=== PATIENT | male | born 1945 | race Caucasian/White ===

== ENCOUNTER 2017-01-19 15:41 | Inpatient (IN) | payer OTHER ==
[2017-01-19] VITALS (8 sets, daily range): BP systolic 100–161; BP diastolic 64–87; PULSE 63–83; TEMP 36.4–37; O2SAT 92–97; Ht 170.2 cm; Wt 66.3 kg
[~2017-01-19] VITALS: Ht 170.2 cm; Wt 66.3 kg
[~2017-01-19 15:41] MED LIST: MULT-506 PO
[2017-01-19] MEDS ORDERED: ASPIRIN 324 MG CHEW PO STA (15:57)
[2017-01-19] MEDS ORDERED: NITROGLYCERIN 0.4 MG SL PER TAB CHARGE SL STA ×3 (16:15→16:50)
--- NOTE | 2017-01-19 16:17 | EMERGENCY ROOM VISIT NOTE ---
History Report prepared by Jessica: Cecy Kinney Under the Supervision of: Dr. Mikel Wolf M.D. 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 He notes crushing chest pain when he takes a deep breath. He currently rates his pain an 8/10 in severity. He notes mild 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 He denies chest injuries, nausea, vomiting. He notes a history of CAD and rheumatic fever. He denies taking any medication for his pain. He denies a history of blood clots. He notes having chest pain before, though not with 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 He states that he needs a heart valve replacement surgery. He regularly sees a senior maintenance machinist, Dr. Milton. He notes that he has not been able to get the surgery done, because of his 's medical needs. He states that his three days ago. He notes a heart murmur. His PCP is Dr. Burns. He has NKDA. He denies taking any aspirin. 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 Review of Systems See HPI for pertinent positives & negatives. A total of 10 systems reviewed and were otherwise negative. Past Medical & Surgical Medical Problems: (1) Aortic stenosis (2) Dyslipidemia (3) Nasopharyngeal carcinoma Surgical Problems: (1) H/O shoulder surgery (2) History of cataract surgery (3) History of tonsillectomy Old medical records were reviewed. Nurse's notes were reviewed and I agree with. Family History No pertinent family history reported. Social History Smoking Status: Former Smoker Alcohol Use: none Drug Use: none Housing Status: lives alone Occupation Status: employed Current/Historical Medications Scheduled Atorvastatin (Atorvastatin Calcium), 20 MG PO DAILY Multivitamin (Multivitamin), 1 TAB PO NOON Allergies Coded Allergies: No Known Allergies (Verified , 03/19/15) Physical Exam Vital Signs Date Time Temp Pulse Resp B/P (MAP) Pulse Ox O2 Delivery O2 Flow Rate FiO2 01/19/17 17:35 37.0 84 21 119/76 94 01/19/17 17:16 84 21 94 01/19/17 17:11 88 15 96 01/19/17 17:01 119/76 01/19/17 16:57 128/76 01/19/17 16:53 112/72 01/19/17 16:41 88 93 01/19/17 16:36 161/95 01/19/17 16:21 89 01/19/17 16:20 99 Room Air 01/19/17 16:11 95 16 01/19/17 15:44 37.0 82 20 181/82 99 Room Air Physical Exam General: Uncomfortably appearing older male in no acute distress. Complains of central chest pain. HEENT: Normal cephalic atraumatic. Pupils are equal round and reactive to light. Extraocular movements are intact. Oropharynx is pink with moist mucous membranes. No swelling of the mouth lips or tongue. Neck: Supple with a midline trachea. No meningeal signs or stiffness, no JVD or bruits. No Stridor. Chest: Clear to auscultation bilaterally. No wheezes or rhonchi. No increased work of breathing. No acute respiratory distress. Heart: regular rate and rhythm. Abdomen: Soft nontender, nondistended without rebound guarding or rigidity. Extremities: No cyanosis clubbing or edema. No calf tenderness or assymetry Spine/Back. Non tender to palpation. No CVA tenderness Skin: Good turgor without rashes. Neurologic exam: Cranial nerves two through 12 are intact. Motor and sensation are intact and symmetrical throughout. Medical Decision & Procedures ER Provider Diagnostic Interpretation: Radiology results as stated below per my review and radiologist interpretation: CHEST ONE VIEW PORTABLE HISTORY: 71 years-old Male CHEST PAIN acute atypical chest pain COMPARISON: Chest radiograph 09/14/2013 TECHNIQUE: Portable AP view of the chest FINDINGS: Cardiomediastinal and hilar silhouettes are within normal limits. Atherosclerosis of the aorta. No pneumothorax, pleural effusion, focal airspace consolidation or overt pulmonary edema. Bones of the chest appear grossly intact. Degenerative changes are seen within the shoulders and spine. IMPRESSION: No acute cardiopulmonary process. The above report was generated using voice recognition software. It may contain grammatical, syntax or spelling errors. Electronically signed by: Raul Cloud M.D. 01/19/2017 4:38 PM Dictated Date/Time: 01/19/2017 4:37 PM Laboratory Results 01/19/17 16:18 Red Blood Count 5.39, Mean Corpuscular Volume 88.5, Mean Corpuscular Hemoglobin 31.7, Mean Corpuscular Hemoglobin Concent 35.8, Mean Platelet Volume 9.5, Neutrophils (%) (Auto) 73.2, Lymphocytes (%) (Auto) 12.2, Monocytes (%) (Auto) 13.1, Eosinophils (%) (Auto) 0.9, Basophils (%) (Auto) 0.2, Neutrophils # (Auto ) 5.86, Lymphocytes # (Auto) 0.98, Monocytes # (Auto) 1.05, Eosinophils # (Auto ) 0.07, Basophils # (Auto) 0.02 01/19/17 16:18 Test 01/19/17 16:18 01/19/17 16:25 White Blood Count 8.01 K/uL (4.8-10.8) Red Blood Count 5.39 M/uL (4.7-6.1) Hemoglobin 17.1 g/dL (14.0-18.0) Hematocrit 47.7 % (42-52) Mean Corpuscular Volume 88.5 fL (80-100) Mean Corpuscular Hemoglobin 31.7 pg (25-34) Mean Corpuscular Hemoglobin Concent 35.8 g/dl (32-36) Platelet Count 209 K/uL (130-400) Mean Platelet Volume 9.5 fL (7.4-10.4) Neutrophils (%) (Auto) 73.2 % Lymphocytes (%) (Auto) 12.2 % Monocytes (%) (Auto) 13.1 % Eosinophils (%) (Auto) 0.9 % Basophils (%) (Auto) 0.2 % Neutrophils # (Auto) 5.86 K/uL (1.4-6.5) Lymphocytes # (Auto) 0.98 K/uL (1.2-3.4) Monocytes # (Auto) 1.05 K/uL (0.11-0.59) Eosinophils # (Auto) 0.07 K/uL (0-0.5) Basophils # (Auto) 0.02 K/uL (0-0.2) RDW Standard Deviation 45.1 fL (36.4-46.3) RDW Coefficient of Variation 13.9 % (11.5-14.5) Immature Granulocyte % (Auto) 0.4 % Immature Granulocyte # (Auto) 0.03 K/uL (0.00-0.02) Prothrombin Time 10.2 SECONDS (9.0-12.0) Prothromb Time International Ratio 1.0 (0.9-1.1) Activated Partial Thromboplast Time 30.6 SECONDS (21.0-31.0) Partial Thromboplastin Ratio 1.2 D-Dimer 580 ug/L FEU (0-500) Anion Gap 7.0 mmol/L (3-11) Est Creatinine Clear Calc Drug Dose 47.6 ml/min Estimated GFR () 71.8 Estimated GFR (Non- 61.9 BUN/Creatinine Ratio 9.9 (10-20) Calcium Level 9.4 mg/dl (8.5-10.1) Total Bilirubin 0.5 mg/dl (0.2-1) Direct Bilirubin 0.2 mg/dl (0-0.2) Aspartate Amino Transf (AST/SGOT) 23 U/L (15-37) Alanine Aminotransferase (ALT/SGPT) 20 U/L (12-78) Alkaline Phosphatase 89 U/L (45-117) Total Creatine Kinase 118 U/L (39-308) Creatine Kinase MB 3.3 ng/ml (0.5-3.6) Creatine Kinase MB Ratio 2.8 (0-3.0) Total Protein 8.0 gm/dl (6.4-8.2) Albumin 3.5 gm/dl (3.4-5.0) Lipase 245 U/L (73-393) Bedside Troponin I < 0.030 ng/ml (0-0.045) Laboratory studies as stated above per my review. Medications Administered Medications (Trade) Dose Ordered Sig/Nestor Route Start Time Stop Time Status Last Admin Dose Admin Aspirin (Aspirin Chew) 324 mg NOW STAT PO 01/19/17 15:57 01/19/17 15:59 DC 01/19/17 16:07 324 MG Nitroglycerin (Nitrostat Tab) 0.4 mg NOW STAT SL 01/19/17 16:25 12/13/17 16:26 DC 01/19/17 16:25 0.4 MG Nitroglycerin (Nitrostat Tab) 0.4 mg NOW STAT SL 01/19/17 16:50 01/19/17 16:51 DC 01/19/17 16:50 0.4 MG ECG Indication: chest pain Rate (beats per minute): 94 Rhythm: normal sinus Findings: LBBB, other (J point elevation) Change: Rate has increased when compared to 09/10/2013. Repeat ECG shows NSR 89 with findings: LBBB and J point elevation. It is unchanged from previous. ED Course 1550: Past medical records reviewed. The patient was evaluated in room B2, and a complete history and physical examination were performed. 1557: Ordered Aspirin 324 mg PO 1615: Ordered Nitroglycerin 0.4 mg SL 1622: I spoke with Dr. Muhammad, senior maintenance machinist. We discussed the patients case. He agrees with the patient's treatment plan and recommends NTG. 1625: Ordered Nitroglycerin 0.4 mg SL 1650: Ordered Nitroglycerin 0.4 mg SL 1658: I reassessed the patient at this time. He is resting comfortably. 1710: I spoke with Dr. Gonzales, senior maintenance machinist. We discussed the patients case. He will perform an echocardiogram on the patient. 1720: I reassessed the patient. Dr. Gonzales performed an echocardiogram and feels anterior wall is not moving. I called for code Heart Alert. 1724: Dr. Eddy, cardiac interventionalist, assessed the patent. 1715: I spoke with CATHERINE Rivers. We discussed the patient's case. The patient will be evaluated by the [facility] for further management. Medical Decision Differentials include, but are not limited to; arrhythmia, PE, and pulmonary disease. This patient comes in as described above. He was placed in room B2. Here for treatment and evaluation of chest pain. He does have a history of valvular heart disease and I reviewed his records from local [facility]. He has severe aortic stenosis and is scheduled to have further evaluation and likely surgery however this is been put on hold as his was recently very ill and last week. EKG was obtained and shows a left bundle branch block which is new there is some possible ST elevation anteriorly but the J-point is up.. On his second EKG and if anything it looks better the T wave amplitude is less. He was given aspirin. I did give him a nitroglycerin per cautiously as I was concerned about reducing his preload this helped his pain somewhat and his pressure came down only a little bit. He was given a second nitroglycerin and this helped greatly is well healed with continued having some mild chest pain however chest x-ray was unremarkable. Cardiac biomarkers are not elevated and he has normal enzymes. I did discuss case with Dr. James Muhammad as well as Aliyah Park. Dr. Gonzales promptly came and saw the patient and did a bedside echo and was concerned that his anterior wall was not moving and recommended to call heart alert. I call the heart alert and the Warehouse Distribution Manager team with Dr. Eddy came over very quickly and are going to take him to the Warehouse Distribution Manager for further treatment and evaluation and intervention if necessary. Medication Reconcilliation Current Medication List: was personally reviewed by me Blood Pressure Screening Patient's blood pressure: Normal blood pressure Consults Time Called: 1618 Consulting Physician: Dr. Muhammad senior maintenance machinist. Returned Call: [address] Muhammad, senior maintenance machinist. We discussed the patients case. He agrees with the patient's treatment plan and recommends NTG. Additional Consults: Time Called: 1705 Consulted Physician: Dr. Gonzales, senior maintenance machinist Returned Call: 1710 Additional Comments: I spoke with Dr. Gonzales, senior maintenance machinist. We discussed the patients case. He will perform an echocardiogram on the patient. Impression Primary Impression: Acute [place] Additional Impressions: ACS (acute coronary syndrome) Aortic stenosis Precordial chest pain Left bundle branch block (LBBB) Critical Care I have personally spent greater than 45 minutes of critical care time in the direct management of this patient. This includes bedside care, interpretation of diagnostic studies, and testing, discussion with consultants, patient, and family members, and other required patient management activities. This 45 minutes is in excess of all separately billable procedures. Scribe Attestation The scribe's documentation has been prepared under my direction and personally reviewed by me in its entirety. I confirm that the note above accurately reflects all work, treatment, procedures, and medical decision making performed by me. Departure Information Dispostion Being Evaluated By Hospitalist Referrals Prudencio Burns III, M.D. (PCP) Patient Instructions My [facility] Problem Qualifiers
[2017-01-19 16:32] LABS: BASO % 0.2 %; BASO ABS # 0.02 K/uL (0-0.2); COMPLETE YES; EOS % 0.9 %; HEMATOCRIT 47.7 % (42-52); IG% 0.4 %; LYMPH % 12.2 %; LYMPH ABS # 0.98 K/uL (1.2-3.4); MEAN CELL VOLUME 88.5 fL (80-100); MEAN CORPUSCULAR HEMOGLOBIN 31.7 pg (25-34); MEAN CORPUSCULAR HGB CONC 35.8 g/dl (32-36); MEAN PLATELET VOLUME 9.5 fL (7.4-10.4); MONO % 13.1 %; NEUT % 73.2 %; PLATELET COUNT 209 K/uL (130-400); RED BLOOD COUNT 5.39 M/uL (4.7-6.1); WHITE BLOOD COUNT 8.01 K/uL (4.8-10.8)
--- NOTE | 2017-01-19 16:39 | DIAGNOSTIC IMAGING REPORT ---
CHEST ONE VIEW PORTABLE HISTORY: 71 years-old Male CHEST PAIN acute atypical chest pain COMPARISON: Chest radiograph 09/14/2013 TECHNIQUE: Portable AP view of the chest FINDINGS: Cardiomediastinal and hilar silhouettes are within normal limits. Atherosclerosis of the aorta. No pneumothorax, pleural effusion, focal airspace consolidation or overt pulmonary edema. Bones of the chest appear grossly intact. Degenerative changes are seen within the shoulders and spine. IMPRESSION: No acute cardiopulmonary process. The above report was generated using voice recognition software. It may contain grammatical, syntax or spelling errors. Electronically signed by: Raul Cloud M.D. 01/19/2017 4:38 PM Dictated Date/Time: 01/19/2017 4:37 PM
[2017-01-19 16:46] LABS: PARTIAL THROMBOPLASTIN RATIO 1.2; PROTHROMBIN TIME (PATIENT) 10.2 SECONDS (9.0-12.0)
[2017-01-19 16:49] LABS: BUN/CREATININE RATIO 9.9 (10-20); CALCIUM 9.4 mg/dl (8.5-10.1); CREATININE 1.17 mg/dl (0.60-1.40); POTASSIUM 3.9 mmol/L (3.5-5.1)
[2017-01-19 16:54] LABS: CKMB/CK RATIO 2.8 (0-3.0)
[2017-01-19] MEDS ORDERED: LPT/20 PO (16:59)
[2017-01-19] MEDS ORDERED: OPTIRAY 320 IV PRN (17:15)
[2017-01-19] MEDS ORDERED: FENTANYL CITRATE INJ 50 MCG/1 ML 2 ML VIAL ONE (17:26)
[2017-01-19] MEDS ORDERED: NiCARDipine HCL INJ 2.5 MG/ML 10 ML AMP ONE (17:26)
[2017-01-19] MEDS ORDERED: HEPARIN SOD (PORCINE) 1000 UNIT/ML 10 ML VIAL ONE (17:26)
[2017-01-19] MEDS ORDERED: NITROGLYCERIN/D5W 100MCG/ML 20ML SYR ONE (17:26)
[2017-01-19] MEDS ORDERED: MIDAZOLAM HCL 1 MG/ML 2ML VIAL ONE (17:26)
--- NOTE | 2017-01-19 17:39 | Procedure Note ---
Pre-Mod Sedation Assessment General Date of Moderate Sedation: Jan 19, 2017. Vital Signs: Vital Signs Past 12 Hours Date Time Temp Pulse Resp B/P (MAP) Pulse Ox O2 Delivery O2 Flow Rate FiO2 01/19/17 17:35 37.0 84 21 119/76 94 01/19/17 17:16 84 21 94 01/19/17 17:11 88 15 96 01/19/17 17:01 119/76 01/19/17 16:57 128/76 01/19/17 16:53 112/72 01/19/17 16:41 88 93 01/19/17 16:36 161/95 01/19/17 16:21 89 01/19/17 16:20 99 Room Air 01/19/17 16:11 95 16 01/19/17 15:44 37.0 82 20 181/82 99 Room Air Review Cardiovascular: regular rate, rhythm, no edema Abdomen: normal bowel sounds, non tender Lungs: chest non-tender, lungs clear Airway Class: III Pre-Sedation Airway Assessment Oral Cavity: WNL Able to Visualize Vocal Cords: No Short Thick Neck: No Hx of Sleep Apnea: No Smoking Status: Former Smoker Mallampati Classification: Class III ASA Classification: Class III Procedure Planning Contraindications-for Mod Sed: None Yes Notes The planned sedation has been discussed with the patient and consent obtained. I have identified the patient, determined the appropriateness of sedation and have assessed the patient immediately prior to the procedure. All medicine(s) and interventions are by my order.
[2017-01-19] MEDS ORDERED: SODIUM CHLORIDE 0.9% 1000ML 1,000 ML IV SCH (18:15)
[2017-01-19] MEDS ORDERED: ACETAMINOPHEN 325 MG TAB PO PRN (18:30)
--- NOTE | 2017-01-19 18:30 | Cardiac Catheterization ---
Procedure Note Procedure Date Jan 19, 2017. Pre-Procedure Diagnosis STEMI AUC Score 9 Post-Procedure Diagnosis Moderate CAD, Elevated Intracardiac Pressures Procedure(s) Performed Coronary Angiography, Left Heart Cath Director Of Enterprise Strategy Surjit Minute Clerk For Basic Traffic(s) Stan Estimated Blood Loss 10 Medication(s) Fentanyl, Heparin, Versed, Lidocaine 1% Summary of Findings Indication: New LBBB/Heart Alert Access: 6Fr right radial artery Catheters: [place] Findings: LM - Luminal irregularities LAD - 20% proximal, mid segment luminal irregularities, 60-70% stenosis in small apical segment; - 2nd septal with 70% focal stenosis. Circumflex - Large caliber vessel, proximal/mid luminal irregularities. - 40% stenosis in large/distal OM2; branch of OM2 with 60-70% stenosis RCA - Dominant, large caliber vessel, 40-50% ostial stenosis; 20% mid segment disease; distal luminal irregularities. LVEDP - 2 Peak to peak AV gradient -- 74 mmHg Arterial Closure: TR band Summary: 1. Mild to moderate non-obstructive coronary artery disease 2. Severe aortic stenosis (Peak to peak gradient 74 mmHg). Recommendations: Evaluation for AVR Hemodynamics Rest Ao: 121/66/90 Final Ao: 105/62/80 LV: 179/2 Recommendations valve replacement Specimens None Radiation Exposure (mGy) 1096 Contrast (mls) 70 Fluids (cc crystalloids) 50 Drains None Anesthesia Moderate Procedural Complication(s) None Disposition PCU ACC Data Cardiac Status Clinical evaluation leading to the procedure CAD Presntation: Unstable angina Anginal Classification: CCS IV Heart Failure: NYHA Class: CCS I Cardiogenic Shock w/in 24Hrs: No Cardiac Arrest w/in 24Hrs: No Imaging studies past 6 months: Yes Stress studies past 6 months: No Closure Device Percutaneous Entry Location: Radial Closure Device: Radial Band Recommendations: PCI without planned CABG Intraprocedure Events Significant Dissection: No Perforation: No
[2017-01-19] MEDS ORDERED: METOPROLOL TARTRATE 25 MG TAB PO ONE (19:00)
[2017-01-19] MEDS: SODIUM CHLORIDE 0.9% 1000ML 1,000 ML IV SCH (19:10)
[2017-01-19] MEDS ORDERED: PROMETHAZINE HCL INJ 12.5 MG in SODIUM CHLORIDE 0.9% 50ML 50 ML IV PRN (19:45)
[2017-01-19] MEDS ORDERED: ONDANSETRON INJ 2 MG/ML 2 ML VIAL IV PRN (19:45)
--- NOTE | 2017-01-19 20:17 | History and Physical ---
History & Physical Date & Time of Service: Jan 19, 2017 ~ 19:30 Chief Complaint: Chest Pain Primary Care Physician: Prudencio Burns III, M.D. History of Present Illness 71 year old male who presented to the ED with a chief complaint of chest pain. Patient has known aortic valve stenosis however has been putting off the work up due to his being sick. She unfortunately last week. Patient reports he noticed shortness of breath last evening. When he woke up this morning he reports he felt well and the shortness of breath had resolved. However later in the day he developed chest pain. He describes it as a substernal and constant. He then presented to the ED. EKG showed a new LBBB. A heart alert was called and patient was taken to the labor standards director emergently. Cath showed mild to moderate non-obstructive coronary artery disease. Symptoms are felt to be due to severe aortic stenosis. Patient is being admitted overnight with plans to transfer to [facility] in the morning for evaluation of aortic valve replacement. Patient was seen and examined post cath. He is resting in bed in no acute distress. He currently rates his chest discomfort 2/10. He denies 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 No lightheadedness or dizziness. He denies abdominal pain and nausea. No recent illnesses, fever, or chills. He denies urinary symptoms. Vitals are stable. Past Medical/Surgical History Medical Problems: (1) Aortic stenosis Status: Chronic (2) Dyslipidemia Status: Chronic (3) Nasopharyngeal carcinoma Permanent Comment: s/p chemo and radiation Status: Chronic Surgical Problems: (1) H/O shoulder surgery Status: Chronic (2) History of cataract surgery Status: Chronic (3) History of tonsillectomy Status: Chronic Family History FH: liver cancer FATHER Social History Smoking Status: Former Smoker Alcohol Use: none Immunizations History of Tetanus Vaccine?: Yes Tetanus Immunization Date: Aug 03, 2013 History of Pneumococcal: Yes Pneumococcal Date: Jul 20, 2013 Allergies Coded Allergies: No Known Allergies (Verified , 03/19/15) Home Medications Scheduled Atorvastatin (Atorvastatin Calcium), 20 MG PO DAILY Multivitamin (Multivitamin), 1 TAB PO NOON Review of Systems ROS per HPI, all other systems reviewed and negative Physical Exam Vital Signs Date Time Temp Pulse Resp B/P (MAP) Pulse Ox O2 Delivery O2 Flow Rate FiO2 01/19/17 19:30 83 120/80 (93) 01/19/17 19:15 81 119/77 (91) 94 Room Air 01/19/17 19:00 36.4 77 20 161/82 92 Room Air 01/19/17 18:55 37.0 81 20 149/81 (103) 96 Room Air 01/19/17 18:25 83 16 131/84 (100) 96 Room Air 01/19/17 18:20 Room Air 01/19/17 18:15 Room Air 01/19/17 18:12 86 16 121/85 (97) 96 Room Air 01/19/17 17:35 37.0 84 21 119/76 94 01/19/17 17:16 84 21 94 01/19/17 17:11 88 15 96 01/19/17 17:01 119/76 01/19/17 16:57 128/76 01/19/17 16:53 112/72 01/19/17 16:41 88 93 01/19/17 16:36 161/95 01/19/17 16:21 89 01/19/17 16:20 99 Room Air 01/19/17 16:11 95 16 01/19/17 15:44 37.0 82 20 181/82 99 Room Air General Appearance: WD/WN, no apparent distress Head: normocephalic, atraumatic Eyes: normal inspection, EOMI, sclerae normal ENT: + pertinent finding (MINTO; mucous membranes moist) Neck: supple, no JVD, trachea midline Respiratory/Chest: lungs clear, normal breath sounds, no respiratory distress Cardiovascular: regular rate, rhythm, no edema, normal peripheral pulses, + systolic murmur Abdomen/GI: normal bowel sounds, non tender, soft, no organomegaly Extremities/Musculoskelatal: normal inspection, no calf tenderness, normal capillary refill Neurologic/Psych: no motor/sensory deficits, alert, normal mood/affect, oriented x 3 Skin: normal color, warm/dry Diagnostics Laboratory Results Results Past 24 Hours Test 01/19/17 16:18 01/19/17 16:25 Range/Units White Blood Count 8.01 4.8-10.8 K/uL Red Blood Count 5.39 4.7-6.1 M/uL Hemoglobin 17.1 14.0-18.0 g/dL Hematocrit 47.7 42-52 % Mean Corpuscular Volume 88.5 80-100 fL Mean Corpuscular Hemoglobin 31.7 25-34 pg Mean Corpuscular Hemoglobin Concent 35.8 32-36 g/dl Platelet Count 209 130-400 K/uL Mean Platelet Volume 9.5 7.4-10.4 fL Neutrophils (%) (Auto) 73.2 % Lymphocytes (%) (Auto) 12.2 % Monocytes (%) (Auto) 13.1 % Eosinophils (%) (Auto) 0.9 % Basophils (%) (Auto) 0.2 % Neutrophils # (Auto) 5.86 1.4-6.5 K/uL Lymphocytes # (Auto) 0.98 1.2-3.4 K/uL Monocytes # (Auto) 1.05 0.11-0.59 K/uL Eosinophils # (Auto) 0.07 0-0.5 K/uL Basophils # (Auto) 0.02 0-0.2 K/uL RDW Standard Deviation 45.1 36.4-46.3 fL RDW Coefficient of Variation 13.9 11.5-14.5 % Immature Granulocyte % (Auto) 0.4 % Immature Granulocyte # (Auto) 0.03 0.00-0.02 K/uL Prothrombin Time 10.2 9.0-12.0 SECONDS Prothromb Time International Ratio 1.0 0.9-1.1 Activated Partial Thromboplast Time 30.6 21.0-31.0 SECONDS Partial Thromboplastin Ratio 1.2 D-Dimer 580 0-500 ug/L FEU Sodium Level 132 136-145 mmol/L Potassium Level 3.9 3.5-5.1 mmol/L Chloride Level 97 98-107 mmol/L Carbon Dioxide Level 28 21-32 mmol/L Anion Gap 7.0 3-11 mmol/L Blood Urea Nitrogen 12 7-18 mg/dl Creatinine 1.17 0.60-1.40 mg/dl Est Creatinine Clear Calc Drug Dose 47.6 ml/min Estimated GFR () 71.8 Estimated GFR (Non- 61.9 BUN/Creatinine Ratio 9.9 10-20 Random Glucose 94 70-99 mg/dl Calcium Level 9.4 8.5-10.1 mg/dl Total Bilirubin 0.5 0.2-1 mg/dl Direct Bilirubin 0.2 0-0.2 mg/dl Aspartate Amino Transf (AST/SGOT) 23 15-37 U/L Alanine Aminotransferase (ALT/SGPT) 20 12-78 U/L Alkaline Phosphatase 89 45-117 U/L Total Creatine Kinase 118 39-308 U/L Creatine Kinase MB 3.3 0.5-3.6 ng/ml Creatine Kinase MB Ratio 2.8 0-3.0 Total Protein 8.0 6.4-8.2 gm/dl Albumin 3.5 3.4-5.0 gm/dl Lipase 245 73-393 U/L Bedside Troponin I < 0.030 0-0.045 ng/ml Diagnostic Radiology CXR IMPRESSION: No acute cardiopulmonary process. Impression Assessment and Plan CHEST PAIN SEVERE AORTIC STENOSIS - admit to tele - patient presenting with persistent chest pain that started today; in the ED, patient was found to have a new LBBB - heart alert was called and patient was taken emergently to the labor standards director - per Dr. Eddy report: LM - Luminal irregularities LAD - 20% proximal, mid segment luminal irregularities, 60-70% stenosis in small apical segment; - 2nd septal with 70% focal stenosis. Circumflex - Large caliber vessel, proximal/mid luminal irregularities. - 40% stenosis in large/distal OM2; branch of OM2 with 60-70% stenosis RCA - Dominant, large caliber vessel, 40-50% ostial stenosis; 20% mid segment disease; distal luminal irregularities. Summary: 1. Mild to moderate non-obstructive coronary artery disease 2. Severe aortic stenosis (Peak to peak gradient 74 mmHg). Recommendations: Evaluation for AVR - admit overnight with plans to transfer to [facility] for AVR - no signs of volume overload - beta reggie started by cardiology HLD - continue statin DVT PROPHYLAXIS - SCDs due to recent procedure DISPO - In my clinical judgment this beneficiary meets acute admission criteria, established by [facility], that includes being hospitalized through two midnights. - plans for transfer to [facility] for evaluation for AVR ADDENDUM: This is a 71 year old male with a PMH of severe aortic stenosis, HLD presents secondary to severe chest pain. As per patient, his on Tuesday, 01/16. He was doing fine until the evening of 01/18. In the morning of 01/19, his chest pain became severe and he presented to the ER. EKG suggested possible new LBBB. A heart alert was called and patient taken straight to the labor standards director. In the labor standards director, there was some CAD disease noted, but no intervention performed, recommended medical management and management of severe aortic stenosis. He was brought back to tele and an external defibrillator pad placed. He is now comfortable and no chest pain. 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 Y/N: Yes Risk Level: Moderate
[2017-01-19] MEDS ORDERED: PNEUMOCOCCAL ADMINISTRATION CHARGE ONE (21:15)
[2017-01-19] MEDS ORDERED: INFLUENZA ADMINISTRATION CHARGE ONE (21:15)
[2017-01-19] MEDS ORDERED: PNEUMOCOCCAL POLYSACCHARIDES 25 MCG/0.5 ML VIAL/SYR IM. ONE (21:15)
[2017-01-19] MEDS ORDERED: INFLUENZA VACCINE HIGH DOSE 65+ 0.5 ML SYR IM. ONE (21:15)
[2017-01-19] MEDS: METOPROLOL TARTRATE 25 MG TAB PO SCH (23:27)
[2017-01-20] VITALS (7 sets, daily range): BP systolic 112–144; BP diastolic 64–85; PULSE 61–73; TEMP 36.7–37.1; O2SAT 96–97
[2017-01-20] MEDS: SODIUM CHLORIDE 0.9% 1000ML 1,000 ML IV SCH (05:27)
[2017-01-20 06:08] LABS: MEAN CELL VOLUME 89.2 fL (80-100); MEAN CORPUSCULAR HEMOGLOBIN 30.9 pg (25-34); MEAN CORPUSCULAR HGB CONC 34.7 g/dl (32-36); MEAN PLATELET VOLUME 9.4 fL (7.4-10.4); PLATELET COUNT 195 K/uL (130-400); RED BLOOD COUNT 4.82 M/uL (4.7-6.1); WHITE BLOOD COUNT 7.18 K/uL (4.8-10.8)
[2017-01-20] MEDS: METOPROLOL TARTRATE 25 MG TAB PO SCH ×2 (06:21→12:11)
[2017-01-20 06:34] LABS: CALCIUM 8.2 mg/dl (8.5-10.1); CREATININE 0.8 mg/dl (0.60-1.40); POTASSIUM 3.9 mmol/L (3.5-5.1)
[2017-01-20] MEDS ORDERED: MULTIVITAMIN TAB PO SCH (09:00)
[2017-01-20] MEDS ORDERED: ASPIRIN 81 MG ECTAB PO SCH (09:00)
[2017-01-20] MEDS ORDERED: ATORVASTATIN 20 MG TAB PO SCH ×2 (09:00)
--- NOTE | 2017-01-20 09:41 | ECHOCARDIOGRAM REPORT ---
*NOTICE TO RECEIVING [employer] This information is strictly Confidential and protected under [place] law. [place] law prohibits you from making any further disclosure of this information unless further disclosure is expressly permitted by the written consent of the person to whom it pertains or is authorized by law. A general authorization for the release of medical or other information is not sufficient for this purpose. Hospital accepts no responsibility if the information is made available to any other person, INCLUDING THE PATIENT. Interpretation Summary * Conclusions -- * Mildly dilated LV chamber size and mild concentric LVH. * Severely reduced LV systolic function with abnormal septal wall motion consistent with conduction abnormality and global hypokinesis, EF 30-35%. * Grade I diastolic dysfunction. * Severely calcified aortic valve with severely reduced systolic opening. Unable to determine number of leaflets. Severe aortic stenosis is present with a Vmax of 4.6 m/s, SERGIO of 0.5 cm2 and PG max of 80 mmHg. However, stenosis maybe falsely lowered due to reduced systolic function. * There is mild mitral annular calcification. The mitral valve leaflets appear thickened, but open well. There is mild mitral regurgitation. There is mild mitral stenosis. * Mild left atrial enlargement. Procedure Details * A complete two-dimensional transthoracic echocardiogram was performed (2D, M-mode, Doppler and color flow Doppler). Left Ventricle * The left ventricle is mildly dilated. * There is mild concentric left ventricular hypertrophy. * Ejection Fraction = 30-35%. * Left ventricular systolic function is severely reduced. * Septal motion is consistent with conduction abnormality. * There is moderate global hypokinesis of the left ventricle. Right Ventricle * The right ventricular cavity size is normal (basal dimension <4.2 cm in right ventricular apical 4-chamber view). * The right ventricular systolic function is normal as assessed by tricuspid annular plane systolic excursion (TAPSE) (normal >1.5 cm). Atria * The left atrial size is normal. * Right atrial size is normal. * No ASD detected; PFO is not assessed. Mitral Valve * There is mild mitral annular calcification. * The mitral valve leaflets appear thickened, but open well. * There is mild mitral stenosis. * There is mild mitral regurgitation. Tricuspid Valve * The tricuspid valve is normal in structure and function. Aortic Valve * Severely calcified aortic valve with severely reduced systolic opening. Unable to determine number of leaflets. Severe aortic stenosis is present with a Vmax of 4.6 m/s, SERGIO of 0.5 cm2 and PG max of 80 mmHg. However, stenosis maybe falsely lowered due to reduced systolic function. Pulmonic Valve * The pulmonary valve is not well seen, but the Doppler examination is normal without significant regurgitation or stenosis. Great Vessels * The aortic root is normal size. Pericardium/Pleural * There is no pericardial effusion. Left Ventricular Diastolic Function * Grade I diastolic dysfunction, (abnormal relaxation pattern). MMode 2D Measurements and Calculations IVSd 1.0 cm IVSs 1.3 cm LVIDd 4.5 cm LVIDs 3.6 cm LVPWd 1.0 cm LVPWs 1.2 cm IVS/LVPW 1.0 FS 20.4 % EDV(Teich) 93.0 ml ESV(Teich) 54.1 ml EF(Teich) 41.9 % EDV(cubed) 91.9 ml ESV(cubed) 46.3 ml EF(cubed) 49.6 % % IVS thick 23.8 % % LVPW thick 21.7 % LV mass(C)d 160.6 grams LV mass(C)dI 95.4 grams/m\S\2 LV mass(C)s 153.1 grams LV mass(C)sI 90.9 grams/m\S\2 SV(Teich) 38.9 ml SI(Teich) 23.1 ml/m\S\2 SV(cubed) 45.6 ml SI(cubed) 27.1 ml/m\S\2 Ao root diam 3.0 cm Ao root area 6.9 cm\S\2 LA dimension 3.4 cm LA/Ao 1.1 LVOT diam 2.0 cm LVOT area 3.3 cm\S\2 EDV(MOD-sp4) 144.0 ml ESV(MOD-sp4) 97.0 ml EF(MOD-sp4) 32.6 % EDV(MOD-sp2) 146.0 ml ESV(MOD-sp2) 100.0 ml EF(MOD-sp2) 31.5 % SV(MOD-sp4) 47.0 ml SI(MOD-sp4) 27.9 ml/m\S\2 SV(MOD-sp2) 46.0 ml SI(MOD-sp2) 27.3 ml/m\S\2 Doppler Measurements and Calculations MV E max arielle 107.5 cm/sec MV A max arielle 127.4 cm/sec MV E/A 0.84 MV P1/2t max arielle 99.8 cm/sec MV P1/2t 106.7 msec MVA(P1/2t) 2.1 cm\S\2 MV dec slope 273.8 cm/sec\S\2 MV dec time 0.17 sec Ao V2 max 446.6 cm/sec Ao max PG 79.8 mmHg Ao max PG (full) 78.0 mmHg Ao V2 mean 313.2 cm/sec Ao mean PG 46.1 mmHg Ao mean PG (full) 45.1 mmHg Ao V2 VTI 105.1 cm SERGIO(I,A) 0.55 cm\S\2 SERGIO(I,D) 0.55 cm\S\2 SERGIO(V,A) 0.50 cm\S\2 SERGIO(V,D) 0.50 cm\S\2 AI max arielle 343.3 cm/sec AI max PG 47.2 mmHg AI dec slope 229.5 cm/sec\S\2 AI P1/2t 438.1 msec LV V1 max PG 1.9 mmHg LV V1 mean PG 0.97 mmHg LV V1 max 68.4 cm/sec LV V1 mean 46.8 cm/sec LV V1 VTI 17.5 cm SV(Ao) 727.1 ml SI(Ao) 431.8 ml/m\S\2 SV(LVOT) 57.7 ml SI(LVOT) 34.3 ml/m\S\2 PA V2 max 138.9 cm/sec PA max PG 7.7 mmHg TR max arielle 226.8 cm/sec
[2017-01-20] MEDS ORDERED: OPTIRAY 320 IV PRN (10:00)
--- NOTE | 2017-01-20 10:10 | Hospitalist Progress Note ---
Hospitalist Progress Note Date of Service Jan 20, 2017. (Susan Park CRNP) Subjective Patient seen and examined. Reports chest pain has resolved however is having mid back pain. Describes it as deep. Denies 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 No lightheadedness or dizziness. Denies abdominal pain and nausea. (Susan Park CRNP) Objective Vital Signs Date Time Temp Pulse Resp B/P (MAP) Pulse Ox O2 Delivery O2 Flow Rate FiO2 01/20/17 08:07 37.0 68 20 138/64 (88) 96 Room Air 01/20/17 06:20 112/70 (84) 01/20/17 04:00 Room Air (Susan Park CRNP) Physical Exam General Appearance: WD/WN, no apparent distress Respiratory/Chest: lungs clear, normal breath sounds, no respiratory distress Cardiovascular: regular rate, rhythm, no edema, + systolic murmur Abdomen: normal bowel sounds, non tender, soft Neurologic/Psychiatric: no motor/sensory deficits, alert, oriented x 3 Skin: normal color, warm/dry (Susan Park CRNP) Laboratory Results Item Value Date Time White Blood Count 7.18 K/uL 01/20/17 0517 Hemoglobin 14.9 g/dL 01/20/17 0517 Hematocrit 43.0 % 01/20/17 0517 Platelet Count 195 K/uL 01/20/17 0517 Sodium Level 134 mmol/L L 01/20/17 0517 Potassium Level 3.9 mmol/L 01/20/17 0517 Blood Urea Nitrogen 10 mg/dl 01/20/17 0517 Creatinine 0.80 mg/dl # 01/20/17 0517 (Susan Park CRNP) Diagnostic Results ECHO: Mildly dilated LV chamber size and mild concentric LVH. * Severely reduced LV systolic function with abnormal septal wall motion consistent with conduction abnormality and global hypokinesis, EF 30-35%. * Grade I diastolic dysfunction. * Severely calcified aortic valve with severely reduced systolic opening. Unable to determine number of leaflets. Severe aortic stenosis is present with a Vmax of 4.6 m/s, SERGIO of 0.5 cm2 and PG max of 80 mmHg. However, stenosis maybe falsely lowered due to reduced systolic function. * There is mild mitral annular calcification. The mitral valve leaflets appear thickened, but open well. There is mild mitral regurgitation. There is mild mitral stenosis. * Mild left atrial enlargement (Susan Park CRNP) Assessment and Plan CHEST PAIN SEVERE AORTIC STENOSIS - patient presented to the ED on 01/19 with persistent chest pain; was found to have a new LBB - heart alert was called and patient was taken emergently to the bottle label inspector - patient is reporting mid back pain today; will obtain CT angio to rule out dissection - per Dr. Eddy cath report: LM - Luminal irregularities LAD - 20% proximal, mid segment luminal irregularities, 60-70% stenosis in small apical segment; - 2nd septal with 70% focal stenosis. Circumflex - Large caliber vessel, proximal/mid luminal irregularities. - 40% stenosis in large/distal OM2; branch of OM2 with 60-70% stenosis RCA - Dominant, large caliber vessel, 40-50% ostial stenosis; 20% mid segment disease; distal luminal irregularities. Summary: 1. Mild to moderate non-obstructive coronary artery disease 2. Severe aortic stenosis (Peak to peak gradient 74 mmHg). Recommendations: Evaluation for AVR - echo as above - no signs of volume overload - beta reggie started by cardiology yesterday - continue ASA and statin DVT PROPHYLAXIS - SCDs due to recent procedure DISPO - pending - likely transfer to [facility] for evaluation for AVR (Susan Park CRNP) ATTENDING NOTE : pt seen and examined, no complain of chest pain or SOB today in agreement for transfer to [place] for Cardiothoracic surgery for aortic valve replacement in agreement with above evaluation by Susan ALEXANDER 71 Yo m admitted with Chest pain , EKG shows new LBBB , code heart alert was called s/p emergent Cardiac cath ; shows severe Aortic stenosis appreciate input form Cardiology pt is being transferred to [facility] for evaluation of Aortic valve repair (Sweta Saeed M.D.)
--- NOTE | 2017-01-20 10:25 | CARDIOLOGY CONSULTATION ---
DATE OF CONSULTATION: 01/19/2017 CONSULTATION REQUESTED BY: Dr. Wolf. REASON FOR CONSULTATION: Chest pain with new left bundle-branch block. HISTORY OF PRESENT ILLNESS: Mr. Dodson is a very pleasant 71-year-old gentleman who has been following closely with Dr. Milton of our cardiology clinic for his history of severe aortic stenosis. The patient presented to [facility] on 01/19/[address] Milton's office after he called with a complaint of chest pain. The patient was actually calling the office to let Dr. Milton know that his had passed and he was ready to schedule his aortic valve surgery, but he did also note on the phone that he was having chest pain and he was directed to go the Emergency Department. The patient states that approximately 02:00 p.m. yesterday, he started having severe chest pain. He states he was very busy, doing things around the house when he had severe left substernal chest pain. He described it as a pressure sensation and ranked at 8.5/10. He states that it may have been worse with deep inhalation, but he was pretty short of breath with it and states he was unable to take a deep satisfying breath. He presented to the [facility] Emergency Department, where he was found to have a new left bundle branch on EKG. He was given sublingual nitroglycerin x2 and aspirin and his pain improved from 8.5-4/10. He was seen emergently at the bedside. EKG was confirmed to be new left bundle branch block compared to previous studies. A bedside echocardiogram was performed by myself, which showed significant hypokinesis with questionable akinesis at the anterior wall. At that point, heart alert was called and he was taken emergently to cardiac catheterization lab by Dr. Eddy. Of note, the patient has a longstanding history of aortic stenosis and he was counseled previously by Dr. Milton that he will require surgery. 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 His unfortunately passed several days ago and again, he was going to let the office know that he was ready to proceed with pursuing aortic valve replacement. PAST SURGICAL HISTORY: 1. Alveoloplasty in conjunction with extraction. 2. Tonsillectomy. 3. Radiation therapy to a large tumor involving the lateral pharyngeal wall, the oropharynx, palate and nasopharynx. 4. Multiple laryngoscopies. 5. . 6. Colonoscopy. 7. Shoulder surgery. 8. Tooth extractions. 9. Cataract surgeries. MEDICAL ILLNESSES: 1. Severe aortic stenosis. 2. History of rheumatic fever as a child. 3. Likely bicuspid aortic valve. 4. 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 5. Tobacco abuse, resolved. 6. Dyslipidemia. FAMILY HISTORY: Noncontributory. SOCIAL HISTORY: The patient is a long-term smoker, quit in 2013. Denies alcohol or recreational drug use. Again, his only recently after a long ward with metastatic breast carcinoma. REVIEW OF SYSTEMS: As per HPI. All other systems reviewed and negative at this time. ALLERGIES: No known drug allergies. MEDICATIONS AN OUTPATIENT: 1. Atorvastatin 20 mg daily. 2. Multivitamin. PHYSICAL EXAMINATION: VITALS: Temperature 37, pulse 90, respiratory rate 12, and blood pressure 161/95. GENERAL: Awake, alert, and oriented x3. Mild distress. HEENT: Normocephalic and atraumatic. Pupils equal, round, and reactive to light and accommodation. Extraocular muscles intact. Anicteric sclerae. Poor dentition with a palatal prosthesis in place. NECK: No JVD and no bruit. CARDIOVASCULAR: Regular. Positive S4. Normal S1. S2 is not present. Questionable S3. Soft 3/6 mid to late systolic ejection murmur greatest at the right sternal border second intercostal space with radiation to the bilateral carotids. No rubs. PULMONARY: Poor air movement bilaterally, but clear. No rales, rhonchi, or wheezing. ABDOMEN: Bowel sounds x4. Soft. No rebound, guarding, or tenderness. No organomegaly. EXTREMITIES: No clubbing, cyanosis or edema. +2 pedal pulses bilaterally. SKIN: Warm and dry. TEST RESULTS: A 12-lead EKG performed in the Emergency Department independently reviewed at this time shows sinus rhythm at 94 beats per minute with left bundle branch block with left axis deviation and questionable anterior ST segment elevations. Left bundle branch block and elevations are new compared to previous study. Most recent echocardiogram performed on 12/2015 showed, compared to last available studies aorta velocities have increased. Normal LV chamber size with mild concentric LVH, normal LV systolic function, EF 55%-60%, mild hypokinesis of the basal anterior septal wall. Otherwise, normal wall motion. Grade 1 diastolic dysfunction. Heavily calcified aortic valve. Unable to discern number of leaflets. Severe aortic stenosis is present with the V-max of 4.6 m/s. Mild aortic regurgitation. Cardiac catheterization revealed no significant obstructive coronary artery disease with a [id number] gradient of 74 mmHg. IMPRESSION: 1. Severe symptomatic aortic stenosis. 2. New left bundle branch block. 3. Reduced LV systolic function. 4. No significant obstructive coronary artery disease. 5. Oropharyngeal carcinoma, status post chemo and radiation treatment. RECOMMENDATIONS: It was my pleasure to see Mr. Dodson in urgent consultation today. Given the patient's complaints of chest pain and new left bundle branch block, heart alert was called and proper protocol was followed. Fortunately, the catheterization shows no significant obstructive disease. So at this point, we will start the patient on low dose beta reggie and gentle IV fluids to augment his preload. A full echocardiogram will be performed. The patient will likely be transferred to [facility] for evaluation of aortic valve replacement with either open heart surgery with valve replacement or TAVR.
--- NOTE | 2017-01-20 10:48 | Cardiology Follow-Up ---
Subjective Subjective Date of Service: Jan 20, 2017. Pt evaluation today including: conversation w/ patient, physical exam, chart review, lab review, review of studies, review of inpatient medication list Additional Details: Pt seen and examined, states that he's feeling "ok". Some back pain overnight but resolved and chest pain resolved. Rather depressed and tearful at times in regards to 's recent passing but otherwise feels well. Tele reviewed: sinus rhythm without arrhythmia or significant ectopy. Problem List Medical Problems: (1) ACS (acute coronary syndrome) Status: Acute (2) Acute SC Status: Acute (3) Aortic stenosis Status: Chronic (4) Left bundle branch block (LBBB) Status: Acute (5) Precordial chest pain Status: Acute Review of Systems Respiratory: + shortness of breath, + dyspnea on exertion, No see HPI, No cough , No sputum, No wheezing, No dyspnea at rest, No hemoptysis, No problem reported Cardiac: + chest pain, No see HPI, No orthopnea, No PND, No edema, No claudication, No palpitations, No problem reported Objective Vital Signs Last Vital Signs Documentation Date Time Temp Pulse Resp B/P (MAP) Pulse Ox O2 Delivery O2 Flow Rate FiO2 01/20/17 08:07 37.0 68 20 138/64 (88) 96 Room Air Physical Exam: General Appearance: WD/WN, no apparent distress Eyes: bilateral eyes normal inspection, bilateral eyes PERRL, bilateral eyes EOMI ENT: normal ENT inspection, hearing grossly normal, pharynx normal Neck: supple, no adenopathy, thyroid normal, no JVD, no carotid bruits, trachea midline Respiratory/Chest: lungs clear, normal breath sounds, no respiratory distress Cardiovascular: regular rate, rhythm, no edema, no JVD, + systolic murmur ( soft 3/6 mid to late ricky, rsb, 2nd ics with radiation to b/l carotids. S2 is not present on exam), + gallop/S3 (?), + gallop/S4 Abdomen: normal bowel sounds, non tender, soft, no organomegaly Extremities: normal inspection, no pedal edema, no calf tenderness Neurologic/Psychiatric: clip riveter II-XII nml as tested, no motor/sensory deficits, alert, normal mood/affect, oriented x 3 Skin: normal color, warm/dry Lymphatic: no adenopathy Assessment and Plan 1. severe symptomatic aortic stenosis long standing history of severe with underlying bicuspid aortic valve and rheumatic fever as a child severe gradients persist even with deterioration of LV systolic function now symptomatic pt is ready for surgery no obstructive disease on cath will transfer to [facility] for aortic valve replacement ENT eval and recommendations will be necessary given hx of nasopharyngeal carcinoma and likely difficulty with intubation Dr. Varela has accepted patient for transfer 2. NICM secondary to severe aortic stenosis cont metoprolol hold off other meds for now for ground transfer to [facility] today
[2017-01-20] MEDS ORDERED: LPR25 PO (11:04)
[2017-01-20] MEDS ORDERED: ASPEC81 PO (11:04)
--- NOTE | 2017-01-20 11:21 | DIAGNOSTIC IMAGING REPORT ---
Study: CT angiography of the chest HISTORY: Chest and back pain. FINDINGS: Moderate atherosclerotic change thoracic aorta. Mild ectasia. No evidence for aneurysm or dissection. Origins of the great thousand and the aortic arch is unremarkable. No evidence for true aneurysm or dissection. Moderate narrowing origin celiac axis estimated 50%. Probable small meningioma anterior aspect left hepatic lobe. Lungs are considered clear. No focal infiltrative or significant nodular process. Moderate degenerative change thoracic spine. Mild cardiomegaly. IMPRESSION: 1. No evidence for aneurysm or dissection. 2. Mild atherosclerotic change of the arterial vasculature of the chest and upper abdomen. 3. Lungs are considered clear. 4. Moderate degenerative change thoracic spine. 5. No acute process. Electronically signed by: Brian Murcia M.D. 01/20/2017 11:20 AM Dictated Date/Time: 01/20/2017 11:15 AM
--- NOTE | 2017-01-20 11:23 | Discharge Instructions ---
Discharge Instructions Date of Service Jan 20, 2017. Admission Reason for Admission: Chest Pain Discharge Discharge Diagnosis / Problem: Severe Aortic Stenosis Discharge Goals Goal(s): Decrease discomfort, Improve function Activity Recommendations Activity Limitations: as noted below out of bed as tolerated, with assistance . Instructions / Follow-Up Instructions / Follow-Up transferring to [facility] for evaluation for AVR Dr. Varela has accepted patient for transfer -pt will be transferred via Ground Current Hospital Diet Patient's current hospital diet: Full Liquid Diet Discharge Diet Recommended Diet: AHA Diet (Heart Healthy) Procedures Procedures Performed: Cardiac Cath Echocardiogram CT Chest Angio Pending Studies Studies pending at discharge: no Medical Emergencies . Who to Call and When: Medical Emergencies: If at any time you feel your situation is an emergency, please call 911 immediately. . Non-Emergent Contact Non-Emergency issues call your: Primary Care Provider . . "Provider Documentation" section prepared by Susan Park. . VTE Core Measure Inpt VTE Proph given/why not?: SCD's
--- NOTE | 2017-01-20 11:37 | Discharge Summary ---
Discharge Summary Date of Service Jan 20, 2017. Discharge Summary Admission Date: Jan 19, 2017 at 18:09 Discharge Date: Jan 20, 2017 Discharge Disposition: Acute care facility Principal Diagnosis: Severe Aortic Stenosis Procedures: Cardiac Cath: LM - Luminal irregularities LAD - 20% proximal, mid segment luminal irregularities, 60-70% stenosis in small apical segment; - 2nd septal with 70% focal stenosis. Circumflex - Large caliber vessel, proximal/mid luminal irregularities. - 40% stenosis in large/distal OM2; branch of OM2 with 60-70% stenosis RCA - Dominant, large caliber vessel, 40-50% ostial stenosis; 20% mid segment disease; distal luminal irregularities. CT CHEST ANGIO IMPRESSION: 1. No evidence for aneurysm or dissection. 2. Mild atherosclerotic change of the arterial vasculature of the chest and upper abdomen. 3. Lungs are considered clear. 4. Moderate degenerative change thoracic spine. 5. No acute process. CXR IMPRESSION: No acute cardiopulmonary process. ECHO: * Mildly dilated LV chamber size and mild concentric LVH. * Severely reduced LV systolic function with abnormal septal wall motion consistent with conduction abnormality and global hypokinesis, EF 30-35%. * Grade I diastolic dysfunction. * Severely calcified aortic valve with severely reduced systolic opening. Unable to determine number of leaflets. Severe aortic stenosis is present with a Vmax of 4.6 m/s, SERGIO of 0.5 cm2 and PG max of 80 mmHg. However, stenosis maybe falsely lowered due to reduced systolic function. * There is mild mitral annular calcification. The mitral valve leaflets appear thickened, but open well. There is mild mitral regurgitation. There is mild mitral stenosis. * Mild left atrial enlargement. Consultations: Dr. Gonzales, Cardiology Dr. Eddy, Interventional Cardiology Medication Reconciliation New Medications: Aspirin (Aspirin EC Low Dose) 81 Mg Ectab 81 MG PO QAM for 30 Days Metoprolol Tartrate (Lopressor) 25 Mg Tab 12.5 MG PO Q6 for 30 Days, #60 TAB Continued Medications: Atorvastatin (Atorvastatin Calcium) 20 Mg Tab 20 MG PO DAILY Multivitamin (Multivitamin) Tab 1 TAB PO NOON, TAB Admission Information HPI (per Admitting provider): 71 year old male who presented to the ED with a chief complaint of chest pain. Patient has known aortic valve stenosis however has been putting off the work up due to his being sick. She unfortunately last week. Patient reports he noticed shortness of breath last evening. When he woke up this morning he reports he felt well and the shortness of breath had resolved. However later in the day he developed chest pain. He describes it as a substernal and constant. He then presented to the ED. EKG showed a new LBBB. A heart alert was called and patient was taken to the [facility] emergently. Cath showed mild to moderate non-obstructive coronary artery disease. Symptoms are felt to be due to severe aortic stenosis. Patient is being admitted overnight with plans to transfer to [facility] in the morning for evaluation of aortic valve replacement. Patient was seen and examined post cath. He is resting in bed in no acute distress. He currently rates his chest discomfort 2/10. He denies 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 No lightheadedness or dizziness. He denies abdominal pain and nausea. No recent illnesses, fever, or chills. He denies urinary symptoms. Vitals are stable. Physical Exam (per Admitting): General Appearance: WD/WN, no apparent distress Head: normocephalic, atraumatic Eyes: normal inspection, EOMI, sclerae normal ENT: + pertinent finding ([place]; mucous membranes moist) Neck: supple, no JVD, trachea midline Respiratory/Chest: lungs clear, normal breath sounds, no respiratory distress Cardiovascular: regular rate, rhythm, no edema, normal peripheral pulses, + systolic murmur Abdomen/GI: normal bowel sounds, non tender, soft, no organomegaly Extremities/Musculoskelatal: normal inspection, no calf tenderness, normal capillary refill Neurologic/Psych: no motor/sensory deficits, alert, normal mood/affect, oriented x 3 Skin: normal color, warm/dry Hospital Course 71 year old male with known severe aortic stenosis who presented to the ED with chest pain. Initial EKG showed a new LBBB. Heart alert was called and patient was taken emergently to the [facility]. Cath is as described above and showed mild -moderate disease not amendable to intervention. Echo showed global hypokinesis with EF 30-35% and severe aortic stenosis. Patient was started on beta reggie and aspirin. His home statin was continued. Patient also had a CT angio that was negative for dissection. Patient was admitted over night for observation. He remained stable and chest pain has resolved. Patient now has symptomatic severe aortic stenosis with cardiomyopathy. Referred to [facility] for evaluation for aortic valve replacement. 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 Likely will need ENT evaluation regarding intubation. Total time spent on discharge = 35 minutes This includes examination of the patient, discharge planning, medication reconciliation, and communication with other providers. Discharge Instructions Discharge Instructions Date of Service Jan 20, 2017. Admission Reason for Admission: Chest Pain Discharge Discharge Diagnosis / Problem: Severe Aortic Stenosis Discharge Goals Goal(s): Decrease discomfort, Improve function Activity Recommendations Activity Limitations: as noted below out of bed as tolerated, with assistance . Instructions / Follow-Up Instructions / Follow-Up transferring to [facility] for evaluation for AVR Current Hospital Diet Patient's current hospital diet: Full Liquid Diet Discharge Diet Recommended Diet: AHA Diet (Heart Healthy) Procedures Procedures Performed: Cardiac Cath Echocardiogram CT Chest Angio Pending Studies Studies pending at discharge: no Medical Emergencies . Who to Call and When: Medical Emergencies: If at any time you feel your situation is an emergency, please call 911 immediately. . Non-Emergent Contact Non-Emergency issues call your: Primary Care Provider . . "Provider Documentation" section prepared by Susan Park. . VTE Core Measure Inpt VTE Proph given/why not?: SCD's Additional Copies To Prudencio Burns III, M.D. Henry, Sheldon D., M.D.
== END 2017-01-20 17:28 | disposition short-term general hospital (02) | DRG 287 ==
LOC: C.EDB 15:42 → C.2T 18:09 → ENRESERV 18:19
PROVIDERS: ADMIT Family Medicine; ATTEND Hospitalist
PROC: 4A023N7 Measurement of Cardiac Sampling and Pressure, Left Heart, Percutaneous Approach (ICD-10-PCS; principal; 2017-01-19 17:27)
PROC: B211YZZ Fluoroscopy of Multiple Coronary Arteries using Other Contrast (ICD-10-PCS; principal; 2017-01-19 17:27)
DX: I35.0 Nonrheumatic aortic (valve) stenosis (principal); I44.7 Left bundle-branch block, unspecified; E78.5 Hyperlipidemia, unspecified; Z79.899 Other long term (current) drug therapy; Z87.891 Personal history of nicotine dependence

== ENCOUNTER 2020-05-02 08:04 | Inpatient (IN) ==
[2020-05-02] MEDS ORDERED: ALBUT/IPRATROP 3MG/0.5MG NEB 3 ML VIAL NEB STA (08:37)
--- NOTE | 2020-05-02 08:42 | Emergency Department Note ---
ED Visit Note I contributed to the care of this patient under the supervision of Dr. Naik . Resident Activity Tracking Resident Involvement: Resident Care Provided Care Provided: Adult ED
[2020-05-02 08:47] LABS: Eosinophils # (auto) 0.04 K/uL (0-0.5); Eosinophils % (auto) 0.6 %; Hemoglobin 9.8 g/dL (14.0-18.0); Immature Granulocytes # (auto) 0.03 K/uL (0.00-0.02); Immature Granulocytes % (auto) 0.4 %; Lymphocytes # (auto) 0.41 K/uL (1.2-3.4); Mean Corpuscular Hemoglobin 25.2 pg (25-34); Mean Corpuscular Hgb Conc 32.7 g/dL (32-36); Mean Corpuscular Volume 77.1 fL (80-100); Mean Platelet Volume 8.9 fL (7.4-10.4); Monocytes # (auto) 0.46 K/uL (0.11-0.59); Monocytes % (auto) 6.8 %; Neutrophils # (auto) 5.84 K/uL (1.4-6.5); Neutrophils % (auto) 86.2 %; Platelet Count 269 K/uL (130-400); RDW Coefficient of Variation 16.8 % (11.5-14.5); RDW Standard Deviation 47.8 fL (36.4-46.3); Red Blood Count 3.89 M/uL (4.7-6.1); White Blood Count 6.78 K/uL (4.8-10.8)
[2020-05-02 08:58] LABS: INR 1.1 (0.9-1.1); Partial Thromboplastin Ratio 1.2; Partial Thromboplastin Time 31.9 Seconds (21.0-31.0)
[2020-05-02 09:02] LABS: Albumin Level 2.7 gm/dl (3.4-5.0); BUN Creatinine Ratio 19.4 (10-20); Blood Urea Nitrogen 22 mg/dl (7-18); Calcium 8.9 mg/dl (8.5-10.1); Carbon Dioxide 30 mmol/L (21-32); Chloride 95 mmol/L (98-107); Creatinine Clr Calc Pharmacy 52.5 ml/min; Est GFR (African American) 73.6; Est GFR (Non-African American) 63.5; Glucose 83 mg/dl (70-99); Potassium 4.3 mmol/L (3.5-5.1); Sodium 129 mmol/L (136-145)
[2020-05-02 09:07] LABS: Alanine Aminotransferase 15 U/L (12-78); Albumin Globulin Ratio 0.6 (0.9-2); Alkaline Phosphatase 104 U/L (45-117); Aspartate Aminotransferase 21 U/L (15-37); Bilirubin,Total 0.6 mg/dl (0.2-1); Globulin 4.2 gm/dl (2.5-4.0); Total Protein 6.9 gm/dl (6.4-8.2); Troponin I < 0.015 ng/ml (0-0.045)
--- NOTE | 2020-05-02 09:31 | XRay Report ---
XR chest 1V portable CLINICAL HISTORY: hypoxia, cough COMPARISON STUDY: Chest CT January 20, 2017. FINDINGS: There are median sternotomy wires. No pneumothorax is present. There are suspected trace bi lateral pleural effusions. Mild right basilar opacities are present. Moderate bilateral airspace opac ities are noted. Interstitial thickening is also noted. There is mild cardiomegaly. Mediastinal conto urs are otherwise normal. IMPRESSION: 1. Interstitial thickening consistent with pulmonary edema. Moderate bilateral airspace opacities may reflect superimposed pneumonia or alveolar edema. Radiographic follow-up is recommended. 2. Trace bilateral pleural effusions. ACT 112: Negative or not required by law. Electronically signed by: Yayo Kay M.D. 05/02/2020 9:30 AM
[2020-05-02 09:50] LABS: Influenza A virus by PCR Negative (Neg); Influenza B virus by PCR Negative (Neg); RSV by PCR Negative (Neg); SARS CoV2 RNA(COVID-19) InHosp NEGATIVE (Negative)
[2020-05-02] MEDS ORDERED: VANCOMYCIN HCL 1,500 MG in SODIUM CHLORIDE 0.9% 500 ML IV ONE (09:58)
[2020-05-02] MEDS ORDERED: CEFEPIME 2,000 MG/20 ML VIAL IV STA (09:58)
[2020-05-02] MEDS ORDERED: VANCOMYCIN CONSULT ACTIVE PRN ×2 (09:58→12:54)
--- NOTE | 2020-05-02 10:10 | Emergency Department Note ---
History of Present Illness General Chief complaint: Shortness of Breath/Dyspnea Time Seen by Provider: 05/02/20 08:16 Source: patient Mode of arrival: EMS Limitations: no limitations History of Present Illness Provider complaint: Shortness of breath This is a 75-year-old male who presents to the ED with a chief complaint of shortness of breath for the past 6 days. He has also been weak and shaky. He denies a cough other than when he takes fluids. He states that taking fluids makes him cough. He has a history of cancer in his soft and hard palate. There is a large hole there. He states that he had his cabinet immunizations. The last one was on the . The patient reports a pain in the middle of his left back with breathing. Denies any additional symptoms. He was found by EMS to have oxygen saturations of 50% at the house. He is not on oxygen at home. Home Medications Medication Instructions Recorded Confirmed Type amlodipine 5 mg PO BID 09/18/18 05/02/20 History aspirin 81 mg PO QAM 09/18/18 05/02/20 History atorvastatin 40 mg PO PM 09/18/18 05/02/20 History hydralazine 10 mg PO TID 09/18/18 05/02/20 History nitroglycerin 0.4 mg SUBLINGUAL UD PRN 09/18/18 05/02/20 History terazosin 2 mg PO HS 09/18/18 05/02/20 History Allergies Allergy/AdvReac Type Severity Reaction Status Date / Time No Known Allergies Allergy Verified 11/01/18 07:36 Past Med/Surg History Medical History Cardiac murmur CHILD FROM RHEUMATIC FEVER Hearing deficit BILAT History of [place] (myocardial infarction) 2017/ [facility] History of nasopharyngeal cancer s/p radiation, chemo- NO PORT ANYMORE CLEARED NOV 2013 History of rheumatic fever Hyperlipidemia Hypertension Palate abnormality prosthetic palate Surgical History History of cardiac cath 2017 - [place] --> CABG - [facility]- follows w/ Dr. Milton- [facility]/ NO STENTS History of cataract surgery History of colonoscopy with polypectomy 09/25/2018. Propofol given, no issues. History of coronary artery bypass graft PT UNSURE HOW MANY VESSELS - 2016 - [facility] History of heart valve replacement [facility] 2016 History of shoulder surgery RIGHT History of tonsillectomy History of tooth extraction History of vascular access device NO LONGER HAS PORT Status post insertion of percutaneous endoscopic gastrostomy (PEG) tube PLACED DUE TO PALATE SURGERY- THEN REMOVED 2014 Social History Smoking Status: Former smoker Second Hand Exposure: No; Hx Alcohol Use: No Hx Substance Use: No Preferred Language: Kittitian Communication Ability: Effective Auto Body Customizer Required: No Beliefs That Will Affect Care: None Current Living Situation: Alone Feels Safe at Home: Yes Assistive Devices: Denture - Upper and Hearing Aid - Bilateral Review of Systems A total of 10 systems reviewed and were otherwise negative Physical Exam Vital Signs Vital Signs - 24 hr 05/02/20 08:09 05/02/20 08:45 05/02/20 08:49 Temperature 36.8 C Temperature Source Oral Pulse Rate 77 78 Pulse Rate [Apical] 78 Pulse Rate from SpO2 Sensor 78 Pulse Rhythm Regular Pulse Strength Normal Respiratory Rate 26 H 17 18 Respiratory Effort / Characteristics Labored Non-Labored Spontaneous Respiratory Depth Normal Respiratory Pattern Grunting Blood Pressure 142/74 H 131/67 Blood Pressure Mean 96 88 Blood Pressure Position Sitting Pulse Oximetry 72 L 98 98 Oxygen Delivery Method Nebulizer Oxymask Non-rebreather Oxygen Flow Rate 15 8 10 Sepsis Recent Fever Within 48 Hours No Sepsis New/Unexplained Change in Mental Status No Sepsis Action Taken by Nursing No Action Required CONSTITUTIONAL/VITAL SIGNS: Reviewed / noted above. GENERAL: Non-toxic in appearance. INTEGUMENTARY: Warm, dry, and [place]. HEAD: Normocephalic. EYES: without scleral icterus or trauma. ENT/OROPHARYNX: clear and moist. There is a hole in his soft and hard palate. LYMPHADENOPATHY/NECK: Is supple without lymphadenopathy or meningismus. RESPIRATORY: Lungs bilateral crackles. CARDIOVASCULAR: Regular rate and rhythm. GI/ABDOMEN: Soft and nontender. No organomegaly or pulsatile mass. No rebound or guarding. Normal bowel sounds. EXTREMITIES: Warm and well perfused. BACK: No CVA tenderness. NEUROLOGICAL: Intact without focal deficits. PSYCHIATRIC: normal affect. MUSCULOSKELETAL: Normally developed with good muscle tone. TRIAGE NURSING DOCUMENTATION REVIEWED. Course Administered Medications Discontinued Medications Albuterol (Albut/Ipratrop 3mg/0.5mg Neb 3 Ml Vial) 3 ml NEB NOW STA Stop: 05/02/20 08:38 Last Admin: 05/02/20 08:49 Dose: 3 ml Documented by: [id number] Critical Care Time Critical Care Time: Yes Total Critical Care Time: 30 I have personally spent 30 minutes of critical care time in the direct management of this patient. This includes bedside care, interpretation of diagnostic studies, and testing, discussion with consultants, patient, and family members, and other required patient management activities. This 30 minutes is in excess of all separately billable procedures. Medical Decision Making Differential Diagnosis The differential was considered includes acute myocardial infarction, acute coronary syndrome, myocarditis, pericarditis, pericardial effusions /tamponad, esophageal perforation, pulmonary embolism, pneumonia, pneumothorax, cardiomyopathy, congestive heart, anemia , COPD/asthma exacerbation. Medical Records Attestation: I reviewed the patient's medical records. Home Medications Current Medication List: was personally reviewed by me Laboratory Data Attestation: I reviewed the patient's lab results. Result diagrams: 05/02/20 08:15 05/02/20 08:15 Lab Results 05/02/20 05/02/20 05/02/20 Range/Units 08:15 08:15 08:15 WBC 6.78 (4.8-10.8) K/uL RBC 3.89 L (4.7-6.1) M/uL Hgb 9.8 L (14.0-18.0) g/dL Hct 30.0 L (42-52) % MCV 77.1 L (80-100) fL MCH 25.2 (25-34) pg MCHC 32.7 (32-36) g/dL RDW Std Deviation 47.8 H (36.4-46.3) fL RDW Coeff of Navid 16.8 H (11.5-14.5) % Plt Count 269 (130-400) K/uL MPV 8.9 (7.4-10.4) fL Immature Gran % (Auto) 0.4 % Neut % (Auto) 86.2 % Lymph % (Auto) 6.0 % Baker % (Auto) 6.8 % Eos % (Auto) 0.6 % Baso % (Auto) 0.0 % Neut # (Auto) 5.84 (1.4-6.5) K/uL Lymph # (Auto) 0.41 L (1.2-3.4) K/uL Baker # (Auto) 0.46 (0.11-0.59) K/uL Eos # (Auto) 0.04 (0-0.5) K/uL Baso # (Auto) 0.00 (0-0.2) K/uL Immature Gran # (Auto) 0.03 H (0.00-0.02) K/uL PT 11.0 (9.0-12.0) Seconds INR 1.1 (0.9-1.1) APTT 31.9 H (21.0-31.0) Seconds PTT Ratio 1.2 Sodium 129 L (136-145) mmol/L Potassium 4.3 (3.5-5.1) mmol/L Chloride 95 L (98-107) mmol/L Carbon Dioxide 30 (21-32) mmol/L Anion Gap 4.0 (3-11) BUN 22 H (7-18) mg/dl Creatinine 1.12 (0.6-1.4) mg/dl Est Cr Clr Drug Dosing 52.5 ml/min Est GFR ( Amer) 73.6 Est GFR (Non-Af Amer) 63.5 BUN/Creatinine Ratio 19.4 (10-20) Glucose 83 (70-99) mg/dl Lactate (0.4-2.0) mmol/L Calcium 8.9 (8.5-10.1) mg/dl Total Bilirubin 0.6 (0.2-1) mg/dl AST 21 (15-37) U/L ALT 15 (12-78) U/L Alkaline Phosphatase 104 (45-117) U/L Troponin I < 0.015 (0-0.045) ng/ml Total Protein 6.9 (6.4-8.2) gm/dl Albumin 2.7 L (3.4-5.0) gm/dl Globulin 4.2 H (2.5-4.0) gm/dl Albumin/Globulin Ratio 0.6 L (0.9-2) COVID-19 Eval Order SARS-CoV-2 (PCR) (Negative) Influenza Type A (PCR) (Neg) Influenza Type B (PCR) (Neg) RSV (RT-PCR) (Neg) 05/02/20 05/02/2005/02/21 Range/Units 08:45 08:45 08:45 WBC (4.8-10.8) K/uL RBC (4.7-6.1) M/uL Hgb (14.0-18.0) g/dL Hct (42-52) % MCV (80-100) fL MCH (25-34) pg MCHC (32-36) g/dL RDW Std Deviation (36.4-46.3) fL RDW Coeff of Navid (11.5-14.5) % Plt Count (130-400) K/uL MPV (7.4-10.4) fL Immature Gran % (Auto) % Neut % (Auto) % Lymph % (Auto) % Baker % (Auto) % Eos % (Auto) % Baso % (Auto) % Neut # (Auto) (1.4-6.5) K/uL Lymph # (Auto) (1.2-3.4) K/uL Baker # (Auto) (0.11-0.59) K/uL Eos # (Auto) (0-0.5) K/uL Baso # (Auto) (0-0.2) K/uL Immature Gran # (Auto) (0.00-0.02) K/uL PT (9.0-12.0) Seconds INR (0.9-1.1) APTT (21.0-31.0) Seconds PTT Ratio Sodium (136-145) mmol/L Potassium (3.5-5.1) mmol/L Chloride (98-107) mmol/L Carbon Dioxide (21-32) mmol/L Anion Gap (3-11) BUN (7-18) mg/dl Creatinine (0.6-1.4) mg/dl Est Cr Clr Drug Dosing ml/min Est GFR ( Amer) Est GFR (Non-Af Amer) BUN/Creatinine Ratio (10-20) Glucose (70-99) mg/dl Lactate 0.8 (0.4-2.0) mmol/L Calcium (8.5-10.1) mg/dl Total Bilirubin (0.2-1) mg/dl AST (15-37) U/L ALT (12-78) U/L Alkaline Phosphatase (45-117) U/L Troponin I (0-0.045) ng/ml Total Protein (6.4-8.2) gm/dl Albumin (3.4-5.0) gm/dl Globulin (2.5-4.0) gm/dl Albumin/Globulin Ratio (0.9-2) COVID-19 Eval Order CovFluRsv at [facility] SARS-CoV-2 (PCR) NEGATIVE (Negative) Influenza Type A (PCR) Negative (Neg) Influenza Type B (PCR) Negative (Neg) RSV (RT-PCR) Negative (Neg) Imaging Data Radiologist's Impression: XR chest 1V portable CLINICAL HISTORY: hypoxia, cough COMPARISON STUDY: Chest CT January 20, 2017. FINDINGS: There are median sternotomy wires. No pneumothorax is present. There are suspected trace bilateral pleural effusions. Mild right basilar opacities are present. Moderate bilateral airspace opacities are noted. Interstitial thickening is also noted. There is mild cardiomegaly. Mediastinal contours are otherwise normal. IMPRESSION: 1. Interstitial thickening consistent with pulmonary edema. Moderate bilateral airspace opacities may reflect superimposed pneumonia or alveolar edema. Radiographic follow-up is recommended. 2. Trace bilateral pleural effusions. ECG Data Attestation: I personally reviewed and interpreted this ECG as follows: Indication: + weakness Rate (beats per minute): 83 Rhythm: + sinus rhythm ECG Intervals/blocks: + Left bundle branch block ECG ST segments: no ST elevation ECG Findings: no PVCs MDM Narrative This is a 75-year-old male who presents to the ED with a chief complaint of shortness of breath for the last 6 days details listed above. Nonproductive cough. Weakness and shakiness. Oxygen saturations by EMS were 50% on room air at home. He does not use home oxygen. The patient has had his Covid vaccinations. Covid test today is negative. EKG shows a sinus rhythm with a left bundle branch block that is chronic. Hemoglobin is 9.8. Sodium is 129. Troponin was negative. Chest x-ray reveals findings suggestive of pneumonia and heart failure. Clinically the patient's vital signs are stable and his blood pressure is 131/67. There is no cardiomegaly. I suspect his symptoms are more likely related to pneumonia, although he does not have a fever. He does have a previous ejection fraction that was in the 35% range. BNP is pending. The patient was started on IV antibiotics. He was given an albuterol treatment. His oxygen requirements are lessened since his initial presentation. He will be seen by the hospitalist for further evaluation and care. Impression & Plan Bilateral interstitial pneumonia, CHF (congestive heart failure), Hypoxia Discharge Plan Visit Data Chief Complaint: Shortness of Breath/Dyspnea ED Provider: Son Naik ED Midlevel Provider: Johnathon Rawls Discharge Problem: Bilateral interstitial pneumonia, CHF (congestive heart failure), Hypoxia Patient Disposition: Being Evaluated by Hospitalist Forms Stand Alone Forms: [facility] Prescriptions Prescriptions: No Action atorvastatin 40 mg Tablet 40 mg PO PM RF: 0 hydralazine 10 mg Tablet 10 mg PO TID RF: 0 amlodipine 5 mg Tablet 5 mg PO BID RF: 0 aspirin 81 mg Tablet,Delayed Release (Dr/Ec) 81 mg PO QAM RF: 0 terazosin 2 mg Capsule 2 mg PO HS RF: 0 nitroglycerin 0.4 mg Tablet, Sublingual 0.4 mg sublingual UD PRN (Reason: Chest Pain) RF: 0 Referrals Referrals: Prudencio Burns MD [Primary Care Provider] -
[2020-05-02] MEDS ORDERED: FUROSEMIDE 40 MG/4 ML VIAL IV STA (11:06)
--- NOTE | 2020-05-02 11:27 | History & Physical Report ---
Date of Service May 02, 2020 Assessment & Plan (1) Hypoxia: Suspect multifactorial due to CHF and pneumonia - Continue supplemental O2 titrated to effect - Discussed with patient the possibility of BiPAP and/or intubation if worsening respiratory status and he is agreeable if needed - Check CTA of the chest to r/o PE, characterize bilateral airspace opacities further (2) CHF (congestive heart failure): Chest x-ray personally reviewed. BNP >3000. - IV Lasix 40 mg x 1 given in the ED - Check ECHO - last in 2019 (EF 55%) - Monitor Is and Os (3) Bilateral interstitial pneumonia: Procalcitonin 1.73. Blood cultures pending. Broad-spectrum empiric antibiotics started in the ED. - Continue antibiotics for now (4) Hyperlipidemia: - Continue atorvastatin as taken at home (5) Hypertension: - Continue home meds starting tomorrow - will need to monitor while pt on diuretics and may need to adjust (6) Palate abnormality: Pt on a minced and moist diet at home - will continue while admitted DVT prophylaxis: Heparin 5000 units subQ Q12 hours Code status: Full code POA: Anthony chavez Pt seen and examined with Dr. Cartagena. Plan of care discussed and as outlined above. Jelani Espinoza PA-C History of Present Illness Chief Complaint: Shortness of breath x 1 week Primary Care Provider: Prudencio Burns MD This is a 75 y/o male with a PMH of CAD s/p CABG x 1, Aortic stenosis s/p bioprosthetic AVR, intermittent LBBB, HTN, dyslipidemia, and carcinoma of the oropharynx, palate and nasophayrnx s/p cisplatin, XRT, and dental extractions with resultant palatal defect but clear of disease since 2014 who presents today with progressive SOB and weakness over the past week. Pt reports that she started to feel poorly about a week ago with malaise, fatigue and some trouble breathing. He started to feel better over the weekend but has been worsening again since Tuesday. He reports that last night, he fell at home and was unable to get up for about half an hour but eventually maneuvered himself back up before collapsing in bed. He reports not sleeping at all last night due to the breathing. This morning he apparently fell again and was unable to get up. EMS was called and he was reported to have a PulseOx in the 50s on their arrival with improvement only to the 80s on NC so he was placed on a NRB with improvement of sats to the 90s. In the ED, he is currently on 10 L of O2 via mask with a sat in the low 90s. Over the past 24 hours, pt reports he has felt horrible with fatigue, generalized weakness, chills, and increasing shortness of breath, even at rest. He has a cough but relates more to drainage - it is productive of cee sputum. Denies hemoptysis. No significant wheezing but chest feels very tight. He is a former smoker having quit seven years ago - denies prior hx of asthma, COPD or other respiratory difficulties. He denies fever but has had chills. Appetite has been stable. He has been intermittently lightheaded. Denies significant peripheral edema. He lives alone. No known sick contacts. He has received both doses of the COVID vaccine. Allergies Allergy/AdvReac Type Severity Reaction Status Date / Time No Known Allergies Allergy Verified 11/01/18 07:36 Home Medications Medication Instructions Recorded Confirmed Type amlodipine 5 mg PO BID 09/18/18 05/02/20 History aspirin 81 mg PO QAM 09/18/18 05/02/20 History atorvastatin 40 mg PO DAILY 09/18/18 05/02/20 History hydralazine 10 mg PO TID 09/18/18 05/02/20 History nitroglycerin 0.4 mg SUBLINGUAL UD PRN 09/18/18 05/02/20 History terazosin 2 mg PO HS 09/18/18 05/02/20 History Past Med/Surg History Medical History (Updated 05/02/20 @ 13:25 by Marie Espinoza PA-C) Cardiac murmur CHILD FROM RHEUMATIC FEVER CKD (chronic kidney disease) stage 3, GFR 30-59 ml/min Former tobacco use Hearing deficit BILAT History of [place] (myocardial infarction) 2016/ [facility] History of nasopharyngeal cancer s/p radiation, chemo- NO PORT ANYMORE CLEARED NOV 2013 History of rheumatic fever Hyperlipidemia Hypertension Left bundle branch block (LBBB) Palate abnormality prosthetic palate Surgical History (Updated 05/02/20 @ 13:25 by Marie Espinoza PA-C) History of cardiac cath 2017 - [place] --> CABG - [facility]- follows w/ Dr. Yoan- [facility]/ NO STENTS History of cataract surgery History of colonoscopy with polypectomy 09/25/2018. Propofol given, no issues. History of coronary artery bypass graft One vessel - 2016 - [facility] History of heart valve replacement Bioprosthetic aortic valve - 2016 History of shoulder surgery RIGHT History of tonsillectomy History of tooth extraction History of vascular access device NO LONGER HAS PORT Status post insertion of percutaneous endoscopic gastrostomy (PEG) tube PLACED DUE TO PALATE SURGERY- THEN REMOVED 2014 Family History (Updated 05/02/20 @ 13:26 by Marie Espinoza PA-C) Father Cancer Liver Cancer Social History Smoking Status: Never smoker Second Hand Exposure: No; Do You Dip or Chew Tobacco: No; Tobacco Cessation Education Requested by Patient: No Hx Alcohol Use: No Hx Substance Use: No Preferred Language: Slovak Communication Ability: Impaired Communication Ability Comment: garbled speech, sometimes hard to understand Ward Helper Required: No Beliefs That Will Affect Care: None Current Living Situation: Alone Other Information That Helps Us Care for You: No Feels Safe at Home: Yes Safety Concerns: Feels Safe At This Time Assistive Devices: Oxygen - Continuous Review of Systems Review of Systems: All systems reviewed & are unremarkable except as noted in HPI & below Constitutional: + chills, + fatigue and + weakness; no fever, no weight loss and no weight gain Eyes: no diplopia and no worsening vision Ear, Nose, Mouth, Throat: + dry mouth; no dysphagia Respiratory: + cough, + dyspnea and + pain on inspiration; no hemoptysis and no wheezing Cardiovascular: + chest pain (with deep breath), + dyspnea at rest, + dyspnea on exertion and + lightheadedness; no orthopnea, no palpitations, no syncope and no edema Gastrointestinal: no abdominal pain, no nausea, no vomiting, no diarrhea/loose stools and no blood in stools Genitourinary: no dysuria, no urinary frequency and no hematuria Musculoskeletal: + muscle weakness; no back pain, no neck pain and no myalgia Integumentary: no rash and no erythema Neurologic: + falls, + generalized weakness and + dizziness; no seizure-like activity, no headache(s) and no abnormal speech Psychiatric: no depression and no anxiety Physical Exam Constitutional: WD/WN, vitals as above + ill appearing and + thin Eyes: + anicteric sclerae ENMT: palatal defect noted, no teeth Neck: trachea midline Respiratory: + labored breathing (mildly) Auscultation: + rales (throughout) and + wheezes (occasional faint ) Increased work of breathing but able to speak in sentences - does seem to fatigue after 2-3 sentences. Pulseox dropping intermittently with conversation to upper 80s. Cardiovascular: Rate/Rhythm: regular rate and regular rhythm Vessels: posterior tibial pulses present and radial pulses present; no carotid bruit Extremities: no calf tenderness and no pedal edema +valve click Gastrointestinal (Abdomen): Inspection/Auscultation: normal bowel sounds; abdomen not distended Percussion/Palpation: abdomen soft; abdomen nontender Musculoskeletal: Head/Neck/Chest: normocephalic, head atraumatic and neck supple Skin: no rashes, warm and dry Neurologic: moves all extremities; no focal motor deficits Psychiatric: A+Ox3, euthymic affect Results & Data Results & Data ([facility]) Vital Signs (Past 12 Hours) Vital Signs Temp Pulse Pulse Resp BP Pulse Ox 05/02/20 08:49 78 18 98 05/02/20 08:45 78 17 131/67 98 05/02/20 08:09 36.8 C 77 26 H 142/74 H 72 L Laboratory Results Laboratory Results - last 24 hr 05/02/20 05/02/20 05/02/20 08:15 08:15 08:15 WBC 6.78 RBC 3.89 L Hgb 9.8 L Hct 30.0 L MCV 77.1 L MCH 25.2 MCHC 32.7 RDW Std Deviation 47.8 H RDW Coeff of Navid 16.8 H Plt Count 269 MPV 8.9 Immature Gran % (Auto) 0.4 Neut % (Auto) 86.2 Lymph % (Auto) 6.0 Ida % (Auto) 6.8 Eos % (Auto) 0.6 Baso % (Auto) 0.0 Neut # (Auto) 5.84 Lymph # (Auto) 0.41 L Ida # (Auto) 0.46 Eos # (Auto) 0.04 Baso # (Auto) 0.00 Immature Gran # (Auto) 0.03 H PT 11.0 INR 1.1 APTT 31.9 H PTT Ratio 1.2 Sodium 129 L Potassium 4.3 Chloride 95 L Carbon Dioxide 30 Anion Gap 4.0 BUN 22 H Creatinine 1.12 Est Cr Clr Drug Dosing 52.5 Est GFR ( Amer) 73.6 Est GFR (Non-Af Amer) 63.5 BUN/Creatinine Ratio 19.4 Glucose 83 Lactate Calcium 8.9 Total Bilirubin 0.6 AST 21 ALT 15 Alkaline Phosphatase 104 Troponin I < 0.015 NT-Pro-B Natriuret Pep Total Protein 6.9 Albumin 2.7 L Globulin 4.2 H Albumin/Globulin Ratio 0.6 L Procalcitonin COVID-19 Eval Order SARS-CoV-2 (PCR) Influenza Type A (PCR) Influenza Type B (PCR) RSV (RT-PCR) 05/02/20 05/02/20 05/02/20 08:45 08:45 08:45 WBC RBC Hgb Hct MCV MCH MCHC RDW Std Deviation RDW Coeff of Navid Plt Count MPV Immature Gran % (Auto) Neut % (Auto) Lymph % (Auto) Ida % (Auto) Eos % (Auto) Baso % (Auto) Neut # (Auto) Lymph # (Auto) Ida # (Auto) Eos # (Auto) Baso # (Auto) Immature Gran # (Auto) PT INR APTT PTT Ratio Sodium Potassium Chloride Carbon Dioxide Anion Gap BUN Creatinine Est Cr Clr Drug Dosing Est GFR ( Amer) Est GFR (Non-Af Amer) BUN/Creatinine Ratio Glucose Lactate 0.8 Calcium Total Bilirubin AST ALT Alkaline Phosphatase Troponin I NT-Pro-B Natriuret Pep Total Protein Albumin Globulin Albumin/Globulin Ratio Procalcitonin COVID-19 Eval Order CovFluRsv at [facility] SARS-CoV-2 (PCR) NEGATIVE Influenza Type A (PCR) Negative Influenza Type B (PCR) Negative RSV (RT-PCR) Negative 05/02/20 05/02/20 10:31 10:31 WBC RBC Hgb Hct MCV MCH MCHC RDW Std Deviation RDW Coeff of Navid Plt Count MPV Immature Gran % (Auto) Neut % (Auto) Lymph % (Auto) Ida % (Auto) Eos % (Auto) Baso % (Auto) Neut # (Auto) Lymph # (Auto) Ida # (Auto) Eos # (Auto) Baso # (Auto) Immature Gran # (Auto) PT INR APTT PTT Ratio Sodium Potassium Chloride Carbon Dioxide Anion Gap BUN Creatinine Est Cr Clr Drug Dosing Est GFR ( Amer) Est GFR (Non-Af Amer) BUN/Creatinine Ratio Glucose Lactate Calcium Total Bilirubin AST ALT Alkaline Phosphatase Troponin I NT-Pro-B Natriuret Pep 3622 H Total Protein Albumin Globulin Albumin/Globulin Ratio Procalcitonin Pending COVID-19 Eval Order SARS-CoV-2 (PCR) Influenza Type A (PCR) Influenza Type B (PCR) RSV (RT-PCR) Medications Administered Vancomycin HCl 1,500 mg/ (Sodium Chloride) 530 mls @ 200 mls/hr IV NOW ONE Stop: 05/02/20 12:36 Last Admin: 05/02/20 10:29 Dose: 200 mls/hr Documented by: [id number] Discontinued Medications Albuterol (Albut/Ipratrop 3mg/0.5mg Neb 3 Ml Vial) 3 ml NEB NOW STA Stop: 05/02/20 08:38 Last Admin: 05/02/20 08:49 Dose: 3 ml Documented by: [id number] Cefepime HCl (Maxipime) 2,000 mg in 20 mls @ 5 mls/min IV NOW STA; Protocol Stop: 05/02/20 10:01 Last Admin: 05/02/20 10:29 Dose: 5 mls/min Documented by: [id number] Code Status & VTE Plan VTE Prophylaxis Plan VTE Prophylaxis will be ordered: Yes Supervising Physician Co-Signing Physician Notes Attending addendum: The patient was seen and examined in emergency room He has been complaining of increasing shortness of breath for the last week or so associated with minimal cough Denies any wheezing , fever and/or chills, no palpitation, no abdominal pain nausea and/or vomiting On examination Moderate shortness of breath at rest Noted to have tach tachycardia and required about 10 L of nasal cannula oxygen to maintain saturation Chest-crackles all over with minimal wheezing Heart-S1-S2, difficult to hear for any murmur Abdomen-benign Extremities-trace edema bilaterally MEDIA CONSULTANT-alert, awake and oriented x3 Admission labs notable for sodium of 129, proBNP of 36[address] and prol[address] of 1.[address]. CT scan of the chest did show interstitial pulmonary edema with patchy upper lung zone prominent multisegmental airspace opacities suggestive of superimposed pneumonia with a small bilateral pleural effusion, emphysema with chronic bronchitis, EKG and troponin are unremarkable for any ACS. CTA did not show any pulmonary embolism Assessment and plan: Shortness of breath secondary to CHF/pneumonia/exacerbation of COPD(noted to have emphysema and history of smoking) Received intravenous Lasix x1 and has been getting intravenous antibiotic We will add nebulized bronchodilator and small dose of Solu-Medrol Agree with assessment and plan as outlined above by MAGGIE Gabriel Dr
[2020-05-02] MEDS ORDERED: FUROSEMIDE 40 MG/4 ML VIAL IV ONE (13:17)
[2020-05-02] MEDS ORDERED: CEFEPIME CONSULT ACTIVE PRN (13:21)
--- NOTE | 2020-05-02 13:22 | Pharmacy Report ---
Pharmacy Abx Initial Consult - Date of Service May 02, 2020 - Pharmacy Dosing Scope Date of Consult: 05/02/20 Consultation requested by: Marie Espinoza PA-C Pharmacy is consulted to initiate Vancomycin IV dosing therapy, order appropriate labs and adjust drug dose/frequency. - Subjective The patient is a 75 year old M admitted on 05/02/20 12:35. - Objective Height: 5 ft 7 in Weight: 70 kg Vital Signs (Past 12hrs): Vital Signs Temp Pulse Pulse Resp BP Pulse Ox 05/02/20 11:36 74 18 128/65 95 05/02/20 08:49 78 18 98 05/02/20 08:45 78 17 131/67 98 05/02/20 08:09 36.8 C 77 26 H 142/74 H 72 L Lab Results (24hrs): Laboratory Tests (24 Hours) 05/02/20 05/02/20 05/02/20 10:31 08:15 08:15 WBC 6.78 Neut # (Auto) 5.84 Creatinine 1.12 Est Cr Clr Drug Dosing 52.5 Procalcitonin 1.73 H Micro Results: 05/02/20 10:31 Aerobic Blood Culture - Pending Blood Anaerobic Blood Culture - Pending 05/02/20 10:31 Aerobic Blood Culture - Pending Blood Anaerobic Blood Culture - Pending - Risk Factors for Resistance * None - Assessment & Plan Assessment 75 year old M admitted secondary to possible pneumonia * Oxygen requirements at 11 L oxy mask right now * Blood cultures are pending. COVID, Influenza, RSV all negative * MRSA nasal swab ordered * Afebrile. No leukocytosis. Procalcitonin is 1.73 ng/mL but likely unreliable given h/o cancer * Started on vancomycin and cefepime in ED. Only vancomycin continued on transfer to floor Plan Vancomycin for treatment of pneumonia Vancomycin IV * Patient meets criteria for vancomycin AUC dosing nomogram * AUC/LUIS is the preferred PK/PD target for vancomycin * Target AUC/LUIS = 400-600 * AUC guided dosing is effective and associated with decreased risk of nephrotoxicity * Loading dose of 1500 mg IV given x 1 then will start 750 mg IV every 12 hours per AUC nomogram. Will order a trough for Tuesday to determine if AUC/LUIS target is met. Pharmacy will continue to follow and will adjust dose/frequency as necessary. Thank you.
[2020-05-02] MEDS ORDERED: hydrALAZINE 10 MG TAB PO SCH (14:00)
[2020-05-02] MEDS ORDERED: OPTIRAY 320 125ml IV ONE (14:02)
--- NOTE | 2020-05-02 14:14 | CT Scan Report ---
CT angio chest PE protocol CT DOSE: 518.67 mGycm HISTORY: 75 years-old Male with PE. Acute shortness of breath with hypoxia TECHNIQUE: Multiple CTA images of the chest were obtained after the intravenous administration of 120 ml Optiray 320. Coronal and sagittal MIPS were obtained from the axial data set and were submitted for review. All measurements were obtained according to NASCET criteria. A dose lowering technique w as utilized adhering to the principles of ALARA. COMPARISON: Chest radiograph of same day, CT chest 01/20/2017 FINDINGS: Study is degraded by respiratory motion artifact. CTA: The heart is upper limits of normal in size. Prior median sternotomy with prosthetic aortic valve. Mo derate coronary artery calcifications. Moderate atheromatous plaque of the aorta without aneurysm or dissection. There is patency of the imaged great vessels. The subsegmental branches of the pulmonary arterial tree are suboptimally visualized secondary to respiratory motion artifact. No pulmonary embo li identified. CT CHEST: Unremarkable thyroid. Mildly enlarged pretracheal lymph nodes measure up to 12 mm, likely reactive. S mall left and small to moderate right pleural effusion. There is no pneumothorax. Mild emphysema. Bro nchial wall thickening suggestive of bronchitis. Intralobular septal thickening compatible with pulmo nary edema. Patchy bilateral airspace opacities are most pronounced within the upper lung zones. Cons olidation of the medial segment right middle lobe is present with air bronchograms. Central airways a re patent. No pneumoperitoneum. Mild distal esophageal wall thickening. Hypodense lesions of the left hepatic lo be are redemonstrated, incompletely characterized on this study measuring up to 12 mm. No acute fract ure. Right posterolateral fatty attenuating lesion measures 5.4 x 2.4 x 7.9 cm and contains a periphe ral 1.3 cm calcification, unchanged from comparison. IMPRESSION: 1. No pulmonary emboli. 2. Interstitial pulmonary edema. Patchy upper lung zone predominant multisegmental airspace opacities are suggestive of a superimposed pneumonia. 3. Small left and small to moderate right pleural effusions. 4. Emphysema with chronic bronchitis. 5. Mild likely reactive mediastinal adenopathy. ACT 112: Negative or not required by law. The above report was generated using voice recognition software. It may contain grammatical, syntax o r spelling errors. Electronically signed by: Raul Cloud M.D. 05/02/2020 2:13 PM
[2020-05-02] MEDS ORDERED: methylPREDNISolone 40 MG in SYRINGE 0 ML IV ONE (16:00)
--- NOTE | 2020-05-02 16:02 | Electrocardiogram Report ---
Test Reason : Blood Pressure : / mmHG Vent. Rate : 083 BPM Atrial Rate : 083 BPM P-R Int : 148 ms QRS Dur : 142 ms QT Int : 398 ms P-R-T Axes : 066 -66 102 degrees QTc Int : 467 ms Poor data quality, interpretation may be adversely affected Sinus rhythm with Fusion complexes Possible Left atrial enlargement Left axis deviation Left bundle branch block Abnormal ECG When compared with ECG of 20-JAN-2017 08:26, Fusion complexes are now Present QRS voltage has decreased Inverted T waves have replaced nonspecific T wave abnormality in Lateral leads Confirmed by Figueroa Correa ([id number]) on 05/02/2020 4:01:27 PM Referred By: Confirmed By:Davonte Correa
[2020-05-02] MEDS ORDERED: CEFEPIME 2,000 MG in SYRINGE 0 ML IV SCH (18:00)
[2020-05-02 18:15] LABS: Appearance Urine Clear (Clear); Bilirubin Urine Negative (Negative); Blood Urine Negative (Negative); Color Urine Yellow; Glucose Urine UA Negative (Negative); Ketones Urine Negative (Negative); Leukocyte Esterase Urine Negative (Negative); Nitrite Urine Negative (Negative); Protein Urine Negative (Negative); Specific Gravity Urine 1.017 (1.000-1.030); Urobilinogen Urine Negative (Negative)
[2020-05-02] MEDS: ALBUTEROL 0.083% NEBU SOLN 3 ML VIAL NEB SCH (19:36)
[2020-05-02] MEDS ORDERED: amLODIPine BESYLATE 5 MG TAB PO SCH (21:00)
[2020-05-02] MEDS: TERAZOSIN HCL 1 MG CAP PO SCH (21:02)
[2020-05-02] MEDS: methylPREDNISolone 40 MG in SYRINGE 0 ML IV SCH (21:03)
[2020-05-02] MEDS: HEPARIN SOD 5,000 UNIT/0.5 ML VIAL SQ SCH (21:03)
[2020-05-02] MEDS: CEFEPIME 2,000 MG in SYRINGE 0 ML IV SCH (22:01)
[2020-05-02] MEDS: VANCOMYCIN HCL 750 MG in SODIUM CHLORIDE 0.9% 250 ML IV SCH (22:02)
[2020-05-03] MEDS: ALBUTEROL 0.083% NEBU SOLN 3 ML VIAL NEB SCH ×4 (00:29→19:37)
[2020-05-03 07:15] LABS: Hematocrit (blood only) 31.1 % (42-52); Immature Granulocytes # (auto) 0.03 K/uL (0.00-0.02); Immature Granulocytes % (auto) 0.4 %; Lymphocytes # (auto) 0.31 K/uL (1.2-3.4); Lymphocytes % (auto) 4.6 %; Mean Corpuscular Hemoglobin 24.8 pg (25-34); Mean Corpuscular Hgb Conc 32.2 g/dL (32-36); Mean Corpuscular Volume 77.2 fL (80-100); Mean Platelet Volume 8.8 fL (7.4-10.4); Monocytes # (auto) 0.19 K/uL (0.11-0.59); Monocytes % (auto) 2.8 %; Neutrophils # (auto) 6.14 K/uL (1.4-6.5); Neutrophils % (auto) 92.2 %; Platelet Count 261 K/uL (130-400); RDW Coefficient of Variation 16.7 % (11.5-14.5); RDW Standard Deviation 47.5 fL (36.4-46.3); Red Blood Count 4.03 M/uL (4.7-6.1); White Blood Count 6.67 K/uL (4.8-10.8)
[2020-05-03 07:50] LABS: Creatinine Clr Calc Pharmacy 54.6 ml/min; Est GFR (African American) 79.5; Est GFR (Non-African American) 68.6
[2020-05-03] MEDS: ASPIRIN 81 MG ECTAB PO SCH (07:50)
[2020-05-03] MEDS: amLODIPine BESYLATE 5 MG TAB PO SCH ×2 (07:50→20:54)
[2020-05-03] MEDS: ATORVASTATIN 40 MG TAB PO SCH (07:51)
[2020-05-03] MEDS: methylPREDNISolone 40 MG in SYRINGE 0 ML IV SCH ×2 (08:37→20:56)
[2020-05-03] MEDS: HEPARIN SOD 5,000 UNIT/0.5 ML VIAL SQ SCH ×2 (08:37→20:55)
[2020-05-03] MEDS: hydrALAZINE 10 MG TAB PO SCH ×3 (08:37→20:54)
[2020-05-03] MEDS: CEFEPIME 2,000 MG in SYRINGE 0 ML IV SCH ×2 (10:07→22:17)
[2020-05-03] MEDS: VANCOMYCIN HCL 750 MG in SODIUM CHLORIDE 0.9% 250 ML IV SCH ×2 (10:07→22:17)
--- NOTE | 2020-05-03 10:34 | Hospitalist Progress Note ---
Date of Service May 03, 2020 Assessment & Plan (1) Hypoxia: Suspect multifactorial due to CHF and pneumonia - Continue supplemental O2 titrated to effect - Discussed with patient the possibility of BiPAP and/or intubation if worsening respiratory status and he is agreeable if needed - CTA of the chest neg for PE, +pulm edema (2) CHF (congestive heart failure): - IV Lasix 40 mg x 1 given in the ED - Check ECHO - last in 2019 (EF 55%) - Monitor Is and Os (3) Bilateral interstitial pneumonia: Procalcitonin 1.73. Blood cultures pending. Broad-spectrum empiric antibiotics started in the ED. - Continue antibiotics for now (4) Hyperlipidemia: - Continue atorvastatin as taken at home (5) Hypertension: - Continue home meds starting tomorrow - will need to monitor while pt on diuretics and may need to adjust (6) Palate abnormality: Pt on a minced and moist diet at home - will continue while admitted DVT prophylaxis: Heparin 5000 units subQ Q12 hours Code status: Full code POA: Ahmet Cruz Pt seen and examined with Dr. Cartagena. Plan of care discussed and as outlined above. ROS-No Headache, No Visual Changes, No Nausea, No Vomiting, No Fever, No Chills, No Neck Pain or Stiffness, No Chest Pain, No Palpitations, + SOB, No DEGROOT, No Cough, No Sputum, + Wheezing, No Abdominal Pain, No Diarrhea, No Hematemesis, No Hemoptysis, No Unexpected Weight Loss, No Flank pain, No Melena, No Hematochezia, No Frequency, No Urgency, No Burning, No Hematuria, No Rashes, No Diaphoresis. Appetite is Normal Physical Exam Gen-AAO x 3, NAD, Afebrile, [place] Head-NCAT, EOMI, PERRLA, Anicteric Sclera, No Posterior Pharyngeal Erythema Neck-Supple, No JVD, No Thyromegaly, No Masses, No LAD, No Bruits Lungs-Clear to Auscultation Bilaterally, No Rales, No Rhonchi, No Wheezing, No Crepitus Chest-No S4, +S1, +S2, No S3, No Murmurs, No Rubs, No Gallops, No Ectopy Abdomen-Soft, Bowel Sounds Present, Non Tender, Non Distended, No Hepatomegaly, No Splenomegaly, No Palpable Masses, No Rebound, No Rigidity, No Guarding Musculoskeletal-Full Range of Motion Bilaterally, No CVAT Extremities-No Cyanosis, No Clubbing, No Edema Nuero-Cranial Nerves II-XII grossly intact, Motor WNL, DTRs WNL, Strength WNL, Non Focal Psych-Normal Mood Admission and Anticipated Discharge Date Admission Date: May 02, 2020 Results & Data Results & Data ([facility]) Vital Signs (Past 12 Hours) Vital Signs Temp Pulse Pulse Resp BP Pulse Ox 05/03/20 08:04 36.3 C L 71 19 116/61 96 05/03/20 07:44 86 05/03/20 07:25 75 18 95 05/03/20 04:04 36.7 C 65 19 108/61 97 05/03/20 00:30 80 20 98 05/03/20 00:16 37.0 C 68 18 91/51 L 96
[2020-05-03] MEDS: TERAZOSIN HCL 1 MG CAP PO SCH (20:54)
[2020-05-04] MEDS: ALBUTEROL 0.083% NEBU SOLN 3 ML VIAL NEB SCH ×4 (02:14→19:24)
[2020-05-04 06:32] LABS: Hemoglobin 9.7 g/dL (14.0-18.0); Mean Corpuscular Hemoglobin 25.3 pg (25-34); Mean Corpuscular Hgb Conc 33.4 g/dL (32-36); Mean Corpuscular Volume 75.5 fL (80-100); Mean Platelet Volume 8.7 fL (7.4-10.4); Platelet Count 292 K/uL (130-400); RDW Standard Deviation 47.6 fL (36.4-46.3); Red Blood Count 3.84 M/uL (4.7-6.1)
[2020-05-04 06:59] LABS: Calcium 8.3 mg/dl (8.5-10.1); Creatinine Clr Calc Pharmacy 58.6 ml/min; Est GFR (African American) 87.5; Est GFR (Non-African American) 75.5; Potassium 4.2 mmol/L (3.5-5.1)
[2020-05-04] MEDS: HEPARIN SOD 5,000 UNIT/0.5 ML VIAL SQ SCH ×2 (08:08→20:47)
[2020-05-04] MEDS: methylPREDNISolone 40 MG in SYRINGE 0 ML IV SCH ×2 (08:08→20:47)
[2020-05-04] MEDS: hydrALAZINE 10 MG TAB PO SCH ×3 (08:08→20:47)
[2020-05-04] MEDS: amLODIPine BESYLATE 5 MG TAB PO SCH ×2 (08:08→20:47)
[2020-05-04] MEDS: ASPIRIN 81 MG ECTAB PO SCH (08:09)
[2020-05-04] MEDS: ATORVASTATIN 40 MG TAB PO SCH (08:09)
[2020-05-04] MEDS ORDERED: VANCOMYCIN TROUGH ONE (09:30)
--- NOTE | 2020-05-04 09:42 | Hospitalist Progress Note ---
Date of Service May 04, 2020 Assessment & Plan (1) Hypoxia: Suspect multifactorial due to CHF and pneumonia - Continue supplemental O2 titrated to effect - Discussed with patient the possibility of BiPAP and/or intubation if worsening respiratory status and he is agreeable if needed - CTA of the chest neg for PE, +pulm edema (2) CHF (congestive heart failure): - IV Lasix 40 q12 - Check ECHO - last in 2019 (EF 55%) - Monitor Is and Os (3) Bilateral interstitial pneumonia: Procalcitonin 1.73. Blood cultures pending. Broad-spectrum empiric antibiotics started in the ED. - Continue antibiotics for now (4) Hyperlipidemia: - Continue atorvastatin as taken at home (5) Hypertension: - Continue home meds starting tomorrow - will need to monitor while pt on diuretics and may need to adjust (6) Palate abnormality: Pt on a minced and moist diet at home - will continue while admitted DVT prophylaxis: Heparin 5000 units subQ Q12 hours Code status: Full code POA: Son Anthony Labs Checked. ROS-No Headache, No Visual Changes, No Nausea, No Vomiting, No Fever, No Chills, No Neck Pain or Stiffness, No Chest Pain, No Palpitations, + SOB, No DEGROOT, No Cough, No Sputum, + Wheezing, No Abdominal Pain, No Diarrhea, No Hematemesis, No Hemoptysis, No Unexpected Weight Loss, No Flank pain, No Melena, No Hematochezia, No Frequency, No Urgency, No Burning, No Hematuria, No Rashes, No Diaphoresis. Appetite is Normal Physical Exam Gen-AAO x 3, NAD, Afebrile, [place] Head-NCAT, EOMI, PERRLA, Anicteric Sclera, No Posterior Pharyngeal Erythema Neck-Supple, No JVD, No Thyromegaly, No Masses, No LAD, No Bruits Lungs-Clear to Auscultation Bilaterally, No Rales, No Rhonchi, No Wheezing, No Crepitus Chest-No S4, +S1, +S2, No S3, No Murmurs, No Rubs, No Gallops, No Ectopy Abdomen-Soft, Bowel Sounds Present, Non Tender, Non Distended, No Hepatomegaly, No Splenomegaly, No Palpable Masses, No Rebound, No Rigidity, No Guarding Musculoskeletal-Full Range of Motion Bilaterally, No CVAT Extremities-No Cyanosis, No Clubbing, No Edema Nuero-Cranial Nerves II-XII grossly intact, Motor WNL, DTRs WNL, Strength WNL, Non Focal Psych-Normal Mood Admission and Anticipated Discharge Date Admission Date: May 02, 2020 Results & Data Results & Data ([facility]) Vital Signs (Past 12 Hours) Vital Signs Temp Pulse Pulse Resp BP BP Pulse Ox 05/04/20 08:00 67 05/04/20 07:57 36.7 C 80 19 104/56 L 93 05/04/20 07:19 75 16 96 05/04/20 04:29 36.6 C 83 20 100/60 95 05/03/20 23:34 36.4 C L 83 20 102/58 L 97
[2020-05-04] MEDS: VANCOMYCIN HCL 750 MG in SODIUM CHLORIDE 0.9% 250 ML IV SCH ×2 (10:59→22:15)
[2020-05-04] MEDS: CEFEPIME 2,000 MG in SYRINGE 0 ML IV SCH ×2 (10:59→22:15)
[2020-05-04] MEDS: FUROSEMIDE 40 MG in SYRINGE 0 ML IV SCH ×2 (10:59→17:52)
--- NOTE | 2020-05-04 12:15 | Pharmacy Report ---
Pharmacy Abx Dose Short Note - Date of Service May 04, 2020 - Assessment & Plan Assessment * 75 year old M admitted secondary to possible pneumonia, currently on day 3 of cefepime and vancomycin * Blood cultures NGTD. COVID, Influenza, RSV all negative * MRSA nasal swab positive * Afebrile. WBC increased and is elevated, but patient is also on steroids * Initial procalcitonin was 1.73 ng/mL but likely unreliable given h/o cancer therefore will not trend * SCr stable Vancomycin * Goal trough 15-20 mcg/mL * Trough of 17.0 is therapeutic Plan * Continue vancomycin 750 mg IV q12h * Repeat trough in ~3 days, or sooner if clinical status or renal function changes Pharmacy will continue to follow and will adjust dose/frequency as necessary. Thank you.
[2020-05-04] MEDS ORDERED: Nursing to Pharmacy Communication SCH (16:00)
[2020-05-04] MEDS: TERAZOSIN HCL 1 MG CAP PO SCH (20:47)
[2020-05-05] MEDS: ALBUTEROL 0.083% NEBU SOLN 3 ML VIAL NEB SCH ×2 (00:19→07:33)
[2020-05-05] MEDS: methylPREDNISolone 40 MG in SYRINGE 0 ML IV SCH (08:05)
[2020-05-05] MEDS: FUROSEMIDE 40 MG in SYRINGE 0 ML IV SCH ×2 (08:05→21:16)
[2020-05-05] MEDS: amLODIPine BESYLATE 5 MG TAB PO SCH (08:06)
[2020-05-05] MEDS: HEPARIN SOD 5,000 UNIT/0.5 ML VIAL SQ SCH ×2 (08:06→21:15)
[2020-05-05] MEDS: ATORVASTATIN 40 MG TAB PO SCH (08:06)
[2020-05-05] MEDS: ASPIRIN 81 MG ECTAB PO SCH (08:06)
[2020-05-05] MEDS: hydrALAZINE 10 MG TAB PO SCH (08:06)
[2020-05-05] MEDS ORDERED: ALBUTEROL 0.083% NEBU SOLN 3 ML VIAL NEB PRN (08:39)
--- NOTE | 2020-05-05 11:21 | Hospitalist Progress Note ---
Date of Service May 05, 2020 Assessment & Plan (1) Hypoxia: Suspect multifactorial due to CHF and pneumonia - Continue supplemental O2 titrated to effect - CTA of the chest neg for PE, +pulm edema (2) CHF (congestive heart failure): - IV Lasix 40 q12 - Check ECHO - last in 2019 (EF 55%) - Monitor Is and Os (3) Bilateral interstitial pneumonia: Procalcitonin 1.73. Blood cultures pending. Broad-spectrum empiric antibiotics started in the ED. - Continue antibiotics for now (4) Hyperlipidemia: - Continue atorvastatin as taken at home (5) Hypertension: - Monitor (6) Palate abnormality: Pt on a minced and moist diet at home - will continue while admitted DVT prophylaxis: Heparin 5000 units subQ Q12 hours Code status: Full code POA: Son Anthony Labs Checked. ROS-No Headache, No Visual Changes, No Nausea, No Vomiting, No Fever, No Chills, No Neck Pain or Stiffness, No Chest Pain, No Palpitations, Less SOB, No DEGROOT, No Cough, No Sputum, No Wheezing, No Abdominal Pain, No Diarrhea, No Hematemesis, No Hemoptysis, No Unexpected Weight Loss, No Flank pain, No Melena, No Hematochezia, No Frequency, No Urgency, No Burning, No Hematuria, No Rashes, No Diaphoresis. Appetite is Normal Physical Exam Gen-AAO x 3, NAD, Afebrile, [place] Head-NCAT, EOMI, PERRLA, Anicteric Sclera, No Posterior Pharyngeal Erythema Neck-Supple, No JVD, No Thyromegaly, No Masses, No LAD, No Bruits Lungs-Clear to Auscultation Bilaterally, No Rales, No Rhonchi, No Wheezing, No Crepitus Chest-No S4, +S1, +S2, No S3, No Murmurs, No Rubs, No Gallops, No Ectopy Abdomen-Soft, Bowel Sounds Present, Non Tender, Non Distended, No Hepatomegaly, No Splenomegaly, No Palpable Masses, No Rebound, No Rigidity, No Guarding Musculoskeletal-Full Range of Motion Bilaterally, No CVAT Extremities-No Cyanosis, No Clubbing, No Edema Nuero-Cranial Nerves II-XII grossly intact, Motor WNL, DTRs WNL, Strength WNL, Non Focal Psych-Normal Mood Admission and Anticipated Discharge Date Admission Date: May 02, 2020 Results & Data Results & Data ([facility]) Vital Signs (Past 12 Hours) Vital Signs Temp Pulse Pulse Resp BP BP Pulse Ox 05/05/20 08:00 60 05/05/20 07:59 36.6 C 66 17 92/53 L 93 05/05/20 07:36 65 18 98 05/05/20 03:30 36.4 C L 81 18 110/79 92
[2020-05-05] MEDS: CEFEPIME 2,000 MG in SYRINGE 0 ML IV SCH ×2 (11:44→21:14)
[2020-05-05] MEDS: VANCOMYCIN HCL 750 MG in SODIUM CHLORIDE 0.9% 250 ML IV SCH ×2 (11:44→21:14)
[2020-05-05] MEDS ORDERED: Nursing to Pharmacy Communication SCH (12:45)
[2020-05-05] MEDS: TERAZOSIN HCL 1 MG CAP PO SCH (21:15)
[2020-05-06 08:16] LABS: Hematocrit (blood only) 32.5 % (42-52); Hemoglobin 10.7 g/dL (14.0-18.0); Mean Corpuscular Hemoglobin 25.4 pg (25-34); Mean Corpuscular Hgb Conc 32.9 g/dL (32-36); Mean Corpuscular Volume 77.2 fL (80-100); Mean Platelet Volume 8.5 fL (7.4-10.4); Nucleated RBC # (auto) 0.02 K/uL (0-0); Nucleated RBC % (auto) 0.2 %; Platelet Count 287 K/uL (130-400); RDW Coefficient of Variation 17.1 % (11.5-14.5); RDW Standard Deviation 48.4 fL (36.4-46.3); Red Blood Count 4.21 M/uL (4.7-6.1); White Blood Count 9.75 K/uL (4.8-10.8)
[2020-05-06] MEDS: HEPARIN SOD 5,000 UNIT/0.5 ML VIAL SQ SCH (08:39)
[2020-05-06] MEDS: ASPIRIN 81 MG ECTAB PO SCH (08:39)
[2020-05-06] MEDS: FUROSEMIDE 40 MG in SYRINGE 0 ML IV SCH (08:40)
[2020-05-06] MEDS: ATORVASTATIN 40 MG TAB PO SCH (08:41)
[2020-05-06 08:49] LABS: BUN Creatinine Ratio 25.5 (10-20); Calcium 8.5 mg/dl (8.5-10.1); Creatinine Clr Calc Pharmacy 59.7 ml/min; Est GFR (African American) 90.9; Est GFR (Non-African American) 78.4
[2020-05-06] MEDS ORDERED: amLODIPine BESYLATE 5 MG TAB PO SCH (09:00)
[2020-05-06] MEDS ORDERED: predniSONE 20 MG TAB PO SCH (09:00)
[2020-05-06] MEDS: CEFEPIME 2,000 MG in SYRINGE 0 ML IV SCH (10:02)
[2020-05-06] MEDS: VANCOMYCIN HCL 750 MG in SODIUM CHLORIDE 0.9% 250 ML IV SCH (10:03)
--- NOTE | 2020-05-06 11:22 | Discharge Summary ---
Date of Service May 06, 2020 Admission HPI Per Admitting Provider This is a 75 y/o male with a PMH of CAD s/p CABG x 1, Aortic stenosis s/p bioprosthetic AVR, intermittent LBBB, HTN, dyslipidemia, and carcinoma of the oropharynx, palate and nasophayrnx s/p cisplatin, XRT, and dental extractions with resultant palatal defect but clear of disease since 2013 who presents today with progressive SOB and weakness over the past week. Pt reports that she started to feel poorly about a week ago with malaise, fatigue and some trouble breathing. He started to feel better over the weekend but has been worsening again since Tuesday. He reports that last night, he fell at home and was unable to get up for about half an hour but eventually maneuvered himself back up before collapsing in bed. He reports not sleeping at all last night due to the breathing. This morning he apparently fell again and was unable to get up. EMS was called and he was reported to have a PulseOx in the 50s on their arrival with improvement only to the 80s on NC so he was placed on a NRB with improvement of sats to the 90s. In the ED, he is currently on 10 L of O2 via mask with a sat in the low 90s. Over the past 24 hours, pt reports he has felt horrible with fatigue, generalized weakness, chills, and increasing shortness of breath, even at rest. He has a cough but relates more to drainage - it is productive of cee sputum. Denies hemoptysis. No significant wheezing but chest feels very tight. He is a former smoker having quit seven years ago - denies prior hx of asthma, COPD or other respiratory difficulties. He denies fever but has had chills. Appetite has been stable. He has been intermittently lightheaded. Denies significant peripheral edema. He lives alone. No known sick contacts. He has received both doses of the COVID vaccine. Admission Exam Per Admitting Provider Constitutional: WD/WN, vitals as above + ill appearing and + thin Eyes: + anicteric sclerae ENMT: palatal defect noted, no teeth Neck: trachea midline Respiratory: + labored breathing (mildly) Auscultation: + rales (throughout) and + wheezes (occasional faint ) Increased work of breathing but able to speak in sentences - does seem to fatigue after 2-3 sentences. Pulseox dropping intermittently with conversation to upper 80s. Cardiovascular: Rate/Rhythm: regular rate and regular rhythm Vessels: posterior tibial pulses present and radial pulses present; no carotid bruit Extremities: no calf tenderness and no pedal edema +valve click Gastrointestinal (Abdomen): Inspection/Auscultation: normal bowel sounds; abdomen not distended Percussion/Palpation: abdomen soft; abdomen nontender Musculoskeletal: Head/Neck/Chest: normocephalic, head atraumatic and neck supple Skin: no rashes, warm and dry Neurologic: moves all extremities; no focal motor deficits Psychiatric: A+Ox3, euthymic affect Principal Diagnosis See below Discharge Exam (1) Hypoxia: (2) CHF (congestive heart failure): (3) Bilateral interstitial pneumonia: (4) Hyperlipidemia: (5) Hypertension: (6) Palate abnormality: Discharge Data Allergies Allergy/AdvReac Type Severity Reaction Status Date / Time No Known Allergies Allergy Verified 11/01/18 07:36 Consultations 05/02/20 10:24 ED Decision to Admit Stat Ordered Studies 05/02/20 12:56 CT angio chest PE protocol Stat Current Diagnoses Hyperlipidemia, unspecified (05/02/20) Essential (primary) hypertension (05/02/20) Heart failure, unspecified (05/02/20) Interstitial pulmonary disease, unspecified (05/02/20) Congenital malformations of palate, not elsewhere classified (05/02/20) Hypoxemia (05/02/20) Allergies No Known Allergies Allergy (Verified 11/01/18 07:36) Height/Weight/Isolation Height 5 ft 7 in Weight 63.1 kg Isolation Type Contact Precautions Chemistry 05/06/20 07:52 Sodium 131 L Potassium 3.0 L Chloride 94 L Carbon Dioxide 35 H Anion Gap 3.0 BUN 24 H Creatinine 0.94 Glucose 65 L Microbiology 05/02/20 10:31 Blood Aerobic Blood Culture - Preliminary No growth in Aerobic bottle after 48 hours. 05/02/20 10:31 Blood Anaerobic Blood Culture - Preliminary No growth in Anaerobic bottle after 48 hours. 05/02/20 10:31 Blood Aerobic Blood Culture - Preliminary No growth in Aerobic bottle after 48 hours. 05/02/20 10:31 Blood Anaerobic Blood Culture - Preliminary No growth in Anaerobic bottle after 48 hours. Hospital Course (1) Hypoxia: Suspect multifactorial due to CHF and pneumonia - Off O2 - CTA of the chest neg for PE, +pulm edema (2) CHF (congestive heart failure): DC on Lasix and K (3) Bilateral interstitial pneumonia: DC on Omnicef and Doxy x 7 days (4) Hyperlipidemia: - Continue atorvastatin as taken at home (5) Hypertension: - Monitor (6) Palate abnormality: Pt on a minced and moist diet at home - will continue while admitted DC home today Code status: Full code POA: Son Anthony Labs Checked. ROS-No Headache, No Visual Changes, No Nausea, No Vomiting, No Fever, No Chills, No Neck Pain or Stiffness, No Chest Pain, No Palpitations, Less SOB, No DEGROOT, No Cough, No Sputum, No Wheezing, No Abdominal Pain, No Diarrhea, No Hematemesis, No Hemoptysis, No Unexpected Weight Loss, No Flank pain, No Melena, No Hematochezia, No Frequency, No Urgency, No Burning, No Hematuria, No Rashes, No Diaphoresis. Appetite is Normal Physical Exam Gen-AAO x 3, NAD, Afebrile, [place] Head-NCAT, EOMI, PERRLA, Anicteric Sclera, No Posterior Pharyngeal Erythema Neck-Supple, No JVD, No Thyromegaly, No Masses, No LAD, No Bruits Lungs-Clear to Auscultation Bilaterally, No Rales, No Rhonchi, No Wheezing, No Crepitus Chest-No S4, +S1, +S2, No S3, No Murmurs, No Rubs, No Gallops, No Ectopy Abdomen-Soft, Bowel Sounds Present, Non Tender, Non Distended, No Hepatomegaly, No Splenomegaly, No Palpable Masses, No Rebound, No Rigidity, No Guarding Musculoskeletal-Full Range of Motion Bilaterally, No CVAT Extremities-No Cyanosis, No Clubbing, No Edema Nuero-Cranial Nerves II-XII grossly intact, Motor WNL, DTRs WNL, Strength WNL, Non Focal Psych-Normal Mood Total Time Total Time Spent Total Time Spent (In Minutes): 45 mins Total Time Includes: Examination of the Patient, Discharge Planning, Medication Reconciliation and Communication With Other Providers Discharge Plan Discharge Items Patient Disposition: Home - Self-Care Reason For Visit: HYPOXIA Discharge Diagnosis: (1) Hypoxia: (2) CHF (congestive heart failure): (3) Bilateral interstitial pneumonia: (4) Hyperlipidemia: (5) Hypertension: (6) Palate abnormality: Condition on Discharge: Good Health Concerns: Recurrent CHF Activity: Resume your previous activity Bathing: No limitations Exercise/Sports: Gradually increase as tolerated Driving/Machine Use: No limitations Weightbearing: Full weightbearing Non-emergency contact: Primary Care Provider Call non-emergency contact if: you have any medication questions Follow-up/Referrals: Prudencio Burns MD [Primary Care Provider] - (Date & Time 05/08/2020 2:00 PM Provider Prudencio Burns III, MD Department [facility] ) Diet: Heart Healthy Fluids: 1500ml (6 cups) Addtl Attending Provider Instructions: Weigh yourself every day, if you gain 3 lbs or more, double your Lasix dose for 2 days, then go back to original dose if weight came off, else take double dose one more day, if retaining too much water call PCP Pending Studies at Discharge: No Studies:: DC after Potassium given Stand-Alone Forms: My Re.nooble, Smoking Cessation Medications and DC Order Prescriptions: New potassium chloride 20 mEq tablet extended release 20 meq PO BID Qty: 30 RF: 0 cefdinir 300 mg capsule 300 mg PO BID 7 Days Qty: 14 RF: 0 doxycycline monohydrate 100 mg capsule 100 mg PO BID 7 Days Qty: 14 RF: 0 albuterol sulfate [ProAir HFA] 90 mcg/actuation HFA aerosol inhaler 2 inh inhalation Q6H PRN (Reason: shortness of breath or wheezing) Qty: 8.5 RF: 0 furosemide [Lasix] 40 mg tablet 40 mg PO QAM Qty: 30 RF: 0 Continued atorvastatin 40 mg Tablet 40 mg PO DAILY RF: 0 hydralazine 10 mg Tablet 10 mg PO TID RF: 0 amlodipine 5 mg Tablet 5 mg PO BID RF: 0 aspirin 81 mg Tablet,Delayed Release (Dr/Ec) 81 mg PO QAM RF: 0 terazosin 2 mg Capsule 2 mg PO HS RF: 0 nitroglycerin 0.4 mg Tablet, Sublingual 0.4 mg sublingual UD PRN (Reason: Chest Pain) RF: 0 Discharge Orders: Discharge Order (Routine); Ordered 05/06/20 Ordered By: Stas Salguero/Other Patient Handouts: Heart Failure, Heart Failure: Tracking Your Weight Admission Data Admit Date/Time: 05/02/20 12:35 Attending Provider: Stas Short Admit Provider: Awilda Cartagena Primary Care Provider: Prudencio Burns Other Providers: Awilda Cartagena
[2020-05-06] MEDS: POTASSIUM CHLORIDE / WTR 10 MEQ/100 ML PLCT IV SCH ×3 (11:58→14:51)
[2020-05-07] MEDS ORDERED: VANCOMYCIN TROUGH ONE (09:30)
== END 2020-05-06 17:19 | disposition home or self-care (01) | DRG 197 ==
LOC: ED 08:04 → 2S 11:36 → SUATTDRO 12:35 → 2S 12:35 → 2W 05-05 13:04

== ENCOUNTER 2020-06-07 11:54 | Inpatient (IN) ==
--- NOTE | 2020-06-07 12:22 | Emergency Department Note ---
Impression & Plan Acute hypoxemic respiratory failure, Pneumonia ED Provider Note NAME: DAXA WRIGHT AGE: 75 SEX: M : 1945 ARRIVES VIA: Walk-In INFORMANT: Patient, ED PROVIDER(S): Raul Spivey MD Chief Complaint: Shortness of breath, lower oxygen HPI: Patient does present with concern for shortness of breath and lower home O2 saturations. The patient does have remote history of a recent inpatient stay for antibiotics due to pneumonia. The patient is a former smoker and last Motrin 2013. The patient is had increasing dyspnea on exertion. The patient has had a slightly productive cough. No known sick contacts. The patient has received both doses of Covid vaccine last completed at the end of April. Patie nt is not noticed any obvious weight gain or orthopnea. Patient denies any fevers or chills. Patient is not had any chest pain nausea or vomiting. Appetite has been okay. The patient had been seen in the outpatient setting recently was given a pulse oximeter and had noticed it to be in the higher 80s at home and thus presented to the emergency department. Patient does follow with Dr. Milton with cardiology. The patient has been out of his Lasix medication for approximately 2 days as he did not have any refills. The patient does not wear any oxygen at home. ROS: See HPI for pertinent positives and negatives. A total of 10 systems were reviewed and otherwise negative. Past medical history: See below Surgical history: See below Social history: See below Physical Exam: GENERAL: Wearing a mask. Nasal cannula was applied to the patient. EYE EXAM: Normal conjunctiva. PERRL, no anisocoria and EOM's grossly intact w/o pain. NECK: Supple, no nuchal rigidity, no adenopathy, non-tender. No signs of meningismus. LUNGS: Crackles throughout. Normal chest wall mechanics. HEART: NSR, no MRG. ABDOMEN: Abdomen soft, non-tender, normo-active bowel sounds, no masses, no rebound or guarding. BACK: No CVA TTP. SKIN: No rashes and no bruising. UPPER EXTREMITIES: Upper extremities are grossly normal. LOWER EXTREMITIES: Grossly normal, no edema. Negative Homans' sign bilaterally. NEURO EXAM: A&O x3, cranial nerves II-XII grossly intact, normal speech, moves all 4 extremities on command w/o issue. Differential diagnoses: Reactive airway disease, pneumonia, pneumothorax, COPD, CHF, infections, cardiac ischemia, pulmonary embolism, musculoskeletal, gastrointestinal, as well as other pathologies. Course: Patient was seen and evaluated the bedside. Full history physical exam was performed. EKG interpreted by me Indication: Shortness of breath Sinus bradycardia, rate of 59, normal intervals, normal axis, no ST changes or T WI. Imaging Studies: See below Cardiac monitoring: An order was placed for continuous cardiac monitoring. The monitor shows a rate of 66 with sinus rhythm. MDM: Patient did have blood work completed along with an EKG troponin and chest x- ray. Patient has a normal white count with mild anemia at 10. Platelet count is unremarkable. Patient's kidney function is unremarkable with mild hyponatremia 131. Patient does not have an elevated BNP and troponin is not detectable. Urinalysis negative. The patient was empirically covered with Zosy n and did have a MRSA swab completed along with Covid flu and RSV. MRSA Covid flu and RSV negative. Upon reassessment the patient was comfortable on his 2 L of oxygen. I did speak with the on-call hospitalist Dr. Cartagena and the patient was admitted to the medicine service. Critical Care: I have personally spent 42 minutes of critical care time in direct management of this patient. This includes bedside care, interpretation of diagnostic studies, and testing, discussion with consultants, patient, and family members, and other require inpatient management activities. This 42 minutes is in excess of all separately billable procedures. 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 Milton- [facility]/ NO STENTS History of cataract surgery History of colonoscopy with polypectomy 09/25/2018. Propofol given, no issues. History of coronary artery bypass graft One vessel - 2017 - [facility] History of heart valve replacement Bioprosthetic aortic valve - [facility] 2016 History of shoulder surgery RIGHT History of tonsillectomy History of tooth extraction History of vascular access device NO LONGER HAS PORT Status post insertion of percutaneous endoscopic gastrostomy (PEG) tube PLACED DUE TO PALATE SURGERY- THEN REMOVED 2014 Family History Father Cancer Liver Cancer Social History Smoking Status: Never smoker Second Hand Exposure: No; Hx Alcohol Use: No Hx Substance Use: No Preferred Language: Pashto Communication Ability: Impaired Speech Language Pathologist Prn Required: No Beliefs That Will Affect Care: None Current Living Situation: Alone Feels Safe at Home: Yes Assistive Devices: Walker Allergies Allergies Allergy/AdvReac Type Severity Reaction Status Date / Time No Known Allergies Allergy Verified 06/07/20 14:20 Home Meds Home Medications Medication Instructions Recorded Confirmed amlodipine 5 mg PO BID 09/18/18 06/07/20 aspirin 81 mg PO QAM 09/18/18 06/07/20 atorvastatin 40 mg PO QAM 09/18/18 06/07/20 hydralazine 10 mg PO TID 09/18/18 06/07/20 nitroglycerin 0.4 mg SUBLINGUAL UD PRN 09/18/18 06/07/20 terazosin 2 mg PO HS 09/18/18 06/07/20 Previous Rx's Medication Instructions Recorded albuterol sulfate [ProAir HFA] 2 inh INHALATION Q6H PRN #8.5 g 05/06/20 furosemide [Lasix] 40 mg PO QAM #30 tab 05/06/20 potassium chloride 20 meq PO BID #30 tab 05/06/20 Results & Data (ED) Vital Signs Vital Signs - 24 hr 06/07/20 12:07 06/07/20 12:30 06/07/20 12:35 Temperature 36.4 C L Temperature Source Temporal Artery Scan Pulse Rate 67 67 Pulse Rate [Left Finger] 66 Pulse Rate from SpO2 Sensor 69 Pulse Rhythm [Left Finger] Regular Pulse Strength [Left Finger] Normal Respiratory Rate 18 18 22 Respiratory Effort / Characteristics Non-Labored Non-Labored Respiratory Depth Normal Normal Respiratory Pattern Regular Blood Pressure 139/65 Blood Pressure [Left Arm] 115/61 Blood Pressure Mean 89 Blood Pressure Mean [Left Arm] 79 Blood Pressure Position [Left Arm] Pulse Oximetry 87 L 95 94 Oxygen Delivery Method Nasal Cannula Oxygen Flow Rate 2 Sepsis Recent Fever Within 48 Hours No Sepsis New/Unexplained Change in Mental Status No Sepsis Action Taken by Nursing No Action Required Oxygen Flow Rate - Titration 2 Pulse Oximetry Post Tiitration 95 06/07/20 12:45 06/07/20 13:00 06/07/20 13:30 Temperature Temperature Source Pulse Rate 90 67 64 Pulse Rate [Left Finger] Pulse Rate from SpO2 Sensor 67 67 62 Pulse Rhythm [Left Finger] Pulse Strength [Left Finger] Respiratory Rate 14 25 H 11 L Respiratory Effort / Characteristics Respiratory Depth Respiratory Pattern Blood Pressure 115/61 118/66 118/61 Blood Pressure [Left Arm] Blood Pressure Mean 79 83 80 Blood Pressure Mean [Left Arm] Blood Pressure Position [Left Arm] Pulse Oximetry 96 94 96 Oxygen Delivery Method Oxygen Flow Rate Sepsis Recent Fever Within 48 Hours Sepsis New/Unexplained Change in Mental Status Sepsis Action Taken by Nursing Oxygen Flow Rate - Titration Pulse Oximetry Post Tiitration 06/07/20 14:00 06/07/20 14:04 06/07/20 14:30 Temperature Temperature Source Pulse Rate 63 61 Pulse Rate [Left Finger] 65 Pulse Rate from SpO2 Sensor 63 61 Pulse Rhythm [Left Finger] Regular Pulse Strength [Left Finger] Respiratory Rate 13 15 13 Respiratory Effort / Characteristics Respiratory Depth Normal Respiratory Pattern Blood Pressure 116/60 121/64 Blood Pressure [Left Arm] 116/60 Blood Pressure Mean 78 83 Blood Pressure Mean [Left Arm] 78 Blood Pressure Position [Left Arm] Semi-fowlers Pulse Oximetry 96 97 97 Oxygen Delivery Method Nasal Cannula Oxygen Flow Rate 2 Sepsis Recent Fever Within 48 Hours Sepsis New/Unexplained Change in Mental Status Sepsis Action Taken by Nursing Oxygen Flow Rate - Titration Pulse Oximetry Post Tiitration 06/07/20 15:00 06/07/20 15:30 06/07/20 15:31 Temperature Temperature Source Pulse Rate 61 73 72 Pulse Rate [Left Finger] Pulse Rate from SpO2 Sensor 61 76 Pulse Rhythm [Left Finger] Pulse Strength [Left Finger] Respiratory Rate 10 L 17 24 Respiratory Effort / Characteristics Respiratory Depth Respiratory Pattern Blood Pressure 118/66 120/81 Blood Pressure [Left Arm] Blood Pressure Mean 83 94 Blood Pressure Mean [Left Arm] Blood Pressure Position [Left Arm] Pulse Oximetry 98 90 Oxygen Delivery Method Oxygen Flow Rate Sepsis Recent Fever Within 48 Hours Sepsis New/Unexplained Change in Mental Status Sepsis Action Taken by Nursing Oxygen Flow Rate - Titration Pulse Oximetry Post Tiitration 06/07/20 16:00 Temperature Temperature Source Pulse Rate Pulse Rate [Left Finger] 60 Pulse Rate from SpO2 Sensor Pulse Rhythm [Left Finger] Regular Pulse Strength [Left Finger] Normal Respiratory Rate 14 Respiratory Effort / Characteristics Non-Labored Respiratory Depth Normal Respiratory Pattern Blood Pressure Blood Pressure [Left Arm] 122/70 Blood Pressure Mean Blood Pressure Mean [Left Arm] 87 Blood Pressure Position [Left Arm] Pulse Oximetry 98 Oxygen Delivery Method Nasal Cannula Oxygen Flow Rate 2 Sepsis Recent Fever Within 48 Hours Sepsis New/Unexplained Change in Mental Status Sepsis Action Taken by Nursing Oxygen Flow Rate - Titration Pulse Oximetry Post Tiitration Home Medications Current Medication List: was personally reviewed by me Laboratory Data Attestation: I reviewed the patient's lab results. Result diagrams: 06/07/20 12:30 06/07/20 12:30 Lab Results 06/07/20 06/07/20 06/07/20 Range/Units 12:30 12:30 12:30 WBC 5.98 (4.8-10.8) K/uL RBC 4.05 L (4.7-6.1) M/uL Hgb 10.1 L (14.0-18.0) g/dL Hct 32.1 L (42-52) % MCV 79.3 L (80-100) fL MCH 24.9 L (25-34) pg MCHC 31.5 L (32-36) g/dL RDW Std Deviation 54.0 H (36.4-46.3) fL RDW Coeff of Navid 18.4 H (11.5-14.5) % Plt Count 276 (130-400) K/uL MPV 8.4 (7.4-10.4) fL Immature Gran % (Auto) 0.3 % Neut % (Auto) 78.5 % Lymph % (Auto) 11.2 % [place] % (Auto) 9.0 % Eos % (Auto) 0.8 % Baso % (Auto) 0.2 % Neut # (Auto) 4.69 (1.4-6.5) K/uL Lymph # (Auto) 0.67 L (1.2-3.4) K/uL [place] # (Auto) 0.54 (0.11-0.59) K/uL Eos # (Auto) 0.05 (0-0.5) K/uL Baso # (Auto) 0.01 (0-0.2) K/uL Immature Gran # (Auto) 0.02 (0.00-0.02) K/uL PT 11.4 (9.0-12.0) Seconds INR 1.1 (0.9-1.1) APTT 31.2 H (21.0-31.0) Seconds PTT Ratio 1.2 Sodium 131 L (136-145) mmol/L Potassium 4.1 (3.5-5.1) mmol/L Chloride 96 L (98-107) mmol/L Carbon Dioxide 31 (21-32) mmol/L Anion Gap 5.0 (3-11) BUN 14 (7-18) mg/dl Creatinine 1.04 (0.6-1.4) mg/dl Est Cr Clr Drug Dosing 55.7 ml/min Est GFR ( Amer) 80.5 Est GFR (Non-Af Amer) 69.4 BUN/Creatinine Ratio 13.8 (10-20) Glucose 86 (70-99) mg/dl Calcium 8.8 (8.5-10.1) mg/dl Total Bilirubin 0.4 (0.2-1) mg/dl AST 22 (15-37) U/L ALT 15 (12-78) U/L Alkaline Phosphatase 97 (45-117) U/L Troponin I < 0.015 (0-0.045) ng/ml NT-Pro-B Natriuret Pep 577 (0-1800) pg/ml Total Protein 7.0 (6.4-8.2) gm/dl Albumin 2.8 L (3.4-5.0) gm/dl Globulin 4.2 H (2.5-4.0) gm/dl Albumin/Globulin Ratio 0.7 L (0.9-2) Prolactin ng/ml Urine Color Urine Appearance (Clear) Urine pH (4.5-7.5) Ur Specific [place] (1.000-1.030) Urine Protein (Negative) Urine Glucose (UA) (Negative) Urine Ketones (Negative) Urine Blood (Negative) Urine Nitrite (Negative) Urine Bilirubin (Negative) Urine Urobilinogen (Negative) Ur Leukocyte Esterase (Negative) Nasal Screen MRSA (PCR) (Negative) COVID-19 Eval Order SARS-CoV-2 (PCR) (Negative) Influenza Type A (PCR) (Neg) Influenza Type B (PCR) (Neg) RSV (RT-PCR) (Neg) 06/07/20 06/07/20 06/07/20 Range/Units 12:30 13:15 13:15 WBC (4.8-10.8) K/uL RBC (4.7-6.1) M/uL Hgb (14.0-18.0) g/dL Hct (42-52) % MCV (80-100) fL MCH (25-34) pg MCHC (32-36) g/dL RDW Std Deviation (36.4-46.3) fL RDW Coeff of Navid (11.5-14.5) % Plt Count (130-400) K/uL MPV (7.4-10.4) fL Immature Gran % (Auto) % Neut % (Auto) % Lymph % (Auto) % [place] % (Auto) % Eos % (Auto) % Baso % (Auto) % Neut # (Auto) (1.4-6.5) K/uL Lymph # (Auto) (1.2-3.4) K/uL [place] # (Auto) (0.11-0.59) K/uL Eos # (Auto) (0-0.5) K/uL Baso # (Auto) (0-0.2) K/uL Immature Gran # (Auto) (0.00-0.02) K/uL PT (9.0-12.0) Seconds INR (0.9-1.1) APTT (21.0-31.0) Seconds PTT Ratio Sodium (136-145) mmol/L Potassium (3.5-5.1) mmol/L Chloride (98-107) mmol/L Carbon Dioxide (21-32) mmol/L Anion Gap (3-11) BUN (7-18) mg/dl Creatinine (0.6-1.4) mg/dl Est Cr Clr Drug Dosing ml/min Est GFR ( Amer) Est GFR (Non-Af Amer) BUN/Creatinine Ratio (10-20) Glucose (70-99) mg/dl Calcium (8.5-10.1) mg/dl Total Bilirubin (0.2-1) mg/dl AST (15-37) U/L ALT (12-78) U/L Alkaline Phosphatase (45-117) U/L Troponin I (0-0.045) ng/ml NT-Pro-B Natriuret Pep (0-1800) pg/ml Total Protein (6.4-8.2) gm/dl Albumin (3.4-5.0) gm/dl Globulin (2.5-4.0) gm/dl Albumin/Globulin Ratio (0.9-2) Prolactin 13.77 ng/ml Urine Color Urine Appearance (Clear) Urine pH (4.5-7.5) Ur Specific [place] (1.000-1.030) Urine Protein (Negative) Urine Glucose (UA) (Negative) Urine Ketones (Negative) Urine Blood (Negative) Urine Nitrite (Negative) Urine Bilirubin (Negative) Urine Urobilinogen (Negative) Ur Leukocyte Esterase (Negative) Nasal Screen MRSA (PCR) Negative (Negative) COVID-19 Eval Order CovFluRsv at [facility] SARS-CoV-2 (PCR) (Negative) Influenza Type A (PCR) (Neg) Influenza Type B (PCR) (Neg) RSV (RT-PCR) (Neg) 06/07/20 06/07/20 Range/Units 13:15 Unknown WBC (4.8-10.8) K/uL RBC (4.7-6.1) M/uL Hgb (14.0-18.0) g/dL Hct (42-52) % MCV (80-100) fL MCH (25-34) pg MCHC (32-36) g/dL RDW Std Deviation (36.4-46.3) fL RDW Coeff of Navid (11.5-14.5) % Plt Count (130-400) K/uL MPV (7.4-10.4) fL Immature Gran % (Auto) % Neut % (Auto) % Lymph % (Auto) % [place] % (Auto) % Eos % (Auto) % Baso % (Auto) % Neut # (Auto) (1.4-6.5) K/uL Lymph # (Auto) (1.2-3.4) K/uL [place] # (Auto) (0.11-0.59) K/uL Eos # (Auto) (0-0.5) K/uL Baso # (Auto) (0-0.2) K/uL Immature Gran # (Auto) (0.00-0.02) K/uL PT (9.0-12.0) Seconds INR (0.9-1.1) APTT (21.0-31.0) Seconds PTT Ratio Sodium (136-145) mmol/L Potassium (3.5-5.1) mmol/L Chloride (98-107) mmol/L Carbon Dioxide (21-32) mmol/L Anion Gap (3-11) BUN (7-18) mg/dl Creatinine (0.6-1.4) mg/dl Est Cr Clr Drug Dosing ml/min Est GFR ( Amer) Est GFR (Non-Af Amer) BUN/Creatinine Ratio (10-20) Glucose (70-99) mg/dl Calcium (8.5-10.1) mg/dl Total Bilirubin (0.2-1) mg/dl AST (15-37) U/L ALT (12-78) U/L Alkaline Phosphatase (45-117) U/L Troponin I (0-0.045) ng/ml NT-Pro-B Natriuret Pep (0-1800) pg/ml Total Protein (6.4-8.2) gm/dl Albumin (3.4-5.0) gm/dl Globulin (2.5-4.0) gm/dl Albumin/Globulin Ratio (0.9-2) Prolactin ng/ml Urine Color Yellow Urine Appearance Clear (Clear) Urine pH 7.5 (4.5-7.5) Ur Specific [place] 1.013 (1.000-1.030) Urine Protein Negative (Negative) Urine Glucose (UA) Negative (Negative) Urine Ketones Negative (Negative) Urine Blood Negative (Negative) Urine Nitrite Negative (Negative) Urine Bilirubin Negative (Negative) Urine Urobilinogen Negative (Negative) Ur Leukocyte Esterase Negative (Negative) Nasal Screen MRSA (PCR) (Negative) COVID-19 Eval Order SARS-CoV-2 (PCR) NEGATIVE (Negative) Influenza Type A (PCR) Negative (Neg) Influenza Type B (PCR) Negative (Neg) RSV (RT-PCR) Negative (Neg) Administered Medications Discontinued Medications Furosemide (Furosemide 40 Mg/4 Ml Vial) 40 mg IV NOW ONE Stop: 06/07/20 15:46 Last Admin: 06/07/20 15:54 Dose: 40 mg Documented by: [id number] Imaging Data Radiologist's Impression: Chest X-Ray 06/07/20 12:47 XR chest 1V portable CLINICAL HISTORY: Dyspnea COMPARISON STUDY: 04/04/2020 FINDINGS: There are postsurgical changes of a midline sternotomy. The heart is mildly enlarged. Small pleural effusions are suspected. There is persistent but improving interstitial thickening. Congestive failure with pulmonary edema suspected although a bilateral interstitial infectious/inflammatory process could appear similar. Clinical and radiographic follow-up are recommended[ IMPRESSION: 1. Persistent but improving interstitial thickening. Congestive failure with mild pulmonary edema suspected although a bilateral interstitial infectious/inflammatory process could appear similar. Clinical and radiographic follow-up are recommended. ACT 112: Negative or not required by law. Electronically signed by: Isacc Sánchez M.D. 06/07/2020 2:04 PM Discharge Plan Visit Data Chief Complaint: Shortness of Breath/Dyspnea Stated Complaint: FLUID ON LUNGS,LOW OXYGEN ED Provider: Raul Spivey Discharge Problem: Acute hypoxemic respiratory failure, Pneumonia Forms Stand Alone Forms: My [employer] Prescriptions Prescriptions: No Action atorvastatin 40 mg Tablet 40 mg PO QAM RF: 0 hydralazine 10 mg Tablet 10 mg PO TID RF: 0 amlodipine 5 mg Tablet 5 mg PO BID RF: 0 aspirin 81 mg Tablet,Delayed Release (Dr/Ec) 81 mg PO QAM RF: 0 terazosin 2 mg Capsule 2 mg PO HS RF: 0 nitroglycerin 0.4 mg Tablet, Sublingual 0.4 mg sublingual UD PRN (Reason: Chest Pain) RF: 0 potassium chloride 20 mEq tablet extended release 20 meq PO BID Qty: 30 RF: 0 albuterol sulfate [ProAir HFA] 90 mcg/actuation HFA aerosol inhaler 2 inh inhalation Q6H PRN (Reason: shortness of breath or wheezing) Qty: 8.5 RF: 0 furosemide [Lasix] 40 mg tablet 40 mg PO QAM Qty: 30 RF: 0 Discharge Problem: Pneumonia Qualifiers: Pneumonia type: due to unspecified organism Laterality: unspecified laterality Lung location: unspecified part of lung Qualified Code(s): J18.9 - Pneumonia, unspecified organism
[2020-06-07] MEDS ORDERED: PIPERACILL/TAZOBAC CONSULT ACTIVE PRN (12:47)
[2020-06-07] MEDS ORDERED: PIPERACILLIN/TAZOBACTAM 4.5 GM/120 ML BAG IV ONE (12:47)
[2020-06-07 13:34] LABS: Basophils # (auto) 0.01 K/uL (0-0.2); Basophils % (auto) 0.2 %; Eosinophils # (auto) 0.05 K/uL (0-0.5); Eosinophils % (auto) 0.8 %; Hematocrit (blood only) 32.1 % (42-52); Hemoglobin 10.1 g/dL (14.0-18.0); Immature Granulocytes # (auto) 0.02 K/uL (0.00-0.02); Immature Granulocytes % (auto) 0.3 %; Lymphocytes # (auto) 0.67 K/uL (1.2-3.4); Lymphocytes % (auto) 11.2 %; Mean Corpuscular Hemoglobin 24.9 pg (25-34); Mean Corpuscular Hgb Conc 31.5 g/dL (32-36); Mean Corpuscular Volume 79.3 fL (80-100); Mean Platelet Volume 8.4 fL (7.4-10.4); Monocytes # (auto) 0.54 K/uL (0.11-0.59); Neutrophils # (auto) 4.69 K/uL (1.4-6.5); Neutrophils % (auto) 78.5 %; Platelet Count 276 K/uL (130-400); RDW Coefficient of Variation 18.4 % (11.5-14.5); Red Blood Count 4.05 M/uL (4.7-6.1); White Blood Count 5.98 K/uL (4.8-10.8)
[2020-06-07 13:45] LABS: INR 1.1 (0.9-1.1); Partial Thromboplastin Ratio 1.2; Partial Thromboplastin Time 31.2 Seconds (21.0-31.0); Prothrombin Time 11.4 Seconds (9.0-12.0)
[2020-06-07 13:58] LABS: Alanine Aminotransferase 15 U/L (12-78); Albumin Globulin Ratio 0.7 (0.9-2); Albumin Level 2.8 gm/dl (3.4-5.0); Alkaline Phosphatase 97 U/L (45-117); Aspartate Aminotransferase 22 U/L (15-37); BUN Creatinine Ratio 13.8 (10-20); Bilirubin,Total 0.4 mg/dl (0.2-1); Blood Urea Nitrogen 14 mg/dl (7-18); Calcium 8.8 mg/dl (8.5-10.1); Carbon Dioxide 31 mmol/L (21-32); Chloride 96 mmol/L (98-107); Creatinine Clr Calc Pharmacy 55.7 ml/min; Est GFR (African American) 80.5; Est GFR (Non-African American) 69.4; Globulin 4.2 gm/dl (2.5-4.0); Glucose 86 mg/dl (70-99); NT Pro B Type Natriuretic Pept 577 pg/ml (0-1800); Potassium 4.1 mmol/L (3.5-5.1); Sodium 131 mmol/L (136-145); Troponin I < 0.015 ng/ml (0-0.045)
--- NOTE | 2020-06-07 14:06 | XRay Report ---
XR chest 1V portable CLINICAL HISTORY: Dyspnea COMPARISON STUDY: 04/04/2020 FINDINGS: There are postsurgical changes of a midline sternotomy. The heart is mildly enlarged. Small pleural effusions are suspected. There is persistent but improving interstitial thickening. Congesti ve failure with pulmonary edema suspected although a bilateral interstitial infectious/inflammatory p rocess could appear similar. Clinical and radiographic follow-up are recommended[ IMPRESSION: 1. Persistent but improving interstitial thickening. Congestive failure with mild pulmonary edema dmitriy pected although a bilateral interstitial infectious/inflammatory process could appear similar. Clinic al and radiographic follow-up are recommended. ACT 112: Negative or not required by law. Electronically signed by: Isacc Sánchez M.D. 06/07/2020 2:04 PM
[2020-06-07 14:12] LABS: Appearance Urine Clear (Clear); Bilirubin Urine Negative (Negative); Blood Urine Negative (Negative); Color Urine Yellow; Glucose Urine UA Negative (Negative); Ketones Urine Negative (Negative); Leukocyte Esterase Urine Negative (Negative); Nitrite Urine Negative (Negative); Protein Urine Negative (Negative); Specific Gravity Urine 1.013 (1.000-1.030); Urobilinogen Urine Negative (Negative); pH Urine 7.5 (4.5-7.5)
[2020-06-07 14:23] LABS: Influenza A virus by PCR Negative (Neg); Influenza B virus by PCR Negative (Neg); RSV by PCR Negative (Neg); SARS CoV2 RNA(COVID-19) InHosp NEGATIVE (Negative)
[2020-06-07] MEDS ORDERED: FUROSEMIDE 40 MG/4 ML VIAL IV ONE (15:45)
--- NOTE | 2020-06-07 15:54 | History & Physical Report ---
Date of Service June 07, 2020 Assessment & Plan (1) CHF (congestive heart failure): History of aortic valvular disease status post AVR Last echo did show EF of 50 to 55% CHF secondary to valvular heart disease mainly aortic valve Chest x-ray is compatible with CHF Has not been taking Lasix for the last 2 to 3 days Will start Lasix 40 mg daily and monitor PRP Doubt any pneumonia No signs and/or symptoms of pneumonia Received 1 dose of Zosyn in the emergency room (2) Hypertension: Blood pressure remains stable (3) Hyperlipidemia: Continue statin (4) History of nasopharyngeal cancer: No acute issue Has ongoing cough with minimal phlegm (5) History of heart valve replacement: As above (6) History of coronary artery bypass graft: No acute cardiac symptoms DVT prophylaxis Subcu heparin CODE STATUS Full History of Present Illness Chief Complaint: Generalized weakness and noted to be desaturation below 89 at home Primary Care Provider: Prudencio Burns MD Is a 75 years old male with significant past medical history of CAD status post CABG x1, aortic stenosis status post bioprosthetic AVR, hypertension, hyperlipidemia and carcinoma of the oropharynx, palate and nasopharynx status post cisplatin, XRT and dental extractions has been complaining of more weakness for the last few days to weeks and noted to have low oxygen saturation around upper 80s at home by the visiting nurse. He was seen by outpatient [facility] clinic today and was sent into the emergency room with possible diagnosis of CHF. Denies any fever, chills or any sweating. Denies any more cough than usual or any phlegm. Denies any chest pain and/or palpitation. No history of weight gain and legs are not seems to be edematous as per the patient. Apparently he has not been taking his furosemide for the last 2 to 3 days. He was noted to be in mild CHF as per the x-ray but BNP remained negative. He was admitted in medical telemetry unit for continuation of care. Allergies Allergy/AdvReac Type Severity Reaction Status Date / Time No Known Allergies Allergy Verified 06/07/20 14:20 Home Medications Medication Instructions Recorded Confirmed Type amlodipine 5 mg PO BID 09/18/18 06/07/20 History aspirin 81 mg PO QAM 09/18/18 06/07/20 History atorvastatin 40 mg PO QAM 09/18/18 06/07/20 History hydralazine 10 mg PO TID 09/18/18 06/07/20 History nitroglycerin 0.4 mg SUBLINGUAL UD PRN 09/18/18 06/07/20 History terazosin 2 mg PO HS 09/18/18 06/07/20 History albuterol sulfate [ProAir HFA] 2 inh INHALATION Q6H PRN #8.5 g 05/06/20 06/07/20 Rx furosemide [Lasix] 40 mg PO QAM #30 tab 05/06/20 06/07/20 Rx potassium chloride 20 meq PO BID #30 tab 05/06/20 06/07/20 Rx Past Med/Surg History Medical History (Updated 06/07/20 @ 17:21 by Raul Spivey MD) Cardiac murmur CHILD FROM RHEUMATIC FEVER CKD (chronic kidney disease) stage 3, GFR 30-59 ml/min Former tobacco use Hearing deficit BILAT History of AR (myocardial infarction) 2017/ [facility] History of nasopharyngeal cancer s/p radiation, chemo- NO PORT ANYMORE CLEARED NOV 2013 History of rheumatic fever Hyperlipidemia Hypertension Left bundle branch block (LBBB) Palate abnormality prosthetic palate Surgical History (Updated 06/07/20 @ 15:54 by Awilda Cartagena MD) History of cardiac cath 2017 - AR --> CABG - [facility]- follows w/ Dr. Milton- [facility]/ NO STENTS History of cataract surgery History of colonoscopy with polypectomy 09/25/2018. Propofol given, no issues. History of coronary artery bypass graft [facility] History of heart valve replacement Bioprosthetic aortic valve - [facility] 2016 History of shoulder surgery RIGHT History of tonsillectomy History of tooth extraction History of vascular access device NO LONGER HAS PORT Status post insertion of percutaneous endoscopic gastrostomy (PEG) tube PLACED DUE TO PALATE SURGERY- THEN REMOVED 2014 Family History Father Cancer Liver Cancer Social History Smoking Status: Never smoker Second Hand Exposure: No; Hx Alcohol Use: No Hx Substance Use: No Preferred Language: Syriac Communication Ability: Impaired Prune Washer Required: No Beliefs That Will Affect Care: None Current Living Situation: Alone Feels Safe at Home: Yes Assistive Devices: Walker Review of Systems Review of Systems: All systems reviewed & are unremarkable except as noted in HPI & below Physical Exam Physical Exam: Lying in bed comfortably Constitutional: average body habitus; not ill appearing Eyes: PERRL, conjunctivae normal, anicteric sclerae ENMT: Has deformities in the upper palate Neck: trachea midline, no thyromegaly Respiratory: no respiratory distress (At rest) Auscultation: + diminished lung sounds and + crackles (Bibasilar crackles more on the right than the left side) Gastrointestinal (Abdomen): Inspection/Auscultation: normal bowel sounds; abdomen not distended Percussion/Palpation: abdomen soft; abdomen nontender Musculoskeletal: No acute arthritis in any joint Neurologic: Alert, awake and oriented x3. No focal sensory and motor deficit appreciated Psychiatric: A+Ox3, euthymic affect Lymphatic: no cervical or axillary lymphadenopathy Results & Data Results & Data ([facility]) Vital Signs (Past 12 Hours) Vital Signs Temp Pulse Pulse Resp BP BP Pulse Ox 06/07/20 14:04 65 15 116/60 97 06/07/20 14:00 63 13 116/60 96 06/07/20 13:30 64 11 L 118/61 96 06/07/20 13:00 67 25 H 118/66 94 06/07/20 12:45 90 14 115/61 96 06/07/20 12:35 67 22 94 06/07/20 12:30 66 18 115/61 95 06/07/20 12:07 36.4 C L 67 18 139/65 87 L Laboratory Results Short CBC 06/07/20 Range/Units 12:30 WBC 5.98 (4.8-10.8) K/uL Hgb 10.1 L (14.0-18.0) g/dL Hct 32.1 L (42-52) % Plt Count 276 (130-400) K/uL BMP 06/07/20 12:30 Sodium 131 L Potassium 4.1 Chloride 96 L Carbon Dioxide 31 BUN 14 Creatinine 1.04 Glucose 86 Calcium 8.8 Cardiac Enzymes 06/07/20 Range/Units 12:30 Troponin I < 0.015 (0-0.045) ng/ml Liver Function 06/07/20 Range/Units 12:30 Total Bilirubin 0.4 (0.2-1) mg/dl AST 22 (15-37) U/L ALT 15 (12-78) U/L Alkaline Phosphatase 97 (45-117) U/L Albumin 2.8 L (3.4-5.0) gm/dl Urine 06/07/20 Range/Units Unknown Urine Color Yellow Urine Appearance Clear (Clear) Urine pH 7.5 (4.5-7.5) Ur Specific [place] 1.013 (1.000-1.030) Urine Protein Negative (Negative) Urine Glucose (UA) Negative (Negative) Medications Administered Current Inpatient Medications Furosemide (Furosemide 40 Mg/4 Ml Vial) 40 mg IV DAILY ROYA Stop: 07/08/20 08:59 Miscellaneous Information (Piperacill/Tazobac Consult Active) 1 ea N/A UD PRN PRN Reason: Consult Stop: 07/07/20 12:46 Code Status & VTE Plan VTE Prophylaxis Plan VTE Prophylaxis will be ordered: Yes
[2020-06-07] MEDS ORDERED: NITROGLYCERIN SL 0.4 MG/TAB TAB SL PRN (17:54)
[2020-06-07] MEDS ORDERED: ALBUTEROL HFA INHALER 8.5 GM INH PRN (18:02)
[2020-06-07] MEDS: HEPARIN SOD 5,000 UNIT/0.5 ML VIAL SQ SCH (20:22)
[2020-06-07] MEDS: amLODIPine BESYLATE 5 MG TAB PO SCH (20:22)
[2020-06-07] MEDS: POTASSIUM CHLORIDE CRTAB 20 MEQ TABCR PO SCH (20:23)
[2020-06-07] MEDS: TERAZOSIN HCL 1 MG CAP PO SCH (20:23)
[2020-06-07] MEDS: hydrALAZINE 10 MG TAB PO SCH (20:23)
[2020-06-08] MEDS: ATORVASTATIN 40 MG TAB PO SCH (07:51)
[2020-06-08] MEDS: ASPIRIN 81 MG ECTAB PO SCH (07:52)
[2020-06-08] MEDS: POTASSIUM CHLORIDE CRTAB 20 MEQ TABCR PO SCH ×2 (07:53→19:46)
[2020-06-08] MEDS: amLODIPine BESYLATE 5 MG TAB PO SCH ×2 (08:13→19:46)
[2020-06-08] MEDS: hydrALAZINE 10 MG TAB PO SCH ×3 (08:13→19:46)
[2020-06-08] MEDS ORDERED: FUROSEMIDE 40 MG/4 ML VIAL IV SCH (09:00)
[2020-06-08] MEDS: FUROSEMIDE 40 MG in SYRINGE 0 ML IV SCH (09:35)
[2020-06-08] MEDS: HEPARIN SOD 5,000 UNIT/0.5 ML VIAL SQ SCH ×2 (09:35→19:46)
--- NOTE | 2020-06-08 12:26 | Hospitalist Progress Note ---
Date of Service June 08, 2020 Assessment & Plan (1) CHF (congestive heart failure): History of aortic valvular disease status post AVR Last echo did show EF of 50 to 55% CHF secondary to valvular heart disease mainly aortic valve Chest x-ray is compatible with CHF Has not been taking Lasix for the last 2 to 3 days Will start Lasix 40 mg daily and monitor PRP Clinically much better today We will get to do steps O2 saturation test before discharging home tomorrow Doubt any pneumonia No signs and/or symptoms of pneumonia Received 1 dose of Zosyn in the emergency room No fever and/or chills and no white count or increasing differential count (2) Hypertension: Blood pressure remains stable Blood pressure remains on the lower side and hydralazine is on hold today (3) Hyperlipidemia: Continue statin (4) History of nasopharyngeal cancer: No acute issue Has ongoing cough with minimal phlegm (5) History of heart valve replacement: As above (6) History of coronary artery bypass graft: No acute cardiac symptoms DVT prophylaxis Subcu heparin CODE STATUS Full Likely discharge tomorrow Admission and Anticipated Discharge Date Admission Date: June 07, 2020 Subjective 06/08/2020 The patient was seen and examined in medical telemetry unit He has been feeling much better today and denies any shortness of breath and/or palpitation He denies any fever and/or chills, any cough or sweating Review of Systems Review of Systems: All systems reviewed and are unremarkable except as noted below Respiratory: no dyspnea (No dyspnea at rest) Cardiovascular: no chest pain and no palpitations Physical Exam Physical Exam: Lying in bed comfortably Constitutional: average body habitus; not ill appearing Eyes: PERRL, conjunctivae normal, anicteric sclerae Neck: trachea midline, no thyromegaly Respiratory: no respiratory distress (At rest) Auscultation: + diminished lung sounds and + crackles (Bibasilar crackles which he seems to be decreasing) Cardiovascular: Rate/Rhythm: regular rate and regular rhythm Heart Sounds: + murmur (2/6 ejection murmur over precordium and aortic area) Extremities: + edema (Trace edema bilaterally) Gastrointestinal (Abdomen): Inspection/Auscultation: normal bowel sounds; abdomen not distended Percussion/Palpation: abdomen soft; abdomen nontender Musculoskeletal: No acute arthritis in any joint Neurologic: Alert, awake and oriented x3 Psychiatric: A+Ox3, euthymic affect Lymphatic: no cervical or axillary lymphadenopathy Results & Data Results & Data ([facility]) Vital Signs (Past 12 Hours) Vital Signs Temp Pulse Resp BP BP Pulse Ox 06/08/20 10:59 36.9 C 63 16 109/67 96 06/08/20 09:53 65 148/72 H 89 L 06/08/20 08:33 37.0 C 68 18 96/56 L 94 06/08/20 03:19 36.8 C 58 L 18 92/60 L 96 Laboratory Results Short CBC 06/07/20 Range/Units 12:30 WBC 5.98 (4.8-10.8) K/uL Hgb 10.1 L (14.0-18.0) g/dL Hct 32.1 L (42-52) % Plt Count 276 (130-400) K/uL BMP 06/07/20 12:30 Sodium 131 L Potassium 4.1 Chloride 96 L Carbon Dioxide 31 BUN 14 Creatinine 1.04 Glucose 86 Calcium 8.8 Cardiac Enzymes 06/07/20 Range/Units 12:30 Troponin I < 0.015 (0-0.045) ng/ml Liver Function 06/07/20 Range/Units 12:30 Total Bilirubin 0.4 (0.2-1) mg/dl AST 22 (15-37) U/L ALT 15 (12-78) U/L Alkaline Phosphatase 97 (45-117) U/L Albumin 2.8 L (3.4-5.0) gm/dl Urine 06/07/20 Range/Units Unknown Urine Color Yellow Urine Appearance Clear (Clear) Urine pH 7.5 (4.5-7.5) Ur Specific [place] 1.013 (1.000-1.030) Urine Protein Negative (Negative) Urine Glucose (UA) Negative (Negative) Medications Administered Current Inpatient Medications Albuterol (Albuterol Hfa Inhaler 8.5 Gm) 2 puffs INH Q6H PRN PRN Reason: SOB or Wheezing Stop: 07/07/20 18:01 Amlodipine Besylate (Amlodipine Besylate 5 Mg Tab) 5 mg PO BID ROYA Stop: 07/07/20 20:59 Last Admin: 06/08/20 08:13 Dose: Not Given Documented by: Aspirin (Aspirin 81 Mg Ectab) 81 mg PO QAM ROYA Stop: 07/08/20 08:59 Last Admin: 06/08/20 07:52 Dose: 81 mg Documented by: Atorvastatin Calcium (Atorvastatin 40 Mg Tab) 40 mg PO QAM [facility] Stop: 07/08/20 08:59 Last Admin: 06/08/20 07:51 Dose: 40 mg Documented by: Heparin Sodium (Porcine) (Heparin Sod 5,000 Unit/0.5 Ml Vial) 5,000 units SQ Q12 ROYA Stop: 07/07/20 20:59 Last Admin: 06/08/20 09:35 Dose: 5,000 units Documented by: Hydralazine HCl (Hydralazine 10 Mg Tab) 10 mg PO TID ROYA Stop: 07/07/20 20:59 Last Admin: 06/08/20 08:13 Dose: Not Given Documented by: Furosemide 40 mg/ Syringe 4 mls @ 4 mls/min IV QAM [facility] Stop: 07/08/20 08:59 Last Admin: 06/08/20 09:35 Dose: 4 mls/min Documented by: Nitroglycerin (Nitroglycerin Sl 0.4 Mg/Tab Tab) 0.4 mg SL UD PRN PRN Reason: Chest Pain Stop: 07/07/20 17:53 Potassium Chloride (Potassium Chloride Crtab 20 Meq Tabcr) 20 meq PO BID ROYA Stop: 07/07/20 20:59 Last Admin: 06/08/20 07:53 Dose: 20 meq Documented by: Terazosin HCl (Terazosin Hcl 1 Mg Cap) 2 mg PO HS ROYA Stop: 07/07/20 20:59 Last Admin: 06/07/20 20:23 Dose: 2 mg Documented by:
[2020-06-08] MEDS: TERAZOSIN HCL 1 MG CAP PO SCH (19:47)
--- NOTE | 2020-06-08 21:39 | Electrocardiogram Report ---
Test Reason : Blood Pressure : / mmHG Vent. Rate : 059 BPM Atrial Rate : 059 BPM P-R Int : 160 ms QRS Dur : 086 ms QT Int : 412 ms P-R-T Axes : 054 056 063 degrees QTc Int : 407 ms Sinus bradycardia Low voltage QRS Septal infarct , age undetermined Abnormal ECG When compared with ECG of 02-MAY-2020 08:09, Left bundle branch block is no longer Present Septal infarct is now Present Confirmed by Darion Vásquez ([id number]) on 06/08/2020 9:39:39 PM Referred By: Prudencio Burns Confirmed By:Darion Vásquez
[2020-06-09 07:14] LABS: BUN Creatinine Ratio 10.7 (10-20); Calcium 8.4 mg/dl (8.5-10.1); Creatinine Clr Calc Pharmacy 47.9 ml/min; Est GFR (African American) 74.4; Est GFR (Non-African American) 64.2; Magnesium 2.4 mg/dl (1.8-2.4); Potassium 4.4 mmol/L (3.5-5.1)
[2020-06-09] MEDS: amLODIPine BESYLATE 5 MG TAB PO SCH (08:01)
[2020-06-09] MEDS: ASPIRIN 81 MG ECTAB PO SCH (08:01)
[2020-06-09] MEDS: ATORVASTATIN 40 MG TAB PO SCH (08:01)
[2020-06-09] MEDS: HEPARIN SOD 5,000 UNIT/0.5 ML VIAL SQ SCH (08:02)
[2020-06-09] MEDS: hydrALAZINE 10 MG TAB PO SCH ×2 (08:02→13:28)
[2020-06-09] MEDS: POTASSIUM CHLORIDE CRTAB 20 MEQ TABCR PO SCH (08:03)
[2020-06-09] MEDS: FUROSEMIDE 40 MG in SYRINGE 0 ML IV SCH (08:09)
--- NOTE | 2020-06-09 11:08 | Hospitalist Progress Note ---
Date of Service June 09, 2020 Assessment & Plan (1) CHF (congestive heart failure): History of aortic valvular disease status post AVR Last echo did show EF of 50 to 55% CHF secondary to valvular heart disease mainly aortic valve Chest x-ray is compatible with CHF Has not been taking Lasix for the last 2 to 3 days Will start Lasix 40 mg daily and monitor PRP Clinically much better today Has had enough diuresis Denies any cardiac symptoms and/or shortness of breath Will get to do steps O2 saturation and PT and OT evaluation Likely discharge this afternoon Doubt any pneumonia No signs and/or symptoms of pneumonia Received 1 dose of Zosyn in the emergency room No fever and/or chills and no white count or increasing differential count (2) Hypertension: Blood pressure remains stable Blood pressure remains on the lower side and hydralazine is on hold today Blood pressure remains in the lower side of normal (3) Hyperlipidemia: Continue statin (4) History of nasopharyngeal cancer: No acute issue Has ongoing cough with minimal phlegm (5) History of heart valve replacement: As above (6) History of coronary artery bypass graft: No acute cardiac symptoms DVT prophylaxis Subcu heparin CODE STATUS Full Likely discharge this afternoon Admission and Anticipated Discharge Date Admission Date: June 07, 2020 Subjective 06/08/2020 The patient was seen and examined in medical telemetry unit He has been feeling much better today and denies any shortness of breath and/or palpitation He denies any fever and/or chills, any cough or sweating 06/09/2020 The patient was seen and examined in medical telemetry unit He has been doing much better and has had reasonable diuresis Denies any cardiac symptoms and no shortness of breath Generally weak Review of Systems Review of Systems: All systems reviewed and are unremarkable except as noted below Respiratory: no cough and no dyspnea Physical Exam Physical Exam: Lying in bed comfortably Constitutional: average body habitus; not ill appearing Eyes: PERRL, conjunctivae normal, anicteric sclerae Neck: trachea midline, no thyromegaly Respiratory: no respiratory distress (At rest) Auscultation: + diminished lung sounds and + crackles (Bibasilar crackles which he seems to be decreasing) Cardiovascular: Rate/Rhythm: regular rate and regular rhythm Heart Sounds: + murmur (2/6 ejection murmur over precordium and aortic area) Extremities: + edema (Trace edema bilaterally) Gastrointestinal (Abdomen): Inspection/Auscultation: normal bowel sounds; abdomen not distended Percussion/Palpation: abdomen soft; abdomen nontender Musculoskeletal: No acute arthritis in any joint Neurologic: Alert, awake and oriented x3. No focal sensory and motor deficit appreciated Psychiatric: A+Ox3, euthymic affect Lymphatic: no cervical or axillary lymphadenopathy Results & Data Results & Data ([facility]) Vital Signs (Past 12 Hours) Vital Signs Temp Pulse Pulse Resp BP BP Pulse Ox 06/09/20 07:42 36.5 C 72 18 105/66 93 06/09/20 07:10 66 06/09/20 04:00 36.8 C 76 16 102/64 99 Laboratory Results BMP 06/09/20 06:25 Sodium 136 Potassium 4.4 Chloride 101 Carbon Dioxide 33 H BUN 12 Creatinine 1.11 Glucose 69 L Calcium 8.4 L Medications Administered Current Inpatient Medications Albuterol (Albuterol Hfa Inhaler 8.5 Gm) 2 puffs INH Q6H PRN PRN Reason: SOB or Wheezing Stop: 07/07/20 18:01 Amlodipine Besylate (Amlodipine Besylate 5 Mg Tab) 5 mg PO BID ON [facility] OF [facility] Stop: 07/07/20 20:59 Last Admin: 06/09/20 08:01 Dose: 5 mg Documented by: Aspirin (Aspirin 81 Mg Ectab) 81 mg PO QAM ON LICENSE OF [facility] Stop: 07/08/20 08:59 Last Admin: 06/09/20 08:01 Dose: 81 mg Documented by: Atorvastatin Calcium (Atorvastatin 40 Mg Tab) 40 mg PO QAM ON [facility] OF [facility] Stop: 07/08/20 08:59 Last Admin: 06/09/20 08:01 Dose: 40 mg Documented by: Heparin Sodium (Porcine) (Heparin Sod 5,000 Unit/0.5 Ml Vial) 5,000 units SQ Q12 ROYA Stop: 07/07/20 20:59 Last Admin: 06/09/20 08:02 Dose: 5,000 units Documented by: Hydralazine HCl (Hydralazine 10 Mg Tab) 10 mg PO TID ROYA Stop: 07/07/20 20:59 Last Admin: 06/09/20 08:02 Dose: 10 mg Documented by: Furosemide 40 mg/ Syringe 4 mls @ 4 mls/min IV QAM ROYA Stop: 07/08/20 08:59 Last Admin: 06/09/20 08:09 Dose: 4 mls/min Documented by: Nitroglycerin (Nitroglycerin Sl 0.4 Mg/Tab Tab) 0.4 mg SL UD PRN PRN Reason: Chest Pain Stop: 07/07/20 17:53 Potassium Chloride (Potassium Chloride Crtab 20 Meq Tabcr) 20 meq PO BID ROYA Stop: 07/07/20 20:59 Last Admin: 06/09/20 08:03 Dose: 20 meq Documented by: Terazosin HCl (Terazosin Hcl 1 Mg Cap) 2 mg PO HS ON LICENSE OF [facility] Stop: 07/07/20 20:59 Last Admin: 06/08/20 19:47 Dose: 2 mg Documented by:
--- NOTE | 2020-06-10 08:27 | Discharge Summary ---
Date of Service June 10, 2020 Admission HPI Per Admitting Provider Is a 75 years old male with significant past medical history of CAD status post CABG x1, aortic stenosis status post bioprosthetic AVR, hypertension, hyperlipidemia and carcinoma of the oropharynx, palate and nasopharynx status post cisplatin, XRT and dental extractions has been complaining of more weakness for the last few days to weeks and noted to have low oxygen saturation around upper 80s at home by the visiting nurse. He was seen by outpatient [facility] clinic today and was sent into the emergency room with possible diagnosis of CHF. Denies any fever, chills or any sweating. Denies any more cough than usual or any phlegm. Denies any chest pain and/or palpitation. No history of weight gain and legs are not seems to be edematous as per the patient. Apparently he has not been taking his furosemide for the last 2 to 3 days. He was noted to be in mild CHF as per the x-ray but BNP remained negative. He was admitted in medical telemetry unit for continuation of care. Admission Exam Per Admitting Provider Physical Exam: Lying in bed comfortably Constitutional: average body habitus; not ill appearing Eyes: PERRL, conjunctivae normal, anicteric sclerae ENMT: Has deformities in the upper palate Neck: trachea midline, no thyromegaly Respiratory: no respiratory distress (At rest) Auscultation: + diminished lung sounds and + crackles (Bibasilar crackles more on the right than the left side) Gastrointestinal (Abdomen): Inspection/Auscultation: normal bowel sounds; abdomen not distended Percussion/Palpation: abdomen soft; abdomen nontender Musculoskeletal: No acute arthritis in any joint Neurologic: Alert, awake and oriented x3. No focal sensory and motor deficit appreciated Psychiatric: A+Ox3, euthymic affect Lymphatic: no cervical or axillary lymphadenopathy Principal Diagnosis Acute CHF, likely secondary to valvular heart disease, history of bioprosthetic aortic valve replacement, CAD, history of nasopharyngeal cancer Discharge Exam Constitutional average body habitus; not ill appearing Eyes PERRL, conjunctivae normal, anicteric sclerae Neck trachea midline, no thyromegaly Respiratory no respiratory distress (At rest) Auscultation: + diminished lung sounds and + crackles (Bibasilar crackles which he seems to be decreasing) Cardiovascular Rate/Rhythm: regular rate and regular rhythm Heart Sounds: + murmur (2/6 ejection murmur over precordium and aortic area) Extremities: + edema (Trace edema bilaterally) Gastrointestinal (Abdomen) Inspection/Auscultation: normal bowel sounds; abdomen not distended Percussion/Palpation: abdomen soft; abdomen nontender Psychiatric A+Ox3, euthymic affect Lymphatic no cervical or axillary lymphadenopathy Discharge Data Allergies Allergy/AdvReac Type Severity Reaction Status Date / Time No Known Allergies Allergy Verified 06/07/20 14:20 Consultations 06/07/20 15:21 ED Decision to Admit Stat Hospital Course (1) CHF (congestive heart failure): History of aortic valvular disease status post AVR Last echo did show EF of 50 to 55% CHF secondary to valvular heart disease mainly aortic valve Chest x-ray is compatible with CHF Has not been taking Lasix for the last 2 to 3 days Will start Lasix 40 mg daily and monitor PRP Clinically much better today Has had enough diuresis Denies any cardiac symptoms and/or shortness of breath Will get to do steps O2 saturation and PT and OT evaluation Likely discharge this afternoon Doubt any pneumonia No signs and/or symptoms of pneumonia Received 1 dose of Zosyn in the emergency room No fever and/or chills and no white count or increasing differential count (2) Hypertension: Blood pressure remains stable Blood pressure remains on the lower side and hydralazine is on hold today Blood pressure remains in the lower side of normal (3) Hyperlipidemia: Continue statin (4) History of nasopharyngeal cancer: No acute issue Has ongoing cough with minimal phlegm (5) History of heart valve replacement: As above (6) History of coronary artery bypass graft: No acute cardiac symptoms DVT prophylaxis Subcu heparin CODE STATUS Full Likely discharge this afternoon Total Time Total Time Spent Total Time Spent (In Minutes): 35 minutes Total Time Includes: Examination of the Patient, Discharge Planning, Medication Reconciliation and Communication With Other Providers Discharge Plan Discharge Items Patient Disposition: Home - Self-Care Reason For Visit: HYPOXIA CHF Discharge Diagnosis: Acute CHF, likely secondary to valvular heart disease, history of bioprosthetic aortic valve replacement, CAD, history of nasopharyngeal cancer Condition on Discharge: Fair Activity: Resume your previous activity Non-emergency contact: Primary Care Provider Call non-emergency contact if: you have any medication questions and your symptoms worsen Follow-up/Referrals: Prudencio Burns MD [Primary Care Provider] - (Date & Time 06/12/2020 11:00 AM Provider Prudencio Burns III, MD Department [facility] ) Diet: Heart Healthy Addtl Attending Provider Instructions: Please take precaution to avoid falls There is no change in your medications You need oxygen 2 L via nasal cannula with activity Please keep appointments with your providers Pending Studies at Discharge: No Stand-Alone Forms: My [facility] [place] [employer], Smoking Cessation Medications and DC Order Prescriptions: Continued atorvastatin 40 mg Tablet 40 mg PO QAM RF: 0 hydralazine 10 mg Tablet 10 mg PO TID RF: 0 amlodipine 5 mg Tablet 5 mg PO BID RF: 0 aspirin 81 mg Tablet,Delayed Release (Dr/Ec) 81 mg PO QAM RF: 0 terazosin 2 mg Capsule 2 mg PO HS RF: 0 nitroglycerin 0.4 mg Tablet, Sublingual 0.4 mg sublingual UD PRN (Reason: Chest Pain) RF: 0 potassium chloride 20 mEq tablet extended release 20 meq PO BID Qty: 30 RF: 0 albuterol sulfate [ProAir HFA] 90 mcg/actuation HFA aerosol inhaler 2 inh inhalation Q6H PRN (Reason: shortness of breath or wheezing) Qty: 8.5 RF: 0 furosemide [Lasix] 40 mg tablet 40 mg PO QAM Qty: 30 RF: 0 Discharge Orders: Discharge Order (Routine); Ordered 06/09/20 Ordered By: Awilda Cartagena Admission Data Admit Date/Time: 06/07/20 15:36 Attending Provider: Awilda Cartagena Admit Provider: Awilda Cartagena Primary Care Provider: Prudencio Burns Other Providers: Awilda Cartagena Other Interventions: Discharge Summary Assessment (RN) Last Done: 06/09/20 15:48
== END 2020-06-09 16:42 | disposition home or self-care (01) | DRG 306 ==
LOC: ED 11:54 → 2W 15:36
DX: I50.9 Heart failure, unspecified; N18.30 Chronic kidney disease, stage 3 unspecified; Z85.29 Personal history of malignant neoplasm of other respiratory and intrathoracic organs; Z95.1 Presence of aortocoronary bypass graft; Z92.3 Personal history of irradiation; I35.8 Other nonrheumatic aortic valve disorders; Z95.2 Presence of prosthetic heart valve; J96.01 Acute respiratory failure with hypoxia; I25.10 Atherosclerotic heart disease of native coronary artery without angina pectoris; I25.2 Old myocardial infarction; I13.0 Hypertensive heart and chronic kidney disease with heart failure and stage 1 through stage 4 chronic kidney disease, or unspecified chronic kidney disease; E78.5 Hyperlipidemia, unspecified; Z87.891 Personal history of nicotine dependence

== ENCOUNTER 2020-07-02 15:56 | Inpatient (IN) ==
[2020-07-02] MEDS ORDERED: ALBUT/IPRATROP 3MG/0.5MG NEB 3 ML VIAL INH STA (16:29)
--- NOTE | 2020-07-02 16:37 | Emergency Department Note ---
Impression & Plan Breathlessness, Pneumonia, Acute hyponatremia, CHF (congestive heart failure) ED Provider Note Provider: Gary Domingo MD DATE OF SERVICE: 07/02/2020 CHIEF COMPLAINT: Shortness of breath HISTORY OF PRESENT ILLNESS: Patient is a 75-year-old gentleman history of CAD with bypass and heart valve replacement as well as CHF, hypertension, and nasopharyngeal cancer status post treatment presenting here today with his son from home reporting worsening shortness of breath over the past week or so. Patient recently hospitalized beginning a month and had another hospitalization prior to this. Patient states feels more short of breath with movement and occasionally has a bit of pain with deep breath. Denies any syncope, lightheadedness, or dizziness. Patient denies chest pain at this time. He denies any nausea or vomiting or abdominal discomfort. States has not been swelling too much in his legs. States he has been using his home oxygen at 3 L at home as well as the Lasix he was prescribed. Patient reports a neighbor came over and listened to him and thought he should come in today. Son states that he sounds like he is gargling now. Patient states he has had 2 doses of the C ovid vaccine. REVIEW OF SYSTEMS: A total of 10 review of systems was obtained and negative except as stated above in the HPI. PAST MEDICAL HISTORY: As noted above MEDICATIONS: Reviewed home medication list SOCIAL HISTORY: former smoker, lives at home by himself PHYSICAL EXAM: GENERAL: alert and oriented in no acute distress on stretcher on nasal cannula oxygen with audible gurgling with breathing. Head: normocephalic and atraumatic EYES: No injection, discharge or icterus. NECK: Trachea midline. Supple. ENT: Mucous membranes pink and moist. LUNGS: Airway patent. No retractions. Breath sounds bilateral basilar rhonchi with a few scattered wheezes. HEART: Regular rate and rhythm. No chest wall tenderness ABDOMEN: Soft and non-tender, without guarding or rebound. SKIN: Acyanotic, warm, dry, without rashes EXTREMITIES: Without tenderness or deformity with may be trace bilateral pedal edema. NEUROLOGICAL: No focal deficits. No aphasia. No facial droop or slurred speech. EK bpm normal sinus rhythm. No PVC or PAC. No acute ST segment elevation or depression. QTC 423. CONTINUOUS CARDIAC MONITORING: was ordered and showed a heart rate of 70s to 80s bpm in normal sinus rhythm Patient's laboratory studies and imaging reviewed. Differential includes Reactive airway disease, pneumonia, pneumothorax, COPD, CHF, infections, cardiac ischemia, pulmonary embolism, musculoskeletal, gastrointestinal, as well as other pathologies. IMPRESSION/MEDICAL DECISION MAKING: Patient resents complaining of worsening shortness of breath and audible bubbling with breathing. Denies syncope or dizziness. Denies falls. Has been on nasal cannula oxygen but not hypoxic here. Worse dyspnea with exertion. EKG and troponin was sent. X-ray and basic labs were sent. Covid test was sent although he had Covid vaccine and lower suspicion for this. Legs do not appear significantly swollen the question of some possible left-sided failure given his respiratory exam. Patient has been on Lasix at home. Lower suspicion at this time for PE given the presentation. Patient had a little bit of improvement after DuoNeb here. X-ray per radiology questions a possible pneumonia. Will no significant fevers reported or leukocytosis on labs, given the CXR finding and recent multiple hospitalizations will give a dose of Rocephin for antibiotic coverage. Blood work otherwise without significant abnormality on some mild hyponatremia. Covid is negative. Still some shortness of breath and audible respiratory gurgling. Given this report and his reported decline, both he and his son agree that further observation here at the hospital is warranted. The hospitalist was contacted. Given a dose of some Lasix for further diuresis in case there is some component of CHF although this does not appear horribly overt at this time. DIAGNOSIS: Shortness of breath, pneumonia, hyponatremia, CHF DISPOSITION: Hospitalist will evaluate Patient was agreeable with this plan. Past Med/Surg History Medical History (Updated 07/03/20 @ 00:50 by Gary Domingo M.D.) Cardiac murmur CHILD FROM RHEUMATIC FEVER CKD (chronic kidney disease) stage 3, GFR 30-59 ml/min Former tobacco use Hearing deficit BILAT History of [place] (myocardial infarction) 2016/ [facility] History of nasopharyngeal cancer s/p radiation, chemo- NO PORT ANYMORE CLEARED NOV 2013 History of rheumatic fever Hyperlipidemia Hypertension Left bundle branch block (LBBB) Palate abnormality prosthetic palate Surgical History (Updated 06/07/20 @ 15:54 by Awilda Cartagena MD) History of cardiac cath 2017 - [place] --> CABG - [facility]- follows w/ Dr. Eliel GRAHAM GRAYTY/ NO STENTS History of cataract surgery History of colonoscopy with polypectomy 09/25/2018. Propofol given, no issues. History of coronary artery bypass graft One vessel - 2016 - [facility] History of heart valve replacement Bioprosthetic aortic valve - 2016 History of shoulder surgery RIGHT History of tonsillectomy History of tooth extraction History of vascular access device NO LONGER HAS PORT Status post insertion of percutaneous endoscopic gastrostomy (PEG) tube PLACED DUE TO PALATE SURGERY- THEN REMOVED 2014 Family History Father Cancer Liver Cancer Social History Smoking Status: Never smoker Tobacco Type: Cigarettes Second Hand Exposure: No; Hx Alcohol Use: No Hx Substance Use: No Preferred Language: Luxembourgish Communication Ability: Effective Genetic Counselor Required: No Beliefs That Will Affect Care: None marital status: / Current Living Situation: Alone Other Information That Helps Us Care for You: No Feels Safe at Home: Yes Safety Concerns: Feels Safe At This Time Assistive Devices: Cane, Denture - Upper, Denture - Lower, Hearing Aid - Bilateral and Oxygen - Continuous Assistive Devices Comment: "walking stick" Allergies Allergies Allergy/AdvReac Type Severity Reaction Status Date / Time No Known Allergies Allergy Verified 07/02/20 18:36 Home Meds Home Medications Medication Instructions Recorded Confirmed amlodipine 5 mg PO BID 09/18/18 07/02/20 aspirin 81 mg PO QAM 09/18/18 07/02/20 atorvastatin 40 mg PO QAM 09/18/18 07/02/20 hydralazine 10 mg PO TID 09/18/18 07/02/20 nitroglycerin 0.4 mg SUBLINGUAL UD PRN 09/18/18 07/02/20 terazosin 2 mg PO HS 09/18/18 07/02/20 Previous Rx's Medication Instructions Recorded albuterol sulfate [ProAir HFA] 2 inh INHALATION Q6H PRN #8.5 g 05/06/20 furosemide [Lasix] 40 mg PO QAM #30 tab 05/06/20 potassium chloride 20 meq PO BID #30 tab 05/06/20 Results & Data (ED) Vital Signs Vital Signs - 24 hr 07/02/20 16:14 07/02/20 16:48 07/02/20 17:03 Temperature 36.7 C Temperature Source Temporal Artery Scan Pulse Rate 82 88 Pulse Rate [Finger] 75 Pulse Rate from SpO2 Sensor Respiratory Rate 22 Respiratory Effort / Characteristics Non-Labored Spontaneous Spontaneous Short of Breath SOB on Exertion Respiratory Depth Normal Blood Pressure 108/63 Blood Pressure Mean 78 Pulse Oximetry 94 97 97 Oxygen Delivery Method Room Air Nasal Cannula Nasal Cannula Oxygen Flow Rate 3 3 Sepsis Recent Fever Within 48 Hours No Sepsis New/Unexplained Change in Mental Status N/A Sepsis Action Taken by Nursing No Action Required Oxygen Flow Rate - Titration 07/02/20 17:30 07/02/20 17:35 07/02/20 17:38 Temperature Temperature Source Pulse Rate 76 80 Pulse Rate [Finger] Pulse Rate from SpO2 Sensor 71 80 Respiratory Rate 20 20 Respiratory Effort / Characteristics Spontaneous Respiratory Depth Blood Pressure 119/60 Blood Pressure Mean 79 Pulse Oximetry 98 97 Oxygen Delivery Method Nasal Cannula Oxygen Flow Rate 3 Sepsis Recent Fever Within 48 Hours Sepsis New/Unexplained Change in Mental Status Sepsis Action Taken by Nursing Oxygen Flow Rate - Titration 07/02/20 17:54 07/02/20 18:00 07/02/20 18:01 Temperature Temperature Source Pulse Rate 74 81 Pulse Rate [Finger] Pulse Rate from SpO2 Sensor 78 73 Respiratory Rate 21 16 Respiratory Effort / Characteristics Respiratory Depth Blood Pressure 100/62 Blood Pressure Mean 74 Pulse Oximetry 98 98 Oxygen Delivery Method Nasal Cannula Oxygen Flow Rate 3 Sepsis Recent Fever Within 48 Hours Sepsis New/Unexplained Change in Mental Status Sepsis Action Taken by Nursing Oxygen Flow Rate - Titration 96 07/02/20 18:30 07/02/20 18:31 07/02/20 18:32 Temperature Temperature Source Pulse Rate 81 83 81 Pulse Rate [Finger] Pulse Rate from SpO2 Sensor 81 83 81 Respiratory Rate 20 18 18 Respiratory Effort / Characteristics Respiratory Depth Blood Pressure 91/53 L 127/65 Blood Pressure Mean 65 85 Pulse Oximetry 97 97 97 Oxygen Delivery Method Oxygen Flow Rate Sepsis Recent Fever Within 48 Hours Sepsis New/Unexplained Change in Mental Status Sepsis Action Taken by Nursing Oxygen Flow Rate - Titration 07/02/20 19:00 07/02/20 19:01 07/02/20 19:30 Temperature Temperature Source Pulse Rate 83 86 81 Pulse Rate [Finger] Pulse Rate from SpO2 Sensor 83 86 78 Respiratory Rate 18 17 21 Respiratory Effort / Characteristics Respiratory Depth Blood Pressure 134/68 121/65 Blood Pressure Mean 90 83 Pulse Oximetry 97 97 97 Oxygen Delivery Method Oxygen Flow Rate Sepsis Recent Fever Within 48 Hours Sepsis New/Unexplained Change in Mental Status Sepsis Action Taken by Nursing Oxygen Flow Rate - Titration 07/02/20 19:31 07/02/20 20:00 07/02/20 20:01 Temperature Temperature Source Pulse Rate 77 82 Pulse Rate [Finger] Pulse Rate from SpO2 Sensor 77 Respiratory Rate 14 16 19 Respiratory Effort / Characteristics Respiratory Depth Blood Pressure 123/55 L Blood Pressure Mean 77 Pulse Oximetry 96 Oxygen Delivery Method Oxygen Flow Rate Sepsis Recent Fever Within 48 Hours Sepsis New/Unexplained Change in Mental Status Sepsis Action Taken by Nursing Oxygen Flow Rate - Titration Laboratory Data Result diagrams: 07/02/20 16:45 07/02/20 16:45 Lab Results 07/02/20 07/02/20 07/02/20 Range/Units 16:35 16:35 16:45 WBC 7.34 (4.8-10.8) K/uL RBC 3.85 L (4.7-6.1) M/uL Hgb 9.2 L (14.0-18.0) g/dL Hct 29.7 L (42-52) % MCV 77.1 L (80-100) fL MCH 23.9 L (25-34) pg MCHC 31.0 L (32-36) g/dL RDW Std Deviation 50.5 H (36.4-46.3) fL RDW Coeff of Navid 17.6 H (11.5-14.5) % Plt Count 328 (130-400) K/uL MPV 8.1 (7.4-10.4) fL Immature Gran % (Auto) 0.3 % Neut % (Auto) 82.3 % Lymph % (Auto) 5.4 % [place] % (Auto) 10.1 % Eos % (Auto) 1.8 % Baso % (Auto) 0.1 % Neut # (Auto) 6.04 (1.4-6.5) K/uL Lymph # (Auto) 0.40 L (1.2-3.4) K/uL [place] # (Auto) 0.74 H (0.11-0.59) K/uL Eos # (Auto) 0.13 (0-0.5) K/uL Baso # (Auto) 0.01 (0-0.2) K/uL Immature Gran # (Auto) 0.02 (0.00-0.02) K/uL Sodium (136-145) mmol/L Potassium (3.5-5.1) mmol/L Chloride (98-107) mmol/L Carbon Dioxide (21-32) mmol/L Anion Gap (3-11) BUN (7-18) mg/dl Creatinine (0.6-1.4) mg/dl Est Cr Clr Drug Dosing ml/min Est GFR ( Amer) ml/min Est GFR (Non-Af Amer) ml/min BUN/Creatinine Ratio (10-20) Glucose (70-99) mg/dl Calcium (8.5-10.1) mg/dl Magnesium (1.8-2.4) mg/dl Total Bilirubin (0.2-1) mg/dl AST (15-37) U/L ALT (12-78) U/L Alkaline Phosphatase (45-117) U/L Troponin I (0-0.045) ng/ml Total Protein (6.4-8.2) gm/dl Albumin (3.4-5.0) gm/dl Globulin (2.5-4.0) gm/dl Albumin/Globulin Ratio (0.9-2) Urine Color Urine Appearance (Clear) Urine pH (4.5-7.5) Ur Specific [place] (1.000-1.030) Urine Protein (Negative) Urine Glucose (UA) (Negative) Urine Ketones (Negative) Urine Blood (Negative) Urine Nitrite (Negative) Urine Bilirubin (Negative) Urine Urobilinogen (Negative) Ur Leukocyte Esterase (Negative) COVID-19 Eval Order Covid19 at [facility] SARS-CoV-2 (PCR) NEGATIVE (Negative) 07/02/20 07/02/20 Range/Units 16:45 17:50 WBC (4.8-10.8) K/uL RBC (4.7-6.1) M/uL Hgb (14.0-18.0) g/dL Hct (42-52) % MCV (80-100) fL MCH (25-34) pg MCHC (32-36) g/dL RDW Std Deviation (36.4-46.3) fL RDW Coeff of Navid (11.5-14.5) % Plt Count (130-400) K/uL MPV (7.4-10.4) fL Immature Gran % (Auto) % Neut % (Auto) % Lymph % (Auto) % [place] % (Auto) % Eos % (Auto) % Baso % (Auto) % Neut # (Auto) (1.4-6.5) K/uL Lymph # (Auto) (1.2-3.4) K/uL [place] # (Auto) (0.11-0.59) K/uL Eos # (Auto) (0-0.5) K/uL Baso # (Auto) (0-0.2) K/uL Immature Gran # (Auto) (0.00-0.02) K/uL Sodium 131 L (136-145) mmol/L Potassium 3.5 (3.5-5.1) mmol/L Chloride 92 L (98-107) mmol/L Carbon Dioxide 36 H (21-32) mmol/L Anion Gap 3.0 (3-11) BUN 18 (7-18) mg/dl Creatinine 1.01 (0.6-1.4) mg/dl Est Cr Clr Drug Dosing 53.9 ml/min Est GFR ( Amer) 83.4 ml/min Est GFR (Non-Af Amer) 71.9 ml/min BUN/Creatinine Ratio 18.3 (10-20) Glucose 79 (70-99) mg/dl Calcium 8.5 (8.5-10.1) mg/dl Magnesium 2.3 (1.8-2.4) mg/dl Total Bilirubin 0.6 (0.2-1) mg/dl AST 21 (15-37) U/L ALT 16 (12-78) U/L Alkaline Phosphatase 79 (45-117) U/L Troponin I < 0.015 (0-0.045) ng/ml Total Protein 7.2 (6.4-8.2) gm/dl Albumin 2.7 L (3.4-5.0) gm/dl Globulin 4.5 H (2.5-4.0) gm/dl Albumin/Globulin Ratio 0.6 L (0.9-2) Urine Color Yellow Urine Appearance Clear (Clear) Urine pH 5.0 (4.5-7.5) Ur Specific Palmer 1.011 (1.000-1.030) Urine Protein Negative (Negative) Urine Glucose (UA) Negative (Negative) Urine Ketones Negative (Negative) Urine Blood Negative (Negative) Urine Nitrite Negative (Negative) Urine Bilirubin Negative (Negative) Urine Urobilinogen Negative (Negative) Ur Leukocyte Esterase Negative (Negative) COVID-19 Eval Order SARS-CoV-2 (PCR) (Negative) Administered Medications Amlodipine Besylate (Amlodipine Besylate 5 Mg Tab) 5 mg PO BID ROYA Stop: 08/01/20 21:53 Last Admin: 07/02/20 22:49 Dose: 5 mg Documented by: [id number] Enoxaparin Sodium (Enoxaparin Inj 40 Mg/0.4 Ml Syr) 40 mg SQ Q24H ROYA Stop: 08/01/20 21:59 Last Admin: 07/02/20 22:48 Dose: 40 mg Documented by: [id number] Hydralazine HCl (Hydralazine 10 Mg Tab) 10 mg PO TID ROYA Stop: 08/01/20 21:53 Last Admin: 07/02/20 22:49 Dose: 10 mg Documented by: [id number] Doxycycline Hyclate 100 mg/ (Dextrose) 110 mls @ 50 mls/hr IV Q12H ROYA Stop: 07/09/20 22:59 Last Admin: 07/02/20 23:09 Dose: 50 mls/hr Documented by: [id number] Potassium Chloride (Potassium Chloride Crtab 20 Meq Tabcr) 20 meq PO BID ROYA Stop: 08/01/20 21:53 Last Admin: 07/02/20 22:49 Dose: 20 meq Documented by: [id number] Terazosin HCl (Terazosin Hcl 1 Mg Cap) 2 mg PO HS ROYA Stop: 08/01/20 21:53 Last Admin: 07/02/20 22:49 Dose: 2 mg Documented by: [id number] Discontinued Medications Albuterol (Albut/Ipratrop 3mg/0.5mg Neb 3 Ml Vial) 3 ml INH NOW STA Stop: 07/02/20 16:30 Last Admin: 07/02/20 16:48 Dose: 3 ml Documented by: [id number] Furosemide (Furosemide 40 Mg/4 Ml Vial) 40 mg IV NOW STA Stop: 07/02/20 18:12 Last Admin: 07/02/20 18:32 Dose: 40 mg Documented by: [id number] Ceftriaxone Sodium (Rocephin) 1,000 mg in 50 mls @ 100 mls/hr IV NOW STA Stop: 07/02/20 18:40 Last Infusion: 07/02/20 19:05 Dose: 0 mls/hr Documented by: [id number] Admin: 07/02/20 18:31 Dose: 100 mls/hr Documented by: [id number] Methylprednisolone 40 mg/ (Syringe) 0.64 mls @ 1.5 mls/min IV 2215 ROYA Stop: 07/02/20 23:59 Last Admin: 07/02/20 22:49 Dose: 1.5 mls/min Documented by: [id number] Piperacillin Sod/Tazobactam (Sod 4.5 gm/ Dextrose) 120 mls @ 200 mls/hr IV 2230 ONE; Protocol Stop: 07/02/20 23:05 Last Infusion: 07/02/20 23:33 Dose: 0 mls/hr Documented by: [id number] Admin: 07/02/20 22:49 Dose: 200 mls/hr Documented by: [id number] Sodium Chloride (Nss) 500 mls @ 500 mls/hr IV .Q1H ROYA Stop: 07/03/20 00:14 Last Admin: 07/02/20 23:54 Dose: 250 mls/hr Documented by: [id number] Imaging Data Radiologist's Impression: Chest X-Ray 07/02/20 16:30 XR chest 1V portable HISTORY: Dyspnea COMPARISON: Chest 06/07/2020. FINDINGS: No pneumothorax. Trace bilateral pleural effusions. The heart is normal in size. There are poststernotomy changes. Diffuse interstitial thickening persists. The small focal left upper lobe peripheral airspace opacity which is new from the prior study. IMPRESSION: 1. No change in diffuse interstitial thickening. This could be chronic or represent mild congestive change. 2. There is a new small focal peripheral left upper lobe airspace opacity. This favors a pneumonia. One-month chest x-ray follow-up recommended to ensure resolution. 3. Trace bilateral pleural fusions. These have improved. ACT 112: Negative or not required by law. Electronically signed by: Ritesh Quevedo M.D. 07/02/2020 5:47 PM Discharge Plan Visit Data Chief Complaint: Shortness of Breath/Dyspnea Stated Complaint: SOB,WET COUGH,DX PNEUMONIA ED Provider: Gary Domingo Discharge Problem: Breathlessness, Pneumonia, Acute hyponatremia, CHF (congestive heart failure) Patient Disposition: Admitted As Inpatient Discharge Instructions Interventions: ED Discharge Assessment Last Done: 07/02/20 21:34 Discharge Problem: Pneumonia Qualifiers: Pneumonia type: due to unspecified organism Laterality: left Lung location: upper lobe of lung Qualified Code(s): J18.9 - Pneumonia, unspecified organism CHF (congestive heart failure) Qualifiers: Heart failure type: unspecified Heart failure chronicity: chronic Qualified Code(s): I50.9 - Heart failure, unspecified
[2020-07-02 17:00] LABS: Basophils # (auto) 0.01 K/uL (0-0.2); Basophils % (auto) 0.1 %; Eosinophils # (auto) 0.13 K/uL (0-0.5); Eosinophils % (auto) 1.8 %; Hematocrit (blood only) 29.7 % (42-52); Hemoglobin 9.2 g/dL (14.0-18.0); Immature Granulocytes # (auto) 0.02 K/uL (0.00-0.02); Immature Granulocytes % (auto) 0.3 %; Lymphocytes % (auto) 5.4 %; Mean Corpuscular Hemoglobin 23.9 pg (25-34); Mean Corpuscular Volume 77.1 fL (80-100); Mean Platelet Volume 8.1 fL (7.4-10.4); Monocytes # (auto) 0.74 K/uL (0.11-0.59); Monocytes % (auto) 10.1 %; Neutrophils # (auto) 6.04 K/uL (1.4-6.5); Neutrophils % (auto) 82.3 %; Platelet Count 328 K/uL (130-400); RDW Coefficient of Variation 17.6 % (11.5-14.5); RDW Standard Deviation 50.5 fL (36.4-46.3); Red Blood Count 3.85 M/uL (4.7-6.1); White Blood Count 7.34 K/uL (4.8-10.8)
[2020-07-02 17:24] LABS: Alanine Aminotransferase 16 U/L (12-78); Albumin Globulin Ratio 0.6 (0.9-2); Albumin Level 2.7 gm/dl (3.4-5.0); Alkaline Phosphatase 79 U/L (45-117); Aspartate Aminotransferase 21 U/L (15-37); BUN Creatinine Ratio 18.3 (10-20); Bilirubin,Total 0.6 mg/dl (0.2-1); Blood Urea Nitrogen 18 mg/dl (7-18); Calcium 8.5 mg/dl (8.5-10.1); Carbon Dioxide 36 mmol/L (21-32); Chloride 92 mmol/L (98-107); Creatinine Clr Calc Pharmacy 53.9 ml/min; Est GFR (African American) 83.4 ml/min; Est GFR (Non-African American) 71.9 ml/min; Globulin 4.5 gm/dl (2.5-4.0); Glucose 79 mg/dl (70-99); Magnesium 2.3 mg/dl (1.8-2.4); Potassium 3.5 mmol/L (3.5-5.1); Sodium 131 mmol/L (136-145); Total Protein 7.2 gm/dl (6.4-8.2)
[2020-07-02 17:26] LABS: Troponin I < 0.015 ng/ml (0-0.045)
--- NOTE | 2020-07-02 17:49 | XRay Report ---
XR chest 1V portable HISTORY: Dyspnea COMPARISON: Chest 06/07/2020. FINDINGS: No pneumothorax. Trace bilateral pleural effusions. The heart is normal in size. There are poststernotomy changes. Diffuse interstitial thickening persists. The small focal left upper lobe per ipheral airspace opacity which is new from the prior study. IMPRESSION: 1. No change in diffuse interstitial thickening. This could be chronic or represent mild congestive c hange. 2. There is a new small focal peripheral left upper lobe airspace opacity. This favors a pneumonia. O ne-month chest x-ray follow-up recommended to ensure resolution. 3. Trace bilateral pleural fusions. These have improved. ACT 112: Negative or not required by law. Electronically signed by: Ritesh Quevedo M.D. 07/02/2020 5:47 PM
[2020-07-02 18:06] LABS: Appearance Urine Clear (Clear); Bilirubin Urine Negative (Negative); Blood Urine Negative (Negative); Color Urine Yellow; Glucose Urine UA Negative (Negative); Ketones Urine Negative (Negative); Leukocyte Esterase Urine Negative (Negative); Nitrite Urine Negative (Negative); Protein Urine Negative (Negative); Specific Gravity Urine 1.011 (1.000-1.030); Urobilinogen Urine Negative (Negative)
[2020-07-02] MEDS ORDERED: FUROSEMIDE 40 MG/4 ML VIAL IV STA (18:11)
[2020-07-02] MEDS ORDERED: cefTRIAXone SODIUM 1,000 MG/50 ML BAG IV STA (18:11)
[2020-07-02] MEDS ORDERED: ACETAMINOPHEN 325 MG TAB PO PRN (21:54)
[2020-07-02] MEDS ORDERED: POLYETHYLENE (MIRALAX) 17 GM PACK PO PRN (21:54)
[2020-07-02] MEDS ORDERED: PIPERACILL/TAZOBAC CONSULT ACTIVE PRN (21:54)
[2020-07-02] MEDS ORDERED: LEVALBUTEROL 1.25MG/0.5ML NEB INH PRN (21:54)
[2020-07-02] MEDS ORDERED: NITROGLYCERIN SL 0.4 MG/TAB TAB SL PRN (21:54)
[2020-07-02] MEDS ORDERED: IPRATROPIUM BROMIDE NEB SOLN 0.02% 2.5 ML VIAL INH PRN (21:54)
[2020-07-02] MEDS ORDERED: XOPENEX/ATROVENT 1.25mg/0.5MG NEB COMBO NEB PRN (21:54)
[2020-07-02] MEDS ORDERED: ALBUTEROL HFA 8 GM INHALER INH PRN (22:14)
[2020-07-02] MEDS ORDERED: methylPREDNISolone 40 MG in SYRINGE 0 ML IV SCH (22:15)
[2020-07-02] MEDS ORDERED: PIPERACILLIN/TAZOBACTAM 4.5 GM in DEXTROSE 5% 100 ML IV ONE (22:30)
--- NOTE | 2020-07-02 22:44 | History and Physical Report ---
DATE OF ADMISSION: 07/02/2020 CHIEF COMPLAINT: Shortness of breath. HISTORY OF PRESENT ILLNESS: A 75-year-old male with past medical history significant for CAD status post CABG x1; aortic stenosis, status post bioprosthetic aortic valve replacement; intermittent left bundle branch block; hypertension; hyperlipidemia; and history of carcinoma of the oropharynx, palate, and nasopharynx, status post cisplatin and radiation treatment and dental extraction with resultant palate defect, but seems to be clear of disease since 2013, supposed to follow up with hematology/oncology, comes with 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 The patient was here in April with pneumonia and was seen in the first week of June with CHF. The patient says since last few days he is having cough, could not bring up phlegm because of his history of palatal defect from his dental extraction from his cancer. He says he is on soft diet. 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 He lives alone, ambulates without any support and he gets help once a week. He says he could not bring any phlegm, but having a lot of cough and 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 He felt like he had fluid in the lungs, which prompted him to come to the ER. Denies any fever, chills. Denies any headache, no blurred visions, no earache, no runny nose, no sore throat. His appetite is okay. He has no chest pain, no nausea, no abdominal pain. He has normal bowel and bladder movements. No swelling in the legs. Currently resting comfortably and hemodynamically stable. The patient says he is done with his COVID shots. ALLERGIES: No known drug allergies. PAST MEDICAL HISTORY: As mentioned above. PAST SURGICAL HISTORY: Alveoloplasty, colonoscopy, CABG, EGD, tonsillectomy, cataract surgery, bioprosthetic aortic valve replacement, surgical extraction of erupted tooth. MEDICATIONS: The patient currently is on albuterol 2 puffs inhalation q. 6 hours p.r.n., amlodipine 5 mg p.o. b.i.d., aspirin 81 mg p.o. a.m., atorvastatin 40 mg p.o. a.m., Lasix 40 mg p.o. a.m., hydralazine 10 mg p.o. b.i.d., nitroglycerin 0.4 mg sublingual p.r.n., potassium chloride 20 mEq p.o. b.i.d., terazosin 2 mg p.o. at bedtime. FAMILY HISTORY: Significant for mother has arthritis, father has liver cancer. SOCIAL HISTORY: , currently lives alone. Quit smoking in 2012, smoked 1 pack a day for 50 years. No alcohol use, no drug use. REVIEW OF SYSTEMS: As per HPI. Rest of the review of systems negative. PHYSICAL EXAMINATION: GENERAL: The patient is of moderate build, not in acute distress. VITAL SIGNS: Temperature 36.7, pulse 81, respiratory rate 16, blood pressure 100/62, oxygen 98% on 3 liters. HEENT: Pupils equal, round, and reactive to light. Oral mucosa moist. NECK: No JVD, no neck masses. CARDIOVASCULAR: S1, S2 heard, regular rate and rhythm. No murmur, no gallop. RESPIRATORY SYSTEM: Normal AP diameter. No accessory muscle use. No wheezing, no crackles. Coarse rhonchi heard in the throat region. ABDOMEN: Soft, bowel sounds present, nontender. No distention. CENTRAL NERVOUS SYSTEM: Cranial nerves II-XII grossly intact, nonfocal. EXTREMITIES: Trace edema, no erythema seen. LABORATORY DATA: WBC 7.3, hemoglobin 9.2, hematocrit 29.7, platelets 328. Sodium 131, potassium 3.5, chloride 92, bicarbonate 36, BUN 18, creatinine 1, serum glucose 79, calcium 8.5, magnesium 2.3, total bilirubin 0.6, AST 21, ALT 16, alkaline phosphatase 79. Troponin less than 0.015. Urinalysis negative. SARS-CoV-2 PCR negative. IMAGING DATA: Chest x-ray, nonfocal peripheral left upper lobe airspace opacity, this favors pneumonia. Trace bilateral pleural effusions, these are improved. EKG: Normal sinus rhythm at a rate of 77, no acute ST changes seen, no significant change was found. ASSESSMENT AND PLAN: This is a 75-year-old male who presents with ongoing shortness of breath and cough. Chest x-ray shows possible pneumonia and possible mild congestive heart failure. 1. Shortness of breath: Possibly from right upper lobe pneumonia, has possibly acute diastolic congestive heart failure and valvular heart disease. Received a dose of Lasix in the ER and also had Rocephin. The patient has also issues with his palate, so will get a speech evaluation and empirically start him with Zosyn and doxycycline and follow the response. Monitor in the tele floor. 2. [id number] diastolic congestive heart failure and valvular heart disease, status post aortic valve replacement, bioprosthetic valve. On Lasix 40 mg daily at home, the patient is taking this regularly. Received a dose of 40 of Lasix in the ER. We will follow the response. Will continue the home Lasix from a.m. and consult cardiology for further recommendations. Two step prior to discharge. 3. History of coronary artery disease status post coronary artery bypass graft. Continue his aspirin and statin. 4. Hypertension: On amlodipine, hydralazine, terazosin. Will monitor his blood pressure. 5. Hyperlipidemia: On statin. 6. Status post AVR. 7. History of nasopharyngeal cancer, status post chemo and radiation. Follow up with hematology/oncology, seems to be stable. 8. Deep venous thrombosis prophylaxis: We will place him on Lovenox. DISPOSITION: Closely monitor in tele floor. Level 1 full code as per my discussion with the patient and son is the power of employment attorney. PT and OT prior to discharge. Social service to help with discharge planning. THEA
[2020-07-02] MEDS: ENOXAPARIN INJ 40 MG/0.4 ML SYR SQ SCH (22:48)
[2020-07-02] MEDS: hydrALAZINE 10 MG TAB PO SCH (22:49)
[2020-07-02] MEDS: POTASSIUM CHLORIDE CRTAB 20 MEQ TABCR PO SCH (22:49)
[2020-07-02] MEDS: amLODIPine BESYLATE 5 MG TAB PO SCH (22:49)
[2020-07-02] MEDS: TERAZOSIN HCL 1 MG CAP PO SCH (22:49)
[2020-07-02] MEDS: DOXYCYCLINE HYCLATE 100 MG in DEXTROSE 5% 100 ML IV SCH (23:09)
[2020-07-02] MEDS ORDERED: SODIUM CHLORIDE 0.9% 500 ML IV SCH (23:45)
[2020-07-03] MEDS: PIPERACILLIN/TAZOBACTAM 3.375 GM in DEXTROSE 5% 100 ML IV SCH ×3 (03:58→20:11)
[2020-07-03 06:24] LABS: Hematocrit (blood only) 28.8 % (42-52); Hemoglobin 9.1 g/dL (14.0-18.0); Immature Granulocytes # (auto) 0.02 K/uL (0.00-0.02); Immature Granulocytes % (auto) 0.2 %; Lymphocytes % (auto) 3.7 %; Mean Corpuscular Hemoglobin 23.7 pg (25-34); Mean Corpuscular Hgb Conc 31.6 g/dL (32-36); Mean Platelet Volume 8.3 fL (7.4-10.4); Monocytes # (auto) 0.06 K/uL (0.11-0.59); Monocytes % (auto) 0.7 %; Neutrophils % (auto) 95.4 %; Platelet Count 312 K/uL (130-400); RDW Coefficient of Variation 17.5 % (11.5-14.5); RDW Standard Deviation 48.7 fL (36.4-46.3); Red Blood Count 3.84 M/uL (4.7-6.1); White Blood Count 8.18 K/uL (4.8-10.8)
[2020-07-03 06:41] LABS: BUN Creatinine Ratio 16.7 (10-20); Calcium 8.2 mg/dl (8.5-10.1); Creatinine Clr Calc Pharmacy 59.3 ml/min; Est GFR (African American) 96.3 ml/min; Est GFR (Non-African American) 83.1 ml/min; Magnesium 2.2 mg/dl (1.8-2.4); Potassium 3.5 mmol/L (3.5-5.1)
--- NOTE | 2020-07-03 07:15 | XRay Report ---
XR chest 1V portable CLINICAL HISTORY: Congestive failure COMPARISON STUDY: 07/02/2020 FINDINGS: The cardiac and mediastinal contours remain stable. There are postsurgical changes of midli ne sternotomy. The patient remains hyperinflated. There is improving interstitial thickening favoring resolving mild pulmonary vascular congestion. The previously identified left upper lung zone airspac e opacities appears less prominent.[There are no large pleural effusions. IMPRESSION: Slight improvement in the interstitial thickening, suggesting improving pulmonary vascula r congestion/fluid overload. ACT 112: Negative or not required by law. Electronically signed by: Isacc Sánchez M.D. 07/03/2020 7:13 AM
[2020-07-03] MEDS: ATORVASTATIN 40 MG TAB PO SCH (07:37)
[2020-07-03] MEDS: POTASSIUM CHLORIDE CRTAB 20 MEQ TABCR PO SCH ×2 (07:37→20:11)
[2020-07-03] MEDS: ASPIRIN 81 MG ECTAB PO SCH (07:37)
[2020-07-03] MEDS: amLODIPine BESYLATE 5 MG TAB PO SCH ×2 (09:58→20:11)
[2020-07-03] MEDS: FUROSEMIDE 40 MG TAB PO SCH (09:58)
[2020-07-03] MEDS: hydrALAZINE 10 MG TAB PO SCH ×2 (09:58→15:19)
--- NOTE | 2020-07-03 10:32 | Cardiology Consultation ---
Date of Consultation July 03, 2020 Assessment & Plan (1) Acute hypoxemic respiratory failure: (2) Breathlessness: (3) Pneumonia: (4) Acute hyponatremia: (5) History of coronary artery bypass graft: (6) History of heart valve replacement: (7) History of nasopharyngeal cancer: (8) CHF (congestive heart failure): (9) Hypertension: (10) Hyperlipidemia: 75-year-old male seen at the request of Dr. Holly, evaluation of congestive heart failure. The patient examines as euvolemic. History and physical examination suggest probable aspiration pneumonia as a complication of his nasopharyngeal cancer, underlying emphysema with chronic bronchitis from his history of longstanding history of tobacco abuse (reformed in 2013). I would be cautious with the administration of additional diuretics for diastolic congestive heart failure (HFpEF), continuing his outpatient oral diuretic dave men at present. Hydralazine will be held due to observed hypotension. Further recommendations pending evaluation by Dr. Gonzales as well as ongoing hospitalization. Supervising Physician Co-Signing Physician Notes Patient seen and examined with Brian Iyer PA-C. Agree with findings and assessment as above. History of Present Illness Reason for Consultation: CHF Requesting Physician: Avni Attending Physician: Osiel History of Present Illness Mr. Shar Dodson is a very pleasant 75 year old male who is being seen at the request of Dr. Kingsley Holly. Reason for consultation is congestive heart failure. Patient complains of a cough with difficulty expectorating phlegm, shortness of breath, upper chest congestion. He attributes this to his palatal defect, prior dental extraction, history of carcinoma of the oropharynx, palate, nasopharynx, status post cisplatin and radiation treatment. Patient notes improvement in his presenting symptoms mostly from the use of a flutter valve and also some improvement with the nebulizer treatment in the ER. The patient denies chest pain, palpitations, orthopnea, PND, abdominal bloating, penile/scrotal edema, lower extremity peripheral edema, or abrupt weight change. EKG on presentation revealed normal sinus rhythm at 77 bpm. Troponin negative. NT pro B type natruretic peptide was normal on June 07, 2020 at 577 pg/mL Continuous telemetry monitoring reveals sinus in the 60s to 70s. No arrhythmias observed. Resting echocardiography performed last on May 02, 2020 was technically limited, demonstrating normal size left ventricle with mild concentric left ventricular hypertrophy. Systolic function was normal with an ejection fraction of 50 to 55%. RV size and function were normal. Right and left atrial size were normal. Prior resting echocardiography on May 25, 2018 revealed moderate concentric LVH, grade 2 diastolic dysfunction, mild mitral regurgitation, borderline elevated pulmonary artery systolic pressure, and an aortic valve prosthesis with normal gradients. The patient has a history of severe symptomatic aortic valve stenosis as well as coronary artery disease, undergoing coronary artery bypass grafting x1 with a vein graft to the obtuse marginal and aortic valve replacement with a #23 [place] epic bioprosthesis on January 24, 2017. Additional issues include difficult to control hypertension, history of sinus bradycardia with intermittent left bundle branch block, remote history of silent septal myocardial infarction, history of tobacco abuse Family history: Father with liver cancer. Mother at the age of 93. Social history: Reformed smoker having quit in 2013, after smoking 1 pack/day since the age of 13. No alcohol. No illegal drug use. 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 Lives alone. Complete Review of Systems: Cataracts status post extraction. Hearing loss. History rheumatic fever. Prior tonsillectomy. No fevers. No chills. No night sweats. No dizziness or syncope. No rash. No tick bites. Appetite has been okay. Complete Review of Systems is otherwise as stated in this document, negative, or noncontributory. Allergies Allergy/AdvReac Type Severity Reaction Status Date / Time No Known Allergies Allergy Verified 07/02/20 18:36 Home Medications Medication Instructions Recorded Confirmed Type amlodipine 5 mg PO BID 09/18/18 07/02/20 History aspirin 81 mg PO QAM 09/18/18 07/02/20 History atorvastatin 40 mg PO QAM 09/18/18 07/02/20 History nitroglycerin 0.4 mg SUBLINGUAL UD PRN 09/18/18 07/02/20 History terazosin 2 mg PO HS 09/18/18 07/02/20 History albuterol sulfate [ProAir HFA] 2 inh INHALATION Q6H PRN #8.5 g 05/06/20 07/02/20 Rx furosemide [Lasix] 40 mg PO QAM #30 tab 05/06/20 07/02/20 Rx potassium chloride 20 meq PO BID #30 tab 05/06/20 07/02/20 Rx Lactobacillus acidoph-L.bulgar 1 tab PO BID #30 tab 07/08/20 Rx [Lactinex] amoxicillin-pot clavulanate 1 tab PO BIDM #6 tab 07/08/20 Rx doxycycline hyclate 100 mg PO BID #6 cap 07/08/20 Rx Patient History Medical History Cardiac murmur CHILD FROM RHEUMATIC FEVER CKD (chronic kidney disease) stage 3, GFR 30-59 ml/min Former tobacco use Hearing deficit BILAT History of [place] (myocardial infarction) 2017/ [facility] History of nasopharyngeal cancer s/p radiation, chemo- NO PORT ANYMORE CLEARED NOV 2013 History of rheumatic fever Hyperlipidemia Hypertension Left bundle branch block (LBBB) Palate abnormality prosthetic palate Surgical History History of cardiac cath 2017 - [place] --> CABG - [facility]- follows w/ Dr. Milton- [facility]/ NO STENTS History of cataract surgery History of colonoscopy with polypectomy 09/25/2018. Propofol given, no issues. History of coronary artery bypass graft One vessel - 2016 - [facility] History of heart valve replacement Bioprosthetic aortic valve - [facility] 2016 History of shoulder surgery RIGHT History of tonsillectomy History of tooth extraction History of vascular access device NO LONGER HAS PORT Status post insertion of percutaneous endoscopic gastrostomy (PEG) tube PLACED DUE TO PALATE SURGERY- THEN REMOVED 2014 Family History Father Cancer Liver Cancer Social History Smoking Status: Never smoker Tobacco Type: Cigarettes Second Hand Exposure: No; Hx Alcohol Use: No Hx Substance Use: No Preferred Language: Armenian Communication Ability: Effective Receptionist Required: No Beliefs That Will Affect Care: None marital status: / Current Living Situation: Alone Other Information That Helps Us Care for You: No Feels Safe at Home: Yes Safety Concerns: Feels Safe At This Time Assistive Devices: Denture - Upper and Glasses Assistive Devices Comment: "walking stick" Review of Systems Review of Systems: All systems reviewed & are unremarkable except as noted in HPI & below Physical Exam Physical Exam: General: A&Ox3. NAD. Hard of hearing. Pleasant. Cooperative. HENT: Normocephalic. Atraumatic. Eyes: PER. Conjunctiva pink, sclera pale. Neck: No carotid bruits. Neck veins are flat. No HJR. Heart: RRR. No murmur. No rub. No gallop. PMI is nondisplaced. Lungs: Diffuse rhonchi and wheeze. Decreased. Diminished. Abdomen: +BS. Soft. Nontender. No masses or organomegaly. Extremities: No clubbing, cyanosis, or edema. Limited neurological examination is without focal deficits. Pulses: radial=2/4, posterior tibial=2/4. Results & Data ([facility]) Vital Signs (Past 12 Hours) Vital Signs Temp Pulse Resp BP Pulse Ox 07/03/20 08:56 72 16 102/66 07/03/20 07:47 37.4 C 68 26 H 89/56 L 91 07/03/20 03:10 36.5 C 83 17 92/52 L 92 07/02/20 23:35 36.9 C 74 20 89/47 L 93 07/02/20 22:45 121/66 Laboratory Results Laboratory Results - last 24 hr 07/02/20 07/02/20 07/02/20 16:35 16:35 16:45 WBC 7.34 RBC 3.85 L Hgb 9.2 L Hct 29.7 L MCV 77.1 L MCH 23.9 L MCHC 31.0 L RDW Std Deviation 50.5 H RDW Coeff of Navid 17.6 H Plt Count 328 MPV 8.1 Immature Gran % (Auto) 0.3 Neut % (Auto) 82.3 Lymph % (Auto) 5.4 [place] % (Auto) 10.1 Eos % (Auto) 1.8 Baso % (Auto) 0.1 Neut # (Auto) 6.04 Lymph # (Auto) 0.40 L [place] # (Auto) 0.74 H Eos # (Auto) 0.13 Baso # (Auto) 0.01 Immature Gran # (Auto) 0.02 Sodium Potassium Chloride Carbon Dioxide Anion Gap BUN Creatinine Est Cr Clr Drug Dosing Est GFR ( Amer) Est GFR (Non-Af Amer) BUN/Creatinine Ratio Glucose Calcium Magnesium Total Bilirubin AST ALT Alkaline Phosphatase Troponin I Total Protein Albumin Globulin Albumin/Globulin Ratio Urine Color Urine Appearance Urine pH Ur Specific [place] Urine Protein Urine Glucose (UA) Urine Ketones Urine Blood Urine Nitrite Urine Bilirubin Urine Urobilinogen Ur Leukocyte Esterase COVID-19 Eval Order Covid19 at [facility] SARS-CoV-2 (PCR) NEGATIVE 07/02/20 07/02/20 07/03/20 16:45 17:50 06:02 WBC 8.18 RBC 3.84 L Hgb 9.1 L Hct 28.8 L MCV 75.0 L MCH 23.7 L MCHC 31.6 L RDW Std Deviation 48.7 H RDW Coeff of Navid 17.5 H Plt Count 312 MPV 8.3 Immature Gran % (Auto) 0.2 Neut % (Auto) 95.4 Lymph % (Auto) 3.7 [place] % (Auto) 0.7 Eos % (Auto) 0.0 Baso % (Auto) 0.0 Neut # (Auto) 7.80 H Lymph # (Auto) 0.30 L [place] # (Auto) 0.06 L Eos # (Auto) 0.00 Baso # (Auto) 0.00 Immature Gran # (Auto) 0.02 Sodium 131 L Potassium 3.5 Chloride 92 L Carbon Dioxide 36 H Anion Gap 3.0 BUN 18 Creatinine 1.01 Est Cr Clr Drug Dosing 53.9 Est GFR ( Amer) 83.4 Est GFR (Non-Af Amer) 71.9 BUN/Creatinine Ratio 18.3 Glucose 79 Calcium 8.5 Magnesium 2.3 Total Bilirubin 0.6 AST 21 ALT 16 Alkaline Phosphatase 79 Troponin I < 0.015 Total Protein 7.2 Albumin 2.7 L Globulin 4.5 H Albumin/Globulin Ratio 0.6 L Urine Color Yellow Urine Appearance Clear Urine pH 5.0 Ur Specific [place] 1.011 Urine Protein Negative Urine Glucose (UA) Negative Urine Ketones Negative Urine Blood Negative Urine Nitrite Negative Urine Bilirubin Negative Urine Urobilinogen Negative Ur Leukocyte Esterase Negative COVID-19 Eval Order SARS-CoV-2 (PCR) 07/03/20 06:02 WBC RBC Hgb Hct MCV MCH MCHC RDW Std Deviation RDW Coeff of Navid Plt Count MPV Immature Gran % (Auto) Neut % (Auto) Lymph % (Auto) [place] % (Auto) Eos % (Auto) Baso % (Auto) Neut # (Auto) Lymph # (Auto) [place] # (Auto) Eos # (Auto) Baso # (Auto) Immature Gran # (Auto) Sodium 133 L Potassium 3.5 Chloride 94 L Carbon Dioxide 35 H Anion Gap 4.0 BUN 15 Creatinine 0.89 Est Cr Clr Drug Dosing 59.3 Est GFR ( Amer) 96.3 Est GFR (Non-Af Amer) 83.1 BUN/Creatinine Ratio 16.7 Glucose 122 H Calcium 8.2 L Magnesium 2.2 Total Bilirubin AST ALT Alkaline Phosphatase Troponin I Total Protein Albumin Globulin Albumin/Globulin Ratio Urine Color Urine Appearance Urine pH Ur Specific [place] Urine Protein Urine Glucose (UA) Urine Ketones Urine Blood Urine Nitrite Urine Bilirubin Urine Urobilinogen Ur Leukocyte Esterase COVID-19 Eval Order SARS-CoV-2 (PCR) (1) CHF (congestive heart failure) Heart failure chronicity: chronic Heart failure type: unspecified Qualified Code(s): I50.9 - Heart failure, unspecified (2) Pneumonia Laterality: left Lung location: upper lobe of lung Pneumonia type: due to unspecified organism Qualified Code(s): J18.9 - Pneumonia, unspecified organism
[2020-07-03] MEDS: DOXYCYCLINE HYCLATE 100 MG in DEXTROSE 5% 100 ML IV SCH ×2 (11:30→22:35)
--- NOTE | 2020-07-03 14:28 | Fluoroscopy Report ---
FL video swallow HISTORY: Headache surgery. Aspiration pneumonia. TECHNIQUE: Video fluoroscopic evaluation of swallowing was performed in the AP and lateral projection s by the speech pathology staff. The patient is fed nectar-thick and thin liquid barium. FLUOROSCOPY TIME: 1.8 minutes. NUMBER OF FLUOROSCOPY IMAGES: 0 COMPARISON STUDY: None. FINDINGS: There is silent aspiration when swallowing thin nectar thick liquids. There is nasopharynge al regurgitation. IMPRESSION: 1. Marked silent aspiration. 2. Please see the speech pathologist report for detailed findings and recommendations. ACT 112: Negative or not required by law. Electronically signed by: Isacc Sánchez M.D. 07/03/2020 2:27 PM
--- NOTE | 2020-07-03 15:15 | Electrocardiogram Report ---
Test Reason : Blood Pressure : / mmHG Vent. Rate : 077 BPM Atrial Rate : 077 BPM P-R Int : 162 ms QRS Dur : 088 ms QT Int : 374 ms P-R-T Axes : 067 055 038 degrees QTc Int : 423 ms Normal sinus rhythm Normal ECG When compared with ECG of 07-JUN-2020 12:58, No significant change was found Confirmed by Vu Rinaldi ([id number]) on 07/03/2020 3:14:28 PM Referred By: REFERRED SELF Confirmed By:Vu Rinaldi
--- NOTE | 2020-07-03 16:45 | Hospitalist Progress Note ---
Date of Service July 03, 2020 Assessment & Plan (1) Acute hypoxemic respiratory failure: Secondary to acute on chronic diastolic heart failure and is complicated by right upper lobe infiltration Could be secondary to aspiration pneumonitis Has been on intravenous Zosyn and doxycycline for now Oxygen as needed and has been requiring 6 L of nasal cannula oxygen to maintain saturation Clinically a little bit better (2) Pneumonia: Focal left upper lobe airspace opacity Likely secondary to pneumonia Has been on intravenous Zosyn and doxycycline (3) Acute on chronic diastolic heart failure: Has history of AVR with history of diastolic heart failure Initial presentation could be secondary to acute diastolic heart failure Received intravenous Lasix and will continue with oral Lasix Appreciate cardiology input and recommendation Monitor PRP (4) History of heart valve replacement: History of bioprosthetic aortic valve replacement No significant regurgitation and or stenosis in echo (5) Palate abnormality: 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 Has significant swallowing problem Significant problem with expectoration of mucus and cough Appreciate speech therapy evaluation Fluoroscopic video swallow showed marked silent aspiration We will discuss with the patient about possible PEG tube placement to continue feeding (6) Hypertension: Remains stable DVT prophylaxis Subcu Lovenox CODE STATUS Full Admission and Anticipated Discharge Date Admission Date: July 02, 2020 Subjective 07/03/2020 The patient was seen and examined in telemetry unit He has been feeling much better since admission Still has problem with swallowing and ongoing cough Shortness of breath is much better denies any chest pain and/or palpitation Review of Systems Review of Systems: All systems reviewed and are unremarkable except as noted below Respiratory: + cough, + chest congestion and + dyspnea on exertion Cardiovascular: no chest pain and no palpitations Gastrointestinal: + nausea; no vomiting Physical Exam Physical Exam: Lying in bed comfortably Constitutional: + ill appearing and average body habitus Eyes: PERRL, conjunctivae normal, anicteric sclerae ENMT: external ear and nose normal, oropharynx normal Neck: trachea midline, no thyromegaly Respiratory: + respiratory distress (Minimal distress at rest) A uscultation: + diminished lung sounds and + crackles (Bibasilar crackles more on the right than the left) Cardiovascular: Rate/Rhythm: regular rate and regular rhythm Heart Sounds: no murmur Extremities: no edema Gastrointestinal (Abdomen): Inspection/Auscultation: abdomen not distended Percussion/Palpation: abdomen soft; abdomen nontender Musculoskeletal: No acute arthritis in any joint Neurologic: Alert, awake and oriented x3 Psychiatric: A+Ox3, euthymic affect Lymphatic: no cervical or axillary lymphadenopathy Results & Data Results & Data ([facility]) Vital Signs (Past 12 Hours) Vital Signs Temp Pulse Resp BP BP Pulse Ox 07/03/20 15:16 36.5 C 78 24 116/59 L 98 07/03/20 12:38 69 20 89 L 07/03/20 11:54 37.3 C 69 32 H 91/50 L 89 L 07/03/20 08:56 72 16 102/66 07/03/20 07:47 37.4 C 68 26 H 89/56 L 91 Laboratory Results Short CBC 07/02/20 07/03/20 Range/Units 16:45 06:02 WBC 7.34 8.18 (4.8-10.8) K/uL Hgb 9.2 L 9.1 L (14.0-18.0) g/dL Hct 29.7 L 28.8 L (42-52) % Plt Count 328 312 (130-400) K/uL BMP 07/02/20 07/03/20 16:45 06:02 Sodium 131 L 133 L Potassium 3.5 3.5 Chloride 92 L 94 L Carbon Dioxide 36 H 35 H BUN 18 15 Creatinine 1.01 0.89 Glucose 79 122 H Calcium 8.5 8.2 L Cardiac Enzymes 07/02/20 Range/Units 16:45 Troponin I < 0.015 (0-0.045) ng/ml Liver Function 07/02/20 Range/Units 16:45 Total Bilirubin 0.6 (0.2-1) mg/dl AST 21 (15-37) U/L ALT 16 (12-78) U/L Alkaline Phosphatase 79 (45-117) U/L Albumin 2.7 L (3.4-5.0) gm/dl Urine 07/02/20 Range/Units 17:50 Urine Color Yellow Urine Appearance Clear (Clear) Urine pH 5.0 (4.5-7.5) Ur Specific [place] 1.011 (1.000-1.030) Urine Protein Negative (Negative) Urine Glucose (UA) Negative (Negative) Medications Administered Current Inpatient Medications Acetaminophen (Acetaminophen 325 Mg Tab) 650 mg PO Q4H PRN PRN Reason: Pain or Fever Stop: 08/01/20 21:53 Albuterol (Albuterol Hfa 8 Gm Inhaler) 2 puffs INH Q6H PRN PRN Reason: shortness of breath or wheezing Stop: 08/01/20 22:13 Amlodipine Besylate (Amlodipine Besylate 5 Mg Tab) 5 mg PO BID [facility] Stop: 08/01/20 21:53 Last Admin: 07/03/20 09:58 Dose: Not Given Documented by: Aspirin (Aspirin 81 Mg Ectab) [facility] Stop: 08/02/20 08:59 Last Admin: 07/03/20 07:37 Dose: 81 mg Documented by: Atorvastatin Calcium (Atorvastatin 40 Mg Tab) 40 mg PO QAM [facility] Stop: 08/02/20 08:59 Last Admin: 07/03/20 07:37 Dose: 40 mg Documented by: Enoxaparin Sodium (Enoxaparin Inj 40 Mg/0.4 Ml Syr) 40 mg SQ Q24H [facility] Stop: 08/01/20 21:59 Last Admin: 07/02/20 22:48 Dose: 40 mg Documented by: Furosemide (Furosemide 40 Mg Tab) 40 mg PO QAM [facility] Stop: 08/02/20 08:59 Last Admin: 07/03/20 09:58 Dose: Not Given Documented by: Doxycycline Hyclate 100 mg/ (Dextrose) 110 mls @ 50 mls/hr IV Q12H [facility] Stop: 07/09/20 22:59 Last Infusion: 07/03/20 15:20 Dose: Infused Documented by: Piperacillin Sod/Tazobactam (Sod 3.375 gm/ Dextrose) 115 mls @ 28.75 mls/hr IV Q8H [facility]; Protocol Stop: 07/10/20 03:59 Last Infusion: 07/03/20 16:05 Dose: Infused Documented by: Ipratropium [place] (Ipratropium [place] Neb Soln 0.02% 2.5 Ml Vial) 0.5 mg INH Q4H PRN PRN Reason: SOB OR WHEEZING Stop: 08/01/20 21:53 Last Admin: 07/03/20 12:37 Dose: 0.5 mg Documented by: Levalbuterol HCl (Levalbuterol 1.25mg/0.5ml Neb) 1.25 mg INH Q4H PRN PRN Reason: SOB OR WHEEZING Stop: 08/01/20 21:53 Last Admin: 07/03/20 12:37 Dose: 1.25 mg Documented by: Miscellaneous Information (Piperacill/Tazobac Consult Active) 1 ea N/A UD PRN PRN Reason: Consult Stop: 08/01/20 21:53 Nitroglycerin (Nitroglycerin Sl 0.4 Mg/Tab Tab) 0.4 mg SL UD PRN PRN Reason: Chest Pain Stop: 08/01/20 21:53 Polyethylene Glycol (Polyethylene (Miralax) 17 Gm Pack) 17 gm PO DAILY PRN PRN Reason: Constipation Stop: 08/01/20 21:53 Potassium Chloride (Potassium Chloride Crtab 20 Meq Tabcr) 20 meq PO BID RO[facility] Stop: 08/01/20 21:53 Last Admin: 07/03/20 07:37 Dose: 20 meq Documented by: Terazosin HCl (Terazosin Hcl 1 Mg Cap) 2 mg PO HS ROYA Stop: 08/01/20 21:53 Last Admin: 07/02/20 22:49 Dose: 2 mg Documented by: (1) Pneumonia Laterality: left Lung location: upper lobe of lung Pneumonia type: due to unspecified organism Qualified Code(s): J18.9 - Pneumonia, unspecified organism
[2020-07-03] MEDS: TERAZOSIN HCL 1 MG CAP PO SCH (20:12)
[2020-07-03] MEDS: ENOXAPARIN INJ 40 MG/0.4 ML SYR SQ SCH (22:35)
[2020-07-04] MEDS: PIPERACILLIN/TAZOBACTAM 3.375 GM in DEXTROSE 5% 100 ML IV SCH ×3 (04:03→20:41)
[2020-07-04 06:34] LABS: Hematocrit (blood only) 28.8 % (42-52); Hemoglobin 9.2 g/dL (14.0-18.0); Immature Granulocytes # (auto) 0.04 K/uL (0.00-0.02); Immature Granulocytes % (auto) 0.3 %; Lymphocytes # (auto) 0.38 K/uL (1.2-3.4); Lymphocytes % (auto) 3.3 %; Mean Corpuscular Hgb Conc 31.9 g/dL (32-36); Monocytes # (auto) 0.66 K/uL (0.11-0.59); Monocytes % (auto) 5.7 %; Neutrophils # (auto) 10.55 K/uL (1.4-6.5); Neutrophils % (auto) 90.7 %; Platelet Count 301 K/uL (130-400); RDW Coefficient of Variation 17.4 % (11.5-14.5); RDW Standard Deviation 48.3 fL (36.4-46.3); Red Blood Count 3.84 M/uL (4.7-6.1); White Blood Count 11.63 K/uL (4.8-10.8)
[2020-07-04 07:07] LABS: Calcium 8.5 mg/dl (8.5-10.1); Est GFR (African American) 96.3 ml/min; Est GFR (Non-African American) 83.1 ml/min; Magnesium 2.4 mg/dl (1.8-2.4)
[2020-07-04] MEDS: amLODIPine BESYLATE 5 MG TAB PO SCH ×3 (08:27→20:39)
[2020-07-04] MEDS: FUROSEMIDE 40 MG TAB PO SCH ×2 (08:28→11:43)
[2020-07-04] MEDS: ATORVASTATIN 40 MG TAB PO SCH (08:30)
[2020-07-04] MEDS: ASPIRIN 81 MG ECTAB PO SCH (08:31)
[2020-07-04] MEDS: POTASSIUM CHLORIDE CRTAB 20 MEQ TABCR PO SCH ×3 (08:31→20:39)
[2020-07-04] MEDS: DOXYCYCLINE HYCLATE 100 MG in DEXTROSE 5% 100 ML IV SCH ×2 (11:36→22:34)
--- NOTE | 2020-07-04 13:56 | Hospitalist Progress Note ---
Date of Service July 04, 2020 Assessment & Plan (1) Acute hypoxemic respiratory failure: Secondary to acute on chronic diastolic heart failure and is complicated by right upper lobe infiltration Could be secondary to aspiration pneumonitis Has been on intravenous Zosyn and doxycycline for now Oxygen as needed and has been requiring 6 L of nasal cannula oxygen to maintain saturation Clinically much better today and requiring about 4 L of nasal cannula oxygen to maintain saturation Still has the cough but shortness of breath has diminished Recurrent aspiration Video swallow showed marked silent aspiration Appreciate speech therapy input and recommendation Patient wanted to continue with oral feeding even though he has a high risk of aspiration He does not want to consider PEG tube placement for now (2) Pneumonia: Focal left upper lobe airspace opacity Likely secondary to pneumonia Has been on intravenous Zosyn and doxycycline Still has cough but no fever and/or chills (3) Acute on chronic diastolic heart failure: Has history of AVR with history of diastolic heart failure Initial presentation could be secondary to acute diastolic heart failure Received intravenous Lasix and will continue with oral Lasix Appreciate cardiology input and recommendation Monitor PRP-remains stable He is back on his oral furosemide as an outpatient (4) History of heart valve replacement: History of bioprosthetic aortic valve replacement No significant regurgitation and or stenosis in echo (5) Palate abnormality: 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 Has significant swallowing problem Significant problem with expectoration of mucus and cough Appreciate speech therapy evaluation Fluoroscopic video swallow showed marked silent aspiration We will discuss with the patient about possible PEG tube placement to continue feeding Will need an ENT appointment as an outpatient (6) Hypertension: Remains stable DVT prophylaxis Subcu Lovenox CODE STATUS Full Admission and Anticipated Discharge Date Admission Date: July 02, 2020 Subjective 07/03/2020 The patient was seen and examined in telemetry unit He has been feeling much better since admission Still has problem with swallowing and ongoing cough Shortness of breath is much better denies any chest pain and/or palpitation 07/04/2020 The patient was seen and examined in telemetry unit He failed the video swallow test and has increased risk of aspiration if he tries to eat He has been following the recommendations as per the speech therapist to avoid/minimize aspiration Denies any more shortness of breath but he still has the cough Review of Systems Review of Systems: All systems reviewed and are unremarkable except as noted below Respiratory: + cough, + chest congestion and + dyspnea on exertion Gastrointestinal: + nausea; no vomiting Physical Exam Physical Exam: Lying in bed comfortably Constitutional: + ill appearing and average body habitus Eyes: PERRL, conjunctivae normal, anicteric sclerae ENMT: external ear and nose normal, oropharynx normal Neck: trachea midline, no thyromegaly Respiratory: + respiratory distress (Minimal distress at rest) Auscultation: + diminished lung sounds, + crackles (Bibasilar crackles more on the left than the right) and + wheezes (Minimal wheezing) Cardiovascular: Rate/Rhythm: regular rate and regular rhythm Heart Sounds: no murmur Extremities: no edema Gastrointestinal (Abdomen): Inspection/Auscultation: abdomen not distended Percussion/Palpation: abdomen soft; abdomen nontender Musculoskeletal: No acute arthritis in any joint Psychiatric: A+Ox3, euthymic affect Lymphatic: no cervical or axillary lymphadenopathy Results & Data Results & Data ([facility]) Vital Signs (Past 12 Hours) Vital Signs Temp Pulse Pulse Resp BP BP Pulse Ox 07/04/20 11:23 36.4 C L 54 L 20 107/57 L 96 07/04/20 07:52 54 L 07/04/20 07:45 36.3 C L 58 L 22 96/54 L 97 07/04/20 03:11 36.9 C 07/04/20 02:32 65 16 104/54 L 96 Laboratory Results Short CBC 07/04/20 Range/Units 06:23 WBC 11.63 H (4.8-10.8) K/uL Hgb 9.2 L (14.0-18.0) g/dL Hct 28.8 L (42-52) % Plt Count 301 (130-400) K/uL [facility] 07/04/20 06:23 Sodium 135 L Potassium 4.0 Chloride 98 Carbon Dioxide 34 H BUN 15 Creatinine 0.89 Glucose 88 Calcium 8.5 Medications Administered Current Inpatient Medications Acetaminophen (Acetaminophen 325 Mg Tab) 650 mg PO Q4H PRN PRN Reason: Pain or Fever Stop: 08/01/20 21:53 Albuterol (Albuterol Hfa 8 Gm Inhaler) 2 puffs INH Q6H PRN PRN Reason: shortness of breath or wheezing Stop: 08/01/20 22:13 Amlodipine Besylate (Amlodipine Besylate 5 Mg Tab) 5 mg PO BID [facility] Stop: 08/01/20 21:53 Last Admin: 07/04/20 11:43 Dose: Not Given Documented by: Aspirin (Aspirin 81 Mg Ectab) [facility] Stop: 08/02/20 08:59 Last Admin: 07/04/20 08:31 Dose: 81 mg Documented by: Atorvastatin Calcium (Atorvastatin 40 Mg Tab) 40 mg PO QAM [facility] Stop: 08/02/20 08:59 Last Admin: 07/04/20 08:30 Dose: 40 mg Documented by: Enoxaparin Sodium (Enoxaparin Inj 40 Mg/0.4 Ml Syr) 40 mg SQ Q24H [facility] Stop: 08/01/20 21:59 Last Admin: 07/03/20 22:35 Dose: 40 mg Documented by: Furosemide (Furosemide 40 Mg Tab) 40 mg PO QAM [facility] Stop: 08/02/20 08:59 Last Admin: 07/04/20 11:43 Dose: Not Given Documented by: Doxycycline Hyclate 100 mg/ (Dextrose) 110 mls @ 50 mls/hr IV Q12H [facility] Stop: 07/09/20 22:59 Last Infusion: 07/04/20 13:44 Dose: 0 mls/hr Documented by: Piperacillin Sod/Tazobactam (Sod 3.375 gm/ Dextrose) 115 mls @ 28.75 mls/hr IV Q8H [facility]; Protocol Stop: 07/10/20 03:59 Last Admin: 07/04/20 11:37 Dose: 28.8 mls/hr Documented by: Ipratropium [place] (Ipratropium [place] Neb Soln 0.02% 2.5 Ml Vial) 0.5 mg INH Q4H PRN PRN Reason: SOB OR WHEEZING Stop: 08/01/20 21:53 Last Admin: 07/03/20 12:37 Dose: 0.5 mg Documented by: Levalbuterol HCl (Levalbuterol 1.25mg/0.5ml Neb) 1.25 mg INH Q4H PRN PRN Reason: SOB OR WHEEZING Stop: 08/01/20 21:53 Last Admin: 07/03/20 12:37 Dose: 1.25 mg Documented by: Miscellaneous Information (Piperacill/Tazobac Consult Active) 1 ea N/A UD PRN PRN Reason: Consult Stop: 08/01/20 21:53 Nitroglycerin (Nitroglycerin Sl 0.4 Mg/Tab Tab) 0.4 mg SL UD PRN PRN Reason: Chest Pain Stop: 08/01/20 21:53 Polyethylene Glycol (Polyethylene (Miralax) 17 Gm Pack) 17 gm PO DAILY PRN PRN Reason: Constipation Stop: 08/01/20 21:53 Potassium Chloride (Potassium Chloride Crtab 20 Meq Tabcr) 20 meq PO BID ROYA Stop: 08/01/20 21:53 Last Admin: 07/04/20 11:43 Dose: Not Given Documented by: Terazosin HCl (Terazosin Hcl 1 Mg Cap) 2 mg PO HS [facility] Stop: 08/01/20 21:53 Last Admin: 07/03/20 20:12 Dose: 2 mg Documented by: (1) Pneumonia Laterality: left Lung location: upper lobe of lung Pneumonia type: due to unspecified organism Qualified Code(s): J18.9 - Pneumonia, unspecified organism
--- NOTE | 2020-07-04 16:52 | Cardiology Progress Note ---
Date of Service July 04, 2020 Assessment & Plan (1) Acute hypoxemic respiratory failure: (2) Breathlessness: (3) Pneumonia: (4) Acute hyponatremia: (5) History of coronary artery bypass graft: (6) History of heart valve replacement: (7) History of nasopharyngeal cancer: (8) CHF (congestive heart failure): (9) Hypertension: (10) Hyperlipidemia: 75-year-old male seen at the request of Dr. Holly, evaluation of congestive heart failure. The patient examines as euvolemic. History and physical examination suggest probable aspiration pneumonia as a complication of his nasopharyngeal cancer, underlying emphysema with chronic bronchitis from his history of longstanding history of tobacco abuse (reformed in 2013). I would be cautious with the administration of additional diuretics for diastolic congestive heart failure (HFpEF), continuing his outpatient oral diuretic regimen at present. Hydralazine will be held due to observed hypotension. Further recommendations pending evaluation by Dr. Gonzales as well as ongoing hospitalization. Admission and Anticipated Discharge Date Admission Date: July 02, 2020 Results & Data ([facility]) Vital Signs (Past 12 Hours) Vital Signs Temp Pulse Pulse Resp BP BP Pulse Ox 07/04/20 15:51 36.5 C 53 L 20 101/50 L 94 07/04/20 11:23 36.4 C L 54 L 20 107/57 L 96 07/04/20 07:52 54 L 07/04/20 07:45 36.3 C L 58 L 22 96/54 L 97 (1) Pneumonia Laterality: left Lung location: upper lobe of lung Pneumonia type: due to unspecified organism Qualified Code(s): J18.9 - Pneumonia, unspecified organism (2) CHF (congestive heart failure) Heart failure chronicity: chronic Heart failure type: unspecified Qualified Code(s): I50.9 - Heart failure, unspecified
[2020-07-04] MEDS: TERAZOSIN HCL 1 MG CAP PO SCH (20:45)
[2020-07-04] MEDS: ENOXAPARIN INJ 40 MG/0.4 ML SYR SQ SCH (22:31)
[2020-07-05] MEDS: PIPERACILLIN/TAZOBACTAM 3.375 GM in DEXTROSE 5% 100 ML IV SCH ×3 (04:11→20:35)
[2020-07-05] MEDS: ATORVASTATIN 40 MG TAB PO SCH (07:54)
[2020-07-05] MEDS: ASPIRIN 81 MG ECTAB PO SCH (07:54)
[2020-07-05] MEDS: amLODIPine BESYLATE 5 MG TAB PO SCH ×2 (08:53→20:33)
[2020-07-05] MEDS: POTASSIUM CHLORIDE CRTAB 20 MEQ TABCR PO SCH ×2 (08:53→20:33)
[2020-07-05] MEDS: FUROSEMIDE 40 MG TAB PO SCH (08:53)
[2020-07-05] MEDS: DOXYCYCLINE HYCLATE 100 MG in DEXTROSE 5% 100 ML IV SCH ×2 (11:20→22:16)
--- NOTE | 2020-07-05 11:37 | Hospitalist Progress Note ---
Date of Service July 05, 2020 Assessment & Plan (1) Acute hypoxemic respiratory failure: Secondary to acute on chronic diastolic heart failure and is complicated by right upper lobe infiltration Could be secondary to aspiration pneumonitis Has been on intravenous Zosyn and doxycycline for now Oxygen as needed and has been requiring 6 L of nasal cannula oxygen to maintain saturation Clinically much better today and requiring about 4 L of nasal cannula oxygen to maintain saturation Still has the cough but shortness of breath has diminished Requiring 2 L liters of nasal cannula oxygen to maintain saturation Recurrent aspiration Video swallow showed marked silent aspiration Appreciate speech therapy input and recommendation Patient wanted to continue with oral feeding even though he has a high risk of aspiration He does not want to consider PEG tube placement for now He has been taking extreme precautions to avoid aspiration while eating and wants to continue that (2) Pneumonia: Focal left upper lobe airspace opacity Likely secondary to pneumonia Has been on intravenous Zosyn and doxycycline Still has cough but no fever and/or chills Still has significant bilateral coarse crackles and he cannot cough up sputum normally due to abnormality in palate (3) Acute on chronic diastolic heart failure: Has history of AVR with history of diastolic heart failure Initial presentation could be secondary to acute diastolic heart failure Received intravenous Lasix and will continue with oral Lasix Appreciate cardiology input and recommendation Monitor PRP-remains stable He is back on his oral furosemide as an outpatient No significant fluid overload (4) History of heart valve replacement: History of bioprosthetic aortic valve replacement No significant regurgitation and or stenosis in echo (5) Palate abnormality: 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 Has significant swallowing problem Significant problem with expectoration of mucus and cough Appreciate speech therapy evaluation Fluoroscopic video swallow showed marked silent aspiration We will discuss with the patient about possible PEG tube placement to continue feeding Will need an ENT appointment as an outpatient (6) Hypertension: Remains stable DVT prophylaxis Subcu Lovenox CODE STATUS Full Admission and Anticipated Discharge Date Admission Date: July 02, 2020 Subjective 07/03/2020 The patient was seen and examined in telemetry unit He has been feeling much better since admission Still has problem with swallowing and ongoing cough Shortness of breath is much better denies any chest pain and/or palpitation 07/04/2020 The patient was seen and examined in telemetry unit He failed the video swallow test and has increased risk of aspiration if he tries to eat He has been following the recommendations as per the speech therapist to avoid/minimize aspiration Denies any more shortness of breath but he still has the cough 07/05/2020 The patient was seen and examined in telemetry unit He remained stable with occasional cough but no shortness of breath at rest He has been eating about 50 to 70% of his meal taking extreme precautions to randy id aspiration Denies any significant symptoms Review of Systems Review of Systems: All systems reviewed and are unremarkable except as noted below Respiratory: + cough, + chest congestion and + dyspnea on exertion Gastrointestinal: + nausea; no vomiting Physical Exam Physical Exam: Lying in bed comfortably Constitutional: + ill appearing and average body habitus Eyes: PERRL, conjunctivae normal, anicteric sclerae ENMT: external ear and nose normal, oropharynx normal Neck: trachea midline, no thyromegaly Respiratory: no respiratory distress (Minimal distress at rest) Auscultation: + diminished lung sounds, + crackles (Bibasilar crackles more on the left than the right) and + wheezes (Minimal wheezing) Cardiovascular: Rate/Rhythm: regular rate and regular rhythm Heart Sounds: no murmur Extremities: no edema Gastrointestinal (Abdomen): Inspection/Auscultation: abdomen not distended Percussion/Palpation: abdomen soft; abdomen nontender Musculoskeletal: No acute arthritis in any joint Neurologic: Alert, awake and oriented x3. No focal sensory and motor deficit appreciated Psychiatric: A+Ox3, euthymic affect Lymphatic: no cervical or axillary lymphadenopathy Results & Data Results & Data ([facility]) Vital Signs (Past 12 Hours) Vital Signs Temp Pulse Pulse Resp BP BP Pulse Ox 07/05/20 09:00 63 07/05/20 07:49 36.3 C L 58 L 17 106/56 L 97 07/05/20 04:00 36.9 C 54 L 14 89/55 L 92 07/05/20 02:32 36.6 C 58 L 20 120/66 90 07/05/20 00:28 54 L 07/05/20 00:19 59 L 15 120/61 92 Medications Administered Current Inpatient Medications Acetaminophen (Acetaminophen 325 Mg Tab) 650 mg PO Q4H PRN PRN Reason: Pain or Fever Stop: 08/01/20 21:53 Albuterol (Albuterol Hfa 8 Gm Inhaler) 2 puffs INH Q6H PRN PRN Reason: shortness of breath or wheezing Stop: 08/01/20 22:13 Amlodipine Besylate (Amlodipine Besylate 5 Mg Tab) 5 mg PO BID [facility] Stop: 08/01/20 21:53 Last Admin: 07/05/20 08:53 Dose: 5 mg Documented by: Aspirin (Aspirin 81 Mg Ectab) 81 mg PO QAM [facility] Stop: 08/02/20 08:59 Last Admin: 07/05/20 07:54 Dose: 81 mg Documented by: Atorvastatin Calcium (Atorvastatin 40 Mg Tab) 40 mg PO QAM [facility] Stop: 08/02/20 08:59 Last Admin: 07/05/20 07:54 Dose: 40 mg Documented by: Enoxaparin Sodium (Enoxaparin Inj 40 Mg/0.4 Ml Syr) 40 mg SQ Q24H [facility] Stop: 08/01/20 21:59 Last Admin: 07/04/20 22:31 Dose: 40 mg Documented by: Furosemide (Furosemide 40 Mg Tab) 40 mg PO QAM [facility] Stop: 08/02/20 08:59 Last Admin: 07/05/20 08:53 Dose: 40 mg Documented by: Doxycycline Hyclate 100 mg/ (Dextrose) 110 mls @ 50 mls/hr IV Q12H [facility] Stop: 07/09/20 22:59 Last Admin: 07/05/20 11:20 Dose: 50 mls/hr Documented by: Piperacillin Sod/Tazobactam (Sod 3.375 gm/ Dextrose) 115 mls @ 28.75 mls/hr IV Q8H [facility]; Protocol Stop: 07/10/20 03:59 Last Infusion: 07/05/20 08:53 Dose: Infused Documented by: Ipratropium [place] (Ipratropium [place] Neb Soln 0.02% 2.5 Ml Vial) 0.5 mg INH Q4H PRN PRN Reason: SOB OR WHEEZING Stop: 08/01/20 21:53 Last Admin: 07/03/20 12:37 Dose: 0.5 mg Documented by: Levalbuterol HCl (Levalbuterol 1.25mg/0.5ml Neb) 1.25 mg INH Q4H PRN PRN Reason: SOB OR WHEEZING Stop: 08/01/20 21:53 Last Admin: 07/03/20 12:37 Dose: 1.25 mg Documented by: Miscellaneous Information (Piperacill/Tazobac Consult Active) 1 ea N/A UD PRN PRN Reason: Consult Stop: 08/01/20 21:53 Nitroglycerin (Nitroglycerin Sl 0.4 Mg/Tab Tab) 0.4 mg SL UD PRN PRN Reason: Chest Pain Stop: 08/01/20 21:53 Polyethylene Glycol (Polyethylene (Miralax) 17 Gm Pack) 17 gm PO DAILY PRN PRN Reason: Constipation Stop: 08/01/20 21:53 Potassium Chloride (Potassium Chloride Crtab 20 Meq Tabcr) 20 meq PO BID [facility] Stop: 08/01/20 21:53 Last Admin: 07/05/20 08:53 Dose: 20 meq Documented by: Terazosin HCl (Terazosin Hcl 1 Mg Cap) 2 mg PO HS [facility] Stop: 08/01/20 21:53 Last Admin: 07/04/20 20:45 Dose: 2 mg Documented by: (1) Pneumonia Laterality: left Lung location: upper lobe of lung Pneumonia type: due to unspecified organism Qualified Code(s): J18.9 - Pneumonia, unspecified organism
[2020-07-05] MEDS ORDERED: OXYMETAZOLINE 0.05% 30 ML BTL PRN (14:17)
[2020-07-05] MEDS: TERAZOSIN HCL 1 MG CAP PO SCH (20:33)
[2020-07-05] MEDS: ENOXAPARIN INJ 40 MG/0.4 ML SYR SQ SCH (22:15)
[2020-07-06] MEDS: PIPERACILLIN/TAZOBACTAM 3.375 GM in DEXTROSE 5% 100 ML IV SCH ×3 (03:58→20:10)
[2020-07-06 05:59] LABS: Basophils # (auto) 0.01 K/uL (0-0.2); Basophils % (auto) 0.2 %; Eosinophils % (auto) 4.7 %; Hematocrit (blood only) 33.2 % (42-52); Hemoglobin 10.4 g/dL (14.0-18.0); Immature Granulocytes # (auto) 0.05 K/uL (0.00-0.02); Immature Granulocytes % (auto) 0.8 %; Lymphocytes # (auto) 0.93 K/uL (1.2-3.4); Lymphocytes % (auto) 14.4 %; Mean Corpuscular Hemoglobin 23.7 pg (25-34); Mean Corpuscular Hgb Conc 31.3 g/dL (32-36); Mean Corpuscular Volume 75.8 fL (80-100); Mean Platelet Volume 8.4 fL (7.4-10.4); Monocytes # (auto) 0.71 K/uL (0.11-0.59); Neutrophils # (auto) 4.44 K/uL (1.4-6.5); Neutrophils % (auto) 68.9 %; Platelet Count 352 K/uL (130-400); RDW Coefficient of Variation 17.9 % (11.5-14.5); RDW Standard Deviation 50.4 fL (36.4-46.3); Red Blood Count 4.38 M/uL (4.7-6.1); White Blood Count 6.44 K/uL (4.8-10.8)
[2020-07-06 06:31] LABS: BUN Creatinine Ratio 18.8 (10-20); Calcium 8.7 mg/dl (8.5-10.1); Creatinine Clr Calc Pharmacy 62.5 ml/min; Est GFR (African American) 98.6 ml/min; Est GFR (Non-African American) 85.1 ml/min; Magnesium 1.9 mg/dl (1.8-2.4)
[2020-07-06 06:33] LABS: Phosphorus 3.6 mg/dl (2.5-4.9)
[2020-07-06] MEDS: ASPIRIN 81 MG ECTAB PO SCH (08:11)
[2020-07-06] MEDS: ATORVASTATIN 40 MG TAB PO SCH (08:11)
[2020-07-06] MEDS: amLODIPine BESYLATE 5 MG TAB PO SCH ×2 (11:40→20:08)
[2020-07-06] MEDS: FUROSEMIDE 40 MG TAB PO SCH (11:40)
[2020-07-06] MEDS: POTASSIUM CHLORIDE CRTAB 20 MEQ TABCR PO SCH ×2 (11:44→20:08)
[2020-07-06] MEDS: DOXYCYCLINE HYCLATE 100 MG in DEXTROSE 5% 100 ML IV SCH ×2 (11:49→22:31)
--- NOTE | 2020-07-06 15:59 | Hospitalist Progress Note ---
Date of Service July 06, 2020 Assessment & Plan (1) Acute hypoxemic respiratory failure: Secondary to acute on chronic diastolic heart failure and is complicated by right upper lobe infiltration Could be secondary to aspiration pneumonitis Has been on intravenous Zosyn and doxycycline for now Oxygen as needed and has been requiring 6 L of nasal cannula oxygen to maintain saturation Clinically much better today and requiring about 4 L of nasal cannula oxygen to maintain saturation Still has the cough but shortness of breath has diminished Requiring 2 L liters of nasal cannula oxygen to maintain saturation Remains stable and still requiring about 2 to 3 L of oxygen via nasal cannula to maintain saturation Denies any shortness of breath at rest and still has cough Recurrent aspiration Video swallow showed marked silent aspiration Appreciate speech therapy input and recommendation Patient wanted to continue with oral feeding even though he has a high risk of aspiration He does not want to consider PEG tube placement for now He has been taking extreme precautions to avoid aspiration while eating and wants to continue that We will continue oral feeding as advised (2) Pneumonia: Focal left upper lobe airspace opacity Likely secondary to pneumonia Has been on intravenous Zosyn and doxycycline Still has cough but no fever and/or chills Still has significant bilateral coarse crackles and he cannot cough up sputum normally due to abnormality in palate We will continue current antibiotic (3) Acute on chronic diastolic heart failure: Has history of AVR with history of diastolic heart failure Initial presentation could be secondary to acute diastolic heart failure Received intravenous Lasix and will continue with oral Lasix Appreciate cardiology input and recommendation Monitor PRP-remains stable He is back on his oral furosemide as an outpatient No significant fluid overload (4) History of heart valve replacement: History of bioprosthetic aortic valve replacement No significant regurgitation and or stenosis in echo (5) Palate abnormality: 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 Has significant swallowing problem Significant problem with expectoration of mucus and cough Appreciate speech therapy evaluation Fluoroscopic video swallow showed marked silent aspiration We will discuss with the patient about possible PEG tube placement to continue feeding Will need an ENT appointment as an outpatient (6) Hypertension: Remains stable DVT prophylaxis Subcu Lovenox CODE STATUS Full Likely discharge tomorrow Admission and Anticipated Discharge Date Admission Date: July 02, 2020 Subjective 07/03/2020 The patient was seen and examined in telemetry unit He has been feeling much better since admission Still has problem with swallowing and ongoing cough Shortness of breath is much better denies any chest pain and/or palpitation 07/04/2020 The patient was seen and examined in telemetry unit He failed the video swallow test and has increased risk of aspiration if he tries to eat He has been following the recommendations as per the speech therapist to avoid/minimize aspiration Denies any more shortness of breath but he still has the cough 07/05/2020 The patient was seen and examined in telemetry unit He remained stable with occasional cough but no shortness of breath at rest He has been eating about 50 to 70% of his meal taking extreme precautions to avoid aspiration Denies any significant symptoms 07/06/2020 The patient was seen and examined in telemetry unit He has been feeling much better today and has been using flutter valves with improvement of his condition He still wants to continue oral feet with precaution does not want to have PEG tube Review of Systems Review of Systems: All systems reviewed and are unremarkable except as noted below Respiratory: + cough, + chest congestion and + dyspnea on exertion Gastrointestinal: no nausea and no vomiting Physical Exam Physical Exam: Lying in bed comfortably Constitutional: + ill appearing and average body habitus Eyes: PERRL, conjunctivae normal, anicteric sclerae ENMT: external ear and nose normal, oropharynx normal Neck: trachea midline, no thyromegaly Respiratory: no respiratory distress (Minimal distress at rest) Auscultation: + diminished lung sounds, + crackles (Bibasilar crackles more on the left than the right) and + wheezes (Minimal wheezing) Cardiovascular: Rate/Rhythm: regular rate and regular rhythm Heart Sounds: no murmur Extremities: no edema Gastrointestinal (Abdomen): Inspection/Auscultation: abdomen not distended Percussion/Palpation: abdomen soft; abdomen nontender Musculoskeletal: No acute arthritis in any joint Neurologic: Alert, awake and oriented x3. No focal sensory and motor deficit appreciated Psychiatric: A+Ox3, euthymic affect Lymphatic: no cervical or axillary lymphadenopathy Results & Data Results & Data ([facility]) Vital Signs (Past 12 Hours) Vital Signs Temp Pulse Pulse Resp BP Pulse Ox 07/06/20 15:00 59 L 07/06/20 11:00 60 14 119/65 95 07/06/20 08:00 53 L 07/06/20 07:16 37.1 C 56 L 16 92/53 L 95 Laboratory Results Short CBC 07/06/20 Range/Units 05:27 WBC 6.44 (4.8-10.8) K/uL Hgb 10.4 L (14.0-18.0) g/dL Hct 33.2 L (42-52) % Plt Count 352 (130-400) K/uL [facility] 07/06/20 05:27 Sodium 135 L Potassium 4.0 Chloride 96 L Carbon Dioxide 36 H BUN 16 Creatinine 0.84 Glucose 69 L Calcium 8.7 Medications Administered Current Inpatient Medications Acetaminophen (Acetaminophen 325 Mg Tab) 650 mg PO Q4H PRN PRN Reason: Pain or Fever Stop: 08/01/20 21:53 Albuterol (Albuterol Hfa 8 Gm Inhaler) 2 puffs INH Q6H PRN PRN Reason: shortness of breath or wheezing Stop: 08/01/20 22:13 Amlodipine Besylate (Amlodipine Besylate 5 Mg Tab) 5 mg PO BID [facility] Stop: 08/01/20 21:53 Last Admin: 07/06/20 11:40 Dose: 5 mg Documented by: Aspirin (Aspirin 81 Mg Ectab) 81 mg PO [facility] Stop: 08/02/20 08:59 Last Admin: 07/06/20 08:11 Dose: 81 mg Documented by: Atorvastatin Calcium ([facility]atin 40 Mg Tab) [facility]: 08/02/20 08:59 Last Admin: 07/06/20 08:11 Dose: 40 mg Documented by: Enoxaparin Sodium (Enoxaparin Inj 40 Mg/0.4 Ml Syr) 40 mg SQ Q24H [facility] Stop: 08/01/20 21:59 Last Admin: 07/05/20 22:15 Dose: 40 mg Documented by: Furosemide (Furosemide 40 Mg Tab) 40 mg PO QAM [facility] Stop: 08/02/20 08:59 Last Admin: 07/06/20 11:40 Dose: 40 mg Documented by: Doxycycline Hyclate 100 mg/ (Dextrose) 110 mls @ 50 mls/hr IV Q12H [facility] Stop: 07/09/20 22:59 Last Infusion: 07/06/20 14:15 Dose: Infused Documented by: Piperacillin Sod/Tazobactam (Sod 3.375 gm/ Dextrose) 115 mls @ 28.75 mls/hr IV Q8H [facility]; Protocol Stop: 07/10/20 03:59 Last Admin: 07/06/20 12:39 Dose: 28.8 mls/hr Documented by: Ipratropium [place] (Ipratropium [place] Neb Soln 0.02% 2.5 Ml Vial) 0.5 mg INH Q4H PRN PRN Reason: SOB OR WHEEZING Stop: 08/01/20 21:53 Last Admin: 07/03/20 12:37 Dose: 0.5 mg Documented by: Levalbuterol HCl (Levalbuterol 1.25mg/0.5ml Neb) 1.25 mg INH Q4H PRN PRN Reason: SOB OR WHEEZING Stop: 08/01/20 21:53 Last Admin: 07/03/20 12:37 Dose: 1.25 mg Documented by: Miscellaneous Information (Piperacill/Tazobac Consult Active) 1 ea N/A UD PRN PRN Reason: Consult Stop: 08/01/20 21:53 Nitroglycerin (Nitroglycerin Sl 0.4 Mg/Tab Tab) 0.4 mg SL UD PRN PRN Reason: Chest Pain Stop: 08/01/20 21:53 Oxymetazoline HCl (Oxymetazoline 0.05% 30 Ml Btl) 1 sprays NA Q4H PRN PRN Reason: Bleeding Stop: 08/04/20 14:16 Polyethylene Glycol (Polyethylene (Miralax) 17 Gm Pack) 17 gm PO DAILY PRN PRN Reason: Constipation Stop: 08/01/20 21:53 Potassium Chloride (Potassium Chloride Crtab 20 Meq Tabcr) 20 meq PO BID [facility] Stop: 08/01/20 21:53 Last Admin: 07/06/20 11:44 Dose: 20 meq Documented by: Terazosin HCl (Terazosin Hcl 1 Mg Cap) 2 mg PO HS [facility] Stop: 08/01/20 21:53 Last Admin: 07/05/20 20:33 Dose: 2 mg Documented by: (1) Pneumonia Laterality: left Lung location: upper lobe of lung Pneumonia type: due to unspecified organism Qualified Code(s): J18.9 - Pneumonia, unspecified organism
[2020-07-06] MEDS: TERAZOSIN HCL 1 MG CAP PO SCH (20:08)
[2020-07-06] MEDS: ENOXAPARIN INJ 40 MG/0.4 ML SYR SQ SCH (22:30)
[2020-07-07] MEDS: PIPERACILLIN/TAZOBACTAM 3.375 GM in DEXTROSE 5% 100 ML IV SCH ×3 (04:05→20:35)
[2020-07-07 06:17] LABS: Basophils # (auto) 0.01 K/uL (0-0.2); Basophils % (auto) 0.1 %; Eosinophils # (auto) 0.43 K/uL (0-0.5); Eosinophils % (auto) 6.1 %; Immature Granulocytes # (auto) 0.05 K/uL (0.00-0.02); Immature Granulocytes % (auto) 0.7 %; Lymphocytes # (auto) 0.87 K/uL (1.2-3.4); Lymphocytes % (auto) 12.4 %; Mean Corpuscular Hemoglobin 24.3 pg (25-34); Mean Corpuscular Hgb Conc 31.3 g/dL (32-36); Mean Corpuscular Volume 77.7 fL (80-100); Mean Platelet Volume 8.4 fL (7.4-10.4); Monocytes # (auto) 0.75 K/uL (0.11-0.59); Monocytes % (auto) 10.7 %; Platelet Count 345 K/uL (130-400); RDW Coefficient of Variation 18.1 % (11.5-14.5); RDW Standard Deviation 51.5 fL (36.4-46.3); Red Blood Count 4.12 M/uL (4.7-6.1); White Blood Count 7.01 K/uL (4.8-10.8)
[2020-07-07 06:49] LABS: BUN Creatinine Ratio 18.8 (10-20); Calcium 8.2 mg/dl (8.5-10.1); Creatinine Clr Calc Pharmacy 58.5 ml/min; Est GFR (African American) 96.3 ml/min; Est GFR (Non-African American) 83.1 ml/min; Magnesium 2.2 mg/dl (1.8-2.4); Potassium 3.6 mmol/L (3.5-5.1)
[2020-07-07] MEDS: ASPIRIN 81 MG ECTAB PO SCH (07:46)
[2020-07-07] MEDS: amLODIPine BESYLATE 5 MG TAB PO SCH ×2 (07:47→20:35)
[2020-07-07] MEDS: POTASSIUM CHLORIDE CRTAB 20 MEQ TABCR PO SCH ×2 (07:47→20:34)
[2020-07-07] MEDS: FUROSEMIDE 40 MG TAB PO SCH (07:48)
[2020-07-07] MEDS: ATORVASTATIN 40 MG TAB PO SCH (09:50)
--- NOTE | 2020-07-07 11:31 | Hospitalist Progress Note ---
Date of Service July 07, 2020 Assessment & Plan (1) Acute hypoxemic respiratory failure: Secondary to acute on chronic diastolic heart failure and is complicated by right upper lobe infiltration Could be secondary to aspiration pneumonitis Has been on intravenous Zosyn and doxycycline for now Oxygen as needed and has been requiring 6 L of nasal cannula oxygen to maintain saturation Clinically much better today and requiring about 4 L of nasal cannula oxygen to maintain saturation Still has the cough but shortness of breath has diminished Requiring 2 L liters of nasal cannula oxygen to maintain saturation Remains stable and still requiring about 2 to 3 L of oxygen via nasal cannula to maintain saturation Denies any shortness of breath at rest and still has cough He has been on home oxygen and he takes this continuously He wants to go home today Recurrent aspiration Video swallow showed marked silent aspiration Appreciate speech therapy input and recommendation Patient wanted to continue with oral feeding even though he has a high risk of aspiration He does not want to consider PEG tube placement for now He has been taking extreme precautions to avoid aspiration while eating and wants to continue that We will continue oral feeding as advised (2) Pneumonia: Focal left upper lobe airspace opacity Likely secondary to pneumonia Has been on intravenous Zosyn and doxycycline Still has cough but no fever and/or chills Still has significant bilateral coarse crackles and he cannot cough up sputum normally due to abnormality in palate We will continue current antibiotic We need to change antibiotic orally before discharge to finish a total of 10 days course (3) Acute on chronic diastolic heart failure: Has history of AVR with history of diastolic heart failure Initial presentation could be secondary to acute diastolic heart failure Received intravenous Lasix and will continue with oral Lasix Appreciate cardiology input and recommendation Monitor PRP-remains stable He is back on his oral furosemide as an outpatient No significant fluid overload Still has the bilateral basal crackles likely secondary to inability to bring of secretions (4) History of heart valve replacement: History of bioprosthetic aortic valve replacement No significant regurgitation and or stenosis in echo (5) Palate abnormality: 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 Has significant swallowing problem Significant problem with expectoration of mucus and cough Appreciate speech therapy evaluation Fluoroscopic video swallow showed marked silent aspiration We will discuss with the patient about possible PEG tube placement to continue feeding Will need an ENT appointment as an outpatient-he has an appointment with the ENT as an outpatient in the near future (6) Hypertension: Remains stable DVT prophylaxis Subcu Lovenox CODE STATUS Full We will try to get PT and OT evaluation before discharge if possible Admission and Anticipated Discharge Date Admission Date: July 02, 2020 Subjective 07/03/2020 The patient was seen and examined in telemetry unit He has been feeling much better since admission Still has problem with swallowing and ongoing cough Shortness of breath is much better denies any chest pain and/or palpitation 07/04/2020 The patient was seen and examined in telemetry unit He failed the video swallow test and has increased risk of aspiration if he tries to eat He has been following the recommendations as per the speech therapist to avoid/minimize aspiration Denies any more shortness of breath but he still has the cough 07/05/2020 The patient was seen and examined in telemetry unit He remained stable with occasional cough but no shortness of breath at rest He has been eating about 50 to 70% of his meal taking extreme precautions to avoid aspiration Denies any significant symptoms 07/06/2020 The patient was seen and examined in telemetry unit He has been feeling much better today and has been using flutter valves with improvement of his condition He still wants to continue oral feet with precaution does not want to have PEG tube 07/07/20 The patient was seen and examined in telemetry unit He says that he is back at his baseline and denies any significant symptoms He has been moving in the room and denies any problem with that He wants to go home today though his blood pressure noted to be low this morning without any symptoms Review of Systems Review of Systems: All systems reviewed and are unremarkable except as noted below Respiratory: + cough, + chest congestion and + dyspnea on exertion Physical Exam Physical Exam: Lying in bed comfortably Constitutional: average body habitus; no acute distress and not ill appearing Eyes: PERRL, conjunctivae normal, anicteric sclerae ENMT: external ear and nose normal, oropharynx normal Neck: trachea midline, no thyromegaly Respiratory: no respiratory distress (Minimal distress at rest) Auscultation: + diminished lung sounds, + crackles (Bibasilar crackles more on the left than the right) and + wheezes (Minimal wheezing) Cardiovascular: Rate/Rhythm: regular rate and regular rhythm Heart Sounds: no murmur Extremities: no edema Gastrointestinal (Abdomen): Inspection/Auscultation: abdomen not distended Percussion/Palpation: abdomen soft; abdomen nontender Musculoskeletal: No acute arthritis in any joint Neurologic: Alert, awake and oriented x3. Generally weak but no focal sensory and motor deficit appreciated Psychiatric: A+Ox3, euthymic affect Lymphatic: no cervical or axillary lymphadenopathy Results & Data Results & Data ([facility]) Vital Signs (Past 12 Hours) Vital Signs Temp Pulse Pulse Resp BP BP Pulse Ox 07/07/20 08:00 63 07/07/20 07:31 37.0 C 73 20 101/61 96 07/07/20 03:00 36.6 C 69 16 113/56 L 93 Laboratory Results Short CBC 07/07/20 Range/Units 05:43 WBC 7.01 (4.8-10.8) K/uL Hgb 10.0 L (14.0-18.0) g/dL Hct 32.0 L (42-52) % Plt Count 345 (130-400) K/uL [facility] 07/07/20 05:43 Sodium 138 Potassium 3.6 Chloride 99 Carbon Dioxide 35 H BUN 17 Creatinine 0.89 Glucose 71 Calcium 8.2 L Medications Administered Current Inpatient Medications Acetaminophen (Acetaminophen 325 Mg Tab) 650 mg PO Q4H PRN PRN Reason: Pain or Fever Stop: 08/01/20 21:53 Albuterol (Albuterol Hfa 8 Gm Inhaler) 2 puffs INH Q6H PRN PRN Reason: shortness of breath or wheezing Stop: 08/01/20 22:13 Amlodipine Besylate (Amlodipine Besylate 5 Mg Tab) 5 mg PO BID [facility] Stop: 08/01/20 21:53 Last Admin: 07/07/20 07:47 Dose: Not Given Documented by: Aspirin (Aspirin 81 Mg Ectab) 81 mg PO QAM [facility] Stop: 08/02/20 08:59 Last Admin: 07/07/20 07:46 Dose: 81 mg Documented by: Atorvastatin Calcium (Atorvastatin 40 Mg Tab) 40 mg PO QAM [facility] Stop: 08/02/20 08:59 Last Admin: 07/07/20 09:50 Dose: 40 mg Documented by: Enoxaparin Sodium (Enoxaparin Inj 40 Mg/0.4 Ml Syr) 40 mg SQ Q24H [facility] Stop: 08/01/20 21:59 Last Admin: 07/06/20 22:30 Dose: 40 mg Documented by: Furosemide (Furosemide 40 Mg Tab) 40 mg PO QAM [facility] Stop: 08/02/20 08:59 Last Admin: 07/07/20 07:48 Dose: Not Given Documented by: Doxycycline Hyclate 100 mg/ (Dextrose) 110 mls @ 50 mls/hr IV Q12H [facility] Stop: 07/09/20 22:59 Last Infusion: 07/07/20 00:43 Dose: Infused Documented by: Piperacillin Sod/Tazobactam (Sod 3.375 gm/ Dextrose) 115 mls @ 28.75 mls/hr IV Q8H [facility]; Protocol Stop: 07/10/20 03:59 Last Infusion: 07/07/20 07:48 Dose: Infused Documented by: Ipratropium [place] (Ipratropium [place] Neb Soln 0.02% 2.5 Ml Vial) 0.5 mg INH Q4H PRN PRN Reason: SOB OR WHEEZING Stop: 08/01/20 21:53 Last Admin: 07/03/20 12:37 Dose: 0.5 mg Documented by: Levalbuterol HCl (Levalbuterol 1.25mg/0.5ml Neb) 1.25 mg INH Q4H PRN PRN Reason: SOB OR WHEEZING Stop: 08/01/20 21:53 Last Admin: 07/03/20 12:37 Dose: 1.25 mg Documented by: Miscellaneous Information (Piperacill/Tazobac Consult Active) 1 ea N/A UD PRN PRN Reason: Consult Stop: 08/01/20 21:53 Nitroglycerin (Nitroglycerin Sl 0.4 Mg/Tab Tab) 0.4 mg SL UD PRN PRN Reason: Chest Pain Stop: 08/01/20 21:53 Oxymetazoline HCl (Oxymetazoline 0.05% 30 Ml Btl) 1 sprays NA Q4H PRN PRN Reason: Bleeding Stop: 08/04/20 14:16 Polyethylene Glycol (Polyethylene (Miralax) 17 Gm Pack) 17 gm PO DAILY PRN PRN Reason: Constipation Stop: 08/01/20 21:53 Potassium Chloride (Potassium Chloride Crtab 20 Meq Tabcr) 20 meq PO BID [facility] Stop: 08/01/20 21:53 Last Admin: 07/07/20 07:47 Dose: 20 meq Documented by: Terazosin HCl (Terazosin Hcl 1 Mg Cap) 2 mg PO HS [facility] Stop: 08/01/20 21:53 Last Admin: 07/06/20 20:08 Dose: 2 mg Documented by: (1) Pneumonia Laterality: left Lung location: upper lobe of lung Pneumonia type: due to unspecified organism Qualified Code(s): J18.9 - Pneumonia, unspecified organism
[2020-07-07] MEDS: DOXYCYCLINE HYCLATE 100 MG in DEXTROSE 5% 100 ML IV SCH ×2 (12:10→22:47)
--- NOTE | 2020-07-07 14:04 | Cardiology Progress Note ---
Date of Service July 07, 2020 Assessment & Plan (1) Pneumonia: (2) Acute on chronic diastolic heart failure: (3) Hypertension: * Transition to oral antibiotics per primary team. * Blood pressure appears well controlled off of hydralazine. Continue to hold, continue prior to hospital treatment with furosemide, amlodipine, terazosin. * Of note, furosemide is a new medication as of April of this year. Volume status appears stable. * Agree with Lovenox subcutaneously for DVT prophylaxis while hospitalized. * Will request post hospital cardiology follow-up. Admission and Anticipated Discharge Date Admission Date: July 02, 2020 Subjective Patient seen in cardiology follow-up given his history of difficult to control hypertension, bioprosthetic AVR, CABG. Patient feeling well. He states that he is doing well with tucking his chin while swallowing to help prevent aspiration. Blood pressure stable. Oxygen requirements improving. Telemetry reveals sinus rhythm with left bundle branch block. Physical Exam Physical Exam: Temp Pulse Resp BP Pulse Ox 36.9 C 70 18 140/67 96 07/07/20 11:30 07/07/20 11:30 07/07/20 11:30 07/07/20 11:30 07/07/20 11:30 Results & Data ([facility]) Vital Signs (Past 12 Hours) Vital Signs Temp Pulse Pulse Resp BP BP Pulse Ox 07/07/20 11:30 36.9 C 70 18 140/67 96 07/07/20 08:00 63 07/07/20 07:31 37.0 C 73 20 101/61 96 07/07/20 03:00 36.6 C 69 16 113/56 L 93 Laboratory Results CBC 07/07/20 Range/Units 05:43 WBC 7.01 (4.8-10.8) K/uL RBC 4.12 L (4.7-6.1) M/uL Hgb 10.0 L (14.0-18.0) g/dL Hct 32.0 L (42-52) % Plt Count 345 (130-400) K/uL Neut # (Auto) 4.90 (1.4-6.5) K/uL Lymph # (Auto) 0.87 L (1.2-3.4) K/uL [place] # (Auto) 0.75 H (0.11-0.59) K/uL Eos # (Auto) 0.43 (0-0.5) K/uL Baso # (Auto) 0.01 (0-0.2) K/uL Comprehensive Metabolic Panel 07/07/20 Range/Units 05:43 Sodium 138 (136-145) mmol/L Potassium 3.6 (3.5-5.1) mmol/L Chloride 99 (98-107) mmol/L Carbon Dioxide 35 H (21-32) mmol/L BUN 17 (7-18) mg/dl Creatinine 0.89 (0.6-1.4) mg/dl Glucose 71 (70-99) mg/dl Calcium 8.2 L (8.5-10.1) mg/dl Intake and Output 07/06/20 07/07/20 07/07/20 22:59 06:59 14:59 Intake Total 112.8 / 1542.8 725 / 1542.8 115 / 115 Output Total Balance 111.8 / 1541.8 725 / 1541.8 115 / 115 Intake: IV 112.8 / 562.8 225 / 562.8 115 / 115 Doxycycline Hyclate 100 mg In 110 / 220 Dextrose 5% 100 ml @ 50 mls/hr IV Q12H [facility] Rx#:[id number] Piperacillin/Tazobactam 3.375 112.8 / 342.8 115 / 342.8 115 / 115 gm In Dextrose 5% 100 ml @ 28. 75 mls/hr IV Q8H [facility] Rx#: [id number] Oral 500 / 980 Output: # Bowel Movements Other: Other Intake Source sips Weight 58.6 kg Weight Measurement Method Standing Scale (1) Pneumonia Laterality: left Lung location: upper lobe of lung Pneumonia type: due to unspecified organism Qualified Code(s): J18.9 - Pneumonia, unspecified organism
[2020-07-07] MEDS: TERAZOSIN HCL 1 MG CAP PO SCH (20:35)
[2020-07-07] MEDS: ENOXAPARIN INJ 40 MG/0.4 ML SYR SQ SCH (21:18)
[2020-07-08] MEDS: PIPERACILLIN/TAZOBACTAM 3.375 GM in DEXTROSE 5% 100 ML IV SCH (03:40)
[2020-07-08] MEDS: amLODIPine BESYLATE 5 MG TAB PO SCH (08:16)
[2020-07-08] MEDS: POTASSIUM CHLORIDE CRTAB 20 MEQ TABCR PO SCH (08:17)
[2020-07-08] MEDS: ASPIRIN 81 MG ECTAB PO SCH (08:17)
[2020-07-08] MEDS: ATORVASTATIN 40 MG TAB PO SCH (08:17)
[2020-07-08] MEDS: FUROSEMIDE 40 MG TAB PO SCH (08:17)
--- NOTE | 2020-07-08 10:39 | Hospitalist Progress Note ---
Date of Service July 08, 2020 Assessment & Plan (1) Acute hypoxemic respiratory failure: Secondary to acute on chronic diastolic heart failure and is complicated by right upper lobe infiltration Could be secondary to aspiration pneumonitis Has been on intravenous Zosyn and doxycycline for now Oxygen as needed and has been requiring 6 L of nasal cannula oxygen to maintain saturation Clinically much better today and requiring about 4 L of nasal cannula oxygen to maintain saturation Still has the cough but shortness of breath has diminished Requiring 2 L liters of nasal cannula oxygen to maintain saturation Remains stable and still requiring about 2 to 3 L of oxygen via nasal cannula to maintain saturation Denies any shortness of breath at rest and still has cough He has been on home oxygen and he takes this continuously Requiring about 3 L of oxygen to maintain saturation and he has been on home oxygen continuously Recurrent aspiration Video swallow showed marked silent aspiration Appreciate speech therapy input and recommendation Patient wanted to continue with oral feeding even though he has a high risk of aspiration He does not want to consider PEG tube placement for now He has been taking extreme precautions to avoid aspiration while eating and wants to continue that We will continue oral feeding as advised He will make an appointment with his ENT physician as an outpatient (2) Pneumonia: Focal left upper lobe airspace opacity Likely secondary to pneumonia Has been on intravenous Zosyn and doxycycline Still has cough but no fever and/or chills Still has significant bilateral coarse crackles and he cannot cough up sputum normally due to abnormality in palate We will continue current antibiotic We need to change antibiotic orally before discharge to finish a total of 10 days course Will give oral Augmentin and doxycycline (3) Acute on chronic diastolic heart failure: Has history of AVR with history of diastolic heart failure Initial presentation could be secondary to acute diastolic heart failure Received intravenous Lasix and will continue with oral Lasix Appreciate cardiology input and recommendation Monitor PRP-remains stable He is back on his oral furosemide as an outpatient No significant fluid overload Still has the bilateral basal crackles likely secondary to inability to bring of secretions Will have follow-up with cardiology and also CHF clinic (4) History of heart valve replacement: History of bioprosthetic aortic valve replacement No significant regurgitation and or stenosis in echo (5) Palate abnormality: 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 Has significant swallowing problem Significant problem with expectoration of mucus and cough Appreciate speech therapy evaluation Fluoroscopic video swallow showed marked silent aspiration We will discuss with the patient about possible PEG tube placement to continue feeding Will need an ENT appointment as an outpatient-he has an appointment with the ENT as an outpatient in the near future (6) Hypertension: Remains stable DVT prophylaxis Subcu Lovenox CODE STATUS Full Has had PT and OT evaluation He will be discharged home this afternoon Admission and Anticipated Discharge Date Admission Date: July 02, 2020 Subjective 07/03/2020 The patient was seen and examined in telemetry unit He has been feeling much better since admission Still has problem with swallowing and ongoing cough Shortness of breath is much better denies any chest pain and/or palpitation 07/04/2020 The patient was seen and examined in telemetry unit He failed the video swallow test and has increased risk of aspiration if he tries to eat He has been following the recommendations as per the speech therapist to avoid/minimize aspiration Denies any more shortness of breath but he still has the cough 07/05/2020 The patient was seen and examined in telemetry unit He remained stable with occasional cough but no shortness of breath at rest He has been eating about 50 to 70% of his meal taking extreme precautions to avoid aspiration Denies any significant symptoms 07/06/2020 The patient was seen and examined in telemetry unit He has been feeling much better today and has been using flutter valves with improvement of his condition He still wants to continue oral feet with precaution does not want to have PEG tube 07/07/20 The patient was seen and examined in telemetry unit He says that he is back at his baseline and denies any significant symptoms He has been moving in the room and denies any problem with that He wants to go home today though his blood pressure noted to be low this morning without any symptoms 07/08/2020 The patient was seen and examined in telemetry unit He remains stable and denies any significant symptoms He wants to go home this afternoon Review of Systems Review of Systems: All systems reviewed and are unremarkable except as noted below Respiratory: + cough, + chest congestion and + dyspnea on exertion Physical Exam Physical Exam: Lying in bed comfortably Constitutional: average body habitus; no acute distress and not ill appearing Eyes: PERRL, conjunctivae normal, anicteric sclerae ENMT: external ear and nose normal, oropharynx normal Neck: trachea midline, no thyromegaly Respiratory: no respiratory distress (Minimal distress at rest) Auscultation: + diminished lung sounds, + crackles (Bibasilar crackles more on the left than the right) and + wheezes (Minimal wheezing) Cardiovascular: Rate/Rhythm: regular rate and regular rhythm Heart Sounds: no murmur Extremities: no edema Gastrointestinal (Abdomen): Inspection/Auscultation: abdomen not distended Percussion/Palpation: abdomen soft; abdomen nontender Musculoskeletal: No acute arthritis in any joint Neurologic: Alert, awake and oriented x3. No focal sensory and motor deficit appreciated Psychiatric: A+Ox3, euthymic affect Lymphatic: no cervical or axillary lymphadenopathy Results & Data Results & Data ([facility]) Vital Signs (Past 12 Hours) Vital Signs Temp Pulse Pulse Resp BP BP Pulse Ox 07/08/20 09:49 98 07/08/20 08:00 58 L 07/08/20 07:24 36.5 C 60 16 116/65 95 07/08/20 05:40 88 L 07/08/20 03:43 36.8 C 67 12 101/79 95 07/07/20 23:43 36.9 C 70 18 110/64 94 07/07/20 23:31 70 Medications Administered Current Inpatient Medications Acetaminophen (Acetaminophen 325 Mg Tab) 650 mg PO Q4H PRN PRN Reason: Pain or Fever Stop: 08/01/20 21:53 Albuterol (Albuterol Hfa 8 Gm Inhaler) 2 puffs INH Q6H PRN PRN Reason: shortness of breath or wheezing Stop: 08/01/20 22:13 Amlodipine Besylate (Amlodipine Besylate 5 Mg Tab) 5 mg PO BID [facility] Stop: 08/01/20 21:53 Last Admin: 07/08/20 08:16 Dose: 5 mg Documented by: Aspirin (Aspirin 81 Mg Ectab) 81 mg PO QAM [facility] Stop: 08/02/20 08:59 Last Admin: 07/08/20 08:17 Dose: 81 mg Documented by: Atorvastatin Calcium ([facility]atin 40 Mg Tab) [facility] [place] Stop: 08/02/20 08:59 Last Admin: 07/08/20 08:17 Dose: 40 mg Documented by: Enoxaparin Sodium (Enoxaparin Inj 40 Mg/0.4 Ml Syr) 40 mg SQ Q24H [facility] Stop: 08/01/20 21:59 Last Admin: 07/07/20 21:18 Dose: 40 mg Documented by: Furosemide (Furosemide 40 Mg Tab) 40 mg PO QAM [facility] Stop: 08/02/20 08:59 Last Admin: 07/08/20 08:17 Dose: 40 mg Documented by: Doxycycline Hyclate 100 mg/ (Dextrose) 110 mls @ 50 mls/hr IV Q12H [facility] Stop: 07/09/20 22:59 Last Infusion: 07/08/20 01:52 Dose: Infused Documented by: Piperacillin Sod/Tazobactam (Sod 3.375 gm/ Dextrose) 115 mls @ 28.75 mls/hr IV Q8H [facility]; Protocol Stop: 07/10/20 03:59 Last Infusion: 07/08/20 08:05 Dose: Infused Documented by: Ipratropium [place] (Ipratropium [place] Neb Soln 0.02% 2.5 Ml Vial) 0.5 mg INH Q4H PRN PRN Reason: SOB OR WHEEZING Stop: 08/01/20 21:53 Last Admin: 07/03/20 12:37 Dose: 0.5 mg Documented by: Levalbuterol HCl (Levalbuterol 1.25mg/0.5ml Neb) 1.25 mg INH Q4H PRN PRN Reason: SOB OR WHEEZING Stop: 08/01/20 21:53 Last Admin: 07/03/20 12:37 Dose: 1.25 mg Documented by: Miscellaneous Information (Piperacill/Tazobac Consult Active) 1 ea N/A UD PRN PRN Reason: Consult Stop: 08/01/20 21:53 Nitroglycerin (Nitroglycerin Sl 0.4 Mg/Tab Tab) 0.4 mg SL UD PRN PRN Reason: Chest Pain Stop: 08/01/20 21:53 Oxymetazoline HCl (Oxymetazoline 0.05% 30 Ml Btl) 1 sprays NA Q4H PRN PRN Reason: Bleeding Stop: 08/04/20 14:16 Polyethylene Glycol (Polyethylene (Miralax) 17 Gm Pack) 17 gm PO DAILY PRN PRN Reason: Constipation Stop: 08/01/20 21:53 Potassium Chloride (Potassium Chloride Crtab 20 Meq Tabcr) 20 meq PO BID [facility] Stop: 08/01/20 21:53 Last Admin: 07/08/20 08:17 Dose: 20 meq Documented by: Terazosin HCl (Terazosin Hcl 1 Mg Cap) 2 mg PO HS [facility] Stop: 08/01/20 21:53 Last Admin: 07/07/20 20:35 Dose: 2 mg Documented by: (1) Pneumonia Laterality: left Lung location: upper lobe of lung Pneumonia type: due to unspecified organism Qualified Code(s): J18.9 - Pneumonia, unspecified organism
[2020-07-08] MEDS ORDERED: AMOXICILLIN/CLAVULANATE 500 MG TAB PO ONE (11:00)
[2020-07-08] MEDS ORDERED: AMOXICILLIN/CLAVULANATE 500 MG TAB PO SCH (17:00)
--- NOTE | 2020-07-08 18:39 | Discharge Summary ---
Date of Service July 08, 2020 Admission HPI Per Admitting Provider DICTATED BY: Kingsley Holly MD DATE OF ADMISSION: 07/02/2020 CHIEF COMPLAINT: Shortness of breath. HISTORY OF PRESENT ILLNESS: A 75-year-old male with past medical history significant for CAD status post CABG x1; aortic stenosis, status post bioprosthetic aortic valve replacement; intermittent left bundle branch block; hypertension; hyperlipidemia; and history of carcinoma of the oropharynx, palate, and nasopharynx, status post cisplatin and radiation treatment and dental extraction with resultant palate defect, but seems to be clear of disease since 2013, supposed to follow up with hematology/oncology, comes with 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 The patient was here in April with pneumonia and was seen in the first week of June with CHF. The patient says since last few days he is having cough, could not bring up phlegm because of his history of palatal defect from his dental extraction from his cancer. He says he is on soft diet. 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 He lives alone, ambulates without any support and he gets help once a week. He says he could not bring any phlegm, but having a lot of cough and 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 He felt like he had fluid in the lungs, which prompted him to come to the ER. Denies any fever, chills. Denies any headache, no blurred visions, no earache, no runny nose, no sore throat. His appetite is okay. He has no chest pain, no nausea, no abdominal pain. He has normal bowel and bladder movements. No swelling in the legs. Currently resting comfortably and hemodynamically stable. The patient says he is done with his COVID shots. Admission Exam Per Admitting Provider GENERAL: The patient is of moderate build, not in acute distress. VITAL SIGNS: Temperature 36.7, pulse 81, respiratory rate 16, blood pressure 100/62, oxygen 98% on 3 liters. HEENT: Pupils equal, round, and reactive to light. Oral mucosa moist. NECK: No JVD, no neck masses. CARDIOVASCULAR: S1, S2 heard, regular rate and rhythm. No murmur, no gallop. RESPIRATORY SYSTEM: Normal AP diameter. No accessory muscle use. No wheezing, no crackles. Coarse rhonchi heard in the throat region. ABDOMEN: Soft, bowel sounds present, nontender. No distention. CENTRAL NERVOUS SYSTEM: Cranial nerves II-XII grossly intact, nonfocal. EXTREMITIES: Trace edema, no erythema seen. Principal Diagnosis Acute hypoxic respiratory failure, acute on chronic diastolic heart failure, pneumonia, valvular heart disease, history of nasopharyngeal carcinoma status post chemo and radiation Discharge Exam Constitutional average body habitus; no acute distress and not ill appearing Eyes PERRL, conjunctivae normal, anicteric sclerae ENMT external ear and nose normal, oropharynx normal Neck trachea midline, no thyromegaly Respiratory no respiratory distress (Minimal distress at rest) Auscultation: + diminished lung sounds, + crackles (Bibasilar crackles more on the left than the right) and + wheezes (Minimal wheezing) Cardiovascular Rate/Rhythm: regular rate and regular rhythm Heart Sounds: no murmur Extremities: no edema Gastrointestinal (Abdomen) Inspection/Auscultation: abdomen not distended Percussion/Palpation: abdomen soft; abdomen nontender Psychiatric A+Ox3, euthymic affect Lymphatic no cervical or axillary lymphadenopathy Discharge Data Allergies Allergy/AdvReac Type Severity Reaction Status Date / Time No Known Allergies Allergy Verified 07/02/20 18:36 Consultations 07/02/20 19:07 ED Decision to Admit Stat 07/03/20 08:00 Consult Cardiology Routine Ordered Studies 07/03/20 12:46 FL video swallow Routine Hospital Course (1) Acute hypoxemic respiratory failure: Secondary to acute on chronic diastolic heart failure and is complicated by right upper lobe infiltration Could be secondary to aspiration pneumonitis Has been on intravenous Zosyn and doxycycline for now Oxygen as needed and has been requiring 6 L of nasal cannula oxygen to maintain saturation Clinically much better today and requiring about 4 L of nasal cannula oxygen to maintain saturation Still has the cough but shortness of breath has diminished Requiring 2 L liters of nasal cannula oxygen to maintain saturation Remains stable and still requiring about 2 to 3 L of oxygen via nasal cannula to maintain saturation Denies any shortness of breath at rest and still has cough He has been on home oxygen and he takes this continuously Requiring about 3 L of oxygen to maintain saturation and he has been on home oxygen continuously Recurrent aspiration Video swallow showed marked silent aspiration Appreciate speech therapy input and recommendation Patient wanted to continue with oral feeding even though he has a high risk of aspiration He does not want to consider PEG tube placement for now He has been taking extreme precautions to avoid aspiration while eating and wan ts to continue that We will continue oral feeding as advised He will make an appointment with his ENT physician as an outpatient (2) Pneumonia: Focal left upper lobe airspace opacity Likely secondary to pneumonia Has been on intravenous Zosyn and doxycycline Still has cough but no fever and/or chills Still has significant bilateral coarse crackles and he cannot cough up sputum normally due to abnormality in palate We will continue current antibiotic We need to change antibiotic orally before discharge to finish a total of 10 days course Will give oral Augmentin and doxycycline (3) Acute on chronic diastolic heart failure: Has history of AVR with history of diastolic heart failure Initial presentation could be secondary to acute diastolic heart failure Received intravenous Lasix and will continue with oral Lasix Appreciate cardiology input and recommendation Monitor PRP-remains stable He is back on his oral furosemide as an outpatient No significant fluid overload Still has the bilateral basal crackles likely secondary to inability to bring of secretions Will have follow-up with cardiology and also CHF clinic (4) History of heart valve replacement: History of bioprosthetic aortic valve replacement No significant regurgitation and or stenosis in echo (5) Palate abnormality: 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 Has significant swallowing problem Significant problem with expectoration of mucus and cough Appreciate speech therapy evaluation Fluoroscopic video swallow showed marked silent aspiration We will discuss with the patient about possible PEG tube placement to continue feeding Will need an ENT appointment as an outpatient-he has an appointment with the ENT as an outpatient in the near future (6) Hypertension: Remains stable DVT prophylaxis Subcu Lovenox CODE STATUS Full Has had PT and OT evaluation He will be discharged home this afternoon Total Time Total Time Spent Total Time Spent (In Minutes): 35 minutes Total Time Includes: Examination of the Patient, Discharge Planning, Medication Reconciliation and Communication With Other Providers Discharge Plan Discharge Items Patient Disposition: Home - Self-Care Reason For Visit: SOB Discharge Diagnosis: Acute hypoxic respiratory failure, acute on chronic diastolic heart failure, pneumonia, valvular heart disease, history of nasopharyngeal carcinoma status post chemo and radiation Condition on Discharge: Fair Activity: Resume your previous activity Non-emergency contact: Primary Care Provider Call non-emergency contact if: you have any medication questions and your symptoms worsen Follow-up/Referrals: Prudencio Burns MD [Primary Care Provider] - (Date & Time 07/14/2020 11:00 AM Provider Prudencio Burns III, MD [facility] ) Nely Joe PA-C [Physician [employer] Waitress/Waiter] - (Date & Time 07/22/2020 3:00 PM Provider Nely Joe PA-C Department Cardiology, [facility] ) Diet: Regular Diet Texture: Pureed (blended smooth) Addtl Attending Provider Instructions: Please take extra precaution to avoid fall. Take more time during eating with extra precaution to avoid aspiration as advised Please give regular follow-up appointments with your doctors Take your medicines as prescribed-do not take any more hydralazine Pending Studies at Discharge: No Stand-Alone Forms: My [facility] [employer], Smoking Cessation Medications and DC Order Prescriptions: New amoxicillin-pot clavulanate 500-125 mg Tablet 1 tab PO BIDM Qty: 6 RF: 0 doxycycline hyclate 100 mg Capsule 100 mg PO BID Qty: 6 RF: 0 Lactinex 1 million cell tablet,chewable 1 tab PO BID Qty: 30 RF: 0 Continued atorvastatin 40 mg Tablet 40 mg PO QAM RF: 0 amlodipine 5 mg Tablet 5 mg PO BID RF: 0 aspirin 81 mg Tablet,Delayed Release (Dr/Ec) 81 mg PO QAM RF: 0 terazosin 2 mg Capsule 2 mg PO HS RF: 0 nitroglycerin 0.4 mg Tablet, Sublingual 0.4 mg sublingual UD PRN (Reason: Chest Pain) RF: 0 potassium chloride 20 mEq tablet extended release 20 meq PO BID Qty: 30 RF: 0 albuterol sulfate [ProAir HFA] 90 mcg/actuation HFA aerosol inhaler 2 inh inhalation Q6H PRN (Reason: shortness of breath or wheezing) Qty: 8.5 RF: 0 furosemide [Lasix] 40 mg tablet 40 mg PO QAM Qty: 30 RF: 0 Discontinued hydralazine 10 mg Tablet 10 mg PO TID RF: 0 Discharge Orders: Discharge Order (Routine); Ordered 07/08/20 Ordered By: Awilda Cartagena Admission Data Admit Date/Time: 07/02/20 20:10 Attending Provider: Awilda Cartagena Admit Provider: Kingsley Holly Primary Care Provider: Prudencio Burns Other Providers: Kingsley Holly ; Fabian Gonzales ; Blake Milton ; James Muhammad ; Shar Esposito ; Vazquez Stahl. ; Brian Iyer ; Nely Joe ; Ayala Haas ; Monique Grande. ; Pablito Aguilar Other Interventions: Discharge Summary Assessment (RN) Last Done: 07/08/20 13:41
[2020-07-08] MEDS ORDERED: DOXYCYCLINE HYCLATE 100 MG CAP PO SCH (21:00)
== END 2020-07-08 14:32 | disposition home or self-care (01) | DRG 193 ==
LOC: ED 15:56 → 2E 20:10

== ENCOUNTER 2020-08-18 16:56 | Inpatient (IN) ==
[2020-08-18] MEDS ORDERED: ALBUT/IPRATROP 3MG/0.5MG NEB 3 ML VIAL NEB STA (17:32)
[2020-08-18 18:25] LABS: Basophils # (auto) 0.02 K/uL (0-0.2); Basophils % (auto) 0.1 %; Hematocrit (blood only) 33.6 % (42-52); Hemoglobin 10.3 g/dL (14.0-18.0); Immature Granulocytes # (auto) 0.04 K/uL (0.00-0.02); Immature Granulocytes % (auto) 0.2 %; Lymphocytes # (auto) 1.04 K/uL (1.2-3.4); Lymphocytes % (auto) 5.6 %; Mean Corpuscular Hemoglobin 24.9 pg (25-34); Mean Corpuscular Hgb Conc 30.7 g/dL (32-36); Mean Corpuscular Volume 81.2 fL (80-100); Mean Platelet Volume 8.8 fL (7.4-10.4); Monocytes # (auto) 0.75 K/uL (0.11-0.59); Neutrophils # (auto) 16.71 K/uL (1.4-6.5); Neutrophils % (auto) 90.1 %; Platelet Count 275 K/uL (130-400); RDW Coefficient of Variation 20.9 % (11.5-14.5); RDW Standard Deviation 63.1 fL (36.4-46.3); Red Blood Count 4.14 M/uL (4.7-6.1); White Blood Count 18.56 K/uL (4.8-10.8)
[2020-08-18 18:36] LABS: INR 1.1 (0.9-1.1); Partial Thromboplastin Ratio 1.2; Partial Thromboplastin Time 30.4 Seconds (21.0-31.0)
--- NOTE | 2020-08-18 18:38 | XRay Report ---
XR chest 1V portable CLINICAL HISTORY: Chest Pain COMPARISON STUDY: Chest radiograph July 03, 2020. Chest CT May 02, 2020. FINDINGS: There are median sternotomy wires. No pneumothorax or pleural effusion is noted. There is m ild interstitial thickening. No lobar consolidation is present. Cardiac size is normal. Mediastinal c ontours are normal. IMPRESSION: Mild interstitial thickening. This favors pulmonary edema although an infectious process could appear similar. ACT 112: Negative or not required by law. Electronically signed by: Yayo Kay M.D. 08/18/2020 6:37 PM
[2020-08-18 18:45] LABS: Alanine Aminotransferase 18 U/L (12-78); Albumin Level 3.3 gm/dl (3.4-5.0); Aspartate Aminotransferase 17 U/L (15-37); BUN Creatinine Ratio 19.5 (10-20); Bilirubin Direct 0.2 mg/dl (0-0.2); Blood Urea Nitrogen 24 mg/dl (7-18); Calcium 9.4 mg/dl (8.5-10.1); Carbon Dioxide 35 mmol/L (21-32); Chloride 100 mmol/L (98-107); Est GFR (African American) 66.3 ml/min; Est GFR (Non-African American) 57.2 ml/min; Glucose 99 mg/dl (70-99); Lipase 69 U/L (73-393); Magnesium 2.3 mg/dl (1.8-2.4); Potassium 4.1 mmol/L (3.5-5.1); Sodium 136 mmol/L (136-145)
[2020-08-18 18:48] LABS: Albumin Globulin Ratio 0.7 (0.9-2); Alkaline Phosphatase 79 U/L (45-117); Bilirubin,Total 0.5 mg/dl (0.2-1); Globulin 4.9 gm/dl (2.5-4.0); NT Pro B Type Natriuretic Pept 830 pg/ml (0-1800); Phosphorus 3.7 mg/dl (2.5-4.9); Total Protein 8.2 gm/dl (6.4-8.2); Troponin I < 0.015 ng/ml (0-0.045)
[2020-08-18] MEDS ORDERED: PIPERACILL/TAZOBAC CONSULT ACTIVE PRN (18:57)
[2020-08-18] MEDS ORDERED: PIPERACILLIN/TAZOBACTAM 4.5 GM/120 ML BAG IV ONE (18:57)
[2020-08-18 19:10] LABS: Anisocytosis Present; Dohle Bodies 1+
[2020-08-18] MEDS ORDERED: OPTIRAY 320 125ml IV ONE (19:17)
--- NOTE | 2020-08-18 19:57 | CT Scan Report ---
CT ANGIOGRAPHY OF THE CHEST, PULMONARY EMBOLUS PROTOCOL CLINICAL HISTORY: Shortness of breath. COMPARISON STUDY: Chest CT May 02, 2020. Chest radiograph performed earlier today. TECHNIQUE: Following IV administration of 119 mL of Optiray, helical axial images of the chest were o btained utilizing the pulmonary embolus protocol. Maximal intensity projections and sagittal and cor onal reformats were viewed on an independent 3D workstation. IV contrast was administered without co mplication. Automated exposure control was utilized for the study. A dose lowering technique was ut ilized adhering to the principles of ALARA. CT DOSE: 252.56 mGy.cm FINDINGS: No pulmonary emboli are identified. There is no thoracic aortic dissection. No pericardial effusion is noted. There is no pneumothorax or pleural effusion. The pleural effusions on CT of [facility] 2020 have resolved. Emphysema is present. Posterior wall thickening is noted. There are moderat e secretions within the right mainstem bronchus and right bronchus intermedius. There is no central o bstructing mass. Diffuse tree-in-bud nodules throughout the lungs are noted. Additional nodular airsp velia opacities are noted within the apicoposterior segment of the left upper lobe and the superior seg ment of the left lower lobe. Right middle lobe airspace opacity persists. This was shown on prior exa mination. This may reflect scarring. No suspicious lesions within the bony thorax are noted. Multiple suspected hepatic cysts are present. IMPRESSION: 1. No pulmonary emboli identified. 2. Diffuse tree-in-bud nodules throughout the lungs with additional nodular airspace opacities within the left lung, as described above. The findings favor an infectious process with multifocal pneumoni a. 3. Moderate secretions within the right mainstem bronchus and right bronchus intermediate. Diffuse br onchial wall thickening. 4. Emphysema. ACT 112: Negative or not required by law. Electronically signed by: Yayo Kay M.D. 08/18/2020 7:56 PM
[2020-08-18 20:07] LABS: Bilirubin Urine Negative (Negative); Blood Urine Negative (Negative); Color Urine Yellow; Glucose Urine UA Negative (Negative); Ketones Urine Negative (Negative); Leukocyte Esterase Urine Negative (Negative); Nitrite Urine Negative (Negative); Protein Urine Negative (Negative); Specific Gravity Urine 1.015 (1.000-1.030); Urobilinogen Urine Negative (Negative); pH Urine 5.5 (4.5-7.5)
[2020-08-18 20:08] LABS: Appearance Urine Clear (Clear)
[2020-08-18] MEDS ORDERED: SODIUM CHLORIDE 0.9% 500 ML IV ONE (20:38)
[2020-08-18] MEDS ORDERED: SODIUM CHLORIDE 0.9% 500 ML IV SCH (20:45)
[2020-08-19] MEDS ORDERED: SODIUM CHLORIDE 0.9% 1000ML 1,000 ML IV SCH (00:22)
[2020-08-19] MEDS ORDERED: NITROGLYCERIN SL 0.4 MG/TAB TAB SL PRN ×2 (00:22)
[2020-08-19] MEDS ORDERED: ONDANSETRON INJ 2 MG/ML 2 ML VIAL IV PRN (00:22)
[2020-08-19] MEDS ORDERED: ACETAMINOPHEN 325 MG TAB PO PRN (00:22)
--- NOTE | 2020-08-19 01:29 | Emergency Department Note ---
Impression & Plan Acute and chronic respiratory failure with hypoxia, Multifocal pneumonia, Leukocytosis ED Provider Note NAME: DAXA WRIGHT AGE: 75 SEX: M ARRIVES VIA: Walk-In INFORMANT: Patient, ED PROVIDER(S): Peewee Burgess MD CHIEF COMPLAINT: SOB PLAN: Disposition: Admit MEDICAL DECISION MAKING: The patient is a pleasant 75 y/o gentleman with a pmhx of CAD s/p CABG x1, s/p bioprosthetic AVR, LBBB, HTN, HLD, h/o of naso-oropharyngeal carcinoma s/p c hemo/radiation as well as dental resection with associated palate defect and associated risk of aspiration resulting in recurrent PNA who presents to the emergency department with worsening SOB over the past several days with increased O2 requirement to maintain O2 above 90%. He reports feverishness but denies fevers, n/v, diarrhea, urinary sx. On arrival the patient is acute on chronically ill appearing but in NAD, AFVSS. On exam he has intermittent wheezes and rhonchi and is diminished at the bases. He appears clinically dry. EKG without overt acute ischemia. CXR with nonspecific interstitial thickening. WBC 18.5K. H/H similar to prior. Platelets wnl. Chemistry without acidosis. Lactate wnl. Electrolytes and LFTs unremarkable. Troponin negative/undetectable. BNP wnl. Procalcitonin is elevated at 3.9. Covid-19 PCR negative. UA without convincing evidence of infection. CTA of the chest negative for PE but consistent with multi-focal PNA. Patient ordered for Zosyn given suspected aspiration PNA. Agrees with plan for admission. [facility] the [facility] for [facility]. Triage Nursing notes reviewed and agree them. Prior medical records reviewed Vital Signs: reviewed and remarkable for hypoxia. Differential diagnosis: Reactive airway disease, pneumonia, pneumothorax, COPD, CHF, infections, cardiac ischemia, pulmonary embolism, musculoskeletal, gastrointestinal, as well as other pathologies. ER treatment provided: See below. Diagnostics interpreted by me: ECG: NSR, 68 bpm, no ectopy, no overt ST elevation or depression. Cardiac Monitoring: An order for continuous cardiac monitoring was placed and demonstrated NSR, 68 bpm, no ectopy. Laboratory studies: See below Imaging studies: See below Consultation(s): Case was discussed with Dr. Holly [facility] hospitalist, who will evaluate the patient for admission. HPI: The patient is a pleasant 75 y/o gentleman with a pmhx of CAD s/p CABG x1, s/p bioprosthetic AVR, LBBB, HTN, HLD, h/o of naso-oropharyngeal carcinoma s/p chemo/radiation as well as dental resection with associated palate defect and associated risk of aspiration resulting in recurrent PNA who presents to the emergency department with worsening SOB over the past several days with increased O2 requirement to maintain O2 above 90%. He reports feverishness but denies fevers, n/v, diarrhea, urinary sx. ROS: See above HPI for pertinent positives & negatives. A total of 10 systems reviewed and were otherwise negative. PAST MEDICAL HISTORY:See Below PAST SURGICAL HISTORY:See Below FAMILY HISTORY:See Below SOCIAL HISTORY:See Below HOME MEDICATIONS:See Below ALLERGIES:See Below VITALS:See Below PHYSICAL EXAMINATION: GENERAL: Awake, alert, cachectic, acute on chronically ill-appearing, in no distress HENT: Normocephalic, atraumatic. Oropharynx with dry mucous membranes and otherwise unremarkable. EYES: Normal conjunctiva. Sclera non-icteric. NECK: Supple. No nuchal rigidity. FROM. No JVD. RESPIRATORY: Intermittent wheezes and rhonchi and is diminished at the bases CARDIAC: Regular rate, normal rhythm. Extremities warm and well perfused. Pulses equal. ABDOMEN: Soft, non-distended. No tenderness to palpation. No rebound or guarding. No masses. RECTAL: Deferred. MUSCULOSKELETAL: Chest examination reveals no tenderness. The back is symmetrical on inspection without obvious abnormality. There is no CVA tenderness to palpation. No joint edema. LOWER EXTREMITIES: Calves are equal size bilaterally and non-tender. No edema. No discoloration. NEURO: Normal sensorium. No sensory or motor deficits noted. SKIN: No rash or jaundice noted. 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 Milton- [facility]/ NO STENTS History of cataract surgery History of colonoscopy with polypectomy 09/25/2018. Propofol given, no issues. History of coronary artery bypass graft One vessel - [facility] [place] History of heart valve replacement Bioprosthetic aortic valve - [place] 2016 History of shoulder surgery RIGHT History of tonsillectomy History of tooth extraction History of vascular access device NO LONGER HAS PORT Status post insertion of percutaneous endoscopic gastrostomy (PEG) tube PLACED DUE TO PALATE SURGERY- THEN REMOVED 2014 Family History Father Cancer Liver Cancer Social History Smoking Status: Former smoker Tobacco Type: Cigarettes Smoking End Date: 7 years ago; Second Hand Exposure: No; Hx Alcohol Use: No Hx Substance Use: No Preferred Language: Upper Sorbian Communication Ability: Effective Civil Designer Required: No Beliefs That Will Affect Care: None marital status: / Current Living Situation: Alone Feels Safe at Home: Yes Safety Concerns: Feels Safe At This Time Assistive Devices: Glasses, Hearing Aid - Bilateral, Oxygen - Continuous and Prosthesis Assistive Devices Comment: Pt states he has a prothesis for roof of mouth. Allergies Allergies Allergy/AdvReac Type Severity Reaction Status Date / Time No Known Allergies Allergy Verified 08/18/20 18:33 Home Meds Home Medications Medication Instructions Recorded Confirmed amlodipine 5 mg PO BID 09/18/18 08/18/20 aspirin 81 mg PO QAM 09/18/18 08/18/20 atorvastatin 40 mg PO QAM 09/18/18 08/18/20 nitroglycerin 0.4 mg SUBLINGUAL UD PRN 09/18/18 08/18/20 terazosin 2 mg PO HS 09/18/18 08/18/20 Previous Rx's Medication Instructions Recorded albuterol sulfate [ProAir HFA] 2 inh INHALATION Q6H PRN #8.5 g 05/06/20 furosemide [Lasix] 40 mg PO QAM #30 tab 05/06/20 potassium chloride 20 meq PO BID #30 tab 05/06/20 Lactobacillus acidoph-L.bulgar 1 tab PO BID #30 tab 07/08/20 [Lactinex] Results & Data (ED) Vital Signs Vital Signs - 24 hr 08/18/20 17:13 08/18/20 18:10 08/18/20 18:20 Temperature 36.1 C L Temperature Source Temporal Artery Scan Pulse Rate 76 71 75 Pulse Rate from SpO2 Sensor 71 Respiratory Rate 24 20 22 Respiratory Effort / Characteristics Respiratory Depth Respiratory Pattern Blood Pressure 96/57 L Blood Pressure Mean 70 Pulse Oximetry 96 96 97 Oxygen Delivery Method Nasal Cannula Nasal Cannula Nasal Cannula Oxygen Flow Rate 8 5 5 Sepsis Recent Fever Within 48 Hours No Sepsis New/Unexplained Change in Mental Status N/A Sepsis Action Taken by Nursing No Action Required 08/18/20 18:30 08/18/20 18:40 08/18/20 19:00 Temperature Temperature Source Pulse Rate 70 70 68 Pulse Rate from SpO2 Sensor 70 70 68 Respiratory Rate 12 17 16 Respiratory Effort / Characteristics Respiratory Depth Respiratory Pattern Blood Pressure Blood Pressure Mean Pulse Oximetry 99 97 99 Oxygen Delivery Method Nasal Cannula Nasal Cannula Nasal Cannula Oxygen Flow Rate 5 5 5 Sepsis Recent Fever Within 48 Hours Sepsis New/Unexplained Change in Mental Status Sepsis Action Taken by Nursing 08/18/20 19:10 08/18/20 19:30 08/18/20 19:55 Temperature Temperature Source Pulse Rate 70 76 Pulse Rate from SpO2 Sensor 66 75 Respiratory Rate 20 17 Respiratory Effort / Characteristics Non-Labored Spontaneous Respiratory Depth Normal Respiratory Pattern Regular Blood Pressure 123/68 Blood Pressure Mean 86 Pulse Oximetry 99 95 Oxygen Delivery Method Nasal Cannula Nasal Cannula Nasal Cannula Oxygen Flow Rate 5 5 Sepsis Recent Fever Within 48 Hours Sepsis New/Unexplained Change in Mental Status Sepsis Action Taken by Nursing 08/18/20 20:00 08/18/20 20:30 08/18/20 21:00 Temperature Temperature Source Pulse Rate 67 63 63 Pulse Rate from SpO2 Sensor 66 64 63 Respiratory Rate 19 16 12 Respiratory Effort / Characteristics Respiratory Depth Respiratory Pattern Blood Pressure 117/60 102/59 L 117/64 Blood Pressure Mean 79 73 81 Pulse Oximetry 97 98 98 Oxygen Delivery Method Oxygen Flow Rate Sepsis Recent Fever Within 48 Hours Sepsis New/Unexplained Change in Mental Status Sepsis Action Taken by Nursing 08/18/20 21:30 08/18/20 22:00 Temperature Temperature Source Pulse Rate 59 L 63 Pulse Rate from SpO2 Sensor 61 63 Respiratory Rate 18 19 Respiratory Effort / Characteristics Respiratory Depth Respiratory Pattern Blood Pressure 131/66 130/64 Blood Pressure Mean 87 86 Pulse Oximetry 99 100 Oxygen Delivery Method Oxygen Flow Rate Sepsis Recent Fever Within 48 Hours Sepsis New/Unexplained Change in Mental Status Sepsis Action Taken by Nursing Laboratory Data Attestation: I reviewed the patient's lab results. Result diagrams: 08/18/20 18:10 08/18/20 18:10 Lab Results 08/18/20 08/18/20 08/18/20 Range/Units 18:10 18:10 18:10 WBC 18.56 H (4.8-10.8) K/uL RBC 4.14 L (4.7-6.1) M/uL Hgb 10.3 L (14.0-18.0) g/dL Hct 33.6 L (42-52) % MCV 81.2 (80-100) fL MCH 24.9 L (25-34) pg MCHC 30.7 L (32-36) g/dL RDW Std Deviation 63.1 H (36.4-46.3) fL RDW Coeff of Navid 20.9 H (11.5-14.5) % Plt Count 275 (130-400) K/uL MPV 8.8 (7.4-10.4) fL Immature Gran % (Auto) 0.2 % Neut % (Auto) 90.1 % Lymph % (Auto) 5.6 % [place] % (Auto) 4.0 % Eos % (Auto) 0.0 % Baso % (Auto) 0.1 % Neut # (Auto) 16.71 H (1.4-6.5) K/uL Lymph # (Auto) 1.04 L (1.2-3.4) K/uL [place] # (Auto) 0.75 H (0.11-0.59) K/uL Eos # (Auto) 0.00 (0-0.5) K/uL Baso # (Auto) 0.02 (0-0.2) K/uL Immature Gran # (Auto) 0.04 H (0.00-0.02) K/uL Dohle Bodies 1+ Anisocytosis Present PT 11.0 (9.0-12.0) Seconds INR 1.1 (0.9-1.1) APTT 30.4 (21.0-31.0) Seconds PTT Ratio 1.2 Sodium 136 (136-145) mmol/L Potassium 4.1 (3.5-5.1) mmol/L Chloride 100 (98-107) mmol/L Carbon Dioxide 35 H (21-32) mmol/L Anion Gap 1.0 L (3-11) BUN 24 H (7-18) mg/dl Creatinine 1.22 (0.6-1.4) mg/dl Est Cr Clr Drug Dosing 42.0 ml/min Est GFR ( Amer) 66.3 ml/min Est GFR (Non-Af Amer) 57.2 ml/min BUN/Creatinine Ratio 19.5 (10-20) Glucose 99 (70-99) mg/dl Lactate (0.4-2.0) mmol/L Calcium 9.4 (8.5-10.1) mg/dl Phosphorus 3.7 (2.5-4.9) mg/dl Magnesium 2.3 (1.8-2.4) mg/dl Total Bilirubin 0.5 (0.2-1) mg/dl Direct Bilirubin 0.2 (0-0.2) mg/dl AST 17 (15-37) U/L ALT 18 (12-78) U/L Alkaline Phosphatase 79 (45-117) U/L Troponin I < 0.015 (0-0.045) ng/ml NT-Pro-B Natriuret Pep 830 (0-1800) pg/ml Total Protein 8.2 (6.4-8.2) gm/dl Albumin 3.3 L (3.4-5.0) gm/dl Globulin 4.9 H (2.5-4.0) gm/dl Albumin/Globulin Ratio 0.7 L (0.9-2) Lipase 69 L (73-393) U/L Procalcitonin (0-0.5) ng/ml Urine Color Urine Appearance (Clear) Urine pH (4.5-7.5) Ur Specific Wayne (1.000-1.030) Urine Protein (Negative) Urine Glucose (UA) (Negative) Urine Ketones (Negative) Urine Blood (Negative) Urine Nitrite (Negative) Urine Bilirubin (Negative) Urine Urobilinogen (Negative) Ur Leukocyte Esterase (Negative) COVID-19 Eval Order SARS-CoV-2 (PCR) (Negative) 08/18/20 08/18/20 08/18/20 Range/Units 18:10 18:10 18:10 WBC (4.8-10.8) K/uL RBC (4.7-6.1) M/uL Hgb (14.0-18.0) g/dL Hct (42-52) % MCV (80-100) fL MCH (25-34) pg MCHC (32-36) g/dL RDW Std Deviation (36.4-46.3) fL RDW Coeff of Navid (11.5-14.5) % Plt Count (130-400) K/uL MPV (7.4-10.4) fL Immature Gran % (Auto) % Neut % (Auto) % Lymph % (Auto) % [place] % (Auto) % Eos % (Auto) % Baso % (Auto) % Neut # (Auto) (1.4-6.5) K/uL Lymph # (Auto) (1.2-3.4) K/uL [place] # (Auto) (0.11-0.59) K/uL Eos # (Auto) (0-0.5) K/uL Baso # (Auto) (0-0.2) K/uL Immature Gran # (Auto) (0.00-0.02) K/uL Dohle Bodies Anisocytosis PT (9.0-12.0) Seconds INR (0.9-1.1) APTT (21.0-31.0) Seconds PTT Ratio Sodium (136-145) mmol/L Potassium (3.5-5.1) mmol/L Chloride (98-107) mmol/L Carbon Dioxide (21-32) mmol/L Anion Gap (3-11) BUN (7-18) mg/dl Creatinine (0.6-1.4) mg/dl Est Cr Clr Drug Dosing ml/min Est GFR ( Amer) ml/min Est GFR (Non-Af Amer) ml/min BUN/Creatinine Ratio (10-20) Glucose (70-99) mg/dl Lactate 1.6 (0.4-2.0) mmol/L Calcium (8.5-10.1) mg/dl Phosphorus (2.5-4.9) mg/dl Magnesium (1.8-2.4) mg/dl Total Bilirubin (0.2-1) mg/dl Direct Bilirubin (0-0.2) mg/dl AST (15-37) U/L ALT (12-78) U/L Alkaline Phosphatase (45-117) U/L Troponin I (0-0.045) ng/ml NT-Pro-B Natriuret Pep (0-1800) pg/ml Total Protein (6.4-8.2) gm/dl Albumin (3.4-5.0) gm/dl Globulin (2.5-4.0) gm/dl Albumin/Globulin Ratio (0.9-2) Lipase (73-393) U/L Procalcitonin 3.94 H (0-0.5) ng/ml Urine Color Urine Appearance (Clear) Urine pH (4.5-7.5) Ur Specific Wayne (1.000-1.030) Urine Protein (Negative) Urine Glucose (UA) (Negative) Urine Ketones (Negative) Urine Blood (Negative) Urine Nitrite (Negative) Urine Bilirubin (Negative) Urine Urobilinogen (Negative) Ur Leukocyte Esterase (Negative) COVID-19 Eval Order Covid19 at [facility] SARS-CoV-2 (PCR) (Negative) 08/18/20 08/18/20 Range/Units 18:10 19:48 WBC (4.8-10.8) K/uL RBC (4.7-6.1) M/uL Hgb (14.0-18.0) g/dL Hct (42-52) % MCV (80-100) fL MCH (25-34) pg MCHC (32-36) g/dL RDW Std Deviation (36.4-46.3) fL RDW Coeff of Navid (11.5-14.5) % Plt Count (130-400) K/uL MPV (7.4-10.4) fL Immature Gran % (Auto) % Neut % (Auto) % Lymph % (Auto) % [place] % (Auto) % Eos % (Auto) % Baso % (Auto) % Neut # (Auto) (1.4-6.5) K/uL Lymph # (Auto) (1.2-3.4) K/uL [place] # (Auto) (0.11-0.59) K/uL Eos # (Auto) (0-0.5) K/uL Baso # (Auto) (0-0.2) K/uL Immature Gran # (Auto) (0.00-0.02) K/uL Dohle Bodies Anisocytosis PT (9.0-12.0) Seconds INR (0.9-1.1) APTT (21.0-31.0) Seconds PTT Ratio Sodium (136-145) mmol/L Potassium (3.5-5.1) mmol/L Chloride (98-107) mmol/L Carbon Dioxide (21-32) mmol/L Anion Gap (3-11) BUN (7-18) mg/dl Creatinine (0.6-1.4) mg/dl Est Cr Clr Drug Dosing ml/min Est GFR ( Amer) ml/min Est GFR (Non-Af Amer) ml/min BUN/Creatinine Ratio (10-20) Glucose (70-99) mg/dl Lactate (0.4-2.0) mmol/L Calcium (8.5-10.1) mg/dl Phosphorus (2.5-4.9) mg/dl Magnesium (1.8-2.4) mg/dl Total Bilirubin (0.2-1) mg/dl Direct Bilirubin (0-0.2) mg/dl AST (15-37) U/L ALT (12-78) U/L Alkaline Phosphatase (45-117) U/L Troponin I (0-0.045) ng/ml NT-Pro-B Natriuret Pep (0-1800) pg/ml Total Protein (6.4-8.2) gm/dl Albumin (3.4-5.0) gm/dl Globulin (2.5-4.0) gm/dl Albumin/Globulin Ratio (0.9-2) Lipase (73-393) U/L Procalcitonin (0-0.5) ng/ml Urine Color Yellow Urine Appearance Clear (Clear) Urine pH 5.5 (4.5-7.5) Ur Specific Wayne 1.015 (1.000-1.030) Urine Protein Negative (Negative) Urine Glucose (UA) Negative (Negative) Urine Ketones Negative (Negative) Urine Blood Negative (Negative) Urine Nitrite Negative (Negative) Urine Bilirubin Negative (Negative) Urine Urobilinogen Negative (Negative) Ur Leukocyte Esterase Negative (Negative) COVID-19 Eval Order SARS-CoV-2 (PCR) NEGATIVE (Negative) Administered Medications Amlodipine Besylate (Amlodipine Besylate 5 Mg Tab) 5 mg PO BID ROYA Stop: 09/18/20 00:21 Last Admin: 08/19/20 02:02 Dose: 5 mg Documented by: [id number] Sodium Chloride (Nss 1000ml) 1,000 mls @ 80 mls/hr IV .[id number] ROYA Stop: 08/19/20 12:51 Last Admin: 08/19/20 02:31 Dose: 80 mls/hr Documented by: [id number] Piperacillin Sod/Tazobactam (Sod 3.375 gm/ Dextrose) 115 mls @ 28.75 mls/hr IV Q8H [facility]; Protocol Stop: 08/26/20 01:59 Last Admin: 08/19/20 02:31 Dose: 28.8 mls/hr Documented by: [id number] Lactobacillus Acidoph/Casei/Rhamnos (Advanced Probiotic 1250 Mg Capsule) 2 cap PO BID ROYA Stop: 09/18/20 00:21 Last Admin: 08/19/20 02:02 Dose: 2 cap Documented by: [id number] Potassium Chloride (Potassium Chloride Crtab 20 Meq Tabcr) 20 meq PO BID ROYA Stop: 09/18/20 00:21 Last Admin: 08/19/20 02:02 Dose: 20 meq Documented by: [id number] Terazosin HCl (Terazosin Hcl 1 Mg Cap) 2 mg PO HS ROYA Stop: 09/18/20 00:21 Last Admin: 08/19/20 02:03 Dose: 2 mg Documented by: [id number] Discontinued Medications Albuterol (Albut/Ipratrop 3mg/0.5mg Neb 3 Ml Vial) 3 ml NEB NOW STA Stop: 08/18/20 17:33 Last Admin: 08/18/20 23:05 Dose: Not Given Documented by: [id number] Piperacillin Sod/Tazobactam Sod (Zosyn) 4.5 gm in 120 mls @ 240 mls/hr IV NOW ONE Stop: 08/18/20 19:26 Last Infusion: 08/18/20 20:30 Dose: 0 mls/hr Documented by: [id number] Admin: 08/18/20 19:44 Dose: 240 mls/hr Documented by: [id number] Sodium Chloride (Nss) 500 mls @ 999 mls/hr IV .Q31M ONE Stop: 08/18/20 21:08 Last Infusion: 08/18/20 21:33 Dose: 0 mls/hr Documented by: [id number] Admin: 08/18/20 20:45 Dose: 999 mls/hr Documented by: [id number] Sodium Chloride (Nss) 500 mls @ 125 mls/hr IV .Q4H ROYA Stop: 09/17/20 20:44 Last Infusion: 08/19/20 02:15 Dose: 0 mls/hr Documented by: [id number] Admin: 08/18/20 21:40 Dose: 125 mls/hr Documented by: [id number] Sodium Chloride (Nss) 500 mls @ 500 mls/hr IV .Q1H ROYA Stop: 08/19/20 05:14 Last Admin: 08/19/20 04:43 Dose: 500 mls/hr Documented by: [id number] Ioversol (Optiray 320 125ml) 119 ml IV ONCE ONE Stop: 08/18/20 19:18 Last Admin: 08/18/20 19:17 Dose: 119 ml Documented by: [id number] Imaging Data Radiologist's Impression: Chest X-Ray 08/18/20 17:30 XR chest 1V portable CLINICAL HISTORY: Chest Pain COMPARISON STUDY: Chest radiograph July 03, 2020. Chest CT May 02, 2020. FINDINGS: There are median sternotomy wires. No pneumothorax or pleural effusion is noted. There is mild interstitial thickening. No lobar consolidation is present. Cardiac size is normal. Mediastinal contours are normal. IMPRESSION: Mild interstitial thickening. This favors pulmonary edema although an infectious process could appear similar. ACT 112: Negative or not required by law. Electronically signed by: Yayo Kay M.D. 08/18/2020 6:37 PM Chest CTA 08/18/20 18:57 CT ANGIOGRAPHY OF THE CHEST, PULMONARY EMBOLUS PROTOCOL CLINICAL HISTORY: Shortness of breath. COMPARISON STUDY: Chest CT May 02, 2020. Chest radiograph performed earlier today. TECHNIQUE: Following IV administration of 119 mL of Optiray, helical axial images of the chest were obtained utilizing the pulmonary embolus protocol. Maximal intensity projections and sagittal and coronal reformats were viewed on an independent 3D workstation. IV contrast was administered without complication. Automated exposure control was utilized for the study. A dose lowering technique was utilized adhering to the principles of ALARA. CT DOSE: 252.56 mGy.cm FINDINGS: No pulmonary emboli are identified. There is no thoracic aortic dissection. No pericardial effusion is noted. There is no pneumothorax or pleural effusion. The pleural effusions on CT of May 02, 2020 have resolved. Emphysema is present. Posterior wall thickening is noted. There are moderate se cretions within the right mainstem bronchus and right bronchus intermedius. There is no central obstructing mass. Diffuse tree-in-bud nodules throughout the lungs are noted. Additional nodular airspace opacities are noted within the apicoposterior segment of the left upper lobe and the superior segment of the left lower lobe. Right middle lobe airspace opacity persists. This was shown on prior examination. This may reflect scarring. No suspicious lesions within the bony thorax are noted. Multiple suspected hepatic cysts are present. IMPRESSION: 1. No pulmonary emboli identified. 2. Diffuse tree-in-bud nodules throughout the lungs with additional nodular airspace opacities within the left lung, as described above. The findings favor an infectious process with multifocal pneumonia. 3. Moderate secretions within the right mainstem bronchus and right bronchus intermediate. Diffuse bronchial wall thickening. 4. Emphysema. ACT 112: Negative or not required by law. Electronically signed by: Yayo Kay M.D. 08/18/2020 7:56 PM Discharge Plan Visit Data Chief Complaint: Shortness of Breath/Dyspnea Stated Complaint: shortness of breath ED Provider: Peewee Burgess Discharge Problem: Acute and chronic respiratory failure with hypoxia, Multifocal pneumonia, Leukocytosis Patient Disposition: Admitted As Inpatient Discharge Instructions Interventions: ED Discharge Assessment Last Done: 08/18/20 23:25 Discharge Problem: Leukocytosis Qualifiers: Leukocytosis type: unspecified Qualified Code(s): D72.829 - Elevated white blood cell count, unspecified
--- NOTE | 2020-08-19 01:35 | History and Physical Report ---
DATE OF ADMISSION: 08/18/2020. CHIEF COMPLAINT: Shortness of breath, hypoxia. HISTORY OF PRESENT ILLNESS: This is a 75-year-old male with past medical history significant for CAD, status post CABG x1, aortic stenosis, status post bioprosthetic aortic valve replacement, intermittent left bundle-branch block, hypertension, hyperlipidemia, history of carcinoma of the oropharynx, palate and nasopharynx, status post cisplatin and radiation treatment and dental extraction with resultant palate defect, but clear of disease since 2013. Comes in with 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 The patient was here in April with pneumonia and first week of June with CHF. The patient was here in June 2020 with aspiration pneumonitis and was treated with Zosyn and doxycycline and initially was requiring 6 liters oxygen, discharged on 3 liters oxygen and he was seen by speech s/p video swallow evaluation and showed marked silent aspiration and speech recommended a PEG tube placement which patient declined, advised for chin tuck measures and oral care q. 4 hours and also before meals and before going to bed. Speech also recommend ENT consultation. The patient has followed with ENT and ENT examined him and thought there is no evidence of tumor recurrence and he had a large palate defect and there was normal true vocal cord appearance and movement and there was no pooling of secretions in the piriform sinuses and they thought that his obturator needs to be evaluated and possibly replaced and a message was sent to Dr. Vazquez Flaherty who fashioned his previous obturator and also placed an oral surgery outpatient referral and the patient states that the appointment with Dr. Flaherty is at the end of this month.But since last night he is getting more short of breath and he is on oxygen concentrator and he has to go all the way up on his oxygen concentrator and still it was not coming up, it was only 88%. He lives alone, ambulates without support. His son comes and checks on him every day and his neighbor is a nurse who works at [facility] and because his oxygen was not coming up, he was advised to come to the hospital. He has a cough, but is not bringing up any phlegm. It is difficult to bring up phlegm for him. Denies any fevers, was feeling chills last night. No nausea, no vomiting, no abdominal pain, no diarrhea or constipation. Normal bowel and bladder movements. No swelling in the legs. No headache, no blurred visions, no earache, no runny nose, no sore throat, no nausea. Currently on 5 liters, he is saturating in high 90s in the ER and a CTA of chest was done, which showed no PE, but is showing multifocal pneumonia. Because of his history of possible aspiration pneumonitis, the patient was given Zosyn and also his white count was elevated at 18,000. SARS-CoV-2 PCR negative. He has had COVID shot in the past. ALLERGIES: No known drug allergies. PAST MEDICAL HISTORY: As mentioned above. PAST SURGICAL HISTORY: Alveoloplasty, colonoscopies, CABG x1, EGD, right shoulder reconstruction surgery, tonsillectomy, cataract, bioprosthetic aortic valve replacement, surgical removal of erupted tooth and bone. MEDICATIONS: The patient is on albuterol 2 inhalations q. 4-6 hours p.r.n., amlodipine 5 mg p.o. b.i.d., aspirin 81 mg p.o. a.m., atorvastatin 40 mg p.o. p.m., Lasix 40 mg p.o. daily a.m., lactobacillus 1 tablet p.o. b.i.d., nitroglycerin 0.4 mg sublingual p.r.n., potassium chloride 20 mEq p.o. b.i.d., terazosin 2 mg p.o. at bedtime. FAMILY HISTORY: Significant for mother has arthritis, father has liver cancer. SOCIAL HISTORY: . Former smoker, smoked 1 pack a day for 50 years, quit smoking in 2013. No alcohol use. No drug use. REVIEW OF SYSTEMS: As per HPI. Rest of the review of systems negative. PHYSICAL EXAMINATION: GENERAL: The patient is frail, not in acute distress. VITAL SIGNS: Temperature 36.1, pulse 63, respiratory rate 19, blood pressure 130/64, oxygen currently 99% on 5 liters. HEENT: Pupils equal, round, and reactive to light. Oral mucosa moist. NECK: No JVD, no neck masses. CARDIOVASCULAR: S1 and S2 heard. Regular rate and rhythm. No murmur, no gallop. RESPIRATORY SYSTEM: Normal AP diameter. No accessory muscle use. No wheezing, no crackles. ABDOMEN: Soft, bowel sounds present, nontender, no distention. CENTRAL NERVOUS SYSTEM: Cranial nerves II-XII grossly intact, nonfocal. EXTREMITIES: No edema, no erythema. LABORATORY DATA: WBC 18.5, hemoglobin 10.3, hematocrit 33.6, platelets 275. PT 11, INR 1.1, APTT 30.4. Sodium 136, potassium 4.1, chloride 100, bicarbonate 25, BUN 24, creatinine 1.2, serum glucose 99, lactate 1.6, calcium 9.4, phosphorus 3.7, magnesium 2.3, total bilirubin 0.5, direct bilirubin 0.2, AST 17, ALT 18, alkaline phosphatase 79. Troponin I less than 0.015. Lipase 69. Procalcitonin 3.94. Urinalysis negative. SARS-CoV-2 PCR negative. IMAGING DATA: Chest x-ray, mild interstitial thickening, this favors pulmonary edema, although an infectious process could appear similar. Chest CTA, no PE, diffuse tree bud nodules throughout the lungs with additional nodular airspace opacities within the left lung as described above, shows infectious process with multifocal pneumonia. Moderate secretion in the right mainstem bronchus and right bronchus intermediate.diffuse bronchial wall thickening. ASSESSMENT AND PLAN: This is a 75-year-old male who presents with recurrent aspiration pneumonitis. 1. Recurrent aspiration pneumonitis and acute hypoxic respiratory failure secondary to aspiration pneumonitis: The patient was discharged on 2-3 liters oxygen at home last admission, currently requiring 5 liters. CTA chest is showing multifocal pneumonia and also secretions in the right main bronchus, possibly from aspiration. ER started on IV Zosyn, which will continue.May consider pulmonary consult. 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 Possibly obturator defect to [facility] care of and the patient also has appointment with Dr. Flaherty, who fashioned his previous obturator, at end of this month. The patient says he eats oatmeal in the morning and in the evening he blends everything into a paste and eats and also takes his medication with food. Will continue speech recommendation of oral care q. 4 hours and before feeding and also before bed, to be placed on pureed diet, to take medicines along with pudding or applesauce, chin tuck measures while eating. The patient declined PEG tube last admission. Will follow response and closely monitor in the med rec. 2. History of chronic diastolic congestive heart failure with history of aortic valve replacement with prosthetic valve: Currently getting gentle fluids and monitor for any volume overload. Continue his home Lasix. 3. Hypertension: Continue his home amlodipine, terazosin. Hydralazine was stopped last admission. 4. History of coronary artery disease status post coronary artery bypass graft: Continue his aspirin and statin. 5. Hyperlipidemia: On statin. 6. History of aortic valve stenosis: Status post AVR, prosthetic aortic valve replacement. 7. Deep venous thrombosis prophylaxis: We will place on heparin subcutaneous. DISPOSITION: Closely monitor in the med rec. Level 1 full code as per my discussion with the patient and son who is the power of civil rights attorney. PT/OT prior to discharge. Social service to help with discharge planning. Job ID: [id number] [facility]ALS[facility]
[2020-08-19] MEDS ORDERED: ALBUTEROL HFA 8 GM INHALER INH PRN (01:37)
[2020-08-19] MEDS: POTASSIUM CHLORIDE CRTAB 20 MEQ TABCR PO SCH ×3 (02:02→21:30)
[2020-08-19] MEDS: amLODIPine BESYLATE 5 MG TAB PO SCH ×3 (02:02→20:41)
[2020-08-19] MEDS: ADVANCED PROBIOTIC 1250 MG CAPSULE PO SCH ×3 (02:02→21:29)
[2020-08-19] MEDS: TERAZOSIN HCL 1 MG CAP PO SCH ×2 (02:03→21:31)
[2020-08-19] MEDS: PIPERACILLIN/TAZOBACTAM 3.375 GM in DEXTROSE 5% 100 ML IV SCH ×3 (02:31→19:36)
[2020-08-19] MEDS ORDERED: SODIUM CHLORIDE 0.9% 500 ML IV SCH (04:15)
[2020-08-19 05:58] LABS: Basophils # (auto) 0.01 K/uL (0-0.2); Basophils % (auto) 0.1 %; Eosinophils # (auto) 0.06 K/uL (0-0.5); Eosinophils % (auto) 0.6 %; Hematocrit (blood only) 30.2 % (42-52); Hemoglobin 9.5 g/dL (14.0-18.0); Immature Granulocytes # (auto) 0.02 K/uL (0.00-0.02); Immature Granulocytes % (auto) 0.2 %; Lymphocytes # (auto) 0.55 K/uL (1.2-3.4); Lymphocytes % (auto) 5.4 %; Mean Corpuscular Hemoglobin 25.2 pg (25-34); Mean Corpuscular Hgb Conc 31.5 g/dL (32-36); Mean Corpuscular Volume 80.1 fL (80-100); Mean Platelet Volume 8.3 fL (7.4-10.4); Monocytes # (auto) 0.88 K/uL (0.11-0.59); Monocytes % (auto) 8.6 %; Neutrophils # (auto) 8.72 K/uL (1.4-6.5); Neutrophils % (auto) 85.1 %; Platelet Count 202 K/uL (130-400); RDW Coefficient of Variation 20.8 % (11.5-14.5); RDW Standard Deviation 61.5 fL (36.4-46.3); Red Blood Count 3.77 M/uL (4.7-6.1); White Blood Count 10.24 K/uL (4.8-10.8)
[2020-08-19 06:34] LABS: Anisocytosis Present; Echinocytes 1+; Ovalocytes 1+
[2020-08-19 06:38] LABS: BUN Creatinine Ratio 20.2 (10-20); Calcium 8.8 mg/dl (8.5-10.1); Creatinine Clr Calc Pharmacy 57.6 ml/min; Est GFR (African American) 97.2 ml/min; Est GFR (Non-African American) 83.8 ml/min; Magnesium 2.3 mg/dl (1.8-2.4); Potassium 3.7 mmol/L (3.5-5.1)
[2020-08-19] MEDS: ATORVASTATIN 40 MG TAB PO SCH (08:24)
[2020-08-19] MEDS: ASPIRIN 81 MG ECTAB PO SCH (08:24)
[2020-08-19] MEDS: HEPARIN SOD 5,000 UNIT/0.5 ML VIAL SQ SCH ×2 (09:20→21:28)
[2020-08-19] MEDS: FUROSEMIDE 40 MG TAB PO SCH (10:29)
--- NOTE | 2020-08-19 15:41 | Hospitalist Progress Note ---
Date of Service August 19, 2020 Assessment & Plan (1) Acute and chronic respiratory failure with hypoxia: Secondary to aspiration pneumonitis and may be complicated by history of congestive heart failure with aortic valve replacement in the past CTA did not show any pulmonary embolism Has been feeling much better since admission (2) Multifocal pneumonia: Has history of aspiration secondary to bilateral deformity with aspiration pneumonia in the past CTA did show multifocal pneumonia likely secondary to aspiration Has been on intravenous Zosyn Clinically better with decreasing white count and no fever and no chills Wants to go home sooner than later (3) History of nasopharyngeal cancer: History of nasopharyngeal cancer status post surgery, radiation and cisplatin therapy No recurrence of cancer as per ENT specialist Recently saw ENT surgeon as an outpatient and will have follow-up appointment for some reconstruction (4) Palate abnormality: Significant problem with swallowing and aspiration Speech evaluation and video swallow were done during his last admission PEG tube placement was recommended but the patient refused He wanted to follow instruction as per speech therapy and continue oral food (5) History of coronary artery bypass graft: No acute issue (6) History of heart valve replacement: No acute issue (7) CHF (congestive heart failure): Seems to be compensated DVT prophylaxis Subcu heparin CODE STATUS Full Admission and Anticipated Discharge Date Admission Date: August 18, 2020 Subjective 08/19/2020 The patient was seen and examined in medical telemetry unit He has significant medical problems as mentioned in H&P and also history of oropharyngeal cancer status post palate and nasopharynx surgery, radiation and cisplatin therapy has been having problem with aspiration for a while. Recently he was in the hospital with aspiration episode and he underwent speech evaluation and video swallow studies He was also seen by medical center representative for his significant cardiac problem He did not want to go for PEG tube placement and wanted to continue with oral food with extreme precaution and as directed by speech therapist He is back with another episode of possible aspiration with pneumonia Has been getting better since admission and wants to go home as soon as possible Review of Systems Review of Systems: All systems reviewed and are unremarkable except as noted below Respiratory: + cough, + chest congestion and + dyspnea Physical Exam Physical Exam: Lying in bed with minimal shortness of breath and cough Constitutional: + ill appearing and + thin Eyes: PERRL, conjunctivae normal, anicteric sclerae ENMT: external ear and nose normal, oropharynx normal Neck: trachea midline, no thyromegaly Respiratory: + respiratory distress (Minimal respiratory distress) Auscultation: + diminished lung sounds, + crackles (Mainly at the bases) and + wheezes Cardiovascular: Rate/Rhythm: regular rate and regular rhythm Heart Sounds: + murmur (2/6 ESM over precordium) Gastrointestinal (Abdomen): Inspection/Auscultation: normal bowel sounds; abdomen not distended Percussion/Palpation: abdomen soft; abdomen nontender Musculoskeletal: No acute arthritis in any joint Neurologic: Alert, awake and oriented x3 Results & Data Results & Data ([facility]) Vital Signs (Past 12 Hours) Vital Signs Temp Pulse Pulse Resp BP Pulse Ox 08/19/20 15:23 36.6 C 60 16 93/54 L 97 08/19/20 15:20 36.4 C L 60 16 93/54 L 97 08/19/20 15:00 58 L 08/19/20 11:50 36.6 C 60 16 100/53 L 96 08/19/20 08:21 60 97/61 L 08/19/20 07:34 36.3 C L 58 L 16 110/64 92 08/19/20 07:00 61 08/19/20 04:00 36.6 C 64 20 91/50 L 99 Laboratory Results Short CBC 08/18/20 08/19/20 Range/Units 18:10 05:41 WBC 18.56 H 10.24 (4.8-10.8) K/uL Hgb 10.3 L 9.5 L (14.0-18.0) g/dL Hct 33.6 L 30.2 L (42-52) % Plt Count 275 202 (130-400) K/uL BMP 08/18/20 08/19/20 18:10 05:41 Sodium 136 137 Potassium 4.1 3.7 Chloride 100 103 Carbon Dioxide 35 H 35 H BUN 24 H 17 Creatinine 1.22 0.87 D Glucose 99 69 L Calcium 9.4 8.8 Cardiac Enzymes 08/18/20 Range/Units 18:10 Troponin I < 0.015 (0-0.045) ng/ml Liver Function 08/18/20 Range/Units 18:10 Total Bilirubin 0.5 (0.2-1) mg/dl Direct Bilirubin 0.2 (0-0.2) mg/dl AST 17 (15-37) U/L ALT 18 (12-78) U/L Alkaline Phosphatase 79 (45-117) U/L Albumin 3.3 L (3.4-5.0) gm/dl Urine 08/18/20 Range/Units 19:48 Urine Color Yellow Urine Appearance Clear (Clear) Urine pH 5.5 (4.5-7.5) Ur Specific [place] 1.015 (1.000-1.030) Urine Protein Negative (Negative) Urine Glucose (UA) Negative (Negative) Medications Administered Current Inpatient Medications Acetaminophen (Acetaminophen 325 Mg Tab) 650 mg PO Q4H PRN PRN Reason: Pain or Fever Stop: 09/18/20 00:21 Albuterol (Albuterol Hfa 8 Gm Inhaler) 2 puffs INH Q6H PRN PRN Reason: shortness of breath or wheezin Stop: 09/18/20 01:36 Amlodipine Besylate (Amlodipine Besylate 5 Mg Tab) 5 mg PO BID [facility] Stop: 09/18/20 00:21 Last Admin: 08/19/20 08:24 Dose: Not Given Documented by: Aspirin (Aspirin 81 Mg Ectab) [facility] [place] Stop: 09/18/20 08:59 Last Admin: 08/19/20 08:24 Dose: 81 mg Documented by: Atorvastatin Calcium (Atorvastatin 40 Mg Tab) [facility] [place] Stop: 09/18/20 08:59 Last Admin: 08/19/20 08:24 Dose: 40 mg Documented by: Furosemide (Furosemide 40 Mg Tab) [facility] [place] Stop: 09/18/20 08:59 Last Admin: 08/19/20 10:29 Dose: Not Given Documented by: Heparin Sodium (Porcine) (Heparin Sod 5,000 Unit/0.5 Ml Vial) 5,000 units SQ Q12 [facility] Stop: 09/18/20 08:59 Last Admin: 08/19/20 09:20 Dose: 5,000 units Documented by: Piperacillin Sod/Tazobactam (Sod 3.375 gm/ Dextrose) 115 mls @ 28.75 mls/hr IV Q8H [facility]; Protocol Stop: 08/26/20 01:59 Last Infusion: 08/19/20 13:28 Dose: Infused Documented by: Lactobacillus Acidoph/Casei/Rhamnos (Advanced Probiotic 1250 Mg Capsule) 2 cap PO BID [facility] Stop: 09/18/20 00:21 Last Admin: 08/19/20 08:25 Dose: 2 cap Documented by: Miscellaneous Information (Piperacill/Tazobac Consult Active) 1 ea N/A UD PRN PRN Reason: Consult Stop: 09/17/20 18:56 Nitroglycerin (Nitroglycerin Sl 0.4 Mg/Tab Tab) 0.4 mg SL UD PRN PRN Reason: Chest Pain Stop: 09/18/20 00:21 Ondansetron HCl (Ondansetron Inj 2 Mg/Ml 2 Ml Vial) 4 mg IV Q6H PRN PRN Reason: Nausea Stop: 09/18/20 00:21 Potassium Chloride (Potassium Chloride Crtab 20 Meq Tabcr) 20 meq PO BID [facility] Stop: 09/18/20 00:21 Last Admin: 08/19/20 08:25 Dose: 20 meq Documented by: Terazosin HCl (Terazosin Hcl 1 Mg Cap) 2 mg PO HS [facility] Stop: 09/18/20 00:21 Last Admin: 08/19/20 02:03 Dose: 2 mg Documented by: (1) CHF (congestive heart failure) Heart failure chronicity: chronic Heart failure type: unspecified Qualified Code(s): I50.9 - Heart failure, unspecified
--- NOTE | 2020-08-19 18:23 | Electrocardiogram Report ---
Test Reason : Blood Pressure : / mmHG Vent. Rate : 068 BPM Atrial Rate : 068 BPM P-R Int : 166 ms QRS Dur : 084 ms QT Int : 402 ms P-R-T Axes : 063 062 052 degrees QTc Int : 427 ms Normal sinus rhythm Normal ECG When compared with ECG of 02-JUL-2020 16:39, No significant change was found Confirmed by Figueroa Correa ([id number]) on 08/19/2020 6:23:21 PM Referred By: Prudencio Burns Confirmed By:Davonte Correa
[2020-08-20] MEDS: PIPERACILLIN/TAZOBACTAM 3.375 GM in DEXTROSE 5% 100 ML IV SCH ×2 (01:14→11:06)
[2020-08-20 07:13] LABS: Basophils # (auto) 0.01 K/uL (0-0.2); Basophils % (auto) 0.1 %; Eosinophils # (auto) 0.16 K/uL (0-0.5); Eosinophils % (auto) 2.1 %; Hemoglobin 9.6 g/dL (14.0-18.0); Immature Granulocytes # (auto) 0.02 K/uL (0.00-0.02); Immature Granulocytes % (auto) 0.3 %; Lymphocytes # (auto) 0.61 K/uL (1.2-3.4); Mean Corpuscular Hemoglobin 25.2 pg (25-34); Mean Corpuscular Volume 81.4 fL (80-100); Mean Platelet Volume 8.6 fL (7.4-10.4); Monocytes % (auto) 9.2 %; Neutrophils # (auto) 6.12 K/uL (1.4-6.5); Neutrophils % (auto) 80.3 %; Platelet Count 241 K/uL (130-400); RDW Coefficient of Variation 20.3 % (11.5-14.5); RDW Standard Deviation 61.2 fL (36.4-46.3); Red Blood Count 3.81 M/uL (4.7-6.1); White Blood Count 7.62 K/uL (4.8-10.8)
[2020-08-20 07:37] LABS: Anisocytosis Present; Poikilocytosis Present
[2020-08-20 07:45] LABS: BUN Creatinine Ratio 17.6 (10-20); Calcium 8.3 mg/dl (8.5-10.1); Creatinine Clr Calc Pharmacy 60.4 ml/min; Est GFR (African American) 98.1 ml/min; Est GFR (Non-African American) 84.6 ml/min; Magnesium 2.1 mg/dl (1.8-2.4); Potassium 3.8 mmol/L (3.5-5.1)
[2020-08-20 07:47] LABS: Phosphorus 2.8 mg/dl (2.5-4.9)
[2020-08-20] MEDS: POTASSIUM CHLORIDE CRTAB 20 MEQ TABCR PO SCH (09:30)
[2020-08-20] MEDS: HEPARIN SOD 5,000 UNIT/0.5 ML VIAL SQ SCH (09:30)
[2020-08-20] MEDS: ADVANCED PROBIOTIC 1250 MG CAPSULE PO SCH (09:30)
[2020-08-20] MEDS: FUROSEMIDE 40 MG TAB PO SCH (09:31)
[2020-08-20] MEDS: ATORVASTATIN 40 MG TAB PO SCH (09:31)
[2020-08-20] MEDS: amLODIPine BESYLATE 5 MG TAB PO SCH (09:32)
[2020-08-20] MEDS: ASPIRIN 81 MG ECTAB PO SCH (09:32)
--- NOTE | 2020-08-20 15:35 | Discharge Summary ---
Date of Service August 20, 2020 Admission HPI Per Admitting Provider 75-year-old male with past medical history significant for CAD, status post CABG x1, aortic stenosis, status post bioprosthetic aortic valve replacement, intermittent left bundle-branch block, hypertension, hyperlipidemia, history of carcinoma of the oropharynx, palate and nasopharynx, status post cisplatin and radiation treatment and dental extraction with resultant palate defect, but clear of disease since 2013. Comes in with 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 The patient was here in April with pneumonia and first week of June with CHF. The patient was here in June 2020 with aspiration pneumonitis and was treated with Zosyn and doxycycline and initially was requiring 6 liters oxygen, discharged on 3 liters oxygen and he was seen by speech s/p video swallow evaluation and showed marked silent aspiration and speech recommended a PEG tube placement which patient declined, advised for chin tuck measures and oral care q. 4 hours and also before meals and before going to bed. Speech also recommend ENT consultation. The patient has followed with ENT and ENT examined him and thought there is no evidence of tumor recurrence and he had a large palate defect and there was normal true vocal cord appearance and movement and there was no pooling of secretions in the piriform sinuses and they thought that his obturator needs to be evaluated and possibly replaced and a message was sent to Dr. Vazquez Flaherty who fashioned his previous obturator and also placed an oral surgery outpatient referral and the patient states that the appointment with Dr. Flaherty is at the end of this month.But since last night he is getting more short of breath and he is on oxygen concentrator and he has to go all the way up on his oxygen concentrator and still it was not coming up, it was only 88%. He lives alone, ambulates without support. His son comes and checks on him every day and his neighbor is a nurse who works at [facility] [employer] and because his oxygen was not coming up, he was advised to come to the hospital. He has a cough, but is not bringing up any phlegm. It is difficult to bring up phlegm for him. Denies any fevers, was feeling chills last night. No nausea, no vomiting, no abdominal pain, no diarrhea or constipation. Normal bowel and bladder movements. No swelling in the legs. No headache, no blurred visions, no earache, no runny nose, no sore throat, no nausea. Currently on 5 liters, he is saturating in high 90s in the ER and a CTA of chest was done, which showed no PE, but is showing multifocal pneumonia. Because of his history of possible aspiration pneumonitis, the patient was given Zosyn and also his white count was elevated at 18,000. SARS-CoV-2 PCR negative. He has had COVID shot in the past. Admission Exam Per Admitting Provider PHYSICAL EXAMINATION: GENERAL: The patient is frail, not in acute distress. VITAL SIGNS: Temperature 36.1, pulse 63, respiratory rate 19, blood pressure 130/64, oxygen currently 99% on 5 liters. HEENT: Pupils equal, round, and reactive to light. Oral mucosa moist. NECK: No JVD, no neck masses. CARDIOVASCULAR: S1 and S2 heard. Regular rate and rhythm. No murmur, no connors p. RESPIRATORY SYSTEM: Normal AP diameter. No accessory muscle use. No wheezing, no crackles. ABDOMEN: Soft, bowel sounds present, nontender, no distention. CENTRAL NERVOUS SYSTEM: Cranial nerves II-XII grossly intact, nonfocal. EXTREMITIES: No edema, no erythema. Principal Diagnosis (1) Acute and chronic respiratory failure with hypoxia: (2) Multifocal pneumonia: (3) History of nasopharyngeal cancer: (4) Palate abnormality: (5) History of coronary artery bypass graft: (6) History of heart valve replacement: (7) CHF (congestive heart failure): Discharge Exam ROS-No Headache, No Visual Changes, No Nausea, No Vomiting, No Fever, No Chills, No Neck Pain or Stiffness, No Chest Pain, No Palpitations, No SOB, No DERGOOT, No Cough, No Sputum, No Wheezing, No Abdominal Pain, No Diarrhea, No Hematemesis, No Hemoptysis, No Unexpected Weight Loss, No Flank pain, No Melena, No Hematochezia, No Frequency, No Urgency, No Burning, No Hematuria, No Rashes, No Diaphoresis. Appetite is Normal Physical Exam Gen-AAO x 3, NAD, Afebrile, Upper airway sounds Head-NCAT, EOMI, PERRLA, Anicteric Sclera, No Posterior Pharyngeal Erythema Neck-Supple, No JVD, No Thyromegaly, No Masses, No LAD, No Bruits Lungs-Clear to Auscultation Bilaterally after cough, No Rales, No Rhonchi, No Wheezing, No Crepitus Chest-No S4, +S1, +S2, No S3, No Murmurs, No Rubs, No Gallops, No Ectopy Abdomen-Soft, Bowel Sounds Present, Non Tender, Non Distended, No Hepatomegaly, No Splenomegaly, No Palpable Masses, No Rebound, No Rigidity, No Guarding Musculoskeletal-Full Range of Motion Bilaterally, No CVAT Extremities-No Cyanosis, No Clubbing, No Edema Nuero-Cranial Nerves II-XII grossly intact, Motor WNL, DTRs WNL, Strength WNL, Non Focal Psych-Normal Mood Discharge Data Allergies Allergy/AdvReac Type Severity Reaction Status Date / Time No Known Allergies Allergy Verified 08/18/20 18:33 Consultations 08/18/20 20:38 ED Decision to Admit Stat Ordered Studies 08/18/20 18:57 CT angio chest PE protocol Stat Current Diagnoses Heart failure, unspecified (08/18/20) Pneumonia, unspecified organism (08/18/20) Acute and chronic respiratory failure with hypoxia (08/18/20) Congenital malformations of palate, not elsewhere classified (08/18/20) Personal history of malignant neoplasm of unspecified site of lip, oral cavity, and pharynx (08/18/20) Presence of aortocoronary bypass graft (08/18/20) Presence of prosthetic heart valve (08/18/20) Allergies No Known Allergies Allergy (Verified 08/18/20 18:33) Height/Weight/Isolation Height 5 ft 7 in Weight 57.8 kg Chemistry 08/18/20 08/19/20 08/20/20 18:10 05:41 06:51 Sodium 136 137 137 Potassium 4.1 3.7 3.8 Chloride 100 103 103 Carbon Dioxide 35 H 35 H 31 Anion Gap 1.0 L -1.0 L 4.0 BUN 24 H 17 15 Creatinine 1.22 0.87 D 0.85 Glucose 99 69 L 70 Urinalysis 08/18/20 19:48 Urine Color Yellow Urine Appearance Clear Urine pH 5.5 Ur Specific [place] 1.015 Urine Protein Negative Urine Glucose (UA) Negative Urine Ketones Negative Urine Blood Negative Urine Nitrite Negative Urine Bilirubin Negative Microbiology 08/18/20 18:34 Blood Aerobic Blood Culture - Preliminary No growth in Aerobic bottle after 24 hours. 08/18/20 18:34 Blood Anaerobic Blood Culture - Preliminary No growth in Anaerobic bottle after 24 hours. 08/18/20 18:10 Blood Aerobic Blood Culture - Preliminary No growth in Aerobic bottle after 24 hours. 08/18/20 18:10 Blood Anaerobic Blood Culture - Preliminary No growth in Anaerobic bottle after 24 hours. Hospital Course (1) Acute and chronic respiratory failure with hypoxia: Secondary to aspiration pneumonitis and may be complicated by history of congestive heart failure with aortic valve replacement in the past CTA did not show any pulmonary embolism Has been feeling much better since admission (2) Multifocal pneumonia: Has history of aspiration secondary to bilateral deformity with aspiration pneumonia in the past CTA did show multifocal pneumonia likely secondary to aspiration Has been on intravenous Zosyn Clinically better with decreasing white count and no fever and no chills Wants to go home I discussed the possibility of a J-tube with the patient and he is going to follow-up as an outpatient with [address] Pires's associates. I discussed the case with GI as well and they said a PEG tube would not help with his aspiration and they recommended J tube instead. (3) History of nasopharyngeal cancer: History of nasopharyngeal cancer status post surgery, radiation and cisplatin therapy No recurrence of cancer as per ENT specialist Recently saw ENT surgeon as an outpatient and will have follow-up appointment for some reconstruction (4) Palate abnormality: Significant problem with swallowing and aspiration Speech evaluation and video swallow were done during his last admission PEG tube placement was recommended but the patient refused, again this was discussed as to the possibility of a J-tube. The patient wants to follow-up as an outpatient, be discharged today and he will weigh all his options after his surgery visit. He wanted to follow instruction as per speech therapy and continue oral food for now (5) History of coronary artery bypass graft: No acute issue (6) History of heart valve replacement: No acute issue (7) CHF (congestive heart failure): Seems to be compensated DVT prophylaxis Subcu heparin CODE STATUS Full Total Time Total Time Spent Total Time Spent (In Minutes): 45 mins Total Time Includes: Examination of the Patient, Discharge Planning, Medication Reconciliation, Communication With Other Providers and Other Discharge Plan Discharge Items Patient Disposition: Home - Self-Care Reason For Visit: shortness of breath Discharge Diagnosis: (1) Acute and chronic respiratory failure with hypoxia: (2) Multifocal pneumonia: (3) History of nasopharyngeal cancer: (4) Palate abnormality: (5) History of coronary artery bypass graft: (6) History of heart valve replacement: (7) CHF (congestive heart failure): Condition on Discharge: Good Activity: Resume your previous activity Lifting: Gradually increase as tolerated Bathing: No limitations Sexual Activity: When tolerated Exercise/Sports: Gradually increase as tolerated Driving/Machine Use: No limitations Weightbearing: Full weightbearing Non-emergency contact: Primary Care Provider and Surgeon Call non-emergency contact if: you have any medication questions Follow-up/Referrals: Grady Baumann DO [Physician] - (Call for first opening for opinion on a J tube to prevent recurrent aspiration pneumonia) Prudencio Burns MD [Primary Care Provider] - (Date & Time 08/27/2020 11:00 AM Provider Prudencio Burns III, MD Department [facility] ) Diet: Regular Addtl Attending Provider Instructions: Follow-up with Dr. Grady Baumann general surgery with the above provided number for his opinion on the possibility of putting a J tube for you. Pending Studies at Discharge: No Stand-Alone Forms: My [facility], Smoking Cessation Medications and DC Order Prescriptions: New amoxicillin-pot clavulanate [Augmentin] 875-125 mg tablet 1 tab PO Q12H Qty: 20 RF: 0 Continued atorvastatin 40 mg Tablet 40 mg PO QAM RF: 0 amlodipine 5 mg Tablet 5 mg PO BID RF: 0 aspirin 81 mg Tablet,Delayed Release (Dr/Ec) 81 mg PO QAM RF: 0 terazosin 2 mg Capsule 2 mg PO HS RF: 0 nitroglycerin 0.4 mg Tablet, Sublingual 0.4 mg sublingual UD PRN (Reason: Chest Pain) RF: 0 potassium chloride 20 mEq tablet extended release 20 meq PO BID Qty: 30 RF: 0 albuterol sulfate [ProAir HFA] 90 mcg/actuation HFA aerosol inhaler 2 inh inhalation Q6H PRN (Reason: shortness of breath or wheezing) Qty: 8.5 RF: 0 furosemide [Lasix] 40 mg tablet 40 mg PO QAM Qty: 30 RF: 0 Lactinex 1 million cell tablet,chewable 1 tab PO BID Qty: 30 RF: 0 Discharge Orders: Discharge Order (Routine); Ordered 08/20/20 Ordered By: Stas Short Admission Data Admit Date/Time: 08/18/20 22:07 Attending Provider: Stas Short Provider: Kingsley Holly Primary Care Provider: Prudencio Burns Other Providers: Kingsley Holly
== END 2020-08-20 17:03 | disposition home or self-care (01) | DRG 177 ==
LOC: ED 16:56 → 2N 22:07 → SUATTDRO 22:07 → 2N 23:25

== ENCOUNTER 2021-02-19 10:29 | Inpatient (IN) ==
--- NOTE | 2021-02-19 10:56 | Emergency Department Note ---
History of Present Illness General Chief complaint: Shortness of Breath/Dyspnea Stated complaint: SOB Time Seen by Provider: 02/19/21 10:40 History of Present Illness Maximum Pain Intensity: 5 75-year-old male presents via EMS with a complaint of shortness of breath and cough. Patient has a history of pneumonia and has been hospitalized multiple times in the past few months for pneumonia. He also is COVID vaccinated and has tested negative in the past for COVID. 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 Patient called EMS today for increased shortness of breath and cough. EMS found the patient to have a pulse ox around 66% per nursing staff he was placed on a simple mask at 7 L and he improved greatly. Patient has no other complaints. There are no other mitigating or alleviating factors Home Medications Medication Instructions Recorded Confirmed Type atorvastatin 40 mg tablet 40 mg PO QDL 09/18/18 02/19/21 History nitroglycerin 0.4 mg sublingual 0.4 mg SUBLINGUAL UD PRN 09/18/18 02/19/21 History tablet albuterol sulfate 90 mcg/actuation 2 inh INHALATION Q6H PRN #8.5 g 05/06/20 02/19/21 Rx aerosol inhaler (ProAir HFA) aspirin 81 mg chewable tablet 81 mg PO QDL 02/19/21 02/19/21 History Allergies Allergy/AdvReac Type Severity Reaction Status Date / Time No Known Allergies Allergy Verified 02/19/21 11:21 Past Med/Surg History Medical History Acute hypoxemic respiratory failure Acute on chronic diastolic heart failure Cardiac murmur CHILD FROM RHEUMATIC FEVER CHF (congestive heart failure) CKD (chronic kidney disease) stage 3, GFR 30-59 ml/min Former tobacco use Hearing deficit BILAT History of ND (myocardial infarction) 2017/ [facility] History of nasopharyngeal cancer s/p radiation, 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 Eliel GRAHAM [place]/ NO STENTS History of cataract surgery History of colonoscopy with polypectomy 09/25/2018. Propofol given, no issues. History of coronary artery bypass graft One vessel - 2017 - [facility] [place] History of heart valve replacement Bioprosthetic aortic valve - 2016 History of shoulder surgery RIGHT History of tonsillectomy History of tooth extraction History of vascular access device NO LONGER HAS PORT Status post insertion of percutaneous endoscopic gastrostomy (PEG) tube PLACED DUE TO PALATE SURGERY- THEN REMOVED 2014 Family History Father Cancer Liver Cancer Social History Smoking Status: Former smoker Tobacco Type: Cigarettes Second Hand Exposure: No; Hx Alcohol Use: No Hx Substance Use: No Preferred Language: Zimbabwean Communication Ability: Effective Court Security Officer Required: No Beliefs That Will Affect Care: None marital status: / Current Living Situation: Alone Feels Safe at Home: Yes Assistive Devices: None Review of Systems A total of 10 systems reviewed and were otherwise negative Constitutional: + body aches Respiratory: + cough and + dyspnea Cardiovascular: no chest pain Musculoskeletal: no back pain Physical Exam Vital Signs Vital Signs - 24 hr 02/19/21 10:41 02/19/21 10:56 02/19/21 11:00 Temperature 36.8 C Temperature Source Oral Pulse Rate 76 79 Pulse Rate [Apical] Pulse Rate from SpO2 Sensor Pulse Rhythm [Apical] Pulse Strength [Apical] Respiratory Rate 21 17 Respiratory Effort / Characteristics Spontaneous Respiratory Depth Shallow Blood Pressure 144/82 H 127/68 Blood Pressure [Left Arm] Blood Pressure Mean 102 87 Blood Pressure Mean [Left Arm] Blood Pressure Position [Left Arm] Pulse Oximetry 85 L Oxygen Delivery Method Oxymask Oxymask Oxygen Flow Rate 0 Sepsis New/Unexplained Change in Mental Status No Sepsis Action Taken by Nursing No Action Required Oxygen Flow Rate - Titration 6 Pulse Oximetry Post Tiitration 94 02/19/21 11:10 02/19/21 11:20 02/19/21 11:30 Temperature Temperature Source Pulse Rate 74 71 77 Pulse Rate [Apical] Pulse Rate from SpO2 Sensor 74 71 75 Pulse Rhythm [Apical] Pulse Strength [Apical] Respiratory Rate 15 32 H 18 Respiratory Effort / Characteristics Respiratory Depth Blood Pressure 138/61 Blood Pressure [Left Arm] Blood Pressure Mean 86 Blood Pressure Mean [Left Arm] Blood Pressure Position [Left Arm] Pulse Oximetry 94 94 94 Oxygen Delivery Method Nasal Cannula Oxygen Flow Rate 4 Sepsis New/Unexplained Change in Mental Status Sepsis Action Taken by Nursing Oxygen Flow Rate - Titration Pulse Oximetry Post Tiitration 02/19/21 11:31 02/19/21 11:40 02/19/21 11:50 Temperature Temperature Source Pulse Rate 75 73 77 Pulse Rate [Apical] Pulse Rate from SpO2 Sensor 75 73 78 Pulse Rhythm [Apical] Pulse Strength [Apical] Respiratory Rate 25 H 17 18 Respiratory Effort / Characteristics Respiratory Depth Blood Pressure 133/85 Blood Pressure [Left Arm] Blood Pressure Mean 101 Blood Pressure Mean [Left Arm] Blood Pressure Position [Left Arm] Pulse Oximetry 98 98 98 Oxygen Delivery Method Oxygen Flow Rate Sepsis New/Unexplained Change in Mental Status Sepsis Action Taken by Nursing Oxygen Flow Rate - Titration Pulse Oximetry Post Tiitration 02/19/21 12:00 02/19/21 12:01 02/19/21 12:10 Temperature Temperature Source Pulse Rate 77 78 76 Pulse Rate [Apical] Pulse Rate from SpO2 Sensor 94 H 77 76 Pulse Rhythm [Apical] Pulse Strength [Apical] Respiratory Rate 17 17 17 Respiratory Effort / Characteristics Respiratory Depth Blood Pressure 161/73 H Blood Pressure [Left Arm] Blood Pressure Mean 102 Blood Pressure Mean [Left Arm] Blood Pressure Position [Left Arm] Pulse Oximetry 91 95 94 Oxygen Delivery Method Oxygen Flow Rate Sepsis New/Unexplained Change in Mental Status Sepsis Action Taken by Nursing Oxygen Flow Rate - Titration Pulse Oximetry Post Tiitration 02/19/21 12:14 Temperature Temperature Source Pulse Rate Pulse Rate [Apical] 75 Pulse Rate from SpO2 Sensor Pulse Rhythm [Apical] Regular Pulse Strength [Apical] Normal Respiratory Rate 20 Respiratory Effort / Characteristics Respiratory Depth Normal Blood Pressure Blood Pressure [Left Arm] 161/73 H Blood Pressure Mean Blood Pressure Mean [Left Arm] 102 Blood Pressure Position [Left Arm] Lying Pulse Oximetry 94 Oxygen Delivery Method Oxymask Oxygen Flow Rate 6 Sepsis New/Unexplained Change in Mental Status Sepsis Action Taken by Nursing Oxygen Flow Rate - Titration Pulse Oximetry Post Tiitration VITAL SIGNS - Vital signs and nursing notes were reviewed. GENERAL -75-year-old male appearing his stated age who is in no acute distress. Cachectic appearance SKIN - Without rashes. HEAD - NC/AT. EYES - PERRL with EOMI bilaterally. Sclera anicteric. Palpebral conjunctiva pink and moist with no injection noted. EARS - No deformities of external structures noted on gross examination bilaterally. NOSE - Midline and without cyanosis. No epistaxis or purulent drainage noted. Septum midline without deviation or septal hematoma noted. MOUTH/OROPHARYNX - Without perioral cyanosis. Oropharynx has an area of significant change in the posterior portion NECK - Neck with FROM. Supple to palpation. Nolymphadenopathy noted. No nuchal rigidity. LUNGS - Chest wall symmetric without accessory muscle use, intercostals retractions, or central cyanosis. Diffuse rhonchi CARDIAC - RRR with S1/S2. No murmur, rubs, or gallops appreciated. ABDOMEN - Abdominal contour soft without pulsations or visible masses. BS normoactive all four quadrants. No tenderness, palpable masses, hepatosplenomegaly, or ascites noted. EXTREMITIES - No clubbing or peripheral cyanosis. No pretibial edema present. +5/5 strength noted in UE/LE bilaterally. NEUROLOGIC - Cranial nerves II through XII grossly intact.. PSYCH - A&Ox3 and cooperates fully with examiner. Pt is very pleasant and interacts well with examiner. Course Course Patient remained in stable condition on a simple mask at 6 L was not hypoxic was in no respiratory distress. Patient was given IV cefepime. This case was discussed with the [facility] for admission Administered Medications Discontinued Medications Cefepime HCl (Maxipime) 20 mls @ 5 mls/min IV NOW ONE Stop: 02/19/21 11:33 Last Admin: 02/19/21 11:53 Dose: 5 mls/min Documented by: [id number] Medical Decision Making Medical Records Attestation: I reviewed the patient's medical records. Laboratory Data Result diagrams: 02/19/21 10:46 02/19/21 10:46 Lab Results 02/19/21 02/19/21 02/19/21 Range/Units 10:46 10:46 10:46 WBC 21.05 H (4.8-10.8) K/uL RBC 4.20 L (4.7-6.1) M/uL Hgb 10.9 L (14.0-18.0) g/dL Hct 34.7 L (42-52) % MCV 82.6 (80-100) fL MCH 26.0 (25-34) pg MCHC 31.4 L (32-36) g/dL RDW Std Deviation 54.1 H (36.4-46.3) fL RDW Coeff of Navid 17.7 H (11.5-14.5) % Plt Count 180 (130-400) K/uL MPV 9.6 (7.4-10.4) fL Immature Gran % (Auto) 0.2 % Neut % (Auto) 92.8 % Lymph % (Auto) 4.3 % [place] % (Auto) 2.3 % Eos % (Auto) 0.4 % Baso % (Auto) 0.0 % Neut # (Auto) 19.54 H (1.4-6.5) K/uL Lymph # (Auto) 0.90 L (1.2-3.4) K/uL [place]imes # (Auto) 0.48 (0.11-0.59) K/uL Eos # (Auto) 0.08 (0-0.5) K/uL Baso # (Auto) 0.00 (0-0.2) K/uL Immature Gran # (Auto) 0.05 H (0.00-0.02) K/uL PT 11.4 (9.0-12.0) Seconds INR 1.1 (0.9-1.1) APTT 31.7 H (21.0-31.0) Seconds PTT Ratio 1.2 Sodium 131 L (136-145) mmol/L Potassium 4.3 (3.5-5.1) mmol/L Chloride 90 L (98-107) mmol/L Carbon Dioxide 33 H (21-32) mmol/L Anion Gap 8 (3-11) BUN 40 H (6-23) mg/dl Creatinine 1.04 (0.6-1.4) mg/dl Est Cr Clr Drug Dosing 44.1 ml/min Est GFR ( Amer) 80.5 ml/min Est GFR (Non-Af Amer) 69.4 ml/min BUN/Creatinine Ratio 38.5 H (10-20) Glucose 81 (70-99) mg/dl Calcium 9.2 (8.5-10.1) mg/dl Magnesium 2.1 (1.7-2.4) mg/dl Total Bilirubin 0.7 (0.2-1.0) mg/dl AST 30 (13-39) U/L ALT 10 (7-52) U/L Alkaline Phosphatase 71 (34-104) U/L Troponin I 0.03 (0-0.04) ng/ml Total Protein 7.5 (6.0-8.3) gm/dl Albumin 3.6 (3.4-5.0) gm/dl Globulin 3.9 (2.5-4.0) gm/dl Albumin/Globulin Ratio 0.9 (0.9-2) Procalcitonin (0-0.5) ng/ml Urine Color Urine Appearance (Clear) Urine pH (4.5-7.5) Ur Specific [place] (1.000-1.030) Urine Protein (Negative) Urine Glucose (UA) (Negative) Urine Ketones (Negative) Urine Blood (Negative) Urine Nitrite (Negative) Urine Bilirubin (Negative) Urine Urobilinogen (Negative) Ur Leukocyte Esterase (Negative) Urine WBC (Auto) (0-5) /hpf Urine RBC (Auto) (0-4) /hpf U Hyaline Cast (Auto) (0-5) /lpf U Epithel Cells (Auto) (0-5) /lpf Urine Bacteria (Auto) (Negative) SARS-CoV-2 (PCR) (Negative) Influenza Type A (PCR) (Neg) Influenza Type B (PCR) (Neg) RSV (RT-PCR) (Neg) 02/19/21 02/19/21 02/19/21 Range/Units 10:46 11:08 11:56 WBC (4.8-10.8) K/uL RBC (4.7-6.1) M/uL Hgb (14.0-18.0) g/dL Hct (42-52) % MCV (80-100) fL MCH (25-34) pg MCHC (32-36) g/dL RDW Std Deviation (36.4-46.3) fL RDW Coeff of Navid (11.5-14.5) % Plt Count (130-400) K/uL MPV (7.4-10.4) fL Immature Gran % (Auto) % Neut % (Auto) % Lymph % (Auto) % [place] % (Auto) % Eos % (Auto) % Baso % (Auto) % Neut # (Auto) (1.4-6.5) K/uL Lymph # (Auto) (1.2-3.4) K/uL [place] # (Auto) (0.11-0.59) K/uL Eos # (Auto) (0-0.5) K/uL Baso # (Auto) (0-0.2) K/uL Immature Gran # (Auto) (0.00-0.02) K/uL PT (9.0-12.0) Seconds INR (0.9-1.1) APTT (21.0-31.0) Seconds PTT Ratio Sodium (136-145) mmol/L Potassium (3.5-5.1) mmol/L Chloride (98-107) mmol/L Carbon Dioxide (21-32) mmol/L Anion Gap (3-11) BUN (6-23) mg/dl Creatinine (0.6-1.4) mg/dl Est Cr Clr Drug Dosing ml/min Est GFR ( Amer) ml/min Est GFR (Non-Af Amer) ml/min BUN/Creatinine Ratio (10-20) Glucose (70-99) mg/dl Calcium (8.5-10.1) mg/dl Magnesium (1.7-2.4) mg/dl Total Bilirubin (0.2-1.0) mg/dl AST (13-39) U/L ALT (7-52) U/L Alkaline Phosphatase (34-104) U/L Troponin I (0-0.04) ng/ml Total Protein (6.0-8.3) gm/dl Albumin (3.4-5.0) gm/dl Globulin (2.5-4.0) gm/dl Albumin/Globulin Ratio (0.9-2) Procalcitonin 10.52 H (0-0.5) ng/ml Urine Color Yellow Urine Appearance Clear (Clear) Urine pH 7.5 (4.5-7.5) Ur Specific [place] 1.016 (1.000-1.030) Urine Protein 1+ H (Negative) Urine Glucose (UA) Negative (Negative) Urine Ketones Negative (Negative) Urine Blood Negative (Negative) Urine Nitrite Negative (Negative) Urine Bilirubin Negative (Negative) Urine Urobilinogen Negative (Negative) Ur Leukocyte Esterase Trace H (Negative) Urine WBC (Auto) 0 (0-5) /hpf Urine RBC (Auto) 0-4 (0-4) /hpf U Hyaline Cast (Auto) 0 (0-5) /lpf U Epithel Cells (Auto) 0-5 (0-5) /lpf Urine Bacteria (Auto) Negative (Negative) SARS-CoV-2 (PCR) NEGATIVE (Negative) Influenza Type A (PCR) Negative (Neg) Influenza Type B (PCR) Negative (Neg) RSV (RT-PCR) Negative (Neg) Imaging Data Radiologist's Impression: Chest X-Ray 02/19/21 10:47 XR chest 1V portable CLINICAL HISTORY: Dyspnea. COMPARISON STUDY: 02/19/2020 TECHNIQUE: 1 view of the chest FINDINGS: Single frontal view of the chest demonstrates the heart size to be within normal limits status post previous cardiothoracic surgery. There is evidence for underlying COPD with no smoking history provided. Compared to the previous examination, mild patchy interstitial and alveolar opacities are present bilaterally. The findings are most characteristic of a viral type pneumonitis. Covid 19 pneumonia should be excluded. There is no evidence for pleural effusion. There is no evidence for vascular congestion. There is no acute osseous pathology. IMPRESSION: Evidence for COPD with mild patchy interstitial and alveolar opacities bilaterally. The findings are suspicious for a viral type pneumonitis and early Covid pneumonia. ACT 112: Negative or not required by law. Electronically signed by: Mil Salazar M.D. 02/19/2021 11:02 AM ECG Data Attestation: I personally reviewed and interpreted this ECG as follows: Additional Comments: Normal sinus rhythm at 73 normal intervals normal axis no obvious ST segment elevation or depression MDM Narrative Medical decision making differential diagnosis pneumonia bronchitis COVID upper respiratory tract infection aspiration pneumonia sepsis Impression & Plan Pneumonia, Hypoxia Discharge Plan Visit Data Chief Complaint: Shortness of Breath/Dyspnea Stated Complaint: SOB ED Provider: Fabian Chacon Discharge Problem: Pneumonia, Hypoxia Patient Disposition: Being Evaluated by Hospitalist Forms Stand Alone Forms: My [facility] PostedIn Prescriptions Prescriptions: No Action atorvastatin 40 mg Tablet 40 mg PO QDL RF: 0 nitroglycerin 0.4 mg Tablet, Sublingual 0.4 mg sublingual UD PRN (Reason: Chest Pain) RF: 0 albuterol sulfate [ProAir HFA] 90 mcg/actuation HFA aerosol inhaler 2 inh inhalation Q6H PRN (Reason: shortness of breath or wheezing) Qty: 8.5 RF: 0 aspirin 81 mg Tablet,Chewable 81 mg PO QDL RF: 0 Referrals Referrals: Prudencio Burns MD [Primary Care Provider] -
--- NOTE | 2021-02-19 11:04 | XRay Report ---
XR chest 1V portable CLINICAL HISTORY: Dyspnea. COMPARISON STUDY: 02/19/2020 TECHNIQUE: 1 view of the chest FINDINGS: Single frontal view of the chest demonstrates the heart size to be within normal limits status post p revious cardiothoracic surgery. There is evidence for underlying COPD with no smoking history provide d. Compared to the previous examination, mild patchy interstitial and alveolar opacities are present bilaterally. The findings are most characteristic of a viral type pneumonitis. Covid 19 pneumonia [place] uld be excluded. There is no evidence for pleural effusion. There is no evidence for vascular congest ion. There is no acute osseous pathology. IMPRESSION: Evidence for COPD with mild patchy interstitial and alveolar opacities bilaterally. The f indings are suspicious for a viral type pneumonitis and early Covid pneumonia. ACT 112: Negative or not required by law. Electronically signed by: Mil Salazar M.D. 02/19/2021 11:02 AM
[2021-02-19 11:09] LABS: Eosinophils # (auto) 0.08 K/uL (0-0.5); Eosinophils % (auto) 0.4 %; Hematocrit (blood only) 34.7 % (42-52); Hemoglobin 10.9 g/dL (14.0-18.0); Immature Granulocytes # (auto) 0.05 K/uL (0.00-0.02); Immature Granulocytes % (auto) 0.2 %; Lymphocytes % (auto) 4.3 %; Mean Corpuscular Hgb Conc 31.4 g/dL (32-36); Mean Corpuscular Volume 82.6 fL (80-100); Mean Platelet Volume 9.6 fL (7.4-10.4); Monocytes # (auto) 0.48 K/uL (0.11-0.59); Monocytes % (auto) 2.3 %; Neutrophils # (auto) 19.54 K/uL (1.4-6.5); Neutrophils % (auto) 92.8 %; Platelet Count 180 K/uL (130-400); RDW Coefficient of Variation 17.7 % (11.5-14.5); RDW Standard Deviation 54.1 fL (36.4-46.3); White Blood Count 21.05 K/uL (4.8-10.8)
[2021-02-19 11:23] LABS: INR 1.1 (0.9-1.1); Partial Thromboplastin Ratio 1.2; Partial Thromboplastin Time 31.7 Seconds (21.0-31.0); Prothrombin Time 11.4 Seconds (9.0-12.0)
[2021-02-19 11:29] LABS: Albumin Level 3.6 gm/dl (3.4-5.0); Bilirubin,Total 0.7 mg/dl (0.2-1.0); Calcium 9.2 mg/dl (8.5-10.1); Magnesium 2.1 mg/dl (1.7-2.4); Potassium 4.3 mmol/L (3.5-5.1)
[2021-02-19] MEDS ORDERED: CEFEPIME 20 ML IV ONE (11:30)
[2021-02-19 11:33] LABS: Troponin I 0.03 ng/ml (0-0.04)
[2021-02-19 11:35] LABS: Albumin Globulin Ratio 0.9 (0.9-2); BUN Creatinine Ratio 38.5 (10-20); Creatinine Clr Calc Pharmacy 44.1 ml/min; Est GFR (African American) 80.5 ml/min; Est GFR (Non-African American) 69.4 ml/min; Globulin 3.9 gm/dl (2.5-4.0); Total Protein 7.5 gm/dl (6.0-8.3)
[2021-02-19 12:18] LABS: Influenza A virus by PCR Negative (Neg); Influenza B virus by PCR Negative (Neg); RSV by PCR Negative (Neg); SARS CoV2 RNA(COVID-19) InHosp NEGATIVE (Negative)
[2021-02-19 12:22] LABS: Appearance Urine Clear (Clear); Bacteria Urine Automated Negative (Negative); Bilirubin Urine Negative (Negative); Blood Urine Negative (Negative); Cast Urine Automated 0 /lpf (0-5); Color Urine Yellow; Epithelial Cell Urine Auto 0-5 /lpf (0-5); Glucose Urine UA Negative (Negative); Ketones Urine Negative (Negative); Leukocyte Esterase Urine Trace (Negative); Nitrite Urine Negative (Negative); RBC Urine Automated 0-4 /hpf (0-4); Specific Gravity Urine 1.016 (1.000-1.030); Urobilinogen Urine Negative (Negative); WBC Urine Automated 0 /hpf (0-5); pH Urine 7.5 (4.5-7.5)
[2021-02-19 12:24] LABS: Protein Urine 1+ (Negative)
[2021-02-19 13:14] LABS: Base Excess VBG 9.2 mEq/L; HCO3 VBG 36 mmol/L; PCO2 VBG 59 mmHg (38-50); PO2 VBG 25 mmHg
[2021-02-19 13:15] LABS: Oxygen Saturation VBG < 60.0 %
--- NOTE | 2021-02-19 13:23 | History & Physical Report ---
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 Acute hypoxic respiratory failure with hypoxia and hypercapnia Bilateral interstitial pneumonia, likely aspiration Chronic pulmonary aspiration secondary to history of oropharyngeal cancer COPD Admit to PCU Continue oxygen supplementation, keep O2 > 90% IV antibiotics with Zosyn and Doxy no acute copd exac Aggressive pulmonary toilet with incentive spirometry, flutter valve, chest PT Duo nebs Mucinex N.p.o., aspiration precautions Gentle IV fluid x1 L Consult dietitian persistently to peds pt will likely need 2 step prior to discharge to determine O2 needs, pt previously had oxygen but improved and no longer needed History of nasopharyngeal cancer status post chemo, radiation in 2013 for definitive tx PEG tube in place flushes, 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 mejia, please see addendum The chart was completed utilizing [employer] voice recognition software. Grammatical errors, random word insertions, pronoun errors, and incomplete sentences are an occasional consequence of this system due to software limitations, ambient noise, and hardware issues. Any formal questions or concerns about the content, text, or information contained within the body of this dictation should be directly addressed to the provider for clarification.. History of Present Illness Chief Complaint: Shortness of breath and cough x2 days. 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 He states, "this is my fifth time with pneumonia." Of significance he was last hospitalized in our facility on 08/2020 due to aspiration pneumonia. He also had hospitalization in June due to aspiration pneumonia. Over the past 2 days he he has noticed productive cough purulent sputum, chest congestion, shortness of breath at rest and with exertion, chest pain with cough and deep breathing, inability to take a deep breath. He currently has a PEG tube in place and does not take anything orally. He does nutritional feedings and takes his meds via his tube. He does sleep flat in bed and on his left side, but does not elevate his head due to comfort. He complains of chills but denies any documented fever or sweats. He denies any lightheadedness, dizziness, hemoptysis, palpitations, nausea, vomiting, abdominal pain, melena, hematochezia, change in urinary habits. He does have liquid BM secondary to tube feeding. Last BM 10 minutes ago. He denies a change in weight as he weighs himself daily. His baseline weight is 122. He denies any lower extremity swelling. He denies any sick contacts that he lives at home alone. He is vaccinated for COVID. EMS was summoned and patient was 85% on room air requiring nonrebreather. Currently in ED he saturating at 94% on 6 L of O2. Lab work notable for leukocytosis 21k, H&H 10.9 and 34.7, VBG pH 7.4, PCO2 59, sodium 131, BUN 40, creatinine 1.04, procalcitonin 10.52. He received IV cefepime in ED. Chest x-ray concerning for COPD with bilateral alveolar opacities concerning for pneumonia. His influenza, RSV and COVID panel was negative. Allergies Allergy/AdvReac Type Severity Reaction Status Date / Time No Known Allergies Allergy Verified 02/19/21 11:21 Home Medications Medication Instructions Recorded Confirmed Type atorvastatin 40 mg tablet 40 mg FEEDING TUBE QDL 09/18/18 02/19/21 History nitroglycerin 0.4 mg sublingual 0.4 mg SUBLINGUAL UD PRN 09/18/18 02/19/21 History tablet albuterol sulfate 90 mcg/actuation 2 inh INHALATION Q6H PRN #8.5 g 05/06/20 02/19/21 Rx aerosol inhaler (ProAir HFA) aspirin 81 mg chewable tablet 81 mg FEEDING TUBE QDL 02/19/21 02/19/21 History fluticasone fur. 100 mcg-umeclid 1 inh INHALATION DAILY 02/19/21 02/19/21 History 62.5 mcg-vilant 25 mcg inhalat.powder (Trelegy Ellipta) nutritional supplements 0.08 1 ea FEEDING TUBE TID 02/19/21 02/19/21 History gram-2 kcal/mL liquid for tube feed (Nutren 2.0) Past Med/Surg History Medical History (Updated 02/19/21 @ 13:47 by Karoline Acevedo PA-C) Acute hypoxemic respiratory failure Acute on chronic diastolic heart failure CAD (coronary artery disease) Cardiac murmur CHILD FROM RHEUMATIC FEVER CHF (congestive heart failure) Chronic pulmonary aspiration CKD (chronic kidney disease) stage 3, GFR 30-59 ml/min Former tobacco use Hearing deficit BILAT History of MT (myocardial infarction) 2016/ [facility] History of nasopharyngeal cancer s/p radiation, chemo- NO PORT ANYMORE CLEARED NOV 2013 History of rheumatic fever Hyperlipidemia Hypertension Left bundle branch block (LBBB) Palate abnormality prosthetic palate Pneumonia Surgical History (Updated 02/19/21 @ 13:47 by Karoline Acevedo PA-C) History of cardiac cath 2017 - MT --> CABG - [facility]- follows w/ Dr. Milton- [facility]/ NO STENTS History of cataract surgery History of colonoscopy with polypectomy 09/25/2018. Propofol given, no issues. History of coronary artery bypass graft One vessel - 2016 - [facility] History of heart valve replacement Bioprosthetic aortic valve - 2016 History of shoulder surgery RIGHT History of tonsillectomy History of tooth extraction History of vascular access device NO LONGER HAS PORT Hx of aortic valve replacement Status post insertion of percutaneous endoscopic gastrostomy (PEG) tube PLACED DUE TO PALATE SURGERY- THEN REMOVED 2014 Family History Father Cancer Liver Cancer Social History Smoking Status: Former smoker Tobacco Type: Cigarettes Second Hand Exposure: No; Hx Alcohol Use: No Hx Substance Use: No Preferred Language: Chilean Communication Ability: Effective Hand Bander Required: No Beliefs That Will Affect Care: None marital status: / Current Living Situation: Alone Other Information That Helps Us Care for You: No Feels Safe at Home: Yes Safety Concerns: Feels Safe At This Time Assistive Devices: Cane Review of Systems Review of Systems: All systems reviewed & are unremarkable except as noted in HPI & below Physical Exam Physical Exam: Constitutional: Thin, frail, elderly male, vitals as above, NAD, sitting up in bed, pleasant, conversing easily, speaks in full sentences Head: Normocephalic, Atraumatic Eyes: PERRL, conjunctivae normal, anicteric sclerae ENMT: external ear and nose normal, oropharynx normal Neck: trachea midline, no thyromegaly normal visual inspection Respiratory: normal respiratory effort, on 6 L O2 via OxiMax, bilateral rales and rhonchi throughout, decreased breath sounds at bases, positive expiratory wheeze Normal insp/exp effort, no accessory muscle use Cardiovascular: RRR, no murmur, no edema Vessels: no JVD or carotid bruit Chest: normal inspection of chest Abdomen: normal bowel sounds, soft, nontender, no hepatosplenomegaly , +peg tube with mild chronic erythema, no drainage Musculoskeletal: no cyanosis or clubbing, extremities motor strength 5/5 Skin: no rashes, warm and dry normal turgor Neurologic: PERRL, EOMI, accommodation nl, no face palsy, no dysarthria CN's II-XI intact bilaterally and moves all extremities Psychiatric: A+Ox3, euthymic affect Lymphatic: no cervical or axillary lymphadenopathy : deferred Results & Data Results & Data ([place]) Vital Signs (Past 12 Hours) Vital Signs Temp Pulse Pulse Resp BP BP Pulse Ox 02/19/21 12:14 75 20 161/73 H 94 02/19/21 12:10 76 17 94 02/19/21 12:01 78 17 161/73 H 95 02/19/21 12:00 77 17 91 02/19/21 11:50 77 18 98 02/19/21 11:40 73 17 98 02/19/21 11:31 75 25 H 133/85 98 02/19/21 11:30 77 18 94 02/19/21 11:20 71 32 H 138/61 94 02/19/21 11:10 74 15 94 02/19/21 11:00 79 17 127/68 02/19/21 10:41 36.8 C 76 21 144/82 H 85 L Diagnostic Findings Chest X-Ray 02/19/21 10:47 XR chest 1V portable CLINICAL HISTORY: Dyspnea. COMPARISON STUDY: 02/19/2020 TECHNIQUE: 1 view of the chest FINDINGS: Single frontal view of the chest demonstrates the heart size to be within normal limits status post previous cardiothoracic surgery. There is evidence for underlying COPD with no smoking history provided. Compared to the previous examination, mild patchy interstitial and alveolar opacities are present bilaterally. The findings are most characteristic of a viral type pneumonitis. Covid 19 pneumonia should be excluded. There is no evidence for pleural effusion. There is no evidence for vascular congestion. There is no acute osseous pathology. IMPRESSION: Evidence for COPD with mild patchy interstitial and alveolar opacities bilaterally. The findings are suspicious for a viral type pneumonitis and early Covid pneumonia. ACT 112: Negative or not required by law. Electronically signed by: Mil Salazar M.D. 02/19/2021 11:02 AM Medications Administered Medication List Discontinued Medications Cefepime HCl (Maxipime) 20 mls @ 5 mls/min IV NOW ONE Stop: 02/19/21 11:33 Last Admin: 02/19/21 11:53 Dose: 5 mls/min Documented by: [id number] ECG Rate (beats per minute): 73 Rhythm: normal sinus COVID-19 Results Results COVID-19 Adm Lab Results: RBC 4.20 M/uL (4.7-6.1) L 02/19/21 WBC 21.05 K/uL (4.8-10.8) H 02/19/21 Hgb 10.9 g/dL (14.0-18.0) L 02/19/21 Hct 34.7 % (42-52) L 02/19/21 Plt Count 180 K/uL (130-400) 02/19/21 Neutrophils (%) (Auto) 92.8 % 02/19/21 Lymphocytes (%) (Auto) 4.3 % 02/19/21 Monocytes # (Auto) 0.48 K/uL (0.11-0.59) 02/19/21 Eosinophils # (Auto) 0.08 K/uL (0-0.5) 02/19/21 Immature Granulocyte % (Auto) 0.2 % 02/19/21 Neutrophils # (Auto) 19.54 K/uL (1.4-6.5) H 02/19/21 Lymphocytes # (Auto) 0.90 K/uL (1.2-3.4) L 02/19/21 Monocytes # (Auto) 0.48 K/uL (0.11-0.59) 02/19/21 Eosinophils # (Auto) 0.08 K/uL (0-0.5) 02/19/21 Basophils # (Auto) 0.00 K/uL (0-0.2) 02/19/21 Immature Granulocyte # (Auto) 0.05 K/uL (0.00-0.02) H 02/19/21 Na 131 mmol/L (136-145) L 02/19/21 K 4.3 mmol/L (3.5-5.1) 02/19/21 Cl 90 mmol/L (98-107) L 02/19/21 CO2 33 mmol/L (21-32) H 02/19/21 Anion Gap 8 (3-11) 02/19/21 BUN 40 mg/dl (6-23) H 02/19/21 Creatinine 1.04 mg/dl (0.6-1.4) 02/19/21 BUN/Creatinine Ratio 38.5 (10-20) H 02/19/21 Glucose Level 81 mg/dl (70-99) 02/19/21 Ca 9.2 mg/dl (8.5-10.1) 02/19/21 Total Bilirubin 0.7 mg/dl (0.2-1.0) 02/19/21 AST/SGOT 30 U/L (13-39) 02/19/21 ALT/SGPT 10 U/L (7-52) 02/19/21 Alkaline Phosphatase 71 U/L (34-104) 02/19/21 Total Protein 7.5 gm/dl (6.0-8.3) 02/19/21 Albumin 3.6 gm/dl (3.4-5.0) 02/19/21 Globulin 3.9 gm/dl (2.5-4.0) 02/19/21 Albumin/Globulin Ratio 0.9 (0.9-2) 02/19/21 Troponin I < 0.03 ng/ml (0-0.04) 02/19/21 Procalcitonin 10.52 ng/ml (0-0.5) H 02/19/21 PTT 31.7 Seconds (21.0-31.0) H 02/19/21 INR 1.1 (0.9-1.1) 02/19/21 COVID-19 PCR NEGATIVE (Negative) 02/19/21 Influenza Virus Type A (PCR) Negative (Neg) 02/19/21 Influenza Virus Type B (PCR) Negative (Neg) 02/19/21 Chest X-Ray 02/19/21 Code Status & VTE Plan Code Status FULL CODE VTE Prophylaxis Plan VTE Prophylaxis will be ordered: Yes Supervising Physician Co-Signing Physician Notes Patient is a 75-year-old male with history of coronary artery disease, severe aortic stenosis, recurrent aspiration pneumonia, S/P PEG and other medical problems presents with history of shortness of breath, cough since 2 days duration. He also states having pleuritic chest discomfort. Please review HPI for complete details of presentation. He was found to be hypoxic while in ED requiring 6 L of supplemental oxygen to maintain saturation. CTA showed findings suggestive of extensive pneumonitis/bronchitis, trace pleural effusions, emphysema and bronchitis changes with bibasilar mucous plugging and mild mediastinal and hilar adenopathy. Blood work suggestive of leukocytosis 20 1K, chronic anemia Hb 10.9 at baseline, sodium 131, chloride 90, procalcitonin elevated at 10.52, negative troponins. On exam patient is thin, chronically appearing, no apparent distress, normocephalic atraumatic, EOMI, decreased breath sounds, scattered rhonchi, rales, S1-S2, no murmur, no pedal edema, abdomen soft, nontender, normal bowel sounds,+ PEG tube, alert, awake, oriented, grossly no focal deficits. Patient is admitted for management of acute hypoxic/hypercapnic respiratory failure secondary to pneumonia likely secondary to aspiration. In setting of COPD. Agree with IV Zosyn, aspiration precautions, n.p.o. for now. Pulmonary hygiene. Will request speech evaluation. Agree with chest PT. Follow-up cultures. I personally reviewed the record. Patient is interviewed and examined at bedside. Patient's care is coordinated with Karoline Acevedo PA-C. Please refer to the documentation above for details of patient's presentation and for discussion of other issues. (1) Pneumonia Laterality: bilateral Lung location: unspecified part of lung Pneumonia type: due to unspecified organism Qualified Code(s): J18.9 - Pneumonia, unspecified organism
[2021-02-19] MEDS ORDERED: ALBUT/IPRATROP 3MG/0.5MG NEB 3 ML VIAL NEB STA (13:52)
[2021-02-19] MEDS ORDERED: OPTIRAY 320 100ml IV ONE (15:10)
--- NOTE | 2021-02-19 15:38 | CT Scan Report ---
CT angio chest PE protocol CT DOSE: 248.42 mGy.cm HISTORY: 75 years-old Male with hx of cancer, hypoxia, chest pain. Acute hypoxia with chest pain. H istory of lung cancer TECHNIQUE: Multiple CTA images of the chest were obtained after the intravenous administration of 110 ml Optiray. Coronal and sagittal MIPS were obtained from the axial data set and were submitted for review. All measurements were obtained according to NASCET criteria. A dose lowering technique was u tilized adhering to the principles of ALARA. COMPARISON: CTA chest 08/18/2020 FINDINGS: CTA: The heart is normal in size. There is no pericardial effusion. Moderate to extensive coronary artery calcifications. Aortic valvular endograft. Prior median sternotomy with suggested CABG. Atheroscleros is of the thoracic aorta with patency of the imaged great vessels. Satisfactory opacification of the pulmonary artery. No filling defects identified to suggest thromboembolic disease. CT CHEST: Unremarkable thyroid. Mildly enlarged mediastinal and hilar lymph nodes include pretracheal lymph nod es measuring up to 1.4 cm. Trace pleural effusions. No pneumothorax. Emphysema with chronic diffuse t ree-in-bud and centrilobular nodules redemonstrated. Bronchitis with moderate bronchial wall thickeni ng and tracheobronchial secretions with bibasilar mucous plugging. Patchy multifocal air mixed ground glass and airspace opacities, left greater than right are noted within all lobes bilaterally. Consoli dation with air bronchograms of the medial segment right middle lobe. Gastrostomy tube is partially imaged. Scattered hypodense foci of the liver suggestive of probable cy sts are again noted measuring up to 11 mm. Unremarkable soft tissues. Degenerative changes of the spi ne and shoulders. No destructive bone lesions identified. IMPRESSION: 1. No pulmonary emboli. 2. Extensive chronic diffuse tree-in-bud and centrilobular nodules redemonstrated compatible with an infectious or inflammatory pneumonitis/bronchiolitis. There are superimposed left greater than right multifocal groundglass and alveolar opacities compatible with pneumonia. 3. Trace pleural effusions. 4. Emphysema with bronchitis, tracheobronchial secretions with bibasilar mucous plugging. 5. Mild mediastinal and hilar adenopathy, likely reactive. ACT 112: Negative or not required by law. The above report was generated using voice recognition software. It may contain grammatical, syntax o r spelling errors. Electronically signed by: Marcel Cloud M.D. 02/19/2021 3:37 PM
[2021-02-19] MEDS ORDERED: ACETAMINOPHEN 325 MG TAB PO PRN (17:05)
[2021-02-19] MEDS ORDERED: MAGNESIUM HYDROXIDE SUSP 30 ML UDC PO PRN (17:05)
[2021-02-19] MEDS ORDERED: NUTRITIONAL SUPPLEMENTS feeding tube SCH (17:05)
[2021-02-19] MEDS ORDERED: ALUMINUM/MAGNESIUM SUSP 30 ML UDC PO PRN (17:05)
[2021-02-19] MEDS ORDERED: PIPERACILL/TAZOBAC CONSULT ACTIVE PRN (17:05)
[2021-02-19] MEDS ORDERED: [UNRECOGNIZED DRUG - OTHER] feeding tube SCH (17:05)
[2021-02-19] MEDS ORDERED: ONDANSETRON INJ 2 MG/ML 2 ML VIAL IV PRN (17:05)
[2021-02-19] MEDS ORDERED: SODIUM CHLORIDE 0.9% 1000ML 1,000 ML IV SCH (17:05)
[2021-02-19] MEDS ORDERED: POLYETHYLENE (MIRALAX) 17 GM PACK PO PRN (17:05)
[2021-02-19] MEDS ORDERED: PIPERACILLIN/TAZOBACTAM 3.375 GM in DEXTROSE 5% 100 ML IV ONE (17:30)
[2021-02-19] MEDS: ALBUT/IPRATROP 3MG/0.5MG NEB 3 ML VIAL NEB SCH ×2 (18:01→19:31)
[2021-02-19] MEDS: guaiFENesin 200 MG TAB PEG SCH ×2 (18:06→21:56)
[2021-02-19] MEDS: HEPARIN SOD 5,000 UNIT/0.5 ML VIAL SQ SCH ×2 (18:07→21:56)
[2021-02-19] MEDS: TUBE FEEDING WATER FLUSH GT SCH ×2 (18:09→21:57)
[2021-02-19] MEDS: [UNRECOGNIZED DRUG - OTHER] PEG SCH (18:15)
[2021-02-19] MEDS: ENTERAL FEEDING PEG SCH (18:15)
--- NOTE | 2021-02-19 18:25 | Electrocardiogram Report ---
Test Reason : Blood Pressure : / mmHG Vent. Rate : 073 BPM Atrial Rate : 073 BPM P-R Int : 154 ms QRS Dur : 086 ms QT Int : 386 ms P-R-T Axes : 067 038 065 degrees QTc Int : 425 ms Normal sinus rhythm Normal ECG When compared with ECG of 18-AUG-2020 17:52, No significant change was found Confirmed by Ovidio Zimmerman ([id number]) on 02/19/2021 6:24:59 PM Referred By: REFERRED SELF Confirmed By:Ovidio Zimmerman
[2021-02-19] MEDS: DOXYCYCLINE HYCLATE 100 MG in DEXTROSE 5% 100 ML IV SCH (18:49)
[2021-02-20] MEDS: PIPERACILLIN/TAZOBACTAM 3.375 GM in DEXTROSE 5% 100 ML IV SCH ×3 (00:28→16:07)
[2021-02-20] MEDS ORDERED: [UNRECOGNIZED DRUG - REMARK] ONE (05:34)
[2021-02-20] MEDS: DOXYCYCLINE HYCLATE 100 MG in DEXTROSE 5% 100 ML IV SCH ×2 (05:50→20:24)
[2021-02-20] MEDS: HEPARIN SOD 5,000 UNIT/0.5 ML VIAL SQ SCH ×3 (05:50→21:39)
[2021-02-20 06:22] LABS: Basophils # (auto) 0.01 K/uL (0-0.2); Basophils % (auto) 0.1 %; Eosinophils # (auto) 0.17 K/uL (0-0.5); Eosinophils % (auto) 1.1 %; Hematocrit (blood only) 31.4 % (42-52); Hemoglobin 9.7 g/dL (14.0-18.0); Immature Granulocytes # (auto) 0.03 K/uL (0.00-0.02); Immature Granulocytes % (auto) 0.2 %; Lymphocytes # (auto) 0.79 K/uL (1.2-3.4); Lymphocytes % (auto) 5.1 %; Mean Corpuscular Hemoglobin 25.3 pg (25-34); Mean Corpuscular Hgb Conc 30.9 g/dL (32-36); Mean Corpuscular Volume 81.8 fL (80-100); Mean Platelet Volume 9.6 fL (7.4-10.4); Monocytes % (auto) 3.9 %; Neutrophils # (auto) 13.95 K/uL (1.4-6.5); Neutrophils % (auto) 89.6 %; Platelet Count 166 K/uL (130-400); RDW Coefficient of Variation 17.7 % (11.5-14.5); RDW Standard Deviation 52.9 fL (36.4-46.3); Red Blood Count 3.84 M/uL (4.7-6.1); White Blood Count 15.55 K/uL (4.8-10.8)
[2021-02-20 06:57] LABS: Albumin Globulin Ratio 0.9 (0.9-2); Albumin Level 2.8 gm/dl (3.4-5.0); BUN Creatinine Ratio 32.1 (10-20); Bilirubin,Total 0.7 mg/dl (0.2-1.0); Creatinine Clr Calc Pharmacy 62.3 ml/min; Est GFR (African American) 100.1 ml/min; Est GFR (Non-African American) 86.3 ml/min; Globulin 3.1 gm/dl (2.5-4.0); Magnesium 1.8 mg/dl (1.7-2.4); Potassium 3.7 mmol/L (3.5-5.1); Total Protein 5.9 gm/dl (6.0-8.3)
[2021-02-20] MEDS: ALBUT/IPRATROP 3MG/0.5MG NEB 3 ML VIAL NEB SCH ×4 (07:35→19:09)
[2021-02-20] MEDS ORDERED: PNEUMOCOCCAL Polysaccharide Vaccine 25mcg/0.5mL vial/Syr IM ONE (08:00)
[2021-02-20] MEDS: UMECLIDINIUM/VILANTEROL 62.5/25MCG 7 PUFFS/INHALER INH SCH (09:01)
[2021-02-20] MEDS: FLUTICASONE FUROATE 100MCG 14 PUFFS/INHALER INH SCH (09:01)
[2021-02-20] MEDS: guaiFENesin 200 MG TAB PEG SCH ×3 (09:02→21:00)
[2021-02-20] MEDS: TUBE FEEDING WATER FLUSH GT SCH ×4 (09:13→21:40)
[2021-02-20] MEDS: [UNRECOGNIZED DRUG - OTHER] PEG SCH ×3 (09:14→20:59)
[2021-02-20] MEDS: ENTERAL FEEDING PEG SCH ×3 (09:14→20:59)
[2021-02-20] MEDS: ATORVASTATIN 40 MG TAB PEG SCH (13:39)
[2021-02-20] MEDS: ASPIRIN 81 MG CHEW PEG SCH (13:39)
[2021-02-20] MEDS ORDERED: SODIUM CHLORIDE 0.9% 500 ML IV ONE (16:40)
--- NOTE | 2021-02-20 16:52 | Hospitalist Progress Note ---
Date of Service February 20, 2021 Assessment & Plan (1) Acute respiratory failure with hypoxia and hypercapnia: (2) Pneumonia: (3) Chronic pulmonary aspiration: (4) CAD (coronary artery disease): (5) Hx of aortic valve replacement: (6) Hypertension: (7) Hyperlipidemia: Plan: Patient is a 75 yr male with H/O CAD status post CABG x1 in 2017, severe aortic stenosis status post AVR in 2017, HTN, history of sinus bradycardia with intermittent LBBB, history of tobacco use, history of nasopharyngeal cancer S/P cisplatin, XRT and resulting in palate deformity and recurrent silent aspiration, history of recurrent aspiration pneumonia, chronic HFpEF, COPD, PEG tube in place who presents to ED secondary to shortness of breath and cough x2 days. Acute hypoxic respiratory failure with hypoxia and hypercapnia Bilateral interstitial pneumonia, likely aspiration Chronic pulmonary aspiration secondary to history of oropharyngeal cancer COPD S/P PEG tube NPO at baseline --CTA:No pulmonary emboli. Extensive chronic diffuse tree-in-bud and centrilob ular nodules redemonstrated compatible with an infectious or inflammatory pneumonitis/bronchiolitis. There are superimposed left greater than right multifocal groundglass and alveolar opacities compatible with pneumonia. Trace pleural effusions. Emphysema with bronchitis, tracheobronchial secretions with bibasilar mucous plugging. Mild mediastinal and hilar adenopathy, likely reactive. 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 Follows outpt ENT and dental, - needs to follow up with dental, missed follow up regarding maxillary obturator CAD S/P CABG H/P AVR HTN HLD Continue ASA, statin COPD Continue home inhalers DVT Px: Q heparin Code Status Full Code Code Status FULL CODE Admission and Anticipated Discharge Date Admission Date: February 19, 2021 Subjective Patient is seen and examined at bedside Cough improved today Denies any shortness of breath, dizziness, nausea, abdominal pain States having minimal pleuritic pain with breathing Currently on 6 L supplemental oxygen Review of Systems Review of Systems: All systems reviewed & are unremarkable except as noted in Subjective Physical Exam Physical Exam: Physical Exam: Vitals signs as noted above General Appearance:Thin, Chronic ill appearing, no apparent distress Head: normocephalic, Atraumatic Eyes: normal inspection, EOMI Neck: supple, Trachea midline Respiratory/Chest: Coarse decreased breath sounds, scattered rhonchi Cardiovascular: S1, S2, No murmur Abdomen/GI:Soft, Non tender, Bowel sounds present, +PEG tube Extremities/Musculoskeletal:normal inspection, no edema Neurologic/Psych:AAOX3, grossly no focal neurological deficits Skin: normal color, warm Results & Data Results & Data ([facility]) Vital Signs (Past 12 Hours) Vital Signs Temp Pulse Pulse Resp BP Pulse Ox 02/20/21 15:23 77 02/20/21 15:15 36.6 C 80 19 92/54 L 92 02/20/21 14:39 88 20 92 02/20/21 10:52 36.7 C 81 19 89/47 L 90 02/20/21 10:19 75 20 95 02/20/21 07:36 79 20 95 02/20/21 07:34 85 02/20/21 06:56 36.9 C 84 20 118/68 89 L Laboratory Results Short CBC 02/20/21 Range/Units 05:56 WBC 15.55 H (4.8-10.8) K/uL Hgb 9.7 L (14.0-18.0) g/dL Hct 31.4 L (42-52) % Plt Count 166 (130-400) K/uL BMP 02/20/21 05:56 Sodium 132 L Potassium 3.7 Chloride 95 L Carbon Dioxide 31 BUN 26 H Creatinine 0.81 Glucose 73 Calcium 8.0 L Cardiac Enzymes 02/19/21 02/19/21 Range/Units 16:04 22:09 Troponin I < 0.03 < 0.03 (0-0.04) ng/ml Liver Function 02/20/21 Range/Units 05:56 Total Bilirubin 0.7 (0.2-1.0) mg/dl AST 23 (13-39) U/L ALT 9 (7-52) U/L Alkaline Phosphatase 59 (34-104) U/L Albumin 2.8 L (3.4-5.0) gm/dl (1) Pneumonia Laterality: bilateral Lung location: unspecified part of lung Pneumonia type: due to unspecified organism Qualified Code(s): J18.9 - Pneumonia, unspecified organism
[2021-02-21] MEDS: PIPERACILLIN/TAZOBACTAM 3.375 GM in DEXTROSE 5% 100 ML IV SCH ×2 (00:54→08:53)
[2021-02-21] MEDS: DOXYCYCLINE HYCLATE 100 MG in DEXTROSE 5% 100 ML IV SCH ×2 (06:37→17:43)
[2021-02-21] MEDS: HEPARIN SOD 5,000 UNIT/0.5 ML VIAL SQ SCH ×3 (06:37→21:57)
[2021-02-21] MEDS: ALBUT/IPRATROP 3MG/0.5MG NEB 3 ML VIAL NEB SCH ×4 (07:23→19:25)
--- NOTE | 2021-02-21 07:41 | XRay Report ---
XR chest 1V portable CLINICAL HISTORY: Pneumonia COMPARISON STUDY: Chest radiograph and chest CT February 19, 2021. FINDINGS: Median sternotomy wires are noted. There is no pneumothorax. There are trace bilateral pleu ral effusions. Cardiomediastinal silhouette is stable. No evidence for pulmonary edema. Reticulonodul ar interstitial thickening in bilateral airspace opacities are noted. No significant change since fabian or exam is noted. IMPRESSION: No significant change in bilateral airspace opacities and reticulonodular interstitial t hickening consistent with an infectious process. ACT 112: Negative or not required by law. Electronically signed by: Yayo Kay M.D. 02/21/2021 7:40 AM
[2021-02-21] MEDS: TUBE FEEDING WATER FLUSH GT SCH ×4 (08:18→20:27)
[2021-02-21] MEDS: guaiFENesin 200 MG TAB PEG SCH ×3 (08:25→21:56)
[2021-02-21] MEDS: FLUTICASONE FUROATE 100MCG 14 PUFFS/INHALER INH SCH (08:25)
[2021-02-21] MEDS: UMECLIDINIUM/VILANTEROL 62.5/25MCG 7 PUFFS/INHALER INH SCH (08:25)
[2021-02-21 08:52] LABS: Hematocrit (blood only) 31.9 % (42-52); Mean Corpuscular Hemoglobin 25.6 pg (25-34); Mean Corpuscular Hgb Conc 31.3 g/dL (32-36); Mean Corpuscular Volume 81.8 fL (80-100); Platelet Count 185 K/uL (130-400); RDW Coefficient of Variation 17.3 % (11.5-14.5); RDW Standard Deviation 52.4 fL (36.4-46.3); White Blood Count 10.73 K/uL (4.8-10.8)
[2021-02-21] MEDS: ENTERAL FEEDING PEG SCH ×3 (08:53→17:46)
[2021-02-21] MEDS: [UNRECOGNIZED DRUG - OTHER] PEG SCH ×3 (08:53→17:46)
[2021-02-21 09:13] LABS: BUN Creatinine Ratio 24.7 (10-20); Calcium 8.1 mg/dl (8.5-10.1); Creatinine Clr Calc Pharmacy 67.9 ml/min; Est GFR (African American) 104.4 ml/min; Est GFR (Non-African American) 90.1 ml/min; Potassium 3.3 mmol/L (3.5-5.1)
[2021-02-21] MEDS ORDERED: POTASSIUM CHLORIDE 20 MEQ/15 ML UDC PO ONE (10:10)
[2021-02-21] MEDS: ATORVASTATIN 40 MG TAB PEG SCH (11:18)
[2021-02-21] MEDS: ASPIRIN 81 MG CHEW PEG SCH (11:58)
[2021-02-21] MEDS ORDERED: Nursing to Pharmacy Communication SCH (16:15)
[2021-02-21] MEDS: AMPICILLIN/SULBACTAM SOD 3,000 MG in DEXTROSE 5% 100 ML IV SCH ×2 (17:06→21:56)
--- NOTE | 2021-02-21 18:57 | Hospitalist Progress Note ---
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 Acute hypoxic respiratory failure with hypoxia and hypercapnia Bilateral interstitial pneumonia, likely aspiration Chronic pulmonary aspiration secondary to history of oropharyngeal cancer COPD S/P PEG tube NPO at baseline --CTA:No pulmonary emboli. Extensive chronic diffuse tree-in-bud and centrilob ular nodules redemonstrated compatible with an infectious or inflammatory pneumonitis/bronchiolitis. There are superimposed left greater than right multifocal groundglass and alveolar opacities compatible with pneumonia. Trace pleural effusions. Emphysema with bronchitis, tracheobronchial secretions with bibasilar mucous plugging. Mild mediastinal and hilar adenopathy, likely reactive. -Blood cultures negative to date Sputum culture pending Continue doxycycline, Zosyn>> transition to doxycycline, Unasyn Continue supplemental oxygen Pulmonary hygiene Gentle IV fluids as needed Aspiration precautions Leukocytosis normalized On tube feeds Slowly improving Currently requiring 3 L supplemental oxygen Needs 2 step pior to discharge H/O Nasopharyngeal cancer S/P Chemo, radiation in 2013 for definitive tx PEG tube flushes, drum filler consulted Follows outpt ENT and dental, - needs to follow up with dental, missed follow up regarding maxillary obturator CAD S/P CABG H/P AVR HTN HLD Continue ASA, statin COPD Continue home inhalers DVT Px: Q heparin Code Status Full Code Code Status FULL CODE Admission and Anticipated Discharge Date Admission Date: February 19, 2021 Subjective Patient is seen and examined at bedside States feeling better today Less pleuritic pain today Cough, dyspnea improving as well Less supplemental oxygen requirement today Review of Systems Review of Systems: All systems reviewed & are unremarkable except as noted in Subjective Physical Exam Physical Exam: Physical Exam: Vitals signs as noted above General Appearance:Thin, Chronic ill appearing, no apparent distress Head: normocephalic, Atraumatic Eyes: normal inspection, EOMI Neck: supple, Trachea midline Respiratory/Chest: Coarse decreased breath sounds, basal crackles cardiovascular: S1, S2, No murmur Abdomen/GI:Soft, Non tender, Bowel sounds present, +PEG tube Extremities/Musculoskeletal:normal inspection, no edema Neurologic/Psych:AAOX3, grossly no focal neurological deficits Skin: normal color, warm Results & Data Results & Data ([facility]) Vital Signs (Past 12 Hours) Vital Signs Temp Pulse Pulse Resp BP Pulse Ox 02/21/21 16:50 78 02/21/21 15:14 36.5 C 91 H 18 93/54 L 96 02/21/21 14:18 79 18 90 02/21/21 10:56 36.6 C 84 18 94/57 L 92 02/21/21 10:27 73 18 95 02/21/21 07:40 67 02/21/21 07:25 78 18 96 Laboratory Results Short CBC 02/21/21 Range/Units 08:33 WBC 10.73 (4.8-10.8) K/uL Hgb 10.0 L (14.0-18.0) g/dL Hct 31.9 L (42-52) % Plt Count 185 (130-400) K/uL BMP 02/21/21 08:33 Sodium 135 L Potassium 3.3 L Chloride 97 L Carbon Dioxide 32 BUN 18 Creatinine 0.73 Glucose 76 Calcium 8.1 L (1) Pneumonia Laterality: bilateral Lung location: unspecified part of lung Pneumonia type: due to unspecified organism Qualified Code(s): J18.9 - Pneumonia, unspecified organism
[2021-02-22] MEDS: AMPICILLIN/SULBACTAM SOD 3,000 MG in DEXTROSE 5% 100 ML IV SCH (04:37)
[2021-02-22] MEDS: DOXYCYCLINE HYCLATE 100 MG in DEXTROSE 5% 100 ML IV SCH ×2 (05:19→18:05)
[2021-02-22] MEDS: HEPARIN SOD 5,000 UNIT/0.5 ML VIAL SQ SCH ×3 (05:19→21:05)
[2021-02-22 06:54] LABS: Hematocrit (blood only) 33.8 % (42-52); Hemoglobin 10.5 g/dL (14.0-18.0); Mean Corpuscular Hemoglobin 25.3 pg (25-34); Mean Corpuscular Hgb Conc 31.1 g/dL (32-36); Mean Corpuscular Volume 81.4 fL (80-100); Mean Platelet Volume 9.3 fL (7.4-10.4); Platelet Count 203 K/uL (130-400); RDW Coefficient of Variation 17.1 % (11.5-14.5); RDW Standard Deviation 51.8 fL (36.4-46.3); Red Blood Count 4.15 M/uL (4.7-6.1); White Blood Count 9.66 K/uL (4.8-10.8)
[2021-02-22 07:29] LABS: BUN Creatinine Ratio 24.2 (10-20); Calcium 8.4 mg/dl (8.5-10.1); Creatinine Clr Calc Pharmacy 75.2 ml/min; Est GFR (African American) 108.8 ml/min; Est GFR (Non-African American) 93.9 ml/min; Potassium 3.6 mmol/L (3.5-5.1)
[2021-02-22] MEDS: ALBUT/IPRATROP 3MG/0.5MG NEB 3 ML VIAL NEB SCH ×4 (07:35→19:35)
[2021-02-22] MEDS: TUBE FEEDING WATER FLUSH GT SCH ×4 (08:52→19:37)
[2021-02-22] MEDS: UMECLIDINIUM/VILANTEROL 62.5/25MCG 7 PUFFS/INHALER INH SCH (08:52)
[2021-02-22] MEDS: FLUTICASONE FUROATE 100MCG 14 PUFFS/INHALER INH SCH (08:52)
[2021-02-22] MEDS: ENTERAL FEEDING PEG SCH ×3 (08:53→18:05)
[2021-02-22] MEDS: guaiFENesin 200 MG TAB PEG SCH ×3 (08:53→21:05)
[2021-02-22] MEDS: [UNRECOGNIZED DRUG - OTHER] PEG SCH ×3 (08:53→18:05)
[2021-02-22] MEDS: AMPICILLIN/SULBACTAM SOD 3,000 MG in 0.9 % SODIUM CHLORIDE 100 ML IV SCH ×3 (11:21→22:02)
[2021-02-22] MEDS: ASPIRIN 81 MG CHEW PEG SCH (11:22)
[2021-02-22] MEDS: ATORVASTATIN 40 MG TAB PEG SCH (11:22)
[2021-02-22] MEDS ORDERED: FAMOTIDINE 20 MG TAB PO PRN (14:39)
--- NOTE | 2021-02-22 14:40 | Hospitalist Progress Note ---
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 Acute hypoxic respiratory failure with hypoxia and hypercapnia Bilateral interstitial pneumonia, likely aspiration Chronic pulmonary aspiration secondary to history of oropharyngeal cancer COPD S/P PEG tube NPO at baseline --CTA:No pulmonary emboli. Extensive chronic diffuse tree-in-bud and centrilob ular nodules redemonstrated compatible with an infectious or inflammatory pneumonitis/bronchiolitis. There are superimposed left greater than right multifocal groundglass and alveolar opacities compatible with pneumonia. Trace pleural effusions. Emphysema with bronchitis, tracheobronchial secretions with bibasilar mucous plugging. Mild mediastinal and hilar adenopathy, likely reactive. -Blood cultures negative to date Sputum culture growing group B beta strep Continue doxycycline, Zosyn>> transition to doxycycline, Unasyn Continue supplemental oxygen Pulmonary hygiene IV fluids Aspiration precautions Leukocytosis normalized On tube feeds Currently on 2 L supplemental oxygen Needs 2 step prior to discharge Follow-up cultures H/O Nasopharyngeal cancer S/P Chemo, radiation in 2013 for definitive tx PEG tube flushes, veterinary dentist consulted Follows outpt ENT and dental, - needs to follow up with dental, missed follow up regarding maxillary obturator Transient Epistaxis Plan to hold heparin if recurrent Afrin as needed CAD S/P CABG H/P AVR HTN HLD Continue ASA, statin COPD Continue home inhalers DVT Px: SQ heparin Code Status Full Code Code Status FULL CODE Admission and Anticipated Discharge Date Admission Date: February 19, 2021 Subjective Patient is seen and examined at bedside States having heartburn and minimal epistaxis this morning Otherwise feels well Less cough Denies any dyspnea, chest pain Currently on 2 L supplemental oxygen Review of Systems Review of Systems: All systems reviewed & are unremarkable except as noted in Subjective Physical Exam Physical Exam: Physical Exam: Vitals signs as noted above General Appearance:Thin, Chronic ill appearing, no apparent distress Head: normocephalic, Atraumatic Eyes: normal inspection, EOMI Neck: supple, Trachea midline Respiratory/Chest: Coarse decreased breath sounds cardiovascular: S1, S2, No murmur Abdomen/GI:Soft, Non tender, Bowel sounds present, +PEG tube Extremities/Musculoskeletal:normal inspection, no edema Neurologic/Psych:AAOX3, grossly no focal neurological deficits Skin: normal color, warm Results & Data Results & Data ([facility]) Vital Signs (Past 12 Hours) Vital Signs Temp Pulse Pulse Resp BP Pulse Ox 02/22/21 12:15 36.8 C 72 19 82/48 L 98 02/22/21 11:29 78 20 95 02/22/21 10:29 72 02/22/21 07:41 36.8 C 73 19 112/69 97 02/22/21 07:36 72 12 95 02/22/21 04:00 36.6 C 72 22 105/58 L 97 Laboratory Results Short CBC 02/22/21 Range/Units 06:07 WBC 9.66 (4.8-10.8) K/uL Hgb 10.5 L (14.0-18.0) g/dL Hct 33.8 L (42-52) % Plt Count 203 (130-400) K/uL BMP 02/22/21 06:07 Sodium 136 Potassium 3.6 Chloride 97 L Carbon Dioxide 33 H BUN 16 Creatinine 0.66 Glucose 77 Calcium 8.4 L (1) Pneumonia Laterality: bilateral Lung location: unspecified part of lung Pneumonia type: due to unspecified organism Qualified Code(s): J18.9 - Pneumonia, unspecified organism
[2021-02-22] MEDS ORDERED: SODIUM CHLORIDE 0.9% 1000ML 1,000 ML IV SCH (14:45)
[2021-02-22] MEDS: OXYMETAZOLINE 0.05% 30 ML BTL PRN (16:46)
[2021-02-22] MEDS ORDERED: methylPREDNISolone 40 MG in SYRINGE 0 ML IV STA (20:36)
--- NOTE | 2021-02-22 20:59 | XRay Report ---
XR chest 1V portable CLINICAL HISTORY: low o2. Follow-up interstitial and alveolar opacity COMPARISON STUDY: 02/21/2021 TECHNIQUE: 1 view of the chest FINDINGS: Single frontal view of the chest demonstrates the cardiomediastinal silhouette to be within normal li mits. The patient is status post previous cardiothoracic surgery. Compared to the previous study, pat shoshana interstitial and alveolar opacities are again seen bilaterally. There has been interval developme nt of left basilar atelectasis. Is also evidence for small left pleural effusion. There is no evidenc e for vascular congestion. There is no acute osseous pathology. IMPRESSION: No significant interval change in patchy interstitial and alveolar opacities bilaterally. There has been interval development of left basilar atelectasis and small left pleural effusion. ACT 112: Negative or not required by law. Electronically signed by: Mil Salazar M.D. 02/22/2021 8:57 PM
[2021-02-22] MEDS ORDERED: MAGNESIUM SULFATE / D5W 1 GM/100 ML BAG IV ONE ×2 (21:00→22:00)
[2021-02-22 21:28] LABS: Base Excess ABG 5.8 mEq/L (-9-1.8); HCO3 ABG 30 mmol/L (19-24); Oxygen Saturation ABG 94.4 % (90-95); PCO2 ABG 43 mmHg (35-46); PO2 ABG 67 mmHg (80-95); pH ABG 7.46 (7.35-7.45)
[2021-02-22 21:31] LABS: Allen Test Pos (Pos)
[2021-02-22] MEDS ORDERED: FUROSEMIDE INJ 20 MG/2 ML VIAL IV ONE (22:00)
[2021-02-22] MEDS: POTASSIUM CHLORIDE / WTR 10 MEQ/100 ML PLCT IV SCH (22:43)
[2021-02-22] MEDS ORDERED: POTASSIUM CHLORIDE 20 MEQ/15 ML UDC PEG STA (23:46)
[2021-02-23] MEDS: POTASSIUM CHLORIDE / WTR 10 MEQ/100 ML PLCT IV SCH ×2 (00:14→00:16)
[2021-02-23] MEDS: AMPICILLIN/SULBACTAM SOD 3,000 MG in 0.9 % SODIUM CHLORIDE 100 ML IV SCH ×4 (04:53→21:56)
[2021-02-23] MEDS: HEPARIN SOD 5,000 UNIT/0.5 ML VIAL SQ SCH ×2 (05:41→12:55)
[2021-02-23] MEDS: DOXYCYCLINE HYCLATE 100 MG in DEXTROSE 5% 100 ML IV SCH ×2 (05:42→18:02)
[2021-02-23] MEDS: ALBUT/IPRATROP 3MG/0.5MG NEB 3 ML VIAL NEB SCH ×4 (08:31→19:15)
[2021-02-23] MEDS: guaiFENesin 200 MG TAB PEG SCH ×3 (08:44→21:53)
[2021-02-23] MEDS: FLUTICASONE FUROATE 100MCG 14 PUFFS/INHALER INH SCH (08:44)
[2021-02-23] MEDS: TUBE FEEDING WATER FLUSH GT SCH ×4 (08:44→21:54)
[2021-02-23] MEDS: UMECLIDINIUM/VILANTEROL 62.5/25MCG 7 PUFFS/INHALER INH SCH (08:45)
[2021-02-23] MEDS: [UNRECOGNIZED DRUG - OTHER] PEG SCH ×3 (08:45→17:35)
[2021-02-23] MEDS: ENTERAL FEEDING PEG SCH ×3 (08:45→17:35)
[2021-02-23 09:14] LABS: BUN Creatinine Ratio 26.3 (10-20); Calcium 8.4 mg/dl (8.5-10.1); Creatinine Clr Calc Pharmacy 63.9 ml/min; Est GFR (African American) 102.7 ml/min; Est GFR (Non-African American) 88.6 ml/min; Potassium 4.1 mmol/L (3.5-5.1)
[2021-02-23] MEDS: ATORVASTATIN 40 MG TAB PEG SCH (11:16)
[2021-02-23] MEDS: ASPIRIN 81 MG CHEW PEG SCH (11:21)
--- NOTE | 2021-02-23 17:40 | Hospitalist Progress Note ---
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 Acute hypoxic respiratory failure with hypoxia and hypercapnia Bilateral interstitial pneumonia, likely aspiration Chronic pulmonary aspiration secondary to history of oropharyngeal cancer COPD S/P PEG tube NPO at baseline --CTA:No pulmonary emboli. Extensive chronic diffuse tree-in-bud and centrilob ular nodules redemonstrated compatible with an infectious or inflammatory pneumonitis/bronchiolitis. There are superimposed left greater than right multifocal groundglass and alveolar opacities compatible with pneumonia. Trace pleural effusions. Emphysema with bronchitis, tracheobronchial secretions with bibasilar mucous plugging. Mild mediastinal and hilar adenopathy, likely reactive. -Blood cultures negative to date Sputum culture growing group B beta strep Continue doxycycline, Zosyn>> transition to doxycycline, Unasyn Continue supplemental oxygen Pulmonary hygiene Received IV fluids Aspiration precautions Leukocytosis normalized On tube feeds Currently on 5 L supplemental oxygen Needs 2 step prior to discharge Continue current management H/O Nasopharyngeal cancer S/P Chemo, radiation in 2013 for definitive tx PEG tube flushes, dental practice manager consulted Follows outpt ENT and dental, - needs to follow up with dental, missed follow up regarding maxillary obturator Transient Epistaxis Plan to hold heparin if recurrent Afrin as needed Hb stable CAD S/P CABG H/P AVR HTN HLD Continue ASA, statin COPD Continue home inhalers DVT Px: SQ heparin Code Status Full Code Code Status FULL CODE Admission and Anticipated Discharge Date Admission Date: February 19, 2021 Subjective Patient is seen and examined at bedside States feeling well today No new complaints Denies chest pain, shortness of breath, dizziness, nausea, abdominal pain Less cough today Currently on 5 L supplemental oxygen Review of Systems Review of Systems: All systems reviewed & are unremarkable except as noted in Subjective Physical Exam Physical Exam: Physical Exam: Vitals signs as noted above General Appearance:Thin, Chronic ill appearing, no apparent distress Head: normocephalic, Atraumatic Eyes: normal inspection, EOMI Neck: supple, Trachea midline Respiratory/Chest: Coarse decreased breath sounds cardiovascular: S1, S2, No murmur Abdomen/GI:Soft, Non tender, Bowel sounds present, +PEG tube Extremities/Musculoskeletal:normal inspection, no edema Neurologic/Psych:AAOX3, grossly no focal neurological deficits Skin: normal color, warm Results & Data Results & Data ([facility]) Vital Signs (Past 12 Hours) Vital Signs Temp Pulse Resp BP Pulse Ox 02/23/21 15:56 36.6 C 73 21 118/69 97 02/23/21 15:19 87 22 96 02/23/21 12:11 36.6 C 79 19 100/62 94 02/23/21 11:50 66 18 94 02/23/21 08:32 61 16 97 02/23/21 08:01 36.5 C 66 20 101/64 91 Laboratory Results [facility] 02/23/21 07:54 Sodium 133 L Potassium 4.1 Chloride 95 L Carbon Dioxide 33 H BUN 20 Creatinine 0.76 Glucose 134 H Calcium 8.4 L (1) Pneumonia Laterality: bilateral Lung location: unspecified part of lung Pneumonia type: due to unspecified organism Qualified Code(s): J18.9 - Pneumonia, unspecified organism
[2021-02-23] MEDS: OXYMETAZOLINE 0.05% 30 ML BTL PRN (18:31)
--- NOTE | 2021-02-23 21:09 | Communication Note ---
Date of Service: February 23, 2021 Made aware by RN of epistaxis episode. No headache complaints as per RN. CBC now Hold aspirin and Heparin subcutaneous for now. Will relay to AM provider.
[2021-02-23 21:38] LABS: Basophils # (auto) 0.01 K/uL (0-0.2); Basophils % (auto) 0.1 %; Hematocrit (blood only) 31.7 % (42-52); Hemoglobin 9.9 g/dL (14.0-18.0); Immature Granulocytes # (auto) 0.05 K/uL (0.00-0.02); Immature Granulocytes % (auto) 0.5 %; Lymphocytes # (auto) 0.85 K/uL (1.2-3.4); Lymphocytes % (auto) 8.1 %; Mean Corpuscular Hemoglobin 25.3 pg (25-34); Mean Corpuscular Hgb Conc 31.2 g/dL (32-36); Mean Corpuscular Volume 81.1 fL (80-100); Mean Platelet Volume 9.2 fL (7.4-10.4); Monocytes % (auto) 4.8 %; Neutrophils # (auto) 9.07 K/uL (1.4-6.5); Neutrophils % (auto) 86.5 %; Platelet Count 239 K/uL (130-400); RDW Coefficient of Variation 17.3 % (11.5-14.5); RDW Standard Deviation 51.7 fL (36.4-46.3); Red Blood Count 3.91 M/uL (4.7-6.1); White Blood Count 10.48 K/uL (4.8-10.8)
[2021-02-24] MEDS: AMPICILLIN/SULBACTAM SOD 3,000 MG in 0.9 % SODIUM CHLORIDE 100 ML IV SCH ×4 (04:55→21:46)
[2021-02-24] MEDS: DOXYCYCLINE HYCLATE 100 MG in DEXTROSE 5% 100 ML IV SCH (05:54)
[2021-02-24] MEDS: ALBUT/IPRATROP 3MG/0.5MG NEB 3 ML VIAL NEB SCH ×4 (07:35→20:10)
[2021-02-24] MEDS: TUBE FEEDING WATER FLUSH GT SCH ×4 (08:52→21:46)
[2021-02-24] MEDS: FLUTICASONE FUROATE 100MCG 14 PUFFS/INHALER INH SCH (08:52)
[2021-02-24] MEDS: ENTERAL FEEDING PEG SCH ×3 (08:53→17:33)
[2021-02-24] MEDS: [UNRECOGNIZED DRUG - OTHER] PEG SCH ×3 (08:53→17:33)
[2021-02-24] MEDS: UMECLIDINIUM/VILANTEROL 62.5/25MCG 7 PUFFS/INHALER INH SCH (08:53)
[2021-02-24] MEDS: guaiFENesin 200 MG TAB PEG SCH ×3 (08:53→21:47)
[2021-02-24 09:16] LABS: BUN Creatinine Ratio 33.3 (10-20); Calcium 8.6 mg/dl (8.5-10.1); Creatinine Clr Calc Pharmacy 59.9 ml/min; Est GFR (African American) 100.1 ml/min; Est GFR (Non-African American) 86.3 ml/min; Potassium 3.9 mmol/L (3.5-5.1)
[2021-02-24] MEDS: ATORVASTATIN 40 MG TAB PEG SCH (11:48)
--- NOTE | 2021-02-24 17:39 | Hospitalist Progress Note ---
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 Acute hypoxic respiratory failure with hypoxia and hypercapnia Bilateral interstitial pneumonia, likely aspiration Chronic pulmonary aspiration secondary to history of oropharyngeal cancer COPD S/P PEG tube NPO at baseline --CTA:No pulmonary emboli. Extensive chronic diffuse tree-in-bud and centrilob ular nodules redemonstrated compatible with an infectious or inflammatory pneumonitis/bronchiolitis. There are superimposed left greater than right multifocal groundglass and alveolar opacities compatible with pneumonia. Trace pleural effusions. Emphysema with bronchitis, tracheobronchial secretions with bibasilar mucous plugging. Mild mediastinal and hilar adenopathy, likely reactive. -Blood cultures negative to date Sputum culture growing group B beta strep Continue doxycycline, Zosyn>> transition to doxycycline, Unasyn Continue supplemental oxygen Pulmonary hygiene Received IV fluids Aspiration precautions Leukocytosis normalized On tube feeds Currently on 3 L supplemental oxygen Plan for 2 step tomorrow PT/OT prior to discharge H/O Nasopharyngeal cancer S/P Chemo, radiation in 2013 for definitive tx PEG tube flushes, napkin band wrapper consulted Follows outpt ENT and dental, - needs to follow up with dental, missed follow up regarding maxillary obturator Transient Epistaxis Afrin as needed Held Aspirin, SQ Heparin Resume aspirin tomorrow if no recurrence CAD S/P CABG H/P AVR HTN HLD Continue statin Resume Aspririn as able COPD Continue home inhalers DVT Px: SQ heparin Code Status Full Code Code Status FULL CODE Admission and Anticipated Discharge Date Admission Date: February 19, 2021 Subjective Patient is seen and examined at bedside Denies any epistaxis today Requiring 3 L of supplemental oxygen currently Denies chest pain, shortness of breath, dizziness, nausea, abdominal pain cough continues to improve Review of Systems Review of Systems: All systems reviewed & are unremarkable except as noted in Subjective Physical Exam Physical Exam: Physical Exam: Vitals signs as noted above General Appearance:Thin, Chronic ill appearing, no apparent distress Head: normocephalic, Atraumatic Eyes: normal inspection, EOMI Neck: supple, Trachea midline Respiratory/Chest: Coarse decreased breath sounds cardiovascular: S1, S2, No murmur Abdomen/GI:Soft, Non tender, Bowel sounds present, +PEG tube Extremities/Musculoskeletal:normal inspection, no edema Neurologic/Psych:AAOX3, grossly no focal neurological deficits Skin: normal color, warm Results & Data Results & Data ([facility]) Vital Signs (Past 12 Hours) Vital Signs Temp Pulse Pulse Resp BP Pulse Ox 02/24/21 15:58 36.9 C 73 16 120/63 95 02/24/21 14:15 71 18 91 02/24/21 12:00 36.4 C L 71 20 84/49 L 95 02/24/21 10:20 70 18 94 02/24/21 07:35 59 L 18 97 02/24/21 07:33 36.5 C 61 15 137/80 96 Laboratory Results Short CBC 02/23/21 Range/Units 21:29 WBC 10.48 (4.8-10.8) K/uL Hgb 9.9 L (14.0-18.0) g/dL Hct 31.7 L (42-52) % Plt Count 239 (130-400) K/uL BMP 02/24/21 08:27 Sodium 135 L Potassium 3.9 Chloride 96 L Carbon Dioxide 34 H BUN 27 H Creatinine 0.81 Glucose 74 Calcium 8.6 (1) Pneumonia Laterality: bilateral Lung location: unspecified part of lung Pneumonia type: due to unspecified organism Qualified Code(s): J18.9 - Pneumonia, unspecified organism
[2021-02-25] MEDS: AMPICILLIN/SULBACTAM SOD 3,000 MG in 0.9 % SODIUM CHLORIDE 100 ML IV SCH ×2 (04:17→09:20)
[2021-02-25 07:17] LABS: Hematocrit (blood only) 34.7 % (42-52); Hemoglobin 10.7 g/dL (14.0-18.0); Mean Corpuscular Hemoglobin 25.4 pg (25-34); Mean Corpuscular Hgb Conc 30.8 g/dL (32-36); Mean Corpuscular Volume 82.4 fL (80-100); Platelet Count 287 K/uL (130-400); RDW Coefficient of Variation 17.6 % (11.5-14.5); RDW Standard Deviation 53.3 fL (36.4-46.3); Red Blood Count 4.21 M/uL (4.7-6.1); White Blood Count 7.58 K/uL (4.8-10.8)
[2021-02-25 07:35] LABS: BUN Creatinine Ratio 30.9 (10-20); Calcium 8.3 mg/dl (8.5-10.1); Creatinine Clr Calc Pharmacy 71.9 ml/min; Est GFR (African American) 107.5 ml/min; Est GFR (Non-African American) 92.8 ml/min; Potassium 3.8 mmol/L (3.5-5.1)
[2021-02-25] MEDS: ALBUT/IPRATROP 3MG/0.5MG NEB 3 ML VIAL NEB SCH ×2 (08:07→10:38)
[2021-02-25] MEDS: UMECLIDINIUM/VILANTEROL 62.5/25MCG 7 PUFFS/INHALER INH SCH (09:03)
[2021-02-25] MEDS: FLUTICASONE FUROATE 100MCG 14 PUFFS/INHALER INH SCH (09:03)
[2021-02-25] MEDS: guaiFENesin 200 MG TAB PEG SCH ×2 (09:04→13:59)
[2021-02-25] MEDS: ENTERAL FEEDING PEG SCH ×2 (09:08→10:26)
[2021-02-25] MEDS: [UNRECOGNIZED DRUG - OTHER] PEG SCH ×2 (09:08→10:26)
[2021-02-25] MEDS: TUBE FEEDING WATER FLUSH GT SCH ×2 (10:48→13:59)
[2021-02-25] MEDS: ATORVASTATIN 40 MG TAB PEG SCH (12:25)
--- NOTE | 2021-02-25 12:39 | Hospitalist Progress Note ---
Date of Service February 25, 2021 Assessment & Plan (1) Acute respiratory failure with hypoxia and hypercapnia: (2) Pneumonia: (3) Chronic pulmonary aspiration: (4) CAD (coronary artery disease): (5) Hx of aortic valve replacement: (6) Hypertension: (7) Hyperlipidemia: Plan: per Dr. 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 Acute hypoxic respiratory failure with hypoxia and hypercapnia Bilateral interstitial pneumonia, likely aspiration Chronic pulmonary aspiration secondary to history of oropharyngeal cancer COPD S/P PEG tube NPO at baseline --CTA:No pulmonary emboli. Extensive chronic diffuse tree-in-bud and centrilobular nodules redemonstrated compatible with an infectious or inflammatory pneumonitis/bronchiolitis. There are superimposed left greater than right multifocal groundglass and alveolar opacities compatible with pneumonia. Trace pleural effusions. Emphysema with bronchitis, tracheobronchial secretions with bibasilar mucous plugging. Mild mediastinal and hilar adenopathy, likely reactive. -Blood cultures negative Sputum culture (+) group B beta strep given doxycycline, Zosyn>> transitioned to doxycycline, Unasyn--> completed 7 day course Leukocytosis normalized On tube feeds Currently on 2 L supplemental oxygen discharge plan: Augmentin x 3 more days Incentive spirometry 2 L of o2 via nasal cannula ff up with PCP within 1 week H/O Nasopharyngeal cancer S/P Chemo, radiation in 2013 for definitive tx PEG tube Follows outpt ENT and dental, - needs to follow up with dental, missed follow up regarding maxillary obturator Transient Epistaxis Afrin as needed resolved resume ASA ocean nasal spray q1h CAD S/P CABG H/P AVR HTN HLD Continue statin, ASA COPD Continue home inhalers Disposition d/c home with home health services ff up with PCP in 1 week plan of care discussed with patient in detail and at length all questions answered he is understanding, agreeable, comfortable with the plan of care Admission and Anticipated Discharge Date Admission Date: February 19, 2021 Subjective ff up for acute hypoxic respiratory failure, etc seen resting in bed, comfortable not in distress on 2 L nasal cannula in good spirits states he feels much better overall denies dyspnea, has occasional dry cough no chest pain, dyspnea, palpitations, dizziness no other symptoms states he is ready and would like to be discharged today Review of Systems Review of Systems: all noted and negative except for above Physical Exam Physical Exam: General- oriented x 3, not in distress, speaks in sentences with no effort or accessory muscle use Eyes- anicteric Neck- no JVD Lungs- mild crackles at the bases no wheezing good air entry bilaterally Heart- normal rate, regular rhythm; no murmurs Abdomen- normal bowel sounds, nondistended, soft, nontender Extremities- no pretibial edema, no calf tenderness Neuro- alert, oriented x 3; no gross focal neurologic deficits Skin- warm & dry Results & Data Results & Data ([facility]) Vital Signs (Past 12 Hours) Vital Signs Temp Pulse Pulse Pulse Pulse Pulse Pulse 02/25/21 11:35 36.7 C 77 02/25/21 10:38 77 02/25/21 10:22 74 91 H 77 77 02/25/21 07:42 71 02/25/21 04:10 36.6 C 76 Resp Resp Resp Resp Resp BP Pulse Ox 02/25/21 11:35 20 107/66 70 L 02/25/21 10:38 20 94 02/25/21 10:22 22 22 20 20 02/25/21 07:42 02/25/21 04:10 20 160/74 H 91 Pulse Ox Pulse Ox Pulse Ox Pulse Ox 02/25/21 11:35 02/25/21 10:38 02/25/21 10:22 94 85 L 94 92 02/25/21 07:42 02/25/21 04:10 all noted and reviewed including below (1) Pneumonia Laterality: bilateral Lung location: unspecified part of lung Pneumonia type: due to unspecified organism Qualified Code(s): J18.9 - Pneumonia, unspecified organism
[2021-02-25] MEDS ORDERED: ALBUT/IPRATROP 3MG/0.5MG NEB 3 ML VIAL NEB PRN (12:43)
[2021-02-25] MEDS ORDERED: SODIUM CHLORIDE 0.65% NA SOLN 45 ML (OCEAN) PRN (12:45)
--- NOTE | 2021-02-25 13:04 | Discharge Summary ---
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 He states, "this is my fifth time with pneumonia." Of significance he was last hospitalized in our facility on 08/2020 due to aspiration pneumonia. He also had hospitalization in June due to aspiration pneumonia. Over the past 2 days he he has noticed productive cough purulent sputum, chest congestion, shortness of breath at rest and with exertion, chest pain with cough and deep breathing, inability to take a deep breath. He currently has a PEG tube in place and does not take anything orally. He does nutritional feedings and takes his meds via his tube. He does sleep flat in bed and on his left side, but does not elevate his head due to comfort. He complains of chills but denies any documented fever or sweats. He denies any lightheadedness, dizziness, hemoptysis, palpitations, nausea, vomiting, abdominal pain, melena, hematochezia, change in urinary habits. He does have liquid BM secondary to tube feeding. Last BM 10 minutes ago. He denies a change in weight as he weighs himself daily. His baseline weight is 122. He denies any lower extremity swelling. He denies any sick contacts that he lives at home alone. He is vaccinated for COVID. EMS was summoned and patient was 85% on room air requiring nonrebreather. Currently in ED he saturating at 94% on 6 L of O2. Lab work notable for leukocytosis 21k, H&H 10.9 and 34.7, VBG pH 7.4, PCO2 59, sodium 131, BUN 40, creatinine 1.04, procalcitonin 10.52. He received IV cefepime in ED. Chest x-ray concerning for COPD with bilateral alveolar opacities concerning for pneumonia. His influenza, RSV and COVID panel was negative. Admission Exam (Per Admitting) Constitutional Physical Exam: Constitutional: Thin, frail, elderly male, vitals as above, NAD, sitting up in bed, pleasant, conversing easily, speaks in full sentences Head: Normocephalic, Atraumatic Eyes: PERRL, conjunctivae normal, anicteric sclerae ENMT: external ear and nose normal, oropharynx normal Neck: trachea midline, no thyromegaly normal visual inspection Respiratory: normal respiratory effort, on 6 L O2 via OxiMax, bilateral rales and rhonchi throughout, decreased breath sounds at bases, positive expiratory wheeze Normal insp/exp effort, no accessory muscle use Cardiovascular: RRR, no murmur, no edema Vessels: no JVD or carotid bruit Chest: normal inspection of chest Abdomen: normal bowel sounds, soft, nontender, no hepatosplenomegaly , +peg tube with mild chronic erythema, no drainage Musculoskeletal: no cyanosis or clubbing, extremities motor strength 5/5 Skin: no rashes, warm and dry normal turgor Neurologic: PERRL, EOMI, accommodation nl, no face palsy, no dysarthria CN's II-XI intact bilaterally and moves all extremities Psychiatric: A+Ox3, euthymic affect Lymphatic: no cervical or axillary lymphadenopathy : deferred Discharge Data Consultations 02/19/21 12:39 ED Decision to Admit Stat Procedures Performed CT angio chest PE protocol CT DOSE: 248.42 mGy.cm HISTORY: 75 years-old Male with hx of cancer, hypoxia, chest pain. Acute hypoxia with chest pain. History of lung cancer TECHNIQUE: Multiple CTA images of the chest were obtained after the intravenous administration of 110 ml Optiray. Coronal and sagittal MIPS were obtained from the axial data set and were submitted for review. All measurements were obtained according to NASCET criteria. A dose lowering technique was utilized adhering to the principles of ALARA. COMPARISON: CTA chest 08/18/2020 FINDINGS: CTA: The heart is normal in size. There is no pericardial effusion. Moderate to extensive coronary artery calcifications. Aortic valvular endograft. Prior median sternotomy with suggested CABG. Atherosclerosis of the thoracic aorta with patency of the imaged great vessels. Satisfactory opacification of the pulmonary artery. No filling defects identified to suggest thromboembolic disease. CT CHEST: Unremarkable thyroid. Mildly enlarged mediastinal and hilar lymph nodes include pretracheal lymph nodes measuring up to 1.4 cm. Trace pleural effusions. No pneumothorax. Emphysema with chronic diffuse tree-in-bud and centrilobular nodules redemonstrated. Bronchitis with moderate bronchial wall thickening and tracheobronchial secretions with bibasilar mucous plugging. Patchy multifocal air mixed groundglass and airspace opacities, left greater than right are noted within all lobes bilaterally. Consolidation with air bronchograms of the medial segment right middle lobe. Gastrostomy tube is partially imaged. Scattered hypodense foci of the liver suggestive of probable cysts are again noted measuring up to 11 mm. Unremarkable soft tissues. Degenerative changes of the spine and shoulders. No destructive bone lesions identified. IMPRESSION: 1. No pulmonary emboli. 2. Extensive chronic diffuse tree-in-bud and centrilobular nodules redemonstrated compatible with an infectious or inflammatory pneumonitis/bronchiolitis. There are superimposed left greater than right multifocal groundglass and alveolar opacities compatible with pneumonia. 3. Trace pleural effusions. 4. Emphysema with bronchitis, tracheobronchial secretions with bibasilar mucous plugging. 5. Mild mediastinal and hilar adenopathy, likely reactive. ACT 112: Negative or not required by law. The above report was generated using voice recognition software. It may contain grammatical, syntax or spelling errors. Electronically signed by: Marcel Cloud M.D. 02/19/2021 3:37 PM XR chest 1V portable CLINICAL HISTORY: low o2. Follow-up interstitial and alveolar opacity COMPARISON STUDY: 02/21/2021 TECHNIQUE: 1 view of the chest FINDINGS: Single frontal view of the chest demonstrates the cardiomediastinal silhouette to be within normal limits. The patient is status post previous cardiothoracic surgery. Compared to the previous study, patchy interstitial and alveolar opacities are again seen bilaterally. There has been interval development of left basilar atelectasis. Is also evidence for small left pleural effusion. There is no evidence for vascular congestion. There is no acute osseous pathology. IMPRESSION: No significant interval change in patchy interstitial and alveolar opacities bilaterally. There has been interval development of left basilar atelectasis and small left pleural effusion. ACT 112: Negative or not required by law. Electronically signed by: Mil Salazar M.D. 02/22/2021 8:57 PM Hospital Course (1) Acute respiratory failure with hypoxia and hypercapnia: (2) Pneumonia: (3) Chronic pulmonary aspiration: (4) CAD (coronary artery disease): (5) Hx of aortic valve replacement: (6) Hypertension: (7) Hyperlipidemia: per Dr. 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 Acute hypoxic respiratory failure with hypoxia and hypercapnia Bilateral interstitial pneumonia, likely aspiration Chronic pulmonary aspiration secondary to history of oropharyngeal cancer COPD S/P PEG tube NPO at baseline --CTA:No pulmonary emboli. Extensive chronic diffuse tree-in-bud and centrilobular nodules redemonstrated compatible with an infectious or inflammatory pneumonitis/bronchiolitis. There are superimposed left greater than right multifocal groundglass and alveolar opacities compatible with pneumonia. Trace pleural effusions. Emphysema with bronchitis, tracheobronchial secretions with bibasilar mucous plugging. Mild mediastinal and hilar adenopathy, likely reactive. -Blood cultures negative Sputum culture (+) group B beta strep given doxycycline, Zosyn>> transitioned to doxycycline, Unasyn--> completed 7 day course Leukocytosis normalized On tube feeds Currently on 2 L supplemental oxygen discharge plan: Augmentin x 3 more days Incentive spirometry 2 L of o2 via nasal cannula ff up with PCP within 1 week H/O Nasopharyngeal cancer S/P Chemo, radiation in 2013 for definitive tx PEG tube Follows outpt ENT and dental, - needs to follow up with dental, missed follow up regarding maxillary obturator Transient Epistaxis Afrin as needed resolved resume ASA ocean nasal spray q1h CAD S/P CABG H/P AVR HTN HLD Continue statin, ASA COPD Continue home inhalers Disposition d/c home with home health services ff up with PCP in 1 week plan of care discussed with patient in detail and at length all questions answered he is understanding, agreeable, comfortable with the plan of care
== END 2021-02-25 15:37 | disposition home health service (06) | DRG 177 ==
LOC: ED 10:29 → EDINP 12:59 → SUATTDRO 12:59 → 2S 18:40

== ENCOUNTER 2021-09-07 21:26 | Inpatient (IN) ==
[2021-09-07] MEDS ORDERED: ACETAMINOPHEN 1,000 MG/100 ML VIAL IV STA (21:49)
[2021-09-07] MEDS ORDERED: methylPREDNISolone 125 MG/2 ML VIAL IV STA (21:49)
[2021-09-07] MEDS ORDERED: ALBUT/IPRATROP 3MG/0.5MG NEB 3 ML VIAL NEB STA (21:49)
[2021-09-07] MEDS ORDERED: PIPERACILLIN/TAZOBACTAM 4.5 GM/120 ML BAG IV ONE (22:00)
[2021-09-07 22:09] LABS: Basophils # (auto) 0.04 K/uL (0-0.2); Basophils % (auto) 0.3 %; Eosinophils # (auto) 0.02 K/uL (0-0.50); Eosinophils % (auto) 0.2 %; Hematocrit (blood only) 43.7 % (40.1-51.0); Hemoglobin 13.2 g/dl (14.0-18.0); Immature Granulocytes # (auto) 0.13 K/uL (0.00-0.02); Immature Granulocytes % (auto) 1.1 %; Lymphocytes # (auto) 0.95 K/uL (1.2-3.4); Mean Corpuscular Hemoglobin 28.1 pg (25.0-34.0); Mean Corpuscular Hgb Conc 30.2 g/dL (32.0-36.0); Mean Platelet Volume 10.9 fL (9.4-12.4); Monocytes # (auto) 1.19 K/uL (0.24-0.82); Neutrophils # (auto) 9.56 K/uL (1.4-6.5); Neutrophils % (auto) 80.4 %; Platelet Count 155 K/uL (130-400); RDW Coefficient of Variation 16.5 % (11.5-14.5); RDW Standard Deviation 54.6 fL (36.4-46.3); White Blood Count 11.89 K/ul (4.8-10.8)
[2021-09-07] MEDS ORDERED: OPTIRAY 320 125ml IV ONE (22:14)
[2021-09-07 22:17] LABS: iSTAT Creatinine 1.2 mg/dl (0.6-1.3); iSTAT Ionized Calcium 1.21 mmol/l (1.12-1.32); iSTAT Potassium 4.3 mmol/L (3.3-5.0)
[2021-09-07 22:26] LABS: Partial Thromboplastin Ratio 1.1; Partial Thromboplastin Time 29.6 Seconds (21.0-31.0); Prothrombin Time 10.7 Seconds (9.0-12.0)
[2021-09-07 22:41] LABS: Albumin Level 4.3 gm/dl (3.4-5.0); BUN Creatinine Ratio 46.8 (10-20); Bilirubin,Total 0.7 mg/dl (0.2-1.0); Creatinine Clr Calc Pharmacy 42.4 ml/min; Est GFR (African American) 64.6 ml/min; Est GFR (Non-African American) 55.7 ml/min; Globulin 4.3 gm/dl (2.5-4.0); Magnesium 2.3 mg/dl (1.7-2.4); Potassium 4.1 mmol/L (3.5-5.1); Total Protein 8.6 gm/dl (6.0-8.3); Troponin I High Sensitivity 25.4 pg/ml (0-20)
[2021-09-07 22:49] LABS: Appearance Urine Clear (Clear); Bacteria Urine Automated Negative (Negative); Bilirubin Urine Negative (Negative); Blood Urine Negative (Negative); Color Urine Yellow; Glucose Urine UA Negative (Negative); Ketones Urine Negative (Negative); Leukocyte Esterase Urine Negative (Negative); Nitrite Urine Negative (Negative); Protein Urine 2+ (Negative); RBC Urine Automated 0-4 /hpf (0-4); Specific Gravity Urine 1.035 (1.000-1.030); Urobilinogen Urine Negative (Negative); pH Urine 6.5 (4.5-7.5)
[2021-09-07] MEDS ORDERED: SODIUM CHLORIDE 0.9% 1000ML 2,000 ML IV ONE (22:51)
[2021-09-07 22:52] LABS: Base Excess VBG 10.4 mEq/L; HCO3 VBG 37 mmol/L; Oxygen Saturation VBG 61.2 %; PCO2 VBG 59 mmHg (38-50); PO2 VBG 33 mmHg; pH VBG 7.41 (7.36-7.41)
[2021-09-07 22:57] LABS: Influenza A virus by PCR Negative (Neg); Influenza B virus by PCR Negative (Neg); RSV by PCR Negative (Neg); SARS CoV2 RNA(COVID-19) InHosp NEGATIVE (Negative)
[2021-09-07] MEDS ORDERED: DOXYCYCLINE HYCLATE 100 MG in DEXTROSE 5% 100 ML IV STA (23:04)
--- NOTE | 2021-09-07 23:14 | Emergency Department Note ---
History of Present Illness General Chief Complaint: Shortness of Breath/Dyspnea Stated Complaint: CHEST CONGESTION Time Seen by Provider: 09/07/21 21:45 Source: family (son) History of Present Illness Provider Complaint: shortness of breath Onset (ago): day(s) (1) Severity: severe Consistency/Duration: + progressively worsening Exacerbated By: + coughing Known history of: recurrent pneumonia and aspiration pneumonia Associated symptoms: + fever, + cough, + sputum production and + chest congestion; no abdominal pain Treatment prior to arrival: none Related Data Home oxygen amount: other (6L) Home Medications Medication Instructions Recorded Confirmed Type atorvastatin 40 mg tablet 40 mg feeding tube QDL 09/18/18 09/07/21 History nitroglycerin 0.4 mg sublingual 0.4 mg sublingual UD PRN Chest Pain 09/18/18 09/07/21 History tablet albuterol sulfate 90 mcg/actuation 2 inh inhalation Q6H PRN shortness 05/06/20 09/07/21 Rx aerosol inhaler (ProAir HFA) of breath or wheezing #8.5 grams aspirin 81 mg chewable tablet 81 mg feeding tube QDL 02/19/21 09/07/21 History fluticasone fur. 100 mcg-umeclid 1 inh inhalation DAILY 02/19/21 09/07/21 History 62.5 mcg-vilant 25 mcg inhalat.powder (Trelegy Ellipta) nutritional supplements 0.08 1 ea feeding tube TID 02/19/21 09/07/21 History gram-2 kcal/mL liquid for tube feed (Nutren 2.0) oxymetazoline 0.05 % nasal spray 2 spray NA BID PRN NOSE BLEED #22 02/25/21 09/07/21 Rx (Nasal Stephens (oxymetazoline)) mL ferrous sulfate 15 mg iron (75 5 mg QDL 09/07/21 09/07/21 History mg)/mL oral drops sodium chloride 0.65 % nasal spray 2 spray NA Q4H PRN NASAL DRYNESS 09/07/21 09/07/21 History aerosol (Saline Mist) Allergies Allergy/AdvReac Type Severity Reaction Status Date / Time No Known Allergies Allergy Verified 09/07/21 23:07 Past Med/Surg History Medical History Acute hypoxemic respiratory failure Acute on chronic diastolic heart failure CAD (coronary artery disease) Cardiac murmur CHILD FROM RHEUMATIC FEVER CHF (congestive heart failure) Chronic pulmonary aspiration CKD (chronic kidney disease) stage 3, GFR 30-59 ml/min Former tobacco use Hearing deficit BILAT History of AL (myocardial infarction) 2017/ [facility] History of nasopharyngeal cancer s/p radiation, 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 Milton- [facility]/ NO STENTS History of cataract surgery History of colonoscopy with polypectomy 09/25/2018. Propofol given, no issues. History of coronary artery bypass graft One vessel - 2016 - [facility] History of heart valve replacement Bioprosthetic aortic valve - [facility] 2016 History of shoulder surgery RIGHT History of tonsillectomy History of tooth extraction History of vascular access device NO LONGER HAS PORT Hx of aortic valve replacement Status post insertion of percutaneous endoscopic gastrostomy (PEG) tube PLACED DUE TO PALATE SURGERY- THEN REMOVED 2014 Family History Father Cancer Liver Cancer Social History Smoking Status: Former smoker Tobacco Type: Cigarettes Second Hand Exposure: No; Hx Alcohol Use: No Hx Substance Use: No Preferred Language: Czech Communication Ability: Effective Die Sinker Required: No Beliefs That Will Affect Care: None marital status: / Current Living Situation: Alone How many Children do You have: 1 Feels Safe at Home: Yes Assistive Devices: None Review of Systems Other (unobtainable due to respiratory distress) Physical Exam Vital Signs: Vital Signs - 24 hr 09/07/21 21:35 09/07/21 22:08 09/07/21 22:46 Temperature 37.8 C H 38.5 C H Temperature Source Temporal Artery Sc an Oral Pulse Rate 138 H Pulse Rate [Apical ] 102 H Respiratory Rate 32 H 26 H Respiratory Effort / Characteristics Labored Non-Labored Sponta neous Respiratory Depth Normal Respiratory Patter n Regular Blood Pressure 154/78 H Blood Pressure [Ri ght Arm] 105/60 Blood Pressure Mayela n 103 Blood Pressure Mayela n [Right Arm] 75 Blood Pressure Pos ition [Right Arm] Sitting Pulse Oximetry 80 L 94 90 Oxygen Delivery Me thod Nasal Cannula BiPAP BiPAP Oxygen Flow Rate 6 Fraction of Inspir ed Oxygen 50 50 SaO2/FiO2 Ratio 188 180 Sepsis New/Unexpla ined Change in Men jose eduardo Status N/A Sepsis Action Take n by Nursing No Action Required Pulse Oximetry Pos t Tiitration 09/07/21 22:46 09/07/21 23:00 09/07/21 22:00 Temperature Temperature Source Pulse Rate 102 H Pulse Rate [Apical ] 73 78 Respiratory Rate 21 24 27 H Respiratory Effort / Characteristics Spontaneous Respiratory Depth Respiratory Patter n Tachypnea Blood Pressure Blood Pressure [Ri ght Arm] 70/43 L 121/61 Blood Pressure Mayela n Blood Pressure Mayela n [Right Arm] 52 81 Blood Pressure Pos ition [Right Arm] Sitting Sitting Pulse Oximetry 90 97 95 Oxygen Delivery Me thod BiPAP BiPAP Oxygen Flow Rate Fraction of Inspir ed Oxygen 50 60 100 SaO2/FiO2 Ratio 180 161 Sepsis New/Unexpla ined Change in Men jose eduardo Status Sepsis Action Take n by Nursing Pulse Oximetry Pos t Tiitration 09/07/21 22:10 09/07/21 23:30 09/08/21 00:34 Temperature Temperature Source Pulse Rate Pulse Rate [Apical ] Respiratory Rate Respiratory Effort / Characteristics Respiratory Depth Respiratory Patter n Blood Pressure Blood Pressure [Ri ght Arm] Blood Pressure Mayela n Blood Pressure Mayela n [Right Arm] Blood Pressure Pos ition [Right Arm] Pulse Oximetry 93 Oxygen Delivery Me thod BiPAP Nasal Cannula Oxygen Flow Rate 3 Fraction of Inspir ed Oxygen 50 SaO2/FiO2 Ratio Sepsis New/Unexpla ined Change in Men jose eduardo Status Sepsis Action Take n by Nursing Pulse Oximetry Pos t Tiitration 99 09/08/21 01:04 Temperature Temperature Source Pulse Rate Pulse Rate [Apical ] 83 Respiratory Rate 22 Respiratory Effort / Characteristics Non-Labored Sponta neous Respiratory Depth Normal Respiratory Patter n Blood Pressure Blood Pressure [Ri ght Arm] 133/73 Blood Pressure Mayela n Blood Pressure Mayela n [Right Arm] 93 Blood Pressure Pos ition [Right Arm] Pulse Oximetry 90 Oxygen Delivery Me thod Nasal Cannula Oxygen Flow Rate 6 Fraction of Inspir ed Oxygen SaO2/FiO2 Ratio Sepsis New/Unexpla ined Change in Men jose eduardo Status Sepsis Action Take n by Nursing Pulse Oximetry Pos t Tiitration Physical Exam: Physical Exam GENERAL: Respiratory distress. EYES: Conjunctivae and EOM are normal. Pupils are equal, round, and reactive to light. Right eye exhibits no discharge. Left eye exhibits no discharge. No scleral icterus. NECK: Normal range of motion. Neck supple. No JVD present. CV: Normal rate, regular rhythm, normal heart sounds and intact distal pulses. There is no peripheral edema. Palpable radial pulses bue. PULM/CHEST: Rhonchi and expiratory wheezes bilaterally. Inspiratory rales at the bases. ABD: The abdomen is soft. MUSC/SKEL: Normal range of motion. There is no peripheral edema, tenderness or deformity. NEURO: GCS eye subscore is 4. GCS verbal subscore is 5. GCS motor subscore is 6. Course Course 2144: The patient was evaluated in room A4. A complete history and physical exam was performed Cardiac monitoring: An order was placed for continuous cardiac monitoring. The monitor shows a rate of 110 with sinus tachycardia rhythm Patient arrives febrile tachypneic in severe respiratory distress. Patient was quickly transitioned to BiPAP. BiPAP improved patient's respiratory rate and oxygen saturation. Tylenol IV ordered for the patient. EKG showed new left bundle branch block however the patient is reporting no chest pain. Chest x-ray shows pneumonia. I-STAT ordered for the patient creatinine within normal limits will send for CTA of the chest. Antibiotics ordered for the patient. 2215: Patient's work of breathing has improved significantly with BiPAP. 2330: Vital signs stable on the BiPAP. Patient's effort of breathing has improved significantly with BiPAP. Patient's lactic acid minimally elevated at 2.5. Procalcitonin elevated at 3.44. COVID-negative. Troponin elevated at 25.4. CTA of the chest confirms the pneumonia. Did discuss with ICU Eliseo MCNAMARA for evaluation. Discussed case with Dr. Nichols who states he will admit the patient to his service. Patient is full code. Administered Medications Discontinued Medications Albuterol (Albut/Ipratrop 3mg/0.5mg Neb 3 Ml Vial) 3 ml NEB NOW STA; Protocol Stop: 09/07/21 21:50 Last Admin: 09/07/21 22:04 Dose: 3 ml Documented By: LISE Acetaminophen (Ofirmev) 1,000 mg in 100 mls @ 400 mls/hr IV NOW STA Stop: 09/07/21 22:03 Last Infusion: 09/07/21 22:18 Dose: 0 mls/hr Documented By: Admin: 09/07/21 22:03 Dose: 400 mls/hr Documented By: LISE Piperacillin Sod/Tazobactam Sod (Zosyn) 4.5 gm in 120 mls @ 240 mls/hr IV NOW ONE Stop: 09/07/21 22:29 Last Infusion: 09/07/21 23:04 Dose: 0 mls/hr Documented By: Admin: 09/07/21 22:34 Dose: 240 mls/hr Documented By: LISE Sodium Chloride (Nss 1000ml) 2,000 mls @ 999 mls/hr IV .Q2H1M ONE Stop: 09/08/21 00:51 Last Infusion: 09/07/21 23:25 Dose: 125 mls/hr Documented By: Admin: 09/07/21 22:58 Dose: 999 mls/hr Documented By: LISE Doxycycline Hyclate 100 mg/ (Dextrose) 110 mls @ 50 mls/hr IV NOW STA Stop: 09/08/21 01:15 Last Admin: 09/07/21 23:54 Dose: 50 mls/hr Documented By: ROBIN Ioversol (Optiray 320 125ml) 120 ml IV ONCE ONE Stop: 09/07/21 22:15 Last Admin: 09/07/21 22:15 Dose: 1 ml Documented By: TIFFANIE Methylprednisolone (Methylprednisolone 125 Mg/2 Ml Vial) 125 mg IV NOW STA Stop: 09/07/21 21:50 Last Admin: 09/07/21 22:03 Dose: 125 mg Documented By: LISE Medical Decision Making Laboratory Data Result diagrams: 09/07/21 21:57 09/07/21 21:57 Lab Results 09/07/21 09/07/21 09/07/21 Range/Units 21:57 21:57 21:57 WBC 11.89 H (4.8-10.8) K/ul RBC 4.70 (4.63-6.08) M/uL Hgb 13.2 L (14.0-18.0) g/dl POC Hgb (14.0-18.0) g/dl Hct 43.7 (40.1-51.0) % POC Hct (42-52) % MCV 93.0 (80.0-100.0) fL MCH 28.1 (25.0-34.0) pg MCHC 30.2 L (32.0-36.0) g/dL RDW Std Deviation 54.6 H (36.4-46.3) fL RDW Coeff of Navid 16.5 H (11.5-14.5) % Plt Count 155 (130-400) K/uL MPV 10.9 (9.4-12.4) fL Immature Gran % (Auto) 1.1 % Neut % (Auto) 80.4 % Lymph % (Auto) 8.0 % [place] % (Auto) 10.0 % Eos % (Auto) 0.2 % Baso % (Auto) 0.3 % Neut # (Auto) 9.56 H (1.4-6.5) K/uL Lymph # (Auto) 0.95 L (1.2-3.4) K/uL [place] # (Auto) 1.19 H (0.24-0.82) K/uL Eos # (Auto) 0.02 (0-0.50) K/uL Baso # (Auto) 0.04 (0-0.2) K/uL Immature Gran # (Auto) 0.13 H (0.00-0.02) K/uL PT 10.7 (9.0-12.0) Seconds INR 1.0 (0.9-1.1) APTT 29.6 (21.0-31.0) Seconds PTT Ratio 1.1 VBG pH (7.36-7.41) VBG pCO2 (38-50) mmHg VBG pO2 mmHg VBG HCO3 mmol/L VBG O2 Saturation % VBG Base Excess mEq/L POC Sodium (135-144) mmol/L Sodium 137 (136-145) mmol/L POC Potassium (3.3-5.0) mmol/L Potassium 4.1 (3.5-5.1) mmol/L POC Chloride (101-112) mmol/L Chloride 95 L (98-107) mmol/L Carbon Dioxide 33 H (21-32) mmol/L POC Total CO2 (24-31) mmol/L Anion Gap 9 (3-11) POC Anion Gap (16-25) mmol/L POC BUN (7-18) mg/dl BUN 58 H (6-23) mg/dl Creatinine 1.24 (0.6-1.4) mg/dl POC Creatinine (0.6-1.3) mg/dl Est Cr Clr Drug Dosing 42.4 ml/min Est GFR ( Amer) 64.6 ml/min Est GFR (Non-Af Amer) 55.7 ml/min BUN/Creatinine Ratio 46.8 H (10-20) Glucose 122 H (70-99(Fasting)) mg/dl POC Glucose (other) (70-99) mg/dl Lactate (0.4-2.0) mmol/L Calcium 10.0 (8.5-10.1) mg/dl POC Ioniz Calcium Jael (1.12-1.32) mmol/l Magnesium 2.3 (1.7-2.4) mg/dl Total Bilirubin 0.7 (0.2-1.0) mg/dl AST 31 (13-39) U/L ALT 14 (7-52) U/L Alkaline Phosphatase 86 (34-104) U/L Troponin I High Sens 25.4 H (0-20) pg/ml Total Protein 8.6 H (6.0-8.3) gm/dl Albumin 4.3 (3.4-5.0) gm/dl Globulin 4.3 H (2.5-4.0) gm/dl Albumin/Globulin Ratio 1.0 (0.9-2) Procalcitonin (0-0.5) ng/ml TSH (0.300-4.500) uIu/ml Urine Color Urine Appearance (Clear) Urine pH (4.5-7.5) Ur Specific [place] (1.000-1.030) Urine Protein (Negative) Urine Glucose (UA) (Negative) Urine Ketones (Negative) Urine Blood (Negative) Urine Nitrite (Negative) Urine Bilirubin (Negative) Urine Urobilinogen (Negative) Ur Leukocyte Esterase (Negative) Urine WBC (Auto) (0-5) /hpf Urine RBC (Auto) (0-4) /hpf U Hyaline Cast (Auto) (0-5) /lpf U Epithel Cells (Auto) (0-5) /lpf Urine Bacteria (Auto) (Negative) SARS-CoV-2 (PCR) (Negative) Influenza Type A (PCR) (Neg) Influenza Type B (PCR) (Neg) RSV (RT-PCR) (Neg) 09/07/21 09/07/21 09/07/21 Range/Units 21:57 21:57 21:57 WBC (4.8-10.8) K/ul RBC (4.63-6.08) M/uL Hgb (14.0-18.0) g/dl POC Hgb (14.0-18.0) g/dl Hct (40.1-51.0) % POC Hct (42-52) % MCV (80.0-100.0) fL MCH (25.0-34.0) pg MCHC (32.0-36.0) g/dL RDW Std Deviation (36.4-46.3) fL RDW Coeff of Navid (11.5-14.5) % Plt Count (130-400) K/uL MPV (9.4-12.4) fL Immature Gran % (Auto) % Neut % (Auto) % Lymph % (Auto) % [place] % (Auto) % Eos % (Auto) % Baso % (Auto) % Neut # (Auto) (1.4-6.5) K/uL Lymph # (Auto) (1.2-3.4) K/uL [place] # (Auto) (0.24-0.82) K/uL Eos # (Auto) (0-0.50) K/uL Baso # (Auto) (0-0.2) K/uL Immature Gran # (Auto) (0.00-0.02) K/uL PT (9.0-12.0) Seconds INR (0.9-1.1) APTT (21.0-31.0) Seconds PTT Ratio VBG pH (7.36-7.41) VBG pCO2 (38-50) mmHg VBG pO2 mmHg VBG HCO3 mmol/L VBG O2 Saturation % VBG Base Excess mEq/L POC Sodium (135-144) mmol/L Sodium (136-145) mmol/L POC Potassium (3.3-5.0) mmol/L Potassium (3.5-5.1) mmol/L POC Chloride (101-112) mmol/L Chloride (98-107) mmol/L Carbon Dioxide (21-32) mmol/L POC Total CO2 (24-31) mmol/L Anion Gap (3-11) POC Anion Gap (16-25) mmol/L POC BUN (7-18) mg/dl BUN (6-23) mg/dl Creatinine (0.6-1.4) mg/dl POC Creatinine (0.6-1.3) mg/dl Est Cr Clr Drug Dosing ml/min Est GFR ( Amer) ml/min Est GFR (Non-Af Amer) ml/min BUN/Creatinine Ratio (10-20) Glucose (70-99(Fasting)) mg/dl POC Glucose (other) (70-99) mg/dl Lactate 2.5 H* (0.4-2.0) mmol/L Calcium (8.5-10.1) mg/dl POC Ioniz Calcium Jael (1.12-1.32) mmol/l Magnesium (1.7-2.4) mg/dl Total Bilirubin (0.2-1.0) mg/dl AST (13-39) U/L ALT (7-52) U/L Alkaline Phosphatase (34-104) U/L Troponin I High Sens (0-20) pg/ml Total Protein (6.0-8.3) gm/dl Albumin (3.4-5.0) gm/dl Globulin (2.5-4.0) gm/dl Albumin/Globulin Ratio (0.9-2) Procalcitonin 3.44 H (0-0.5) ng/ml TSH (0.300-4.500) uIu/ml Urine Color Urine Appearance (Clear) Urine pH (4.5-7.5) Ur Specific [place] (1.000-1.030) Urine Protein (Negative) Urine Glucose (UA) (Negative) Urine Ketones (Negative) Urine Blood (Negative) Urine Nitrite (Negative) Urine Bilirubin (Negative) Urine Urobilinogen (Negative) Ur Leukocyte Esterase (Negative) Urine WBC (Auto) (0-5) /hpf Urine RBC (Auto) (0-4) /hpf U Hyaline Cast (Auto) (0-5) /lpf U Epithel Cells (Auto) (0-5) /lpf Urine Bacteria (Auto) (Negative) SARS-CoV-2 (PCR) NEGATIVE (Negative) Influenza Type A (PCR) Negative (Neg) Influenza Type B (PCR) Negative (Neg) RSV (RT-PCR) Negative (Neg) 09/07/21 09/07/21 09/07/21 Range/Units 21:57 22:04 22:30 WBC (4.8-10.8) K/ul RBC (4.63-6.08) M/uL Hgb (14.0-18.0) g/dl POC Hgb 15.0 (14.0-18.0) g/dl Hct (40.1-51.0) % POC Hct 44 (42-52) % MCV (80.0-100.0) fL MCH (25.0-34.0) pg MCHC (32.0-36.0) g/dL RDW Std Deviation (36.4-46.3) fL RDW Coeff of Navid (11.5-14.5) % Plt Count (130-400) K/uL MPV (9.4-12.4) fL Immature Gran % (Auto) % Neut % (Auto) % Lymph % (Auto) % [place] % (Auto) % Eos % (Auto) % Baso % (Auto) % Neut # (Auto) (1.4-6.5) K/uL Lymph # (Auto) (1.2-3.4) K/uL [place] # (Auto) (0.24-0.82) K/uL Eos # (Auto) (0-0.50) K/uL Baso # (Auto) (0-0.2) K/uL Immature Gran # (Auto) (0.00-0.02) K/uL PT (9.0-12.0) Seconds INR (0.9-1.1) APTT (21.0-31.0) Seconds PTT Ratio VBG pH (7.36-7.41) VBG pCO2 (38-50) mmHg VBG pO2 mmHg VBG HCO3 mmol/L VBG O2 Saturation % VBG Base Excess mEq/L POC Sodium 138 (135-144) mmol/L Sodium (136-145) mmol/L POC Potassium 4.3 (3.3-5.0) mmol/L Potassium (3.5-5.1) mmol/L POC Chloride 95 L (101-112) mmol/L Chloride (98-107) mmol/L Carbon Dioxide (21-32) mmol/L POC Total CO2 36 H (24-31) mmol/L Anion Gap (3-11) POC Anion Gap 12.0 L (16-25) mmol/L POC BUN 55 H (7-18) mg/dl BUN (6-23) mg/dl Creatinine (0.6-1.4) mg/dl POC Creatinine 1.2 (0.6-1.3) mg/dl Est Cr Clr Drug Dosing ml/min Est GFR ( Amer) ml/min Est GFR (Non-Af Amer) ml/min BUN/Creatinine Ratio (10-20) Glucose (70-99(Fasting)) mg/dl POC Glucose (other) 129 H (70-99) mg/dl Lactate (0.4-2.0) mmol/L Calcium (8.5-10.1) mg/dl POC Ioniz Calcium Jael 1.21 (1.12-1.32) mmol/l Magnesium (1.7-2.4) mg/dl Total Bilirubin (0.2-1.0) mg/dl AST (13-39) U/L ALT (7-52) U/L Alkaline Phosphatase (34-104) U/L Troponin I High Sens (0-20) pg/ml Total Protein (6.0-8.3) gm/dl Albumin (3.4-5.0) gm/dl Globulin (2.5-4.0) gm/dl Albumin/Globulin Ratio (0.9-2) Procalcitonin (0-0.5) ng/ml TSH 2.307 (0.300-4.500) uIu/ml Urine Color Yellow Urine Appearance Clear (Clear) Urine pH 6.5 (4.5-7.5) Ur Specific [place] 1.035 H (1.000-1.030) Urine Protein 2+ H (Negative) Urine Glucose (UA) Negative (Negative) Urine Ketones Negative (Negative) Urine Blood Negative (Negative) Urine Nitrite Negative (Negative) Urine Bilirubin Negative (Negative) Urine Urobilinogen Negative (Negative) Ur Leukocyte Esterase Negative (Negative) Urine WBC (Auto) 1-5 (0-5) /hpf Urine RBC (Auto) 0-4 (0-4) /hpf U Hyaline Cast (Auto) 1-5 (0-5) /lpf U Epithel Cells (Auto) 10-20 H (0-5) /lpf Urine Bacteria (Auto) Negative (Negative) SARS-CoV-2 (PCR) (Negative) Influenza Type A (PCR) (Neg) Influenza Type B (PCR) (Neg) RSV (RT-PCR) (Neg) 09/07/21 09/08/21 Range/Units 22:38 00:03 WBC (4.8-10.8) K/ul RBC (4.63-6.08) M/uL Hgb (14.0-18.0) g/dl POC Hgb (14.0-18.0) g/dl Hct (40.1-51.0) % POC Hct (42-52) % MCV (80.0-100.0) fL MCH (25.0-34.0) pg MCHC (32.0-36.0) g/dL RDW Std Deviation (36.4-46.3) fL RDW Coeff of Navid (11.5-14.5) % Plt Count (130-400) K/uL MPV (9.4-12.4) fL Immature Gran % (Auto) % Neut % (Auto) % Lymph % (Auto) % [place] % (Auto) % Eos % (Auto) % Baso % (Auto) % Neut # (Auto) (1.4-6.5) K/uL Lymph # (Auto) (1.2-3.4) K/uL [place] # (Auto) (0.24-0.82) K/uL Eos # (Auto) (0-0.50) K/uL Baso # (Auto) (0-0.2) K/uL Immature Gran # (Auto) (0.00-0.02) K/uL PT (9.0-12.0) Seconds INR (0.9-1.1) APTT (21.0-31.0) Seconds PTT Ratio VBG pH 7.41 (7.36-7.41) VBG pCO2 59 H (38-50) mmHg VBG pO2 33 mmHg VBG HCO3 37 mmol/L VBG O2 Saturation 61.2 % VBG Base Excess 10.4 mEq/L POC Sodium (135-144) mmol/L Sodium (136-145) mmol/L POC Potassium (3.3-5.0) mmol/L Potassium (3.5-5.1) mmol/L POC Chloride (101-112) mmol/L Chloride (98-107) mmol/L Carbon Dioxide (21-32) mmol/L POC Total CO2 (24-31) mmol/L Anion Gap (3-11) POC Anion Gap (16-25) mmol/L POC BUN (7-18) mg/dl BUN (6-23) mg/dl Creatinine (0.6-1.4) mg/dl POC Creatinine (0.6-1.3) mg/dl Est Cr Clr Drug Dosing ml/min Est GFR ( Amer) ml/min Est GFR (Non-Af Amer) ml/min BUN/Creatinine Ratio (10-20) Glucose (70-99(Fasting)) mg/dl POC Glucose (other) (70-99) mg/dl Lactate 0.9 (0.4-2.0) mmol/L Calcium (8.5-10.1) mg/dl POC Ioniz Calcium Jael (1.12-1.32) mmol/l Magnesium (1.7-2.4) mg/dl Total Bilirubin (0.2-1.0) mg/dl AST (13-39) U/L ALT (7-52) U/L Alkaline Phosphatase (34-104) U/L Troponin I High Sens (0-20) pg/ml Total Protein (6.0-8.3) gm/dl Albumin (3.4-5.0) gm/dl Globulin (2.5-4.0) gm/dl Albumin/Globulin Ratio (0.9-2) Procalcitonin (0-0.5) ng/ml TSH (0.300-4.500) uIu/ml Urine Color Urine Appearance (Clear) Urine pH (4.5-7.5) Ur Specific [place] (1.000-1.030) Urine Protein (Negative) Urine Glucose (UA) (Negative) Urine Ketones (Negative) Urine Blood (Negative) Urine Nitrite (Negative) Urine Bilirubin (Negative) Urine Urobilinogen (Negative) Ur Leukocyte Esterase (Negative) Urine WBC (Auto) (0-5) /hpf Urine RBC (Auto) (0-4) /hpf U Hyaline Cast (Auto) (0-5) /lpf U Epithel Cells (Auto) (0-5) /lpf Urine Bacteria (Auto) (Negative) SARS-CoV-2 (PCR) (Negative) Influenza Type A (PCR) (Neg) Influenza Type B (PCR) (Neg) RSV (RT-PCR) (Neg) Imaging Data Radiologist's Impression: PreliminaryFindingsOnly See Final Report For Complete Findings CTACHEST: No evidence of pulmonaryemboli. There is bronchitiswith pneumonitis in the right upper lobe, right middle lobe and bilateral lower lobes. No consolidation. Status post aortic valve replacement with median sternotomy. 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 Comparison made to prior CT scan of the chest [id number]. Radiologist: Susie Bagley MD Study ready at 22:28 and initial results transmitted at 22:35 ECG Data Interpretation: Sinus rhythm with a rate of 110. OK 152 QRS 124 QTC 484. Left bundle branch block present. sgarbosa negative. Left bundle branch block appears new from the EKG compared to February 2021. [facility] Narrative 2145: The patient was evaluated in room A4. A complete history and physical exam was performed Cardiac monitoring: An order was placed for continuous cardiac monitoring. The monitor shows a rate of 110 with sinus tachycardia rhythm Patient arrives febrile tachypneic in severe respiratory distress. Patient was quickly transitioned to BiPAP. BiPAP improved patient's respiratory rate and oxygen saturation. Tylenol IV ordered for the patient. EKG showed new left bundle branch block however the patient is reporting no chest pain. Chest x-ray shows pneumonia. I-STAT ordered for the patient creatinine within normal limits will send for CTA of the chest. Antibiotics ordered for the patient. 2215: Patient's work of breathing has improved significantly with BiPAP. 2330: Vital signs stable on the BiPAP. Patient's effort of breathing has improved significantly with BiPAP. Patient's lactic acid minimally elevated at 2.5. Procalcitonin elevated at 3.44. COVID-negative. Troponin elevated at 25.4. CTA of the chest confirms the pneumonia. Did discuss with ANDREI MCNAMARA for evaluation. Discussed case with Dr. Nichols who states he will admit the patient to his service. Patient is full code. Impression & Plan Hypoxia, Pneumonia, Sepsis, LBBB (left bundle branch block) Critical Care Time Critical Care Time: Yes Total Critical Care Time: 77 I have personally spent greater than 77 minutes of critical care time in the direct management of this patient. This includes bedside care, interpretation of diagnostic studies, and testing, discussion with consultants, patient, and family members, and other required patient management activities. This 77 min utes is in excess of all separately billable procedures. Discharge Plan Visit Data Chief Complaint: Shortness of Breath/Dyspnea Stated Complaint: CHEST CONGESTION ED Provider: Travis Duenas Discharge Problem: Hypoxia, Pneumonia, Sepsis, LBBB (left bundle branch block) Patient Disposition: Admitted As Inpatient Forms Stand Alone Forms: My [facility] Prescriptions Prescriptions: No Action atorvastatin 40 mg Tablet 40 mg feeding tube QDL nitroglycerin 0.4 mg Tablet, Sublingual 0.4 mg sublingual UD PRN (Reason: Chest Pain) albuterol sulfate [ProAir HFA] 90 mcg/actuation HFA aerosol inhaler 2 inh inhalation Q6H PRN (Reason: shortness of breath or wheezing) Qty: 8.5 0RF aspirin 81 mg Tablet,Chewable 81 mg feeding tube QDL Nutren 2.0 0.08 gram-2 kcal/mL Liquid 1 ea feeding tube TID Trelegy Ellipta 100-62.5-25 mcg blister with device 1 inh INHALATION DAILY oxymetazoline [Nasal Stephens (oxymetazoline)] 0.05 % Stephens,Non-Aerosol 2 spray NA BID PRN (Reason: NOSE BLEED) Qty: 22 0RF Rx Instructions: DO NOT USE FOR MORE THAN 3 DAYS ferrous sulfate 15 mg iron (75 mg)/mL Drops 5 mg QDL Rx Instructions: VIA FEEDING TUBE Saline Mist 0.65 % aerosol,spray 2 spray NA Q4H PRN (Reason: NASAL DRYNESS) Referrals Referrals: Prudencio Burns MD [Primary Care Provider] - : Pneumonia Qualifiers: Pneumonia type: aspiration pneumonia Aspiration pneumonia type: unspecified Laterality: right Lung location: unspecified part of lung Qualified Code(s): J69.0 - Pneumonitis due to inhalation of food and vomit Sepsis Qualifiers: Sepsis type: sepsis due to unspecified organism Sepsis acute organ dysfunction status: unspecified Qualified Code(s): A41.9 - Sepsis, unspecified organism
--- NOTE | 2021-09-08 00:43 | History & Physical Report ---
Date of Service September 08, 2021 Assessment & Plan (1) Severe sepsis: Plan: SIRS plus lactic acidosis plus hypoxemia Secondary to CAP/likely recurrent aspiration pneumonia, history PEG tube placement COPD exacerbation secondary to pneumonia Acute on chronic respiratory failure Transient hypotension secondary to illness Currently resolved after initial fluid resuscitation at the ER. Troponin elevation secondary to illness chronic diastolic heart failure (EF 50 to 55%, TTE 2020), patient on the dry side chronic LBBB hx CAD status post CABG, status post bioprosthetic AVR, hyperlipidemia, on statin Rx nasopharyngeal cancer status post chemoradiation, in remission chronic anemia, hemoglobin better than baseline likely secondary to hemoconcentration Hyperglycemia rule out DM past tobacco abuse Medical telemetry Supplemental O2 CS, Doxycycline, Zosyn Aspiration precautions Swallow eval Nebs RTC, steroid course Pulmonary consult if without improvement IVF, follow lactic acid Follow troponin Check hemoglobin A1c DVT prophylaxis. Lovenox subcu Full code Patient son requesting updates for providers. Mr. Anthony Dodson, contact #[phone]. Text document was generated using [employer] voice recognition software. It may contain grammatical or spelling errors. Kindly contact undersigned for clarification of any documentation item in question. History of Present Illness Chief Complaint: Worsening cough, 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 Primary Care Provider: Prudencio Burns MD History obtained from patient, family, and records. Medical history significant for chronic respiratory failure occasional supplemental home O2 use, chronic diastolic heart failure (EF 50 to 55%, TTE 2020) , chronic LBBB, CAD status post CABG, status post bioprosthetic AVR, COPD as per records, chronic pulmonary aspiration status post PEG tube placement, hypertension, hyperlipidemia, nasopharyngeal cancer status post chemoradiation, chronic anemia (baseline hemoglobin of 12 ), past tobacco abuse. Last confinement February 2021 for respiratory failure secondary to aspiration pneumonia. Patient discharged on Augmentin course. 3 days history of junky greenish cough symptoms chills and worsening 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 Hold ELISA with chance of aspiration as per patient. No chest pain. 1 episode of emesis at home. No abdominal pain. No known recent sick contacts. At the ER, SBP noted to be 70s at 1 point. Solu-Medrol, neb treatment, Zosyn, NSS administered at the ER. BiPAP initiated at the ER. Patient adamantly demanded for BiPAP to be taken off. BP currently 130s. 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 Allergies Allergy/AdvReac Type Severity Reaction Status Date / Time No Known Allergies Allergy Verified 09/07/21 23:07 Home Medications Medication Instructions Recorded Confirmed Type atorvastatin 40 mg tablet 40 mg feeding tube QDL 09/18/18 09/07/21 History nitroglycerin 0.4 mg sublingual 0.4 mg sublingual UD PRN Chest Pain 09/18/18 09/07/21 History tablet albuterol sulfate 90 mcg/actuation 2 inh inhalation Q6H PRN shortness 05/06/20 09/07/21 Rx aerosol inhaler (ProAir HFA) of breath or wheezing #8.5 grams aspirin 81 mg chewable tablet 81 mg feeding tube QDL 02/19/21 09/07/21 History fluticasone fur. 100 mcg-umeclid 1 inh inhalation DAILY 02/19/21 09/07/21 H istory 62.5 mcg-vilant 25 mcg inhalat.powder (Trelegy Ellipta) nutritional supplements 0.08 1 ea feeding tube TID 02/19/21 09/07/21 History gram-2 kcal/mL liquid for tube feed (Nutren 2.0) oxymetazoline 0.05 % nasal spray 2 spray NA BID PRN NOSE BLEED #22 02/25/21 09/07/21 Rx (Nasal Rescue (oxymetazoline)) mL ferrous sulfate 15 mg iron (75 5 mg QDL 09/07/21 09/07/21 History mg)/mL oral drops sodium chloride 0.65 % nasal spray 2 spray NA Q4H PRN NASAL DRYNESS 09/07/21 09/07/21 History aerosol (Saline Mist) Past Med/Surg History Medical History Acute hypoxemic respiratory failure Acute on chronic diastolic heart failure CAD (coronary artery disease) Cardiac murmur CHILD FROM RHEUMATIC FEVER CHF (congestive heart failure) Chronic pulmonary aspiration CKD (chronic kidney disease) stage 3, GFR 30-59 ml/min Former tobacco use Hearing deficit BILAT History of [place] (myocardial infarction) [facility]/ [facility] History of nasopharyngeal cancer s/p radiation, chemo- NO PORT ANYMORE CLEARED NOV 2013 History of rheumatic fever Hyperlipidemia Hypertension Left bundle branch block (LBBB) Palate abnormality prosthetic palate Pneumonia Surgical History History of cardiac cath 2017 - [place] --> CABG - [facility]- follows w/ Dr. Milton- [facility]/ NO STENTS History of cataract surgery History of colonoscopy with polypectomy 09/25/2018. Propofol given, no issues. History of coronary artery bypass graft One vessel - 2016 - Tracee Casanova History of heart valve replacement Bioprosthetic aortic valve - 2016 History of shoulder surgery RIGHT History of tonsillectomy History of tooth extraction History of vascular access device NO LONGER HAS PORT Hx of aortic valve replacement Status post insertion of percutaneous endoscopic gastrostomy (PEG) tube PLACED DUE TO PALATE SURGERY- THEN REMOVED 2014 Family History Father Cancer Liver Cancer Social History Smoking Status: Former smoker Tobacco Type: Cigarettes Second Hand Exposure: No; Hx Alcohol Use: No Hx Substance Use: No Preferred Language: Amharic Communication Ability: Impaired Communication Ability Comment: malformed palate Hvac/R Instructor Required: No Beliefs That Will Affect Care: None marital status: / Current Living Situation: Alone How many Children do You have: 1 Feels Safe at Home: Yes Assistive Devices: None Assistive Devices Comment: artificial palate not with patient Review of Systems Review of Systems: As per HPI, all other systems reviewed and negative Physical Exam Physical Exam: GENERAL: Slightly uncomfortable, nasal speech, minimal respiratory distress SKIN: Pallor, warm HEENT: Pale palpebral conjunctivae, no ptosis, dry buccal mucosa, palatal defect noted, nasal cannula in place NECK : Supple, no tenderness CHEST : Decreased breath sounds, expiratory wheezes, no tenderness HEART : RRR, no obvious murmurs ABDOMEN: Some distention, PEG tube in place, nontender EXTREMITIES : No LE swelling/tenderness, no other conspicuous deformities noted NEUROLOGIC : Coherent, no facial asymmetry, no other gross focality Results & Data Results & Data ([facility]) Vital Signs (Past 12 Hours) Vital Signs Temp Pulse Pulse Resp BP BP Pulse Ox 09/08/21 00:34 93 09/07/21 23:30 08/01/22 22:10 09/07/21 22:00 102 H 27 H 95 09/07/21 23:00 78 24 121/61 97 09/07/21 22:46 73 21 70/43 L 90 09/07/21 22:46 90 09/07/21 22:08 38.5 C H 102 H 26 H 105/60 94 09/07/21 21:35 37.8 C H 138 H 32 H 154/78 H 80 L O2 Del Method O2 Flow Rate FiO2 09/08/21 00:34 Nasal Cannula 3 09/07/21 23:30 BiPAP 09/07/21 22:10 50 09/07/21 22:00 100 09/07/21 23:00 BiPAP 60 09/07/21 22:46 BiPAP 50 09/07/21 22:46 BiPAP 50 09/07/21 22:08 BiPAP 50 09/07/21 21:35 Nasal Cannula 6 Laboratory Results Laboratory Results WBC 11.89 K/ul (4.8-10.8) H 09/07/21 21:57 RBC 4.70 M/uL (4.63-6.08) 09/07/21 21:57 Hgb 13.2 g/dl (14.0-18.0) L 09/07/21 21:57 POC Hgb 15.0 g/dl (14.0-18.0) 09/07/21 22:04 Hct 43.7 % (40.1-51.0) 09/07/21 21:57 POC Hct 44 % (42-52) 09/07/21 22:04 MCV 93.0 fL (80.0-100.0) 09/07/21 21:57 MCH 28.1 pg (25.0-34.0) 09/07/21 21:57 MCHC 30.2 g/dL (32.0-36.0) L 09/07/21 21:57 RDW Std Deviation 54.6 fL (36.4-46.3) H 09/07/21 21:57 RDW Coeff of Navid 16.5 % (11.5-14.5) H 09/07/21 21:57 Plt Count 155 K/uL (130-400) 09/07/21 21:57 MPV 10.9 fL (9.4-12.4) 09/07/21 21:57 Immature Gran % (Auto) 1.1 % 09/07/21 21:57 Neut % (Auto) 80.4 % 09/07/21 21:57 Lymph % (Auto) 8.0 % 09/07/21 21:57 [place] % (Auto) 10.0 % 09/07/21 21:57 Eos % (Auto) 0.2 % 09/07/21 21:57 Baso % (Auto) 0.3 % 09/07/21 21:57 Neut # (Auto) 9.56 K/uL (1.4-6.5) H 09/07/21 21:57 Lymph # (Auto) 0.95 K/uL (1.2-3.4) L 09/07/21 21:57 [place] # (Auto) 1.19 K/uL (0.24-0.82) H 09/07/21 21:57 Eos # (Auto) 0.02 K/uL (0-0.50) 09/07/21 21:57 Baso # (Auto) 0.04 K/uL (0-0.2) 09/07/21 21:57 Immature Gran # (Auto) 0.13 K/uL (0.00-0.02) H 09/07/21 21:57 PT 10.7 Seconds (9.0-12.0) 09/07/21 21:57 INR 1.0 (0.9-1.1) 09/07/21 21:57 APTT 29.6 Seconds (21.0-31.0) 09/07/21 21:57 PTT Ratio 1.1 09/07/21 21:57 VBG pH 7.41 (7.36-7.41) 09/07/21 22:38 VBG pCO2 59 mmHg (38-50) H 09/07/21 22:38 VBG pO2 33 mmHg 09/07/21 22:38 VBG HCO3 37 mmol/L 09/07/21 22:38 VBG O2 Saturation 61.2 % 09/07/21 22:38 VBG Base Excess 10.4 mEq/L 09/07/21 22:38 POC Sodium 138 mmol/L (135-144) 09/07/21 22:04 Sodium 137 mmol/L (136-145) 09/07/21 21:57 POC Potassium 4.3 mmol/L (3.3-5.0) 09/07/21 22:04 Potassium 4.1 mmol/L (3.5-5.1) 09/07/21 21:57 POC Chloride 95 mmol/L (101-112) L 09/07/21 22:04 Chloride 95 mmol/L (98-107) L 09/07/21 21:57 Carbon Dioxide 33 mmol/L (21-32) H 09/07/21 21:57 POC Total CO2 36 mmol/L (24-31) H 09/07/21 22:04 Anion Gap 9 (3-11) 09/07/21 21:57 POC Anion Gap 12.0 mmol/L (16-25) L 09/07/21 22:04 POC BUN 55 mg/dl (7-18) H 09/07/21 22:04 BUN 58 mg/dl (6-23) H 09/07/21 21:57 Creatinine 1.24 mg/dl (0.6-1.4) 09/07/21 21:57 POC Creatinine 1.2 mg/dl (0.6-1.3) 09/07/21 22:04 Est Cr Clr Drug Dosing 42.4 ml/min 09/07/21 21:57 Est GFR ( Amer) 64.6 ml/min 09/07/21 21:57 Est GFR (Non-Af Amer) 55.7 ml/min 09/07/21 21:57 BUN/Creatinine Ratio 46.8 (10-20) H 09/07/21 21:57 Glucose 122 mg/dl (70-99(Fasting)) H 09/07/21 21:57 POC Glucose (other) 129 mg/dl (70-99) H 09/07/21 22:04 Lactate 0.9 mmol/L (0.4-2.0) 09/08/21 00:03 Calcium 10.0 mg/dl (8.5-10.1) 09/07/21 21:57 POC Ioniz Calcium Jael 1.21 mmol/l (1.12-1.32) 09/07/21 22:04 Magnesium 2.3 mg/dl (1.7-2.4) 09/07/21 21:57 Total Bilirubin 0.7 mg/dl (0.2-1.0) 09/07/21 21:57 AST 31 U/L (13-39) 09/07/21 21:57 ALT 14 U/L (7-52) 09/07/21 21:57 Alkaline Phosphatase 86 U/L (34-104) 09/07/21 21:57 Troponin I High Sens 25.4 pg/ml (0-20) H 09/07/21 21:57 Total Protein 8.6 gm/dl (6.0-8.3) H 09/07/21 21:57 Albumin 4.3 gm/dl (3.4-5.0) 09/07/21 21:57 Globulin 4.3 gm/dl (2.5-4.0) H 09/07/21 21:57 Albumin/Globulin Ratio 1.0 (0.9-2) 09/07/21 21:57 Procalcitonin 3.44 ng/ml (0-0.5) H 09/07/21 21:57 Urine Color Yellow 09/07/21 22:30 Urine Appearance Clear (Clear) 09/07/21 22:30 Urine pH 6.5 (4.5-7.5) 09/07/21 22:30 Ur Specific [place] 1.035 (1.000-1.030) H 09/07/21 22:30 Urine Protein 2+ (Negative) H 09/07/21 22:30 Urine Glucose (UA) Negative (Negative) 09/07/21 22:30 Urine Ketones Negative (Negative) 09/07/21 22:30 Urine Blood Negative (Negative) 09/07/21 22:30 Urine Nitrite Negative (Negative) 09/07/21 22:30 Urine Bilirubin Negative (Negative) 09/07/21 22:30 Urine Urobilinogen Negative (Negative) 09/07/21 22:30 Ur Leukocyte Esterase Negative (Negative) 09/07/21 22:30 Urine WBC (Auto) 1-5 /hpf (0-5) 09/07/21 22:30 Urine RBC (Auto) 0-4 /hpf (0-4) 09/07/21 22:30 U Hyaline Cast (Auto) 1-5 /lpf (0-5) 09/07/21 22:30 U Epithel Cells (Auto) 10-20 /lpf (0-5) H 09/07/21 22:30 Urine Bacteria (Auto) Negative (Negative) 09/07/21 22:30 SARS-CoV-2 (PCR) NEGATIVE (Negative) 09/07/21 21:57 Influenza Type A (PCR) Negative (Neg) 09/07/21 21:57 Influenza Type B (PCR) Negative (Neg) 09/07/21 21:57 RSV (RT-PCR) Negative (Neg) 09/07/21 21:[address] chest initial read: No evidence of pulmonaryemboli. There is bronchitiswith pneumonitis in the right upper lobe, right middle lobe and bilateral lower lobes. No consolidation. Status post aortic valve replacement with median sternotomy. 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 Comparison made to prior CT scan of the chest [id number]. EKG as per my interpretation :Rate 110, sinus tachycardia, normal axis, septal infarct, lateral infarct
[2021-09-08] MEDS ORDERED: ACETAMINOPHEN 1,000 MG/100 ML VIAL IV PRN (04:58)
[2021-09-08] MEDS ORDERED: PROMETHAZINE HCL 6.25 MG in SODIUM CHLORIDE 0.9% 50 ML IV PRN (04:58)
[2021-09-08 06:24] LABS: Estimated Average Glucose 114 mg/dl; Hemoglobin A1C 5.6 % (4.5-5.6)
[2021-09-08] MEDS: PIPERACILLIN/TAZOBACTAM 3.375 GM in DEXTROSE 5% 100 ML IV SCH ×3 (06:26→23:26)
[2021-09-08] MEDS: LEVALBUTEROL 1.25MG/0.5ML NEB INH SCH ×4 (07:24→19:33)
[2021-09-08] MEDS: IPRATROPIUM BROMIDE NEB SOLN 0.02% 2.5 ML VIAL INH SCH ×4 (07:24→19:33)
--- NOTE | 2021-09-08 08:07 | CT Scan Report ---
CHEST CTA for PULMONARY ARTERIES CT DOSE: 354.06 mGy.cm HISTORY: Shortness of breath. TECHNIQUE: Multiaxial CT images of the chest were performed following the intravenous administration of contrast to evaluate the pulmonary arteries. Maximal intensity projection images were also obtaine d. A dose lowering technique was utilized adhering to the principles of ALARA. COMPARISON STUDY: Chest CTA 02/19/2021. FINDINGS: The visualized liver, spleen, and adrenal glands are unremarkable. Normal thyroid gland. Th e heart is normal in size. No pleural or pericardial effusions. Mildly distended and fluid-filled eso phagus. No change in the old mediastinal bilateral hilar lymphadenopathy. No evidence for an aortic d issection or aneurysm. There is mild left ventricular hypertrophy. Nondiagnostic evaluation of the bi lateral lower lobe, right middle lobe, and lingular segmental and subsegmental pulmonary arteries due to the respiratory motion artifact. The remaining pulmonary arteries show no filling defects to sugg est a pulmonary embolus. There are poststernotomy changes. No acute fractures. No pneumothorax. Parti al opacification of the bilateral lower lobe bronchi. This is slightly improved. Emphysema again note d. Multifocal patchy groundglass and nodular airspace opacities within the right upper and middle lob es have progressed. Focal consolidation within the right middle lobe remains unchanged and may repres ent chronic atelectasis. Tree-in-bud nodular airspace opacities within the lower lobes are again note d. IMPRESSION: 1. No evidence for pulmonary embolus with limitations as described above. 2. Multifocal patchy and nodular airspace opacities within the right upper lobe and right middle lobe have progressed. This favors a pneumonia. 3. Additional tree-in-bud nodular opacities within the lungs with partial opacification of bilateral lower lobe bronchi suggestive of an infectious bronchiolitis. This could be due to chronic aspiration . 4. Emphysema. 5. Mild mediastinal and hilar lymphadenopathy, unchanged. This is likely reactive. 6. Additional findings as described above. ACT 112: Negative or not required by law. Electronically signed by: Ritesh Quevedo M.D. 09/08/2021 8:05 AM
--- NOTE | 2021-09-08 08:39 | XRay Report ---
XR chest 1V portable CLINICAL HISTORY: SEPSIS COMPARISON STUDY: Chest CT February 19, 2021. Chest radiograph February 22, 2021. FINDINGS: Median sternotomy wires are noted. There is no pneumothorax. Trace right pleural effusion. Diffuse reticulonodular interstitial thickening is noted with multifocal airspace opacities, more galen dent within the right lung. Cardiomediastinal silhouette is stable. IMPRESSION: 1. Diffuse reticulonodular interstitial thickening with multifocal airspace opacities, more evident w ithin the right lung. The findings favor an infectious process with multifocal pneumonia. Less likely , the airspace opacities could reflect alveolar edema. Radiographic follow-up is recommended. 2. Suspected mild interstitial pulmonary edema. 3. Trace right pleural effusion. ACT 112: Negative or not required by law. Electronically signed by: Yayo Kay M.D. 09/08/2021 8:37 AM
[2021-09-08] MEDS ORDERED: NUTRITIONAL SUPPLEMENTS feeding tube SCH (09:00)
[2021-09-08] MEDS ORDERED: [UNRECOGNIZED DRUG - OTHER] feeding tube SCH (09:00)
[2021-09-08] MEDS ORDERED: NON-FORMULARY MEDICATION (Fluticasone-Umeclidin-Vilanter [Trelegy Ellipta] 100-62.5-25 mcg INH SCH (09:00)
[2021-09-08] MEDS ORDERED: XOPENEX/ATROVENT 1.25mg/0.5MG NEB COMBO NEB SCH (09:00)
[2021-09-08] MEDS: ENOXAPARIN INJ 30 MG/0.3 ML SYR SQ SCH (11:06)
[2021-09-08] MEDS: DOXYCYCLINE HYCLATE 100 MG in DEXTROSE 5% 100 ML IV SCH ×2 (11:06→21:00)
[2021-09-08] MEDS: FLUTICASONE FUROATE 100MCG 14 PUFFS/INHALER INH SCH (11:07)
[2021-09-08] MEDS: methylPREDNISolone 40 MG in SYRINGE 0 ML IV SCH (11:07)
[2021-09-08] MEDS: UMECLIDINIUM/VILANTEROL 62.5/25MCG 7 PUFFS/INHALER INH SCH (11:07)
[2021-09-08] MEDS ORDERED: FERROUS SULFATE ELIX 220MG/5ML GT SCH (11:30)
--- NOTE | 2021-09-08 11:30 | Communication Note ---
Date of Service: September 08, 2021 The patient can use home supplies for PEG tube feeding. DR Felipe templeton
--- NOTE | 2021-09-08 11:46 | Electrocardiogram Report ---
Test Reason : Blood Pressure : / mmHG Vent. Rate : 110 BPM Atrial Rate : 110 BPM P-R Int : 152 ms QRS Dur : 124 ms QT Int : 358 ms P-R-T Axes : 117 238 082 degrees QTc Int : 484 ms Suspect arm lead reversal, interpretation assumes no reversal Sinus tachycardia Non-specific intra-ventricular conduction delay Poor R wave progression, consider anterior PR vs. lead placement vs. LVH Abnormal ECG When compared with ECG of 19-FEB-2021 10:36, Vent. rate has increased BY 37 BPM QRS duration has increased Confirmed by Figueroa Correa ([id number]) on 09/08/2021 11:45:53 AM Referred By: REFERRED SELF Confirmed By:Davonte Correa
[2021-09-08] MEDS: ATORVASTATIN 40 MG TAB GT SCH (13:23)
[2021-09-08] MEDS: ASPIRIN 81 MG CHEW GT SCH (13:23)
[2021-09-08] MEDS: FERROUS SULFATE ELIX 220MG/5ML GT SCH (13:24)
[2021-09-08] MEDS: TUBE FEEDING WATER FLUSH PEG SCH ×2 (15:44→17:45)
[2021-09-08] MEDS: PATIENT'S OWN ENTERAL FEEDING PEG SCH ×2 (15:44→17:45)
[2021-09-08] MEDS ORDERED: SODIUM CHLORIDE 0.65% NA SOLN 45 ML (OCEAN) ONE (20:06)
[2021-09-09 00:04] LABS: A calco-baum cmplx NotReported Not Detected (NotDetected); Bact fragilis Not Reported Not Detected (NotDetected); C auris Not Reported Not Detected (NotDetected); Calbicans Not Reported Not Detected (NotDetected); Candida glabrata Not Reported Not Detected (NotDetected); Candida krusei Not Reported Not Detected (NotDetected); Cneoformans/gatti Not Reported Not Detected (NotDetected); Cparapsilosis Not Reported Not Detected (NotDetected); Ctropicalis Not Reported Not Detected (NotDetected); E cloacae compx Not Reported Not Detected (NotDetected); Efaecalis Not Reported Not Detected (NotDetected); Efaecium Not Reported Not Detected (NotDetected); Enterobacterales Not Reported Not Detected (NotDetected); Escherichia coli Not Reported Not Detected (NotDetected); H influenzae Not Reported Not Detected (NotDetected); K aerogenes Not Reported Not Detected (NotDetected); Koxytoca Not Reported Not Detected (NotDetected); Kpneumoniae grp Not Reported Not Detected (NotDetected); Lmonocyt Not Reported Not Detected (NotDetected); N meningitidis Not Reported Not Detected (NotDetected); P aeruginosa Not Reported Not Detected (NotDetected); Proteus spp Not Reported Not Detected (NotDetected); Salmonella spp Not Reported Not Detected (NotDetected); Smarcescens Not Reported Not Detected (NotDetected); Staph lugdunensis Not Reported Not Detected (NotDetected); Staph spp. Not Reported DETECTED (NotDetected); Staphaureus Not Reported DETECTED (NotDetected); Staphepi Not Reported Not Detected (NotDetected); Staphylococcus spp. DETECTED (NotDetected); Stenmaltophilia Not Reported Not Detected (NotDetected); Strep agal(GrpB) Not Reported Not Detected (NotDetected); Strep pneum Not Reported Not Detected (NotDetected); Strep pyog (GrpA) Not Reported Not Detected (NotDetected); Strep spp Not Reported Not Detected (NotDetected); mecAC+MREJ Resistant Gene MRSA Not Detected (NotDetected)
[2021-09-09] MEDS ORDERED: VANCOMYCIN CONSULT ACTIVE PRN (00:26)
[2021-09-09] MEDS ORDERED: VANCOMYCIN HCL 1,250 MG in SODIUM CHLORIDE 0.9% 250 ML IV STA (00:56)
[2021-09-09] MEDS: PIPERACILLIN/TAZOBACTAM 3.375 GM in DEXTROSE 5% 100 ML IV SCH ×3 (05:25→21:58)
[2021-09-09 06:25] LABS: Calcium 8.6 mg/dl (8.5-10.1); Creatinine Clr Calc Pharmacy 62.6 ml/min; Est GFR (African American) 98.4 ml/min; Est GFR (Non-African American) 84.9 ml/min; Magnesium 1.8 mg/dl (1.7-2.4); Potassium 3.9 mmol/L (3.5-5.1)
[2021-09-09 06:27] LABS: Basophils # (auto) 0.03 K/uL (0-0.2); Basophils % (auto) 0.3 %; Eosinophils # (auto) 0.05 K/uL (0-0.50); Eosinophils % (auto) 0.4 %; Hematocrit (blood only) 36.5 % (40.1-51.0); Hemoglobin 11.4 g/dl (14.0-18.0); Immature Granulocytes # (auto) 0.09 K/uL (0.00-0.02); Immature Granulocytes % (auto) 0.8 %; Lymphocytes # (auto) 0.38 K/uL (1.2-3.4); Lymphocytes % (auto) 3.3 %; Mean Corpuscular Hgb Conc 31.2 g/dL (32.0-36.0); Mean Corpuscular Volume 89.7 fL (80.0-100.0); Monocytes # (auto) 0.87 K/uL (0.24-0.82); Monocytes % (auto) 7.6 %; Neutrophils # (auto) 10.08 K/uL (1.4-6.5); Neutrophils % (auto) 87.6 %; Platelet Count 140 K/uL (130-400); RBC Morphology Unremarkable; RDW Coefficient of Variation 16.2 % (11.5-14.5); RDW Standard Deviation 51.4 fL (36.4-46.3); Red Blood Count 4.07 M/uL (4.63-6.08)
[2021-09-09] MEDS: IPRATROPIUM BROMIDE NEB SOLN 0.02% 2.5 ML VIAL INH SCH ×4 (07:34→19:39)
[2021-09-09] MEDS: LEVALBUTEROL 1.25MG/0.5ML NEB INH SCH ×4 (07:34→19:39)
[2021-09-09] MEDS ORDERED: ceFAZolin 2000MG 2,000 MG/15 ML SYR IV SCH (09:00)
[2021-09-09] MEDS: ENOXAPARIN INJ 30 MG/0.3 ML SYR SQ SCH (09:02)
[2021-09-09] MEDS: DOXYCYCLINE HYCLATE 100 MG in DEXTROSE 5% 100 ML IV SCH ×2 (09:02→20:03)
[2021-09-09] MEDS: TUBE FEEDING WATER FLUSH PEG SCH ×5 (09:02→17:06)
[2021-09-09] MEDS: FLUTICASONE FUROATE 100MCG 14 PUFFS/INHALER INH SCH (09:03)
[2021-09-09] MEDS: UMECLIDINIUM/VILANTEROL 62.5/25MCG 7 PUFFS/INHALER INH SCH (09:03)
[2021-09-09] MEDS: methylPREDNISolone 40 MG in SYRINGE 0 ML IV SCH (09:03)
[2021-09-09] MEDS: PATIENT'S OWN ENTERAL FEEDING PEG SCH ×4 (09:04→17:06)
[2021-09-09] MEDS: FERROUS SULFATE ELIX 220MG/5ML GT SCH (10:49)
[2021-09-09] MEDS: ASPIRIN 81 MG CHEW GT SCH (10:50)
[2021-09-09] MEDS: ATORVASTATIN 40 MG TAB GT SCH (10:50)
--- NOTE | 2021-09-09 14:59 | Hospitalist Progress Note ---
Date of Service September 09, 2021 Assessment & Plan (1) Severe sepsis: Plan: Severe sepsis secondary to pneumonia likely due to recurrent aspiration with history of nasopharyngeal carcinoma and PEG tube placement Chest x-ray did not show bilateral infiltration more on the right than the left Has been on intravenous Zosyn and doxycycline Sputum culture is growing gram-negative bacilli further identification is pending Blood culture is negative Clinically better and will continue current antibiotic Likely discharge tomorrow (2) Pneumonia: Plan: History of chronic aspiration and chronic bilateral lung changes on scan CT scan during this admissions shows progressive disease involving the right side We will continue management as above (3) Chronic pulmonary aspiration: Plan: History of nasopharyngeal carcinoma status post chemoradiation and surgery Cannot take anything orally and is prevented due to aspiration He continues to aspirate even with PEG tube placement (4) History of coronary artery bypass graft: Plan: Significant CAD status post heart valve replacement No acute chest pain (5) History of heart valve replacement: (6) History of nasopharyngeal cancer: Plan: Is in remission right now (7) Hypertension: Plan: Blood pressure remains on the upper side We will continue current medications Plan DVT prophylaxis. Lovenox subcu Full code Admission and Anticipated Discharge Date Admission Date: September 08, 2021 Subjective 09/09/2021 The patient was seen and examined in medical telemetry unit He has been feeling much better since admission Has minimal shortness of breath at rest but denies any other symptoms No fever and no chills, no abdominal pain, nausea and or vomiting Review of Systems Review of Systems: All systems reviewed and are unremarkable except as noted below Physical Exam Physical Exam: Lying in bed with minimal distress due to shortness of breath Constitutional: + ill appearing and average body habitus Eyes: PERRL, conjunctivae normal, anicteric sclerae ENMT: external ear and nose normal, oropharynx normal Neck: trachea midline, no thyromegaly Respiratory: + respiratory distress (Mild to moderate respiratory distress) Auscultation: + diminished lung sounds and + crackles (Coarse crackles bilaterally) Cardiovascular: Rate/Rhythm: regular rate and regular rhythm; not tachycardic Heart Sounds: normal S1 and normal S2; no murmur Gastrointestinal (Abdomen): Inspection/Auscultation: normal bowel sounds; + abdomen abnormal to inspection (PEG tube in situ without any inflammation) and abdomen not distended Musculoskeletal: No acute arthritis in any joint Neurologic: normal touch/pain/proprioception and CN's II-XI intact bilaterally; + does not move all extremities Psychiatric: A+Ox3, euthymic affect Lymphatic: no cervical or axillary lymphadenopathy Results & Data Results & Data ([facility]) Vital Signs (Past 12 Hours) Vital Signs Temp Pulse Pulse Pulse Resp BP Pulse Ox 09/09/21 14:46 65 18 94 09/09/21 11:20 36.7 C 74 18 161/80 H 97 09/09/21 11:19 74 18 95 09/09/21 09:00 09/09/21 07:18 36.6 C 78 18 135/78 97 09/09/21 07:34 74 18 98 09/09/21 03:22 36.4 C L 86 20 157/84 H 96 O2 Del Method O2 Flow Rate 09/09/21 14:46 Nasal Cannula 2 09/09/21 11:20 Room Air 09/09/21 11:19 Nasal Cannula 3 09/09/21 09:00 Nasal Cannula 4 09/09/21 07:18 Nasal Cannula 4 09/09/21 07:34 Nasal Cannula 4 09/09/21 03:22 4 Laboratory Results Short CBC 09/09/21 Range/Units 05:22 WBC 11.50 H (4.8-10.8) K/ul Hgb 11.4 L (14.0-18.0) g/dl Hct 36.5 L (40.1-51.0) % Plt Count 140 (130-400) K/uL BMP 09/09/21 05:22 Sodium 138 Potassium 3.9 Chloride 100 Carbon Dioxide 31 BUN 34 H D Creatinine 0.83 D Glucose 121 H Calcium 8.6 Medications Administered Current Inpatient Medications Aspirin (Aspirin 81 Mg Chew) 81 mg GT QDL [facility] Stop: 10/08/21 11:29 Last Admin: 09/09/21 10:50 Dose: 81 mg Atorvastatin Calcium (Atorvastatin 40 Mg Tab) 40 mg GT QDL [facility] Stop: 10/08/21 11:29 Last Admin: 09/09/21 10:50 Dose: 40 mg Enoxaparin Sodium (Enoxaparin Inj 30 Mg/0.3 Ml Syr) 30 mg SQ QAM [facility] Stop: 10/08/21 08:59 Last Admin: 09/09/21 09:02 Dose: 30 mg Ferrous Sulfate (Ferrous Sulfate Elix 220mg/5ml) 220 mg GT QDL [facility] Stop: 10/08/21 11:29 Last Admin: 09/09/21 10:49 Dose: 220 mg Fluticasone Furoate (Fluticasone Furoate 100mcg 14 Puffs/Inhaler) 1 puffs INH DAILY [facility] Stop: 10/08/21 08:59 Last Admin: 09/09/21 09:03 Dose: 1 puffs Methylprednisolone 40 mg/ (Syringe) 0.64 mls @ 1.5 mls/min IV DAILY [facility] Stop: 09/12/21 08:59 Last Admin: 09/09/21 09:03 Dose: 1.5 mls/min Doxycycline Hyclate 100 mg/ (Dextrose) 110 mls @ 50 mls/hr IV BID [facility]; Protocol Stop: 09/15/21 08:59 Last Infusion: 09/09/21 11:26 Dose: Infused Piperacillin Sod/Tazobactam (Sod 3.375 gm/ Dextrose) 115 mls @ 28.75 mls/hr IV Q8H [facility]; Protocol Stop: 09/15/21 05:59 Last Admin: 09/09/21 13:07 Dose: 28.8 mls/hr Promethazine HCl 6.25 mg/ (Sodium Chloride) 50.25 mls @ 201 mls/hr IV Q6H PRN PRN Reason: Nausea And Vomiting Stop: 10/08/21 04:57 Acetaminophen (Ofirmev) 1,000 mg in 100 mls @ 400 mls/hr IV Q8H PRN PRN Reason: pain/fever Stop: 09/11/21 04:57 Ipratropium [place] (Ipratropium [place] Neb Soln 0.02% 2.5 Ml Vial) 0.5 mg INH QIDR [facility] Stop: 10/08/21 06:59 Last Admin: 09/09/21 14:46 Dose: 0.5 mg Levalbuterol HCl (Levalbuterol 1.25mg/0.5ml Neb) 1.25 mg INH QIDR [facility] Stop: 10/08/21 06:59 Last Admin: 09/09/21 14:46 Dose: 1.25 mg Nutritional Formula (Patient's Own Enteral Feeding) 250 ml PEG QID@0900,1200,1500,1800 [facility] Stop: 10/08/21 14:59 Last Admin: 09/09/21 11:28 Dose: 250 ml Sterile Water (Tube Feeding Water Flush) 60 ml PEG DAILY@0830 [facility] Stop: 10/09/21 08:29 Last Admin: 09/09/21 09:02 Dose: 60 ml Sterile Water (Tube Feeding Water Flush) 60 ml PEG QID@0900,1200,1500,1800 [facility] Stop: 10/08/21 14:59 Last Admin: 09/09/21 11:29 Dose: 60 ml Umeclidinium/Vilanterol (Umeclidinium/Vilanterol 62.5/25mcg 7 Puffs/Inhaler) 1 puffs INH DAILY [facility] Stop: 10/08/21 08:59 Last Admin: 09/09/21 09:03 Dose: 1 puffs (1) Pneumonia Aspiration pneumonia type: unspecified Laterality: right Lung location: unspecified part of lung Pneumonia type: aspiration pneumonia Qualified Code(s): J69.0 - Pneumonitis due to inhalation of food and vomit
[2021-09-10] MEDS: PIPERACILLIN/TAZOBACTAM 3.375 GM in DEXTROSE 5% 100 ML IV SCH (06:19)
[2021-09-10 07:24] LABS: Basophils # (auto) 0.03 K/uL (0-0.2); Basophils % (auto) 0.2 %; Hematocrit (blood only) 40.5 % (40.1-51.0); Hemoglobin 12.8 g/dl (14.0-18.0); Immature Granulocytes # (auto) 0.29 K/uL (0.00-0.02); Lymphocytes # (auto) 0.72 K/uL (1.2-3.4); Mean Corpuscular Hgb Conc 31.6 g/dL (32.0-36.0); Mean Corpuscular Volume 88.6 fL (80.0-100.0); Monocytes # (auto) 1.26 K/uL (0.24-0.82); Monocytes % (auto) 8.8 %; Neutrophils # (auto) 11.97 K/uL (1.4-6.5); Platelet Count 155 K/uL (130-400); RDW Coefficient of Variation 16.9 % (11.5-14.5); RDW Standard Deviation 51.9 fL (36.4-46.3); Red Blood Count 4.57 M/uL (4.63-6.08); White Blood Count 14.27 K/ul (4.8-10.8)
[2021-09-10] MEDS: IPRATROPIUM BROMIDE NEB SOLN 0.02% 2.5 ML VIAL INH SCH ×3 (07:34→14:59)
[2021-09-10] MEDS: LEVALBUTEROL 1.25MG/0.5ML NEB INH SCH ×3 (07:34→14:59)
[2021-09-10 07:50] LABS: BUN Creatinine Ratio 44.7 (10-20); Calcium 8.7 mg/dl (8.5-10.1); Creatinine Clr Calc Pharmacy 68.4 ml/min; Potassium 3.7 mmol/L (3.5-5.1)
[2021-09-10] MEDS: DOXYCYCLINE HYCLATE 100 MG in DEXTROSE 5% 100 ML IV SCH (09:00)
[2021-09-10] MEDS: TUBE FEEDING WATER FLUSH PEG SCH ×3 (09:03→11:31)
[2021-09-10] MEDS: methylPREDNISolone 40 MG in SYRINGE 0 ML IV SCH (09:03)
[2021-09-10] MEDS: PATIENT'S OWN ENTERAL FEEDING PEG SCH ×2 (09:03→11:31)
[2021-09-10] MEDS: FLUTICASONE FUROATE 100MCG 14 PUFFS/INHALER INH SCH (09:04)
[2021-09-10] MEDS: UMECLIDINIUM/VILANTEROL 62.5/25MCG 7 PUFFS/INHALER INH SCH (09:04)
[2021-09-10] MEDS: ENOXAPARIN INJ 30 MG/0.3 ML SYR SQ SCH (09:05)
[2021-09-10] MEDS: ASPIRIN 81 MG CHEW GT SCH (11:28)
[2021-09-10] MEDS: ATORVASTATIN 40 MG TAB GT SCH (11:29)
[2021-09-10] MEDS: FERROUS SULFATE ELIX 220MG/5ML GT SCH (11:29)
--- NOTE | 2021-09-10 12:47 | Hospitalist Progress Note ---
Date of Service September 10, 2021 Assessment & Plan (1) Severe sepsis: Plan: Severe sepsis secondary to pneumonia likely due to recurrent aspiration with history of nasopharyngeal carcinoma and PEG tube placement Chest x-ray did not show bilateral infiltration more on the right than the left Has been on intravenous Zosyn and doxycycline Sputum culture is growing gram-negative bacilli further identification is pending Blood culture is negative Clinically better and will continue current antibiotic Clinically much better and no signs and or symptoms of infection (2) Pneumonia: Plan: History of chronic aspiration and chronic bilateral lung changes on scan CT scan during this admissions shows progressive disease involving the right side We will continue management as above Sputum culture grew Klebsiella pneumoniae which is pansensitive and Staphylococcus species, further administration is pending but not MRSA Will start oral Keflex and will continue doxycycline to finish the course for a total of 10 days Discharge home this afternoon (3) Chronic pulmonary aspiration: Plan: 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 Lovenox subcu Full code Admission and Anticipated Discharge Date Admission Date: September 08, 2021 Subjective 09/09/2021 The patient was seen and examined in medical telemetry unit He has been feeling much better since admission Has minimal shortness of breath at rest but denies any other symptoms No fever and no chills, no abdominal pain, nausea and or vomiting 09/10/2021 The patient was seen and examined in medical telemetry unit He has been feeling much better and denies any symptoms at rest Has been saturating normally on room air Denies any fever and or chills Review of Systems Review of Systems: All systems reviewed and are unremarkable except as noted below Physical Exam Physical Exam: Lying in bed with minimal distress due to shortness of breath Constitutional: + ill appearing and average body habitus Eyes: PERRL, conjunctivae normal, anicteric sclerae ENMT: external ear and nose normal, oropharynx normal Neck: trachea midline, no thyromegaly Respiratory: + respiratory distress (Mild to moderate respiratory distress) Auscultation: + diminished lung sounds and + crackles (Coarse crackles bilaterally) Cardiovascular: Rate/Rhythm: regular rate and regular rhythm; not tachycardic Heart Sounds: normal S1 and normal S2; no murmur Gastrointestinal (Abdomen): Inspection/Auscultation: normal bowel sounds; + abdomen abnormal to inspection (PEG tube in situ without any inflammation) and abdomen not distended Musculoskeletal: No acute arthritis in any joint Skin: PEG tube insertion site remains intact Neurologic: normal touch/pain/proprioception and CN's II-XI intact bilaterally; + does not move all extremities Psychiatric: A+Ox3, euthymic affect Lymphatic: no cervical or axillary lymphadenopathy Results & Data Results & Data ([facility]) Vital Signs (Past 12 Hours) Vital Signs Temp Pulse Pulse Resp BP Pulse Ox O2 Del Method 09/10/21 11:12 18 92 Room Air 09/10/21 08:01 36.6 C 67 16 169/90 H 100 Nebulizer 09/10/21 07:35 92 H 18 100 Nasal Cannula 09/10/21 06:59 78 09/10/21 04:04 36.8 C 76 18 127/73 95 Nasal Cannula O2 Flow Rate 09/10/21 11:12 09/10/21 08:01 09/10/21 07:35 4 09/10/21 06:59 09/10/21 04:04 4 Laboratory Results Short CBC 09/10/21 Range/Units 07:10 WBC 14.27 H (4.8-10.8) K/ul Hgb 12.8 L (14.0-18.0) g/dl Hct 40.5 (40.1-51.0) % Plt Count 155 (130-400) K/uL BMP 09/10/21 07:10 Sodium 140 Potassium 3.7 Chloride 101 Carbon Dioxide 34 H BUN 34 H Creatinine 0.76 Glucose 77 Calcium 8.7 Medications Administered Current Inpatient Medications Aspirin (Aspirin 81 Mg Chew) 81 mg GT QDL [facility] Stop: 10/08/21 11:29 Last Admin: 09/10/21 11:28 Dose: 81 mg Atorvastatin Calcium (Atorvastatin 40 Mg Tab) 40 mg GT QDL [facility] Stop: 10/08/21 11:29 Last Admin: 09/10/21 11:29 Dose: 40 mg Cephalexin HCl (Cephalexin 500 Mg Cap) 500 mg PO BID [facility] Stop: 09/17/21 20:59 Doxycycline Monohydrate (Doxycycline Susp 25 Mg/5 Ml 60ml) 100 mg PO BID [facility] Stop: 09/17/21 20:59 Enoxaparin Sodium (Enoxaparin Inj 30 Mg/0.3 Ml Syr) 30 mg SQ QAM ROYA Stop: 10/08/21 08:59 Last Admin: 09/10/21 09:05 Dose: 30 mg Ferrous Sulfate (Ferrous Sulfate Elix 220mg/5ml) 220 mg GT QDL ROYA Stop: 10/08/21 11:29 Last Admin: 09/10/21 11:29 Dose: 220 mg Fluticasone Furoate (Fluticasone Furoate 100mcg 14 Puffs/Inhaler) 1 puffs INH DAILY [facility] Stop: 10/08/21 08:59 Last Admin: 09/10/21 09:04 Dose: 1 puffs Methylprednisolone 40 mg/ (Syringe) 0.64 mls @ 1.5 mls/min IV DAILY [facility] Stop: 09/12/21 08:59 Last Admin: 09/10/21 09:03 Dose: 1.5 mls/min Promethazine HCl 6.25 mg/ (Sodium Chloride) 50.25 mls @ 201 mls/hr IV Q6H PRN PRN Reason: Nausea And Vomiting Stop: 10/08/21 04:57 Acetaminophen (Ofirmev) 1,000 mg in 100 mls @ 400 mls/hr IV Q8H PRN PRN Reason: pain/fever Stop: 09/11/21 04:57 Ipratropium [place] (Ipratropium [place] Neb Soln 0.02% 2.5 Ml Vial) 0.5 mg INH QIDR [facility] Stop: 10/08/21 06:59 Last Admin: 09/10/21 11:12 Dose: 0.5 mg Levalbuterol HCl (Levalbuterol 1.25mg/0.5ml Neb) 1.25 mg INH QIDR [facility] Stop: 10/08/21 06:59 Last Admin: 09/10/21 11:12 Dose: 1.25 mg Nutritional Formula (Patient's Own Enteral Feeding) 250 ml PEG QID@0900,1200,1500,1800 [facility] Stop: 10/08/21 14:59 Last Admin: 09/10/21 11:31 Dose: 250 ml Sterile Water (Tube Feeding Water Flush) 60 ml PEG DAILY@0830 [facility] Stop: 10/09/21 08:29 Last Admin: 09/10/21 09:05 Dose: 60 ml Sterile Water (Tube Feeding Water Flush) 60 ml PEG QID@0900,1200,1500,1800 [facility] Stop: 10/08/21 14:59 Last Admin: 09/10/21 11:31 Dose: 60 ml Umeclidinium/Vilanterol (Umeclidinium/Vilanterol 62.5/25mcg 7 Puffs/Inhaler) 1 puffs INH DAILY [facility] Stop: 10/08/21 08:59 Last Admin: 09/10/21 09:04 Dose: 1 puffs (1) Pneumonia Aspiration pneumonia type: unspecified Laterality: right Lung location: unspecified part of lung Pneumonia type: aspiration pneumonia Qualified Code(s): J69.0 - Pneumonitis due to inhalation of food and vomit
[2021-09-10] MEDS ORDERED: DOXYCYCLINE SUSP 25 MG/5 ML 60ML PO SCH (21:00)
[2021-09-10] MEDS ORDERED: cephALEXin 500 MG CAP PO SCH (21:00)
--- NOTE | 2021-09-11 07:52 | Discharge Summary ---
Date of Service September 10, 2021 Admission HPI Per Admitting Provider History obtained from patient, family, and records. Medical history significant for chronic respiratory failure occasional supplemental home O2 use, chronic diastolic heart failure (EF 50 to 55%, TTE 2020) , chronic LBBB, CAD status post CABG, status post bioprosthetic AVR, COPD as per records, chronic pulmonary aspiration status post PEG tube placement, hypertension, hyperlipidemia, nasopharyngeal cancer status post chemoradiation, chronic anemia (baseline hemoglobin of 12 ), past tobacco abuse. Last confinement February 2021 for respiratory failure secondary to aspiration pneumonia. Patient discharged on Augmentin course. 3 days history of junky greenish cough symptoms chills and worsening 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 Hold ELISA with chance of aspiration as per patient. No chest pain. 1 episode of emesis at home. No abdominal pain. No known recent sick contacts. At the ER, SBP noted to be 70s at 1 point. Solu-Medrol, neb treatment, Zosyn, NSS administered at the ER. BiPAP initiated at the ER. Patient adamantly demanded for BiPAP to be taken off. BP currently 130s. 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 Admission Exam Per Admitting Provider Physical Exam: GENERAL: Slightly uncomfortable, nasal speech, minimal respiratory distress SKIN: Pallor, warm HEENT: Pale palpebral conjunctivae, no ptosis, dry buccal mucosa, palatal defect noted, nasal cannula in place NECK : Supple, no tenderness CHEST : Decreased breath sounds, expiratory wheezes, no tenderness HEART : RRR, no obvious murmurs ABDOMEN: Some distention, PEG tube in place, nontender EXTREMITIES : No LE swelling/tenderness, no other conspicuous deformities noted NEUROLOGIC : Coherent, no facial asymmetry, no other gross focality Principal Diagnosis Severe sepsis secondary to pneumonia, aspiration versus CAP, CAD with aortic valve replacement-stable, history of nasopharyngeal cancer with ongoing PEG tube feeding, hypertension Discharge Exam Lying in bed with minimal distress due to shortness of breath Constitutional + ill appearing and average body habitus Eyes PERRL, conjunctivae normal, anicteric sclerae ENMT external ear and nose normal, oropharynx normal Neck trachea midline, no thyromegaly Respiratory + respiratory distress (Mild to moderate respiratory distress) Auscultation: + diminished lung sounds and + crackles (Coarse crackles bilaterally) Cardiovascular Rate/Rhythm: regular rate and regular rhythm; not tachycardic Heart Sounds: normal S1 and normal S2; no murmur Gastrointestinal (Abdomen) Inspection/Auscultation: normal bowel sounds; + abdomen abnormal to inspection (PEG tube in situ without any inflammation) and abdomen not distended Neurologic normal touch/pain/proprioception and CN's II-XI intact bilaterally; + does not move all extremities Psychiatric A+Ox3, euthymic affect Lymphatic no cervical or axillary lymphadenopathy Discharge Data Allergies Allergy/AdvReac Type Severity Reaction Status Date / Time No Known Allergies Allergy Verified 09/07/21 23:07 Consultations 09/07/21 22:59 ED Decision to Admit Stat Ordered Studies 09/07/21 21:59 CT angio chest PE protocol Urgent Hospital Course (1) Severe sepsis: Severe sepsis secondary to pneumonia likely due to recurrent aspiration with history of nasopharyngeal carcinoma and PEG tube placement Chest x-ray did not show bilateral infiltration more on the right than the left Has been on intravenous Zosyn and doxycycline Sputum culture is growing gram-negative bacilli further identification is pending Blood culture is negative Clinically better and will continue current antibiotic Clinically much better and no signs and or symptoms of infection (2) Pneumonia: History of chronic aspiration and chronic bilateral lung changes on scan CT scan during this admissions shows progressive disease involving the right side We will continue management as above Sputum culture grew Klebsiella pneumoniae which is pansensitive and Staphylococcus species, further administration is pending but not MRSA Will start oral Keflex and will continue doxycycline to finish the course for a total of 10 days Discharge home this afternoon (3) Chronic pulmonary aspiration: History of nasopharyngeal carcinoma status post chemoradiation and surgery Cannot take anything orally and is prevented due to aspiration He continues to aspirate even with PEG tube placement Strongly advised to avoid taking food and/or drink through mouth (4) History of coronary artery bypass graft: Significant CAD status post heart valve replacement No acute chest pain (5) History of heart valve replacement: (6) History of nasopharyngeal cancer: Is in remission right now (7) Hypertension: Blood pressure remains on the upper side We will continue current medications Plan DVT prophylaxis. Lovenox subcu Full code Total Time Total Time Spent Total Time Spent (In Minutes): 35 minutes Discharge Plan Discharge Items Patient Disposition: Home - Self-Care Reason For Visit: RESP FAILURE Discharge Diagnosis: Severe sepsis secondary to pneumonia, aspiration versus CAP, CAD with aortic valve replacement-stable, history of nasopharyngeal cancer with ongoing PEG tube feeding, hypertension Condition on Discharge: Fair Activity: Resume your previous activity Non-emergency contact: Primary Care Provider Call non-emergency contact if: you have any medication questions and your symptoms worsen Follow-up/Referrals: Prudencio Burns MD [Primary Care Provider] - (Date & Time 09/17/2021 11:00 AM Provider Prudencio Burns III, MD Department [facility] ) Diet: Other - See Diet Comment Diet Comment: Continue with the PEG tube feeding as before Addtl Attending Provider Instructions: Please take precautions to avoid fall Finish the course of antibiotic as advised Please do not take any food and/or drink orally Please keep appointments with your healthcare providers You can try [id number] probiotics through the PEG tube Pending Studies at Discharge: No Stand-Alone Forms: My [employer], Smoking Cessation Medications and DC Order Prescriptions: New cephalexin 500 mg Capsule 500 mg PO BID Qty: 12 0RF Rx Instructions: Through the PEH tube doxycycline monohydrate 25 mg/5 mL Suspension For Reconstitution 100 mg PO BID Qty: 120 0RF Rx Instructions: Through the PEG tube Continued atorvastatin 40 mg Tablet 40 mg feeding tube QDL nitroglycerin 0.4 mg Tablet, Sublingual 0.4 mg sublingual UD PRN (Reason: Chest Pain) albuterol sulfate [ProAir HFA] 90 mcg/actuation HFA aerosol inhaler 2 inh inhalation Q6H PRN (Reason: shortness of breath or wheezing) Qty: 8.5 0RF aspirin 81 mg Tablet,Chewable 81 mg feeding tube QDL Nutren 2.0 0.08 gram-2 kcal/mL Liquid 1 ea feeding tube TID Trelegy Ellipta 100-62.5-25 mcg blister with device 1 inh INHALATION DAILY oxymetazoline [Nasal [place] (oxymetazoline)] 0.05 % [place],Non-Aerosol 2 spray NA BID PRN (Reason: NOSE BLEED) Qty: 22 0RF Rx Instructions: DO NOT USE FOR MORE THAN 3 DAYS ferrous sulfate 15 mg iron (75 mg)/mL Drops 5 mg QDL Rx Instructions: VIA FEEDING TUBE Saline Mist 0.65 % aerosol,spray 2 spray NA Q4H PRN (Reason: NASAL DRYNESS) Discharge Orders: Discharge Order (Routine); Ordered 09/10/21 Ordered By: Awilda Cartagena Admission Data Admit Date/Time: 09/08/21 01:01 Attending Provider: Awilda Cartagena Admit Provider: Alonso Rodriguez Primary Care Provider: Prudencio Burns Other Providers: Alonso Rodriguez Other Interventions: Discharge Summary Assessment (RN) Last Done: 09/10/21 14:41
== END 2021-09-10 15:09 | disposition home or self-care (01) | DRG 871 ==
LOC: ED 21:26 → 2N 09-08 01:01
DX: E87.2 Acidosis; J44.1 Chronic obstructive pulmonary disease with (acute) exacerbation; Z87.891 Personal history of nicotine dependence; J69.0 Pneumonitis due to inhalation of food and vomit; J96.21 Acute and chronic respiratory failure with hypoxia; Z95.1 Presence of aortocoronary bypass graft; Z95.2 Presence of prosthetic heart valve; A41.9 Sepsis, unspecified organism; I25.2 Old myocardial infarction; Z79.82 Long term (current) use of aspirin; I13.0 Hypertensive heart and chronic kidney disease with heart failure and stage 1 through stage 4 chronic kidney disease, or unspecified chronic kidney disease; I44.7 Left bundle-branch block, unspecified; I50.32 Chronic diastolic (congestive) heart failure; Z79.51 Long term (current) use of inhaled steroids; Z92.3 Personal history of irradiation; Z92.21 Personal history of antineoplastic chemotherapy; E78.5 Hyperlipidemia, unspecified; N18.30 Chronic kidney disease, stage 3 unspecified

== ENCOUNTER 2021-12-28 18:34 | Inpatient (IN) ==
[2021-12-28] MEDS ORDERED: methylPREDNISolone 125 MG/2 ML VIAL IV STA (18:43)
[2021-12-28] MEDS ORDERED: ALBUT/IPRATROP 3MG/0.5MG NEB 3 ML VIAL NEB ONE (18:43)
[2021-12-28] MEDS ORDERED: SODIUM CHLORIDE 0.9% 500 ML IV ONE (19:13)
[2021-12-28 19:21] LABS: HCO3 VBG 35 mmol/L; Oxygen Saturation VBG < 60.0 %; PCO2 VBG 67 mmHg (38-50); PO2 VBG 21 mmHg; pH VBG 7.33 (7.36-7.41)
[2021-12-28 19:38] LABS: Albumin Level 4.2 gm/dl (3.4-5.0); BUN Creatinine Ratio 34.7 (10-20); Bilirubin,Total 0.6 mg/dl (0.2-1.0); Calcium 9.8 mg/dl (8.5-10.1); Creatinine Clr Calc Pharmacy 28.6 ml/min; Est GFR (African American) 45.1 ml/min; Est GFR (Non-African American) 38.9 ml/min; Globulin 4.2 gm/dl (2.5-4.0); Magnesium 2.5 mg/dl (1.7-2.4); Phosphorus 3.7 mg/dl (2.5-4.9); Potassium 4.4 mmol/L (3.5-5.1); Total Protein 8.4 gm/dl (6.0-8.3)
--- NOTE | 2021-12-28 19:40 | XRay Report ---
XR chest 1V portable HISTORY: 76 years-old Male Chest Pain acute chest COMPARISON: Chest radiograph and CTA chest 09/07/2021 TECHNIQUE: AP view of the chest. FINDINGS: The cardiomediastinal and hilar silhouettes are unchanged. Prior median sternotomy. Emphysema with ch ronic interstitial coarsening. Ill-defined mild right basilar airspace opacities. No pneumothorax, pl eural effusion or overt pulmonary edema. IMPRESSION: 1. Emphysema with chronic interstitial coarsening. 2. Subtle right lung base opacities may represent atelectasis versus pneumonia. ACT 112: Negative or not required by law. The above report was generated using voice recognition software. It may contain grammatical, syntax o r spelling errors. Electronically signed by: Marcel Cloud M.D. 12/28/2021 7:04 PM
[2021-12-28 19:44] LABS: Troponin I High Sensitivity 9.3 pg/ml (0-20)
[2021-12-28 19:51] LABS: Hematocrit (blood only) 40.8 % (40.1-51.0); Hemoglobin 13.2 g/dl (14.0-18.0); White Blood Count 16.55 K/ul (4.8-10.8)
[2021-12-28 19:54] LABS: Basophils # (auto) 0.06 K/uL (0-0.2); Basophils % (auto) 0.4 %; Eosinophils # (auto) 0.03 K/uL (0-0.50); Eosinophils % (auto) 0.2 %; Immature Granulocytes # (auto) 0.06 K/uL (0.00-0.02); Immature Granulocytes % (auto) 0.4 %; Lymphocytes # (auto) 0.51 K/uL (1.2-3.4); Lymphocytes % (auto) 3.1 %; Mean Corpuscular Hemoglobin 31.1 pg (25.0-34.0); Mean Corpuscular Hgb Conc 32.4 g/dL (32.0-36.0); Mean Platelet Volume 11.6 fL (9.4-12.4); Monocytes # (auto) 0.93 K/uL (0.24-0.82); Monocytes % (auto) 5.6 %; Neutrophils # (auto) 14.96 K/uL (1.4-6.5); Neutrophils % (auto) 90.3 %; Platelet Count 165 K/uL (130-400); Platelet Estimate Normal (Normal); RDW Coefficient of Variation 14.6 % (11.5-14.5); RDW Standard Deviation 50.8 fL (36.4-46.3); Red Blood Count 4.25 M/uL (4.63-6.08)
[2021-12-28 20:03] LABS: Influenza A virus by PCR Negative (Neg); Influenza B virus by PCR Negative (Neg); RSV by PCR Negative (Neg); SARS CoV2 RNA(COVID-19)Cepheid NEGATIVE (Negative)
[2021-12-28] MEDS ORDERED: PIPERACILLIN/TAZOBACTAM 4.5 GM/120 ML BAG IV ONE (20:14)
--- NOTE | 2021-12-28 20:19 | Emergency Department Note ---
Impression & Plan Acute respiratory failure with hypoxia and hypercapnia, Aspiration pneumonia, Acute renal insufficiency, Elevated lactic acid level ED Provider Note NAME: DAXA WRIGHT AGE: 76 SEX: M ARRIVES VIA: Ambulance INFORMANT: Patient, EMS ED PROVIDER(S): Peewee Burgess MD CHIEF COMPLAINT: Respiratory distress PLAN: Disposition: Admit MEDICAL DECISION MAKING: The patient is a pleasant 76-year-old gentleman with a past medical history of nasopharyngeal cancer, history of G-tube, chronic aspiration risk, CAD, HTN who presents to the emergency department via EMS for evaluation of acute worsening of shortness of breath that began today where he was found to be in the mid 70s on his home 3 L nasal cannula by EMS. He was given nebulizer treatment and 100% O2 and O2 saturations did improve to the low 90s. He reports having acute worsening of shortness of breath today. He denies any nausea, vomiting, diarrhea or urinary symptoms. He does report he instilled coke accidentally into his G-tube last night before going to bed and thinks he may have aspirated overnight. On arrival the patient is acute on chronically ill-appearing but no acute distress, afebrile with heart in the 100s and O2 saturation in the mid 80s. He did have brief hypotension with systolic blood pressure in the 70s and O2 saturation down to the mid 80s on her percent oxygen with continuous DuoNeb which suddenly resolved upon clearing the mucous plug saturating in the mid 90s with blood pressure 90s/60s. I did perform a limited bedside ultrasound and his IVC showed 100% collapse with respiratory variation. Lungs with wheezes and rhonchi bilaterally with mild increased work of breathing. EKG without overt acute ischemia, LBBB, no sgarbossa criteria. WBC 16.5K nonspecific. H/H 13.2/40.8. Platelets within normal limits. VBG with pH of 7.33 with PCO2 of 67. Chemistry with bicarbonate of 35 suggestive of chronic hypercapnia. Creatinine is 1.6 increased from prior consistent with patient's clinically dry appearance. Electrolytes and LFTs without significant abnormality. High-sensitivity troponin 9.3, within normal limits. BNP 150, decreased from 300s in February. Lipase within normal limits. Initial lactic acid 2.3. COVID-19, influenza and RSV PCR's were negative. Chest x-ray with chronic interstitial thickening as well as right basilar opacities which given the context is suspicious for aspiration pneumonia. Blood cultures were ordered and empiric Zosyn ordered. IV fluid hydration given cautiously given history of CHF and 30 cc/kg deferred given patient was fluid responsive. Patient agrees with plan for admission. [facility] will [facility] the patient for admission. Triage Nursing notes reviewed and agree them. Prior medical records reviewed Vital Signs: reviewed and remarkable for tachycardia, hypoxia. Differential diagnosis: Reactive airway disease, pneumonia, pneumothorax, COPD, CHF, infections, cardiac ischemia, pulmonary embolism, musculoskeletal, gastrointestinal, as well as other pathologies. ER treatment provided: See below. Diagnostics interpreted by me: ECG: Normal sinus rhythm, 100 bpm, no ectopy, left bundle branch block, no sgarbossa criteria. QTc 503, QRS 134., Similar to prior EKG. Cardiac Monitoring: An order for continuous cardiac monitoring was placed and demonstrated Normal sinus rhythm, 100 bpm, no ectopy. Laboratory studies: See below Imaging studies: See below Consultation(s): Case was discussed with [facility] who will evaluate the patient for admission. HPI: The patient is a pleasant 76-year-old gentleman with a past medical history of nasopharyngeal cancer, history of G-tube, chronic aspiration risk, CAD, HTN who presents to the emergency department via EMS for evaluation of acute worsening of shortness of breath that began today where he was found to be in the mid 70s on his home 3 L nasal cannula by EMS. He was given nebulizer treatment and 100% O2 and O2 saturations did improve to the low 90s. He reports having acute worsening of shortness of breath today. He denies any nausea, vomiting, diarrhea or urinary symptoms. He does report he instilled coke accidentally into his G-tube last night before going to bed and thinks he may have aspirated overnight. ROS: See above HPI for pertinent positives & negatives. A total of 10 systems reviewed and were otherwise negative. VITALS:See Below PHYSICAL EXAMINATION: GENERAL: Awake, alert, acutely ill-appearing, in moderate respiratory distress HENT: Normocephalic, atraumatic. Oropharynx with dry mucous membranes and otherwise unremarkable. EYES: Normal conjunctiva. Sclera non-icteric. NECK: Supple. No nuchal rigidity. FROM. No JVD. RESPIRATORY: Lungs with wheezes and rhonchi bilaterally with mild increased work of breathing. CARDIAC: Regular rate, normal rhythm. Extremities warm and well perfused. Pulses equal. ABDOMEN: Soft, non-distended. No tenderness to palpation. No rebound or guarding. No masses. RECTAL: Deferred. MUSCULOSKELETAL: Chest examination reveals no tenderness. The back is symmetrical on inspection without obvious abnormality. There is no CVA tenderness to palpation. No joint edema. LOWER EXTREMITIES: Calves are equal size bilaterally and non-tender. No edema. No discoloration. NEURO: Normal sensorium. No sensory or motor deficits noted. SKIN: No rash or jaundice noted. ED COURSE: Critical Care: I have personally spent greater than 75 minutes of critical care time in the direct management of this patient. This includes bedside care, interpretation of diagnostic studies, and testing, discussion with consultants, patient, and family members, and other required patient management activities. This 75 minutes is in excess of all separately billable procedures. Peewee Burgess MD Past Med/Surg History Medical History Acute hypoxemic respiratory failure Acute on chronic diastolic heart failure CAD (coronary artery disease) Cardiac murmur CHILD FROM RHEUMATIC FEVER CHF (congestive heart failure) Chronic pulmonary aspiration CKD (chronic kidney disease) stage 3, GFR 30-59 ml/min Former tobacco use Hearing deficit BILAT History of RI (myocardial infarction) 2017/ [facility] History of nasopharyngeal cancer s/p radiation, chemo- NO PORT ANYMORE CLEARED NOV 2013 History of rheumatic fever Hyperlipidemia Hypertension Left bundle branch block (LBBB) Palate abnormality prosthetic palate Pneumonia Surgical History History of cardiac cath 2017 - RI --> CABG - [facility]- follows w/ Dr. Milton- [facility]/ NO STENTS History of cataract surgery History of colonoscopy with polypectomy 09/25/2018. Propofol given, no issues. History of coronary artery bypass graft One vessel - 2016 - [facility] History of heart valve replacement Bioprosthetic aortic valve - 2016 History of shoulder surgery RIGHT History of tonsillectomy History of tooth extraction History of vascular access device NO LONGER HAS PORT Hx of aortic valve replacement Status post insertion of percutaneous endoscopic gastrostomy (PEG) tube PLACED DUE TO PALATE SURGERY- THEN REMOVED 2014 Family History Father Cancer Liver Cancer Social History Smoking Status: Former smoker Tobacco Type: Cigarettes Second Hand Exposure: No; Hx Alcohol Use: No Hx Substance Use: No Preferred Language: Yemeni Communication Ability: Effective Radio Station Manager Required: No Beliefs That Will Affect Care: None marital status: / Current Living Situation: Alone How many Children do You have: 1 Feels Safe at Home: Yes Assistive Devices: Cane and Walker Allergies Allergies Allergy/AdvReac Type Severity Reaction Status Date / Time No Known Allergies Allergy Verified 12/28/21 21:44 Home Meds Home Medications Medication Instructions Recorded Confirmed atorvastatin 40 mg tablet 40 mg feeding tube QDL 09/18/18 12/28/21 nitroglycerin 0.4 mg sublingual 0.4 mg sublingual UD PRN Chest Pain 09/18/18 12/28/21 tablet aspirin 81 mg chewable tablet 81 mg feeding tube QDL 02/19/21 12/28/21 fluticasone fur. 100 mcg-umeclid 1 inh inhalation DAILY 02/19/21 12/28/21 62.5 mcg-vilant 25 mcg inhalat.powder (Trelegy Ellipta) nutritional supplements 0.08 1 ea feeding tube QID 02/19/21 12/28/21 gram-2 kcal/mL liquid for tube feed (Nutren 2.0) ferrous sulfate 15 mg iron (75 5 ml DAILY 09/07/21 12/28/21 mg)/mL oral drops sodium chloride 0.65 % nasal spray 2 spray NA Q4H PRN NASAL DRYNESS 09/07/21 12/28/21 aerosol (Saline Mist) clotrimazole 1 % topical cream 1 applic topical BID 12/28/21 12/28/21 oxymetazoline 0.05 % nasal spray 2 spray intranasal Q12H PRN .NOSE 12/28/21 12/28/21 (Afrin (oxymetazoline)) BLEEDS prednisone 20 mg tablet 20 mg feeding tube .UD PRN .FLARES 12/28/21 12/28/21 triamcinolone acetonide 0.1 % 1 applic topical BID 12/28/21 12/28/21 topical cream Previous Rx's Medication Instructions Recorded albuterol sulfate 90 mcg/actuation 2 inh inhalation Q6H PRN shortness 05/06/20 aerosol inhaler (ProAir HFA) of breath or wheezing #8.5 grams Results & Data (ED) Vital Signs Vital Signs - 24 hr 12/28/21 18:47 12/28/21 18:47 12/28/21 18:47 Temperature 37.1 C Temperature Source Oral Pulse Rate 111 H Pulse Rate [Finger] Pulse Rhythm [Finger] Pulse Strength [Finger] Respiratory Rate 24 Respiratory Effort / Characteristics Labored Respiratory Depth Normal Shallow Respiratory Pattern Regular Blood Pressure 99/62 L Blood Pressure [Left Arm] Blood Pressure Mean 74 Blood Pressure Mean [Left Arm] Pulse Oximetry 83 L 87 L Oxygen Delivery Method Non-rebreather Non-rebreather Oxygen Flow Rate Sepsis Recent Fever Within 48 Hours No Sepsis New/Unexplained Change in Mental Status No Sepsis Action Taken by Nursing Physician Notified 12/28/21 18:47 12/28/21 19:19 12/28/21 19:13 Temperature 37.1 C Temperature Source Oral Pulse Rate Pulse Rate [Finger] 111 H 90 116 H Pulse Rhythm [Finger] Pulse Strength [Finger] Respiratory Rate 26 H 20 Respiratory Effort / Characteristics Non-Labored Spontaneous Short of Breath Respiratory Depth Shallow Respiratory Pattern Blood Pressure Blood Pressure [Left Arm] 99/62 L Blood Pressure Mean Blood Pressure Mean [Left Arm] 74 Pulse Oximetry 85 L 93 87 L Oxygen Delivery Method Non-rebreather Non-rebreather Oxygen Flow Rate 11 Sepsis Recent Fever Within 48 Hours Sepsis New/Unexplained Change in Mental Status Sepsis Action Taken by Nursing 12/28/21 19:26 12/28/21 19:45 12/28/21 20:25 Temperature Temperature Source Pulse Rate Pulse Rate [Finger] 112 H Pulse Rhythm [Finger] Pulse Strength [Finger] Respiratory Rate 20 Respiratory Effort / Characteristics Respiratory Depth Respiratory Pattern Blood Pressure Blood Pressure [Left Arm] 126/84 Blood Pressure Mean Blood Pressure Mean [Left Arm] 98 Pulse Oximetry 84 L 97 91 Oxygen Delivery Method Other Other Oxygen Flow Rate 9 9 Sepsis Recent Fever Within 48 Hours Sepsis New/Unexplained Change in Mental Status Sepsis Action Taken by Nursing 12/28/21 22:00 Temperature Temperature Source Pulse Rate Pulse Rate [Finger] 97 H Pulse Rhythm [Finger] Regular Pulse Strength [Finger] Normal Respiratory Rate 20 Respiratory Effort / Characteristics Respiratory Depth Respiratory Pattern Blood Pressure Blood Pressure [Left Arm] 81/65 L Blood Pressure Mean Blood Pressure Mean [Left Arm] 70 Pulse Oximetry 95 Oxygen Delivery Method Oxymask Oxygen Flow Rate 10 Sepsis Recent Fever Within 48 Hours Sepsis New/Unexplained Change in Mental Status Sepsis Action Taken by Nursing Laboratory Data Attestation: I reviewed the patient's lab results. Result diagrams: 12/28/21 19:07 12/28/21 19:07 Lab Results 12/28/21 12/28/21 12/28/21 Range/Units 19:04 19:07 19:07 WBC 16.55 H (4.8-10.8) K/ul RBC 4.25 L (4.63-6.08) M/uL Hgb 13.2 L (14.0-18.0) g/dl Hct 40.8 (40.1-51.0) % MCV 96.0 (80.0-100.0) fL MCH 31.1 (25.0-34.0) pg MCHC 32.4 (32.0-36.0) g/dL RDW Std Deviation 50.8 H (36.4-46.3) fL RDW Coeff of Navid 14.6 H (11.5-14.5) % Plt Count 165 (130-400) K/uL MPV 11.6 (9.4-12.4) fL Immature Gran % (Auto) 0.4 % Neut % (Auto) 90.3 % Lymph % (Auto) 3.1 % [place] % (Auto) 5.6 % Eos % (Auto) 0.2 % Baso % (Auto) 0.4 % Neut # (Auto) 14.96 H (1.4-6.5) K/uL Lymph # (Auto) 0.51 L (1.2-3.4) K/uL [place] # (Auto) 0.93 H (0.24-0.82) K/uL Eos # (Auto) 0.03 (0-0.50) K/uL Baso # (Auto) 0.06 (0-0.2) K/uL Immature Gran # (Auto) 0.06 H (0.00-0.02) K/uL Platelet Estimate Normal (Normal) ABG pH (7.35-7.45) ABG pCO2 (35-46) mmHg ABG pO2 (80-95) mmHg ABG HCO3 (19-24) mmol/L ABG O2 Saturation (90-95) % ABG Base Excess (-9-1.8) mEq/L Reed Test (Pos) VBG pH (7.36-7.41) VBG pCO2 (38-50) mmHg VBG pO2 mmHg VBG HCO3 mmol/L VBG O2 Saturation % VBG Base Excess mEq/L Oxygen Given Sodium 140 (136-145) mmol/L Potassium 4.4 (3.5-5.1) mmol/L Chloride 97 L (98-107) mmol/L Carbon Dioxide 35 H (21-32) mmol/L Anion Gap 8 (3-11) BUN 58 H (6-23) mg/dl Creatinine 1.67 H (0.6-1.4) mg/dl Est Cr Clr Drug Dosing 28.6 ml/min Est GFR ( Amer) 45.1 ml/min Est GFR (Non-Af Amer) 38.9 ml/min BUN/Creatinine Ratio 34.7 H (10-20) Glucose 110 H (70-99(Fasting)) mg/dl Lactate (0.4-2.0) mmol/L Calcium 9.8 (8.5-10.1) mg/dl Phosphorus 3.7 (2.5-4.9) mg/dl Magnesium 2.5 H (1.7-2.4) mg/dl Total Bilirubin 0.6 (0.2-1.0) mg/dl AST 33 (13-39) U/L ALT 11 (7-52) U/L Alkaline Phosphatase 80 (34-104) U/L Troponin I High Sens 9.3 D (0-20) pg/ml B-Natriuretic Peptide (0-100) pg/ml Total Protein 8.4 H (6.0-8.3) gm/dl Albumin 4.2 (3.4-5.0) gm/dl Globulin 4.2 H (2.5-4.0) gm/dl Albumin/Globulin Ratio 1.0 (0.9-2) Lipase 62 (11-82) U/L Procalcitonin (0-0.5) ng/ml Nasal Screen MRSA (PCR) (Negative) SARS-CoV-2 (PCR) NEGATIVE (Negative) Influenza Type A (PCR) Negative (Neg) Influenza Type B (PCR) Negative (Neg) RSV (RT-PCR) Negative (Neg) 12/28/21 12/28/21 12/28/21 Range/Units 19:07 19:07 19:07 WBC (4.8-10.8) K/ul RBC (4.63-6.08) M/uL Hgb (14.0-18.0) g/dl Hct (40.1-51.0) % MCV (80.0-100.0) fL MCH (25.0-34.0) pg MCHC (32.0-36.0) g/dL RDW Std Deviation (36.4-46.3) fL RDW Coeff of Navid (11.5-14.5) % Plt Count (130-400) K/uL MPV (9.4-12.4) fL Immature Gran % (Auto) % Neut % (Auto) % Lymph % (Auto) % [place] % (Auto) % Eos % (Auto) % Baso % (Auto) % Neut # (Auto) (1.4-6.5) K/uL Lymph # (Auto) (1.2-3.4) K/uL [place] # (Auto) (0.24-0.82) K/uL Eos # (Auto) (0-0.50) K/uL Baso # (Auto) (0-0.2) K/uL Immature Gran # (Auto) (0.00-0.02) K/uL Platelet Estimate (Normal) ABG pH (7.35-7.45) ABG pCO2 (35-46) mmHg ABG pO2 (80-95) mmHg ABG HCO3 (19-24) mmol/L ABG O2 Saturation (90-95) % ABG Base Excess (-9-1.8) mEq/L Reed Test (Pos) VBG pH 7.33 L (7.36-7.41) VBG pCO2 67 H (38-50) mmHg VBG pO2 21 mmHg VBG HCO3 35 mmol/L VBG O2 Saturation < 60.0 % VBG Base Excess 7.0 mEq/L Oxygen Given Sodium (136-145) mmol/L Potassium (3.5-5.1) mmol/L Chloride (98-107) mmol/L Carbon Dioxide (21-32) mmol/L Anion Gap (3-11) BUN (6-23) mg/dl Creatinine (0.6-1.4) mg/dl Est Cr Clr Drug Dosing ml/min Est GFR ( Amer) ml/min Est GFR (Non-Af Amer) ml/min BUN/Creatinine Ratio (10-20) Glucose (70-99(Fasting)) mg/dl Lactate (0.4-2.0) mmol/L Calcium (8.5-10.1) mg/dl Phosphorus (2.5-4.9) mg/dl Magnesium (1.7-2.4) mg/dl Total Bilirubin (0.2-1.0) mg/dl AST (13-39) U/L ALT (7-52) U/L Alkaline Phosphatase (34-104) U/L Troponin I High Sens (0-20) pg/ml B-Natriuretic Peptide 150 H (0-100) pg/ml Total Protein (6.0-8.3) gm/dl Albumin (3.4-5.0) gm/dl Globulin (2.5-4.0) gm/dl Albumin/Globulin Ratio (0.9-2) Lipase (11-82) U/L Procalcitonin 0.15 (0-0.5) ng/ml Nasal Screen MRSA (PCR) (Negative) SARS-CoV-2 (PCR) (Negative) Influenza Type A (PCR) (Neg) Influenza Type B (PCR) (Neg) RSV (RT-PCR) (Neg) 12/28/21 12/28/21 12/28/21 Range/Units 20:56 21:35 22:19 WBC (4.8-10.8) K/ul RBC (4.63-6.08) M/uL Hgb (14.0-18.0) g/dl Hct (40.1-51.0) % MCV (80.0-100.0) fL MCH (25.0-34.0) pg MCHC (32.0-36.0) g/dL RDW Std Deviation (36.4-46.3) fL RDW Coeff of Navid (11.5-14.5) % Plt Count (130-400) K/uL MPV (9.4-12.4) fL Immature Gran % (Auto) % Neut % (Auto) % Lymph % (Auto) % [place] % (Auto) % Eos % (Auto) % Baso % (Auto) % Neut # (Auto) (1.4-6.5) K/uL Lymph # (Auto) (1.2-3.4) K/uL [place] # (Auto) (0.24-0.82) K/uL Eos # (Auto) (0-0.50) K/uL Baso # (Auto) (0-0.2) K/uL Immature Gran # (Auto) (0.00-0.02) K/uL Platelet Estimate (Normal) ABG pH 7.41 (7.35-7.45) ABG pCO2 50 H (35-46) mmHg ABG pO2 69 L (80-95) mmHg ABG HCO3 32 H (19-24) mmol/L ABG O2 Saturation 96.9 H (90-95) % ABG Base Excess 5.8 H (-9-1.8) mEq/L Reed Test Pos (Pos) VBG pH (7.36-7.41) VBG pCO2 (38-50) mmHg VBG pO2 mmHg VBG HCO3 mmol/L VBG O2 Saturation % VBG Base Excess mEq/L Oxygen Given 9 L Sodium (136-145) mmol/L Potassium (3.5-5.1) mmol/L Chloride (98-107) mmol/L Carbon Dioxide (21-32) mmol/L Anion Gap (3-11) BUN (6-23) mg/dl Creatinine (0.6-1.4) mg/dl Est Cr Clr Drug Dosing ml/min Est GFR ( Amer) ml/min Est GFR (Non-Af Amer) ml/min BUN/Creatinine Ratio (10-20) Glucose (70-99(Fasting)) mg/dl Lactate 2.3 H* (0.4-2.0) mmol/L Calcium (8.5-10.1) mg/dl Phosphorus (2.5-4.9) mg/dl Magnesium (1.7-2.4) mg/dl Total Bilirubin (0.2-1.0) mg/dl AST (13-39) U/L ALT (7-52) U/L Alkaline Phosphatase (34-104) U/L Troponin I High Sens (0-20) pg/ml B-Natriuretic Peptide (0-100) pg/ml Total Protein (6.0-8.3) gm/dl Albumin (3.4-5.0) gm/dl Globulin (2.5-4.0) gm/dl Albumin/Globulin Ratio (0.9-2) Lipase (11-82) U/L Procalcitonin (0-0.5) ng/ml Nasal Screen MRSA (PCR) Negative (Negative) SARS-CoV-2 (PCR) (Negative) Influenza Type A (PCR) (Neg) Influenza Type B (PCR) (Neg) RSV (RT-PCR) (Neg) 12/28/21 Range/Units 22:45 WBC (4.8-10.8) K/ul RBC (4.63-6.08) M/uL Hgb (14.0-18.0) g/dl Hct (40.1-51.0) % MCV (80.0-100.0) fL MCH (25.0-34.0) pg MCHC (32.0-36.0) g/dL RDW Std Deviation (36.4-46.3) fL RDW Coeff of Navid (11.5-14.5) % Plt Count (130-400) K/uL MPV (9.4-12.4) fL Immature Gran % (Auto) % Neut % (Auto) % Lymph % (Auto) % [place] % (Auto) % Eos % (Auto) % Baso % (Auto) % Neut # (Auto) (1.4-6.5) K/uL Lymph # (Auto) (1.2-3.4) K/uL [place] # (Auto) (0.24-0.82) K/uL Eos # (Auto) (0-0.50) K/uL Baso # (Auto) (0-0.2) K/uL Immature Gran # (Auto) (0.00-0.02) K/uL Platelet Estimate (Normal) ABG pH (7.35-7.45) ABG pCO2 (35-46) mmHg ABG pO2 (80-95) mmHg ABG HCO3 (19-24) mmol/L ABG O2 Saturation (90-95) % ABG Base Excess (-9-1.8) mEq/L Reed Test (Pos) VBG pH (7.36-7.41) VBG pCO2 (38-50) mmHg VBG pO2 mmHg VBG HCO3 mmol/L VBG O2 Saturation % VBG Base Excess mEq/L Oxygen Given Sodium (136-145) mmol/L Potassium (3.5-5.1) mmol/L Chloride (98-107) mmol/L Carbon Dioxide (21-32) mmol/L Anion Gap (3-11) BUN (6-23) mg/dl Creatinine (0.6-1.4) mg/dl Est Cr Clr Drug Dosing ml/min Est GFR ( Amer) ml/min Est GFR (Non-Af Amer) ml/min BUN/Creatinine Ratio (10-20) Glucose (70-99(Fasting)) mg/dl Lactate 2.8 H* (0.4-2.0) mmol/L Calcium (8.5-10.1) mg/dl Phosphorus (2.5-4.9) mg/dl Magnesium (1.7-2.4) mg/dl Total Bilirubin (0.2-1.0) mg/dl AST (13-39) U/L ALT (7-52) U/L Alkaline Phosphatase (34-104) U/L Troponin I High Sens (0-20) pg/ml B-Natriuretic Peptide (0-100) pg/ml Total Protein (6.0-8.3) gm/dl Albumin (3.4-5.0) gm/dl Globulin (2.5-4.0) gm/dl Albumin/Globulin Ratio (0.9-2) Lipase (11-82) U/L Procalcitonin (0-0.5) ng/ml Nasal Screen MRSA (PCR) (Negative) SARS-CoV-2 (PCR) (Negative) Influenza Type A (PCR) (Neg) Influenza Type B (PCR) (Neg) RSV (RT-PCR) (Neg) Administered Medications Sodium Chloride (Nss 1000ml) 1,000 mls @ 200 mls/hr IV .Q5H ONE Stop: 12/29/21 01:59 Last Admin: 12/28/21 21:51 Dose: 100 mls/hr Documented By: JEFF Doxycycline Hyclate 100 mg/ (Dextrose) 110 mls @ 50 mls/hr IV NOW STA Stop: 12/29/21 01:47 Last Admin: 12/29/21 01:07 Dose: 50 mls/hr Documented By: JEFF Discontinued Medications Albuterol (Albut/Ipratrop 3mg/0.5mg Neb 3 Ml Vial) 12 ml NEB ONE ONE; Protocol Stop: 12/28/21 18:44 Last Admin: 12/28/21 19:13 Dose: 12 ml Documented By: NAEEM Sodium Chloride (Nss) 500 mls @ 999 mls/hr IV .Q31M ONE Stop: 12/28/21 19:43 Last Infusion: 12/28/21 20:24 Dose: 0 mls/hr Documented By: Admin: 12/28/21 19:37 Dose: 999 mls/hr Documented By: JEFF Piperacillin Sod/Tazobactam Sod (Zosyn) 4.5 gm in 120 mls @ 30 mls/hr IV NOW ONE Stop: 12/29/21 00:13 Last Infusion: 12/28/21 21:51 Dose: 0 mls/hr Documented By: Admin: 12/28/21 21:15 Dose: 30 mls/hr Documented By: JEFF Methylprednisolone (Methylprednisolone 125 Mg/2 Ml Vial) 125 mg IV NOW STA Stop: 12/28/21 18:44 Last Admin: 12/28/21 19:12 Dose: 125 mg Documented By: JEFF Imaging Data Radiologist's Impression: Chest X-Ray 12/28/21 18:40 XR chest 1V portable HISTORY: 76 years-old Male Chest Pain acute chest COMPARISON: Chest radiograph and CTA chest 09/07/2021 TECHNIQUE: AP view of the chest. FINDINGS: The cardiomediastinal and hilar silhouettes are unchanged. Prior median sternotomy. Emphysema with chronic interstitial coarsening. Ill-defined mild right basilar airspace opacities. No pneumothorax, pleural effusion or overt pulmonary edema. IMPRESSION: 1. Emphysema with chronic interstitial coarsening. 2. Subtle right lung base opacities may represent atelectasis versus pneumonia. ACT 112: Negative or not required by law. The above report was generated using voice recognition software. It may contain grammatical, syntax or spelling errors. Electronically signed by: Marcel Cloud M.D. 12/28/2021 7:04 PM Discharge Plan Visit Data Chief Complaint: Shortness of Breath/Dyspnea ED Provider: Peewee Burgess Discharge Problem: Acute respiratory failure with hypoxia and hypercapnia, Aspiration pneumonia, Acute renal insufficiency, Elevated lactic acid level Patient Disposition: Admitted As Inpatient Discharge Instructions Interventions: ED Discharge Assessment Last Done: 12/29/21 00:48
[2021-12-28] MEDS ORDERED: SODIUM CHLORIDE 0.9% 1000ML 1,000 ML IV ONE (21:00)
[2021-12-28 21:43] LABS: Base Excess ABG 5.8 mEq/L (-9-1.8); HCO3 ABG 32 mmol/L (19-24); Oxygen Saturation ABG 96.9 % (90-95); PCO2 ABG 50 mmHg (35-46); PO2 ABG 69 mmHg (80-95); pH ABG 7.41 (7.35-7.45)
[2021-12-28 21:44] LABS: Allen Test Pos (Pos)
--- NOTE | 2021-12-28 23:35 | History & Physical Report ---
Date of Service December 28, 2021 Assessment & Plan (1) Severe sepsis: Plan: SIRS plus hypoxemic respiratory failure plus lactic acidosis Likely secondary to recurrent aspiration pneumonia, history PEG tube placement COPD exacerbation secondary to above acute on chronic respiratory failure ARF, hypovolemia secondary to illness Troponin elevation secondary to illness chronic diastolic heart failure, patient on the dry side chronic LBBB hx CAD status post CABG, status post bioprosthetic AVR hyperlipidemia, on statin Rx nasopharyngeal cancer status post chemoradiation, in remission chronic anemia, hemoglobin at baseline Hyperglycemia rule out DM past tobacco abuse PCU given hypotension CS, Zosyn, doxycycline Continue aspiration precautions Nebs RTC, steroid course Pulmonary consult if without improvement IVF, follow lactic acid and kidney function Renal ultrasound if no improvement in kidney function Check hemoglobin A1c DVT prophylaxis. Heparin subcu Full code Total critical care time was 40 minutes. Patient son requesting updates for providers. Mr. Anthony Dodson, contact #[phone]. Text document was generated using Familiar voice recognition software. It may contain grammatical or spelling errors. Kindly contact undersigned for clarification of any documentation item in question. History of Present Illness Chief Complaint: Cough, shortness of breath Primary Care Provider: Prudencio Burns MD History obtained from patient, family, and records. Medical history significant for chronic respiratory failure occasional supplemental home O2 use, chronic diastolic heart failure (EF 50 to 55%, TTE 2020) , chronic LBBB, CAD status post CABG, status post bioprosthetic AVR, COPD as per records, chronic pulmonary aspiration status post PEG tube placement, hypertension, hyperlipidemia, nasopharyngeal cancer status post chemoradiation, chronic anemia (baseline hemoglobin of 12 ), past tobacco abuse. Last confinement September 2021 for sepsis secondary to aspiration pneumonia. Patient introduced orange soda in his G-tube yesterday. Subsequently noted stomach upset causing him to vomit. Cough symptoms a little more than usual. Worsening 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 No chest pain. Patient brought to the ER for evaluation by EMS. O2 sats noted to be 80s, SBP noted to be 80s at 1 point. Zosyn, Solu-Medrol, and neb treatment administered at the ER. 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 Allergies Allergy/AdvReac Type Severity Reaction Status Date / Time No Known Allergies Allergy Verified 12/28/21 21:44 Home Medications Medication Instructions Recorded Confirmed Type atorvastatin 40 mg tablet 40 mg feeding tube QDL 09/18/18 12/28/21 History nitroglycerin 0.4 mg sublingual 0.4 mg sublingual UD PRN Chest Pain 09/18/18 12/28/21 History tablet albuterol sulfate 90 mcg/actuation 2 inh inhalation Q6H PRN shortness 05/06/20 12/28/21 Rx aerosol inhaler (ProAir HFA) of breath or wheezing #8.5 grams aspirin 81 mg chewable tablet 81 mg feeding tube QDL 02/19/21 12/28/21 History fluticasone fur. 100 mcg-umeclid 1 inh inhalation DAILY 02/19/21 12/28/21 History 62.5 mcg-vilant 25 mcg inhalat.powder (Trelegy Ellipta) nutritional supplements 0.08 1 ea feeding tube QID 02/19/21 12/28/21 History gram-2 kcal/mL liquid for tube feed (Nutren 2.0) ferrous sulfate 15 mg iron (75 5 ml DAILY 09/07/21 12/28/21 History mg)/mL oral drops sodium chloride 0.65 % nasal spray 2 spray NA Q4H PRN NASAL DRYNESS 09/07/21 12/28/21 History aerosol (Saline Mist) clotrimazole 1 % topical cream 1 applic topical BID 12/28/21 12/28/21 History oxymetazoline 0.05 % nasal spray 2 spray intranasal Q12H PRN .NOSE 12/28/21 12/28/21 History (Afrin (oxymetazoline)) BLEEDS prednisone 20 mg tablet 20 mg feeding tube .UD PRN .FLARES 12/28/21 12/28/21 History triamcinolone acetonide 0.1 % 1 applic topical BID 12/28/21 12/28/21 History topical cream Past Med/Surg History Medical History Acute hypoxemic respiratory failure Acute on chronic diastolic heart failure CAD (coronary artery disease) Cardiac murmur CHILD FROM RHEUMATIC FEVER CHF (congestive heart failure) Chronic pulmonary aspiration CKD (chronic kidney disease) stage 3, GFR 30-59 ml/min Former tobacco use Hearing deficit BILAT History of OR (myocardial infarction) 2017/ [facility] History of nasopharyngeal cancer s/p radiation, chemo- NO PORT ANYMORE CLEARED NOV 2013 History of rheumatic fever Hyperlipidemia Hypertension Left bundle branch block (LBBB) Palate abnormality prosthetic palate Pneumonia Surgical History History of cardiac cath 2017 - OR --> CABG - [facility]- follows w/ Dr. Milton- [facility]/ NO STENTS History of cataract surgery History of colonoscopy with polypectomy 09/25/2018. Propofol given, no issues. History of coronary artery bypass graft One vessel - 2016 - [facility] [place] History of heart valve replacement Bioprosthetic aortic valve - 2016 History of shoulder surgery RIGHT History of tonsillectomy History of tooth extraction History of vascular access device NO LONGER HAS PORT Hx of aortic valve replacement Status post insertion of percutaneous endoscopic gastrostomy (PEG) tube PLACED DUE TO PALATE SURGERY- THEN REMOVED 2014 Family History Father Cancer Liver Cancer Social History Smoking Status: Former smoker Tobacco Type: Cigarettes Second Hand Exposure: No; Do You Dip or Chew Tobacco: No; Hx Alcohol Use: No Hx Substance Use: No Preferred Language: Swedish Communication Ability: Effective 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 Required: No Beliefs That Will Affect Care: None marital status: / Current Living Situation: Alone How many Children do You have: 1 Feels Safe at Home: Yes Assistive Devices: Cane and Oxygen - Continuous Review of Systems Review of Systems: As per HPI, all other systems reviewed and negative Physical Exam Physical Exam: GENERAL: Slightly uncomfortable, nasal speech, minimal respiratory distress SKIN: Pallor, warm HEENT: Pale palpebral conjunctivae, no ptosis, dry buccal mucosa, palatal defect noted, O2 mask in place NECK : Supple, no tenderness CHEST : Decreased breath sounds, expiratory wheezes, no tenderness HEART : RRR, no obvious murmurs ABDOMEN: Some distention, PEG tube in place, nontender EXTREMITIES : No LE swelling/tenderness, no other conspicuous deformities noted NEUROLOGIC : Coherent, no facial asymmetry, no other gross focality Results & Data Results & Data ([facility]) Vital Signs (Past 12 Hours) Vital Signs Temp Pulse Pulse Resp BP BP Pulse Ox 12/28/21 22:00 97 H 20 81/65 L 95 12/28/21 20:25 112 H 20 126/84 91 12/28/21 19:45 97 12/28/21 19:26 84 L 12/28/21 19:13 116 H 87 L 12/28/21 19:19 90 20 93 12/28/21 18:47 37.1 C 111 H 26 H 99/62 L 85 L 12/28/21 18:47 87 L 12/28/21 18:47 37.1 C 111 H 24 99/62 L 83 L O2 Del Method O2 Flow Rate 12/28/21 22:00 Oxymask 10 12/28/21 20:25 Other 12/28/21 19:45 9 12/28/21 19:26 Other 9 12/28/21 19:13 Non-rebreather 12/28/21 19:19 Non-rebreather 11 12/28/21 18:47 12/28/21 18:47 Non-rebreather 12/28/21 18:47 Non-rebreather Laboratory Results Laboratory Results WBC 16.55 K/ul (4.8-10.8) H 12/28/21 19:07 RBC 4.25 M/uL (4.63-6.08) L 12/28/21 19:07 Hgb 13.2 g/dl (14.0-18.0) L 12/28/21 19:07 Hct 40.8 % (40.1-51.0) 12/28/21 19:07 MCV 96.0 fL (80.0-100.0) 12/28/21 19:07 MCH 31.1 pg (25.0-34.0) 12/28/21 19:07 MCHC 32.4 g/dL (32.0-36.0) 12/28/21 19:07 RDW Std Deviation 50.8 fL (36.4-46.3) H 12/28/21 19:07 RDW Coeff of Navid 14.6 % (11.5-14.5) H 12/28/21 19:07 Plt Count 165 K/uL (130-400) 12/28/21 19:07 MPV 11.6 fL (9.4-12.4) 12/28/21 19:07 Immature Gran % (Auto) 0.4 % 12/28/21 19:07 Neut % (Auto) 90.3 % 12/28/21 19:07 Lymph % (Auto) 3.1 % 12/28/21 19:07 [place] % (Auto) 5.6 % 12/28/21 19:07 Eos % (Auto) 0.2 % 12/28/21 19:07 Baso % (Auto) 0.4 % 12/28/21 19:07 Neut # (Auto) 14.96 K/uL (1.4-6.5) H 12/28/21 19:07 Lymph # (Auto) 0.51 K/uL (1.2-3.4) L 12/28/21 19:07 [place] # (Auto) 0.93 K/uL (0.24-0.82) H 12/28/21 19:07 Eos # (Auto) 0.03 K/uL (0-0.50) 12/28/21 19:07 Baso # (Auto) 0.06 K/uL (0-0.2) 12/28/21 19:07 Immature Gran # (Auto) 0.06 K/uL (0.00-0.02) H 12/28/21 19:07 Platelet Estimate Normal (Normal) 12/28/21 19:07 ABG pH 7.41 (7.35-7.45) 12/28/21 21:35 ABG pCO2 50 mmHg (35-46) H 12/28/21 21:35 ABG pO2 69 mmHg (80-95) L 12/28/21 21:35 ABG HCO3 32 mmol/L (19-24) H 12/28/21 21:35 ABG O2 Saturation 96.9 % (90-95) H 12/28/21 21:35 ABG Base Excess 5.8 mEq/L (-9-1.8) H 12/28/21 21:35 Reed Test Pos (Pos) 12/28/21 21:35 VBG pH 7.33 (7.36-7.41) L 12/28/21 19:07 VBG pCO2 67 mmHg (38-50) H 12/28/21 19:07 VBG pO2 21 mmHg 12/28/21 19:07 VBG HCO3 35 mmol/L 12/28/21 19:07 VBG O2 Saturation < 60.0 % 12/28/21 19:07 VBG Base Excess 7.0 mEq/L 12/28/21 19:07 Oxygen Given 9 L 12/28/21 21:35 Sodium 140 mmol/L (136-145) 12/28/21 19:07 Potassium 4.4 mmol/L (3.5-5.1) 12/28/21 19:07 Chloride 97 mmol/L (98-107) L 12/28/21 19:07 Carbon Dioxide 35 mmol/L (21-32) H 12/28/21 19:07 Anion Gap 8 (3-11) 12/28/21 19:07 BUN 58 mg/dl (6-23) H 12/28/21 19:07 Creatinine 1.67 mg/dl (0.6-1.4) H 12/28/21 19:07 Est Cr Clr Drug Dosing 28.6 ml/min 12/28/21 19:07 Est GFR ( Amer) 45.1 ml/min 12/28/21 19:07 Est GFR (Non-Af Amer) 38.9 ml/min 12/28/21 19:07 BUN/Creatinine Ratio 34.7 (10-20) H 12/28/21 19:07 Glucose 110 mg/dl (70-99(Fasting)) H 12/28/21 19:07 Lactate 2.8 mmol/L (0.4-2.0) H* 12/28/21 22:45 Calcium 9.8 mg/dl (8.5-10.1) 12/28/21 19:07 Phosphorus 3.7 mg/dl (2.5-4.9) 12/28/21 19:07 Magnesium 2.5 mg/dl (1.7-2.4) H 12/28/21 19:07 Total Bilirubin 0.6 mg/dl (0.2-1.0) 12/28/21 19:07 AST 33 U/L (13-39) 12/28/21 19:07 ALT 11 U/L (7-52) 12/28/21 19:07 Alkaline Phosphatase 80 U/L (34-104) 12/28/21 19:07 Troponin I High Sens 9.3 pg/ml (0-20) D 12/28/21 19:07 B-Natriuretic Peptide 150 pg/ml (0-100) H 12/28/21 19:07 Total Protein 8.4 gm/dl (6.0-8.3) H 12/28/21 19:07 Albumin 4.2 gm/dl (3.4-5.0) 12/28/21 19:07 Globulin 4.2 gm/dl (2.5-4.0) H 12/28/21 19:07 Albumin/Globulin Ratio 1.0 (0.9-2) 12/28/21 19:07 Lipase 62 U/L (11-82) 12/28/21 19:07 Procalcitonin 0.15 ng/ml (0-0.5) 12/28/21 19:07 Nasal Screen MRSA (PCR) Negative (Negative) 12/28/21 22:19 SARS-CoV-2 (PCR) NEGATIVE (Negative) 12/28/21 19:04 Influenza Type A (PCR) Negative (Neg) 12/28/21 19:04 Influenza Type B (PCR) Negative (Neg) 12/28/21 19:04 RSV (RT-PCR) Negative (Neg) 12/28/21 19:04 Impressions Chest X-Ray 12/28/21 18:40 XR chest 1V portable HISTORY: 76 years-old Male Chest Pain acute chest COMPARISON: Chest radiograph and CTA chest 09/07/2021 TECHNIQUE: AP view of the chest. FINDINGS: The cardiomediastinal and hilar silhouettes are unchanged. Prior median sternotomy. Emphysema with chronic interstitial coarsening. Ill-defined mild right basilar airspace opacities. No pneumothorax, pleural effusion or overt pulmonary edema. IMPRESSION: 1. Emphysema with chronic interstitial coarsening. 2. Subtle right lung base opacities may represent atelectasis versus pneumonia. ACT 112: Negative or not required by law. The above report was generated using voice recognition software. It may contain grammatical, syntax or spelling errors. Electronically signed by: Marcel Cloud M.D. 12/28/2021 7:04 PM Diagnostic Findings EKG as per my interpretation : Rate 100, NSR, LAD, LAFB, LBBB
[2021-12-28] MEDS ORDERED: DOXYCYCLINE HYCLATE 100 MG in DEXTROSE 5% 100 ML IV STA (23:36)
[2021-12-28] MEDS ORDERED: ACETAMINOPHEN 1,000 MG/100 ML VIAL IV PRN (23:42)
[2021-12-29] MEDS ORDERED: XOPENEX/ATROVENT 1.25mg/0.5MG NEB COMBO NEB SCH (01:23)
[2021-12-29] MEDS ORDERED: PROMETHAZINE HCL 12.5 MG in SODIUM CHLORIDE 0.9% 50 ML IV PRN (01:23)
[2021-12-29] MEDS: LEVALBUTEROL 1.25MG/0.5ML NEB INH SCH ×4 (01:44→19:12)
[2021-12-29] MEDS: IPRATROPIUM BROMIDE NEB SOLN 0.02% 2.5 ML VIAL INH SCH ×4 (01:44→19:12)
[2021-12-29] MEDS ORDERED: SODIUM CHLORIDE 0.9% 1000ML 1,000 ML IV ONE (02:00)
[2021-12-29 02:33] LABS: BUN Creatinine Ratio 32.4 (10-20); Calcium 8.7 mg/dl (8.5-10.1); Creatinine Clr Calc Pharmacy 27.1 ml/min; Est GFR (African American) 42.3 ml/min; Est GFR (Non-African American) 36.5 ml/min; Potassium 4.1 mmol/L (3.5-5.1)
[2021-12-29] MEDS: PIPERACILLIN/TAZOBACTAM 3.375 GM in DEXTROSE 5% 100 ML IV SCH ×3 (02:39→17:11)
[2021-12-29 02:45] LABS: Basophils # (auto) 0.03 K/uL (0-0.2); Basophils % (auto) 0.2 %; Hematocrit (blood only) 36.8 % (40.1-51.0); Hemoglobin 11.7 g/dl (14.0-18.0); Immature Granulocytes # (auto) 0.04 K/uL (0.00-0.02); Immature Granulocytes % (auto) 0.3 %; Lymphocytes # (auto) 0.21 K/uL (1.2-3.4); Lymphocytes % (auto) 1.5 %; Mean Corpuscular Hemoglobin 30.6 pg (25.0-34.0); Mean Corpuscular Hgb Conc 31.8 g/dL (32.0-36.0); Mean Corpuscular Volume 96.3 fL (80.0-100.0); Monocytes # (auto) 0.34 K/uL (0.24-0.82); Monocytes % (auto) 2.4 %; Neutrophils # (auto) 13.62 K/uL (1.4-6.5); Neutrophils % (auto) 95.6 %; Platelet Count 138 K/uL (130-400); Platelet Estimate Normal (Normal); RDW Coefficient of Variation 14.9 % (11.5-14.5); RDW Standard Deviation 52.5 fL (36.4-46.3); Red Blood Count 3.82 M/uL (4.63-6.08); White Blood Count 14.24 K/ul (4.8-10.8)
[2021-12-29] MEDS ORDERED: GLUCOSE 40% GEL 15 GM TUBE PO PRN (03:12)
[2021-12-29] MEDS ORDERED: GLUCAGON FOR INJ 1 MG VIAL SQ PRN (03:12)
[2021-12-29] MEDS ORDERED: GLUCOSE 10 TAB/TUBE PO PRN (03:12)
[2021-12-29] MEDS ORDERED: DEXTROSE 50% 50 ML SYRINGE IV PRN (03:12)
[2021-12-29] MEDS ORDERED: CARBOHYDRATES FOR HYPOGLYCEMIA PO PRN (03:12)
[2021-12-29] MEDS: LANTUS PER UNIT CHARGE SQ SCH (03:46)
[2021-12-29] MEDS: INSULIN ASPART PER UNIT SC SCH ×5 (03:46→23:58)
[2021-12-29] MEDS: HEPARIN SOD 5,000 UNIT/0.5 ML VIAL SQ SCH ×3 (06:20→22:49)
[2021-12-29 06:36] LABS: BUN Creatinine Ratio 32.5 (10-20); Calcium 8.7 mg/dl (8.5-10.1); Creatinine Clr Calc Pharmacy 29.3 ml/min; Est GFR (African American) 46.4 ml/min; Potassium 4.1 mmol/L (3.5-5.1)
[2021-12-29 07:12] LABS: Estimated Average Glucose 117 mg/dl; Hemoglobin A1C 5.7 % (4.5-5.6)
[2021-12-29] MEDS: SODIUM CHLORIDE 0.9% 1000ML 1,000 ML IV SCH ×3 (07:12→17:36)
[2021-12-29] MEDS: FERROUS SULFATE 325 MG/7.4 ML UDP GT SCH (08:58)
[2021-12-29] MEDS ORDERED: NON-FORMULARY MEDICATION (Fluticasone-Umeclidin-Vilanter [Trelegy Ellipta] 100-62.5-25 mcg INH SCH (09:00)
[2021-12-29] MEDS ORDERED: NUTRITIONAL SUPPLEMENTS feeding tube SCH (09:00)
[2021-12-29] MEDS ORDERED: [UNRECOGNIZED DRUG - OTHER] feeding tube SCH (09:00)
[2021-12-29] MEDS: methylPREDNISolone 40 MG in SYRINGE 0 ML IV SCH (10:13)
[2021-12-29] MEDS: FLUTICASONE FUROATE 100MCG 14 PUFFS/INHALER INH SCH (10:13)
[2021-12-29] MEDS: UMECLIDINIUM/VILANTEROL 62.5/25MCG 7 PUFFS/INHALER INH SCH (10:14)
--- NOTE | 2021-12-29 12:41 | Ultrasound Report ---
US renal/blad retro comp CLINICAL HISTORY: renal failure TECHNIQUE: Multiple sonographic real-time images of the kidneys and bladder were obtained. COMPARISON: None available at the time of this dictation. FINDINGS: The right kidney measures 8.5 cm in length, and the left kidney measures 9.2 cm in length. The right kidney is diminutive in size with cortical thinning noted. No hydronephrosis is identified. No renal lesion is identified. No perinephric fluid collection is seen. The left kidney is diminutive in size with cortical thinning noted. No hydronephrosis is identified. A left parapelvic cyst is seen. No perinephric fluid collection is seen. The bladder is partially distended. Incidental note is made of a prominent prostate gland. IMPRESSION: Bilateral renal atrophy without evidence of Hydronephrosis or other acute abnormality. ACT 112: Negative or not required by law. Electronically signed by: Cresencio Esposito M.D. 12/29/2021 12:38 PM
[2021-12-29] MEDS: DOXYCYCLINE HYCLATE 100 MG in DEXTROSE 5% 100 ML IV SCH (13:18)
[2021-12-29] MEDS: ASPIRIN 81 MG CHEW PEG SCH (13:19)
[2021-12-29] MEDS: ATORVASTATIN 40 MG TAB GT SCH (13:19)
--- NOTE | 2021-12-29 15:37 | Hospitalist Progress Note ---
Date of Service December 29, 2021 Assessment & Plan (1) Aspiration pneumonia: Plan 76-year-old male with PMH of chronic respiratory failure on 2 L nasal cannula oxygen at home, chronic diastolic heart failure [EF 50 to 55%, TTE 2020], chronic LBBB, CAD status post CABG, status post bioprosthetic AVR, COPD, chronic pulmonary aspiration status post PEG tube placement, HTN, HLD, nasopharyngeal cancer status post chemoradiation, chronic anemia [baseline hemoglobin 12], past tobacco abuse presented to our ED 12/28 with complaint of increasing cough symptoms and worsening shortness of breath after apparently introducing orange soda via G-tube the day prior to arrival and subsequently followed by stomach upset and vomiting. Severe sepsis POA: WBC, lactic acid, pulse rate elevated at admission on the background of likely aspiration pneumonia. Likely aspiration pneumonia: Has history of nasopharyngeal cancer status post chemoradiation, chronic pulmonary aspiration status post PEG tube placement, does not take anything by mouth. Acute on chronic respiratory failure: Uses 2 L oxygen at home, needed high flow oxygen at presentation. Patient presented with shortness of breath and increased cough after likely aspiration event [see above] Admitting CXR: 1. Emphysema with chronic interstitial coarsening. 2. Subtle right lung base opacities may represent atelectasis versus pneumonia. Lactic acid was elevated, status post IV fluid resuscitation, lactate trending down, follow-up lactate until normal. Patient started on Zosyn and doxycycline, continue with same. Follow admitting blood culture. Patient reports feeling better, has been afebrile, blood pressure has improved, WBC trending down. Continue with aspiration precaution, patient on PEG tube feeding. Likely COPD exacerbation: Patient wheezing on exam, likely secondary to aspiration pneumonia, patient on antibiotic, continue with Solu-Medrol. Continue with [facility] RTC. Acute kidney failure: Admitting creatinine of 1.67, baseline creatinine less than 1.0, likely secondary to hypovolemia secondary to acute illness. Bilateral renal ultrasound with bilateral renal atrophy without evidence of hydronephrosis or other acute abnormality. Continue with IV fluid. BMP in AM. Other chronic medical conditions: Chronic diastolic heart failure, chronic LBBB, CAD status post CABG, ASD status post bioprosthetic AVR, HLD on statin, nasopharyngeal cancer status post chemoradiation/in remission, chronic anemia, past tobacco abuse Continue with/resume home meds as and when able. Monitor for volume overload as patient is on IV fluid. DVT prophylaxis: Heparin subcu Full code Patient's son Mr. Anthony Dodson, contact #[phone]. given phone call and updated. Admission and Anticipated Discharge Date Admission Date: December 28, 2021 Subjective Patient seen and examined at bedside as a follow-up of severe sepsis likely secondary to aspiration pneumonia, lactic acidosis, likely COPD exacerbation, acute renal failure. Patient was sitting up in bed, on 2 L oxygen by oxygen mask, reports feeling better, denies any new acute events overnight, denies fever/chills/chest pain/sore throat/palpitations/belly pain/other review of symptoms. Physical Exam Physical Exam: GENERAL: Alert and oriented x3. NAD, on 2L O2 via Oxymask. Nasal speech. HEENT: No pallor, no icterus. Pupils equal, round and reactive to light. Oral mucosa moist. Palatal defect +. NECK: No JVD, no neck masses. HEART: S1 and S2 heard. Regular rate and rhythm. No murmur, no gallop. RESPIRATORY SYSTEM: Normal AP diameter. No accessory muscle use. + wheezing, decreased breath sounds, no crackles. ABDOMEN: Soft, bowel sounds present, nontender, no distention. CENTRAL NERVOUS SYSTEM: No facial droop. Speech is clear. Obeys simple commands. Moves extremities. EXTREMITIES: No edema, no erythema seen. Results & Data Results & Data ([facility]) Vital Signs (Past 12 Hours) Vital Signs Temp Pulse Pulse Resp BP Pulse Ox O2 Del Method 12/29/21 13:54 81 20 94 Oxymask 12/29/21 13:46 82 12/29/21 13:46 12/29/21 13:27 36.5 C 85 18 126/76 94 Nasal Cannula 12/29/21 08:00 36.3 C L 85 18 110/66 94 Nasal Cannula 12/29/21 07:53 99 H 18 92 Oxymask O2 Flow Rate 12/29/21 13:54 2 12/29/21 13:46 12/29/21 13:46 2 12/29/21 13:27 2 12/29/21 08:00 2 12/29/21 07:53 2 (1) Aspiration pneumonia Aspiration pneumonia type: unspecified Laterality: right Lung location: lower lobe of lung Qualified Code(s): J69.0 - Pneumonitis due to inhalation of food and vomit
[2021-12-29] MEDS: ENTERAL FEEDING PEG SCH ×2 (17:22→20:18)
[2021-12-29] MEDS: [UNRECOGNIZED DRUG - OTHER] PEG SCH ×2 (17:22→20:18)
[2021-12-30] MEDS: IPRATROPIUM BROMIDE NEB SOLN 0.02% 2.5 ML VIAL INH SCH ×2 (00:04→07:14)
[2021-12-30] MEDS: LEVALBUTEROL 1.25MG/0.5ML NEB INH SCH ×2 (00:04→07:14)
[2021-12-30] MEDS: PIPERACILLIN/TAZOBACTAM 3.375 GM in DEXTROSE 5% 100 ML IV SCH ×3 (00:54→11:10)
[2021-12-30] MEDS: DOXYCYCLINE HYCLATE 100 MG in DEXTROSE 5% 100 ML IV SCH (00:55)
[2021-12-30] MEDS: SODIUM CHLORIDE 0.9% 1000ML 1,000 ML IV SCH (03:17)
[2021-12-30] MEDS: INSULIN ASPART PER UNIT SC SCH (06:14)
[2021-12-30] MEDS: HEPARIN SOD 5,000 UNIT/0.5 ML VIAL SQ SCH (06:15)
[2021-12-30 06:49] LABS: Hematocrit (blood only) 31.5 % (40.1-51.0); Hemoglobin 10.2 g/dl (14.0-18.0); Mean Corpuscular Hemoglobin 30.5 pg (25.0-34.0); Mean Corpuscular Hgb Conc 32.4 g/dL (32.0-36.0); Mean Corpuscular Volume 94.3 fL (80.0-100.0); Mean Platelet Volume 11.2 fL (9.4-12.4); Platelet Count 132 K/uL (130-400); RDW Coefficient of Variation 15.1 % (11.5-14.5); RDW Standard Deviation 52.4 fL (36.4-46.3); Red Blood Count 3.34 M/uL (4.63-6.08); White Blood Count 15.96 K/ul (4.8-10.8)
[2021-12-30 07:44] LABS: BUN Creatinine Ratio 35.5 (10-20); Calcium 8.2 mg/dl (8.5-10.1); Creatinine Clr Calc Pharmacy 51.1 ml/min; Est GFR (African American) 77.2 ml/min; Est GFR (Non-African American) 66.6 ml/min; Magnesium 1.9 mg/dl (1.7-2.4); Phosphorus 1.7 mg/dl (2.5-4.9); Potassium 4.1 mmol/L (3.5-5.1)
--- NOTE | 2021-12-30 08:57 | XRay Report ---
XR chest 1V portable HISTORY: 76 years-old Male Follow up on aspiration pneumonitis acute cough COMPARISON: Chest radiograph 12/28/2021, CTA chest 09/07/2021 TECHNIQUE: AP view of the chest FINDINGS: Cardiomediastinal and hilar silhouettes are unchanged. Prior median sternotomy. No pneumothorax. Emph ysema with chronic interstitial coarsening. Progressively worsened right basilar consolidation. Proba ble trace right pleural effusion. Degenerative changes of the shoulders and spine. IMPRESSION: 1. Progressively worsened right lung base airspace opacities concerning for pneumonia versus aspirati on pneumonitis. 2. Emphysema with chronic interstitial coarsening. 3. Probable trace right pleural effusion. ACT 112: Negative or not required by law. The above report was generated using voice recognition software. It may contain grammatical, syntax o r spelling errors. Electronically signed by: Marcel Cloud M.D. 12/30/2021 8:56 AM
[2021-12-30] MEDS: FLUTICASONE FUROATE 100MCG 14 PUFFS/INHALER INH SCH (09:55)
[2021-12-30] MEDS: FERROUS SULFATE 325 MG/7.4 ML UDP GT SCH (09:55)
[2021-12-30] MEDS: ENTERAL FEEDING PEG SCH (09:56)
[2021-12-30] MEDS: methylPREDNISolone 40 MG in SYRINGE 0 ML IV SCH (09:56)
[2021-12-30] MEDS: [UNRECOGNIZED DRUG - OTHER] PEG SCH (09:56)
[2021-12-30] MEDS: LANTUS PER UNIT CHARGE SQ SCH (09:59)
[2021-12-30] MEDS ORDERED: ALBUT/IPRATROP 3MG/0.5MG NEB 3 ML VIAL NEB SCH ×2 (10:00→13:00)
[2021-12-30] MEDS: UMECLIDINIUM/VILANTEROL 62.5/25MCG 7 PUFFS/INHALER INH SCH (10:06)
[2021-12-30] MEDS: ATORVASTATIN 40 MG TAB GT SCH (11:02)
[2021-12-30] MEDS: ASPIRIN 81 MG CHEW PEG SCH (11:02)
--- NOTE | 2021-12-30 14:19 | Discharge Summary ---
Date of Service December 30, 2021 Admission HPI Per Admitting Provider History obtained from patient, family, and records. Medical history significant for chronic respiratory failure occasional supplemental home O2 use, chronic diastolic heart failure (EF 50 to 55%, TTE 2020) , chronic LBBB, CAD status post CABG, status post bioprosthetic AVR, COPD as per records, chronic pulmonary aspiration status post PEG tube placement, hypertension, hyperlipidemia, nasopharyngeal cancer status post chemoradiation, chronic anemia (baseline hemoglobin of 12 ), past tobacco abuse. Last confinement September 2021 for sepsis secondary to aspiration pneumonia. Patient introduced orange soda in his G-tube yesterday. Subsequently noted stomach upset causing him to vomit. Cough symptoms a little more than usual. Worsening 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 No chest pain. Patient brought to the ER for evaluation by EMS. O2 sats noted to be 80s, SBP noted to be 80s at 1 point. Zosyn, Solu-Medrol, and neb treatment administered at the ER. 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 Admission Exam Per Admitting Provider GENERAL: Slightly uncomfortable, nasal speech, minimal respiratory distress SKIN: Pallor, warm HEENT: Pale palpebral conjunctivae, no ptosis, dry buccal mucosa, palatal defect noted, O2 mask in place NECK : Supple, no tenderness CHEST : Decreased breath sounds, expiratory wheezes, no tenderness HEART : RRR, no obvious murmurs ABDOMEN: Some distention, PEG tube in place, nontender EXTREMITIES : No LE swelling/tenderness, no other conspicuous deformities noted NEUROLOGIC : Coherent, no facial asymmetry, no other gross focality Principal Diagnosis Severe sepsis POA Likely aspiration pneumonia Acute on chronic respiratory failure COPD exacerbation Discharge Exam GENERAL: Alert and oriented x3. NAD, on 2L O2 via Oxymask. Nasal speech. HEENT: No pallor, no icterus. Pupils equal, round and reactive to light. Oral mucosa moist. Palatal defect +. NECK: No JVD, no neck masses. HEART: S1 and S2 heard. Regular rate and rhythm. No murmur, no gallop. RESPIRATORY SYSTEM: Normal AP diameter. No accessory muscle use. Occasional wheeze ABDOMEN: Soft, bowel sounds present, nontender, no distention. CENTRAL NERVOUS SYSTEM: No facial droop. Speech is clear. Obeys simple commands. Moves extremities. EXTREMITIES: No edema, no erythema seen. Discharge Data Allergies Allergy/AdvReac Type Severity Reaction Status Date / Time No Known Allergies Allergy Verified 12/28/21 21:44 Consultations 12/28/21 20:13 ED Decision to Admit Stat Ordered Studies 12/29/21 08:00 US renal/blad retro comp Routine Hospital Course (1) Aspiration pneumonia: Plan 76-year-old male with PMH of chronic respiratory failure on 2 L nasal cannula oxygen at home, chronic diastolic heart failure [EF 50 to 55%, TTE 2020], chronic LBBB, CAD status post CABG, status post bioprosthetic AVR, COPD, chronic pulmonary aspiration status post PEG tube placement, HTN, HLD, nasopharyngeal cancer status post chemoradiation, chronic anemia [baseline hemoglobin 12], past tobacco abuse presented to our ED 12/28 with complaint of increasing cough symptoms and worsening shortness of breath after apparently introducing orange soda via G-tube the day prior to arrival and subsequently followed by stomach upset and vomiting. On presentation to the ED, patient was found to be hypoxic, hypotensive with elevated lactic acid to 7. His x-ray was consistent with right lower lobe pneumonitis. He had a JULES with creatinine of 1.67 likely due to hypotension and sepsis. He was admitted to the telemetry floor; started on IV fluids, antibiotics. He he was also started on duo nebs, steroids for possible COPD exacerbation. Over the course of the hospitalization, patient's JULES improved, his oxygenation down trended to his baseline. Patient was able to self suction and bring up the secretion. On the day of the discharge, repeat chest x-ray was done which showed slight increase in the right lower infiltrate. Discussion was done with the patient regarding the finding; patient insisted on getting back home. He reported that he will continue to self suction and bring out phlegm as much as possible. His oxygenation was back to his baseline. Patient assured that he will continue to maintain aspiration precautions at home. Patient was discharged on antibiotics and steroids through PEG tube; was instructed to follow-up with his primary care doctor as soon as possible. Total Time Total Time Spent Total Time Spent (In Minutes): 35 Total Time Includes: Examination of the Patient, Discharge Planning, Medication Reconciliation, Communication With Other Providers and Other Discharge Plan Discharge Items Patient Disposition: Home - Self-Care Reason For Visit: HYPOTENSION Discharge Diagnosis: Severe sepsis POA Aspiration pneumonia COPD exacerbation Acute kidney injury Activity: Resume your previous activity Non-emergency contact: Primary Care Provider Call non-emergency contact if: you have any medication questions and your sympt oms worsen Follow-up/Referrals: Prudencio Burns MD [Primary Care Provider] - Diet: Nothing by Mouth Addtl Attending Provider Instructions: You were admitted to the hospital with aspiration pneumonia. You are found to have infiltrate in right lower lobe on your x-ray. You are treated with IV antibiotics and breathing treatment. You are prescribed oral antibiotics Augmentin and doxycycline to be taken for next 4 days. Prescription has been sent to your pharmacy. Please follow the instruction regarding the administration of the antibiotics. Augmentin is in liquid form while doxycyline comes in capsules ( you can open the capsule and sprinkle the content in water) You were also prescribed 4 more days of steroid for COPD exacerbation. Please crush the tablet and take it through the PEG tube. Please continue to suction your airway at regular intervals. Please follow-up with your primary care doctor. Pending Studies at Discharge: No Stand-Alone Forms: My [facility], Smoking Cessation Medications and DC Order Prescriptions: New prednisone 20 mg tablet 40 mg PO DAILY 4 Days Qty: 8 0RF amoxicillin-pot clavulanate 400-57 mg/5 mL suspension for reconstitution 10 ml PO BID 5 Days Qty: 100 0RF doxycycline hyclate 100 mg tablet 100 mg PO Q12H 3 Days Qty: 6 0RF Continued atorvastatin 40 mg Tablet 40 mg feeding tube QDL nitroglycerin 0.4 mg Tablet, Sublingual 0.4 mg sublingual UD PRN (Reason: Chest Pain) Rx Instructions: NEEDEDFOR CHEST PAIN : ONE TABLET UNDER THE TONGUE EVERY 5 MINUTES UP TO THREE DOSES. albuterol sulfate [ProAir HFA] 90 mcg/actuation HFA aerosol inhaler 2 inh inhalation Q6H PRN (Reason: shortness of breath or wheezing) Qty: 8.5 0RF aspirin 81 mg Tablet,Chewable 81 mg feeding tube QDL Nutren 2.0 0.08 gram-2 kcal/mL Liquid 1 ea feeding tube QID Trelegy Ellipta 100-62.5-25 mcg blister with device 1 inh INHALATION DAILY ferrous sulfate 15 mg iron (75 mg)/mL Drops 5 ml DAILY Rx Instructions: VIA FEEDING TUBE Saline Mist 0.65 % aerosol,spray 2 spray NA Q4H PRN (Reason: NASAL DRYNESS) oxymetazoline [Afrin (oxymetazoline)] 0.05 % [place],Non-Aerosol 2 spray INTRANASAL Q12H PRN (Reason: .NOSE BLEEDS) triamcinolone acetonide 0.1 % cream 1 applic TOPICAL BID Rx Instructions: APPLY TOGRANULATION TISSUE AROUND G-TUBE TWICE DAILY FOR ONE WEEK AT A TIME ONLY clotrimazole 1 % cream 1 applic TOPICAL BID Rx Instructions: APPLY TOPICALLY TO PEG SITE TWO TIMES A DAY. prednisone 20 mg tablet 20 mg feeding tube .UD PRN (Reason: .FLARES) Rx Instructions: RESCUE KIT : TAKE 3 TABS X THREE DAYS, 2 TABS X THREE DAYS, 1 TAB X THREE DAYS, 1/2 TAB X THREE DAYS VIA PEG TUBE. Discharge Orders: Discharge Order (Routine); Ordered 12/30/21 Ordered By: Chandan Whitney Admission Data Admit Date/Time: 12/28/21 23:38 Attending Provider: Chandan Whitney Admit Provider: Alonso Rodriguez Primary Care Provider: Prudencio Burns Other Providers: Alonso Rodriguez Other Interventions: Discharge Summary Assessment (RN) Last Done: 12/30/21 11:28
[2021-12-30] MEDS ORDERED: SODIUM CHLOR 7% 4 ML NEB NEB SCH (19:00)
--- NOTE | 2021-12-30 23:17 | Electrocardiogram Report ---
Test Reason : Blood Pressure : / mmHG Vent. Rate : 100 BPM Atrial Rate : 100 BPM P-R Int : 146 ms QRS Dur : 134 ms QT Int : 390 ms P-R-T Axes : 042 -44 101 degrees QTc Int : 503 ms Normal sinus rhythm Possible Left atrial enlargement Left axis deviation Left bundle branch block Abnormal ECG When compared with ECG of 07-SEP-2021 22:04, Left bundle branch block is now Present Limb lead reversal is no longer present Confirmed by Rahul Miller ([id number]) on 12/30/2021 11:16:55 PM Referred By: REFERRED SELF Confirmed By:Rahul Miller
== END 2021-12-30 12:14 | disposition home or self-care (01) | DRG 871 ==
LOC: ED 18:34 → 2S 23:38 → SUATTDRO 23:38 → 2S 12-29 00:48

== ENCOUNTER 2022-03-07 18:39 | Inpatient (IN) ==
--- NOTE | 2022-03-07 18:55 | Emergency Department Note ---
Impression & Plan Respiratory failure, Hypoxia, Aspiration pneumonia, Acute dehydration ED Provider Note NAME: DAXA WRIGHT AGE: 76 SEX: M : 1945 ARRIVES VIA: Ambulance INFORMANT: Patient, EMS ED PROVIDER(S): Vu Nelson DO CHIEF COMPLAINT: Shortness of breath HPI: The patient is a 76-year-old male who presented to the emergency department for an evaluation of 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 The patient has a history of aspiration. He has a feeding tube because of frequent vomiting. The patient was at his home. His family checked on him and found him to be very short of breath. 911 was called. The patient was placed on a oxygen mask. His oxygen continued to drop. He was brought to the emergency department by ambulance. He was placed on BiPAP prior to arrival. The patient denies having any chest pain. He denies having any lower extremity swelling. He states he has been vomiting recently. He states has been compliant with his outpatient medications otherwise. He does not use tobacco products. ROS: See above HPI for pertinent positives & negatives. A total of 10 systems reviewed and were otherwise negative. PAST MEDICAL HISTORY: See Below PAST SURGICAL HISTORY: See Below FAMILY HISTORY: See Below SOCIAL HISTORY: See Below HOME MEDICATIONS: See Below ALLERGIES: See Below VITALS: See Below PHYSICAL EXAMINATION: GENERAL: The patient is awake and alert. The patient is somewhat anxious appearing. EYES: The conjunctivae are clear. The pupils are round and reactive. EARS, NOSE, MOUTH AND THROAT: The nose is without any evidence of any deformity. NECK: The neck is nontender and supple. RESPIRATORY: Diminished breath sounds are noted throughout. There were rhonchi noted throughout. There was retractions and significant respiratory distress noted. CARDIOVASCULAR: Regular rate and rhythm noted there no murmurs rubs or gallops normal S1 normal S2. GASTROINTESTINAL: The abdomen is soft. Abdomen is nontender. MUSCULOSKELETAL/EXTREMITIES: There is no evidence of gross deformity full range of motion is noted in the hips and shoulders. SKIN: Skin is warm and dry. There was no significant pedal edema. NEUROLOGIC: Patient is awake alert and oriented x3 MEDICAL DECISION MAKING: The patient is a 76-year-old male who presented to the emergency department for an evaluation of difficulty breathing. The patient was placed on BiPAP prior to arrival. The patient tolerated BiPAP well. Saturations were improved. He was taken off of BiPAP intermittently for suctioning. He was placed back on BiPAP when he started having severe difficulty breathing again. He has a history of chronic esophageal issues and chronic aspiration. He was treated with IV antibiotics and IV fluids in the emergency department. He was reevaluated multiple times. I discussed the patient's laboratory and radiographic studies with his son. I discussed the patient's condition with the on-call [facility]. The patient's condition is not stable at this time and he requires further inpatient management. Triage Nursing notes reviewed. Prior medical records reviewed Vital Signs: reviewed and remarkable for tachycardia hypotension and hypoxia. Differential diagnosis: Reactive airway disease, pneumonia, pneumothorax, COPD, CHF, infections, cardiac ischemia, pulmonary embolism, musculoskeletal, gastrointestinal, as well as other pathologies. ER treatment provided: See below Diagnostics interpreted by me: ECG: EKG was obtained in the emergency department. My interpretation is sinus tachycardia 125 bpm. No PVCs were noted. Left bundle branch block pattern was noted. This was compared to a tracing from December 28, 2021. No specific changes were noted. Cardiac Monitoring: An order was placed for continuous cardiac monitoring. The monitor shows a rate of 130 bpm with sinus tachycardia. Laboratory studies: As stated above and show below. Imaging studies: See below. Radiographic imaging was reviewed by myself Consultation(s): I discussed this case with Dr. Santana who is on-call for the [facility] group. They have agreed to evaluate the patient in the emergency department for further management and disposition. ED COURSE: Procedures: none Critical Care: I have personally spent greater than 45 minutes of critical care time in the direct management of this patient. This includes bedside care, interpretation of diagnostic studies, and testing, discussion with consultants, patient, and family members, and other required patient management activities. This 45 minutes is in excess of all separately billable procedures. Past Med/Surg History Medical History Acute hypoxemic respiratory failure Acute on chronic diastolic heart failure Acute renal insufficiency CAD (coronary artery disease) Cardiac murmur CHILD FROM RHEUMATIC FEVER CHF (congestive heart failure) Chronic pulmonary aspiration CKD (chronic kidney disease) stage 3, GFR 30-59 ml/min Elevated lactic acid level Former tobacco use Hearing deficit BILAT History of [place] (myocardial infarction) [facility] [place]/ [facility] History of nasopharyngeal cancer s/p radiation, chemo- NO PORT ANYMORE CLEARED NOV 2013 History of rheumatic fever Hyperlipidemia Hypertension Left bundle branch block (LBBB) Palate abnormality prosthetic palate Pneumonia Severe sepsis Surgical History History of cardiac cath 2017 - [place] --> CABG - [facility]- follows w/ Dr. Milton- [facility]/ NO STENTS History of cataract surgery History of colonoscopy with polypectomy 09/25/2018. Propofol given, no issues. History of coronary artery bypass graft One vessel - 2016 - [facility] [place] History of heart valve replacement Bioprosthetic aortic valve - [facility] 2016 History of shoulder surgery RIGHT History of tonsillectomy History of tooth extraction History of vascular access device NO LONGER HAS PORT Hx of aortic valve replacement Status post insertion of percutaneous endoscopic gastrostomy (PEG) tube PLACED DUE TO PALATE SURGERY- THEN REMOVED 2014 Family History Father Cancer Liver Cancer Social History Smoking Status: Former smoker Tobacco Type: Cigarettes Second Hand Exposure: No; Hx Alcohol Use: No Hx Substance Use: No Preferred Language: Swedish Communication Ability: Effective [employer] Required: No Beliefs That Will Affect Care: None marital status: / Current Living Situation: Alone How many Children do You have: 1 Feels Safe at Home: Yes Assistive Devices: Cane and Oxygen - Continuous Allergies Allergies Allergy/AdvReac Type Severity Reaction Status Date / Time No Known Allergies Allergy Verified 12/28/21 21:44 Home Meds Home Medications Medication Instructions Recorded Confirmed atorvastatin 40 mg tablet 40 mg feeding tube QPM 09/18/18 03/07/22 nitroglycerin 0.4 mg sublingual 0.4 mg sublingual UD PRN Chest Pain 09/18/18 03/07/22 tablet aspirin 81 mg chewable tablet 81 mg feeding tube QDL 02/19/21 03/07/22 fluticasone fur. 100 mcg-umeclid 1 inh inhalation QAM 02/19/21 03/07/22 62.5 mcg-vilant 25 mcg inhalat.powder (Trelegy Ellipta) nutritional supplements 0.08 1 ea feeding tube QID 02/19/21 03/07/22 gram-2 kcal/mL liquid for tube feed (Nutren 2.0) sodium chloride 0.65 % nasal spray 2 spray NA Q4H PRN NASAL DRYNESS 09/07/21 03/07/22 aerosol (Saline Mist) clotrimazole 1 % topical cream 1 applic topical BID 12/28/21 03/07/22 oxymetazoline 0.05 % nasal spray 2 spray intranasal Q12H PRN .NOSE 12/28/21 03/07/22 (Afrin (oxymetazoline)) BLEEDS prednisone 20 mg tablet 20 mg feeding tube .UD PRN .FLARES 12/28/21 03/07/22 triamcinolone acetonide 0.1 % 1 applic topical BID 12/28/21 03/07/22 topical cream water for irrigation, sterile 120 ml irrigation 5XD 03/07/22 03/07/22 Previous Rx's Medication Instructions Recorded albuterol sulfate 90 mcg/actuation 2 inh inhalation Q6H PRN shortness 05/06/20 aerosol inhaler (ProAir HFA) of breath or wheezing #8.5 grams Results & Data (ED) Vital Signs Vital Signs - 24 hr 03/07/22 18:40 03/07/22 18:49 03/07/22 19:13 Temperature 37.1 C Temperature Source Axillary Pulse Rate 127 H Pulse Rate from SpO2 Sensor Respiratory Rate 22 Respiratory Effort / Characteristics Respiratory Depth Respiratory Pattern Blood Pressure 86/56 L Blood Pressure Mean 66 Pulse Oximetry 96 94 Oxygen Delivery Method BiPAP BiPAP BiPAP Fraction of Inspired Oxygen Sepsis Recent Fever Within 48 Hours No Sepsis New/Unexplained Change in Mental Status No Sepsis Action Taken by Nursing Physician Notified 03/07/22 19:14 03/07/22 18:47 03/07/22 18:48 Temperature Temperature Source Pulse Rate 130 H Pulse Rate from SpO2 Sensor 131 H Respiratory Rate 28 H Respiratory Effort / Characteristics Non-Labored Spontaneous Respiratory Depth Normal Respiratory Pattern Tachypnea Blood Pressure 86/56 L Blood Pressure Mean 66 Pulse Oximetry 90 Oxygen Delivery Method BiPAP Fraction of Inspired Oxygen Sepsis Recent Fever Within 48 Hours Sepsis New/Unexplained Change in Mental Status Sepsis Action Taken by Nursing 03/07/22 18:50 03/07/22 19:00 03/07/22 19:09 Temperature Temperature Source Pulse Rate 128 H 124 H Pulse Rate from SpO2 Sensor 129 H 123 H Respiratory Rate 25 H 29 H Respiratory Effort / Characteristics Respiratory Depth Respiratory Pattern Blood Pressure 88/39 L Blood Pressure Mean 55 Pulse Oximetry 93 99 Oxygen Delivery Method Fraction of Inspired Oxygen Sepsis Recent Fever Within 48 Hours Sepsis New/Unexplained Change in Mental Status Sepsis Action Taken by Nursing 03/07/22 19:09 03/07/22 19:10 03/07/22 19:20 Temperature Temperature Source Pulse Rate 123 H 122 H 129 H Pulse Rate from SpO2 Sensor 133 H 125 H 145 H Respiratory Rate 23 29 H 24 Respiratory Effort / Characteristics Respiratory Depth Respiratory Pattern Blood Pressure Blood Pressure Mean Pulse Oximetry 80 L 85 L 88 L Oxygen Delivery Method Fraction of Inspired Oxygen Sepsis Recent Fever Within 48 Hours Sepsis New/Unexplained Change in Mental Status Sepsis Action Taken by Nursing 03/07/22 19:30 03/07/22 19:32 03/07/22 19:40 Temperature Temperature Source Pulse Rate 134 H 132 H Pulse Rate from SpO2 Sensor 133 H 137 H 137 H Respiratory Rate 30 H 23 Respiratory Effort / Characteristics Respiratory Depth Respiratory Pattern Blood Pressure 89/57 L Blood Pressure Mean 67 Pulse Oximetry 88 L 77 L 98 Oxygen Delivery Method Fraction of Inspired Oxygen Sepsis Recent Fever Within 48 Hours Sepsis New/Unexplained Change in Mental Status Sepsis Action Taken by Nursing 03/07/22 19:00 Temperature Temperature Source Pulse Rate 130 H Pulse Rate from SpO2 Sensor Respiratory Rate 28 H Respiratory Effort / Characteristics Non-Labored Spontaneous Respiratory Depth Normal Respiratory Pattern Regular Blood Pressure Blood Pressure Mean Pulse Oximetry 93 Oxygen Delivery Method Fraction of Inspired Oxygen 100 Sepsis Recent Fever Within 48 Hours Sepsis New/Unexplained Change in Mental Status Sepsis Action Taken by Longterm Medications Current Medication List: was personally reviewed by me Laboratory Data Attestation: I reviewed the patient's lab results. 03/07/22 18:55 03/07/22 18:55 Lab Results 03/07/22 03/07/22 03/07/22 Range/Units 18:55 18:55 18:55 WBC 8.83 (4.8-10.8) K/ul RBC 3.88 L (4.70-6.10) M/uL Hgb 11.8 L (14.0-18.0) g/dl Hct 38.5 L (42.0-52.0) % MCV 99.2 (80.0-100.0) fL MCH 30.4 (25.0-34.0) pg MCHC 30.6 L (32.0-36.0) g/dL RDW Std Deviation 49.1 H (36.4-46.3) fL RDW Coeff of Navid 13.5 (11.5-14.5) % Plt Count 356 (130-400) K/uL MPV 10.7 (9.4-12.4) fL Immature Gran % (Auto) 0.2 % Neut % (Auto) 85.0 % Lymph % (Auto) 4.4 % Clay % (Auto) 9.7 % Eos % (Auto) 0.2 % Baso % (Auto) 0.5 % Neut # (Auto) 7.50 H (1.40-6.50) K/uL Lymph # (Auto) 0.39 L (1.2-3.4) K/uL Clay # (Auto) 0.86 H (0.11-0.59) K/uL Eos # (Auto) 0.02 (0-0.50) K/uL Baso # (Auto) 0.04 (0-0.2) K/uL Immature Gran # (Auto) 0.02 (0.01-0.20) K/uL PT 11.9 (9.0-12.0) Seconds INR 1.1 (0.9-1.1) APTT 25.4 (21.0-31.0) Seconds PTT Ratio 0.9 Sodium 148 H (136-145) mmol/L Potassium 3.7 (3.5-5.1) mmol/L Chloride 104 (98-107) mmol/L Carbon Dioxide 36 H (21-32) mmol/L Anion Gap 8 (3-11) Calcium 9.1 (8.5-10.1) mg/dl Magnesium 2.3 (1.7-2.4) mg/dl Total Bilirubin 0.6 (0.2-1.0) mg/dl Direct Bilirubin 0.1 (0-0.2) mg/dl Albumin 3.4 (3.4-5.0) gm/dl Administered Medications Sodium Chloride (Nss 1000ml) 1,000 mls @ 999 mls/hr IV .Q1H1M ONE Stop: 03/07/22 20:52 Last Admin: 03/07/22 20:18 Dose: 999 mls/hr Documented By: TREV Discontinued Medications Piperacillin Sod/Tazobactam Sod (Zosyn) 4.5 gm in 120 mls @ 240 mls/hr IV NOW ONE Stop: 03/07/22 20:21 Last Admin: 03/07/22 20:15 Dose: 240 mls/hr Documented By: TREV Imaging Data Radiologist's Impression: Chest X-Ray 03/07/22 18:49 XR chest 1V portable CLINICAL HISTORY: Sepsis COMPARISON STUDY: Chest CT September 07, 2021. Chest radiograph December 30, 2021. FINDINGS: Median sternotomy wires are noted. There is no pneumothorax or pleural effusion. Cardiac size is normal. Mediastinal contours are normal. Reticulonodular interstitial thickening and suspected patchy airspace opacities are greater within the right lung. These are most pronounced within the right upper lobe. IMPRESSION: Reticulonodular interstitial thickening and patchy airspace opaciti es, greater within the right lung. The findings favor an infectious process. Asymmetric pulmonary edema could appear similar but is considered less likely. ACT 112: Negative or not required by law. Electronically signed by: Yayo Kay M.D. 03/07/2022 7:50 PM Discharge Plan Visit Data Chief Complaint: Shortness of Breath/Dyspnea ED Provider: Vu Nelson Discharge Problem: Respiratory failure, Hypoxia, Aspiration pneumonia, Acute dehydration Patient Disposition: Being Evaluated by Hospitalist Forms Stand Alone Forms: [facility] Prescriptions Prescriptions: No Action atorvastatin 40 mg Tablet 40 mg feeding tube QPM nitroglycerin 0.4 mg Tablet, Sublingual 0.4 mg sublingual UD PRN (Reason: Chest Pain) Rx Instructions: NEEDEDFOR CHEST PAIN : ONE TABLET UNDER THE TONGUE EVERY 5 MINUTES UP TO THREE DOSES. albuterol sulfate [ProAir HFA] 90 mcg/actuation HFA aerosol inhaler 2 inh inhalation Q6H PRN (Reason: shortness of breath or wheezing) Qty: 8.5 0RF aspirin 81 mg Tablet,Chewable 81 mg feeding tube QDL Nutren 2.0 0.08 gram-2 kcal/mL Liquid 1 ea feeding tube QID Rx Instructions: administer via gravity bag Trelegy Ellipta 100-62.5-25 mcg blister with device 1 inh INHALATION QAM Saline Mist 0.65 % aerosol,spray 2 spray NA Q4H PRN (Reason: NASAL DRYNESS) oxymetazoline [Afrin (oxymetazoline)] 0.05 % [place],Non-Aerosol 2 spray INTRANASAL Q12H PRN (Reason: .NOSE BLEEDS) triamcinolone acetonide 0.1 % cream 1 applic TOPICAL BID Rx Instructions: APPLY TO GRANULATION TISSUE AROUND G-TUBE TWICE DAILY FOR ONE WEEK AT A TIME ONLY clotrimazole 1 % cream 1 applic TOPICAL BID Rx Instructions: APPLY TOPICALLY TO PEG SITE TWO TIMES A DAY. prednisone 20 mg tablet 20 mg feeding tube .UD PRN (Reason: .FLARES) Rx Instructions: RESCUE KIT : TAKE 3 TABS X THREE DAYS, 2 TABS X THREE DAYS, 1 TAB X THREE DAYS, 1/2 TAB X THREE DAYS VIA PEG TUBE. water for irrigation, sterile Solution 120 ml IRRIGATION 5XD Rx Instructions: into feeding tube Referrals Referrals: Prudencio Burns MD [Primary Care Provider] -
[2022-03-07] MEDS ORDERED: SODIUM CHLORIDE 0.9% 1000ML 1,000 ML IV ONE (19:52)
[2022-03-07] MEDS ORDERED: PIPERACILLIN/TAZOBACTAM 4.5 GM/120 ML BAG IV ONE (19:52)
--- NOTE | 2022-03-07 19:52 | XRay Report ---
XR chest 1V portable CLINICAL HISTORY: Sepsis COMPARISON STUDY: Chest CT September 07, 2021. Chest radiograph December 30, 2021. FINDINGS: Median sternotomy wires are noted. There is no pneumothorax or pleural effusion. Cardiac si ze is normal. Mediastinal contours are normal. Reticulonodular interstitial thickening and suspected patchy airspace opacities are greater within the right lung. These are most pronounced within the rig ht upper lobe. IMPRESSION: Reticulonodular interstitial thickening and patchy airspace opacities, greater within the right lung. The findings favor an infectious process. Asymmetric pulmonary edema could appear simila r but is considered less likely. ACT 112: Negative or not required by law. Electronically signed by: Yayo Kay M.D. 03/07/2022 7:50 PM
[2022-03-07 20:06] LABS: Basophils # (auto) 0.04 K/uL (0-0.2); Basophils % (auto) 0.5 %; Eosinophils # (auto) 0.02 K/uL (0-0.50); Eosinophils % (auto) 0.2 %; Hematocrit (blood only) 38.5 % (42.0-52.0); Hemoglobin 11.8 g/dl (14.0-18.0); Immature Granulocytes # (auto) 0.02 K/uL (0.01-0.20); Immature Granulocytes % (auto) 0.2 %; Lymphocytes # (auto) 0.39 K/uL (1.2-3.4); Lymphocytes % (auto) 4.4 %; Mean Corpuscular Hemoglobin 30.4 pg (25.0-34.0); Mean Corpuscular Hgb Conc 30.6 g/dL (32.0-36.0); Mean Corpuscular Volume 99.2 fL (80.0-100.0); Mean Platelet Volume 10.7 fL (9.4-12.4); Monocytes # (auto) 0.86 K/uL (0.11-0.59); Monocytes % (auto) 9.7 %; Platelet Count 356 K/uL (130-400); RDW Coefficient of Variation 13.5 % (11.5-14.5); RDW Standard Deviation 49.1 fL (36.4-46.3); Red Blood Count 3.88 M/uL (4.70-6.10); White Blood Count 8.83 K/ul (4.8-10.8)
[2022-03-07 20:19] LABS: INR 1.1 (0.9-1.1); Partial Thromboplastin Ratio 0.9; Partial Thromboplastin Time 25.4 Seconds (21.0-31.0); Prothrombin Time 11.9 Seconds (9.0-12.0)
[2022-03-07 20:21] LABS: Albumin Level 3.4 gm/dl (3.4-5.0); Bilirubin Direct 0.1 mg/dl (0-0.2); Bilirubin,Total 0.6 mg/dl (0.2-1.0); Calcium 9.1 mg/dl (8.5-10.1); Magnesium 2.3 mg/dl (1.7-2.4); Potassium 3.7 mmol/L (3.5-5.1)
[2022-03-07 20:27] LABS: BUN Creatinine Ratio 35.6 (10-20); Creatinine Clr Calc Pharmacy 36.2 ml/min; Est GFR (African American) 51.7 ml/min; Est GFR (Non-African American) 44.6 ml/min; Total Protein 7.5 gm/dl (6.0-8.3)
[2022-03-07 20:30] LABS: Troponin I High Sensitivity 18.4 pg/ml (0-20)
[2022-03-07] MEDS ORDERED: SODIUM CHLORIDE 0.45 % 1,000 ML IV ONE (20:32)
[2022-03-07] MEDS ORDERED: methylPREDNISolone 40 MG in SYRINGE 0 ML IV STA (20:41)
[2022-03-07 20:47] LABS: Influenza A virus by PCR Negative (Neg); Influenza B virus by PCR Negative (Neg); RSV by PCR Negative (Neg); SARS CoV2 RNA(COVID-19) Ceph NEGATIVE (Negative)
--- NOTE | 2022-03-07 20:57 | History & Physical Report ---
Date of Service March 07, 2022 Assessment & Plan (1) Respiratory failure: Plan: Acute hypoxemic respiratory failure Secondary to COPD exacerbation secondary to recurrent aspiration pneumonia history PEG tube placement Possible severe sepsis given ARF, lactic acidosis, hypotension at the ER chronic diastolic heart failure, patient on the dry side chronic LBBB hx CAD status post CABG, status post bioprosthetic AVR hyperlipidemia, on statin Rx nasopharyngeal cancer status post chemoradiation, in remission chronic anemia, hemoglobin at baseline Hyperglycemia secondary to prediabetes, hemoglobin A1c of 5.7 last December 2021 past tobacco abuse PCU given hypotension CS, Zosyn for aspiration pneumonia, add doxycycline for atypical coverage given possible severe sepsis Continue aspiration precautions Swallow eval Nebs RTC, steroid course for COPD exacerbation Pulmonary consult if without improvement IVF, follow lactic acid and kidney function Renal ultrasound if no improvement in kidney function DVT prophylaxis. Heparin subcu Full code Total critical care time was 45 minutes. Patient son requesting updates for providers. Mr. Anthony Dodson, contact #[phone]. Text document was generated using Hobby voice recognition software. It may contain grammatical or spelling errors. Kindly contact undersigned for clarification of any documentation item in question. History of Present Illness Chief Complaint: Vomiting, shortness of breath Primary Care Provider: Prudencio Burns MD History obtained from patient and records. Limited history from patient secondary to BiPAP. Medical history significant for chronic respiratory failure occasional supplemental home O2 use, chronic diastolic heart failure (EF 50 to 55%, TTE 2020) , chronic LBBB, CAD status post CABG, status post bioprosthetic AVR, COPD as per records, chronic pulmonary aspiration status post PEG tube placement, hypertension, hyperlipidemia, nasopharyngeal cancer status post chemoradiation, chronic anemia (baseline hemoglobin of 11-13 ), past tobacco abuse. 3 admissions last year for recurrent aspiration pneumonia. Most recent one was in December 2021. Patient had recurrent episodes of vomiting today without abdominal pain. Subsequently noted to have junky cough symptoms and increasingly short of breath. Patient denies chest pain. Compliant with strict n.p.o. status. SBP and O2 sats noted to be 80s at the ER. Zosyn administered at the ER. 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 Allergies Allergy/AdvReac Type Severity Reaction Status Date / Time No Known Allergies Allergy Verified 12/28/21 21:44 Home Medications Medication Instructions Recorded Confirmed Type atorvastatin 40 mg tablet 40 mg feeding tube QPM 09/18/18 03/07/22 History nitroglycerin 0.4 mg sublingual 0.4 mg sublingual UD PRN Chest Pain 09/18/18 03/07/22 History tablet albuterol sulfate 90 mcg/actuation 2 inh inhalation Q6H PRN shortness 05/06/20 03/07/22 Rx aerosol inhaler (ProAir HFA) of breath or wheezing #8.5 grams aspirin 81 mg chewable tablet 81 mg feeding tube QDL 02/19/21 03/07/22 History fluticasone fur. 100 mcg-umeclid 1 inh inhalation QAM 02/19/21 03/07/22 History 62.5 mcg-vilant 25 mcg inhalat.powder (Trelegy Ellipta) nutritional supplements 0.08 1 ea feeding tube QID 02/19/21 03/07/22 History gram-2 kcal/mL liquid for tube feed (Nutren 2.0) sodium chloride 0.65 % nasal spray 2 spray NA Q4H PRN NASAL DRYNESS 09/07/21 03/07/22 History aerosol (Saline Mist) clotrimazole 1 % topical cream 1 applic topical BID 12/28/21 03/07/22 History oxymetazoline 0.05 % nasal spray 2 spray intranasal Q12H PRN .NOSE 12/28/21 History (Afrin (oxymetazoline)) BLEEDS prednisone 20 mg tablet 20 mg feeding tube .UD PRN .FLARES 12/28/21 03/07/22 History triamcinolone acetonide 0.1 % 1 applic topical BID 12/28/21 03/07/22 History topical cream water for irrigation, sterile 120 ml irrigation 5XD 03/07/22 03/07/22 History Past Med/Surg History Medical History Acute hypoxemic respiratory failure Acute on chronic diastolic heart failure Acute renal insufficiency CAD (coronary artery disease) Cardiac murmur CHILD FROM RHEUMATIC FEVER CHF (congestive heart failure) Chronic pulmonary aspiration CKD (chronic kidney disease) stage 3, GFR 30-59 ml/min Elevated lactic acid level Former tobacco use Hearing deficit BILAT History of [place] (myocardial infarction) 2017/ [facility] History of nasopharyngeal cancer s/p radiation, chemo- NO PORT ANYMORE CLEARED NOV 2013 History of rheumatic fever Hyperlipidemia Hypertension Left bundle branch block (LBBB) Palate abnormality prosthetic palate Pneumonia Severe sepsis Surgical History History of cardiac cath 2017 - [place] --> CABG - [facility]- follows w/ Dr. Milton- [facility]/ NO STENTS History of cataract surgery History of colonoscopy with polypectomy 09/25/2018. Propofol given, no issues. History of coronary artery bypass graft One vessel - 2016 - [facility] History of heart valve replacement Bioprosthetic aortic valve - [facility] 2016 History of shoulder surgery RIGHT History of tonsillectomy History of tooth extraction History of vascular access device NO LONGER HAS PORT Hx of aortic valve replacement Status post insertion of percutaneous endoscopic gastrostomy (PEG) tube PLACED DUE TO PALATE SURGERY- THEN REMOVED 2014 Family History Father Cancer Liver Cancer Social History Smoking Status: Former smoker Tobacco Type: Cigarettes Second Hand Exposure: No; Do You Dip or Chew Tobacco: No; Tobacco Cessation Education Requested by Patient: No Hx Alcohol Use: No Hx Substance Use: No Preferred Language: Azerbaijani Communication Ability: Effective Furnace Fitter Required: No Beliefs That Will Affect Care: None marital status: / Current Living Situation: Alone How many Children do You have: 1 Other Information That Helps Us Care for You: No Feels Safe at Home: Yes Safety Concerns: Feels Safe At This Time Assistive Devices: Glasses, Oxygen - Continuous and Walker Review of Systems Review of Systems: Could not be reliably obtained secondary to BiPAP Physical Exam Physical Exam: GENERAL: uncomfortable, respiratory distress SKIN: Pallor, warm HEENT: Pale palpebral conjunctivae, no ptosis, dry buccal mucosa, BiPAP in place NECK : Supple, no tenderness CHEST : Decreased breath sounds, expiratory wheezes, no tenderness HEART : Tachycardic, no obvious murmurs ABDOMEN: Some distention, PEG tube in place, nontender EXTREMITIES : No LE swelling/tenderness, no other conspicuous deformities noted NEUROLOGIC : Coherent, no facial asymmetry, no other gross focality Results & Data Results & [facility] ([facility]) Vital Signs (Past 12 Hours) Vital Signs Temp Pulse Resp BP Pulse Ox O2 Del Method FiO2 03/07/22 20:30 124 H 26 H 109/78 100 03/07/22 20:15 116 H 26 H 98 03/07/22 20:00 120 H 29 H 100 03/07/22 19:45 135 H 23 100 03/07/22 19:00 130 H 28 H 93 100 03/07/22 19:40 132 H 23 98 03/07/22 19:32 134 H 30 H 89/57 L 77 L 03/07/22 19:30 88 L 03/07/22 19:20 129 H 24 88 L 03/07/22 19:10 122 H 29 H 85 L 03/07/22 19:09 123 H 23 80 L 03/07/22 19:09 88/39 L 03/07/22 19:00 124 H 29 H 99 03/07/22 18:50 128 H 25 H 93 03/07/22 18:48 130 H 28 H 90 03/07/22 18:47 86/56 L 03/07/22 19:14 BiPAP 03/07/22 19:13 BiPAP 03/07/22 18:49 94 BiPAP 03/07/22 18:40 37.1 C 127 H 22 86/56 L 96 BiPAP Laboratory Results Laboratory Results WBC 8.83 K/ul (4.8-10.8) 03/07/22 18:55 RBC 3.88 M/uL (4.70-6.10) L 03/07/22 18:55 Hgb 11.8 g/dl (14.0-18.0) L 03/07/22 18:55 Hct 38.5 % (42.0-52.0) L 03/07/22 18:55 MCV 99.2 fL (80.0-100.0) 03/07/22 18:55 MCH 30.4 pg (25.0-34.0) 03/07/22 18:55 MCHC 30.6 g/dL (32.0-36.0) L 03/07/22 18:55 RDW Std Deviation 49.1 fL (36.4-46.3) H 03/07/22 18:55 RDW Coeff of Navid 13.5 % (11.5-14.5) 03/07/22 18:55 Plt Count 356 K/uL (130-400) 03/07/22 18:55 MPV 10.7 fL (9.4-12.4) 03/07/22 18:55 Immature Gran % (Auto) 0.2 % 03/07/22 18:55 Neut % (Auto) 85.0 % 03/07/22 18:55 Lymph % (Auto) 4.4 % 03/07/22 18:55 [place] % (Auto) 9.7 % 03/07/22 18:55 Eos % (Auto) 0.2 % 03/07/22 18:55 Baso % (Auto) 0.5 % 03/07/22 18:55 Neut # (Auto) 7.50 K/uL (1.40-6.50) H 03/07/22 18:55 Lymph # (Auto) 0.39 K/uL (1.2-3.4) L 03/07/22 18:55 [place] # (Auto) 0.86 K/uL (0.11-0.59) H 03/07/22 18:55 Eos # (Auto) 0.02 K/uL (0-0.50) 03/07/22 18:55 Baso # (Auto) 0.04 K/uL (0-0.2) 03/07/22 18:55 Immature Gran # (Auto) 0.02 K/uL (0.01-0.20) 03/07/22 18:55 PT 11.9 Seconds (9.0-12.0) 03/07/22 18:55 INR 1.1 (0.9-1.1) 03/07/22 18:55 APTT 25.4 Seconds (21.0-31.0) 03/07/22 18:55 PTT Ratio 0.9 03/07/22 18:55 Sodium 148 mmol/L (136-145) H 03/07/22 18:55 Potassium 3.7 mmol/L (3.5-5.1) 03/07/22 18:55 Chloride 104 mmol/L (98-107) 03/07/22 18:55 Carbon Dioxide 36 mmol/L (21-32) H 03/07/22 18:55 Anion Gap 8 (3-11) 03/07/22 18:55 BUN 53 mg/dl (6-23) H 03/07/22 18:55 Creatinine 1.49 mg/dl (0.6-1.4) H 03/07/22 18:55 Est Cr Clr Drug Dosing 36.2 ml/min 03/07/22 18:55 Est GFR ( Amer) 51.7 ml/min 03/07/22 18:55 Est GFR (Non-Af Amer) 44.6 ml/min 03/07/22 18:55 BUN/Creatinine Ratio 35.6 (10-20) H 03/07/22 18:55 Glucose 80 mg/dl (70-99(Fasting)) 03/07/22 18:55 Lactate 2.8 mmol/L (0.4-2.0) H* 03/07/22 20:00 Calcium 9.1 mg/dl (8.5-10.1) 03/07/22 18:55 Magnesium 2.3 mg/dl (1.7-2.4) 03/07/22 18:55 Total Bilirubin 0.6 mg/dl (0.2-1.0) 03/07/22 18:55 Direct Bilirubin 0.1 mg/dl (0-0.2) 03/07/22 18:55 AST 27 U/L (13-39) 03/07/22 18:55 ALT 10 U/L (7-52) 03/07/22 18:55 Alkaline Phosphatase 70 U/L (34-104) 03/07/22 18:55 Troponin I High Sens 18.4 pg/ml (0-20) 03/07/22 18:55 Total Protein 7.5 gm/dl (6.0-8.3) 03/07/22 18:55 Albumin 3.4 gm/dl (3.4-5.0) 03/07/22 18:55 Procalcitonin 1.50 ng/ml (0-0.5) H 03/07/22 18:55 SARS-CoV-2 (PCR) NEGATIVE (Negative) 03/07/22 18:55 Influenza Type A (PCR) Negative (Neg) 03/07/22 18:55 Influenza Type B (PCR) Negative (Neg) 03/07/22 18:55 RSV (RT-PCR) Negative (Neg) 03/07/22 18:55 Impressions Chest X-Ray 03/07/22 18:49 XR chest 1V portable CLINICAL HISTORY: Sepsis COMPARISON STUDY: Chest CT September 07, 2021. Chest radiograph December 30, 2021. FINDINGS: Median sternotomy wires are noted. There is no pneumothorax or pleural effusion. Cardiac size is normal. Mediastinal contours are normal. Reticulonodular interstitial thickening and suspected patchy airspace opacities are greater within the right lung. These are most pronounced within the right upper lobe. IMPRESSION: Reticulonodular interstitial thickening and patchy airspace opacities, greater within the right lung. The findings favor an infectious process. Asymmetric pulmonary edema could appear similar but is considered less likely. ACT 112: Negative or not required by law. Electronically signed by: Yayo Kay M.D. 03/07/2022 7:50 PM Diagnostic Findings 1 toEKG as per my interpretation : Rate 85, LAD, LAFB, septal and inferior infarct, T wave abnormalities lateral leads (1) Respiratory failure Chronicity: acute on chronic Respiratory failure complication: hypoxia Qualified Code(s): J96.21 - Acute and chronic respiratory failure with hypoxia
[2022-03-07 21:03] LABS: Appearance Urine Cloudy (Clear); Bacteria Urine Automated Negative (Negative); Bilirubin Urine Negative (Negative); Blood Urine Negative (Negative); Color Urine Dark Yellow; Epithelial Cell Urine Auto >30 /lpf (0-5); Glucose Urine UA Negative (Negative); Ketones Urine Trace (Negative); Leukocyte Esterase Urine 1+ (Negative); Nitrite Urine Negative (Negative); Protein Urine 2+ (Negative); Urobilinogen Urine Negative (Negative); pH Urine 5.5 (4.5-7.5)
[2022-03-07 21:16] LABS: Calcium Oxalate Crystals Urine Present (None Prsent)
[2022-03-07 21:17] LABS: Renal Epithelial Cells Urine 0-5 /lpf (0-5)
[2022-03-07] MEDS ORDERED: XOPENEX/ATROVENT 1.25mg/0.5MG NEB COMBO NEB STA (21:46)
[2022-03-07] MEDS ORDERED: LEVALBUTEROL 1.25MG/0.5ML NEB INH STA (21:47)
[2022-03-07] MEDS ORDERED: IPRATROPIUM BROMIDE NEB SOLN 0.02% 2.5 ML VIAL INH STA (21:47)
[2022-03-07] MEDS ORDERED: NUTRITIONAL SUPPLEMENTS feeding tube SCH (22:10)
[2022-03-07] MEDS ORDERED: [UNRECOGNIZED DRUG - OTHER] feeding tube SCH (22:10)
[2022-03-07] MEDS ORDERED: ACETAMINOPHEN SUSP 325 MG/10.15 ML UDC PEG PRN (22:10)
[2022-03-07] MEDS ORDERED: PROMETHAZINE HCL 6.25 MG in SODIUM CHLORIDE 0.9% 50 ML IV PRN (22:10)
[2022-03-07] MEDS ORDERED: LACTATED RINGER'S 1,000 ML IV ONE (22:22)
[2022-03-07] MEDS ORDERED: DOXYCYCLINE HYCLATE 100 MG in DEXTROSE 5% 100 ML IV STA (22:23)
[2022-03-07 22:41] LABS: Base Excess ABG 7.8 mEq/L (-9-1.8); HCO3 ABG 34 mmol/L (19-24); Oxygen Saturation ABG 96.5 % (90-95); PCO2 ABG 54 mmHg (35-46); PO2 ABG 71 mmHg (80-95); pH ABG 7.41 (7.35-7.45)
[2022-03-07 22:45] LABS: Allen Test Pos (Pos)
[2022-03-07] MEDS: HEPARIN SOD 5,000 UNIT/0.5 ML VIAL SQ SCH (23:00)
[2022-03-07] MEDS: ATORVASTATIN 40 MG TAB PEG SCH (23:00)
[2022-03-07] MEDS: TUBE FEEDING WATER FLUSH PEG SCH (23:50)
[2022-03-08] MEDS ORDERED: LACTATED RINGER'S 1,000 ML IV ONE (00:26)
[2022-03-08] MEDS ORDERED: LACTATED RINGER'S 1,000 ML IV SCH (00:30)
[2022-03-08 00:48] LABS: Calcium 8.4 mg/dl (8.5-10.1); Potassium 3.8 mmol/L (3.5-5.1)
[2022-03-08 00:54] LABS: BUN Creatinine Ratio 34.8 (10-20); Creatinine Clr Calc Pharmacy 33.5 ml/min; Est GFR (African American) 49.3 ml/min; Est GFR (Non-African American) 42.5 ml/min
[2022-03-08] MEDS ORDERED: XOPENEX/ATROVENT 1.25mg/0.5MG NEB COMBO NEB SCH (01:00)
[2022-03-08] MEDS ORDERED: SODIUM CHLORIDE 0.45 % 1,000 ML IV ONE ×2 (01:17→03:30)
[2022-03-08] MEDS: PIPERACILLIN/TAZOBACTAM 3.375 GM in DEXTROSE 5% 100 ML IV SCH ×3 (01:58→18:55)
[2022-03-08] MEDS ORDERED: AMPICILLIN/SULBACTAM SOD 3,000 MG in 0.9 % SODIUM CHLORIDE 100 ML IV SCH (02:00)
[2022-03-08] MEDS: LEVALBUTEROL 1.25MG/0.5ML NEB INH SCH ×7 (02:04→22:17)
[2022-03-08] MEDS: IPRATROPIUM BROMIDE NEB SOLN 0.02% 2.5 ML VIAL INH SCH ×8 (02:04→22:16)
[2022-03-08] MEDS: HEPARIN SOD 5,000 UNIT/0.5 ML VIAL SQ SCH ×3 (05:32→20:09)
[2022-03-08 06:53] LABS: Hematocrit (blood only) 29.7 % (42.0-52.0); Hemoglobin 9.2 g/dl (14.0-18.0); Mean Corpuscular Hemoglobin 30.4 pg (25.0-34.0); Mean Platelet Volume 10.6 fL (9.4-12.4); Platelet Count 243 K/uL (130-400); RDW Coefficient of Variation 13.5 % (11.5-14.5); RDW Standard Deviation 48.1 fL (36.4-46.3); Red Blood Count 3.03 M/uL (4.70-6.10); White Blood Count 11.58 K/ul (4.8-10.8)
[2022-03-08 07:43] LABS: Basophils # (auto) 0.02 K/uL (0-0.2); Basophils % (auto) 0.2 %; Immature Granulocytes # (auto) 0.24 K/uL (0.01-0.20); Immature Granulocytes % (auto) 2.1 %; Lymphocytes % (auto) 2.6 %; Monocytes # (auto) 0.79 K/uL (0.11-0.59); Monocytes % (auto) 6.8 %; Neutrophils # (auto) 10.23 K/uL (1.40-6.50); Neutrophils % (auto) 88.3 %; RBC Morphology Unremarkable
[2022-03-08 07:46] LABS: Calcium 8.2 mg/dl (8.5-10.1); Potassium 3.9 mmol/L (3.5-5.1)
[2022-03-08 07:52] LABS: BUN Creatinine Ratio 34.6 (10-20); Est GFR (African American) 59.3 ml/min; Est GFR (Non-African American) 51.2 ml/min
[2022-03-08] MEDS: DOXYCYCLINE SUSP 25 MG/5 ML 60ML PO SCH ×2 (08:41→20:09)
[2022-03-08] MEDS: TUBE FEEDING WATER FLUSH PEG SCH ×5 (08:48→23:25)
[2022-03-08] MEDS: methylPREDNISolone 40 MG in SYRINGE 0 ML IV SCH (09:38)
--- NOTE | 2022-03-08 09:57 | Electrocardiogram Report ---
Test Reason : Blood Pressure : / mmHG Vent. Rate : 125 BPM Atrial Rate : 125 BPM P-R Int : 140 ms QRS Dur : 120 ms QT Int : 332 ms P-R-T Axes : 063 -64 102 degrees QTc Int : 479 ms Sinus tachycardia Left atrial enlargement Left axis deviation Non-specific intra-ventricular conduction delay Inferior infarct , age undetermined Abnormal ECG When compared with ECG of 28-DEC-2021 18:59, Inferior infarct is now Present Confirmed by Vu Rinaldi ([id number]) on 03/08/2022 9:57:19 AM Referred By: REFERRED SELF Confirmed By:Vu Rinaldi
[2022-03-08] MEDS: FORMOTEROL 20 MCG/2 ML VIAL NEB SCH ×2 (11:09→20:01)
--- NOTE | 2022-03-08 14:02 | Hospitalist Progress Note ---
Date of Service March 08, 2022 Assessment & Plan (1) Acute hypoxemic respiratory failure: (2) Aspiration pneumonia: (3) COPD exacerbation: (4) Sepsis: Plan: History of nasopharyngeal cancer status postchemotherapy/radiation; chronic respiratory failure on 2 L of oxygen by nasal cannula, PEG tube feeding, chronic diastolic heart failure presented with acute hypoxic respiratory failure. Likely caused due to aspiration pneumonia. Patient has PEG tube ; is n.p.o. by mouth. Repeat admission in the past due to the same issue. Acute respiratory failure secondary to COPD exacerbation/aspiration pneumonia Pro-Lorenzo elevated Chest x-ray shows interstitial thickening and patchy opacities; more in right lung. Plan; Continue aggressive pulmonary toileting with duo nebs, hypertonic saline, chest vest. Continue on Zosyn and doxycycline for now; sputum for culture ordered. Continue on IV steroids; plan to switch to oral when improvement in clinical status. (5) JULES (acute kidney injury): Plan: Creatinine 1.5 on admission. Baseline around 1 Down trended with IV fluids. 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 He reports that he is feeling better compared to presentation. Reports that he has not been able to bring up phlegm. Review of Systems Review of Systems: All systems reviewed & are unremarkable except as noted in Subjective Physical Exam Physical Exam: Constitutional: Alert orient x3; in mild distress Neck: trachea midline, no thyromegaly normal visual inspection Respiratory: Bilateral decreased breath sound. Cardiovascular: RRR, no murmur, no edema Vessels: no JVD or carotid bruit Chest: normal inspection of chest Abdomen: PEG tube in place. Normal bowel sounds, soft, nontender, no hepatosplenomegaly Musculoskeletal: no cyanosis or clubbing, extremities motor strength 5/5 Skin: no rashes, warm and dry normal turgor Neurologic: PERRL, EOMI, accommodation nl, no face palsy, no dysarthria CN's II- XI intact bilaterally and moves all extremities Psychiatric: A+Ox3, euthymic affect Lymphatic: no cervical or axillary lymphadenopathy : deferred Results & Data Results & [facility] ([facility]) Vital Signs (Past 12 Hours) Vital Signs Temp Pulse Pulse Resp BP Pulse Ox O2 Del Method 03/08/22 11:26 36.4 C L 76 19 101/63 95 Oxymask 03/08/22 09:30 127/68 03/08/22 11:09 76 19 9 L Oxymask 03/08/22 09:00 78 03/08/22 09:00 Oxymask 03/08/22 07:42 36.5 C 69 18 105/61 97 Oxymask 03/08/22 07:10 36.5 C 69 105/61 97 Oxymask 03/08/22 07:09 76 19 97 Oxymask 03/08/22 03:48 92/64 L 03/08/22 02:44 36.8 C 86 25 H 74/50 L 92 Oxymask 03/08/22 02:06 80 18 94 Oxymask O2 Flow Rate 03/08/22 11:26 15 03/08/22 09:30 03/08/22 11:09 10 03/08/22 09:00 03/08/22 09:00 15 03/08/22 07:42 15 03/08/22 07:10 15 03/08/22 07:09 15 03/08/22 03:48 03/08/22 02:44 15.0 03/08/22 02:06 15 Laboratory Results Laboratory Results WBC 11.58 K/ul (4.8-10.8) H 03/08/22 06:15 RBC 3.03 M/uL (4.70-6.10) L 03/08/22 06:15 Hgb 9.2 g/dl (14.0-18.0) L 03/08/22 06:15 Hct 29.7 % (42.0-52.0) L 03/08/22 06:15 MCV 98.0 fL (80.0-100.0) 03/08/22 06:15 MCH 30.4 pg (25.0-34.0) 03/08/22 06:15 MCHC 31.0 g/dL (32.0-36.0) L 03/08/22 06:15 RDW Std Deviation 48.1 fL (36.4-46.3) H 03/08/22 06:15 RDW Coeff of Navid 13.5 % (11.5-14.5) 03/08/22 06:15 Plt Count 243 K/uL (130-400) 03/08/22 06:15 MPV 10.6 fL (9.4-12.4) 03/08/22 06:15 Immature Gran % (Auto) 2.1 % 03/08/22 06:15 Neut % (Auto) 88.3 % 03/08/22 06:15 Lymph % (Auto) 2.6 % 03/08/22 06:15 [place] % (Auto) 6.8 % 03/08/22 06:15 Eos % (Auto) 0.0 % 03/08/22 06:15 Baso % (Auto) 0.2 % 03/08/22 06:15 Neut # (Auto) 10.23 K/uL (1.40-6.50) H 03/08/22 06:15 Lymph # (Auto) 0.30 K/uL (1.2-3.4) L 03/08/22 06:15 [place] # (Auto) 0.79 K/uL (0.11-0.59) H 03/08/22 06:15 Eos # (Auto) 0.00 K/uL (0-0.50) 03/08/22 06:15 Baso # (Auto) 0.02 K/uL (0-0.2) 03/08/22 06:15 Immature Gran # (Auto) 0.24 K/uL (0.01-0.20) H 03/08/22 06:15 RBC Morphology Unremarkable 03/08/22 06:15 PT 11.9 Seconds (9.0-12.0) 03/07/22 18:55 INR 1.1 (0.9-1.1) 03/07/22 18:55 APTT 25.4 Seconds (21.0-31.0) 03/07/22 18:55 PTT Ratio 0.9 03/07/22 18:55 ABG pH 7.41 (7.35-7.45) 03/07/22 22:31 ABG pCO2 54 mmHg (35-46) H 03/07/22 22:31 ABG pO2 71 mmHg (80-95) L 03/07/22 22:31 ABG HCO3 34 mmol/L (19-24) H 03/07/22 22:31 ABG O2 Saturation 96.5 % (90-95) H 03/07/22 22:31 ABG Base Excess 7.8 mEq/L (-9-1.8) H 03/07/22 22:31 Reed Test Pos (Pos) 03/07/22 22:31 Oxygen Given 70% FIO2 03/07/22 22:31 Sodium 144 mmol/L (136-145) 03/08/22 06:15 Potassium 3.9 mmol/L (3.5-5.1) 03/08/22 06:15 Chloride 106 mmol/L (98-107) 03/08/22 06:15 Carbon Dioxide 34 mmol/L (21-32) H 03/08/22 06:15 Anion Gap 4 (3-11) 03/08/22 06:15 BUN 46 mg/dl (6-23) H 03/08/22 06:15 Creatinine 1.33 mg/dl (0.6-1.4) 03/08/22 06:15 Est Cr Clr Drug Dosing 39.0 ml/min 03/08/22 06:15 Est GFR ( Amer) 59.3 ml/min 03/08/22 06:15 Est GFR (Non-Af Amer) 51.2 ml/min 03/08/22 06:15 BUN/Creatinine Ratio 34.6 (10-20) H 03/08/22 06:15 Glucose 130 mg/dl (70-99(Fasting)) H 03/08/22 06:15 Lactate 2.0 mmol/L (0.4-2.0) 03/08/22 00:18 Calcium 8.2 mg/dl (8.5-10.1) L 03/08/22 06:15 Magnesium 2.3 mg/dl (1.7-2.4) 03/07/22 18:55 Total Bilirubin 0.6 mg/dl (0.2-1.0) 03/07/22 18:55 Direct Bilirubin 0.1 mg/dl (0-0.2) 03/07/22 18:55 AST 27 U/L (13-39) 03/07/22 18:55 ALT 10 U/L (7-52) 03/07/22 18:55 Alkaline Phosphatase 70 U/L (34-104) 03/07/22 18:55 Troponin I High Sens 18.4 pg/ml (0-20) 03/07/22 18:55 Total Protein 7.5 gm/dl (6.0-8.3) 03/07/22 18:55 Albumin 3.4 gm/dl (3.4-5.0) 03/07/22 18:55 Procalcitonin 1.50 ng/ml (0-0.5) H 03/07/22 18:55 Random Cortisol 41.10 mcg/dl 03/07/22 18:55 Urine Color Dark Yellow 03/07/22 20:35 Urine Appearance Cloudy (Clear) A 03/07/22 20:35 Urine pH 5.5 (4.5-7.5) 03/07/22 20:35 Ur Specific [place] 1.020 (1.000-1.030) 03/07/22 20:35 Urine Protein 2+ (Negative) H 03/07/22 20:35 Urine Glucose (UA) Negative (Negative) 03/07/22 20:35 Urine Ketones Trace (Negative) H 03/07/22 20:35 Urine Blood Negative (Negative) 03/07/22 20:35 Urine Nitrite Negative (Negative) 03/07/22 20:35 Urine Bilirubin Negative (Negative) 03/07/22 20:35 Urine Urobilinogen Negative (Negative) 03/07/22 20:35 Ur Leukocyte Esterase 1+ (Negative) H 03/07/22 20:35 Urine WBC (Auto) 5-10 /hpf (0-5) H 03/07/22 20:35 Urine RBC (Auto) 5-10 /hpf (0-4) H 03/07/22 20:35 U Hyaline Cast (Auto) 10-30 /lpf (0-5) H 03/07/22 20:35 U Epithel Cells (Auto) >30 /lpf (0-5) H 03/07/22 20:35 Urine Bacteria (Auto) Negative (Negative) 03/07/22 20:35 Ur Renal Epithelial Cell 0-5 /lpf (0-5) 03/07/22 20:35 Urine Crystals Not Reportable 03/07/22 20:35 Calcium Oxalate Crystal Present (None Prsent) A 03/07/22 20:35 Granular Casts 5-10 /lpf (0) H 03/07/22 20:35 Nasal Screen MRSA (PCR) Negative (Negative) 03/08/22 00:10 SARS-CoV-2 (PCR) NEGATIVE (Negative) 03/07/22 18:55 Influenza Type A (PCR) Negative (Neg) 03/07/22 18:55 Influenza Type B (PCR) Negative (Neg) 03/07/22 18:55 RSV (RT-PCR) Negative (Neg) 03/07/22 18:55 Impressions Chest X-Ray 03/07/22 18:49 XR chest 1V portable CLINICAL HISTORY: Sepsis COMPARISON STUDY: Chest CT September 07, 2021. Chest radiograph December 30, 2021. FINDINGS: Median sternotomy wires are noted. There is no pneumothorax or pleural effusion. Cardiac size is normal. Mediastinal contours are normal. Reticulonodular interstitial thickening and suspected patchy airspace opacities are greater within the right lung. These are most pronounced within the right upper lobe. IMPRESSION: Reticulonodular interstitial thickening and patchy airspace opacities, greater within the right lung. The findings favor an infectious process. Asymmetric pulmonary edema could appear similar but is considered less likely. ACT 112: Negative or not required by law. Electronically signed by: Yayo Kay M.D. 03/07/2022 7:50 PM (1) Aspiration pneumonia Aspiration pneumonia type: unspecified Laterality: right Lung location: lower lobe of lung Qualified Code(s): J69.0 - Pneumonitis due to inhalation of food and vomit (2) Sepsis Sepsis acute organ dysfunction status: unspecified Sepsis type: sepsis due to unspecified organism Qualified Code(s): A41.9 - Sepsis, unspecified organism
[2022-03-08] MEDS: SODIUM CHLOR 7% 4 ML NEB NEB SCH (20:01)
[2022-03-08] MEDS: BUDESONIDE 0.5 MG/2 ML VIAL (PULMICORT) NEB SCH (20:02)
[2022-03-08] MEDS: ATORVASTATIN 40 MG TAB PEG SCH (20:09)
[2022-03-09] MEDS: PIPERACILLIN/TAZOBACTAM 3.375 GM in DEXTROSE 5% 100 ML IV SCH ×3 (02:01→17:30)
[2022-03-09] MEDS: IPRATROPIUM BROMIDE NEB SOLN 0.02% 2.5 ML VIAL INH SCH ×6 (04:00→22:57)
[2022-03-09] MEDS: LEVALBUTEROL 1.25MG/0.5ML NEB INH SCH ×6 (04:01→22:57)
[2022-03-09] MEDS: HEPARIN SOD 5,000 UNIT/0.5 ML VIAL SQ SCH ×3 (05:06→20:46)
[2022-03-09 06:47] LABS: Basophils # (auto) 0.02 K/uL (0-0.2); Basophils % (auto) 0.2 %; Hematocrit (blood only) 34.3 % (42.0-52.0); Hemoglobin 10.8 g/dl (14.0-18.0); Immature Granulocytes # (auto) 0.11 K/uL (0.01-0.20); Immature Granulocytes % (auto) 0.9 %; Lymphocytes # (auto) 0.32 K/uL (1.2-3.4); Lymphocytes % (auto) 2.7 %; Mean Corpuscular Hemoglobin 30.2 pg (25.0-34.0); Mean Corpuscular Hgb Conc 31.5 g/dL (32.0-36.0); Mean Corpuscular Volume 95.8 fL (80.0-100.0); Mean Platelet Volume 10.7 fL (9.4-12.4); Monocytes # (auto) 0.74 K/uL (0.11-0.59); Monocytes % (auto) 6.2 %; Neutrophils # (auto) 10.83 K/uL (1.40-6.50); Platelet Count 256 K/uL (130-400); RDW Coefficient of Variation 13.2 % (11.5-14.5); RDW Standard Deviation 46.5 fL (36.4-46.3); Red Blood Count 3.58 M/uL (4.70-6.10); White Blood Count 12.02 K/ul (4.8-10.8)
[2022-03-09] MEDS: BUDESONIDE 0.5 MG/2 ML VIAL (PULMICORT) NEB SCH ×2 (07:01→19:26)
[2022-03-09] MEDS: SODIUM CHLOR 7% 4 ML NEB NEB SCH ×2 (07:02→19:25)
[2022-03-09] MEDS: FORMOTEROL 20 MCG/2 ML VIAL NEB SCH ×2 (07:02→19:26)
[2022-03-09 08:00] LABS: Albumin Globulin Ratio 0.8 (0.9-2); Albumin Level 2.9 gm/dl (3.4-5.0); BUN Creatinine Ratio 43.3 (10-20); Bilirubin,Total 0.6 mg/dl (0.2-1.0); Calcium 8.7 mg/dl (8.5-10.1); Creatinine Clr Calc Pharmacy 52.2 ml/min; Est GFR (African American) 86.9 ml/min; Globulin 3.6 gm/dl (2.5-4.0); Potassium 3.6 mmol/L (3.5-5.1); Total Protein 6.5 gm/dl (6.0-8.3)
[2022-03-09] MEDS: DOXYCYCLINE SUSP 25 MG/5 ML 60ML PO SCH ×2 (09:00→20:46)
[2022-03-09] MEDS: TUBE FEEDING WATER FLUSH PEG SCH ×5 (09:01→23:30)
[2022-03-09] MEDS: methylPREDNISolone 40 MG in SYRINGE 0 ML IV SCH (09:01)
[2022-03-09] MEDS: NUTREN ENTERAL FEEDING PEG SCH ×3 (09:01→17:30)
--- NOTE | 2022-03-09 11:40 | Hospitalist Progress Note ---
Date of Service March 09, 2022 Assessment & Plan (1) Acute hypoxemic respiratory failure: (2) Aspiration pneumonia: (3) COPD exacerbation: (4) Sepsis: Plan: History of nasopharyngeal cancer status postchemotherapy/radiation; chronic respiratory failure on 2 L of oxygen by nasal cannula, PEG tube feeding, chronic diastolic heart failure presented with acute hypoxic respiratory failure. Likely caused due to aspiration pneumonia. Patient has PEG tube ; is n.p.o. by mouth. Repeat admission in the past due to the same issue. Acute respiratory failure secondary to COPD exacerbation/aspiration pneumonia Pro-Lorenzo elevated Chest x-ray shows interstitial thickening and patchy opacities; more in right lung. Plan; Continue aggressive pulmonary toileting with duo nebs, hypertonic saline, chest vest. Continue on Zosyn and doxycycline for now; sputum culture in the past( september 2021) had shown Klebsiella pneumonia and Staph aureus. Continue on IV steroids; plan to switch to oral when improvement in clinical status. (5) JULES (acute kidney injury): Plan: Creatinine 1.5 on admission. Baseline around 1 Down trended with IV fluids. 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 He reports that he is feeling much comfortable compared to yesterday; currently on 6 L of oxygen via Oxymask. Afebrile overnight. Review of Systems Review of Systems: All systems reviewed & are unremarkable except as noted in Subjective Physical Exam Physical Exam: Constitutional: Alert orient x3; in mild distress Neck: trachea midline, no thyromegaly normal visual inspection Respiratory: Bilateral decreased breath sound. Cardiovascular: RRR, no murmur, no edema Vessels: no JVD or carotid bruit Chest: normal inspection of chest Abdomen: PEG tube in place. Normal bowel sounds, soft, nontender, no hepatosplenomegaly Musculoskeletal: no cyanosis or clubbing, extremities motor strength 5/5 Skin: no rashes, warm and dry normal turgor Neurologic: PERRL, EOMI, accommodation nl, no face palsy, no dysarthria CN's II- XI intact bilaterally and moves all extremities Psychiatric: A+Ox3, euthymic affect Lymphatic: no cervical or axillary lymphadenopathy : deferred Results & Data Results & Data ([facility]) Vital Signs (Past 12 Hours) Vital Signs Temp Pulse Pulse Resp BP Pulse Ox O2 Del Method 03/09/22 11:32 36.3 C L 76 19 94/56 L 94 Oxymask 03/09/22 10:43 80 20 96 Oxymask 03/09/22 08:33 76 03/09/22 08:33 Oxymask 03/09/22 07:50 36.3 C L 78 17 117/73 98 Room Air, Nebulizer 03/09/22 07:04 77 20 92 Oxymask 03/09/22 04:01 79 20 99 Oxymask 03/09/22 03:32 36.4 C L 90 20 131/73 93 Oxymask O2 Flow Rate 03/09/22 11:32 4 03/09/22 10:43 6 03/09/22 08:33 03/09/22 08:33 6 03/09/22 07:50 03/09/22 07:04 6 03/09/22 04:01 7 03/09/22 03:32 6 Laboratory Results Laboratory Results WBC 12.02 K/ul (4.8-10.8) H 03/09/22 06:06 RBC 3.58 M/uL (4.70-6.10) L 03/09/22 06:06 Hgb 10.8 g/dl (14.0-18.0) L 03/09/22 06:06 Hct 34.3 % (42.0-52.0) L 03/09/22 06:06 MCV 95.8 fL (80.0-100.0) 03/09/22 06:06 MCH 30.2 pg (25.0-34.0) 03/09/22 06:06 MCHC 31.5 g/dL (32.0-36.0) L 03/09/22 06:06 RDW Std Deviation 46.5 fL (36.4-46.3) H 03/09/22 06:06 RDW Coeff of Navid 13.2 % (11.5-14.5) 03/09/22 06:06 Plt Count 256 K/uL (130-400) 03/09/22 06:06 MPV 10.7 fL (9.4-12.4) 03/09/22 06:06 Immature Gran % (Auto) 0.9 % 03/09/22 06:06 Neut % (Auto) 90.0 % 03/09/22 06:06 Lymph % (Auto) 2.7 % 03/09/22 06:06 [place] % (Auto) 6.2 % 03/09/22 06:06 Eos % (Auto) 0.0 % 03/09/22 06:06 Baso % (Auto) 0.2 % 03/09/22 06:06 Neut # (Auto) 10.83 K/uL (1.40-6.50) H 03/09/22 06:06 Lymph # (Auto) 0.32 K/uL (1.2-3.4) L 03/09/22 06:06 [place] # (Auto) 0.74 K/uL (0.11-0.59) H 03/09/22 06:06 Eos # (Auto) 0.00 K/uL (0-0.50) 03/09/22 06:06 Baso # (Auto) 0.02 K/uL (0-0.2) 03/09/22 06:06 Immature Gran # (Auto) 0.11 K/uL (0.01-0.20) 03/09/22 06:06 RBC Morphology Unremarkable 03/08/22 06:15 PT 11.9 Seconds (9.0-12.0) 03/07/22 18:55 INR 1.1 (0.9-1.1) 03/07/22 18:55 APTT 25.4 Seconds (21.0-31.0) 03/07/22 18:55 PTT Ratio 0.9 03/07/22 18:55 ABG pH 7.41 (7.35-7.45) 03/07/22 22:31 ABG pCO2 54 mmHg (35-46) H 03/07/22 22:31 ABG pO2 71 mmHg (80-95) L 03/07/22 22:31 ABG HCO3 34 mmol/L (19-24) H 03/07/22 22:31 ABG O2 Saturation 96.5 % (90-95) H 03/07/22 22:31 ABG Base Excess 7.8 mEq/L (-9-1.8) H 03/07/22 22:31 Reed Test Pos (Pos) 03/07/22 22:31 Oxygen Given 70% FIO2 03/07/22 22:31 Sodium 144 mmol/L (136-145) 03/09/22 06:06 Potassium 3.6 mmol/L (3.5-5.1) 03/09/22 06:06 Chloride 104 mmol/L (98-107) 03/09/22 06:06 Carbon Dioxide 34 mmol/L (21-32) H 03/09/22 06:06 Anion Gap 6 (3-11) 03/09/22 06:06 BUN 42 mg/dl (6-23) H 03/09/22 06:06 Creatinine 0.97 mg/dl (0.6-1.4) D 03/09/22 06:06 Est Cr Clr Drug Dosing 52.2 ml/min 03/09/22 06:06 Est GFR ( Amer) 86.9 ml/min 03/09/22 06:06 Est GFR (Non-Af Amer) 75.0 ml/min 03/09/22 06:06 BUN/Creatinine Ratio 43.3 (10-20) H 03/09/22 06:06 Glucose 113 mg/dl (70-99(Fasting)) H 03/09/22 06:06 Lactate 2.0 mmol/L (0.4-2.0) 03/08/22 00:18 Calcium 8.7 mg/dl (8.5-10.1) 03/09/22 06:06 Magnesium 2.3 mg/dl (1.7-2.4) 03/07/22 18:55 Total Bilirubin 0.6 mg/dl (0.2-1.0) 03/09/22 06:06 Direct Bilirubin 0.1 mg/dl (0-0.2) 03/07/22 18:55 AST 35 U/L (13-39) 03/09/22 06:06 ALT 11 U/L (7-52) 03/09/22 06:06 Alkaline Phosphatase 54 U/L (34-104) 03/09/22 06:06 Troponin I High Sens 18.4 pg/ml (0-20) 03/07/22 18:55 Total Protein 6.5 gm/dl (6.0-8.3) 03/09/22 06:06 Albumin 2.9 gm/dl (3.4-5.0) L 03/09/22 06:06 Globulin 3.6 gm/dl (2.5-4.0) 03/09/22 06:06 Albumin/Globulin Ratio 0.8 (0.9-2) L 03/09/22 06:06 Procalcitonin 1.50 ng/ml (0-0.5) H 03/07/22 18:55 Random Cortisol 41.10 mcg/dl 03/07/22 18:55 Urine Color Dark Yellow 03/07/22 20:35 Urine Appearance Cloudy (Clear) A 03/07/22 20:35 Urine pH 5.5 (4.5-7.5) 03/07/22 20:35 Ur Specific [place] 1.020 (1.000-1.030) 03/07/22 20:35 Urine Protein 2+ (Negative) H 03/07/22 20:35 Urine Glucose (UA) Negative (Negative) 03/07/22 20:35 Urine Ketones Trace (Negative) H 03/07/22 20:35 Urine Blood Negative (Negative) 03/07/22 20:35 Urine Nitrite Negative (Negative) 03/07/22 20:35 Urine Bilirubin Negative (Negative) 03/07/22 20:35 Urine Urobilinogen Negative (Negative) 03/07/22 20:35 Ur Leukocyte Esterase 1+ (Negative) H 03/07/22 20:35 Urine WBC (Auto) 5-10 /hpf (0-5) H 03/07/22 20:35 Urine RBC (Auto) 5-10 /hpf (0-4) H 03/07/22 20:35 U Hyaline Cast (Auto) 10-30 /lpf (0-5) H 03/07/22 20:35 U Epithel Cells (Auto) >30 /lpf (0-5) H 03/07/22 20:35 Urine Bacteria (Auto) Negative (Negative) 03/07/22 20:35 Ur Renal Epithelial Cell 0-5 /lpf (0-5) 03/07/22 20:35 Urine Crystals Not Reportable 03/07/22 20:35 Calcium Oxalate Crystal Present (None Prsent) A 03/07/22 20:35 Granular Casts 5-10 /lpf (0) H 03/07/22 20:35 Nasal Screen MRSA (PCR) Negative (Negative) 03/08/22 00:10 SARS-CoV-2 (PCR) NEGATIVE (Negative) 03/07/22 18:55 Influenza Type A (PCR) Negative (Neg) 03/07/22 18:55 Influenza Type B (PCR) Negative (Neg) 03/07/22 18:55 RSV (RT-PCR) Negative (Neg) 03/07/22 18:55 Impressions Chest X-Ray 03/07/22 18:49 XR chest 1V portable CLINICAL HISTORY: Sepsis COMPARISON STUDY: Chest CT September 07, 2021. Chest radiograph December 30, 2021. FINDINGS: Median sternotomy wires are noted. There is no pneumothorax or pleural effusion. Cardiac size is normal. Mediastinal contours are normal. Reticulonodular interstitial thickening and suspected patchy airspace opacities are greater within the right lung. These are most pronounced within the right upper lobe. IMPRESSION: Reticulonodular interstitial thickening and patchy airspace opacities, greater within the right lung. The findings favor an infectious process. Asymmetric pulmonary edema could appear similar but is considered less likely. ACT 112: Negative or not required by law. Electronically signed by: Yayo Kay M.D. 03/07/2022 7:50 PM (1) Aspiration pneumonia Aspiration pneumonia type: unspecified Laterality: right Lung location: lower lobe of lung Qualified Code(s): J69.0 - Pneumonitis due to inhalation of food and vomit (2) Sepsis Sepsis acute organ dysfunction status: unspecified Sepsis type: sepsis due to unspecified organism Qualified Code(s): A41.9 - Sepsis, unspecified organism
[2022-03-09] MEDS: ATORVASTATIN 40 MG TAB PEG SCH (20:46)
[2022-03-10] MEDS: PIPERACILLIN/TAZOBACTAM 3.375 GM in DEXTROSE 5% 100 ML IV SCH ×2 (01:27→09:23)
[2022-03-10] MEDS: IPRATROPIUM BROMIDE NEB SOLN 0.02% 2.5 ML VIAL INH SCH ×5 (03:21→19:54)
[2022-03-10] MEDS: LEVALBUTEROL 1.25MG/0.5ML NEB INH SCH ×6 (03:21→19:54)
[2022-03-10] MEDS: HEPARIN SOD 5,000 UNIT/0.5 ML VIAL SQ SCH ×3 (05:23→20:39)
[2022-03-10] MEDS: SODIUM CHLOR 7% 4 ML NEB NEB SCH ×2 (07:04→19:51)
[2022-03-10] MEDS: BUDESONIDE 0.5 MG/2 ML VIAL (PULMICORT) NEB SCH ×2 (07:04→19:51)
[2022-03-10] MEDS: FORMOTEROL 20 MCG/2 ML VIAL NEB SCH ×2 (07:04→19:52)
[2022-03-10] MEDS: TUBE FEEDING WATER FLUSH PEG SCH ×4 (08:51→20:37)
[2022-03-10] MEDS: methylPREDNISolone 40 MG in SYRINGE 0 ML IV SCH (08:51)
[2022-03-10] MEDS: DOXYCYCLINE SUSP 25 MG/5 ML 60ML PO SCH (08:51)
[2022-03-10] MEDS: NUTREN ENTERAL FEEDING PEG SCH ×3 (08:52→17:30)
--- NOTE | 2022-03-10 09:21 | XRay Report ---
XR chest 1V portable HISTORY: 76 years-old Male Follow up on pneumonia acute shortness of breath COMPARISON: Chest radiograph 03/07/2022 TECHNIQUE: AP view of the chest FINDINGS: Cardiac silhouette is enlarged. Prior median sternotomy. Unchanged appearance of the reticular nodula r opacities. Mildly progressed ill-defined airspace opacities of the lateral right lung base. No pneu mothorax, pleural effusion or overt pulmonary edema. Unchanged mild left hilar prominence. Degenerati ve changes of the shoulders and spine. IMPRESSION: Unchanged reticular nodular opacities with mildly progressed right lung base airspace den sities. Findings are suggestive of an infectious or inflammatory pneumonitis. ACT 112: Negative or not required by law. The above report was generated using voice recognition software. It may contain grammatical, syntax o r spelling errors. Electronically signed by: Marcel Cloud M.D. 03/10/2022 9:19 AM
[2022-03-10] MEDS: levoFLOXacin 750 MG TAB PEG SCH (10:55)
[2022-03-10] MEDS ORDERED: levoFLOXacin 750 MG TAB PO SCH (11:00)
--- NOTE | 2022-03-10 11:50 | Hospitalist Progress Note ---
Date of Service March 10, 2022 Assessment & Plan (1) Acute hypoxemic respiratory failure: (2) Aspiration pneumonia: (3) COPD exacerbation: (4) Sepsis: Plan: History of nasopharyngeal cancer status postchemotherapy/radiation; chronic respiratory failure on 2-4 L of oxygen by nasal cannula, PEG tube feeding, chronic diastolic heart failure presented with acute hypoxic respiratory failure. Likely caused due to aspiration pneumonia. Patient has PEG tube ; is n.p.o. by mouth. Repeat admission in the past due to the same issue. Acute respiratory failure secondary to COPD exacerbation/aspiration pneumonia Pro-Lorenzo elevated Chest x-ray shows interstitial thickening and patchy opacities; more in right lung. Plan; Continue aggressive pulmonary toileting with duo nebs, hypertonic saline, chest vest. Antibiotics changed to Levaquin; plan for 7-day course in total. IV steroids changed to oral. (5) JULES (acute kidney injury): Plan: Creatinine 1.5 on admission. Baseline around 1 Down trended with IV fluids. Continue to monitor BMP daily Plan Other chronic medical conditions:Chronic diastolic heart failure, chronic LBBB, CAD status post CABG, ASD status post bioprosthetic AVR, HLD on statin, nasopharyngeal cancer status post chemoradiation/in remission, chronic anemia, past tobacco abuse Continue with/resume home meds as and when able Full code DVT Heparin PT OT ordered; return home. Will obtain home nebulizer for airway clearance with hypertonic saline and duo nebs. He continues to be hospitalized due to acute hypoxic respiratory failure due to bilateral pneumonia requiring aggressive pulmonary toileting. Admission and Anticipated Discharge Date Admission Date: March 07, 2022 Subjective Patient seen and examined at bedside. He reports improvement in his breathing. He is bringing out phlegm. Review of Systems Review of Systems: All systems reviewed & are unremarkable except as noted in Subjective Physical Exam Physical Exam: Constitutional: Alert orient x3; in mild distress Neck: trachea midline, no thyromegaly normal visual inspection Respiratory: Bilateral decreased breath sound. coarse crackles present. Cardiovascular: RRR, no murmur, no edema Vessels: no JVD or carotid bruit Chest: normal inspection of chest Abdomen: PEG tube in place. Normal bowel sounds, soft, nontender, no hepatosplenomegaly Musculoskeletal: no cyanosis or clubbing, extremities motor strength 5/5 Skin: no rashes, warm and dry normal turgor Neurologic: PERRL, EOMI, accommodation nl, no face palsy, no dysarthria CN's II- XI intact bilaterally and moves all extremities Psychiatric: A+Ox3, euthymic affect Lymphatic: no cervical or axillary lymphadenopathy : deferred Results & Data Results & Data ([facility]) Vital Signs (Past 12 Hours) Vital Signs Temp Pulse Pulse Resp BP BP Pulse Ox 03/10/22 11:11 36.8 C 87 20 142/81 H 03/10/22 11:02 78 20 91 03/10/22 08:00 77 03/10/22 08:00 03/10/22 07:54 36.7 C 90 20 149/77 H 03/10/22 07:04 86 18 97 03/10/22 03:48 36.5 C 98 H 20 151/80 H 92 03/10/22 03:22 73 20 95 O2 Del Method O2 Flow Rate 03/10/22 11:11 Oxymask 8 03/10/22 11:02 Oxymask 3 03/10/22 08:00 03/10/22 08:00 Oxymask 3 03/10/22 07:54 Oxymask 8 03/10/22 07:04 Oxymask 6 03/10/22 03:48 Nasal Cannula 10.0 03/10/22 03:22 Oxymask 10 Laboratory Results Laboratory Results WBC 12.02 K/ul (4.8-10.8) H 03/09/22 06:06 RBC 3.58 M/uL (4.70-6.10) L 03/09/22 06:06 Hgb 10.8 g/dl (14.0-18.0) L 03/09/22 06:06 Hct 34.3 % (42.0-52.0) L 03/09/22 06:06 MCV 95.8 fL (80.0-100.0) 03/09/22 06:06 MCH 30.2 pg (25.0-34.0) 03/09/22 06:06 MCHC 31.5 g/dL (32.0-36.0) L 03/09/22 06:06 RDW Std Deviation 46.5 fL (36.4-46.3) H 03/09/22 06:06 RDW Coeff of Navid 13.2 % (11.5-14.5) 03/09/22 06:06 Plt Count 256 K/uL (130-400) 03/09/22 06:06 MPV 10.7 fL (9.4-12.4) 03/09/22 06:06 Immature Gran % (Auto) 0.9 % 03/09/22 06:06 Neut % (Auto) 90.0 % 03/09/22 06:06 Lymph % (Auto) 2.7 % 03/09/22 06:06 [place] % (Auto) 6.2 % 03/09/22 06:06 Eos % (Auto) 0.0 % 03/09/22 06:06 Baso % (Auto) 0.2 % 03/09/22 06:06 Neut # (Auto) 10.83 K/uL (1.40-6.50) H 03/09/22 06:06 Lymph # (Auto) 0.32 K/uL (1.2-3.4) L 03/09/22 06:06 [place] # (Auto) 0.74 K/uL (0.11-0.59) H 03/09/22 06:06 Eos # (Auto) 0.00 K/uL (0-0.50) 03/09/22 06:06 Baso # (Auto) 0.02 K/uL (0-0.2) 03/09/22 06:06 Immature Gran # (Auto) 0.11 K/uL (0.01-0.20) 03/09/22 06:06 RBC Morphology Unremarkable 03/08/22 06:15 PT 11.9 Seconds (9.0-12.0) 03/07/22 18:55 INR 1.1 (0.9-1.1) 03/07/22 18:55 APTT 25.4 Seconds (21.0-31.0) 03/07/22 18:55 PTT Ratio 0.9 03/07/22 18:55 ABG pH 7.41 (7.35-7.45) 03/07/22 22:31 ABG pCO2 54 mmHg (35-46) H 03/07/22 22:31 ABG pO2 71 mmHg (80-95) L 03/07/22 22:31 ABG HCO3 34 mmol/L (19-24) H 03/07/22 22:31 ABG O2 Saturation 96.5 % (90-95) H 03/07/22 22:31 ABG Base Excess 7.8 mEq/L (-9-1.8) H 03/07/22 22:31 Reed Test Pos (Pos) 03/07/22 22:31 Oxygen Given 70% FIO2 03/07/22 22:31 Sodium 144 mmol/L (136-145) 03/09/22 06:06 Potassium 3.6 mmol/L (3.5-5.1) 03/09/22 06:06 Chloride 104 mmol/L (98-107) 03/09/22 06:06 Carbon Dioxide 34 mmol/L (21-32) H 03/09/22 06:06 Anion Gap 6 (3-11) 03/09/22 06:06 BUN 42 mg/dl (6-23) H 03/09/22 06:06 Creatinine 0.97 mg/dl (0.6-1.4) D 03/09/22 06:06 Est Cr Clr Drug Dosing 52.2 ml/min 03/09/22 06:06 Est GFR ( Amer) 86.9 ml/min 03/09/22 06:06 Est GFR (Non-Af Amer) 75.0 ml/min 03/09/22 06:06 BUN/Creatinine Ratio 43.3 (10-20) H 03/09/22 06:06 Glucose 113 mg/dl (70-99(Fasting)) H 03/09/22 06:06 POC Glucose 106 mg/dl (70-99) H 03/10/22 07:14 Lactate 2.0 mmol/L (0.4-2.0) 03/08/22 00:18 Calcium 8.7 mg/dl (8.5-10.1) 03/09/22 06:06 Magnesium 2.3 mg/dl (1.7-2.4) 03/07/22 18:55 Total Bilirubin 0.6 mg/dl (0.2-1.0) 03/09/22 06:06 Direct Bilirubin 0.1 mg/dl (0-0.2) 03/07/22 18:55 AST 35 U/L (13-39) 03/09/22 06:06 ALT 11 U/L (7-52) 03/09/22 06:06 Alkaline Phosphatase 54 U/L (34-104) 03/09/22 06:06 Troponin I High Sens 18.4 pg/ml (0-20) 03/07/22 18:55 Total Protein 6.5 gm/dl (6.0-8.3) 03/09/22 06:06 Albumin 2.9 gm/dl (3.4-5.0) L 03/09/22 06:06 Globulin 3.6 gm/dl (2.5-4.0) 03/09/22 06:06 Albumin/Globulin Ratio 0.8 (0.9-2) L 03/09/22 06:06 Procalcitonin 1.50 ng/ml (0-0.5) H 03/07/22 18:55 Random Cortisol 41.10 mcg/dl 03/07/22 18:55 Urine Color Dark Yellow 03/07/22 20:35 Urine Appearance Cloudy (Clear) A 03/07/22 20:35 Urine pH 5.5 (4.5-7.5) 03/07/22 20:35 Ur Specific [place] 1.020 (1.000-1.030) 03/07/22 20:35 Urine Protein 2+ (Negative) H 03/07/22 20:35 Urine Glucose (UA) Negative (Negative) 03/07/22 20:35 Urine Ketones Trace (Negative) H 03/07/22 20:35 Urine Blood Negative (Negative) 03/07/22 20:35 Urine Nitrite Negative (Negative) 03/07/22 20:35 Urine Bilirubin Negative (Negative) 03/07/22 20:35 Urine Urobilinogen Negative (Negative) 03/07/22 20:35 Ur Leukocyte Esterase 1+ (Negative) H 03/07/22 20:35 Urine WBC (Auto) 5-10 /hpf (0-5) H 03/07/22 20:35 Urine RBC (Auto) 5-10 /hpf (0-4) H 03/07/22 20:35 U Hyaline Cast (Auto) 10-30 /lpf (0-5) H 03/07/22 20:35 U Epithel Cells (Auto) >30 /lpf (0-5) H 03/07/22 20:35 Urine Bacteria (Auto) Negative (Negative) 03/07/22 20:35 Ur Renal Epithelial Cell 0-5 /lpf (0-5) 03/07/22 20:35 Urine Crystals Not Reportable 03/07/22 20:35 Calcium Oxalate Crystal Present (None Prsent) A 03/07/22 20:35 Granular Casts 5-10 /lpf (0) H 03/07/22 20:35 Nasal Screen MRSA (PCR) Negative (Negative) 03/08/22 00:10 SARS-CoV-2 (PCR) NEGATIVE (Negative) 03/07/22 18:55 Influenza Type A (PCR) Negative (Neg) 03/07/22 18:55 Influenza Type B (PCR) Negative (Neg) 03/07/22 18:55 RSV (RT-PCR) Negative (Neg) 03/07/22 18:55 Impressions Chest X-Ray 03/10/22 07:55 XR chest 1V portable HISTORY: 76 years-old Male Follow up on pneumonia acute shortness of breath COMPARISON: Chest radiograph 03/07/2022 TECHNIQUE: AP view of the chest FINDINGS: Cardiac silhouette is enlarged. Prior median sternotomy. Unchanged appearance of the reticular nodular opacities. Mildly progressed ill-defined airspace opacities of the lateral right lung base. No pneumothorax, pleural effusion or overt pulmonary edema. Unchanged mild left hilar prominence. Degenerative changes of the shoulders and spine. IMPRESSION: Unchanged reticular nodular opacities with mildly progressed right lung base airspace densities. Findings are suggestive of an infectious or inflammatory pneumonitis. ACT 112: Negative or not required by law. The above report was generated using voice recognition software. It may contain grammatical, syntax or spelling errors. Electronically signed by: Marcel Cloud M.D. 03/10/2022 9:19 AM (1) Aspiration pneumonia Aspiration pneumonia type: unspecified Laterality: right Lung location: lower lobe of lung Qualified Code(s): J69.0 - Pneumonitis due to inhalation of food and vomit (2) Sepsis Sepsis acute organ dysfunction status: unspecified Sepsis type: sepsis due to unspecified organism Qualified Code(s): A41.9 - Sepsis, unspecified organism
[2022-03-10] MEDS: ATORVASTATIN 40 MG TAB PEG SCH (20:37)
[2022-03-11] MEDS: TUBE FEEDING WATER FLUSH PEG SCH ×3 (00:07→10:52)
[2022-03-11] MEDS: IPRATROPIUM BROMIDE NEB SOLN 0.02% 2.5 ML VIAL INH SCH ×5 (00:15→14:32)
[2022-03-11] MEDS: LEVALBUTEROL 1.25MG/0.5ML NEB INH SCH ×5 (00:15→14:32)
[2022-03-11] MEDS: HEPARIN SOD 5,000 UNIT/0.5 ML VIAL SQ SCH ×2 (05:21→13:18)
[2022-03-11] MEDS: BUDESONIDE 0.5 MG/2 ML VIAL (PULMICORT) NEB SCH (06:51)
[2022-03-11] MEDS: SODIUM CHLOR 7% 4 ML NEB NEB SCH (06:52)
[2022-03-11] MEDS: FORMOTEROL 20 MCG/2 ML VIAL NEB SCH (06:52)
[2022-03-11] MEDS: NUTREN ENTERAL FEEDING PEG SCH ×2 (08:53→11:58)
[2022-03-11] MEDS ORDERED: predniSONE 20 MG TAB PO SCH (09:00)
[2022-03-11] MEDS: levoFLOXacin 750 MG TAB PEG SCH (10:52)
--- NOTE | 2022-03-11 12:13 | Discharge Summary ---
Date of Service March 11, 2022 Admission HPI Per Admitting Provider History obtained from patient and records. Limited history from patient secondary to BiPAP. Medical history significant for chronic respiratory failure occasional supplemental home O2 use, chronic diastolic heart failure (EF 50 to 55%, TTE 2020) , chronic LBBB, CAD status post CABG, status post bioprosthetic AVR, COPD as per records, chronic pulmonary aspiration status post PEG tube placement, hypertension, hyperlipidemia, nasopharyngeal cancer status post chemoradiation, chronic anemia (baseline hemoglobin of 11-13 ), past tobacco abuse. 3 admissions last year for recurrent aspiration pneumonia. Most recent one was in December 2021. Patient had recurrent episodes of vomiting today without abdominal pain. Subsequently noted to have junky cough symptoms and increasingly short of breath. Patient denies chest pain. Compliant with strict n.p.o. status. SBP and O2 sats noted to be 80s at the ER. Zosyn administered at the ER. 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 Admission Exam Per Admitting Provider GENERAL: uncomfortable, respiratory distress SKIN: Pallor, warm HEENT: Pale palpebral conjunctivae, no ptosis, dry buccal mucosa, BiPAP in place NECK : Supple, no tenderness CHEST : Decreased breath sounds, expiratory wheezes, no tenderness HEART : Tachycardic, no obvious murmurs ABDOMEN: Some distention, PEG tube in place, nontender EXTREMITIES : No LE swelling/tenderness, no other conspicuous deformities noted NEUROLOGIC : Coherent, no facial asymmetry, no other gross focality Principal Diagnosis (1) Acute hypoxemic respiratory failure: (2) Aspiration pneumonia: (3) COPD exacerbation: (4) Sepsis: (5) JULES Discharge Exam Constitutional: Alert orient x3; not in any distress Neck: trachea midline, no thyromegaly normal visual inspection Respiratory: Bilateral decreased breath sound. coarse crackles present. Cardiovascular: RRR, no murmur, no edema Vessels: no JVD or carotid bruit Chest: normal inspection of chest Abdomen: PEG tube in place. Normal bowel sounds, soft, nontender, no hepatosplenomegaly Musculoskeletal: no cyanosis or clubbing, extremities motor strength 5/5 Skin: no rashes, warm and dry normal turgor Neurologic: PERRL, EOMI, accommodation nl, no face palsy, no dysarthria CN's II- XI intact bilaterally and moves all extremities Psychiatric: A+Ox3, euthymic affect Lymphatic: no cervical or axillary lymphadenopathy : deferred Discharge Data Allergies Allergy/AdvReac Type Severity Reaction Status Date / Time No Known Allergies Allergy Verified 12/28/21 21:44 Consultations 03/07/22 20:12 ED Decision to Admit Stat Hospital Course (1) Acute hypoxemic respiratory failure: (2) Aspiration pneumonia: (3) COPD exacerbation: (4) Sepsis: History of nasopharyngeal cancer status postchemotherapy/radiation; chronic respiratory failure on 2-4 L of oxygen by nasal cannula, PEG tube feeding, chronic diastolic heart failure presented with acute hypoxic respiratory failure. Likely caused due to aspiration pneumonia. Patient has PEG tube ; is n.p.o. by mouth. Repeat admission in the past due to the same issue. Acute respiratory failure secondary to COPD exacerbation/aspiration pneumonia Pro-Lorenzo elevated Chest x-ray shows interstitial thickening and patchy opacities; more in right lung. Plan; Patient received aggressive pulmonary toileting with hypertonic saline, duo nebs and cough during the hospitalization. His oxygen requirement down trended to baseline at 3 L via Oxymask. He was treated with IV antibiotics (Zosyn) and doxycycline, IV steroid. On discharge, patient placed on Augmentin 500 mg 3 times daily and doxycycline twice daily for 5 more days. Prednisone 40 mg for 3 more days Nebulizer prescription given to case management; hypertonic saline and duo nebs solution ordered. Respiratory to teach patient how to use it. Prescription for infusion pump given to case management. Patient to change from gravity PEG tube feeding to infusion pump. Home health to be arranged by case management. (5) JULES (acute kidney injury): Resolved after IV hydration. Total Time Total Time Spent Total Time Spent (In Minutes): 50 Total Time Includes: Examination of the Patient, Discharge Planning, Medication Reconciliation, Communication With Other Providers and Other Discharge Plan Discharge Items Patient Disposition: Home - Home Health Services Reason For Visit: RESP FAILURE Discharge Diagnosis: Acute hypoxic respiratory failure Community-acquired pneumonia COPD exacerbation Acute kidney injury Activity: Resume your previous activity Weightbearing: Full weightbearing Non-emergency contact: Primary Care Provider Call non-emergency contact if: you have any medication questions and your symptoms worsen Follow-up/Referrals: Prudencio Burns MD [Primary Care Provider] - (Date & Time 03/15/2022 11:00 AM Provider Prudencio Burns III, MD Department Family [facility] ) Brian Steiner M.ED [Non-Staff] - (Date & Time 03/17/2022 1:00 PM Provider Brian Steiner, [facility] Department Voice [facility] ) Diet: Nothing by Mouth Addtl Attending Provider Instructions: You are admitted to the hospital with COPD exacerbation and pneumonia. For the pneumonia, you are prescribed following medication; 1) Augmentin(amoxicillinclavulanate 250-62.4) 10 ml 3 times a day for 5 days. 2) Doxycycline 100 mg twice daily for 5 days. Crush the tablet and dissolve it in water. You were prescribed prednisone 40 mg (2 tablets) for 3 more days for the COPD exacerbation. You are prescribed nebulizer solution (hypertonic saline); please use it with a nebulizer machine twice daily. It will help clear out your lungs. Use DuoNeb through the nebulizer machine twice daily after you use the hypertonic saline nebulization. You have a follow-up set up with her primary care doctor for next week on March 15. Your appointment with Brian Steiner ( speech-language pathologist) is rescheduled for March 17 at 1 PM. Pending Studies at Discharge: No Stand-Alone Forms: My [facility], Smoking Cessation Medications and DC Order Prescriptions: New prednisone 20 mg Tablet 40 mg PO DAILY 3 Days Qty: 6 0RF sodium chloride 7 % Solution For Nebulization 4 ml NEB BIDR Qty: 120 0RF amoxicillin-pot clavulanate 250-62.5 mg/5 mL suspension for reconstitution 10 ml PO Q8H 5 Days Qty: 150 0RF doxycycline hyclate 100 mg tablet 100 mg PO Q12H 5 Days Qty: 10 0RF ipratropium-albuterol 0.5 mg-3 mg(2.5 mg base)/3 mL solution for nebulization 3 ml inhalation BID Qty: 90 0RF Continued atorvastatin 40 mg Tablet 40 mg feeding tube QPM nitroglycerin 0.4 mg Tablet, Sublingual 0.4 mg sublingual UD PRN (Reason: Chest Pain) Rx Instructions: NEEDEDFOR CHEST PAIN : ONE TABLET UNDER THE TONGUE EVERY 5 MINUTES UP TO THREE DOSES. albuterol sulfate [ProAir HFA] 90 mcg/actuation HFA aerosol inhaler 2 inh inhalation Q6H PRN (Reason: shortness of breath or wheezing) Qty: 8.5 0RF aspirin 81 mg Tablet,Chewable 81 mg feeding tube QDL Nutren 2.0 0.08 gram-2 kcal/mL Liquid 1 ea feeding tube QID Rx Instructions: administer via gravity bag Trelegy Ellipta 100-62.5-25 mcg blister with device 1 inh INHALATION QAM Saline Mist 0.65 % aerosol,spray 2 spray NA Q4H PRN (Reason: NASAL DRYNESS) oxymetazoline [Afrin (oxymetazoline)] 0.05 % [place],Non-Aerosol 2 spray INTRANASAL Q12H PRN (Reason: .NOSE BLEEDS) triamcinolone acetonide 0.1 % cream 1 applic TOPICAL BID Rx Instructions: APPLY TO GRANULATION TISSUE AROUND G-TUBE TWICE DAILY FOR ONE WEEK AT A TIME ONLY clotrimazole 1 % cream 1 applic TOPICAL BID Rx Instructions: APPLY TOPICALLY TO PEG SITE TWO TIMES A DAY. water for irrigation, sterile Solution 120 ml IRRIGATION 5XD Rx Instructions: into feeding tube Discontinued prednisone 20 mg tablet 20 mg feeding tube .UD PRN (Reason: .FLARES) Rx Instructions: RESCUE KIT : TAKE 3 TABS X THREE DAYS, 2 TABS X THREE DAYS, 1 TAB X THREE DAYS, 1/2 TAB X THREE DAYS VIA PEG TUBE. Discharge Orders: Discharge Order (Routine); Ordered 03/11/22 Ordered By: Chandan Whitney Admission Data Admit Date/Time: 03/07/22 21:05 Attending Provider: Chandan Whitney Admit Provider: Alonso Rodriguez Primary Care Provider: Prudencio Burns Other Providers: Alonso Rodriguez Other Interventions: Discharge Summary Assessment (RN) Last Done: 03/11/22 12:20
== END 2022-03-11 15:56 | disposition home health service (06) | DRG 871 ==
LOC: ED 18:39 → 2S 21:05

== ENCOUNTER 2022-03-14 19:01 | Inpatient (IN) ==
[2022-03-14] MEDS ORDERED: ALBUT/IPRATROP 3MG/0.5MG NEB 3 ML VIAL NEB STA ×2 (19:36→19:56)
[2022-03-14 19:49] LABS: Hematocrit (blood only) 40.9 % (42.0-52.0); Hemoglobin 12.4 g/dl (14.0-18.0); Mean Corpuscular Hemoglobin 30.1 pg (25.0-34.0); Mean Corpuscular Hgb Conc 30.3 g/dL (32.0-36.0); Mean Corpuscular Volume 99.3 fL (80.0-100.0); Mean Platelet Volume 10.4 fL (9.4-12.4); Platelet Count 280 K/uL (130-400); RDW Coefficient of Variation 14.5 % (11.5-14.5); RDW Standard Deviation 51.7 fL (36.4-46.3); Red Blood Count 4.12 M/uL (4.70-6.10); White Blood Count 26.46 K/ul (4.8-10.8)
[2022-03-14 19:53] LABS: Base Excess VBG 11.1 mEq/L; HCO3 VBG 41 mmol/L; Oxygen Saturation VBG < 60.0 %; PCO2 VBG 79 mmHg (38-50); PO2 VBG 26 mmHg; pH VBG 7.32 (7.36-7.41)
[2022-03-14] MEDS ORDERED: methylPREDNISolone 125 MG/2 ML VIAL IV STA (19:56)
--- NOTE | 2022-03-14 20:00 | Emergency Department Note ---
History of Present Illness General Chief Complaint: Respiratory Distress Stated Complaint: SHORTNES OF BREATH Time Seen by Provider: 03/14/22 19:15 History of Present Illness Provider Complaint: shortness of breath Onset (ago): day(s) (1) Severity: similar to previous episodes Consistency/Duration: + progressively worsening Maximum Pain Intensity: 6 Current Pain Intensity: 6 Relieved By: + nothing Known history of: COPD, congestive heart failure and aspiration pneumonia Home Medications Medication Instructions Recorded Confirmed Type atorvastatin 40 mg tablet 40 mg feeding tube QPM 09/18/18 03/07/22 History nitroglycerin 0.4 mg sublingual 0.4 mg sublingual UD PRN Chest Pain 09/18/18 03/07/22 History tablet albuterol sulfate 90 mcg/actuation 2 inh inhalation Q6H PRN shortness 05/06/20 03/07/22 Rx aerosol inhaler (ProAir HFA) of breath or wheezing #8.5 grams aspirin 81 mg chewable tablet 81 mg feeding tube QDL 02/19/21 03/07/22 History fluticasone fur. 100 mcg-umeclid 1 inh inhalation QAM 02/19/21 03/07/22 History 62.5 mcg-vilant 25 mcg inhalat.powder (Trelegy Ellipta) nutritional supplements 0.08 1 ea feeding tube QID 02/19/21 03/07/22 History gram-2 kcal/mL liquid for tube feed (Nutren 2.0) sodium chloride 0.65 % nasal spray 2 spray NA Q4H PRN NASAL DRYNESS 09/07/21 03/07/22 History aerosol (Saline Mist) clotrimazole 1 % topical cream 1 applic topical BID 12/28/21 03/07/22 History oxymetazoline 0.05 % nasal spray 2 spray intranasal Q12H PRN .NOSE 12/28/21 03/07/22 History (Afrin (oxymetazoline)) BLEEDS triamcinolone acetonide 0.1 % 1 applic topical BID 12/28/21 03/07/22 History topical cream water for irrigation, sterile 120 ml irrigation 5XD 03/07/22 03/07/22 History amoxicillin 250 mg-potassium 10 ml PO Q8H 5 days #150 mL 03/11/22 Rx clavulanate 62.5 mg/5 mL oral suspension doxycycline hyclate 100 mg tablet 100 mg PO Q12H 5 days #10 tabs 03/11/22 Rx ipratropium 0.5 mg-albuterol 3 mg 3 ml inhalation BID wheezing #90 mL 03/11/22 Rx (2.5 mg base)/3 mL nebulization soln sodium chloride 7 % for 4 ml NEB BIDR #120 mL 03/11/22 Rx nebulization Allergies Allergy/AdvReac Type Severity Reaction Status Date / Time No Known Allergies Allergy Verified 12/28/21 21:44 Past Med/Surg History Medical History Acute hypoxemic respiratory failure Acute on chronic diastolic heart failure Acute renal insufficiency CAD (coronary artery disease) Cardiac murmur CHILD FROM RHEUMATIC FEVER CHF (congestive heart failure) Chronic pulmonary aspiration CKD (chronic kidney disease) stage 3, GFR 30-59 ml/min Elevated lactic acid level Former tobacco use Hearing deficit BILAT History of [place] (myocardial infarction) 2017/ [facility] History of nasopharyngeal cancer s/p radiation, 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 Milton- TRACEE GRAYSWTERESITA/ NO STENTS History of cataract surgery History of colonoscopy with polypectomy 09/25/2018. Propofol given, no issues. History of coronary artery bypass graft One vessel - 2016 - [facility] History of heart valve replacement Bioprosthetic aortic valve - [facility] 2016 History of shoulder surgery RIGHT History of tonsillectomy History of tooth extraction History of vascular access device NO LONGER HAS PORT Hx of aortic valve replacement Status post insertion of percutaneous endoscopic gastrostomy (PEG) tube PLACED DUE TO PALATE SURGERY- THEN REMOVED 2014 Family History Father Cancer Liver Cancer Social History Smoking Status: Former smoker Tobacco Type: Cigarettes Second Hand Exposure: No; Hx Alcohol Use: No Hx Substance Use: No Preferred Language: [place] Communication Ability: Effective District Service Manager Required: No Beliefs That Will Affect Care: None marital status: / Current Living Situation: Alone How many Children do You have: 1 Feels Safe at Home: Yes Assistive Devices: Cane, Oxygen - Continuous and Walker Physical Exam Vital Signs: Vital Signs - 24 hr 03/14/22 19:00 03/14/22 19:00 03/14/22 19:10 Temperature 37 C Temperature Source Axillary Pulse Rate 118 H 110 H Pulse Rate from Sp O2 Sensor Respiratory Rate 42 H 24 Respiratory Effort / Characteristics Accessory Muscle U se Short of Breath Accessory Muscle U se Labored Short o f Breath Spontaneous Access ory Muscle Use Lab ored Short of Mary th Respiratory Depth Shallow Deep Respiratory Patter n Rapid/Shallow Tachypnea Blood Pressure 111/76 Blood Pressure Mayela n 87 Pulse Oximetry 84 L 97 Oxygen Delivery Me thod Non-rebreather Fraction of Inspir ed Oxygen 60 Sepsis Recent Feve r Within 48 Hours No Sepsis New/Unexpla ined Change in Men jose eduardo Status No Sepsis Action Take n by Nursing No Action Required 03/14/22 19:22 03/14/22 19:30 03/14/22 19:40 Temperature Temperature Source Pulse Rate 110 H 119 H 102 H Pulse Rate from Sp O2 Sensor 117 H 116 H 102 H Respiratory Rate 24 26 H 20 Respiratory Effort / Characteristics Respiratory Depth Respiratory Patter n Blood Pressure Blood Pressure Mayela n Pulse Oximetry 92 92 93 Oxygen Delivery Me thod Fraction of Inspir ed Oxygen Sepsis Recent Feve r Within 48 Hours Sepsis New/Unexpla ined Change in Men jose eduardo Status Sepsis Action Take n by Nursing 03/14/22 19:50 03/14/22 20:01 Temperature Temperature Source Pulse Rate 106 H 105 H Pulse Rate from Sp O2 Sensor 108 H Respiratory Rate 21 24 Respiratory Effort / Characteristics Respiratory Depth Respiratory Patter n Blood Pressure Blood Pressure Mayela n Pulse Oximetry 92 93 Oxygen Delivery Me thod Fraction of Inspir ed Oxygen 60 Sepsis Recent Feve r Within 48 Hours Sepsis New/Unexpla ined Change in Men jose eduardo Status Sepsis Action Take n by Nursing Physical Exam: Physical Exam GENERAL: Cachectic ill-appearing on BiPAP. HENT: Exam performed. - Head: Normocephalic and atraumatic. NECK: Normal range of motion. Neck supple. No JVD present. CV: Tachycardic rate, regular rhythm, normal heart sounds and intact distal pulses. There is no peripheral edema. Palpable radial pulses bue. PULM/CHEST: Tachypneic. Rhonchi bilaterally. Expiratory wheezes bilaterally. SKIN: Skin is warm and dry. He is not diaphoretic. Course Course 1914: The patient was evaluated in room B9. A complete history and physical exam was performed Cardiac monitoring: An order was placed for continuous cardiac monitoring. The monitor shows a rate of 110 with sinus tachycardia rhythm interpreted by me Patient was found to be hypoxic on nonrebreather quickly transitioned to BiPAP by nursing staff. External medical records reviewed. Patient was admitted from March 07, 2022 to March 11, 2022. Patient was discharged with Augmentin 500 mg 3 times daily and doxycycline twice daily for 5 days prednisone 40 mg for 3 days. 2129: Patient tolerating BiPAP well. Labs show leukocytosis of 26.46. Hemoglo bin 12.4. VBG shows venous pH of 7.32 with a venous PCO2 of 79. Sodium 131. Creatinine 1.53. Lactic acid 2.9. Troponin elevated 27.8. BNP elevated 117. Chest x-ray shows multifocal pneumonia. Patient treated with gentle hydration, IV vancomycin, IV cefepime. Patient was also treated with 2 duo nebs and Solu- Medrol. Patient will be admitted to the [facility] team. Dr. Holly notified Administered Medications Vancomycin HCl 1,500 mg/ (Sodium Chloride) 530 mls @ 200 mls/hr IV NOW ONE Stop: 03/14/22 23:06 Last Admin: 03/14/22 21:12 Dose: 200 mls/hr Documented By: MANDI Discontinued Medications Albuterol (Albut/Ipratrop 3mg/0.5mg Neb 3 Ml Vial) 3 ml NEB NOW STA; Protocol Stop: 03/14/22 19:37 Last Admin: 03/14/22 20:01 Dose: 3 ml Documented By: COLTON Albuterol (Albut/Ipratrop 3mg/0.5mg Neb 3 Ml Vial) 3 ml NEB NOW STA; Protocol Stop: 03/14/22 19:57 Last Admin: 03/14/22 20:01 Dose: Not Given Documented By: COLTON Methylprednisolone (Methylprednisolone 125 Mg/2 Ml Vial) 125 mg IV NOW STA Stop: 03/14/22 19:57 Last Admin: 03/14/22 20:30 Dose: 125 mg Documented By: MANDI Medical Decision Making Medical Records Attestation: I reviewed the patient's medical records. Laboratory Data Attestation: I reviewed the patient's lab results. 03/14/22 19:31 03/14/22 19:31 Lab Results 03/14/22 03/14/22 03/14/22 Range/Units 19:31 19:31 19:31 WBC 26.46 H (4.8-10.8) K/ul RBC 4.12 L (4.70-6.10) M/uL Hgb 12.4 L (14.0-18.0) g/dl Hct 40.9 L (42.0-52.0) % MCV 99.3 (80.0-100.0) fL MCH 30.1 (25.0-34.0) pg MCHC 30.3 L (32.0-36.0) g/dL RDW Std Deviation 51.7 H (36.4-46.3) fL RDW Coeff of Navid 14.5 (11.5-14.5) % Plt Count 280 (130-400) K/uL MPV 10.4 (9.4-12.4) fL Immature Gran % (Auto) 1.5 % Neut % (Auto) 91.4 % Lymph % (Auto) 2.1 % [place] % (Auto) 3.3 % Eos % (Auto) 1.4 % Baso % (Auto) 0.3 % Neut # (Auto) 24.17 H (1.40-6.50) K/uL Lymph # (Auto) 0.56 L (1.2-3.4) K/uL [place] # (Auto) 0.88 H (0.11-0.59) K/uL Eos # (Auto) 0.36 (0-0.50) K/uL Baso # (Auto) 0.08 (0-0.2) K/uL Immature Gran # (Auto) 0.41 H (0.01-0.20) K/uL Toxic Granulation 1+ Toxic Vacuolation 1+ PT 11.8 (9.0-12.0) Seconds INR 1.1 (0.9-1.1) APTT 26.2 (21.0-31.0) Seconds PTT Ratio 1.0 VBG pH (7.36-7.41) VBG pCO2 (38-50) mmHg VBG pO2 mmHg VBG HCO3 mmol/L VBG O2 Saturation % VBG Base Excess mEq/L Sodium 151 H (136-145) mmol/L Potassium 3.6 (3.5-5.1) mmol/L Chloride 106 (98-107) mmol/L Carbon Dioxide 40 H (21-32) mmol/L Anion Gap 5 (3-11) BUN 48 H (6-23) mg/dl Creatinine 1.53 H (0.6-1.4) mg/dl Est Cr Clr Drug Dosing 35.8 ml/min Est GFR ( Amer) 50.1 ml/min Est GFR (Non-Af Amer) 43.2 ml/min BUN/Creatinine Ratio 31.4 H (10-20) Glucose 89 (70-99(Fasting)) mg/dl Lactate (0.4-2.0) mmol/L Calcium 9.5 (8.5-10.1) mg/dl Magnesium 2.1 (1.7-2.4) mg/dl Total Bilirubin 0.5 (0.2-1.0) mg/dl Direct Bilirubin 0.1 (0-0.2) mg/dl AST 28 (13-39) U/L ALT 15 (7-52) U/L Alkaline Phosphatase 70 (34-104) U/L Troponin I High Sens 27.8 H (0-20) pg/ml B-Natriuretic Peptide (0-100) pg/ml Total Protein 6.6 (6.0-8.3) gm/dl Albumin 3.1 L (3.4-5.0) gm/dl Lipase 38 (11-82) U/L 03/14/22 03/14/22 03/14/22 Range/Units 19:31 19:31 19:32 WBC (4.8-10.8) K/ul RBC (4.70-6.10) M/uL Hgb (14.0-18.0) g/dl Hct (42.0-52.0) % MCV (80.0-100.0) fL MCH (25.0-34.0) pg MCHC (32.0-36.0) g/dL RDW Std Deviation (36.4-46.3) fL RDW Coeff of Nvaid (11.5-14.5) % Plt Count (130-400) K/uL MPV (9.4-12.4) fL Immature Gran % (Auto) % Neut % (Auto) % Lymph % (Auto) % [place] % (Auto) % Eos % (Auto) % Baso % (Auto) % Neut # (Auto) (1.40-6.50) K/uL Lymph # (Auto) (1.2-3.4) K/uL [place] # (Auto) (0.11-0.59) K/uL Eos # (Auto) (0-0.50) K/uL Baso # (Auto) (0-0.2) K/uL Immature Gran # (Auto) (0.01-0.20) K/uL Toxic Granulation Toxic Vacuolation PT (9.0-12.0) Seconds INR (0.9-1.1) APTT (21.0-31.0) Seconds PTT Ratio VBG pH 7.32 L (7.36-7.41) VBG pCO2 79 H (38-50) mmHg VBG pO2 26 mmHg VBG HCO3 41 mmol/L VBG O2 Saturation < 60.0 % VBG Base Excess 11.1 mEq/L Sodium (136-145) mmol/L Potassium (3.5-5.1) mmol/L Chloride (98-107) mmol/L Carbon Dioxide (21-32) mmol/L Anion Gap (3-11) BUN (6-23) mg/dl Creatinine (0.6-1.4) mg/dl Est Cr Clr Drug Dosing ml/min Est GFR ( Amer) ml/min Est GFR (Non-Af Amer) ml/min BUN/Creatinine Ratio (10-20) Glucose (70-99(Fasting)) mg/dl Lactate 2.9 H* (0.4-2.0) mmol/L Calcium (8.5-10.1) mg/dl Magnesium (1.7-2.4) mg/dl Total Bilirubin (0.2-1.0) mg/dl Direct Bilirubin (0-0.2) mg/dl AST (13-39) U/L ALT (7-52) U/L Alkaline Phosphatase (34-104) U/L Troponin I High Sens (0-20) pg/ml B-Natriuretic Peptide 117 H (0-100) pg/ml Total Protein (6.0-8.3) gm/dl Albumin (3.4-5.0) gm/dl Lipase (11-82) U/L Imaging Data Attestation: I personally reviewed and interpreted this imaging study as follows: My Impression: Chest x-ray: Bilateral infiltrates. Radiologist's Impression: Chest X-Ray 03/14/22 19:21 SINGLE VIEW CHEST CLINICAL HISTORY: Dyspnea. FINDINGS: An AP, portable, upright chest radiograph is compared to study dated 03/10/2022 and correlated with chest CT dated 09/07/2021. The examination is degraded by portable technique and patient rotation. The patient is status post midline sternotomy. The heart is top normal for projection noting atherosclerotic calcification of the thoracic aorta. Emphysema is similar to previous. Multifocal airspace opacities are seen throughout both lungs, likely representing an infectious/inflammatory pneumonitis. Scarring seen at the lung bases. No large pleural effusion or pneumothorax is identify. The skeletal struc tures are osteopenic. The bony thorax is grossly intact. IMPRESSION: 1. Multifocal airspace opacities seen throughout both lungs, likely representing an infectious/inflammatory pneumonitis. Clinical correlation will be required and radiographic follow-up to resolution is recommended. 2. Emphysema. ACT 112: Negative or not required by law. Electronically signed by: Keivn Manley M.D. 03/14/2022 8:17 PM ECG Data Attestation: I personally reviewed and interpreted this ECG as follows: Interpretation: Sinus tachycardia with rate of 121. OH 136 QRS [address] elevation or ST depression. Baseline wander due to patient's respiratory distress. [facility] Narrative 1915: The patient was evaluated in room B9. A complete history and physical exam was performed Cardiac monitoring: An order was placed for continuous cardiac monitoring. The monitor shows a rate of 110 with sinus tachycardia rhythm interpreted by me Patient was found to be hypoxic on nonrebreather quickly transitioned to BiPAP by nursing staff. External medical records reviewed. Patient was admitted from March 07, 2022 to March 11, 2022. Patient was discharged with Augmentin 500 mg 3 times daily and doxycycline twice daily for 5 days prednisone 40 mg for 3 days. 0: Patient tolerating BiPAP well. Labs show leukocytosis of 26.46. Hemoglob in 12.4. VBG shows venous pH of 7.32 with a venous PCO2 of 79. Sodium 131. Creatinine 1.53. Lactic acid 2.9. Troponin elevated 27.8. BNP elevated 117. Chest x-ray shows multifocal pneumonia. Patient treated with gentle hydration, IV vancomycin, IV cefepime. Patient was also treated with 2 duo nebs and Solu- Medrol. Patient will be admitted to the [facility] team. Dr. Holly notified Impression & Plan Multifocal pneumonia, Hypoxia Critical Care Time Critical Care Time: Yes Total Critical Care Time: 77 I have personally spent greater than 77 minutes of critical care time in the direct management of this patient. This includes bedside care, interpretation of diagnostic studies, and testing, discussion with consultants, patient, and family members, and other required patient management activities. This 77 minutes is in excess of all separately billable procedures. Discharge Plan Visit Data Chief Complaint: Respiratory Distress Stated Complaint: SHORTNES OF BREATH ED Provider: Travis Duenas Discharge Problem: Multifocal pneumonia, Hypoxia Patient Disposition: Admitted As Inpatient Forms Stand Alone Forms: My [facility] Prescriptions Prescriptions: No Action atorvastatin 40 mg Tablet 40 mg feeding tube QPM nitroglycerin 0.4 mg Tablet, Sublingual 0.4 mg sublingual UD PRN (Reason: Chest Pain) Rx Instructions: NEEDEDFOR CHEST PAIN : ONE TABLET UNDER THE TONGUE EVERY 5 MINUTES UP TO THREE DOSES. albuterol sulfate [ProAir HFA] 90 mcg/actuation HFA aerosol inhaler 2 inh inhalation Q6H PRN (Reason: shortness of breath or wheezing) Qty: 8.5 0RF aspirin 81 mg Tablet,Chewable 81 mg feeding tube QDL Nutren 2.0 0.08 gram-2 kcal/mL Liquid 1 ea feeding tube QID Rx Instructions: administer via gravity bag Trelegy Ellipta 100-62.5-25 mcg blister with device 1 inh INHALATION QAM Saline Mist 0.65 % aerosol,spray 2 spray NA Q4H PRN (Reason: NASAL DRYNESS) oxymetazoline [Afrin (oxymetazoline)] 0.05 % [place],Non-Aerosol 2 spray INTRANASAL Q12H PRN (Reason: .NOSE BLEEDS) triamcinolone acetonide 0.1 % cream 1 applic TOPICAL BID Rx Instructions: APPLY TO GRANULATION TISSUE AROUND G-TUBE TWICE DAILY FOR ONE WEEK AT A TIME ONLY clotrimazole 1 % cream 1 applic TOPICAL BID Rx Instructions: APPLY TOPICALLY TO PEG SITE TWO TIMES A DAY. water for irrigation, sterile Solution 120 ml IRRIGATION 5XD Rx Instructions: into feeding tube sodium chloride 7 % Solution For Nebulization 4 ml NEB BIDR Qty: 120 0RF amoxicillin-pot clavulanate 250-62.5 mg/5 mL suspension for reconstitution 10 ml PO Q8H 5 Days Qty: 150 0RF doxycycline hyclate 100 mg tablet 100 mg PO Q12H 5 Days Qty: 10 0RF ipratropium-albuterol 0.5 mg-3 mg(2.5 mg base)/3 mL solution for nebulization 3 ml inhalation BID Qty: 90 0RF Referrals Referrals: Prudencio Burns MD [Primary Care Provider] -
[2022-03-14 20:15] LABS: INR 1.1 (0.9-1.1); Partial Thromboplastin Time 26.2 Seconds (21.0-31.0); Prothrombin Time 11.8 Seconds (9.0-12.0)
--- NOTE | 2022-03-14 20:18 | XRay Report ---
SINGLE VIEW CHEST CLINICAL HISTORY: Dyspnea. FINDINGS: An AP, portable, upright chest radiograph is compared to study dated 03/10/2022 and correlate d with chest CT dated 09/07/2021. The examination is degraded by portable technique and patient rotatio n. The patient is status post midline sternotomy. The heart is top normal for projection noting athe rosclerotic calcification of the thoracic aorta. Emphysema is similar to previous. Multifocal airspac e opacities are seen throughout both lungs, likely representing an infectious/inflammatory pneumoniti s. Scarring seen at the lung bases. No large pleural effusion or pneumothorax is identify. The skelet al structures are osteopenic. The bony thorax is grossly intact. IMPRESSION: 1. Multifocal airspace opacities seen throughout both lungs, likely representing an infectious/inflam matory pneumonitis. Clinical correlation will be required and radiographic follow-up to resolution is recommended. 2. Emphysema. ACT 112: Negative or not required by law. Electronically signed by: Kevin Manley M.D. 03/14/2022 8:17 PM
[2022-03-14 20:27] LABS: Albumin Level 3.1 gm/dl (3.4-5.0); BUN Creatinine Ratio 31.4 (10-20); Bilirubin Direct 0.1 mg/dl (0-0.2); Bilirubin,Total 0.5 mg/dl (0.2-1.0); Calcium 9.5 mg/dl (8.5-10.1); Creatinine Clr Calc Pharmacy 35.8 ml/min; Est GFR (African American) 50.1 ml/min; Est GFR (Non-African American) 43.2 ml/min; Magnesium 2.1 mg/dl (1.7-2.4); Potassium 3.6 mmol/L (3.5-5.1); Total Protein 6.6 gm/dl (6.0-8.3)
[2022-03-14] MEDS ORDERED: CEFEPIME 2,000 MG/20 ML VIAL IV STA (20:28)
[2022-03-14] MEDS ORDERED: VANCOMYCIN HCL 1,500 MG in SODIUM CHLORIDE 0.9% 500 ML IV ONE (20:28)
[2022-03-14] MEDS ORDERED: VANCOMYCIN CONSULT ACTIVE PRN (20:28)
[2022-03-14 20:33] LABS: Troponin I High Sensitivity 27.8 pg/ml (0-20)
[2022-03-14] MEDS ORDERED: SODIUM CHLORIDE 0.9% 1000ML 1,000 ML IV SCH (20:45)
[2022-03-14 20:55] LABS: Basophils # (auto) 0.08 K/uL (0-0.2); Basophils % (auto) 0.3 %; Eosinophils # (auto) 0.36 K/uL (0-0.50); Eosinophils % (auto) 1.4 %; Immature Granulocytes # (auto) 0.41 K/uL (0.01-0.20); Immature Granulocytes % (auto) 1.5 %; Lymphocytes # (auto) 0.56 K/uL (1.2-3.4); Lymphocytes % (auto) 2.1 %; Monocytes # (auto) 0.88 K/uL (0.11-0.59); Monocytes % (auto) 3.3 %; Neutrophils # (auto) 24.17 K/uL (1.40-6.50); Neutrophils % (auto) 91.4 %; Toxic Granulation 1+; Toxic Vacuolation 1+
[2022-03-14] MEDS ORDERED: CLINDAMYCIN/D5W 600 MG/50 ML BAG IV ONE (22:10)
[2022-03-14] MEDS ORDERED: metroNIDAZOLE 500 MG/100 ML BAG IV STA (22:16)
[2022-03-14] MEDS ORDERED: CEFEPIME 2,000 MG/20 ML VIAL ONE (23:04)
[2022-03-15] MEDS ORDERED: WATER FOR IRRIGATION STERILE IR SCH (00:57)
[2022-03-15] MEDS ORDERED: IPRATROPIUM BROMIDE NEB SOLN 0.02% 2.5 ML VIAL INH PRN (00:57)
[2022-03-15] MEDS ORDERED: ALBUTEROL HFA 8 GM INHALER INH PRN (00:57)
[2022-03-15] MEDS ORDERED: LEVALBUTEROL 1.25MG/0.5ML NEB INH PRN (00:57)
[2022-03-15] MEDS ORDERED: NITROGLYCERIN SL 0.4 MG/TAB TAB SL PRN (00:57)
[2022-03-15] MEDS ORDERED: ONDANSETRON INJ 2 MG/ML 2 ML VIAL IV PRN (00:57)
[2022-03-15] MEDS ORDERED: XOPENEX/ATROVENT 1.25mg/0.5MG NEB COMBO NEB PRN (00:57)
--- NOTE | 2022-03-15 01:11 | History and Physical Report ---
DATE OF ADMISSION: 03/14/2022 CHIEF COMPLAINT: Respiratory distress and sepsis. HISTORY OF PRESENT ILLNESS: This is a 76-year-old male with past medical history significant for chronic respiratory failure with hypoxia and hypercapnia, on home oxygen 2-3 L, chronic diastolic CHF, EF of 55% on echo in 2020, chronic left bundle-branch block, CAD status post CABG, aortic stenosis, status post bioprosthetic aortic valve replacement, history of COPD, chronic pulmonary aspiration, status post PEG tube placement, hypertension, hyperlipidemia, nasopharyngeal cancer, status post chemoradiation, chronic anemia, hemoglobin baseline of 11-13, history of tobacco abuse, , chronic kidney disease stage III, sensorineural hearing loss both ears, status post PEG tube placement, who was recently in the hospital for acute hypoxic respiratory failure, aspiration pneumonia, COPD exacerbation, sepsis and JULES, treated with antibiotics, nebs, hypertonic saline with nebs and he was discharged on Augmentin and doxycycline for five more days and prednisone 40 mg for 3 more days, discharged on 03/11/2022 comes back with respiratory distress. The patient lives alone. Son lives 5 minutes away,son checks on him very frequently. As per son, he was doing okay until today morning and then in the afternoon, he seemed to be somewhat lethargic on the phone, he went and checked him, was having respiratory distress and he was brought in here. Initially he was on nonrebreather, his oxygen was in the 80s and with BiPAP his oxygen saturation improved. The patient had a lot of cough with thick sputum, . The patient currently speaks in low voices, seems alert and oriented. He has lot of cough and says also has a lot of diarrhea. Denies any chest pain. He has some back pain. He is not eating anything from the mouth and he gets everything from the feeding tube. Denies any chest pain, no headache, no blurred visions. He says he ambulates sometimes with cane.Currently somewhat agitated that we are not letting him go into the bathroom for bowel movement. In the ER, blood pressure dropped to 60s but on recheck its in 90s and he is getting 1 L fluid bolus. When he came in, his pulse was in the 120s, currently his heart rate improved to the 80s and 90s. The patient is afebrile. His white count is elevated at 26,000. Venous blood gas with pH 7.32. Sodium is 151, creatinine 1.5 and on 03/09/2022 was 0.9. Lactate is 2.9. Troponin I 27.8. BNP 117. COVID negative. Chest x-ray again showing multifocal pneumonia. ALLERGIES: No known drug allergies. PAST MEDICAL HISTORY: As mentioned above. PAST SURGICAL HISTORY: Alveoloplasty in 2013, colonoscopy, CABG in 2017, EGD, right shoulder reconstruction, tonsillectomy, cataract surgery, replacement of aortic valve with bioprosthetic valve in 2016, surgical removal of erupted tooth in 2013. MEDICATIONS: The patient was discharged on prednisone 40 mg p.o. daily for 3 days, sodium chloride 7% solution 4 mL neb mg b.i.d., Augmentin 10 mL p.o. q. 8 hours for 5 days, doxycycline 100 mg p.o. b.i.d. for 5 days, DuoNebs b.i.d., atorvastatin 40 mg via feeding tube, nitroglycerin 0.4 mg sublingual p.r.n., albuterol ProAir 2 inhalations q. 6 hours p.r.n., aspirin 81 mg via feeding tube, Nutren 2.0 via feeding tube q.i.d., Trelegy Ellipta one inhalation daily, saline nasal spray 2 sprays q. 4 hours p.r.n., Afrin p.r.n. nosebleeds, triamcinolone topical b.i.d., sterile water at 120 mL 5 times daily. FAMILY HISTORY: Significant for mother has arthritis, father has liver cancer. SOCIAL HISTORY: , currently lives alone. Son lives close by. Former smoker, smoked one pack a day for 50 years, seems to quit in 2013. No alcohol use. No drug use. REVIEW OF SYSTEMS: As per HPI. Could not get complete review of systems as the patient is speaking in low voice and is somewhat agitated, somewhat noncooperative at this time because we are not allowing him to go to bathroom. PHYSICAL EXAMINATION: GENERAL: The patient is alert and awake and seems oriented. VITAL SIGNS: Temperature 37, pulse currently in the 80s, respiratory rate 22, systolic BP in 90s, oxygen 98% on BiPAP. HEENT: Pupils equal, round and reactive to light. Oral mucosa dry and thick mucus seen NECK: No obvious neck masses seen. CARDIOVASCULAR: S1 and S2 heard. Regular rate and rhythm. No murmur, no gallop. RESPIRATORY SYSTEM: Normal AP diameter. No accessory muscle use. Diminished bilateral breath sounds. No obvious wheezing. ABDOMEN: Soft. Bowel sounds present. PEG tube site is slightly wet, no erythema seen, nontender. CENTRAL NERVOUS SYSTEM: Alert and awake, obeys simple commands. Moves extremities. EXTREMITIES: No edema, no erythema. LABORATORY DATA: WBC 26.4, hemoglobin 12.4, hematocrit 40.9, platelets 280. PT 11.8, INR 1.1, APTT 26.2. VBG: pCO2 29. Sodium 151, potassium 3.6, chloride 106, bicarbonate 40, BUN 48, creatinine 1.5, serum glucose 89. Lactate 2.9, calcium 9.5, magnesium 2.1, total bilirubin 0.5, direct bilirubin 0.1, AST 28, ALT 15, alkaline phosphatase 70. Troponin I high sensitivity 27.8. BNP 117, albumin 3.1, lipase 38. SARS-CoV-2 rapid test negative. IMAGING DATA: Chest x-ray, multifocal airspace opacities seen throughout both lungs, likely representing infectious, inflammatory pneumonitis, emphysema. EKG: Sinus tachycardia at a rate of 121. Some nonspecific T-wave abnormalities. ASSESSMENT AND PLAN: This is a 76-year-old male who presents with respiratory distress. 1. Respiratory distress,Acute on chronic respiratory failure, most likely secondary to chronic obstructive pulmonary disease exacerbation, multifocal pneumonia. Will continue the BiPAP for now. VBG looks okay. Nebs around the clock and p.r.n. IV Solu-Medrol 40 mg t.i.d., IV cefepime and IV vancomycin and iv flagyl for possible hospital acquired /aspiration pneumonia. Continue p.o. doxycycline on which Patient was discharged . Follow the sputum cultures and pulmonary toilet with flutter and hypertonic saline nebs and we will consider pulmonary consult if no improvement. Can do ct chest if no improvement for any mucus plugging or and to rule out any PE. 2. Sepsis from the above, was hypotensive, but improving. Continue with the fluids. Initial lactate was 2.9. We will follow the repeat lactic acid. Follow the cultures. Antibiotics as above. Placed on iv ns@150ml later changed to 100ml/hr. Closely monitor. 3. Hypernatremia, possibly from dehydration. The patient has feeding tube. The patient also seems to have some diarrhea. Sodium 151, will getting fluids. We will follow the repeat labs in the a.m. If worsening, we can consult nephrology. 4. Acute kidney injury on chronic kidney disease, stage III, creatinine 1.5, his creatinine was 0.9 on 03/09/2022, getting fluids. We will follow repeat labs in the a.m. 5. Mild elevation in troponin, most likely demand ischemia. We will follow serial cardiac enzymes. 6. Diarrhea. Recently had antibiotics, we will rule out Clostridium difficile, currently started on Flagyl, 7. History of nasopharyngeal cancer, status post chemotherapy and radiation, currently n.p.o. and s/p PEG tube. 8. Chronic diastolic congestive heart failure: Monitor for any volume overload. 9. Coronary artery disease, status post coronary artery bypass graft. Continue aspirin and statin. 10. Severe aortic stenosis , status post bioprosthetic aortic valve. 11. Moderate protein-calorie malnutrition. Dietitian consult. 12. History of anemia: Hemoglobin is stable at 12.4. 13. Deep venous thrombosis prophylaxis: Placed on Lovenox. DISPOSITION: Closely monitor in the tele floor. Level 1 full code as per my discussion with the son. PT/OT prior to discharge. Social service to help with discharge planning. Job ID: [id number] [facility]
[2022-03-15] MEDS: IPRATROPIUM BROMIDE NEB SOLN 0.02% 2.5 ML VIAL INH SCH ×5 (01:52→19:17)
[2022-03-15] MEDS: LEVALBUTEROL 1.25MG/0.5ML NEB INH SCH ×5 (01:52→19:18)
[2022-03-15] MEDS: SODIUM CHLORIDE 0.9% 1000ML 1,000 ML IV SCH ×3 (02:10→19:49)
[2022-03-15] MEDS: methylPREDNISolone 40 MG in SYRINGE 0 ML IV SCH ×3 (04:25→19:51)
[2022-03-15 06:12] LABS: Hematocrit (blood only) 36.9 % (42.0-52.0); Hemoglobin 11.2 g/dl (14.0-18.0); Mean Corpuscular Hemoglobin 30.5 pg (25.0-34.0); Mean Corpuscular Hgb Conc 30.4 g/dL (32.0-36.0); Mean Corpuscular Volume 100.5 fL (80.0-100.0); Mean Platelet Volume 10.3 fL (9.4-12.4); Platelet Count 199 K/uL (130-400); RDW Coefficient of Variation 14.4 % (11.5-14.5); RDW Standard Deviation 53.3 fL (36.4-46.3); Red Blood Count 3.67 M/uL (4.70-6.10); White Blood Count 24.26 K/ul (4.8-10.8)
[2022-03-15 06:36] LABS: Basophils # (auto) 0.07 K/uL (0-0.2); Basophils % (auto) 0.3 %; Immature Granulocytes # (auto) 0.15 K/uL (0.01-0.20); Immature Granulocytes % (auto) 0.6 %; Lymphocytes # (auto) 0.43 K/uL (1.2-3.4); Lymphocytes % (auto) 1.8 %; Monocytes # (auto) 0.38 K/uL (0.11-0.59); Monocytes % (auto) 1.6 %; Neutrophils # (auto) 23.23 K/uL (1.40-6.50); Neutrophils % (auto) 95.7 %; Polychromasia 1+
[2022-03-15] MEDS: metroNIDAZOLE 500 MG/100 ML BAG IV SCH ×3 (06:53→22:03)
[2022-03-15] MEDS: SODIUM CHLOR 7% 4 ML NEB NEB SCH ×2 (07:08→19:18)
[2022-03-15 07:51] LABS: BUN Creatinine Ratio 33.8 (10-20); Calcium 8.9 mg/dl (8.5-10.1); Creatinine Clr Calc Pharmacy 34.3 ml/min; Est GFR (African American) 53.5 ml/min; Est GFR (Non-African American) 46.1 ml/min; Magnesium 2.1 mg/dl (1.7-2.4); Potassium 4.5 mmol/L (3.5-5.1); Troponin I High Sensitivity 22.4 pg/ml (0-20)
--- NOTE | 2022-03-15 07:59 | Pharmacy Report ---
Pharmacy PK ABX Note - Date of Service March 15, 2022 - Assessment and Plan Assessment 76 year old M receiving vancomycin, cefepime, and metronidazole for treatment of multifocal pneumonia. Blood cultures pending, MRSA nasal pending. Pt with JULES on admission (SCr 1.53 --> 1.45). Day #2 of antimicrobial therapy. Plan Vancomycin * Loading dose: 1500 mg IV x 1 * Maintenance dose: 750 mg IV every 24 hours * Regimen is predicted to achieve target AUC/LUIS of 400-600 mg/L.hr * Will obtain a level around steady state, or sooner if clinically indicated. Pharmacy will continue to follow and will adjust dose/frequency as necessary. Thank you. Pharmacy has transitioned to AUC monitoring for vancomycin. AUC/LUIS is the preferred PK/PD target and is associated with decreased risk of nephrotoxicity compared to traditional trough targets.
[2022-03-15] MEDS ORDERED: [UNRECOGNIZED DRUG - OTHER] feeding tube SCH (09:00)
[2022-03-15] MEDS ORDERED: NUTRITIONAL SUPPLEMENTS feeding tube SCH (09:00)
[2022-03-15] MEDS ORDERED: XOPENEX/ATROVENT 1.25mg/0.5MG NEB COMBO NEB SCH (09:00)
[2022-03-15] MEDS ORDERED: DOXYCYCLINE HYCLATE 100 MG CAP PO SCH (09:00)
[2022-03-15] MEDS: VANCOMYCIN HCL 750 MG in SODIUM CHLORIDE 0.9% 250 ML IV SCH (09:28)
[2022-03-15] MEDS: CLOTRIMAZOLE 1% CR 15 GM TUBE TOP SCH ×2 (09:34→22:03)
[2022-03-15] MEDS: ENOXAPARIN INJ 40 MG/0.4 ML SYR SQ SCH (09:35)
[2022-03-15] MEDS: UMECLIDINIUM/VILANTEROL 62.5/25MCG 7 PUFFS/INHALER INH SCH (09:35)
[2022-03-15] MEDS: FLUTICASONE FUROATE 100MCG 14 PUFFS/INHALER INH SCH (09:35)
--- NOTE | 2022-03-15 09:46 | Electrocardiogram Report ---
Test Reason : Blood Pressure : / mmHG Vent. Rate : 121 BPM Atrial Rate : 121 BPM P-R Int : 136 ms QRS Dur : 074 ms QT Int : 300 ms P-R-T Axes : 062 059 -01 degrees QTc Int : 426 ms Sinus tachycardia Diffuse Minor Nonspecific ST and T wave abnormality Abnormal ECG When compared with ECG of 07-MAR-2022 19:03, QRS duration has decreased Confirmed by Ovidio Zimmerman ([id number]) on 03/15/2022 9:46:23 AM Referred By: REFERRED SELF Confirmed By:Ovidio Zimmerman
[2022-03-15] MEDS: CEFEPIME 2,000 MG in SYRINGE 0 ML IV SCH (12:38)
[2022-03-15] MEDS: ASPIRIN 81 MG CHEW PEG SCH (12:40)
[2022-03-15] MEDS: ENTERAL FEEDING PEG SCH ×3 (13:37→20:00)
[2022-03-15] MEDS: TUBE FEEDING WATER FLUSH PEG SCH ×3 (13:39→20:01)
[2022-03-15] MEDS: DOXYCYCLINE HYCLATE 100 MG in DEXTROSE 5% 100 ML IV SCH (14:50)
--- NOTE | 2022-03-15 14:53 | Hospitalist Progress Note ---
Date of Service March 15, 2022 Assessment & Plan (1) Multifocal pneumonia: Plan: Recent hospital admission with acute hypoxic respiratory failure, aspiration pneumonia, COPD exacerbation, sepsis and JULES on 03/11/2022 History of chronic aspiration Back into the hospital last night with increasing shortness of breath and noted to be sepsis secondary to multifocal pneumonia likely due to aspiration Has been on intravenous cefepime, vancomycin and doxycycline Blood cultures are pending He has been feeling a little bit better (2) COPD exacerbation: Plan: As above and has been on nebulized bronchodilator Has been on methylprednisone IV every 8 hourly 40 mg (3) Respiratory failure: Plan: #Acute on chronic respiratory failure with hypoxemia (4) Aspiration pneumonia: Plan: History of nasopharyngeal cancer status post chemoradiation Status post PEG tube Has been having aspiration frequently He has not been eating or taking anything orally We will have aspiration precaution (5) CAD (coronary artery disease): Plan: No cardiac symptom (6) Hx of aortic valve replacement: Plan: Status post aortic valve replacement (7) History of nasopharyngeal cancer: (8) Hypertension: (9) JULES (acute kidney injury): Plan: Has chronic kidney disease and coming in with dehydration and JULES We will monitor. Moderate protein calorie malnutrition Nutrition consult Chronic diastolic congestive heart failure No signs and symptoms of fluid overload We will monitor DVT prophylaxis Lovenox subcu CODE STATUS Full Admission and Anticipated Discharge Date Admission Date: March 14, 2022 Subjective 03/15/2022 The patient was seen and examined in telemetry unit He has been feeling a little better but he still has moderate shortness of breath at rest Requiring 4 L of oxygen to maintain saturation Has cough without any chest pain and or palpitation No abdominal pain nausea and or vomiting Review of Systems Review of Systems: All systems reviewed and are unremarkable except as noted below Physical Exam Physical Exam: Sitting at the edge of the bed with moderate shortness of breath Constitutional: + ill appearing and average body habitus Eyes: PERRL, conjunctivae normal, anicteric sclerae ENMT: external ear and nose normal, oropharynx normal Neck: trachea midline, no thyromegaly Respiratory: + respiratory distress and + labored breathing Auscultation: + diminished lung sounds and + crackles (Coarse crackles bilaterally) Cardiovascular: Rate/Rhythm: regular rate and regular rhythm; not tachycardic Heart Sounds: normal S1 and normal S2; no murmur Extremities: no edema Gastrointestinal (Abdomen): Inspection/Auscultation: normal bowel sounds; abdomen not distended Percussion/Palpation: abdomen soft; abdomen nontender PEG tube is in place Musculoskeletal: No acute arthritis involving any joint Neurologic: Alert, awake and oriented x3. Generally weak but no focal sensory or motor deficit appreciated Lymphatic: no cervical or axillary lymphadenopathy Results & Data Results & Data ([facility]) Vital Signs (Past 12 Hours) Vital Signs Temp Pulse Pulse Resp BP Pulse Ox O2 Del Method 03/15/22 08:00 Oxymask 03/15/22 14:31 78 20 93 Oxymask 03/15/22 11:23 36.5 C 77 20 120/76 99 Oxymask 03/15/22 11:02 70 18 98 Oxymask 03/15/22 07:53 36.4 C L 71 18 122/74 Nebulizer 03/15/22 07:15 74 18 92 Nasal Cannula 03/15/22 04:27 36.4 C L 76 18 148/70 H 97 Oxymask 03/15/22 03:45 80 O2 Flow Rate 03/15/22 08:00 6 03/15/22 14:31 4 03/15/22 11:23 6 03/15/22 11:02 6 03/15/22 07:53 03/15/22 07:15 6 03/15/22 04:27 6 03/15/22 03:45 Laboratory Results Short CBC 03/14/22 03/15/22 Range/Units 19:31 05:19 WBC 26.46 H 24.26 H (4.8-10.8) K/ul Hgb 12.4 L 11.2 L (14.0-18.0) g/dl Hct 40.9 L 36.9 L (42.0-52.0) % Plt Count 280 199 (130-400) K/uL BMP 03/14/22 03/15/22 19:31 05:19 Sodium 151 H 150 H Potassium 3.6 4.5 D Chloride 106 111 H Carbon Dioxide 40 H 36 H BUN 48 H 49 H Creatinine 1.53 H 1.45 H Glucose 89 134 H Calcium 9.5 8.9 Liver Function 03/14/22 Range/Units 19:31 Total Bilirubin 0.5 (0.2-1.0) mg/dl Direct Bilirubin 0.1 (0-0.2) mg/dl AST 28 (13-39) U/L ALT 15 (7-52) U/L Alkaline Phosphatase 70 (34-104) U/L Albumin 3.1 L (3.4-5.0) gm/dl Medications Administered Current Inpatient Medications Albuterol (Albuterol Hfa 8 Gm Inhaler) 2 puffs INH Q6H PRN PRN Reason: shortness of breath or wheezin Stop: 04/14/22 00:56 Aspirin (Aspirin 81 Mg Chew) 81 mg PEG QDL ROYA Stop: 04/14/22 11:29 Last Admin: 03/15/22 12:40 Dose: 81 mg Atorvastatin Calcium (Atorvastatin 40 Mg Tab) 40 mg PEG QPM [facility] Stop: 04/14/22 20:59 Clotrimazole (Clotrimazole 1% Cr 15 Gm Tube) 1 appln TOP BID [facility] Stop: 04/14/22 08:59 Last Admin: 03/15/22 09:34 Dose: 1 appln Enoxaparin Sodium (Enoxaparin Inj 40 Mg/0.4 Ml Syr) 40 mg SQ Q24H [facility] Stop: 04/14/22 08:59 Last Admin: 03/15/22 09:35 Dose: 40 mg Fluticasone Furoate (Fluticasone Furoate 100mcg 14 Puffs/Inhaler) 1 puffs INH QAM [facility] Stop: 04/14/22 08:59 Last Admin: 03/15/22 09:35 Dose: 1 puffs Sodium Chloride (Nss 1000ml) 1,000 mls @ 100 mls/hr IV .Q10H [facility] Stop: 04/14/22 00:56 Last Admin: 03/15/22 09:28 Dose: 150 mls/hr Cefepime HCl 2,000 mg/ Syringe 20 mls @ 5 mls/min IV Q12H [facility]; Protocol Stop: 03/22/22 11:59 Last Admin: 03/15/22 12:38 Dose: 5 mls/min Metronidazole (Flagyl) 500 mg in 100 mls @ 100 mls/hr IV Q8H [facility] Stop: 03/22/22 06:59 Last Infusion: 03/15/22 09:36 Dose: Infused Methylprednisolone 40 mg/ (Syringe) 0.64 mls @ 1.5 mls/min IV Q8H [facility] Stop: 04/14/22 03:59 Last Admin: 03/15/22 12:40 Dose: 1.5 mls/min Vancomycin HCl 750 mg/ Sodium (Chloride) 265 mls @ 200 mls/hr IV Q24H [facility]; Protocol Stop: 03/22/22 07:59 Last Infusion: 03/15/22 10:53 Dose: Infused Doxycycline Hyclate 100 mg/ (Dextrose) 110 mls @ 50 mls/hr IV Q12H [facility] Stop: 03/22/22 13:59 Last Admin: 03/15/22 14:50 Dose: 50 mls/hr Ipratropium [place] (Ipratropium [place] Neb Soln 0.02% 2.5 Ml Vial) 0.5 mg INH QIDR [facility] Stop: 04/14/22 00:56 Last Admin: 03/15/22 14:30 Dose: 0.5 mg Ipratropium [place] (Ipratropium [place] Neb Soln 0.02% 2.5 Ml Vial) 0.5 mg INH Q4H PRN PRN Reason: SOB/WHEEZING Stop: 04/14/22 00:56 Levalbuterol HCl (Levalbuterol 1.25mg/0.5ml Neb) 1.25 mg INH QIDR [facility] Stop: 04/14/22 00:56 Last Admin: 03/15/22 14:31 Dose: 1.25 mg Levalbuterol HCl (Levalbuterol 1.25mg/0.5ml Neb) 1.25 mg INH Q4H PRN PRN Reason: SOB/WHEEZING Stop: 04/14/22 00:56 Miscellaneous Information (Vancomycin Consult Active) 1 each N/A UD PRN PRN Reason: Consult Stop: 04/13/22 20:27 Nitroglycerin (Nitroglycerin Sl 0.4 Mg/Tab Tab) 0.4 mg SL UD PRN PRN Reason: Chest Pain Stop: 04/14/22 00:56 Nutritional Formula (Patient's Own Enteral Feeding [Nutren 2.0]) 250 ml PEG QID@0800,1200,1600,2000 [facility] Stop: 04/14/22 12:09 Last Admin: 03/15/22 13:37 Dose: 250 ml Ondansetron HCl (Ondansetron Inj 2 Mg/Ml 2 Ml Vial) 4 mg IV Q6H PRN PRN Reason: Nausea Stop: 04/14/22 00:56 Sodium Chloride (Sodium Chlor 7% 4 Ml Neb) 4 ml NEB BIDR [facility] Stop: 04/14/22 06:59 Last Admin: 03/15/22 07:08 Dose: 4 ml Sterile Water (Tube Feeding Water Flush) 100 ml PEG DAILY@0800,1200,1600,2000 [facility] Stop: 04/14/22 12:14 Last Admin: 03/15/22 13:39 Dose: 100 ml Umeclidinium/Vilanterol (Umeclidinium/Vilanterol 62.5/25mcg 7 Puffs/Inhaler) 1 puffs INH DAILY [facility] Stop: 04/14/22 08:59 Last Admin: 03/15/22 09:35 Dose: 1 puffs (1) Respiratory failure Chronicity: acute on chronic Respiratory failure complication: hypoxia Qualified Code(s): J96.21 - Acute and chronic respiratory failure with hypoxia (2) Aspiration pneumonia Aspiration pneumonia type: unspecified Laterality: right Lung location: lower lobe of lung Qualified Code(s): J69.0 - Pneumonitis due to inhalation of food and vomit
[2022-03-15] MEDS: ATORVASTATIN 40 MG TAB PEG SCH (22:02)
[2022-03-16] MEDS: DOXYCYCLINE HYCLATE 100 MG in DEXTROSE 5% 100 ML IV SCH ×2 (01:00→14:26)
[2022-03-16] MEDS: CEFEPIME 2,000 MG in SYRINGE 0 ML IV SCH ×2 (01:00→12:19)
[2022-03-16] MEDS: methylPREDNISolone 40 MG in SYRINGE 0 ML IV SCH ×3 (05:08→22:12)
[2022-03-16] MEDS: metroNIDAZOLE 500 MG/100 ML BAG IV SCH ×3 (06:29→23:28)
[2022-03-16 06:41] LABS: Hematocrit (blood only) 35.9 % (42.0-52.0); Hemoglobin 10.9 g/dl (14.0-18.0); Mean Corpuscular Hgb Conc 30.4 g/dL (32.0-36.0); Mean Corpuscular Volume 98.9 fL (80.0-100.0); Mean Platelet Volume 10.6 fL (9.4-12.4); Platelet Count 197 K/uL (130-400); RDW Coefficient of Variation 14.2 % (11.5-14.5); RDW Standard Deviation 50.6 fL (36.4-46.3); Red Blood Count 3.63 M/uL (4.70-6.10); White Blood Count 22.06 K/ul (4.8-10.8)
[2022-03-16] MEDS: IPRATROPIUM BROMIDE NEB SOLN 0.02% 2.5 ML VIAL INH SCH ×4 (07:01→19:07)
[2022-03-16] MEDS: LEVALBUTEROL 1.25MG/0.5ML NEB INH SCH ×4 (07:01→19:07)
[2022-03-16] MEDS: SODIUM CHLOR 7% 4 ML NEB NEB SCH ×2 (07:01→19:06)
[2022-03-16 07:05] LABS: Basophils # (auto) 0.04 K/uL (0-0.2); Basophils % (auto) 0.2 %; Immature Granulocytes # (auto) 0.48 K/uL (0.01-0.20); Immature Granulocytes % (auto) 2.2 %; Lymphocytes % (auto) 1.8 %; Monocytes # (auto) 0.39 K/uL (0.11-0.59); Monocytes % (auto) 1.8 %; Neutrophils # (auto) 20.75 K/uL (1.40-6.50); Polychromasia 1+
[2022-03-16] MEDS: SODIUM CHLORIDE 0.9% 1000ML 1,000 ML IV SCH (07:06)
[2022-03-16 07:15] LABS: BUN Creatinine Ratio 41.4 (10-20); Calcium 8.8 mg/dl (8.5-10.1); Creatinine Clr Calc Pharmacy 50.2 ml/min; Est GFR (African American) 84.8 ml/min; Est GFR (Non-African American) 73.2 ml/min; Phosphorus 2.6 mg/dl (2.5-4.9)
[2022-03-16] MEDS: ENTERAL FEEDING PEG SCH ×4 (07:57→21:48)
[2022-03-16] MEDS: TUBE FEEDING WATER FLUSH PEG SCH ×4 (07:57→21:48)
[2022-03-16] MEDS: VANCOMYCIN HCL 750 MG in SODIUM CHLORIDE 0.9% 250 ML IV SCH (07:57)
[2022-03-16] MEDS: FLUTICASONE FUROATE 100MCG 14 PUFFS/INHALER INH SCH (08:07)
[2022-03-16] MEDS: CLOTRIMAZOLE 1% CR 15 GM TUBE TOP SCH ×2 (08:07→22:11)
[2022-03-16] MEDS: UMECLIDINIUM/VILANTEROL 62.5/25MCG 7 PUFFS/INHALER INH SCH (08:07)
[2022-03-16] MEDS: ENOXAPARIN INJ 40 MG/0.4 ML SYR SQ SCH (08:07)
[2022-03-16] MEDS: ASPIRIN 81 MG CHEW PEG SCH (12:19)
--- NOTE | 2022-03-16 13:36 | Hospitalist Progress Note ---
Date of Service March 16, 2022 Assessment & Plan (1) Multifocal pneumonia: Plan: Recent hospital admission with acute hypoxic respiratory failure, aspiration pneumonia, COPD exacerbation, sepsis and JULES on 03/11/2022 History of chronic aspiration Back into the hospital last night with increasing shortness of breath and noted to be sepsis secondary to multifocal pneumonia likely due to aspiration Has been on intravenous cefepime, vancomycin and doxycycline Blood cultures negative MRSA screen is negative and vancomycin has been discontinued Clinically a little better and will continue current cefepime and doxycycline We will get PT and OT evaluation prior to discharge Hyponatremia Sodium is noted to be 151 today Normal saline infusion has been discontinued Will increase free fluid intake through the G-tube Repeat PRP tomorrow (2) COPD exacerbation: Plan: As above and has been on nebulized bronchodilator Has been on methylprednisone IV every 8 hourly 40 mg We will change methylprednisone to every 8 hourly (3) Respiratory failure: Plan: #Acute on chronic respiratory failure with hypoxemia (4) Aspiration pneumonia: Plan: 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 Moderate protein calorie malnutrition Nutrition consult Chronic diastolic congestive heart failure No signs and symptoms of fluid overload We will monitor DVT prophylaxis Lovenox subcu CODE STATUS Full Admission and Anticipated Discharge Date Admission Date: March 14, 2022 Subjective 03/15/2022 The patient was seen and examined in telemetry unit He has been feeling a little better but he still has moderate shortness of breath at rest Requiring 4 L of oxygen to maintain saturation Has cough without any chest pain and or palpitation No abdominal pain nausea and or vomiting 03/16/2022 The patient was seen and examined in telemetry unit He feels a little better but he still has moderate to severe shortness of breath at rest No fever and no chills Has been requiring 2 L of oxygen to maintain saturation Review of Systems Review of Systems: All systems reviewed and are unremarkable except as noted below Physical Exam Physical Exam: Sitting at the edge of the bed with moderate shortness of breath Constitutional: + ill appearing and average body habitus Eyes: PERRL, conjunctivae normal, anicteric sclerae ENMT: external ear and nose normal, oropharynx normal Neck: trachea midline, no thyromegaly Respiratory: + respiratory distress and + labored breathing Auscultation: + diminished lung sounds and + crackles (Coarse crackles bilaterally) Cardiovascular: Rate/Rhythm: regular rate and regular rhythm; not tachycardic Heart Sounds: normal S1 and normal S2; no murmur Extremities: no edema Gastrointestinal (Abdomen): Inspection/Auscultation: normal bowel sounds; abdomen not distended Percussion/Palpation: abdomen soft; abdomen nontender Musculoskeletal: No acute arthritis involving any joint Neurologic: Alert, awake and oriented x3. Generally weak but no focal sensory or motor deficit appreciated Lymphatic: no cervical or axillary lymphadenopathy Results & Data Results & Data ([facility]) Vital Signs (Past 12 Hours) Vital Signs Temp Pulse Resp BP Pulse Ox O2 Del Method O2 Flow Rate 03/16/22 11:19 36.5 C 79 17 118/75 93 Oxymask 2 03/16/22 11:04 74 18 90 Oxymask 2 03/16/22 08:00 Oxymask 2 03/16/22 07:30 36.4 C L 76 20 160/75 H 99 Oxymask 2 03/16/22 07:01 84 18 97 Oxymask 3 03/16/22 03:56 36.4 C L 74 16 158/89 H 93 Oxymask 3 Laboratory Results Short CBC 03/16/22 Range/Units 06:21 WBC 22.06 H (4.8-10.8) K/ul Hgb 10.9 L (14.0-18.0) g/dl Hct 35.9 L (42.0-52.0) % Plt Count 197 (130-400) K/uL BMP 03/16/22 06:21 Sodium 151 H Potassium 4.0 Chloride 115 H Carbon Dioxide 32 BUN 41 H Creatinine 0.99 D Glucose 118 H Calcium 8.8 Medications Administered Current Inpatient Medications Albuterol (Albuterol Hfa 8 Gm Inhaler) 2 puffs INH Q6H PRN PRN Reason: shortness of breath or wheezin Stop: 04/14/22 00:56 Aspirin (Aspirin 81 Mg Chew) 81 mg PEG QDL [facility] Stop: 04/14/22 11:29 Last Admin: 03/16/22 12:19 Dose: 81 mg Atorvastatin Calcium (Atorvastatin 40 Mg Tab) 40 mg PEG QPM [facility] Stop: 04/14/22 20:59 Last Admin: 03/15/22 22:02 Dose: 40 mg Clotrimazole (Clotrimazole 1% Cr 15 Gm Tube) 1 appln TOP BID [facility] Stop: 04/14/22 08:59 Last Admin: 03/16/22 08:07 Dose: 1 appln Enoxaparin Sodium (Enoxaparin Inj 40 Mg/0.4 Ml Syr) 40 mg SQ Q24H COUNTS INCLUDE 234 BEDS AT THE [facility] Stop: 04/14/22 08:59 Last Admin: 03/16/22 08:07 Dose: 40 mg Fluticasone Furoate (Fluticasone Furoate 100mcg 14 Puffs/Inhaler) 1 puffs INH QAM COUNTS INCLUDE 234 BEDS AT THE [facility] Stop: 04/14/22 08:59 Last Admin: 03/16/22 08:07 Dose: 1 puffs Cefepime HCl 2,000 mg/ Syringe 20 mls @ 5 mls/min IV Q12H COUNTS INCLUDE 234 BEDS AT THE [facility]; Protocol Stop: 03/22/22 11:59 Last Admin: 03/16/22 12:19 Dose: 5 mls/min Metronidazole (Flagyl) 500 mg in 100 mls @ 100 mls/hr IV Q8H COUNTS INCLUDE 234 BEDS AT THE [facility] Stop: 03/22/22 06:59 Last Infusion: 03/16/22 08:19 Dose: Infused Methylprednisolone 40 mg/ (Syringe) 0.64 mls @ 1.5 mls/min IV Q8H COUNTS INCLUDE 234 BEDS AT THE [facility] Stop: 04/14/22 03:59 Last Admin: 03/16/22 12:19 Dose: 1.5 mls/min Doxycycline Hyclate 100 mg/ (Dextrose) 110 mls @ 50 mls/hr IV Q12H COUNTS INCLUDE 234 BEDS AT THE [facility] Stop: 03/22/22 13:59 Last Infusion: 03/16/22 03:12 Dose: Infused Ipratropium [place] (Ipratropium [place] Neb Soln 0.02% 2.5 Ml Vial) 0.5 mg INH QIDR COUNTS INCLUDE 234 BEDS AT THE [facility] Stop: 04/14/22 00:56 Last Admin: 03/16/22 11:04 Dose: 0.5 mg Ipratropium [place] (Ipratropium [place] Neb Soln 0.02% 2.5 Ml Vial) 0.5 mg INH Q4H PRN PRN Reason: SOB/WHEEZING Stop: 04/14/22 00:56 Levalbuterol HCl (Levalbuterol 1.25mg/0.5ml Neb) 1.25 mg INH QIDR [facility] Stop: 04/14/22 00:56 Last Admin: 03/16/22 11:04 Dose: 1.25 mg Levalbuterol HCl (Levalbuterol 1.25mg/0.5ml Neb) 1.25 mg INH Q4H PRN PRN Reason: SOB/WHEEZING Stop: 04/14/22 00:56 Nitroglycerin (Nitroglycerin Sl 0.4 Mg/Tab Tab) 0.4 mg SL UD PRN PRN Reason: Chest Pain Stop: 04/14/22 00:56 Nutritional Formula (Patient's Own Enteral Feeding [Nutren 2.0]) 250 ml PEG QID@0800,1200,1600,2000 COUNTS INCLUDE 234 BEDS AT THE [facility] Stop: 04/14/22 12:09 Last Admin: 03/16/22 12:19 Dose: 250 ml Ondansetron HCl (Ondansetron Inj 2 Mg/Ml 2 Ml Vial) 4 mg IV Q6H PRN PRN Reason: Nausea Stop: 04/14/22 00:56 Sodium Chloride (Sodium Chlor 7% 4 Ml Neb) 4 ml NEB BIDR COUNTS INCLUDE 234 BEDS AT THE [facility] Stop: 04/14/22 06:59 Last Admin: 03/16/22 07:01 Dose: 4 ml Sterile Water (Tube Feeding Water Flush) 100 ml PEG DAILY@0800,1200,1600,2000 COUNTS INCLUDE 234 BEDS AT THE [facility] Stop: 04/14/22 12:14 Last Admin: 03/16/22 12:19 Dose: 100 ml Umeclidinium/Vilanterol (Umeclidinium/Vilanterol 62.5/25mcg 7 Puffs/Inhaler) 1 puffs INH DAILY COUNTS INCLUDE 234 BEDS AT THE [facility] Stop: 04/14/22 08:59 Last Admin: 03/16/22 08:07 Dose: 1 puffs (1) Respiratory failure Chronicity: acute on chronic Respiratory failure complication: hypoxia Qualified Code(s): J96.21 - Acute and chronic respiratory failure with hypoxia (2) Aspiration pneumonia Aspiration pneumonia type: unspecified Laterality: right Lung location: lower lobe of lung Qualified Code(s): J69.0 - Pneumonitis due to inhalation of food and vomit
[2022-03-16] MEDS: ATORVASTATIN 40 MG TAB PEG SCH (22:12)
[2022-03-16 22:46] LABS: A calco-baum cmplx NotReported Not Detected (NotDetected); Bact fragilis Not Reported Not Detected (NotDetected); C auris Not Reported Not Detected (NotDetected); Calbicans Not Reported Not Detected (NotDetected); Candida glabrata Not Reported Not Detected (NotDetected); Candida krusei Not Reported Not Detected (NotDetected); Cneoformans/gatti Not Reported Not Detected (NotDetected); Cparapsilosis Not Reported Not Detected (NotDetected); Ctropicalis Not Reported Not Detected (NotDetected); E cloacae compx Not Reported Not Detected (NotDetected); Efaecalis Not Reported Not Detected (NotDetected); Efaecium Not Reported Not Detected (NotDetected); Enterobacterales Not Reported Not Detected (NotDetected); Escherichia coli Not Reported Not Detected (NotDetected); H influenzae Not Reported Not Detected (NotDetected); K aerogenes Not Reported Not Detected (NotDetected); Koxytoca Not Reported Not Detected (NotDetected); Kpneumoniae grp Not Reported Not Detected (NotDetected); Lmonocyt Not Reported Not Detected (NotDetected); N meningitidis Not Reported Not Detected (NotDetected); P aeruginosa Not Reported Not Detected (NotDetected); Proteus spp Not Reported Not Detected (NotDetected); Salmonella spp Not Reported Not Detected (NotDetected); Smarcescens Not Reported Not Detected (NotDetected); Staph lugdunensis Not Reported Not Detected (NotDetected); Staph spp. Not Reported Not Detected (NotDetected); Staphaureus Not Reported Not Detected (NotDetected); Staphepi Not Reported Not Detected (NotDetected); Stenmaltophilia Not Reported Not Detected (NotDetected); Strep agal(GrpB) Not Reported Not Detected (NotDetected); Strep pneum Not Reported Not Detected (NotDetected); Strep pyog (GrpA) Not Reported Not Detected (NotDetected); Strep spp Not Reported Not Detected (NotDetected)
[2022-03-17] MEDS: CEFEPIME 2,000 MG in SYRINGE 0 ML IV SCH ×2 (00:56→12:07)
[2022-03-17] MEDS ORDERED: FAMOTIDINE 20 MG in SYRINGE 3 ML IV ONE (01:45)
[2022-03-17] MEDS: DOXYCYCLINE HYCLATE 100 MG in DEXTROSE 5% 100 ML IV SCH (02:08)
[2022-03-17] MEDS: metroNIDAZOLE 500 MG/100 ML BAG IV SCH (06:50)
[2022-03-17] MEDS: IPRATROPIUM BROMIDE NEB SOLN 0.02% 2.5 ML VIAL INH SCH ×2 (07:06→11:08)
[2022-03-17] MEDS: LEVALBUTEROL 1.25MG/0.5ML NEB INH SCH ×2 (07:06→11:08)
[2022-03-17] MEDS: SODIUM CHLOR 7% 4 ML NEB NEB SCH (07:06)
[2022-03-17 07:47] LABS: Hematocrit (blood only) 37.1 % (42.0-52.0); Hemoglobin 11.5 g/dl (14.0-18.0); Mean Corpuscular Volume 96.9 fL (80.0-100.0); Mean Platelet Volume 10.4 fL (9.4-12.4); Platelet Count 224 K/uL (130-400); RDW Coefficient of Variation 14.4 % (11.5-14.5); RDW Standard Deviation 50.5 fL (36.4-46.3); Red Blood Count 3.83 M/uL (4.70-6.10); White Blood Count 26.22 K/ul (4.8-10.8)
[2022-03-17 08:06] LABS: Basophils # (auto) 0.05 K/uL (0-0.2); Basophils % (auto) 0.2 %; Immature Granulocytes % (auto) 1.9 %; Lymphocytes # (auto) 0.43 K/uL (1.2-3.4); Lymphocytes % (auto) 1.6 %; Monocytes # (auto) 0.55 K/uL (0.11-0.59); Monocytes % (auto) 2.1 %; Neutrophils # (auto) 24.69 K/uL (1.40-6.50); Neutrophils % (auto) 94.2 %; Tear Drop Cells 1+
[2022-03-17] MEDS: ENTERAL FEEDING PEG SCH ×2 (08:22→12:08)
[2022-03-17] MEDS: TUBE FEEDING WATER FLUSH PEG SCH ×2 (08:22→12:08)
[2022-03-17 08:23] LABS: BUN Creatinine Ratio 41.3 (10-20); Calcium 8.9 mg/dl (8.5-10.1); Creatinine Clr Calc Pharmacy 53.6 ml/min; Est GFR (African American) 92.7 ml/min; Est GFR (Non-African American) 79.9 ml/min; Potassium 3.6 mmol/L (3.5-5.1)
[2022-03-17] MEDS: FLUTICASONE FUROATE 100MCG 14 PUFFS/INHALER INH SCH (08:23)
[2022-03-17] MEDS: UMECLIDINIUM/VILANTEROL 62.5/25MCG 7 PUFFS/INHALER INH SCH (08:23)
[2022-03-17] MEDS: CLOTRIMAZOLE 1% CR 15 GM TUBE TOP SCH (08:23)
[2022-03-17] MEDS: methylPREDNISolone 40 MG in SYRINGE 0 ML IV SCH (08:24)
[2022-03-17] MEDS: ENOXAPARIN INJ 40 MG/0.4 ML SYR SQ SCH (08:24)
--- NOTE | 2022-03-17 08:29 | Electrocardiogram Report ---
Test Reason : Blood Pressure : / mmHG Vent. Rate : 072 BPM Atrial Rate : 072 BPM P-R Int : 146 ms QRS Dur : 140 ms QT Int : 442 ms P-R-T Axes : 063 -65 096 degrees QTc Int : 483 ms Normal sinus rhythm Left axis deviation Left bundle branch block Abnormal ECG When compared with ECG of 14-MAR-2022 19:15, Vent. rate has decreased BY 49 BPM Left bundle branch block is now Present Confirmed by Ovidio Zimmerman ([id number] on 03/17/2022 8:29:24 AM Referred By: REFERRED SELF Confirmed By:Ovidio Zimmerman
[2022-03-17] MEDS: ASPIRIN 81 MG CHEW PEG SCH (12:07)
--- NOTE | 2022-03-17 12:33 | Hospitalist Progress Note ---
Date of Service March 17, 2022 Assessment & Plan (1) Multifocal pneumonia: Plan: Recent hospital admission with acute hypoxic respiratory failure, aspiration pneumonia, COPD exacerbation, sepsis and JULES on 03/11/2022 History of chronic aspiration Back into the hospital last night with increasing shortness of breath and noted to be sepsis secondary to multifocal pneumonia likely due to aspiration Has been on intravenous cefepime, vancomycin and doxycycline Blood cultures negative MRSA screen is negative and vancomycin has been discontinued Clinically a little better and will continue current cefepime and doxycycline We will get PT and OT evaluation prior to discharge He wants to go home today and does not want to stay any longer Even threatened to sign out AMA Repeat chest x-ray shows improvement Will discharge home on cefdinir and doxycycline as planned Hypernatremia Sodium is noted to be 151 today Normal saline infusion has been discontinued Will increase free fluid intake through the G-tube Repeat PRP tomorrow-sodium is slightly improved at 149 Patient to take more of the free water through the G-tube (2) COPD exacerbation: Plan: As above and has been on nebulized bronchodilator Has been on methylprednisone IV every 8 hourly 40 mg We will change methylprednisone to every 8 hourly We will give prednisone for a short course (3) Respiratory failure: Plan: #Acute on chronic respiratory failure with hypoxemia (4) Aspiration pneumonia: Plan: 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 Moderate protein calorie malnutrition Nutrition consult Chronic diastolic congestive heart failure No signs and symptoms of fluid overload We will monitor DVT prophylaxis Lovenox subcu CODE STATUS Full Admission and Anticipated Discharge Date Admission Date: March 14, 2022 Subjective 03/15/2022 The patient was seen and examined in telemetry unit He has been feeling a little better but he still has moderate shortness of breath at rest Requiring 4 L of oxygen to maintain saturation Has cough without any chest pain and or palpitation No abdominal pain nausea and or vomiting 03/16/2022 The patient was seen and examined in telemetry unit He feels a little better but he still has moderate to severe shortness of breath at rest No fever and no chills Has been requiring 2 L of oxygen to maintain saturation 03/17/2022 The patient was seen and examined in telemetry with daily He does not want to stay any longer in the hospital Even he wants to sign out AMA if not discharged Denies any significant symptoms Review of Systems Review of Systems: All systems reviewed and are unremarkable except as noted below Physical Exam Physical Exam: Sitting at the edge of the bed with moderate shortness of breath Constitutional: + ill appearing and average body habitus Eyes: PERRL, conjunctivae normal, anicteric sclerae ENMT: external ear and nose normal, oropharynx normal Neck: trachea midline, no thyromegaly Respiratory: + respiratory distress and + labored breathing Auscultation: + diminished lung sounds and + crackles (Coarse crackles bilaterally) Cardiovascular: Rate/Rhythm: regular rate and regular rhythm; not tachycardic Heart Sounds: normal S1 and normal S2; no murmur Extremities: no edema Gastrointestinal (Abdomen): Inspection/Auscultation: normal bowel sounds; abdomen not distended Percussion/Palpation: abdomen soft; abdomen nontender Musculoskeletal: No acute arthritis involving any joint Neurologic: Alert, awake and oriented times, no focal neurodeficit Lymphatic: no cervical or axillary lymphadenopathy Results & Data Results & Data ([facility]) Vital Signs (Past 12 Hours) Vital Signs Temp Pulse Pulse Resp BP Pulse Ox O2 Del Method 03/17/22 12:00 36.4 C L 74 16 133/75 95 Oxymask 03/17/22 11:08 74 18 95 Oxymask 03/17/22 07:55 36.3 C L 69 20 147/77 H 95 Oxymask 03/17/22 07:07 79 95 Oxymask 03/17/22 01:07 78 O2 Flow Rate 03/17/22 12:00 3 03/17/22 11:08 3 03/17/22 07:55 3 03/17/22 07:07 3 03/17/22 01:07 Laboratory Results Short CBC 03/17/22 Range/Units 07:05 WBC 26.22 H (4.8-10.8) K/ul Hgb 11.5 L (14.0-18.0) g/dl Hct 37.1 L (42.0-52.0) % Plt Count 224 (130-400) K/uL BMP 03/17/22 07:05 Sodium 149 H Potassium 3.6 Chloride 112 H Carbon Dioxide 33 H BUN 38 H Creatinine 0.92 Glucose 109 H Calcium 8.9 Medications Administered Current Inpatient Medications Albuterol (Albuterol Hfa 8 Gm Inhaler) 2 puffs INH Q6H PRN PRN Reason: shortness of breath or wheezin Stop: 04/14/22 00:56 Aspirin (Aspirin 81 Mg Chew) 81 mg PEG QDL [facility] Stop: 04/14/22 11:29 Last Admin: 03/17/22 12:07 Dose: 81 mg Atorvastatin Calcium (Atorvastatin 40 Mg Tab) 40 mg PEG QPM [facility] Stop: 04/14/22 20:59 Last Admin: 03/16/22 22:12 Dose: 40 mg Clotrimazole (Clotrimazole 1% Cr 15 Gm Tube) 1 appln TOP BID [facility] Stop: 04/14/22 08:59 Last Admin: 03/17/22 08:23 Dose: 1 appln Enoxaparin Sodium (Enoxaparin Inj 40 Mg/0.4 Ml Syr) 40 mg SQ Q24H [facility] Stop: 04/14/22 08:59 Last Admin: 03/17/22 08:24 Dose: 40 mg Fluticasone Furoate (Fluticasone Furoate 100mcg 14 Puffs/Inhaler) 1 puffs INH QAM [facility] Stop: 04/14/22 08:59 Last Admin: 03/17/22 08:23 Dose: 1 puffs Cefepime HCl 2,000 mg/ Syringe 20 mls @ 5 mls/min IV Q12H [facility]; Protocol Stop: 03/22/22 11:59 Last Admin: 03/17/22 12:07 Dose: 5 mls/min Metronidazole (Flagyl) 500 mg in 100 mls @ 100 mls/hr IV Q8H [facility] Stop: 03/22/22 06:59 Last Infusion: 03/17/22 07:50 Dose: Infused Doxycycline Hyclate 100 mg/ (Dextrose) 110 mls @ 50 mls/hr IV Q12H [facility] Stop: 03/22/22 13:59 Last Infusion: 03/17/22 04:20 Dose: Infused Methylprednisolone 40 mg/ (Syringe) 0.64 mls @ 1.5 mls/min IV Q12H [facility] Stop: 04/15/22 20:59 Last Admin: 03/17/22 08:24 Dose: 1.5 mls/min Ipratropium [place] (Ipratropium [place] Neb Soln 0.02% 2.5 Ml Vial) 0.5 mg INH QIDR [facility] Stop: 04/14/22 00:56 Last Admin: 03/17/22 11:08 Dose: 0.5 mg Ipratropium [place] (Ipratropium [place] Neb Soln 0.02% 2.5 Ml Vial) 0.5 mg INH Q4H PRN PRN Reason: SOB/WHEEZING Stop: 04/14/22 00:56 Levalbuterol HCl (Levalbuterol 1.25mg/0.5ml Neb) 1.25 mg INH QIDR [facility] Stop: 04/14/22 00:56 Last Admin: 03/17/22 11:08 Dose: 1.25 mg Levalbuterol HCl (Levalbuterol 1.25mg/0.5ml Neb) 1.25 mg INH Q4H PRN PRN Reason: SOB/WHEEZING Stop: 04/14/22 00:56 Nitroglycerin (Nitroglycerin Sl 0.4 Mg/Tab Tab) 0.4 mg SL UD PRN PRN Reason: Chest Pain Stop: 04/14/22 00:56 Nutritional Formula (Patient's Own Enteral Feeding [Nutren 2.0]) 250 ml PEG QID@0800,1200,1600,2000 [facility] Stop: 04/14/22 12:09 Last Admin: 03/17/22 12:08 Dose: 250 ml Ondansetron HCl (Ondansetron Inj 2 Mg/Ml 2 Ml Vial) 4 mg IV Q6H PRN PRN Reason: Nausea Stop: 04/14/22 00:56 Sodium Chloride (Sodium Chlor 7% 4 Ml Neb) 4 ml NEB BIDR [facility] Stop: 04/14/22 06:59 Last Admin: 03/17/22 07:06 Dose: 4 ml Sterile Water (Tube Feeding Water Flush) 100 ml PEG DAILY@0800,1200,1600,2000 [facility] Stop: 04/14/22 12:14 Last Admin: 03/17/22 12:08 Dose: 100 ml Umeclidinium/Vilanterol (Umeclidinium/Vilanterol 62.5/25mcg 7 Puffs/Inhaler) 1 puffs INH DAILY [facility] Stop: 04/14/22 08:59 Last Admin: 03/17/22 08:23 Dose: 1 puffs (1) Respiratory failure Chronicity: acute on chronic Respiratory failure complication: hypoxia Qualified Code(s): J96.21 - Acute and chronic respiratory failure with hypoxia (2) Aspiration pneumonia Aspiration pneumonia type: unspecified Laterality: right Lung location: lower lobe of lung Qualified Code(s): J69.0 - Pneumonitis due to inhalation of food and vomit
--- NOTE | 2022-03-17 13:04 | XRay Report ---
XR chest 1V portable HISTORY: Pneumonia COMPARISON: Chest 03/14/2022. FINDINGS: No pneumothorax. The trace right pleural effusion. Right basilar airspace opacities are aga in noted. Chronic interstitial thickening again noted. The heart is stable in size. There are postope rative changes. No evidence for pulmonary edema. IMPRESSION: 1. Persistent right basilar airspace opacities likely representing a pneumonia. 2. Trace right pleural effusion. ACT 112: Negative or not required by law. Electronically signed by: Ritesh Quevedo M.D. 03/17/2022 1:03 PM
--- NOTE | 2022-03-17 16:44 | Discharge Summary ---
Date of Service March 17, 2022 Admission HPI Per Admitting Provider DICTATED BY:Kingsley Holly MD DATE OF ADMISSION: 03/14/2022 CHIEF COMPLAINT: Respiratory distress and sepsis. HISTORY OF PRESENT ILLNESS: This is a 76-year-old male with past medical history significant for chronic respiratory failure with hypoxia and hypercapnia, on home oxygen 2-3 L, chronic diastolic CHF, EF of 55% on echo in 2020, chronic left bundle-branch block, CAD status post CABG, aortic stenosis, status post bioprosthetic aortic valve replacement, history of COPD, chronic pulmonary aspiration, status post PEG tube placement, hypertension, hyperlipidemia, nasopharyngeal cancer, status post chemoradiation, chronic anemia, hemoglobin baseline of 11-13, history of tobacco abuse, , chronic kidney disease stage III, sensorineural hearing loss both ears, status post PEG tube placement, who was recently in the hospital for acute hypoxic respiratory failure, aspiration pneumonia, COPD exacerbation, sepsis and JULES, treated with antibiotics, nebs, hypertonic saline with nebs and he was discharged on Augmentin and doxycycline for five more days and prednisone 40 mg for 3 more days, discharged on 03/11/2022 comes back with respiratory distress. The patient lives alone. Son lives 5 minutes away,son checks on him very frequently. As per son, he was doing okay until today morning and then in the afternoon, he seemed to be somewhat lethargic on the phone, he went and checked him, was having respiratory distress and he was brought in here. Initially he was on nonrebreather, his oxygen was in the 80s and with BiPAP his oxygen saturation improved. The patient had a lot of cough with thick sputum, . The patient currently speaks in low voices, seems alert and oriented. He has lot of cough and says also has a lot of diarrhea. Denies any chest pain. He has some back pain. He is not eating anything from the mouth and he gets everything from the feeding tube. Denies any chest pain, no headache, no blurred visions. He says he ambulates sometimes with cane.Currently somewhat agitated that we are not letting him go into the bathroom for bowel movement. In the ER, blood pressure dropped to 60s but on recheck its in 90s and he is getting 1 L fluid bolus. When he came in, his pulse was in the 120s, currently his heart rate improved to the 80s and 90s. The patient is afebrile. His white count is elevated at 26,000. Venous blood gas with pH 7.32. Sodium is 151, creatinine 1.5 and on 03/09/2022 was 0.9. Lactate is 2.9. Troponin I 27.8. BNP 117. COVID negative. Chest x-ray again showing multifocal pneumonia. Admission Exam Per Admitting Provider GENERAL: The patient is alert and awake and seems oriented. VITAL SIGNS: Temperature 37, pulse currently in the 80s, respiratory rate 22, systolic BP in 90s, oxygen 98% on BiPAP. HEENT: Pupils equal, round and reactive to light. Oral mucosa dry and thick mucus seen NECK: No obvious neck masses seen. CARDIOVASCULAR: S1 and S2 heard. Regular rate and rhythm. No murmur, no gallop. RESPIRATORY SYSTEM: Normal AP diameter. No accessory muscle use. Diminished bilateral breath sounds. No obvious wheezing. ABDOMEN: Soft. Bowel sounds present. PEG tube site is slightly wet, no erythema seen, nontender. CENTRAL NERVOUS SYSTEM: Alert and awake, obeys simple commands. Moves extremities. EXTREMITIES: No edema, no erythema. Principal Diagnosis Multifocal pneumonia, aspiration pneumonia, hyponatremia, nasopharyngeal cancer, PEG tube status Discharge Exam Sitting at the edge of the bed with moderate shortness of breath Constitutional + ill appearing and average body habitus Eyes PERRL, conjunctivae normal, anicteric sclerae ENMT external ear and nose normal, oropharynx normal Neck trachea midline, no thyromegaly Respiratory + respiratory distress and + labored breathing Auscultation: + diminished lung sounds and + crackles (Coarse crackles bilaterally) Cardiovascular Rate/Rhythm: regular rate and regular rhythm; not tachycardic Heart Sounds: normal S1 and normal S2; no murmur Extremities: no edema Gastrointestinal (Abdomen) Inspection/Auscultation: normal bowel sounds; abdomen not distended Percussion/Palpation: abdomen soft; abdomen nontender Lymphatic no cervical or axillary lymphadenopathy Discharge Data Allergies Allergy/AdvReac Type Severity Reaction Status Date / Time No Known Allergies Allergy Verified 03/14/22 23:17 Consultations 03/14/22 20:45 ED Decision to Admit Stat Hospital Course (1) Multifocal pneumonia: Recent hospital admission with acute hypoxic respiratory failure, aspiration pneumonia, COPD exacerbation, sepsis and JULES on 03/11/2022 History of chronic aspiration Back into the hospital last night with increasing shortness of breath and noted to be sepsis secondary to multifocal pneumonia likely due to aspiration Has been on intravenous cefepime, vancomycin and doxycycline Blood cultures negative MRSA screen is negative and vancomycin has been discontinued Clinically a little better and will continue current cefepime and doxycycline We will get PT and OT evaluation prior to discharge He wants to go home today and does not want to stay any longer Even threatened to sign out AMA Repeat chest x-ray shows improvement Will discharge home on cefdinir and doxycycline as planned Hypernatremia Sodium is noted to be 151 today Normal saline infusion has been discontinued Will increase free fluid intake through the G-tube Repeat PRP tomorrow-sodium is slightly improved at 149 Patient to take more of the free water through the G-tube (2) COPD exacerbation: As above and has been on nebulized bronchodilator Has been on methylprednisone IV every 8 hourly 40 mg We will change methylprednisone to every 8 hourly We will give prednisone for a short course (3) Respiratory failure: #Acute on chronic respiratory failure with hypoxemia (4) Aspiration pneumonia: History of nasopharyngeal cancer status post chemoradiation Status post PEG tube Has been having aspiration frequently He has not been eating or taking anything orally We will have aspiration precaution Plan to give oral cefdinir and doxycycline on discharge Advised to take precautions to avoid aspiration (5) CAD (coronary artery disease): No cardiac symptom (6) Hx of aortic valve replacement: Status post aortic valve replacement (7) History of nasopharyngeal cancer: (8) Hypertension: (9) JULES (acute kidney injury): Has chronic kidney disease and coming in with dehydration and JULES We will monitor. Moderate protein calorie malnutrition Nutrition consult Chronic diastolic congestive heart failure No signs and symptoms of fluid overload We will monitor DVT prophylaxis Lovenox subcu CODE STATUS Full Total Time Total Time Spent Total Time Spent (In Minutes): 35 minutes Discharge Plan Discharge Items Patient Disposition: Home - Self-Care Reason For Visit: RESPIRATORY DISTRESS Discharge Diagnosis: Multifocal pneumonia, aspiration pneumonia, hyponatremia, nasopharyngeal cancer, PEG tube status Activity: Resume your previous activity Non-emergency contact: Primary Care Provider Call non-emergency contact if: you have any medication questions and your symptoms worsen Follow-up/Referrals: Prudencio Burns MD [Primary Care Provider] - (Your doctor's office will give you call with an appointment within 7 days) Diet: Nothing by Mouth and Other - See Diet Comment Diet Comment: Uses about 250 mL more of free water for the ne next few days through PEG Addtl Attending Provider Instructions: Please take precautions to avoid falls Please follow aspiration precautions as before Finish the course of antibiotic through the PEG tube Please give appointment with your healthcare providers Pending Studies at Discharge: No Stand-Alone Forms: My [facility], Smoking Cessation Medications and DC Order Prescriptions: New prednisone 20 mg tablet 20 mg feeding tube BID 5 Days Qty: 10 0RF Continued atorvastatin 40 mg Tablet 40 mg feeding tube QPM nitroglycerin 0.4 mg Tablet, Sublingual 0.4 mg sublingual UD PRN (Reason: Chest Pain) Rx Instructions: NEEDEDFOR CHEST PAIN : ONE TABLET UNDER THE TONGUE EVERY 5 MINUTES UP TO THREE DOSES. albuterol sulfate [ProAir HFA] 90 mcg/actuation HFA aerosol inhaler 2 inh inhalation Q6H PRN (Reason: shortness of breath or wheezing) Qty: 8.5 0RF aspirin 81 mg Tablet,Chewable 81 mg feeding tube QDL Nutren 2.0 0.08 gram-2 kcal/mL Liquid 1 ea feeding tube QID Rx Instructions: administer via gravity bag Trelegy Ellipta 100-62.5-25 mcg blister with device 1 inh INHALATION QAM Saline Mist 0.65 % aerosol,spray 2 spray NA Q4H PRN (Reason: NASAL DRYNESS) oxymetazoline [Afrin (oxymetazoline)] 0.05 % Inglis,Non-Aerosol 2 spray INTRANASAL Q12H PRN (Reason: .NOSE BLEEDS) triamcinolone acetonide 0.1 % cream 1 applic TOPICAL BID Rx Instructions: APPLY TO GRANULATION TISSUE AROUND G-TUBE TWICE DAILY FOR ONE WEEK AT A TIME ONLY clotrimazole 1 % cream 1 applic TOPICAL BID Rx Instructions: APPLY TOPICALLY TO PEG SITE TWO TIMES A DAY. water for irrigation, sterile Solution 120 ml IRRIGATION 5XD Rx Instructions: into feeding tube sodium chloride 7 % Solution For Nebulization 4 ml NEB BIDR Qty: 120 0RF ipratropium-albuterol 0.5 mg-3 mg(2.5 mg base)/3 mL solution for nebulization 3 ml inhalation BID Qty: 90 0RF amoxicillin-pot clavulanate 250-62.5 mg/5 mL suspension for reconstitution 10 ml PO Q8H 5 Days Qty: 150 0RF doxycycline hyclate 100 mg tablet 100 mg PO Q12H 5 Days Qty: 10 0RF Discharge Orders: Discharge Order (Routine); Ordered 03/17/22 Ordered By: Awilda Cartagena Admission Data Admit Date/Time: 03/14/22 22:51 Attending Provider: Awilda Cartagena Admit Provider: Kingsley Holly Primary Care Provider: Prudencio Burns Other Providers: Kingsley Holly Other Interventions: Discharge Summary Assessment (RN) Last Done: 03/17/22 14:03
[2022-03-17] MEDS ORDERED: AMOXICILLIN/CLAVULANATE 875 MG TAB PO SCH (17:00)
[2022-03-17] MEDS ORDERED: DOXYCYCLINE HYCLATE 100 MG CAP PO SCH (21:00)
== END 2022-03-17 16:15 | disposition home or self-care (01) | DRG 871 ==
LOC: ED 19:01 → EDINP 22:51 → 2S 03-15 01:18

== ENCOUNTER 2022-05-25 19:12 | Inpatient (IN) ==
[2022-05-25] MEDS ORDERED: ALBUT/IPRATROP 3MG/0.5MG NEB 3 ML VIAL NEB STA (19:46)
[2022-05-25] MEDS ORDERED: ACETAMINOPHEN 1,000 MG/100 ML VIAL IV STA (19:50)
[2022-05-25] MEDS ORDERED: SODIUM CHLORIDE 0.9% 1000ML 1,000 ML IV SCH ×2 (20:00→22:30)
[2022-05-25 20:11] LABS: Hematocrit (blood only) 25.7 % (42.0-52.0); Hemoglobin 7.7 g/dl (14.0-18.0); Mean Corpuscular Hemoglobin 28.8 pg (25.0-34.0); Mean Corpuscular Volume 96.3 fL (80.0-100.0); Mean Platelet Volume 10.3 fL (9.4-12.4); Nucleated RBC # (auto) 0.03 K/uL (0-0.12); Nucleated RBC % (auto) 0.2 %; Platelet Count 277 K/uL (130-400); RDW Coefficient of Variation 15.5 % (11.5-14.5); RDW Standard Deviation 54.7 fL (36.4-46.3); Red Blood Count 2.67 M/uL (4.70-6.10); White Blood Count 18.86 K/ul (4.8-10.8)
[2022-05-25 20:26] LABS: Albumin Globulin Ratio 0.8 (0.9-2); BUN Creatinine Ratio 34.2 (10-20); Bilirubin,Total 0.4 mg/dl (0.2-1.0); Calcium 8.4 mg/dl (8.6-10.3); Creatinine Clr Calc Pharmacy 63.3 ml/min; Est GFR (African American) 99.7 ml/min; Globulin 3.8 gm/dl (2.5-4.0); Magnesium 1.9 mg/dl (1.7-2.4); Potassium 3.9 mmol/L (3.5-5.1); Total Protein 6.8 gm/dl (6.0-8.3)
[2022-05-25] MEDS ORDERED: PIPERACILLIN/TAZOBACTAM 4.5 GM/120 ML BAG IV ONE (20:27)
[2022-05-25 20:31] LABS: Basophils # (auto) 0.04 K/uL (0-0.2); Basophils % (auto) 0.2 %; Eosinophils # (auto) 0.07 K/uL (0-0.50); Eosinophils % (auto) 0.4 %; Immature Granulocytes # (auto) 0.05 K/uL (0.01-0.20); Immature Granulocytes % (auto) 0.3 %; Lymphocytes # (auto) 0.52 K/uL (1.2-3.4); Lymphocytes % (auto) 2.8 %; Monocytes # (auto) 0.99 K/uL (0.11-0.59); Monocytes % (auto) 5.2 %; Neutrophils # (auto) 17.19 K/uL (1.40-6.50); Neutrophils % (auto) 91.1 %; Polychromasia 1+
[2022-05-25 20:33] LABS: Troponin I High Sensitivity 14.6 pg/ml (0-20)
--- NOTE | 2022-05-25 21:13 | Emergency Department Note ---
Impression & Plan SOB (shortness of breath), Hypoxia, Anemia ED Provider Note ED Provider Note NAME: DAXA WRIGHT AGE:77 SEX: Male : 1945 ARRIVES VIA: EMS INFORMANT: Patient ED PROVIDER(s): Amara Arce DO CHIEF COMPLAINT: Shortness of breath, hypoxia HPI: This is 77-year-old male presents emerged department via EMS with son at bedside due to concern for increased trouble breathing and hypoxia noted at home. Son states patient has a history of aspiration and has previously had pneumonia. He does wear home oxygen typically at 2 L/min. He also has a feeding tube to help prevent aspiration. Today patient had an episode in the evening where he was suddenly hypoxic to 68% according to the son. The son states he readjust the mask and turned up the oxygen at home as high as it would go which was 5 L/min. He states the oxygen came up to around 90%. He states his dad seemed confused and weak during this time and had increased secretions. He states no noted fever at home, no other breathing treatments prior to arrival. No known sick contacts. Patient does have prior history of COPD, CHF, prior CABG as well as valve replacement. 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 PAST MEDICAL HISTORY:See Below PAST SURGICAL HISTORY:See Below FAMILY HISTORY:See Below SOCIAL HISTORY:See Below HOME MEDICATIONS:See Below ALLERGIES:See Below VITALS:See Below PHYSICAL EXAMINATION: GENERAL: alert, well appearing, well nourished, no distress, non-toxic EYE EXAM: normal conjunctiva, PERRL and EOM's grossly intact OROPHARYNX: no exudate, no erythema, lips, buccal mucosa, and tongue normal and mucous membranes are moist NECK: supple, no nuchal rigidity, no adenopathy, non-tender LUNGS: Coarse breath sounds bilaterally, normal chest wall mechanics, bilateral rhonchi right greater than left, no wheezes HEART: no murmurs, S1 normal and S2 normal ABDOMEN: abdomen soft, non-tender, normo-active bowel sounds, no masses, no rebound or guarding. PEG tube noted, well-appearing at stoma BACK: Back is symmetrical on inspection and there is no deformity, no midline tenderness, no CVA tenderness. SKIN: no rashes, petechiae, orbruising UPPER EXTREMITIES: upper extremities are grossly normal. FROM, nml pulses b/l. LOWER EXTREMITIES: No pitting edema. FROM, nml pulses b/l. NEURO EXAM: Normal sensorium, cranial nerves II-XII grossly intact, normal speech, no facial droop,nogross weakness of arms, no gross weakness of legs. Gross sensation intact. No ataxia. Vital Signs: reviewed and remarkable Differential Diagnosis: Differential diagnoses includes but is not limited to pneumonia, bronchitis, COPD/Asthma exacerbation, pneumothorax, pulmonary embolism, congestive heart failure, acute coronary syndrome MEDICAL DECISION MAKING: This is a 77-year-old male brought in by EMS after son noted that he was markedly hypoxic at home with mild confusion and fatigue. Patient does wear 2 L chronically however son increased this to the maximum amount on their oxygen at home with some improvement although not back to baseline. On arrival here patient was on nonrebreather at 15 L but was able to be titrated down to 8 to 10 L and maintain oxygen saturation. He was awake and talking and able to have adequate history and son felt by time of arrival here his mentation was back to baseline. Labs drawn and sent, IV established, EKG and chest x-ray performed interpreted by me at bedside, patient placed on telemetry. Given appearance of possible evolving right lower lobe infiltrate as well as patient's prior history of aspiration, blood cultures, procalcitonin, lactic acid also sent and patient given dose of IV Zosyn. Patient had been hemodynamically stable and oxygen was being weaned down When patient abruptly became hypotensive and hypoxic again. Oxygen turned up by nursing staff to 15 L on nonrebreather again and an IV fluid bolus was open. Patient continued to be mentating well and denied any symptoms of being short of breath or any symptoms of pain. Patient given a second liter of IV fluids with only mild improvement of his blood pressure equaling greater than 30 mL/KG per sepsis guidelines. Patient does have significant heart history although last echo showed an ejection fraction of 50 to 55%. Patient continued on IV fluids and low-dose norepinephrine drip was added. Patient blood pressure improved and following this were able to maintain a MAP of greater than 65. Patient's oxygen was able to be slowly weaned down again, and he was given additional nebulizer treatment as a precaution. Hospitalist was updated on the change in his condition and we had already previously spoken about his need for admission. Patient had denied any black or bloody stools, anemia today appears worse compared to prior although patient did state he had a severe nosebleed the other night. Upon review of EMR patient does have a prior history of significant nosebleeds requiring ENT intervention at [facility] in [place]. Patient does use low-dose aspirin daily, no other anticoagulation. Consultation(s): 2137: Discussed with Dr. Holly. ER Treatment Provided: See below 2129: I was called urgently to the room as patient became hypotensive and hypoxic. An additional fluid bolus was started and nursing staff began working on a second IV site. Patient's oxygen was increased up to 15 L on a nonrebreather again. Patient is still awake and mentating well, denies any worsening symptoms. 2139: Updated son via the phone. Patient is a full code. Diagnostics Interpreted By Me: -ECG: NSR at 96, nml axis, nml intervals, no acute ST/T wave changes -Cardiac Monitoring: An order was placed for continuous cardiac monitoring. The monitor shows a rate of 82 with normal sinus rhythm. -Laboratory studies: As stated above and show below. -Imaging studies: X-ray Chest: A single view study of the chest was reviewed and was negative for cardiomegaly,effusion, pulmonary edema, or wide mediastinum. Appearance of evolving RLL infiltrate. Triage Nursing Note Reviewed Prior/Outside Records Reviewed - prior discharge summary reviewed Procedures: [] Critical Care: Critical care of 68 min performed to assess and manage high likelihood of life- threatening hypoxia and hypotension, involving labs and imaging performed with assessment to evaluate hypoxia and hypotension diagnosis with frequent reassessment. This time includes bedside time, treatment discussions with patient/family/consultants, documentation time and excludes procedure time. 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 Milton- [facility]/ NO STENTS History of cataract surgery History of colonoscopy with polypectomy 09/25/2018. Propofol given, no issues. History of coronary [facility] [place] History of heart valve replacement Bioprosthetic aortic valve - [place] 2016 History of shoulder surgery RIGHT History of tonsillectomy History of tooth extraction History of vascular access device NO LONGER HAS PORT Hx of aortic valve replacement Status post insertion of percutaneous endoscopic gastrostomy (PEG) tube PLACED DUE TO PALATE SURGERY- THEN REMOVED 2014 Family History Father Cancer Liver Cancer Social History Smoking Status: Never smoker Tobacco Type: Cigarettes Second Hand Exposure: No; Tobacco Cessation Education Requested by Patient: No Hx Alcohol Use: No Hx Substance Use: No Preferred Language: Fijian Communication Ability: Impaired Communication Ability Comment: malformed palate Heel Seat Pounder Required: No Beliefs That Will Affect Care: None marital status: / Current Living Situation: Alone How many Children do You have: 1 Other Information That Helps Us Care for You: No Feels Safe at Home: Yes Safety Concerns: Feels Safe At This Time Assistive Devices: CPAP and Oxygen - Continuous Allergies Allergies Allergy/AdvReac Type Severity Reaction Status Date / Time No Known Allergies Allergy Verified 05/25/22 19:36 Home Meds Home Medications Medication Instructions Recorded Confirmed atorvastatin 40 mg tablet 40 mg feeding tube QPM 09/18/18 05/25/22 nitroglycerin 0.4 mg sublingual 0.4 mg sublingual UD PRN Chest Pain 09/18/18 05/25/22 tablet aspirin 81 mg chewable tablet 81 mg feeding tube QDL 02/19/21 05/25/22 nutritional supplements 0.08 1 ea feeding tube QID 02/19/21 05/25/22 gram-2 kcal/mL liquid for tube feed (Nutren 2.0) sodium chloride 0.65 % nasal spray 2 spray NA Q4H PRN NASAL DRYNESS 09/07/21 05/25/22 aerosol (Saline Mist) clotrimazole 1 % topical cream 1 applic topical BID 12/28/21 05/25/22 oxymetazoline 0.05 % nasal spray 2 spray intranasal Q12H PRN NOSE 12/28/21 05/25/22 (Afrin (oxymetazoline)) BLEEDS triamcinolone acetonide 0.1 % 1 applic topical BID 12/28/21 05/25/22 topical cream water for irrigation, sterile 120 ml irrigation 5XD 03/07/22 05/25/22 cyanocobalamin (vitamin B-12) 1,000 mcg feeding tube DAILY 05/06/22 05/25/22 1,000 mcg tablet (Vitamin B-12) folic acid 1 mg tablet 1 mg feeding tube DAILY 05/06/22 05/25/22 Iron Infusion 1 dose IV DIRECTED 05/25/22 05/25/22 Previous Rx's Medication Instructions Recorded albuterol sulfate 90 mcg/actuation 2 inh inhalation Q6H PRN shortness 05/06/20 aerosol inhaler (ProAir HFA) of breath or wheezing #8.5 grams ipratropium 0.5 mg-albuterol 3 mg 3 ml inhalation BID wheezing #90 mL 03/11/22 (2.5 mg base)/3 mL nebulization soln sodium chloride 7 % for 4 ml NEB BIDR #120 mL 03/11/22 nebulization Results & Data (ED) Vital Signs Vital Signs - 24 hr 05/25/22 19:25 05/25/22 19:25 05/25/22 19:25 Temperature 37.9 C H Temperature Source Oral Pulse Rate 97 H Pulse Rate from SpO2 Sensor Respiratory Rate 24 Respiratory Effort / Characteristics Labored Blood Pressure 108/61 Blood Pressure Mean 76 Blood Pressure Position Sitting Pulse Oximetry 96 96 Oxygen Delivery Method Non-rebreather Non-rebreather Non-rebreather Oxygen Flow Rate 8 8 Sepsis Recent Fever Within 48 Hours No Sepsis New/Unexplained Change in Mental Status N/A Sepsis Action Taken by Nursing No Action Required 05/25/22 19:52 05/25/22 20:49 05/25/22 19:38 Temperature 37.4 C Temperature Source Oral Pulse Rate 90 Pulse Rate from SpO2 Sensor Respiratory Rate 24 Respiratory Effort / Characteristics Non-Labored Spontaneous Blood Pressure Blood Pressure Mean Blood Pressure Position Pulse Oximetry Oxygen Delivery Method Oxygen Flow Rate Sepsis Recent Fever Within 48 Hours Sepsis New/Unexplained Change in Mental Status Sepsis Action Taken by Nursing 05/25/22 19:40 05/25/22 19:50 05/25/22 20:00 Temperature Temperature Source Pulse Rate 88 96 H 91 H Pulse Rate from SpO2 Sensor 88 91 H Respiratory Rate 24 20 23 Respiratory Effort / Characteristics Blood Pressure Blood Pressure Mean Blood Pressure Position Pulse Oximetry 97 92 Oxygen Delivery Method Oxygen Flow Rate Sepsis Recent Fever Within 48 Hours Sepsis New/Unexplained Change in Mental Status Sepsis Action Taken by Nursing 05/25/22 20:10 05/25/22 20:16 05/25/22 20:20 Temperature Temperature Source Pulse Rate 91 H 94 H 96 H Pulse Rate from SpO2 Sensor 91 H 96 H Respiratory Rate 26 H 21 21 Respiratory Effort / Characteristics Blood Pressure 92/49 L Blood Pressure Mean 63 Blood Pressure Position Pulse Oximetry 92 90 100 Oxygen Delivery Method Oxygen Flow Rate Sepsis Recent Fever Within 48 Hours Sepsis New/Unexplained Change in Mental Status Sepsis Action Taken by Nursing 05/25/22 20:30 05/25/22 20:37 05/25/22 20:40 Temperature Temperature Source Pulse Rate 103 H 98 H 91 H Pulse Rate from SpO2 Sensor 103 H 98 H 94 H Respiratory Rate 16 17 19 Respiratory Effort / Characteristics Blood Pressure 96/49 L Blood Pressure Mean 64 Blood Pressure Position Pulse Oximetry 95 89 L 86 L Oxygen Delivery Method Oxygen Flow Rate Sepsis Recent Fever Within 48 Hours Sepsis New/Unexplained Change in Mental Status Sepsis Action Taken by Nursing 05/25/22 20:45 05/25/22 20:50 05/25/22 21:00 Temperature Temperature Source Pulse Rate 95 H 93 H 91 H Pulse Rate from SpO2 Sensor 96 H 93 H 91 H Respiratory Rate 26 H 19 21 Respiratory Effort / Characteristics Blood Pressure 105/54 L 70/37 L Blood Pressure Mean 71 48 Blood Pressure Position Pulse Oximetry 98 99 100 Oxygen Delivery Method Oxygen Flow Rate Sepsis Recent Fever Within 48 Hours Sepsis New/Unexplained Change in Mental Status Sepsis Action Taken by Nursing 05/25/22 21:02 05/25/22 21:10 05/25/22 21:14 Temperature Temperature Source Pulse Rate 92 H 92 H 91 H Pulse Rate from SpO2 Sensor 92 H 92 H 91 H Respiratory Rate 16 20 18 Respiratory Effort / Characteristics Blood Pressure 71/38 L Blood Pressure Mean 49 Blood Pressure Position Pulse Oximetry 99 98 98 Oxygen Delivery Method Oxygen Flow Rate Sepsis Recent Fever Within 48 Hours Sepsis New/Unexplained Change in Mental Status Sepsis Action Taken by Nursing 05/25/22 21:17 05/25/22 21:18 05/25/22 21:20 Temperature Temperature Source Pulse Rate 94 H 110 H 90 Pulse Rate from SpO2 Sensor 93 H 94 H 91 H Respiratory Rate 26 H 22 17 Respiratory Effort / Characteristics Blood Pressure 70/37 L 67/34 L 75/39 L Blood Pressure Mean 48 45 51 Blood Pressure Position Pulse Oximetry 90 92 92 Oxygen Delivery Method Oxygen Flow Rate Sepsis Recent Fever Within 48 Hours Sepsis New/Unexplained Change in Mental Status Sepsis Action Taken by Nursing 05/25/22 21:25 05/25/22 21:25 Temperature Temperature Source Pulse Rate 88 Pulse Rate from SpO2 Sensor 88 Respiratory Rate 22 Respiratory Effort / Characteristics Blood Pressure 62/34 L Blood Pressure Mean 43 Blood Pressure Position Pulse Oximetry 92 Oxygen Delivery Method Oxygen Flow Rate Sepsis Recent Fever Within 48 Hours Sepsis New/Unexplained Change in Mental Status Sepsis Action Taken by Nursing Laboratory Data 05/25/22 19:27 05/25/22 19:27 Lab Results 05/25/22 05/25/22 05/25/22 Range/Units 19:27 19:27 19:27 WBC 18.86 H (4.8-10.8) K/ul RBC 2.67 L (4.70-6.10) M/uL Hgb 7.7 L (14.0-18.0) g/dl Hct 25.7 L (42.0-52.0) % MCV 96.3 (80.0-100.0) fL MCH 28.8 (25.0-34.0) pg MCHC 30.0 L (32.0-36.0) g/dL RDW Std Deviation 54.7 H (36.4-46.3) fL RDW Coeff of Navid 15.5 H (11.5-14.5) % Plt Count 277 (130-400) K/uL MPV 10.3 (9.4-12.4) fL Immature Gran % (Auto) 0.3 % Neut % (Auto) 91.1 % Lymph % (Auto) 2.8 % Gove % (Auto) 5.2 % Eos % (Auto) 0.4 % Baso % (Auto) 0.2 % Neut # (Auto) 17.19 H (1.40-6.50) K/uL Lymph # (Auto) 0.52 L (1.2-3.4) K/uL Gove # (Auto) 0.99 H (0.11-0.59) K/uL Eos # (Auto) 0.07 (0-0.50) K/uL Baso # (Auto) 0.04 (0-0.2) K/uL Immature Gran # (Auto) 0.05 (0.01-0.20) K/uL Absolute Nucleated RBC 0.03 (0-0.12) K/uL Nucleated RBC % (auto) 0.2 % Polychromasia 1+ Sodium 139 (136-145) mmol/L Potassium 3.9 (3.5-5.1) mmol/L Chloride 99 (98-107) mmol/L Carbon Dioxide 37 H (21-32) mmol/L Anion Gap 3 (3-11) BUN 27 H (6-23) mg/dl Creatinine 0.79 (0.6-1.4) mg/dl Est Cr Clr Drug Dosing 63.3 ml/min Est GFR ( Amer) 99.7 ml/min Est GFR (Non-Af Amer) 86.0 ml/min BUN/Creatinine Ratio 34.2 H (10-20) Glucose 171 H (70-99(Fasting)) mg/dl Lactate (0.4-2.0) mmol/L Calcium 8.4 L (8.6-10.3) mg/dl Magnesium 1.9 (1.7-2.4) mg/dl Total Bilirubin 0.4 (0.2-1.0) mg/dl AST 27 (13-39) U/L ALT 11 (7-52) U/L Alkaline Phosphatase 89 (34-104) U/L Troponin I High Sens 14.6 (0-20) pg/ml B-Natriuretic Peptide (0-100) pg/ml Total Protein 6.8 (6.0-8.3) gm/dl Albumin 3.0 L (3.4-5.0) gm/dl Globulin 3.8 (2.5-4.0) gm/dl Albumin/Globulin Ratio 0.8 L (0.9-2) Procalcitonin 0.66 H (0-0.5) ng/ml TSH (0.300-4.500) uIu/ml Random Cortisol mcg/dl SARS-CoV-2, RNA, NAAT (NEGATIVE) 05/25/22 05/25/22 05/25/22 Range/Units 19:27 19:27 19:27 WBC (4.8-10.8) K/ul RBC (4.70-6.10) M/uL Hgb (14.0-18.0) g/dl Hct (42.0-52.0) % MCV (80.0-100.0) fL MCH (25.0-34.0) pg MCHC (32.0-36.0) g/dL RDW Std Deviation (36.4-46.3) fL RDW Coeff of Navid (11.5-14.5) % Plt Count (130-400) K/uL MPV (9.4-12.4) fL Immature Gran % (Auto) % Neut % (Auto) % Lymph % (Auto) % Gove % (Auto) % Eos % (Auto) % Baso % (Auto) % Neut # (Auto) (1.40-6.50) K/uL Lymph # (Auto) (1.2-3.4) K/uL Gove # (Auto) (0.11-0.59) K/uL Eos # (Auto) (0-0.50) K/uL Baso # (Auto) (0-0.2) K/uL Immature Gran # (Auto) (0.01-0.20) K/uL Absolute Nucleated RBC (0-0.12) K/uL Nucleated RBC % (auto) % Polychromasia Sodium (136-145) mmol/L Potassium (3.5-5.1) mmol/L Chloride (98-107) mmol/L Carbon Dioxide (21-32) mmol/L Anion Gap (3-11) BUN (6-23) mg/dl Creatinine (0.6-1.4) mg/dl Est Cr Clr Drug Dosing ml/min Est GFR ( Amer) ml/min Est GFR (Non-Af Amer) ml/min BUN/Creatinine Ratio (10-20) Glucose (70-99(Fasting)) mg/dl Lactate (0.4-2.0) mmol/L Calcium (8.6-10.3) mg/dl Magnesium (1.7-2.4) mg/dl Total Bilirubin (0.2-1.0) mg/dl AST (13-39) U/L ALT (7-52) U/L Alkaline Phosphatase (34-104) U/L Troponin I High Sens (0-20) pg/ml B-Natriuretic Peptide 264 H (0-100) pg/ml Total Protein (6.0-8.3) gm/dl Albumin (3.4-5.0) gm/dl Globulin (2.5-4.0) gm/dl Albumin/Globulin Ratio (0.9-2) Procalcitonin (0-0.5) ng/ml TSH 2.517 (0.300-4.500) uIu/ml Random Cortisol 24.35 mcg/dl SARS-CoV-2, RNA, NAAT (NEGATIVE) 05/25/22 05/25/22 Range/Units 21:37 22:19 WBC (4.8-10.8) K/ul RBC (4.70-6.10) M/uL Hgb (14.0-18.0) g/dl Hct (42.0-52.0) % MCV (80.0-100.0) fL MCH (25.0-34.0) pg MCHC (32.0-36.0) g/dL RDW Std Deviation (36.4-46.3) fL RDW Coeff of Navid (11.5-14.5) % Plt Count (130-400) K/uL MPV (9.4-12.4) fL Immature Gran % (Auto) % Neut % (Auto) % Lymph % (Auto) % Gove % (Auto) % Eos % (Auto) % Baso % (Auto) % Neut # (Auto) (1.40-6.50) K/uL Lymph # (Auto) (1.2-3.4) K/uL Gove # (Auto) (0.11-0.59) K/uL Eos # (Auto) (0-0.50) K/uL Baso # (Auto) (0-0.2) K/uL Immature Gran # (Auto) (0.01-0.20) K/uL Absolute Nucleated RBC (0-0.12) K/uL Nucleated RBC % (auto) % Polychromasia Sodium (136-145) mmol/L Potassium (3.5-5.1) mmol/L Chloride (98-107) mmol/L Carbon Dioxide (21-32) mmol/L Anion Gap (3-11) BUN (6-23) mg/dl Creatinine (0.6-1.4) mg/dl Est Cr Clr Drug Dosing ml/min Est GFR ( Amer) ml/min Est GFR (Non-Af Amer) ml/min BUN/Creatinine Ratio (10-20) Glucose (70-99(Fasting)) mg/dl Lactate 1.0 (0.4-2.0) mmol/L Calcium (8.6-10.3) mg/dl Magnesium (1.7-2.4) mg/dl Total Bilirubin (0.2-1.0) mg/dl AST (13-39) U/L ALT (7-52) U/L Alkaline Phosphatase (34-104) U/L Troponin I High Sens (0-20) pg/ml B-Natriuretic Peptide (0-100) pg/ml Total Protein (6.0-8.3) gm/dl Albumin (3.4-5.0) gm/dl Globulin (2.5-4.0) gm/dl Albumin/Globulin Ratio (0.9-2) Procalcitonin (0-0.5) ng/ml TSH (0.300-4.500) uIu/ml Random Cortisol mcg/dl SARS-CoV-2, RNA, NAAT NEGATIVE (NEGATIVE) Administered Medications Albuterol (Albut/Ipratrop 3mg/0.5mg Neb 3 Ml Vial) 3 ml NEB QIDR ROYA; Protocol Stop: 06/25/22 06:59 Last Admin: 05/27/22 10:10 Dose: 3 ml Documented By: Admin: 05/27/22 07:32 Dose: 3 ml Documented By: Admin: 05/26/22 19:44 Dose: 3 ml Documented By: Admin: 05/26/22 15:10 Dose: 3 ml Documented By: Admin: 05/26/22 10:53 Dose: 3 ml Documented By: Admin: 05/26/22 07:35 Dose: 3 ml Documented By: IMER Aspirin (Aspirin 81 Mg Chew) 81 mg PEG QDL [facility] Stop: 06/25/22 11:29 Last Admin: 05/27/22 09:03 Dose: 81 mg Documented By: Admin: 05/26/22 11:07 Dose: 81 mg Documented By: LIT Atorvastatin Calcium (Atorvastatin 40 Mg Tab) 40 mg PEG QPM [facility] Stop: 06/25/22 20:59 Last Admin: 05/26/22 20:05 Dose: 40 mg Documented By: IFRAH Enoxaparin Sodium (Enoxaparin Inj 40 Mg/0.4 Ml Syr) 40 mg SQ Q24H [facility] Stop: 06/25/22 08:59 Last Admin: 05/27/22 09:00 Dose: 40 mg Documented By: LIT Folic Acid (Folic Acid 1 Mg Tab) 1 mg PEG DAILY [facility] Stop: 06/25/22 08:59 Last Admin: 05/27/22 09:02 Dose: 1 mg Documented By: Admin: 05/26/22 08:20 Dose: 1 mg Documented By: LIT Norepinephrine Bitartrate (Levophed/D5w) 4 mg in 250 mls @ 0 mls/hr IV .Q0M [facility]; Protocol Stop: 06/24/22 22:44 Last Titration: 05/27/22 07:00 Dose: 0 mcg/kg/min, 0 mls/hr Documented By: Admin: 05/27/22 00:40 Dose: Not Given Documented By: Titration: 05/27/22 00:27 Dose: 0.03 mcg/kg/min, 6.5 mls/hr Documented By: Titration: 05/26/22 19:17 Dose: 0.05 mcg/kg/min, 10.9 mls/hr Documented By: IFRAH Co-signed By: LIT Titration: 05/26/22 19:16 Dose: 0.05 mcg/kg/min, 10.9 mls/hr Documented By: Titration: 05/26/22 14:07 Dose: 0.05 mcg/kg/min, 10.9 mls/hr Documented By: Titration: 05/26/22 13:20 Dose: 0.03 mcg/kg/min, 6.5 mls/hr Documented By: Admin: 05/26/22 12:25 Dose: 0.05 mcg/kg/min, 10.9 mls/hr Documented By: LIT Co-signed By: JAMES Titration: 05/26/22 12:25 Dose: 0.05 mcg/kg/min, 10.9 mls/hr Documented By: LIT Co-signed By: JAMES Titration: 05/26/22 09:32 Dose: 0.05 mcg/kg/min, 10.9 mls/hr Documented By: Titration: 05/26/22 07:12 Dose: 0.07 mcg/kg/min, 15.3 mls/hr Documented By: TITUS Co-signed By: LIT Titration: 05/26/22 06:37 Dose: 0.07 mcg/kg/min, 15.3 mls/hr Documented By: Titration: 05/26/22 00:32 Dose: 0.11 mcg/kg/min, 24 mls/hr Documented By: Titration: 05/25/22 23:56 Dose: 0.09 mcg/kg/min, 19.6 mls/hr Documented By: Titration: 05/25/22 23:22 Dose: 0.07 mcg/kg/min, 15.3 mls/hr Documented By: Admin: 05/25/22 22:40 Dose: 0.05 mcg/kg/min, 10.9 mls/hr Documented By: CARRIE Co-signed By: DAINA Piperacillin Sod/Tazobactam (Sod 4.5 gm/ Dextrose) 120 mls @ 30 mls/hr IV Q8H [facility]; Protocol Stop: 06/02/22 03:59 Last Admin: 05/27/22 11:59 Dose: 30 mls/hr Documented By: Infusion: 05/27/22 08:16 Dose: 0 mls/hr Documented By: Admin: 05/27/22 03:53 Dose: 30 mls/hr Documented By: Infusion: 05/27/22 00:05 Dose: 0 mls/hr Documented By: Admin: 05/26/22 20:05 Dose: 30 mls/hr Documented By: Infusion: 05/26/22 16:25 Dose: 0 mls/hr Documented By: Admin: 05/26/22 11:36 Dose: 30 mls/hr Documented By: Infusion: 05/26/22 09:00 Dose: 0 mls/hr Documented By: Admin: 05/26/22 03:58 Dose: 30 mls/hr Documented By: CF Midodrine (Midodrine Hcl 2.5 Mg Tab) 5 mg PO TID@0800,1200,1700 [facility] Stop: 06/26/22 11:59 Last Admin: 05/27/22 09:02 Dose: 5 mg Documented By: LIT Miscellaneous (Icu Protocol For Hyperglycemia) 1 each N/A ACHS [facility] Stop: 05/28/22 07:29 Last Admin: 05/27/22 11:35 Dose: 1 each Documented By: Admin: 05/27/22 07:30 Dose: 1 each Documented By: Admin: 05/26/22 20:56 Dose: Not Given Documented By: Admin: 05/26/22 15:58 Dose: 1 each Documented By: Admin: 05/26/22 11:30 Dose: 1 each Documented By: Admin: 05/26/22 08:21 Dose: 1 each Documented By: LIT Nutritional Formula (Nutren Liqd 2.0 1,000 Ml Bag) 1,000 ml PEG UD [facility]; Protocol Stop: 06/25/22 15:59 Last Admin: 05/26/22 16:55 Dose: 1,000 ml Documented By: LIT Sodium Chloride (Sodium Chlor 7% 4 Ml Neb) 4 ml NEB BIDR [facility] Stop: 06/25/22 06:59 Last Admin: 05/27/22 07:32 Dose: 4 ml Documented By: Admin: 05/26/22 19:43 Dose: 4 ml Documented By: Admin: 05/26/22 07:35 Dose: 4 ml Documented By: IMER Sterile Water (Tube Feeding Water Flush) 120 ml PEG [id number] [facility] Stop: 06/25/22 06:59 Last Admin: 05/27/22 11:33 Dose: 120 ml Documented By: Admin: 05/27/22 09:22 Dose: 120 ml Documented By: Admin: 05/27/22 00:26 Dose: 120 ml Documented By: Admin: 05/26/22 20:05 Dose: 120 ml Documented By: Admin: 05/26/22 15:58 Dose: 120 ml Documented By: Admin: 05/26/22 11:05 Dose: 120 ml Documented By: Admin: 05/26/22 08:20 Dose: 120 ml Documented By: LIT Discontinued Medications Acetaminophen (Acetaminophen 1000 Mg/100 Ml Iv) Confirm Administered Dose 1,000 mg IV .STK-MED ONE Stop: 05/26/22 03:48 Last Admin: 05/26/22 03:48 Dose: Not Given Documented By: TITUS Albuterol (Albut/Ipratrop 3mg/0.5mg Neb 3 Ml Vial) 3 ml NEB NOW STA; Protocol Stop: 05/25/22 19:47 Last Admin: 05/25/22 19:58 Dose: 3 ml Documented By: DAINA Cyanocobalamin (Cyanocobalamin (B-12) 500 Mcg Tablet) 1,000 mcg PEG DAILY ROYA Stop: 06/25/22 08:59 Last Admin: 05/26/22 08:20 Dose: 1,000 mcg Documented By: LIT Enoxaparin Sodium (Enoxaparin Inj 40 Mg/0.4 Ml Syr) 40 mg SQ NOW ONE Stop: 05/26/22 09:46 Last Admin: 05/26/22 11:06 Dose: 40 mg Documented By: LIT Sodium Chloride (Nss 1000ml) 1,000 mls @ 125 mls/hr IV .Q8H ROYA Stop: 06/24/22 19:59 Last Infusion: 05/25/22 21:27 Dose: 0 mls/hr Documented By: Admin: 05/25/22 20:15 Dose: 125 mls/hr Documented By: DAINA Acetaminophen (Ofirmev) 1,000 mg in 100 mls @ 400 mls/hr IV NOW STA Stop: 05/25/22 20:04 Last Infusion: 05/25/22 20:37 Dose: 0 mls/hr Documented By: Admin: 05/25/22 19:58 Dose: 400 mls/hr Documented By: DAINA Piperacillin Sod/Tazobactam Sod (Zosyn) 4.5 gm in 120 mls @ 240 mls/hr IV NOW ONE Stop: 05/25/22 20:56 Last Infusion: 05/25/22 21:35 Dose: 0 mls/hr Documented By: Admin: 05/25/22 20:45 Dose: 240 mls/hr Documented By: DAINA Sodium Chloride (Nss 1000ml) 1,000 mls @ 125 mls/hr IV .Q8H ROYA Stop: 06/24/22 22:29 Last Infusion: 05/26/22 04:40 Dose: 0 mls/hr Documented By: Admin: 05/25/22 22:46 Dose: 125 mls/hr Documented By: LOYD Lactated Ringer's (Lr) 1,000 mls @ 999 mls/hr IV .Q1H1M ONE Stop: 05/26/22 02:49 Last Infusion: 05/26/22 03:48 Dose: 0 mls/hr Documented By: Admin: 05/26/22 02:46 Dose: 999 mls/hr Documented By: CF Sodium Chloride (Nss 1000ml) 1,000 mls @ 125 mls/hr IV .Q8H ROYA Stop: 06/25/22 02:17 Last Admin: 05/26/22 10:30 Dose: Not Given Documented By: Infusion: 05/26/22 09:30 Dose: 0 mls/hr Documented By: Admin: 05/26/22 03:43 Dose: 125 mls/hr Documented By: CF Vancomycin HCl 1,250 mg/ (Sodium Chloride) 275 mls @ 200 mls/hr IV NOW ONE; Protocol Stop: 05/26/22 04:37 Last Infusion: 05/26/22 05:39 Dose: 0 mls/hr Documented By: Admin: 05/26/22 03:58 Dose: 200 mls/hr Documented By: CF Acetaminophen (Ofirmev) 1,000 mg in 100 mls @ 400 mls/hr IV NOW STA Stop: 05/26/22 03:49 Last Infusion: 05/26/22 04:38 Dose: 0 mls/hr Documented By: Admin: 05/26/22 03:47 Dose: 400 mls/hr Documented By: CF Vancomycin HCl 750 mg/ Sodium (Chloride) 265 mls @ 200 mls/hr IV Q12H ROYA; Protocol Stop: 05/28/22 15:59 Last Infusion: 05/27/22 05:13 Dose: 0 mls/hr Documented By: Admin: 05/27/22 03:53 Dose: 200 mls/hr Documented By: Infusion: 05/26/22 17:30 Dose: 0 mls/hr Documented By: Admin: 05/26/22 15:28 Dose: 200 mls/hr Documented By: LIT Ioversol (Optiray 320 500ml) 125 ml IV ONCE ONE Stop: 05/26/22 00:54 Last Admin: 05/26/22 00:53 Dose: 114 ml Documented By: LESA Lidocaine HCl (Lidocaine 2% Jelly 5 Ml Tube) 5 ml EXT ONCE ONE Stop: 05/26/22 02:46 Last Admin: 05/26/22 02:38 Dose: 5 ml Documented By: CF Discharge Plan Visit Data Chief Complaint: Shortness of Breath/Dyspnea Stated Complaint: SHORTNES OF BREATH ED Provider: Amara Arce Discharge Problem: SOB (shortness of breath), Hypoxia, Anemia Patient Disposition: Admitted As Inpatient Discharge Instructions Interventions: ED Discharge Assessment Last Done: 05/26/22 01:54
[2022-05-25] MEDS ORDERED: STAT IV Infusion **Titration per Protocol STA (22:33)
[2022-05-25] MEDS: NOREPINEPHRINE/D5W 4 MG/250 ML PLCT IV SCH (22:40)
--- NOTE | 2022-05-26 00:42 | Critical Care Consultation ---
Date of Consultation May 26, 2022 Assessment & Plan (1) Hypoxia: (2) Acute hyponatremia: (3) Shock: (4) Hyperlipidemia: (5) Hypertension: (6) History of nasopharyngeal cancer: (7) Hx of aortic valve replacement: (8) CAD (coronary artery disease): (9) Sepsis: (10) LBBB (left bundle branch block): Plan Reason Critically Ill: Patient presents hypoxic, hypotensive- initiated on vasopressors in EMD. Concern for septic shock secondary to aspiration PNA. Neuro - No acute needs CAM ICU: Negative Cardiac - Shock, HX CABG, CAD, AVR - Shock- multifactorial at this time to include hypovolemia with sepsis - will provide another liter of crystalloid as volume responsive and still with clinical picture of hypovolemia - continue with asa, and statin- not on BB - Levophed for MAPS >65 - random cortisol 25 Respiratory - Aspiration pneumonia, plueral effusion, hypoxia with chronic home o2 use, abnormal CT scan of chest - Aspiration pneumonia right middle/lower lobes - hypoxia without respiratory failure- wean down oxygen ABG stable - Pulmonary toilet with hypertonic saline and albuterol nebulizers - patient may swab mouth and gargle to help with clearing secretions - Continue Zosyn- de-escalate as able - CT scan with attenuation of the right mainstem bronchus- new since 09/28- PET with pulmonary consultation needed for follow up GI - Chronic malnutrition - NPO for now- - PEG button noted without abnormalities RENAL/LYTES - JULES - increase in BUN with mild increase in his HEALTH TECH - Resolved folliwng IVF - wean pressors - Bowman placed for accurate MARTA while on pressors - Patient requested bowman be removed- as his morning labs have improved and he has made adequate urine, will discontinue ENDO - No acute needs HEME - Chronic anemia, normocytic - Patient reports that he gets iron transfusions- anemia labs sent by primary service - reports next transfusion of iron - Sunday 05/28 - Endorses no change in stools - Transfuse if <7 or symptomatic ID - Aspiration pneumnia, - Continue Zosyn - broaden out if clinical course worsens LINES/IV ACCESS - PIV, Bowman Continue use of these lines DVT PROPHYLAXIS - SCDS, Lovenox DISPO - ICU while on pressors I have personally spent 40 minutes of critical care time in the direct management of this patient. This is a life/limb threatening event. This includes time spent evaluating patient, direct bedside care, chart review, placing orders, interpretation of diagnostic studies, discussion with consultants, patient, and family members, as well as other required patient management activities. This time is exclusive of all separately billable procedures, and teaching time and separate from and in addition to any other critical care service time. Thank you for allowing us to participate in the care of this patient. Please refer to my attending physician's documentation for any further recommendations. History of Present Illness Reason for Consultation: Hypotension- concern for septic shock Requesting Physician: Kingsley Holly Attending Physician: Kingsley Holly History of Present Illness 77 YOM with medical history of: Nasopharyngeal cancer- chemo/radiation hx, Chronic aspiration, aspiration pneumonia, CABG, HfpEF, chronic home O2 use, Bioprosthetic AV, COPD, PEG tube placement secondary to chronic aspiration, HTN, HLD, chronic iron deficiency anemia- he gets tranfusions at home- next is this Tuesday. Patient reports to the EMD today for complaints of increasing dyspnea that was reportedly noted by family members with thick secretions being coughed up and needing to increase home oxygen. He was noted to be hypotensive, tachycardic, and hypoxic on arrival to the EMD. In the EMD the patient had routine labs performed to include PCT, blood cultures. He was given 2 Liters of crystalloid with improvement in blood pressure however, was started on L evophed following his 30ml/kg. ICU was consulted and patient evaluated in the EMD- he is noted to be with moist voice and upper airway gurgling. Able to converse with out dyspnea, but with his oxygen off for 3 min his Spo2 decreases. Patient also appears clinically hypovolemic with minimal urine output and dry mucous membranes. Patient will be admitted to ICU for weaning of vasopressors, and continued volume resuscitation. CTA of the chest, random cortisol and ABG requested. COVID: Negative CODE: FULL Allergies Allergy/AdvReac Type Severity Reaction Status Date / Time No Known Allergies Allergy Verified 05/25/22 19:36 Home Medications Medication Instructions Recorded Confirmed Type atorvastatin 40 mg tablet 40 mg feeding tube QPM 09/18/18 05/25/22 History nitroglycerin 0.4 mg sublingual 0.4 mg sublingual UD PRN Chest Pain 09/18/18 History tablet albuterol sulfate 90 mcg/actuation 2 inh inhalation Q6H PRN shortness 05/06/20 05/25/22 Rx aerosol inhaler (ProAir HFA) of breath or wheezing #8.5 grams aspirin 81 mg chewable tablet 81 mg feeding tube QDL 02/19/21 05/25/22 History nutritional supplements 0.08 1 ea feeding tube QID 02/19/21 05/25/22 History gram-2 kcal/mL liquid for tube feed (Nutren 2.0) sodium chloride 0.65 % nasal spray 2 spray NA Q4H PRN NASAL DRYNESS 09/07/21 05/25/22 History aerosol (Saline Mist) clotrimazole 1 % topical cream 1 applic topical BID 12/28/21 05/25/22 History oxymetazoline 0.05 % nasal spray 2 spray intranasal Q12H PRN NOSE 12/28/21 05/25/22 History (Afrin (oxymetazoline)) BLEEDS triamcinolone acetonide 0.1 % 1 applic topical BID 12/28/21 05/25/22 History topical cream water for irrigation, sterile 120 ml irrigation 5XD 03/07/22 05/25/22 History ipratropium 0.5 mg-albuterol 3 mg 3 ml inhalation BID wheezing #90 mL 03/11/22 05/25/22 Rx (2.5 mg base)/3 mL nebulization soln sodium chloride 7 % for 4 ml NEB BIDR #120 mL 03/11/22 05/25/22 Rx nebulization cyanocobalamin (vitamin B-12) 1,000 mcg feeding tube DAILY 05/06/22 05/25/22 History 1,000 mcg tablet (Vitamin B-12) folic acid 1 mg tablet 1 mg feeding tube DAILY 05/06/22 05/25/22 History Iron Infusion 1 dose IV DIRECTED 05/25/22 05/25/22 History Patient History Medical History Acute hypoxemic respiratory failure Acute on chronic diastolic heart failure Acute renal insufficiency JULES (acute kidney injury) CAD (coronary artery disease) Cardiac murmur CHILD FROM RHEUMATIC FEVER CHF (congestive heart failure) Chronic pulmonary aspiration CKD (chronic kidney disease) stage 3, GFR 30-59 ml/min Elevated lactic acid level Former tobacco use Hearing deficit BILAT History of ID (myocardial infarction) 2017/ [facility] History of nasopharyngeal cancer s/p radiation, chemo- NO PORT ANYMORE CLEARED NOV 2013 History of rheumatic fever Hyperlipidemia Hypertension Left bundle branch block (LBBB) Palate abnormality prosthetic palate Pneumonia Radiation adverse effect Severe sepsis Surgical History History of cardiac cath 2017 - ID --> CABG - [facility]- follows w/ Dr. Milton- [facility]/ NO STENTS History of cataract surgery History of colonoscopy with polypectomy 09/25/2018. Propofol given, no issues. History of coronary artery bypass graft One vessel - 2016 - [facility] History of heart valve replacement Bioprosthetic aortic valve - 2016 History of shoulder surgery RIGHT History of tonsillectomy History of tooth extraction History of vascular access device NO LONGER HAS PORT Hx of aortic valve replacement Status post insertion of percutaneous endoscopic gastrostomy (PEG) tube PLACED DUE TO PALATE SURGERY- THEN REMOVED 2014 Family History Father Cancer Liver Cancer Social History Smoking Status: Never smoker Tobacco Type: Cigarettes Second Hand Exposure: No; Tobacco Cessation Education Requested by Patient: No Hx Alcohol Use: No Hx Substance Use: No Preferred Language: [place] Communication Ability: Impaired Communication Ability Comment: malformed palate Director Pharmaceutical Required: No Beliefs That Will Affect Care: None marital status: / Current Living Situation: Alone How many Children do You have: 1 Other Information That Helps Us Care for You: No Feels Safe at Home: Yes Safety Concerns: Feels Safe At This Time Assistive Devices: CPAP and Oxygen - Continuous Review of Systems Review of Systems: REVIEW OF SYSTEMS: Constitutional: No fever, sweats or chills Eyes: No diplopia, no worsening or blurred vision ENT: (+) difficulty hearing, hx of nose bleeds, trouble swallowing Respiratory: (+) cough, sputum, dyspnea at rest or on exertion Cardiovascular: No chest pain, tightness or palpitations Abdomen: No pain, nausea, vomiting, diarrhea or constipation Musculoskeletal: No joint pain, calf pain, swelling Neurologic: No weakness, numbness/tingling, or balance problems Psychiatric: No anxiety or depression Skin: No rash or itch Physical Exam Physical Exam: PHYSICAL EXAM: General: awake, alert, no apparent distress Head: Normocephalic, atraumatic ENT: PERRLA, EOMI, no pharyngeal exudate, mucous membranes dry, Neuro: AAO x 3, speech garbled at baseline and appropriate, strength intact bilaterally 5/5, sensation intact and equal all extremities and dermatomes, no pronator drift Chest: equal rise and fall of the chest, no accessory muscle use, no heaves or thrills, upper airway rhonchi, scattered rhonchi in right base Cardiac: Regular rate and rhythm, telemetry reviewed, skin warm dry, cap refill <3 seconds, peripheral pules +2 no JVD, Grade III systolic murmur, no edema GI: NABS x 4 quadrants, soft, nontender to palpation, no rebound, guarding or tenderness, peg button in place : Spontaneously voiding, no pain, no CVA tenderness, Extremities: Normal inspection, no peripheral edema or erythema, calfs nontender to palpation Psych: Normal mood and affect Skin: no rash or erythema Results & Data Results & Data Vital Signs (Past 12 Hours) Vital Signs Temp Pulse Resp BP Pulse Ox O2 Del Method O2 Flow Rate 05/25/22 23:29 70 05/26/22 00:10 67 17 98/51 L 99 Non-rebreather 12 05/26/22 00:05 69 26 H 85/42 L 98 05/26/22 00:00 71 18 104/51 L 100 05/25/22 23:55 73 20 88/46 L 100 05/25/22 23:50 72 19 98/52 L 100 05/25/22 23:45 71 20 93/48 L 100 05/25/22 23:40 73 18 93/53 L 98 05/25/22 23:35 73 16 99/52 L 99 05/25/22 23:30 70 20 83/44 L 96 05/25/22 23:25 63 7 L 95/43 L 99 05/25/22 23:20 89/49 L 100 05/25/22 23:15 94/49 L 90 05/25/22 23:10 89/47 L 91 05/25/22 23:05 76 19 97/49 L 100 Non-rebreather 15 05/25/22 23:00 78 19 101/56 L 100 05/25/22 22:55 79 16 98/53 L 100 05/25/22 22:50 72 17 98/54 L 100 05/25/22 22:47 81 20 91/48 L 99 05/25/22 22:45 79 19 81/46 L 100 05/25/22 22:40 75 19 75/40 L 100 05/25/22 22:35 79 22 78/44 L 100 05/25/22 22:30 82 17 81/45 L 100 05/25/22 22:25 72 18 85/45 L 100 05/25/22 19:40 91 H 05/25/22 22:20 77 18 85/47 L 99 05/25/22 22:14 76 19 81/44 L 100 05/25/22 22:10 77 21 87/47 L 100 05/25/22 22:05 83 18 74/39 L 94 05/25/22 22:00 83 19 83/43 L 100 05/25/22 21:55 80 20 81/45 L 100 05/25/22 21:50 74 19 84/43 L 100 05/25/22 21:45 91 H 25 H 77/43 L 100 05/25/22 21:40 81 17 78/42 L 100 05/25/22 21:35 82 21 71/43 L 95 05/25/22 21:30 87 20 81/40 L 82 L 05/25/22 21:25 88 22 92 05/25/22 21:25 62/34 L 05/25/22 21:20 90 17 75/39 L 92 05/25/22 21:18 110 H 22 67/34 L 92 05/25/22 21:17 94 H 26 H 70/37 L 90 05/25/22 21:14 91 H 18 98 05/25/22 21:10 92 H 20 98 05/25/22 21:02 92 H 16 71/38 L 99 05/25/22 21:00 91 H 21 70/37 L 100 05/25/22 20:50 93 H 19 99 05/25/22 20:45 95 H 26 H 105/54 L 98 05/25/22 20:40 91 H 19 86 L 05/25/22 20:37 98 H 17 96/49 L 89 L 04/18/23 20:30 103 H 16 95 04/18/23 20:20 96 H 21 100 05/25/22 20:16 94 H 21 92/49 L 90 05/25/22 20:10 91 H 26 H 92 05/25/22 20:00 91 H 23 92 05/25/22 19:50 96 H 20 05/25/22 19:40 88 24 97 05/25/22 19:38 90 24 05/25/22 20:49 37.4 C 05/25/22 19:25 96 Non-rebreather 8 05/25/22 19:25 Non-rebreather 05/25/22 19:25 37.9 C H 97 H 24 108/61 96 Non-rebreather 8 Laboratory Results Abnormal lab results 05/25/22 05/25/22 05/25/22 Range/Units 19:27 19:27 19:27 WBC 18.86 H (4.8-10.8) K/ul RBC 2.67 L (4.70-6.10) M/uL Hgb 7.7 L (14.0-18.0) g/dl Hct 25.7 L (42.0-52.0) % MCHC 30.0 L (32.0-36.0) g/dL RDW Std Deviation 54.7 H (36.4-46.3) fL RDW Coeff of Navid 15.5 H (11.5-14.5) % Neut # (Auto) 17.19 H (1.40-6.50) K/uL Lymph # (Auto) 0.52 L (1.2-3.4) K/uL Dyer # (Auto) 0.99 H (0.11-0.59) K/uL POC pCO2 (35-46) mmHg POC pO2 (80-95) mmHg POC HCO3 (19-24) seda/L POC Total CO2 (24-31) mmol/L POC Base Excess (-9-1.8) seda/L POC ABG O2 Sat (90-95) % Carbon Dioxide 37 H (21-32) mmol/L BUN 27 H (6-23) mg/dl BUN/Creatinine Ratio 34.2 H (10-20) Glucose 171 H (70-99(Fasting)) mg/dl Calcium 8.4 L (8.6-10.3) mg/dl Phosphorus (2.5-4.9) mg/dl Iron (35-175) mcg/dl TIBC (250-450) mcg/dl Transferrin % Sat (20-50) % B-Natriuretic Peptide (0-100) pg/ml Albumin 3.0 L (3.4-5.0) gm/dl Albumin/Globulin Ratio 0.8 L (0.9-2) Vitamin B12 (180-914) pg/ml Procalcitonin 0.66 H (0-0.5) ng/ml 05/25/22 05/26/22 05/26/22 Range/Units 19:27 02:54 02:54 WBC 21.60 H (4.8-10.8) K/ul RBC 2.53 L (4.70-6.10) M/uL Hgb 7.2 L (14.0-18.0) g/dl Hct 23.9 L (42.0-52.0) % MCHC 30.1 L (32.0-36.0) g/dL RDW Std Deviation 53.1 H (36.4-46.3) fL RDW Coeff of Navid 15.4 H (11.5-14.5) % Neut # (Auto) 19.29 H (1.40-6.50) K/uL Lymph # (Auto) 0.86 L (1.2-3.4) K/uL Dyer # (Auto) 1.22 H (0.11-0.59) K/uL POC pCO2 (35-46) mmHg POC pO2 (80-95) mmHg POC HCO3 (19-24) seda/L POC Total CO2 (24-31) mmol/L POC Base Excess (-9-1.8) seda/L POC ABG O2 Sat (90-95) % Carbon Dioxide (21-32) mmol/L BUN 24 H (6-23) mg/dl BUN/Creatinine Ratio 37.5 H (10-20) Glucose 104 H (70-99(Fasting)) mg/dl Calcium 7.6 L (8.6-10.3) mg/dl Phosphorus 2.3 L (2.5-4.9) mg/dl Iron 15 L (35-175) mcg/dl TIBC 240 L (250-450) mcg/dl Transferrin % Sat 6 L (20-50) % B-Natriuretic Peptide 264 H (0-100) pg/ml Albumin (3.4-5.0) gm/dl Albumin/Globulin Ratio (0.9-2) Vitamin B12 (180-914) pg/ml Procalcitonin (0-0.5) ng/ml 05/26/22 05/26/22 Range/Units 02:54 03:11 WBC (4.8-10.8) K/ul RBC (4.70-6.10) M/uL Hgb (14.0-18.0) g/dl Hct (42.0-52.0) % MCHC (32.0-36.0) g/dL RDW Std Deviation (36.4-46.3) fL RDW Coeff of Navid (11.5-14.5) % Neut # (Auto) (1.40-6.50) K/uL Lymph # (Auto) (1.2-3.4) K/uL Dyer # (Auto) (0.11-0.59) K/uL POC pCO2 58 H (35-46) mmHg POC pO2 142 H (80-95) mmHg POC HCO3 34 H (19-24) seda/L POC Total CO2 36 H (24-31) mmol/L POC Base Excess 9.0 H (-9-1.8) seda/L POC ABG O2 Sat 99.0 H (90-95) % Carbon Dioxide (21-32) mmol/L BUN (6-23) mg/dl BUN/Creatinine Ratio (10-20) Glucose (70-99(Fasting)) mg/dl Calcium (8.6-10.3) mg/dl Phosphorus (2.5-4.9) mg/dl Iron (35-175) mcg/dl TIBC (250-450) mcg/dl Transferrin % Sat (20-50) % B-Natriuretic Peptide (0-100) pg/ml Albumin (3.4-5.0) gm/dl Albumin/Globulin Ratio (0.9-2) Vitamin B12 1360 H (180-914) pg/ml Procalcitonin (0-0.5) ng/ml Diagnostic Findings Chest CTA 05/26/22 00:16 Exam(s): CTA CHEST IV Amt: 114 ml optiray 320 EXAM: CT Angiography Chest With Intravenous Contrast CLINICAL HISTORY: Reason for exam: PE. TECHNIQUE: Axial computed tomographic angiography images of the chest with intravenous contrast. CTDI is 21.19 mGy and DLP is 249.68 mGy-cm. Automated exposure control was utilized for the study. A dose lowering technique was utilized adhering to the principles of ALARA. MIP reconstructed images were created and reviewed. COMPARISON: Dated 09/07/21 FINDINGS: Pulmonary arteries: Unremarkable. No pulmonary embolism. Aorta: No acute findings. No thoracic aortic aneurysm. Lungs: There is diffuse interlobular septal thickening compatible with edema. There is consolidation within the right lower lobe and middle lobe concerning for pneumonia. There is attenuation of the right mainstem bronchus (image 70 series 3) with infrahilar soft tissue noted (image 53 series 3). Pleural space: There is a small right pleural effusion. No pneumothorax. Heart: There is a small physiologic pericardial effusion. There are coronary vascular calcifications. No evidence of RV dysfunction. Bones/joints: The patient is status post sternotomy. There are degenerative changes of the thoracolumbar spine. No acute fracture. No dislocation. Soft tissues: See above. Lymph nodes: Unremarkable. No enlarged lymph nodes. Tubes, lines and devices: There is partial visualization of a gastrostomy tube. Other findings: The patient is status post transcatheter aortic valve replacement. IMPRESSION: 1. Small right pleural effusion and changes of pulmonary edema with suspected infection in the right lower and middle lobes. 2. Attenuation of the right mainstem bronchus with soft tissue in the right hilum concerning for neoplasm versus confluent lymphadenopathy. Findings are new since the available 09/2021 comparison. In the absence of prior imaging of this finding, PET CT would be the next study of choice. Electronically signed by: Lucien Sandoval MD 05/26/22 01:17 AM Medications Administered Norepinephrine Bitartrate (Levophed/D5w) 4 mg in 250 mls @ 23.966 mls/hr IV .[id number] [facility]; Protocol Stop: 06/24/22 22:44 Last Titration: 05/26/22 00:32 Dose: 0.11 mcg/kg/min, 24 mls/hr Documented By: Titration: 05/25/22 23:56 Dose: 0.09 mcg/kg/min, 19.6 mls/hr Documented By: Titration: 05/25/22 23:22 Dose: 0.07 mcg/kg/min, 15.3 mls/hr Documented By: Admin: 05/25/22 22:40 Dose: 0.05 mcg/kg/min, 10.9 mls/hr Documented By: CARRIE Co-signed By: DAINA Sodium Chloride (Nss 1000ml) 1,000 mls @ 125 mls/hr IV .Q8H ROYA Stop: 06/25/22 02:17 Last Admin: 05/26/22 03:43 Dose: 125 mls/hr Documented By: TITUS Piperacillin Sod/Tazobactam (Sod 4.5 gm/ Dextrose) 120 mls @ 30 mls/hr IV Q8H ROYA; Protocol Stop: 06/02/22 03:59 Last Admin: 05/26/22 03:58 Dose: 30 mls/hr Documented By: TITUS Vancomycin HCl 1,250 mg/ (Sodium Chloride) 275 mls @ 200 mls/hr IV NOW ONE; Protocol Stop: 05/26/22 04:37 Last Admin: 05/26/22 03:58 Dose: 200 mls/hr Documented By: TITUS Discontinued Medications Acetaminophen (Acetaminophen 1000 Mg/100 Ml Iv) Confirm Administered Dose 1,000 mg IV .STK-MED ONE Stop: 05/26/22 03:48 Last Admin: 05/26/22 03:48 Dose: Not Given Documented By: TITUS Albuterol (Albut/Ipratrop 3mg/0.5mg Neb 3 Ml Vial) 3 ml NEB NOW STA; Protocol Stop: 05/25/22 19:47 Last Admin: 05/25/22 19:58 Dose: 3 ml Documented By: DAINA Sodium Chloride (Nss 1000ml) 1,000 mls @ 125 mls/hr IV .Q8H ROYA Stop: 06/24/22 19:59 Last Infusion: 05/25/22 21:27 Dose: 0 mls/hr Documented By: Admin: 05/25/22 20:15 Dose: 125 mls/hr Documented By: DAINA Acetaminophen (Ofirmev) 1,000 mg in 100 mls @ 400 mls/hr IV NOW STA Stop: 05/25/22 20:04 Last Infusion: 05/25/22 20:37 Dose: 0 mls/hr Documented By: Admin: 05/25/22 19:58 Dose: 400 mls/hr Documented By: DAINA Piperacillin Sod/Tazobactam Sod (Zosyn) 4.5 gm in 120 mls @ 240 mls/hr IV NOW ONE Stop: 05/25/22 20:56 Last Infusion: 05/25/22 21:35 Dose: 0 mls/hr Documented By: Admin: 05/25/22 20:45 Dose: 240 mls/hr Documented By: DAINA Sodium Chloride (Nss 1000ml) 1,000 mls @ 125 mls/hr IV .Q8H ROYA Stop: 06/24/22 22:29 Last Admin: 05/25/22 22:46 Dose: 125 mls/hr Documented By: CARRIE Lactated Ringer's (Lr) 1,000 mls @ 999 mls/hr IV .Q1H1M ONE Stop: 05/26/22 02:49 Last Infusion: 05/26/22 03:48 Dose: 0 mls/hr Documented By: Admin: 05/26/22 02:46 Dose: 999 mls/hr Documented By: TITUS Acetaminophen (Ofirmev) 1,000 mg in 100 mls @ 400 mls/hr IV NOW STA Stop: 05/26/22 03:49 Last Admin: 05/26/22 03:47 Dose: 400 mls/hr Documented By: TITUS Ioversol (Optiray 320 500ml) 125 ml IV ONCE ONE Stop: 05/26/22 00:54 Last Admin: 05/26/22 00:53 Dose: 114 ml Documented By: LESA Lidocaine HCl (Lidocaine 2% Jelly 5 Ml Tube) 5 ml EXT ONCE ONE Stop: 05/26/22 02:46 Last Admin: 05/26/22 02:38 Dose: 5 ml Documented By: TITUS Coding Level of Care Code 75267 CRITICAL CARE 1ST 30-74M Diagnoses Hypoxia R09.02 Acute hyponatremia E87.1 Shock R57.9 Hyperlipidemia E78.5 Hypertension I10 History of nasopharyngeal cancer Z85.819 Hx of aortic valve replacement Z95.2 CAD (coronary artery disease) I25.10 Sepsis A41.9 Sepsis acute organ dysfunction status: unspecified Sepsis type: sepsis due to unspecified organism LBBB (left bundle branch block) I44.7 (9) Sepsis Sepsis acute organ dysfunction status: unspecified Sepsis type: sepsis due to unspecified organism Qualified Code(s): A41.9 - Sepsis, unspecified organism
[2022-05-26] MEDS ORDERED: OPTIRAY 320 500ml IV ONE (00:53)
--- NOTE | 2022-05-26 01:18 | CT Scan Report ---
Exam(s): CTA CHEST IV Amt: 114 ml optiray 320 EXAM: CT Angiography Chest With Intravenous Contrast CLINICAL HISTORY: Reason for exam: PE. TECHNIQUE: Axial computed tomographic angiography images of the chest with intravenous contrast. CTDI is 21.19 mGy and DLP is 249.68 mGy-cm. Automated exposure control was utilized for the study. A dose lowering technique was utilized adhering to the principles of ALARA. MIP reconstructed images were created and reviewed. COMPARISON: Dated 09/07/21 FINDINGS: Pulmonary arteries: Unremarkable. No pulmonary embolism. Aorta: No acute findings. No thoracic aortic aneurysm. Lungs: There is diffuse interlobular septal thickening compatible with edema. There is consolidation within the right lower lobe and middle lobe concerning for pneumonia. There is attenuation of the right mainstem bronchus (image 70 series 3) with infrahilar soft tissue noted (image 53 series 3). Pleural space: There is a small right pleural effusion. No pneumothorax. Heart: There is a small physiologic pericardial effusion. There are coronary vascular calcifications. No evidence of RV dysfunction. Bones/joints: The patient is status post sternotomy. There are degenerative changes of the thoracolumbar spine. No acute fracture. No dislocation. Soft tissues: See above. Lymph nodes: Unremarkable. No enlarged lymph nodes. Tubes, lines and devices: There is partial visualization of a gastrostomy tube. Other findings: The patient is status post transcatheter aortic valve replacement. IMPRESSION: 1. Small right pleural effusion and changes of pulmonary edema with suspected infection in the right lower and middle lobes. 2. Attenuation of the right mainstem bronchus with soft tissue in the right hilum concerning for neoplasm versus confluent lymphadenopathy. Findings are new since the available 09/2021 comparison. In the absence of prior imaging of this finding, PET CT would be the next study of choice. Electronically signed by: Lucien Sandoval MD 05/26/22 01:17 AM
[2022-05-26] MEDS ORDERED: LACTATED RINGER'S 1,000 ML IV ONE (01:49)
[2022-05-26] MEDS ORDERED: STAT IV Infusion **Titration per Protocol STA (01:51)
[2022-05-26] MEDS ORDERED: NOREPINEPHRINE/D5W 4 MG/250 ML PLCT IV SCH (02:00)
[2022-05-26] MEDS ORDERED: VANCOMYCIN CONSULT ACTIVE PRN (02:18)
[2022-05-26] MEDS ORDERED: NITROGLYCERIN SL 0.4 MG/TAB TAB SL PRN (02:18)
[2022-05-26] MEDS ORDERED: VANCOMYCIN HCL 1,000 MG in SODIUM CHLORIDE 0.9% 250 ML IV SCH (02:18)
[2022-05-26] MEDS ORDERED: SODIUM CHLORIDE 0.65% NA SOLN 45 ML (OCEAN) PRN (02:18)
[2022-05-26] MEDS ORDERED: ALBUTEROL HFA 8 GM INHALER INH PRN (02:18)
[2022-05-26] MEDS ORDERED: OXYMETAZOLINE 0.05% 30 ML BTL PRN (02:18)
[2022-05-26] MEDS ORDERED: ALBUT/IPRATROP 3MG/0.5MG NEB 3 ML VIAL NEB PRN (02:38)
[2022-05-26] MEDS ORDERED: LIDOCAINE 2% JELLY 5 ML TUBE EXT ONE (02:45)
[2022-05-26] MEDS ORDERED: VANCOMYCIN HCL 1,250 MG in SODIUM CHLORIDE 0.9% 250 ML IV ONE (03:15)
[2022-05-26 03:27] LABS: iSTAT Allen Test Pass; iSTAT Arterial Blood Gas HCO3 34 meg/L (19-24); iSTAT Arterial Blood Gas pCO2 58 mmHg (35-46); iSTAT Arterial Blood Gas pH 7.38 (7.35-7.45); iSTAT Arterial Blood Gas pO2 142 mmHg (80-95); iSTAT Carbon Dioxide 36 mmol/L (24-31); iSTAT Site L Radial
[2022-05-26 03:33] LABS: Basophils # (auto) 0.05 K/uL (0-0.2); Basophils % (auto) 0.2 %; Eosinophils # (auto) 0.06 K/uL (0-0.50); Eosinophils % (auto) 0.3 %; Hematocrit (blood only) 23.9 % (42.0-52.0); Hemoglobin 7.2 g/dl (14.0-18.0); Immature Granulocytes # (auto) 0.12 K/uL (0.01-0.20); Immature Granulocytes % (auto) 0.6 %; Lymphocytes # (auto) 0.86 K/uL (1.2-3.4); Mean Corpuscular Hemoglobin 28.5 pg (25.0-34.0); Mean Corpuscular Hgb Conc 30.1 g/dL (32.0-36.0); Mean Corpuscular Volume 94.5 fL (80.0-100.0); Mean Platelet Volume 10.1 fL (9.4-12.4); Monocytes # (auto) 1.22 K/uL (0.11-0.59); Monocytes % (auto) 5.6 %; Neutrophils # (auto) 19.29 K/uL (1.40-6.50); Neutrophils % (auto) 89.3 %; Nucleated RBC # (auto) 0.02 K/uL (0-0.12); Nucleated RBC % (auto) 0.1 %; Platelet Count 265 K/uL (130-400); RDW Coefficient of Variation 15.4 % (11.5-14.5); RDW Standard Deviation 53.1 fL (36.4-46.3); Red Blood Count 2.53 M/uL (4.70-6.10)
[2022-05-26] MEDS ORDERED: ACETAMINOPHEN 1,000 MG/100 ML VIAL IV STA (03:35)
[2022-05-26] MEDS: SODIUM CHLORIDE 0.9% 1000ML 1,000 ML IV SCH ×2 (03:43→10:30)
[2022-05-26] MEDS ORDERED: ACETAMINOPHEN 1000 MG/100 ML IV IV ONE (03:47)
[2022-05-26 03:50] LABS: BUN Creatinine Ratio 37.5 (10-20); Calcium 7.6 mg/dl (8.6-10.3); Creatinine Clr Calc Pharmacy 78.2 ml/min; Est GFR (African American) 108.7 ml/min; Est GFR (Non-African American) 93.8 ml/min; Magnesium 1.9 mg/dl (1.7-2.4); Phosphorus 2.3 mg/dl (2.5-4.9); Potassium 3.9 mmol/L (3.5-5.1)
[2022-05-26 03:57] LABS: Troponin I High Sensitivity 12.5 pg/ml (0-20)
[2022-05-26] MEDS: PIPERACILLIN/TAZOBACTAM 4.5 GM in DEXTROSE 5% 100 ML IV SCH ×3 (03:58→20:05)
[2022-05-26 04:08] LABS: Polychromasia 1+
--- NOTE | 2022-05-26 04:10 | History and Physical Report ---
DATE OF ADMISSION: 05/26/2022. CHIEF COMPLAINT: Respiratory distress and hypotension. HISTORY OF PRESENT ILLNESS: This is a 77-year-old male with past medical history significant for chronic respiratory failure with hypoxia and hypercapnia, on home oxygen 2-3 liters, chronic diastolic CHF with EF of 55% on echo in 2020, chronic left bundle-branch block, CAD status post CABG, aortic stenosis, status post bioprosthetic aortic valve replacement, history of COPD, chronic pulmonary aspiration, status post PEG tube placement, hypertension, hyperlipidemia, history of nasopharyngeal cancer, status post chemoradiation in 2013, chronic anemia, hemoglobin baseline at 11 to 13, history of tobacco abuse, chronic kidney disease stage III, sensorineural hearing loss of both ears. Comes because of shortness of breath and cough and hypoxia at home. The patient in the end of February and March had a couple of admissions for aspiration pneumonia. It looks like at home the patient was desaturating at 70%. Son increased oxygen to 5 liters, but he was not getting better, was brought in here. Currently, he is placed on nonrebreather and saturating okay on nonrebreather. But his blood pressure dropped; even after 2 liters of fluids, he was still low and he was started on Levophed drip in the ER. The patient is alert and awake, able to give his history. Says he has cough for ew days, not able to bring any phlegm. Denies any fevers, no chest pain, no nausea. HAs very dry mouth. 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 All nutrition and meds through peg tube . He sometimes uses ice chips in the mouth and spits them down, does not swallow. Denies any abdominal pain. No diarrhea or constipation. Normal bladder movements. Ambulates with a walker. Lives alone. Son lives close by. When he takes off the nonrebreather, his oxygen saturation is dropping in to 70%. In the ER, his white count is 18, hemoglobin 7.7. Lactate was 1. Procalcitonin was 0.6. BNP 264. CTA chest is showing ," small right pleural effusion, changes of pulmonary edema with suspected infection of the right lower and middle lobes, attenuation of the right mainstem bronchus with soft tissue in the right hilum, concerning for neoplasm versus confluent lymphadenopathy. Findings are new since September 2021 . In the absence of prior imaging of this finding, PET/CT would be the next study of choice" as per radiology. ALLERGIES: No known drug allergies. PAST MEDICAL HISTORY: As mentioned above. PAST SURGICAL HISTORY: Alveoloplasty with extraction, right carotid catheter placement, colonoscopy, CABG, EGD, right shoulder reconstruction following a dislocation, nasal sinus endoscopy, cataract surgery, tonsillectomy, bioprosthetic aortic valve replacement, surgical removal of erupted tooth. MEDICATIONS: The patient is on albuterol 2 puffs inhalation q. 6 hours p.r.n., aspirin 81 mg p.o. daily, atorvastatin 40 mg p.o. daily, clotrimazole topical b.i.d., vitamin B12 1000 mcg daily, folic acid 1 mg daily, DuoNeb inhalation b.i.d., iron infusion as directed, nitroglycerin 0.4 mg sublingual p.r.n., Nutren 2.0 feeding tube q.i.d., Afrin 2 sprays p.r.n. nosebleeds, saline nasal spray 2 sprays q. 4 hours p.r.n., sodium chloride 4 mL neb b.i.d., triamcinolone topical b.i.d., water for irrigation sterile 120 mL 5 times a day. FAMILY HISTORY: Significant for mother has arthritis, at the age of 93; father had liver cancer. SOCIAL HISTORY: , lives alone. Son lives close by. Former smoker, quit in 2013, smoked 1 pack a day for 50 years. No alcohol use. No drug use. REVIEW OF SYSTEMS: As per HPI. Rest of review of systems is negative. PHYSICAL EXAMINATION: GENERAL: The patient is of moderate build, seems to be in mild respiratory distress. VITAL SIGNS: Temperature 37.4, pulse 70, respiratory rate 18, blood pressure 107/60, oxygen 100% on 12 liters nonrebreather. HEENT: Pupils equal, round and reactive to light. Oral mucosa dry. NECK: No JVD. No neck masses. CARDIOVASCULAR: S1 and S2 heard. Regular rate and rhythm. No murmur, no gallop. RESPIRATORY SYSTEM: Normal AP diameter. No accessory muscle use. No obvious wheezing or crackles. ABDOMEN: Soft, bowel sounds present, nontender, no distentions. PEG tube site, no erythema or drainage seen. CENTRAL NERVOUS SYSTEM: Alert and oriented. Speech is clear. Insight is okay. Obeys simple commands. Moves extremities. EXTREMITIES: No erythema or edema seen. LABORATORY DATA: WBC 18, hemoglobin 7.7, hematocrit 25.7, platelets 277. Sodium 139, potassium 3.9, chloride 99, CO2 of 37, BUN 27, creatinine 0.7, serum glucose 171. Lactate 1, calcium 8.4, magnesium 1.9, total bilirubin 0.4, AST 27, ALT 11, alkaline phosphatase 89. Troponin I high sensitivity 14.6. BNP 264. Procalcitonin 0.66. TSH is 2.5. Random cortisol 24. SARS-CoV-2 rapid test negative. IMAGING DATA: CTA of the chest, small right pleural effusion and changes of pulmonary edema with suspected infection of the right lower and middle lobes. Attenuation of the right mainstem bronchus with soft tissue in the right hilum concerning for neoplasm versus confluent lymphadenopathy. Findings are new since available September 2021 In the absence of prior imaging of the findings, PET/CT would be the next study of choice. EKG: Normal sinus rhythm at a rate of 96, no significant change was found. ASSESSMENT AND PLAN: This is a 77-year-old male who presents with shortness of breath, hypoxia, and also found to be hypotensive. 1. Shortness of breath, hypoxia, respiratory distress, possibly from aspiration pneumonitis: He also has some pulmonary edema on the CAT scan. Will also consider getting an echocardiogram. Currently, getting fluids for sepsis. Continue current oxygenation. Getting antibiotics, vancomycin and Zosyn. Follow the cultures. Closely monitor in the ICU. 2. Hypotension, possible sepsis: Currently, requiring pressors, IV fluids and antibiotics. Will closely monitor in the ICU. 3. Questionable new lung lesions: Needs followup. 4. Anemia: Hemoglobin 7.7. His hemoglobin was 9.9 on 05/06/2022. Will check stool for Hemoccult, iron studies, vitamin B12 and folate levels. 5. History of chronic obstructive pulmonary disease: Will place him on nebs around the clock. Closely monitor 6. History of nasopharyngeal cancer, status post chemoradiation, status post PEG tube placement: All the medicines and nutrition through the PEG tube.Nutrition consult. 7. History of coronary artery disease: Status post coronary artery bypass graft. On statin and aspirin.Need to verify with son if aspirin is stopped or still on it. 8. History of bioprosthetic aortic valve replacement. 9. Hyperlipidemia: On statin. 10. Chronic diastolic congestive heart failure: Will monitor for any volume overload. 11. Chronic kidney disease stage III: Currently with creatinine of 0.7. Will follow the labs. 12. Deep venous thrombosis prophylaxis: Placed on Lovenox. Will monitor the H and H. DISPOSITION: Closely monitor in the ICU. Level 1 full code. Job ID: [id number] MTDD
[2022-05-26 04:11] LABS: Ferritin 280.8 ng/ml (8-388)
[2022-05-26 04:16] LABS: Vitamin B12 1360 pg/ml (180-914)
[2022-05-26] MEDS: SODIUM CHLOR 7% 4 ML NEB NEB SCH ×2 (07:35→19:43)
[2022-05-26] MEDS: ALBUT/IPRATROP 3MG/0.5MG NEB 3 ML VIAL NEB SCH ×4 (07:35→19:44)
--- NOTE | 2022-05-26 08:04 | XRay Report ---
XR chest 1V portable HISTORY: sob, hypoxia COMPARISON: None. FINDINGS: No pneumothorax. Trace right pleural effusion. Poststernotomy changes. The heart is top nor mal in size. There is mild central pulmonary vascular congestion without overt edema. Patchy right ba silar airspace opacities are noted. IMPRESSION: 1. Patchy right base airspace opacities. This may represent atelectasis or a pneumonia. 2. Mild pulmonary vascular congestion and a trace right pleural effusion. ACT 112: Negative or not required by law. Electronically signed by: Ritesh Quevedo M.D. 05/26/2022 8:03 AM
[2022-05-26] MEDS: FOLIC ACID 1 MG TAB PEG SCH (08:20)
[2022-05-26] MEDS: TUBE FEEDING WATER FLUSH PEG SCH ×4 (08:20→20:05)
[2022-05-26] MEDS: ICU Protocol for HYPERglycemia SCH ×4 (08:21→20:56)
[2022-05-26] MEDS ORDERED: ENOXAPARIN INJ 40 MG/0.4 ML SYR SQ SCH (09:00)
[2022-05-26] MEDS ORDERED: TRIAMCINOLONE ACET 0.1% CR 15 GM TUBE TOP SCH (09:00)
[2022-05-26] MEDS ORDERED: CYANOCOBALAMIN (B-12) 500 MCG TABLET PEG SCH (09:00)
--- NOTE | 2022-05-26 09:00 | Critical Care Progress Note ---
Date of Service May 26, 2022 Assessment & Plan (1) Hypoxia: (2) Acute hyponatremia: (3) Shock: (4) Hyperlipidemia: (5) Hypertension: (6) History of nasopharyngeal cancer: (7) Hx of aortic valve replacement: (8) CAD (coronary artery disease): (9) Sepsis: (10) LBBB (left bundle branch block): Plan Reason Critically Ill: Patient presents hypoxic, hypotensive- initiated on vasopressors in EMD. Concern for septic shock secondary to aspiration PNA. Neuro - No acute needs CAM ICU: Negative Cardiac - Shock, HX CABG, CAD, AVR - Shock- multifactorial at this time to include hypovolemia with sepsis - will provide another liter of crystalloid as volume responsive and still with clinical picture of hypovolemia - continue with asa, and statin- not on BB - Levophed for MAPS >65 - random cortisol 25 Respiratory - Aspiration pneumonia, plueral effusion, hypoxia with chronic home o2 use, abnormal CT scan of chest - Aspiration pneumonia right middle/lower lobes - hypoxia without respiratory failure- wean down oxygen ABG stable - Pulmonary toilet with hypertonic saline and albuterol nebulizers - patient may swab mouth and gargle to help with clearing secretions - Continue Zosyn- de-escalate as able - CT scan with attenuation of the right mainstem bronchus- new since 09/28- PET with pulmonary consultation needed for follow up GI - Chronic malnutrition - NPO for now- - PEG button noted without abnormalities RENAL/LYTES - JULES - increase in BUN with mild increase in his COPY EDITOR - Resolved folliwng IVF - wean pressors - Bowman placed for accurate MARTA while on pressors - Patient requested bowman be removed- as his morning labs have improved and he has made adequate urine, will discontinue ENDO - No acute needs HEME - Chronic anemia, normocytic - Patient reports that he gets iron transfusions- anemia labs sent by primary service - reports next transfusion of iron - Sunday 05/28 - Endorses no change in stools - Transfuse if <7 or symptomatic ID - Aspiration pneumnia, - Continue Zosyn - broaden out if clinical course worsens LINES/IV ACCESS - PIV, Bowman Continue use of these lines DVT PROPHYLAXIS - SCDS, Lovenox DISPO - ICU while on pressors I have personally spent 40 minutes of critical care time in the direct management of this patient. This is a life/limb threatening event. This includes time spent evaluating patient, direct bedside care, chart review, placing orders, interpretation of diagnostic studies, discussion with consultants, patient, and family members, as well as other required patient management activities. This time is exclusive of all separately billable procedures, and teaching time and separate from and in addition to any other critical care service time. Thank you for allowing us to participate in the care of this patient. Please refer to my attending physician's documentation for any further recommendations. Admission and Anticipated Discharge Date Admission Date: May 26, 2022 Results & Data Results & Data Vital Signs (Past 12 Hours) Vital Signs Temp Pulse Pulse Resp BP BP Pulse Ox 05/26/22 07:52 05/26/22 07:37 60 18 100 05/26/22 06:30 75 15 136/50 L 05/26/22 06:16 75 18 163/63 H 99 05/26/22 06:00 75 21 142/101 H 97 05/26/22 05:45 74 16 155/92 H 98 05/26/22 05:30 74 20 156/66 H 05/26/22 05:15 75 20 93/79 L 100 05/26/22 05:00 72 15 149/74 H 92 05/26/22 05:38 05/26/22 04:45 66 18 134/70 05/26/22 04:30 70 17 157/56 H 95 05/26/22 04:15 68 15 132/70 05/26/22 04:00 69 16 120/52 L 82 L 05/26/22 03:45 66 16 136/65 95 05/26/22 03:30 65 15 137/67 97 05/26/22 03:15 68 21 144/70 H 78 L 05/26/22 03:00 71 22 137/47 L 86 L 05/26/22 02:45 69 24 153/63 H 92 05/26/22 02:13 76 18 111/62 94 05/26/22 02:18 75 05/26/22 02:18 05/26/22 02:18 35.8 C L 19 137/47 L 100 05/26/22 01:54 05/26/22 01:46 123/47 L 05/26/22 01:46 74 14 96 05/26/22 01:40 68 18 100 05/26/22 01:40 104/57 L 05/26/22 01:37 111/55 L 05/26/22 01:37 67 21 100 05/26/22 01:30 70 28 H 84 L 05/26/22 01:30 88/48 L 05/26/22 01:25 108/60 05/26/22 01:25 66 15 100 05/26/22 01:20 68 22 97 05/26/22 01:20 123/59 L 05/26/22 01:15 103/46 L 05/26/22 01:15 68 15 100 05/26/22 01:10 67 15 70 L 05/26/22 01:10 107/55 L 05/26/22 01:05 122/56 L 05/26/22 01:05 69 14 88 L 05/26/22 01:00 103/60 05/26/22 00:50 106/42 L 05/26/22 00:45 108/55 L 05/26/22 00:40 103/56 L 05/26/22 01:00 112/46 L 05/26/22 00:40 70 18 114/62 100 05/26/22 00:35 78 17 93/51 L 98 05/26/22 00:32 65 21 75/49 L 79 L 05/26/22 00:30 68 26 H 79/48 L 86 L 05/26/22 00:25 70 15 92/49 L 97 05/26/22 00:20 71 17 95/51 L 100 05/26/22 00:15 71 6 L 100/51 L 99 05/25/22 23:29 70 05/26/22 00:10 67 17 98/51 L 99 05/26/22 00:05 69 26 H 85/42 L 98 05/26/22 00:00 71 18 104/51 L 100 05/25/22 23:55 73 20 88/46 L 100 05/25/22 23:50 72 19 98/52 L 100 05/25/22 23:45 71 20 93/48 L 100 05/25/22 23:40 73 18 93/53 L 98 05/25/22 23:35 73 16 99/52 L 99 05/25/22 23:30 70 20 83/44 L 96 05/25/22 23:25 63 7 L 95/43 L 99 05/25/22 23:20 89/49 L 100 05/25/22 23:15 94/49 L 90 05/25/22 23:10 89/47 L 91 05/25/22 23:05 76 19 97/49 L 100 05/25/22 23:00 78 19 101/56 L 100 05/25/22 22:55 79 16 98/53 L 100 05/25/22 22:50 72 17 98/54 L 100 05/25/22 22:47 81 20 91/48 L 99 05/25/22 22:45 79 19 81/46 L 100 05/25/22 22:40 75 19 75/40 L 100 05/25/22 22:35 79 22 78/44 L 100 05/25/22 22:30 82 17 81/45 L 100 05/25/22 22:25 72 18 85/45 L 100 05/25/22 22:20 77 18 85/47 L 99 05/25/22 22:14 76 19 81/44 L 100 05/25/22 22:10 77 21 87/47 L 100 05/25/22 22:05 83 18 74/39 L 94 05/25/22 22:00 83 19 83/43 L 100 05/25/22 21:55 80 20 81/45 L 100 05/25/22 21:50 74 19 84/43 L 100 05/25/22 21:45 91 H 25 H 77/43 L 100 05/25/22 21:40 81 17 78/42 L 100 05/25/22 21:35 82 21 71/43 L 95 05/25/22 21:30 87 20 81/40 L 82 L 05/25/22 21:25 88 22 92 05/25/22 21:25 62/34 L 05/25/22 21:20 90 17 75/39 L 92 05/25/22 21:18 110 H 22 67/34 L 92 05/25/22 21:17 94 H 26 H 70/37 L 90 05/25/22 21:14 91 H 18 98 05/25/22 21:10 92 H 20 98 05/25/22 21:02 92 H 16 71/38 L 99 Pulse Ox O2 Del Method O2 Del Method O2 Flow Rate O2 Flow Rate 05/26/22 07:52 Oxymask 8 05/26/22 07:37 Oxymask 8 05/26/22 06:30 05/26/22 06:16 05/26/22 06:00 05/26/22 05:45 05/26/22 05:30 05/26/22 05:15 05/26/22 05:00 05/26/22 05:38 93 Oxymask 8 05/26/22 04:45 05/26/22 04:30 05/26/22 04:15 05/26/22 04:00 05/26/22 03:45 05/26/22 03:30 05/26/22 03:15 05/26/22 03:00 05/26/22 02:45 05/26/22 02:13 05/26/22 02:18 05/26/22 02:18 Non-rebreather 12 05/26/22 02:18 Non-rebreather 12 05/26/22 01:54 Non-rebreather 12 05/26/22 01:46 05/26/22 01:46 05/26/22 01:40 05/26/22 01:40 05/26/22 01:37 05/26/22 01:37 05/26/22 01:30 05/26/22 01:30 05/26/22 01:25 05/26/22 01:25 05/26/22 01:20 05/26/22 01:20 05/26/22 01:15 05/26/22 01:15 05/26/22 01:10 05/26/22 01:10 05/26/22 01:05 05/26/22 01:05 05/26/22 01:00 05/26/22 00:50 05/26/22 00:45 05/26/22 00:40 05/26/22 01:00 05/26/22 00:40 05/26/22 00:35 05/26/22 00:32 05/26/22 00:30 05/26/22 00:25 05/26/22 00:20 05/26/22 00:15 05/25/22 23:29 05/26/22 00:10 Non-rebreather 12 05/26/22 00:05 05/26/22 00:00 05/25/22 23:55 05/25/22 23:50 05/25/22 23:45 05/25/22 23:40 05/25/22 23:35 05/25/22 23:30 05/25/22 23:25 05/25/22 23:20 05/25/22 23:15 05/25/22 23:10 05/25/22 23:05 Non-rebreather 15 05/25/22 23:00 05/25/22 22:55 05/25/22 22:50 05/25/22 22:47 05/25/22 22:45 05/25/22 22:40 05/25/22 22:35 05/25/22 22:30 05/25/22 22:25 05/25/22 22:20 05/25/22 22:14 05/25/22 22:10 05/25/22 22:05 05/25/22 22:00 05/25/22 21:55 05/25/22 21:50 05/25/22 21:45 05/25/22 21:40 05/25/22 21:35 05/25/22 21:30 05/25/22 21:25 05/25/22 21:25 05/25/22 21:20 05/25/22 21:18 05/25/22 21:17 05/25/22 21:14 05/25/22 21:10 05/25/22 21:02 Critical Care Results & Data Vital Signs (Past 12 Hours) Vital Signs Temp Pulse Pulse Resp BP BP Pulse Ox 05/26/22 07:52 05/26/22 07:37 60 18 100 05/26/22 06:30 75 15 136/50 L 05/26/22 06:16 75 18 163/63 H 99 05/26/22 06:00 75 21 142/101 H 97 05/26/22 05:45 74 16 155/92 H 98 05/26/22 05:30 74 20 156/66 H 05/26/22 05:15 75 20 93/79 L 100 05/26/22 05:00 72 15 149/74 H 92 05/26/22 05:38 05/26/22 04:45 66 18 134/70 05/26/22 04:30 70 17 157/56 H 95 05/26/22 04:15 68 15 132/70 05/26/22 04:00 69 16 120/52 L 82 L 05/26/22 03:45 66 16 136/65 95 05/26/22 03:30 65 15 137/67 97 05/26/22 03:15 68 21 144/70 H 78 L 05/26/22 03:00 71 22 137/47 L 86 L 05/26/22 02:45 69 24 153/63 H 92 05/26/22 02:13 76 18 111/62 94 05/26/22 02:18 75 05/26/22 02:18 05/26/22 02:18 35.8 C L 19 137/47 L 100 05/26/22 01:54 05/26/22 01:46 123/47 L 05/26/22 01:46 74 14 96 05/26/22 01:40 68 18 100 05/26/22 01:40 104/57 L 05/26/22 01:37 111/55 L 05/26/22 01:37 67 21 100 05/26/22 01:30 70 28 H 84 L 05/26/22 01:30 88/48 L 05/26/22 01:25 108/60 05/26/22 01:25 66 15 100 05/26/22 01:20 68 22 97 05/26/22 01:20 123/59 L 05/26/22 01:15 103/46 L 05/26/22 01:15 68 15 100 05/26/22 01:10 67 15 70 L 05/26/22 01:10 107/55 L 05/26/22 01:05 122/56 L 05/26/22 01:05 69 14 88 L 05/26/22 01:00 103/60 05/26/22 00:50 106/42 L 05/26/22 00:45 108/55 L 05/26/22 00:40 103/56 L 05/26/22 01:00 112/46 L 05/26/22 00:40 70 18 114/62 100 05/26/22 00:35 78 17 93/51 L 98 05/26/22 00:32 65 21 75/49 L 79 L 05/26/22 00:30 68 26 H 79/48 L 86 L 05/26/22 00:25 70 15 92/49 L 97 05/26/22 00:20 71 17 95/51 L 100 05/26/22 00:15 71 6 L 100/51 L 99 05/25/22 23:29 70 05/26/22 00:10 67 17 98/51 L 99 05/26/22 00:05 69 26 H 85/42 L 98 05/26/22 00:00 71 18 104/51 L 100 05/25/22 23:55 73 20 88/46 L 100 05/25/22 23:50 72 19 98/52 L 100 05/25/22 23:45 71 20 93/48 L 100 05/25/22 23:40 73 18 93/53 L 98 05/25/22 23:35 73 16 99/52 L 99 05/25/22 23:30 70 20 83/44 L 96 05/25/22 23:25 63 7 L 95/43 L 99 05/25/22 23:20 89/49 L 100 05/25/22 23:15 94/49 L 90 05/25/22 23:10 89/47 L 91 05/25/22 23:05 76 19 97/49 L 100 05/25/22 23:00 78 19 101/56 L 100 05/25/22 22:55 79 16 98/53 L 100 05/25/22 22:50 72 17 98/54 L 100 05/25/22 22:47 81 20 91/48 L 99 05/25/22 22:45 79 19 81/46 L 100 05/25/22 22:40 75 19 75/40 L 100 05/25/22 22:35 79 22 78/44 L 100 05/25/22 22:30 82 17 81/45 L 100 05/25/22 22:25 72 18 85/45 L 100 05/25/22 22:20 77 18 85/47 L 99 05/25/22 22:14 76 19 81/44 L 100 05/25/22 22:10 77 21 87/47 L 100 05/25/22 22:05 83 18 74/39 L 94 05/25/22 22:00 83 19 83/43 L 100 05/25/22 21:55 80 20 81/45 L 100 05/25/22 21:50 74 19 84/43 L 100 05/25/22 21:45 91 H 25 H 77/43 L 100 05/25/22 21:40 81 17 78/42 L 100 05/25/22 21:35 82 21 71/43 L 95 05/25/22 21:30 87 20 81/40 L 82 L 05/25/22 21:25 88 22 92 05/25/22 21:25 62/34 L 05/25/22 21:20 90 17 75/39 L 92 05/25/22 21:18 110 H 22 67/34 L 92 05/25/22 21:17 94 H 26 H 70/37 L 90 05/25/22 21:14 91 H 18 98 05/25/22 21:10 92 H 20 98 Pulse Ox O2 Del Method O2 Del Method O2 Flow Rate O2 Flow Rate 05/26/22 07:52 Oxymask 8 05/26/22 07:37 Oxymask 8 05/26/22 06:30 05/26/22 06:16 05/26/22 06:00 05/26/22 05:45 05/26/22 05:30 05/26/22 05:15 05/26/22 05:00 05/26/22 05:38 93 Oxymask 8 05/26/22 04:45 05/26/22 04:30 05/26/22 04:15 05/26/22 04:00 05/26/22 03:45 05/26/22 03:30 05/26/22 03:15 05/26/22 03:00 05/26/22 02:45 05/26/22 02:13 05/26/22 02:18 05/26/22 02:18 Non-rebreather 12 05/26/22 02:18 Non-rebreather 05/26/22 01:54 Non-rebreather 12 05/26/22 01:46 05/26/22 01:46 05/26/22 01:40 05/26/22 01:40 05/26/22 01:37 05/26/22 01:37 05/26/22 01:30 05/26/22 01:30 05/26/22 01:25 05/26/22 01:25 05/26/22 01:20 05/26/22 01:20 05/26/22 01:15 05/26/22 01:15 05/26/22 01:10 05/26/22 01:10 05/26/22 01:05 05/26/22 01:05 05/26/22 01:00 05/26/22 00:50 05/26/22 00:45 05/26/22 00:40 05/26/22 01:00 05/26/22 00:40 05/26/22 00:35 05/26/22 00:32 05/26/22 00:30 05/26/22 00:25 05/26/22 00:20 05/26/22 00:15 05/25/22 23:29 05/26/22 00:10 Non-rebreather 12 05/26/22 00:05 05/26/22 00:00 05/25/22 23:55 05/25/22 23:50 05/25/22 23:45 05/25/22 23:40 05/25/22 23:35 05/25/22 23:30 05/25/22 23:25 05/25/22 23:20 05/25/22 23:15 05/25/22 23:10 05/25/22 23:05 Non-rebreather 15 05/25/22 23:00 05/25/22 22:55 05/25/22 22:50 05/25/22 22:47 05/25/22 22:45 05/25/22 22:40 05/25/22 22:35 05/25/22 22:30 05/25/22 22:25 05/25/22 22:20 05/25/22 22:14 05/25/22 22:10 05/25/22 22:05 05/25/22 22:00 05/25/22 21:55 05/25/22 21:50 05/25/22 21:45 05/25/22 21:40 05/25/22 21:35 05/25/22 21:30 05/25/22 21:25 05/25/22 21:25 05/25/22 21:20 05/25/22 21:18 05/25/22 21:17 05/25/22 21:14 05/25/22 21:10 Lab & Micro Results (Past 24 Hours) RBC 2.53 M/uL (4.70-6.10) L 05/26/22 WBC 21.60 K/ul (4.8-10.8) H 05/26/22 Hgb 7.2 g/dl (14.0-18.0) L 05/26/22 Hct 23.9 % (42.0-52.0) L 05/26/22 MCV 94.5 fL (80.0-100.0) 05/26/22 MCH 28.5 pg (25.0-34.0) 05/26/22 MCHC 30.1 g/dL (32.0-36.0) L 05/26/22 RDW Standard Deviation 53.1 fL (36.4-46.3) H 05/26/22 RDW Coefficient of Variation 15.4 % (11.5-14.5) H 05/26/22 Plt Count 265 K/uL (130-400) 05/26/22 MPV 10.1 fL (9.4-12.4) 05/26/22 Nucleated Red Blood Cells % (auto) 0.1 % 05/26 Nucleated RBC Absolute Count (auto) 0.02 K/uL (0-0.12) 05/08 10/30 Neutrophils (%) (Auto) 89.3 % 05/26/22 Lymphocytes (%) (Auto) 4.0 % 05/26/22 Monocytes # (Auto) 1.22 K/uL (0.11-0.59) H 05/26/22 Eosinophils # (Auto) 0.06 K/uL (0-0.50) 05/26/22 Immature Granulocyte % (Auto) 0.6 % 05/26/22 Neutrophils # (Auto) 19.29 K/uL (1.40-6.50) H 05/26/22 Lymphocytes # (Auto) 0.86 K/uL (1.2-3.4) L 05/26/22 Monocytes # (Auto) 1.22 K/uL (0.11-0.59) H 05/26/22 Eosinophils # (Auto) 0.06 K/uL (0-0.50) 05/26/22 Basophils # (Auto) 0.05 K/uL (0-0.2) 05/26/22 Immature Granulocyte # (Auto) 0.12 K/uL (0.01-0.20) 3 Polychromasia 1+ 05/26/22 Na 139 mmol/L (136-145) 05/26/22 K 3.9 mmol/L (3.5-5.1) 05/26/22 Cl 103 mmol/L (98-107) 05/26/22 CO2 30 mmol/L (21-32) 05/26/22 Anion Gap 6 (3-11) 05/26/22 BUN 24 mg/dl (6-23) H 05/26/22 Creatinine 0.64 mg/dl (0.6-1.4) 05/26/22 Estimated GFR ( Amer) 108.7 ml/min 05/26/22 Estimated GFR (Non-Af Amer) 93.8 ml/min 05/26/22 BUN/Creatinine Ratio 37.5 (10-20) H 05/26/22 Glu 104 mg/dl (70-99(Fasting)) H 05/26/22 Ca 7.6 mg/dl (8.6-10.3) L 05/26/22 Phosphorus Level 2.3 mg/dl (2.5-4.9) L 05/26/22 Total Bilirubin 0.4 mg/dl (0.2-1.0) 05/25/22 AST 27 U/L (13-39) 05/25/22 ALT 11 U/L (7-52) 05/25/22 Alkaline Phosphatase 89 U/L (34-104) 05/25/22 TP 6.8 gm/dl (6.0-8.3) 05/25/22 Albumin 3.0 gm/dl (3.4-5.0) L 05/25/22 Globulin 3.8 gm/dl (2.5-4.0) 05/25/22 Albumin/Globulin Ratio 0.8 (0.9-2) L 05/25/22 Mg 1.9 mg/dl (1.7-2.4) 05/26/22 02:54 Calcium Level 7.6 mg/dl (8.6-10.3) L 05/26/22 02:54 Reed Test Pass 05/26/22 03:11 Diagnostic Findings (Past 24 Hours) Chest X-Ray 05/25/22 19:47 XR chest 1V portable HISTORY: sob, hypoxia COMPARISON: None. FINDINGS: No pneumothorax. Trace right pleural effusion. Poststernotomy changes. The heart is top normal in size. There is mild central pulmonary vascular congestion without overt edema. Patchy right basilar airspace opacities are noted. IMPRESSION: 1. Patchy right base airspace opacities. This may represent atelectasis or a pneumonia. 2. Mild pulmonary vascular congestion and a trace right pleural effusion. ACT 112: Negative or not required by law. Electronically signed by: Ritesh Quevedo M.D. 05/26/2022 8:03 AM Chest CTA 05/26/22 00:16 Exam(s): CTA CHEST IV Amt: 114 ml optiray 320 EXAM: CT Angiography Chest With Intravenous Contrast CLINICAL HISTORY: Reason for exam: PE. TECHNIQUE: Axial computed tomographic angiography images of the chest with intravenous contrast. CTDI is 21.19 mGy and DLP is 249.68 mGy-cm. Automated exposure control was utilized for the study. A dose lowering technique was utilized adhering to the principles of ALARA. MIP reconstructed images were created and reviewed. COMPARISON: Dated 09/07/21 FINDINGS: Pulmonary arteries: Unremarkable. No pulmonary embolism. Aorta: No acute findings. No thoracic aortic aneurysm. Lungs: There is diffuse interlobular septal thickening compatible with edema. There is consolidation within the right lower lobe and middle lobe concerning for pneumonia. There is attenuation of the right mainstem bronchus (image 70 series 3) with infrahilar soft tissue noted (image 53 series 3). Pleural space: There is a small right pleural effusion. No pneumothorax. Heart: There is a small physiologic pericardial effusion. There are coronary vascular calcifications. No evidence of RV dysfunction. Bones/joints: The patient is status post sternotomy. There are degenerative changes of the thoracolumbar spine. No acute fracture. No dislocation. Soft tissues: See above. Lymph nodes: Unremarkable. No enlarged lymph nodes. Tubes, lines and devices: There is partial visualization of a gastrostomy tube. Other findings: The patient is status post transcatheter aortic valve replacement. IMPRESSION: 1. Small right pleural effusion and changes of pulmonary edema with suspected infection in the right lower and middle lobes. 2. Attenuation of the right mainstem bronchus with soft tissue in the right hilum concerning for neoplasm versus confluent lymphadenopathy. Findings are new since the available 09/2021 comparison. In the absence of prior imaging of this finding, PET CT would be the next study of choice. Electronically signed by: Lucien Sandoval MD 05/26/22 01:17 AM I & O Totals 24 Hours 05/25/22 05/26/22 05/27/22 06:59 06:59 06:59 Intake Total 3506.56 / 3506.56 8.925 / 8.925 Output Total 400 / 400 Balance 3106.56 / 3106.56 8.925 / 8.925 Cumulative 05/25/22 19:07 thru 05/26/22 07:12 Intake Total 3515.485 Output Total 400 Balance 3115.485 RT Ventilator Mngmt (Last Documented) Ventilator Ordered Settings Respiratory Rate 18 05/26/22 07:37 Ventilator - PT Measurements Respiratory Rate 18 Coding Diagnoses Hypoxia R09.02 Acute hyponatremia E87.1 Shock R57.9 Hyperlipidemia E78.5 Hypertension I10 History of nasopharyngeal cancer Z85.819 Hx of aortic valve replacement Z95.2 CAD (coronary artery disease) I25.10 Sepsis A41.9 Sepsis acute organ dysfunction status: unspecified Sepsis type: sepsis due to unspecified organism LBBB (left bundle branch block) I44.7 (9) Sepsis Sepsis acute organ dysfunction status: unspecified Sepsis type: sepsis due to unspecified organism Qualified Code(s): A41.9 - Sepsis, unspecified organism
[2022-05-26] MEDS ORDERED: ENOXAPARIN INJ 40 MG/0.4 ML SYR SQ ONE (09:45)
[2022-05-26] MEDS: ASPIRIN 81 MG CHEW PEG SCH (11:07)
[2022-05-26] MEDS: NOREPINEPHRINE/D5W 4 MG/250 ML PLCT IV SCH (12:25)
--- NOTE | 2022-05-26 13:18 | Electrocardiogram Report ---
Test Reason : Blood Pressure : / mmHG Vent. Rate : 096 BPM Atrial Rate : 096 BPM P-R Int : 160 ms QRS Dur : 070 ms QT Int : 322 ms P-R-T Axes : 055 056 066 degrees QTc Int : 406 ms Normal sinus rhythm Low voltage QRS Borderline ECG When compared with ECG of 17-APR-2022 09:20, No significant change was found Confirmed by Figueroa Correa ([id number]) on 05/26/2022 1:17:53 PM Referred By: REFERRED SELF Confirmed By:Davonte Correa
--- NOTE | 2022-05-26 13:27 | Pharmacy Report ---
Pharmacy PK ABX Note - Date of Service May 26, 2022 - Assessment and Plan Assessment 77 year old M receiving with extensive past medical history including nasopharyngeal cancer w/ past chemo/radiation treatment, CABG, COPD, apiration pneumonia w/ PEG placement for chronic aspiration. He is currently recieving vancomcyin/zosyn for possible aspiration pneumonia. MRSA nasal swab was negative in March, new swab pending. CT with new findings "concerning for neoplasm versus confluent lymphadenopathy". Cultures pending. Vancomycin entered as empiric-48 hours for now. Plan Vancomycin * Loading dose: 1250 mg IV x 1 * Maintenance dose: 750 mg IV every 12 hours * Regimen is predicted to achieve target AUC/LUIS of 400-600 mg/L.hr * Random level to be ordered if continued >48 hours Pharmacy will continue to follow and will adjust dose/frequency as necessary. Thank you. Pharmacy has transitioned to AUC monitoring for vancomycin. AUC/LUIS is the preferred PK/PD target and is associated with decreased risk of nephrotoxicity compared to traditional trough targets.
[2022-05-26] MEDS: VANCOMYCIN HCL 750 MG in SODIUM CHLORIDE 0.9% 250 ML IV SCH (15:28)
[2022-05-26] MEDS ORDERED: NUTREN LIQD 2.0 1,000 ML BAG PEG SCH (16:00)
[2022-05-26] MEDS: ATORVASTATIN 40 MG TAB PEG SCH (20:05)
[2022-05-27] MEDS: TUBE FEEDING WATER FLUSH PEG SCH ×4 (00:26→18:43)
[2022-05-27] MEDS: NOREPINEPHRINE/D5W 4 MG/250 ML PLCT IV SCH (00:40)
[2022-05-27] MEDS: PIPERACILLIN/TAZOBACTAM 4.5 GM in DEXTROSE 5% 100 ML IV SCH ×3 (03:53→21:36)
[2022-05-27] MEDS: VANCOMYCIN HCL 750 MG in SODIUM CHLORIDE 0.9% 250 ML IV SCH (03:53)
[2022-05-27 06:01] LABS: Calcium 7.6 mg/dl (8.6-10.3); Magnesium 1.8 mg/dl (1.7-2.4); Potassium 3.4 mmol/L (3.5-5.1)
[2022-05-27 06:03] LABS: Hematocrit (blood only) 19.7 % (42.0-52.0); Mean Corpuscular Hemoglobin 28.6 pg (25.0-34.0); Mean Corpuscular Hgb Conc 30.5 g/dL (32.0-36.0); Mean Corpuscular Volume 93.8 fL (80.0-100.0); Mean Platelet Volume 10.3 fL (9.4-12.4); Platelet Count 215 K/uL (130-400); RDW Coefficient of Variation 15.3 % (11.5-14.5); RDW Standard Deviation 52.4 fL (36.4-46.3)
[2022-05-27 06:07] LABS: Creatinine Clr Calc Pharmacy 81.7 ml/min; Est GFR (African American) 111.6 ml/min; Est GFR (Non-African American) 96.3 ml/min; Phosphorus 2.5 mg/dl (2.5-4.9)
[2022-05-27 06:15] LABS: Basophils # (auto) 0.03 K/uL (0-0.2); Basophils % (auto) 0.3 %; Eosinophils # (auto) 0.21 K/uL (0-0.50); Eosinophils % (auto) 2.3 %; Immature Granulocytes # (auto) 0.18 K/uL (0.01-0.20); Lymphocytes # (auto) 0.46 K/uL (1.2-3.4); Lymphocytes % (auto) 5.1 %; Monocytes # (auto) 0.69 K/uL (0.11-0.59); Monocytes % (auto) 7.6 %; Neutrophils # (auto) 7.53 K/uL (1.40-6.50); Neutrophils % (auto) 82.7 %; Polychromasia 1+
[2022-05-27] MEDS: ICU Protocol for HYPERglycemia SCH ×2 (07:30→11:35)
[2022-05-27] MEDS: SODIUM CHLOR 7% 4 ML NEB NEB SCH ×2 (07:32→19:14)
[2022-05-27] MEDS: ALBUT/IPRATROP 3MG/0.5MG NEB 3 ML VIAL NEB SCH ×4 (07:32→19:14)
[2022-05-27] MEDS: FOLIC ACID 1 MG TAB PEG SCH (09:02)
[2022-05-27] MEDS: ASPIRIN 81 MG CHEW PEG SCH (09:03)
[2022-05-27 11:06] LABS: Hematocrit (blood only) 23.5 % (42.0-52.0); Hemoglobin 7.2 g/dl (14.0-18.0)
--- NOTE | 2022-05-27 11:38 | Critical Care Progress Note ---
Date of Service May 27, 2022 Assessment & Plan (1) Hypoxia: Plan: Plan Reason Critically Ill: Patient presents hypoxic, hypotensive- initiated on vasopressors in EMD. Concern for septic shock secondary to aspiration PNA. Neuro - No acute needs CAM ICU: Negative Cardiac -Shock,HX CABG, CAD, AVR - Shock-resolved Respiratory -Aspiration pneumonia, plueral effusion, hypoxia with chronic home o2 use, abnormal CT scan of chest -Aspiration pneumonia right middle/lower lobes: Chronic aspiration secondary to malignancy and destructive mass changes - Pulmonary toilet with hypertonic saline and albuterol nebulizers - patient may swab mouth and gargle to help with clearing secretions -Anticipate 7 days effective therapy, can transition to Augmentin - CT scan with attenuation of the right mainstem bronchus- new since 09/28-PET with pulmonary consultation needed for follow up GI -Chronic malnutrition -Tolerating trickle feeds -Suspect continuous feeding may be more appropriate while in the hospital as this will limit volume and hopefully limit aspiration risk as compared to bolus feeding - PEG button noted without abnormalities RENAL/LYTES -JULES: Resolved - Sanchez Sanchez discontinued ENDO - No acute needs HEME -Chronic anemia, normocytic - Patient reports that he gets iron transfusions- anemia labs sent by primary service - reports next transfusion of iron - Sunday 05/28 - Endorses no change in stools - Transfuse if <7 or symptomatic ID -Aspiration pneumnia, -Can de-escalate to Augmentin oral therapy for 7 days of total effective therapy LINES/IV ACCESS - PIV, DVT PROPHYLAXIS - SCDS, Lovenox -Patient clearly at risk given concern for malignancy -Patient has had small episodes of epistaxis which resolved, I am concerned that manipulation or packing we would actually be packing abnormal tissue and likely induce more bleeding DISPO -stable for downgrade out of ICU CODE STATUS: Given new masses in the lungs revisiting goals of care may be a ppropriate in the near future (2) Acute hyponatremia: (3) Shock: (4) Hyperlipidemia: (5) Hypertension: (6) History of nasopharyngeal cancer: (7) Hx of aortic valve replacement: (8) CAD (coronary artery disease): (9) Sepsis: (10) LBBB (left bundle branch block): Admission and Anticipated Discharge Date Admission Date: May 26, 2022 Subjective Small episode of epistaxis Physical Exam Physical Exam: General: Alert. nontoxic. 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, no obvious brisk bleeding from nears nor from what I can see intraorally into his nasal passages Ears, nose, mouth and throat: airway patent Cardiovascular: Normal peripheral perfusion Respiratory: no respiratory distress Gastrointestinal: Non distended Musculoskeletal: No deformity Results & Data Results & Data Vital Signs (Past 12 Hours) Vital Signs Temp Pulse Pulse Resp BP Pulse Ox O2 Del Method 05/27/22 10:30 72 16 95 05/27/22 10:05 93 05/27/22 09:54 75 17 97 05/27/22 09:54 103/57 L 05/27/22 08:00 Nasal Cannula 05/27/22 10:11 84 18 95 Nasal Cannula 05/27/22 09:30 72 21 99 05/27/22 09:20 73 20 97 05/27/22 09:15 105/55 L 05/27/22 09:15 77 13 98 05/27/22 09:10 72 17 97 05/27/22 09:00 72 18 98 05/27/22 08:50 73 15 100 05/27/22 08:40 72 16 97 05/27/22 08:30 74 18 98 05/27/22 08:20 73 20 96 05/27/22 08:11 90/50 L 05/27/22 08:11 74 20 93 05/27/22 08:10 74 20 94 05/27/22 08:07 74 15 94 05/27/22 08:05 72 17 93 05/27/22 08:04 75 20 90 05/27/22 08:00 73 21 92 05/27/22 07:50 73 18 98 05/27/22 07:40 77 27 H 99 05/27/22 07:30 82 20 92 05/27/22 07:20 70 14 93 05/27/22 07:10 70 15 94 05/27/22 07:00 71 17 94 05/27/22 07:00 115/56 L 05/27/22 06:50 73 18 93 05/27/22 06:40 70 15 94 05/27/22 06:30 73 16 94 05/27/22 06:20 74 14 93 05/27/22 08:22 72 05/27/22 07:57 Nasal Cannula 05/27/22 07:34 83 18 94 Nasal Cannula 05/27/22 06:10 76 16 95 Nasal Cannula 05/27/22 06:00 127/66 05/27/22 06:00 36.7 C 76 15 127/66 91 Nasal Cannula 05/27/22 05:50 72 15 95 05/27/22 05:30 75 17 92 05/27/22 05:20 71 15 93 05/27/22 05:10 71 19 91 05/27/22 05:04 67 12 91 05/27/22 05:04 85/47 L 05/27/22 05:00 69 20 90 05/27/22 04:30 73 16 84 L 05/27/22 04:00 75 24 94 05/27/22 04:00 104/57 L 05/27/22 03:30 79 16 94 05/27/22 03:00 77 24 93 05/27/22 03:00 113/57 L 05/27/22 02:30 70 15 92 05/27/22 02:00 69 17 92 05/27/22 02:00 95/52 L 05/27/22 01:00 70 17 95 05/27/22 01:00 110/54 L 05/27/22 00:36 73 05/27/22 00:00 73 29 H 94 05/27/22 00:00 36.7 C 126/59 L O2 Flow Rate 05/27/22 10:30 05/27/22 10:05 05/27/22 09:54 05/27/22 09:54 05/27/22 08:00 05/27/22 10:11 3 05/27/22 09:30 05/27/22 09:20 05/27/22 09:15 05/27/22 09:15 05/27/22 09:10 05/27/22 09:00 05/27/22 08:50 05/27/22 08:40 05/27/22 08:30 05/27/22 08:20 05/27/22 08:11 05/27/22 08:11 05/27/22 08:10 05/27/22 08:07 05/27/22 08:05 05/27/22 08:04 05/27/22 08:00 05/27/22 07:50 05/27/22 07:40 05/27/22 07:30 05/27/22 07:20 05/27/22 07:10 05/27/22 07:00 05/27/22 07:00 05/27/22 06:50 05/27/22 06:40 05/27/22 06:30 05/27/22 06:20 05/27/22 08:22 05/27/22 07:57 2 05/27/22 07:34 4 05/27/22 06:10 3 05/27/22 06:00 05/27/22 06:00 3 05/27/22 05:50 05/27/22 05:30 05/27/22 05:20 05/27/22 05:10 05/27/22 05:04 05/27/22 05:04 05/27/22 05:00 05/27/22 04:30 05/27/22 04:00 05/27/22 04:00 05/27/22 03:30 05/27/22 03:00 05/27/22 03:00 05/27/22 02:30 05/27/22 02:00 05/27/22 02:00 05/27/22 01:00 05/27/22 01:00 05/27/22 00:36 05/27/22 00:00 05/27/22 00:00 Critical Care Results & Data Vital Signs (Past 12 Hours) Vital Signs Temp Pulse Pulse Resp BP Pulse Ox O2 Del Method 05/27/22 14:44 69 20 100 Oxymask 05/27/22 10:30 72 16 95 05/27/22 10:05 93 05/27/22 09:54 75 17 97 05/27/22 09:54 103/57 L 05/27/22 08:00 Nasal Cannula 05/27/22 10:11 84 18 95 Nasal Cannula 05/27/22 09:30 72 21 99 05/27/22 09:20 73 20 97 05/27/22 09:15 105/55 L 05/27/22 09:15 77 13 98 05/27/22 09:10 72 17 97 05/27/22 09:00 72 18 98 05/27/22 08:50 73 15 100 05/27/22 08:40 72 16 97 05/27/22 08:30 74 18 98 05/27/22 08:20 73 20 96 05/27/22 08:11 90/50 L 05/27/22 08:11 74 20 93 05/27/22 08:10 74 20 94 05/27/22 08:07 74 15 94 05/27/22 08:05 72 17 93 05/27/22 08:04 75 20 90 05/27/22 08:00 73 21 92 05/27/22 07:50 73 18 98 05/27/22 07:40 77 27 H 99 05/27/22 07:30 82 20 92 05/27/22 07:20 70 14 93 05/27/22 07:10 70 15 94 05/27/22 07:00 71 17 94 05/27/22 07:00 115/56 L 05/27/22 06:50 73 18 93 05/27/22 06:40 70 15 94 05/27/22 06:30 73 16 94 05/27/22 06:20 74 14 93 05/27/22 08:22 72 05/27/22 07:57 Nasal Cannula 05/27/22 07:34 83 18 94 Nasal Cannula 05/27/22 06:10 76 16 95 Nasal Cannula 05/27/22 06:00 127/66 05/27/22 06:00 36.7 C 76 15 127/66 91 Nasal Cannula 05/27/22 05:50 72 15 95 05/27/22 05:30 75 17 92 05/27/22 05:20 71 15 93 05/27/22 05:10 71 19 91 05/27/22 05:04 67 12 91 05/27/22 05:04 85/47 L 05/27/22 05:00 69 20 90 05/27/22 04:30 73 16 84 L O2 Flow Rate 05/27/22 14:44 4 05/27/22 10:30 05/27/22 10:05 05/27/22 09:54 05/27/22 09:54 05/27/22 08:00 05/27/22 10:11 3 05/27/22 09:30 05/27/22 09:20 05/27/22 09:15 05/27/22 09:15 05/27/22 09:10 05/27/22 09:00 05/27/22 08:50 05/27/22 08:40 05/27/22 08:30 05/27/22 08:20 05/27/22 08:11 05/27/22 08:11 05/27/22 08:10 05/27/22 08:07 05/27/22 08:05 05/27/22 08:04 05/27/22 08:00 05/27/22 07:50 05/27/22 07:40 05/27/22 07:30 05/27/22 07:20 05/27/22 07:10 05/27/22 07:00 05/27/22 07:00 05/27/22 06:50 05/27/22 06:40 05/27/22 06:30 05/27/22 06:20 05/27/22 08:22 05/27/22 07:57 2 05/27/22 07:34 4 05/27/22 06:10 3 05/27/22 06:00 05/27/22 06:00 3 05/27/22 05:50 05/27/22 05:30 05/27/22 05:20 05/27/22 05:10 05/27/22 05:04 05/27/22 05:04 05/27/22 05:00 05/27/22 04:30 Lab & Micro Results (Past 24 Hours) RBC 2.10 M/uL (4.70-6.10) L 05/27/22 WBC 9.10 K/ul (4.8-10.8) 05/27/22 Hgb 7.2 g/dl (14.0-18.0) L 05/27/22 Hct 23.5 % (42.0-52.0) L 05/27/22 MCV 93.8 fL (80.0-100.0) 05/27/22 MCH 28.6 pg (25.0-34.0) 05/27/22 MCHC 30.5 g/dL (32.0-36.0) L 05/27/22 RDW Standard Deviation 52.4 fL (36.4-46.3) H 05/27/22 RDW Coefficient of Variation 15.3 % (11.5-14.5) H 05/27/22 Plt Count 215 K/uL (130-400) 05/27/22 MPV 10.3 fL (9.4-12.4) 05/27/22 Neutrophils (%) (Auto) 82.7 % 05/27/22 Lymphocytes (%) (Auto) 5.1 % 05/27/22 Monocytes # (Auto) 0.69 K/uL (0.11-0.59) H 05/27/22 Eosinophils # (Auto) 0.21 K/uL (0-0.50) 05/27/22 Immature Granulocyte % (Auto) 2.0 % 05/27/22 Neutrophils # (Auto) 7.53 K/uL (1.40-6.50) H 05/27/22 Lymphocytes # (Auto) 0.46 K/uL (1.2-3.4) L 05/27/22 Monocytes # (Auto) 0.69 K/uL (0.11-0.59) H 05/27/22 Eosinophils # (Auto) 0.21 K/uL (0-0.50) 05/27/22 Basophils # (Auto) 0.03 K/uL (0-0.2) 05/27/22 Immature Granulocyte # (Auto) 0.18 K/uL (0.01-0.20) 3 Polychromasia 1+ 05/27/22 Na 138 mmol/L (136-145) 05/27/22 K 3.4 mmol/L (3.5-5.1) L 05/27/22 Cl 103 mmol/L (98-107) 05/27/22 CO2 33 mmol/L (21-32) H 05/27/22 Anion Gap 2 (3-11) L 05/27/22 BUN 12 mg/dl (6-23) 05/27/22 Creatinine 0.60 mg/dl (0.6-1.4) 05/27/22 Estimated GFR ( Amer) 111.6 ml/min 05/27/22 Estimated GFR (Non-Af Amer) 96.3 ml/min 05/27/22 BUN/Creatinine Ratio 20.0 (10-20) 05/27/22 Glu 77 mg/dl (70-99(Fasting)) 05/27/22 Ca 7.6 mg/dl (8.6-10.3) L 05/27/22 Phosphorus Level 2.5 mg/dl (2.5-4.9) 05/27/22 Mg 1.8 mg/dl (1.7-2.4) 05/27/22 04:56 Calcium Level 7.6 mg/dl (8.6-10.3) L 05/27/22 04:56 Microbiology 05/25/22 20:26 Aerobic Blood Culture - Preliminary Blood No growth in Aerobic bottle after 24 hours. Anaerobic Blood Culture - Final 05/25/22 20:17 Aerobic Blood Culture - Preliminary Blood No growth in Aerobic bottle after 24 hours. Anaerobic Blood Culture - Preliminary No growth in Anaerobic bottle after 24 hours. I & O Totals 24 Hours 05/26/22 05/27/22 05/28/22 06:59 06:59 06:59 Intake Total 3506.56 / 3506.56 2296.575 / 2339.150 162.575 / 162.575 Output Total 400 / 400 1311 / 1711 400 / 400 Balance 3106.56 / 3106.56 985.575 / 628.150 -237.425 / -237.425 Cumulative 05/25/22 19:07 thru 05/27/22 14:46 Intake Total 5965.710 Output Total 2111 Balance 3854.710 RT Ventilator Mngmt (Last Documented) Ventilator Ordered Settings Respiratory Rate 20 05/27/22 14:44 Fraction of Inspired Oxygen 3 05/26/22 08:00 Ventilator - PT Measurements Respiratory Rate 20 Coding Level of Care Code 19110 SUB INP/OBS CARE 3/50MIN Diagnoses Hypoxia R09.02 Acute hyponatremia E87.1 Shock R57.9 Hyperlipidemia E78.5 Hypertension I10 History of nasopharyngeal cancer Z85.819 Hx of aortic valve replacement Z95.2 CAD (coronary artery disease) I25.10 Sepsis A41.9 Sepsis acute organ dysfunction status: unspecified Sepsis type: sepsis due to unspecified organism LBBB (left bundle branch block) I44.7 (9) Sepsis Sepsis acute organ dysfunction status: unspecified Sepsis type: sepsis due to unspecified organism Qualified Code(s): A41.9 - Sepsis, unspecified organism
[2022-05-27] MEDS ORDERED: MIDODRINE HCL 2.5 MG TAB PO SCH (12:00)
[2022-05-27] MEDS ORDERED: NUTREN LIQD 2.0 1,000 ML BAG GT SCH (16:45)
[2022-05-27] MEDS ORDERED: POTASSIUM CHLORIDE 10 MEQ TABCR PO STA (19:33)
--- NOTE | 2022-05-27 20:17 | Hospitalist Progress Note ---
Date of Service May 27, 2022 Assessment & Plan (1) Shock: (2) Acute hypoxemic respiratory failure: (3) Aspiration pneumonia: (4) Anemia: (5) Hyperlipidemia: (6) History of nasopharyngeal cancer: (7) CHF (congestive heart failure): (8) Acute hyponatremia: (9) CAD (coronary artery disease): (10) Electrolyte abnormality: (11) COPD (chronic obstructive pulmonary disease): Plan 77-year-old male admitted to the ICU with septic shock secondary to aspiration pneumonia. Septic Shock -Chest CT with noted right sided pneumonia, pleural effusions -Hypotensive, requiring pressor support on admission. Was admitted to the ICU and subsequently downgraded. -BP currently stable, breathing comfortably on oxymask. -Continue Zosyn, follow blood cultures to narrow Hypoxia/Respiratory distress/Aspiration pneumonia -Chest CT with noted right sided pneumonia, pleural effusions -improving and downgraded -continue to wean oxygen support to baseline (pt uses oxygen at home) Possible lung neoplasm -noted on CT chest -Recommended possible PET scan to be done outpatient for followup. Anemia -trend H/H -follow Hemoccult, iron studies, vitamin B12 and folate levels. Electrolyte abnormalities -replace potassium and magnesium as needed. COPD -continue duonebs scheduled History of nasopharyngeal cancer, status post chemoradiation, status post PEG tube placement -Nutrition and medications via PEG tube -Appreciate Nutrition consult CHF -continue to monitor CAD -continue daily aspirin, statin HLD -continue statin CKD -continue to monitor kidney function Diet: NPO, has PEG tube for feedings. DVT prophylaxis: Lovenox SQ Code status: Full code Dispo: PCU/tele Admission and Anticipated Discharge Date Admission Date: May 26, 2022 Subjective Pt seen this AM in the ICU. Resting comfortably, alert and oriented once awakened. Denies any acute concerns. Review of Systems Review of Systems: All systems reviewed & are unremarkable except as noted in Subjective Physical Exam Physical Exam: General: Alert, oriented. No acute distress Skin: No noted rashes or bruises Psych: Appropriate mood and affect Neuro: No gross deficits HEENT: NC/AT CV: RRR, Normal s1, s2. No murmurs appreciated Resp: no increased effort of breathing. Abdomen: Soft, nontender, nondistended. No guarding. No organomegaly appreciated. Extremities: No edema in lower extremities bilaterally. Results & Data Results & Data Vital Signs (Past 12 Hours) Vital Signs Temp Pulse Pulse Resp BP Pulse Ox O2 Del Method 05/27/22 14:44 69 20 100 Oxymask 05/27/22 10:30 72 16 95 05/27/22 10:05 93 05/27/22 09:54 75 17 97 05/27/22 09:54 103/57 L 05/27/22 08:00 Nasal Cannula 05/27/22 10:11 84 18 95 Nasal Cannula 05/27/22 09:30 72 21 99 05/27/22 09:20 73 20 97 05/27/22 09:15 105/55 L 05/27/22 09:15 77 13 98 05/27/22 09:10 72 17 97 05/27/22 09:00 72 18 98 05/27/22 08:50 73 15 100 05/27/22 08:40 72 16 97 05/27/22 08:30 74 18 98 05/27/22 08:20 73 20 96 05/27/22 08:11 90/50 L 05/27/22 08:11 74 20 93 05/27/22 08:10 74 20 94 05/27/22 08:07 74 15 94 05/27/22 08:05 72 17 93 05/27/22 08:04 75 20 90 05/27/22 08:00 73 21 92 05/27/22 07:50 73 18 98 05/27/22 07:40 77 27 H 99 05/27/22 07:30 82 20 92 05/27/22 07:20 70 14 93 05/27/22 07:10 70 15 94 05/27/22 07:00 71 17 94 05/27/22 07:00 115/56 L 05/27/22 06:50 73 18 93 05/27/22 06:40 70 15 94 05/27/22 06:30 73 16 94 05/27/22 06:20 74 14 93 05/27/22 08:22 72 05/27/22 07:57 Nasal Cannula 05/27/22 07:34 83 18 94 Nasal Cannula 05/27/22 06:10 76 16 95 Nasal Cannula 05/27/22 06:00 127/66 05/27/22 06:00 36.7 C 76 15 127/66 91 Nasal Cannula 05/27/22 05:50 72 15 95 05/27/22 05:30 75 17 92 05/27/22 05:20 71 15 93 05/27/22 05:10 71 19 91 05/27/22 05:04 67 12 91 05/27/22 05:04 85/47 L 05/27/22 05:00 69 20 90 05/27/22 04:30 73 16 84 L O2 Flow Rate 05/27/22 14:44 4 05/27/22 10:30 05/27/22 10:05 05/27/22 09:54 05/27/22 09:54 05/27/22 08:00 05/27/22 10:11 3 05/27/22 09:30 05/27/22 09:20 05/27/22 09:15 05/27/22 09:15 05/27/22 09:10 05/27/22 09:00 05/27/22 08:50 05/27/22 08:40 05/27/22 08:30 05/27/22 08:20 05/27/22 08:11 05/27/22 08:11 05/27/22 08:10 05/27/22 08:07 05/27/22 08:05 05/27/22 08:04 05/27/22 08:00 05/27/22 07:50 05/27/22 07:40 05/27/22 07:30 05/27/22 07:20 05/27/22 07:10 05/27/22 07:00 05/27/22 07:00 05/27/22 06:50 05/27/22 06:40 05/27/22 06:30 05/27/22 06:20 05/27/22 08:22 05/27/22 07:57 2 05/27/22 07:34 4 05/27/22 06:10 3 05/27/22 06:00 05/27/22 06:00 3 05/27/22 05:50 05/27/22 05:30 05/27/22 05:20 05/27/22 05:10 05/27/22 05:04 05/27/22 05:04 05/27/22 05:00 05/27/22 04:30 (3) Aspiration pneumonia Aspiration pneumonia type: unspecified Laterality: right Lung location: lower lobe of lung Qualified Code(s): J69.0 - Pneumonitis due to inhalation of food and vomit (7) CHF (congestive heart failure) Heart failure chronicity: chronic Heart failure type: unspecified Qualified Code(s): I50.9 - Heart failure, unspecified
[2022-05-27] MEDS: ATORVASTATIN 40 MG TAB PEG SCH (21:25)
[2022-05-27] MEDS: MAGNESIUM OXIDE 400 MG TAB PO SCH (21:26)
[2022-05-28] MEDS: PIPERACILLIN/TAZOBACTAM 4.5 GM in DEXTROSE 5% 100 ML IV SCH ×2 (03:40→11:34)
[2022-05-28] MEDS ORDERED: TUBE FEEDING WATER FLUSH GT PRN (03:50)
[2022-05-28] MEDS ORDERED: ALBUMIN 25% 100 mL 25 GM/100 ML VIAL IV ONE (04:00)
[2022-05-28 04:32] LABS: BUN Creatinine Ratio 13.3 (10-20); Calcium 8.1 mg/dl (8.6-10.3); Creatinine Clr Calc Pharmacy 81.7 ml/min; Est GFR (African American) 111.6 ml/min; Est GFR (Non-African American) 96.3 ml/min; Magnesium 1.9 mg/dl (1.7-2.4); Potassium 3.3 mmol/L (3.5-5.1)
[2022-05-28 04:33] LABS: Hematocrit (blood only) 21.8 % (42.0-52.0); Hemoglobin 6.8 g/dl (14.0-18.0); Mean Corpuscular Hemoglobin 28.5 pg (25.0-34.0); Mean Corpuscular Hgb Conc 31.2 g/dL (32.0-36.0); Mean Corpuscular Volume 91.2 fL (80.0-100.0); Mean Platelet Volume 9.7 fL (9.4-12.4); Platelet Count 230 K/uL (130-400); RDW Standard Deviation 50.4 fL (36.4-46.3); Red Blood Count 2.39 M/uL (4.70-6.10); White Blood Count 6.94 K/ul (4.8-10.8)
[2022-05-28 04:44] LABS: Basophils # (auto) 0.02 K/uL (0-0.2); Basophils % (auto) 0.3 %; Eosinophils # (auto) 0.27 K/uL (0-0.50); Eosinophils % (auto) 3.9 %; Immature Granulocytes # (auto) 0.03 K/uL (0.01-0.20); Immature Granulocytes % (auto) 0.4 %; Lymphocytes # (auto) 0.57 K/uL (1.2-3.4); Lymphocytes % (auto) 8.2 %; Monocytes # (auto) 0.65 K/uL (0.11-0.59); Monocytes % (auto) 9.4 %; Neutrophils % (auto) 77.8 %
[2022-05-28] MEDS ORDERED: SODIUM CHLORIDE 0.9% 250 ML IV PRN ×3 (06:30→18:01)
[2022-05-28] MEDS ORDERED: POTASSIUM CHLORIDE 20 MEQ/15 ML UDC PEG STA (06:32)
--- NOTE | 2022-05-28 06:32 | Communication Note ---
Date of Service: May 28, 2022 Made aware by RN of a.m. hemoglobin of 6.8 from 7.2 yesterday. No overt bleeding as per RN. FOBT done by undersigned negative AP Progressive anemia Transfuse PRBC to maintain hemoglobin greater than 8 (hx CAD as per records)
[2022-05-28] MEDS: SODIUM CHLOR 7% 4 ML NEB NEB SCH (07:16)
[2022-05-28] MEDS: ALBUT/IPRATROP 3MG/0.5MG NEB 3 ML VIAL NEB SCH ×3 (07:17→16:13)
[2022-05-28] MEDS: FOLIC ACID 1 MG TAB PEG SCH (08:02)
[2022-05-28] MEDS: MAGNESIUM OXIDE 400 MG TAB PO SCH (08:03)
[2022-05-28] MEDS ORDERED: FUROSEMIDE INJ 20 MG/2 ML VIAL IV SCH (09:00)
[2022-05-28] MEDS: ASPIRIN 81 MG CHEW PEG SCH (11:34)
[2022-05-28] MEDS ORDERED: OXYMETAZOLINE 0.05% 30 ML BTL ONE (14:05)
[2022-05-28] MEDS ORDERED: TXA 10% Non-IV Routes 100 MG/ML VIAL NEB ONE ×3 (14:21→15:47)
--- NOTE | 2022-05-28 14:59 | Hospitalist Progress Note ---
Date of Service May 28, 2022 Assessment & Plan (1) Shock: (2) Acute hypoxemic respiratory failure: (3) Aspiration pneumonia: (4) Anemia: (5) Hyperlipidemia: (6) History of nasopharyngeal cancer: (7) CHF (congestive heart failure): (8) Acute hyponatremia: (9) CAD (coronary artery disease): (10) Electrolyte abnormality: (11) COPD (chronic obstructive pulmonary disease): Plan 77-year-old male admitted originally with septic shock secondary to aspiration pneumonia, currently with persistent copious nose bleed in the setting of maxillary abnormalities. Epistaxis - not able to be controlled -packing in the OR by ENT with ICU admission and transfer to [facility] for further evaluation. Anemia -received 1 unit of blood this AM by superintendent power Continue to trend H/H and transfuse as needed Septic Shock -currently resolved, was downgraded from the ICU prior to epistaxis Hypoxia/Respiratory distress/Aspiration pneumonia - as above, iimproved and downgraded -continue to wean oxygen support to baseline (pt uses oxygen at home) Possible lung neoplasm -noted on CT chest -Recommended possible PET scan to be done outpatient for followup. Electrolyte abnormalities -replete as needed COPD -continue duonebs scheduled History of nasopharyngeal cancer, status post chemoradiation, status post PEG tube placement -Nutrition and medications via PEG tube -Appreciate Nutrition consult CHF -continue to monitor CAD -continue daily aspirin, statin HLD -continue statin CKD -continue to monitor kidney function Diet: NPO, has PEG tube for feedings. DVT prophylaxis:Due to epistaxis, d/c aspirin and home Lovenox Code status: Full code Dispo: ICU for transfer to [facility] Admission and Anticipated Discharge Date Admission Date: May 26, 2022 Subjective Pt seen this AM, stable working on an ipad. Received notification at about 2:00PM that he was having a copious nose bleed. Notified ED provider, ENT provider vice president mission integration and [employer]. Due to pt's Hx of nasopharyngeal cancer s/p radiation, without maxilla, there was difficulty with packing. Pt was taken to the OR with plan, transferred to the ICU with plan to transfer to [facility] for further evaluation. Son contacted and updated. Review of Systems Review of Systems: All systems reviewed & are unremarkable except as noted in Subjective Physical Exam Physical Exam: General: Alert, oriented when seen in the AM. Had copious bleeding from the nose when seen later. Skin: No noted rashes or bruises Psych: Appropriate mood and affect Neuro: No gross deficits HEENT: copious bleeding from nose, mouth on second exam CV: RRR Resp: no increased effort of breathing. Abdomen: Soft, nontender, nondistended. Extremities: No edema in lower extremities bilaterally. Results & Data Results & Data Vital Signs (Past 12 Hours) Vital Signs Temp Pulse Pulse Resp BP BP Pulse Ox 05/28/22 12:27 36.5 C 78 20 152/73 H 100 05/28/22 11:21 71 18 100 05/28/22 11:33 36.5 C 69 20 145/78 H 100 05/28/22 11:32 36.5 C 66 20 145/75 H 97 05/28/22 11:03 36.5 C 70 20 128/75 100 05/28/22 10:48 36.5 C 70 20 151/77 H 100 05/28/22 10:31 36.4 C L 77 20 131/65 99 05/28/22 10:12 79 05/28/22 10:02 36.4 C L 76 20 124/74 97 05/28/22 09:54 36.4 C L 85 20 124/74 97 05/28/22 08:54 36.4 C L 79 20 130/72 97 05/28/22 08:24 36.6 C 81 20 109/72 89 L 05/28/22 08:09 36.5 C 88 20 99/55 L 88 L 05/28/22 07:48 36.5 C 89 20 88/44 L 94 05/28/22 07:17 84 18 98 05/28/22 07:14 36.6 C 82 18 125/75 98 05/28/22 05:00 05/28/22 03:36 36.8 C 77 20 85/42 L 95 O2 Del Method O2 Del Method O2 Flow Rate O2 Flow Rate 05/28/22 12:27 4 05/28/22 11:21 Oxymask 4 05/28/22 11:33 05/28/22 11:32 05/28/22 11:03 4 05/28/22 10:48 4 05/28/22 10:31 4 05/28/22 10:12 05/28/22 10:02 05/28/22 09:54 05/28/22 08:54 05/28/22 08:24 05/28/22 08:09 4 05/28/22 07:48 05/28/22 07:17 Oxymask 4 05/28/22 07:14 Room Air 05/28/22 05:00 Oxymask 4 05/28/22 03:36 Oxymask 4.0 (3) Aspiration pneumonia Aspiration pneumonia type: unspecified Laterality: right Lung location: lower lobe of lung Qualified Code(s): J69.0 - Pneumonitis due to inhalation of food and vomit (7) CHF (congestive heart failure) Heart failure chronicity: chronic Heart failure type: unspecified Qualified Code(s): I50.9 - Heart failure, unspecified
--- NOTE | 2022-05-28 14:59 | Procedure Note ---
Procedure Note Date of Service May 28, 2022 Note Called by the [facility] hospitalist to evaluate the patient due to nosebleed from ER to Room 229. Upon arrival the patient was significant nosebleed at least 350 to 400 mL of blood out. Has a history of pharyngeal with no soft or hard palate. On aspirin. Transfused units of blood this morning for anemia. Out of the ICU from yesterday after aspiration sepsis. Patient protecting his airway but with steady drainage predominantly from the right from what I can tell but hard to visualize an active bleed. Code mary was called. Patient administered some Afrin into the right nostril. 1g Nebulized TXA was ordered. With patient's permission at bedside, did try to place a 7.5 cm rapid Rhino without a soft palate that does not appear to be holding an effect and was quickly removed. Patient discussed with the ICU doctor as well as the hospitalist. Hospitalist has reached out to the ENT physician on-call. Complex history of radiation to the oropharyngeal area with oncological history makes control of bleeding difficult. Patient with 2 peripheral IVs. Again protecting his airway with at this point probably about 500 mL of blood out. Nursing and respiratory at bedside. ICU attending evaluated and further discussion with ENT who will come evaluate the patient --likely in the OR -- with high likelihood of need for transfer for tertiary care and interventional radiology services given his cancer history. Left in the care of hospitalist and ICU attending. Coding
[2022-05-28] MEDS ORDERED: fentaNYL citrate PF 100 MCG/2 ML VIAL ONE (15:03)
[2022-05-28] MEDS ORDERED: ALBUMIN HUMAN 5% 12.5 GM/250 ML VIAL IV ONE (15:06)
--- NOTE | 2022-05-28 15:10 | Anesthesiology Consultation ---
Date of Service May 28, 2022 Assessment & Plan (1) Encounter for pre-operative examination: Chart Review Chart Review: Acceptable Risk for Surgery and Patient NOT seen in Pre Admission Testing Consults Requested none History Surgery Operation Date: 05/28/22 09:10 Proposed Procedures p Nasal Bleed Control - Gui Mendoza MD Height/Weight Height: 5 ft 5 in Weight: 56.2 kg Allergies Allergy/AdvReac Type Severity Reaction Status Date / Time No Known Allergies Allergy Verified 05/25/22 19:36 Medications Home Medications Medication Instructions Recorded Confirmed Last Taken atorvastatin 40 mg tablet 40 mg feeding tube QPM 09/18/18 05/25/22 05/25/22 nitroglycerin 0.4 mg sublingual 0.4 mg sublingual UD PRN Chest Pain 09/18/18 Unknown tablet albuterol sulfate 90 mcg/actuation 2 inh inhalation Q6H PRN shortness 05/06/20 05/25/22 02/19/21 aerosol inhaler (ProAir HFA) of breath or wheezing #8.5 grams AM aspirin 81 mg chewable tablet 81 mg feeding tube QDL 02/19/21 05/25/22 09/07/21 nutritional supplements 0.08 1 ea feeding tube QID 02/19/21 05/25/22 05/25/22 gram-2 kcal/mL liquid for tube feed (Nutren 2.0) sodium chloride 0.65 % nasal spray 2 spray NA Q4H PRN NASAL DRYNESS 09/07/21 05/25/22 Unknown aerosol (Saline Mist) clotrimazole 1 % topical cream 1 applic topical BID 12/28/21 05/25/22 05/25/22 oxymetazoline 0.05 % nasal spray 2 spray intranasal Q12H PRN NOSE 12/28/2105/08 Unknown (Afrin (oxymetazoline)) BLEEDS triamcinolone acetonide 0.1 % 1 applic topical BID 12/28/21 05/25/22 05/25/22 topical cream water for irrigation, sterile 120 ml irrigation 5XD 03/07/22 05/25/22 05/25/22 ipratropium 0.5 mg-albuterol 3 mg 3 ml inhalation BID wheezing #90 mL 03/11/22 05/25/22 05/25/22 (2.5 mg base)/3 mL nebulization soln sodium chloride 7 % for 4 ml NEB BIDR #120 mL 03/11/22 05/25/22 05/25/22 nebulization cyanocobalamin (vitamin B-12) 1,000 mcg feeding tube DAILY 05/06/22 05/25/22 05/25/22 1,000 mcg tablet (Vitamin B-12) folic acid 1 mg tablet 1 mg feeding tube DAILY 05/06/22 05/25/22 05/25/22 Iron Infusion 1 dose IV DIRECTED 05/25/22 05/25/22 Unknown Active Medications Generic Name Dose Route Start Last Admin Trade Name Freq PRN Reason Stop Dose Admin Albuterol 3 ml 05/26/22 07:00 05/28/22 16:13 Albut/Ipratrop 3mg/0.5mg Neb 3 Ml Vial NEB 06/25/22 06:59 Not Given QIDR ROYA Protocol Atorvastatin Calcium 40 mg 05/26/22 21:00 05/27/22 21:25 Atorvastatin 40 Mg Tab PEG 06/25/22 20:59 40 mg QPM ROYA Administration Folic Acid 1 mg 05/26/22 09:00 05/28/22 08:02 Folic Acid 1 Mg Tab PEG 06/25/22 08:59 1 mg DAILY ROYA Administration Piperacillin Sod/Tazobactam 120 mls @ 30 mls/hr 05/26/22 04:00 05/28/22 15:45 Sod 4.5 gm/ Dextrose IV 06/02/22 03:59 Infused Q8H ROYA Infusion Protocol Magnesium Oxide 400 mg 05/27/22 21:00 05/28/22 08:03 Magnesium Oxide 400 Mg Tab PO 06/26/22 20:59 400 mg BID ROYA Administration Sodium Chloride 4 ml 05/26/22 07:00 05/28/22 07:16 Sodium Chlor 7% 4 Ml Neb NEB 06/25/22 06:59 4 ml BIDR ROYA Administration Past Medical History Medical History (Updated 05/28/22 @ 16:57 by Atilio Ortiz MD) Acute hypoxemic respiratory failure Acute on chronic diastolic heart failure Acute renal insufficiency JULES (acute kidney injury) CAD (coronary artery disease) Cardiac murmur CHILD FROM RHEUMATIC FEVER CHF (congestive heart failure) Chronic pulmonary aspiration CKD (chronic kidney disease) stage 3, GFR 30-59 ml/min Elevated lactic acid level Former tobacco use Hearing deficit BILAT History of MD (myocardial infarction) 2017/ [facility] History of nasopharyngeal cancer s/p radiation, 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 [place]- [facility]/ NO STENTS History of cataract surgery History of colonoscopy with polypectomy 09/25/2018. Propofol given, no issues. History of [facility] History of heart valve replacement Bioprosthetic aortic valve - [facility] 2016 History of shoulder surgery RIGHT History of tonsillectomy History of tooth extraction History of vascular access device NO LONGER HAS PORT Hx of aortic valve replacement Status post insertion of percutaneous endoscopic gastrostomy (PEG) tube PLACED DUE TO PALATE SURGERY- THEN REMOVED 2014 Social History Smoking Status: Never smoker Hx Alcohol Use: No Hx Substance Use: No substance use type: does not use Physical Exam Vital Signs Last Vital Signs Temp 36.4 C L 05/28/22 15:10 Pulse 78 05/28/22 15:31 Resp 20 05/28/22 15:31 BP 75/51 L 05/28/22 15:31 Pulse Ox 96 05/28/22 15:31 O2 Del Method Oxymask 05/28/22 15:20 O2 Flow Rate 15 05/28/22 15:20 FiO2 3 05/26/22 08:00 Testing Laboratory Results 05/28/22 15:31 05/28/22 03:57 PT 11.8 Seconds (9.0-12.0) 05/28/22 15:08 INR 1.1 (0.9-1.1) 05/28/22 15:08 APTT 29.8 Seconds (21.0-31.0) 05/28/22 15:08 Blood Type O Positive 05/27/22 07:12 Antibody Screen NEGATIVE 05/27/22 07:12 05/25/22 20:17 Aerobic Blood Culture - Preliminary Blood No growth in Aerobic bottle after 48 hours. Anaerobic Blood Culture - Preliminary No growth in Anaerobic bottle after 48 hours. 05/25/22 20:26 Aerobic Blood Culture - Preliminary Blood No growth in Aerobic bottle after 48 hours. Anaerobic Blood Culture - Final Electrocardiogram Date: 05/26/22 DICTATED BY:Figueroa Correa MD Test Reason : Blood Pressure : / mmHG Vent. Rate : 096 BPM Atrial Rate : 096 BPM P-R Int : 160 ms QRS Dur : 070 ms QT Int : 322 ms P-R-T Axes : 055 056 066 degrees QTc Int : 406 ms Normal sinus rhythm Low voltage QRS Borderline ECG When compared with ECG of 17-APR-2022 09:20, No significant change was found Confirmed by Figueroa Correa ([id number]) on 05/26/2022 1:17:53 PM Chest X-Ray Date: 05/25/22 XR chest 1V portable HISTORY: sob, hypoxia COMPARISON: None. FINDINGS: No pneumothorax. Trace right pleural effusion. Poststernotomy changes. The heart is top normal in size. There is mild central pulmonary vascular congestion without overt edema. Patchy right basilar airspace opacities are noted. IMPRESSION: 1. Patchy right base airspace opacities. This may represent atelectasis or a pneumonia. 2. Mild pulmonary vascular congestion and a trace right pleural effusion. Echocardiogram Date: 05/02/20 LV is normal in size. EF 50-55% RV systolic function is normal
[2022-05-28] MEDS ORDERED: MIDAZOLAM HCL 1 MG/ML 2ML VIAL ONE (15:15)
[2022-05-28] MEDS ORDERED: KETAMINE 50 MG/5 ML SYRINGE ONE (15:15)
[2022-05-28] MEDS ORDERED: LIDOCAINE 4% MPF LOCAL INJ 5 ML AMP ONE (15:16)
--- NOTE | 2022-05-28 15:21 | Critical Care Progress Note ---
Date of Service May 28, 2022 Assessment & Plan (1) Hypoxia: Plan: Plan Reason Critically Ill: Patient presents hypoxic, hypotensive- initiated on vasopressors in EMD. Concern for septic shock secondary to aspiration PNA. Neuro - No acute needs CAM ICU: Negative Cardiac -Shock secondary to sepsis from aspiration pneumonia,HX CABG, CAD, AVR - Shock-resolved Respiratory -Aspiration pneumonia, plueral effusion, hypoxia with chronic home o2 use, abnormal CT scan of chest -Aspiration pneumonia right middle/lower lobes: Chronic aspiration secondary to malignancy and destructive mass changes -Anticipate 7 days effective therapy, can transition to Augmentin New pulmonary masses: - CT scan with attenuation of the right mainstem bronchus- new since 09/28-PET with pulmonary consultation needed for follow up GI -Chronic malnutrition -Stop tube feeding and having staff suction what they can from PEG tube - PEG button noted without abnormalities RENAL/LYTES -JULES: Resolved -Place Sanchez given the patient will likely be intubated following operating room ENDO - No acute needs HEME - Acute blood loss anemia secondary to nasal hemorrhage -Transfuse 1 unit packed red blood cells ID -Aspiration pneumnia, Augmentin 7 days effective therapy LINES/IV ACCESS - PIV, DVT PROPHYLAXIS - SCDS, Lovenox -Patient clearly at risk given concern for malignancy -Patient has had small episodes of epistaxis which resolved, I am concerned that manipulation or packing we would actually be packing abnormal tissue and likely induce more bleeding -Last prophylactic Lovenox dose was yesterday 05/27/2022 at 936 DISPO -to operating room with ENT for nasal packing CODE STATUS: Given new masses in the lungs revisiting goals of care may be appropriate in the near future Will start process to transfer to [facility] (2) Acute hyponatremia: (3) Shock: (4) Hyperlipidemia: (5) Hypertension: (6) History of nasopharyngeal cancer: (7) Hx of aortic valve replacement: (8) CAD (coronary artery disease): (9) Sepsis: (10) LBBB (left bundle branch block): Admission and Anticipated Discharge Date Admission Date: May 26, 2022 Supervising Physician Co-Signing Physician Notes I have personally spent 45 minutes of critical care time in the direct m anagement of this patient. This is a life/limb threatening event. This includes time spent evaluating patient, direct bedside care, chart review, placing orders, interpretation of diagnostic studies, discussion with consultants, patient, and/or family members regarding treatment decisions, as well as other required patient management activities. This time is exclusive of all separately billable procedures, and teaching time and separate from and in addition to any other critical care service time. Subjective Responded to code purple for large-volume epistaxis. Patient currently able to maintain airway by spitting, alert oriented understands proposed plan. I discussed with anesthesia to prepare an OR and ENT, Dr. Mendoza is coming in e mergently from the office to proceed with evaluation and packing. I have already contacted [facility] who will be willing to accept the patient in transfer. Patient has previously undergone extensive evaluation and intervention for prior episodes of massive epistaxis. Physical Exam Physical Exam: General: Alert. nontoxic. Skin: Warm, dry, pale Head: Atraumatic Ears, nose, mouth and throat: Patient able to maintain airway, I am not able to visualize area of bleeding. He is able to spit out clots. Cardiovascular: Normal peripheral perfusion Respiratory: no respiratory distress Gastrointestinal: Non distended Musculoskeletal: No deformity Results & Data Results & Data Vital Signs (Past 12 Hours) Vital Signs Temp Pulse Pulse Resp BP BP Pulse Ox 05/28/22 15:10 36.4 C L 81 20 97/58 L 88 L 05/28/22 12:27 36.5 C 78 20 152/73 H 100 05/28/22 11:21 71 18 100 05/28/22 11:33 36.5 C 69 20 145/78 H 100 05/28/22 11:32 36.5 C 66 20 145/75 H 97 05/28/22 11:03 36.5 C 70 20 128/75 100 05/28/22 10:48 36.5 C 70 20 151/77 H 100 05/28/22 10:31 36.4 C L 77 20 131/65 99 05/28/22 10:12 79 05/28/22 10:02 36.4 C L 76 20 124/74 97 05/28/22 09:54 36.4 C L 85 20 124/74 97 05/28/22 08:54 36.4 C L 79 20 130/72 97 05/28/22 08:24 36.6 C 81 20 109/72 89 L 05/28/22 08:09 36.5 C 88 20 99/55 L 88 L 05/28/22 07:48 36.5 C 89 20 88/44 L 94 05/28/22 07:17 84 18 98 05/28/22 07:14 36.6 C 82 18 125/75 98 05/28/22 05:00 05/28/22 03:36 36.8 C 77 20 85/42 L 95 O2 Del Method O2 Del Method O2 Flow Rate O2 Flow Rate 05/28/22 15:10 05/28/22 12:27 4 05/28/22 11:21 Oxymask 4 05/28/22 11:33 05/28/22 11:32 05/28/22 11:03 4 05/28/22 10:48 4 05/28/22 10:31 4 05/28/22 10:12 05/28/22 10:02 05/28/22 09:54 05/28/22 08:54 05/28/22 08:24 05/28/22 08:09 4 05/28/22 07:48 05/28/22 07:17 Oxymask 4 05/28/22 07:14 Room Air 05/28/22 05:00 Oxymask 4 05/28/22 03:36 Oxymask 4.0 Critical Care Results & Data Vital Signs (Past 12 Hours) Vital Signs Temp Pulse Pulse Resp BP BP Pulse Ox 05/28/22 15:10 36.4 C L 81 20 97/58 L 88 L 05/28/22 12:27 36.5 C 78 20 152/73 H 100 05/28/22 11:21 71 18 100 05/28/22 11:33 36.5 C 69 20 145/78 H 100 05/28/22 11:32 36.5 C 66 20 145/75 H 97 05/28/22 11:03 36.5 C 70 20 128/75 100 05/28/22 10:48 36.5 C 70 20 151/77 H 100 05/28/22 10:31 36.4 C L 77 20 131/65 99 05/28/22 10:12 79 05/28/22 10:02 36.4 C L 76 20 124/74 97 05/28/22 09:54 36.4 C L 85 20 124/74 97 05/28/22 08:54 36.4 C L 79 20 130/72 97 05/28/22 08:24 36.6 C 81 20 109/72 89 L 05/28/22 08:09 36.5 C 88 20 99/55 L 88 L 05/28/22 07:48 36.5 C 89 20 88/44 L 94 05/28/22 07:17 84 18 98 05/28/22 07:14 36.6 C 82 18 125/75 98 05/28/22 05:00 05/28/22 03:36 36.8 C 77 20 85/42 L 95 O2 Del Method O2 Del Method O2 Flow Rate O2 Flow Rate 05/28/22 15:10 05/28/22 12:27 4 05/28/22 11:21 Oxymask 4 05/28/22 11:33 05/28/22 11:32 05/28/22 11:03 4 05/28/22 10:48 4 05/28/22 10:31 4 05/28/22 10:12 05/28/22 10:02 05/28/22 09:54 05/28/22 08:54 05/28/22 08:24 05/28/22 08:09 4 05/28/22 07:48 05/28/22 07:17 Oxymask 4 05/28/22 07:14 Room Air 05/28/22 05:00 Oxymask 4 05/28/22 03:36 Oxymask 4.0 Lab & Micro Results (Past 24 Hours) RBC 2.39 M/uL (4.70-6.10) L 05/28/22 WBC 6.94 K/ul (4.8-10.8) 05/28/22 Hgb 6.8 g/dl (14.0-18.0) L* 05/28/22 Hct 21.8 % (42.0-52.0) L 05/28/22 MCV 91.2 fL (80.0-100.0) 05/28/22 MCH 28.5 pg (25.0-34.0) 05/28/22 MCHC 31.2 g/dL (32.0-36.0) L 05/28/22 RDW Standard Deviation 50.4 fL (36.4-46.3) H 05/28/22 RDW Coefficient of Variation 15.0 % (11.5-14.5) H 05/28/22 Plt Count 230 K/uL (130-400) 05/28/22 MPV 9.7 fL (9.4-12.4) 05/28/22 Neutrophils (%) (Auto) 77.8 % 05/28/22 Lymphocytes (%) (Auto) 8.2 % 05/28/22 Monocytes # (Auto) 0.65 K/uL (0.11-0.59) H 05/28/22 Eosinophils # (Auto) 0.27 K/uL (0-0.50) 05/28/22 Immature Granulocyte % (Auto) 0.4 % 05/28/22 Neutrophils # (Auto) 5.40 K/uL (1.40-6.50) 05/28/22 Lymphocytes # (Auto) 0.57 K/uL (1.2-3.4) L 05/28/22 Monocytes # (Auto) 0.65 K/uL (0.11-0.59) H 05/28/22 Eosinophils # (Auto) 0.27 K/uL (0-0.50) 05/28/22 Basophils # (Auto) 0.02 K/uL (0-0.2) 05/28/22 Immature Granulocyte # (Auto) 0.03 K/uL (0.01-0.20) 3 Na 137 mmol/L (136-145) 05/28/22 K 3.3 mmol/L (3.5-5.1) L 05/28/22 Cl 102 mmol/L (98-107) 05/28/22 CO2 36 mmol/L (21-32) H 05/28/22 Anion Gap -1 (3-11) L 05/28/22 BUN 8 mg/dl (6-23) 05/28/22 Creatinine 0.60 mg/dl (0.6-1.4) 05/28/22 Estimated GFR ( Amer) 111.6 ml/min 05/28/22 Estimated GFR (Non-Af Amer) 96.3 ml/min 05/28/22 BUN/Creatinine Ratio 13.3 (10-20) 05/28/22 Glu 74 mg/dl (70-99(Fasting)) 05/28/22 Ca 8.1 mg/dl (8.6-10.3) L 05/28/22 Mg 1.9 mg/dl (1.7-2.4) 05/28/22 03:57 Calcium Level 8.1 mg/dl (8.6-10.3) L 05/28/22 03:57 Prothromb Time International Ratio Pending 05/28/22 15:0 8 Microbiology 05/25/22 20:17 Aerobic Blood Culture - Preliminary Blood No growth in Aerobic bottle after 48 hours. Anaerobic Blood Culture - Preliminary No growth in Anaerobic bottle after 48 hours. 05/25/22 20:26 Aerobic Blood Culture - Preliminary Blood No growth in Aerobic bottle after 48 hours. Anaerobic Blood Culture - Final I & O Totals 24 Hours 05/27/22 05/28/22 05/29/22 06:59 06:59 06:59 Intake Total 2296.575 / 2339.150 402.575 / 402.575 840 / 840 Output Total 1311 / 1711 1751 / 1951 2451 / 2451 Balance 985.575 / 628.150 -1348.425 / -1548.425 -1611 / -1611 Cumulative 05/25/22 19:07 thru 05/28/22 15:16 Intake Total 7045.710 Output Total 5913 Balance 1132.710 RT Ventilator Mngmt (Last Documented) Ventilator Ordered Settings Respiratory Rate 20 05/28/22 15:10 Fraction of Inspired Oxygen 3 05/26/22 08:00 Ventilator - PT Measurements Respiratory Rate 20 Coding Level of Care Code 89621 CRITICAL CARE 1ST 30-74M Diagnoses Hypoxia R09.02 Acute hyponatremia E87.1 Shock R57.9 Hyperlipidemia E78.5 Hypertension I10 History of nasopharyngeal cancer Z85.819 Hx of aortic valve replacement Z95.2 CAD (coronary artery disease) I25.10 Sepsis A41.9 Sepsis acute organ dysfunction status: unspecified Sepsis type: sepsis due to unspecified organism LBBB (left bundle branch block) I44.7 (9) Sepsis Sepsis acute organ dysfunction status: unspecified Sepsis type: sepsis due to unspecified organism Qualified Code(s): A41.9 - Sepsis, unspecified organism
[2022-05-28] MEDS ORDERED: LIDOCAINE 2% JELLY 5 ML TUBE EXT ONE (15:33)
[2022-05-28 15:42] LABS: INR 1.1 (0.9-1.1); Partial Thromboplastin Ratio 1.1; Partial Thromboplastin Time 29.8 Seconds (21.0-31.0); Prothrombin Time 11.8 Seconds (9.0-12.0)
[2022-05-28] MEDS ORDERED: PROPOFOL IV EMULSION 10 MG/ML 20 ML VIAL IV ONE (16:10)
[2022-05-28] MEDS ORDERED: VASOPRESSIN 20 UNIT/ML VIAL ONE (16:10)
[2022-05-28] MEDS ORDERED: ceFAZolin 330 MG/ML 1 GM VIAL ONE (16:10)
[2022-05-28] MEDS ORDERED: ROCURONIUM BROMIDE 10 MG/ML 5 ML VIAL IV ONE (16:10)
[2022-05-28] MEDS ORDERED: PHENYLEPHRINE 100MCG/ML 5ML SYR ONE (16:10)
--- NOTE | 2022-05-28 16:25 | Procedure Note ---
Procedure Note Date of Service May 28, 2022 Note Procedure date: Noted above Procedure: Central venous access Pre-procedure indication: Need for definitive access, hypovolemic shock secondary to rapid epistaxis Post-procedure Diagnosis: same as above Prior to Procedure: Informed Consent: Emergent consent implied Attending Staff: Chidi Esquivel DO Resident/APC: Not applicable Skin Prep: Chlorhexidine Anesthesia: Patient under general anesthesia for nasal packing The identity of the patient was confirmed and a bedside time out was performed. Description of Procedure: After sterile prep and sterile drape utilizing standard sterile technique the superficial skin of the left femoral area was anesthetized. The target vessel was identified and entered with an 18-gauge needle. Dark venous blood return was noted. A guidewire was inserted through the needle and into the vessel. The needle was withdrawn and a skin tanja was made. A tissue dilator was advanced via Seldinger technique and removed. A triple lumen catheter was inserted via Seldinger technique and the guidewire removed. All ports arnav and flushed easily. A Biopatch was placed, and the catheter was secured via silk suture. A sterile dressing was then applied. Complications: None Estimated blood loss: Trace Patient tolerated the procedure well. Procedure Date: Noted Above Procedure: Procedural Ultrasound Indication: Central venous access Attending: Chidi Esquivel DO Resident/Physician Cold Meat Cook: Not applicable Artery visualized: Yes Vein visualized: Yes Compressible Vein: Yes Vein patent: Yes Guidewire or Short Catheter seen in vein prior to dilation: Yes Line confirmed in Vein with ultrasound: Yes Lung Sliding on side of attempt (if applicable): NA Impression: Successful central venous access placement Coding CPT Codes Tubes, Drains, and Vasc Access - Tubes, Drains, and Vasc Access: [id number] Insertion Of Non-tunneled Catheter Age 4 Yrs> ([id number]) [facility] [place] Procedure Codes (Charges) Tubes, Drains, and Vasc Access Procedure 1: Tubes, Drains, and Vasc Access: [id number] Insertion Of Non-tunneled Catheter Age 4 Yrs>
[2022-05-28] MEDS ORDERED: PROPOFOL IV EMULSION 10 MG/ML 100 ML VIAL IV ONE (16:54)
[2022-05-28] MEDS ORDERED: PROPOFOL BOLUS FROM BAG IV PRN (16:56)
[2022-05-28] MEDS ORDERED: STAT IV Infusion **Titration per Protocol STA (16:56)
[2022-05-28] MEDS ORDERED: fentaNYL BOLUS from BAG IV PRN (16:56)
[2022-05-28] MEDS ORDERED: fentaNYL citrate 2,500 MCG/250 ML BAG IV SCH (17:00)
[2022-05-28] MEDS ORDERED: propofoL 1,000 MG/100 ML VIAL IV SCH (17:00)
--- NOTE | 2022-05-28 17:00 | Anesthesia Procedure Note ---
Anesthesia Procedure Note Arterial Line Note Date of procedure: 05/28/22 Consent: Risk / Benefits Reviewed With: Emergency Monitors attached: Blood Pressure, CO2, EKG and Pulse Oximetry Oxygen delivery method: ETT Time out completed: Yes Premedication: None Laterality: Left Location: Radial Hand hygeine: Alcohol based hand rub Equipment/Supplies: Cap, Mask, Sterile gloves, Sterile drapes and Sterile procedures used Skin prep: Chloraprep Local medication: 2% Lidocaine (ml) Ultrasound used: Yes US equipment and supplies: Sterile Gel and Sterile Probe Cover Attempts: 1 Procedure Summary: Procedure Summary: 20 gauge angiocath advanced until return of bright red blood. Catheter threaded using seldinger technique with return of pulsatile, bright red blood. Catheter secured with tape and covered with occlusive dressing. Waveform consistent with correct arterial placement. After placement, normal perfusion was observed distal to the site of catheter placement. Post-procedure: Patient tolerated the procedure well without apparent complications Post-Procedure: Pt hemodynamically stable, Pt tolerates well and No complication Anesthesia Charges Arterial Line A Line Charges: 99671 Insert Art line [facility]/Blum
--- NOTE | 2022-05-28 17:00 | Post Operative Brief Note ---
PG Immediate Post Op with CF Date of Surgery May 28, 2022 Pre & Post Diagnosis Operation Date: 05/28/22 09:10 Pre-Op Diagnosis: SHORTNES OF BREATH Post-Op Diagnosis: SHORTNES OF BREATH I identified the patient and participated in the time-out.: Yes Procedure Operation Date: 05/28/22 09:10 Actual Procedures p Nasal Bleed Control(Not Applicable) - Gui Mendoza MD Surgeon Gui Mendoza MD Manager Mortgage none Estimated Blood Loss 5 Findings See Below Prior right maxillary antrostomy, total ethmoidectomy, sphenoidotomy, maxillectomy. Friable tissue R lateral sphenoid. No active bleeding. Nasal cavity/MANAGER MANAGEMENT and oral cavity/OP packed with merocel x2, strip gauze.
--- NOTE | 2022-05-28 17:11 | ENT Consultation ---
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 Active bleeding on exam, hypotensive. To OR for packing and then transfer to [facility] for CTA vs. angio and possible IR embolization. Will need abx ppx (unasyn) while packing in place. 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 Per patient and son, has received care at [facility] for similar presentation x2 and undergone embolization of SPA. He did receive 1u pRBCs this AM. Upon emergent arrival at bedside, patient awake and alert with bright red blood from bilateral nares and oral cavity. Maintaining airway. BP soft 70s/50s. Allergies Allergy/AdvReac Type Severity Reaction Status Date / Time No Known Allergies Allergy Verified 05/25/22 19:36 Home Medications Medication Instructions Recorded Confirmed Type atorvastatin 40 mg tablet 40 mg feeding tube QPM 09/18/18 05/25/22 History nitroglycerin 0.4 mg sublingual 0.4 mg sublingual UD PRN Chest Pain 09/18/18 05/25/22 History tablet albuterol sulfate 90 mcg/actuation 2 inh inhalation Q6H PRN shortness 05/06/20 05/25/22 Rx aerosol inhaler (ProAir HFA) of breath or wheezing #8.5 grams aspirin 81 mg chewable tablet 81 mg feeding tube QDL 02/19/21 05/25/22 History nutritional supplements 0.08 1 ea feeding tube QID 02/19/21 05/25/22 History gram-2 kcal/mL liquid for tube feed (Nutren 2.0) sodium chloride 0.65 % nasal spray 2 spray NA Q4H PRN NASAL DRYNESS 09/07/21 05/25/22 History aerosol (Saline Mist) clotrimazole 1 % topical cream 1 applic topical BID 12/28/21 05/25/22 History oxymetazoline 0.05 % nasal spray 2 spray intranasal Q12H PRN NOSE 12/28/21 05/25/22 History (Afrin (oxymetazoline)) BLEEDS triamcinolone acetonide 0.1 % 1 applic topical BID 12/28/21 05/25/22 History topical cream water for irrigation, sterile 120 ml irrigation 5XD 03/07/22 05/25/22 History ipratropium 0.5 mg-albuterol 3 mg 3 ml inhalation BID wheezing #90 mL 03/11/22 05/25/22 Rx (2.5 mg base)/3 mL nebulization soln sodium chloride 7 % for 4 ml NEB BIDR #120 mL 03/11/22 05/25/22 Rx nebulization cyanocobalamin (vitamin B-12) 1,000 mcg feeding tube DAILY 05/06/22 05/25/22 History 1,000 mcg tablet (Vitamin B-12) folic acid 1 mg tablet 1 mg feeding tube DAILY 05/06/22 05/25/22 History Iron Infusion 1 dose IV DIRECTED 05/25/22 05/25/22 History Patient History Medical History Acute hypoxemic respiratory failure Acute on chronic diastolic heart failure Acute renal insufficiency JULES (acute kidney injury) CAD (coronary artery disease) Cardiac murmur CHILD FROM RHEUMATIC FEVER CHF (congestive heart failure) Chronic pulmonary aspiration CKD (chronic kidney disease) stage 3, GFR 30-59 ml/min Elevated lactic acid level Former tobacco use Hearing deficit BILAT History of VT (myocardial infarction) 2017/ [facility] History of nasopharyngeal cancer s/p radiation, 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 Milton- [facility]/ NO STENTS History of cataract surgery History of colonoscopy with polypectomy 09/25/2018. Propofol given, no issues. [facility] History of heart valve replacement Bioprosthetic aortic valve - 2016 History of shoulder surgery RIGHT History of tonsillectomy History of tooth extraction History of vascular access device NO LONGER HAS PORT Hx of aortic valve replacement Status post insertion of percutaneous endoscopic gastrostomy (PEG) tube PLACED DUE TO PALATE SURGERY- THEN REMOVED 2014 Family History Father Cancer Liver Cancer Social History Smoking Status: Never smoker Tobacco Type: Cigarettes Second Hand Exposure: No; Tobacco Cessation Education Requested by Patient: No Hx Alcohol Use: No Hx Substance Use: No Preferred Language: [place] Citizen Communication Ability: Effective Communication Ability Comment: malformed palate Mathematics Professor Required: No Beliefs That Will Affect Care: None marital status: / Current Living Situation: Alone How many Children do You have: 1 Other Information That Helps Us Care for You: No Feels Safe at Home: Yes Safety Concerns: Feels Safe At This Time Assistive Devices: Cane Review of Systems Review of Systems: A ROS was deferred due to patient's clinical condition FHx noncontributory Physical Exam Physical Exam: In acute distress due to epistaxis Awake, alert, oriented Bright red blood from bilateral nares Oral cavity with maxillectomy defect and bright red blood/clots from R>L nasal cavity OP clot Neck with postradiation changes, palpable cricoid and thyroid cartilage Results & Data Vital Signs (Past 12 Hours) Vital Signs Temp Pulse Pulse Resp BP BP Pulse Ox 05/28/22 14:00 81 05/28/22 14:50 20 94 05/28/22 15:20 20 96 05/28/22 15:31 78 20 75/51 L 96 05/28/22 15:10 36.4 C L 81 20 97/58 L 88 L 05/28/22 12:27 36.5 C 78 20 152/73 H 100 05/28/22 11:21 71 18 100 05/28/22 11:33 36.5 C 69 20 145/78 H 100 05/28/22 11:32 36.5 C 66 20 145/75 H 97 05/28/22 11:03 36.5 C 70 20 128/75 100 05/28/22 10:48 36.5 C 70 20 151/77 H 100 05/28/22 10:31 36.4 C L 77 20 131/65 99 05/28/22 10:12 79 05/28/22 10:02 36.4 C L 76 20 124/74 97 05/28/22 09:54 36.4 C L 85 20 124/74 97 05/28/22 08:54 36.4 C L 79 20 130/72 97 05/28/22 08:24 36.6 C 81 20 109/72 89 L 05/28/22 08:09 36.5 C 88 20 99/55 L 88 L 05/28/22 07:48 36.5 C 89 20 88/44 L 94 05/28/22 07:17 84 18 98 05/28/22 07:14 36.6 C 82 18 125/75 98 O2 Del Method O2 Flow Rate 05/28/22 14:00 05/28/22 14:50 Oxymask 15 05/28/22 15:20 Oxymask 15 05/28/22 15:31 05/28/22 15:10 05/28/22 12:27 4 05/28/22 11:21 Oxymask 4 05/28/22 11:33 05/28/22 11:32 05/28/22 11:03 4 05/28/22 10:48 4 05/28/22 10:31 4 05/28/22 10:12 05/28/22 10:02 05/28/22 09:54 05/28/22 08:54 05/28/22 08:24 05/28/22 08:09 4 05/28/22 07:48 05/28/22 07:17 Oxymask 4 05/28/22 07:14 Room Air PG Care Time/CCT Total # of Minutes Spent Total Time Spent with Patient: Total time spent is greater than 50% in coordination of care (as documented) at patient's floor/unit and/or counseling patient: Coding Level of Care Code 86950 IN/OBS CONSULT LVL 4,60M Diagnoses History of nasopharyngeal cancer Z85.819 Epistaxis R04.0
--- NOTE | 2022-05-28 17:19 | Communication Note ---
Date of Service: May 28, 2022 Alerted by nursing staff and OR about need for emergent OR case involving Mr. Dodson. See ICU/hospitalist/ENT notes for further details. Patient needed to come to OR for control of bleeding from nasopharyngeal CA. He has a very long and complicated PMH to include previous radical neck dissection and removal of soft and part of hard palate. Went with FIELD OPERATIONS SUPERVISOR members to patient's bedside and transported him to OR on monitor. Patient had pharynx packed and was noted to have significant bleeding from mouth and nose. Brought into the OR and placed on monitor with FM oxygen. Sedated with IV versed and ketamine. Awake glidscope intubation attempted and was successful on first attempt. Patient remained upright during intubation and spontaneously breathing. ETCO2 confirmed and patient placed on ventilator with volatile agent turned on. Tube secured in placed and ICU physician did fiberoptic bronch through ETT and suctioned mild amount of blood via ETT (likely from previous aspiration). Tube near steven and pulled back 2cm. ENT physician started procedure while several PIV's were placed and L radial arterial line placed by myself. ICU physician placed left femoral vein (groin) central line as we did not have access to his neck during procedure. Patient had BP supported with several doses of vasoactive medications and IV fluid therapy (colloid and crystalloid). He also was transfused 4 units of pRBC's (fourth unit still running upon transfer to ICU after procedure finished). His blood pressure improved and he maintained a normal HR and rhythm throughout procedure. Plan was to keep patient intubated post procedure and take to ICU as he will be transferred to tertiary care facility. His nose and pharynx was packed from surgeon (see her note for full details). He was brought to ICU on monitor with ambu oxygen via ETT. Respiratory connected him to ventilator and report given to ICU staff. Propofol sedation will be initiated for sedation w denny awaiting transfer.
--- NOTE | 2022-05-28 17:20 | Anesthesiology Progress Note ---
Date of Service May 28, 2022 Anesthesia Post Procedure Vital Signs Vital Signs: Temp Pulse Pulse Resp BP BP BP 05/28/22 17:16 52 L 18 05/28/22 16:44 50 L 18 147/70 H 05/28/22 14:00 81 05/28/22 14:50 20 05/28/22 15:20 20 05/28/22 15:31 78 20 75/51 L 05/28/22 15:10 36.4 C L 81 20 97/58 L 05/28/22 12:27 36.5 C 78 20 152/73 H 05/28/22 11:21 71 18 05/28/22 11:33 36.5 C 69 20 145/78 H 05/28/22 11:32 36.5 C 66 20 145/75 H 05/28/22 11:03 36.5 C 70 20 128/75 05/28/22 10:48 36.5 C 70 20 151/77 H 05/28/22 10:31 36.4 C L 77 20 131/65 05/28/22 10:12 79 05/28/22 10:02 36.4 C L 76 20 124/74 05/28/22 09:54 36.4 C L 85 20 124/74 05/28/22 08:54 36.4 C L 79 20 130/72 05/28/22 08:24 36.6 C 81 20 109/72 05/28/22 08:09 36.5 C 88 20 99/55 L 05/28/22 07:48 36.5 C 89 20 88/44 L 05/28/22 07:17 84 18 05/28/22 07:14 36.6 C 82 18 125/75 05/28/22 05:00 05/28/22 03:36 36.8 C 77 20 85/42 L 05/27/22 22:04 73 05/27/22 23:13 36.9 C 70 18 122/78 05/27/22 19:03 36.9 C 77 20 105/62 05/27/22 19:49 05/27/22 19:20 71 18 05/27/22 18:30 36.5 C 70 16 104/62 Pulse Ox O2 Del Method O2 Del Method O2 Flow Rate O2 Flow Rate FiO2 05/28/22 17:16 100 50 05/28/22 16:44 98 Mechanical Vent 05/28/22 14:00 05/28/22 14:50 94 Oxymask 15 05/28/22 15:20 96 Oxymask 15 05/28/22 15:31 96 05/28/22 15:10 88 L 05/28/22 12:27 100 4 05/28/22 11:21 100 Oxymask 4 05/28/22 11:33 100 05/28/22 11:32 97 05/28/22 11:03 100 4 05/28/22 10:48 100 4 05/28/22 10:31 99 4 05/28/22 10:12 05/28/22 10:02 97 05/28/22 09:54 97 05/28/22 08:54 97 05/28/22 08:24 89 L 05/28/22 08:09 88 L 4 05/28/22 07:48 94 05/28/22 07:17 98 Oxymask 4 05/28/22 07:14 98 Room Air 05/28/22 05:00 Oxymask 4 05/28/22 03:36 95 Oxymask 4.0 05/27/22 22:04 05/27/22 23:13 98 Oxymask 4.0 05/27/22 19:03 96 Oxymask 4.0 05/27/22 19:49 Oxymask 4 05/27/22 19:20 97 Oxymask 4 05/27/22 18:30 97 Oxymask 4 Transfer of Care Handoff Completed per policy Notes Patient Amnestic to Procedure: Yes Nausea / Vomiting: adequately controlled Pain: adequately controlled Airway Patency, RR, SpO2: stable & adequate (intubated and sedated) BP & HR: stable & adequate Hydration State: stable & adequate Anesthetic Complications: no major complications apparent
--- NOTE | 2022-05-28 17:41 | Operative Report (OR) ---
DATE OF SERVICE: 05/26/2022 PREOPERATIVE DIAGNOSES: 1. Epistaxis. 2. History of nasopharyngeal cancer. POSTOPERATIVE DIAGNOSES: 1. Epistaxis. 2. History of nasopharyngeal cancer. PROCEDURE: Endoscopic control of epistaxis. SURGEON: Gui Mendoza MD ANESTHESIA: General, orotracheal. ESTIMATED BLOOD LOSS: 5 mL. INTRAOPERATIVE FINDINGS: 1. Previous right-sided endoscopic sinus surgery with patent maxillary antrostomy, total ethmoidecto my, sphenoidotomy. 2. Significant clot within the bilateral nasal cavities and nasopharynx. 3. Palatal defect at prior maxillectomy site. 4. No active bleeding. 5. Friable mucosa of the lateral aspect of the right sphenoid sinus. SPECIMENS: None. COMPLICATIONS: None. INDICATIONS FOR THE PROCEDURE: The patient is a 77-year-old male with a history of nasopharyngeal ca ncer treated with prior surgery and chemoradiation therapy completed in 2014, who was admitted to the hospital with aspiration pneumonia and sepsis and then noted to have a large volume epistaxis on the floor. This was unable to be controlled at the bedside and the patient was hypotensive, thus the de cision was made to take the patient emergently to the operating room for endoscopic control of epista xis. Of note, he had previously been treated at [facility] several times including embolizat ion of his sphenopalatine artery for similar issues. DESCRIPTION OF PROCEDURE: The patient was brought emergently from the floor directly to the operatin g room. He was identified there and placed supine on the operating room table. After the successful induction of general orotracheal anesthesia by the Anesthesia team as well as placement of a central line by the ICU team as well as arterial lines by the Anesthesia team, the patient was prepped and d raped in the usual fashion for an endoscopic control of epistaxis. The bilateral nasal cavities were decongested using Afrin-soaked pledgets. A diagnostic nasal endoscopy was performed using a 4 mm 0- degree rigid endoscope. Significant clots in the bilateral nasal cavities, nasopharynx, oral cavity, and oropharynx were then cleared. No active bleeding was noted. The patient was noted to have a pr ior right-sided endoscopic sinus surgery and friable mucosa at the lateral aspect of the right spheno id sinus. Two Merocel sponges were then placed in the right nasal cavity abutting this friable mucos a. The remaining right nasal cavity as well as the left nasal cavities were then packed tightly with an 1-inch iodoform gauze in 2 pieces. The oral cavity was then packed up to the maxillectomy site a gain using 1-inch iodoform gauze. The ICU team performed a bronchoscopy through the patient's endotr acheal tube to clear bloody secretions. Adequate hemostasis was noted. The patient was then turned over to the Anesthesia team and taken to the ICU in stable condition. I was present and performed th e entire procedure myself. Job ID: [id number]
--- NOTE | 2022-05-28 17:48 | Discharge Summary ---
Date of Service May 28, 2022 Admission HPI Per Admitting Provider This is a 77-year-old male with past medical history significant for chronic respiratory failure with hypoxia and hypercapnia, on home oxygen 2-3 liters, chronic diastolic CHF with EF of 55% on echo in 2020, chronic left bundle-branch block, CAD status post CABG, aortic stenosis, status post bioprosthetic aortic valve replacement, history of COPD, chronic pulmonary aspiration, status post PEG tube placement, hypertension, hyperlipidemia, history of nasopharyngeal cancer, status post chemoradiation in 2013, chronic anemia, hemoglobin baseline at 11 to 13, history of tobacco abuse, chronic kidney disease stage III, sensorineural hearing loss of both ears. Comes because of shortness of breath and cough and hypoxia at home. The patient in the end of February and March had a couple of admissions for aspiration pneumonia. It looks like at home the patient was desaturating at 70%. Son increased oxygen to 5 liters, but he was not getting better, was brought in here. Currently, he is placed on nonrebreather and saturating okay on nonrebreather. But his blood pressure dropped; even after 2 liters of fluids, he was still low and he was started on Levophed drip in the ER. The patient is alert and awake, able to give his history. Says he has cough for ew days, not able to bring any phlegm. Denies any fevers, no chest pain, no nausea. HAs very dry mouth. 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 All nutrition and meds through peg tube . He sometimes uses ice chips in the mouth and spits them down, does not swallow. Denies any abdominal pain. No diarrhea or constipation. Normal bladder movements. Ambulates with a walker. Lives alone. Son lives close by. When he takes off the nonrebreather, his oxygen saturation is dropping in to 70%. In the ER, his white count is 18, hemoglobin 7.7. Lactate was 1. Procalcitonin was 0.6. BNP 264. CTA chest is showing ," small right pleural effusion, changes of pulmonary edema with suspected infection of the right lower and middle lobes, attenuation of the right mainstem bronchus with soft tissue in the right hilum, concerning for neoplasm versus confluent lymphadenopathy. Findings are new since September 2021 . In the absence of prior imaging of this finding, PET/CT would be the next study of choice" as per radiology. ALLERGIES: No known drug allergies. PAST MEDICAL HISTORY: As mentioned above. PAST SURGICAL HISTORY: Alveoloplasty with extraction, right carotid catheter placement, colonoscopy, CABG, EGD, right shoulder reconstruction following a dislocation, nasal sinus endoscopy, cataract surgery, tonsillectomy, bioprosthetic aortic valve replacement, surgical removal of erupted tooth. MEDICATIONS: The patient is on albuterol 2 puffs inhalation q. 6 hours p.r.n., aspirin 81 mg p.o. daily, atorvastatin 40 mg p.o. daily, clotrimazole topical b.i.d., vitamin B12 1000 mcg daily, folic acid 1 mg daily, DuoNeb inhalation b.i.d., iron infusion as directed, nitroglycerin 0.4 mg sublingual p.r.n., Nutren 2.0 feeding tube q.i.d., Afrin 2 sprays p.r.n. nosebleeds, saline nasal spray 2 sprays q. 4 hours p.r.n., sodium chloride 4 mL neb b.i.d., triamcinolone topical b.i.d., water for irrigation sterile 120 mL 5 times a day. FAMILY HISTORY: Significant for mother has arthritis, at the age of 93; father had liver cancer. SOCIAL HISTORY: , lives alone. Son lives close by. Former smoker, quit in 2013, smoked 1 pack a day for 50 years. No alcohol use. No drug use. Admission Exam Per Admitting Provider PHYSICAL EXAMINATION: GENERAL: The patient is of moderate build, seems to be in mild respiratory distress. VITAL SIGNS: Temperature 37.4, pulse 70, respiratory rate 18, blood pressure 107/60, oxygen 100% on 12 liters nonrebreather. HEENT: Pupils equal, round and reactive to light. Oral mucosa dry. NECK: No JVD. No neck masses. CARDIOVASCULAR: S1 and S2 heard. Regular rate and rhythm. No murmur, no gallop. RESPIRATORY SYSTEM: Normal AP diameter. No accessory muscle use. No obvious wheezing or crackles. ABDOMEN: Soft, bowel sounds present, nontender, no distentions. PEG tube site, no erythema or drainage seen. CENTRAL NERVOUS SYSTEM: Alert and oriented. Speech is clear. Insight is okay. Obeys simple commands. Moves extremities. EXTREMITIES: No erythema or edema seen. Principal Diagnosis Septic Shock Epistaxis Discharge Exam General: copious bleeding from the nose Skin: No noted rashes or bruises Psych: Appropriate mood and affect Neuro: No gross deficits HEENT: copious bleeding from nose, mouth CV: RRR Resp: no increased effort of breathing. Abdomen: Soft, nontender, nondistended. Extremities: No edema in lower extremities bilaterally. Discharge Data Allergies Allergy/AdvReac Type Severity Reaction Status Date / Time No Known Allergies Allergy Verified 05/25/22 19:36 Consultations 05/25/22 21:45 ED Decision to Admit Stat 05/26/22 02:18 Consult Entry Level Sales Representative Routine 05/28/22 14:17 Consult Otolaryngology (Head and Neck) Stat 05/28/22 14:41 Consult Entry Level Sales Representative Stat Procedures Performed Operation Date: 05/28/22 09:10 Actual Procedures p Nasal Bleed Control(Not Applicable) - Gui Mendoza MD Ordered Studies 05/26/22 00:16 CT angio chest PE protocol Stat Hospital Course (1) Epistaxis: (2) Shock: (3) Acute hypoxemic respiratory failure: (4) Aspiration pneumonia: (5) Anemia: (6) Hyperlipidemia: (7) History of nasopharyngeal cancer: (8) CHF (congestive heart failure): (9) Acute hyponatremia: (10) CAD (coronary artery disease): (11) Electrolyte abnormality: (12) COPD (chronic obstructive pulmonary disease): Plan 77-year-old male admitted originally with septic shock secondary to aspiration pneumonia, currently with persistent copious nose bleed in the setting of 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 -packing in the OR by ENT with ICU admission and transfer to [facility] for further evaluation. Anemia -received 1 unit of blood this AM by ironworker foreman Continue to trend H/H and transfuse as needed Septic Shock -currently resolved, was downgraded from the ICU prior to epistaxis Hypoxia/Respiratory distress/Aspiration pneumonia - as above, iimproved and downgraded -continue to wean oxygen support to baseline (pt uses oxygen at home) Possible lung neoplasm -noted on CT chest -Recommended possible PET scan to be done outpatient for followup. Electrolyte abnormalities -replete as needed COPD -continue duonebs scheduled History of nasopharyngeal cancer, status post chemoradiation, status post PEG tube placement -Nutrition and medications via PEG tube -Appreciate Nutrition consult CHF -continue to monitor CAD -continue daily aspirin, statin HLD -continue statin CKD -continue to monitor kidney function Diet: NPO, has PEG tube for feedings. DVT prophylaxis:Due to epistaxis, d/c aspirin and Lovenox Code status: Full code Dispo: ICU for transfer to [facility] Total Time Total Time Spent Total Time Spent (In Minutes): greater than 30 minutes Discharge Plan Discharge Items Patient Disposition: Transfer Acute Care Hospital Reason For Visit: SHORTNES OF BREATH Discharge Diagnosis: Epistaxis Anemia requiring transfusion Activity: Per Instructions section Non-emergency contact: Primary Care Provider, Hospitalist and Specialist Call non-emergency contact if: your symptoms worsen Follow-up/Referrals: Prudencio Burns MD [Primary Care Provider] - Diet: Nothing by Mouth Diet Comment: Pt has PEG tube Addtl Attending Provider Instructions: 77-year-old male admitted originally with septic shock secondary to aspiration pneumonia, currently with persistent copious nose bleed in the setting of 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 -packing in the OR by ENT with ICU admission and transfer to [facility] for further evaluation. Anemia -received 1 unit of blood this AM by ironworker foreman Continue to trend H/H and transfuse as needed Septic Shock -currently resolved, was downgraded from the ICU prior to epistaxis Hypoxia/Respiratory distress/Aspiration pneumonia - as above, iimproved and downgraded -continue to wean oxygen support to baseline (pt uses oxygen at home) Possible lung neoplasm -noted on CT chest -Recommended possible PET scan to be done outpatient for followup. Electrolyte abnormalities -replete as needed COPD -continue duonebs scheduled History of nasopharyngeal cancer, status post chemoradiation, status post PEG tube placement -Nutrition and medications via PEG tube -Appreciate Nutrition consult CHF -continue to monitor CAD -continue daily aspirin, statin HLD -continue statin CKD -continue to monitor kidney function Diet: NPO, has PEG tube for feedings. DVT prophylaxis:Due to epistaxis, d/c aspirin and Lovenox Code status: Full code Dispo: ICU for transfer to [facility] Addtl Quality Assurance/R&D Lab Technician Provider Instructions: Current Inpatient Medications Albuterol (Albuterol Hfa 8 Gm Inhaler) 2 puffs INH Q6H PRN PRN Reason: shortness of breath or wheezin Stop: 06/25/22 02:17 Albuterol (Albut/Ipratrop 3mg/0.5mg Neb 3 Ml Vial) 3 ml NEB Q2H PRN; Protocol PRN Reason: SOB/WHEEZING Stop: 06/25/22 02:37 Atorvastatin Calcium (Atorvastatin 40 Mg Tab) 40 mg PEG QPM ROYA Stop: 06/25/22 20:59 Last Admin: 05/27/22 21:25 Dose: 40 mg Fentanyl Citrate (Fentanyl Bolus From Bag) 50 mcg IV Q60M PRN PRN Reason: Pain or Agitation Stop: 06/11/22 16:55 Folic Acid (Folic Acid 1 Mg Tab) 1 mg PEG DAILY [facility] Stop: 06/25/22 08:59 Last Admin: 05/28/22 08:02 Dose: 1 mg Piperacillin Sod/Tazobactam (Sod 4.5 gm/ Dextrose) 120 mls @ 30 mls/hr IV Q8H [facility]; Protocol Stop: 06/02/22 03:59 Last Infusion: 05/28/22 15:45 Dose: Infused Sodium Chloride (Nss) 250 mls @ 15 mls/hr IV .[id number] PRN PRN Reason: For Transfusion Duration Stop: 05/29/22 00:35 Fentanyl Citrate (Fentanyl Citrate) 2,500 mcg in 250 mls @ 2.5 mls/hr IV .Q96H ROYA; Protocol Stop: 06/11/22 16:59 Last Admin: 05/28/22 17:41 Dose: 25 mcg/hr, 2.5 mls/hr Propofol (Diprivan) 1,000 mg in 100 mls @ 13.488 mls/hr IV .Q7H25M ROYA; Protocol Stop: 05/31/22 16:59 Last Titration: 05/28/22 17:46 Dose: 40 mcg/kg/min, 13.5 mls/hr Magnesium Oxide (Magnesium Oxide 400 Mg Tab) 400 mg PO BID [facility] Stop: 06/26/22 20:59 Last Admin: 05/28/22 08:03 Dose: 400 mg Oxymetazoline HCl (Oxymetazoline 0.05% 30 Ml Btl) 2 sprays NA Q12H PRN PRN Reason: NOSE BLEEDS Stop: 06/25/22 02:17 Propofol (Propofol Bolus From Bag) 20 mg IV Q5M PRN PRN Reason: Sedation Stop: 05/31/22 16:55 Last Admin: 05/28/22 17:47 Dose: 20 mg Sodium Chloride (Sodium Chloride 0.65% Na Soln 45 Ml ([place])) 2 sprays NA Q4H PRN PRN Reason: NASAL DRYNESS Stop: 06/25/22 02:17 Pending Studies at Discharge: No Stand-Alone Forms: My [facility] Skilled Items Patient informed of condition?: Yes DNR: No Discharge Level of Care: Other Communicable Disease: No Discharge Prognosis: Stable Lines: Peripheral IV Urinary Catheter: No Medications and DC Order Prescriptions: Continued atorvastatin 40 mg Tablet 40 mg feeding tube QPM nitroglycerin 0.4 mg Tablet, Sublingual 0.4 mg sublingual UD PRN (Reason: Chest Pain) Rx Instructions: NEEDEDFOR CHEST PAIN : ONE TABLET UNDER THE TONGUE EVERY 5 MINUTES UP TO THREE DOSES. albuterol sulfate [ProAir HFA] 90 mcg/actuation HFA aerosol inhaler 2 inh inhalation Q6H PRN (Reason: shortness of breath or wheezing) Qty: 8.5 0RF Nutren 2.0 0.08 gram-2 kcal/mL Liquid 1 ea feeding tube QID Rx Instructions: administer via gravity bag Saline Mist 0.65 % aerosol,spray 2 spray NA Q4H PRN (Reason: NASAL DRYNESS) oxymetazoline [Afrin (oxymetazoline)] 0.05 % [place],Non-Aerosol 2 spray INTRANASAL Q12H PRN (Reason: NOSE BLEEDS) triamcinolone acetonide 0.1 % cream 1 applic TOPICAL BID Rx Instructions: APPLY TO GRANULATION TISSUE AROUND G-TUBE TWICE DAILY FOR ONE WEEK AT A TIME ONLY clotrimazole 1 % cream 1 applic TOPICAL BID Rx Instructions: APPLY TOPICALLY TO PEG SITE TWO TIMES A DAY. water for irrigation, sterile Solution 120 ml IRRIGATION 5XD Rx Instructions: into feeding tube sodium chloride 7 % Solution For Nebulization 4 ml NEB BIDR Qty: 120 0RF ipratropium-albuterol 0.5 mg-3 mg(2.5 mg base)/3 mL solution for nebulization 3 ml inhalation BID Qty: 90 0RF cyanocobalamin (vitamin B-12) [Vitamin B-12] 1,000 mcg tablet 1,000 mcg feeding tube DAILY folic acid 1 mg tablet 1 mg feeding tube DAILY Iron Infusion 1 dose IV DIRECTED Rx Instructions: PER PT'S SON--"SCHEDULED THURSDAYS, 05/27/22, IN HOME". Discontinued aspirin 81 mg Tablet,Chewable 81 mg feeding tube QDL Rx Instructions: ON HOLD Admission Data Admit Date/Time: 05/26/22 00:31 Attending Provider: Komal Chan Admit Provider: Kingsley Holly Primary Care Provider: Prudencio Burns Other Providers: Aretha Dunbar I. ; Braulio Dalton ; Kingsley Holly ; Mikel Esquivel ; Gui Mendoza
[2022-05-28 19:21] LABS: Hemoglobin 12.6 g/dl (14.0-18.0); Mean Corpuscular Hemoglobin 29.5 pg (25.0-34.0); Mean Corpuscular Hgb Conc 33.2 g/dL (32.0-36.0); Mean Platelet Volume 9.7 fL (9.4-12.4); Platelet Count 150 K/uL (130-400); RDW Standard Deviation 49.1 fL (36.4-46.3); Red Blood Count 4.27 M/uL (4.70-6.10); White Blood Count 12.99 K/ul (4.8-10.8)
[2022-05-28 19:47] LABS: Acanthocytes 1+; Basophils # (auto) 0.05 K/uL (0-0.2); Basophils % (auto) 0.4 %; Eosinophils # (auto) 0.34 K/uL (0-0.50); Eosinophils % (auto) 2.6 %; Immature Granulocytes # (auto) 0.08 K/uL (0.01-0.20); Immature Granulocytes % (auto) 0.6 %; Lymphocytes # (auto) 0.66 K/uL (1.2-3.4); Lymphocytes % (auto) 5.1 %; Monocytes # (auto) 1.03 K/uL (0.11-0.59); Monocytes % (auto) 7.9 %; Neutrophils # (auto) 10.83 K/uL (1.40-6.50); Neutrophils % (auto) 83.4 %; Polychromasia 1+; Tear Drop Cells 1+
== END 2022-05-28 18:32 | disposition short-term general hospital (02) | DRG 871 ==
LOC: ED 19:12 → SUATTDRO 05-26 00:31 → 1E 05-26 00:31 → 2S 05-27 18:28 → 1E 05-28 16:47

== ENCOUNTER 2022-09-05 22:15 | Inpatient (IN) ==
[2022-09-05] MEDS ORDERED: dexAMETHasone**PF** 10 MG/ML VIAL IV ONE (22:23)
[2022-09-05] MEDS ORDERED: ALBUT/IPRATROP 3MG/0.5MG NEB 3 ML VIAL NEB ONE (22:23)
--- NOTE | 2022-09-05 22:28 | Emergency Department Note ---
Impression & Plan Acute exacerbation of chronic obstructive pulmonary disease, Acute dehydration, Acute on chronic respiratory failure with hypoxia and hypercapnia, Acute hypotension ED Provider Note Name: DAXA WRIGHT Age: 77 Sex: M Arrives Via: Ambulance Informant: Patient, EMS ED Provider: Mark Stock MD Chief Complaint: Respiratory distress Impression: As per impressions above Medical Decision Makin-year-old gentleman with a history of COPD as well as CHF, CAD, pneumonia, multiple other comorbidities arrives for evaluation of worsening 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 Rapidly worsened throughout the day. He is hypoxic to 70% on his typical 4 L. He has tight diffuse lung sounds with wheezing. Chest x-ray no clear acute pathology. VBG does show some acidosis with significant hypercapnia. He was given hour-long nebulizer with IV steroids and looks significantly improved after this. Of note patient's blood pressure did drop while here. He does not. Bit dehydrated thus he was given some IV fluids and blood pressure started trending back up. When reviewing chart blood pressure does tend to run a bit on the low side though usually not into the 70s as it did earlier. Cultures had been obtained and he was also given some IV cefepime empirically for coverage. That said I suspect the hypotension is not septic related and I feel he does not have severe sepsis or septic shock. Furthermore given his history of congestive heart failure he was given 1 L normal saline bolus IV rather than 30 mL/kg IV fluids. Patient is breathing significantly better he feels much better and his vital signs of improved he is agreeable to hospitalization. Blood pressures remain a bit soft but he is without symptoms and again reviewing chart it appears that this is not atypical for him. Note initial lactate white count and procalcitonin are all within normal ranges. Prior Medical Record and Triage/Nursing Notes reviewed by Me Extensive chart reviewed by me including previous discharge summaries from hospitalization stays Differentials:Reactive airway disease, pneumonia, pneumothorax, COPD, CHF, infections, cardiac ischemia, pulmonary embolism, musculoskeletal, gastrointestinal, as well as other pathologies. Vital Signs: reviewed and remarkable for hypoxic initially improved with oxy mask. Blood pressure did start dropping down responded to some IV fluids. Hold off on further as history of CHF Interventions: DuoNeb 1 hour, Decadron 10 mg IV, cefepime 2 g IV, 1 L normal saline bolus Labs:Reviewed by me and remarkable for no significant abnormalities Imagin view chest x-ray reveals emphysematous changes and scarring with atelectasis/infiltrate/scarring similar in right lower lobe to previous chest x-rays. This is as per my interpretation EKG:Per my interpretation. Indication 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 Normal sinus rhythm at 79 bpm QTc of 419. There is no ectopy nor ischemia. When compared to an EKG of June 13, 2022 there is no significant change. Cardiac/Tele Monitoring: Cardiac Monitoring: An Order was placed for continuous cardiac monitoring. The monitor shows a rate of 80 with a normal sinus rhythm. [facility] Plan: Disposition: Discharged.Home. Referred to: PCP Condition: Fair History of Present Illness:77-year-old gentleman arrives for evaluation of 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 Patient states that his breathing is gotten worse throughout the day. His oxygen was starting to drop into the 70s. He usually uses 4 L of oxygen however was not able to breathe with that. He called 911. EMS found him to have an oxygen in the 70s and increased him to 15 L nasal cannula. Patient states he feels much better now. Denies any chest pain, abdominal pain, headache, nausea, vomiting or other concerning signs or symptoms. No recent fevers. Patient has a long history of COPD and CHF with many previous hospitalizations along with multiple other medical comorbidities Past History:See Below Home Medications:See Below Allergies:nkda Vitals:Blood Pressure: 104/61, Pulse 70, RR 30, T 36.8C, O2 90% on 15L Physical Exam: GENERAL: Patient is chronically unwell appearing and in moderate distress. RESPIRATORY: Moderately dyspneic with diffuse tight lung sounds wheezing and crackles throughout. CARDIOVASCULAR: Regular rate and rhythm.No murmurs, rubs, gallops appreciated. GASTROINTESTINAL: Abdomen soft, non-tender, no peritonitis.PEG tube upper abdomen EXTREMITIES: Normal motion all extremities, no cyanosis, no edema. NEUROLOGIC: Alert and oriented, no acute motor or sensory deficits, no focal weakness, cranial nerves grossly intact. SKIN: No rash, no jaundice, no diaphoresis. PSYCH: Appropriate GCS: 15 ED Course: Times/Reassessments: Patient has a vastly improved respiratory status following an hour neb and IV steroids. Still requiring increased oxygen but no longer the 15 L. Blood pressure started trending down. Review of chart notes he does have a chronically low blood pressure to begin with. He did drop into the 70s which point he is given a liter of fluid with improvement. Patient without any signs or symptoms of hypotension otherwise. Patient tolerated fluids well Mark Stock MD Past Med/Surg History Medical History Acute hypoxemic respiratory failure Acute on chronic diastolic heart failure Acute renal insufficiency JULES (acute kidney injury) CAD (coronary artery disease) Cardiac murmur CHILD FROM RHEUMATIC FEVER CHF (congestive heart failure) Chronic pulmonary aspiration CKD (chronic kidney disease) stage 3, GFR 30-59 ml/min Elevated lactic acid level Former tobacco use Hearing deficit BILAT History of [place] (myocardial infarction) 2017/ [facility] History of nasopharyngeal cancer s/p radiation, 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 Milton- [facility]/ NO STENTS History of cataract surgery History of colonoscopy with polypectomy 09/25/2018. Propofol given, no issues. History of coronary artery bypass graft One vessel - 2016 - [facility] [place] History of heart valve replacement Bioprosthetic aortic valve - [place] 2016 History of shoulder surgery RIGHT History of tonsillectomy History of tooth extraction History of vascular access device NO LONGER HAS PORT Hx of aortic valve replacement Status post insertion of percutaneous endoscopic gastrostomy (PEG) tube PLACED DUE TO PALATE SURGERY- THEN REMOVED 2014 Family History Father Cancer Liver Cancer Social History Smoking Status: Never smoker Tobacco Type: Cigarettes Second Hand Exposure: No; Do You Dip or Chew Tobacco: No; Hx Alcohol Use: No Hx Substance Use: No Preferred Language: [place] Communication Ability: Effective Communication Ability Comment: malformed palate Plant Mechanic Required: No Beliefs That Will Affect Care: None marital status: / Current Living Situation: Alone How many Children do You have: 1 Feels Safe at Home: Yes Assistive Devices: Cane Allergies Allergies Allergy/AdvReac Type Severity Reaction Status Date / Time No Known Allergies Allergy Verified 09/05/22 23:25 Home Meds Home Medications Medication Instructions Recorded Confirmed atorvastatin 40 mg tablet 40 mg feeding tube QPM 09/18/18 09/05/22 nitroglycerin 0.4 mg sublingual 0.4 mg sublingual UD PRN Chest Pain 09/18/18 09/05/22 tablet nutritional supplements 0.08 1 ea feeding tube QID 02/19/21 09/05/22 gram-2 kcal/mL liquid for tube feed (Nutren 2.0) clotrimazole 1 % topical cream 1 applic topical BID 12/28/21 09/05/22 water for irrigation, sterile 120 ml irrigation 5XD 03/07/22 09/05/22 cyanocobalamin (vitamin B-12) 1,000 mcg feeding tube DAILY 05/06/22 09/05/22 1,000 mcg tablet (Vitamin B-12) folic acid 1 mg tablet 1 mg feeding tube DAILY 05/06/22 09/05/22 acetaminophen 325 mg tablet 650 mg PO DIRECTED PRN Pain 09/05/22 09/05/22 (Tylenol) aspirin 81 mg chewable tablet 81 mg PO DAILY 09/05/22 09/05/22 fluticasone fur. 100 mcg-umeclid 1 inh inhalation DAILY 09/05/22 09/05/22 62.5 mcg-vilant 25 mcg inhalat.powder (Trelegy Ellipta) ipratropium 0.5 mg-albuterol 3 mg 3 ml inhalation Q6H PRN Shortness 09/05/22 09/05/22 (2.5 mg base)/3 mL nebulization Of Breath Or Wheezing soln polyethylene glycol 3350 17 17 g feeding tube DAILY 09/05/22 09/05/22 gram/dose oral powder (Miralax) Previous Rx's Medication Instructions Recorded albuterol sulfate 90 mcg/actuation 2 inh inhalation Q6H PRN shortness 05/06/20 aerosol inhaler (ProAir HFA) of breath or wheezing #8.5 grams Results & Data (ED) Vital Signs Vital Signs - 24 hr 09/05/22 22:10 09/05/22 22:10 09/05/22 22:10 Temperature 36.8 C Temperature Source Oral Pulse Rate 78 Pulse Rate [Apical] Respiratory Rate 20 Respiratory Effort / Characteristics Blood Pressure 104/61 Blood Pressure [Right Arm] Blood Pressure Mean 75 Blood Pressure Mean [Right Arm] Pulse Oximetry 90 90 Oxygen Delivery Method Oxymask Oxymask Oxymask Oxygen Flow Rate 15 15 15 Sepsis Recent Fever Within 48 Hours No Sepsis New/Unexplained Change in Mental Status N/A Sepsis Action Taken by Nursing No Action Required 09/05/22 22:48 09/05/22 22:49 09/05/22 22:39 Temperature Temperature Source Pulse Rate Pulse Rate [Apical] 80 Respiratory Rate 26 H 18 Respiratory Effort / Characteristics Non-Labored Spontaneous Blood Pressure Blood Pressure [Right Arm] 110/79 Blood Pressure Mean Blood Pressure Mean [Right Arm] 89 Pulse Oximetry 92 97 Oxygen Delivery Method Oxymask Oxymask Nasal Cannula Oxygen Flow Rate 15 15 15 Sepsis Recent Fever Within 48 Hours Sepsis New/Unexplained Change in Mental Status Sepsis Action Taken by Nursing 09/05/22 22:23 09/05/22 22:46 09/05/22 23:00 Temperature Temperature Source Pulse Rate 79 82 80 Pulse Rate [Apical] Respiratory Rate 22 22 Respiratory Effort / Characteristics Blood Pressure 106/73 110/79 87/57 L Blood Pressure [Right Arm] Blood Pressure Mean 84 89 67 Blood Pressure Mean [Right Arm] Pulse Oximetry 92 93 93 Oxygen Delivery Method Oxygen Flow Rate Sepsis Recent Fever Within 48 Hours Sepsis New/Unexplained Change in Mental Status Sepsis Action Taken by Nursing 09/05/22 23:21 09/05/22 23:22 09/05/22 23:24 Temperature Temperature Source Pulse Rate 86 88 88 Pulse Rate [Apical] Respiratory Rate 18 20 20 Respiratory Effort / Characteristics Blood Pressure 73/43 L 71/38 L 80/49 L Blood Pressure [Right Arm] Blood Pressure Mean 53 49 59 Blood Pressure Mean [Right Arm] Pulse Oximetry 92 92 92 Oxygen Delivery Method Nebulizer Nebulizer Nebulizer Oxygen Flow Rate Sepsis Recent Fever Within 48 Hours Sepsis New/Unexplained Change in Mental Status Sepsis Action Taken by Nursing 09/05/22 23:59 09/05/22 23:30 09/05/22 23:45 Temperature Temperature Source Pulse Rate 97 H 94 H 94 H Pulse Rate [Apical] Respiratory Rate 20 20 Respiratory Effort / Characteristics Blood Pressure 89/55 L 87/48 L Blood Pressure [Right Arm] Blood Pressure Mean 66 61 Blood Pressure Mean [Right Arm] Pulse Oximetry 92 92 Oxygen Delivery Method Nebulizer Nebulizer Oxygen Flow Rate Sepsis Recent Fever Within 48 Hours Sepsis New/Unexplained Change in Mental Status Sepsis Action Taken by Nursing 09/06/22 00:00 09/06/22 00:15 09/06/22 01:00 Temperature Temperature Source Pulse Rate 98 H 100 H Pulse Rate [Apical] Respiratory Rate 20 20 Respiratory Effort / Characteristics Blood Pressure 98/56 L 89/62 L Blood Pressure [Right Arm] Blood Pressure Mean 70 71 Blood Pressure Mean [Right Arm] Pulse Oximetry 93 93 Oxygen Delivery Method Nebulizer Nebulizer Oxymask Oxygen Flow Rate 9 Sepsis Recent Fever Within 48 Hours Sepsis New/Unexplained Change in Mental Status Sepsis Action Taken by Nursing 09/06/22 00:30 09/06/22 00:45 09/06/22 00:47 Temperature Temperature Source Pulse Rate 100 H 100 H 100 H Pulse Rate [Apical] Respiratory Rate 20 Respiratory Effort / Characteristics Blood Pressure 104/55 L 75/46 L 84/52 L Blood Pressure [Right Arm] Blood Pressure Mean 71 55 62 Blood Pressure Mean [Right Arm] Pulse Oximetry 94 90 90 Oxygen Delivery Method Nebulizer Nebulizer Oxymask Oxygen Flow Rate 9 Sepsis Recent Fever Within 48 Hours Sepsis New/Unexplained Change in Mental Status Sepsis Action Taken by Nursing 09/06/22 00:48 Temperature Temperature Source Pulse Rate 100 H Pulse Rate [Apical] Respiratory Rate 20 Respiratory Effort / Characteristics Blood Pressure 81/46 L Blood Pressure [Right Arm] Blood Pressure Mean 57 Blood Pressure Mean [Right Arm] Pulse Oximetry 90 Oxygen Delivery Method Oxymask Oxygen Flow Rate 9 Sepsis Recent Fever Within 48 Hours Sepsis New/Unexplained Change in Mental Status Sepsis Action Taken by Nursing Laboratory Data 09/05/22 22:35 09/05/22 22:35 Lab Results 09/05/22 09/05/22 09/05/22 Range/Units 22:33 22:33 22:35 WBC (4.8-10.8) K/ul RBC (4.70-6.10) M/uL Hgb (14.0-18.0) g/dl Hct (42.0-52.0) % MCV (80.0-100.0) fL MCH (25.0-34.0) pg MCHC (32.0-36.0) g/dL RDW Std Deviation (36.4-46.3) fL RDW Coeff of Navid (11.5-14.5) % Plt Count (130-400) K/uL MPV (9.4-12.4) fL Immature Gran % (Auto) % Neut % (Auto) % Lymph % (Auto) % [place] % (Auto) % Eos % (Auto) % Baso % (Auto) % Neut # (Auto) (1.40-6.50) K/uL Lymph # (Auto) (1.2-3.4) K/uL [place] # (Auto) (0.11-0.59) K/uL Eos # (Auto) (0-0.50) K/uL Baso # (Auto) (0-0.2) K/uL Immature Gran # (Auto) (0.01-0.20) K/uL VBG pH 7.33 L (7.36-7.41) VBG pCO2 79 H (38-50) mmHg VBG pO2 27 mmHg VBG HCO3 42 mmol/L VBG O2 Saturation < 60.0 % VBG Base Excess 12.1 mEq/L Sodium (136-145) mmol/L Potassium (3.5-5.1) mmol/L Chloride (98-107) mmol/L Carbon Dioxide (21-32) mmol/L Anion Gap (3-11) BUN (6-23) mg/dl Creatinine (0.6-1.4) mg/dl Est Cr Clr Drug Dosing ml/min Est GFR ( Amer) ml/min Est GFR (Non-Af Amer) ml/min BUN/Creatinine Ratio (10-20) Glucose (70-99(Fasting)) mg/dl Lactate 1.2 (0.4-2.0) mmol/L Calcium (8.6-10.3) mg/dl Magnesium (1.7-2.4) mg/dl Total Bilirubin (0.2-1.0) mg/dl Direct Bilirubin (0-0.2) mg/dl AST (13-39) U/L ALT (7-52) U/L Alkaline Phosphatase (34-104) U/L Troponin I High Sens (0-20) pg/ml B-Natriuretic Peptide 80 (0-100) pg/ml Total Protein (6.0-8.3) gm/dl Albumin (3.4-5.0) gm/dl Procalcitonin (0-0.5) ng/ml Urine Color Urine Appearance (Clear) Urine pH (4.5-7.5) Ur Specific [place] (1.000-1.030) Urine Protein (Negative) Urine Glucose (UA) (Negative) Urine Ketones (Negative) Urine Blood (Negative) Urine Nitrite (Negative) Urine Bilirubin (Negative) Urine Urobilinogen (Negative) Ur Leukocyte Esterase (Negative) Urine WBC (Auto) (0-5) /hpf Urine RBC (Auto) (0-4) /hpf U Hyaline Cast (Auto) (0-5) /lpf U Epithel Cells (Auto) (0-5) /lpf Urine Bacteria (Auto) (Negative) Adenovirus (PCR) (NotDetected) B. pertussis DNA (PCR) (NotDetected) B.parapertussis DNA PCR (NotDetected) C. pneumoniae DNA (PCR) (NotDetected) Coronavirus OC43 (PCR) (NotDetected) Coronavirus HKU1 (PCR) (NotDetected) Coronavirus 229E (PCR) (NotDetected) SARS-CoV-2 (PCR) (NotDetected) Coronavirus NL63 (PCR) (NotDetected) Human Metapneumovir PCR (NotDetected) Influenza Type A (PCR) (NotDetected) Influenza Type B (PCR) (NotDetected) M. pneumoniae (PCR) (NotDetected) Parainfluenza 1 (PCR) (NotDetected) Parainfluenza 2 (PCR) (NotDetected) Parainfluenza 3 (PCR) (NotDetected) Parainfluenza 4 (PCR) (NotDetected) RSV (PCR) (NotDetected) Entero/Rhino (PCR) (NotDetected) 09/05/22 09/05/22 09/05/22 Range/Units 22:35 22:35 22:35 WBC 7.49 (4.8-10.8) K/ul RBC 4.12 L (4.70-6.10) M/uL Hgb 12.6 L (14.0-18.0) g/dl Hct 39.9 L (42.0-52.0) % MCV 96.8 (80.0-100.0) fL MCH 30.6 (25.0-34.0) pg MCHC 31.6 L (32.0-36.0) g/dL RDW Std Deviation 53.6 H (36.4-46.3) fL RDW Coeff of Navid 15.3 H (11.5-14.5) % Plt Count 165 (130-400) K/uL MPV 10.7 (9.4-12.4) fL Immature Gran % (Auto) 0.3 % Neut % (Auto) 71.6 % Lymph % (Auto) 11.7 % [place] % (Auto) 13.1 % Eos % (Auto) 2.9 % Baso % (Auto) 0.4 % Neut # (Auto) 5.36 (1.40-6.50) K/uL Lymph # (Auto) 0.88 L (1.2-3.4) K/uL [place] # (Auto) 0.98 H (0.11-0.59) K/uL Eos # (Auto) 0.22 (0-0.50) K/uL Baso # (Auto) 0.03 (0-0.2) K/uL Immature Gran # (Auto) 0.02 (0.01-0.20) K/uL VBG pH (7.36-7.41) VBG pCO2 (38-50) mmHg VBG pO2 mmHg VBG HCO3 mmol/L VBG O2 Saturation % VBG Base Excess mEq/L Sodium 141 (136-145) mmol/L Potassium 4.4 (3.5-5.1) mmol/L Chloride 99 (98-107) mmol/L Carbon Dioxide 38 H (21-32) mmol/L Anion Gap 4 (3-11) BUN 44 H (6-23) mg/dl Creatinine 0.96 (0.6-1.4) mg/dl Est Cr Clr Drug Dosing 52.0 ml/min Est GFR ( Amer) 87.4 ml/min Est GFR (Non-Af Amer) 75.4 ml/min BUN/Creatinine Ratio 45.8 H (10-20) Glucose 119 H (70-99(Fasting)) mg/dl Lactate (0.4-2.0) mmol/L Calcium 9.2 (8.6-10.3) mg/dl Magnesium 2.4 (1.7-2.4) mg/dl Total Bilirubin 0.4 (0.2-1.0) mg/dl Direct Bilirubin 0.1 (0-0.2) mg/dl AST 40 H (13-39) U/L ALT 21 (7-52) U/L Alkaline Phosphatase 103 (34-104) U/L Troponin I High Sens 7.5 (0-20) pg/ml B-Natriuretic Peptide (0-100) pg/ml Total Protein 7.9 (6.0-8.3) gm/dl Albumin 3.4 (3.4-5.0) gm/dl Procalcitonin 0.37 (0-0.5) ng/ml Urine Color Urine Appearance (Clear) Urine pH (4.5-7.5) Ur Specific [place] (1.000-1.030) Urine Protein (Negative) Urine Glucose (UA) (Negative) Urine Ketones (Negative) Urine Blood (Negative) Urine Nitrite (Negative) Urine Bilirubin (Negative) Urine Urobilinogen (Negative) Ur Leukocyte Esterase (Negative) Urine WBC (Auto) (0-5) /hpf Urine RBC (Auto) (0-4) /hpf U Hyaline Cast (Auto) (0-5) /lpf U Epithel Cells (Auto) (0-5) /lpf Urine Bacteria (Auto) (Negative) Adenovirus (PCR) (NotDetected) B. pertussis DNA (PCR) (NotDetected) B.parapertussis DNA PCR (NotDetected) C. pneumoniae DNA (PCR) (NotDetected) Coronavirus OC43 (PCR) (NotDetected) Coronavirus HKU1 (PCR) (NotDetected) Coronavirus 229E (PCR) (NotDetected) SARS-CoV-2 (PCR) (NotDetected) Coronavirus NL63 (PCR) (NotDetected) Human Metapneumovir PCR (NotDetected) Influenza Type A (PCR) (NotDetected) Influenza Type B (PCR) (NotDetected) M. pneumoniae (PCR) (NotDetected) Parainfluenza 1 (PCR) (NotDetected) Parainfluenza 2 (PCR) (NotDetected) Parainfluenza 3 (PCR) (NotDetected) Parainfluenza 4 (PCR) (NotDetected) RSV (PCR) (NotDetected) Entero/Rhino (PCR) (NotDetected) 09/05/22 09/05/22 Range/Units 22:46 22:50 WBC (4.8-10.8) K/ul RBC (4.70-6.10) M/uL Hgb (14.0-18.0) g/dl Hct (42.0-52.0) % MCV (80.0-100.0) fL MCH (25.0-34.0) pg MCHC (32.0-36.0) g/dL RDW Std Deviation (36.4-46.3) fL RDW Coeff of Navid (11.5-14.5) % Plt Count (130-400) K/uL MPV (9.4-12.4) fL Immature Gran % (Auto) % Neut % (Auto) % Lymph % (Auto) % [place] % (Auto) % Eos % (Auto) % Baso % (Auto) % Neut # (Auto) (1.40-6.50) K/uL Lymph # (Auto) (1.2-3.4) K/uL [place] # (Auto) (0.11-0.59) K/uL Eos # (Auto) (0-0.50) K/uL Baso # (Auto) (0-0.2) K/uL Immature Gran # (Auto) (0.01-0.20) K/uL VBG pH (7.36-7.41) VBG pCO2 (38-50) mmHg VBG pO2 mmHg VBG HCO3 mmol/L VBG O2 Saturation % VBG Base Excess mEq/L Sodium (136-145) mmol/L Potassium (3.5-5.1) mmol/L Chloride (98-107) mmol/L Carbon Dioxide (21-32) mmol/L Anion Gap (3-11) BUN (6-23) mg/dl Creatinine (0.6-1.4) mg/dl Est Cr Clr Drug Dosing ml/min Est GFR ( Amer) ml/min Est GFR (Non-Af Amer) ml/min BUN/Creatinine Ratio (10-20) Glucose (70-99(Fasting)) mg/dl Lactate (0.4-2.0) mmol/L Calcium (8.6-10.3) mg/dl Magnesium (1.7-2.4) mg/dl Total Bilirubin (0.2-1.0) mg/dl Direct Bilirubin (0-0.2) mg/dl AST (13-39) U/L ALT (7-52) U/L Alkaline Phosphatase (34-104) U/L Troponin I High Sens (0-20) pg/ml B-Natriuretic Peptide (0-100) pg/ml Total Protein (6.0-8.3) gm/dl Albumin (3.4-5.0) gm/dl Procalcitonin (0-0.5) ng/ml Urine Color Dark Yellow Urine Appearance Clear (Clear) Urine pH 6.5 (4.5-7.5) Ur Specific [place] 1.020 (1.000-1.030) Urine Protein 1+ H (Negative) Urine Glucose (UA) Negative (Negative) Urine Ketones Trace H (Negative) Urine Blood Negative (Negative) Urine Nitrite Negative (Negative) Urine Bilirubin Negative (Negative) Urine Urobilinogen Negative (Negative) Ur Leukocyte Esterase Negative (Negative) Urine WBC (Auto) 1-5 (0-5) /hpf Urine RBC (Auto) 0-4 (0-4) /hpf U Hyaline Cast (Auto) 1-5 (0-5) /lpf U Epithel Cells (Auto) 10-20 H (0-5) /lpf Urine Bacteria (Auto) Negative (Negative) Adenovirus (PCR) Not Detected (NotDetected) B. pertussis DNA (PCR) Not Detected (NotDetected) B.parapertussis DNA PCR Not Detected (NotDetected) C. pneumoniae DNA (PCR) Not Detected (NotDetected) Coronavirus OC43 (PCR) Not Detected (NotDetected) Coronavirus HKU1 (PCR) Not Detected (NotDetected) Coronavirus 229E (PCR) Not Detected (NotDetected) SARS-CoV-2 (PCR) Not Detected (NotDetected) Coronavirus NL63 (PCR) Not Detected (NotDetected) Human Metapneumovir PCR Not Detected (NotDetected) Influenza Type A (PCR) Not Detected (NotDetected) Influenza Type B (PCR) Not Detected (NotDetected) M. pneumoniae (PCR) Not Detected (NotDetected) Parainfluenza 1 (PCR) Not Detected (NotDetected) Parainfluenza 2 (PCR) Not Detected (NotDetected) Parainfluenza 3 (PCR) Not Detected (NotDetected) Parainfluenza 4 (PCR) Not Detected (NotDetected) RSV (PCR) Not Detected (NotDetected) Entero/Rhino (PCR) Not Detected (NotDetected) Administered Medications Discontinued Medications Albuterol (Albut/Ipratrop 3mg/0.5mg Neb 3 Ml Vial) 12 ml NEB ONE ONE; Protocol Stop: 09/05/22 22:24 Last Admin: 09/05/22 22:39 Dose: 12 ml Documented By: ACC Dexamethasone Sodium Phosphate (DexamethasonePf 10 Mg/Ml Vial) 10 mg IV NOW ONE Stop: 09/05/22 22:24 Last Admin: 09/05/22 22:39 Dose: 10 mg Documented By: ACC Sodium Chloride (Nss 1000ml) 1,000 mls @ 999 mls/hr IV .Q1H1M ONE Stop: 09/06/22 00:24 Last Admin: 09/05/22 23:32 Dose: 999 mls/hr Documented By: TRACIE Cefepime HCl (Maxipime) 2,000 mg in 20 mls @ 5 mls/min IV NOW STA; Protocol Stop: 09/05/22 23:27 Last Admin: 09/05/22 23:32 Dose: 5 mls/min Documented By: TRACIE Discharge Plan Visit Data Chief Complaint: Shortness of Breath/Dyspnea ED Provider: Mark Stock Discharge Problem: Acute exacerbation of chronic obstructive pulmonary disease, Acute dehydration, Acute on chronic respiratory failure with hypoxia and hypercapnia, Acute hypotension Patient Disposition: Admitted As Inpatient Discharge Instructions Interventions: ED Discharge Assessment Last Done: 09/06/22 01:00 Forms Stand Alone Forms: My [facility] [x+1] Prescriptions Prescriptions: No Action atorvastatin 40 mg Tablet 40 mg feeding tube QPM nitroglycerin 0.4 mg Tablet, Sublingual 0.4 mg sublingual UD PRN (Reason: Chest Pain) Rx Instructions: NEEDEDFOR CHEST PAIN : ONE TABLET UNDER THE TONGUE EVERY 5 MINUTES UP TO THREE DOSES. albuterol sulfate [ProAir HFA] 90 mcg/actuation HFA aerosol inhaler 2 inh inhalation Q6H PRN (Reason: shortness of breath or wheezing) Qty: 8.5 0RF Nutren 2.0 0.08 gram-2 kcal/mL Liquid 1 ea feeding tube QID Rx Instructions: administer via gravity bag clotrimazole 1 % cream 1 applic TOPICAL BID Rx Instructions: APPLY TOPICALLY TO PEG SITE TWO TIMES A DAY. water for irrigation, sterile Solution 120 ml IRRIGATION 5XD Rx Instructions: into feeding tube acetaminophen [Tylenol] 325 mg Tablet 650 mg PO DIRECTED PRN (Reason: Pain) aspirin 81 mg Tablet,Chewable 81 mg PO DAILY polyethylene glycol 3350 [Miralax] 17 gram/dose Powder 17 g feeding tube DAILY Trelegy Ellipta 100-62.5-25 mcg Blister With Device 1 inh INHALATION DAILY ipratropium-albuterol 0.5 mg-3 mg(2.5 mg base)/3 mL solution for nebulization 3 ml inhalation Q6H PRN (Reason: Shortness Of Breath Or Wheezing) cyanocobalamin (vitamin B-12) [Vitamin B-12] 1,000 mcg tablet 1,000 mcg feeding tube DAILY folic acid 1 mg tablet 1 mg feeding tube DAILY Referrals Referrals: Prudencio Burns MD [Primary Care Provider] -
[2022-09-05 22:50] LABS: Base Excess VBG 12.1 mEq/L; HCO3 VBG 42 mmol/L; Oxygen Saturation VBG < 60.0 %; PCO2 VBG 79 mmHg (38-50); PO2 VBG 27 mmHg; pH VBG 7.33 (7.36-7.41)
[2022-09-05 22:59] LABS: Basophils # (auto) 0.03 K/uL (0-0.2); Basophils % (auto) 0.4 %; Eosinophils # (auto) 0.22 K/uL (0-0.50); Eosinophils % (auto) 2.9 %; Hematocrit (blood only) 39.9 % (42.0-52.0); Hemoglobin 12.6 g/dl (14.0-18.0); Immature Granulocytes # (auto) 0.02 K/uL (0.01-0.20); Immature Granulocytes % (auto) 0.3 %; Lymphocytes # (auto) 0.88 K/uL (1.2-3.4); Lymphocytes % (auto) 11.7 %; Mean Corpuscular Hemoglobin 30.6 pg (25.0-34.0); Mean Corpuscular Hgb Conc 31.6 g/dL (32.0-36.0); Mean Corpuscular Volume 96.8 fL (80.0-100.0); Mean Platelet Volume 10.7 fL (9.4-12.4); Monocytes # (auto) 0.98 K/uL (0.11-0.59); Monocytes % (auto) 13.1 %; Neutrophils # (auto) 5.36 K/uL (1.40-6.50); Neutrophils % (auto) 71.6 %; Platelet Count 165 K/uL (130-400); RDW Coefficient of Variation 15.3 % (11.5-14.5); RDW Standard Deviation 53.6 fL (36.4-46.3); Red Blood Count 4.12 M/uL (4.70-6.10); White Blood Count 7.49 K/ul (4.8-10.8)
[2022-09-05 23:04] LABS: Appearance Urine Clear (Clear); Bacteria Urine Automated Negative (Negative); Bilirubin Urine Negative (Negative); Blood Urine Negative (Negative); Color Urine Dark Yellow; Glucose Urine UA Negative (Negative); Ketones Urine Trace (Negative); Leukocyte Esterase Urine Negative (Negative); Nitrite Urine Negative (Negative); Protein Urine 1+ (Negative); RBC Urine Automated 0-4 /hpf (0-4); Urobilinogen Urine Negative (Negative); pH Urine 6.5 (4.5-7.5)
[2022-09-05 23:19] LABS: Albumin Level 3.4 gm/dl (3.4-5.0); BUN Creatinine Ratio 45.8 (10-20); Bilirubin Direct 0.1 mg/dl (0-0.2); Bilirubin,Total 0.4 mg/dl (0.2-1.0); Calcium 9.2 mg/dl (8.6-10.3); Est GFR (African American) 87.4 ml/min; Est GFR (Non-African American) 75.4 ml/min; Magnesium 2.4 mg/dl (1.7-2.4); Potassium 4.4 mmol/L (3.5-5.1); Total Protein 7.9 gm/dl (6.0-8.3)
[2022-09-05 23:23] LABS: Troponin I High Sensitivity 7.5 pg/ml (0-20)
[2022-09-05] MEDS ORDERED: SODIUM CHLORIDE 0.9% 1000ML 1,000 ML IV ONE (23:24)
[2022-09-05] MEDS ORDERED: CEFEPIME 2,000 MG/20 ML VIAL IV STA (23:24)
[2022-09-05 23:48] LABS: Adenovirus PCR Not Detected (NotDetected); Bordetella parapertussis PCR Not Detected (NotDetected); Bordetella pertussis PCR Not Detected (NotDetected); Chlamydia pneumoniae PCR Not Detected (NotDetected); Coronavirus 229E PCR Not Detected (NotDetected); Coronavirus CoV-2 (COVID19)PCR Not Detected (NotDetected); Coronavirus HKU1 PCR Not Detected (NotDetected); Coronavirus NL63 PCR Not Detected (NotDetected); Coronavirus OC43PCR Not Detected (NotDetected); Human Metapneumovirus PCR Not Detected (NotDetected); Influenza A PCR Not Detected (NotDetected); Influenza B PCR Not Detected (NotDetected); Mycoplasma pneumoniae PCR Not Detected (NotDetected); Parainfluenza Virus 1 PCR Not Detected (NotDetected); Parainfluenza Virus 2 PCR Not Detected (NotDetected); Parainfluenza Virus 3 PCR Not Detected (NotDetected); Parainfluenza Virus 4 PCR Not Detected (NotDetected); Respiratory Syncytial VirusPCR Not Detected (NotDetected); Rhinovirus/Enterovirus PCR Not Detected (NotDetected)
[2022-09-06] MEDS ORDERED: AMPICILLIN/SULBACTAM SOD 3,000 MG in 0.9 % SODIUM CHLORIDE 100 ML IV STA (00:21)
--- NOTE | 2022-09-06 00:21 | History & Physical Report ---
Date of Service September 06, 2022 Assessment & Plan (1) Acute hypoxemic respiratory failure: Plan: Acute on chronic Secondary to COPD exacerbation secondary to recurrent aspiration pneumonia hx chronic pulmonary aspiration status post PEG tube placement on tube feeds Possible sepsis Rule out pulmonary embolism given hypoxemia and low blood pressure chronic diastolic heart failure, patient on the dry side chronic LBBB hx CAD status post CABG, status post bioprosthetic AVR hyperlipidemia, on statin Rx nasopharyngeal cancer status post chemoradiation, in remission chronic anemia, hemoglobin at baseline past tobacco abuse PCU given hypotension IVF CS, Unasyn Continue aspiration precautions Nebs RTC, steroid course CT chest angio rule out PE Pulmonary consult if without improvement DVT prophylaxis. SCDs Re: History severe epistaxis DNR as per discussion with patient Total critical care time was 45 minutes. Patient son requesting updates for providers. Mr. Anthony Dodson, contact #[phone]. Text document was generated using [email or web address] voice recognition software. It may contain grammatical or spelling errors. Kindly contact undersigned for clarification of any documentation item in question. History of Present Illness Chief Complaint: Low oxygen Primary Care Provider: Prudencio Burns MD History obtained from patient and records. Medical history significant for chronic respiratory failure occasional supplemental home O2 use, chronic diastolic heart failure (EF 50 to 55%, TTE 2020) , chronic LBBB, CAD status post CABG, status post bioprosthetic AVR, COPD as per records, chronic pulmonary aspiration status post PEG tube placement, hypertension, hyperlipidemia, nasopharyngeal cancer status post chemoradiation, chronic anemia (baseline hemoglobin of 12 ), past tobacco abuse. Last confinement May 2022 for septic shock secondary to aspiration pneumonia and epistaxis in the setting of abnormalities/history head and neck cancer treatment. Patient transferred to [facility] for further management of epistaxis. Patient subsequently underwent coiling embolization of bilateral sphenopalatine arteries by interventional neurosurgery. Patient noted worsening cough symptoms productive of yellow sputum the last few days. Patient denies chest pain, SOB. Patient completed COVID-19 vaccination. Not sure about sick contacts. No recent john aspiration episode to his recollection. O2 sats noted to be 70s at home yesterday which is lower than usual. Patient brought to the ER for evaluation. O2 sats noted to be 80s, SBP noted to be 80s at 1 point. Ceftriaxone, Decadron, and neb treatment administered at the ER. 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 Allergies Allergy/AdvReac Type Severity Reaction Status Date / Time No Known Allergies Allergy Verified 09/05/22 23:25 Home Medications Medication Instructions Recorded Confirmed Type atorvastatin 40 mg tablet 40 mg feeding tube QPM 09/18/18 09/05/22 History nitroglycerin 0.4 mg sublingual 0.4 mg sublingual UD PRN Chest Pain 09/18/18 09/05/22 History tablet albuterol sulfate 90 mcg/actuation 2 inh inhalation Q6H PRN shortness 05/06/20 09/05/22 Rx aerosol inhaler (ProAir HFA) of breath or wheezing #8.5 grams nutritional supplements 0.08 1 ea feeding tube QID 02/19/21 09/05/22 History gram-2 kcal/mL liquid for tube feed (Nutren 2.0) clotrimazole 1 % topical cream 1 applic topical BID 12/28/21 09/05/22 History water for irrigation, sterile 120 ml irrigation 5XD 03/07/22 09/05/22 History cyanocobalamin (vitamin B-12) 1,000 mcg feeding tube DAILY 05/06/22 09/05/22 History 1,000 mcg tablet (Vitamin B-12) folic acid 1 mg tablet 1 mg feeding tube DAILY 05/06/22 09/05/22 History acetaminophen 325 mg tablet 650 mg PO DIRECTED PRN Pain 09/05/22 09/05/22 History (Tylenol) aspirin 81 mg chewable tablet 81 mg PO DAILY 09/05/22 09/05/22 History fluticasone fur. 100 mcg-umeclid 1 inh inhalation DAILY 09/05/22 09/05/22 History 62.5 mcg-vilant 25 mcg inhalat.powder (Trelegy Ellipta) ipratropium 0.5 mg-albuterol 3 mg 3 ml inhalation Q6H PRN Shortness 09/05/22 09/05/22 History (2.5 mg base)/3 mL nebulization Of Breath Or Wheezing soln polyethylene glycol 3350 17 17 g feeding tube DAILY 07/30/23 07/30/23 History gram/dose oral powder (Miralax) Past Med/Surg History Medical History Acute hypoxemic respiratory failure Acute on chronic diastolic heart failure Acute renal insufficiency JULES (acute kidney injury) CAD (coronary artery disease) Cardiac murmur CHILD FROM RHEUMATIC FEVER CHF (congestive heart failure) Chronic pulmonary aspiration CKD (chronic kidney disease) stage 3, GFR 30-59 ml/min Elevated lactic acid level Former tobacco use Hearing deficit BILAT History of [place] (myocardial infarction) 2017/ [facility] History of nasopharyngeal cancer s/p radiation, chemo- NO PORT ANYMORE CLEARED NOV 2013 History of rheumatic fever Hyperlipidemia Hypertension Left bundle branch block (LBBB) Palate abnormality prosthetic palate Pneumonia Radiation adverse effect Severe sepsis Shock Surgical History History of cardiac cath 2017 - [place] --> CABG - [facility]- follows w/ Dr. Milton- [facility]/ NO STENTS History of cataract surgery History of colonoscopy with polypectomy 09/25/2018. Propofol given, no issues. History of coronary artery bypass graft One vessel - 2016 - [facility] [place] History of heart valve replacement Bioprosthetic aortic valve - [place] 2016 History of shoulder surgery RIGHT History of tonsillectomy History of tooth extraction History of vascular access device NO LONGER HAS PORT Hx of aortic valve replacement Status post insertion of percutaneous endoscopic gastrostomy (PEG) tube PLACED DUE TO PALATE SURGERY- THEN REMOVED 2014 Family History Father Cancer Liver Cancer Social History Smoking Status: Never smoker Tobacco Type: Cigarettes Second Hand Exposure: No; Do You Dip or Chew Tobacco: No; Hx Alcohol Use: No Hx Substance Use: No Preferred Language: Finnish Communication Ability: Impaired Communication Ability Comment: Has tablet Underwriting Manager Required: No Beliefs That Will Affect Care: None marital status: / Current Living Situation: Other Current Living Situation Comment: Has a roommate How many Children do You have: 1 Other Information That Helps Us Care for You: No Feels Safe at Home: Yes Safety Concerns: Feels Safe At This Time Assistive Devices: CPAP and Oxygen - Continuous Review of Systems Review of Systems: As per HPI, all other systems reviewed and negative Physical Exam Physical Exam: GENERAL: Slightly uncomfortable, nasal speech, minimal respiratory distress SKIN: Pallor, warm HEENT: Pale palpebral conjunctivae, no ptosis, dry buccal mucosa, palatal defect noted, O2 mask in place NECK : Supple, no tenderness CHEST : Decreased breath sounds, expiratory wheezes, no tenderness HEART : RRR, no obvious murmurs ABDOMEN: Some distention, PEG tube in place, nontender EXTREMITIES : No LE swelling/tenderness, no other conspicuous deformities noted NEUROLOGIC : Coherent, no facial asymmetry, mild hearing impairment, no other gross focality Results & Data Results & Data Vital Signs (Past 12 Hours) Vital Signs Temp Pulse Pulse Resp BP BP Pulse Ox 09/06/22 00:15 100 H 20 89/62 L 93 09/06/22 00:00 98 H 20 98/56 L 93 09/05/22 23:45 94 H 20 87/48 L 92 09/05/22 23:30 94 H 20 89/55 L 92 09/05/22 23:59 97 H 09/05/22 23:24 88 20 80/49 L 92 09/05/22 23:22 88 20 71/38 L 92 09/05/22 23:21 86 18 73/43 L 92 09/05/22 23:00 80 87/57 L 93 09/05/22 22:46 82 22 110/79 93 09/05/22 22:23 79 22 106/73 92 09/05/22 22:39 18 97 09/05/22 22:49 80 26 H 110/79 92 09/05/22 22:48 09/05/22 22:10 90 09/05/22 22:10 36.8 C 78 20 104/61 90 09/05/22 22:10 O2 Del Method O2 Flow Rate 09/06/22 00:15 Nebulizer 09/06/22 00:00 Nebulizer 09/05/22 23:45 Nebulizer 09/05/22 23:30 Nebulizer 09/05/22 23:59 09/05/22 23:24 Nebulizer 09/05/22 23:22 Nebulizer 09/05/22 23:21 Nebulizer 09/05/22 23:00 09/05/22 22:46 09/05/22 22:23 09/05/22 22:39 Nasal Cannula 15 09/05/22 22:49 Oxymask 15 09/05/22 22:48 Oxymask 15 09/05/22 22:10 Oxymask 15 09/05/22 22:10 Oxymask 15 09/05/22 22:10 Oxymask 15 Laboratory Results Laboratory Results WBC 7.49 K/ul (4.8-10.8) 09/05/22 22:35 RBC 4.12 M/uL (4.70-6.10) L 09/05/22 22:35 Hgb 12.6 g/dl (14.0-18.0) L 09/05/22 22:35 Hct 39.9 % (42.0-52.0) L 09/05/22 22:35 MCV 96.8 fL (80.0-100.0) 09/05/22 22:35 MCH 30.6 pg (25.0-34.0) 09/05/22 22:35 MCHC 31.6 g/dL (32.0-36.0) L 09/05/22 22:35 RDW Std Deviation 53.6 fL (36.4-46.3) H 09/05/22 22:35 RDW Coeff of Navid 15.3 % (11.5-14.5) H 09/05/22 22:35 Plt Count 165 K/uL (130-400) 09/05/22 22:35 MPV 10.7 fL (9.4-12.4) 09/05/22 22:35 Immature Gran % (Auto) 0.3 % 09/05/22 22:35 Neut % (Auto) 71.6 % 09/05/22 22:35 Lymph % (Auto) 11.7 % 09/05/22 22:35 [place] % (Auto) 13.1 % 09/05/22 22:35 Eos % (Auto) 2.9 % 09/05/22 22:35 Baso % (Auto) 0.4 % 09/05/22 22:35 Neut # (Auto) 5.36 K/uL (1.40-6.50) 09/05/22 22:35 Lymph # (Auto) 0.88 K/uL (1.2-3.4) L 09/05/22 22:35 [place] # (Auto) 0.98 K/uL (0.11-0.59) H 09/05/22 22:35 Eos # (Auto) 0.22 K/uL (0-0.50) 09/05/22 22:35 Baso # (Auto) 0.03 K/uL (0-0.2) 09/05/22 22:35 Immature Gran # (Auto) 0.02 K/uL (0.01-0.20) 09/05/22 22:35 VBG pH 7.33 (7.36-7.41) L 09/05/22 22:33 VBG pCO2 79 mmHg (38-50) H 09/05/22 22:33 VBG pO2 27 mmHg 09/05/22 22:33 VBG HCO3 42 mmol/L 09/05/22 22:33 VBG O2 Saturation < 60.0 % 09/05/22 22:33 VBG Base Excess 12.1 mEq/L 09/05/22 22:33 Sodium 141 mmol/L (136-145) 09/05/22 22:35 Potassium 4.4 mmol/L (3.5-5.1) 09/05/22 22:35 Chloride 99 mmol/L (98-107) 09/05/22 22:35 Carbon Dioxide 38 mmol/L (21-32) H 09/05/22 22:35 Anion Gap 4 (3-11) 09/05/22 22:35 BUN 44 mg/dl (6-23) H 09/05/22 22:35 Creatinine 0.96 mg/dl (0.6-1.4) 09/05/22 22:35 Est Cr Clr Drug Dosing 52.0 ml/min 09/05/22 22:35 Est GFR ( Amer) 87.4 ml/min 09/05/22 22:35 Est GFR (Non-Af Amer) 75.4 ml/min 09/05/22 22:35 BUN/Creatinine Ratio 45.8 (10-20) H 09/05/22 22:35 Glucose 119 mg/dl (70-99(Fasting)) H 09/05/22 22:35 Lactate 1.2 mmol/L (0.4-2.0) 09/05/22 22:33 Calcium 9.2 mg/dl (8.6-10.3) 09/05/22 22:35 Magnesium 2.4 mg/dl (1.7-2.4) 09/05/22 22:35 Total Bilirubin 0.4 mg/dl (0.2-1.0) 09/05/22 22:35 Direct Bilirubin 0.1 mg/dl (0-0.2) 09/05/22 22:35 AST 40 U/L (13-39) H 09/05/22 22:35 ALT 21 U/L (7-52) 09/05/22 22:35 Alkaline Phosphatase 103 U/L (34-104) 09/05/22 22:35 Troponin I High Sens 7.5 pg/ml (0-20) 09/05/22 22:35 B-Natriuretic Peptide 80 pg/ml (0-100) 09/05/22 22:35 Total Protein 7.9 gm/dl (6.0-8.3) 09/05/22 22:35 Albumin 3.4 gm/dl (3.4-5.0) 09/05/22 22:35 Procalcitonin 0.37 ng/ml (0-0.5) 09/05/22 22:35 Urine Color Dark Yellow 09/05/22 22:50 Urine Appearance Clear (Clear) 09/05/22 22:50 Urine pH 6.5 (4.5-7.5) 09/05/22 22:50 Ur Specific [place] 1.020 (1.000-1.030) 09/05/22 22:50 Urine Protein 1+ (Negative) H 09/05/22 22:50 Urine Glucose (UA) Negative (Negative) 09/05/22 22:50 Urine Ketones Trace (Negative) H 09/05/22 22:50 Urine Blood Negative (Negative) 09/05/22 22:50 Urine Nitrite Negative (Negative) 09/05/22 22:50 Urine Bilirubin Negative (Negative) 09/05/22 22:50 Urine Urobilinogen Negative (Negative) 09/05/22 22:50 Ur Leukocyte Esterase Negative (Negative) 09/05/22 22:50 Urine WBC (Auto) 1-5 /hpf (0-5) 09/05/22 22:50 Urine RBC (Auto) 0-4 /hpf (0-4) 09/05/22 22:50 U Hyaline Cast (Auto) 1-5 /lpf (0-5) 09/05/22 22:50 U Epithel Cells (Auto) 10-20 /lpf (0-5) H 09/05/22 22:50 Urine Bacteria (Auto) Negative (Negative) 09/05/22 22:50 Adenovirus (PCR) Not Detected (NotDetected) 09/05/22 22:46 B. pertussis DNA (PCR) Not Detected (NotDetected) 09/05/22 22:46 B.parapertussis DNA PCR Not Detected (NotDetected) 09/05/22 22:46 C. pneumoniae DNA (PCR) Not Detected (NotDetected) 09/05/22 22:46 Coronavirus OC43 (PCR) Not Detected (NotDetected) 09/05/22 22:46 Coronavirus HKU1 (PCR) Not Detected (NotDetected) 09/05/22 22:46 Coronavirus 229E (PCR) Not Detected (NotDetected) 09/05/22 22:46 SARS-CoV-2 (PCR) Not Detected (NotDetected) 09/05/22 22:46 Coronavirus NL63 (PCR) Not Detected (NotDetected) 09/05/22 22:46 Human Metapneumovir PCR Not Detected (NotDetected) 09/05/22 22:46 Influenza Type A (PCR) Not Detected (NotDetected) 09/05/22 22:46 Influenza Type B (PCR) Not Detected (NotDetected) 09/05/22 22:46 M. pneumoniae (PCR) Not Detected (NotDetected) 09/05/22 22:46 Parainfluenza 1 (PCR) Not Detected (NotDetected) 09/05/22 22:46 Parainfluenza 2 (PCR) Not Detected (NotDetected) 09/05/22 22:46 Parainfluenza 3 (PCR) Not Detected (NotDetected) 09/05/22 22:46 Parainfluenza 4 (PCR) Not Detected (NotDetected) 09/05/22 22:46 RSV (PCR) Not Detected (NotDetected) 09/05/22 22:46 Entero/Rhino (PCR) Not Detected (NotDetected) 09/05/22 22:46 Diagnostic Findings Chest x-ray as per my interpretation interstitial infiltrates EKG as per my interpretation : Rate 80, NSR, normal axis, no ischemia
[2022-09-06] MEDS ORDERED: PROMETHAZINE HCL 6.25 MG in SODIUM CHLORIDE 0.9% 50 ML IV PRN (00:28)
[2022-09-06] MEDS ORDERED: ACETAMINOPHEN SUSP 500 MG/15.6 ML UDP PEG PRN (00:28)
[2022-09-06] MEDS ORDERED: LACTATED RINGER'S 1,000 ML IV STA (00:32)
[2022-09-06] MEDS ORDERED: IOVERSOL 350 MG 125mL Prefilled Syringe IV ONE (02:34)
[2022-09-06 02:48] LABS: Base Excess ABG 6.9 mEq/L (-9-1.8); HCO3 ABG 33 mmol/L (19-24); Oxygen Saturation ABG 97.7 % (90-95); PCO2 ABG 52 mmHg (35-46); PO2 ABG 81 mmHg (80-95); pH ABG 7.41 (7.35-7.45)
[2022-09-06] MEDS: LEVALBUTEROL 1.25 MG/3 ML NEB NEB SCH ×6 (02:49→22:52)
[2022-09-06 02:55] LABS: Allen Test Pos (Pos)
--- NOTE | 2022-09-06 04:03 | CT Scan Report ---
Exam(s): CTA CHEST IV Amt: 115 ML OPTIRAY 350 EXAM: CT Angiography Chest With Intravenous Contrast CLINICAL HISTORY: Reason for exam: low o2. TECHNIQUE: Axial computed tomographic angiography images of the chest with intravenous contrast. CTDI is 14.25 mGy and DLP is 428.67 mGy-cm. Automated exposure control was utilized for the study. A dose lowering technique was utilized adhering to the principles of ALARA. MIP reconstructed images were created and reviewed. COMPARISON: 05/26/2022 FINDINGS: Pulmonary arteries: No pulmonary embolism. Aorta: No acute findings.. Normal caliber. No dissection. Lungs: Extensive tree-in-bud nodularity throughout the lungs bilaterally similar to the prior. Multifocal bronchial thickening and mucus plugging. Pleural space: Unremarkable. Heart: Unremarkable. Bones/joints: No acute fracture. Soft tissues: Unremarkable. Lymph nodes: Unremarkable. IMPRESSION: 1. No pulmonary embolism. 2. Extensive tree-in-bud nodularity throughout the lungs bilaterally similar to the prior. 3. Bronchial wall thickening and multifocal mucus plugging. Electronically signed by: Yonas Moon MD 09/06/22 04:02 AM
[2022-09-06] MEDS: TUBE FEEDING WATER FLUSH PEG SCH ×2 (05:16→11:41)
--- NOTE | 2022-09-06 07:41 | XRay Report ---
XR chest 1V portable CLINICAL HISTORY: Sepsis. COMPARISON STUDY: Chest radiograph May 25, 2022. Chest CT May 26, 2022. FINDINGS: No pneumothorax or pleural effusion is present. There are median sternotomy wires. Cardiome diastinal silhouette is stable. Interstitial thickening and scattered airspace opacities, most conflu ent at the right lung base, are unchanged. IMPRESSION: 1. No significant change in appearance of the chest. Mild interstitial thickening. This may reflect p ulmonary edema. 2. No change in patchy airspace opacities which could reflect pneumonia or atelectasis. ACT 112: Negative or not required by law. Electronically signed by: Yayo Kay M.D. 09/06/2022 7:38 AM
[2022-09-06 08:19] LABS: Hematocrit (blood only) 39.1 % (42.0-52.0); Hemoglobin 12.2 g/dl (14.0-18.0); Mean Corpuscular Hemoglobin 30.4 pg (25.0-34.0); Mean Corpuscular Hgb Conc 31.2 g/dL (32.0-36.0); Mean Corpuscular Volume 97.5 fL (80.0-100.0); Mean Platelet Volume 11.2 fL (9.4-12.4); Platelet Count 163 K/uL (130-400); RDW Coefficient of Variation 15.3 % (11.5-14.5); Red Blood Count 4.01 M/uL (4.70-6.10); White Blood Count 8.01 K/ul (4.8-10.8)
[2022-09-06] MEDS: AMPICILLIN/SULBACTAM SOD 3,000 MG in 0.9 % SODIUM CHLORIDE 100 ML IV SCH ×3 (08:20→20:32)
[2022-09-06 08:35] LABS: BUN Creatinine Ratio 45.8 (10-20); Calcium 9.2 mg/dl (8.6-10.3); Creatinine Clr Calc Pharmacy 58.6 ml/min; Est GFR (African American) 97.7 ml/min; Est GFR (Non-African American) 84.3 ml/min; Potassium 3.9 mmol/L (3.5-5.1)
[2022-09-06 08:40] LABS: Basophils # (auto) 0.01 K/uL (0-0.2); Basophils % (auto) 0.1 %; Immature Granulocytes # (auto) 0.04 K/uL (0.01-0.20); Immature Granulocytes % (auto) 0.5 %; Lymphocytes # (auto) 0.21 K/uL (1.2-3.4); Lymphocytes % (auto) 2.6 %; Monocytes # (auto) 0.12 K/uL (0.11-0.59); Monocytes % (auto) 1.5 %; Neutrophils # (auto) 7.63 K/uL (1.40-6.50); Neutrophils % (auto) 95.3 %; Polychromasia 1+; Tear Drop Cells 1+
[2022-09-06] MEDS ORDERED: NUTREN LIQD 2.0 1,000 ML BAG PEG SCH (09:00)
[2022-09-06] MEDS ORDERED: NON-FORMULARY MEDICATION (Fluticasone-Umeclidin-Vilanter [Trelegy Ellipta] 100-62.5-25 mcg INH SCH (09:00)
[2022-09-06] MEDS: methylPREDNISolone 40 MG in SYRINGE 0 ML IV SCH (11:28)
[2022-09-06] MEDS: FOLIC ACID 1 MG TAB PEG SCH (11:39)
[2022-09-06] MEDS: CYANOCOBALAMIN (B-12) 500 MCG TABLET PEG SCH (11:39)
[2022-09-06] MEDS: ASPIRIN 81 MG CHEW PEG SCH (11:39)
[2022-09-06] MEDS: POLYETHYLENE (MIRALAX) 17 GM PACK PEG SCH (11:40)
[2022-09-06] MEDS: FLUTICASONE FUROATE 100MCG 14 PUFFS/INHALER INH SCH (11:41)
[2022-09-06] MEDS: UMECLIDINIUM/VILANTEROL 62.5/25MCG 7 PUFFS/INHALER INH SCH (11:41)
[2022-09-06] MEDS ORDERED: TUBE FEEDING WATER FLUSH PEG SCH (12:00)
[2022-09-06] MEDS: NUTREN LIQD 2.0 1,000 ML BAG PEG SCH (13:56)
--- NOTE | 2022-09-06 15:55 | Communication Note ---
Date of Service: September 06, 2022 77-year-old male with PMH of chronic pulmonary aspiration s/p PEG tube placement, nasopharyngeal cancer s/p chemoradiation, Epistaxis (in the abnormalities/history head and neck cancer treatment) s/p coiling embolization of bilateral sphenopalatine arteries by interventional neurosurgery, COPD, chronic respiratory failure on occasional supplemental home oxygen use, chronic diastolic heart failure [EF 50 to 55%, TTE 2020], chronic LBBB, CAD s/p CABG, s/p bioprosthetic AVR, HTN, HLD, chronic anemia [baseline hemoglobin 12], past tobacco abuse presented to the ED 09/05 with complaint of worsening cough productive of 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 He is being managed for the following: Acute on chronic hypoxemic respiratory failure Possible COPD exacerbation secondary to recurrent aspiration pneumonia History of chronic pulmonary aspiration status post PEG tube placement on tube feeds No sepsis POA: On a heart rate elevated at presentation. Patient presents with worsening cough productive of yellowish sputum, has aspiration risks. At ED, O2 sats noted to be in 80s. Patient on occasional oxygen supplementation at home. Admitting CXR and CTA chest reviewed. Continue with Unasyn 09/06, continue with nebulizers, continue with Solu-Medrol 09/06. Follow admitting blood cultures. Aspiration precaution, continue with tube feed. Dietitian consult. Patient reports feeling better, oxygen need getting better, wean down oxygen as tolerated. Other chronic medical conditions: Continue with/resume home meds as and when able chronic diastolic heart failure, patient on the dry side chronic LBBB hx CAD status post CABG, status post bioprosthetic AVR hyperlipidemia, on statin Rx nasopharyngeal cancer status post chemoradiation, in remission chronic anemia, hemoglobin at baseline past tobacco abuse DVT prophylaxis: SCDs Re: History severe epistaxis DNR Patient's son Mr. Anthony Dodson, contact #[phone]. On exam: GENERAL: Alert and oriented x3. NAD, on 4L O2 via OM. HEENT: No pallor, no icterus. Pupils equal, round and reactive to light. Oral mucosa moist. Palatal defect + NECK: No JVD, no neck masses. HEART: S1 and S2 heard. Regular rate and rhythm. No murmur, no gallop. RESPIRATORY SYSTEM: Normal AP diameter. No accessory muscle use. occ rhonci, decreased breath sounds. ABDOMEN: Soft, bowel sounds present, nontender, no distention. CENTRAL NERVOUS SYSTEM: No facial droop. Speech muffled (2/2 palatal defect). Obeys simple commands. Moves extremities. EXTREMITIES: No edema, no erythema seen. For detailed information on the patient, refer to today's H&P note. Text document was generated using [employer] voice recognition software. It may contain grammatical or spelling errors. Kindly contact undersigned for clarification of any documentation item in question.
[2022-09-06] MEDS: ATORVASTATIN 40 MG TAB PEG SCH (17:17)
[2022-09-07] MEDS: LEVALBUTEROL 1.25 MG/3 ML NEB NEB SCH ×6 (02:19→22:48)
[2022-09-07] MEDS: AMPICILLIN/SULBACTAM SOD 3,000 MG in 0.9 % SODIUM CHLORIDE 100 ML IV SCH ×4 (02:46→20:31)
[2022-09-07] MEDS: methylPREDNISolone 40 MG in SYRINGE 0 ML IV SCH (08:49)
[2022-09-07] MEDS: POLYETHYLENE (MIRALAX) 17 GM PACK PEG SCH (08:53)
[2022-09-07] MEDS: ASPIRIN 81 MG CHEW PEG SCH (08:53)
[2022-09-07] MEDS: FOLIC ACID 1 MG TAB PEG SCH (08:53)
[2022-09-07] MEDS: FLUTICASONE FUROATE 100MCG 14 PUFFS/INHALER INH SCH (08:53)
[2022-09-07] MEDS: UMECLIDINIUM/VILANTEROL 62.5/25MCG 7 PUFFS/INHALER INH SCH (08:53)
[2022-09-07] MEDS: CYANOCOBALAMIN (B-12) 500 MCG TABLET PEG SCH (08:53)
[2022-09-07 09:24] LABS: Hematocrit (blood only) 39.5 % (42.0-52.0); Hemoglobin 12.8 g/dl (14.0-18.0); Mean Corpuscular Hemoglobin 30.3 pg (25.0-34.0); Mean Corpuscular Hgb Conc 32.4 g/dL (32.0-36.0); Mean Corpuscular Volume 93.6 fL (80.0-100.0); Mean Platelet Volume 10.1 fL (9.4-12.4); Platelet Count 172 K/uL (130-400); RDW Coefficient of Variation 15.6 % (11.5-14.5); RDW Standard Deviation 53.1 fL (36.4-46.3); Red Blood Count 4.22 M/uL (4.70-6.10); White Blood Count 26.64 K/ul (4.8-10.8)
[2022-09-07 09:33] LABS: BUN Creatinine Ratio 46.7 (10-20); Calcium 9.1 mg/dl (8.6-10.3); Creatinine Clr Calc Pharmacy 80.5 ml/min; Est GFR (African American) 111.6 ml/min; Est GFR (Non-African American) 96.3 ml/min; Magnesium 2.1 mg/dl (1.7-2.4); Phosphorus 2.7 mg/dl (2.5-4.9); Potassium 4.3 mmol/L (3.5-5.1)
--- NOTE | 2022-09-07 16:42 | Hospitalist Progress Note ---
Date of Service September 07, 2022 Assessment & Plan (1) Acute exacerbation of chronic obstructive pulmonary disease: Plan 77-year-old male with PMH of chronic pulmonary aspiration s/p PEG tube placement, nasopharyngeal cancer s/p chemoradiation, Epistaxis (in the abnormalities/history head and neck cancer treatment) s/p coiling embolization of bilateral sphenopalatine arteries by interventional neurosurgery, COPD, chronic respiratory failure on occasional supplemental home oxygen use, chronic diastolic heart failure [EF 50 to 55%, TTE 2020], chronic LBBB, CAD s/p CABG, s/p bioprosthetic AVR, HTN, HLD, chronic anemia [baseline hemoglobin 12], past tobacco abuse presented to the ED 09/05 with complaint of worsening cough productive of yellowish sputum for the last few days [employer]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 He is being managed for the following: Acute on chronic hypoxemic respiratory failure Possible COPD exacerbation secondary to recurrent aspiration pneumonia History of chronic pulmonary aspiration status post PEG tube placement on tube feeds: Patient will need script stating "resumption of tube feedings as previously ordered" on day of discharge No sepsis POA:On a heart rate elevated at presentation. Patient presents with worsening cough productive of yellowish sputum, has aspiration risks. At ED, O2 sats noted to be in 80s. Patient on occasional oxygen supplementation at home. Admitting CXR and CTA chest reviewed. Continue with Unasyn 09/06, continue with nebulizers, continue with Solu-Medrol 09/06. Follow admitting blood cultures. Aspiration precaution, continue with tube feed. Dietitian consult. Patient reports feeling better, oxygen need getting better, wean down oxygen as tolerated. Likely will need 2-step test prior to discharge if oxygen cannot be weaned down. WBC elevated today likely secondary to steroid use, will get procalcitonin and WBC in the morning. Other chronic medical conditions:Continue with/resume home meds as and when able chronic diastolic heart failure, patient on the dry side chronic LBBB hx CAD status post CABG, status post bioprosthetic AVR hyperlipidemia, on statin Rx nasopharyngeal cancer status post chemoradiation, in remission chronic anemia, hemoglobin at baseline past tobacco abuse DVT prophylaxis: SCDs Re: History severe epistaxis DNR Disposition: PT/OT, CM to assist with DC planning. Patient's son Mr. Anthony Dodson, contact #[phone]. Admission and Anticipated Discharge Date Admission Date: September 06, 2022 Subjective Patient seen and examined at bedside as a follow-up of acute on chronic hypoxemic respiratory failure, possible COPD exacerbation secondary to recurrent aspiration pneumonia. Patient was sitting up in bed, on 4 L oxygen, reports feeling better, denied chest pain, is getting PEG tube feeding. Denies any new acute event overnight. Physical Exam Physical Exam: GENERAL: Alert and oriented x3. NAD, on 4L O2 via OM. HEENT: No pallor, no icterus. Pupils equal, round and reactive to light. Oral mucosa moist. Palatal defect + NECK: No JVD, no neck masses. HEART: S1 and S2 heard. Regular rate and rhythm. No murmur, no gallop. RESPIRATORY SYSTEM: Normal AP diameter. No accessory muscle use. occ rhonci, b/l mid and basal crackles. ABDOMEN: Soft, bowel sounds present, nontender, no distention. CENTRAL NERVOUS SYSTEM: No facial droop. Speech muffled (2/2 palatal defect). Obeys simple commands. Moves extremities. EXTREMITIES: No edema, no erythema seen. Results & Data Results & Data Vital Signs (Past 12 Hours) Vital Signs Temp Pulse Pulse Resp BP Pulse Ox O2 Del Method 09/07/22 16:02 84 09/07/22 15:52 73 18 90 Room Air 09/07/22 15:39 36.6 C 73 20 102/62 94 Oxymask 09/07/22 11:36 36.5 C 109 H 20 110/69 92 Oxymask 09/07/22 10:53 74 18 93 Oxymask 09/07/22 10:49 83 09/07/22 10:49 Oxymask 09/07/22 08:03 36.5 C 83 18 122/64 95 Oxymask 09/07/22 07:03 81 18 95 Oxymask O2 Flow Rate 09/07/22 16:02 09/07/22 15:52 4 09/07/22 15:39 4 09/07/22 11:36 4 09/07/22 10:53 4 09/07/22 10:49 09/07/22 10:49 4 09/07/22 08:03 4 09/07/22 07:03 4
[2022-09-07] MEDS: ATORVASTATIN 40 MG TAB PEG SCH (20:33)
[2022-09-08] MEDS: AMPICILLIN/SULBACTAM SOD 3,000 MG in 0.9 % SODIUM CHLORIDE 100 ML IV SCH ×4 (01:36→20:54)
[2022-09-08] MEDS: LEVALBUTEROL 1.25 MG/3 ML NEB NEB SCH ×6 (02:37→22:14)
--- NOTE | 2022-09-08 05:31 | Electrocardiogram Report ---
Test Reason : Blood Pressure : / mmHG Vent. Rate : 079 BPM Atrial Rate : 079 BPM P-R Int : 150 ms QRS Dur : 076 ms QT Int : 366 ms P-R-T Axes : 052 025 057 degrees QTc Int : 419 ms Normal sinus rhythm Normal ECG When compared with ECG of 13-JUN-2022 22:50, No significant change was found Confirmed by Rahul Miller ([id number]) on 09/08/2022 5:30:55 AM Referred By: REFERRED SELF Confirmed By:Rahul Miller
[2022-09-08 07:41] LABS: Hematocrit (blood only) 37.2 % (42.0-52.0); Mean Corpuscular Hemoglobin 30.5 pg (25.0-34.0); Mean Corpuscular Hgb Conc 32.3 g/dL (32.0-36.0); Mean Corpuscular Volume 94.4 fL (80.0-100.0); Mean Platelet Volume 10.4 fL (9.4-12.4); Platelet Count 167 K/uL (130-400); RDW Coefficient of Variation 15.6 % (11.5-14.5); RDW Standard Deviation 53.8 fL (36.4-46.3); Red Blood Count 3.94 M/uL (4.70-6.10); White Blood Count 20.33 K/ul (4.8-10.8)
[2022-09-08 07:52] LABS: BUN Creatinine Ratio 47.7 (10-20); Calcium 8.9 mg/dl (8.6-10.3); Creatinine Clr Calc Pharmacy 73.9 ml/min; Est GFR (Non-African American) 93.2 ml/min; Magnesium 2.2 mg/dl (1.7-2.4); Phosphorus 2.3 mg/dl (2.5-4.9); Potassium 4.2 mmol/L (3.5-5.1)
[2022-09-08] MEDS: methylPREDNISolone 40 MG in SYRINGE 0 ML IV SCH (08:47)
[2022-09-08] MEDS: FLUTICASONE FUROATE 100MCG 14 PUFFS/INHALER INH SCH (08:54)
[2022-09-08] MEDS: UMECLIDINIUM/VILANTEROL 62.5/25MCG 7 PUFFS/INHALER INH SCH (08:54)
[2022-09-08] MEDS: CYANOCOBALAMIN (B-12) 500 MCG TABLET PEG SCH (09:49)
[2022-09-08] MEDS: ASPIRIN 81 MG CHEW PEG SCH (09:49)
[2022-09-08] MEDS: FOLIC ACID 1 MG TAB PEG SCH (09:49)
[2022-09-08] MEDS: POLYETHYLENE (MIRALAX) 17 GM PACK PEG SCH (09:49)
--- NOTE | 2022-09-08 10:58 | Hospitalist Progress Note ---
Date of Service September 08, 2022 Assessment & Plan (1) Acute exacerbation of chronic obstructive pulmonary disease: Plan 77-year-old male with PMH of chronic pulmonary aspiration s/p PEG tube placement, nasopharyngeal cancer s/p chemoradiation, Epistaxis (in the abnormalities/history head and neck cancer treatment) s/p coiling embolization of bilateral sphenopalatine arteries by interventional neurosurgery, COPD, chronic respiratory failure on occasional supplemental home oxygen use, chronic diastolic heart failure [EF 50 to 55%, TTE 2020], chronic LBBB, CAD s/p CABG, s/p bioprosthetic AVR, HTN, HLD, chronic anemia [baseline hemoglobin 12], past tobacco abuse presented to the ED 09/05/22 with complaint of worsening cough productive of yellowish sputum for the last few days Acute on chronic hypoxemic respiratory failure Possible COPD exacerbation Recurrent aspiration pneumonia History of chronic pulmonary aspiration status post PEG tube placement on tube feeds: Patient will need script stating "resumption of tube feedings as previously ordered" on day of discharge Patient presents with worsening cough productive of yellowish sputum, has aspiration risks. At ED, O2 sats noted to be in 80s. Reports he was on 2L/min of oxygen but had to increase over the days leading to presentation Admitting CXR and CTA chest reviewed. CTA chest noted extensive tree-in-bud nodularity throughout both lungs, bronchial wall thickening and multifocal mucus plugging Continue with Unasyn Continue with nebulizers and steroid Blood cultures negative so far Aspiration precaution Continue with tube feed. Nutrition eval noted Wean down oxygen as tolerated. Will need 2-step test prior to discharge WBC was 7 on presentation, increased to 26K yesterday. Down to 20K today Leukocytosis likely due to combination of infectious process and steroid Monitor Other chronic medical conditions: chronic diastolic heart failure chronic LBBB hx CAD status post CABG, status post bioprosthetic AVR hyperlipidemia, on statin Rx nasopharyngeal cancer status post chemoradiation chronic anemia, hemoglobin at baseline past tobacco abuse DVT prophylaxis: SCDs Re: History severe epistaxis DNR Disposition: PT/OT eval noted. Reports he will be going home on DC Patient's son Mr. Anthony Dodson, contact #[phone]. I spent a total of 45 minutes coordinating, documenting and providing care for this patient excluding time spent in performance of separately billed services Admission and Anticipated Discharge Date Admission Date: September 06, 2022 Subjective Patient seen and examined Reports cough productive of sputum. Denies any chest pain Denies shortness of breath this morning. Reports feeling better. Denies nausea, vomiting, abdominal pain, diarrhea constipation Denies dysuria, frequency. Physical Exam Constitutional: + well hydrated; no acute distress Eyes: PERRL, conjunctivae normal, anicteric sclerae ENMT: Hoarse voice Respiratory: Not in respiratory distress, on 4 L/min via oxy mask, coarse breath sounds, bilateral crackles Cardiovascular: Rate/Rhythm: regular rate and regular rhythm S1-S2 Gastrointestinal (Abdomen): normal bowel sounds, soft, nontender, no hepatosplenomegaly Musculoskeletal: No pedal edema Neurologic: PERRL, EOMI, accommodation nl, no face palsy, no dysarthria Psychiatric: A+Ox3, euthymic affect Results & Data Results & Data Vital Signs (Past 12 Hours) Vital Signs Temp Pulse Resp BP Pulse Ox O2 Del Method O2 Flow Rate 09/08/22 10:57 71 20 94 Oxymask 4 09/08/22 08:06 Oxymask 4 09/08/22 07:49 36.4 C L 77 18 104/66 93 Oxymask 4 09/08/22 07:17 74 18 93 Oxymask 4 09/08/22 02:30 36.2 C L 76 20 152/77 H 91 Oxymask 4 09/08/22 02:37 76 18 93 Oxymask 4 09/07/22 23:12 36.8 C 88 18 94/59 L 90 Oxymask 4 Laboratory Results Abnormal lab results 09/08/22 09/08/22 Range/Units 07:05 07:05 WBC 20.33 H (4.8-10.8) K/ul RBC 3.94 L (4.70-6.10) M/uL Hgb 12.0 L (14.0-18.0) g/dl Hct 37.2 L (42.0-52.0) % RDW Std Deviation 53.8 H (36.4-46.3) fL RDW Coeff of Navid 15.6 H (11.5-14.5) % Carbon Dioxide 38 H (21-32) mmol/L Anion Gap 2 L (3-11) BUN 31 H (6-23) mg/dl BUN/Creatinine Ratio 47.7 H (10-20) Phosphorus 2.3 L (2.5-4.9) mg/dl
[2022-09-08] MEDS: NUTREN LIQD 2.0 1,000 ML BAG PEG SCH (12:30)
[2022-09-08] MEDS: ATORVASTATIN 40 MG TAB PEG SCH (20:54)
[2022-09-09] MEDS: AMPICILLIN/SULBACTAM SOD 3,000 MG in 0.9 % SODIUM CHLORIDE 100 ML IV SCH ×2 (02:06→09:22)
[2022-09-09] MEDS: LEVALBUTEROL 1.25 MG/3 ML NEB NEB SCH ×4 (02:42→15:17)
[2022-09-09 07:23] LABS: Hematocrit (blood only) 39.5 % (42.0-52.0); Hemoglobin 12.8 g/dl (14.0-18.0); Mean Corpuscular Hemoglobin 30.3 pg (25.0-34.0); Mean Corpuscular Hgb Conc 32.4 g/dL (32.0-36.0); Mean Corpuscular Volume 93.6 fL (80.0-100.0); Mean Platelet Volume 10.1 fL (9.4-12.4); Platelet Count 158 K/uL (130-400); RDW Coefficient of Variation 15.1 % (11.5-14.5); RDW Standard Deviation 51.9 fL (36.4-46.3); Red Blood Count 4.22 M/uL (4.70-6.10); White Blood Count 14.98 K/ul (4.8-10.8)
[2022-09-09 07:39] LABS: BUN Creatinine Ratio 37.1 (10-20); Calcium 8.8 mg/dl (8.6-10.3); Creatinine Clr Calc Pharmacy 68.6 ml/min; Est GFR (African American) 104.8 ml/min; Est GFR (Non-African American) 90.4 ml/min; Magnesium 2.2 mg/dl (1.7-2.4); Phosphorus 2.7 mg/dl (2.5-4.9); Potassium 3.9 mmol/L (3.5-5.1)
[2022-09-09] MEDS: UMECLIDINIUM/VILANTEROL 62.5/25MCG 7 PUFFS/INHALER INH SCH (08:09)
[2022-09-09] MEDS: FLUTICASONE FUROATE 100MCG 14 PUFFS/INHALER INH SCH (08:09)
[2022-09-09] MEDS: CYANOCOBALAMIN (B-12) 500 MCG TABLET PEG SCH (09:22)
[2022-09-09] MEDS: ASPIRIN 81 MG CHEW PEG SCH (09:22)
[2022-09-09] MEDS: POLYETHYLENE (MIRALAX) 17 GM PACK PEG SCH (09:22)
[2022-09-09] MEDS: methylPREDNISolone 40 MG in SYRINGE 0 ML IV SCH (09:22)
[2022-09-09] MEDS: FOLIC ACID 1 MG TAB PEG SCH (09:22)
--- NOTE | 2022-09-09 13:04 | Discharge Summary ---
Date of Service September 09, 2022 Admission HPI Per Admitting Provider History obtained from patient and records. Medical history significant for chronic respiratory failure occasional supplemental home O2 use, chronic diastolic heart failure (EF 50 to 55%, TTE 2020) , chronic LBBB, CAD status post CABG, status post bioprosthetic AVR, COPD as per records, chronic pulmonary aspiration status post PEG tube placement, hypertension, hyperlipidemia, nasopharyngeal cancer status post chemoradiation, chronic anemia (baseline hemoglobin of 12 ), past tobacco abuse. Last confinement May 2022 for septic shock secondary to aspiration pneumonia and epistaxis in the setting of abnormalities/history head and neck cancer treatment. Patient transferred to [facility] for further management of epistaxis. Patient subsequently underwent coiling embolization of bilateral sphenopalatine arteries by interventional neurosurgery. Patient noted worsening cough symptoms productive of yellow sputum the last few days. Patient denies chest pain, SOB. Patient completed COVID-19 vaccination. Not sure about sick contacts. No recent john aspiration episode to his recollection. O2 sats noted to be 70s at home yesterday which is lower than usual. Patient brought to the ER for evaluation. O2 sats noted to be 80s, SBP noted to be 80s at 1 point. Ceftriaxone, Decadron, and neb treatment administered at the ER. 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 Admission Exam Per Admitting Provider GENERAL: Slightly uncomfortable, nasal speech, minimal respiratory distress SKIN: Pallor, warm HEENT: Pale palpebral conjunctivae, no ptosis, dry buccal mucosa, palatal defect noted, O2 mask in place NECK : Supple, no tenderness CHEST : Decreased breath sounds, expiratory wheezes, no tenderness HEART : RRR, no obvious murmurs ABDOMEN: Some distention, PEG tube in place, nontender EXTREMITIES : No LE swelling/tenderness, no other conspicuous deformities noted NEUROLOGIC : Coherent, no facial asymmetry, mild hearing impairment, no other gross focality Principal Diagnosis Acute on chronic respiratory failure with hypoxia COPD exacerbation Pneumonia Discharge Exam Constitutional + well hydrated; no acute distress Eyes PERRL, conjunctivae normal, anicteric sclerae Respiratory On 2 L/min via oxy mask, coarse breath sounds, bilateral crackles Cardiovascular Rate/Rhythm: regular rate and regular rhythm S1 S2 Gastrointestinal (Abdomen) normal bowel sounds, soft, nontender, no hepatosplenomegaly PEG in situ Musculoskeletal No pedal edema Neurologic PERRL, EOMI, accommodation nl, no face palsy, no dysarthria Psychiatric A+Ox3, euthymic affect Discharge Data Allergies Allergy/AdvReac Type Severity Reaction Status Date / Time No Known Allergies Allergy Verified 09/05/22 23:25 Consultations 09/05/22 23:43 ED Decision to Admit Stat Ordered Studies 09/06/22 00:22 CT angio chest PE protocol Stat Hospital Course (1) Acute exacerbation of chronic obstructive pulmonary disease: Plan 77-year-old male with PMH of chronic pulmonary aspiration s/p PEG tube placement, nasopharyngeal cancer s/p chemoradiation, Epistaxis (in the abnormalities/history head and neck cancer treatment) s/p coiling embolization of bilateral sphenopalatine arteries by interventional neurosurgery, COPD, chronic respiratory failure on occasional supplemental home oxygen use, chronic diastolic heart failure [EF 50 to 55%, TTE 2020], chronic LBBB, CAD s/p CABG, s/p bioprosthetic AVR, HTN, HLD, chronic anemia [baseline hemoglobin 12], past tobacco abuse presented to the ED 09/05/22 with complaint of worsening cough productive of yellowish sputum for the last few days Acute on chronic hypoxemic respiratory failure Possible COPD exacerbation Recurrent aspiration pneumonia History of chronic pulmonary aspiration status post PEG tube placement on tube feeds: Patient will need script stating "resumption of tube feedings as previously ordered" on day of discharge Patient presents with worsening cough productive of yellowish sputum, has aspiration risks. At ED, O2 sats noted to be in 80s. Reports he was on 2L/min of oxygen but had to increase over the days leading to presentation Admitting CXR and CTA chest reviewed. CTA chest noted extensive tree-in-bud nodularity throughout both lungs, bronchial wall thickening and multifocal mucus plugging Was managed with IV Unasyn while inpatient and discharged on augmentin via PEG to complete 5 days of treatment Was managed with nebs and steroid while inpatient Blood cultures negative so far Aspiration precaution Continue with tube feed. WBC was 7 on presentation, increased to 26K. Down to 14K today Leukocytosis likely due to combination of infectious process and steroid Oxygen was weaned down 2 step today showed no oxygen requirement at rest and 2L/min NC with activity Other chronic medical conditions: chronic diastolic heart failure chronic LBBB hx CAD status post CABG, status post bioprosthetic AVR hyperlipidemia, on statin Rx nasopharyngeal cancer status post chemoradiation chronic anemia, hemoglobin at baseline past tobacco abuse To continue tube feeding at home Discharged home Total Time Total Time Spent Total Time Spent (In Minutes): 35 Total Time Includes: Examination of the Patient, Discharge Planning and Medication Reconciliation Discharge Plan Discharge Items Patient Disposition: Home - Self-Care Reason For Visit: HYPOTENSION, RESP FAILURE Discharge Diagnosis: Acute on chronic respiratory failure with hypoxia COPD exacerbation Pneumonia Activity: Resume your previous activity Non-emergency contact: Primary Care Provider Call non-emergency contact if: you have any medication questions and your symptoms worsen Follow-up/Referrals: Prudencio Burns MD [Primary Care Provider] - (Date & Time 09/15/2022 5:00 PM Provider Petty Sheppard PA-C Department [facility] ) Diet: Other - See Diet Comment Diet Comment: Continue tubefeeding Addtl Attending Provider Instructions: Mr Dodson You came to the hospital with 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 You were evaluated and managed for the above listed diagnoses. Your symptoms improved. Please take augmentin for one more day to complete treatment. Please continue to use oxygen at 2L/min with activity. Please ensure follow up with your Primary Doctor. It was a pleasure taking care of you. Pending Studies at Discharge: No Stand-Alone Forms: My [facility] [employer], Smoking Cessation Medications and DC Order Prescriptions: New amoxicillin-pot clavulanate [Augmentin] 250-62.5 mg/5 mL suspension for reconstitution 10 ml feeding tube Q8H Qty: 100 0RF Continued atorvastatin 40 mg Tablet 40 mg feeding tube QPM nitroglycerin 0.4 mg Tablet, Sublingual 0.4 mg sublingual UD PRN (Reason: Chest Pain) Rx Instructions: NEEDEDFOR CHEST PAIN : ONE TABLET UNDER THE TONGUE EVERY 5 MINUTES UP TO THREE DOSES. albuterol sulfate [ProAir HFA] 90 mcg/actuation HFA aerosol inhaler 2 inh inhalation Q6H PRN (Reason: shortness of breath or wheezing) Qty: 8.5 0RF Nutren 2.0 0.08 gram-2 kcal/mL Liquid 1 ea feeding tube QID Rx Instructions: administer via gravity bag clotrimazole 1 % cream 1 applic TOPICAL BID Rx Instructions: APPLY TOPICALLY TO PEG SITE TWO TIMES A DAY. water for irrigation, sterile Solution 120 ml IRRIGATION 5XD Rx Instructions: into feeding tube acetaminophen [Tylenol] 325 mg Tablet 650 mg PO DIRECTED PRN (Reason: Pain) aspirin 81 mg Tablet,Chewable 81 mg PO DAILY polyethylene glycol 3350 [Miralax] 17 gram/dose Powder 17 g feeding tube DAILY Trelegy Ellipta 100-62.5-25 mcg Blister With Device 1 inh INHALATION DAILY ipratropium-albuterol 0.5 mg-3 mg(2.5 mg base)/3 mL solution for nebulization 3 ml inhalation Q6H PRN (Reason: Shortness Of Breath Or Wheezing) cyanocobalamin (vitamin B-12) [Vitamin B-12] 1,000 mcg tablet 1,000 mcg feeding tube DAILY folic acid 1 mg tablet 1 mg feeding tube DAILY Discharge Orders: Discharge Order (Routine); Ordered 09/09/22 Ordered By: Aretha Dunbar Admission Data Admit Date/Time: 09/06/22 00:24 Attending Provider: Aretha Dunbar I. Admit Provider: Alonso Rodriguez Primary Care Provider: Prudencio Burns Other Providers: Alonso Rodriguez ; Karin Curry Other Interventions: Discharge Summary Assessment (RN) Last Done: 09/09/22 14:23
== END 2022-09-09 17:01 | disposition home or self-care (01) | DRG 177 ==
LOC: ED 22:15 → SUATTDRO 09-06 00:24 → 2S 09-06 00:24
DX: J69.0 Pneumonitis due to inhalation of food and vomit; Z85.22 Personal history of malignant neoplasm of nasal cavities, middle ear, and accessory sinuses; Z93.1 Gastrostomy status; I44.7 Left bundle-branch block, unspecified; Z95.1 Presence of aortocoronary bypass graft; I11.0 Hypertensive heart disease with heart failure; Z79.82 Long term (current) use of aspirin; E86.0 Dehydration; I95.9 Hypotension, unspecified; Z92.21 Personal history of antineoplastic chemotherapy; I50.32 Chronic diastolic (congestive) heart failure; Z92.3 Personal history of irradiation; J44.1 Chronic obstructive pulmonary disease with (acute) exacerbation; J96.21 Acute and chronic respiratory failure with hypoxia; Z66 Do not resuscitate; I25.10 Atherosclerotic heart disease of native coronary artery without angina pectoris; Z99.81 Dependence on supplemental oxygen; Z85.819 Personal history of malignant neoplasm of unspecified site of lip, oral cavity, and pharynx

== ENCOUNTER 2022-10-03 18:33 | Inpatient (IN) ==
[2022-10-03] MEDS ORDERED: cefTRIAXone SODIUM 2,000 MG/70 ML BAG IV STA (18:39)
[2022-10-03] MEDS ORDERED: SODIUM CHLORIDE 0.9% 1000ML 1,000 ML IV ONE ×2 (18:39→19:00)
--- NOTE | 2022-10-03 18:42 | Emergency Department Note ---
Impression & Plan Acute hypoxemic respiratory failure, Pneumonia ED Provider Note NAME: DAXA WRIGHT AGE: 77 SEX: M : 1945 ARRIVES VIA: Ambulance INFORMANT: Patient, EMS ED PROVIDER(S): Rolo Shirley DO CHIEF COMPLAINT: Shortness of breath HPI: Patient is a 77-year-old male with a past medical history of COPD, respiratory failure, chronic aspiration with a G-tube in place who presents the ER for shortness of breath which started last night. He does wear 2 L chronically. He denies any headache or change in vision. No chest pain. No belly pain, nausea, vomiting, or diarrhea. No dysuria, urgency, or frequency. No other exacerbating or remitting factors. He notes this feels like his previous bouts of pneumonia. Per EMS he is an aspiration risk with history of throat cancer who was placed on 15 L as he was found to be hypoxic on a simple facemask at 85%. PAST MEDICAL HISTORY:See Below PAST SURGICAL HISTORY:See Below FAMILY HISTORY:See Below SOCIAL HISTORY:See Below HOME MEDICATIONS:See Below ALLERGIES:See Below VITALS:See Below PHYSICAL EXAMINATION: GENERAL: Sitting up in bed, alert, ill-appearing, disheveled EYE EXAM: normal conjunctiva. PERRL and EOM's grossly intact. OROPHARYNX: mucous membranes are moist NECK: supple, no nuchal rigidity, no adenopathy, non-tender LUNGS: Diminished bilateral bases. Normal chest wall mechanics HEART: no murmurs, S1 normal and S2 normal ABDOMEN: abdomen soft, non-tender, normo-active bowel sounds, no masses, no rebound or guarding. UPPER EXTREMITIES: upper extremities are grossly normal. LOWER EXTREMITIES: No pitting edema. Calves are equal bilateral NEURO EXAM: Normal sensorium, cranial nerves II-XII grossly intact, normal speech, no gross weakness of arms, no gross weakness of legs. MEDICAL DECISION MAKING: Patient is a 77-year-old male who presents ER for above-stated complaint. Upon arrival of EMS he is found to be hypoxic and was on nonrebreather. This was switched to BiPAP as he was 85% on nonrebreather. He was found to be hypotensive with systolic pressures in the 80s. Chart review shows he has an EF of 50%. He was given a liter of normal saline and pressures trended up over the hour to 120s. I was notified later after we called for admission that he dropped his pressures again. At this point he was reassessed and he was given another 500 cc of normal saline. He was not given a 30 cc/kg bolus due to the history of heart failure. Following this 500 cc pressures were again up in the 100s. Chest x-ray showed pneumonia. Labs showed a mild leukocytosis. He was given neb treatments in combination with steroids and cefepime. VBG with a CO2 of 66. Troponin was negative. proBNP mildly elevated. Pro-Lorenzo elevated at 6.9. Viral panel was negative. Patient was admitted to the hospitalist for further management and work-up. Triage Nursing notes reviewed. Limited review of prior medical records performed Vital Signs: reviewed and remarkable for hypoxic Differential diagnosis: Differential diagnoses includes but is not limited to pneumonia, bronchitis, COPD/Asthma exacerbation, pneumothorax, pulmonary embolism, congestive heart failure, acute coronary syndrome ER treatment provided: See below Diagnostics interpreted by me include EKG and cardiac monitoring as listed belo w: -Cardiac Monitoring: An order was placed for continuous cardiac monitoring. The monitor shows a rate of 85 with sinus rhythm. -ECG: Sinus rhythm rate 88 Normal axis No PVCs QTc 438 -Laboratory studies:Interpreted by me as stated above in MDM and shown below. Imaging studies: Xrays: As interpreted by me: Portable AP upright 1 view of the chest shows right lower lobe infiltrate CTs show: none Consultation(s): As described in MDM Procedures:none Critical Care: I have personally spent 40 minutes of critical care time in the direct management of this patient. This includes bedside care, interpretation of diagnostic studies, and testing, discussion with consultants, patient, and family members, and other required patient management activities. This 40 minutes is in excess of all separately billable procedures. 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 Milton- [facility]/ NO STENTS History of cataract surgery History of colonoscopy with polypectomy 09/25/2018. Propofol given, no issues. History of coronary artery bypass graft One vessel - 2016 - [facility] History of heart valve replacement Bioprosthetic aortic valve - NIOTAZE 2016 History of shoulder surgery RIGHT History of tonsillectomy History of tooth extraction History of vascular access device NO LONGER HAS PORT Hx of aortic valve replacement Status post insertion of percutaneous endoscopic gastrostomy (PEG) tube PLACED DUE TO PALATE SURGERY- THEN REMOVED 2014 Family History Father Cancer Liver Cancer Social History Smoking Status: Former smoker Tobacco Type: Cigarettes Second Hand Exposure: No; Do You Dip or Chew Tobacco: No; Hx Alcohol Use: No Hx Substance Use: No Preferred Language: Syrian Communication Ability: Effective Communication Ability Comment: Has tablet Director Of Speech Pathology Required: No Beliefs That Will Affect Care: None marital status: / Current Living Situation: Other Current Living Situation Comment: Has a roommate How many Children do You have: 1 Feels Safe at Home: Yes Assistive Devices: Cane and Walker Allergies Allergies Allergy/AdvReac Type Severity Reaction Status Date / Time No Known Allergies Allergy Verified 09/05/22 23:25 Home Meds Home Medications Medication Instructions Recorded Confirmed atorvastatin 40 mg tablet 40 mg feeding tube QPM 09/18/18 10/03/22 nitroglycerin 0.4 mg sublingual 0.4 mg sublingual UD PRN Chest Pain 09/18/18 10/03/22 tablet nutritional supplements 0.08 1 ea feeding tube QID 02/19/21 10/03/22 gram-2 kcal/mL liquid for tube feed (Nutren 2.0) clotrimazole 1 % topical cream 1 applic topical BID 12/28/21 10/03/22 water for irrigation, sterile 120 ml irrigation 5XD 03/07/22 10/03/22 acetaminophen 325 mg tablet 650 mg PO DIRECTED PRN Pain 09/05/22 10/03/22 (Tylenol) ipratropium 0.5 mg-albuterol 3 mg 3 ml inhalation Q6H PRN Shortness 09/05/22 10/03/22 (2.5 mg base)/3 mL nebulization Of Breath soln Previous Rx's Medication Instructions Recorded albuterol sulfate 90 mcg/actuation 2 inh inhalation Q6H PRN shortness 05/06/20 aerosol inhaler (ProAir HFA) of breath or wheezing #8.5 grams Results & Data (ED) Vital Signs Vital Signs - 24 hr 10/03/22 18:49 10/03/22 18:39 10/03/22 18:39 Temperature 37.1 C Temperature Source Oral Pulse Rate 91 H 94 H Pulse Rate [Apical] Pulse Rate from SpO2 Sensor Pulse Rhythm Regular Pulse Rhythm [Apical] Pulse Strength Normal Pulse Strength [Apical] Respiratory Rate 30 H Respiratory Effort / Characteristics Labored Labored Respiratory Depth Shallow Shallow Respiratory Pattern Tachypnea Tachypnea Blood Pressure 85/59 L Blood Pressure [Right Arm] Blood Pressure Mean 67 Blood Pressure Mean [Right Arm] Blood Pressure Position Sitting Pulse Oximetry 85 L Oxygen Delivery Method Nasal Cannula Nasal Cannula Oxygen Flow Rate 15 Fraction of Inspired Oxygen Sepsis Recent Fever Within 48 Hours No Sepsis New/Unexplained Change in Mental Status No Sepsis Action Taken by Nursing Physician Notified 10/03/22 18:39 10/03/22 18:39 10/03/22 18:39 Temperature Temperature Source Pulse Rate 94 H Pulse Rate [Apical] 94 H Pulse Rate from SpO2 Sensor Pulse Rhythm Regular Pulse Rhythm [Apical] Regular Pulse Strength Pulse Strength [Apical] Normal Respiratory Rate 30 H 30 H Respiratory Effort / Characteristics Labored Respiratory Depth Shallow Respiratory Pattern Tachypnea Blood Pressure Blood Pressure [Right Arm] 85/59 L Blood Pressure Mean Blood Pressure Mean [Right Arm] 67 Blood Pressure Position Pulse Oximetry 85 L 85 L Oxygen Delivery Method Non-rebreather Non-rebreather Non-rebreather Oxygen Flow Rate 15 Fraction of Inspired Oxygen Sepsis Recent Fever Within 48 Hours Sepsis New/Unexplained Change in Mental Status Sepsis Action Taken by Nursing 10/03/22 18:50 10/03/22 18:51 10/03/22 18:51 Temperature Temperature Source Pulse Rate 91 H 92 H Pulse Rate [Apical] Pulse Rate from SpO2 Sensor 90 92 H Pulse Rhythm Pulse Rhythm [Apical] Pulse Strength Pulse Strength [Apical] Respiratory Rate 18 29 H Respiratory Effort / Characteristics Respiratory Depth Respiratory Pattern Blood Pressure 84/50 L Blood Pressure [Right Arm] Blood Pressure Mean 58 Blood Pressure Mean [Right Arm] Blood Pressure Position Pulse Oximetry 87 L 86 L Oxygen Delivery Method Oxygen Flow Rate Fraction of Inspired Oxygen Sepsis Recent Fever Within 48 Hours Sepsis New/Unexplained Change in Mental Status Sepsis Action Taken by Nursing 10/03/22 19:00 10/03/22 19:00 10/03/22 19:07 Temperature Temperature Source Pulse Rate 90 Pulse Rate [Apical] Pulse Rate from SpO2 Sensor 84 Pulse Rhythm Pulse Rhythm [Apical] Pulse Strength Pulse Strength [Apical] Respiratory Rate 22 Respiratory Effort / Characteristics Respiratory Depth Respiratory Pattern Blood Pressure 79/58 L 78/54 L Blood Pressure [Right Arm] Blood Pressure Mean 64 57 Blood Pressure Mean [Right Arm] Blood Pressure Position Pulse Oximetry 92 Oxygen Delivery Method BiPAP Oxygen Flow Rate Fraction of Inspired Oxygen Sepsis Recent Fever Within 48 Hours Sepsis New/Unexplained Change in Mental Status Sepsis Action Taken by Nursing 10/03/22 19:07 10/03/22 19:15 10/03/22 19:30 Temperature Temperature Source Pulse Rate 89 88 95 H Pulse Rate [Apical] Pulse Rate from SpO2 Sensor 89 88 95 H Pulse Rhythm Pulse Rhythm [Apical] Pulse Strength Pulse Strength [Apical] Respiratory Rate 20 19 24 Respiratory Effort / Characteristics Respiratory Depth Respiratory Pattern Blood Pressure 87/66 L 129/89 Blood Pressure [Right Arm] Blood Pressure Mean 73 102 Blood Pressure Mean [Right Arm] Blood Pressure Position Pulse Oximetry 92 94 98 Oxygen Delivery Method Oxygen Flow Rate Fraction of Inspired Oxygen Sepsis Recent Fever Within 48 Hours Sepsis New/Unexplained Change in Mental Status Sepsis Action Taken by Nursing 10/03/22 19:45 10/03/22 19:45 10/03/22 20:00 Temperature Temperature Source Pulse Rate 100 H Pulse Rate [Apical] Pulse Rate from SpO2 Sensor 99 H Pulse Rhythm Pulse Rhythm [Apical] Pulse Strength Pulse Strength [Apical] Respiratory Rate 18 Respiratory Effort / Characteristics Respiratory Depth Respiratory Pattern Blood Pressure 125/77 126/70 Blood Pressure [Right Arm] Blood Pressure Mean 102 86 Blood Pressure Mean [Right Arm] Blood Pressure Position Pulse Oximetry 97 Oxygen Delivery Method Oxygen Flow Rate Fraction of Inspired Oxygen Sepsis Recent Fever Within 48 Hours Sepsis New/Unexplained Change in Mental Status Sepsis Action Taken by Nursing 10/03/22 20:00 10/03/22 18:57 10/03/22 20:15 Temperature Temperature Source Pulse Rate 100 H 91 H Pulse Rate [Apical] Pulse Rate from SpO2 Sensor 100 H Pulse Rhythm Pulse Rhythm [Apical] Pulse Strength Pulse Strength [Apical] Respiratory Rate 21 23 Respiratory Effort / Characteristics Non-Labored Spontaneous Respiratory Depth Normal Respiratory Pattern Regular Blood Pressure 88/54 L Blood Pressure [Right Arm] Blood Pressure Mean 58 Blood Pressure Mean [Right Arm] Blood Pressure Position Pulse Oximetry 97 92 Oxygen Delivery Method Oxygen Flow Rate Fraction of Inspired Oxygen 60 Sepsis Recent Fever Within 48 Hours Sepsis New/Unexplained Change in Mental Status Sepsis Action Taken by Nursing 10/03/22 20:15 10/03/22 20:30 10/03/22 20:30 Temperature Temperature Source Pulse Rate 101 H 99 H Pulse Rate [Apical] Pulse Rate from SpO2 Sensor 101 H 99 H Pulse Rhythm Pulse Rhythm [Apical] Pulse Strength Pulse Strength [Apical] Respiratory Rate 24 21 Respiratory Effort / Characteristics Respiratory Depth Respiratory Pattern Blood Pressure 74/48 L Blood Pressure [Right Arm] Blood Pressure Mean 53 Blood Pressure Mean [Right Arm] Blood Pressure Position Pulse Oximetry 97 94 Oxygen Delivery Method Oxygen Flow Rate Fraction of Inspired Oxygen Sepsis Recent Fever Within 48 Hours Sepsis New/Unexplained Change in Mental Status Sepsis Action Taken by Nursing 10/03/22 20:35 10/03/22 20:35 10/03/22 20:45 Temperature Temperature Source Pulse Rate 99 H Pulse Rate [Apical] Pulse Rate from SpO2 Sensor 99 H Pulse Rhythm Pulse Rhythm [Apical] Pulse Strength Pulse Strength [Apical] Respiratory Rate 20 Respiratory Effort / Characteristics Respiratory Depth Respiratory Pattern Blood Pressure 87/58 L 88/56 L Blood Pressure [Right Arm] Blood Pressure Mean 80 65 Blood Pressure Mean [Right Arm] Blood Pressure Position Pulse Oximetry 94 Oxygen Delivery Method Oxygen Flow Rate Fraction of Inspired Oxygen Sepsis Recent Fever Within 48 Hours Sepsis New/Unexplained Change in Mental Status Sepsis Action Taken by Nursing 10/03/22 20:45 10/03/22 22:57 Temperature Temperature Source Pulse Rate 97 H 80 Pulse Rate [Apical] Pulse Rate from SpO2 Sensor 98 H Pulse Rhythm Pulse Rhythm [Apical] Pulse Strength Pulse Strength [Apical] Respiratory Rate 21 Respiratory Effort / Characteristics Respiratory Depth Respiratory Pattern Blood Pressure Blood Pressure [Right Arm] Blood Pressure Mean Blood Pressure Mean [Right Arm] Blood Pressure Position Pulse Oximetry 98 Oxygen Delivery Method Oxygen Flow Rate Fraction of Inspired Oxygen Sepsis Recent Fever Within 48 Hours Sepsis New/Unexplained Change in Mental Status Sepsis Action Taken by Nursing Laboratory Data 10/03/22 18:54 10/03/22 18:54 Lab Results 10/03/22 10/03/22 10/03/22 Range/Units 18:54 18:54 18:54 WBC 11.38 H (4.8-10.8) K/ul RBC 4.44 L (4.70-6.10) M/uL Hgb 13.8 L (14.0-18.0) g/dl Hct 42.7 (42.0-52.0) % MCV 96.2 (80.0-100.0) fL MCH 31.1 (25.0-34.0) pg MCHC 32.3 (32.0-36.0) g/dL RDW Std Deviation 49.3 H (36.4-46.3) fL RDW Coeff of Navid 14.2 (11.5-14.5) % Plt Count 180 (130-400) K/uL MPV 11.2 (9.4-12.4) fL Immature Gran % (Auto) 0.4 % Neut % (Auto) 86.1 % Lymph % (Auto) 1.9 % Austin % (Auto) 11.2 % Eos % (Auto) 0.0 % Baso % (Auto) 0.4 % Neut # (Auto) 9.81 H (1.40-6.50) K/uL Lymph # (Auto) 0.22 L (1.20-3.40) K/uL Austin # (Auto) 1.27 H (0.11-0.59) K/uL Eos # (Auto) 0.00 (0.00-0.50) K/uL Baso # (Auto) 0.04 (0.00-0.20) K/uL Immature Gran # (Auto) 0.04 (0.01-0.20) K/uL PT 11.4 (9.0-12.0) Seconds INR 1.0 (0.9-1.1) VBG pH (7.36-7.41) VBG pCO2 (38-50) mmHg VBG pO2 mmHg VBG HCO3 mmol/L VBG O2 Saturation % VBG Base Excess mEq/L Sodium 141 (136-145) mmol/L Potassium 4.5 (3.5-5.1) mmol/L Chloride 98 (98-107) mmol/L Carbon Dioxide 36 H (21-32) mmol/L Anion Gap 7 (3-11) BUN 42 H (6-23) mg/dl Creatinine 0.93 (0.6-1.4) mg/dl Est Cr Clr Drug Dosing 53.0 ml/min Est GFR ( Amer) 90.8 ml/min Est GFR (Non-Af Amer) 78.4 ml/min BUN/Creatinine Ratio 45.2 H (10-20) Glucose 76 (70-99(Fasting)) mg/dl Lactate (0.4-2.0) mmol/L Calcium 9.3 (8.6-10.3) mg/dl Magnesium 2.1 (1.7-2.4) mg/dl Total Bilirubin 0.6 (0.2-1.0) mg/dl Direct Bilirubin 0.2 (0-0.2) mg/dl AST 63 H (13-39) U/L ALT 36 (7-52) U/L Alkaline Phosphatase 105 H (34-104) U/L Troponin I High Sens 16.0 (0-20) pg/ml B-Natriuretic Peptide (0-100) pg/ml Total Protein 7.6 (6.0-8.3) gm/dl Albumin 3.5 (3.4-5.0) gm/dl Procalcitonin (0-0.5) ng/ml Adenovirus (PCR) (NotDetected) B. pertussis DNA (PCR) (NotDetected) B.parapertussis DNA PCR (NotDetected) C. pneumoniae DNA (PCR) (NotDetected) Coronavirus OC43 (PCR) (NotDetected) Coronavirus HKU1 (PCR) (NotDetected) Coronavirus 229E (PCR) (NotDetected) SARS-CoV-2 (PCR) (NotDetected) Coronavirus NL63 (PCR) (NotDetected) Human Metapneumovir PCR (NotDetected) Influenza Type A (PCR) (NotDetected) Influenza Type B (PCR) (NotDetected) M. pneumoniae (PCR) (NotDetected) Parainfluenza 1 (PCR) (NotDetected) Parainfluenza 2 (PCR) (NotDetected) Parainfluenza 3 (PCR) (NotDetected) Parainfluenza 4 (PCR) (NotDetected) RSV (PCR) (NotDetected) Entero/Rhino (PCR) (NotDetected) 10/03/22 10/03/22 10/03/22 Range/Units 18:54 18:55 19:07 WBC (4.8-10.8) K/ul RBC (4.70-6.10) M/uL Hgb (14.0-18.0) g/dl Hct (42.0-52.0) % MCV (80.0-100.0) fL MCH (25.0-34.0) pg MCHC (32.0-36.0) g/dL RDW Std Deviation (36.4-46.3) fL RDW Coeff of Navid (11.5-14.5) % Plt Count (130-400) K/uL MPV (9.4-12.4) fL Immature Gran % (Auto) % Neut % (Auto) % Lymph % (Auto) % Austin % (Auto) % Eos % (Auto) % Baso % (Auto) % Neut # (Auto) (1.40-6.50) K/uL Lymph # (Auto) (1.20-3.40) K/uL Austin # (Auto) (0.11-0.59) K/uL Eos # (Auto) (0.00-0.50) K/uL Baso # (Auto) (0.00-0.20) K/uL Immature Gran # (Auto) (0.01-0.20) K/uL PT (9.0-12.0) Seconds INR (0.9-1.1) VBG pH 7.38 (7.36-7.41) VBG pCO2 66 H (38-50) mmHg VBG pO2 30 mmHg VBG HCO3 39 mmol/L VBG O2 Saturation < 60.0 % VBG Base Excess 11.1 mEq/L Sodium (136-145) mmol/L Potassium (3.5-5.1) mmol/L Chloride (98-107) mmol/L Carbon Dioxide (21-32) mmol/L Anion Gap (3-11) BUN (6-23) mg/dl Creatinine (0.6-1.4) mg/dl Est Cr Clr Drug Dosing ml/min Est GFR ( Amer) ml/min Est GFR (Non-Af Amer) ml/min BUN/Creatinine Ratio (10-20) Glucose (70-99(Fasting)) mg/dl Lactate (0.4-2.0) mmol/L Calcium (8.6-10.3) mg/dl Magnesium (1.7-2.4) mg/dl Total Bilirubin (0.2-1.0) mg/dl Direct Bilirubin (0-0.2) mg/dl AST (13-39) U/L ALT (7-52) U/L Alkaline Phosphatase (34-104) U/L Troponin I High Sens (0-20) pg/ml B-Natriuretic Peptide (0-100) pg/ml Total Protein (6.0-8.3) gm/dl Albumin (3.4-5.0) gm/dl Procalcitonin 6.93 H (0-0.5) ng/ml Adenovirus (PCR) Not Detected (NotDetected) B. pertussis DNA (PCR) Not Detected (NotDetected) B.parapertussis DNA PCR Not Detected (NotDetected) C. pneumoniae DNA (PCR) Not Detected (NotDetected) Coronavirus OC43 (PCR) Not Detected (NotDetected) Coronavirus HKU1 (PCR) Not Detected (NotDetected) Coronavirus 229E (PCR) Not Detected (NotDetected) SARS-CoV-2 (PCR) Not Detected (NotDetected) Coronavirus NL63 (PCR) Not Detected (NotDetected) Human Metapneumovir PCR Not Detected (NotDetected) Influenza Type A (PCR) Not Detected (NotDetected) Influenza Type B (PCR) Not Detected (NotDetected) M. pneumoniae (PCR) Not Detected (NotDetected) Parainfluenza 1 (PCR) Not Detected (NotDetected) Parainfluenza 2 (PCR) Not Detected (NotDetected) Parainfluenza 3 (PCR) Not Detected (NotDetected) Parainfluenza 4 (PCR) Not Detected (NotDetected) RSV (PCR) Not Detected (NotDetected) Entero/Rhino (PCR) Not Detected (NotDetected) 10/03/22 10/03/22 Range/Units 19:20 19:20 WBC (4.8-10.8) K/ul RBC (4.70-6.10) M/uL Hgb (14.0-18.0) g/dl Hct (42.0-52.0) % MCV (80.0-100.0) fL MCH (25.0-34.0) pg MCHC (32.0-36.0) g/dL RDW Std Deviation (36.4-46.3) fL RDW Coeff of Navid (11.5-14.5) % Plt Count (130-400) K/uL MPV (9.4-12.4) fL Immature Gran % (Auto) % Neut % (Auto) % Lymph % (Auto) % [place] % (Auto) % Eos % (Auto) % Baso % (Auto) % Neut # (Auto) (1.40-6.50) K/uL Lymph # (Auto) (1.20-3.40) K/uL Austin # (Auto) (0.11-0.59) K/uL Eos # (Auto) (0.00-0.50) K/uL Baso # (Auto) (0.00-0.20) K/uL Immature Gran # (Auto) (0.01-0.20) K/uL PT (9.0-12.0) Seconds INR (0.9-1.1) VBG pH (7.36-7.41) VBG pCO2 (38-50) mmHg VBG pO2 mmHg VBG HCO3 mmol/L VBG O2 Saturation % VBG Base Excess mEq/L Sodium (136-145) mmol/L Potassium (3.5-5.1) mmol/L Chloride (98-107) mmol/L Carbon Dioxide (21-32) mmol/L Anion Gap (3-11) BUN (6-23) mg/dl Creatinine (0.6-1.4) mg/dl Est Cr Clr Drug Dosing ml/min Est GFR ( Amer) ml/min Est GFR (Non-Af Amer) ml/min BUN/Creatinine Ratio (10-20) Glucose (70-99(Fasting)) mg/dl Lactate 1.8 (0.4-2.0) mmol/L Calcium (8.6-10.3) mg/dl Magnesium (1.7-2.4) mg/dl Total Bilirubin (0.2-1.0) mg/dl Direct Bilirubin (0-0.2) mg/dl AST (13-39) U/L ALT (7-52) U/L Alkaline Phosphatase (34-104) U/L Troponin I High Sens (0-20) pg/ml B-Natriuretic Peptide 127 H (0-100) pg/ml Total Protein (6.0-8.3) gm/dl Albumin (3.4-5.0) gm/dl Procalcitonin (0-0.5) ng/ml Adenovirus (PCR) (NotDetected) B. pertussis DNA (PCR) (NotDetected) B.parapertussis DNA PCR (NotDetected) C. pneumoniae DNA (PCR) (NotDetected) Coronavirus OC43 (PCR) (NotDetected) Coronavirus HKU1 (PCR) (NotDetected) Coronavirus 229E (PCR) (NotDetected) SARS-CoV-2 (PCR) (NotDetected) Coronavirus NL63 (PCR) (NotDetected) Human Metapneumovir PCR (NotDetected) Influenza Type A (PCR) (NotDetected) Influenza Type B (PCR) (NotDetected) M. pneumoniae (PCR) (NotDetected) Parainfluenza 1 (PCR) (NotDetected) Parainfluenza 2 (PCR) (NotDetected) Parainfluenza 3 (PCR) (NotDetected) Parainfluenza 4 (PCR) (NotDetected) RSV (PCR) (NotDetected) Entero/Rhino (PCR) (NotDetected) Administered Medications Lactated Ringer's (Lr) 1,000 mls @ 100 mls/hr IV .Q10H STA Stop: 10/04/22 07:38 Last Admin: 10/03/22 21:48 Dose: 100 mls/hr Documented By: TREV Discontinued Medications Albuterol (Albuterol 0.083% Nebu Soln 3 Ml Vial) 5 mg NEB NOW STA; Protocol Stop: 10/03/22 19:00 Last Admin: 10/03/22 19:15 Dose: 5 mg Documented By: EML Dexamethasone Sodium Phosphate (DexamethasonePf 10 Mg/Ml Vial) 10 mg IV NOW ONE Stop: 10/03/22 19:00 Last Admin: 10/03/22 19:17 Dose: 10 mg Documented By: RSL Sodium Chloride (Nss 1000ml) 1,000 mls @ 999 mls/hr IV .Q1H1M ONE Stop: 10/03/22 19:39 Last Infusion: 10/03/22 20:05 Dose: 0 mls/hr Documented By: Admin: 10/03/22 19:17 Dose: 999 mls/hr Documented By: RSL Ceftriaxone Sodium (Rocephin) 2,000 mg in 70 mls @ 140 mls/hr IV NOW STA Stop: 10/03/22 19:08 Last Admin: 10/03/22 19:17 Dose: Not Given Documented By: RSL Sodium Chloride (Nss 1000ml) 1,000 mls @ 999 mls/hr IV .Q1H1M ONE Stop: 10/03/22 20:00 Last Infusion: 10/03/22 21:43 Dose: 0 mls/hr Documented By: Admin: 10/03/22 20:51 Dose: 999 mls/hr Documented By: TREV Cefepime HCl (Maxipime) 2,000 mg in 20 mls @ 5 mls/min IV NOW STA; Protocol Stop: 10/03/22 19:08 Last Admin: 10/03/22 19:17 Dose: 5 mls/min Documented By: RSL Ampicillin Sodium/Sulbactam Sodium 3,000 mg/ Sodium Chloride 108 mls @ 200 mls/hr IV NOW STA Stop: 10/03/22 20:40 Last Infusion: 10/03/22 21:43 Dose: 0 mls/hr Documented By: Admin: 10/03/22 20:48 Dose: 200 mls/hr Documented By: TREV Ipratropium Sentinel (Ipratropium Sentinel Neb Soln 0.02% 2.5 Ml Vial) 0.5 mg INH NOW STA Stop: 10/03/22 20:09 Last Admin: 10/03/22 20:38 Dose: 0.5 mg Documented By: TREV Levalbuterol HCl (Levalbuterol 1.25 Mg/3 Ml Neb) 1.25 mg NEB NOW STA Stop: 10/03/22 20:09 Last Admin: 10/03/22 20:38 Dose: 1.25 mg Documented By: TREV Imaging Data Radiologist's Impression: Chest X-Ray 10/03/22 18:39 XR chest 1V portable HISTORY: Sepsis COMPARISON: Chest 09/05/2022. FINDINGS: No pneumothorax. No pleural effusions. There are postoperative changes. The heart is normal in size. Reticulonodular interstitial thickening persists. This is most pronounced at the lung bases. Hazy appearance of the right medial lung base has slightly progressed. This may represent a developing pneumonitis.. No evidence for pulmonary edema. IMPRESSION: 1. Hazy appearance to the right medial lung base which has progressed. This may represent a developing pneumonitis. 2. Chronic reticulonodular interstitial thickening persists. ACT 112: Negative or not required by law. Electronically signed by: iRtesh Quevedo M.D. 10/03/2022 7:02 PM Discharge Plan Visit Data Chief Complaint: Respiratory Distress ED Provider: Rolo Shirley Discharge Problem: Acute hypoxemic respiratory failure, Pneumonia Forms Stand Alone Forms: My [facility] Prescriptions Prescriptions: No Action atorvastatin 40 mg Tablet 40 mg feeding tube QPM nitroglycerin 0.4 mg Tablet, Sublingual 0.4 mg sublingual UD PRN (Reason: Chest Pain) Rx Instructions: NEEDEDFOR CHEST PAIN : ONE TABLET UNDER THE TONGUE EVERY 5 MINUTES UP TO THREE DOSES. albuterol sulfate [ProAir HFA] 90 mcg/actuation HFA aerosol inhaler 2 inh inhalation Q6H PRN (Reason: shortness of breath or wheezing) Qty: 8.5 0RF Nutren 2.0 0.08 gram-2 kcal/mL Liquid 1 ea feeding tube QID Rx Instructions: administer via pump clotrimazole 1 % cream 1 applic TOPICAL BID Rx Instructions: APPLY TOPICALLY TO PEG SITE TWO TIMES A DAY. water for irrigation, sterile Solution 120 ml IRRIGATION 5XD Rx Instructions: into feeding tube acetaminophen [Tylenol] 325 mg Tablet 650 mg PO DIRECTED PRN (Reason: Pain) ipratropium-albuterol 0.5 mg-3 mg(2.5 mg base)/3 mL solution for nebulization 3 ml inhalation Q6H PRN (Reason: Shortness Of Breath ) Referrals Referrals: Prudencio Burns MD [Primary Care Provider] -
[2022-10-03] MEDS ORDERED: dexAMETHasone**PF** 10 MG/ML VIAL IV ONE (18:59)
[2022-10-03] MEDS ORDERED: ALBUTEROL 0.083% NEBU SOLN 3 ML VIAL NEB STA (18:59)
--- NOTE | 2022-10-03 19:04 | XRay Report ---
XR chest 1V portable HISTORY: Sepsis COMPARISON: Chest 09/05/2022. FINDINGS: No pneumothorax. No pleural effusions. There are postoperative changes. The heart is normal in size. Reticulonodular interstitial thickening persists. This is most pronounced at the lung bases . Hazy appearance of the right medial lung base has slightly progressed. This may represent a develop ing pneumonitis.. No evidence for pulmonary edema. IMPRESSION: 1. Hazy appearance to the right medial lung base which has progressed. This may represent a developin g pneumonitis. 2. Chronic reticulonodular interstitial thickening persists. ACT 112: Negative or not required by law. Electronically signed by: Ritesh Quevedo M.D. 10/03/2022 7:02 PM
[2022-10-03] MEDS ORDERED: CEFEPIME 2,000 MG/20 ML VIAL IV STA (19:05)
[2022-10-03 19:20] LABS: Base Excess VBG 11.1 mEq/L; HCO3 VBG 39 mmol/L; Oxygen Saturation VBG < 60.0 %; PCO2 VBG 66 mmHg (38-50); PO2 VBG 30 mmHg; pH VBG 7.38 (7.36-7.41)
[2022-10-03 19:28] LABS: Basophils # (auto) 0.04 K/uL (0.00-0.20); Basophils % (auto) 0.4 %; Hematocrit (blood only) 42.7 % (42.0-52.0); Hemoglobin 13.8 g/dl (14.0-18.0); Immature Granulocytes # (auto) 0.04 K/uL (0.01-0.20); Immature Granulocytes % (auto) 0.4 %; Lymphocytes # (auto) 0.22 K/uL (1.20-3.40); Lymphocytes % (auto) 1.9 %; Mean Corpuscular Hemoglobin 31.1 pg (25.0-34.0); Mean Corpuscular Hgb Conc 32.3 g/dL (32.0-36.0); Mean Corpuscular Volume 96.2 fL (80.0-100.0); Mean Platelet Volume 11.2 fL (9.4-12.4); Monocytes # (auto) 1.27 K/uL (0.11-0.59); Monocytes % (auto) 11.2 %; Neutrophils # (auto) 9.81 K/uL (1.40-6.50); Neutrophils % (auto) 86.1 %; Platelet Count 180 K/uL (130-400); RDW Coefficient of Variation 14.2 % (11.5-14.5); RDW Standard Deviation 49.3 fL (36.4-46.3); Red Blood Count 4.44 M/uL (4.70-6.10); White Blood Count 11.38 K/ul (4.8-10.8)
[2022-10-03 19:50] LABS: Albumin Level 3.5 gm/dl (3.4-5.0); BUN Creatinine Ratio 45.2 (10-20); Bilirubin Direct 0.2 mg/dl (0-0.2); Bilirubin,Total 0.6 mg/dl (0.2-1.0); Calcium 9.3 mg/dl (8.6-10.3); Est GFR (African American) 90.8 ml/min; Est GFR (Non-African American) 78.4 ml/min; Magnesium 2.1 mg/dl (1.7-2.4); Potassium 4.5 mmol/L (3.5-5.1); Total Protein 7.6 gm/dl (6.0-8.3)
[2022-10-03 20:08] LABS: Adenovirus PCR Not Detected (NotDetected); Bordetella parapertussis PCR Not Detected (NotDetected); Bordetella pertussis PCR Not Detected (NotDetected); Chlamydia pneumoniae PCR Not Detected (NotDetected); Coronavirus 229E PCR Not Detected (NotDetected); Coronavirus CoV-2 (COVID19)PCR Not Detected (NotDetected); Coronavirus HKU1 PCR Not Detected (NotDetected); Coronavirus NL63 PCR Not Detected (NotDetected); Coronavirus OC43PCR Not Detected (NotDetected); Human Metapneumovirus PCR Not Detected (NotDetected); Influenza A PCR Not Detected (NotDetected); Influenza B PCR Not Detected (NotDetected); Mycoplasma pneumoniae PCR Not Detected (NotDetected); Parainfluenza Virus 1 PCR Not Detected (NotDetected); Parainfluenza Virus 2 PCR Not Detected (NotDetected); Parainfluenza Virus 3 PCR Not Detected (NotDetected); Parainfluenza Virus 4 PCR Not Detected (NotDetected); Respiratory Syncytial VirusPCR Not Detected (NotDetected); Rhinovirus/Enterovirus PCR Not Detected (NotDetected)
[2022-10-03 20:08] LABS: Prothrombin Time 11.4 Seconds (9.0-12.0)
[2022-10-03] MEDS ORDERED: IPRATROPIUM BROMIDE NEB SOLN 0.02% 2.5 ML VIAL INH STA (20:08)
[2022-10-03] MEDS ORDERED: XOPENEX/ATROVENT 1.25mg/0.5MG NEB COMBO NEB STA (20:08)
[2022-10-03] MEDS ORDERED: AMPICILLIN/SULBACTAM SOD 3,000 MG in 0.9 % SODIUM CHLORIDE 100 ML IV STA (20:08)
[2022-10-03] MEDS ORDERED: LEVALBUTEROL 1.25 MG/3 ML NEB NEB STA (20:08)
[2022-10-03] MEDS ORDERED: LACTATED RINGER'S 1,000 ML IV STA (21:39)
--- NOTE | 2022-10-03 21:59 | History & Physical Report ---
Date of Service October 03, 2022 Assessment & Plan (1) Acute hypoxemic respiratory failure: Plan: Acute on chronic Secondary to recurrent COPD exacerbation secondary to CAP/possible recurrent aspiration pneumonia hx chronic pulmonary aspiration status post PEG tube placement on tube feeds Patient meets criteria for severe sepsis given serious with hypoxemia. Hypotension secondary to illness chronic diastolic heart failure, patient on the dry side chronic LBBB hx CAD status post CABG status post bioprosthetic AVR hyperlipidemia, on statin Rx nasopharyngeal cancer status post chemoradiation, in remission hx severe epistaxis status post bilateral sphenopalatine artery embolization chronic anemia, hemoglobin at baseline past tobacco abuse Medical telemetry CS, Unasyn, Doxycycline Continue aspiration precautions Nebs RTC, steroid course Pulmonary consult if without improvement IVF Palliative care consultation to discuss goals of care with patient and family given recurrent admissions for COPD exacerbation DVT prophylaxis. SCDs Re: History severe epistaxis DNR as per discussion with patient Total critical care time was 40 minutes. Patient son requesting updates for providers. Mr. Anthony Dodson, contact #[phone]. Text document was generated using [employer] voice recognition software. It may contain grammatical or spelling errors. Kindly contact undersigned for clarification of any documentation item in question. History of Present Illness Chief Complaint: Worsening cough, shortness of breath Primary Care Provider: Prudencio Burns MD History obtained from patient and records. History somewhat difficult to obtain from patient due to BiPAP. Medical history significant for chronic respiratory failure occasional supplemental home O2 use, chronic diastolic heart failure (EF 50 to 55%, TTE 2020) , chronic LBBB, CAD status post CABG, status post bioprosthetic AVR, COPD as per records, chronic pulmonary aspiration status post PEG tube placement, hypertension, hyperlipidemia, nasopharyngeal cancer status post chemoradiation, chronic anemia (baseline hemoglobin of 12 ), hx severe epistaxis status post sphenopalatine artery embolization, past tobacco abuse. Four admissions at [facility] this year for COPD exacerbation. Last night, patient noted worsening junky cough symptoms along with worsening 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 Patient denies chest pain. Patient completed COVID-19 vaccination. Not sure about sick contacts. No recent john aspiration episode. O2 sats noted to be 80s by EMS on simple facemask. At the ER, O2 sats noted to be 80s, SBP 80s. Ceftriaxone, Decadron, and neb treatment administered at the ER. 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 Allergies Allergy/AdvReac Type Severity Reaction Status Date / Time No Known Allergies Allergy Verified 09/05/22 23:25 Home Medications Medication Instructions Recorded Confirmed Type atorvastatin 40 mg tablet 40 mg feeding tube QPM 09/18/18 10/03/22 History nitroglycerin 0.4 mg sublingual 0.4 mg sublingual UD PRN Chest Pain 09/18/18 History tablet albuterol sulfate 90 mcg/actuation 2 inh inhalation Q6H PRN shortness 05/06/20 10/03/22 Rx aerosol inhaler (ProAir HFA) of breath or wheezing #8.5 grams nutritional supplements 0.08 1 ea feeding tube QID 02/19/21 10/03/22 History gram-2 kcal/mL liquid for tube feed (Nutren 2.0) clotrimazole 1 % topical cream 1 applic topical BID 12/28/21 10/03/22 History water for irrigation, sterile 120 ml irrigation 5XD 03/07/22 10/03/22 History acetaminophen 325 mg tablet 650 mg PO DIRECTED PRN Pain 09/05/22 10/03/22 History (Tylenol) ipratropium 0.5 mg-albuterol 3 mg 3 ml inhalation Q6H PRN Shortness 09/05/22 10/03/22 History (2.5 mg base)/3 mL nebulization Of Breath soln Past Med/Surg History Medical History Acute hypoxemic respiratory failure Acute on chronic diastolic heart failure Acute renal insufficiency JULES (acute kidney injury) CAD (coronary artery disease) Cardiac murmur CHILD FROM RHEUMATIC FEVER CHF (congestive heart failure) Chronic pulmonary aspiration CKD (chronic kidney disease) stage 3, GFR 30-59 ml/min Elevated lactic acid level Former tobacco use Hearing deficit BILAT History of AL (myocardial infarction) 2016/ [facility] History of nasopharyngeal cancer s/p radiation, chemo- NO PORT ANYMORE CLEARED NOV 2013 History of rheumatic fever Hyperlipidemia Hypertension Left bundle branch block (LBBB) Palate abnormality prosthetic palate Pneumonia Radiation adverse effect Severe sepsis Shock Surgical History History of cardiac cath 2017 - [place] --> CABG - [facility]- follows w/ Dr. Milton- [facility]/ NO STENTS History of cataract surgery History of colonoscopy with polypectomy 09/25/2018. Propofol given, no issues. History of coronary artery bypass graft One vessel - 2016 - [facility] History of heart valve replacement Bioprosthetic aortic valve - [facility] 2016 History of shoulder surgery RIGHT History of tonsillectomy History of tooth extraction History of vascular access device NO LONGER HAS PORT Hx of aortic valve replacement Status post insertion of percutaneous endoscopic gastrostomy (PEG) tube PLACED DUE TO PALATE SURGERY- THEN REMOVED 2014 Family History Father Cancer Liver Cancer Social History Smoking Status: Never smoker Tobacco Type: Cigarettes Second Hand Exposure: No; Do You Dip or Chew Tobacco: No; Tobacco Cessation Education Requested by Patient: No Hx Alcohol Use: No Hx Substance Use: No Preferred Language: Ukrainian Communication Ability: Effective Communication Ability Comment: Has tablet Receivables Specialist Required: No Beliefs That Will Affect Care: None marital status: / Current Living Situation: Family Current Living Situation Comment: at home with son How many Children do You have: 1 Other Information That Helps Us Care for You: No Feels Safe at Home: Yes Safety Concerns: Feels Safe At This Time Assistive Devices: Cane and Other Review of Systems Review of Systems: As per HPI, all other systems reviewed and negative Physical Exam Physical Exam: GENERAL: Slightly uncomfortable, nasal speech, minimal respiratory distress SKIN: Pallor, warm HEENT: Pale palpebral conjunctivae, no ptosis, dry buccal mucosa, BiPAP in place NECK : Supple, no tenderness CHEST : Decreased breath sounds, no tenderness HEART : RRR, no obvious murmurs ABDOMEN: Some distention, PEG tube in place, nontender EXTREMITIES : No LE swelling/tenderness, no other conspicuous deformities noted NEUROLOGIC : Coherent, no facial asymmetry, mild hearing impairment, no other gross focality Results & Data Results & Data Vital Signs (Past 12 Hours) Vital Signs Temp Pulse Pulse Resp BP BP Pulse Ox 10/03/22 20:45 97 H 21 98 08/27/23 20:45 88/56 L 10/03/22 20:35 99 H 20 94 10/03/22 20:35 87/58 L 10/03/22 20:30 99 H 21 94 10/03/22 20:30 74/48 L 10/03/22 20:15 101 H 24 97 10/03/22 20:15 88/54 L 10/03/22 18:57 91 H 23 92 10/03/22 20:00 100 H 21 97 10/03/22 20:00 126/70 10/03/22 19:45 100 H 18 97 10/03/22 19:45 125/77 10/03/22 19:30 95 H 24 129/89 98 10/03/22 19:15 88 19 87/66 L 94 10/03/22 19:07 89 20 92 10/03/22 19:07 78/54 L 10/03/22 19:00 90 22 92 10/03/22 19:00 79/58 L 10/03/22 18:51 92 H 29 H 86 L 10/03/22 18:51 84/50 L 10/03/22 18:50 91 H 18 87 L 10/03/22 18:39 94 H 30 H 85 L 10/03/22 18:39 94 H 30 H 85/59 L 85 L 10/03/22 18:39 10/03/22 18:39 37.1 C 94 H 30 H 85/59 L 85 L 10/03/22 18:39 10/03/22 18:49 91 H O2 Del Method O2 Flow Rate FiO2 10/03/22 20:45 10/03/22 20:45 10/03/22 20:35 10/03/22 20:35 10/03/22 20:30 10/03/22 20:30 10/03/22 20:15 10/03/22 20:15 10/03/22 18:57 60 10/03/22 20:00 10/03/22 20:00 10/03/22 19:45 10/03/22 19:45 10/03/22 19:30 10/03/22 19:15 10/03/22 19:07 10/03/22 19:07 10/03/22 19:00 BiPAP 10/03/22 19:00 10/03/22 18:51 10/03/22 18:51 10/03/22 18:50 10/03/22 18:39 Non-rebreather 10/03/22 18:39 Non-rebreather 10/03/22 18:39 Non-rebreather 15 10/03/22 18:39 Nasal Cannula 15 10/03/22 18:39 Nasal Cannula 10/03/22 18:49 Laboratory Results Laboratory Results WBC 11.38 K/ul (4.8-10.8) H 10/03/22 18:54 RBC 4.44 M/uL (4.70-6.10) L 10/03/22 18:54 Hgb 13.8 g/dl (14.0-18.0) L 10/03/22 18:54 Hct 42.7 % (42.0-52.0) 10/03/22 18:54 MCV 96.2 fL (80.0-100.0) 10/03/22 18:54 MCH 31.1 pg (25.0-34.0) 10/03/22 18:54 MCHC 32.3 g/dL (32.0-36.0) 10/03/22 18:54 RDW Std Deviation 49.3 fL (36.4-46.3) H 10/03/22 18:54 RDW Coeff of Navid 14.2 % (11.5-14.5) 10/03/22 18:54 Plt Count 180 K/uL (130-400) 10/03/22 18:54 MPV 11.2 fL (9.4-12.4) 10/03/22 18:54 Immature Gran % (Auto) 0.4 % 10/03/22 18:54 Neut % (Auto) 86.1 % 10/03/22 18:54 Lymph % (Auto) 1.9 % 10/03/22 18:54 Dolores % (Auto) 11.2 % 10/03/22 18:54 Eos % (Auto) 0.0 % 10/03/22 18:54 Baso % (Auto) 0.4 % 10/03/22 18:54 Neut # (Auto) 9.81 K/uL (1.40-6.50) H 10/03/22 18:54 Lymph # (Auto) 0.22 K/uL (1.20-3.40) L 10/03/22 18:54 Dolores # (Auto) 1.27 K/uL (0.11-0.59) H 10/03/22 18:54 Eos # (Auto) 0.00 K/uL (0.00-0.50) 10/03/22 18:54 Baso # (Auto) 0.04 K/uL (0.00-0.20) 10/03/22 18:54 Immature Gran # (Auto) 0.04 K/uL (0.01-0.20) 10/03/22 18:54 PT 11.4 Seconds (9.0-12.0) 10/03/22 18:54 INR 1.0 (0.9-1.1) 10/03/22 18:54 VBG pH 7.38 (7.36-7.41) 10/03/22 19:07 VBG pCO2 66 mmHg (38-50) H 10/03/22 19:07 VBG pO2 30 mmHg 10/03/22 19:07 VBG HCO3 39 mmol/L 10/03/22 19:07 VBG O2 Saturation < 60.0 % 10/03/22 19:07 VBG Base Excess 11.1 mEq/L 10/03/22 19:07 Sodium 141 mmol/L (136-145) 10/03/22 18:54 Potassium 4.5 mmol/L (3.5-5.1) 10/03/22 18:54 Chloride 98 mmol/L (98-107) 10/03/22 18:54 Carbon Dioxide 36 mmol/L (21-32) H 10/03/22 18:54 Anion Gap 7 (3-11) 10/03/22 18:54 BUN 42 mg/dl (6-23) H 10/03/22 18:54 Creatinine 0.93 mg/dl (0.6-1.4) 10/03/22 18:54 Est Cr Clr Drug Dosing 53.0 ml/min 10/03/22 18:54 Est GFR ( Amer) 90.8 ml/min 10/03/22 18:54 Est GFR (Non-Af Amer) 78.4 ml/min 10/03/22 18:54 BUN/Creatinine Ratio 45.2 (10-20) H 10/03/22 18:54 Glucose 76 mg/dl (70-99(Fasting)) 10/03/22 18:54 Lactate 1.8 mmol/L (0.4-2.0) 10/03/22 19:20 Calcium 9.3 mg/dl (8.6-10.3) 10/03/22 18:54 Magnesium 2.1 mg/dl (1.7-2.4) 10/03/22 18:54 Total Bilirubin 0.6 mg/dl (0.2-1.0) 10/03/22 18:54 Direct Bilirubin 0.2 mg/dl (0-0.2) 10/03/22 18:54 AST 63 U/L (13-39) H 10/03/22 18:54 ALT 36 U/L (7-52) 10/03/22 18:54 Alkaline Phosphatase 105 U/L (34-104) H 10/03/22 18:54 Troponin I High Sens 16.0 pg/ml (0-20) 10/03/22 18:54 B-Natriuretic Peptide 127 pg/ml (0-100) H 10/03/22 19:20 Total Protein 7.6 gm/dl (6.0-8.3) 10/03/22 18:54 Albumin 3.5 gm/dl (3.4-5.0) 10/03/22 18:54 Procalcitonin 6.93 ng/ml (0-0.5) H 10/03/22 18:54 Adenovirus (PCR) Not Detected (NotDetected) 10/03/22 18:55 B. pertussis DNA (PCR) Not Detected (NotDetected) 10/03/22 18:55 B.parapertussis DNA PCR Not Detected (NotDetected) 10/03/22 18:55 C. pneumoniae DNA (PCR) Not Detected (NotDetected) 10/03/22 18:55 Coronavirus OC43 (PCR) Not Detected (NotDetected) 10/03/22 18:55 Coronavirus HKU1 (PCR) Not Detected (NotDetected) 10/03/22 18:55 Coronavirus 229E (PCR) Not Detected (NotDetected) 10/03/22 18:55 SARS-CoV-2 (PCR) Not Detected (NotDetected) 10/03/22 18:55 Coronavirus NL63 (PCR) Not Detected (NotDetected) 10/03/22 18:55 Human Metapneumovir PCR Not Detected (NotDetected) 10/03/22 18:55 Influenza Type A (PCR) Not Detected (NotDetected) 10/03/22 18:55 Influenza Type B (PCR) Not Detected (NotDetected) 10/03/22 18:55 M. pneumoniae (PCR) Not Detected (NotDetected) 10/03/22 18:55 Parainfluenza 1 (PCR) Not Detected (NotDetected) 10/03/22 18:55 Parainfluenza 2 (PCR) Not Detected (NotDetected) 10/03/22 18:55 Parainfluenza 3 (PCR) Not Detected (NotDetected) 10/03/22 18:55 Parainfluenza 4 (PCR) Not Detected (NotDetected) 10/03/22 18:55 RSV (PCR) Not Detected (NotDetected) 10/03/22 18:55 Entero/Rhino (PCR) Not Detected (NotDetected) 10/03/22 18:55 Impressions Chest X-Ray 10/03/22 18:39 XR chest 1V portable HISTORY: Sepsis COMPARISON: Chest 09/05/2022. FINDINGS: No pneumothorax. No pleural effusions. There are postoperative changes. The heart is normal in size. Reticulonodular interstitial thickening persists. This is most pronounced at the lung bases. Hazy appearance of the right medial lung base has slightly progressed. This may represent a developing pneumonitis.. No evidence for pulmonary edema. IMPRESSION: 1. Hazy appearance to the right medial lung base which has progressed. This may represent a developing pneumonitis. 2. Chronic reticulonodular interstitial thickening persists. ACT 112: Negative or not required by law. Electronically signed by: Ritesh Quevedo M.D. 10/03/2022 7:02 PM Diagnostic Findings EKG as per my interpretation : Rate 90, NSR, normal axis, no ischemia
[2022-10-03] MEDS ORDERED: PROMETHAZINE HCL 6.25 MG in SODIUM CHLORIDE 0.9% 50 ML IV PRN (22:05)
[2022-10-03] MEDS ORDERED: ACETAMINOPHEN SUSP 325 MG/10.15 ML UDC PEG PRN (22:05)
[2022-10-04] MEDS ORDERED: XOPENEX/ATROVENT 1.25mg/0.5MG NEB COMBO NEB SCH (01:00)
[2022-10-04] MEDS: LEVALBUTEROL 1.25 MG/3 ML NEB NEB SCH ×4 (01:15→19:56)
[2022-10-04] MEDS: IPRATROPIUM BROMIDE NEB SOLN 0.02% 2.5 ML VIAL INH SCH ×4 (01:16→19:55)
[2022-10-04 01:39] LABS: Appearance Urine Clear (Clear); Bacteria Urine Automated Negative (Negative); Bilirubin Urine Negative (Negative); Blood Urine Negative (Negative); Cast Urine Automated 0 /lpf (0-5); Color Urine Yellow; Glucose Urine UA Negative (Negative); Ketones Urine Trace (Negative); Leukocyte Esterase Urine Negative (Negative); Nitrite Urine Negative (Negative); Protein Urine 1+ (Negative); RBC Urine Automated 0-4 /hpf (0-4); Specific Gravity Urine 1.023 (1.000-1.030); Urobilinogen Urine Negative (Negative)
[2022-10-04 02:14] LABS: Basophils # (auto) 0.03 K/uL (0.00-0.20); Basophils % (auto) 0.2 %; Immature Granulocytes # (auto) 0.04 K/uL (0.01-0.20); Immature Granulocytes % (auto) 0.3 %; Lymphocytes # (auto) 0.28 K/uL (1.20-3.40); Lymphocytes % (auto) 2.1 %; Monocytes # (auto) 0.42 K/uL (0.11-0.59); Monocytes % (auto) 3.1 %; Neutrophils # (auto) 12.85 K/uL (1.40-6.50); Neutrophils % (auto) 94.3 %; RBC Morphology Unremarkable
[2022-10-04 02:15] LABS: BUN Creatinine Ratio 43.5 (10-20); Calcium 8.3 mg/dl (8.6-10.3); Creatinine Clr Calc Pharmacy 57.9 ml/min; Est GFR (African American) 96.7 ml/min; Est GFR (Non-African American) 83.5 ml/min; Hematocrit (blood only) 34.5 % (42.0-52.0); Hemoglobin 11.2 g/dl (14.0-18.0); Mean Corpuscular Hemoglobin 31.5 pg (25.0-34.0); Mean Corpuscular Hgb Conc 32.5 g/dL (32.0-36.0); Mean Corpuscular Volume 97.2 fL (80.0-100.0); Platelet Count 147 K/uL (130-400); Potassium 4.2 mmol/L (3.5-5.1); RDW Coefficient of Variation 14.1 % (11.5-14.5); RDW Standard Deviation 50.4 fL (36.4-46.3); Red Blood Count 3.55 M/uL (4.70-6.10); White Blood Count 13.62 K/ul (4.8-10.8)
[2022-10-04] MEDS: DOXYCYCLINE HYCLATE 100 MG in DEXTROSE 5% 100 ML IV SCH ×2 (02:40→14:34)
[2022-10-04] MEDS: AMPICILLIN/SULBACTAM SOD 3,000 MG in 0.9 % SODIUM CHLORIDE 100 ML IV SCH ×3 (05:41→17:07)
[2022-10-04] MEDS: methylPREDNISolone 40 MG in SYRINGE 0 ML IV SCH (07:49)
[2022-10-04] MEDS ORDERED: ENOXAPARIN INJ 30 MG/0.3 ML SYR SQ SCH (09:00)
[2022-10-04] MEDS ORDERED: NUTREN LIQD 2.0 1,000 ML BAG GT SCH (12:00)
[2022-10-04] MEDS: TUBE FEEDING WATER FLUSH GT SCH ×4 (12:05→23:22)
--- NOTE | 2022-10-04 13:45 | Hospitalist Progress Note ---
Date of Service October 04, 2022 Assessment & Plan (1) Pneumonia: Plan 76-year-old male with PMH of chronic respiratory failure on 2 L nasal cannula oxygen at home, chronic diastolic heart failure [EF 50 to 55%, TTE 2020], chronic LBBB, CAD status post CABG, status post bioprosthetic AVR, COPD, chronic pulmonary aspiration status post PEG tube placement, HTN, HLD, nasopharyngeal cancer status post chemoradiation, chronic anemia [baseline hemoglobin 12], past tobacco abuse presented to our ED 10/03 with complaint of increasing cough symptoms and worsening 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 O2 sats noted to be in 80s by EMS on simple face mask. He is being managed for the following: Sepsis POA:Resp rate, pulse rate elevated at admission on the background of likely aspiration pneumonia. Lactate wnl. Procalcitonin elevated at presentation. Likely aspiration pneumonia:Has history of nasopharyngeal cancer status post chemoradiation, chronic pulmonary aspiration status post PEG tube placement, does not take anything by mouth. Acute on chronic respiratory failure:Uses 2 L oxygen at home, needed high flow oxygen at presentation/was in resp distress. Patient presented with shortness of breath and increased cough. Admitting CXR: 1. Hazy appearance to the right medial lung base which has progressed. This may represent a developing pneumonitis. 2. Chronic reticulonodular interstitial thickening persists. Patient started on Unasyn and doxycycline, continue with same. Follow admitting blood and sputum culture. Admitting MRSA and respiratory BioFire negative. Patient reports feeling better, has been afebrile, respiratory rate and pulse rate improving Continue with aspiration precaution, patient on PEG tube feeding. Wean down oxygen as tolerated. Pulmonary consult if without improvement Likely COPD exacerbation:Patient decreased breath sounds and occasional rhonchi on exam, likely secondary to aspiration pneumonia, patient on antibiotic, continue with Solu-Medrol. Continue with nebs RTC. CKD stage III: Creatinine at baseline, continue to monitor. Other chronic medical conditions:Chronic diastolic heart failure, chronic LBBB, CAD status post CABG, ASD status post bioprosthetic AVR, HLD on statin, nasopharyngeal cancer status post chemoradiation/in remission, chronic anemia, past tobacco abuse Continue with/resume home meds as and when able. DVT prophylaxis:SCDs, history of severe epistaxis. DNR/DNI Dispo: Pending O2 improvement. Pending pall consult. Patient's son Mr. Anthony Dodson, contact #[phone]. Admission and Anticipated Discharge Date Admission Date: October 03, 2022 Subjective Patient seen and examined at bedside as a follow-up of acute hypoxemic respiratory failure, likely recurrent COPD exacerbation, Possible recurrent aspiration pneumonia. Patient was lying in bed, on 10 L oxygen via oxygen mask, NAD, working on his iPad, reports feeling better today, denies any fever/headache/chest pain. Peg tube feed will be resumed. Patient does not take anything by mouth. Physical Exam Physical Exam: GENERAL: Alert and oriented x3. NAD, on 10L O2 via Oxymask. Nasal speech. HEENT: No pallor, no icterus. Pupils equal, round and reactive to light. Oral mucosa moist. Palatal defect +. NECK: No JVD, no neck masses. HEART: S1 and S2 heard. Regular rate and rhythm. No murmur, no gallop. RESPIRATORY SYSTEM: Normal AP diameter. No accessory muscle use. + rhonci, decreased breath sounds, b/l crackles (r>l). ABDOMEN: Soft, bowel sounds present, nontender, no distention. CENTRAL NERVOUS SYSTEM: No facial droop. Speech is clear. Obeys simple commands. Moves extremities. EXTREMITIES: No edema, no erythema seen. Results & Data Results & Data Vital Signs (Past 12 Hours) Vital Signs Temp Pulse Pulse Resp BP BP Pulse Ox 10/04/22 13:10 81 18 97 10/04/22 11:00 36.8 C 79 18 139/87 98 10/04/22 08:00 80 10/04/22 08:00 10/04/22 08:03 36.9 C 88 20 122/79 97 10/04/22 07:42 71 18 91 10/04/22 05:27 36.3 C L 80 20 149/91 H 92 10/04/22 05:26 77 10/04/22 05:04 10/04/22 04:15 76 18 100 10/04/22 04:00 73 17 98 10/04/22 04:00 111/67 10/04/22 03:45 75 21 92 10/04/22 03:30 79 23 98 10/04/22 03:30 132/75 10/04/22 03:15 80 15 78 L 10/04/22 03:00 78 15 99 0828/23 03:00 122/68 10/04/22 02:45 77 20 98 10/04/22 02:30 77 18 99 10/04/22 02:30 119/66 10/04/22 02:15 75 13 94 10/04/22 02:15 107/71 10/04/22 02:00 77 18 92 10/04/22 02:00 95/55 L 10/04/22 01:45 75 19 92 10/04/22 01:45 83/49 L 10/04/22 02:15 10/04/22 02:15 36.5 C 78 24 119/66 99 O2 Del Method O2 Flow Rate 10/04/22 13:10 Oxymask 10 10/04/22 11:00 Oxymask 10 10/04/22 08:00 10/04/22 08:00 Oxymask 5 10/04/22 08:03 Oxymask 2 10/04/22 07:42 Oxymask 10 10/04/22 05:27 Oxymask 10/04/22 05:26 10/04/22 05:04 Oxymask 10 10/04/22 04:15 10/04/22 04:00 10/04/22 04:00 10/04/22 03:45 10/04/22 03:30 10/04/22 03:30 10/04/22 03:15 10/04/22 03:00 10/04/22 03:00 10/04/22 02:45 10/04/22 02:30 10/04/22 02:30 10/04/22 02:15 10/04/22 02:15 10/04/22 02:00 10/04/22 02:00 10/04/22 01:45 10/04/22 01:45 10/04/22 02:15 Oxymask 10 10/04/22 02:15 Oxymask 10
--- NOTE | 2022-10-04 21:53 | Electrocardiogram Report ---
Test Reason : Blood Pressure : / mmHG Vent. Rate : 088 BPM Atrial Rate : 088 BPM P-R Int : 160 ms QRS Dur : 076 ms QT Int : 362 ms P-R-T Axes : 064 065 072 degrees QTc Int : 438 ms Sinus rhythm with Premature atrial complexes Low voltage QRS Borderline ECG When compared with ECG of 05-SEP-2022 22:21, Premature atrial complexes are now Present Confirmed by Rahul Miller ([id number]) on 10/04/2022 9:53:22 PM Referred By: REFERRED SELF Confirmed By:Rahul Miller
[2022-10-04] MEDS: ATORVASTATIN 40 MG TAB PEG SCH (22:39)
[2022-10-05] MEDS: AMPICILLIN/SULBACTAM SOD 3,000 MG in 0.9 % SODIUM CHLORIDE 100 ML IV SCH ×4 (00:03→18:48)
[2022-10-05] MEDS: LEVALBUTEROL 1.25 MG/3 ML NEB NEB SCH ×4 (00:47→19:26)
[2022-10-05] MEDS: IPRATROPIUM BROMIDE NEB SOLN 0.02% 2.5 ML VIAL INH SCH ×4 (00:47→19:26)
[2022-10-05] MEDS: DOXYCYCLINE HYCLATE 100 MG in DEXTROSE 5% 100 ML IV SCH ×2 (01:29→15:18)
[2022-10-05] MEDS: TUBE FEEDING WATER FLUSH GT SCH ×5 (03:43→20:16)
[2022-10-05 06:50] LABS: Hematocrit (blood only) 35.4 % (42.0-52.0); Hemoglobin 11.7 g/dl (14.0-18.0); Mean Corpuscular Hemoglobin 30.8 pg (25.0-34.0); Mean Corpuscular Hgb Conc 33.1 g/dL (32.0-36.0); Mean Corpuscular Volume 93.2 fL (80.0-100.0); Mean Platelet Volume 10.8 fL (9.4-12.4); Platelet Count 145 K/uL (130-400); RDW Coefficient of Variation 14.1 % (11.5-14.5); RDW Standard Deviation 48.2 fL (36.4-46.3); White Blood Count 19.13 K/ul (4.8-10.8)
[2022-10-05 07:09] LABS: Calcium 8.7 mg/dl (8.6-10.3); Creatinine Clr Calc Pharmacy 81.2 ml/min; Est GFR (African American) 111.6 ml/min; Est GFR (Non-African American) 96.3 ml/min; Phosphorus 2.1 mg/dl (2.5-4.9); Potassium 4.1 mmol/L (3.5-5.1)
[2022-10-05] MEDS ORDERED: SODIUM PHOSPHATE 3 MMOL/1 ML INFUSION IV STA (07:59)
[2022-10-05] MEDS ORDERED: SODIUM PHOSPHATE 12 MMOL in SODIUM CHLORIDE 0.9% 250 ML IV ONE (08:30)
[2022-10-05] MEDS: methylPREDNISolone 40 MG in SYRINGE 0 ML IV SCH (10:11)
--- NOTE | 2022-10-05 12:43 | Palliative Care Consultation ---
Date of Consultation October 05, 2022 Assessment & Plan (1) Palliative care encounter: I talked with Mr. Dodson about what is important to him and what defines quality of life for him. He is very much looking forward to moving into a new house in [place] with his son Anthony, and his significant other. He tells me that this is the place that he wants to be until his dying time. He talks about his 's which was in a halfway after a very prolonged illness. He says that he would not want to like that and would not want to put his son through something like that. His hope is that he will have a sudden heart attack or in his sleep. On the other hand, when I asked him what is most important to him, his response was "living". He is able to enjoy time with friends, sit outside and enjoy nature and work on his art projects. These are the things that make life worth living for him. I asked him how he would feel if he weren't able to do those things and he still told me that he would want to be alive. He has specified that he would not want CPR or intubation, but short of that, he does not feel there is anything that he would not want to go through to prolong his life. His son, Anthony, is his POA and they have discussed this. He is confident that Anthony will make the decisions that Mr. Dodson would want. When I spoke with Anthony, he confirmed this. We reviewed the conversation I had with his father and he felt that is consistent with what he has said previously. We discussed concern that recurrent aspiration, along with his other conditions, may lead to repeated hospitalizations. Both Mr. Dodson and Anthony feel that if he is more careful, the risk of aspiration will be less. He tells me that he is careful about spitting out his oral secretions and monitoring his tube feedings and is hopeful that this will not be a recurrent problem. He is not opposed to hospitalization in the future if necessary. History of Present Illness Reason for Consultation: goals of care Requesting Physician: Dr. Rodriguez Attending Physician: Karin Curry MD History of Present Illness 77 yo gentleman with history of diastolic heart failure, CAD and COPD and chronic respiratory failure who presents with acute on chronic on chronic hypoxic respiratory failure. He has a history of nasopharyngeal cancer with PEG tube placement and has chronic aspiration. This is his third hospitalization in four months. He was hypotensive on admission, with elevated procalcitonin and is being treated for sepsis secondary to aspiration pneumonia as well as COPD exacerbation. Chest xray indicates developing pneumonitis in right lobe. He has improved with treatment and is now on 2L O2. He denies dyspnea or discomfort. He is awake and alert. Allergies Allergy/AdvReac Type Severity Reaction Status Date / Time No Known Allergies Allergy Verified 09/05/22 23:25 Home Medications Medication Instructions Recorded Confirmed Type atorvastatin 40 mg tablet 40 mg feeding tube QPM 09/18/18 10/03/22 History nitroglycerin 0.4 mg sublingual 0.4 mg sublingual UD PRN Chest Pain 09/18/18 10/03/22 History tablet albuterol sulfate 90 mcg/actuation 2 inh inhalation Q6H PRN shortness 05/06/20 10/03/22 Rx aerosol inhaler (ProAir HFA) of breath or wheezing #8.5 grams nutritional supplements 0.08 1 ea feeding tube QID 02/19/21 10/03/22 History gram-2 kcal/mL liquid for tube feed (Nutren 2.0) clotrimazole 1 % topical cream 1 applic topical BID 12/28/21 10/03/22 History water for irrigation, sterile 120 ml irrigation 5XD 03/07/22 10/03/22 History acetaminophen 325 mg tablet 650 mg PO DIRECTED PRN Pain 09/05/22 10/03/22 History (Tylenol) ipratropium 0.5 mg-albuterol 3 mg 3 ml inhalation Q6H PRN Shortness 09/05/22 10/03/22 History (2.5 mg base)/3 mL nebulization Of Breath soln Patient History Medical History Acute hypoxemic respiratory failure Acute on chronic diastolic heart failure Acute renal insufficiency JULES (acute kidney injury) CAD (coronary artery disease) Cardiac murmur CHILD FROM RHEUMATIC FEVER CHF (congestive heart failure) Chronic pulmonary aspiration CKD (chronic kidney disease) stage 3, GFR 30-59 ml/min Elevated lactic acid level Former tobacco use Hearing deficit BILAT History of [place] (myocardial infarction) 2016/ [facility] History of nasopharyngeal cancer s/p radiation, 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 Milton- [facility]/ NO STENTS History of cataract surgery History of colonoscopy with polypectomy 09/25/2018. Propofol given, no issues. History of coronary artery bypass graft One vessel - 2016 - [facility] History of heart valve replacement Bioprosthetic aortic valve - 2016 History of shoulder surgery RIGHT History of tonsillectomy History of tooth extraction History of vascular access device NO LONGER HAS PORT Hx of aortic valve replacement Status post insertion of percutaneous endoscopic gastrostomy (PEG) tube PLACED DUE TO PALATE SURGERY- THEN REMOVED 2014 Family History Father Cancer Liver Cancer Social History Smoking Status: Never smoker Tobacco Type: Cigarettes Second Hand Exposure: No; Do You Dip or Chew Tobacco: No; Tobacco Cessation Education Requested by Patient: No Hx Alcohol Use: No Hx Substance Use: No Preferred Language: Japanese Communication Ability: Effective Communication Ability Comment: Has tablet Starch Treating Assistant Required: No Beliefs That Will Affect Care: None marital status: / Current Living Situation: Family Current Living Situation Comment: at home with son How many Children do You have: 1 Other Information That Helps Us Care for You: No Feels Safe at Home: Yes Safety Concerns: Feels Safe At This Time Assistive Devices: Cane and Other Review of Systems Review of Systems: ESAS Pain 0/3 Dyspnea 0/3 Nausea 0/3 Anxiety 0/3 Drowsiness 0/3 Physical Exam Constitutional: no acute distress Respiratory: normal respiratory effort; no labored breathing Cardiovascular: Rate/Rhythm: regular rate and regular rhythm Musculoskeletal: Extremities: + muscle atrophy Neurologic: Speech / Cognition: normal cognition Results & Data Vital Signs (Past 12 Hours) Vital Signs Temp Pulse Pulse Resp BP Pulse Ox O2 Del Method 10/05/22 11:00 98.2 F 86 18 134/71 97 Room Air 10/05/22 07:00 97.9 F 88 18 131/65 96 Room Air 10/05/22 07:14 76 20 97 Oxymask 10/05/22 03:00 97.7 F 84 20 126/69 92 Oxymask 10/05/22 00:49 76 18 98 Oxymask 10/05/22 00:47 82 O2 Flow Rate 10/05/22 11:00 10/05/22 07:00 10/05/22 07:14 2 10/05/22 03:00 10/05/22 00:49 2 10/05/22 00:47 PG Care Time/CCT Total # of Minutes Spent Total Time Spent: 65 Total Time Spent with Patient: Total time spent is greater than 50% in coordination of care (as documented) at patient's floor/unit and/or counseling patient: goals of care, surrogate decision maker, patient and family education and support Coding Level of Care Code 26452 INT INP/OBS CARE 2/55MIN Diagnoses Palliative care encounter Z51.5
--- NOTE | 2022-10-05 14:35 | Hospitalist Progress Note ---
Date of Service October 05, 2022 Assessment & Plan (1) Pneumonia: Plan 76-year-old male with PMH of chronic respiratory failure on 2 L nasal cannula oxygen at home, chronic diastolic heart failure [EF 50 to 55%, TTE 2020], chronic LBBB, CAD status post CABG, status post bioprosthetic AVR, COPD, chronic pulmonary aspiration status post PEG tube placement, HTN, HLD, nasopharyngeal cancer status post chemoradiation, chronic anemia [baseline hemoglobin 12], past tobacco abuse presented to our ED 10/03 with complaint of increasing cough symptoms and worsening 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 O2 sats noted to be in 80s by EMS on simple face mask. He is being managed for the following: Sepsis POA:Resp rate, pulse rate elevated at admission on the background of likely aspiration pneumonia. Lactate wnl. Procalcitonin elevated at presentation. Likely aspiration pneumonia:Has history of nasopharyngeal cancer status post chemoradiation, chronic pulmonary aspiration status post PEG tube placement, does not take anything by mouth. Acute on chronic respiratory failure:Uses 2 L oxygen at home, needed high flow oxygen at presentation/was in resp distress. Patient presented with shortness of breath and increased cough. Admitting CXR: 1. Hazy appearance to the right medial lung base which has progressed. This may represent a developing pneumonitis. 2. Chronic reticulonodular interstitial thickening persists. Patient started on Unasyn and doxycycline, continue with same. Follow admitting blood and sputum culture - GNB, follow final. To oral atb cindy. Admitting MRSA and respiratory BioFire negative. Patient reports feeling better, has been afebrile,vitals and O2 req improving Continue with aspiration precaution, patient on PEG tube feeding. Wean down oxygen as tolerated. Likely COPD exacerbation:Patient decreased breath sounds and occasional rhonchi on exam, likely secondary to aspiration pneumonia, patient on antibiotic, continue with Solu-Medrol - to prednisone cindy. Continue with nebs RTC. CKD stage III:Creatinine at baseline, continue to monitor. Other chronic medical conditions:Chronic diastolic heart failure, chronic LBBB, CAD status post CABG, ASD status post bioprosthetic AVR, HLD on statin, nasopharyngeal cancer status post chemoradiation/in remission, chronic anemia, past tobacco abuse Continue with/resume home meds as and when able. DVT prophylaxis:SCDs, history of severe epistaxis. DNR/DNI Dispo:likely dc cindy on oral atb and oral steroid. f/u final resp cx. Patient's son Mr. Anthony Dodson, contact #[phone]. Admission and Anticipated Discharge Date Admission Date: October 03, 2022 Subjective Patient seen and examined at bedside as a follow-up of acute hypoxemic respiratory failure, likely recurrent COPD exacerbation, Possible recurrent aspiration pneumonia. Patient was lying in bed, on 2 L oxygen via oxygen mask, NAD, reports feeling better, denies any fever/headache/chest pain. Peg tube feed +. Patient does not take anything by mouth. Physical Exam Physical Exam: GENERAL: Alert and oriented x3. NAD, on 2L O2 via Oxymask. Nasal speech. HEENT: No pallor, no icterus. Pupils equal, round and reactive to light. Oral mucosa moist. Palatal defect +. NECK: No JVD, no neck masses. HEART: S1 and S2 heard. Regular rate and rhythm. No murmur, no gallop. RESPIRATORY SYSTEM: Normal AP diameter. No accessory muscle use. no rhonci, decreased breath sounds, b/l crackles (r>l). ABDOMEN: Soft, bowel sounds present, nontender, no distention. CENTRAL NERVOUS SYSTEM: No facial droop. Speech is clear. Obeys simple commands. Moves extremities. EXTREMITIES: No edema, no erythema seen. Results & Data Results & Data Vital Signs (Past 12 Hours) Vital Signs Temp Pulse Resp BP Pulse Ox O2 Del Method O2 Flow Rate 10/05/22 13:38 72 20 94 Oxymask 2 10/05/22 11:00 36.8 C 86 18 134/71 97 Room Air 10/05/22 07:00 36.6 C 88 18 131/65 96 Room Air 10/05/22 07:14 76 20 97 Oxymask 2 10/05/22 03:00 36.5 C 84 20 126/69 92 Oxymask (1) Pneumonia Laterality: left Lung location: upper lobe of lung Pneumonia type: due to unspecified organism Qualified Code(s): J18.9 - Pneumonia, unspecified organism
[2022-10-05] MEDS: ATORVASTATIN 40 MG TAB PEG SCH (20:16)
[2022-10-06] MEDS: AMPICILLIN/SULBACTAM SOD 3,000 MG in 0.9 % SODIUM CHLORIDE 100 ML IV SCH ×2 (00:18→05:47)
[2022-10-06] MEDS: TUBE FEEDING WATER FLUSH GT SCH ×5 (00:19→17:55)
[2022-10-06] MEDS: DOXYCYCLINE HYCLATE 100 MG in DEXTROSE 5% 100 ML IV SCH (01:11)
[2022-10-06] MEDS: LEVALBUTEROL 1.25 MG/3 ML NEB NEB SCH ×4 (01:22→19:55)
[2022-10-06] MEDS: IPRATROPIUM BROMIDE NEB SOLN 0.02% 2.5 ML VIAL INH SCH ×4 (01:22→20:05)
[2022-10-06] MEDS: methylPREDNISolone 40 MG in SYRINGE 0 ML IV SCH (08:34)
[2022-10-06 09:40] LABS: Hematocrit (blood only) 41.4 % (42.0-52.0); Hemoglobin 13.9 g/dl (14.0-18.0); Mean Corpuscular Hemoglobin 31.2 pg (25.0-34.0); Mean Corpuscular Hgb Conc 33.6 g/dL (32.0-36.0); Mean Platelet Volume 10.7 fL (9.4-12.4); Platelet Count 158 K/uL (130-400); RDW Coefficient of Variation 13.9 % (11.5-14.5); RDW Standard Deviation 46.7 fL (36.4-46.3); Red Blood Count 4.45 M/uL (4.70-6.10)
[2022-10-06 10:03] LABS: BUN Creatinine Ratio 38.9 (10-20); Calcium 8.8 mg/dl (8.6-10.3); Creatinine Clr Calc Pharmacy 89.3 ml/min; Est GFR (African American) 116.6 ml/min; Est GFR (Non-African American) 100.6 ml/min; Magnesium 1.8 mg/dl (1.7-2.4); Phosphorus 2.1 mg/dl (2.5-4.9); Potassium 3.5 mmol/L (3.5-5.1)
[2022-10-06] MEDS ORDERED: POTASSIUM PHOS 3 MMOL/1 ML INFUSION IV STA (11:14)
[2022-10-06] MEDS ORDERED: POTASSIUM PHOSPHATE 21 MMOL in SODIUM CHLORIDE 0.9% 500 ML IV ONE (11:30)
[2022-10-06] MEDS: levoFLOXacin 750 MG TAB PO SCH (11:34)
--- NOTE | 2022-10-06 13:11 | Hospitalist Progress Note ---
Date of Service October 06, 2022 Assessment & Plan (1) Pneumonia: Plan 76-year-old male with PMH of chronic respiratory failure on 2 L nasal cannula oxygen at home, chronic diastolic heart failure [EF 50 to 55%, TTE 2020], chronic LBBB, CAD status post CABG, status post bioprosthetic AVR, COPD, chronic pulmonary aspiration status post PEG tube placement, HTN, HLD, nasopharyngeal cancer status post chemoradiation, chronic anemia [baseline hemoglobin 12], past tobacco abuse presented to our ED 10/03 with complaint of increasing cough symptoms and worsening 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 O2 sats noted to be in 80s by EMS on simple face mask. He is being managed for the following: Sepsis POA: Likely aspiration pneumonia: Acute on chronic respiratory failure: Resp rate, pulse rate elevated at admission on the background of likely aspiration pneumonia. Lactate wnl. Procalcitonin elevated at presentation. Has history of nasopharyngeal cancer status post chemoradiation, chronic pulmonary aspiration status post PEG tube placement Strict NPO Uses 2 L oxygen at home He needed high flow oxygen at presentation/was in resp distress. CXR noted hazy appearance to Right medial lung base which has progressed Admitting MRSA and respiratory BioFire negative Sputum culture growing pseudomonas Has been on Unasyn and doxycycline Still has leukocytosis Antibiotic changed to levofloxacin Continue with aspiration precaution Continue nasal oxygen Likely COPD exacerbation: Continue steroid and nebs Improved CKD stage III: Creatinine at baseline Replete hypophosphatemia Other chronic medical conditions:Chronic diastolic heart failure, chronic LBBB, CAD status post CABG, ASD status post bioprosthetic AVR, HLD on statin, nasoph aryngeal cancer status post chemoradiation/in remission, chronic anemia, past tobacco abuse DVT prophylaxis:SCDs, history of severe epistaxis. DNR/DNI Dispo:Plan dc tomorrow Patient's son Mr. Anthony Dodson, contact #[phone]. I spent a total of 40 minutes coordinating, documenting and providing care for this patient excluding time spent in performance of separately billed services Admission and Anticipated Discharge Date Admission Date: October 03, 2022 Subjective Patient seen and examined Reports cough Denied chest pain/SOB Denied fever, chills, nausea, abd pain, diarrhea, dysuria, freq Physical Exam Constitutional: + well hydrated; no acute distress Eyes: PERRL, conjunctivae normal, anicteric sclerae ENMT: +Hoarse voice Respiratory: On nasal cannula 2L/min, diminished breath sounds Cardiovascular: Rate/Rhythm: regular rate and regular rhythm S1 S2 Gastrointestinal (Abdomen): normal bowel sounds, soft, nontender, no hepatosplenomegaly Musculoskeletal: No pedal edema Neurologic: PERRL, EOMI, accommodation nl, no face palsy, no dysarthria Psychiatric: A+Ox3, euthymic affect Results & Data Results & Data Vital Signs (Past 12 Hours) Vital Signs Temp Pulse Pulse Pulse Resp BP Pulse Ox 10/06/22 11:25 36.6 C 71 12 118/76 94 10/06/22 07:40 36.6 C 73 16 165/74 H 93 10/06/22 07:17 69 20 91 10/06/22 07:08 80 10/06/22 02:02 73 10/06/22 01:22 72 18 86 L O2 Del Method O2 Flow Rate 10/06/22 11:25 Oxymask 2 10/06/22 07:40 Oxymask 2 10/06/22 07:17 Oxymask 3 10/06/22 07:08 10/06/22 02:02 10/06/22 01:22 Room Air Laboratory Results Abnormal lab results 10/06/22 10/06/22 Range/Units 08:55 08:55 WBC 16.20 H (4.8-10.8) K/ul RBC 4.45 L (4.70-6.10) M/uL Hgb 13.9 L (14.0-18.0) g/dl Hct 41.4 L (42.0-52.0) % RDW Std Deviation 46.7 H (36.4-46.3) fL Creatinine 0.54 L (0.6-1.4) mg/dl BUN/Creatinine Ratio 38.9 H (10-20) Phosphorus 2.1 L (2.5-4.9) mg/dl (1) Pneumonia Laterality: left Lung location: upper lobe of lung Pneumonia type: due to unspecified organism Qualified Code(s): J18.9 - Pneumonia, unspecified organism
[2022-10-06] MEDS: NUTREN LIQD 2.0 1,000 ML BAG GT SCH (15:53)
[2022-10-06] MEDS: ATORVASTATIN 40 MG TAB PEG SCH (20:19)
[2022-10-07] MEDS: IPRATROPIUM BROMIDE NEB SOLN 0.02% 2.5 ML VIAL INH SCH ×3 (01:39→13:39)
[2022-10-07] MEDS: LEVALBUTEROL 1.25 MG/3 ML NEB NEB SCH ×3 (01:39→13:39)
[2022-10-07 07:57] LABS: Hematocrit (blood only) 40.6 % (42.0-52.0); Hemoglobin 13.5 g/dl (14.0-18.0); Mean Corpuscular Hemoglobin 30.5 pg (25.0-34.0); Mean Corpuscular Hgb Conc 33.3 g/dL (32.0-36.0); Mean Corpuscular Volume 91.6 fL (80.0-100.0); Mean Platelet Volume 10.8 fL (9.4-12.4); Platelet Count 160 K/uL (130-400); RDW Coefficient of Variation 13.7 % (11.5-14.5); RDW Standard Deviation 46.8 fL (36.4-46.3); Red Blood Count 4.43 M/uL (4.70-6.10)
[2022-10-07 08:32] LABS: Calcium 8.6 mg/dl (8.6-10.3); Magnesium 1.8 mg/dl (1.7-2.4); Potassium 3.9 mmol/L (3.5-5.1)
[2022-10-07 08:38] LABS: BUN Creatinine Ratio 35.7 (10-20); Creatinine Clr Calc Pharmacy 68.2 ml/min; Est GFR (African American) 104.8 ml/min; Est GFR (Non-African American) 90.4 ml/min; Phosphorus 2.8 mg/dl (2.5-4.9)
[2022-10-07] MEDS: methylPREDNISolone 40 MG in SYRINGE 0 ML IV SCH (09:39)
[2022-10-07] MEDS: TUBE FEEDING WATER FLUSH GT SCH ×2 (09:42→12:45)
[2022-10-07] MEDS: NUTREN LIQD 2.0 1,000 ML BAG GT SCH (09:49)
--- NOTE | 2022-10-07 12:15 | Discharge Summary ---
Date of Service October 07, 2022 Admission HPI Per Admitting Provider History obtained from patient and records. History somewhat difficult to obtain from patient due to BiPAP. Medical history significant for chronic respiratory failure occasional supplemental home O2 use, chronic diastolic heart failure (EF 50 to 55%, TTE 2020) , chronic LBBB, CAD status post CABG, status post bioprosthetic AVR, COPD as per records, chronic pulmonary aspiration status post PEG tube placement, hypertension, hyperlipidemia, nasopharyngeal cancer status post chemoradiation, chronic anemia (baseline hemoglobin of 12 ), hx severe epistaxis status post sphenopalatine artery embolization, past tobacco abuse. Four admissions at [facility] this year for COPD exacerbation. Last night, patient noted worsening junky cough symptoms along with worsening 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 Patient denies chest pain. Patient completed COVID-19 vaccination. Not sure about sick contacts. No recent john aspiration episode. O2 sats noted to be 80s by EMS on simple facemask. At the ER, O2 sats noted to be 80s, SBP 80s. Ceftriaxone, Decadron, and neb treatment administered at the ER. 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 Admission Exam Per Admitting Provider GENERAL: Slightly uncomfortable, nasal speech, minimal respiratory distress SKIN: Pallor, warm HEENT: Pale palpebral conjunctivae, no ptosis, dry buccal mucosa, BiPAP in place NECK : Supple, no tenderness CHEST : Decreased breath sounds, no tenderness HEART : RRR, no obvious murmurs ABDOMEN: Some distention, PEG tube in place, nontender EXTREMITIES : No LE swelling/tenderness, no other conspicuous deformities noted NEUROLOGIC : Coherent, no facial asymmetry, mild hearing impairment, no other gross focality Principal Diagnosis Sepsis Pneumonia Discharge Exam Constitutional + well hydrated; no acute distress Eyes PERRL, conjunctivae normal, anicteric sclerae ENMT On nasal cannula Respiratory normal respiratory effort; no respiratory distress Diminished breaths sounds Cardiovascular Rate/Rhythm: regular rate and regular rhythm S1 S2 Gastrointestinal (Abdomen) normal bowel sounds, soft, nontender, no hepatosplenomegaly Musculoskeletal No pedal edema Neurologic PERRL, EOMI, accommodation nl, no face palsy, no dysarthria Psychiatric A+Ox3, euthymic affect Discharge Data Allergies Allergy/AdvReac Type Severity Reaction Status Date / Time No Known Allergies Allergy Verified 09/05/22 23:25 Consultations 10/03/22 20:03 ED Decision to Admit Stat 10/03/22 22:05 Consult Palliative Care Routine Hospital Course (1) Pneumonia: Plan 76-year-old male with PMH of chronic respiratory failure on 2 L nasal cannula oxygen at home, chronic diastolic heart failure [EF 50 to 55%, TTE 2020], chronic LBBB, CAD status post CABG, status post bioprosthetic AVR, COPD, chronic pulmonary aspiration status post PEG tube placement, HTN, HLD, nasopharyngeal cancer status post chemoradiation, chronic anemia [baseline hemoglobin 12], past tobacco abuse presented to our ED 10/03 with complaint of increasing cough symptoms and worsening 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 O2 sats noted to be in 80s by EMS on simple face mask. He is being managed for the following: Sepsis POA: Likely aspiration pneumonia: Acute on chronic respiratory failure: Resp rate, pulse rate elevated at admission on the background of likely aspiration pneumonia. Lactate wnl. Procalcitonin elevated at presentation at 6.93. Has history of nasopharyngeal cancer status post chemoradiation, chronic pulmonary aspiration status post PEG tube placement Strict NPO Uses 2 L oxygen at home He needed high flow oxygen at presentation and was in resp distress. CXR noted hazy appearance to Right medial lung base which has progressed Admitting MRSA and respiratory BioFire negative Sputum culture grew pseudomonas Was initially on Unasyn and doxycycline which was changed to levofloxacin once sputum culture resulted Discharged on tab levofloxacin to complete treatment Oxygen requirement down to baseline Likely COPD exacerbation: Received steroid and nebs for COPD exacerbation as well during hospital stay CKD stage III: Creatinine at baseline Other chronic medical conditions:Chronic diastolic heart failure, chronic LBBB, CAD status post CABG, ASD status post bioprosthetic AVR, HLD on statin, na sopharyngeal cancer status post chemoradiation/in remission, chronic anemia, past tobacco abuse Patient's BP was labile during hospital stay with periods of hypotension which were asymptomatic He stated this was normal for him Total Time Total Time Spent Total Time Spent (In Minutes): 35 Total Time Includes: Examination of the Patient, Discharge Planning and Medication Reconciliation Discharge Plan Discharge Items Patient Disposition: Home - Home Health Services Reason For Visit: Cough and shortness of breath Discharge Diagnosis: Pneumonia Acute on chronic respiratory failure with hypoxia Activity: Resume your previous activity Non-emergency contact: Primary Care Provider Call non-emergency contact if: you have any medication questions and your symptoms worsen Follow-up/Referrals: Prudencio Burns MD [Primary Care Provider] - (Date & Time 10/12/2022 11:00 AM Provider Lizabeth Garcia Department [facility] ) Diet: Other - See Diet Comment Diet Comment: Continue tube feeding. No oral feeding Addtl Attending Provider Instructions: Mr Dodson You came to the hospital for increasing cough and 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 You were managed for the above listed diagnoses. You are being discharged home on levofloxacin to complete treatment. Please ensure follow up with your Primary Doctor It was a pleasure takng care of you. Pending Studies at Discharge: No Stand-Alone Forms: My [facility] [employer], Smoking Cessation Medications and DC Order Prescriptions: New levofloxacin 750 mg Tablet 750 mg feeding tube Q24H 5 Days Qty: 5 0RF Continued atorvastatin 40 mg Tablet 40 mg feeding tube QPM nitroglycerin 0.4 mg Tablet, Sublingual 0.4 mg sublingual UD PRN (Reason: Chest Pain) Rx Instructions: NEEDEDFOR CHEST PAIN : ONE TABLET UNDER THE TONGUE EVERY 5 MINUTES UP TO THREE DOSES. albuterol sulfate [ProAir HFA] 90 mcg/actuation HFA aerosol inhaler 2 inh inhalation Q6H PRN (Reason: shortness of breath or wheezing) Qty: 8.5 0RF Nutren 2.0 0.08 gram-2 kcal/mL Liquid 1 ea feeding tube QID Rx Instructions: administer via pump clotrimazole 1 % cream 1 applic TOPICAL BID Rx Instructions: APPLY TOPICALLY TO PEG SITE TWO TIMES A DAY. water for irrigation, sterile Solution 120 ml IRRIGATION 5XD Rx Instructions: into feeding tube acetaminophen [Tylenol] 325 mg Tablet 650 mg PO DIRECTED PRN (Reason: Pain) ipratropium-albuterol 0.5 mg-3 mg(2.5 mg base)/3 mL solution for nebulization 3 ml inhalation Q6H PRN (Reason: Shortness Of Breath ) Discharge Orders: Discharge Order (Routine); Ordered 10/07/22 Ordered By: Aretha Dunbar Admission Data Admit Date/Time: 10/03/22 22:01 Attending Provider: Aretha Dunbar I. Admit Provider: Alonso Rodriguez Primary Care Provider: Prudencio Burns Other Providers: Amara Sampson ; Britt Munoz ; Alonso Rodriguez ; Karin Curry Other Interventions: Discharge Summary Assessment (RN) Last Done: 10/07/22 13:39
[2022-10-07] MEDS: levoFLOXacin 750 MG TAB PO SCH (13:01)
== END 2022-10-07 14:34 | disposition home or self-care (01) | DRG 871 ==
LOC: ED 18:33 → EDINP 22:01 → SUATTDRO 22:01 → 2E 10-04 04:30 → 2N 10-06 01:23

== ENCOUNTER 2022-10-18 16:56 | Inpatient (IN) ==
--- NOTE | 2022-10-18 17:08 | Emergency Department Note ---
Impression & Plan Hypoxia ADMIT ED Provider Note HPI: The patient is a 77-year-old gentleman with history of nasopharyngeal cancer, chronic respiratory failure with hypoxia and hypercapnia, COPD, hypertension, hyperlipidemia, presents emergency department with chief complaint of shortness of breath and coughing/gagging on phlegm. Patient states that he had an acute episode of coughing and was gagging on some phlegm earlier today and therefore his son contacted EMS for the patient to be transported to the ED. On arrival here to the ED the patient is alert, he appears to be in no acute distress but he is noted to be hypoxic despite nonrebreather mask at about 80%. He is conversational otherwise, appears well perfused. Patient denies any chest pain, denies any vomiting. ROS: - Per HPI Differential Diagnosis: Aspiration pneumonia, COVID-19 infection, influenza A infection, acute bacterial pneumonia, COPD exacerbation with hypoxia, amongst other potential pathologies. *Outpatient medications and allergy history reviewed. *Pertinent external medical records reviewed. PE: General: Alert, frail-appearing, no acute distress HEENT: Normocephalic, trachea midline Eyes: Extraocular eye movement is intact, no scleral erythema Pulmonary: Diminished bilaterally Cardio: Regular rate and rhythm GI: Abdomen is soft to palpation : No suprapubic tenderness MSK: No evidence of trauma or malformation of the extremities, no edema Skin: No evidence of rash Neuro: Alert, no focal deficits Psychiatric: Cooperative monitoring coordinator: (As interpreted by myself): - An order was placed for continuous cardiac monitoring - Patient was noted to be in sinus rhythm with a rate of 75 EKG: (As interpreted by myself): Rate: 100 Rhythm: Normal sinus rhythm Intervals: Within normal limits ST changes: No ST elevation Time: 1737 Interventions provided in ED: -IV fluid bolus, IV Unasyn, DuoNeb breathing Medical Decision Making: Shortly after the patient arrived, he was placed on air sampling and monitoring, lab work was sent and IV established. Patient was maintained on nonrebreather mask. Oxygen saturation is noted to be about 85% on nonrebreather although the patient did not exhibit any significant respiratory distress with this, he was switched to BiPAP as this has helped him previously. He was also ordered to DuoNeb breathing treatment. Blood pressure on arrival was in the 70s systolic however the patient is not tachycardic, he does have a history of hypotension. He was ordered IV fluid bolus. Blood cultures were ordered. Lab work shows a leukocytosis of 20.17, hemoglobin is normal at 15.1, platelet count is normal 142, CMP shows no critical abnormalities, bicarb is chronically elevated at 35, troponin mildly elevated at 33, procalcitonin is high at 1.4, viral panel testing is negative. Chest x-ray shows right basilar opacity. I suspect this is aspiration pneumonia. Patient maintained his oxygen saturations well on BiPAP, he did have episodes of hypotension here in the ED to the 70s at times when accurate readings were taken, he responded well to a fluid bolus and on my reassessment his blood pressure is 106/68. Patient appears at his baseline, he is alert and conversational. Patient was not given a full 30 cc/kg of IV fluids secondary to history of heart failure. I discussed the patient's presentation with the on-call hospitalist, Dr. Rodriguez, and the patient was excepted for admission to the inpatient service for further management of aspiration pneumonia with hypoxia. I did also discuss the patient's presentation with his son, patient's son does confirm that the patient is DNR/DNI CODE STATUS which the patient also mentioned to me at the bedside. He states he would like interventions up to that point but did not want chest compressions if he were to go into cardiac arrest, or intubation under circumsta nces of acute respiratory failure. CODE STATUS was updated in the computer Consultants: Hospitalist, Dr. Rodriguez Disposition discussion held by myself with: Patient and patient's son on the one * CRITICAL CARE TIME: ( 55 ) minutes -Stabilization of patient with acute on chronic respiratory failure with hypoxia despite supplemental oxygen requiring noninvasive positive pressure ventilation/BiPAP for improvement, rotation of diagnostic studies, time spent at the bedside, discussion with other physicians and arrangement of admission Diagnosis: 1. Hypoxia, acute 2. Aspiration pneumonia, acute 3. Leukocytosis, acute 4. Elevated high-sensitivity troponin level, acute 5. Elevated procalcitonin Disposition: Admission Brian Degroot DO Emergency Medicine Past Med/Surg History Medical History Acute hypoxemic respiratory failure Acute on chronic diastolic heart failure Acute renal insufficiency JULES (acute kidney injury) CAD (coronary artery disease) Cardiac murmur CHILD FROM RHEUMATIC FEVER CHF (congestive heart failure) Chronic pulmonary aspiration CKD (chronic kidney disease) stage 3, GFR 30-59 ml/min Elevated lactic acid level Former tobacco use Hearing deficit BILAT History of [place] (myocardial infarction) 2017/ [facility] History of nasopharyngeal cancer s/p radiation, chemo- NO PORT ANYMORE CLEARED NOV 2013 History of rheumatic fever Hyperlipidemia Hypertension Left bundle branch block (LBBB) Palate abnormality prosthetic palate Pneumonia Radiation adverse effect Severe sepsis Shock Surgical History History of cardiac cath 2017 - [place] --> CABG - [facility]- follows w/ Dr. [place]- [facility]/ NO STENTS History of cataract surgery History of colonoscopy with polypectomy 09/25/2018. Propofol given, no issues. [facility] of heart valve replacement Bioprosthetic aortic valve - [place] 2016 History of shoulder surgery RIGHT History of tonsillectomy History of tooth extraction History of vascular access device NO LONGER HAS PORT Hx of aortic valve replacement Status post insertion of percutaneous endoscopic gastrostomy (PEG) tube PLACED DUE TO PALATE SURGERY- THEN REMOVED 2014 Family History Father Cancer Liver Cancer Social History Smoking Status: Never smoker Tobacco Type: Cigarettes Second Hand Exposure: No; Do You Dip or Chew Tobacco: No; Hx Alcohol Use: No Hx Substance Use: No Preferred Language: Welsh Communication Ability: Effective Communication Ability Comment: Has tablet Mill [employer]in[employer] Required: No Beliefs That Will Affect Care: None marital status: / Current Living Situation: Family Current Living Situation Comment: at home with son How many Children do You have: 1 Feels Safe at Home: Yes Assistive Devices: Cane and Other Allergies Allergies Allergy/AdvReac Type Severity Reaction Status Date / Time No Known Allergies Allergy Verified 10/18/22 18:52 Home Meds Home Medications Medication Instructions Recorded Confirmed atorvastatin 40 mg tablet 40 mg feeding tube QPM 09/18/18 10/18/22 nitroglycerin 0.4 mg sublingual 0.4 mg sublingual UD PRN Chest Pain 09/18/18 10/18/22 tablet nutritional supplements 0.08 1 ea feeding tube QID 02/19/21 10/18/22 gram-2 kcal/mL liquid for tube feed (Nutren 2.0) ipratropium 0.5 mg-albuterol 3 mg 3 ml inhalation Q6H PRN Shortness 09/05/22 10/18/22 (2.5 mg base)/3 mL nebulization Of Breath soln ibuprofen 100 mg/5 mL oral 0 mg PO Q6H PRN Fever Or Pain 10/18/22 10/18/22 suspension (Children's Advil) lorazepam 0.5 mg tablet 0.5 mg feeding tube HS PRN Anxiety 10/18/22 10/18/22 Previous Rx's Medication Instructions Recorded albuterol sulfate 90 mcg/actuation 2 inh inhalation Q6H PRN shortness 05/06/20 aerosol inhaler (ProAir HFA) of breath or wheezing #8.5 grams Results & Data (ED) Vital Signs Vital Signs - 24 hr 10/18/22 17:22 10/18/22 17:23 10/18/22 17:23 Temperature 37.9 C H Temperature Source Oral Pulse Rate 113 H Pulse Rate [Apical] Pulse Rate from SpO2 Sensor Respiratory Rate 20 Respiratory Effort / Characteristics Short of Breath Respiratory Depth Respiratory Pattern Tachypnea Blood Pressure 72/46 L Blood Pressure Mean 54 Blood Pressure Position Sitting Pulse Oximetry 80 L 80 L Oxygen Delivery Method Non-rebreather Non-rebreather Oxygen Flow Rate 15 15 Fraction of Inspired Oxygen Sepsis Recent Fever Within 48 Hours Yes Sepsis New/Unexplained Change in Mental Status No Sepsis Action Taken by Nursing Physician Notified 10/18/22 17:23 10/18/22 17:23 10/18/22 17:04 Temperature Temperature Source Oral Pulse Rate 114 H Pulse Rate [Apical] Pulse Rate from SpO2 Sensor Respiratory Rate Respiratory Effort / Characteristics Respiratory Depth Respiratory Pattern Blood Pressure Blood Pressure Mean Blood Pressure Position Pulse Oximetry Oxygen Delivery Method Non-rebreather Oxygen Flow Rate 15 Fraction of Inspired Oxygen Sepsis Recent Fever Within 48 Hours Sepsis New/Unexplained Change in Mental Status Sepsis Action Taken by Nursing 10/18/22 17:35 10/18/22 17:39 10/18/22 17:04 Temperature Temperature Source Pulse Rate 100 H 112 H Pulse Rate [Apical] 99 H Pulse Rate from SpO2 Sensor 117 H Respiratory Rate 24 20 19 Respiratory Effort / Characteristics Spontaneous Non-Labored Spontaneous Respiratory Depth Normal Respiratory Pattern Regular Blood Pressure Blood Pressure Mean Blood Pressure Position Pulse Oximetry 91 91 76 L Oxygen Delivery Method BiPAP Oxygen Flow Rate Fraction of Inspired Oxygen 80 80 Sepsis Recent Fever Within 48 Hours Sepsis New/Unexplained Change in Mental Status Sepsis Action Taken by Nursing 10/18/22 17:06 10/18/22 17:06 10/18/22 17:10 Temperature Temperature Source Pulse Rate 110 H 110 H Pulse Rate [Apical] Pulse Rate from SpO2 Sensor 109 H 110 H Respiratory Rate 25 H 25 H Respiratory Effort / Characteristics Respiratory Depth Respiratory Pattern Blood Pressure 72/46 L Blood Pressure Mean 51 Blood Pressure Position Pulse Oximetry 79 L 81 L Oxygen Delivery Method Oxygen Flow Rate Fraction of Inspired Oxygen Sepsis Recent Fever Within 48 Hours Sepsis New/Unexplained Change in Mental Status Sepsis Action Taken by Nursing 10/18/22 17:20 10/18/22 17:30 10/18/22 17:30 Temperature Temperature Source Pulse Rate 108 H 101 H Pulse Rate [Apical] Pulse Rate from SpO2 Sensor 108 H 101 H Respiratory Rate 23 21 Respiratory Effort / Characteristics Respiratory Depth Respiratory Pattern Blood Pressure 73/47 L Blood Pressure Mean 59 Blood Pressure Position Pulse Oximetry 84 L 85 L Oxygen Delivery Method Oxygen Flow Rate Fraction of Inspired Oxygen Sepsis Recent Fever Within 48 Hours Sepsis New/Unexplained Change in Mental Status Sepsis Action Taken by Nursing 10/18/22 17:40 10/18/22 17:50 10/18/22 18:13 Temperature Temperature Source Pulse Rate 99 H 101 H Pulse Rate [Apical] Pulse Rate from SpO2 Sensor 100 H 100 H 167 H Respiratory Rate 19 25 H Respiratory Effort / Characteristics Respiratory Depth Respiratory Pattern Blood Pressure Blood Pressure Mean Blood Pressure Position Pulse Oximetry 91 89 L 78 L Oxygen Delivery Method BiPAP Oxygen Flow Rate Fraction of Inspired Oxygen 80 Sepsis Recent Fever Within 48 Hours Sepsis New/Unexplained Change in Mental Status Sepsis Action Taken by Nursing 10/18/22 18:21 10/18/22 18:24 10/18/22 18:24 Temperature Temperature Source Pulse Rate 126 H 121 H Pulse Rate [Apical] Pulse Rate from SpO2 Sensor 117 H Respiratory Rate 39 H 15 Respiratory Effort / Characteristics Respiratory Depth Respiratory Pattern Blood Pressure 106/79 Blood Pressure Mean 86 Blood Pressure Position Pulse Oximetry 82 L Oxygen Delivery Method Oxygen Flow Rate Fraction of Inspired Oxygen Sepsis Recent Fever Within 48 Hours Sepsis New/Unexplained Change in Mental Status Sepsis Action Taken by Nursing 10/18/22 18:30 10/18/22 18:30 10/18/22 18:40 Temperature Temperature Source Pulse Rate 110 H 111 H Pulse Rate [Apical] Pulse Rate from SpO2 Sensor 115 H 108 H Respiratory Rate 21 21 Respiratory Effort / Characteristics Respiratory Depth Respiratory Pattern Blood Pressure 111/75 Blood Pressure Mean 96 Blood Pressure Position Pulse Oximetry 80 L 76 L Oxygen Delivery Method Oxygen Flow Rate Fraction of Inspired Oxygen Sepsis Recent Fever Within 48 Hours Sepsis New/Unexplained Change in Mental Status Sepsis Action Taken by Nursing 10/18/22 18:46 10/18/22 18:46 10/18/22 18:50 Temperature Temperature Source Pulse Rate 110 H 108 H Pulse Rate [Apical] Pulse Rate from SpO2 Sensor 104 H 109 H Respiratory Rate 30 H 21 Respiratory Effort / Characteristics Respiratory Depth Respiratory Pattern Blood Pressure 129/83 Blood Pressure Mean 94 Blood Pressure Position Pulse Oximetry 79 L 94 Oxygen Delivery Method Oxygen Flow Rate Fraction of Inspired Oxygen Sepsis Recent Fever Within 48 Hours Sepsis New/Unexplained Change in Mental Status Sepsis Action Taken by Nursing 10/18/22 19:00 10/18/22 19:00 10/18/22 19:02 Temperature Temperature Source Pulse Rate 99 H 97 H Pulse Rate [Apical] Pulse Rate from SpO2 Sensor 98 H 101 H Respiratory Rate 21 23 Respiratory Effort / Characteristics Respiratory Depth Respiratory Pattern Blood Pressure 54/42 L Blood Pressure Mean 46 Blood Pressure Position Pulse Oximetry 98 92 Oxygen Delivery Method Oxygen Flow Rate Fraction of Inspired Oxygen Sepsis Recent Fever Within 48 Hours Sepsis New/Unexplained Change in Mental Status Sepsis Action Taken by Nursing 10/18/22 19:02 10/18/22 19:10 10/18/22 19:15 Temperature Temperature Source Pulse Rate 99 H Pulse Rate [Apical] Pulse Rate from SpO2 Sensor 94 H Respiratory Rate 17 Respiratory Effort / Characteristics Respiratory Depth Respiratory Pattern Blood Pressure 84/52 L 58/39 L Blood Pressure Mean 55 44 Blood Pressure Position Pulse Oximetry 99 Oxygen Delivery Method Oxygen Flow Rate Fraction of Inspired Oxygen Sepsis Recent Fever Within 48 Hours Sepsis New/Unexplained Change in Mental Status Sepsis Action Taken by Nursing 10/18/22 19:15 10/18/22 19:19 10/18/22 19:19 Temperature Temperature Source Pulse Rate 92 H 90 Pulse Rate [Apical] Pulse Rate from SpO2 Sensor 114 H 90 Respiratory Rate 29 H 20 Respiratory Effort / Characteristics Respiratory Depth Respiratory Pattern Blood Pressure 50/37 L Blood Pressure Mean 43 Blood Pressure Position Pulse Oximetry 80 L 98 Oxygen Delivery Method Oxygen Flow Rate Fraction of Inspired Oxygen Sepsis Recent Fever Within 48 Hours Sepsis New/Unexplained Change in Mental Status Sepsis Action Taken by Nursing 10/18/22 19:20 10/18/22 19:23 10/18/22 19:23 Temperature Temperature Source Pulse Rate 89 90 Pulse Rate [Apical] Pulse Rate from SpO2 Sensor 89 90 Respiratory Rate 22 24 Respiratory Effort / Characteristics Respiratory Depth Respiratory Pattern Blood Pressure 61/46 L Blood Pressure Mean 50 Blood Pressure Position Pulse Oximetry 98 99 Oxygen Delivery Method Oxygen Flow Rate Fraction of Inspired Oxygen Sepsis Recent Fever Within 48 Hours Sepsis New/Unexplained Change in Mental Status Sepsis Action Taken by Nursing 10/18/22 19:25 10/18/22 19:25 10/18/22 19:30 Temperature Temperature Source Pulse Rate 93 H 92 H Pulse Rate [Apical] Pulse Rate from SpO2 Sensor 93 H 105 H Respiratory Rate 22 16 Respiratory Effort / Characteristics Respiratory Depth Respiratory Pattern Blood Pressure 69/50 L Blood Pressure Mean 54 Blood Pressure Position Pulse Oximetry 98 93 Oxygen Delivery Method Oxygen Flow Rate Fraction of Inspired Oxygen Sepsis Recent Fever Within 48 Hours Sepsis New/Unexplained Change in Mental Status Sepsis Action Taken by Nursing 10/18/22 19:31 10/18/22 19:31 10/18/22 19:35 Temperature Temperature Source Pulse Rate 91 H 89 Pulse Rate [Apical] Pulse Rate from SpO2 Sensor 92 H 91 H Respiratory Rate 20 19 Respiratory Effort / Characteristics Respiratory Depth Respiratory Pattern Blood Pressure 79/52 L Blood Pressure Mean 58 Blood Pressure Position Pulse Oximetry 92 93 Oxygen Delivery Method Oxygen Flow Rate Fraction of Inspired Oxygen Sepsis Recent Fever Within 48 Hours Sepsis New/Unexplained Change in Mental Status Sepsis Action Taken by Nursing 10/18/22 19:35 10/18/22 19:40 10/18/22 19:40 Temperature Temperature Source Pulse Rate 89 Pulse Rate [Apical] Pulse Rate from SpO2 Sensor 89 Respiratory Rate 19 Respiratory Effort / Characteristics Respiratory Depth Respiratory Pattern Blood Pressure 71/55 L 84/57 L Blood Pressure Mean 60 67 Blood Pressure Position Pulse Oximetry 100 Oxygen Delivery Method Oxygen Flow Rate Fraction of Inspired Oxygen Sepsis Recent Fever Within 48 Hours Sepsis New/Unexplained Change in Mental Status Sepsis Action Taken by Nursing 10/18/22 19:45 10/18/22 19:45 10/18/22 19:50 Temperature Temperature Source Pulse Rate 89 Pulse Rate [Apical] Pulse Rate from SpO2 Sensor 89 Respiratory Rate 18 Respiratory Effort / Characteristics Respiratory Depth Respiratory Pattern Blood Pressure 64/47 L 59/39 L Blood Pressure Mean 50 44 Blood Pressure Position Pulse Oximetry 99 Oxygen Delivery Method Oxygen Flow Rate Fraction of Inspired Oxygen Sepsis Recent Fever Within 48 Hours Sepsis New/Unexplained Change in Mental Status Sepsis Action Taken by Nursing 10/18/22 19:50 10/18/22 19:55 10/18/22 19:55 Temperature Temperature Source Pulse Rate 88 88 Pulse Rate [Apical] Pulse Rate from SpO2 Sensor 89 87 Respiratory Rate 19 17 Respiratory Effort / Characteristics Respiratory Depth Respiratory Pattern Blood Pressure 69/45 L Blood Pressure Mean 50 Blood Pressure Position Pulse Oximetry 98 98 Oxygen Delivery Method Oxygen Flow Rate Fraction of Inspired Oxygen Sepsis Recent Fever Within 48 Hours Sepsis New/Unexplained Change in Mental Status Sepsis Action Taken by Nursing 10/18/22 20:00 10/18/22 20:00 10/18/22 20:05 Temperature Temperature Source Pulse Rate 89 Pulse Rate [Apical] Pulse Rate from SpO2 Sensor 90 Respiratory Rate 23 Respiratory Effort / Characteristics Respiratory Depth Respiratory Pattern Blood Pressure 80/57 L 121/76 Blood Pressure Mean 60 80 Blood Pressure Position Pulse Oximetry 100 Oxygen Delivery Method Oxygen Flow Rate Fraction of Inspired Oxygen Sepsis Recent Fever Within 48 Hours Sepsis New/Unexplained Change in Mental Status Sepsis Action Taken by Nursing 10/18/22 20:05 10/18/22 20:10 10/18/22 20:10 Temperature Temperature Source Pulse Rate 92 H 89 Pulse Rate [Apical] Pulse Rate from SpO2 Sensor 91 H 90 Respiratory Rate 20 19 Respiratory Effort / Characteristics Respiratory Depth Respiratory Pattern Blood Pressure 120/73 Blood Pressure Mean 96 Blood Pressure Position Pulse Oximetry 100 100 Oxygen Delivery Method Oxygen Flow Rate Fraction of Inspired Oxygen Sepsis Recent Fever Within 48 Hours Sepsis New/Unexplained Change in Mental Status Sepsis Action Taken by Nursing 10/18/22 20:15 10/18/22 20:15 10/18/22 20:20 Temperature Temperature Source Pulse Rate 96 H 90 Pulse Rate [Apical] Pulse Rate from SpO2 Sensor 100 H 90 Respiratory Rate 29 H 19 Respiratory Effort / Characteristics Respiratory Depth Respiratory Pattern Blood Pressure 141/80 H Blood Pressure Mean 98 Blood Pressure Position Pulse Oximetry 100 100 Oxygen Delivery Method Oxygen Flow Rate Fraction of Inspired Oxygen Sepsis Recent Fever Within 48 Hours Sepsis New/Unexplained Change in Mental Status Sepsis Action Taken by Nursing 10/18/22 20:25 10/18/22 20:30 10/18/22 20:30 Temperature Temperature Source Pulse Rate 87 85 Pulse Rate [Apical] Pulse Rate from SpO2 Sensor 87 84 Respiratory Rate 19 17 Respiratory Effort / Characteristics Respiratory Depth Respiratory Pattern Blood Pressure 85/55 L Blood Pressure Mean 59 Blood Pressure Position Pulse Oximetry 100 100 Oxygen Delivery Method Oxygen Flow Rate Fraction of Inspired Oxygen Sepsis Recent Fever Within 48 Hours Sepsis New/Unexplained Change in Mental Status Sepsis Action Taken by Nursing 10/18/22 20:35 10/18/22 20:40 10/18/22 20:45 Temperature Temperature Source Pulse Rate 81 81 81 Pulse Rate [Apical] Pulse Rate from SpO2 Sensor 81 81 81 Respiratory Rate 18 21 17 Respiratory Effort / Characteristics Respiratory Depth Respiratory Pattern Blood Pressure Blood Pressure Mean Blood Pressure Position Pulse Oximetry 99 94 88 L Oxygen Delivery Method Oxygen Flow Rate Fraction of Inspired Oxygen Sepsis Recent Fever Within 48 Hours Sepsis New/Unexplained Change in Mental Status Sepsis Action Taken by Nursing 10/18/22 20:46 10/18/22 20:46 10/18/22 20:50 Temperature Temperature Source Pulse Rate 81 83 Pulse Rate [Apical] Pulse Rate from SpO2 Sensor 81 82 Respiratory Rate 17 17 Respiratory Effort / Characteristics Respiratory Depth Respiratory Pattern Blood Pressure 51/31 L Blood Pressure Mean 36 Blood Pressure Position Pulse Oximetry 87 L 85 L Oxygen Delivery Method Oxygen Flow Rate Fraction of Inspired Oxygen Sepsis Recent Fever Within 48 Hours Sepsis New/Unexplained Change in Mental Status Sepsis Action Taken by Nursing 10/18/22 20:54 10/18/22 20:54 10/18/22 20:55 Temperature Temperature Source Pulse Rate 84 83 Pulse Rate [Apical] Pulse Rate from SpO2 Sensor 84 83 Respiratory Rate 25 H 23 Respiratory Effort / Characteristics Respiratory Depth Respiratory Pattern Blood Pressure 55/37 L Blood Pressure Mean 41 Blood Pressure Position Pulse Oximetry 83 L 88 L Oxygen Delivery Method Oxygen Flow Rate Fraction of Inspired Oxygen Sepsis Recent Fever Within 48 Hours Sepsis New/Unexplained Change in Mental Status Sepsis Action Taken by Nursing Laboratory Data 10/18/22 17:10 10/18/22 17:10 Lab Results 10/18/22 10/18/22 10/18/22 Range/Units 17:08 17:10 17:10 WBC 20.17 H (4.8-10.8) K/ul RBC 4.89 (4.70-6.10) M/uL Hgb 15.1 (14.0-18.0) g/dl Hct 46.3 (42.0-52.0) % MCV 94.7 (80.0-100.0) fL MCH 30.9 (25.0-34.0) pg MCHC 32.6 (32.0-36.0) g/dL RDW Std Deviation 47.6 H (36.4-46.3) fL RDW Coeff of Navid 13.6 (11.5-14.5) % Plt Count 142 (130-400) K/uL MPV 11.3 (9.4-12.4) fL Immature Gran % (Auto) 0.4 % Neut % (Auto) 92.2 % Lymph % (Auto) 2.2 % Slope % (Auto) 4.9 % Eos % (Auto) 0.0 % Baso % (Auto) 0.3 % Neut # (Auto) 18.61 H (1.40-6.50) K/uL Lymph # (Auto) 0.44 L (1.20-3.40) K/uL Slope # (Auto) 0.98 H (0.11-0.59) K/uL Eos # (Auto) 0.00 (0.00-0.50) K/uL Baso # (Auto) 0.06 (0.00-0.20) K/uL Immature Gran # (Auto) 0.08 (0.01-0.20) K/uL Toxic Vacuolation 1+ PT 11.6 (9.0-12.0) Seconds INR 1.1 (0.9-1.1) ABG pH (7.35-7.45) ABG pCO2 (35-46) mmHg ABG pO2 (80-95) mmHg ABG HCO3 (19-24) mmol/L ABG O2 Saturation (90-95) % ABG Base Excess (-9-1.8) mEq/L Reed Test (Pos) VBG pH (7.36-7.41) VBG pCO2 (38-50) mmHg VBG pO2 mmHg VBG HCO3 mmol/L VBG O2 Saturation % VBG Base Excess mEq/L Oxygen Given Sodium (136-145) mmol/L Potassium (3.5-5.1) mmol/L Chloride (98-107) mmol/L Carbon Dioxide (21-32) mmol/L Anion Gap (3-11) BUN (6-23) mg/dl Creatinine (0.6-1.4) mg/dl Est Cr Clr Drug Dosing ml/min Est GFR ( Amer) ml/min Est GFR (Non-Af Amer) ml/min BUN/Creatinine Ratio (10-20) Glucose (70-99(Fasting)) mg/dl Lactate (0.4-2.0) mmol/L Calcium (8.6-10.3) mg/dl Magnesium (1.7-2.4) mg/dl Total Bilirubin (0.2-1.0) mg/dl AST (13-39) U/L ALT (7-52) U/L Alkaline Phosphatase (34-104) U/L Troponin I High Sens (0-20) pg/ml B-Natriuretic Peptide (0-100) pg/ml Total Protein (6.0-8.3) gm/dl Albumin (3.4-5.0) gm/dl Globulin (2.5-4.0) gm/dl Albumin/Globulin Ratio (0.9-2) Procalcitonin (0-0.5) ng/ml Adenovirus (PCR) Not Detected (NotDetected) B. pertussis DNA (PCR) Not Detected (NotDetected) B.parapertussis DNA PCR Not Detected (NotDetected) C. pneumoniae DNA (PCR) Not Detected (NotDetected) Coronavirus OC43 (PCR) Not Detected (NotDetected) Coronavirus HKU1 (PCR) Not Detected (NotDetected) Coronavirus 229E (PCR) Not Detected (NotDetected) SARS-CoV-2 (PCR) Not Detected (NotDetected) Coronavirus NL63 (PCR) Not Detected (NotDetected) Human Metapneumovir PCR Not Detected (NotDetected) Influenza Type A (PCR) Not Detected (NotDetected) Influenza Type B (PCR) Not Detected (NotDetected) M. pneumoniae (PCR) Not Detected (NotDetected) Parainfluenza 1 (PCR) Not Detected (NotDetected) Parainfluenza 2 (PCR) Not Detected (NotDetected) Parainfluenza 3 (PCR) Not Detected (NotDetected) Parainfluenza 4 (PCR) Not Detected (NotDetected) RSV (PCR) Not Detected (NotDetected) Entero/Rhino (PCR) Not Detected (NotDetected) 10/18/22 10/18/22 10/18/22 Range/Units 17:10 17:10 17:10 WBC (4.8-10.8) K/ul RBC (4.70-6.10) M/uL Hgb (14.0-18.0) g/dl Hct (42.0-52.0) % MCV (80.0-100.0) fL MCH (25.0-34.0) pg MCHC (32.0-36.0) g/dL RDW Std Deviation (36.4-46.3) fL RDW Coeff of Navid (11.5-14.5) % Plt Count (130-400) K/uL MPV (9.4-12.4) fL Immature Gran % (Auto) % Neut % (Auto) % Lymph % (Auto) % Slope % (Auto) % Eos % (Auto) % Baso % (Auto) % Neut # (Auto) (1.40-6.50) K/uL Lymph # (Auto) (1.20-3.40) K/uL Slope # (Auto) (0.11-0.59) K/uL Eos # (Auto) (0.00-0.50) K/uL Baso # (Auto) (0.00-0.20) K/uL Immature Gran # (Auto) (0.01-0.20) K/uL Toxic Vacuolation PT (9.0-12.0) Seconds INR (0.9-1.1) ABG pH (7.35-7.45) ABG pCO2 (35-46) mmHg ABG pO2 (80-95) mmHg ABG HCO3 (19-24) mmol/L ABG O2 Saturation (90-95) % ABG Base Excess (-9-1.8) mEq/L Reed Test (Pos) VBG pH (7.36-7.41) VBG pCO2 (38-50) mmHg VBG pO2 mmHg VBG HCO3 mmol/L VBG O2 Saturation % VBG Base Excess mEq/L Oxygen Given Sodium 142 (136-145) mmol/L Potassium 4.2 (3.5-5.1) mmol/L Chloride 97 L (98-107) mmol/L Carbon Dioxide 35 H (21-32) mmol/L Anion Gap 10 (3-11) BUN 33 H (6-23) mg/dl Creatinine 0.97 (0.6-1.4) mg/dl Est Cr Clr Drug Dosing 52.4 ml/min Est GFR ( Amer) 86.3 ml/min Est GFR (Non-Af Amer) 74.5 ml/min BUN/Creatinine Ratio 34.0 H (10-20) Glucose 75 (70-99(Fasting)) mg/dl Lactate (0.4-2.0) mmol/L Calcium 9.3 (8.6-10.3) mg/dl Magnesium (1.7-2.4) mg/dl Total Bilirubin 0.6 (0.2-1.0) mg/dl AST 56 H (13-39) U/L ALT 29 (7-52) U/L Alkaline Phosphatase 131 H (34-104) U/L Troponin I High Sens 33.2 H (0-20) pg/ml B-Natriuretic Peptide 88 (0-100) pg/ml Total Protein 7.6 (6.0-8.3) gm/dl Albumin 3.6 (3.4-5.0) gm/dl Globulin 4.0 (2.5-4.0) gm/dl Albumin/Globulin Ratio 0.9 (0.9-2) Procalcitonin 1.40 H (0-0.5) ng/ml Adenovirus (PCR) (NotDetected) B. pertussis DNA (PCR) (NotDetected) B.parapertussis DNA PCR (NotDetected) C. pneumoniae DNA (PCR) (NotDetected) Coronavirus OC43 (PCR) (NotDetected) Coronavirus HKU1 (PCR) (NotDetected) Coronavirus 229E (PCR) (NotDetected) SARS-CoV-2 (PCR) (NotDetected) Coronavirus NL63 (PCR) (NotDetected) Human Metapneumovir PCR (NotDetected) Influenza Type A (PCR) (NotDetected) Influenza Type B (PCR) (NotDetected) M. pneumoniae (PCR) (NotDetected) Parainfluenza 1 (PCR) (NotDetected) Parainfluenza 2 (PCR) (NotDetected) Parainfluenza 3 (PCR) (NotDetected) Parainfluenza 4 (PCR) (NotDetected) RSV (PCR) (NotDetected) Entero/Rhino (PCR) (NotDetected) 10/18/22 10/18/22 10/18/22 Range/Units 17:45 19:32 20:06 WBC (4.8-10.8) K/ul RBC (4.70-6.10) M/uL Hgb (14.0-18.0) g/dl Hct (42.0-52.0) % MCV (80.0-100.0) fL MCH (25.0-34.0) pg MCHC (32.0-36.0) g/dL RDW Std Deviation (36.4-46.3) fL RDW Coeff of Navid (11.5-14.5) % Plt Count (130-400) K/uL MPV (9.4-12.4) fL Immature Gran % (Auto) % Neut % (Auto) % Lymph % (Auto) % Slope % (Auto) % Eos % (Auto) % Baso % (Auto) % Neut # (Auto) (1.40-6.50) K/uL Lymph # (Auto) (1.20-3.40) K/uL Slope # (Auto) (0.11-0.59) K/uL Eos # (Auto) (0.00-0.50) K/uL Baso # (Auto) (0.00-0.20) K/uL Immature Gran # (Auto) (0.01-0.20) K/uL Toxic Vacuolation PT (9.0-12.0) Seconds INR (0.9-1.1) ABG pH (7.35-7.45) ABG pCO2 (35-46) mmHg ABG pO2 (80-95) mmHg ABG HCO3 (19-24) mmol/L ABG O2 Saturation (90-95) % ABG Base Excess (-9-1.8) mEq/L Reed Test (Pos) VBG pH 7.35 L (7.36-7.41) VBG pCO2 71 H (38-50) mmHg VBG pO2 28 mmHg VBG HCO3 39 mmol/L VBG O2 Saturation < 60.0 % VBG Base Excess 10.6 mEq/L Oxygen Given Sodium (136-145) mmol/L Potassium (3.5-5.1) mmol/L Chloride (98-107) mmol/L Carbon Dioxide (21-32) mmol/L Anion Gap (3-11) BUN (6-23) mg/dl Creatinine (0.6-1.4) mg/dl Est Cr Clr Drug Dosing ml/min Est GFR ( Amer) ml/min Est GFR (Non-Af Amer) ml/min BUN/Creatinine Ratio (10-20) Glucose (70-99(Fasting)) mg/dl Lactate 0.8 (0.4-2.0) mmol/L Calcium (8.6-10.3) mg/dl Magnesium 1.8 (1.7-2.4) mg/dl Total Bilirubin (0.2-1.0) mg/dl AST (13-39) U/L ALT (7-52) U/L Alkaline Phosphatase (34-104) U/L Troponin I High Sens 58.6 H* D (0-20) pg/ml B-Natriuretic Peptide (0-100) pg/ml Total Protein (6.0-8.3) gm/dl Albumin (3.4-5.0) gm/dl Globulin (2.5-4.0) gm/dl Albumin/Globulin Ratio (0.9-2) Procalcitonin (0-0.5) ng/ml Adenovirus (PCR) (NotDetected) B. pertussis DNA (PCR) (NotDetected) B.parapertussis DNA PCR (NotDetected) C. pneumoniae DNA (PCR) (NotDetected) Coronavirus OC43 (PCR) (NotDetected) Coronavirus HKU1 (PCR) (NotDetected) Coronavirus 229E (PCR) (NotDetected) SARS-CoV-2 (PCR) (NotDetected) Coronavirus NL63 (PCR) (NotDetected) Human Metapneumovir PCR (NotDetected) Influenza Type A (PCR) (NotDetected) Influenza Type B (PCR) (NotDetected) M. pneumoniae (PCR) (NotDetected) Parainfluenza 1 (PCR) (NotDetected) Parainfluenza 2 (PCR) (NotDetected) Parainfluenza 3 (PCR) (NotDetected) Parainfluenza 4 (PCR) (NotDetected) RSV (PCR) (NotDetected) Entero/Rhino (PCR) (NotDetected) 10/18/22 Range/Units 20:06 WBC (4.8-10.8) K/ul RBC (4.70-6.10) M/uL Hgb (14.0-18.0) g/dl Hct (42.0-52.0) % MCV (80.0-100.0) fL MCH (25.0-34.0) pg MCHC (32.0-36.0) g/dL RDW Std Deviation (36.4-46.3) fL RDW Coeff of Navid (11.5-14.5) % Plt Count (130-400) K/uL MPV (9.4-12.4) fL Immature Gran % (Auto) % Neut % (Auto) % Lymph % (Auto) % Slope % (Auto) % Eos % (Auto) % Baso % (Auto) % Neut # (Auto) (1.40-6.50) K/uL Lymph # (Auto) (1.20-3.40) K/uL Slope # (Auto) (0.11-0.59) K/uL Eos # (Auto) (0.00-0.50) K/uL Baso # (Auto) (0.00-0.20) K/uL Immature Gran # (Auto) (0.01-0.20) K/uL Toxic Vacuolation PT (9.0-12.0) Seconds INR (0.9-1.1) ABG pH 7.42 (7.35-7.45) ABG pCO2 53 H (35-46) mmHg ABG pO2 155 H (80-95) mmHg ABG HCO3 34 H (19-24) mmol/L ABG O2 Saturation 99.4 H (90-95) % ABG Base Excess 8.2 H (-9-1.8) mEq/L Reed Test Pos (Pos) VBG pH (7.36-7.41) VBG pCO2 (38-50) mmHg VBG pO2 mmHg VBG HCO3 mmol/L VBG O2 Saturation % VBG Base Excess mEq/L Oxygen Given 80% Sodium (136-145) mmol/L Potassium (3.5-5.1) mmol/L Chloride (98-107) mmol/L Carbon Dioxide (21-32) mmol/L Anion Gap (3-11) BUN (6-23) mg/dl Creatinine (0.6-1.4) mg/dl Est Cr Clr Drug Dosing ml/min Est GFR ( Amer) ml/min Est GFR (Non-Af Amer) ml/min BUN/Creatinine Ratio (10-20) Glucose (70-99(Fasting)) mg/dl Lactate (0.4-2.0) mmol/L Calcium (8.6-10.3) mg/dl Magnesium (1.7-2.4) mg/dl Total Bilirubin (0.2-1.0) mg/dl AST (13-39) U/L ALT (7-52) U/L Alkaline Phosphatase (34-104) U/L Troponin I High Sens (0-20) pg/ml B-Natriuretic Peptide (0-100) pg/ml Total Protein (6.0-8.3) gm/dl Albumin (3.4-5.0) gm/dl Globulin (2.5-4.0) gm/dl Albumin/Globulin Ratio (0.9-2) Procalcitonin (0-0.5) ng/ml Adenovirus (PCR) (NotDetected) B. pertussis DNA (PCR) (NotDetected) B.parapertussis DNA PCR (NotDetected) C. pneumoniae DNA (PCR) (NotDetected) Coronavirus OC43 (PCR) (NotDetected) Coronavirus HKU1 (PCR) (NotDetected) Coronavirus 229E (PCR) (NotDetected) SARS-CoV-2 (PCR) (NotDetected) Coronavirus NL63 (PCR) (NotDetected) Human Metapneumovir PCR (NotDetected) Influenza Type A (PCR) (NotDetected) Influenza Type B (PCR) (NotDetected) M. pneumoniae (PCR) (NotDetected) Parainfluenza 1 (PCR) (NotDetected) Parainfluenza 2 (PCR) (NotDetected) Parainfluenza 3 (PCR) (NotDetected) Parainfluenza 4 (PCR) (NotDetected) RSV (PCR) (NotDetected) Entero/Rhino (PCR) (NotDetected) Administered Medications Magnesium Sulfate/Dextrose (Magnesium Sulfate / D5w) 1 gm in 100 mls @ 50 mls/hr IV ONE STA Stop: 10/18/22 22:43 Last Admin: 10/18/22 21:18 Dose: 50 mls/hr Documented By: TREV Doxycycline Hyclate 100 mg/ (Dextrose) 110 mls @ 50 mls/hr IV NOW STA Stop: 10/18/22 23:21 Last Admin: 10/18/22 21:22 Dose: 50 mls/hr Documented By: TREV Sodium Chloride (1/2 Nss) 1,000 mls @ 200 mls/hr IV .Q5H ONE Stop: 10/19/22 02:59 Last Admin: 10/18/22 21:18 Dose: 200 mls/hr Documented By: TREV Discontinued Medications Albuterol (Albut/Ipratrop 3mg/0.5mg Neb 3 Ml Vial) 3 ml NEB NOW STA; Protocol Stop: 10/18/22 17:11 Last Admin: 10/18/22 17:34 Dose: 3 ml Documented By: WERO Sodium Chloride (Nss) 1,000 mls @ 999 mls/hr IV .Q1H1M ONE Stop: 10/18/22 18:13 Last Infusion: 10/18/22 20:11 Dose: 0 mls/hr Documented By: Admin: 10/18/22 17:15 Dose: 999 mls/hr Documented By: CHIRAG Ampicillin Sodium/Sulbactam Sodium 3,000 mg/ Sodium Chloride 108 mls @ 200 mls/hr IV NOW STA; Protocol Stop: 10/18/22 18:53 Last Infusion: 10/18/22 20:10 Dose: 0 mls/hr Documented By: Admin: 10/18/22 19:09 Dose: 200 mls/hr Documented By: TREV Piperacillin Sod/Tazobactam Sod (Zosyn) 4.5 gm in 120 mls @ 240 mls/hr IV NOW ONE Stop: 10/18/22 20:06 Last Admin: 10/18/22 20:31 Dose: 240 mls/hr Documented By: TREV Acetaminophen (Ofirmev) 1,000 mg in 100 mls @ 400 mls/hr IV NOW STA Stop: 10/18/22 19:51 Last Infusion: 10/18/22 20:30 Dose: 0 mls/hr Documented By: Admin: 10/18/22 20:11 Dose: 400 mls/hr Documented By: TREV Methylprednisolone 40 mg/ (Syringe) 0.64 mls @ 1.5 mls/min IV NOW STA Stop: 10/18/22 19:41 Last Admin: 10/18/22 20:11 Dose: 1.5 mls/min Documented By: TREV Sodium Chloride (1/2 Nss) 1,000 mls @ 999 mls/hr IV .Q1H1M STA Stop: 10/18/22 20:56 Last Infusion: 10/18/22 21:50 Dose: 0 mls/hr Documented By: Admin: 10/18/22 20:03 Dose: 200 mls/hr Documented By: TREV Imaging Data Radiologist's Impression: Chest X-Ray 10/18/22 17:01 XR chest 1V portable HISTORY: 77 years-old Male Dyspnea acute shortness of breath COMPARISON: 10/03/2022, 09/06/2022. TECHNIQUE: AP view of the chest FINDINGS: Cardiomediastinal and hilar silhouettes are unchanged. Prior median sternotomy. Chronic reticular nodular opacities. Mildly progressed airspace opacities of the right lung base. No pneumothorax or large pleural effusion. Degenerative changes of the shoulders and spine. IMPRESSION: 1. Mildly progressed right basilar opacities suggestive of atelectasis versus pneumonia. 2. Chronic reticulonodular densities again noted. ACT 112: Negative or not required by law. The above report was generated using voice recognition software. It may contain grammatical, syntax or spelling errors. Electronically signed by: Marcel Cloud M.D. 10/18/2022 5:27 PM Discharge Plan Visit Data Chief Complaint: Respiratory Problems Stated Complaint: ASPIRATION ED Provider: Brian Degroot Discharge Problem: Hypoxia Discharge Instructions Interventions: ED Discharge Assessment Last Done: 10/18/22 21:33
[2022-10-18] MEDS ORDERED: ALBUT/IPRATROP 3MG/0.5MG NEB 3 ML VIAL NEB STA (17:10)
[2022-10-18] MEDS ORDERED: SODIUM CHLORIDE 0.9% 1,000 ML IV ONE (17:13)
--- NOTE | 2022-10-18 17:28 | XRay Report ---
XR chest 1V portable HISTORY: 77 years-old Male Dyspnea acute shortness of breath COMPARISON: 10/03/2022, 09/06/2022. TECHNIQUE: AP view of the chest FINDINGS: Cardiomediastinal and hilar silhouettes are unchanged. Prior median sternotomy. Chronic reticular nod ular opacities. Mildly progressed airspace opacities of the right lung base. No pneumothorax or large pleural effusion. Degenerative changes of the shoulders and spine. IMPRESSION: 1. Mildly progressed right basilar opacities suggestive of atelectasis versus pneumonia. 2. Chronic reticulonodular densities again noted. ACT 112: Negative or not required by law. The above report was generated using voice recognition software. It may contain grammatical, syntax o r spelling errors. Electronically signed by: Marcel Cloud M.D. 10/18/2022 5:27 PM
[2022-10-18 18:05] LABS: Base Excess VBG 10.6 mEq/L; HCO3 VBG 39 mmol/L; Oxygen Saturation VBG < 60.0 %; PCO2 VBG 71 mmHg (38-50); PO2 VBG 28 mmHg; pH VBG 7.35 (7.36-7.41)
[2022-10-18 18:05] LABS: Hematocrit (blood only) 46.3 % (42.0-52.0); Hemoglobin 15.1 g/dl (14.0-18.0); Mean Corpuscular Hemoglobin 30.9 pg (25.0-34.0); Mean Corpuscular Hgb Conc 32.6 g/dL (32.0-36.0); Mean Corpuscular Volume 94.7 fL (80.0-100.0); Mean Platelet Volume 11.3 fL (9.4-12.4); Platelet Count 142 K/uL (130-400); RDW Coefficient of Variation 13.6 % (11.5-14.5); RDW Standard Deviation 47.6 fL (36.4-46.3); Red Blood Count 4.89 M/uL (4.70-6.10); White Blood Count 20.17 K/ul (4.8-10.8)
[2022-10-18] MEDS ORDERED: AMPICILLIN/SULBACTAM SOD 3,000 MG in 0.9 % SODIUM CHLORIDE 100 ML IV STA (18:21)
[2022-10-18 18:22] LABS: Basophils # (auto) 0.06 K/uL (0.00-0.20); Basophils % (auto) 0.3 %; Immature Granulocytes # (auto) 0.08 K/uL (0.01-0.20); Immature Granulocytes % (auto) 0.4 %; Lymphocytes # (auto) 0.44 K/uL (1.20-3.40); Lymphocytes % (auto) 2.2 %; Monocytes # (auto) 0.98 K/uL (0.11-0.59); Monocytes % (auto) 4.9 %; Neutrophils # (auto) 18.61 K/uL (1.40-6.50); Neutrophils % (auto) 92.2 %; Toxic Vacuolation 1+
[2022-10-18 18:25] LABS: Alanine Aminotransferase 29 U/L (7-52); Albumin Globulin Ratio 0.9 (0.9-2); Albumin Level 3.6 gm/dl (3.4-5.0); Alkaline Phosphatase 131 U/L (34-104); Anion Gap 10 (3-11); Aspartate Aminotransferase 56 U/L (13-39); Bilirubin,Total 0.6 mg/dl (0.2-1.0); Blood Urea Nitrogen 33 mg/dl (6-23); Calcium 9.3 mg/dl (8.6-10.3); Carbon Dioxide 35 mmol/L (21-32); Chloride 97 mmol/L (98-107); Creatinine Clr Calc Pharmacy 52.4 ml/min; Est GFR (African American) 86.3 ml/min; Est GFR (Non-African American) 74.5 ml/min; Glucose 75 mg/dl (70-99(Fasting)); Potassium 4.2 mmol/L (3.5-5.1); Sodium 142 mmol/L (136-145); Total Protein 7.6 gm/dl (6.0-8.3)
[2022-10-18 18:28] LABS: Troponin I High Sensitivity 33.2 pg/ml (0-20)
[2022-10-18 18:37] LABS: INR 1.1 (0.9-1.1); Prothrombin Time 11.6 Seconds (9.0-12.0)
[2022-10-18 18:39] LABS: Adenovirus PCR Not Detected (NotDetected); Bordetella parapertussis PCR Not Detected (NotDetected); Bordetella pertussis PCR Not Detected (NotDetected); Chlamydia pneumoniae PCR Not Detected (NotDetected); Coronavirus 229E PCR Not Detected (NotDetected); Coronavirus CoV-2 (COVID19)PCR Not Detected (NotDetected); Coronavirus HKU1 PCR Not Detected (NotDetected); Coronavirus NL63 PCR Not Detected (NotDetected); Coronavirus OC43PCR Not Detected (NotDetected); Human Metapneumovirus PCR Not Detected (NotDetected); Influenza A PCR Not Detected (NotDetected); Influenza B PCR Not Detected (NotDetected); Mycoplasma pneumoniae PCR Not Detected (NotDetected); Parainfluenza Virus 1 PCR Not Detected (NotDetected); Parainfluenza Virus 2 PCR Not Detected (NotDetected); Parainfluenza Virus 3 PCR Not Detected (NotDetected); Parainfluenza Virus 4 PCR Not Detected (NotDetected); Respiratory Syncytial VirusPCR Not Detected (NotDetected); Rhinovirus/Enterovirus PCR Not Detected (NotDetected)
[2022-10-18] MEDS ORDERED: PIPERACILLIN/TAZOBACTAM 4.5 GM/120 ML BAG IV ONE (19:37)
[2022-10-18] MEDS ORDERED: ACETAMINOPHEN 1,000 MG/100 ML VIAL IV STA (19:37)
[2022-10-18] MEDS ORDERED: methylPREDNISolone 40 MG in SYRINGE 0 ML IV STA (19:40)
[2022-10-18] MEDS ORDERED: SODIUM CHLORIDE 0.45 % 1,000 ML IV STA (19:56)
[2022-10-18 20:16] LABS: Magnesium 1.8 mg/dl (1.7-2.4)
[2022-10-18 20:16] LABS: Base Excess ABG 8.2 mEq/L (-9-1.8); HCO3 ABG 34 mmol/L (19-24); Oxygen Saturation ABG 99.4 % (90-95); PCO2 ABG 53 mmHg (35-46); PO2 ABG 155 mmHg (80-95); pH ABG 7.42 (7.35-7.45)
[2022-10-18 20:18] LABS: Allen Test Pos (Pos)
[2022-10-18 20:37] LABS: Troponin I High Sensitivity 58.6 pg/ml (0-20)
[2022-10-18] MEDS ORDERED: MAGNESIUM SULFATE / D5W 1 GM/100 ML BAG IV STA (20:44)
--- NOTE | 2022-10-18 20:54 | History & Physical Report ---
Date of Service October 18, 2022 Assessment & Plan (1) Acute on chronic respiratory failure with hypoxia and hypercapnia: Plan: Acute on chronic recurrent COPD exacerbation secondary to recurrent aspiration pneumonia Recent bout of Pseudomonas pneumonia status post Levaquin Rx hx chronic pulmonary aspiration status post PEG tube placement on tube feeds Severe sepsis SIRS plus hypotension secondary to above Troponin elevation secondary illness chronic diastolic heart failure, patient on the dry side chronic LBBB hx CAD status post CABG status post bioprosthetic AVR hyperlipidemia, on statin Rx nasopharyngeal cancer status post chemoradiation, in remission hx severe epistaxis status post bilateral sphenopalatine artery embolization chronic anemia, hemoglobin better than baseline secondary to hemoconcentration past tobacco abuse PCU given hypotension CS, Zosyn, Doxycycline MRSA swab, change Doxycycline to Vancomycin if MRSA swab positive Continue aspiration precautions Nebs RTC, steroid course Pulmonary consult RE COPD exacerbation, recurrent admissions (Patient and son may be more receptive to palliative approach to chronic lung disease after specialist input.) IVF Follow troponin DVT prophylaxis. SCDs Re: History severe epistaxis DNR as per discussion with patient Patient son requesting updates for providers. Mr. Anthony Dodson, contact #[phone]. Total critical care time was 45 minutes. Text document was generated using [employer] voice recognition software. It may contain grammatical or spelling errors. Kindly contact undersigned for clarification of any documentation item in question. History of Present Illness Chief Complaint: Coughing, worsening shortness of breath Primary Care Provider: Prudencio Burns MD History obtained from patient and records. Medical history significant for chronic respiratory failure occasional sup plemental home O2 use, chronic diastolic heart failure (EF 50 to 55%, TTE 2020) , chronic LBBB, CAD status post CABG, status post bioprosthetic AVR, COPD as per records, chronic pulmonary aspiration status post PEG tube placement, hypertension, hyperlipidemia, nasopharyngeal cancer status post chemoradiation, chronic anemia (baseline hemoglobin of 12 ), hx severe epistaxis status post sphenopalatine artery embolization, past tobacco abuse. Five admissions at [facility] this year for COPD exacerbation. Recent confinement 2 weeks ago for sepsis, COPD exacerbation secondary to Pseudomonas pneumonia. Patient discharged on Levaquin course. Palliative care consulted during confinement to discuss goals of care. Patient expressed DNR directives. Patient and family not opposed to recurrent confinements secondary to aspiration pneumonia as per conversation with palliative care physician. Patient with persistent cough symptoms productive of yellow sputum on home nurse evaluation 3 days ago. Rhonchi appreciated throughout patient's lung [place]. Patient denies unusual chest pain/SOB. Patient admitted to gargling with water which makes him cough up mucus as per outpatient nurse documentation. Nurse expressed concerns that water could be going down patient's lungs. Outpatient CXR done, results not known to patient. Today, patient had worsening cough, gagging symptoms and 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 Chest pain from coughing. EMS called to patient's home. Lowest O2 sats of 80s Last night, patient noted worsening junky cough symptoms along with worsening 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 Patient denies chest pain. Patient completed COVID-19 vaccination. Not sure about sick contacts. No recent john aspiration episode. O2 sats noted to be 80s by EMS on simple facemask. At the ER, O2 sats noted to be 80s, lowest SBP 40s. Unasyn, Solu-Medrol, and neb treatment administered at the ER. BiPAP initiated at the ER. 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 Allergies Allergy/AdvReac Type Severity Reaction Status Date / Time No Known Allergies Allergy Verified 10/18/22 18:52 Home Medications Medication Instructions Recorded Confirmed Type atorvastatin 40 mg tablet 40 mg feeding tube QPM 09/18/18 10/18/22 History nitroglycerin 0.4 mg sublingual 0.4 mg sublingual UD PRN Chest Pain 09/18/18 10/18/22 History tablet albuterol sulfate 90 mcg/actuation 2 inh inhalation Q6H PRN shortness 05/06/20 10/18/22 Rx aerosol inhaler (ProAir HFA) of breath or wheezing #8.5 grams nutritional supplements 0.08 1 ea feeding tube QID 02/19/21 10/18/22 History gram-2 kcal/mL liquid for tube feed (Nutren 2.0) ipratropium 0.5 mg-albuterol 3 mg 3 ml inhalation Q6H PRN Shortness 09/05/22 10/18/22 History (2.5 mg base)/3 mL nebulization Of Breath soln ibuprofen 100 mg/5 mL oral 0 mg PO Q6H PRN Fever Or Pain 10/18/22 10/18/22 History suspension (Children's Advil) lorazepam 0.5 mg tablet 0.5 mg feeding tube HS PRN Anxiety 10/18/22 10/18/22 History Past Med/Surg History Medical History Acute hypoxemic respiratory failure Acute on chronic diastolic heart failure Acute renal insufficiency JULES (acute kidney injury) CAD (coronary artery disease) Cardiac murmur CHILD FROM RHEUMATIC FEVER CHF (congestive heart failure) Chronic pulmonary aspiration CKD (chronic kidney disease) stage 3, GFR 30-59 ml/min Elevated lactic acid level Former tobacco use Hearing deficit BILAT History of [facility] (myocardial infarction) 2017/ [facility] History of nasopharyngeal cancer s/p radiation, chemo- NO PORT ANYMORE CLEARED NOV 2013 History of rheumatic fever Hyperlipidemia Hypertension Left bundle branch block (LBBB) Palate abnormality prosthetic palate Pneumonia Radiation adverse effect Severe sepsis Shock Surgical History History of cardiac cath 2017 [facility] --> [facility]G - [facility]- follows w/ Dr. Milton- [facility]/ NO STENTS History of cataract surgery History of colonoscopy with polypectomy 09/25/2018. Propofol given, no issues. History of coronary artery bypass graft One vessel - 2016 - [facility] [place] History of heart valve replacement Bioprosthetic aortic valve - [facility]DO 2016 History of shoulder surgery RIGHT History of tonsillectomy History of tooth extraction History of vascular access device NO LONGER HAS PORT Hx of aortic valve replacement Status post insertion of percutaneous endoscopic gastrostomy (PEG) tube PLACED DUE TO PALATE SURGERY- THEN REMOVED 2014 Family History Father Cancer Liver Cancer Social History Smoking Status: Never smoker Tobacco Type: Cigarettes Second Hand Exposure: No; Do You Dip or Chew Tobacco: No; Hx Alcohol Use: No Hx Substance Use: No Preferred Language: Guamanian Communication Ability: Effective Communication Ability Comment: Has tablet Insurance Analyst Required: No Beliefs That Will Affect Care: None marital status: / Current Living Situation: Family Current Living Situation Comment: Patient lives at home with sonAnthony. How many Children do You have: 1 Other Information That Helps Us Care for You: No Feels Safe at Home: Yes Safety Concerns: Feels Safe At This Time Assistive Devices: Cane, Glasses, Hearing Aid - Bilateral and Oxygen - Continuous Review of Systems Review of Systems: As per HPI, all other systems reviewed and negative Physical Exam Physical Exam: GENERAL: Slightly uncomfortable, chronically ill, minimal respiratory distress SKIN: Pallor, warm HEENT: Pale palpebral conjunctivae, no ptosis, dry buccal mucosa, BiPAP in place NECK : Supple, no tenderness CHEST : Decreased breath sounds, no tenderness HEART : RRR, no obvious murmurs ABDOMEN: Some distention, PEG tube in place, nontender EXTREMITIES : No LE swelling/tenderness, no other conspicuous deformities noted NEUROLOGIC : Coherent, no facial asymmetry, mild hearing impairment, gait and stance not assessed Results & Data Results & Data Vital Signs (Past 12 Hours) Vital Signs Temp Pulse Pulse Resp BP Pulse Ox O2 Del Method 10/18/22 19:40 89 19 100 10/18/22 19:40 84/57 L 10/18/22 19:35 71/55 L 10/18/22 19:35 89 19 93 10/18/22 19:31 91 H 20 92 10/18/22 19:31 79/52 L 10/18/22 19:30 92 H 16 93 10/18/22 19:25 93 H 22 98 10/18/22 19:25 69/50 L 10/18/22 19:23 90 24 99 10/18/22 19:23 61/46 L 10/18/22 19:20 89 22 98 10/18/22 19:19 50/37 L 10/18/22 19:19 90 20 98 10/18/22 19:15 92 H 29 H 80 L 10/18/22 19:15 58/39 L 10/18/22 19:10 99 H 17 99 10/18/22 19:02 84/52 L 10/18/22 19:02 97 H 23 92 10/18/22 19:00 99 H 21 98 10/18/22 19:00 54/42 L 10/18/22 18:50 108 H 21 94 10/18/22 18:46 129/83 10/18/22 18:46 110 H 30 H 79 L 10/18/22 18:40 111 H 21 76 L 10/18/22 18:30 110 H 21 80 L 10/18/22 18:30 111/75 10/18/22 18:24 121 H 15 82 L 10/18/22 18:24 106/79 10/18/22 18:21 126 H 39 H 10/18/22 18:13 78 L 10/18/22 17:50 101 H 25 H 89 L 10/18/22 17:40 99 H 19 91 BiPAP 10/18/22 17:30 101 H 21 85 L 10/18/22 17:30 73/47 L 10/18/22 17:20 108 H 23 84 L 10/18/22 17:10 110 H 25 H 81 L 10/18/22 17:06 72/46 L 10/18/22 17:06 110 H 25 H 79 L 10/18/22 17:04 112 H 19 76 L 10/18/22 17:39 99 H 20 91 BiPAP 10/18/22 17:35 100 H 24 91 10/18/22 17:04 114 H 10/18/22 17:23 Non-rebreather 10/18/22 17:23 37.9 C H 113 H 20 72/46 L 80 L Non-rebreather 10/18/22 17:22 80 L Non-rebreather O2 Flow Rate FiO2 10/18/22 19:40 10/18/22 19:40 10/18/22 19:35 10/18/22 19:35 10/18/22 19:31 10/18/22 19:31 10/18/22 19:30 10/18/22 19:25 10/18/22 19:25 10/18/22 19:23 10/18/22 19:23 10/18/22 19:20 10/18/22 19:19 10/18/22 19:19 10/18/22 19:15 10/18/22 19:15 10/18/22 19:10 10/18/22 19:02 10/18/22 19:02 10/18/22 19:00 10/18/22 19:00 10/18/22 18:50 10/18/22 18:46 10/18/22 18:46 10/18/22 18:40 10/18/22 18:30 10/18/22 18:30 10/18/22 18:24 10/18/22 18:24 10/18/22 18:21 10/18/22 18:13 10/18/22 17:50 10/18/22 17:40 80 10/18/22 17:30 10/18/22 17:30 10/18/22 17:20 10/18/22 17:10 10/18/22 17:06 10/18/22 17:06 10/18/22 17:04 10/18/22 17:39 80 10/18/22 17:35 80 10/18/22 17:04 10/18/22 17:23 15 10/18/22 17:23 15 10/18/22 17:22 15 Laboratory Results Laboratory Results WBC 20.17 K/ul (4.8-10.8) H 10/18/22 17:10 RBC 4.89 M/uL (4.70-6.10) 10/18/22 17:10 Hgb 15.1 g/dl (14.0-18.0) 10/18/22 17:10 Hct 46.3 % (42.0-52.0) 10/18/22 17:10 MCV 94.7 fL (80.0-100.0) 10/18/22 17:10 MCH 30.9 pg (25.0-34.0) 10/18/22 17:10 MCHC 32.6 g/dL (32.0-36.0) 10/18/22 17:10 RDW Std Deviation 47.6 fL (36.4-46.3) H 10/18/22 17:10 RDW Coeff of Navid 13.6 % (11.5-14.5) 10/18/22 17:10 Plt Count 142 K/uL (130-400) 10/18/22 17:10 MPV 11.3 fL (9.4-12.4) 10/18/22 17:10 Immature Gran % (Auto) 0.4 % 10/18/22 17:10 Neut % (Auto) 92.2 % 10/18/22 17:10 Lymph % (Auto) 2.2 % 10/18/22 17:10 [place] % (Auto) 4.9 % 10/18/22 17:10 Eos % (Auto) 0.0 % 10/18/22 17:10 Baso % (Auto) 0.3 % 10/18/22 17:10 Neut # (Auto) 18.61 K/uL (1.40-6.50) H 10/18/22 17:10 Lymph # (Auto) 0.44 K/uL (1.20-3.40) L 10/18/22 17:10 [place] # (Auto) 0.98 K/uL (0.11-0.59) H 10/18/22 17:10 Eos # (Auto) 0.00 K/uL (0.00-0.50) 10/18/22 17:10 Baso # (Auto) 0.06 K/uL (0.00-0.20) 10/18/22 17:10 Immature Gran # (Auto) 0.08 K/uL (0.01-0.20) 10/18/22 17:10 Toxic Vacuolation 1+ 10/18/22 17:10 PT 11.6 Seconds (9.0-12.0) 10/18/22 17:10 INR 1.1 (0.9-1.1) 10/18/22 17:10 ABG pH 7.42 (7.35-7.45) 10/18/22 20:06 ABG pCO2 53 mmHg (35-46) H 10/18/22 20:06 ABG pO2 155 mmHg (80-95) H 10/18/22 20:06 ABG HCO3 34 mmol/L (19-24) H 10/18/22 20:06 ABG O2 Saturation 99.4 % (90-95) H 10/18/22 20:06 ABG Base Excess 8.2 mEq/L (-9-1.8) H 10/18/22 20:06 Reed Test Pos (Pos) 10/18/22 20:06 VBG pH 7.35 (7.36-7.41) L 10/18/22 17:45 VBG pCO2 71 mmHg (38-50) H 10/18/22 17:45 VBG pO2 28 mmHg 10/18/22 17:45 VBG HCO3 39 mmol/L 10/18/22 17:45 VBG O2 Saturation < 60.0 % 10/18/22 17:45 VBG Base Excess 10.6 mEq/L 10/18/22 17:45 Oxygen Given 80% 10/18/22 20:06 Sodium 142 mmol/L (136-145) 10/18/22 17:10 Potassium 4.2 mmol/L (3.5-5.1) 10/18/22 17:10 Chloride 97 mmol/L (98-107) L 10/18/22 17:10 Carbon Dioxide 35 mmol/L (21-32) H 10/18/22 17:10 Anion Gap 10 (3-11) 10/18/22 17:10 BUN 33 mg/dl (6-23) H 10/18/22 17:10 Creatinine 0.97 mg/dl (0.6-1.4) 10/18/22 17:10 Est Cr Clr Drug Dosing 52.4 ml/min 10/18/22 17:10 Est GFR ( Amer) 86.3 ml/min 10/18/22 17:10 Est GFR (Non-Af Amer) 74.5 ml/min 10/18/22 17:10 BUN/Creatinine Ratio 34.0 (10-20) H 10/18/22 17:10 Glucose 75 mg/dl (70-99(Fasting)) 10/18/22 17:10 Lactate 0.8 mmol/L (0.4-2.0) 10/18/22 20:06 Calcium 9.3 mg/dl (8.6-10.3) 10/18/22 17:10 Magnesium 1.8 mg/dl (1.7-2.4) 10/18/22 19:32 Total Bilirubin 0.6 mg/dl (0.2-1.0) 10/18/22 17:10 AST 56 U/L (13-39) H 10/18/22 17:10 ALT 29 U/L (7-52) 10/18/22 17:10 Alkaline Phosphatase 131 U/L (34-104) H 10/18/22 17:10 Troponin I High Sens 58.6 pg/ml (0-20) H* D 10/18/22 19:32 B-Natriuretic Peptide 88 pg/ml (0-100) 10/18/22 17:10 Total Protein 7.6 gm/dl (6.0-8.3) 10/18/22 17:10 Albumin 3.6 gm/dl (3.4-5.0) 10/18/22 17:10 Globulin 4.0 gm/dl (2.5-4.0) 10/18/22 17:10 Albumin/Globulin Ratio 0.9 (0.9-2) 10/18/22 17:10 Procalcitonin 1.40 ng/ml (0-0.5) H 10/18/22 17:10 Adenovirus (PCR) Not Detected (NotDetected) 10/18/22 17:08 B. pertussis DNA (PCR) Not Detected (NotDetected) 10/18/22 17:08 B.parapertussis DNA PCR Not Detected (NotDetected) 10/18/22 17:08 C. pneumoniae DNA (PCR) Not Detected (NotDetected) 10/18/22 17:08 Coronavirus OC43 (PCR) Not Detected (NotDetected) 10/18/22 17:08 Coronavirus HKU1 (PCR) Not Detected (NotDetected) 10/18/22 17:08 Coronavirus 229E (PCR) Not Detected (NotDetected) 10/18/22 17:08 SARS-CoV-2 (PCR) Not Detected (NotDetected) 10/18/22 17:08 Coronavirus NL63 (PCR) Not Detected (NotDetected) 10/18/22 17:08 Human Metapneumovir PCR Not Detected (NotDetected) 10/18/22 17:08 Influenza Type A (PCR) Not Detected (NotDetected) 10/18/22 17:08 Influenza Type B (PCR) Not Detected (NotDetected) 10/18/22 17:08 M. pneumoniae (PCR) Not Detected (NotDetected) 10/18/22 17:08 Parainfluenza 1 (PCR) Not Detected (NotDetected) 10/18/22 17:08 Parainfluenza 2 (PCR) Not Detected (NotDetected) 10/18/22 17:08 Parainfluenza 3 (PCR) Not Detected (NotDetected) 10/18/22 17:08 Parainfluenza 4 (PCR) Not Detected (NotDetected) 10/18/22 17:08 RSV (PCR) Not Detected (NotDetected) 10/18/22 17:08 Entero/Rhino (PCR) Not Detected (NotDetected) 10/18/22 17:08 Impressions Chest X-Ray 10/18/22 17:01 XR chest 1V portable HISTORY: 77 years-old Male Dyspnea acute shortness of breath COMPARISON: 10/03/2022, 09/06/2022. TECHNIQUE: AP view of the chest FINDINGS: Cardiomediastinal and hilar silhouettes are unchanged. Prior median sternotomy. Chronic reticular nodular opacities. Mildly progressed airspace opacities of the right lung base. No pneumothorax or large pleural effusion. Degenerative changes of the shoulders and spine. IMPRESSION: 1. Mildly progressed right basilar opacities suggestive of atelectasis versus pneumonia. 2. Chronic reticulonodular densities again noted. ACT 112: Negative or not required by law. The above report was generated using voice recognition software. It may contain grammatical, syntax or spelling errors. Electronically signed by: Marcel Cloud M.D. 10/18/2022 5:27 PM Diagnostic Findings EKG as per my interpretation : Rate 100, NSR, normal axis, no ischemia, low voltage
[2022-10-18] MEDS ORDERED: LORazepam 2 MG/1 ML VIAL IV PRN (21:00)
[2022-10-18] MEDS ORDERED: ACETAMINOPHEN SUSP 325 MG/10.15 ML UDC PO PRN (21:00)
[2022-10-18] MEDS ORDERED: DOXYCYCLINE HYCLATE 100 MG in DEXTROSE 5% 100 ML IV STA (21:10)
[2022-10-18] MEDS ORDERED: SODIUM CHLORIDE 0.45 % 1,000 ML IV ONE (22:00)
[2022-10-18] MEDS: ATORVASTATIN 40 MG TAB PEG SCH (22:51)
[2022-10-19] MEDS ORDERED: XOPENEX/ATROVENT 1.25mg/0.5MG NEB COMBO NEB SCH (01:00)
[2022-10-19] MEDS: LEVALBUTEROL 1.25 MG/3 ML NEB NEB SCH ×4 (02:28→19:35)
[2022-10-19] MEDS: IPRATROPIUM BROMIDE NEB SOLN 0.02% 2.5 ML VIAL INH SCH ×4 (02:28→19:35)
[2022-10-19] MEDS: PIPERACILLIN/TAZOBACTAM 4.5 GM in DEXTROSE 5% 100 ML IV SCH ×3 (03:05→18:46)
[2022-10-19 03:51] LABS: Appearance Urine Clear (Clear); Bacteria Urine Automated Negative (Negative); Bilirubin Urine Negative (Negative); Blood Urine Negative (Negative); Color Urine Yellow; Glucose Urine UA Negative (Negative); Ketones Urine Negative (Negative); Leukocyte Esterase Urine Negative (Negative); Nitrite Urine Negative (Negative); Protein Urine Trace (Negative); RBC Urine Automated 0-4 /hpf (0-4); Specific Gravity Urine 1.019 (1.000-1.030); Urobilinogen Urine Negative (Negative)
[2022-10-19 05:25] LABS: BUN Creatinine Ratio 34.1 (10-20); Calcium 7.9 mg/dl (8.6-10.3); Creatinine Clr Calc Pharmacy 54.2 ml/min; Est GFR (African American) 95.4 ml/min; Est GFR (Non-African American) 82.3 ml/min; Potassium 4.3 mmol/L (3.5-5.1)
[2022-10-19 06:18] LABS: Basophils # (auto) 0.04 K/uL (0.00-0.20); Basophils % (auto) 0.2 %; Hematocrit (blood only) 37.4 % (42.0-52.0); Hemoglobin 12.3 g/dl (14.0-18.0); Immature Granulocytes # (auto) 0.14 K/uL (0.01-0.20); Immature Granulocytes % (auto) 0.7 %; Lymphocytes # (auto) 0.25 K/uL (1.20-3.40); Lymphocytes % (auto) 1.2 %; Mean Corpuscular Hemoglobin 31.2 pg (25.0-34.0); Mean Corpuscular Hgb Conc 32.9 g/dL (32.0-36.0); Mean Corpuscular Volume 94.9 fL (80.0-100.0); Mean Platelet Volume 11.2 fL (9.4-12.4); Monocytes # (auto) 0.49 K/uL (0.11-0.59); Monocytes % (auto) 2.3 %; Neutrophils # (auto) 20.42 K/uL (1.40-6.50); Neutrophils % (auto) 95.6 %; Platelet Count 98 K/uL (130-400); Platelet Estimate Decreased (Normal); RDW Coefficient of Variation 13.4 % (11.5-14.5); RDW Standard Deviation 47.1 fL (36.4-46.3); Red Blood Count 3.94 M/uL (4.70-6.10); White Blood Count 21.34 K/ul (4.8-10.8)
--- NOTE | 2022-10-19 08:00 | Hospitalist Progress Note ---
Date of Service October 19, 2022 Assessment & Plan (1) Acute on chronic respiratory failure with hypoxia and hypercapnia: Plan: Acute on chronic recurrent COPD exacerbation and recurrent aspiration pneumonia Recent bout of Pseudomonas pneumonia status post Levaquin Rx hx chronic pulmonary aspiration status post PEG tube placement on tube feeds Severe sepsis SIRS plus hypotension secondary to above PCU given hypotension CS, Zosyn, Doxycycline MRSA swab, change Doxycycline to Vancomycin if MRSA swab positiv mrsa - negative WBC elevated procal 1.4 sputum cultx ordered Continue aspiration precautions Nebs RTC, steroid course Pulmonary consult RE COPD exacerbation, recurrent admissions (Patient and son may be more receptive to palliative approach to chronic lung disease after specialist input.) IVF Troponin elevation secondary illness repeat troponin reviewed chronic diastolic heart failure, patient on the dry side chronic LBBB hx CAD status post CABG status post bioprosthetic AVR hyperlipidemia, on statin Rx nasopharyngeal cancer status post chemoradiation, in remission hx severe epistaxis status post bilateral sphenopalatine artery embolization chronic anemia, hemoglobin better than baseline secondary to hemoconcentration past tobacco abuse DVT prophylaxis. SCDs Re: History severe epistaxis DNR as per discussion of admitting provider with the patient Patient's son - Mr. Anthony Dodson, contact #[phone]. Admission and Anticipated Discharge Date Admission Date: October 18, 2022 Subjective Pt seen in follow up of resp. failure, copd exacerb., chronic aspi., in ED initially on bipap Pulmonary medicine also consulted Currently sitting up in bed, in NAD, getting resp. treatment Says he feels comfortable, coughing up some sputum/ opaque No chest pain and no shortness of breath at this time, however on 8L of suppl. O2 No abd. pain, or nausea Says he knows he is aspirating at home Review of Systems Review of Systems: All systems reviewed & are unremarkable except as noted in Subjective Physical Exam Physical Exam: GENERAL: elderly, thin, +chronically ill appearing, in NAD HEENT: NC/AT, pale palpebral conjunctivae NECK : Supple, no tenderness CHEST : coarse breath sounds diffuse HEART : RRR, no obvious murmurs ABDOMEN: Some distention, PEG tube in place, nontender EXTREMITIES : No LE swelling/tenderness, moves extremities SKIN: Pallor, warm NEUROLOGIC : awake, alert, oriented, no facial asymmetry, mild hearing impairment, moves extremities Results & Data Results & Data Vital Signs (Past 12 Hours) Vital Signs Temp Pulse Pulse Pulse Resp BP BP 10/19/22 07:52 36.4 C L 61 22 106/65 10/19/22 07:24 68 20 10/19/22 04:47 72 17 118/71 10/19/22 02:55 67 10/19/22 02:37 68 23 10/19/22 02:31 72 23 10/19/22 00:21 36.7 C 76 18 103/64 10/18/22 23:51 75 10/18/22 23:18 10/18/22 22:30 90 27 H 10/18/22 22:10 36.4 C L 74 22 106/68 10/18/22 21:40 77 20 10/18/22 21:40 103/61 10/18/22 21:35 76 15 10/18/22 21:35 115/72 10/18/22 21:30 77 19 10/18/22 21:30 109/67 10/18/22 21:25 77 18 10/18/22 21:25 95/60 L 10/18/22 21:20 77 19 10/18/22 21:20 79/51 L 10/18/22 21:15 78 22 10/18/22 21:15 86/53 L 10/18/22 21:10 79 18 10/18/22 21:10 62/37 L 10/18/22 21:06 78 17 10/18/22 21:06 48/31 L 10/18/22 21:01 79 10/18/22 21:05 79 20 10/18/22 21:00 81 19 10/18/22 21:00 45/29 L 10/18/22 20:55 83 23 10/18/22 20:54 55/37 L 10/18/22 20:54 84 25 H 10/18/22 20:50 83 17 10/18/22 20:46 81 17 10/18/22 20:46 51/31 L 10/18/22 20:45 81 17 10/18/22 20:40 81 21 10/18/22 20:35 81 18 10/18/22 20:30 85 17 10/18/22 20:30 85/55 L 10/18/22 20:25 87 19 10/18/22 20:20 90 19 10/18/22 20:15 96 H 29 H 09/11/23 20:15 141/80 H 10/18/22 20:10 89 19 10/18/22 20:10 120/73 10/18/22 20:05 92 H 20 10/18/22 20:05 121/76 10/18/22 20:00 89 23 10/18/22 20:00 80/57 L Pulse Ox O2 Del Method O2 Flow Rate FiO2 10/19/22 07:52 97 Oxymask 6 10/19/22 07:24 95 Oxymask 8 10/19/22 04:47 98 Oxymask 8 10/19/22 02:55 98 Oxymask 8 10/19/22 02:37 98 35 10/19/22 02:31 98 BiPAP 35 10/19/22 00:21 99 BiPAP 10/18/22 23:51 10/18/22 23:18 BiPAP 10/18/22 22:30 98 65 10/18/22 22:10 96 BiPAP 10/18/22 21:40 100 10/18/22 21:40 10/18/22 21:35 100 10/18/22 21:35 10/18/22 21:30 100 10/18/22 21:30 10/18/22 21:25 100 10/18/22 21:25 10/18/22 21:20 99 10/18/22 21:20 10/18/22 21:15 99 10/18/22 21:15 10/18/22 21:10 96 10/18/22 21:10 10/18/22 21:06 94 10/18/22 21:06 10/18/22 21:01 10/18/22 21:05 93 10/18/22 21:00 89 L 10/18/22 21:00 10/18/22 20:55 88 L 10/18/22 20:54 10/18/22 20:54 83 L 10/18/22 20:50 85 L 10/18/22 20:46 87 L 10/18/22 20:46 10/18/22 20:45 88 L 10/18/22 20:40 94 10/18/22 20:35 99 10/18/22 20:30 100 10/18/22 20:30 10/18/22 20:25 100 10/18/22 20:20 100 09/11/23 20:15 100 10/18/22 20:15 10/18/22 20:10 10/18/22 20:10 10/18/22 20:05 100 10/18/22 20:05 10/18/22 20:00 100 10/18/22 20:00 Laboratory Results 10/19/22 10/19/22 10/19/22 Range/Units 04:10 04:05 04:05 WBC 21.34 H (4.8-10.8) K/ul RBC 3.94 L (4.70-6.10) M/uL Hgb 12.3 L (14.0-18.0) g/dl Hct 37.4 L (42.0-52.0) % MCV 94.9 (80.0-100.0) fL MCH 31.2 (25.0-34.0) pg MCHC 32.9 (32.0-36.0) g/dL RDW Std Deviation 47.1 H (36.4-46.3) fL RDW Coeff of Navid 13.4 (11.5-14.5) % Plt Count 98 L (130-400) K/uL MPV 11.2 (9.4-12.4) fL Immature Gran % (Auto) 0.7 % Neut % (Auto) 95.6 % Lymph % (Auto) 1.2 % Hooker % (Auto) 2.3 % Eos % (Auto) 0.0 % Baso % (Auto) 0.2 % Neut # (Auto) 20.42 H (1.40-6.50) K/uL Lymph # (Auto) 0.25 L (1.20-3.40) K/uL [place]er # (Auto) 0.49 (0.11-0.59) K/uL Eos # (Auto) 0.00 (0.00-0.50) K/uL Baso # (Auto) 0.04 (0.00-0.20) K/uL Immature Gran # (Auto) 0.14 (0.01-0.20) K/uL Toxic Vacuolation Platelet Estimate Decreased L (Normal) PT (9.0-12.0) Seconds INR (0.9-1.1) ABG pH (7.35-7.45) ABG pCO2 (35-46) mmHg ABG pO2 (80-95) mmHg ABG HCO3 (19-24) mmol/L ABG O2 Saturation (90-95) % ABG Base Excess (-9-1.8) mEq/L Reed Test (Pos) VBG pH (7.36-7.41) VBG pCO2 (38-50) mmHg VBG pO2 mmHg VBG HCO3 mmol/L VBG O2 Saturation % VBG Base Excess mEq/L Oxygen Given Sodium 136 (136-145) mmol/L Potassium 4.3 (3.5-5.1) mmol/L Chloride 98 (98-107) mmol/L Carbon Dioxide 30 (21-32) mmol/L Anion Gap 8 (3-11) BUN 30 H (6-23) mg/dl Creatinine 0.88 (0.6-1.4) mg/dl Est Cr Clr Drug Dosing 54.2 ml/min Est GFR ( Amer) 95.4 ml/min Est GFR (Non-Af Amer) 82.3 ml/min BUN/Creatinine Ratio 34.1 H (10-20) Glucose 140 H (70-99(Fasting)) mg/dl Lactate (0.4-2.0) mmol/L Calcium 7.9 L (8.6-10.3) mg/dl Magnesium (1.7-2.4) mg/dl Total Bilirubin (0.2-1.0) mg/dl AST (13-39) U/L ALT (7-52) U/L Alkaline Phosphatase (34-104) U/L Troponin I High Sens (0-20) pg/ml B-Natriuretic Peptide (0-100) pg/ml Total Protein (6.0-8.3) gm/dl Albumin (3.4-5.0) gm/dl Globulin (2.5-4.0) gm/dl Albumin/Globulin Ratio (0.9-2) Procalcitonin (0-0.5) ng/ml Urine Color Urine Appearance (Clear) Urine pH (4.5-7.5) Ur Specific [place] (1.000-1.030) Urine Protein (Negative) Urine Glucose (UA) (Negative) Urine Ketones (Negative) Urine Blood (Negative) Urine Nitrite (Negative) Urine Bilirubin (Negative) Urine Urobilinogen (Negative) Ur Leukocyte Esterase (Negative) Urine WBC (Auto) (0-5) /hpf Urine RBC (Auto) (0-4) /hpf U Hyaline Cast (Auto) (0-5) /lpf U Epithel Cells (Auto) (0-5) /lpf Urine Bacteria (Auto) (Negative) Nasal Screen MRSA (PCR) Negative (Negative) Adenovirus (PCR) (NotDetected) B. pertussis DNA (PCR) (NotDetected) B.parapertussis DNA PCR (NotDetected) C. pneumoniae DNA (PCR) (NotDetected) Coronavirus OC43 (PCR) (NotDetected) Coronavirus HKU1 (PCR) (NotDetected) Coronavirus 229E (PCR) (NotDetected) SARS-CoV-2 (PCR) (NotDetected) Coronavirus NL63 (PCR) (NotDetected) Human Metapneumovir PCR (NotDetected) Influenza Type A (PCR) (NotDetected) Influenza Type B (PCR) (NotDetected) M. pneumoniae (PCR) (NotDetected) Parainfluenza 1 (PCR) (NotDetected) Parainfluenza 2 (PCR) (NotDetected) Parainfluenza 3 (PCR) (NotDetected) Parainfluenza 4 (PCR) (NotDetected) RSV (PCR) (NotDetected) Entero/Rhino (PCR) (NotDetected) 10/19/22 10/19/22 10/18/22 Range/Units 03:30 00:44 20:06 WBC (4.8-10.8) K/ul RBC (4.70-6.10) M/uL Hgb (14.0-18.0) g/dl Hct (42.0-52.0) % MCV (80.0-100.0) fL MCH (25.0-34.0) pg MCHC (32.0-36.0) g/dL RDW Std Deviation (36.4-46.3) fL RDW Coeff of Navid (11.5-14.5) % Plt Count (130-400) K/uL MPV (9.4-12.4) fL Immature Gran % (Auto) % Neut % (Auto) % Lymph % (Auto) % [place] % (Auto) % Eos % (Auto) % Baso % (Auto) % Neut # (Auto) (1.40-6.50) K/uL Lymph # (Auto) (1.20-3.40) K/uL [place] # (Auto) (0.11-0.59) K/uL Eos # (Auto) (0.00-0.50) K/uL Baso # (Auto) (0.00-0.20) K/uL Immature Gran # (Auto) (0.01-0.20) K/uL Toxic Vacuolation Platelet Estimate (Normal) PT (9.0-12.0) Seconds INR (0.9-1.1) ABG pH 7.42 (7.35-7.45) ABG pCO2 53 H (35-46) mmHg ABG pO2 155 H (80-95) mmHg ABG HCO3 34 H (19-24) mmol/L ABG O2 Saturation 99.4 H (90-95) % ABG Base Excess 8.2 H (-9-1.8) mEq/L Reed Test Pos (Pos) VBG pH (7.36-7.41) VBG pCO2 (38-50) mmHg VBG pO2 mmHg VBG HCO3 mmol/L VBG O2 Saturation % VBG Base Excess mEq/L Oxygen Given 80% Sodium (136-145) mmol/L Potassium (3.5-5.1) mmol/L Chloride (98-107) mmol/L Carbon Dioxide (21-32) mmol/L Anion Gap (3-11) BUN (6-23) mg/dl Creatinine (0.6-1.4) mg/dl Est Cr Clr Drug Dosing ml/min Est GFR ( Amer) ml/min Est GFR (Non-Af Amer) ml/min BUN/Creatinine Ratio (10-20) Glucose (70-99(Fasting)) mg/dl Lactate (0.4-2.0) mmol/L Calcium (8.6-10.3) mg/dl Magnesium (1.7-2.4) mg/dl Total Bilirubin (0.2-1.0) mg/dl AST (13-39) U/L ALT (7-52) U/L Alkaline Phosphatase (34-104) U/L Troponin I High Sens 57.9 H* (0-20) pg/ml B-Natriuretic Peptide (0-100) pg/ml Total Protein (6.0-8.3) gm/dl Albumin (3.4-5.0) gm/dl Globulin (2.5-4.0) gm/dl Albumin/Globulin Ratio (0.9-2) Procalcitonin (0-0.5) ng/ml Urine Color Yellow Urine Appearance Clear (Clear) Urine pH 6.0 (4.5-7.5) Ur Specific [place] 1.019 (1.000-1.030) Urine Protein Trace H (Negative) Urine Glucose (UA) Negative (Negative) Urine Ketones Negative (Negative) Urine Blood Negative (Negative) Urine Nitrite Negative (Negative) Urine Bilirubin Negative (Negative) Urine Urobilinogen Negative (Negative) Ur Leukocyte Esterase Negative (Negative) Urine WBC (Auto) 1-5 (0-5) /hpf Urine RBC (Auto) 0-4 (0-4) /hpf U Hyaline Cast (Auto) 1-5 (0-5) /lpf U Epithel Cells (Auto) 10-20 H (0-5) /lpf Urine Bacteria (Auto) Negative (Negative) Nasal Screen MRSA (PCR) (Negative) Adenovirus (PCR) (NotDetected) B. pertussis DNA (PCR) (NotDetected) B.parapertussis DNA PCR (NotDetected) C. pneumoniae DNA (PCR) (NotDetected) Coronavirus OC43 (PCR) (NotDetected) Coronavirus HKU1 (PCR) (NotDetected) Coronavirus 229E (PCR) (NotDetected) SARS-CoV-2 (PCR) (NotDetected) Coronavirus NL63 (PCR) (NotDetected) Human Metapneumovir PCR (NotDetected) Influenza Type A (PCR) (NotDetected) Influenza Type B (PCR) (NotDetected) M. pneumoniae (PCR) (NotDetected) Parainfluenza 1 (PCR) (NotDetected) Parainfluenza 2 (PCR) (NotDetected) Parainfluenza 3 (PCR) (NotDetected) Parainfluenza 4 (PCR) (NotDetected) RSV (PCR) (NotDetected) Entero/Rhino (PCR) (NotDetected) 10/18/22 10/18/22 10/18/22 Range/Units 20:06 19:32 17:45 WBC (4.8-10.8) K/ul RBC (4.70-6.10) M/uL Hgb (14.0-18.0) g/dl Hct (42.0-52.0) % MCV (80.0-100.0) fL MCH (25.0-34.0) pg MCHC (32.0-36.0) g/dL RDW Std Deviation (36.4-46.3) fL RDW Coeff of Navid (11.5-14.5) % Plt Count (130-400) K/uL MPV (9.4-12.4) fL Immature Gran % (Auto) % Neut % (Auto) % Lymph % (Auto) % [place] % (Auto) % Eos % (Auto) % Baso % (Auto) % Neut # (Auto) (1.40-6.50) K/uL Lymph # (Auto) (1.20-3.40) K/uL [place] # (Auto) (0.11-0.59) K/uL Eos # (Auto) (0.00-0.50) K/uL Baso # (Auto) (0.00-0.20) K/uL Immature Gran # (Auto) (0.01-0.20) K/uL Toxic Vacuolation Platelet Estimate (Normal) PT (9.0-12.0) Seconds INR (0.9-1.1) ABG pH (7.35-7.45) ABG pCO2 (35-46) mmHg ABG pO2 (80-95) mmHg ABG HCO3 (19-24) mmol/L ABG O2 Saturation (90-95) % ABG Base Excess (-9-1.8) mEq/L Reed Test (Pos) VBG pH 7.35 L (7.36-7.41) VBG pCO2 71 H (38-50) mmHg VBG pO2 28 mmHg VBG HCO3 39 mmol/L VBG O2 Saturation < 60.0 % VBG Base Excess 10.6 mEq/L Oxygen Given Sodium (136-145) mmol/L Potassium (3.5-5.1) mmol/L Chloride (98-107) mmol/L Carbon Dioxide (21-32) mmol/L Anion Gap (3-11) BUN (6-23) mg/dl Creatinine (0.6-1.4) mg/dl Est Cr Clr Drug Dosing ml/min Est GFR ( Amer) ml/min Est GFR (Non-Af Amer) ml/min BUN/Creatinine Ratio (10-20) Glucose (70-99(Fasting)) mg/dl Lactate 0.8 (0.4-2.0) mmol/L Calcium (8.6-10.3) mg/dl Magnesium 1.8 (1.7-2.4) mg/dl Total Bilirubin (0.2-1.0) mg/dl AST (13-39) U/L ALT (7-52) U/L Alkaline Phosphatase (34-104) U/L Troponin I High Sens 58.6 H* D (0-20) pg/ml B-Natriuretic Peptide (0-100) pg/ml Total Protein (6.0-8.3) gm/dl Albumin (3.4-5.0) gm/dl Globulin (2.5-4.0) gm/dl Albumin/Globulin Ratio (0.9-2) Procalcitonin (0-0.5) ng/ml Urine Color Urine Appearance (Clear) Urine pH (4.5-7.5) Ur Specific [place] (1.000-1.030) Urine Protein (Negative) Urine Glucose (UA) (Negative) Urine Ketones (Negative) Urine Blood (Negative) Urine Nitrite (Negative) Urine Bilirubin (Negative) Urine Urobilinogen (Negative) Ur Leukocyte Esterase (Negative) Urine WBC (Auto) (0-5) /hpf Urine RBC (Auto) (0-4) /hpf U Hyaline Cast (Auto) (0-5) /lpf U Epithel Cells (Auto) (0-5) /lpf Urine Bacteria (Auto) (Negative) Nasal Screen MRSA (PCR) (Negative) Adenovirus (PCR) (NotDetected) B. pertussis DNA (PCR) (NotDetected) B.parapertussis DNA PCR (NotDetected) C. pneumoniae DNA (PCR) (NotDetected) Coronavirus OC43 (PCR) (NotDetected) Coronavirus HKU1 (PCR) (NotDetected) Coronavirus 229E (PCR) (NotDetected) SARS-CoV-2 (PCR) (NotDetected) Coronavirus NL63 (PCR) (NotDetected) Human Metapneumovir PCR (NotDetected) Influenza Type A (PCR) (NotDetected) Influenza Type B (PCR) (NotDetected) M. pneumoniae (PCR) (NotDetected) Parainfluenza 1 (PCR) (NotDetected) Parainfluenza 2 (PCR) (NotDetected) Parainfluenza 3 (PCR) (NotDetected) Parainfluenza 4 (PCR) (NotDetected) RSV (PCR) (NotDetected) Entero/Rhino (PCR) (NotDetected) 10/18/22 10/18/22 10/18/22 Range/Units 17:10 17:10 17:10 WBC (4.8-10.8) K/ul RBC (4.70-6.10) M/uL Hgb (14.0-18.0) g/dl Hct (42.0-52.0) % MCV (80.0-100.0) fL MCH (25.0-34.0) pg MCHC (32.0-36.0) g/dL RDW Std Deviation (36.4-46.3) fL RDW Coeff of Navid (11.5-14.5) % Plt Count (130-400) K/uL MPV (9.4-12.4) fL Immature Gran % (Auto) % Neut % (Auto) % Lymph % (Auto) % [place] % (Auto) % Eos % (Auto) % Baso % (Auto) % Neut # (Auto) (1.40-6.50) K/uL Lymph # (Auto) (1.20-3.40) K/uL [place] # (Auto) (0.11-0.59) K/uL Eos # (Auto) (0.00-0.50) K/uL Baso # (Auto) (0.00-0.20) K/uL Immature Gran # (Auto) (0.01-0.20) K/uL Toxic Vacuolation Platelet Estimate (Normal) PT (9.0-12.0) Seconds INR (0.9-1.1) ABG pH (7.35-7.45) ABG pCO2 (35-46) mmHg ABG pO2 (80-95) mmHg ABG HCO3 (19-24) mmol/L ABG O2 Saturation (90-95) % ABG Base Excess (-9-1.8) mEq/L Reed Test (Pos) VBG pH (7.36-7.41) VBG pCO2 (38-50) mmHg VBG pO2 mmHg VBG HCO3 mmol/L VBG O2 Saturation % VBG Base Excess mEq/L Oxygen Given Sodium 142 (136-145) mmol/L Potassium 4.2 (3.5-5.1) mmol/L Chloride 97 L (98-107) mmol/L Carbon Dioxide 35 H (21-32) mmol/L Anion Gap 10 (3-11) BUN 33 H (6-23) mg/dl Creatinine 0.97 (0.6-1.4) mg/dl Est Cr Clr Drug Dosing 52.4 ml/min Est GFR ( Amer) 86.3 ml/min Est GFR (Non-Af Amer) 74.5 ml/min BUN/Creatinine Ratio 34.0 H (10-20) Glucose 75 (70-99(Fasting)) mg/dl Lactate (0.4-2.0) mmol/L Calcium 9.3 (8.6-10.3) mg/dl Magnesium (1.7-2.4) mg/dl Total Bilirubin 0.6 (0.2-1.0) mg/dl AST 56 H (13-39) U/L ALT 29 (7-52) U/L Alkaline Phosphatase 131 H (34-104) U/L Troponin I High Sens 33.2 H (0-20) pg/ml B-Natriuretic Peptide 88 (0-100) pg/ml Total Protein 7.6 (6.0-8.3) gm/dl Albumin 3.6 (3.4-5.0) gm/dl Globulin 4.0 (2.5-4.0) gm/dl Albumin/Globulin Ratio 0.9 (0.9-2) Procalcitonin 1.40 H (0-0.5) ng/ml Urine Color Urine Appearance (Clear) Urine pH (4.5-7.5) Ur Specific [place] (1.000-1.030) Urine Protein (Negative) Urine Glucose (UA) (Negative) Urine Ketones (Negative) Urine Blood (Negative) Urine Nitrite (Negative) Urine Bilirubin (Negative) Urine Urobilinogen (Negative) Ur Leukocyte Esterase (Negative) Urine WBC (Auto) (0-5) /hpf Urine RBC (Auto) (0-4) /hpf U Hyaline Cast (Auto) (0-5) /lpf U Epithel Cells (Auto) (0-5) /lpf Urine Bacteria (Auto) (Negative) Nasal Screen MRSA (PCR) (Negative) Adenovirus (PCR) (NotDetected) B. pertussis DNA (PCR) (NotDetected) B.parapertussis DNA PCR (NotDetected) C. pneumoniae DNA (PCR) (NotDetected) Coronavirus OC43 (PCR) (NotDetected) Coronavirus HKU1 (PCR) (NotDetected) Coronavirus 229E (PCR) (NotDetected) SARS-CoV-2 (PCR) (NotDetected) Coronavirus NL63 (PCR) (NotDetected) Human Metapneumovir PCR (NotDetected) Influenza Type A (PCR) (NotDetected) Influenza Type B (PCR) (NotDetected) M. pneumoniae (PCR) (NotDetected) Parainfluenza 1 (PCR) (NotDetected) Parainfluenza 2 (PCR) (NotDetected) Parainfluenza 3 (PCR) (NotDetected) Parainfluenza 4 (PCR) (NotDetected) RSV (PCR) (NotDetected) Entero/Rhino (PCR) (NotDetected) 10/18/22 10/18/22 10/18/22 Range/Units 17:10 17:10 17:08 WBC 20.17 H (4.8-10.8) K/ul RBC 4.89 (4.70-6.10) M/uL Hgb 15.1 (14.0-18.0) g/dl Hct 46.3 (42.0-52.0) % MCV 94.7 (80.0-100.0) fL MCH 30.9 (25.0-34.0) pg MCHC 32.6 (32.0-36.0) g/dL RDW Std Deviation 47.6 H (36.4-46.3) fL RDW Coeff of Navid 13.6 (11.5-14.5) % Plt Count 142 (130-400) K/uL MPV 11.3 (9.4-12.4) fL Immature Gran % (Auto) 0.4 % Neut % (Auto) 92.2 % Lymph % (Auto) 2.2 % [place] % (Auto) 4.9 % Eos % (Auto) 0.0 % Baso % (Auto) 0.3 % Neut # (Auto) 18.61 H (1.40-6.50) K/uL Lymph # (Auto) 0.44 L (1.20-3.40) K/uL [place] # (Auto) 0.98 H (0.11-0.59) K/uL Eos # (Auto) 0.00 (0.00-0.50) K/uL Baso # (Auto) 0.06 (0.00-0.20) K/uL Immature Gran # (Auto) 0.08 (0.01-0.20) K/uL Toxic Vacuolation 1+ Platelet Estimate (Normal) PT 11.6 (9.0-12.0) Seconds INR 1.1 (0.9-1.1) ABG pH (7.35-7.45) ABG pCO2 (35-46) mmHg ABG pO2 (80-95) mmHg ABG HCO3 (19-24) mmol/L ABG O2 Saturation (90-95) % ABG Base Excess (-9-1.8) mEq/L Reed Test (Pos) VBG pH (7.36-7.41) VBG pCO2 (38-50) mmHg VBG pO2 mmHg VBG HCO3 mmol/L VBG O2 Saturation % VBG Base Excess mEq/L Oxygen Given Sodium (136-145) mmol/L Potassium (3.5-5.1) mmol/L Chloride (98-107) mmol/L Carbon Dioxide (21-32) mmol/L Anion Gap (3-11) BUN (6-23) mg/dl Creatinine (0.6-1.4) mg/dl Est Cr Clr Drug Dosing ml/min Est GFR ( Amer) ml/min Est GFR (Non-Af Amer) ml/min BUN/Creatinine Ratio (10-20) Glucose (70-99(Fasting)) mg/dl Lactate (0.4-2.0) mmol/L Calcium (8.6-10.3) mg/dl Magnesium (1.7-2.4) mg/dl Total Bilirubin (0.2-1.0) mg/dl AST (13-39) U/L ALT (7-52) U/L Alkaline Phosphatase (34-104) U/L Troponin I High Sens (0-20) pg/ml B-Natriuretic Peptide (0-100) pg/ml Total Protein (6.0-8.3) gm/dl Albumin (3.4-5.0) gm/dl Globulin (2.5-4.0) gm/dl Albumin/Globulin Ratio (0.9-2) Procalcitonin (0-0.5) ng/ml Urine Color Urine Appearance (Clear) Urine pH (4.5-7.5) Ur Specific [place] (1.000-1.030) Urine Protein (Negative) Urine Glucose (UA) (Negative) Urine Ketones (Negative) Urine Blood (Negative) Urine Nitrite (Negative) Urine Bilirubin (Negative) Urine Urobilinogen (Negative) Ur Leukocyte Esterase (Negative) Urine WBC (Auto) (0-5) /hpf Urine RBC (Auto) (0-4) /hpf U Hyaline Cast (Auto) (0-5) /lpf U Epithel Cells (Auto) (0-5) /lpf Urine Bacteria (Auto) (Negative) Nasal Screen MRSA (PCR) (Negative) Adenovirus (PCR) Not Detected (NotDetected) B. pertussis DNA (PCR) Not Detected (NotDetected) B.parapertussis DNA PCR Not Detected (NotDetected) C. pneumoniae DNA (PCR) Not Detected (NotDetected) Coronavirus OC43 (PCR) Not Detected (NotDetected) Coronavirus HKU1 (PCR) Not Detected (NotDetected) Coronavirus 229E (PCR) Not Detected (NotDetected) SARS-CoV-2 (PCR) Not Detected (NotDetected) Coronavirus NL63 (PCR) Not Detected (NotDetected) Human Metapneumovir PCR Not Detected (NotDetected) Influenza Type A (PCR) Not Detected (NotDetected) Influenza Type B (PCR) Not Detected (NotDetected) M. pneumoniae (PCR) Not Detected (NotDetected) Parainfluenza 1 (PCR) Not Detected (NotDetected) Parainfluenza 2 (PCR) Not Detected (NotDetected) Parainfluenza 3 (PCR) Not Detected (NotDetected) Parainfluenza 4 (PCR) Not Detected (NotDetected) RSV (PCR) Not Detected (NotDetected) Entero/Rhino (PCR) Not Detected (NotDetected) Medications Administered Current Inpatient Medications Acetaminophen (Acetaminophen Susp 325 Mg/10.15 Ml Udc) 650 mg PO Q6H PRN PRN Reason: pain/fever Stop: 11/17/22 20:59 Atorvastatin Calcium (Atorvastatin 40 Mg Tab) 40 mg PEG QPM ROYA Stop: 11/17/22 22:09 Last Admin: 10/18/22 22:51 Dose: Not Given Doxycycline Hyclate 100 mg/ (Dextrose) 110 mls @ 50 mls/hr IV Q12H ROYA Stop: 10/26/22 09:59 Methylprednisolone 40 mg/ (Syringe) 0.64 mls @ 1.5 mls/min IV DAILY ROYA Stop: 10/23/22 08:59 Piperacillin Sod/Tazobactam (Sod 4.5 gm/ Dextrose) 120 mls @ 30 mls/hr IV Q8H ROYA; Protocol Stop: 10/26/22 01:59 Last Infusion: 10/19/22 07:31 Dose: Infused Ipratropium [place] (Ipratropium [place] Neb Soln 0.02% 2.5 Ml Vial) 0.5 mg INH Q6R ROYA Stop: 11/18/22 00:59 Last Admin: 10/19/22 07:22 Dose: 0.5 mg Levalbuterol HCl (Levalbuterol 1.25 Mg/3 Ml Neb) 1.25 mg NEB Q6R ROYA Stop: 11/18/22 00:59 Last Admin: 10/19/22 07:22 Dose: 1.25 mg Lorazepam (Lorazepam 2 Mg/1 Ml Vial) 0.25 mg IV Q6H PRN PRN Reason: Anxiety Stop: 11/17/22 20:59
--- NOTE | 2022-10-19 08:10 | Pulmonary Consultation ---
Date of Consultation October 19, 2022 Assessment & Plan (1) Acute on chronic respiratory failure with hypoxemia: (2) Recurrent aspiration pneumonia: (3) COPD (chronic obstructive pulmonary disease): Plan IMPRESSION: 77-year-old male with an unfortunate past medical history of naso pharyngeal cancer status post chemoradiation who has chronic aspiration and is status post PEG tube placement who presents in respiratory distress with findings of RIGHT lower lobe pneumonia. Pulmonary medicine consulted for recurrent COPD exacerbations with multiple admissions. RECOMMENDATIONS: 1. Acute on chronic hypoxemic respiratory failure - Improving at this time. Down to 6 L oxy mask at this point. Likely in the setting of recurrent aspiration event with subsequent aspiration pneumonitis. Awaiting sputum cultures at this point. De-escalate antibiotics based on sputum cultures. Continue with home oxygen therapy as needed. 2. 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 We will place order for repeat chest x-ray today after the patient was resuscitated with IV fluids with refractory hypotension on arrival. At this point, the patient continues with recurrent episodes of aspiration with PEG tube in place. Other than CoughAssist devices to help with airway clearing, I am uncertain to what pulmonary can further offer at this point given his episodes of recurrent aspiration likely driving his underlying episodes of hypoxemia and possible COPD exacerbations. I can see where the patient has previously had palliative consultation, and I do feel that this may be of benefit moving forward. 3. COPD - Uncertain as to patient's prior diagnosis of this as we are unable to access outside studies which would be beneficial including pulmonary function testing, prior bronchoscopic evaluation, etc. Patient has a rescue inhaler and DuoNebs that he uses at home as needed. Otherwise, I do not see any advanced therapies from a pulmonary perspective. Again, it is difficult to ascertain the degree of COPD in this patient without outpatient work-up which, to this point, the patient is likely not going to achieve given his recurrent hospitalizations. Patient is not bronchospastic at this point. Do not see the utility of ongoing high-dose steroids. Would recommend treating the patient's aspiration events, encouraging airway clearing, and follow-up with PCP/outpatient pulmonary provider for further recommendations. Thank you for allowing us to participate in the care of this patient. Supervising Physician Co-Signing Physician Notes Patient seen and examined. EMR reviewed. Images independently reviewed. Discussed with EMANUEL and agree with assessment plan as noted. While the patient may have COPD, his current events appear to be more consistently related with chronic aspiration and his bronchiectasis. He has multiple micronodules throughout the lungs. He appears to be colonized or infected with Pseudomonas most recently. He feels like he is better and is actually asking to go home. He is rhonchorous but not particularly wheezy. I am not sure that steroids at this point in time are the right way to go so these will be discontinued. Can discontinue doxycycline as the likelihood of an atypical agent is unlikely. Continue DuoNebs. Pulmonary toilet with flutter valve and incentive spirometry recommended. He may benefit from hypertonic saline in the outpatient setting. If the patient has recurrent aspiration events, he will likely have persistent issues and that will ultimately result in his demise. He appears to be pursuing a passive aspiration approach. Can likely de-escalate antimicrobial therapy to Augmentin unless Pseudomonas is recovered again from the sputum. Anticipate the patient should be able to be dismissed from the hospital within the next 24 to 48 hours. Recommend he follow-up with his primary care provider History of Present Illness Reason for Consultation: recurrent copd ex Requesting Physician: Dr. Rodriguez Attending Physician: Braulio Dalton MD History of Present Illness Patient is a 77-year-old male with a significant past medical history of chronic respiratory failure on supplemental home oxygen, chronic diastolic heart failure, coronary artery disease status post CABG, aortic stenosis status post bioprosthetic AVR, COPD, chronic aspiration status post PEG tube placement, hypertension, hyperlipidemia, nasopharyngeal cancer status post chemoradiation, chronic anemia, and history of tobacco abuse who presents to the hospital with recurrent aspiration events resulting in COPD exacerbations. Pulmonary medicine consulted for ongoing symptoms of recurrence of COPD in light of his episodes of aspiration. Upon evaluation at bedside today, the patient is awake, alert, and oriented, but very hard of hearing. He reports no complaints with his breathing at this time. He has an ongoing cough. He denies any other complaints at this point. Allergies Allergy/AdvReac Type Severity Reaction Status Date / Time No Known Allergies Allergy Verified 10/18/22 18:52 Home Medications Medication Instructions Recorded Confirmed Type atorvastatin 40 mg tablet 40 mg feeding tube QPM 09/18/18 10/18/22 History nitroglycerin 0.4 mg sublingual 0.4 mg sublingual UD PRN Chest Pain 09/18/18 10/18/22 History tablet albuterol sulfate 90 mcg/actuation 2 inh inhalation Q6H PRN shortness 05/06/20 10/18/22 Rx aerosol inhaler (ProAir HFA) of breath or wheezing #8.5 grams nutritional supplements 0.08 1 ea feeding tube QID 02/19/21 10/18/22 History gram-2 kcal/mL liquid for tube feed (Nutren 2.0) ipratropium 0.5 mg-albuterol 3 mg 3 ml inhalation Q6H PRN Shortness 09/05/22 10/18/22 History (2.5 mg base)/3 mL nebulization Of Breath soln ibuprofen 100 mg/5 mL oral 0 mg PO Q6H PRN Fever Or Pain 10/18/22 10/18/22 History suspension (Children's Advil) lorazepam 0.5 mg tablet 0.5 mg feeding tube HS PRN Anxiety 10/18/22 10/18/22 History Patient History Medical History Acute hypoxemic respiratory failure Acute on chronic diastolic heart failure Acute renal insufficiency JULES (acute kidney injury) CAD (coronary artery disease) Cardiac murmur CHILD FROM RHEUMATIC FEVER CHF (congestive heart failure) Chronic pulmonary aspiration CKD (chronic kidney disease) stage 3, GFR 30-59 ml/min Elevated lactic acid level Former tobacco use Hearing deficit BILAT History of [place] (myocardial infarction) 2016/ [facility] History of nasopharyngeal cancer s/p radiation, chemo- NO PORT ANYMORE CLEARED NOV 2013 History of rheumatic fever Hyperlipidemia Hypertension Left bundle branch block (LBBB) Palate abnormality prosthetic palate Pneumonia Radiation adverse effect Severe sepsis Shock Surgical History History of cardiac cath 2017 - [place] --> CABG - [facility]- follows w/ Dr. Milton- [facility]CHANT/ NO STENTS History of cataract surgery History of colonoscopy with polypectomy 09/25/2018. Propofol given, no issues. History of coronary artery bypass graft One vessel - 2016 - [facility] History of heart valve replacement Bioprosthetic aortic valve - 2016 History of shoulder surgery RIGHT History of tonsillectomy History of tooth extraction History of vascular access device NO LONGER HAS PORT Hx of aortic valve replacement Status post insertion of percutaneous endoscopic gastrostomy (PEG) tube PLACED DUE TO PALATE SURGERY- THEN REMOVED 2014 Family History Father Cancer Liver Cancer Social History Smoking Status: Never smoker Tobacco Type: Cigarettes Second Hand Exposure: No; Do You Dip or Chew Tobacco: No; Hx Alcohol Use: No Hx Substance Use: No Preferred Language: Armenian Communication Ability: Effective Communication Ability Comment: Has tablet Ramp Boss Required: No Beliefs That Will Affect Care: None marital status: / Current Living Situation: Family Current Living Situation Comment: Patient lives at home with sonAnthony. How many Children do You have: 1 Feels Safe at Home: Yes Assistive Devices: Cane and Oxygen - Continuous Review of Systems Review of Systems: A complete 10 point review of systems was reviewed with the patient with pertinent positives and negatives as per history of present illness. All else were negative. Physical Exam Physical Exam: VITAL SIGNS - Vital signs and nursing notes were reviewed. GENERAL - 77-year-old male appearing his stated age who is in no acute distress. Extremely hard of hearing. MOUTH/OROPHARYNX - Without perioral cyanosis. LUNGS - Coarse breath sounds noted with rales that extend up the mid lung [place] bilaterally. CARDIAC - RRR with S1/S2. No murmur, rubs, or gallops appreciated. ABDOMEN - Abdominal inspection demonstrates a flat abdomen. BS normoactive all four quadrants. No tenderness, palpable masses, or ascites noted. EXTREMITIES - No peripheral cyanosis. No pretibial edema present. +3/5 radial palpated throughout. PSYCH - A&Ox3 and cooperates fully with examiner. Hard of hearing. Pt is very pleasant and interacts well with examiner. Results & Data Results & Data Vital Signs (Past 12 Hours) Vital Signs Temp Pulse Pulse Pulse Resp BP BP 10/19/22 07:52 36.4 C L 61 22 106/65 10/19/22 07:24 68 20 10/19/22 04:47 72 17 118/71 10/19/22 02:55 67 10/19/22 02:37 68 23 10/19/22 02:31 72 23 10/19/22 00:21 36.7 C 76 18 103/64 10/18/22 23:51 75 10/18/22 23:18 10/18/22 22:30 90 27 H 10/18/22 22:10 36.4 C L 74 22 106/68 10/18/22 21:40 77 20 10/18/22 21:40 103/61 10/18/22 21:35 76 15 10/18/22 21:35 115/72 10/18/22 21:30 77 19 10/18/22 21:30 109/67 10/18/22 21:25 77 18 10/18/22 21:25 95/60 L 10/18/22 21:20 77 19 10/18/22 21:20 79/51 L 10/18/22 21:15 78 22 10/18/22 21:15 86/53 L 10/18/22 21:10 79 18 10/18/22 21:10 62/37 L 10/18/22 21:06 78 17 10/18/22 21:06 48/31 L 10/18/22 21:01 79 10/18/22 21:05 79 20 10/18/22 21:00 81 19 10/18/22 21:00 45/29 L 10/18/22 20:55 83 23 10/18/22 20:54 55/37 L 10/18/22 20:54 84 25 H 10/18/22 20:50 83 17 10/18/22 20:46 81 17 10/18/22 20:46 51/31 L 10/18/22 20:45 81 17 10/18/22 20:40 81 21 10/18/22 20:35 81 18 10/18/22 20:30 85 17 10/18/22 20:30 85/55 L 10/18/22 20:25 87 19 10/18/22 20:20 90 19 10/18/22 20:15 96 H 29 H 10/18/22 20:15 141/80 H Pulse Ox O2 Del Method O2 Flow Rate FiO2 10/19/22 07:52 97 Oxymask 6 10/19/22 07:24 95 Oxymask 8 10/19/22 04:47 98 Oxymask 8 10/19/22 02:55 98 Oxymask 8 10/19/22 02:37 98 35 10/19/22 02:31 98 BiPAP 35 10/19/22 00:21 99 BiPAP 10/18/22 23:51 10/18/22 23:18 BiPAP 10/18/22 22:30 98 65 10/18/22 22:10 96 BiPAP 10/18/22 21:40 100 10/18/22 21:40 10/18/22 21:35 100 10/18/22 21:35 10/18/22 21:30 100 10/18/22 21:30 10/18/22 21:25 100 10/18/22 21:25 10/18/22 21:20 99 10/18/22 21:20 10/18/22 21:15 99 10/18/22 21:15 10/18/22 21:10 96 10/18/22 21:10 10/18/22 21:06 94 10/18/22 21:06 10/18/22 21:01 10/18/22 21:05 93 10/18/22 21:00 89 L 10/18/22 21:00 10/18/22 20:55 88 L 10/18/22 20:54 10/18/22 20:54 83 L 10/18/22 20:50 85 L 10/18/22 20:46 87 L 10/18/22 20:46 10/18/22 20:45 88 L 10/18/22 20:40 94 10/18/22 20:35 99 10/18/22 20:30 100 10/18/22 20:30 10/18/22 20:25 100 10/18/22 20:20 100 10/18/22 20:15 100 10/18/22 20:15 PG Care Time/CCT Total # of Minutes Spent Total Time Spent with Patient: Total time spent is greater than 50% in coordination of care (as documented) at patient's floor/unit and/or counseling patient: Coding Level of Care Code 07989 INT INP/OBS CARE 3/75MIN Diagnoses Acute on chronic respiratory failure with hypoxemia J96.21 Recurrent aspiration pneumonia J69.0 COPD (chronic obstructive pulmonary disease) J44.9
[2022-10-19] MEDS ORDERED: methylPREDNISolone 40 MG in SYRINGE 0 ML IV SCH (09:00)
[2022-10-19] MEDS ORDERED: DOXYCYCLINE HYCLATE 100 MG in DEXTROSE 5% 100 ML IV SCH (10:00)
[2022-10-19] MEDS: guaiFENesin SUGAR FREE 200 MG/10 ML UDC JT SCH ×2 (15:19→18:46)
--- NOTE | 2022-10-19 15:34 | Electrocardiogram Report ---
Test Reason : Blood Pressure : / mmHG Vent. Rate : 100 BPM Atrial Rate : 100 BPM P-R Int : 146 ms QRS Dur : 076 ms QT Int : 334 ms P-R-T Axes : 056 063 066 degrees QTc Int : 430 ms Normal sinus rhythm Low voltage QRS Borderline ECG When compared with ECG of 03-OCT-2022 19:21, Premature atrial complexes are no longer Present Confirmed by Vu Rinaldi ([id number]) on 10/19/2022 3:34:29 PM Referred By: REFERRED SELF Confirmed By:Vu Rinaldi
[2022-10-19] MEDS: ATORVASTATIN 40 MG TAB PEG SCH (20:08)
[2022-10-19] MEDS ORDERED: SODIUM CHLORIDE 0.9% 1,000 ML IV ONE (23:12)
[2022-10-20] MEDS: LEVALBUTEROL 1.25 MG/3 ML NEB NEB SCH ×4 (00:02→19:19)
[2022-10-20] MEDS: IPRATROPIUM BROMIDE NEB SOLN 0.02% 2.5 ML VIAL INH SCH ×4 (00:02→19:22)
[2022-10-20] MEDS: guaiFENesin SUGAR FREE 200 MG/10 ML UDC JT SCH ×4 (00:28→17:26)
[2022-10-20] MEDS: SODIUM CHLORIDE 0.9% 1,000 ML IV SCH ×3 (01:53→12:22)
[2022-10-20] MEDS: PIPERACILLIN/TAZOBACTAM 4.5 GM in DEXTROSE 5% MINI-B 100 ML IV SCH ×3 (01:53→17:26)
[2022-10-20 04:00] LABS: Hematocrit (blood only) 35.9 % (42.0-52.0); Mean Corpuscular Hemoglobin 31.1 pg (25.0-34.0); Mean Corpuscular Hgb Conc 33.4 g/dL (32.0-36.0); Mean Platelet Volume 11.2 fL (9.4-12.4); Platelet Count 103 K/uL (130-400); RDW Coefficient of Variation 13.4 % (11.5-14.5); RDW Standard Deviation 45.5 fL (36.4-46.3); Red Blood Count 3.86 M/uL (4.70-6.10); White Blood Count 19.31 K/ul (4.8-10.8)
[2022-10-20 04:15] LABS: BUN Creatinine Ratio 32.9 (10-20); Calcium 7.7 mg/dl (8.6-10.3); Creatinine Clr Calc Pharmacy 64.5 ml/min; Est GFR (African American) 101.3 ml/min; Est GFR (Non-African American) 87.4 ml/min; Magnesium 1.9 mg/dl (1.7-2.4); Phosphorus 2.6 mg/dl (2.5-4.9)
--- NOTE | 2022-10-20 08:12 | Hospitalist Progress Note ---
Date of Service October 20, 2022 Assessment & Plan (1) Acute on chronic respiratory failure with hypoxia and hypercapnia: Plan: Acute on chronic recurrent COPD exacerbation and recurrent aspiration pneumonia Recent bout of Pseudomonas pneumonia status post Levaquin Rx hx chronic pulmonary aspiration status post PEG tube placement on tube feeds Severe sepsis SIRS plus hypotension secondary to above PCU given hypotension CS, Zosyn, Doxycycline MRSA swab, change Doxycycline to Vancomycin if MRSA swab positiv mrsa - negative WBC elevated procal 1.4 sputum cultx ordered- pending Continue aspiration precautions Nebs RTC, steroid course Pulmonary consult RE COPD exacerbation, recurrent admissions (Patient and son may be more receptive to palliative approach to chronic lung disease after specialist input.) Per pulmonary med - resp. failure, hypoxia secondary to recurrent aspiration, not likely copd exacrtb., cont. Abx, await sputum cultx IVF Troponin elevation secondary illness repeat troponin reviewed chronic diastolic heart failure, patient on the dry side chronic LBBB hx CAD status post CABG status post bioprosthetic AVR hyperlipidemia, on statin Rx nasopharyngeal cancer status post chemoradiation, in remission hx severe epistaxis status post bilateral sphenopalatine artery embolization chronic anemia, hemoglobin better than baseline secondary to hemoconcentration past tobacco abuse DVT prophylaxis. SCDs Re: History severe epistaxis DNR as per discussion of admitting provider with the patient Patient's son - Mr. Anthony Dodson, contact #[phone]. Admission and Anticipated Discharge Date Admission Date: October 18, 2022 Subjective Pt seen in follow up of resp. failure, copd exacerb., chronic aspi., in ED initially on bipap Pulmonary medicine also consulted Last night pt hypotensive, and IVF started, BP ok now. Plan to resume tube feeds at lower rate today. Pt is down on 2L suppl. O2 which is his baseline. he continues to cough up sputum. Currently sitting up in bed, in NAD Says he feels comfortable, coughing up some sputum/ opaque No chest pain and no shortness of breath at this time No abd. pain, or nausea Sputum cultx pending (Pt has hx of pseudomonas posit. cultx) Review of Systems Review of Systems: All systems reviewed & are unremarkable except as noted in Subjective Physical Exam Physical Exam: GENERAL: elderly, thin, +chronically ill appearing, in NAD HEENT: NC/AT, pale palpebral conjunctivae NECK : Supple, no tenderness CHEST : coarse breath sounds diffuse HEART : RRR, no obvious murmurs ABDOMEN: Some distention, PEG tube in place, nontender EXTREMITIES : No LE swelling/tenderness, moves extremities SKIN: Pallor, warm NEUROLOGIC : awake, alert, oriented, no facial asymmetry, mild hearing impairment, moves extremities Results & Data Results & Data Vital Signs (Past 12 Hours) Vital Signs Temp Pulse Pulse Pulse Resp BP BP 10/20/22 07:25 68 20 10/20/22 07:27 36.5 C 71 20 156/99 H 10/20/22 03:03 36.3 C L 78 18 137/68 10/20/22 00:42 76 119/69 10/19/22 22:06 92 H 10/19/22 23:07 90 75/38 L 10/19/22 23:01 36.5 C 90 18 67/41 L 10/19/22 20:25 Pulse Ox O2 Del Method O2 Flow Rate 10/20/22 07:25 98 Oxymask 4 10/20/22 07:27 99 Oxymask 4 10/20/22 03:03 97 Oxymask 4 10/20/22 00:42 10/19/22 22:06 10/19/22 23:07 10/19/22 23:01 94 Oxymask 4 10/19/22 20:25 Oxymask 4 Laboratory Results 10/20/22 10/20/22 10/20/22 Range/Units 03:44 03:37 03:37 WBC 19.31 H (4.8-10.8) K/ul RBC 3.86 L (4.70-6.10) M/uL Hgb 12.0 L (14.0-18.0) g/dl Hct 35.9 L (42.0-52.0) % MCV 93.0 (80.0-100.0) fL MCH 31.1 (25.0-34.0) pg MCHC 33.4 (32.0-36.0) g/dL RDW Std Deviation 45.5 (36.4-46.3) fL RDW Coeff of Navid 13.4 (11.5-14.5) % Plt Count 103 L (130-400) K/uL MPV 11.2 (9.4-12.4) fL Sodium 137 (136-145) mmol/L Potassium 4.0 (3.5-5.1) mmol/L Chloride 101 (98-107) mmol/L Carbon Dioxide 28 (21-32) mmol/L Anion Gap 8 (3-11) BUN 25 H (6-23) mg/dl Creatinine 0.76 (0.6-1.4) mg/dl Est Cr Clr Drug Dosing 64.5 ml/min Est GFR ( Amer) 101.3 ml/min Est GFR (Non-Af Amer) 87.4 ml/min BUN/Creatinine Ratio 32.9 H (10-20) Glucose 126 H (70-99(Fasting)) mg/dl Lactate 2.2 H* (0.4-2.0) mmol/L Calcium 7.7 L (8.6-10.3) mg/dl Phosphorus 2.6 (2.5-4.9) mg/dl Magnesium 1.9 (1.7-2.4) mg/dl 10/19/22 Range/Units 23:24 WBC (4.8-10.8) K/ul RBC (4.70-6.10) M/uL Hgb (14.0-18.0) g/dl Hct (42.0-52.0) % MCV (80.0-100.0) fL MCH (25.0-34.0) pg MCHC (32.0-36.0) g/dL RDW Std Deviation (36.4-46.3) fL RDW Coeff of Navid (11.5-14.5) % Plt Count (130-400) K/uL MPV (9.4-12.4) fL Sodium (136-145) mmol/L Potassium (3.5-5.1) mmol/L Chloride (98-107) mmol/L Carbon Dioxide (21-32) mmol/L Anion Gap (3-11) BUN (6-23) mg/dl Creatinine (0.6-1.4) mg/dl Est Cr Clr Drug Dosing ml/min Est GFR ( Amer) ml/min Est GFR (Non-Af Amer) ml/min BUN/Creatinine Ratio (10-20) Glucose (70-99(Fasting)) mg/dl Lactate 4.6 H* (0.4-2.0) mmol/L Calcium (8.6-10.3) mg/dl Phosphorus (2.5-4.9) mg/dl Magnesium (1.7-2.4) mg/dl Medications Administered Current Inpatient Medications Acetaminophen (Acetaminophen Susp 325 Mg/10.15 Ml Udc) 650 mg PO Q6H PRN PRN Reason: pain/fever Stop: 11/17/22 20:59 Last Admin: 10/19/22 20:08 Dose: 650 mg Atorvastatin Calcium (Atorvastatin 40 Mg Tab) 40 mg PEG QPM ROYA Stop: 11/17/22 22:09 Last Admin: 10/19/22 20:08 Dose: 40 mg Guaifenesin (Guaifenesin Sugar Free 200 Mg/10 Ml Udc) 200 mg JT Q6 ROYA Stop: 11/18/22 14:44 Last Admin: 10/20/22 12:05 Dose: Not Given Piperacillin Sod/Tazobactam (Sod 4.5 gm/ Dextrose) 100 mls @ 25 mls/hr IV Q8H ROYA; Protocol Stop: 10/26/22 01:59 Last Admin: 10/20/22 11:05 Dose: 25 mls/hr Sodium Chloride (Nss) 1,000 mls @ 80 mls/hr IV .[id number] ROYA Stop: 11/19/22 00:59 Last Admin: 10/20/22 07:37 Dose: 200 mls/hr Ipratropium [place] (Ipratropium [place] Neb Soln 0.02% 2.5 Ml Vial) 0.5 mg INH Q6R ROYA Stop: 11/18/22 00:59 Last Admin: 10/20/22 07:21 Dose: 0.5 mg Levalbuterol HCl (Levalbuterol 1.25 Mg/3 Ml Neb) 1.25 mg NEB Q6R ROYA Stop: 11/18/22 00:59 Last Admin: 10/20/22 07:21 Dose: 1.25 mg Lorazepam (Lorazepam 2 Mg/1 Ml Vial) 0.25 mg IV Q6H PRN PRN Reason: Anxiety Stop: 11/17/22 20:59
--- NOTE | 2022-10-20 10:25 | Pulmonology Progress Note ---
Date of Service October 20, 2022 Assessment & Plan (1) Acute on chronic respiratory failure with hypoxemia: (2) Recurrent aspiration pneumonia: (3) COPD (chronic obstructive pulmonary disease): Plan IMPRESSION: 77-year-old male with an unfortunate past medical history of nasoph aryngeal cancer status post chemoradiation who has chronic aspiration and is status post PEG tube placement who presents in respiratory distress with findings of RIGHT lower lobe pneumonia. Pulmonary medicine consulted for recurrent COPD exacerbations with multiple admissions. RECOMMENDATIONS: 1. Acute on chronic hypoxemic respiratory failure - Improving at this time. Down to 2 L oxy mask at this point. Likely in the setting of recurrent aspiration event with subsequent aspiration pneumonitis. Awaiting sputum cultures at this point. De-escalate antibiotics based on sputum cultures. Can likely transition to PO antibiotics in anticipation of discharge. Continue with home oxygen therapy as needed. 2. Recurrent aspiration pneumonia - This appears to be the clark driver behind the patient's recurrent "COPD exacerbations." On exam, the patient is without wheezing, he actually sounds relatively coarse with Rales in the lower lung [place]. At this point, the patient continues with recurrent episodes of aspiration with PEG tube in place. Other than CoughAssist devices to help with airway clearing, I am uncertain to what pulmonary can further offer at this point given his episodes of recurrent aspiration likely driving his underlying episodes of hypoxemia and possible COPD exacerbations. I can see where the patient has previously had palliative consultation, and I do feel that this may be of benefit moving forward. 3. COPD - Uncertain as to patient's prior diagnosis of this as we are unable to access outside studies which would be beneficial including pulmonary function testing, prior bronchoscopic evaluation, etc. Patient has a rescue inhaler and DuoNebs that he uses at home as needed. Consider addition of hypertonic saline nebs to help with airway secretion clearing. Otherwise, I do not see any advanced therapies from a pulmonary perspective. Again, it is difficult to ascertain the degree of COPD in this patient without outpatient work-up which, to this point, the patient is likely not going to achieve given his recurrent hospitalizations. Patient is not bronchospastic at this point. Do not see the utility of ongoing high-dose steroids. Would recommend treating the patient's aspiration events, encouraging airway clearing, and follow-up with PCP/outpatient pulmonary provider for further recommendations. Thank you for allowing us to participate in the care of this patient. Pulmonary medicine will sign off at this time. Admission and Anticipated Discharge Date Admission Date: October 18, 2022 Subjective Patient was seen and evaluated at bedside this morning. He reports that his breathing is back to his baseline at this time. He has a cough as well as ongoing sputum production. Otherwise, he is feeling well. Review of Systems Review of Systems: A complete 10 point review of systems was reviewed with the patient with pertinent positives and negatives as per history of present illness. All else were negative. Physical Exam Physical Exam: VITAL SIGNS - Vital signs and nursing notes were reviewed. GENERAL - 77-year-old male appearing his stated age who is in no acute distress. Extremely hard of hearing. LUNGS - Coarse breath sounds noted with rales that extend up the mid lung [place] bilaterally. CARDIAC - RRR with S1/S2. No murmur, rubs, or gallops appreciated. PSYCH - A&Ox3 and cooperates fully with examiner. Hard of hearing. Pt is very pleasant and interacts well with examiner. Results & Data Results & Data Vital Signs (Past 12 Hours) Vital Signs Temp Pulse Pulse Resp BP BP Pulse Ox 10/20/22 07:25 68 20 98 10/20/22 07:52 10/20/22 07:27 36.5 C 71 20 156/99 H 99 10/20/22 03:03 36.3 C L 78 18 137/68 97 10/20/22 00:42 76 119/69 10/19/22 23:07 90 75/38 L 10/19/22 23:01 36.5 C 90 18 67/41 L 94 O2 Del Method O2 Flow Rate 10/20/22 07:25 Oxymask 4 10/20/22 07:52 Oxymask 4 10/20/22 07:27 Oxymask 4 10/20/22 03:03 Oxymask 4 10/20/22 00:42 10/19/22 23:07 10/19/22 23:01 Oxymask 4 PG Care Time/CCT Total # of Minutes Spent Total Time Spent with Patient: Total time spent is greater than 50% in coordination of care (as documented) at patient's floor/unit and/or counseling patient: Coding Level of Care Code 34568 SUB INP/OBS CARE 2/35MIN Diagnoses Acute on chronic respiratory failure with hypoxemia J96.21 Recurrent aspiration pneumonia J69.0 COPD (chronic obstructive pulmonary disease) J44.9
[2022-10-20] MEDS ORDERED: NUTREN LIQD 2.0 1,000 ML BAG GT SCH (16:30)
[2022-10-20] MEDS: TUBE FEEDING WATER FLUSH GT SCH ×2 (18:53→20:54)
[2022-10-20] MEDS: ATORVASTATIN 40 MG TAB PEG SCH (20:54)
[2022-10-21] MEDS: IPRATROPIUM BROMIDE NEB SOLN 0.02% 2.5 ML VIAL INH SCH ×3 (00:55→13:06)
[2022-10-21] MEDS: LEVALBUTEROL 1.25 MG/3 ML NEB NEB SCH ×3 (00:56→13:06)
[2022-10-21] MEDS: TUBE FEEDING WATER FLUSH GT SCH ×6 (01:52→15:08)
[2022-10-21] MEDS: guaiFENesin SUGAR FREE 200 MG/10 ML UDC JT SCH ×4 (01:52→12:14)
[2022-10-21] MEDS: PIPERACILLIN/TAZOBACTAM 4.5 GM in DEXTROSE 5% MINI-B 100 ML IV SCH ×2 (02:09→10:06)
[2022-10-21] MEDS: SODIUM CHLORIDE 0.9% 1,000 ML IV SCH ×2 (02:09→10:59)
[2022-10-21 06:32] LABS: Hematocrit (blood only) 42.5 % (42.0-52.0); Hemoglobin 14.3 g/dl (14.0-18.0); Mean Corpuscular Hgb Conc 33.6 g/dL (32.0-36.0); Mean Corpuscular Volume 92.2 fL (80.0-100.0); Mean Platelet Volume 10.3 fL (9.4-12.4); Platelet Count 116 K/uL (130-400); RDW Coefficient of Variation 13.3 % (11.5-14.5); RDW Standard Deviation 44.9 fL (36.4-46.3); Red Blood Count 4.61 M/uL (4.70-6.10); White Blood Count 11.59 K/ul (4.8-10.8)
[2022-10-21 06:53] LABS: BUN Creatinine Ratio 26.3 (10-20); Calcium 7.9 mg/dl (8.6-10.3); Creatinine Clr Calc Pharmacy 85.1 ml/min; Est GFR (Non-African American) 98.4 ml/min; Magnesium 1.7 mg/dl (1.7-2.4); Phosphorus 1.5 mg/dl (2.5-4.9); Potassium 3.3 mmol/L (3.5-5.1)
[2022-10-21] MEDS ORDERED: POTASSIUM PHOS 3 MMOL/1 ML INFUSION IV STA (07:00)
[2022-10-21] MEDS ORDERED: DEXTROSE 50% 50 ML SYRINGE IV STA (07:20)
--- NOTE | 2022-10-21 07:23 | Hospitalist Progress Note ---
Date of Service October 21, 2022 Assessment & Plan (1) Acute on chronic respiratory failure with hypoxia and hypercapnia: Plan: Acute on chronic recurrent COPD exacerbation and recurrent aspiration pneumonia Recent bout of Pseudomonas pneumonia status post Levaquin Rx hx chronic pulmonary aspiration status post PEG tube placement on tube feeds Severe sepsis SIRS plus hypotension secondary to above PCU given hypotension CS, Zosyn, Doxycycline MRSA swab, change Doxycycline to Vancomycin if MRSA swab positiv mrsa - negative WBC elevated procal 1.4 sputum cultx ordered- normal shalom Continue aspiration precautions Nebs RTC, steroid course Pulmonary consult RE COPD exacerbation, recurrent admissions (Patient and son may be more receptive to palliative approach to chronic lung disease after specialist input.) Per pulmonary med - resp. failure, hypoxia secondary to recurrent aspiration, not likely copd exacerb., cont. Abx -> can switch to augmentin IVF Troponin elevation secondary illness repeat troponin reviewed chronic diastolic heart failure, patient on the dry side chronic LBBB hx CAD status post CABG status post bioprosthetic AVR hyperlipidemia, on statin Rx nasopharyngeal cancer status post chemoradiation, in remission hx severe epistaxis status post bilateral sphenopalatine artery embolization chronic anemia, hemoglobin better than baseline secondary to hemoconcentration past tobacco abuse DVT prophylaxis. SCDs Re: History severe epistaxis DNR as per discussion of admitting provider with the patient Patient's son - Mr. Anthony Dodson, contact #[phone]. Admission and Anticipated Discharge Date Admission Date: October 18, 2022 Subjective Pt seen in follow up of resp. failure, copd exacerb., chronic aspi., in ED initially on bipap Pulmonary medicine also consulted Pt is down on 2L suppl. O2 which is his baseline. he continues to cough up sputum. No fever, chills, chest pain, 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 Overnight pt did not want to use his tube feeds, restarting now. He is feeling much better and wants to go home. Review of Systems Review of Systems: All systems reviewed & are unremarkable except as noted in Subjective Physical Exam Physical Exam: GENERAL: elderly, thin, +chronically ill appearing, in NAD HEENT: NC/AT, pale palpebral conjunctivae NECK : Supple, no tenderness CHEST : +rhonchi (improved from previous exam) HEART : RRR, no obvious murmurs ABDOMEN: Some distention, PEG tube in place, nontender EXTREMITIES : No LE swelling/tenderness, moves extremities SKIN: Pallor, warm NEUROLOGIC : awake, alert, oriented, no facial asymmetry, mild hearing impairment, moves extremities Results & Data Results & Data Vital Signs (Past 12 Hours) Vital Signs Temp Pulse Pulse Pulse Resp BP BP 10/21/22 07:21 69 18 10/21/22 07:03 36.3 C L 71 18 122/74 10/21/22 03:00 36.4 C L 83 18 148/76 H 10/20/22 22:05 72 10/20/22 23:00 36.3 C L 76 20 165/91 H 10/20/22 20:45 Pulse Ox O2 Del Method O2 Flow Rate 10/21/22 07:21 96 Oxymask 2 10/21/22 07:03 95 Oxymask 2 10/21/22 03:00 91 Oxymask 10/20/22 22:05 10/20/22 23:00 97 Oxymask 10/20/22 20:45 Oxymask 2 Laboratory Results 10/21/22 10/21/22 10/21/22 Range/Units 07:42 07:05 07:04 WBC (4.8-10.8) K/ul RBC (4.70-6.10) M/uL Hgb (14.0-18.0) g/dl Hct (42.0-52.0) % MCV (80.0-100.0) fL MCH (25.0-34.0) pg MCHC (32.0-36.0) g/dL RDW Std Deviation (36.4-46.3) fL RDW Coeff of Navid (11.5-14.5) % Plt Count (130-400) K/uL MPV (9.4-12.4) fL Sodium (136-145) mmol/L Potassium (3.5-5.1) mmol/L Chloride (98-107) mmol/L Carbon Dioxide (21-32) mmol/L Anion Gap (3-11) BUN (6-23) mg/dl Creatinine (0.6-1.4) mg/dl Est Cr Clr Drug Dosing ml/min Est GFR ( Amer) ml/min Est GFR (Non-Af Amer) ml/min BUN/Creatinine Ratio (10-20) Glucose (70-99(Fasting)) mg/dl POC Glucose 165 H 63 L* 65 L* (70-99) mg/dl Calcium (8.6-10.3) mg/dl Phosphorus (2.5-4.9) mg/dl Magnesium (1.7-2.4) mg/dl 10/21/22 10/21/22 Range/Units 05:24 05:24 WBC 11.59 H (4.8-10.8) K/ul RBC 4.61 L (4.70-6.10) M/uL Hgb 14.3 (14.0-18.0) g/dl Hct 42.5 (42.0-52.0) % MCV 92.2 (80.0-100.0) fL MCH 31.0 (25.0-34.0) pg MCHC 33.6 (32.0-36.0) g/dL RDW Std Deviation 44.9 (36.4-46.3) fL RDW Coeff of Navid 13.3 (11.5-14.5) % Plt Count 116 L (130-400) K/uL MPV 10.3 (9.4-12.4) fL Sodium 137 (136-145) mmol/L Potassium 3.3 L (3.5-5.1) mmol/L Chloride 99 (98-107) mmol/L Carbon Dioxide 32 (21-32) mmol/L Anion Gap 6 (3-11) BUN 15 (6-23) mg/dl Creatinine 0.57 L (0.6-1.4) mg/dl Est Cr Clr Drug Dosing 85.1 ml/min Est GFR ( Amer) 114.0 ml/min Est GFR (Non-Af Amer) 98.4 ml/min BUN/Creatinine Ratio 26.3 H (10-20) Glucose 51 L* (70-99(Fasting)) mg/dl POC Glucose (70-99) mg/dl Calcium 7.9 L (8.6-10.3) mg/dl Phosphorus 1.5 L* D (2.5-4.9) mg/dl Magnesium 1.7 (1.7-2.4) mg/dl Medications Administered Current Inpatient Medications Acetaminophen (Acetaminophen Susp 325 Mg/10.15 Ml Udc) 650 mg PO Q6H PRN PRN Reason: pain/fever Stop: 11/17/22 20:59 Last Admin: 10/19/22 20:08 Dose: 650 mg Atorvastatin Calcium (Atorvastatin 40 Mg Tab) 40 mg PEG QPM ROYA Stop: 11/17/22 22:09 Last Admin: 10/20/22 20:54 Dose: 40 mg Dextrose (Dextrose 50% 50 Ml Syringe) 50 ml IV NOW STA Stop: 10/21/22 07:21 Guaifenesin (Guaifenesin Sugar Free 200 Mg/10 Ml Udc) 200 mg JT Q6 ROYA Stop: 11/18/22 14:44 Last Admin: 10/21/22 05:55 Dose: Not Given Piperacillin Sod/Tazobactam (Sod 4.5 gm/ Dextrose) 100 mls @ 25 mls/hr IV Q8H ROYA; Protocol Stop: 10/26/22 01:59 Last Infusion: 10/21/22 06:09 Dose: Infused Sodium Chloride (Nss) 1,000 mls @ 80 mls/hr IV .[id number] ROYA Stop: 11/19/22 00:59 Last Admin: 10/21/22 02:09 Dose: 80 mls/hr Potassium Phosphate 21 mmol/ (Sodium Chloride) 507 mls @ 88 mls/hr IV ONE ONE Stop: 10/21/22 13:15 Ipratropium [place] (Ipratropium [place] Neb Soln 0.02% 2.5 Ml Vial) 0.5 mg INH Q6R ROYA Stop: 11/18/22 00:59 Last Admin: 10/21/22 07:19 Dose: 0.5 mg Levalbuterol HCl (Levalbuterol 1.25 Mg/3 Ml Neb) 1.25 mg NEB Q6R ROYA Stop: 11/18/22 00:59 Last Admin: 10/21/22 07:20 Dose: 1.25 mg Lorazepam (Lorazepam 2 Mg/1 Ml Vial) 0.25 mg IV Q6H PRN PRN Reason: Anxiety Stop: 11/17/22 20:59 Nutritional Formula (Nutren Liqd 2.0 1,000 Ml Bag) 1,000 ml GT UD ROYA; Protocol Stop: 11/19/22 16:29 Last Admin: 10/20/22 18:53 Dose: 1,000 ml Sterile Water (Tube Feeding Water Flush) 150 ml GT Q4H ROYA Stop: 11/19/22 16:29 Last Admin: 10/21/22 05:55 Dose: Not Given
[2022-10-21] MEDS ORDERED: DEXTROSE 50% 50 ML SYRINGE IV ONE (07:25)
[2022-10-21] MEDS ORDERED: POTASSIUM PHOSPHATE 21 MMOL in SODIUM CHLORIDE 0.9% 500 ML IV ONE (07:30)
--- NOTE | 2022-10-21 16:33 | Discharge Summary ---
Date of Service October 21, 2022 Admission HPI Per Admitting Provider History obtained from patient and records. Medical history significant for chronic respiratory failure occasional supplemental home O2 use, chronic diastolic heart failure (EF 50 to 55%, TTE 2020) , chronic LBBB, CAD status post CABG, status post bioprosthetic AVR, COPD as per records, chronic pulmonary aspiration status post PEG tube placement, hypertension, hyperlipidemia, nasopharyngeal cancer status post chemoradiation, chronic anemia (baseline hemoglobin of 12 ), hx severe epistaxis status post sphenopalatine artery embolization, past tobacco abuse. Five admissions at [facility] this year for COPD exacerbation. Recent confinement 2 weeks ago for sepsis, COPD exacerbation secondary to Pseudomonas pneumonia. Patient discharged on Levaquin course. Palliative care consulted during confinement to discuss goals of care. Patient expressed DNR directives. Patient and family not opposed to recurrent confinements secondary to aspiration pneumonia as per conversation with palliative care physician. Patient with persistent cough symptoms productive of yellow sputum on home nurse evaluation 3 days ago. Rhonchi appreciated throughout patient's lung [place]. Patient denies unusual chest pain/SOB. Patient admitted to gargling with water which makes him cough up mucus as per outpatient nurse documentation. Nurse expressed concerns that water could be going down patient's lungs. Outpatient CXR done, results not known to patient. Today, patient had worsening cough, gagging symptoms and 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 Chest pain from coughing. EMS called to patient's home. Lowest O2 sats of 80s Last night, patient noted worsening junky cough symptoms along with worsening 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 Patient denies chest pain. Patient completed COVID-19 vaccination. Not sure about sick contacts. No recent john aspiration episode. O2 sats noted to be 80s by EMS on simple facemask. At the ER, O2 sats noted to be 80s, lowest SBP 40s. Unasyn, Solu-Medrol, and neb treatment administered at the ER. BiPAP initiated at the ER. 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 Admission Exam Per Admitting Provider GENERAL: Slightly uncomfortable, chronically ill, minimal respiratory distress SKIN: Pallor, warm HEENT: Pale palpebral conjunctivae, no ptosis, dry buccal mucosa, BiPAP in place NECK : Supple, no tenderness CHEST : Decreased breath sounds, no tenderness HEART : RRR, no obvious murmurs ABDOMEN: Some distention, PEG tube in place, nontender EXTREMITIES : No LE swelling/tenderness, no other conspicuous deformities noted NEUROLOGIC : Coherent, no facial asymmetry, mild hearing impairment, gait and stance not assessed Principal Diagnosis Recurrent aspiration pneumonia, sepsis Discharge Exam GENERAL: elderly, thin, +chronically ill appearing, in NAD HEENT: NC/AT, pale palpebral conjunctivae NECK : Supple, no tenderness CHEST : +rhonchi (improved from previous exam) HEART : RRR, no obvious murmurs ABDOMEN: Some distention, PEG tube in place, nontender EXTREMITIES : No LE swelling/tenderness, moves extremities SKIN: Pallor, warm NEUROLOGIC : awake, alert, oriented, no facial asymmetry, mild hearing impairment, moves extremities Discharge Data Allergies Allergy/AdvReac Type Severity Reaction Status Date / Time No Known Allergies Allergy Verified 10/18/22 18:52 Consultations 10/18/22 19:20 ED Decision to Admit Stat 10/18/22 22:10 Consult Pulmonology Routine Hospital Course (1) Acute on chronic respiratory failure with hypoxia and hypercapnia: Acute on chronic recurrent COPD exacerbation and recurrent aspiration pneumonia Recent bout of Pseudomonas pneumonia status post Levaquin Rx hx chronic pulmonary aspiration status post PEG tube placement on tube feeds Severe sepsis SIRS plus hypotension secondary to above PCU given hypotension CS, Zosyn, Doxycycline MRSA swab, change Doxycycline to Vancomycin if MRSA swab positiv mrsa - negative WBC elevated procal 1.4 sputum cultx ordered- normal shalom Continue aspiration precautions Nebs RTC, steroid course Pulmonary consult RE COPD exacerbation, recurrent admissions (Patient and son may be more receptive to palliative approach to chronic lung disease after specialist input.) Per pulmonary med - resp. failure, hypoxia secondary to recurrent aspiration, not likely copd exacerb., cont. Abx -> can switch to augmentin IVF Troponin elevation secondary illness repeat troponin reviewed chronic diastolic heart failure, patient on the dry side chronic LBBB hx CAD status post CABG status post bioprosthetic AVR hyperlipidemia, on statin Rx nasopharyngeal cancer status post chemoradiation, in remission hx severe epistaxis status post bilateral sphenopalatine artery embolization chronic anemia, hemoglobin better than baseline secondary to hemoconcentration past tobacco abuse Total Time Total Time Spent Total Time Spent (In Minutes): 40 Discharge Plan Discharge Items Patient Disposition: Home - Self-Care Reason For Visit: HYPOTENSION, SEPSIS Discharge Diagnosis: Recurrent aspiration pneumonia, sepsis Activity: Per Instructions section Non-emergency contact: Primary Care Provider Call non-emergency contact if: you have any medication questions and your symptoms worsen Follow-up/Referrals: Prudencio Burns MD [Primary Care Provider] - (Date & Time 10/27/2022 2:00 PM Provider Pruedncio Burns III, MD Department [facility] ) Diet: Other - See Diet Comment Diet Comment: on tube feeds Addtl Attending Provider Instructions: Follow up with your primary care doctor within 1 week. The appointment was scheduled for you for 10/27/2022. Follow aspiration precautions as much as possible to prevent further aspiration events. Continue using flutter valve and guaifenesin. Also, finish antibiotic treatment with augmentin as prescribed. Pending Studies at Discharge: Yes Studies:: final blood cultx results Stand-Alone Forms: My [facility] NEXGR[employer], Smoking Cessation Medications and DC Order Prescriptions: New amoxicillin-pot clavulanate 875-125 mg tablet 1 tab PO BID 12 Days Qty: 24 0RF guaifenesin 100 mg/5 mL Liquid 200 mg J-tube QID Qty: 473 0RF Continued atorvastatin 40 mg Tablet 40 mg feeding tube QPM nitroglycerin 0.4 mg Tablet, Sublingual 0.4 mg sublingual UD PRN (Reason: Chest Pain) Rx Instructions: NEEDEDFOR CHEST PAIN : ONE TABLET UNDER THE TONGUE EVERY 5 MINUTES UP TO THREE DOSES. albuterol sulfate [ProAir HFA] 90 mcg/actuation HFA aerosol inhaler 2 inh inhalation Q6H PRN (Reason: shortness of breath or wheezing) Qty: 8.5 0RF Nutren 2.0 0.08 gram-2 kcal/mL Liquid 1 ea feeding tube QID Rx Instructions: administer via pump ipratropium-albuterol 0.5 mg-3 mg(2.5 mg base)/3 mL solution for nebulization 3 ml inhalation Q6H PRN (Reason: Shortness Of Breath ) lorazepam 0.5 mg tablet 0.5 mg feeding tube HS PRN (Reason: Anxiety) ibuprofen [Children's Advil] 100 mg/5 mL Suspension 0 mg PO Q6H PRN (Reason: Fever Or Pain) Discharge Orders: Discharge Order (Routine); Ordered 10/21/22 Ordered By: Braulio Dalton Admission Data Admit Date/Time: 10/18/22 20:57 Attending Provider: Braulio Dalton Admit Provider: Alonso Rodriguez Primary Care Provider: Prudencio Burns Other Providers: Alonso Rodriguez ; Kevin Quiles ; Ricky Mendez ; Tylor Umanzor ; Gilberto Muhammad ; Johnny Harrington ; Martha Marina ; Sunitha Roy ; Fabian Caal ; Prudencio Dubose
== END 2022-10-21 17:28 | disposition home or self-care (01) | DRG 871 ==
LOC: ED 16:56 → SUATTDRO 20:57 → EDINP 20:57 → 4W 21:33

== ENCOUNTER 2022-12-03 17:23 | Inpatient (IN) ==
[2022-12-03] MEDS ORDERED: RAPID SEQUENCE INDUCTION BAG ONE (17:34)
[2022-12-03] MEDS ORDERED: NOREPINEPHRINE/D5W 4 MG/250 ML IV ONE (17:51)
[2022-12-03] MEDS ORDERED: PROPOFOL BOLUS FROM BAG IV PRN (17:52)
[2022-12-03] MEDS ORDERED: STAT IV Infusion **Titration per Protocol STA ×3 (17:52→21:54)
[2022-12-03] MEDS ORDERED: PIPERACILLIN/TAZOBACTAM 4.5 GM/100 ML BAG IV ONE (17:54)
[2022-12-03] MEDS ORDERED: ROCURONIUM BROMIDE 10 MG/ML 5 ML VIAL IV ONE (17:55)
[2022-12-03] MEDS ORDERED: fentaNYL citrate PF 100 MCG/2 ML VIAL IV ONE (17:55)
[2022-12-03] MEDS ORDERED: KETAMINE HCL INJ 100 MG/ML 5ML VIAL IV ONE (17:55)
[2022-12-03] MEDS: Standard Conc; 4mg in 250mL IV SCH ×3 (17:55→23:03)
[2022-12-03] MEDS ORDERED: propofoL 1,000 MG/100 ML VIAL IV SCH (18:00)
[2022-12-03] MEDS ORDERED: NOREPINEPHRINE/D5W 4 MG/250 ML PLCT IV SCH (18:00)
[2022-12-03] MEDS ORDERED: SODIUM CHLORIDE 0.9% 1,000 ML IV ONE (18:01)
[2022-12-03 18:02] LABS: iSTAT Hemoglobin 16.3 g/dl (14.0-18.0); iSTAT Ionized Calcium 1.16 mmol/l (1.12-1.32)
[2022-12-03 18:03] LABS: Base Excess VBG 6.9 mEq/L; HCO3 VBG 39 mmol/L; Oxygen Saturation VBG < 60.0 %; PCO2 VBG 99 mmHg (38-50); PO2 VBG 26 mmHg
[2022-12-03 18:09] LABS: Basophils # (auto) 0.07 K/uL (0.00-0.20); Basophils % (auto) 0.3 %; Eosinophils # (auto) 0.21 K/uL (0.00-0.50); Eosinophils % (auto) 0.9 %; Hematocrit (blood only) 46.9 % (42.0-52.0); Hemoglobin 14.7 g/dl (14.0-18.0); Immature Granulocytes # (auto) 0.11 K/uL (0.01-0.20); Immature Granulocytes % (auto) 0.5 %; Lymphocytes % (auto) 15.7 %; Mean Corpuscular Hemoglobin 31.6 pg (25.0-34.0); Mean Corpuscular Hgb Conc 31.3 g/dL (32.0-36.0); Mean Corpuscular Volume 100.9 fL (80.0-100.0); Mean Platelet Volume 12.2 fL (9.4-12.4); Monocytes # (auto) 0.87 K/uL (0.11-0.59); Monocytes % (auto) 3.9 %; Neutrophils # (auto) 17.53 K/uL (1.40-6.50); Neutrophils % (auto) 78.7 %; Platelet Count 226 K/uL (130-400); RDW Coefficient of Variation 15.5 % (11.5-14.5); RDW Standard Deviation 57.4 fL (36.4-46.3); Red Blood Count 4.65 M/uL (4.70-6.10); White Blood Count 22.29 K/ul (4.8-10.8)
[2022-12-03] MEDS ORDERED: fentaNYL citrate PF 100 MCG/2 ML VIAL ONE (18:13)
[2022-12-03] MEDS ORDERED: HEPARIN (PORCINE) 1000 UNIT/ML 10 ML (CATH LAB USE ONLY) ONE (18:13)
[2022-12-03] MEDS ORDERED: MIDAZOLAM HCL 1 MG/ML 2ML VIAL ONE (18:13)
[2022-12-03] MEDS ORDERED: niCARdipine HCL INJ 2.5 MG/ML 10 ML AMP ONE (18:13)
--- NOTE | 2022-12-03 18:21 | XRay Report ---
XR chest 1V portable CLINICAL HISTORY: Sepsis TECHNIQUE: Single frontal radiograph of the chest was obtained. Comparison: Comparison is made to chest radiograph 11/09/2022 FINDINGS: Endotracheal tube terminates 3.3 cm from the steven. Median sternotomy wires are seen. The cardiomedi astinal silhouette is normal. Bronchial wall thickening is seen. There are likely superimposed airspa ce opacities. No evidence of pleural effusion or pneumothorax. IMPRESSION: 1. Likely multifocal airspace opacities compatible with pneumonia. 2. Satisfactory appearance of endotracheal tube. ACT 112: Negative or not required by law. Electronically signed by: Cresencio Esposito M.D. 12/03/2022 6:18 PM
[2022-12-03] MEDS ORDERED: NITROGLYCERIN/D5W 100MCG/ML 20ML SYR ONE (18:27)
[2022-12-03 18:34] LABS: Alanine Aminotransferase 37 U/L (7-52); Albumin Level 3.8 gm/dl (3.4-5.0); Alkaline Phosphatase 170 U/L (34-104); Anion Gap 7 (3-11); Aspartate Aminotransferase 75 U/L (13-39); BUN Creatinine Ratio 51.5 (10-20); Bilirubin Direct 0.2 mg/dl (0-0.2); Bilirubin,Total 0.4 mg/dl (0.2-1.0); Blood Urea Nitrogen 51 mg/dl (6-23); Calcium 9.6 mg/dl (8.6-10.3); Carbon Dioxide 36 mmol/L (21-32); Chloride 102 mmol/L (98-107); Est GFR (African American) 84.2 ml/min; Est GFR (Non-African American) 72.6 ml/min; Glucose 79 mg/dl (70-99(Fasting)); Magnesium 2.6 mg/dl (1.7-2.4); Sodium 145 mmol/L (136-145); Total Protein 8.7 gm/dl (6.0-8.3)
[2022-12-03 18:37] LABS: Troponin I High Sensitivity 14.4 pg/ml (0-20)
[2022-12-03 18:40] LABS: Partial Thromboplastin Ratio 0.9; Partial Thromboplastin Time 26.3 Seconds (21.0-31.0); Prothrombin Time 11.4 Seconds (9.0-12.0)
--- NOTE | 2022-12-03 18:42 | Emergency Department Note ---
Impression & Plan Acute respiratory distress, Acute respiratory failure with hypoxia and hypercapnia, Acute exacerbation of chronic obstructive pulmonary disease, Acute respiratory acidosis, Abnormal EKG, Cardiac arrest ED Provider Note NAME: DAXA WRIGHT AGE: 77 SEX: M : 1945 ARRIVES VIA: Ambulance INFORMANT: Patient, EMS personnel, the patient's son ED PROVIDER(S): Vu Nelson DO CHIEF COMPLAINT: Respiratory distress HPI: The patient is a 77-year-old male who I have met in the past who presented to the emergency department for an evaluation of severe respiratory distress. He has a history of COPD but also has had volume overload in the past. He was unable to give much history although he was able to talk at times and explained that he does not have chest pain at this time. He was placed on BiPAP prior to arrival after I received a prehospital notification. The patient states he has been having worsening difficulty breathing over the course the last week. His son states that this became significantly worse over the last 24 hours. He denies having any leg swelling. He denies having any abdominal pain or fever. He has had a productive cough. ROS: See above HPI for pertinent positives & negatives. A total of 10 systems reviewed and were otherwise negative. PAST MEDICAL HISTORY: See Below PAST SURGICAL HISTORY: See Below FAMILY HISTORY: See Below SOCIAL HISTORY: See Below HOME MEDICATIONS: See Below ALLERGIES: See Below VITALS: See Below PHYSICAL EXAMINATION: GENERAL: The patient is awake but very lethargic. He appears to be having significant difficulty breathing. EYES: The conjunctivae are clear. The pupils are round and reactive. EARS, NOSE, MOUTH AND THROAT: The nose is without any evidence of any deformity. NECK: The neck is nontender and supple. RESPIRATORY: Diminished breath sounds are noted throughout. There is abdominal breathing as well as tractions. Rales were auscultated throughout. CARDIOVASCULAR: Tachycardic and regular heart sounds were noted to auscultation. There is no definite murmur. GASTROINTESTINAL: The abdomen is soft. Abdomen is nontender. MUSCULOSKELETAL/EXTREMITIES: There is no evidence of gross deformity full range of motion is noted in the hips and shoulders. SKIN: Skin was warm and dry. There is no significant pedal edema. NEUROLOGIC: The patient is lethargic but answers questions. He is oriented to person and place. Strength is symmetric but diminished. MEDICAL DECISION MAKING: The patient is a 77-year-old male who presented to the emergency department in respiratory distress. The patient has a history of COPD but he is also had volume overload in the past. He presented to the emergency department in extremis. He was placed on BiPAP prior to arrival after prehospital personnel phone call. The patient was treated with IV fluids for hypotension. He started to have worsening respiratory drive and the decision was made to intubate the patient. The patient was intubated in usual fashion. He did present to the emergency department with an abnormal EKG. There is concern that this could be secondary to cardiac ischemia or possibly pulmonary embolism. For this reason heart alert was called. He was evaluated in the emergency department by the swimming pool plasterer helper however it was felt that the patient was too unstable for cardiac catheterization at this time and the patient denied having any chest pain when he was still talking. I discussed the patient's laboratory and radiographic studies with his son. I discussed the patient's condition with the intensive care unit as well as the [facility]. They have agreed to evaluate the patient in the emergency department for further management and disposition. The patient was reevaluated multiple times. He did have CPR at 1 point. He had spontaneous return of circulation. He was placed on pressors. He was treated with further IV fluids as well as IV antibiotics and IV steroids. Triage Nursing notes reviewed. Prior medical records reviewed. Paperwork with the son was reviewed. Vital Signs: reviewed and remarkable for hypoxia and hypotension. He was also tachycardic at times. Differential diagnosis: Reactive airway disease, pneumonia, pneumothorax, COPD, CHF, infections, cardiac ischemia, pulmonary embolism, musculoskeletal, gastrointestinal, as well as other pathologies. ER treatment provided: See below Diagnostics interpreted by me: ECG: EKG was obtained in the emergency department. My interpretation is sinus tachycardia at [address] depressions were noted. There were no PVCs. This was compared to a tracing from November 09, 2022. The ischemic changes are new compared to the previous tracing. A second EKG was obtained in the emergency department. My interpretation is normal sinus rhythm at [address] depressions were noted in the inferior apical and low lateral leads. Heart alert was called at this time. This shows progression from the previous EKG. A third EKG was obtained in the emergency department. My interpretation is sinus rhythm at 64 bpm. No PVCs were noted. Improvement of the previously noted inferior and lateral ST depressions was noted. A fourth EKG was obtained in the emergency department. My interpretation is sinus tachycardia at 113 bpm. Continued improvement of the inferior and low lateral ST depressions was noted. This compares similar to the previous tracings. Cardiac Monitoring: An order was placed for continuous cardiac monitoring. The monitor shows a rate of 122 bpm with sinus rhythm. Laboratory studies: As stated above and show below. Imaging studies: See below. Radiographic imaging was reviewed by myself Consultation(s): I discussed this case with Dr. Avelar who is on for heart alert. The patient does not appear to meet STEMI criteria at this time and he is very unstable. Is available if the patient's condition improves or if he starts to have more of a STEMI looking presentation and EKG. I discussed this case with Sam who is on for the ICU. He presented to the emergency department for the CODE BLUE. I discussed this case with Janice who is on-call for the [facility] group. ED COURSE: Procedures: Endotracheal Intubation Indication respiratory distress. The patient was on 100% oxygen via NRB prior to the procedure. Suction, airway equipment, RSI drugs, respiratory equipment, and appropriate personnel were prepared prior to the initiation of the procedure. A time out was taken. Induction was performed with ketamine and rocuronium. After observing the clinical benefit of the medications, the airway was easily visualized utilizing a glide scope. A 7.5 size ETT tube was placed atraumatically to 24 cm using standard technique. The cuff inflated without signs of malfunction. There were bilateral breath sounds, positive colormetric change, no gastric sounds, a good capnography waveform, and post procedure pulse oximetry was 96%. Post intubation sedation and paralysis was administered using propofol. There were no complications. Femoral Central Venous Catheter Indication: Hypotension Catheter Type: Triple-lumen Location: Right femoral vein Verbal consent was obtained after the risks and benefits were explained, including but not limited to intra-abdominal injury, vessel injury, bleeding, scarring, infection, pain, and bone/joint/nerve damage. At this time, the risks of the procedure are less than the risks of NOT performing the procedure. A time out was taken and the correct patient and site identified. The patient was placed in the supine position and the skin was prepped in the standard fashion with chlorhexidine and full sterile drapes applied. The proper landmarks were identified with ultrasound, anesthetized with 1% lidocaine without epinephrine, and the needle was inserted through the skin in the standard fashion. The needle was carefully advanced into blood vessel lumen with ultrasound guidance. The guidewire was placed uneventfully. The vessel is dilated and the catheter was placed. It was sutured into position. There was good blood return from all ports. The patient tolerated the procedure well and there were no complications. PDMP:reviewed and no issues Critical Care: I have personally spent greater than 65 minutes of critical care time in the direct management of this patient. This includes bedside care, interpretation of diagnostic studies, and testing, discussion with consultants, patient, and family members, and other required patient management activities. This 65 minutes is in excess of all separately billable procedures. 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 Milton- [facility]/ NO STENTS History of cataract surgery History of colonoscopy with polypectomy 09/25/2018. Propofol given, no issues. History of coronary artery bypass graft One vessel - 2016 - [facility] History of heart valve replacement Bioprosthetic aortic valve - 2016 History of shoulder surgery RIGHT History of tonsillectomy History of tooth extraction History of vascular access device NO LONGER HAS PORT Hx of aortic valve replacement Status post insertion of percutaneous endoscopic gastrostomy (PEG) tube PLACED DUE TO PALATE SURGERY- THEN REMOVED 2014 Family History Father Cancer Liver Cancer Social History Smoking Status: Unknown if ever smoked Tobacco Type: Cigarettes Second Hand Exposure: No; Do You Dip or Chew Tobacco: No; Hx Alcohol Use: No Hx Substance Use: No Preferred Language: Mosotho Communication Ability: Effective Communication Ability Comment: Has tablet Bobcat Driver/Labor Required: Yes Beliefs That Will Affect Care: None marital status: / Current Living Situation: Family Current Living Situation Comment: Patient lives at home with sonAnthony. How many Children do You have: 1 Feels Safe at Home: Yes Assistive Devices: Cane and Other Allergies Allergies Allergy/AdvReac Type Severity Reaction Status Date / Time No Known Allergies Allergy Verified 10/18/22 18:52 Home Meds Home Medications Medication Instructions Recorded Confirmed atorvastatin 40 mg tablet 40 mg feeding tube QPM 09/18/18 12/03/22 nitroglycerin 0.4 mg sublingual 0.4 mg sublingual UD PRN Chest Pain 09/18/18 12/03/22 tablet nutritional supplements 0.08 1 ea feeding tube DIRECTED 02/19/21 10/26/22 gram-2 kcal/mL liquid for tube feed (Nutren 2.0) ipratropium 0.5 mg-albuterol 3 mg 3 ml inhalation Q6H PRN Shortness 09/05/22 12/03/22 (2.5 mg base)/3 mL nebulization Of Breath soln lorazepam 0.5 mg tablet 0.5 mg feeding tube HS PRN Anxiety 10/18/22 12/03/22 Previous Rx's Medication Instructions Recorded albuterol sulfate 90 mcg/actuation 2 inh inhalation Q6H PRN shortness 05/06/20 aerosol inhaler (ProAir HFA) of breath or wheezing #8.5 grams midodrine 2.5 mg tablet 2.5 mg PO TID@0800,1200,1700 #90 11/05/22 tabs Results & Data (ED) Vital Signs Vital Signs - 24 hr 12/03/22 17:28 12/03/22 17:56 12/03/22 18:09 Temperature Temperature Source Pulse Rate 140 H 70 44 L Pulse Rate from SpO2 Sensor Respiratory Rate Respiratory Effort / Characteristics Respiratory Depth Respiratory Pattern Blood Pressure Blood Pressure Mean Pulse Oximetry Oxygen Delivery Method Fraction of Inspired Oxygen Sepsis Recent Fever Within 48 Hours Sepsis New/Unexplained Change in Mental Status Sepsis Action Taken by Nursing End-Tidal CO2 12/03/22 17:29 12/03/22 17:30 12/03/22 17:32 Temperature Temperature Source Pulse Rate 140 H 140 H 139 H Pulse Rate from SpO2 Sensor Respiratory Rate 22 20 17 Respiratory Effort / Characteristics Respiratory Depth Respiratory Pattern Blood Pressure Blood Pressure Mean Pulse Oximetry Oxygen Delivery Method Fraction of Inspired Oxygen Sepsis Recent Fever Within 48 Hours Sepsis New/Unexplained Change in Mental Status Sepsis Action Taken by Nursing End-Tidal CO2 12/03/22 17:32 12/03/22 17:40 12/03/22 17:48 Temperature Temperature Source Pulse Rate 139 H Pulse Rate from SpO2 Sensor Respiratory Rate 25 H Respiratory Effort / Characteristics Respiratory Depth Respiratory Pattern Blood Pressure 80/61 L 47/29 L Blood Pressure Mean 66 37 Pulse Oximetry Oxygen Delivery Method Fraction of Inspired Oxygen Sepsis Recent Fever Within 48 Hours Sepsis New/Unexplained Change in Mental Status Sepsis Action Taken by Nursing End-Tidal CO2 12/03/22 17:48 12/03/22 17:50 12/03/22 17:51 Temperature Temperature Source Pulse Rate 140 H 123 H 103 H Pulse Rate from SpO2 Sensor Respiratory Rate 22 15 17 Respiratory Effort / Characteristics Respiratory Depth Respiratory Pattern Blood Pressure Blood Pressure Mean Pulse Oximetry Oxygen Delivery Method Fraction of Inspired Oxygen Sepsis Recent Fever Within 48 Hours Sepsis New/Unexplained Change in Mental Status Sepsis Action Taken by Nursing End-Tidal CO2 12/03/22 17:51 12/03/22 18:00 12/03/22 18:10 Temperature Temperature Source Pulse Rate 69 Pulse Rate from SpO2 Sensor Respiratory Rate 18 Respiratory Effort / Characteristics Respiratory Depth Respiratory Pattern Blood Pressure 56/35 L Blood Pressure Mean 63 36 Pulse Oximetry Oxygen Delivery Method Fraction of Inspired Oxygen Sepsis Recent Fever Within 48 Hours Sepsis New/Unexplained Change in Mental Status Sepsis Action Taken by Nursing End-Tidal CO2 12/03/22 18:10 12/03/22 18:18 12/03/22 18:18 Temperature Temperature Source Pulse Rate 75 137 H Pulse Rate from SpO2 Sensor 138 H Respiratory Rate 18 Respiratory Effort / Characteristics Respiratory Depth Respiratory Pattern Blood Pressure 168/70 H Blood Pressure Mean 102 Pulse Oximetry 96 Oxygen Delivery Method Fraction of Inspired Oxygen Sepsis Recent Fever Within 48 Hours Sepsis New/Unexplained Change in Mental Status Sepsis Action Taken by Nursing End-Tidal CO2 79 12/03/22 18:20 12/03/22 18:20 12/03/22 18:21 Temperature Temperature Source Pulse Rate 135 H 132 H Pulse Rate from SpO2 Sensor 134 H 132 H Respiratory Rate 23 22 Respiratory Effort / Characteristics Respiratory Depth Respiratory Pattern Blood Pressure 163/75 H Blood Pressure Mean 101 Pulse Oximetry 97 96 Oxygen Delivery Method Fraction of Inspired Oxygen Sepsis Recent Fever Within 48 Hours Sepsis New/Unexplained Change in Mental Status Sepsis Action Taken by Nursing End-Tidal CO2 72 66 12/03/22 18:21 12/03/22 18:22 12/03/22 18:22 Temperature Temperature Source Pulse Rate 130 H Pulse Rate from SpO2 Sensor 130 H Respiratory Rate 22 Respiratory Effort / Characteristics Respiratory Depth Respiratory Pattern Blood Pressure 147/72 H 138/64 Blood Pressure Mean 97 96 Pulse Oximetry 97 Oxygen Delivery Method Fraction of Inspired Oxygen Sepsis Recent Fever Within 48 Hours Sepsis New/Unexplained Change in Mental Status Sepsis Action Taken by Nursing End-Tidal CO2 64 12/03/22 18:24 12/03/22 18:24 12/03/22 17:20 Temperature Temperature Source Pulse Rate 126 H Pulse Rate from SpO2 Sensor 125 H Respiratory Rate 22 Respiratory Effort / Characteristics Short of Breath SOB on Exertion Respiratory Depth Retractive Respiratory Pattern Tachypnea Blood Pressure 113/63 Blood Pressure Mean 100 Pulse Oximetry 98 Oxygen Delivery Method Fraction of Inspired Oxygen Sepsis Recent Fever Within 48 Hours Sepsis New/Unexplained Change in Mental Status Sepsis Action Taken by Nursing End-Tidal CO2 61 12/03/22 17:20 12/03/22 17:20 12/03/22 18:55 Temperature 35.8 C L Temperature Source Axillary Rectal Pulse Rate 118 H Pulse Rate from SpO2 Sensor Respiratory Rate 40 H 22 Respiratory Effort / Characteristics Short of Breath Respiratory Depth Retractive Respiratory Pattern Tachypnea Blood Pressure Blood Pressure Mean Pulse Oximetry 98 Oxygen Delivery Method CPAP Fraction of Inspired Oxygen 100 Sepsis Recent Fever Within 48 Hours No Sepsis New/Unexplained Change in Mental Status Yes Sepsis Action Taken by Nursing Physician Notified End-Tidal CO2 55 12/03/22 18:17 12/03/22 18:26 12/03/22 18:26 Temperature Temperature Source Pulse Rate 138 H 121 H Pulse Rate from SpO2 Sensor 121 H Respiratory Rate 22 Respiratory Effort / Characteristics Respiratory Depth Respiratory Pattern Blood Pressure 85/55 L Blood Pressure Mean 66 Pulse Oximetry 100 Oxygen Delivery Method Fraction of Inspired Oxygen Sepsis Recent Fever Within 48 Hours Sepsis New/Unexplained Change in Mental Status Sepsis Action Taken by Nursing End-Tidal CO2 51 10/27/23 18:27 12/03/22 18:27 12/03/22 18:28 Temperature Temperature Source Pulse Rate 119 H Pulse Rate from SpO2 Sensor 120 H Respiratory Rate 22 Respiratory Effort / Characteristics Respiratory Depth Respiratory Pattern Blood Pressure 91/54 L 93/53 L Blood Pressure Mean 71 62 Pulse Oximetry 99 Oxygen Delivery Method Fraction of Inspired Oxygen Sepsis Recent Fever Within 48 Hours Sepsis New/Unexplained Change in Mental Status Sepsis Action Taken by Nursing End-Tidal CO2 53 12/03/22 18:28 12/03/22 18:30 12/03/22 18:30 Temperature Temperature Source Pulse Rate 118 H 115 H Pulse Rate from SpO2 Sensor 117 H 115 H Respiratory Rate 22 22 Respiratory Effort / Characteristics Respiratory Depth Respiratory Pattern Blood Pressure 94/59 L Blood Pressure Mean 79 Pulse Oximetry 99 99 Oxygen Delivery Method Fraction of Inspired Oxygen Sepsis Recent Fever Within 48 Hours Sepsis New/Unexplained Change in Mental Status Sepsis Action Taken by Nursing End-Tidal CO2 51 49 12/03/22 18:32 12/03/22 18:32 12/03/22 18:34 Temperature Temperature Source Pulse Rate 114 H 113 H Pulse Rate from SpO2 Sensor 114 H 113 H Respiratory Rate 22 23 Respiratory Effort / Characteristics Respiratory Depth Respiratory Pattern Blood Pressure 92/52 L Blood Pressure Mean 74 Pulse Oximetry 99 99 Oxygen Delivery Method Fraction of Inspired Oxygen Sepsis Recent Fever Within 48 Hours Sepsis New/Unexplained Change in Mental Status Sepsis Action Taken by Nursing End-Tidal CO2 50 38 12/03/22 18:34 12/03/22 18:36 12/03/22 18:36 Temperature Temperature Source Pulse Rate 112 H Pulse Rate from SpO2 Sensor 112 H Respiratory Rate 22 Respiratory Effort / Characteristics Respiratory Depth Respiratory Pattern Blood Pressure 84/47 L 84/50 L Blood Pressure Mean 58 68 Pulse Oximetry 99 Oxygen Delivery Method Fraction of Inspired Oxygen Sepsis Recent Fever Within 48 Hours Sepsis New/Unexplained Change in Mental Status Sepsis Action Taken by Nursing End-Tidal CO2 47 12/03/22 18:38 12/03/22 18:38 12/03/22 18:58 Temperature Temperature Source Pulse Rate 116 H 115 H Pulse Rate from SpO2 Sensor 116 H 115 H Respiratory Rate 22 17 Respiratory Effort / Characteristics Respiratory Depth Respiratory Pattern Blood Pressure 121/58 L Blood Pressure Mean 95 Pulse Oximetry 99 98 Oxygen Delivery Method Fraction of Inspired Oxygen Sepsis Recent Fever Within 48 Hours Sepsis New/Unexplained Change in Mental Status Sepsis Action Taken by Nursing End-Tidal CO2 55 54 12/03/22 18:59 12/03/22 18:59 12/03/22 19:00 Temperature Temperature Source Pulse Rate 115 H Pulse Rate from SpO2 Sensor Respiratory Rate 23 Respiratory Effort / Characteristics Respiratory Depth Respiratory Pattern Blood Pressure 103/63 108/63 Blood Pressure Mean 76 84 Pulse Oximetry Oxygen Delivery Method Fraction of Inspired Oxygen Sepsis Recent Fever Within 48 Hours Sepsis New/Unexplained Change in Mental Status Sepsis Action Taken by Nursing End-Tidal CO2 47 12/03/22 19:00 12/03/22 19:02 12/03/22 19:02 Temperature Temperature Source Pulse Rate 114 H 114 H Pulse Rate from SpO2 Sensor 114 H 114 H Respiratory Rate 22 22 Respiratory Effort / Characteristics Respiratory Depth Respiratory Pattern Blood Pressure 95/62 L Blood Pressure Mean 76 Pulse Oximetry 97 96 Oxygen Delivery Method Fraction of Inspired Oxygen Sepsis Recent Fever Within 48 Hours Sepsis New/Unexplained Change in Mental Status Sepsis Action Taken by Nursing End-Tidal CO2 46 32 12/03/22 19:04 12/03/22 19:04 12/03/22 19:06 Temperature Temperature Source Pulse Rate 114 H 114 H Pulse Rate from SpO2 Sensor 114 H 114 H Respiratory Rate 22 22 Respiratory Effort / Characteristics Respiratory Depth Respiratory Pattern Blood Pressure 97/60 L Blood Pressure Mean 81 Pulse Oximetry 95 94 Oxygen Delivery Method Fraction of Inspired Oxygen Sepsis Recent Fever Within 48 Hours Sepsis New/Unexplained Change in Mental Status Sepsis Action Taken by Nursing End-Tidal CO2 26 43 12/03/22 19:06 12/03/22 19:08 12/03/22 19:08 Temperature Temperature Source Pulse Rate 115 H Pulse Rate from SpO2 Sensor 114 H Respiratory Rate 22 Respiratory Effort / Characteristics Respiratory Depth Respiratory Pattern Blood Pressure 92/52 L 87/65 L Blood Pressure Mean 63 70 Pulse Oximetry 92 Oxygen Delivery Method Fraction of Inspired Oxygen Sepsis Recent Fever Within 48 Hours Sepsis New/Unexplained Change in Mental Status Sepsis Action Taken by Nursing End-Tidal CO2 40 Home Medications Current Medication List: was personally reviewed by me Laboratory Data Attestation: I reviewed the patient's lab results. 12/03/22 17:40 12/03/22 17:40 Lab Results 12/03/22 12/03/22 12/03/22 Range/Units 17:40 17:40 17:40 WBC 22.29 H (4.8-10.8) K/ul RBC 4.65 L (4.70-6.10) M/uL Hgb 14.7 (14.0-18.0) g/dl POC Hgb (14.0-18.0) g/dl Hct 46.9 (42.0-52.0) % POC Hct (42-52) % MCV 100.9 H (80.0-100.0) fL MCH 31.6 (25.0-34.0) pg MCHC 31.3 L (32.0-36.0) g/dL RDW Std Deviation 57.4 H (36.4-46.3) fL RDW Coeff of Navid 15.5 H (11.5-14.5) % Plt Count 226 (130-400) K/uL MPV 12.2 (9.4-12.4) fL Immature Gran % (Auto) 0.5 % Neut % (Auto) 78.7 % Lymph % (Auto) 15.7 % Bureau % (Auto) 3.9 % Eos % (Auto) 0.9 % Baso % (Auto) 0.3 % Neut # (Auto) 17.53 H (1.40-6.50) K/uL Lymph # (Auto) 3.50 H (1.20-3.40) K/uL Bureau # (Auto) 0.87 H (0.11-0.59) K/uL Eos # (Auto) 0.21 (0.00-0.50) K/uL Baso # (Auto) 0.07 (0.00-0.20) K/uL Immature Gran # (Auto) 0.11 (0.01-0.20) K/uL PT 11.4 (9.0-12.0) Seconds INR 1.0 (0.9-1.1) APTT 26.3 (21.0-31.0) Seconds PTT Ratio 0.9 POC pH (7.35-7.45) POC pCO2 (35-46) mmHg POC pO2 (80-95) mmHg POC HCO3 (19-24) seda/L POC Base Excess (-9-1.8) seda/L POC ABG O2 Sat (90-95) % VBG pH (7.36-7.41) VBG pCO2 (38-50) mmHg VBG pO2 mmHg VBG HCO3 mmol/L VBG O2 Saturation % VBG Base Excess mEq/L POC Sodium (135-144) mmol/L Sodium 145 (136-145) mmol/L POC Potassium (3.3-5.0) mmol/L Potassium 4.0 (3.5-5.1) mmol/L POC Chloride (101-112) mmol/L Chloride 102 (98-107) mmol/L Carbon Dioxide 36 H (21-32) mmol/L POC Total CO2 (24-31) mmol/L Anion Gap 7 (3-11) POC Anion Gap (16-25) mmol/L POC BUN (7-18) mg/dl BUN 51 H (6-23) mg/dl Creatinine 0.99 (0.6-1.4) mg/dl POC Creatinine (0.6-1.3) mg/dl Est Cr Clr Drug Dosing Not Reportable Est GFR ( Amer) 84.2 ml/min Est GFR (Non-Af Amer) 72.6 ml/min BUN/Creatinine Ratio 51.5 H (10-20) Glucose 79 (70-99(Fasting)) mg/dl POC Glucose (other) (70-99) mg/dl Lactate (0.4-2.0) mmol/L Calcium 9.6 (8.6-10.3) mg/dl POC Ioniz Calcium Jael (1.12-1.32) mmol/l Magnesium 2.6 H (1.7-2.4) mg/dl Total Bilirubin 0.4 (0.2-1.0) mg/dl Direct Bilirubin 0.2 (0-0.2) mg/dl AST 75 H (13-39) U/L ALT 37 (7-52) U/L Alkaline Phosphatase 170 H (34-104) U/L Troponin I High Sens 14.4 (0-20) pg/ml B-Natriuretic Peptide (0-100) pg/ml Total Protein 8.7 H (6.0-8.3) gm/dl Albumin 3.8 (3.4-5.0) gm/dl Procalcitonin (0-0.5) ng/ml 12/03/22 12/03/22 12/03/22 Range/Units 17:40 17:40 17:40 WBC (4.8-10.8) K/ul RBC (4.70-6.10) M/uL Hgb (14.0-18.0) g/dl POC Hgb (14.0-18.0) g/dl Hct (42.0-52.0) % POC Hct (42-52) % MCV (80.0-100.0) fL MCH (25.0-34.0) pg MCHC (32.0-36.0) g/dL RDW Std Deviation (36.4-46.3) fL RDW Coeff of Navid (11.5-14.5) % Plt Count (130-400) K/uL MPV (9.4-12.4) fL Immature Gran % (Auto) % Neut % (Auto) % Lymph % (Auto) % Bureau % (Auto) % Eos % (Auto) % Baso % (Auto) % Neut # (Auto) (1.40-6.50) K/uL Lymph # (Auto) (1.20-3.40) K/uL Bureau # (Auto) (0.11-0.59) K/uL Eos # (Auto) (0.00-0.50) K/uL Baso # (Auto) (0.00-0.20) K/uL Immature Gran # (Auto) (0.01-0.20) K/uL PT (9.0-12.0) Seconds INR (0.9-1.1) APTT (21.0-31.0) Seconds PTT Ratio POC pH (7.35-7.45) POC pCO2 (35-46) mmHg POC pO2 (80-95) mmHg POC HCO3 (19-24) seda/L POC Base Excess (-9-1.8) seda/L POC ABG O2 Sat (90-95) % VBG pH 7.20 L (7.36-7.41) VBG pCO2 99 H (38-50) mmHg VBG pO2 26 mmHg VBG HCO3 39 mmol/L VBG O2 Saturation < 60.0 % VBG Base Excess 6.9 mEq/L POC Sodium (135-144) mmol/L Sodium (136-145) mmol/L POC Potassium (3.3-5.0) mmol/L Potassium (3.5-5.1) mmol/L POC Chloride (101-112) mmol/L Chloride (98-107) mmol/L Carbon Dioxide (21-32) mmol/L POC Total CO2 (24-31) mmol/L Anion Gap (3-11) POC Anion Gap (16-25) mmol/L POC BUN (7-18) mg/dl BUN (6-23) mg/dl Creatinine (0.6-1.4) mg/dl POC Creatinine (0.6-1.3) mg/dl Est Cr Clr Drug Dosing Est GFR ( Amer) ml/min Est GFR (Non-Af Amer) ml/min BUN/Creatinine Ratio (10-20) Glucose (70-99(Fasting)) mg/dl POC Glucose (other) (70-99) mg/dl Lactate 4.0 H* (0.4-2.0) mmol/L Calcium (8.6-10.3) mg/dl POC Ioniz Calcium Jael (1.12-1.32) mmol/l Magnesium (1.7-2.4) mg/dl Total Bilirubin (0.2-1.0) mg/dl Direct Bilirubin (0-0.2) mg/dl AST (13-39) U/L ALT (7-52) U/L Alkaline Phosphatase (34-104) U/L Troponin I High Sens (0-20) pg/ml B-Natriuretic Peptide (0-100) pg/ml Total Protein (6.0-8.3) gm/dl Albumin (3.4-5.0) gm/dl Procalcitonin 0.51 H (0-0.5) ng/ml 12/03/22 12/03/22 12/03/22 Range/Units 17:40 17:49 18:34 WBC (4.8-10.8) K/ul RBC (4.70-6.10) M/uL Hgb (14.0-18.0) g/dl POC Hgb 16.3 11.6 L (14.0-18.0) g/dl Hct (42.0-52.0) % POC Hct 48 34 L (42-52) % MCV (80.0-100.0) fL MCH (25.0-34.0) pg MCHC (32.0-36.0) g/dL RDW Std Deviation (36.4-46.3) fL RDW Coeff of Navid (11.5-14.5) % Plt Count (130-400) K/uL MPV (9.4-12.4) fL Immature Gran % (Auto) % Neut % (Auto) % Lymph % (Auto) % Bureau % (Auto) % Eos % (Auto) % Baso % (Auto) % Neut # (Auto) (1.40-6.50) K/uL Lymph # (Auto) (1.20-3.40) K/uL Bureau # (Auto) (0.11-0.59) K/uL Eos # (Auto) (0.00-0.50) K/uL Baso # (Auto) (0.00-0.20) K/uL Immature Gran # (Auto) (0.01-0.20) K/uL PT (9.0-12.0) Seconds INR (0.9-1.1) APTT (21.0-31.0) Seconds PTT Ratio POC pH 7.08 L* (7.35-7.45) POC pCO2 104 H (35-46) mmHg POC pO2 57 L (80-95) mmHg POC HCO3 31 H (19-24) seda/L POC Base Excess 1.0 (-9-1.8) seda/L POC ABG O2 Sat 74.0 L (90-95) % VBG pH (7.36-7.41) VBG pCO2 (38-50) mmHg VBG pO2 mmHg VBG HCO3 mmol/L VBG O2 Saturation % VBG Base Excess mEq/L POC Sodium 146 H 145 H (135-144) mmol/L Sodium (136-145) mmol/L POC Potassium 4.0 3.4 (3.3-5.0) mmol/L Potassium (3.5-5.1) mmol/L POC Chloride 101 (101-112) mmol/L Chloride (98-107) mmol/L Carbon Dioxide (21-32) mmol/L POC Total CO2 39 H 34 H (24-31) mmol/L Anion Gap (3-11) POC Anion Gap 12.0 L (16-25) mmol/L POC BUN 58 H (7-18) mg/dl BUN (6-23) mg/dl Creatinine (0.6-1.4) mg/dl POC Creatinine 1.0 (0.6-1.3) mg/dl Est Cr Clr Drug Dosing Est GFR ( Amer) ml/min Est GFR (Non-Af Amer) ml/min BUN/Creatinine Ratio (10-20) Glucose (70-99(Fasting)) mg/dl POC Glucose (other) 84 (70-99) mg/dl Lactate (0.4-2.0) mmol/L Calcium (8.6-10.3) mg/dl POC Ioniz Calcium Jael 1.16 (1.12-1.32) mmol/l Magnesium (1.7-2.4) mg/dl Total Bilirubin (0.2-1.0) mg/dl Direct Bilirubin (0-0.2) mg/dl AST (13-39) U/L ALT (7-52) U/L Alkaline Phosphatase (34-104) U/L Troponin I High Sens (0-20) pg/ml B-Natriuretic Peptide 87 (0-100) pg/ml Total Protein (6.0-8.3) gm/dl Albumin (3.4-5.0) gm/dl Procalcitonin (0-0.5) ng/ml Administered Medications Norepinephrine Bitartrate (Levophed/D5w) 4 mg in 250 mls @ 45.953 mls/hr IV .[id number] [facility]; Protocol Stop: 01/02/23 17:59 Last Titration: 12/03/22 20:45 Dose: 0.22 mcg/kg/min, 46 mls/hr Documented By: Titration: 12/03/22 20:30 Dose: 0.24 mcg/kg/min, 50.1 mls/hr Documented By: Admin: 12/03/22 20:11 Dose: 0.26 mcg/kg/min, 54.3 mls/hr Documented By: JE Co-signed By: SHAY Titration: 12/03/22 20:11 Dose: 0.15 mcg/kg/min, 31.3 mls/hr Documented By: JE Co-signed By: SHAY Titration: 12/03/22 18:36 Dose: 0.15 mcg/kg/min, 31.3 mls/hr Documented By: Titration: 12/03/22 18:28 Dose: 0.12 mcg/kg/min, 25.1 mls/hr Documented By: Titration: 12/03/22 18:10 Dose: 0.09 mcg/kg/min, 18.8 mls/hr Documented By: Titration: 12/03/22 18:05 Dose: 0.07 mcg/kg/min, 14.6 mls/hr Documented By: Admin: 12/03/22 17:55 Dose: 0.05 mcg/kg/min, 10.4 mls/hr Documented By: CHIRAG Co-signed By: ERNESTO Propofol (Diprivan) 1,000 mg in 100 mls @ 6.684 mls/hr IV .[id number] [facility]; Protocol Stop: 12/06/22 17:59 Last Admin: 12/03/22 20:09 Dose: Not Given Documented By: TITUS Meropenem 500 mg/ Syringe 10 mls @ 2 mls/min IV Q6H [facility]; Protocol Stop: 12/10/22 19:59 Last Admin: 12/03/22 21:06 Dose: 2 mls/min Documented By: JORDAN Fentanyl Citrate (Fentanyl Citrate) 2,500 mcg in 250 mls @ 2.5 mls/hr IV .Q96H [facility]; Protocol Stop: 12/17/22 20:55 Last Admin: 12/03/22 20:30 Dose: 25 mcg/hr, 2.5 mls/hr Documented By: JORDAN Co-signed By: DEMARIO Tracey (Icu Protocol For Hyperglycemia) 1 each N/A ACHS [facility] Stop: 12/05/22 20:59 Last Admin: 12/03/22 21:05 Dose: Not Given Documented By: TITUS Hansenaneous (Patient's Height &/Or Weight Needed) 1 each N/A Q2H [facility] Stop: 01/02/23 20:14 Last Admin: 12/03/22 21:05 Dose: 1 each Documented By: TITUS Discontinued Medications Dexamethasone Sodium Phosphate (DexamethasonePf 10 Mg/Ml Vial) 10 mg IV NOW ONE Stop: 12/03/22 19:25 Last Admin: 12/03/22 21:01 Dose: Not Given Documented By: JORDAN Fentanyl Citrate (Fentanyl Citrate Pf 100 Mcg/2 Ml Vial) Confirm Administered Dose 100 mcg .ROUTE .STK-MED ONE Stop: 12/03/22 18:14 Last Admin: 12/03/22 20:10 Dose: Not Given Documented By: CF Fentanyl Citrate (Fentanyl Citrate 2,500 Mcg/250 Ml Bag) Confirm Administered Dose 2,500 mcg IV .STK-MED ONE Stop: 12/03/22 20:47 Last Admin: 12/03/22 20:58 Dose: Not Given Documented By: VK Heparin Sodium (Porcine) (Heparin (Porcine) 1000 Unit/Ml 10 Ml (Dewatering Filtering Supervisor Use Only)) Confirm Administered Dose 20,000 units .ROUTE .STK-MED ONE Stop: 12/03/22 18:14 Last Admin: 12/03/22 20:10 Dose: Not Given Documented By: CF Heparin Sodium/Sodium Chloride (Heparin In Nss Infusion 1000 Unit/500 Ml (2 U/Ml) Bag) Confirm Administered Dose 3,000 units IV .STK-MED ONE Stop: 12/03/22 18:14 Last Admin: 12/03/22 20:10 Dose: Not Given Documented By: CF Piperacillin Sod/Tazobactam Sod (Zosyn) 4.5 gm in 100 mls @ 200 mls/hr IV NOW ONE Stop: 12/03/22 18:23 Last Infusion: 12/03/22 20:06 Dose: 0 mls/hr Documented By: Admin: 12/03/22 19:36 Dose: 200 mls/hr Documented By: JE Sodium Chloride (Nss) 1,000 mls @ 999 mls/hr IV .Q1H1M ONE Stop: 12/03/22 19:01 Last Infusion: 12/03/22 20:00 Dose: 0 mls/hr Documented By: Admin: 12/03/22 18:08 Dose: 999 mls/hr Documented By: CHIRAG Parenteral Electrolytes (Plasma-Lyte A Ph 7.4) 1,000 mls @ 999 mls/hr IV .Q1H1M ONE Stop: 12/03/22 21:05 Last Admin: 12/03/22 20:30 Dose: 999 mls/hr Documented By: JORDAN Ioversol (Optiray 320 500ml) 112 ml IV ONCE ONE Stop: 12/03/22 18:53 Last Admin: 12/03/22 18:53 Dose: 112 ml Documented By: YAMILE Midazolam HCl (Midazolam Hcl 1 Mg/Ml 2ml Vial) Confirm Administered Dose 2 mg .ROUTE .STK-MED ONE Stop: 12/03/22 18:14 Last Admin: 12/03/22 20:10 Dose: Not Given Documented By: CF Miscellaneous (Rapid Sequence Induction Bag) Confirm Administered Dose 1 each N/A .STK-MED ONE Stop: 12/03/22 17:35 Last Admin: 12/03/22 20:09 Dose: Not Given Documented By: CF Nicardipine HCl (Nicardipine Hcl Inj 2.5 Mg/Ml 10 Ml Amp) Confirm Administered Dose 25 mg .ROUTE .STK-MED ONE Stop: 12/03/22 18:14 Last Admin: 12/03/22 20:10 Dose: Not Given Documented By: CF Nitroglycerin/Dextrose (Nitroglycerin/D5w 100mcg/Ml 20ml Syr) Confirm Administered Dose 2,000 mcg .ROUTE .STK-MED ONE Stop: 12/03/22 18:28 Last Admin: 12/03/22 20:11 Dose: Not Given Documented By: CF Norepinephrine Bitartrate (Norepinephrine/D5w 4 Mg/250 Ml) Confirm Administered Dose 4 mg IV .STK-MED ONE Stop: 12/03/22 17:52 Last Admin: 12/03/22 18:09 Dose: Not Given Documented By: CHIRAG Imaging Data Attestation: I personally reviewed and interpreted this imaging study as follows: My Impression: 1 view chest x-ray was obtained in the emergency department. My interpretation is hyperinflation with multiple infiltrates, endotracheal tube was appropriate, final report below. CT angiography of the chest was obtained in the emergency department. My interpretation is no free air or definite filtrate, final report below. Radiologist's Impression: Chest X-Ray 12/03/22 17:20 XR chest 1V portable CLINICAL HISTORY: Sepsis TECHNIQUE: Single frontal radiograph of the chest was obtained. Comparison: Comparison is made to chest radiograph 11/09/2022 FINDINGS: Endotracheal tube terminates 3.3 cm from the steven. Median sternotomy wires are seen. The cardiomediastinal silhouette is normal. Bronchial wall thickening is seen. There are likely superimposed airspace opacities. No evidence of pleural effusion or pneumothorax. IMPRESSION: 1. Likely multifocal airspace opacities compatible with pneumonia. 2. Satisfactory appearance of endotracheal tube. ACT 112: Negative or not required by law. Electronically signed by: Cresencio Esposito M.D. 12/03/2022 6:18 PM Chest CTA 12/03/22 18:33 Exam(s): CTA CHEST IV Amt: 112ml EXAM: CT Angiography Chest With Intravenous Contrast CLINICAL HISTORY: Reason for exam: PE. TECHNIQUE: Axial computed tomographic angiography images of the chest with intravenous contrast. CTDI is 16.01 mGy and DLP is 584.88 mGy-cm. Automated exposure control was utilized for the study. A dose lowering technique was utilized adhering to the principles of ALARA. MIP reconstructed images were created and reviewed. COMPARISON: September 06, 2022 FINDINGS: Pulmonary arteries: The pulmonary arterial tree is well opacified with contrast. No pulmonary emboli are identified. Aorta: The thoracic aorta is mildly calcified but nondilated. There is no aneurysm or dissection. Lungs: There is extensive bronchial wall thickening throughout the lungs consistent with bronchitis, similar to previous. There is diffuse tree-in-bud appearance throughout both lungs consistent with distal bronchial plugging. There are small areas of atelectasis in the right middle lobe and both costophrenic angles. No pneumothorax or pleural effusion is seen. No mass. Pleural space: See above. Heart: See below. Bones/joints: Mild degenerative changes throughout the spine. No acute fracture or bone lesion is seen. Previous sternotomy and aortic valvuloplasty per the heart is not enlarged. Mild coronary calcification is present. No dislocation. Soft tissues: Unremarkable. Lymph nodes: Unremarkable. No enlarged lymph nodes. Tubes, lines and devices: Endotracheal tube tip is at the level of the steven. Standard position would be pulled back 3-4 cm. There is a gastrostomy tube in the stomach. IMPRESSION: 1. Endotracheal tube tip is at the level of the steven. Standard position would be pulled back 3-4 cm. 2. There is extensive bronchial wall thickening throughout the lungs consistent with bronchitis, similar to previous. There is diffuse tree- in-bud appearance throughout both lungs consistent with distal bronchial plugging. There are small areas of atelectasis in the right middle lobe and both costophrenic angles. No pneumothorax or pleural effusion is seen. 3. The thoracic aorta is mildly calcified but nondilated. There is no aneurysm or dissection. 4. The pulmonary arterial tree is well opacified with contrast. No pulmonary emboli are identified. Electronically signed by: Gary Chacon MD 12/03/22 19:09 PM Discharge Plan Visit Data Chief Complaint: Respiratory Distress ED Provider: Vu Nelson Discharge Problem: Acute respiratory distress, Acute respiratory failure with hypoxia and hypercapnia, Acute exacerbation of chronic obstructive pulmonary disease, Acute respiratory acidosis, Abnormal EKG, Cardiac arrest Patient Disposition: Admitted As Inpatient Discharge Instructions Interventions: ED Discharge Assessment Last Done: 12/03/22 20:37
[2022-12-03 18:49] LABS: iSTAT Arterial Blood Gas HCO3 31 meg/L (19-24); iSTAT Arterial Blood Gas pCO2 104 mmHg (35-46); iSTAT Arterial Blood Gas pH 7.08 (7.35-7.45); iSTAT Arterial Blood Gas pO2 57 mmHg (80-95); iSTAT Carbon Dioxide 34 mmol/L (24-31); iSTAT Hematocrit 34 % (42-52); iSTAT Hemoglobin 11.6 g/dl (14.0-18.0); iSTAT Potassium 3.4 mmol/L (3.3-5.0); iSTAT Sodium 145 mmol/L (135-144)
[2022-12-03] MEDS ORDERED: OPTIRAY 320 500ml IV ONE (18:52)
--- NOTE | 2022-12-03 19:10 | CT Scan Report ---
Exam(s): CTA CHEST IV Amt: 112ml EXAM: CT Angiography Chest With Intravenous Contrast CLINICAL HISTORY: Reason for exam: PE. TECHNIQUE: Axial computed tomographic angiography images of the chest with intravenous contrast. CTDI is 16.01 mGy and DLP is 584.88 mGy-cm. Automated exposure control was utilized for the study. A dose lowering technique was utilized adhering to the principles of ALARA. MIP reconstructed images were created and reviewed. COMPARISON: September 06, 2022 FINDINGS: Pulmonary arteries: The pulmonary arterial tree is well opacified with contrast. No pulmonary emboli are identified. Aorta: The thoracic aorta is mildly calcified but nondilated. There is no aneurysm or dissection. Lungs: There is extensive bronchial wall thickening throughout the lungs consistent with bronchitis, similar to previous. There is diffuse tree-in-bud appearance throughout both lungs consistent with distal bronchial plugging. There are small areas of atelectasis in the right middle lobe and both costophrenic angles. No pneumothorax or pleural effusion is seen. No mass. Pleural space: See above. Heart: See below. Bones/joints: Mild degenerative changes throughout the spine. No acute fracture or bone lesion is seen. Previous sternotomy and aortic valvuloplasty per the heart is not enlarged. Mild coronary calcification is present. No dislocation. Soft tissues: Unremarkable. Lymph nodes: Unremarkable. No enlarged lymph nodes. Tubes, lines and devices: Endotracheal tube tip is at the level of the steven. Standard position would be pulled back 3-4 cm. There is a gastrostomy tube in the stomach. IMPRESSION: 1. Endotracheal tube tip is at the level of the steven. Standard position would be pulled back 3-4 cm. 2. There is extensive bronchial wall thickening throughout the lungs consistent with bronchitis, similar to previous. There is diffuse tree- in-bud appearance throughout both lungs consistent with distal bronchial plugging. There are small areas of atelectasis in the right middle lobe and both costophrenic angles. No pneumothorax or pleural effusion is seen. 3. The thoracic aorta is mildly calcified but nondilated. There is no aneurysm or dissection. 4. The pulmonary arterial tree is well opacified with contrast. No pulmonary emboli are identified. Electronically signed by: Gary Chacon MD 12/03/22 19:09 PM
[2022-12-03] MEDS ORDERED: dexAMETHasone**PF** 10 MG/ML VIAL IV ONE (19:24)
--- NOTE | 2022-12-03 19:33 | Cardiology Consultation ---
Date of Consultation December 03, 2022 Assessment & Plan (1) Respiratory failure: This appears to be a primarily respiratory issue. No chest pain reported prior to decompensation. EKG is not consistent with acute ST elevation ND, rather, it is more consistent with diffuse hypoxemia/ischemia in the setting of hypoxia/respiratory failure. Patient has a history of same with recurrent pneumonia, recurrent aspiration, and O2 dependent COPD. Agree that CT scan of the chest may be helpful in delineating additional etiologies. Treatment per critical care medicine. (2) Shock: Patient was profoundly hypotensive before being pulseless. This certainly would contribute to the EKG findings. However I think the etiology is not cardiogenic but rather septic. Alternatively, could be secondary to pulmonary embolism given his history. CT scan may be helpful. We should obtain an echocardiogram. Vasopressor support as needed. (3) History of coronary artery bypass graft: Patient had mild to moderate nonocclusive coronary disease and a single SVG bypass to the OM. This by itself even if it were occluded would not cause cardiogenic shock. From what I can gather his aortic valve replacement was functioning normally on last evaluation. The [facility] cardiology group should be consulted since they have records which are unavailable to us. At this point, I would reserve cardiac catheterization for clear ST elevation ND. (4) History of heart valve replacement: Seems that the bioprosthetic valve was functioning normally on prior evaluation. We will obtain an echocardiogram to determine if it continues to to function normally. If not this certainly could be the etiology of his current respiratory failure. The chest x-ray does not show evidence of significant pulmonary edema at this time. Again, [facility] cardiology will manage. Plan At this time patient does not meet criteria for acute ST elevation ND. We will not take the patient to the [facility] at this point. He has responded favorably to vasopressor support. He does not have evidence of significant ongoing ischemia. Should these conditions change and he develop ST elevations and he shows some evidence of neurologic recovery then a catheterization would be considered at that time. At this time his prognosis is poor given his multitude of significant comorbid diseases. History of Present Illness Reason for Consultation: Possible ST elevation ND History of Present Illness This is an unfortunate 77-year-old gentleman with complex past cardiac and noncardiac history. Presented with acute respiratory distress. Cardiac history includes aortic valve replacement with a bioprosthetic valve in 2017 performed at [facility]. Preop operatively he underwent coronary angiography revealing a single lesion of severe stenosis and additional lesions which were mild to moderate at most. He underwent single-vessel coronary artery bypass grafting at that time with an SVG to the obtuse marginal branch of the circumflex. He has been followed by the [facility] cardiology group at [facility]. 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 He was a longtime smoker and has O2 dependent COPD. It seems that he has suffered from recurrent pneumonia, recurrent aspiration, recurrent admissions for respiratory failure, recurrent dehydration. He is also had hyponatremia, chronic renal insufficiency stage III with acute exacerbations of renal failure, and a PEG tube. He is accompanied by his primary caregiver. He states that he noted the patient was gurgling and having difficulty breathing. He had him transported to the emergency department. On arrival here, he was in respiratory distress but was able to answer questions. Evidently his respiratory distress worsened and he was profoundly hypoxic. It sounds as if at one point he was DNR/DNI but on my arrival he was already intubated. Discussion between the emergency department physician and the caregiver was ongoing with regard to the patient's wishes. The caregiver thought that the patient may not want CPR but the caregiver decided to proceed with CPR. At that point the p atient had no pulse, no blood pressure was palpable and his heart rate was in the low 40s. CPR was initiated by the emergency medicine physician. The EKG obtained just prior to complete deterioration demonstrated diffuse ST depressions with ST elevations in aVR and V1 not meeting criteria for acute ST elevation ND. Patient responded to the CPR with elevation in blood pressure and return of a pulse after receiving vasopressor support. The repeat EKG demonstrated significantly improved but not completely resolved ST depressions and no diagnostic ST elevations. ABG was obtained, electrolytes, CBC, lactate, etc. were all returning or pending. Dr. Nelson felt the patient should undergo stat CT scan of the chest to exclude pulmonary embolism given his history. Central line was placed and critical care medicine was assisting in management. Patient was unresponsive. Allergies Allergy/AdvReac Type Severity Reaction Status Date / Time No Known Allergies Allergy Verified 10/18/22 18:52 Home Medications Medication Instructions Recorded Confirmed Type atorvastatin 40 mg tablet 40 mg feeding tube QPM 09/18/18 12/03/22 History nitroglycerin 0.4 mg sublingual 0.4 mg sublingual UD PRN Chest Pain 09/18/18 12/03/22 History tablet albuterol sulfate 90 mcg/actuation 2 inh inhalation Q6H PRN shortness 05/06/20 10/25/22 Rx aerosol inhaler (ProAir HFA) of breath or wheezing #8.5 grams nutritional supplements 0.08 1 ea feeding tube DIRECTED 02/19/21 10/26/22 History gram-2 kcal/mL liquid for tube feed (Nutren 2.0) ipratropium 0.5 mg-albuterol 3 mg 3 ml inhalation Q6H PRN Shortness 09/05/22 12/03/22 History (2.5 mg base)/3 mL nebulization Of Breath soln lorazepam 0.5 mg tablet 0.5 mg feeding tube HS PRN Anxiety 10/18/22 12/03/22 History midodrine 2.5 mg tablet 2.5 mg PO TID@0800,1200,1700 #90 11/05/22 12/03/22 Rx tabs Patient History Medical History Acute hypoxemic respiratory failure Acute on chronic diastolic heart failure Acute renal insufficiency JULES (acute kidney injury) CAD (coronary artery disease) Cardiac murmur CHILD FROM RHEUMATIC FEVER CHF (congestive heart failure) Chronic pulmonary aspiration CKD (chronic kidney disease) stage 3, GFR 30-59 ml/min Elevated lactic acid level Former tobacco use Hearing deficit BILAT History of ND (myocardial infarction) 2016/ [facility] History of nasopharyngeal cancer s/p radiation, chemo- NO PORT ANYMORE CLEARED NOV 2013 History of rheumatic fever Hyperlipidemia Hypertension Left bundle branch block (LBBB) Palate abnormality prosthetic palate Pneumonia Radiation adverse effect Severe sepsis Shock Surgical History History of cardiac cath 2017 - ND --> CABG - [facility]- follows w/ Dr. Milton- [facility]/ NO STENTS History of cataract surgery History of colonoscopy with polypectomy 09/25/2018. Propofol given, no issues. History of coronary artery bypass graft One vessel - 2016 - [facility] History of heart valve replacement Bioprosthetic aortic valve - [place] 2017 History of shoulder surgery RIGHT History of tonsillectomy History of tooth extraction History of vascular access device NO LONGER HAS PORT Hx of aortic valve replacement Status post insertion of percutaneous endoscopic gastrostomy (PEG) tube PLACED DUE TO PALATE SURGERY- THEN REMOVED 2014 Family History Father Cancer Liver Cancer Social History Smoking Status: Unknown if ever smoked Tobacco Type: Cigarettes Second Hand Exposure: No; Do You Dip or Chew Tobacco: No; Hx Alcohol Use: No Hx Substance Use: No Preferred Language: Sammarinese Communication Ability: Effective Communication Ability Comment: Has tablet [employer] Required: Yes Beliefs That Will Affect Care: None marital status: / Current Living Situation: Family Current Living Situation Comment: Patient lives at home with sonAnthony. How many Children do You have: 1 Feels Safe at Home: Yes Assistive Devices: Cane and Other Review of Systems Review of Systems: As per HPI Physical Exam Physical Exam: Limited secondary to CODE BLUE Constitutional: Cachectic chronically ill-appearing elderly male Respiratory: Intubated and ventilated Cardiovascular: Tachycardic, systolic murmur. Poor perfusion. Initially without pulses, pulses later identified with epinephrine infusion and ultrasound evaluation. Neurologic: Unresponsive Results & Data Vital Signs (Past 12 Hours) Vital Signs Temp Pulse Resp BP Pulse Ox O2 Del Method FiO2 12/03/22 18:55 118 H 22 98 100 12/03/22 17:20 35.8 C L 12/03/22 17:20 40 H CPAP 12/03/22 18:24 126 H 22 98 12/03/22 18:24 113/63 12/03/22 18:22 130 H 22 97 12/03/22 18:22 138/64 12/03/22 18:21 147/72 H 12/03/22 18:21 132 H 22 96 12/03/22 18:20 135 H 23 97 12/03/22 18:20 163/75 H 12/03/22 18:18 137 H 18 96 12/03/22 18:18 168/70 H 12/03/22 18:10 75 12/03/22 18:10 56/35 L 12/03/22 18:00 69 18 12/03/22 17:51 103 H 17 12/03/22 17:50 123 H 15 12/03/22 17:48 140 H 22 12/03/22 17:48 47/29 L 12/03/22 17:40 139 H 25 H 12/03/22 17:32 80/61 L 12/03/22 17:32 139 H 17 12/03/22 17:30 140 H 20 12/03/22 17:29 140 H 22 12/03/22 18:09 44 L 12/03/22 17:56 70 12/03/22 17:28 140 H PG Care Time/CCT Total # of Minutes Spent Total Time Spent with Patient: Total time spent is greater than 50% in coordination of care (as documented) at patient's floor/unit and/or counseling patient: Coding Level of Care Code 95283 ER DEPT VISIT HIGH LVL 5 Diagnoses Respiratory failure J96.21 Chronicity: acute on chronic Respiratory failure complication: hypoxia Shock R57.9 History of coronary artery bypass graft Z95.1 History of heart valve replacement Z95.2 (1) Respiratory failure Chronicity: acute on chronic Respiratory failure complication: hypoxia Qualified Code(s): J96.21 - Acute and chronic respiratory failure with hypoxia
[2022-12-03 20:00] LABS: iSTAT Arterial Blood Gas HCO3 31 meg/L (19-24); iSTAT Arterial Blood Gas pCO2 76 mmHg (35-46); iSTAT Arterial Blood Gas pH 7.22 (7.35-7.45); iSTAT Arterial Blood Gas pO2 69 mmHg (80-95); iSTAT Carbon Dioxide 34 mmol/L (24-31); iSTAT Hematocrit 34 % (42-52); iSTAT Hemoglobin 11.6 g/dl (14.0-18.0); iSTAT Potassium 3.2 mmol/L (3.3-5.0); iSTAT Sodium 147 mmol/L (135-144)
[2022-12-03] MEDS ORDERED: PLASMA-LYTE A 1,000 ML IV ONE (20:05)
[2022-12-03] MEDS ORDERED: fentaNYL citrate PF 100 MCG/2 ML VIAL IV PRN (20:06)
[2022-12-03] MEDS ORDERED: Patient's HEIGHT &/or WEIGHT Needed SCH (20:15)
--- NOTE | 2022-12-03 20:21 | Critical Care Consultation ---
Date of Consultation December 03, 2022 Assessment & Plan (1) Acute on chronic respiratory failure with hypoxia and hypercapnia: (2) Cardiac arrest: (3) Acute exacerbation of chronic obstructive pulmonary disease: (4) Septic shock: (5) Recurrent aspiration pneumonia: (6) CAD (coronary artery disease): Plan ICU CONSULT NOTE FORMAT: Reason Critically Ill: 77 YOM admitted to [facility] for progressive hypercarbic/hypoxic respiratory resulting in short course of cardiac arrest which appears to have been PEA and intubation with mechanical ventilatio. Currently in shock likely septic from aspiration pneumonia requiring high dose vasopressors to maintain MAP Neuro - S/p Cardiac Arrest, Sedation for Mechanical Ventilation CAM ICU: [facility] - Patient post cardiac arrest which required CPR and vasopressors, NAHCO3 and CA CL with return of ROSC - Maintain Normothermia 36-38 degrees C - Follow neurological exams with sedation vacations - Current sedation with Fentanyl for SPENCER - 1 or -2 if vent synchrony needed - Consider Propofol if needed - Maintain Euglycemia, Euoxia, get PH to normal by correcting hypercarbia and lactic acidosis - Too early at this time for full neurological prognostication- has cough, pupils sluggish, withdraws all 4 extremities, overbreathing ventilator Cardiac - Shock, s/p cardiac arrest, hx of CABG with AVR, - Shock at this time most consistent with septic secondary to acute on chronic aspiration pneumonia - Received 1.5 L of crystalloid- continue fluid resuscitation to maintain UO if needed continue with plasmalyte at 110ml per hour - Vasopressors to maintain MAPS>65 - currently on Levophed and Vasopressin- Continue home Midodrine as patient normally with low BPs - Presented for CODE BLUE- patient was had just returned to ROSC following intubation and had short course of CPR and vasopressor imitation - Follow ECGs initial HsCTNI negative and evaluated in EMD by interventional cardiology - Will repeat ECHO in AM las ECHO in 10/30 was with normal EF and no abnormalities noted with aortic valve Respiratory - Acute on Chronic hypercarbic/hypoxic respiratory failure requiring mechanical ventilation, acute on chronic aspiration pneumonia, COPD exacerbation secondary to aspiration - Correct hypercarbia- currently with Delta of 30 on EtCO2 and ABG- CTA of chest negative for PE - Culture data reviewed - resend sputum culture- Meropenem sensitive in past with pseudomonas- continue with meropenem, MRSA swab pending - likely related to bilateral pneumonia and chronic COPD/bronchitis- ECHO in am with bubble study as well - ARSnet ventilatory strategy PIPs currently 30- follow with decompression of abdomen and sedation - Received 10mg Decadron in EMD-- convert to either hydrocortisone or solumederol in morning for sepsis as well as COPD exacerbation - Continue with JANELLE prn, Add ICS and LABA nebulizers BID - CXR reviewed with adequate ETT placement following withdraw of ETT GI - Chronic aspiration secondary to oral intake with hx of laryngeal cancer, PEG tube - Continue with OGT decompression - hold tube feeds at this time with high vasopressor requirements RENAL/LYTES - Respiratory acidosis, lactic acidosis, JULES II - as above for acidosis- no further need for HCO3 administration at this time- HCO3 is chronically elevated - JULES secondary to septic shock- continue with vasopressor support and volume resuscitation as needed - Plasmalyte maintenance at 110ml/hour - Sanchez to gravity- continue while intubated and sedated for accurate [facility] - No acute needs - ICU hyperglycemic protocol - BG checks q6 hours HEME - Chronic anemia - receives transfusions at home stable ID - Septic shock likely from aspiration pneumonia - Previous cultures reviewed with Citrobacter freundii and pseudomonas- both sensitive to meropenem - MRSA pending - Continue with stress dose steroids- covered for 24 hours following 10mg D ecadron administration - PCT 0.51 - Await culture data - Received 2.5 L crystalloid- continue with vasopressors, adjust antibiotics as warranted LINES/IV ACCESS - CVL, Arterial line, ETT, OGT, Sanchez Catheter Continue use of these lines - CVL placed sterile in EMD- consider IJ placement pending clinical course DVT PROPHYLAXIS - SCDS, Heparin 5000 units subq BID CODE STATUS: FULL- Son is unsure of his father's wishes as he reports they have not really discussed- feels as of now he would want a chance and to follow his clinical course and if not responding favorable would likely transition to a more palliative approach. Follow up discussion in morning DISPO: ICU while on vasopressor agents and requiring mechanical ventilation support I have personally spent 60 minutes of critical care time in the direct management of this patient. This is a life/limb threatening event. This includes time spent evaluating patient, direct bedside care, chart review, placing orders, interpretation of diagnostic studies, discussion with consultants, patient, and family members, as well as other required patient management activities. This time is exclusive of all separately billable procedures, and teaching time and separate from and in addition to any other critical care service time. Thank you for allowing us to participate in the care of this patient. Please refer to my attending physician's documentation for any further recommendations. Supervising Physician Co-Signing Physician Notes Patient seen and examined. EMR reviewed. Discussed with critical care EMANUEL and imaging was independently reviewed. Agree with assessment plan as noted. Please refer to my progress note from 12/04/2022 for full details. History of Present Illness Reason for Consultation: Cardiac Arrest requiring intubation and mechanical ventilation Requesting Physician: Wing Nelson Attending Physician: Knigsley Holly MD History of Present Illness 77 YOM with medical history of: Nasopharyngeal cancer- chemo/radiation hx, Chronic aspiration, aspiration pneumonia, CABG, HfpEF, chronic home O2 use, Bioprosthetic AV, COPD, PEG tube placement secondary to chronic aspiration, HTN, HLD, chronic iron deficiency anemia- he gets transfusions at home, john opharyngeal bleed, Fall on 11/12/22 requiring laceration repair to brow. Patient was brought to EMD today via EMS secondary to hypoxia and subsequently underwent cardiac resuscitation with ROSC, however patient was intubated on arrival and was noted to he in hypercarbic respiratory failure with Co2 at 103 and severely acidotic to to 7.1. In the EMD he was initially heart alerted on the way in and was evaluated by interventional cardiology. Not found to have any STEMI and not considered candidate for invasive evaluation. He subsequently had central line placed to right femoral with rapid escalation of vasopressors. He received amp HCO3 and CACL via central access. He underwent CTA of the chest that was negative for pulmonary embolism. Patient will be admitted to ICU continue with resuscitation efforts, maintain normothermia, and continue with vasopressor support. Patient was accompanied by his son, who at this time thinks Shar would want continued full support. He endorses that he has been living with him at home and doing well and participating in rehab. He reports that his vital signs have been good at home with the midodrine support and his oxygen levels up until this evening have been 100% on 2LNC at home. He reports that his dad was in the recliner this evening doing his feedings and he went outside to do some yardwork, upon coming in his dad was coughing and had "gurgling" lung sounds and coughing up thick creamy white secretions. He thinks he may have drank some of his tube feeds as this is normal practice for him to assist with bringing up secretions. He did have routine lab work performed to include blood cultures and lactate level and PCT. He was noted with leukopenia at 22 with NLR of 4:1 , acidosis with PH of 7.19 on arrival and with lactate level of 4.0. Currently has received 2Liters crystalloid and is currently volume responsive and making adequate urine. CODE: FULL Allergies Allergy/AdvReac Type Severity Reaction Status Date / Time No Known Allergies Allergy Verified 10/18/22 18:52 Home Medications Medication Instructions Recorded Confirmed Type atorvastatin 40 mg tablet 40 mg feeding tube QPM 09/18/18 12/03/22 History nitroglycerin 0.4 mg sublingual 0.4 mg sublingual UD PRN Chest Pain 09/18/18 12/03/22 History tablet albuterol sulfate 90 mcg/actuation 2 inh inhalation Q6H PRN shortness 05/06/20 10/25/22 Rx aerosol inhaler (ProAir HFA) of breath or wheezing #8.5 grams nutritional supplements 0.08 1 ea feeding tube DIRECTED 02/19/21 10/26/22 History gram-2 kcal/mL liquid for tube feed (Nutren 2.0) ipratropium 0.5 mg-albuterol 3 mg 3 ml inhalation Q6H PRN Shortness 09/05/22 12/03/22 History (2.5 mg base)/3 mL nebulization Of Breath soln lorazepam 0.5 mg tablet 0.5 mg feeding tube HS PRN Anxiety 10/18/22 12/03/22 History midodrine 2.5 mg tablet 2.5 mg PO TID@0800,1200,1700 #90 11/05/22 12/03/22 Rx tabs Patient History Medical History Acute hypoxemic respiratory failure Acute on chronic diastolic heart failure Acute renal insufficiency JULES (acute kidney injury) CAD (coronary artery disease) Cardiac murmur CHILD FROM RHEUMATIC FEVER CHF (congestive heart failure) Chronic pulmonary aspiration CKD (chronic kidney disease) stage 3, GFR 30-59 ml/min Elevated lactic acid level Former tobacco use Hearing deficit BILAT History of [place] (myocardial infarction) [facility] [place]/ [facility] History of nasopharyngeal cancer s/p radiation, chemo- NO PORT ANYMORE CLEARED NOV 2013 History of rheumatic fever Hyperlipidemia Hypertension Left bundle branch block (LBBB) Palate abnormality prosthetic palate Pneumonia Radiation adverse effect Severe sepsis Shock Surgical History History of cardiac cath 2017 - [place] --> CABG - [facility]- follows w/ Dr. Milton- [facility]/ NO STENTS History of cataract surgery History of colonoscopy with polypectomy 09/25/2018. Propofol given, no issues. [facility] of heart valve replacement Bioprosthetic aortic valve - [place] 2016 History of shoulder surgery RIGHT History of tonsillectomy History of tooth extraction History of vascular access device NO LONGER HAS PORT Hx of aortic valve replacement Status post insertion of percutaneous endoscopic gastrostomy (PEG) tube PLACED DUE TO PALATE SURGERY- THEN REMOVED 2014 Family History Father Cancer Liver Cancer Social History Smoking Status: Never smoker Tobacco Type: Cigarettes Second Hand Exposure: No; Do You Dip or Chew Tobacco: No; Hx Alcohol Use: No Hx Substance Use: No Preferred Language: Setswana Communication Ability: Effective Communication Ability Comment: Has tablet [employer] Required: No Beliefs That Will Affect Care: None marital status: / Current Living Situation: Family Current Living Situation Comment: lives with son How many Children do You have: 1 Other Information That Helps Us Care for You: No Feels Safe at Home: Yes Assistive Devices: Cane, Glasses, Hearing Aid - Bilateral and Oxygen - Continuous Review of Systems Review of Systems: REVIEW OF SYSTEMS: Unable to evaluate secondary to intubation and mechanical ventilation Physical Exam Physical Exam: PHYSICAL EXAM: General: intubated and sedated Head: Normocephalic, old scar noted on brow ENT: PERRLA, mucous membranes dry Neuro: Sedated, coughing against ventilator, withdraws to painful stimuli, Chest: equal rise and fall of the chest, no accessory muscle use, scattered rhonchi and wheezes bilaterally throughout Cardiac: Regular rate and rhythm, telemetry reviewed- sinus tachycardia, skin warm dry, cap refill <3 seconds, peripheral pulses +2 no JVD, no peripheral edema, s1s2 GI: NABS x 4 quadrants, softly distended, PEG button in place : Sanchez to gravity draining dilute yellow urine Extremities: Normal inspection, no peripheral edema, multiple bruises as well as cyanosis of fingertips Skin: no rash or erythema Results & Data Results & Data Vital Signs (Past 12 Hours) Vital Signs Temp Pulse Resp BP Pulse Ox O2 Del Method O2 Flow Rate 12/03/22 19:48 116 H 26 H 82/56 L 95 12/03/22 19:44 116 H 26 H 90/51 L 93 12/03/22 19:40 114 H 22 98/56 L 93 12/03/22 19:38 115 H 22 96/77 L 93 12/03/22 19:36 117 H 23 88/69 L 93 12/03/22 19:34 117 H 23 96/54 L 92 12/03/22 19:32 117 H 23 91/64 L 92 12/03/22 19:29 117 H 22 88/59 L 93 12/03/22 19:26 117 H 22 89/61 L 93 12/03/22 19:25 117 H 22 91/62 L 93 12/03/22 19:22 82/55 L 12/03/22 19:22 117 H 22 93 12/03/22 19:20 116 H 22 92 12/03/22 19:20 93/65 L 12/03/22 19:18 116 H 22 91 12/03/22 19:18 84/56 L 12/03/22 19:16 87/62 L 12/03/22 19:16 116 H 22 95 12/03/22 19:14 87/62 L 12/03/22 19:14 116 H 22 93 12/03/22 19:12 93/59 L 12/03/22 19:12 116 H 22 95 12/03/22 19:10 115 H 22 95 12/03/22 19:10 91/60 L 12/03/22 19:08 87/65 L 12/03/22 19:08 115 H 22 92 12/03/22 19:06 92/52 L 12/03/22 19:06 114 H 22 94 12/03/22 19:04 97/60 L 12/03/22 19:04 114 H 22 95 12/03/22 19:02 95/62 L 12/03/22 19:02 114 H 22 96 12/03/22 19:00 114 H 22 97 12/03/22 19:00 108/63 12/03/22 18:59 103/63 12/03/22 18:59 115 H 23 12/03/22 18:58 115 H 17 98 12/03/22 18:38 121/58 L 12/03/22 18:38 116 H 22 99 12/03/22 18:36 112 H 22 99 12/03/22 18:36 84/50 L 12/03/22 18:34 84/47 L 12/03/22 18:34 113 H 23 99 12/03/22 18:32 92/52 L 12/03/22 18:32 114 H 22 99 12/03/22 18:30 115 H 22 99 12/03/22 18:30 94/59 L 12/03/22 18:28 118 H 22 99 12/03/22 18:28 93/53 L 12/03/22 18:27 119 H 22 99 12/03/22 18:27 91/54 L 12/03/22 18:26 85/55 L 12/03/22 18:26 121 H 22 100 12/03/22 18:17 138 H 12/03/22 18:55 118 H 22 98 12/03/22 19:26 Mechanical Vent 93 12/03/22 19:26 93 Mechanical Vent 12/03/22 17:20 35.8 C L 12/03/22 17:20 40 H CPAP 12/03/22 18:24 126 H 22 98 12/03/22 18:24 113/63 12/03/22 18:22 130 H 22 97 12/03/22 18:22 138/64 12/03/22 18:21 147/72 H 12/03/22 18:21 132 H 22 96 12/03/22 18:20 135 H 23 97 12/03/22 18:20 163/75 H 12/03/22 18:18 137 H 18 96 12/03/22 18:18 168/70 H 12/03/22 18:10 75 12/03/22 18:10 56/35 L 12/03/22 18:00 69 18 12/03/22 17:51 103 H 17 12/03/22 17:50 123 H 15 12/03/22 17:48 140 H 22 12/03/22 17:48 47/29 L 12/03/22 17:40 139 H 25 H 12/03/22 17:32 80/61 L 12/03/22 17:32 139 H 17 12/03/22 17:30 140 H 20 12/03/22 17:29 140 H 22 12/03/22 18:09 44 L 12/03/22 17:56 70 12/03/22 17:28 140 H FiO2 12/03/22 19:48 12/03/22 19:44 12/03/22 19:40 12/03/22 19:38 12/03/22 19:36 12/03/22 19:34 12/03/22 19:32 12/03/22 19:29 12/03/22 19:26 12/03/22 19:25 12/03/22 19:22 12/03/22 19:22 12/03/22 19:20 12/03/22 19:20 12/03/22 19:18 12/03/22 19:18 12/03/22 19:16 12/03/22 19:16 12/03/22 19:14 12/03/22 19:14 12/03/22 19:12 12/03/22 19:12 12/03/22 19:10 12/03/22 19:10 12/03/22 19:08 12/03/22 19:08 12/03/22 19:06 12/03/22 19:06 12/03/22 19:04 12/03/22 19:04 12/03/22 19:02 12/03/22 19:02 12/03/22 19:00 12/03/22 19:00 12/03/22 18:59 12/03/22 18:59 12/03/22 18:58 12/03/22 18:38 12/03/22 18:38 12/03/22 18:36 12/03/22 18:36 12/03/22 18:34 12/03/22 18:34 12/03/22 18:32 12/03/22 18:32 12/03/22 18:30 12/03/22 18:30 12/03/22 18:28 12/03/22 18:28 12/03/22 18:27 12/03/22 18:27 12/03/22 18:26 12/03/22 18:26 12/03/22 18:17 12/03/22 18:55 100 12/03/22 19:26 12/03/22 19:26 12/03/22 17:20 12/03/22 17:20 12/03/22 18:24 12/03/22 18:24 12/03/22 18:22 12/03/22 18:22 12/03/22 18:21 12/03/22 18:21 12/03/22 18:20 12/03/22 18:20 12/03/22 18:18 12/03/22 18:18 12/03/22 18:10 12/03/22 18:10 12/03/22 18:00 12/03/22 17:51 12/03/22 17:50 12/03/22 17:48 12/03/22 17:48 12/03/22 17:40 12/03/22 17:32 12/03/22 17:32 12/03/22 17:30 12/03/22 17:29 12/03/22 18:09 12/03/22 17:56 12/03/22 17:28 Laboratory Results Abnormal lab results 12/03/22 12/03/22 12/03/22 Range/Units 17:40 17:40 17:40 WBC 22.29 H (4.8-10.8) K/ul RBC 4.65 L (4.70-6.10) M/uL POC Hgb (14.0-18.0) g/dl POC Hct (42-52) % MCV 100.9 H (80.0-100.0) fL MCHC 31.3 L (32.0-36.0) g/dL RDW Std Deviation 57.4 H (36.4-46.3) fL RDW Coeff of Navid 15.5 H (11.5-14.5) % Neut # (Auto) 17.53 H (1.40-6.50) K/uL Lymph # (Auto) 3.50 H (1.20-3.40) K/uL [place] # (Auto) 0.87 H (0.11-0.59) K/uL POC pH (7.35-7.45) POC pCO2 (35-46) mmHg POC pO2 (80-95) mmHg POC HCO3 (19-24) seda/L POC Base Excess (-9-1.8) seda/L POC ABG O2 Sat (90-95) % VBG pH (7.36-7.41) VBG pCO2 (38-50) mmHg POC Sodium (135-144) mmol/L POC Potassium (3.3-5.0) mmol/L Carbon Dioxide 36 H (21-32) mmol/L POC Total CO2 (24-31) mmol/L POC Anion Gap (16-25) mmol/L POC BUN (7-18) mg/dl BUN 51 H (6-23) mg/dl BUN/Creatinine Ratio 51.5 H (10-20) POC Glucose (70-99) mg/dl Lactate 4.0 H* (0.4-2.0) mmol/L Magnesium 2.6 H (1.7-2.4) mg/dl AST 75 H (13-39) U/L Alkaline Phosphatase 170 H (34-104) U/L Total Protein 8.7 H (6.0-8.3) gm/dl Procalcitonin (0-0.5) ng/ml Urine Protein (Negative) U Epithel Cells (Auto) (0-5) /lpf 12/03/22 12/03/22 12/03/22 Range/Units 17:40 17:40 17:49 WBC (4.8-10.8) K/ul RBC (4.70-6.10) M/uL POC Hgb (14.0-18.0) g/dl POC Hct (42-52) % MCV (80.0-100.0) fL MCHC (32.0-36.0) g/dL RDW Std Deviation (36.4-46.3) fL RDW Coeff of Navid (11.5-14.5) % Neut # (Auto) (1.40-6.50) K/uL Lymph # (Auto) (1.20-3.40) K/uL [place] # (Auto) (0.11-0.59) K/uL POC pH (7.35-7.45) POC pCO2 (35-46) mmHg POC pO2 (80-95) mmHg POC HCO3 (19-24) seda/L POC Base Excess (-9-1.8) seda/L POC ABG O2 Sat (90-95) % VBG pH 7.20 L (7.36-7.41) VBG pCO2 99 H (38-50) mmHg POC Sodium 146 H (135-144) mmol/L POC Potassium (3.3-5.0) mmol/L Carbon Dioxide (21-32) mmol/L POC Total CO2 39 H (24-31) mmol/L POC Anion Gap 12.0 L (16-25) mmol/L POC BUN 58 H (7-18) mg/dl BUN (6-23) mg/dl BUN/Creatinine Ratio (10-20) POC Glucose (70-99) mg/dl Lactate (0.4-2.0) mmol/L Magnesium (1.7-2.4) mg/dl AST (13-39) U/L Alkaline Phosphatase (34-104) U/L Total Protein (6.0-8.3) gm/dl Procalcitonin 0.51 H (0-0.5) ng/ml Urine Protein (Negative) U Epithel Cells (Auto) (0-5) /lpf 12/03/22 12/03/22 12/03/22 Range/Units 18:34 19:38 19:55 WBC (4.8-10.8) K/ul RBC (4.70-6.10) M/uL POC Hgb 11.6 L 11.6 L (14.0-18.0) g/dl POC Hct 34 L 34 L (42-52) % MCV (80.0-100.0) fL MCHC (32.0-36.0) g/dL RDW Std Deviation (36.4-46.3) fL RDW Coeff of Navid (11.5-14.5) % Neut # (Auto) (1.40-6.50) K/uL Lymph # (Auto) (1.20-3.40) K/uL [place] # (Auto) (0.11-0.59) K/uL POC pH 7.08 L* 7.22 L (7.35-7.45) POC pCO2 104 H 76 H (35-46) mmHg POC pO2 57 L 69 L (80-95) mmHg POC HCO3 31 H 31 H (19-24) seda/L POC Base Excess 4.0 H (-9-1.8) seda/L POC ABG O2 Sat 74.0 L 89.0 L (90-95) % VBG pH (7.36-7.41) VBG pCO2 (38-50) mmHg POC Sodium 145 H 147 H (135-144) mmol/L POC Potassium 3.2 L (3.3-5.0) mmol/L Carbon Dioxide (21-32) mmol/L POC Total CO2 34 H 34 H (24-31) mmol/L POC Anion Gap (16-25) mmol/L POC BUN (7-18) mg/dl BUN (6-23) mg/dl BUN/Creatinine Ratio (10-20) POC Glucose (70-99) mg/dl Lactate (0.4-2.0) mmol/L Magnesium (1.7-2.4) mg/dl AST (13-39) U/L Alkaline Phosphatase (34-104) U/L Total Protein (6.0-8.3) gm/dl Procalcitonin (0-0.5) ng/ml Urine Protein Trace H (Negative) U Epithel Cells (Auto) 20-30 H (0-5) /lpf 12/03/22 12/03/22 Range/Units 20:43 20:48 WBC (4.8-10.8) K/ul RBC (4.70-6.10) M/uL POC Hgb (14.0-18.0) g/dl POC Hct (42-52) % MCV (80.0-100.0) fL MCHC (32.0-36.0) g/dL RDW Std Deviation (36.4-46.3) fL RDW Coeff of Navid (11.5-14.5) % Neut # (Auto) (1.40-6.50) K/uL Lymph # (Auto) (1.20-3.40) K/uL [place] # (Auto) (0.11-0.59) K/uL POC pH (7.35-7.45) POC pCO2 (35-46) mmHg POC pO2 (80-95) mmHg POC HCO3 (19-24) seda/L POC Base Excess (-9-1.8) seda/L POC ABG O2 Sat (90-95) % VBG pH (7.36-7.41) VBG pCO2 (38-50) mmHg POC Sodium (135-144) mmol/L POC Potassium (3.3-5.0) mmol/L Carbon Dioxide (21-32) mmol/L POC Total CO2 (24-31) mmol/L POC Anion Gap (16-25) mmol/L POC BUN (7-18) mg/dl BUN (6-23) mg/dl BUN/Creatinine Ratio (10-20) POC Glucose 129 H (70-99) mg/dl Lactate 5.8 H* (0.4-2.0) mmol/L Magnesium (1.7-2.4) mg/dl AST (13-39) U/L Alkaline Phosphatase (34-104) U/L Total Protein (6.0-8.3) gm/dl Procalcitonin (0-0.5) ng/ml Urine Protein (Negative) U Epithel Cells (Auto) (0-5) /lpf Diagnostic Findings Chest X-Ray 12/03/22 17:20 XR chest 1V portable CLINICAL HISTORY: Sepsis TECHNIQUE: Single frontal radiograph of the chest was obtained. Comparison: Comparison is made to chest radiograph 11/09/2022 FINDINGS: Endotracheal tube terminates 3.3 cm from the steven. Median sternotomy wires are seen. The cardiomediastinal silhouette is normal. Bronchial wall thickening is seen. There are likely superimposed airspace opacities. No evidence of pleural effusion or pneumothorax. IMPRESSION: 1. Likely multifocal airspace opacities compatible with pneumonia. 2. Satisfactory appearance of endotracheal tube. ACT 112: Negative or not required by law. Electronically signed by: Cresencio Esposito M.D. 12/03/2022 6:18 PM Chest CTA 12/03/22 18:33 Exam(s): CTA CHEST IV Amt: 112ml EXAM: CT Angiography Chest With Intravenous Contrast CLINICAL HISTORY: Reason for exam: PE. TECHNIQUE: Axial computed tomographic angiography images of the chest with intravenous contrast. CTDI is 16.01 mGy and DLP is 584.88 mGy-cm. Automated exposure control was utilized for the study. A dose lowering technique was utilized adhering to the principles of ALARA. MIP reconstructed images were created and reviewed. COMPARISON: September 06, 2022 FINDINGS: Pulmonary arteries: The pulmonary arterial tree is well opacified with contrast. No pulmonary emboli are identified. Aorta: The thoracic aorta is mildly calcified but nondilated. There is no aneurysm or dissection. Lungs: There is extensive bronchial wall thickening throughout the lungs consistent with bronchitis, similar to previous. There is diffuse tree-in-bud appearance throughout both lungs consistent with distal bronchial plugging. There are small areas of atelectasis in the right middle lobe and both costophrenic angles. No pneumothorax or pleural effusion is seen. No mass. Pleural space: See above. Heart: See below. Bones/joints: Mild degenerative changes throughout the spine. No acute fracture or bone lesion is seen. Previous sternotomy and aortic valvuloplasty per the heart is not enlarged. Mild coronary calcification is present. No dislocation. Soft tissues: Unremarkable. Lymph nodes: Unremarkable. No enlarged lymph nodes. Tubes, lines and devices: Endotracheal tube tip is at the level of the steven. Standard position would be pulled back 3-4 cm. There is a gastrostomy tube in the stomach. IMPRESSION: 1. Endotracheal tube tip is at the level of the steven. Standard position would be pulled back 3-4 cm. 2. There is extensive bronchial wall thickening throughout the lungs consistent with bronchitis, similar to previous. There is diffuse tree- in-bud appearance throughout both lungs consistent with distal bronchial plugging. There are small areas of atelectasis in the right middle lobe and both costophrenic angles. No pneumothorax or pleural effusion is seen. 3. The thoracic aorta is mildly calcified but nondilated. There is no aneurysm or dissection. 4. The pulmonary arterial tree is well opacified with contrast. No pulmonary emboli are identified. Electronically signed by: Gary Chacon MD 12/03/22 19:09 PM Chest X-Ray 12/03/22 20:14 XR chest 1V portable HISTORY: 77 years-old Male OG tube placement acute respiratory failure COMPARISON: CTA chest of same day TECHNIQUE: AP view of the chest FINDINGS: Median sternotomy. Endotracheal tube overlies the midline, 3.4 cm superior to the steven. Distal tip of the enteric tube projects over the gastric cardia with side-port within the distal esophagus. Extensive reticular nodular opacities with bronchial wall thickening redemonstrated. No pneumothorax or pleural effusion. Bones appear grossly intact. Moderate gaseous distention of the stomach. IMPRESSION: 1. Endotracheal and enteric tube placement as above. 2. Extensive reticular nodular opacities redemonstrated compatible with a nonspecific infectious or inflammatory bronchiolitis/pneumonitis. ACT 112: Negative or not required by law. The above report was generated using voice recognition software. It may contain grammatical, syntax or spelling errors. Electronically signed by: Marcel Cloud M.D. 12/03/2022 9:11 PM Medications Administered Norepinephrine Bitartrate (Levophed/D5w) 4 mg in 250 mls @ 71.018 mls/hr IV .Q3H32M [facility]; Protocol Stop: 01/02/23 17:59 Last Titration: 12/03/22 22:00 Dose: 0.34 mcg/kg/min, 71 mls/hr Documented By: Titration: 12/03/22 21:55 Dose: 0.32 mcg/kg/min, 66.8 mls/hr Documented By: Titration: 12/03/22 21:30 Dose: 0.28 mcg/kg/min, 58.5 mls/hr Documented By: Titration: 12/03/22 21:24 Dose: 0.26 mcg/kg/min, 54.3 mls/hr Documented By: Titration: 12/03/22 21:14 Dose: 0.22 mcg/kg/min, 46 mls/hr Documented By: Titration: 12/03/22 21:09 Dose: 0.2 mcg/kg/min, 41.8 mls/hr Documented By: Titration: 12/03/22 20:45 Dose: 0.22 mcg/kg/min, 46 mls/hr Documented By: Titration: 12/03/22 20:30 Dose: 0.24 mcg/kg/min, 50.1 mls/hr Documented By: Admin: 12/03/22 20:11 Dose: 0.26 mcg/kg/min, 54.3 mls/hr Documented By: JE Co-signed By: SHAY Titration: 12/03/22 20:11 Dose: 0.15 mcg/kg/min, 31.3 mls/hr Documented By: JE Co-signed By: SHAY Titration: 12/03/22 18:36 Dose: 0.15 mcg/kg/min, 31.3 mls/hr Documented By: Titration: 12/03/22 18:28 Dose: 0.12 mcg/kg/min, 25.1 mls/hr Documented By: Titration: 12/03/22 18:10 Dose: 0.09 mcg/kg/min, 18.8 mls/hr Documented By: Titration: 12/03/22 18:05 Dose: 0.07 mcg/kg/min, 14.6 mls/hr Documented By: Admin: 12/03/22 17:55 Dose: 0.05 mcg/kg/min, 10.4 mls/hr Documented By: CHIRAG Co-signed By: ERNESTO Propofol (Diprivan) 1,000 mg in 100 mls @ 6.684 mls/hr IV .[id number] [facility]; Protocol Stop: 12/06/22 17:59 Last Admin: 12/03/22 20:09 Dose: Not Given Documented By: TITUS Meropenem 500 mg/ Syringe 10 mls @ 2 mls/min IV Q6H [facility]; Protocol Stop: 12/10/22 19:59 Last Admin: 12/03/22 21:06 Dose: 2 mls/min Documented By: JORDAN Fentanyl Citrate (Fentanyl Citrate) 2,500 mcg in 250 mls @ 2.5 mls/hr IV .Q96H [facility]; Protocol Stop: 12/17/22 20:55 Last Admin: 12/03/22 20:30 Dose: 25 mcg/hr, 2.5 mls/hr Documented By: JORDAN Co-signed By: DEMARIO Parenteral Electrolytes (Plasma-Lyte A Ph 7.4) 1,000 mls @ 110 mls/hr IV .Q9H6M [facility] Stop: 01/02/23 21:14 Last Admin: 12/03/22 21:25 Dose: 110 mls/hr Documented By: DEMARIO Vasopressin 20 units/ Sodium (Chloride) 101 mls @ 12.12 mls/hr IV .Q8H20M [facility] Stop: 01/02/23 21:59 Last Admin: 12/03/22 22:05 Dose: 0.04 unit/min, 12.1 mls/hr Documented By: DEMARIO Co-signed By: TITUS Miscellaneous (Icu Protocol For Hyperglycemia) 1 each N/A ACHS [facility] Stop: 12/05/22 20:59 Last Admin: 12/03/22 21:05 Dose: Not Given Documented By: CF Discontinued Medications Dexamethasone Sodium Phosphate (DexamethasonePf 10 Mg/Ml Vial) 10 mg IV NOW ONE Stop: 12/03/22 19:25 Last Admin: 12/03/22 21:01 Dose: Not Given Documented By: VK Fentanyl Citrate (Fentanyl Citrate Pf 100 Mcg/2 Ml Vial) Confirm Administered Dose 100 mcg .ROUTE .STK-MED ONE Stop: 12/03/22 18:14 Last Admin: 12/03/22 20:10 Dose: Not Given Documented By: CF Fentanyl Citrate (Fentanyl Citrate 2,500 Mcg/250 Ml Bag) Confirm Administered Dose 2,500 mcg IV .STK-MED ONE Stop: 12/03/22 20:47 Last Admin: 12/03/22 20:58 Dose: Not Given Documented By: JORDAN Heparin Sodium (Porcine) (Heparin (Porcine) 1000 Unit/Ml 10 Ml (Vehicle Dismantler Use Only)) Confirm Administered Dose 20,000 units .ROUTE .STK-MED ONE Stop: 12/03/22 18:14 Last Admin: 12/03/22 20:10 Dose: Not Given Documented By: TITUS Heparin Sodium/Sodium Chloride (Heparin In Nss Infusion 1000 Unit/500 Ml (2 U/Ml) Bag) Confirm Administered Dose 3,000 units IV .STK-MED ONE Stop: 12/03/22 18:14 Last Admin: 12/03/22 20:10 Dose: Not Given Documented By: TITUS Piperacillin Sod/Tazobactam Sod (Zosyn) 4.5 gm in 100 mls @ 200 mls/hr IV NOW ONE Stop: 12/03/22 18:23 Last Infusion: 12/03/22 20:06 Dose: 0 mls/hr Documented By: Admin: 12/03/22 19:36 Dose: 200 mls/hr Documented By: JE Sodium Chloride (Nss) 1,000 mls @ 999 mls/hr IV .Q1H1M ONE Stop: 12/03/22 19:01 Last Infusion: 12/03/22 20:00 Dose: 0 mls/hr Documented By: Admin: 12/03/22 18:08 Dose: 999 mls/hr Documented By: CHIRAG Parenteral Electrolytes (Plasma-Lyte A Ph 7.4) 1,000 mls @ 999 mls/hr IV .Q1H1M ONE Stop: 12/03/22 21:05 Last Admin: 12/03/22 20:30 Dose: 999 mls/hr Documented By: JORDAN Parenteral Electrolytes (Plasma-Lyte A Ph 7.4) 500 mls @ 999 mls/hr IV .Q31M ONE Stop: 12/03/22 21:47 Last Admin: 12/03/22 21:17 Dose: 999 mls/hr Documented By: DEMARIO Ioversol (Optiray 320 500ml) 112 ml IV ONCE ONE Stop: 12/03/22 18:53 Last Admin: 12/03/22 18:53 Dose: 112 ml Documented By: YAMILE Midazolam HCl (Midazolam Hcl 1 Mg/Ml 2ml Vial) Confirm Administered Dose 2 mg .ROUTE .STK-MED ONE Stop: 12/03/22 18:14 Last Admin: 12/03/22 20:10 Dose: Not Given Documented By: TITUS Miscellaneous (Rapid Sequence Induction Bag) Confirm Administered Dose 1 each N/A .STK-MED ONE Stop: 12/03/22 17:35 Last Admin: 12/03/22 20:09 Dose: Not Given Documented By: TITUS Miscellaneous (Patient's Height &/Or Weight Needed) 1 each N/A Q2H [facility] Stop: 01/02/23 20:14 Last Admin: 12/03/22 21:05 Dose: 1 each Documented By: TITUS Nicardipine HCl (Nicardipine Hcl Inj 2.5 Mg/Ml 10 Ml Amp) Confirm Administered Dose 25 mg .ROUTE .STK-MED ONE Stop: 12/03/22 18:14 Last Admin: 12/03/22 20:10 Dose: Not Given Documented By: TITUS Nitroglycerin/Dextrose (Nitroglycerin/D5w 100mcg/Ml 20ml Syr) Confirm Administered Dose 2,000 mcg .ROUTE .STK-MED ONE Stop: 12/03/22 18:28 Last Admin: 12/03/22 20:11 Dose: Not Given Documented By: TITUS Norepinephrine Bitartrate (Norepinephrine/D5w 4 Mg/250 Ml) Confirm Administered Dose 4 mg IV .STK-MED ONE Stop: 12/03/22 17:52 Last Admin: 12/03/22 18:09 Dose: Not Given Documented By: JPG ECG Additional Comments: Sinus tachycardia Nonspecific ST and T wave abnormality Abnormal ECG When compared with ECG of 09-NOV-2022 14:16, Vent. rate has increased BY 74 BPM Non- specific change in ST segment in Inferior leads ST now depressed in Lateral leads T wave inversion now evident in Inferior leads Nonspecific T wave abnormality now evident in Lateral leads Coding Level of Care Code 57200 CRITICAL CARE 1ST 30-74M Diagnoses Acute on chronic respiratory failure with hypoxia and hypercapnia J96.21; J96.22 Cardiac arrest I46.9 Acute exacerbation of chronic obstructive pulmonary disease J44.1 Septic shock A41.9; R65.21 Recurrent aspiration pneumonia J69.0 CAD (coronary artery disease) I25.10
[2022-12-03] MEDS ORDERED: fentaNYL citrate 2,500 MCG/250 ML BAG IV ONE (20:46)
[2022-12-03] MEDS ORDERED: fentaNYL BOLUS from BAG IV PRN (20:56)
[2022-12-03] MEDS ORDERED: fentaNYL citrate 2,500 MCG/250 ML BAG IV SCH (20:56)
[2022-12-03] MEDS: ICU Protocol for HYPERglycemia SCH (21:05)
[2022-12-03] MEDS: MEROPENEM 500 MG in SYRINGE 0 ML IV SCH (21:06)
[2022-12-03 21:07] LABS: Adenovirus PCR Not Detected (NotDetected); Bordetella parapertussis PCR Not Detected (NotDetected); Bordetella pertussis PCR Not Detected (NotDetected); Chlamydia pneumoniae PCR Not Detected (NotDetected); Coronavirus 229E PCR Not Detected (NotDetected); Coronavirus CoV-2 (COVID19)PCR Not Detected (NotDetected); Coronavirus HKU1 PCR Not Detected (NotDetected); Coronavirus NL63 PCR Not Detected (NotDetected); Coronavirus OC43PCR Not Detected (NotDetected); Human Metapneumovirus PCR Not Detected (NotDetected); Influenza A PCR Not Detected (NotDetected); Influenza B PCR Not Detected (NotDetected); Mycoplasma pneumoniae PCR Not Detected (NotDetected); Parainfluenza Virus 1 PCR Not Detected (NotDetected); Parainfluenza Virus 2 PCR Not Detected (NotDetected); Parainfluenza Virus 3 PCR Not Detected (NotDetected); Parainfluenza Virus 4 PCR Not Detected (NotDetected); Respiratory Syncytial VirusPCR Not Detected (NotDetected); Rhinovirus/Enterovirus PCR Not Detected (NotDetected)
--- NOTE | 2022-12-03 21:12 | XRay Report ---
XR chest 1V portable HISTORY: 77 years-old Male OG tube placement acute respiratory failure COMPARISON: CTA chest of same day TECHNIQUE: AP view of the chest FINDINGS: Median sternotomy. Endotracheal tube overlies the midline, 3.4 cm superior to the steven. Distal tip of the enteric tube projects over the gastric cardia with side-port within the distal esophagus. Exte nsive reticular nodular opacities with bronchial wall thickening redemonstrated. No pneumothorax or p leural effusion. Bones appear grossly intact. Moderate gaseous distention of the stomach. IMPRESSION: 1. Endotracheal and enteric tube placement as above. 2. Extensive reticular nodular opacities redemonstrated compatible with a nonspecific infectious or i nflammatory bronchiolitis/pneumonitis. ACT 112: Negative or not required by law. The above report was generated using voice recognition software. It may contain grammatical, syntax o r spelling errors. Electronically signed by: Marcel Cloud M.D. 12/03/2022 9:11 PM
[2022-12-03] MEDS ORDERED: PLASMA-LYTE A 500 ML IV ONE (21:17)
[2022-12-03] MEDS: PLASMA-LYTE A 1,000 ML IV SCH (21:25)
--- NOTE | 2022-12-03 21:55 | Procedure Note ---
Procedure Note Date of Service December 03, 2022 Note ARTERIAL LINE PROCEDURE NOTE: Procedure: Arterial Line Placement Proceduralist: Rm ALEXANDER ([facility] Attending: Dr. PEREZ Indication: Monitoring on Pressors Anesthesia: [x]Lidocaine 1% Emergent consent was implied as patient is full code and no family immediately available and is with rapid escalation of vasopressor requirements. A time-out was completed verifying correct patient, procedure, site, positioning. Allens test was performed to ensure adequate perfusion. Ultrasound was used to echometer engineer the vessel as well as for direct visualization to aid placing. Patients LEFT wrist was prepped and draped in the usual sterile fashion. Ultrasound guidance was used to aid needle placement. A 20g Arrow arterial line was introduced into the LEFT RADIAL artery with 1 attempt. Catheter was threaded, and the needle was removed with appropriate blood return. Good waveform was observed. The line was then sutured in place and covered with sterile dressing. The patient tolerated the procedure well. Images were not saved to the medical record secondary to urgent need. Blood Loss: Minimal Complications: None Coding CPT Codes Tubes, Drains, and Vasc Access - Tubes, Drains, and Vasc Access: [id number] Arterial Cath/Cannulation Sampling/Monitoring/Transfusion ([id number]) [facility] [place] Codes (Charges) Tubes, Drains, and Vasc Access Procedure 1: Tubes, Drains, and Vasc Access: [id number] Arterial Cath/Cannulation Sampling/Monitoring/Transfusion
[2022-12-03 21:58] LABS: Appearance Urine Clear (Clear); Bacteria Urine Automated Negative (Negative); Bilirubin Urine Negative (Negative); Blood Urine Negative (Negative); Color Urine Yellow; Epithelial Cell Urine Auto 20-30 /lpf (0-5); Glucose Urine UA Negative (Negative); Ketones Urine Negative (Negative); Leukocyte Esterase Urine Negative (Negative); Nitrite Urine Negative (Negative); Protein Urine Trace (Negative); RBC Urine Automated 0-4 /hpf (0-4); Specific Gravity Urine 1.021 (1.000-1.030); Urobilinogen Urine Negative (Negative)
[2022-12-03] MEDS: VASOPRESSIN 20 UNITS in 0.9 % SODIUM CHLORIDE 100 ML IV SCH (22:05)
[2022-12-03 22:27] LABS: iSTAT Art Bld Gas pCO2 Correct 69 mmHg (35-46); iSTAT Art Bld Gas pH Corrected 7.242 (7.35-7.45); iSTAT Arterial Blood Gas HCO3 30 meg/L (19-24); iSTAT Arterial Blood Gas pCO2 70 mmHg (35-46); iSTAT Arterial Blood Gas pH 7.24 (7.35-7.45); iSTAT Arterial Blood Gas pO2 88 mmHg (80-95); iSTAT Arterial Blood Gas pO2 C 87; iSTAT Carbon Dioxide 32 mmol/L (24-31); iSTAT Hematocrit 33 % (42-52); iSTAT Hemoglobin 11.2 g/dl (14.0-18.0); iSTAT Potassium 3.7 mmol/L (3.3-5.0); iSTAT Site Art Line; iSTAT Sodium 146 mmol/L (135-144)
[2022-12-03] MEDS: FORMOTEROL 20 MCG/2 ML VIAL NEB SCH (23:01)
[2022-12-03] MEDS: BUDESONIDE 0.25 MG/2 ML VIAL (PULMICORT) NEB SCH (23:02)
[2022-12-03] MEDS ORDERED: ACETAMINOPHEN 1,000 MG/100 ML VIAL IV PRN (23:51)
[2022-12-04] MEDS ORDERED: PLASMA-LYTE A 500 ML IV ONE ×2 (01:30→06:50)
[2022-12-04] MEDS ORDERED: AZITHROMYCIN 500 MG in DEXTROSE 5% 250 ML IV ONE (01:30)
[2022-12-04] MEDS: Standard Conc; 4mg in 250mL IV SCH ×2 (01:55→04:04)
[2022-12-04] MEDS: MEROPENEM 500 MG in SYRINGE 0 ML IV SCH ×4 (02:00→20:12)
[2022-12-04 04:16] LABS: iSTAT Art Bld Gas pCO2 Correct 54 mmHg (35-46); iSTAT Art Bld Gas pH Corrected 7.324 (7.35-7.45); iSTAT Arterial Blood Gas HCO3 28 meg/L (19-24); iSTAT Arterial Blood Gas pCO2 54 mmHg (35-46); iSTAT Arterial Blood Gas pH 7.33 (7.35-7.45); iSTAT Arterial Blood Gas pO2 76 mmHg (80-95); iSTAT Arterial Blood Gas pO2 C 78; iSTAT Carbon Dioxide 30 mmol/L (24-31); iSTAT Hematocrit 35 % (42-52); iSTAT Hemoglobin 11.9 g/dl (14.0-18.0); iSTAT Potassium 3.5 mmol/L (3.3-5.0); iSTAT Site Art Line; iSTAT Sodium 141 mmol/L (135-144)
[2022-12-04] MEDS: VASOPRESSIN 20 UNITS in 0.9 % SODIUM CHLORIDE 100 ML IV SCH ×3 (04:30→20:44)
[2022-12-04 04:59] LABS: BUN Creatinine Ratio 48.3 (10-20); Calcium 7.8 mg/dl (8.6-10.3); Creatinine Clr Calc Pharmacy 54.8 ml/min; Est GFR (African American) 95.8 ml/min; Est GFR (Non-African American) 82.7 ml/min; Phosphorus 1.7 mg/dl (2.5-4.9); Potassium 3.6 mmol/L (3.5-5.1)
[2022-12-04 05:18] LABS: Basophils # (auto) 0.02 K/uL (0.00-0.20); Basophils % (auto) 0.2 %; Hematocrit (blood only) 38.1 % (42.0-52.0); Hemoglobin 11.9 g/dl (14.0-18.0); Immature Granulocytes # (auto) 0.04 K/uL (0.01-0.20); Immature Granulocytes % (auto) 0.4 %; Lymphocytes # (auto) 0.28 K/uL (1.20-3.40); Lymphocytes % (auto) 2.7 %; Mean Corpuscular Hemoglobin 30.9 pg (25.0-34.0); Mean Corpuscular Hgb Conc 31.2 g/dL (32.0-36.0); Mean Platelet Volume 12.1 fL (9.4-12.4); Monocytes % (auto) 8.7 %; Neutrophils # (auto) 9.14 K/uL (1.40-6.50); Platelet Count 159 K/uL (130-400); RDW Coefficient of Variation 15.5 % (11.5-14.5); RDW Standard Deviation 56.7 fL (36.4-46.3); Red Blood Count 3.85 M/uL (4.70-6.10); White Blood Count 10.38 K/ul (4.8-10.8)
[2022-12-04] MEDS ORDERED: POTASSIUM PHOS 3 MMOL/1 ML INFUSION IV STA (06:02)
[2022-12-04] MEDS: PLASMA-LYTE A 1,000 ML IV SCH ×3 (06:13→23:24)
[2022-12-04] MEDS: ICU ELECTROLYTE REPLACEMENT PROTOCOL SCH ×2 (06:20→14:45)
[2022-12-04] MEDS: Double Conc; 16mg in 500mL IV SCH ×2 (06:34→19:56)
[2022-12-04] MEDS ORDERED: POTASSIUM PHOSPHATE 15 MMOL in SODIUM CHLORIDE 0.9% 250 ML IV ONE (07:00)
[2022-12-04] MEDS: MIDODRINE HCL 2.5 MG TAB PO SCH ×3 (07:22→16:57)
[2022-12-04] MEDS: HEPARIN SOD 5,000 UNIT/0.5 ML VIAL SQ SCH ×2 (07:22→20:09)
[2022-12-04] MEDS ORDERED: ICU Protocol for HYPERglycemia SCH (07:30)
[2022-12-04] MEDS: BUDESONIDE 0.25 MG/2 ML VIAL (PULMICORT) NEB SCH ×2 (07:38→20:00)
[2022-12-04] MEDS: FORMOTEROL 20 MCG/2 ML VIAL NEB SCH ×2 (07:39→19:17)
--- NOTE | 2022-12-04 07:41 | XRay Report ---
XR chest 1V portable HISTORY: 77 years-old Male evaluate lines and ett and lung spaces acute respiratory failure COMPARISON: 12/03/2022 TECHNIQUE: AP view of the chest FINDINGS: Endotracheal tube overlies the midline, 3 cm superior to the steven. Distal tip of enteric tube proje cts over the gastric cardia. Extensive reticular nodular opacities with bronchial wall thickening red emonstrated. No pneumothorax or pleural effusion. Bones appear grossly intact. IMPRESSION: 1. Lines and tubes as above. 2. Extensive reticular nodular opacities redemonstrated compatible with a nonspecific infectious or i nflammatory bronchiolitis/pneumonitis. ACT 112: Negative or not required by law. The above report was generated using voice recognition software. It may contain grammatical, syntax o r spelling errors. Electronically signed by: Marcel Cloud M.D. 12/04/2022 7:40 AM
--- NOTE | 2022-12-04 07:41 | Electrocardiogram Report ---
Test Reason : Blood Pressure : / mmHG Vent. Rate : 064 BPM Atrial Rate : 064 BPM P-R Int : 286 ms QRS Dur : 066 ms QT Int : 368 ms P-R-T Axes : 096 100 191 degrees QTc Int : 379 ms Sinus rhythm with 1st degree A-V block Rightward axis Low voltage QRS Marked ST abnormality, possible inferior subendocardial injury Abnormal ECG When compared with ECG of 03-DEC-2022 17:52, (unconfirmed) KS interval has increased ST less depressed in Anterolateral leads T wave inversion no longer evident in Inferior leads Inverted T waves have replaced nonspecific T wave abnormality in Anterior leads Confirmed by Figueroa Correa ([id number]) on 12/04/2022 7:41:33 AM Referred By: REFERRED SELF Confirmed By:Davonte Correa
--- NOTE | 2022-12-04 07:41 | Electrocardiogram Report ---
Test Reason : Blood Pressure : / mmHG Vent. Rate : 113 BPM Atrial Rate : 113 BPM P-R Int : 164 ms QRS Dur : 076 ms QT Int : 304 ms P-R-T Axes : 070 074 223 degrees QTc Int : 416 ms Sinus tachycardia Possible Left atrial enlargement Low voltage QRS Abnormal ECG When compared with ECG of 03-DEC-2022 18:03, (unconfirmed) MD interval has decreased Vent. rate has increased BY [address] no longer depressed in Inferior leads ST no longer depressed in Lateral leads Confirmed by Figueroa Correa ([id number]) on 12/04/2022 7:40:42 AM Referred By: REFERRED SELF Confirmed By:Davonte Correa
--- NOTE | 2022-12-04 07:42 | Electrocardiogram Report ---
Test Reason : Blood Pressure : / mmHG Vent. Rate : 139 BPM Atrial Rate : 139 BPM P-R Int : 142 ms QRS Dur : 072 ms QT Int : 280 ms P-R-T Axes : 059 070 046 degrees QTc Int : 426 ms Sinus tachycardia Nonspecific ST and T wave abnormality Abnormal ECG When compared with ECG of 09-NOV-2022 14:16, Vent. rate has increased BY 74 BPM Non-specific change in ST segment in Inferior leads ST now depressed in Lateral leads T wave inversion now evident in Inferior leads Nonspecific T wave abnormality now evident in Lateral leads Confirmed by Figueroa Correa ([id number]) on 12/04/2022 7:42:00 AM Referred By: REFERRED SELF Confirmed By:Davonte Correa
--- NOTE | 2022-12-04 07:46 | Electrocardiogram Report ---
Test Reason : Blood Pressure : / mmHG Vent. Rate : 078 BPM Atrial Rate : 078 BPM P-R Int : 162 ms QRS Dur : 078 ms QT Int : 344 ms P-R-T Axes : 071 070 214 degrees QTc Int : 392 ms Normal sinus rhythm Marked ST abnormality, possible inferior subendocardial injury Marked ST abnormality, possible anterolateral subendocardial injury Abnormal ECG When compared with ECG of 03-DEC-2022 17:32, (unconfirmed) Vent. rate has decreased BY [address] now depressed in Inferior leads ST more depressed Anterior leads Nonspecific T wave abnormality, worse in Anterolateral leads Confirmed by Figueroa Correa ([id number]) on 12/04/2022 7:46:25 AM Referred By: REFERRED SELF Confirmed By:Davonte Correa
[2022-12-04] MEDS ORDERED: SODIUM BICARB 8.4% INJ 50 MEQ/50 ML SYR IV ONE (08:08)
[2022-12-04] MEDS ORDERED: CALCIUM CHLORIDE 10% 10 ML SYR IV ONE (08:08)
[2022-12-04] MEDS: ALBUT/IPRATROP 3MG/0.5MG NEB 3 ML VIAL INH PRN ×3 (08:11→22:00)
--- NOTE | 2022-12-04 08:17 | Critical Care Progress Note ---
Date of Service December 04, 2022 Assessment & Plan (1) Acute on chronic respiratory failure with hypoxia and hypercapnia: (2) Cardiac arrest: (3) Acute exacerbation of chronic obstructive pulmonary disease: (4) Septic shock: (5) Recurrent aspiration pneumonia: (6) CAD (coronary artery disease): Plan Reason Critically Ill: 77 YOM admitted to [facility] for progressive hypercarbic/hypoxic respiratory resulting in short course of cardiac arrest which appears to have been PEA and intubation with mechanical ventilation. Currently in shock likely septic from aspiration pneumonia requiring high dose vasopressors to maintain MAP. The patient has a history of chronic aspiration and resistant Pseudomonas colonization with bronchiectasis. 24-hour events: The patient presented to the emergency room was intubated on arrival. He suffered a PEA arrest there. He is continue to demonstrate hemodynamic lability requiring 2 high-dose pressors with episodic drops in his blood pressure. He has received about 4 L of crystalloid. He continues to have copious secretions. Recommendations: Neuro -status postarrest. At risk for anoxic encephalopathy as well as metabolic encephalopathy. Imaging of the head has not been conducted. If the patient demonstrates enough stability to consider noncontrast CT of the head that will be pursued. We will keep sedated right now as his hemodynamic status would preclude potential vent liberation. Cardiac -profound shock state. He was evaluated as a cardiac alert in the emergency room. Formal echocardiogram pending. Bedside echo on my evaluation this morning demonstrated the RV to be hypokinetic and slightly underfilled. We will perform fluid responsive assessment to see whether or not additional fluids might be beneficial. At risk for relative adrenal insufficiency so we will place on hydrocortisone 50 mg IV every 6. Continue norepinephrine and vasopressin. If the patient fails to respond, consideration for palliative care would be appropriate. Patient's lactate initially improved however it is climbing now which is worrisome. Respiratory -acute on chronic hypoxemic and hypercarbic respiratory failure. The patient has fairly severe bronchiectasis with underlying Pseudomonas infection. Currently covering with meropenem. See comments regarding ID below. We will continue ventilator strategy for now. Continue pulmonary toilet. Hemodynamics preclude trial SBT/extubation at this point in time. His blood gas demonstrates an acute respiratory acidosis. Will adjust ventilator accordingly. GI -history of chronic aspiration with laryngeal cancer. PEG tube in place. He is hemodynamics preclude tube feeding at this point in time. We will continue to follow clinically. Stress ulcer prophylaxis will be initiated. Patient does appear malnourished and if his hemodynamics improve, nutritional assessment will be obtained. RENAL/LYTES -renal function stable currently. Electrolytes are being replaced including calcium and phosphate. - Sanchez to gravity- continue while intubated and sedated for accurate assessment of urinary output ENDO - glycemic control per protocol. Initiating stress dose steroids. HEME -history of chronic anemia. Continue to follow at this point in time. No evidence of acute blood loss. ID -Pseudomonas bronchiectasis. Currently day #2 meropenem. Continue for now. LINES/IV ACCESS - CVL, Arterial line, ETT, OGT, Sanchez Catheter Continue use of these lines DVT PROPHYLAXIS - SCDS, Heparin 5000 units subq BID CODE STATUS: Discussed with the son this morning. Prognosis is guarded at best. He is at risk for anoxic encephalopathy given his extended code in the emergency room. I advised him that I do not think there would be additional benefit by CPR or defibrillation at this point time if the patient suffers an arrest with the amount of support that he is on at this point time. He is in agreement. We will change his code to conditional status with no escalation of care. Hopefully the patient will respond favorably but again his condition is guarded DISPO: ICU while on vasopressor agents and requiring mechanical ventilation support Patient is critically ill with multiple life-threatening issues at this point in time. He is on life support. There is significant possibility of clinical deterioration and/or . A total of 60 minutes was spent in evaluation management stabilization of this patient including discussion on multidisciplinary rounds and with bedside clinical care nurse as well as updating family members. Admission and Anticipated Discharge Date Admission Date: December 03, 2022 Subjective Patient is intubated and sedated Review of Systems Review of Systems: Unobtainable due to endotracheal tube Physical Exam Constitutional: + ill appearing, + cachectic and + mechanically ventilated Neck: trachea midline, no thyromegaly Respiratory: no labored breathing and not tachypneic Auscultation: + rhonchi Cardiovascular: RRR, no murmur, no edema Gastrointestinal (Abdomen): normal bowel sounds, soft, nontender, no hepatosplenomegaly PEG tube in place Musculoskeletal: Extremities: extremities normal to inspection Skin: no rashes, warm and dry Neurologic: Sedated on the ventilator Lymphatic: no cervical lymphadenopathy Results & Data Results & Data Vital Signs (Past 12 Hours) Vital Signs Temp Pulse Resp BP Pulse Ox FiO2 12/04/22 06:10 37.1 C 85 25 H 93 12/04/22 06:10 114/74 12/04/22 06:06 37.1 C 86 28 H 93 12/04/22 06:06 95/73 L 12/04/22 06:00 37.1 C 88 29 H 94 12/04/22 06:00 123/78 12/04/22 05:50 37.1 C 87 28 H 94 12/04/22 05:50 141/83 H 12/04/22 05:40 37.1 C 89 25 H 95 12/04/22 05:40 156/101 H 12/04/22 05:30 37.1 C 89 30 H 94 12/04/22 05:30 165/105 H 12/04/22 05:20 37.1 C 78 28 H 92 12/04/22 05:20 96/62 L 12/04/22 05:10 37.1 C 84 28 H 93 12/04/22 05:10 96/71 L 12/04/22 05:00 37.2 C 92 H 28 H 95 12/04/22 05:00 160/89 H 12/04/22 04:50 37.2 C 90 29 H 95 12/04/22 04:50 133/96 12/04/22 04:40 37.3 C 90 26 H 95 12/04/22 04:40 141/98 H 12/04/22 04:30 37.3 C 88 29 H 94 12/04/22 04:30 136/86 12/04/22 04:20 37.3 C 80 28 H 96 12/04/22 04:20 123/80 12/04/22 04:10 37.3 C 84 28 H 97 12/04/22 04:10 152/97 H 12/04/22 04:05 139/87 12/04/22 04:05 37.3 C 86 28 H 96 12/04/22 04:03 74/53 L 12/04/22 04:03 37.3 C 80 30 H 95 12/04/22 04:01 37.3 C 79 28 H 96 12/04/22 04:00 37.3 C 79 28 H 97 12/04/22 03:50 37.3 C 76 28 H 97 12/04/22 03:50 104/67 12/04/22 03:40 37.3 C 77 28 H 97 12/04/22 03:40 112/66 12/04/22 03:30 37.3 C 78 28 H 97 12/04/22 03:30 110/67 12/04/22 03:20 37.3 C 78 28 H 96 12/04/22 03:20 105/69 12/04/22 03:10 37.3 C 80 28 H 96 12/04/22 03:10 103/63 12/04/22 03:00 37.3 C 81 28 H 96 12/04/22 03:00 96/65 L 12/04/22 02:50 37.3 C 84 28 H 96 12/04/22 02:50 109/65 12/04/22 02:40 37.3 C 85 28 H 95 12/04/22 04:00 40 12/04/22 04:00 77 28 H 97 40 12/03/22 21:20 119 H 12/04/22 00:00 91 H 12/04/22 01:40 37.3 C 92 H 28 H 97 12/04/22 01:30 37.3 C 86 28 H 96 12/04/22 01:30 126/87 12/04/22 01:26 112/80 12/04/22 01:26 37.3 C 88 28 H 95 12/04/22 01:22 76/59 L 12/04/22 01:22 37.3 C 88 28 H 93 12/04/22 01:21 37.3 C 86 28 H 92 12/04/22 01:20 37.3 C 85 28 H 92 12/04/22 00:00 50 12/04/22 01:10 37.3 C 86 28 H 94 12/04/22 01:10 88/57 L 12/04/22 01:00 37.3 C 88 28 H 94 12/04/22 01:00 90/61 L 12/04/22 00:50 37.2 C 88 28 H 94 12/04/22 00:50 87/56 L 12/04/22 00:40 37.2 C 91 H 28 H 94 12/04/22 00:40 109/68 12/04/22 00:30 37.2 C 90 28 H 94 10/28/23 00:30 93/64 L 12/04/22 00:20 37.2 C 94 H 28 H 95 12/04/22 00:20 99/70 L 12/04/22 00:10 37.2 C 94 H 28 H 94 12/04/22 00:10 98/64 L 12/04/22 00:00 37.1 C 95 H 28 H 94 12/04/22 00:00 78/64 L 12/03/22 23:59 84/60 L 12/03/22 23:59 37.1 C 95 H 28 H 94 12/03/22 23:50 37.1 C 96 H 28 H 95 12/03/22 23:50 100/70 12/03/22 23:40 37.1 C 96 H 28 H 94 12/03/22 23:40 97/69 L 12/03/22 23:30 37.0 C 97 H 28 H 95 12/03/22 23:30 101/73 12/03/22 23:21 89/64 L 12/03/22 23:21 37.0 C 98 H 28 H 93 12/03/22 23:20 37.0 C 97 H 28 H 94 12/03/22 23:10 36.9 C 99 H 28 H 95 12/03/22 23:10 101/74 12/03/22 23:00 36.9 C 99 H 28 H 95 12/03/22 23:00 88/62 L 12/03/22 22:50 36.8 C 103 H 28 H 96 12/03/22 22:50 94/65 L 12/03/22 22:40 36.8 C 106 H 28 H 98 12/03/22 22:40 127/72 12/03/22 22:30 36.8 C 105 H 28 H 96 12/03/22 22:30 98/67 L 12/03/22 22:20 36.7 C 108 H 28 H 97 12/03/22 22:20 94/75 L 12/03/22 22:10 36.7 C 115 H 28 H 97 12/03/22 22:10 93/71 L 12/03/22 22:00 36.6 C 111 H 28 H 97 12/03/22 22:00 75/44 L 12/03/22 21:50 36.6 C 111 H 28 H 95 12/03/22 21:50 72/52 L 12/03/22 21:49 43/24 L 12/03/22 21:49 36.6 C 112 H 28 H 76 L 12/03/22 21:40 36.6 C 114 H 28 H 98 12/03/22 21:40 65/53 L 12/03/22 21:30 36.5 C 118 H 30 H 92 12/03/22 21:30 80/52 L 12/03/22 21:20 36.5 C 120 H 28 H 95 12/03/22 21:20 69/43 L 12/03/22 21:17 36.5 C 120 H 26 H 94 12/03/22 21:17 68/52 L 12/03/22 21:13 61/49 L 12/03/22 21:13 36.4 C L 121 H 27 H 83 L 12/03/22 21:10 36.4 C L 122 H 22 95 12/03/22 21:00 36.3 C L 122 H 27 H 97 12/03/22 21:00 100/69 12/03/22 20:56 96/70 L 12/03/22 20:56 36.3 C L 123 H 19 97 12/03/22 20:50 36.2 C L 123 H 19 100 12/03/22 20:45 95/59 L 12/03/22 20:45 36.1 C L 124 H 19 100 12/03/22 20:40 124 H 33 H 99 12/03/22 20:33 126 H 17 12/03/22 20:31 143/55 H 12/03/22 22:44 28 H 98 50 12/03/22 22:42 104 H 28 H 98 50 12/03/22 21:36 116 H 28 H 98 70 12/03/22 21:05 122 H 28 H 94 70 Critical Care Results & Data Vital Signs (Past 12 Hours) Vital Signs Temp Pulse Resp BP Pulse Ox FiO2 12/04/22 06:10 37.1 C 85 25 H 93 12/04/22 06:10 114/74 12/04/22 06:06 37.1 C 86 28 H 93 12/04/22 06:06 95/73 L 12/04/22 06:00 37.1 C 88 29 H 94 12/04/22 06:00 123/78 12/04/22 05:50 37.1 C 87 28 H 94 12/04/22 05:50 141/83 H 12/04/22 05:40 37.1 C 89 25 H 95 12/04/22 05:40 156/101 H 12/04/22 05:30 37.1 C 89 30 H 94 12/04/22 05:30 165/105 H 12/04/22 05:20 37.1 C 78 28 H 92 12/04/22 05:20 96/62 L 12/04/22 05:10 37.1 C 84 28 H 93 12/04/22 05:10 96/71 L 12/04/22 05:00 37.2 C 92 H 28 H 95 12/04/22 05:00 160/89 H 12/04/22 04:50 37.2 C 90 29 H 95 12/04/22 04:50 133/96 12/04/22 04:40 37.3 C 90 26 H 95 12/04/22 04:40 141/98 H 12/04/22 04:30 37.3 C 88 29 H 94 12/04/22 04:30 136/86 12/04/22 04:20 37.3 C 80 28 H 96 12/04/22 04:20 123/80 12/04/22 04:10 37.3 C 84 28 H 97 12/04/22 04:10 152/97 H 12/04/22 04:05 139/87 12/04/22 04:05 37.3 C 86 28 H 96 12/04/22 04:03 74/53 L 12/04/22 04:03 37.3 C 80 30 H 95 12/04/22 04:01 37.3 C 79 28 H 96 12/04/22 04:00 37.3 C 79 28 H 97 12/04/22 03:50 37.3 C 76 28 H 97 12/04/22 03:50 104/67 12/04/22 03:40 37.3 C 77 28 H 97 12/04/22 03:40 112/66 12/04/22 03:30 37.3 C 78 28 H 97 12/04/22 03:30 110/67 12/04/22 03:20 37.3 C 78 28 H 96 12/04/22 03:20 105/69 12/04/22 03:10 37.3 C 80 28 H 96 12/04/22 03:10 103/63 12/04/22 03:00 37.3 C 81 28 H 96 12/04/22 03:00 96/65 L 12/04/22 02:50 37.3 C 84 28 H 96 12/04/22 02:50 109/65 12/04/22 02:40 37.3 C 85 28 H 95 12/04/22 04:00 40 12/04/22 04:00 77 28 H 97 40 12/03/22 21:20 119 H 12/04/22 00:00 91 H 12/04/22 01:40 37.3 C 92 H 28 H 97 12/04/22 01:30 37.3 C 86 28 H 96 12/04/22 01:30 126/87 12/04/22 01:26 112/80 12/04/22 01:26 37.3 C 88 28 H 95 12/04/22 01:22 76/59 L 12/04/22 01:22 37.3 C 88 28 H 93 12/04/22 01:21 37.3 C 86 28 H 92 12/04/22 01:20 37.3 C 85 28 H 92 12/04/22 00:00 50 12/04/22 01:10 37.3 C 86 28 H 94 12/04/22 01:10 88/57 L 12/04/22 01:00 37.3 C 88 28 H 94 12/04/22 01:00 90/61 L 12/04/22 00:50 37.2 C 88 28 H 94 12/04/22 00:50 87/56 L 12/04/22 00:40 37.2 C 91 H 28 H 94 12/04/22 00:40 109/68 12/04/22 00:30 37.2 C 90 28 H 94 12/04/22 00:30 93/64 L 12/04/22 00:20 37.2 C 94 H 28 H 95 12/04/22 00:20 99/70 L 12/04/22 00:10 37.2 C 94 H 28 H 94 12/04/22 00:10 98/64 L 12/04/22 00:00 37.1 C 95 H 28 H 94 12/04/22 00:00 78/64 L 12/03/22 23:59 84/60 L 12/03/22 23:59 37.1 C 95 H 28 H 94 12/03/22 23:50 37.1 C 96 H 28 H 95 12/03/22 23:50 100/70 12/03/22 23:40 37.1 C 96 H 28 H 94 12/03/22 23:40 97/69 L 12/03/22 23:30 37.0 C 97 H 28 H 95 12/03/22 23:30 101/73 12/03/22 23:21 89/64 L 12/03/22 23:21 37.0 C 98 H 28 H 93 12/03/22 23:20 37.0 C 97 H 28 H 94 12/03/22 23:10 36.9 C 99 H 28 H 95 12/03/22 23:10 101/74 12/03/22 23:00 36.9 C 99 H 28 H 95 12/03/22 23:00 88/62 L 12/03/22 22:50 36.8 C 103 H 28 H 96 12/03/22 22:50 94/65 L 12/03/22 22:40 36.8 C 106 H 28 H 98 12/03/22 22:40 127/72 12/03/22 22:30 36.8 C 105 H 28 H 96 12/03/22 22:30 98/67 L 12/03/22 22:20 36.7 C 108 H 28 H 97 12/03/22 22:20 94/75 L 12/03/22 22:10 36.7 C 115 H 28 H 97 12/03/22 22:10 93/71 L 12/03/22 22:00 36.6 C 111 H 28 H 97 12/03/22 22:00 75/44 L 12/03/22 21:50 36.6 C 111 H 28 H 95 12/03/22 21:50 72/52 L 12/03/22 21:49 43/24 L 12/03/22 21:49 36.6 C 112 H 28 H 76 L 12/03/22 21:40 36.6 C 114 H 28 H 98 12/03/22 21:40 65/53 L 12/03/22 21:30 36.5 C 118 H 30 H 92 12/03/22 21:30 80/52 L 12/03/22 21:20 36.5 C 120 H 28 H 95 12/03/22 21:20 69/43 L 12/03/22 21:17 36.5 C 120 H 26 H 94 12/03/22 21:17 68/52 L 12/03/22 21:13 61/49 L 12/03/22 21:13 36.4 C L 121 H 27 H 83 L 12/03/22 21:10 36.4 C L 122 H 22 95 12/03/22 21:00 36.3 C L 122 H 27 H 97 12/03/22 21:00 100/69 12/03/22 20:56 96/70 L 12/03/22 20:56 36.3 C L 123 H 19 97 12/03/22 20:50 36.2 C L 123 H 19 100 12/03/22 20:45 95/59 L 12/03/22 20:45 36.1 C L 124 H 19 100 12/03/22 20:40 124 H 33 H 99 12/03/22 20:33 126 H 17 12/03/22 20:31 143/55 H 12/03/22 22:44 28 H 98 50 12/03/22 22:42 104 H 28 H 98 50 12/03/22 21:36 116 H 28 H 98 70 12/03/22 21:05 122 H 28 H 94 70 Lab & Micro Results (Past 24 Hours) RBC 3.85 M/uL (4.70-6.10) L 12/04/22 WBC 10.38 K/ul (4.8-10.8) 12/04/22 Hgb 11.9 g/dl (14.0-18.0) L 12/04/22 Hct 38.1 % (42.0-52.0) L 12/04/22 MCV 99.0 fL (80.0-100.0) 12/04/22 MCH 30.9 pg (25.0-34.0) 12/04/22 MCHC 31.2 g/dL (32.0-36.0) L 12/04/22 RDW Standard Deviation 56.7 fL (36.4-46.3) H 12/04/22 RDW Coefficient of Variation 15.5 % (11.5-14.5) H 12/04/22 Plt Count 159 K/uL (130-400) 12/04/22 MPV 12.1 fL (9.4-12.4) 12/04/22 Neutrophils (%) (Auto) 88.0 % 12/04/22 Lymphocytes (%) (Auto) 2.7 % 12/04/22 Monocytes # (Auto) 0.90 K/uL (0.11-0.59) H 12/04/22 Eosinophils # (Auto) 0.00 K/uL (0.00-0.50) 12/04/22 Immature Granulocyte % (Auto) 0.4 % 12/04/22 Neutrophils # (Auto) 9.14 K/uL (1.40-6.50) H 12/04/22 Lymphocytes # (Auto) 0.28 K/uL (1.20-3.40) L 12/04/22 Monocytes # (Auto) 0.90 K/uL (0.11-0.59) H 12/04/22 Eosinophils # (Auto) 0.00 K/uL (0.00-0.50) 12/04/22 Basophils # (Auto) 0.02 K/uL (0.00-0.20) 12/04/22 Immature Granulocyte # (Auto) 0.04 K/uL (0.01-0.20) 3 Na 141 mmol/L (136-145) 12/04/22 K 3.6 mmol/L (3.5-5.1) 12/04/22 Cl 104 mmol/L (98-107) 12/04/22 CO2 29 mmol/L (21-32) 12/04/22 Anion Gap 8 (3-11) 12/04/22 BUN 42 mg/dl (6-23) H 12/04/22 Creatinine 0.87 mg/dl (0.6-1.4) 12/04/22 Estimated GFR ( Amer) 95.8 ml/min 12/04/22 Estimated GFR (Non-Af Amer) 82.7 ml/min 12/04/22 BUN/Creatinine Ratio 48.3 (10-20) H 12/04/22 Glu 183 mg/dl (70-99(Fasting)) H 12/04/22 Ca 7.8 mg/dl (8.6-10.3) L 12/04/22 Phosphorus Level 1.7 mg/dl (2.5-4.9) L 12/04/22 Total Bilirubin 0.4 mg/dl (0.2-1.0) 12/03/22 Direct Bilirubin 0.2 mg/dl (0-0.2) 12/03/22 AST 75 U/L (13-39) H 12/03/22 ALT 37 U/L (7-52) 12/03/22 Alkaline Phosphatase 170 U/L (34-104) H 12/03/22 TP 8.7 gm/dl (6.0-8.3) H 12/03/22 Albumin 3.8 gm/dl (3.4-5.0) 12/03/22 Mg 2.0 mg/dl (1.7-2.4) 12/04/22 04:20 Calcium Level 7.8 mg/dl (8.6-10.3) L 12/04/22 04:20 Prothromb Time International Ratio 1.0 (0.9-1.1) 12/03/22 17:4 0 Venous Blood pH 7.20 (7.36-7.41) L 12/03/22 17:40 Venous Blood Partial Pressure CO2 99 mmHg (38-50) H 12/03/22 17 :40 Venous Blood Partial Pressure O2 26 mmHg 12/03/22 17:40 Venous Blood HCO3 39 mmol/L 12/03/22 17:40 Venous Blood Base Excess 6.9 mEq/L 12/03/22 17:40 Venous Blood Oxygen Saturation < 60.0 % 12/03/22 17:40 Reed Test NA 12/04/22 03:59 Microbiology 12/03/22 20:03 Gram Stain - Final Sputum,Vent Suction Diagnostic Findings (Past 24 Hours) Chest X-Ray 12/03/22 17:20 XR chest 1V portable CLINICAL HISTORY: Sepsis TECHNIQUE: Single frontal radiograph of the chest was obtained. Comparison: Comparison is made to chest radiograph 11/09/2022 FINDINGS: Endotracheal tube terminates 3.3 cm from the steven. Median sternotomy wires are seen. The cardiomediastinal silhouette is normal. Bronchial wall thickening is seen. There are likely superimposed airspace opacities. No evidence of pleural effusion or pneumothorax. IMPRESSION: 1. Likely multifocal airspace opacities compatible with pneumonia. 2. Satisfactory appearance of endotracheal tube. ACT 112: Negative or not required by law. Electronically signed by: Cresencio Esposito M.D. 12/03/2022 6:18 PM Chest CTA 12/03/22 18:33 Exam(s): CTA CHEST IV Amt: 112ml EXAM: CT Angiography Chest With Intravenous Contrast CLINICAL HISTORY: Reason for exam: PE. TECHNIQUE: Axial computed tomographic angiography images of the chest with intravenous contrast. CTDI is 16.01 mGy and DLP is 584.88 mGy-cm. Automated exposure control was utilized for the study. A dose lowering technique was utilized adhering to the principles of ALARA. MIP reconstructed images were created and reviewed. COMPARISON: September 06, 2022 FINDINGS: Pulmonary arteries: The pulmonary arterial tree is well opacified with contrast. No pulmonary emboli are identified. Aorta: The thoracic aorta is mildly calcified but nondilated. There is no aneurysm or dissection. Lungs: There is extensive bronchial wall thickening throughout the lungs consistent with bronchitis, similar to previous. There is diffuse tree-in-bud appearance throughout both lungs consistent with distal bronchial plugging. There are small areas of atelectasis in the right middle lobe and both costophrenic angles. No pneumothorax or pleural effusion is seen. No mass. Pleural space: See above. Heart: See below. Bones/joints: Mild degenerative changes throughout the spine. No acute fracture or bone lesion is seen. Previous sternotomy and aortic valvuloplasty per the heart is not enlarged. Mild coronary calcification is present. No dislocation. Soft tissues: Unremarkable. Lymph nodes: Unremarkable. No enlarged lymph nodes. Tubes, lines and devices: Endotracheal tube tip is at the level of the steven. Standard position would be pulled back 3-4 cm. There is a gastrostomy tube in the stomach. IMPRESSION: 1. Endotracheal tube tip is at the level of the steven. Standard position would be pulled back 3-4 cm. 2. There is extensive bronchial wall thickening throughout the lungs consistent with bronchitis, similar to previous. There is diffuse tree- in-bud appearance throughout both lungs consistent with distal bronchial plugging. There are small areas of atelectasis in the right middle lobe and both costophrenic angles. No pneumothorax or pleural effusion is seen. 3. The thoracic aorta is mildly calcified but nondilated. There is no aneurysm or dissection. 4. The pulmonary arterial tree is well opacified with contrast. No pulmonary emboli are identified. Electronically signed by: Gary Chacon MD 12/03/22 19:09 PM Chest X-Ray 12/03/22 20:14 XR chest 1V portable HISTORY: 77 years-old Male OG tube placement acute respiratory failure COMPARISON: CTA chest of same day TECHNIQUE: AP view of the chest FINDINGS: Median sternotomy. Endotracheal tube overlies the midline, 3.4 cm superior to the steven. Distal tip of the enteric tube projects over the gastric cardia with side-port within the distal esophagus. Extensive reticular nodular opacities with bronchial wall thickening redemonstrated. No pneumothorax or pleural effusion. Bones appear grossly intact. Moderate gaseous distention of the stomach. IMPRESSION: 1. Endotracheal and enteric tube placement as above. 2. Extensive reticular nodular opacities redemonstrated compatible with a nonspecific infectious or inflammatory bronchiolitis/pneumonitis. ACT 112: Negative or not required by law. The above report was generated using voice recognition software. It may contain grammatical, syntax or spelling errors. Electronically signed by: Marcel Cloud M.D. 12/03/2022 9:11 PM Chest X-Ray 12/04/22 05:00 XR chest 1V portable HISTORY: 77 years-old Male evaluate lines and ett and lung spaces acute respiratory failure COMPARISON: 12/03/2022 TECHNIQUE: AP view of the chest FINDINGS: Endotracheal tube overlies the midline, 3 cm superior to the steven. Distal tip of enteric tube projects over the gastric cardia. Extensive reticular nodular opacities with bronchial wall thickening redemonstrated. No pneumothorax or pleural effusion. Bones appear grossly intact. IMPRESSION: 1. Lines and tubes as above. 2. Extensive reticular nodular opacities redemonstrated compatible with a nonspecific infectious or inflammatory bronchiolitis/pneumonitis. ACT 112: Negative or not required by law. The above report was generated using voice recognition software. It may contain grammatical, syntax or spelling errors. Electronically signed by: Marcel Cloud M.D. 12/04/2022 7:40 AM I & O Totals 24 Hours 12/03/22 12/04/22 12/05/22 06:59 06:59 06:59 Intake Total 5454.089 / 5454.089 37.368 / 37.368 Output Total 850 / 850 Balance 4604.089 / 4604.089 37.368 / 37.368 Cumulative 12/03/22 17:11 thru 12/04/22 07:33 Intake Total 5491.457 Output Total 850 Balance 4641.457 RT Ventilator Mngmt (Last Documented) Ventilator Ordered Settings Ventilator Support Mode PRVC 12/04/22 04:00 Respiratory Rate 25 12/04/22 06:10 Ventilator Tidal Volume 380 12/04/22 04:00 Setting Minute Ventilation 10.6 12/04/22 04:00 Positive End Expiratory 5 12/04/22 04:00 Pressure Fraction of Inspired Oxygen 40 12/04/22 04:00 Ventilator - PT Measurements Respiratory Rate 25 Exhaled Tidal Volume 433 Minute Ventilation 10.6 Peak Inspiratory Airway 31 Pressure Plateau Pressure 27.6 Respiratory Cycle Inspiratory: 1:2.1 Expiratory Ratio Inspiratory Phase Time 0.7 End-Tidal CO2 22 Static Lung Compliance 19.16 Dynamic Lung Compliance 16.65 Normal Static Lung Compliance 44.00 Patient Measurements Comment setting changed due to pts high peak pressures Coding Level of Care Code 68865 CRITICAL CARE 1ST 30-74M Diagnoses Acute on chronic respiratory failure with hypoxia and hypercapnia J96.21; J96.22 Cardiac arrest I46.9 Acute exacerbation of chronic obstructive pulmonary disease J44.1 Septic shock A41.9; R65.21 Recurrent aspiration pneumonia J69.0 CAD (coronary artery disease) I25.10
--- NOTE | 2022-12-04 08:22 | History & Physical Report ---
Date of Service December 03, 2022 Assessment & Plan (1) Acute respiratory distress: Plan: 77-year-old male with past med significant for hyperlipidemia, hx of hypernatremia, recurrent aspiration pneumonia, COPD, vocal cord leukoplakia, dysphagia, history of severe epistaxis s/p sphenopalatine artery embolization, history of CAD, left bundle branch, hypertension, , severe protein energy malnutrition, sensorineural hearing loss, iron deficiency anemia, s/p PEG tube, s/p aortic valve replacement, s/p CABG, history of nasopharyngeal cancer s/p chemoradiation, recent history of COPD exacerbation secondary to Pseudomonas, recently in the hospital for acute respiratory failure secondary to aspiration pneumonia was brought in for respiratory distress. Acute respiratory distress Acute on chronic respiratory failure with hypoxia and hypercapnia Acute COPD exacerbation Septic shock Recurrent aspiration pneumonia Postcardiac arrest Currently on pressors Levophed and vasopressin Antibiotics IV meropenem IV hydrocortisone Continue home midodrine DuoNebs Close monitoring ICU Appreciate critical care help Cardiac arrest. History of CABG and bioprosthetic aortic valve replacement Required CPR and vasopressors with return of ROSC Seen by interventional cardiology for EKG changes thought mostly from septic shock Follow echocardiogram CTA chest no PE History of chronic aspiration History of nasopharyngeal cancer s/p chemoradiation s/p PEG tube Malnutrition We will hold tube feeds Lactic acidosis From above Improving History of severe epistaxis s/p sphenopalatine artery embolization DVT prophylaxis Heparin subcu Disposition ICU Full code History of CHF depression consideration for mechanical ventilation Admission and Anticipated Discharge Date Admission Date: December 03, 2022 History of Present Illness Chief Complaint: Septic shock and cardiac arrest Primary Care Provider: Prudencio Burns MD 77-year-old male with past med significant for hyperlipidemia, hx of hypernatremia, recurrent aspiration pneumonia, COPD, vocal cord leukoplakia, dysphagia, history of severe epistaxis s/p sphenopalatine artery embolization, history of CAD, left bundle branch, hypertension, , severe protein energy malnutrition, sensorineural hearing loss, iron deficiency anemia, s/p PEG tube, s/p aortic valve replacement, s/p CABG, history of nasopharyngeal cancer s/p chemoradiation, recent history of COPD exacerbation secondary to Pseudomonas, recently in the hospital for acute respiratory failure secondary to aspiration pneumonia was brought in for respiratory distress. Currently s/p intubated. Was in septic shock patient and had a cardiac arrest with no pulse . After CPR and vasopressors ROSC was obtained. Heart alert was also called because of EKG changes and seen by interventional cardiology and thought to be mostly from sepsis. As per son patient was apparently doing fine. Ambulating ok. But in afternoon he suddenly became sob and was gurgling. He tried to cough up stuff but was not improving and EMS was called and brought in here. Patient was DNR last admissions but son now thinks his Father in current situation may want to be full code. PMH as mentioned above. PSH. colonoscopy, CABG, EGD, right shoulder reconstruction, nasal endoscopy, tonsillectomy, cataract surgery, replacement of aortic valve with bioprosthetic aortic valve, surgical removal of erupted tooth. Social history. 1 pack a day for 50 years seems. Quit in 2013 no alcohol use. No drug use. Currently lives with his son Family history. Mother had arthritis. Father had liver cancer Allergies Allergy/AdvReac Type Severity Reaction Status Date / Time No Known Allergies Allergy Verified 10/18/22 18:52 Home Medications Medication Instructions Recorded Confirmed Type atorvastatin 40 mg tablet 40 mg feeding tube QPM 09/18/18 12/03/22 History nitroglycerin 0.4 mg sublingual 0.4 mg sublingual UD PRN Chest Pain 09/18/18 12/03/22 History tablet albuterol sulfate 90 mcg/actuation 2 inh inhalation Q6H PRN shortness 05/06/20 10/25/22 Rx aerosol inhaler (ProAir HFA) of breath or wheezing #8.5 grams nutritional supplements 0.08 1 ea feeding tube DIRECTED 02/19/21 10/26/22 History gram-2 kcal/mL liquid for tube feed (Nutren 2.0) ipratropium 0.5 mg-albuterol 3 mg 3 ml inhalation Q6H PRN Shortness 09/05/22 12/03/22 History (2.5 mg base)/3 mL nebulization Of Breath soln lorazepam 0.5 mg tablet 0.5 mg feeding tube HS PRN Anxiety 10/18/22 12/03/22 History midodrine 2.5 mg tablet 2.5 mg PO TID@0800,1200,1700 #90 11/05/22 12/03/22 Rx tabs Past Med/Surg History Medical History Acute hypoxemic respiratory failure Acute on chronic diastolic heart failure Acute renal insufficiency JULES (acute kidney injury) CAD (coronary artery disease) Cardiac murmur CHILD FROM RHEUMATIC FEVER CHF (congestive heart failure) Chronic pulmonary aspiration CKD (chronic kidney disease) stage 3, GFR 30-59 ml/min Elevated lactic acid level Former tobacco use Hearing deficit BILAT History of VT (myocardial infarction) 2017/ [facility] History of nasopharyngeal cancer s/p radiation, chemo- NO PORT ANYMORE CLEARED NOV 2013 History of rheumatic fever Hyperlipidemia Hypertension Left bundle branch block (LBBB) Palate abnormality prosthetic palate Pneumonia Radiation adverse effect Severe sepsis Shock Surgical History History of cardiac cath 2017 - [place] --> CABG - [facility]- follows w/ Dr. Milton- [facility]/ NO STENTS History of cataract surgery History of colonoscopy with polypectomy 09/25/2018. Propofol given, no issues. History of coronary artery bypass graft One vessel - 2016 - [facility] History of heart valve replacement Bioprosthetic aortic valve - [place] 2016 History of shoulder surgery RIGHT History of tonsillectomy History of tooth extraction History of vascular access device NO LONGER HAS PORT Hx of aortic valve replacement Status post insertion of percutaneous endoscopic gastrostomy (PEG) tube PLACED DUE TO PALATE SURGERY- THEN REMOVED 2014 Family History Father Cancer Liver Cancer Social History Smoking Status: Never smoker Tobacco Type: Cigarettes Second Hand Exposure: No; Do You Dip or Chew Tobacco: No; Hx Alcohol Use: No Hx Substance Use: No Preferred Language: Serbian Communication Ability: Effective Communication Ability Comment: Has tablet Coin Dealer Required: No Beliefs That Will Affect Care: None marital status: / Current Living Situation: Family Current Living Situation Comment: lives with son How many Children do You have: 1 Other Information That Helps Us Care for You: No Feels Safe at Home: Yes Assistive Devices: Cane, Glasses, Hearing Aid - Bilateral and Oxygen - Continuous Review of Systems Review of Systems: Unobtainable due to endotracheal tube Physical Exam Physical Exam: General- s/p intubated Head- atraumatic Eyes- eyes non reactive to light Neck- no JVD, Lungs- clear to auscultation bibasilar crackles, no wheezing Heart- regular rhythm; no murmur, no gallop. Abdomen- normal bowel sounds, soft, no distension. PEG tube site no erythema or drainage seen Extremities- no edema or erythema seen. Neuro- s/p intubation. Skin- warm & dry Results & Data Results & Data Vital Signs (Past 12 Hours) Vital Signs Temp Pulse Resp BP Pulse Ox O2 Del Method O2 Flow Rate 12/03/22 19:48 116 H 26 H 82/56 L 95 12/03/22 19:44 116 H 26 H 90/51 L 93 12/03/22 19:40 114 H 22 98/56 L 93 12/03/22 19:38 115 H 22 96/77 L 93 12/03/22 19:36 117 H 23 88/69 L 93 12/03/22 19:34 117 H 23 96/54 L 92 12/03/22 19:32 117 H 23 91/64 L 92 12/03/22 19:29 117 H 22 88/59 L 93 12/03/22 19:26 117 H 22 89/61 L 93 12/03/22 19:25 117 H 22 91/62 L 93 12/03/22 19:22 82/55 L 12/03/22 19:22 117 H 22 93 12/03/22 19:20 116 H 22 92 12/03/22 19:20 93/65 L 12/03/22 19:18 116 H 22 91 12/03/22 19:18 84/56 L 12/03/22 19:16 87/62 L 12/03/22 19:16 116 H 22 95 12/03/22 19:14 87/62 L 12/03/22 19:14 116 H 22 93 12/03/22 19:12 93/59 L 12/03/22 19:12 116 H 22 95 12/03/22 19:10 115 H 22 95 12/03/22 19:10 91/60 L 12/03/22 19:08 87/65 L 12/03/22 19:08 115 H 22 92 12/03/22 19:06 92/52 L 12/03/22 19:06 114 H 22 94 12/03/22 19:04 97/60 L 12/03/22 19:04 114 H 22 95 12/03/22 19:02 95/62 L 12/03/22 19:02 114 H 22 96 12/03/22 19:00 114 H 22 97 12/03/22 19:00 108/63 12/03/22 18:59 103/63 12/03/22 18:59 115 H 23 12/03/22 18:58 115 H 17 98 12/03/22 18:38 121/58 L 12/03/22 18:38 116 H 22 99 12/03/22 18:36 112 H 22 99 12/03/22 18:36 84/50 L 12/03/22 18:34 84/47 L 12/03/22 18:34 113 H 23 99 12/03/22 18:32 92/52 L 12/03/22 18:32 114 H 22 99 12/03/22 18:30 115 H 22 99 12/03/22 18:30 94/59 L 12/03/22 18:28 118 H 22 99 12/03/22 18:28 93/53 L 12/03/22 18:27 119 H 22 99 12/03/22 18:27 91/54 L 12/03/22 18:26 85/55 L 12/03/22 18:26 121 H 22 100 12/03/22 18:17 138 H 12/03/22 18:55 118 H 22 98 12/03/22 19:26 Mechanical Vent 93 12/03/22 19:26 93 Mechanical Vent 12/03/22 17:20 35.8 C L 12/03/22 17:20 40 H CPAP 12/03/22 18:24 126 H 22 98 12/03/22 18:24 113/63 12/03/22 18:22 130 H 22 97 12/03/22 18:22 138/64 12/03/22 18:21 147/72 H 12/03/22 18:21 132 H 22 96 12/03/22 18:20 135 H 23 97 12/03/22 18:20 163/75 H 12/03/22 18:18 137 H 18 96 12/03/22 18:18 168/70 H 12/03/22 18:10 75 12/03/22 18:10 56/35 L 12/03/22 18:00 69 18 10/27/23 17:51 103 H 17 12/03/22 17:50 123 H 15 12/03/22 17:48 140 H 22 12/03/22 17:48 47/29 L 12/03/22 17:40 139 H 25 H 12/03/22 17:32 80/61 L 12/03/22 17:32 139 H 17 12/03/22 17:30 140 H 20 12/03/22 17:29 140 H 22 12/03/22 18:09 44 L 12/03/22 17:56 70 12/03/22 17:28 140 H FiO2 12/03/22 19:48 12/03/22 19:44 12/03/22 19:40 12/03/22 19:38 12/03/22 19:36 12/03/22 19:34 12/03/22 19:32 12/03/22 19:29 12/03/22 19:26 12/03/22 19:25 12/03/22 19:22 12/03/22 19:22 12/03/22 19:20 12/03/22 19:20 12/03/22 19:18 12/03/22 19:18 12/03/22 19:16 12/03/22 19:16 12/03/22 19:14 12/03/22 19:14 12/03/22 19:12 12/03/22 19:12 12/03/22 19:10 12/03/22 19:10 12/03/22 19:08 12/03/22 19:08 12/03/22 19:06 12/03/22 19:06 12/03/22 19:04 12/03/22 19:04 12/03/22 19:02 12/03/22 19:02 12/03/22 19:00 12/03/22 19:00 12/03/22 18:59 12/03/22 18:59 12/03/22 18:58 12/03/22 18:38 12/03/22 18:38 12/03/22 18:36 12/03/22 18:36 12/03/22 18:34 12/03/22 18:34 12/03/22 18:32 12/03/22 18:32 12/03/22 18:30 12/03/22 18:30 12/03/22 18:28 12/03/22 18:28 12/03/22 18:27 12/03/22 18:27 12/03/22 18:26 12/03/22 18:26 12/03/22 18:17 12/03/22 18:55 100 12/03/22 19:26 12/03/22 19:26 12/03/22 17:20 12/03/22 17:20 12/03/22 18:24 12/03/22 18:24 12/03/22 18:22 12/03/22 18:22 12/03/22 18:21 12/03/22 18:21 12/03/22 18:20 12/03/22 18:20 12/03/22 18:18 12/03/22 18:18 12/03/22 18:10 12/03/22 18:10 12/03/22 18:00 12/03/22 17:51 12/03/22 17:50 12/03/22 17:48 12/03/22 17:48 12/03/22 17:40 12/03/22 17:32 12/03/22 17:32 12/03/22 17:30 12/03/22 17:29 12/03/22 18:09 12/03/22 17:56 12/03/22 17:28 Diagnostic Findings Laboratory Results WBC 10.38 K/ul (4.8-10.8) D 12/04/22 04:20 RBC 3.85 M/uL (4.70-6.10) L 12/04/22 04:20 Hgb 11.9 g/dl (14.0-18.0) L 12/04/22 04:20 POC Hgb 11.9 g/dl (14.0-18.0) L 12/04/22 03:59 Hct 38.1 % (42.0-52.0) L 12/04/22 04:20 POC Hct 35 % (42-52) L 12/04/22 03:59 MCV 99.0 fL (80.0-100.0) 12/04/22 04:20 MCH 30.9 pg (25.0-34.0) 12/04/22 04:20 MCHC 31.2 g/dL (32.0-36.0) L 12/04/22 04:20 RDW Std Deviation 56.7 fL (36.4-46.3) H 12/04/22 04:20 RDW Coeff of Navid 15.5 % (11.5-14.5) H 12/04/22 04:20 Plt Count 159 K/uL (130-400) 12/04/22 04:20 MPV 12.1 fL (9.4-12.4) 12/04/22 04:20 Immature Gran % (Auto) 0.4 % 12/04/22 04:20 Neut % (Auto) 88.0 % 12/04/22 04:20 Lymph % (Auto) 2.7 % 12/04/22 04:20 [place] % (Auto) 8.7 % 12/04/22 04:20 Eos % (Auto) 0.0 % 12/04/22 04:20 Baso % (Auto) 0.2 % 12/04/22 04:20 Neut # (Auto) 9.14 K/uL (1.40-6.50) H 12/04/22 04:20 Lymph # (Auto) 0.28 K/uL (1.20-3.40) L 12/04/22 04:20 [place] # (Auto) 0.90 K/uL (0.11-0.59) H 12/04/22 04:20 Eos # (Auto) 0.00 K/uL (0.00-0.50) 12/04/22 04:20 Baso # (Auto) 0.02 K/uL (0.00-0.20) 12/04/22 04:20 Immature Gran # (Auto) 0.04 K/uL (0.01-0.20) 12/04/22 04:20 PT 11.4 Seconds (9.0-12.0) 12/03/22 17:40 INR 1.0 (0.9-1.1) 12/03/22 17:40 APTT 26.3 Seconds (21.0-31.0) 12/03/22 17:40 PTT Ratio 0.9 12/03/22 17:40 Sample Site Art Line 12/04/22 03:59 POC pH 7.33 (7.35-7.45) L 12/04/22 03:59 POC pCO2 54 mmHg (35-46) H 12/04/22 03:59 POC pO2 76 mmHg (80-95) L 12/04/22 03:59 POC HCO3 28 seda/L (19-24) H 12/04/22 03:59 POC Total CO2 30 mmol/L (24-31) 12/04/22 03:59 POC Base Excess 2.0 seda/L (-9-1.8) H 12/04/22 03:59 ABG pH (Temp Correct) 7.324 (7.35-7.45) L 12/04/22 03:59 ABG pCO2 (Temp Corrct 54 mmHg (35-46) H 12/04/22 03:59 POC ABG pO2 at Pt Temp 78 12/04/22 03:59 POC ABG O2 Sat 94.0 % (90-95) 12/04/22 03:59 Reed Test NA 12/04/22 03:59 VBG pH 7.20 (7.36-7.41) L 12/03/22 17:40 VBG pCO2 99 mmHg (38-50) H 12/03/22 17:40 VBG pO2 26 mmHg 12/03/22 17:40 VBG HCO3 39 mmol/L 12/03/22 17:40 VBG O2 Saturation < 60.0 % 12/03/22 17:40 VBG Base Excess 6.9 mEq/L 12/03/22 17:40 O2 Delivery Device Ventilator 12/04/22 03:59 POC O2 Rate 28 12/04/22 03:59 Tidal Volume 380 12/04/22 03:59 PEEP 5 12/04/22 03:59 POC Sodium 141 mmol/L (135-144) 12/04/22 03:59 Sodium 141 mmol/L (136-145) 12/04/22 04:20 POC Potassium 3.5 mmol/L (3.3-5.0) 12/04/22 03:59 Potassium 3.6 mmol/L (3.5-5.1) 12/04/22 04:20 POC Chloride 101 mmol/L (101-112) 12/03/22 17:49 Chloride 104 mmol/L (98-107) 12/04/22 04:20 Carbon Dioxide 29 mmol/L (21-32) 12/04/22 04:20 POC Total CO2 39 mmol/L (24-31) H 12/03/22 17:49 Anion Gap 8 (3-11) 12/04/22 04:20 POC Anion Gap 12.0 mmol/L (16-25) L 12/03/22 17:49 POC BUN 58 mg/dl (7-18) H 12/03/22 17:49 BUN 42 mg/dl (6-23) H 12/04/22 04:20 Creatinine 0.87 mg/dl (0.6-1.4) 12/04/22 04:20 POC Creatinine 1.0 mg/dl (0.6-1.3) 12/03/22 17:49 Est Cr Clr Drug Dosing 54.8 ml/min 12/04/22 04:20 Est GFR ( Amer) 95.8 ml/min 12/04/22 04:20 Est GFR (Non-Af Amer) 82.7 ml/min 12/04/22 04:20 BUN/Creatinine Ratio 48.3 (10-20) H 12/04/22 04:20 Glucose 183 mg/dl (70-99(Fasting)) H 12/04/22 04:20 POC Glucose 129 mg/dl (70-99) H 12/03/22 20:48 POC Glucose (other) 84 mg/dl (70-99) 12/03/22 17:49 Lactate 3.5 mmol/L (0.4-2.0) H* 12/04/22 07:09 Calcium 7.8 mg/dl (8.6-10.3) L 12/04/22 04:20 POC Ioniz Calcium Jael 1.16 mmol/l (1.12-1.32) 12/03/22 17:49 Phosphorus 1.7 mg/dl (2.5-4.9) L 12/04/22 04:20 Magnesium 2.0 mg/dl (1.7-2.4) 12/04/22 04:20 Total Bilirubin 0.4 mg/dl (0.2-1.0) 12/03/22 17:40 Direct Bilirubin 0.2 mg/dl (0-0.2) 12/03/22 17:40 AST 75 U/L (13-39) H 12/03/22 17:40 ALT 37 U/L (7-52) 12/03/22 17:40 Alkaline Phosphatase 170 U/L (34-104) H 12/03/22 17:40 Troponin I High Sens 14.4 pg/ml (0-20) 12/03/22 17:40 B-Natriuretic Peptide 87 pg/ml (0-100) 12/03/22 17:40 Total Protein 8.7 gm/dl (6.0-8.3) H 12/03/22 17:40 Albumin 3.8 gm/dl (3.4-5.0) 12/03/22 17:40 Procalcitonin 0.51 ng/ml (0-0.5) H 12/03/22 17:40 Urine Color Yellow 12/03/22 19:55 Urine Appearance Clear (Clear) 12/03/22 19:55 Urine pH 7.0 (4.5-7.5) 12/03/22 19:55 Ur Specific [place] 1.021 (1.000-1.030) 12/03/22 19:55 Urine Protein Trace (Negative) H 12/03/22 19:55 Urine Glucose (UA) Negative (Negative) 12/03/22 19:55 Urine Ketones Negative (Negative) 12/03/22 19:55 Urine Blood Negative (Negative) 12/03/22 19:55 Urine Nitrite Negative (Negative) 12/03/22 19:55 Urine Bilirubin Negative (Negative) 12/03/22 19:55 Urine Urobilinogen Negative (Negative) 12/03/22 19:55 Ur Leukocyte Esterase Negative (Negative) 12/03/22 19:55 Urine WBC (Auto) 1-5 /hpf (0-5) 12/03/22 19:55 Urine RBC (Auto) 0-4 /hpf (0-4) 12/03/22 19:55 U Hyaline Cast (Auto) 1-5 /lpf (0-5) 12/03/22 19:55 U Epithel Cells (Auto) 20-30 /lpf (0-5) H 12/03/22 19:55 Urine Bacteria (Auto) Negative (Negative) 12/03/22 19:55 Nasal Screen MRSA (PCR) Negative (Negative) 12/04/22 Unknown Adenovirus (PCR) Not Detected (NotDetected) 12/03/22 19:49 B. pertussis DNA (PCR) Not Detected (NotDetected) 12/03/22 19:49 B.parapertussis DNA PCR Not Detected (NotDetected) 12/03/22 19:49 C. pneumoniae DNA (PCR) Not Detected (NotDetected) 12/03/22 19:49 Coronavirus OC43 (PCR) Not Detected (NotDetected) 12/03/22 19:49 Coronavirus HKU1 (PCR) Not Detected (NotDetected) 12/03/22 19:49 Coronavirus 229E (PCR) Not Detected (NotDetected) 12/03/22 19:49 SARS-CoV-2 (PCR) Not Detected (NotDetected) 12/03/22 19:49 Coronavirus NL63 (PCR) Not Detected (NotDetected) 12/03/22 19:49 Human Metapneumovir PCR Not Detected (NotDetected) 12/03/22 19:49 Influenza Type A (PCR) Not Detected (NotDetected) 12/03/22 19:49 Influenza Type B (PCR) Not Detected (NotDetected) 12/03/22 19:49 M. pneumoniae (PCR) Not Detected (NotDetected) 12/03/22 19:49 Parainfluenza 1 (PCR) Not Detected (NotDetected) 12/03/22 19:49 Parainfluenza 2 (PCR) Not Detected (NotDetected) 12/03/22 19:49 Parainfluenza 3 (PCR) Not Detected (NotDetected) 12/03/22 19:49 Parainfluenza 4 (PCR) Not Detected (NotDetected) 12/03/22 19:49 RSV (PCR) Not Detected (NotDetected) 12/03/22 19:49 Entero/Rhino (PCR) Not Detected (NotDetected) 12/03/22 19:49 Impressions Chest CTA 12/03/22 18:33 Exam(s): CTA CHEST IV Amt: 112ml EXAM: CT Angiography Chest With Intravenous Contrast CLINICAL HISTORY: Reason for exam: PE. TECHNIQUE: Axial computed tomographic angiography images of the chest with intravenous contrast. CTDI is 16.01 mGy and DLP is 584.88 mGy-cm. Automated exposure control was utilized for the study. A dose lowering technique was utilized adhering to the principles of ALARA. MIP reconstructed images were created and reviewed. COMPARISON: September 06, 2022 FINDINGS: Pulmonary arteries: The pulmonary arterial tree is well opacified with contrast. No pulmonary emboli are identified. Aorta: The thoracic aorta is mildly calcified but nondilated. There is no aneurysm or dissection. Lungs: There is extensive bronchial wall thickening throughout the lungs consistent with bronchitis, similar to previous. There is diffuse tree-in-bud appearance throughout both lungs consistent with distal bronchial plugging. There are small areas of atelectasis in the right middle lobe and both costophrenic angles. No pneumothorax or pleural effusion is seen. No mass. Pleural space: See above. Heart: See below. Bones/joints: Mild degenerative changes throughout the spine. No acute fracture or bone lesion is seen. Previous sternotomy and aortic valvuloplasty per the heart is not enlarged. Mild coronary calcification is present. No dislocation. Soft tissues: Unremarkable. Lymph nodes: Unremarkable. No enlarged lymph nodes. Tubes, lines and devices: Endotracheal tube tip is at the level of the steven. Standard position would be pulled back 3-4 cm. There is a gastrostomy tube in the stomach. IMPRESSION: 1. Endotracheal tube tip is at the level of the steven. Standard position would be pulled back 3-4 cm. 2. There is extensive bronchial wall thickening throughout the lungs consistent with bronchitis, similar to previous. There is diffuse tree- in-bud appearance throughout both lungs consistent with distal bronchial plugging. There are small areas of atelectasis in the right middle lobe and both costophrenic angles. No pneumothorax or pleural effusion is seen. 3. The thoracic aorta is mildly calcified but nondilated. There is no aneurysm or dissection. 4. The pulmonary arterial tree is well opacified with contrast. No pulmonary emboli are identified. Electronically signed by: Gary Chacon MD 12/03/22 19:09 PM Chest X-Ray 12/04/22 05:00 XR chest 1V portable HISTORY: 77 years-old Male evaluate lines and ett and lung spaces acute respiratory failure COMPARISON: 12/03/2022 TECHNIQUE: AP view of the chest FINDINGS: Endotracheal tube overlies the midline, 3 cm superior to the steven. Distal tip of enteric tube projects over the gastric cardia. Extensive reticular nodular opacities with bronchial wall thickening redemonstrated. No pneumothorax or pleural effusion. Bones appear grossly intact. IMPRESSION: 1. Lines and tubes as above. 2. Extensive reticular nodular opacities redemonstrated compatible with a nonspecific infectious or inflammatory bronchiolitis/pneumonitis. ACT 112: Negative or not required by law. The above report was generated using voice recognition software. It may contain grammatical, syntax or spelling errors. Electronically signed by: Marcel Cloud M.D. 12/04/2022 7:40 AM ECG Additional Comments: ECG. Sinus tachycardia with rate of [address] abnormalities in inferior lateral leads
[2022-12-04] MEDS ORDERED: LACTATED RINGER'S 2,000 ML IV ONE (09:14)
--- NOTE | 2022-12-04 09:46 | Hospitalist Progress Note ---
Date of Service December 04, 2022 Assessment & Plan (1) Acute respiratory distress: Plan: 77-year-old male with past med significant for hyperlipidemia, hx of hypernatremia, recurrent aspiration pneumonia, COPD, vocal cord leukoplakia, dysphagia, history of severe epistaxis s/p sphenopalatine artery embolization, history of CAD, left bundle branch, hypertension, , severe protein energy malnutrition, sensorineural hearing loss, iron deficiency anemia, s/p PEG tube, s/p aortic valve replacement, s/p CABG, history of nasopharyngeal cancer s/p chemoradiation, recent history of COPD exacerbation secondary to Pseudomonas currently admitted to the ICU after ROSC achieved after cardiac arrest in the setting of acute respiratory distress and septic shock. Acute respiratory distress Acute on chronic respiratory failure with hypoxia and hypercapnia Acute COPD exacerbation Septic shock Recurrent aspiration pneumonia Postcardiac arrest Currently on pressors Levophed and vasopressin Antibiotics IV meropenem IV hydrocortisone Continue home midodrine DuoNebs Close monitoring in the ICU Appreciate critical care assistance Cardiac arrest with ROSC History of CABG and bioprosthetic aortic valve replacement Required CPR and vasopressors with return of ROSC on 12/03 Seen by interventional cardiology for EKG changes thought mostly from septic shock Follow echocardiogram- currently still pending. CTA chest- with no noted PE History of chronic aspiration History of nasopharyngeal cancer s/p chemoradiation s/p PEG tube Malnutrition Has PEG tube hold tube feeds at this time, currently NPO in the ICU History of severe epistaxis s/p sphenopalatine artery embolization Diet: NPO currently, has PEG tube DVT prophylaxis: Heparin subcu Disposition: Currently in ICU CODE STATUS: Currently Conditional Code, no cpr but yes to intubation and mech vent Admission and Anticipated Discharge Date Admission Date: December 03, 2022 Subjective Pt seen intubated in the ICU. Review of Systems Review of Systems: Unobtainable due to endotracheal tube Physical Exam Physical Exam: General: Intubated Psych: Could not be determined HEENT: NC/AT CV: RRR Resp: Ventilated Abdomen:Soft Extremities: No edema in lower extremities bilaterally. Results & Data Results & Data Vital Signs (Past 12 Hours) Vital Signs Temp Pulse Pulse Resp BP Pulse Ox O2 Del Method 12/04/22 08:27 88 30 H 93 Mechanical Vent 12/04/22 07:00 88 30 H 94 12/04/22 06:10 37.1 C 85 25 H 93 12/04/22 06:10 114/74 10/28/23 06:06 37.1 C 86 28 H 93 12/04/22 06:06 95/73 L 12/04/22 06:00 37.1 C 88 29 H 94 12/04/22 06:00 123/78 12/04/22 05:50 37.1 C 87 28 H 94 12/04/22 05:50 141/83 H 12/04/22 05:40 37.1 C 89 25 H 95 12/04/22 05:40 156/101 H 12/04/22 05:30 37.1 C 89 30 H 94 12/04/22 05:30 165/105 H 12/04/22 05:20 37.1 C 78 28 H 92 12/04/22 05:20 96/62 L 12/04/22 05:10 37.1 C 84 28 H 93 12/04/22 05:10 96/71 L 12/04/22 05:00 37.2 C 92 H 28 H 95 12/04/22 05:00 160/89 H 12/04/22 04:50 37.2 C 90 29 H 95 12/04/22 04:50 133/96 12/04/22 04:40 37.3 C 90 26 H 95 12/04/22 04:40 141/98 H 12/04/22 04:30 37.3 C 88 29 H 94 12/04/22 04:30 136/86 12/04/22 04:20 37.3 C 80 28 H 96 12/04/22 04:20 123/80 12/04/22 04:10 37.3 C 84 28 H 97 12/04/22 04:10 152/97 H 12/04/22 04:05 139/87 12/04/22 04:05 37.3 C 86 28 H 96 12/04/22 04:03 74/53 L 12/04/22 04:03 37.3 C 80 30 H 95 12/04/22 04:01 37.3 C 79 28 H 96 12/04/22 04:00 37.3 C 79 28 H 97 12/04/22 03:50 37.3 C 76 28 H 97 12/04/22 03:50 104/67 12/04/22 03:40 37.3 C 77 28 H 97 12/04/22 03:40 112/66 12/04/22 03:30 37.3 C 78 28 H 97 12/04/22 03:30 110/67 12/04/22 03:20 37.3 C 78 28 H 96 12/04/22 03:20 105/69 12/04/22 03:10 37.3 C 80 28 H 96 12/04/22 03:10 103/63 12/04/22 03:00 37.3 C 81 28 H 96 12/04/22 03:00 96/65 L 12/04/22 02:50 37.3 C 84 28 H 96 12/04/22 02:50 109/65 12/04/22 02:40 37.3 C 85 28 H 95 12/04/22 04:00 12/04/22 04:00 77 28 H 97 12/04/22 00:00 91 H 12/04/22 01:40 37.3 C 92 H 28 H 97 12/04/22 01:30 37.3 C 86 28 H 96 12/04/22 01:30 126/87 12/04/22 01:26 112/80 12/04/22 01:26 37.3 C 88 28 H 95 12/04/22 01:22 76/59 L 12/04/22 01:22 37.3 C 88 28 H 93 12/04/22 01:21 37.3 C 86 28 H 92 12/04/22 01:20 37.3 C 85 28 H 92 12/04/22 00:00 12/04/22 01:10 37.3 C 86 28 H 94 12/04/22 01:10 88/57 L 12/04/22 01:00 37.3 C 88 28 H 94 12/04/22 01:00 90/61 L 12/04/22 00:50 37.2 C 88 28 H 94 12/04/22 00:50 87/56 L 12/04/22 00:40 37.2 C 91 H 28 H 94 12/04/22 00:40 109/68 12/04/22 00:30 37.2 C 90 28 H 94 12/04/22 00:30 93/64 L 12/04/22 00:20 37.2 C 94 H 28 H 95 12/04/22 00:20 99/70 L 12/04/22 00:10 37.2 C 94 H 28 H 94 12/04/22 00:10 98/64 L 12/04/22 00:00 37.1 C 95 H 28 H 94 12/04/22 00:00 78/64 L 12/03/22 23:59 84/60 L 12/03/22 23:59 37.1 C 95 H 28 H 94 12/03/22 23:50 37.1 C 96 H 28 H 95 12/03/22 23:50 100/70 12/03/22 23:40 37.1 C 96 H 28 H 94 12/03/22 23:40 97/69 L 12/03/22 23:30 37.0 C 97 H 28 H 95 12/03/22 23:30 101/73 12/03/22 23:21 89/64 L 12/03/22 23:21 37.0 C 98 H 28 H 93 12/03/22 23:20 37.0 C 97 H 28 H 94 12/03/22 23:10 36.9 C 99 H 28 H 95 12/03/22 23:10 101/74 12/03/22 23:00 36.9 C 99 H 28 H 95 12/03/22 23:00 88/62 L 12/03/22 22:50 36.8 C 103 H 28 H 96 12/03/22 22:50 94/65 L 12/03/22 22:40 36.8 C 106 H 28 H 98 12/03/22 22:40 127/72 12/03/22 22:30 36.8 C 105 H 28 H 96 12/03/22 22:30 98/67 L 12/03/22 22:20 36.7 C 108 H 28 H 97 12/03/22 22:20 94/75 L 12/03/22 22:10 36.7 C 115 H 28 H 97 12/03/22 22:10 93/71 L 12/03/22 22:00 36.6 C 111 H 28 H 97 12/03/22 22:00 75/44 L 12/03/22 21:50 36.6 C 111 H 28 H 95 12/03/22 21:50 72/52 L 12/03/22 21:49 43/24 L 12/03/22 21:49 36.6 C 112 H 28 H 76 L 12/03/22 22:44 28 H 98 12/03/22 22:42 104 H 28 H 98 FiO2 12/04/22 08:27 40 12/04/22 07:00 40 12/04/22 06:10 12/04/22 06:10 12/04/22 06:06 12/04/22 06:06 12/04/22 06:00 12/04/22 06:00 12/04/22 05:50 12/04/22 05:50 12/04/22 05:40 12/04/22 05:40 12/04/22 05:30 12/04/22 05:30 12/04/22 05:20 12/04/22 05:20 12/04/22 05:10 12/04/22 05:10 12/04/22 05:00 12/04/22 05:00 12/04/22 04:50 12/04/22 04:50 12/04/22 04:40 12/04/22 04:40 12/04/22 04:30 12/04/22 04:30 12/04/22 04:20 12/04/22 04:20 12/04/22 04:10 12/04/22 04:10 12/04/22 04:05 12/04/22 04:05 12/04/22 04:03 12/04/22 04:03 12/04/22 04:01 12/04/22 04:00 12/04/22 03:50 12/04/22 03:50 12/04/22 03:40 12/04/22 03:40 12/04/22 03:30 12/04/22 03:30 12/04/22 03:20 12/04/22 03:20 12/04/22 03:10 12/04/22 03:10 12/04/22 03:00 12/04/22 03:00 12/04/22 02:50 12/04/22 02:50 12/04/22 02:40 12/04/22 04:00 40 12/04/22 04:00 40 12/04/22 00:00 12/04/22 01:40 12/04/22 01:30 12/04/22 01:30 12/04/22 01:26 12/04/22 01:26 12/04/22 01:22 12/04/22 01:22 12/04/22 01:21 12/04/22 01:20 12/04/22 00:00 50 12/04/22 01:10 12/04/22 01:10 12/04/22 01:00 12/04/22 01:00 12/04/22 00:50 12/04/22 00:50 12/04/22 00:40 12/04/22 00:40 12/04/22 00:30 12/04/22 00:30 12/04/22 00:20 12/04/22 00:20 12/04/22 00:10 12/04/22 00:10 12/04/22 00:00 12/04/22 00:00 12/03/22 23:59 12/03/22 23:59 12/03/22 23:50 12/03/22 23:50 12/03/22 23:40 12/03/22 23:40 12/03/22 23:30 12/03/22 23:30 12/03/22 23:21 12/03/22 23:21 12/03/22 23:20 12/03/22 23:10 12/03/22 23:10 12/03/22 23:00 12/03/22 23:00 12/03/22 22:50 12/03/22 22:50 12/03/22 22:40 12/03/22 22:40 12/03/22 22:30 12/03/22 22:30 12/03/22 22:20 12/03/22 22:20 12/03/22 22:10 12/03/22 22:10 12/03/22 22:00 12/03/22 22:00 12/03/22 21:50 12/03/22 21:50 12/03/22 21:49 12/03/22 21:49 12/03/22 22:44 50 12/03/22 22:42 50
--- NOTE | 2022-12-04 09:52 | CT Scan Report ---
CT head/brain wo con CLINICAL HISTORY: 77 years-old Male with anoxic injury. Acutely altered mental status TECHNIQUE: Multiple axial CT images of the head were obtained without contrast. A dose lowering tech nique was utilized adhering to the principles of ALARA. CT DOSE: 1824.66 mGy.cm COMPARISON: 11/09/2022 FINDINGS: Motion degraded exam. No acute intracranial hemorrhage, midline shift, intracranial mass, hydrocephal us, territorial ischemia or abnormal extra-axial collection. Involutional changes with chronic microv ascular ischemic disease. The calvarium is intact. Small right and large left mastoid effusions with left middle ear effusion redemonstrated. Moderate mucosal thickening of the paranasal sinuses with chronic postoperative hargrove es. Endotracheal tube is present with secretions within the airway. Prior bilateral lens repair. IMPRESSION: Motion degraded exam without acute intracranial abnormality identified. ACT 112: Negative or not required by law. The above report was generated using voice recognition software. It may contain grammatical, syntax o r spelling errors. Electronically signed by: Marcel Cloud M.D. 12/04/2022 9:50 AM
[2022-12-04] MEDS: HYDROCORTISONE SOD 50 MG in SYRINGE 0 ML IV SCH ×3 (09:54→20:08)
[2022-12-04] MEDS: ALBUMIN 25% 25 GM/100 ML VIAL IV SCH ×2 (09:57→10:36)
[2022-12-04] MEDS ORDERED: SODIUM BICARB 8.4% INJ 50 MEQ/50 ML SYR IV STA (10:09)
[2022-12-04] MEDS ORDERED: CALCIUM CHLORIDE 10% 1,000 MG in DEXTROSE 5% 50 ML IV STA (10:09)
[2022-12-04] MEDS: PANTOprazole 40 MG in SYRINGE 0 ML IV SCH (10:36)
[2022-12-04] MEDS: ICU Protocol for HYPERglycemia SCH ×4 (10:40→20:39)
[2022-12-04] MEDS ORDERED: Nursing to Pharmacy Communication SCH (10:45)
--- NOTE | 2022-12-04 14:09 | XCELERA ---
[id number] \\[email or web address]\[id number]
[2022-12-04 14:40] LABS: Albumin Globulin Ratio 1.4 (0.9-2); Albumin Level 3.5 gm/dl (3.4-5.0); Bilirubin,Total 0.9 mg/dl (0.2-1.0); Calcium 8.8 mg/dl (8.6-10.3); Creatinine Clr Calc Pharmacy 72.3 ml/min; Est GFR (African American) 107.3 ml/min; Est GFR (Non-African American) 92.6 ml/min; Globulin 2.5 gm/dl (2.5-4.0); Magnesium 1.7 mg/dl (1.7-2.4); Potassium 3.4 mmol/L (3.5-5.1)
[2022-12-04] MEDS: MAGNESIUM SULFATE / D5W 1 GM/100 ML BAG IV SCH ×4 (14:55→20:09)
[2022-12-04] MEDS: POTASSIUM CHLORIDE / WTR 20 MEQ/100 ML PLCT IV SCH ×4 (15:29→20:38)
[2022-12-05] MEDS: ALBUT/IPRATROP 3MG/0.5MG NEB 3 ML VIAL INH PRN ×2 (02:24→22:11)
[2022-12-05] MEDS: HYDROCORTISONE SOD 50 MG in SYRINGE 0 ML IV SCH ×4 (02:34→19:56)
[2022-12-05] MEDS: MEROPENEM 500 MG in SYRINGE 0 ML IV SCH ×4 (02:36→19:56)
[2022-12-05] MEDS: VASOPRESSIN 20 UNITS in 0.9 % SODIUM CHLORIDE 100 ML IV SCH ×2 (04:57→08:15)
[2022-12-05 05:20] LABS: BUN Creatinine Ratio 39.3 (10-20); Calcium 7.9 mg/dl (8.6-10.3); Creatinine Clr Calc Pharmacy 78.2 ml/min; Est GFR (African American) 110.9 ml/min; Est GFR (Non-African American) 95.7 ml/min; Magnesium 2.4 mg/dl (1.7-2.4); Potassium 4.2 mmol/L (3.5-5.1)
[2022-12-05 05:30] LABS: Basophils # (auto) 0.02 K/uL (0.00-0.20); Basophils % (auto) 0.2 %; Dohle Bodies 1+; Hematocrit (blood only) 30.1 % (42.0-52.0); Hemoglobin 9.9 g/dl (14.0-18.0); Immature Granulocytes # (auto) 0.21 K/uL (0.01-0.20); Immature Granulocytes % (auto) 2.2 %; Lymphocytes # (auto) 0.18 K/uL (1.20-3.40); Lymphocytes % (auto) 1.9 %; Mean Corpuscular Hemoglobin 31.4 pg (25.0-34.0); Mean Corpuscular Hgb Conc 32.9 g/dL (32.0-36.0); Mean Corpuscular Volume 95.6 fL (80.0-100.0); Mean Platelet Volume 12.2 fL (9.4-12.4); Monocytes # (auto) 0.84 K/uL (0.11-0.59); Monocytes % (auto) 8.7 %; Neutrophils # (auto) 8.44 K/uL (1.40-6.50); Platelet Count 74 K/uL (130-400); Platelet Estimate Decreased (Normal); RDW Coefficient of Variation 15.5 % (11.5-14.5); RDW Standard Deviation 54.1 fL (36.4-46.3); Red Blood Count 3.15 M/uL (4.70-6.10); Toxic Vacuolation 1+; White Blood Count 9.69 K/ul (4.8-10.8)
[2022-12-05 05:48] LABS: iSTAT Art Bld Gas pCO2 Correct 43 mmHg (35-46); iSTAT Art Bld Gas pH Corrected 7.406 (7.35-7.45); iSTAT Arterial Blood Gas HCO3 27 meg/L (19-24); iSTAT Arterial Blood Gas pCO2 44 mmHg (35-46); iSTAT Arterial Blood Gas pO2 69 mmHg (80-95); iSTAT Arterial Blood Gas pO2 C 68; iSTAT Carbon Dioxide 29 mmol/L (24-31); iSTAT Hematocrit 29 % (42-52); iSTAT Hemoglobin 9.9 g/dl (14.0-18.0); iSTAT Potassium 4.1 mmol/L (3.3-5.0); iSTAT Site Art Line; iSTAT Sodium 133 mmol/L (135-144)
[2022-12-05] MEDS: ICU ELECTROLYTE REPLACEMENT PROTOCOL SCH ×2 (06:51→16:33)
[2022-12-05] MEDS: FORMOTEROL 20 MCG/2 ML VIAL NEB SCH ×2 (07:39→19:28)
[2022-12-05] MEDS: BUDESONIDE 0.25 MG/2 ML VIAL (PULMICORT) NEB SCH ×2 (07:40→19:28)
--- NOTE | 2022-12-05 07:43 | XRay Report ---
XR chest 1V portable HISTORY: 77 years-old Male resp failure COMPARISON: 12/04/2022 TECHNIQUE: AP view of the chest FINDINGS: Endotracheal tube overlies the midline, 3 cm superior to the steven. The enteric tube has been remove d. Extensive reticular nodular opacities with bronchial wall thickening redemonstrated. No pneumothor ax or pleural effusion. Bones appear grossly intact. IMPRESSION: 1. Endotracheal tube positioning as above. Interval removal of the enteric tube. 2. Extensive reticular nodular opacities redemonstrated compatible with a nonspecific infectious or i nflammatory bronchiolitis/pneumonitis. ACT 112: Negative or not required by law. The above report was generated using voice recognition software. It may contain grammatical, syntax o r spelling errors. Electronically signed by: Marcel Cloud M.D. 12/05/2022 7:42 AM
[2022-12-05] MEDS: Double Conc; 16mg in 500mL IV SCH (08:04)
[2022-12-05] MEDS: ICU Protocol for HYPERglycemia SCH ×2 (08:15→10:56)
[2022-12-05] MEDS: MIDODRINE HCL 2.5 MG TAB PO SCH ×3 (08:31→16:46)
[2022-12-05] MEDS: PLASMA-LYTE A 1,000 ML IV SCH ×2 (08:32→16:46)
[2022-12-05] MEDS ORDERED: PROPOFOL BOLUS FROM BAG IV PRN (08:59)
[2022-12-05] MEDS ORDERED: STAT IV Infusion **Titration per Protocol STA (08:59)
--- NOTE | 2022-12-05 09:01 | Critical Care Progress Note ---
Date of Service December 05, 2022 Assessment & Plan (1) Acute on chronic respiratory failure with hypoxia and hypercapnia: (2) Cardiac arrest: (3) Acute exacerbation of chronic obstructive pulmonary disease: (4) Septic shock: (5) Recurrent aspiration pneumonia: (6) CAD (coronary artery disease): Plan Reason Critically Ill: 77 YOM admitted to [facility] for progressive hypercarbic/hypoxic respiratory resulting in short course of cardiac arrest which appears to have been PEA and intubation with mechanical ventilation. Currently in shock likely septic from aspiration pneumonia requiring high dose vasopressors to maintain MAP. The patient has a history of chronic aspiration and resistant Pseudomonas colonization with bronchiectasis. 24-hour events: Patient remains intubated in the ICU on norepinephrine and vasopressin. Overnight we have been able to slightly wean down his norepinephrine. He remains minimally responsive on a very low-dose of fentanyl. He completed his CT of the head. He did undergo fluid responsiveness assessments yesterday and was found to be fluid responsive and received an additional 2 L of crystalloid Recommendations: Neuro -status postarrest. At risk for anoxic encephalopathy as well as metabolic encephalopathy. CT of the head demonstrated significant motion artifact but no obvious acute abnormality. We will transition with sedation off of fentanyl to propofol and try and obtain MRI with and without contrast today to better evaluate for potential anoxic injury. Prognosis remains guarded. Cardiac -profound shock state. He was evaluated as a cardiac alert in the em ergency room. Echocardiogram from yesterday showed an EF of 55-60 with grade 1 diastolic dysfunction. No wall motion abnormalities identified. Right ventricle showed normal size and function. IVC demonstrates moderate dilatation on echo yesterday so I think he is adequately volume repleted. Empirically treating for relative adrenal insufficiency with hydrocortisone. Continue norepinephrine and vasopressin slight decrease today. Lactate remains persistently elevated. Unclear if this is a clearance issue. We will recheck this morning. Respiratory -acute on chronic hypoxemic and hypercarbic respiratory failure. The patient has fairly severe bronchiectasis with underlying Pseudomonas infection. Currently covering with meropenem. See comments regarding ID below. We will continue ventilator strategy for now. Continue pulmonary toilet. Hemodynamics preclude trial SBT/extubation at this point in time. His blood gas demonstrates an acute respiratory acidosis. Will adjust ventilator accordingly. GI -history of chronic aspiration with laryngeal cancer. PEG tube in place. He is hemodynamics preclude tube feeding at this point in time. We will continue to follow clinically. Stress ulcer prophylaxis will be initiated. Patient does appear malnourished and if his hemodynamics improve, nutritional assessment will be obtained. RENAL/LYTES -mild hyponatremia this morning. Otherwise electrolytes are within normal limits with exception of mild hypocalcemia which will be corrected. - Sanchez to gravity- continue while intubated and sedated for accurate assessment of urinary output ENDO - glycemic control per protocol. Initiating stress dose steroids. HEME -history of chronic anemia. Continue to follow at this point in time. No evidence of acute blood loss. Thrombocytopenia with the 50% decrease in platelet counts over the last 24 hours. Hold heparin and check PF4 antibody ID -Pseudomonas bronchiectasis. Currently day #3 meropenem. Cultures negative to date. LINES/IV ACCESS - CVL, Arterial line, ETT, OGT, Sanchez Catheter Continue use of these lines DVT PROPHYLAXIS - SCDS, holding heparin given thrombocytopenia CODE STATUS: Limited DISPO: ICU while on vasopressor agents and requiring mechanical ventilation support Patient is critically ill with multiple life-threatening issues at this point in time. He is on life support. There is significant possibility of clinical deterioration and/or . A total of 55 minutes was spent in evaluation management stabilization of this patient including discussion on multidisciplinary rounds and with bedside clinical care nurse Admission and Anticipated Discharge Date Admission Date: December 03, 2022 Subjective Patient remains intubated and sedated on high-dose pressor Review of Systems Review of Systems: Unobtainable due to endotracheal tube Physical Exam Constitutional: + ill appearing, + cachectic and + mechanically ventilated Neck: trachea midline, no thyromegaly Respiratory: no labored breathing and not tachypneic Auscultation: + rhonchi Cardiovascular: RRR, no murmur, no edema Gastrointestinal (Abdomen): normal bowel sounds, soft, nontender, no hepato splenomegaly Musculoskeletal: Extremities: extremities normal to inspection Skin: no rashes, warm and dry Lymphatic: no cervical lymphadenopathy Results & Data Results & Data Vital Signs (Past 12 Hours) Vital Signs Temp Pulse Pulse Resp BP Pulse Ox O2 Del Method 12/05/22 08:00 36.7 C 78 28 H 95 12/05/22 08:00 147/79 H 12/05/22 07:01 36.7 C 76 28 H 96 12/05/22 07:01 150/81 H 12/05/22 07:00 36.7 C 75 28 H 96 12/05/22 07:40 75 28 H 97 12/05/22 04:00 12/05/22 06:30 36.7 C 76 25 H 94 12/05/22 06:20 36.7 C 78 24 94 12/05/22 06:10 36.7 C 75 28 H 93 12/05/22 06:00 36.7 C 74 30 H 95 12/05/22 06:00 132/77 12/05/22 05:50 36.8 C 74 28 H 96 12/05/22 05:47 130/67 12/05/22 05:47 36.8 C 75 28 H 94 12/05/22 05:40 36.8 C 75 28 H 94 12/05/22 05:30 36.8 C 77 28 H 95 12/05/22 05:20 36.9 C 80 28 H 97 12/05/22 05:15 141/67 H 12/05/22 05:15 36.9 C 82 28 H 98 12/05/22 05:10 36.9 C 87 28 H 99 12/05/22 05:10 161/75 H 12/05/22 05:00 36.9 C 78 19 94 12/05/22 04:50 36.9 C 76 28 H 96 12/05/22 04:40 36.9 C 77 28 H 96 12/05/22 04:30 36.9 C 79 28 H 95 12/05/22 04:20 36.9 C 80 28 H 95 12/05/22 04:10 36.9 C 80 28 H 95 12/05/22 04:00 36.9 C 81 28 H 95 12/05/22 04:00 128/86 12/05/22 03:50 36.9 C 81 28 H 94 12/05/22 03:40 36.9 C 82 28 H 94 12/05/22 03:30 36.8 C 85 30 H 94 12/05/22 03:20 36.8 C 84 30 H 94 12/05/22 00:00 77 12/05/22 03:10 36.8 C 86 28 H 94 12/05/22 03:00 36.9 C 86 29 H 93 12/05/22 03:00 121/81 12/05/22 02:50 36.9 C 86 28 H 94 12/05/22 02:40 36.9 C 83 29 H 93 12/05/22 02:30 36.9 C 81 31 H 94 12/05/22 02:20 36.9 C 77 28 H 93 12/05/22 02:10 37.0 C 79 28 H 93 12/05/22 02:00 37.0 C 81 28 H 94 12/05/22 02:00 139/92 12/05/22 01:50 37.0 C 83 32 H 94 12/05/22 01:40 37.0 C 84 33 H 95 12/05/22 01:30 37.0 C 85 34 H 95 12/05/22 01:20 37.0 C 83 32 H 95 12/05/22 01:10 37.0 C 84 31 H 95 12/05/22 01:00 37.0 C 82 30 H 95 12/05/22 01:00 144/96 H 12/05/22 00:50 36.9 C 81 29 H 96 12/05/22 00:40 36.9 C 80 31 H 96 12/05/22 00:30 36.9 C 77 28 H 96 12/05/22 00:20 36.9 C 77 28 H 96 12/05/22 00:10 36.9 C 76 30 H 95 12/05/22 00:00 36.9 C 71 28 H 95 12/05/22 00:00 145/80 H 12/04/22 23:50 36.9 C 71 28 H 95 12/04/22 23:40 36.9 C 71 30 H 95 12/04/22 23:30 36.9 C 70 28 H 95 12/04/22 23:20 36.9 C 69 28 H 95 12/04/22 23:10 36.9 C 69 30 H 95 12/04/22 23:01 138/75 12/04/22 23:01 36.9 C 70 24 95 12/04/22 23:00 36.9 C 70 28 H 95 12/04/22 22:50 36.9 C 71 28 H 95 12/04/22 22:40 37.0 C 71 24 95 12/05/22 00:00 12/05/22 02:25 80 29 H 94 Mechanical Vent 12/05/22 02:25 80 29 H 94 12/04/22 22:30 37.0 C 70 28 H 95 12/04/22 22:20 37.1 C 69 28 H 95 12/04/22 22:10 37.1 C 67 24 95 12/04/22 22:00 37.2 C 61 28 H 92 12/04/22 22:00 103/64 12/04/22 21:50 37.2 C 63 28 H 93 12/04/22 21:40 37.2 C 70 24 93 12/04/22 21:30 37.2 C 63 28 H 95 12/04/22 21:20 37.2 C 63 28 H 94 12/04/22 21:10 37.2 C 63 25 H 94 12/04/22 21:00 37.2 C 63 28 H 94 12/04/22 21:00 121/69 12/04/22 22:00 61 28 H 92 Mechanical Vent 12/04/22 22:00 61 28 H 92 FiO2 12/05/22 08:00 12/05/22 08:00 12/05/22 07:01 12/05/22 07:01 12/05/22 07:00 12/05/22 07:40 40 12/05/22 04:00 40 12/05/22 06:30 12/05/22 06:20 12/05/22 06:10 12/05/22 06:00 12/05/22 06:00 12/05/22 05:50 12/05/22 05:47 12/05/22 05:47 12/05/22 05:40 12/05/22 05:30 12/05/22 05:20 12/05/22 05:15 12/05/22 05:15 12/05/22 05:10 12/05/22 05:10 12/05/22 05:00 12/05/22 04:50 12/05/22 04:40 12/05/22 04:30 12/05/22 04:20 12/05/22 04:10 12/05/22 04:00 12/05/22 04:00 12/05/22 03:50 12/05/22 03:40 12/05/22 03:30 12/05/22 03:20 12/05/22 00:00 12/05/22 03:10 12/05/22 03:00 12/05/22 03:00 12/05/22 02:50 12/05/22 02:40 12/05/22 02:30 12/05/22 02:20 12/05/22 02:10 12/05/22 02:00 12/05/22 02:00 12/05/22 01:50 12/05/22 01:40 12/05/22 01:30 12/05/22 01:20 12/05/22 01:10 12/05/22 01:00 12/05/22 01:00 12/05/22 00:50 12/05/22 00:40 12/05/22 00:30 12/05/22 00:20 12/05/22 00:10 12/05/22 00:00 12/05/22 00:00 12/04/22 23:50 12/04/22 23:40 12/04/22 23:30 12/04/22 23:20 12/04/22 23:10 12/04/22 23:01 12/04/22 23:01 12/04/22 23:00 12/04/22 22:50 12/04/22 22:40 12/05/22 00:00 40 12/05/22 02:25 40 12/05/22 02:25 40 12/04/22 22:30 12/04/22 22:20 12/04/22 22:10 12/04/22 22:00 12/04/22 22:00 12/04/22 21:50 12/04/22 21:40 12/04/22 21:30 12/04/22 21:20 12/04/22 21:10 12/04/22 21:00 12/04/22 21:00 12/04/22 22:00 40 12/04/22 22:00 40 Coding Level of Care Code 47047 CRITICAL CARE 1ST 30-74M Diagnoses Acute on chronic respiratory failure with hypoxia and hypercapnia J96.21; J96.22 Cardiac arrest I46.9 Acute exacerbation of chronic obstructive pulmonary disease J44.1 Septic shock A41.9; R65.21 Recurrent aspiration pneumonia J69.0 CAD (coronary artery disease) I25.10
[2022-12-05] MEDS: HEPARIN SOD 5,000 UNIT/0.5 ML VIAL SQ SCH (09:17)
[2022-12-05] MEDS ORDERED: CALCIUM CHLORIDE 10% 1,000 MG in DEXTROSE 5% 50 ML IV ONE (09:30)
[2022-12-05] MEDS: propofoL 1,000 MG/100 ML VIAL IV SCH (09:40)
[2022-12-05] MEDS: PANTOprazole 40 MG in SYRINGE 0 ML IV SCH (09:40)
--- NOTE | 2022-12-05 10:22 | Hospitalist Progress Note ---
Date of Service December 05, 2022 Assessment & Plan (1) Acute respiratory distress: Plan: 77-year-old male with past med significant for hyperlipidemia, hx of hypernatremia, recurrent aspiration pneumonia, COPD, vocal cord leukoplakia, dysphagia, history of severe epistaxis s/p sphenopalatine artery embolization, history of CAD, left bundle branch, hypertension, , severe protein energy malnutrition, sensorineural hearing loss, iron deficiency anemia, s/p PEG tube, s/p aortic valve replacement, s/p CABG, history of nasopharyngeal cancer s/p chemoradiation, recent history of COPD exacerbation secondary to Pseudomonas currently admitted to the ICU after ROSC achieved after cardiac arrest in the setting of acute respiratory distress and septic shock. Acute respiratory distress Acute on chronic respiratory failure with hypoxia and hypercapnia Acute COPD exacerbation Septic shock Recurrent aspiration pneumonia Postcardiac arrest Currently on pressors Levophed and vasopressin Antibiotics IV meropenem IV hydrocortisone Continue home midodrine DuoNebs Close monitoring in the ICU Appreciate critical care assistance Cardiac arrest with ROSC History of CABG and bioprosthetic aortic valve replacement Required CPR and vasopressors with return of ROSC on 12/03 Seen by interventional cardiology for EKG changes thought mostly from septic shock Follow echocardiogram- showed LVH, grade 1 diastolic dysfunction, moderately dilated IVC, no wall motion abnormalities CTA chest- with no noted PE History of chronic aspiration History of nasopharyngeal cancer s/p chemoradiation s/p PEG tube Malnutrition Has PEG tube hold tube feeds at this time, currently NPO in the ICU History of severe epistaxis s/p sphenopalatine artery embolization Diet: NPO currently, has PEG tube DVT prophylaxis: Heparin subcu Disposition: Currently in ICU CODE STATUS: Currently Conditional Code, no cpr but yes [facility] Admission and Anticipated Discharge Date Admission Date: December 03, 2022 Subjective Pt remains intubated and sedated. Son and friend at bedside. Review of Systems Review of Systems: Unobtainable due to endotracheal tube Physical Exam Physical Exam: General: Intubated and sedated Psych: Could not be determined HEENT: NC/AT CV: RRR Resp: Ventilated Abdomen:Soft Extremities: No edema in lower extremities bilaterally. Results & Data Results & Data Vital Signs (Past 12 Hours) Vital Signs Temp Pulse Pulse Resp BP Pulse Ox O2 Del Method 12/05/22 09:01 123/74 12/05/22 09:01 36.7 C 79 28 H 93 12/05/22 09:00 36.7 C 78 28 H 93 12/05/22 08:00 36.7 C 78 28 H 95 12/05/22 08:00 147/79 H 12/05/22 07:01 36.7 C 76 28 H 96 12/05/22 07:01 150/81 H 12/05/22 07:00 36.7 C 75 28 H 96 12/05/22 07:40 75 28 H 97 12/05/22 04:00 12/05/22 06:30 36.7 C 76 25 H 94 12/05/22 06:20 36.7 C 78 24 94 12/05/22 06:10 36.7 C 75 28 H 93 12/05/22 06:00 36.7 C 74 30 H 95 12/05/22 06:00 132/77 12/05/22 05:50 36.8 C 74 28 H 96 12/05/22 05:47 130/67 12/05/22 05:47 36.8 C 75 28 H 94 12/05/22 05:40 36.8 C 75 28 H 94 12/05/22 05:30 36.8 C 77 28 H 95 12/05/22 05:20 36.9 C 80 28 H 97 12/05/22 05:15 141/67 H 12/05/22 05:15 36.9 C 82 28 H 98 12/05/22 05:10 36.9 C 87 28 H 99 12/05/22 05:10 161/75 H 12/05/22 05:00 36.9 C 78 19 94 12/05/22 04:50 36.9 C 76 28 H 96 12/05/22 04:40 36.9 C 77 28 H 96 12/05/22 04:30 36.9 C 79 28 H 95 12/05/22 04:20 36.9 C 80 28 H 95 12/05/22 04:10 36.9 C 80 28 H 95 12/05/22 04:00 36.9 C 81 28 H 95 12/05/22 04:00 128/86 12/05/22 03:50 36.9 C 81 28 H 94 12/05/22 03:40 36.9 C 82 28 H 94 12/05/22 03:30 36.8 C 85 30 H 94 12/05/22 03:20 36.8 C 84 30 H 94 12/05/22 00:00 77 12/05/22 03:10 36.8 C 86 28 H 94 12/05/22 03:00 36.9 C 86 29 H 93 12/05/22 03:00 121/81 12/05/22 02:50 36.9 C 86 28 H 94 12/05/22 02:40 36.9 C 83 29 H 93 12/05/22 02:30 36.9 C 81 31 H 94 12/05/22 02:20 36.9 C 77 28 H 93 12/05/22 02:10 37.0 C 79 28 H 93 12/05/22 02:00 37.0 C 81 28 H 94 12/05/22 02:00 139/92 12/05/22 01:50 37.0 C 83 32 H 94 12/05/22 01:40 37.0 C 84 33 H 95 12/05/22 01:30 37.0 C 85 34 H 95 12/05/22 01:20 37.0 C 83 32 H 95 12/05/22 01:10 37.0 C 84 31 H 95 12/05/22 01:00 37.0 C 82 30 H 95 12/05/22 01:00 144/96 H 12/05/22 00:50 36.9 C 81 29 H 96 12/05/22 00:40 36.9 C 80 31 H 96 12/05/22 00:30 36.9 C 77 28 H 96 12/05/22 00:20 36.9 C 77 28 H 96 12/05/22 00:10 36.9 C 76 30 H 95 12/05/22 00:00 36.9 C 71 28 H 95 12/05/22 00:00 145/80 H 12/04/22 23:50 36.9 C 71 28 H 95 12/04/22 23:40 36.9 C 71 30 H 95 12/04/22 23:30 36.9 C 70 28 H 95 12/04/22 23:20 36.9 C 69 28 H 95 12/04/22 23:10 36.9 C 69 30 H 95 12/04/22 23:01 138/75 12/04/22 23:01 36.9 C 70 24 95 12/04/22 23:00 36.9 C 70 28 H 95 12/04/22 22:50 36.9 C 71 28 H 95 12/04/22 22:40 37.0 C 71 24 95 12/05/22 00:00 12/05/22 02:25 80 29 H 94 Mechanical Vent 12/05/22 02:25 80 29 H 94 12/04/22 22:30 37.0 C 70 28 H 95 FiO2 12/05/22 09:01 12/05/22 09:01 12/05/22 09:00 12/05/22 08:00 12/05/22 08:00 12/05/22 07:01 12/05/22 07:01 12/05/22 07:00 12/05/22 07:40 40 12/05/22 04:00 40 12/05/22 06:30 12/05/22 06:20 12/05/22 06:10 12/05/22 06:00 12/05/22 06:00 12/05/22 05:50 12/05/22 05:47 12/05/22 05:47 12/05/22 05:40 12/05/22 05:30 12/05/22 05:20 12/05/22 05:15 12/05/22 05:15 12/05/22 05:10 12/05/22 05:10 12/05/22 05:00 12/05/22 04:50 12/05/22 04:40 12/05/22 04:30 12/05/22 04:20 12/05/22 04:10 12/05/22 04:00 12/05/22 04:00 12/05/22 03:50 12/05/22 03:40 12/05/22 03:30 12/05/22 03:20 12/05/22 00:00 12/05/22 03:10 12/05/22 03:00 12/05/22 03:00 12/05/22 02:50 12/05/22 02:40 12/05/22 02:30 12/05/22 02:20 12/05/22 02:10 12/05/22 02:00 12/05/22 02:00 12/05/22 01:50 12/05/22 01:40 12/05/22 01:30 12/05/22 01:20 12/05/22 01:10 12/05/22 01:00 12/05/22 01:00 12/05/22 00:50 12/05/22 00:40 12/05/22 00:30 12/05/22 00:20 12/05/22 00:10 12/05/22 00:00 12/05/22 00:00 12/04/22 23:50 12/04/22 23:40 12/04/22 23:30 12/04/22 23:20 12/04/22 23:10 12/04/22 23:01 12/04/22 23:01 12/04/22 23:00 12/04/22 22:50 12/04/22 22:40 12/05/22 00:00 40 12/05/22 02:25 40 12/05/22 02:25 40 12/04/22 22:30
[2022-12-05] MEDS ORDERED: GADOBUTROL 30ML VIAL IV ONE (12:35)
--- NOTE | 2022-12-05 13:16 | Magnetic Resonance Report ---
MR brain wo/w con HISTORY: 77 years-old Male anoxic brain injury acute altered mental status COMPARISON: Head CT 12/04/2022 TECHNIQUE: Multiplanar multisequence MRI of the brain was obtained with and without use of IV contras t FINDINGS: No restricted diffusion. Midline structures appear unremarkable. The study is motion degraded. Degene rative changes of the cervical spine. No acute intracranial hemorrhage, midline shift, abnormal extra ction collection, hydrocephalus or intra-axial mass. Mild involutional changes with mild T2/FLAIR hyp erintense foci throughout the white matter, likely chronic microvascular ischemic disease. Motion deg raded exam. No pathologic blooming artifact. No abnormal enhancement. Cerebral venous sinuses and major arterial flow voids appear patent. Endotracheal tube. Prior bilater al lens repair. Postoperative changes of the paranasal sinuses with mucosal thickening. Moderate mast oid effusions. IMPRESSION: 1. Motion degraded exam. 2. No acute intracranial abnormality or abnormal enhancement. 3. Involutional changes with mild chronic microvascular ischemic disease. ACT 112: Negative or not required by law. The above report was generated using voice recognition software. It may contain grammatical, syntax o r spelling errors. Electronically signed by: Marcel Cloud M.D. 12/05/2022 1:14 PM
[2022-12-06] MEDS: PLASMA-LYTE A 1,000 ML IV SCH ×3 (01:59→16:12)
[2022-12-06] MEDS: HYDROCORTISONE SOD 50 MG in SYRINGE 0 ML IV SCH ×4 (01:59→19:20)
[2022-12-06] MEDS: MEROPENEM 500 MG in SYRINGE 0 ML IV SCH ×2 (02:00→07:19)
[2022-12-06] MEDS ORDERED: PLASMA-LYTE A 500 ML IV ONE (02:19)
[2022-12-06] MEDS: VASOPRESSIN 20 UNITS in 0.9 % SODIUM CHLORIDE 100 ML IV SCH ×3 (02:51→07:14)
[2022-12-06 04:58] LABS: Hematocrit (blood only) 28.6 % (42.0-52.0); Hemoglobin 9.6 g/dl (14.0-18.0); Mean Corpuscular Hgb Conc 33.6 g/dL (32.0-36.0); Mean Corpuscular Volume 92.3 fL (80.0-100.0); Mean Platelet Volume 11.9 fL (9.4-12.4); Platelet Count 80 K/uL (130-400); RDW Coefficient of Variation 15.3 % (11.5-14.5); RDW Standard Deviation 51.9 fL (36.4-46.3); White Blood Count 8.82 K/ul (4.8-10.8)
[2022-12-06 05:14] LABS: BUN Creatinine Ratio 41.8 (10-20); Calcium 8.3 mg/dl (8.6-10.3); Creatinine Clr Calc Pharmacy 93.2 ml/min; Est GFR (African American) 115.7 ml/min; Est GFR (Non-African American) 99.8 ml/min; Magnesium 2.1 mg/dl (1.7-2.4); Phosphorus 2.7 mg/dl (2.5-4.9); Potassium 3.6 mmol/L (3.5-5.1)
[2022-12-06 05:20] LABS: Basophils # (auto) 0.02 K/uL (0.00-0.20); Basophils % (auto) 0.2 %; Dohle Bodies 1+; Immature Granulocytes # (auto) 0.04 K/uL (0.01-0.20); Immature Granulocytes % (auto) 0.5 %; Lymphocytes # (auto) 0.18 K/uL (1.20-3.40); Monocytes # (auto) 0.55 K/uL (0.11-0.59); Monocytes % (auto) 6.2 %; Neutrophils # (auto) 8.03 K/uL (1.40-6.50); Neutrophils % (auto) 91.1 %; Toxic Vacuolation 1+
[2022-12-06] MEDS: propofoL 1,000 MG/100 ML VIAL IV SCH (06:02)
[2022-12-06] MEDS: ICU ELECTROLYTE REPLACEMENT PROTOCOL SCH ×2 (06:11→11:27)
[2022-12-06] MEDS: POTASSIUM CHLORIDE / WTR 20 MEQ/100 ML PLCT IV SCH ×2 (06:46→08:29)
[2022-12-06] MEDS: BUDESONIDE 0.25 MG/2 ML VIAL (PULMICORT) NEB SCH ×2 (07:15→20:22)
[2022-12-06] MEDS: FORMOTEROL 20 MCG/2 ML VIAL NEB SCH ×2 (07:15→20:22)
[2022-12-06] MEDS: MIDODRINE HCL 2.5 MG TAB PO SCH ×3 (07:19→16:13)
[2022-12-06 07:30] LABS: iSTAT Art Bld Gas pCO2 Correct 45 mmHg (35-46); iSTAT Art Bld Gas pH Corrected 7.415 (7.35-7.45); iSTAT Arterial Blood Gas HCO3 29 meg/L (19-24); iSTAT Arterial Blood Gas pCO2 45 mmHg (35-46); iSTAT Arterial Blood Gas pH 7.42 (7.35-7.45); iSTAT Arterial Blood Gas pO2 64 mmHg (80-95); iSTAT Arterial Blood Gas pO2 C 64; iSTAT Carbon Dioxide 31 mmol/L (24-31); iSTAT Hematocrit 26 % (42-52); iSTAT Hemoglobin 8.8 g/dl (14.0-18.0); iSTAT Potassium 3.6 mmol/L (3.3-5.0); iSTAT Site Art Line; iSTAT Sodium 137 mmol/L (135-144)
--- NOTE | 2022-12-06 07:43 | XRay Report ---
XR chest 1V portable HISTORY: resp failure COMPARISON: Chest 12/05/2022. FINDINGS: Endotracheal tube terminates 3 cm from the steven. No pneumothorax. There is a calcified gr anuloma within the right lower lobe, unchanged. There are poststernotomy changes. The heart remains e nlarged. There is mild diffuse interstitial thickening and trace bilateral pleural effusions. This is similar to the prior study. IMPRESSION: 1. Satisfactory support line placement. 2. No change in the diffuse interstitial thickening and trace pleural effusions. ACT 112: Negative or not required by law. Electronically signed by: Ritesh Quevedo M.D. 12/06/2022 7:42 AM
--- NOTE | 2022-12-06 08:47 | Critical Care Progress Note ---
Date of Service December 06, 2022 Assessment & Plan (1) Acute on chronic respiratory failure with hypoxia and hypercapnia: (2) Cardiac arrest: (3) Acute exacerbation of chronic obstructive pulmonary disease: (4) Septic shock: (5) Recurrent aspiration pneumonia: (6) CAD (coronary artery disease): Plan Reason Critically Ill: 77 YOM admitted to [facility] for progressive hypercarbic/hypoxic respiratory resulting in short course of cardiac arrest which appears to have been PEA and intubation with mechanical ventilation. Currently in shock likely septic from aspiration pneumonia requiring high dose vasopressors to maintain MAP. The patient has a history of chronic aspiration and resistant Pseudomonas colonization with bronchiectasis. Recommendations: Neuro -status postarrest. At risk for anoxic encephalopathy as well as metabolic encephalopathy. Clinically consistent with deep encephalopathy, ordered EEG today. Prognosis remains guarded. Cardiac -profound shock state: Resolved. Status post presumptive respiratory arrest leading to cardiac arrest. Echocardiogram showed an EF of 55-60 with grade 1 diastolic dysfunction. No wall motion abnormalities identified. Right ventricle showed normal size and function. IVC demonstrates moderate dilatation off all vasoactive medication Respiratory -acute on chronic hypoxemic and hypercarbic respiratory failure. The patient has fairly severe bronchiectasis with underlying Pseudomonas infection. Minimal vent settings, awaiting improvement in mental status to consider extubation GI -history of chronic aspiration with laryngeal cancer. PEG tube in place. Off vasoactive's can initiate tube feeding and proceed to goal RENAL/LYTES -mild hyponatremia: Resolved. - Sanchez to gravity- continue while intubated and sedated for accurate assessment of urinary output ENDO - glycemic control per protocol. Continue stress dose steroids for additional 24 hours. HEME -history of chronic anemia. Continue to follow at this point in time. No evidence of acute blood loss. Thrombocytopenia with the 50% decrease in platelet counts over the last 24 hours. Hold heparin and check PF4 antibody ID -Pseudomonas bronchiectasis. Affective day #4 switching from meropenem to ce fepime received 3 days of meropenem LINES/IV ACCESS - CVL, Arterial line, ETT, OGT, Sanchez Catheter Continue use of these lines DVT PROPHYLAXIS - SCDS, holding heparin given thrombocytopenia CODE STATUS: Limited: Patient has baseline characteristics that are at high risk for poor outcome given cardiac arrest. Physiologic parameters continue to normalize however there is not significant improvement in his baseline mental status. Will discuss with the patient's son regarding goals of care, no heroic efforts in event of additional arrest. DISPO: ICU I have personally spent 70 minutes of critical care time in the direct management of this patient. This is a life/limb threatening event. This includes time spent evaluating patient, direct bedside care, chart review, placing orders, interpretation of diagnostic studies, discussion with consultants, patient, and/or family members regarding treatment decisions, as well as other required patient management activities. This time is exclusive of all separately billable procedures, and teaching time and separate from and in addition to any other critical care service time. Admission and Anticipated Discharge Date Admission Date: December 03, 2022 Subjective No overnight events. Review of Systems Review of Systems: Unobtainable due to endotracheal tube Physical Exam Physical Exam: General: Glascow Coma Scale: Eyes: 1, Verbal 1T, Motor 4: Withdraws lower extremities no movement of upper extremities, Total 6 -Withdraws bilateral lower extremities to painful stimuli, no movement of upper extremities with painful stimuli. No appearance of confrontational blink, spontaneous respirations are present Skin: Warm, dry, Head: Atraumatic Ears, nose, mouth and throat: airway patent Cardiovascular: Normal peripheral perfusion Respiratory: Coarse sounds bilaterally Gastrointestinal: Feeding tube present Musculoskeletal: No deformity Results & Data Results & Data Vital Signs (Past 12 Hours) Vital Signs Temp Pulse Pulse Resp BP Pulse Ox O2 Del Method 12/06/22 07:25 12 12/06/22 07:15 68 28 H 94 12/06/22 05:00 37.1 C 77 28 H 139/76 95 12/06/22 04:00 37.1 C 80 29 H 153/79 H 95 Mechanical Vent 12/06/22 04:00 12/06/22 03:00 36.9 C 81 28 H 138/82 96 Mechanical Vent 12/06/22 02:00 37.1 C 93 H 28 H 97/60 L 95 Mechanical Vent 12/06/22 02:56 79 28 H 95 12/06/22 01:00 37.1 C 96 H 28 H 98/60 L 95 Mechanical Vent 12/06/22 00:00 37.1 C 106 H 28 H 86/54 L 93 Mechanical Vent 12/06/22 00:00 12/06/22 00:00 105 H 12/05/22 23:00 37.0 C 115 H 29 H 149/81 H 95 Mechanical Vent 12/05/22 22:57 Mechanical Vent 12/05/22 22:00 36.8 C 93 H 34 H 134/78 94 12/05/22 21:00 36.9 C 89 28 H 116/71 94 12/05/22 22:11 100 H 31 H 95 Mechanical Vent 12/05/22 22:11 31 H FiO2 12/06/22 07:25 40 12/06/22 07:15 40 12/06/22 05:00 12/06/22 04:00 12/06/22 04:00 40 12/06/22 03:00 12/06/22 02:00 12/06/22 02:56 40 12/06/22 01:00 12/06/22 00:00 12/06/22 00:00 40 12/06/22 00:00 12/05/22 23:00 12/05/22 22:57 40 12/05/22 22:00 12/05/22 21:00 12/05/22 22:11 40 12/05/22 22:11 40 Critical Care Results & Data Vital Signs (Past 12 Hours) Vital Signs Temp Pulse Pulse Resp BP Pulse Ox O2 Del Method 12/06/22 07:25 12 12/06/22 07:15 68 28 H 94 12/06/22 05:00 37.1 C 77 28 H 139/76 95 12/06/22 04:00 37.1 C 80 29 H 153/79 H 95 Mechanical Vent 12/06/22 04:00 12/06/22 03:00 36.9 C 81 28 H 138/82 96 Mechanical Vent 12/06/22 02:00 37.1 C 93 H 28 H 97/60 L 95 Mechanical Vent 12/06/22 02:56 79 28 H 95 12/06/22 01:00 37.1 C 96 H 28 H 98/60 L 95 Mechanical Vent 12/06/22 00:00 37.1 C 106 H 28 H 86/54 L 93 Mechanical Vent 12/06/22 00:00 12/06/22 00:00 105 H 12/05/22 23:00 37.0 C 115 H 29 H 149/81 H 95 Mechanical Vent 12/05/22 22:57 Mechanical Vent 12/05/22 22:00 36.8 C 93 H 34 H 134/78 94 12/05/22 21:00 36.9 C 89 28 H 116/71 94 12/05/22 22:11 100 H 31 H 95 Mechanical Vent 12/05/22 22:11 31 H FiO2 12/06/22 07:25 40 12/06/22 07:15 40 12/06/22 05:00 12/06/22 04:00 12/06/22 04:00 40 12/06/22 03:00 12/06/22 02:00 12/06/22 02:56 40 12/06/22 01:00 12/06/22 00:00 12/06/22 00:00 40 12/06/22 00:00 12/05/22 23:00 12/05/22 22:57 40 12/05/22 22:00 12/05/22 21:00 12/05/22 22:11 40 12/05/22 22:11 40 Lab & Micro Results (Past 24 Hours) RBC 3.10 M/uL (4.70-6.10) L 12/06/22 WBC 8.82 K/ul (4.8-10.8) 12/06/22 Hgb 9.6 g/dl (14.0-18.0) L 12/06/22 Hct 28.6 % (42.0-52.0) L 12/06/22 MCV 92.3 fL (80.0-100.0) 12/06/22 MCH 31.0 pg (25.0-34.0) 12/06/22 MCHC 33.6 g/dL (32.0-36.0) 12/06/22 RDW Standard Deviation 51.9 fL (36.4-46.3) H 12/06/22 RDW Coefficient of Variation 15.3 % (11.5-14.5) H 12/06/22 Plt Count 80 K/uL (130-400) L 12/06/22 MPV 11.9 fL (9.4-12.4) 12/06/22 Neutrophils (%) (Auto) 91.1 % 12/06/22 Lymphocytes (%) (Auto) 2.0 % 12/06/22 Monocytes # (Auto) 0.55 K/uL (0.11-0.59) 12/06/22 Eosinophils # (Auto) 0.00 K/uL (0.00-0.50) 12/06/22 Immature Granulocyte % (Auto) 0.5 % 12/06/22 Neutrophils # (Auto) 8.03 K/uL (1.40-6.50) H 12/06/22 Lymphocytes # (Auto) 0.18 K/uL (1.20-3.40) L 12/06/22 Monocytes # (Auto) 0.55 K/uL (0.11-0.59) 12/06/22 Eosinophils # (Auto) 0.00 K/uL (0.00-0.50) 12/06/22 Basophils # (Auto) 0.02 K/uL (0.00-0.20) 12/06/22 Immature Granulocyte # (Auto) 0.04 K/uL (0.01-0.20) 3 Toxic Vacuolation 1+ 12/06/22 Dohle Bodies 1+ 12/06/22 Na 136 mmol/L (136-145) 12/06/22 K 3.6 mmol/L (3.5-5.1) 12/06/22 Cl 100 mmol/L (98-107) 12/06/22 CO2 29 mmol/L (21-32) 12/06/22 Anion Gap 7 (3-11) 12/06/22 BUN 23 mg/dl (6-23) 12/06/22 Creatinine 0.55 mg/dl (0.6-1.4) L 12/06/22 Estimated GFR ( Amer) 115.7 ml/min 12/06/22 Estimated GFR (Non-Af Amer) 99.8 ml/min 12/06/22 BUN/Creatinine Ratio 41.8 (10-20) H 12/06/22 Glu 81 mg/dl (70-99(Fasting)) 12/06/22 Ca 8.3 mg/dl (8.6-10.3) L 12/06/22 Phosphorus Level 2.7 mg/dl (2.5-4.9) 12/06/22 Mg 2.1 mg/dl (1.7-2.4) 12/06/22 04:18 Calcium Level 8.3 mg/dl (8.6-10.3) L 12/06/22 04:18 Reed Test NA 12/06/22 07:16 Microbiology 12/03/22 20:03 Gram Stain - Final Sputum,Vent Suction Sputum Culture - Preliminary Pseudomonas aeruginosa 12/03/22 17:40 Aerobic Blood Culture - Preliminary Blood No growth in Aerobic bottle after 48 hours. Anaerobic Blood Culture - Final 12/03/22 18:07 Aerobic Blood Culture - Preliminary Blood No growth in Aerobic bottle after 48 hours. Anaerobic Blood Culture - Final Diagnostic Findings (Past 24 Hours) Brain MRI 12/05/22 08:53 MR brain wo/w con HISTORY: 77 years-old Male anoxic brain injury acute altered mental status COMPARISON: Head CT 12/04/2022 TECHNIQUE: Multiplanar multisequence MRI of the brain was obtained with and without use of IV contrast FINDINGS: No restricted diffusion. Midline structures appear unremarkable. The study is motion degraded. Degenerative changes of the cervical spine. No acute intracranial hemorrhage, midline shift, abnormal extraction collection, hydrocephalus or intra-axial mass. Mild involutional changes with mild T2/FLAIR hyperintense foci throughout the white matter, likely chronic microvascular ischemic disease. Motion degraded exam. No pathologic blooming artifact. No abnormal enhancement. Cerebral venous sinuses and major arterial flow voids appear patent. Endotracheal tube. Prior bilateral lens repair. Postoperative changes of the paranasal sinuses with mucosal thickening. Moderate mastoid effusions. IMPRESSION: 1. Motion degraded exam. 2. No acute intracranial abnormality or abnormal enhancement. 3. Involutional changes with mild chronic microvascular ischemic disease. ACT 112: Negative or not required by law. The above report was generated using voice recognition software. It may contain grammatical, syntax or spelling errors. Electronically signed by: Marcel Cloud M.D. 12/05/2022 1:14 PM Chest X-Ray 12/06/22 07:00 XR chest 1V portable HISTORY: resp failure COMPARISON: Chest 12/05/2022. FINDINGS: Endotracheal tube terminates 3 cm from the steven. No pneumothorax. There is a calcified granuloma within the right lower lobe, unchanged. There are poststernotomy changes. The heart remains enlarged. There is mild diffuse interstitial thickening and trace bilateral pleural effusions. This is similar to the prior study. IMPRESSION: 1. Satisfactory support line placement. 2. No change in the diffuse interstitial thickening and trace pleural effusions. ACT 112: Negative or not required by law. Electronically signed by: Ritesh Quevedo M.D. 12/06/2022 7:42 AM I & O Totals 24 Hours 12/05/22 12/06/22 12/07/22 06:59 06:59 06:59 Intake Total 6698.073 / 6698.073 4551.202 / 4551.202 95.554 / 95.554 Output Total 3356 / 3356 2460 / 2460 Balance 3342.073 / 3342.073 2091.202 / 2090.202 95.554 / 95.554 Cumulative 12/03/22 17:11 thru 12/06/22 08:29 Intake Total 13006.918 Output Total 6666 Balance 11123.918 RT Ventilator Mngmt (Last Documented) Ventilator Ordered Settings Ventilator Support Mode PRVC 12/06/22 07:25 Respiratory Rate 12 12/06/22 07:25 Ventilator Tidal Volume 380 12/06/22 07:25 Setting Minute Ventilation 10.6 12/06/22 07:15 Positive End Expiratory 5 12/06/22 07:25 Pressure Fraction of Inspired Oxygen 40 12/06/22 07:25 Machine Comment fio2 increased due to spo2 91 12/04/22 22:00 Ventilator - PT Measurements Respiratory Rate 12 Exhaled Tidal Volume 370 Minute Ventilation 10.6 Peak Inspiratory Airway 27 Pressure Plateau Pressure 18 Respiratory Cycle Inspiratory: 1:2.6 Expiratory Ratio Inspiratory Phase Time 0.6 End-Tidal CO2 27 Static Lung Compliance 28.46 Dynamic Lung Compliance 16.82 Normal Static Lung Compliance 45.00 Patient Measurements Comment CHANGES PER DR. MTZ Coding Level of Care Code 01249 CRITICAL CARE 1ST 30-74M Diagnoses Acute on chronic respiratory failure with hypoxia and hypercapnia J96.21; J96.22 Cardiac arrest I46.9 Acute exacerbation of chronic obstructive pulmonary disease J44.1 Septic shock A41.9; R65.21 Recurrent aspiration pneumonia J69.0 CAD (coronary artery disease) I25.10
[2022-12-06] MEDS: PANTOprazole 40 MG in SYRINGE 0 ML IV SCH (10:29)
--- NOTE | 2022-12-06 11:15 | Electroencephalogram ---
EEG Procedure Note Date of Service December 06, 2022 Start / End Times Start Time: 10:13 AM End Time: 10:33 AM Referring Physician Alvin History Encephalopathy Home Medication List Medication Instructions Recorded Confirmed Type atorvastatin 40 mg tablet 40 mg feeding tube QPM 09/18/18 12/03/22 History nitroglycerin 0.4 mg sublingual 0.4 mg sublingual UD PRN Chest Pain 09/18/18 12/03/22 History tablet albuterol sulfate 90 mcg/actuation 2 inh inhalation Q6H PRN shortness 05/06/20 10/25/22 Rx aerosol inhaler (ProAir HFA) of breath or wheezing #8.5 grams nutritional supplements 0.08 1 ea feeding tube DIRECTED 02/19/21 10/26/22 History gram-2 kcal/mL liquid for tube feed (Nutren 2.0) ipratropium 0.5 mg-albuterol 3 mg 3 ml inhalation Q6H PRN Shortness 09/05/22 12/03/22 History (2.5 mg base)/3 mL nebulization Of Breath soln lorazepam 0.5 mg tablet 0.5 mg feeding tube HS PRN Anxiety 10/18/22 12/03/22 History midodrine 2.5 mg tablet 2.5 mg PO TID@0800,1200,1700 #90 11/05/22 12/03/22 Rx tabs Inpatient Medication List Albuterol (Albut/Ipratrop 3mg/0.5mg Neb 3 Ml Vial) 3 ml INH Q4 PRN; Protocol PRN Reason: Shortness Of Breath Stop: 01/02/23 20:55 Last Admin: 12/05/22 22:11 Dose: 3 ml Documented By: Admin: 12/05/22 02:24 Dose: 3 ml Documented By: Admin: 12/04/22 22:00 Dose: 3 ml Documented By: COLTON Budesonide (Budesonide 0.25 Mg/2 Ml Vial (Pulmicort)) 0.25 mg NEB BIDR [facility] Stop: 01/03/23 19:59 Last Admin: 12/06/22 07:15 Dose: 0.25 mg Documented By: KMHyacinth Admin: 12/05/22 19:28 Dose: 0.25 mg Documented By: Admin: 12/05/22 07:40 Dose: 0.25 mg Documented By: Admin: 12/04/22 20:00 Dose: 0.25 mg Documented By: COLTON Formoterol Fumarate (Formoterol 20 Mcg/2 Ml Vial) 20 mcg NEB BIDR [facility] Stop: 01/02/23 22:29 Last Admin: 12/06/22 07:15 Dose: 20 mcg Documented By: KMHyacinth Admin: 12/05/22 19:28 Dose: 20 mcg Documented By: Admin: 12/05/22 07:39 Dose: 20 mcg Documented By: Admin: 12/04/22 19:17 Dose: 20 mcg Documented By: Admin: 12/04/22 07:39 Dose: 20 mcg Documented By: Admin: 12/03/22 23:01 Dose: 20 mcg Documented By: NDC Parenteral Electrolytes (Plasma-Lyte A Ph 7.4) 1,000 mls @ 110 mls/hr IV .Q9H6M [facility] Stop: 01/02/23 21:14 Last Admin: 12/06/22 06:37 Dose: 110 mls/hr Documented By: Infusion: 12/06/22 06:37 Dose: 110 mls/hr Documented By: Admin: 12/06/22 01:59 Dose: 110 mls/hr Documented By: Infusion: 12/06/22 01:52 Dose: 110 mls/hr Documented By: Admin: 12/05/22 16:46 Dose: 110 mls/hr Documented By: Infusion: 12/05/22 16:46 Dose: 110 mls/hr Documented By: Admin: 12/05/22 08:32 Dose: 110 mls/hr Documented By: Infusion: 12/05/22 08:30 Dose: 110 mls/hr Documented By: Admin: 12/04/22 23:24 Dose: 110 mls/hr Documented By: Infusion: 12/04/22 23:19 Dose: 110 mls/hr Documented By: Admin: 12/04/22 14:13 Dose: 110 mls/hr Documented By: Infusion: 12/04/22 14:13 Dose: 110 mls/hr Documented By: Admin: 12/04/22 06:13 Dose: 110 mls/hr Documented By: Infusion: 12/04/22 06:13 Dose: 110 mls/hr Documented By: Admin: 12/03/22 21:25 Dose: 110 mls/hr Documented By: MLH Vasopressin 20 units/ Sodium (Chloride) 101 mls @ 0 mls/hr IV .Q0M [facility] Stop: 01/02/23 21:59 Last Infusion: 12/06/22 07:20 Dose: 0 unit/min, 0 mls/hr Documented By: Admin: 12/06/22 07:14 Dose: Not Given Documented By: Admin: 12/06/22 07:13 Dose: Not Given Documented By: Infusion: 12/06/22 06:51 Dose: 0.04 unit/min, 12.1 mls/hr Documented By: ES Co-signed By: GG Infusion: 12/06/22 06:00 Dose: 0.04 unit/min, 12.1 mls/hr Documented By: Infusion: 12/06/22 05:48 Dose: 0 unit/min, 0 mls/hr Documented By: Admin: 12/06/22 02:51 Dose: 0.04 unit/min, 12.1 mls/hr Documented By: GG Co-signed By: JT Infusion: 12/06/22 02:40 Dose: 0 unit/min, 0 mls/hr Documented By: Infusion: 12/05/22 18:55 Dose: 0 unit/min, 0 mls/hr Documented By: JT Co-signed By: ES Infusion: 12/05/22 12:10 Dose: 0 unit/min, 0 mls/hr Documented By: Admin: 12/05/22 08:15 Dose: Not Given Documented By: Infusion: 12/05/22 07:16 Dose: 0.04 unit/min, 12.1 mls/hr Documented By: CF Co-signed By: ES Infusion: 12/05/22 06:49 Dose: 0.04 unit/min, 12.1 mls/hr Documented By: Infusion: 12/05/22 06:40 Dose: 0 unit/min, 0 mls/hr Documented By: Admin: 12/05/22 04:57 Dose: 0.04 unit/min, 12.1 mls/hr Documented By: CF Co-signed By: TMG Infusion: 12/05/22 04:57 Dose: 0.04 unit/min, 12.1 mls/hr Documented By: CF Co-signed By: TMG Admin: 12/04/22 20:44 Dose: 0.04 unit/min, 12.1 mls/hr Documented By: CF Co-signed By: MLH Infusion: 12/04/22 20:44 Dose: 0.04 unit/min, 12.1 mls/hr Documented By: CF Co-signed By: MLH Infusion: 12/04/22 19:02 Dose: 0.04 unit/min, 12.1 mls/hr Documented By: CF Co-signed By: ALLAN Admin: 12/04/22 12:53 Dose: 0.04 unit/min, 12.1 mls/hr Documented By: ALLAN Co-signed By: DMB Infusion: 12/04/22 12:51 Dose: 0.04 unit/min, 12.1 mls/hr Documented By: ALLAN Co-signed By: DMB Infusion: 12/04/22 06:58 Dose: 0.04 unit/min, 12.1 mls/hr Documented By: CF Co-signed By: ALLAN Admin: 12/04/22 04:30 Dose: 0.04 unit/min, 12.1 mls/hr Documented By: CF Co-signed By: MLH Infusion: 12/04/22 04:30 Dose: 0.04 unit/min, 12.1 mls/hr Documented By: CF Co-signed By: MLH Admin: 12/03/22 22:05 Dose: 0.04 unit/min, 12.1 mls/hr Documented By: MLH Co-signed By: TITUS Norepinephrine Bitartrate (Levophed/D5w) 16 mg in 500 mls @ 0 mls/hr IV .Q0M [facility]; Protocol Stop: 01/03/23 05:59 Last Titration: 12/06/22 10:48 Dose: 0 mcg/kg/min, 0 mls/hr Documented By: Titration: 12/06/22 06:51 Dose: 0 mcg/kg/min, 0 mls/hr Documented By: ES Co-signed By: GG Titration: 12/06/22 04:04 Dose: 0 mcg/kg/min, 0 mls/hr Documented By: Titration: 12/06/22 03:45 Dose: 0.02 mcg/kg/min, 2.1 mls/hr Documented By: Titration: 12/06/22 03:24 Dose: 0.04 mcg/kg/min, 4.2 mls/hr Documented By: Titration: 12/06/22 03:11 Dose: 0.06 mcg/kg/min, 6.2 mls/hr Documented By: Titration: 12/06/22 03:04 Dose: 0.08 mcg/kg/min, 8.3 mls/hr Documented By: Titration: 12/06/22 02:58 Dose: 0.1 mcg/kg/min, 10.4 mls/hr Documented By: Titration: 12/06/22 02:36 Dose: 0.12 mcg/kg/min, 12.5 mls/hr Documented By: Titration: 12/06/22 02:32 Dose: 1.2 mcg/kg/min, 124.7 mls/hr Documented By: Titration: 12/06/22 01:09 Dose: 0.1 mcg/kg/min, 10.4 mls/hr Documented By: Titration: 12/06/22 00:35 Dose: 0.08 mcg/kg/min, 8.3 mls/hr Documented By: Titration: 12/06/22 00:20 Dose: 0.06 mcg/kg/min, 6.2 mls/hr Documented By: Titration: 12/06/22 00:05 Dose: 0.04 mcg/kg/min, 4.2 mls/hr Documented By: Titration: 12/05/22 23:22 Dose: 0.02 mcg/kg/min, 2.1 mls/hr Documented By: Titration: 12/05/22 22:25 Dose: 0.04 mcg/kg/min, 4.2 mls/hr Documented By: Titration: 12/05/22 20:37 Dose: 0.06 mcg/kg/min, 6.2 mls/hr Documented By: Titration: 12/05/22 18:55 Dose: 0.08 mcg/kg/min, 8.3 mls/hr Documented By: LISE Co-signed By: ES Titration: 12/05/22 13:32 Dose: 0.1 mcg/kg/min, 10.4 mls/hr Documented By: Titration: 12/05/22 11:07 Dose: 0.08 mcg/kg/min, 8.3 mls/hr Documented By: Titration: 12/05/22 08:15 Dose: 0.1 mcg/kg/min, 10.4 mls/hr Documented By: Admin: 12/05/22 08:04 Dose: Not Given Documented By: Titration: 12/05/22 07:45 Dose: 0.12 mcg/kg/min, 12.5 mls/hr Documented By: Titration: 12/05/22 07:16 Dose: 0.14 mcg/kg/min, 14.5 mls/hr Documented By: CF Co-signed By: ES Titration: 12/05/22 06:49 Dose: 0.14 mcg/kg/min, 14.5 mls/hr Documented By: Titration: 12/05/22 06:40 Dose: 0 mcg/kg/min, 0 mls/hr Documented By: Admin: 12/04/22 19:56 Dose: 0.14 mcg/kg/min, 14.5 mls/hr Documented By: CF Co-signed By: AMB Titration: 12/04/22 19:56 Dose: 0.14 mcg/kg/min, 14.5 mls/hr Documented By: CF Co-signed By: AMB Titration: 12/04/22 19:02 Dose: 0.14 mcg/kg/min, 14.5 mls/hr Documented By: CF Co-signed By: ALLAN Titration: 12/04/22 18:36 Dose: 0.14 mcg/kg/min, 14.5 mls/hr Documented By: Titration: 12/04/22 18:24 Dose: 0.16 mcg/kg/min, 16.6 mls/hr Documented By: Titration: 12/04/22 18:11 Dose: 0.18 mcg/kg/min, 18.7 mls/hr Documented By: Titration: 12/04/22 17:56 Dose: 0.2 mcg/kg/min, 20.8 mls/hr Documented By: Titration: 12/04/22 17:34 Dose: 0.22 mcg/kg/min, 22.9 mls/hr Documented By: Titration: 12/04/22 17:24 Dose: 0.24 mcg/kg/min, 24.9 mls/hr Documented By: Titration: 12/04/22 16:57 Dose: 0.26 mcg/kg/min, 27 mls/hr Documented By: Titration: 12/04/22 16:45 Dose: 0.28 mcg/kg/min, 29.1 mls/hr Documented By: Titration: 12/04/22 15:29 Dose: 0.32 mcg/kg/min, 33.2 mls/hr Documented By: Titration: 12/04/22 15:01 Dose: 0.36 mcg/kg/min, 37.4 mls/hr Documented By: Titration: 12/04/22 14:52 Dose: 0.38 mcg/kg/min, 39.5 mls/hr Documented By: Titration: 12/04/22 14:26 Dose: 0.4 mcg/kg/min, 41.6 mls/hr Documented By: Titration: 12/04/22 14:00 Dose: 0.42 mcg/kg/min, 43.6 mls/hr Documented By: Titration: 12/04/22 13:32 Dose: 0.45 mcg/kg/min, 46.7 mls/hr Documented By: Titration: 12/04/22 12:13 Dose: 0.48 mcg/kg/min, 49.9 mls/hr Documented By: Titration: 12/04/22 09:56 Dose: 0.5 mcg/kg/min, 51.9 mls/hr Documented By: Titration: 12/04/22 07:33 Dose: 0.25 mcg/kg/min, 26 mls/hr Documented By: Titration: 12/04/22 07:24 Dose: 0.35 mcg/kg/min, 36.4 mls/hr Documented By: Titration: 12/04/22 07:17 Dose: 0.45 mcg/kg/min, 46.7 mls/hr Documented By: Titration: 12/04/22 06:58 Dose: 0.52 mcg/kg/min, 54 mls/hr Documented By: CF Co-signed By: ALLAN Titration: 12/04/22 06:57 Dose: 0.52 mcg/kg/min, 54 mls/hr Documented By: Titration: 12/04/22 06:40 Dose: 0.5 mcg/kg/min, 51.9 mls/hr Documented By: Admin: 12/04/22 06:34 Dose: 0.48 mcg/kg/min, 49.9 mls/hr Documented By: TITUS Co-signed By: RANDALL Hydrocortisone Sodium (Succinate 50 mg/ Syringe) 1 mls @ 4 mls/min IV Q6H [facility] Stop: 12/07/22 08:29 Last Admin: 12/06/22 07:19 Dose: 4 mls/min Documented By: Admin: 12/06/22 01:59 Dose: 4 mls/min Documented By: Admin: 12/05/22 19:56 Dose: 4 mls/min Documented By: Admin: 12/05/22 13:19 Dose: 4 mls/min Documented By: Admin: 12/05/22 08:32 Dose: 4 mls/min Documented By: Admin: 12/05/22 02:34 Dose: 4 mls/min Documented By: Admin: 12/04/22 20:08 Dose: 4 mls/min Documented By: Admin: 12/04/22 12:53 Dose: 4 mls/min Documented By: Admin: 12/04/22 09:54 Dose: 4 mls/min Documented By: ALLAN Pantoprazole Sodium 40 mg/ (Syringe) 10 mls @ 5 mls/min IV DAILY@1100 [facility] Stop: 01/03/23 10:59 Last Admin: 12/06/22 10:29 Dose: 5 mls/min Documented By: Admin: 12/05/22 09:40 Dose: 5 mls/min Documented By: Admin: 12/04/22 10:36 Dose: 5 mls/min Documented By: ALLAN Midodrine (Midodrine Hcl 2.5 Mg Tab) 5 mg PO TID@0800,1200,1700 [facility] Stop: 01/05/23 07:59 Last Admin: 12/06/22 07:19 Dose: 5 mg Documented By: FABIOLA Miscellaneous (Icu Electrolyte Replacement Protocol) 1 each N/A BID@06,18 ROYA; Protocol Stop: 12/11/22 05:59 Last Admin: 12/06/22 06:11 Dose: 1 each Documented By: Admin: 12/05/22 16:33 Dose: Not Given Documented By: Admin: 12/05/22 06:51 Dose: 1 each Documented By: Admin: 12/04/22 14:45 Dose: 1 each Documented By: Admin: 12/04/22 06:20 Dose: 1 each Documented By: TITUS Discontinued Medications Albuterol (Albut/Ipratrop 3mg/0.5mg Neb 3 Ml Vial) 3 ml INH Q6H PRN; Protocol PRN Reason: Shortness Of Breath Stop: 01/02/23 20:55 Last Admin: 12/04/22 15:03 Dose: 3 ml Documented By: Admin: 12/04/22 08:11 Dose: 3 ml Documented By: BOLA Budesonide (Budesonide 0.25 Mg/2 Ml Vial (Pulmicort)) 0.25 mg NEB QDR [facility] Stop: 01/03/23 07:59 Last Admin: 12/04/22 07:38 Dose: 0.25 mg Documented By: Admin: 12/03/22 23:02 Dose: 0.25 mg Documented By: CHARLIE Calcium Chloride (Calcium Chloride 10% 10 Ml Syr) Confirm Administered Dose 1,000 mg IV .STK-MED ONE Stop: 12/04/22 08:09 Last Admin: 12/04/22 09:55 Dose: 1,000 mg Documented By: ALLAN Dexamethasone Sodium Phosphate (DexamethasonePf 10 Mg/Ml Vial) 10 mg IV NOW ONE Stop: 12/03/22 19:25 Last Admin: 12/03/22 21:01 Dose: Not Given Documented By: JORDAN Fentanyl Citrate (Fentanyl Citrate Pf 100 Mcg/2 Ml Vial) Confirm Administered Dose 100 mcg .ROUTE .STK-MED ONE Stop: 12/03/22 18:14 Last Admin: 12/03/22 20:10 Dose: Not Given Documented By: CF Fentanyl Citrate (Fentanyl Citrate 2,500 Mcg/250 Ml Bag) Confirm Administered Dose 2,500 mcg IV .STK-MED ONE Stop: 12/03/22 20:47 Last Admin: 12/03/22 20:58 Dose: Not Given Documented By: JORDAN Gadobutrol (Gadobutrol 30ml Vial) 5.5 ml IV ONCE ONE Stop: 12/05/22 12:36 Last Admin: 12/05/22 12:35 Dose: 5.5 ml Documented By: JASPER Heparin Sodium (Porcine) (Heparin (Porcine) 1000 Unit/Ml 10 Ml (Data Processor Use Only)) Confirm Administered Dose 20,000 units .ROUTE .STK-MED ONE Stop: 12/03/22 18:14 Last Admin: 12/03/22 20:10 Dose: Not Given Documented By: TITUS Heparin Sodium (Porcine) (Heparin Sod 5,000 Unit/0.5 Ml Vial) 5,000 units SQ Q12 [facility] Stop: 01/03/23 08:59 Last Admin: 12/05/22 09:17 Dose: Not Given Documented By: Admin: 12/04/22 20:09 Dose: 5,000 units Documented By: Admin: 12/04/22 07:22 Dose: 5,000 units Documented By: ALLAN Heparin Sodium/Sodium Chloride (Heparin In Nss Infusion 1000 Unit/500 Ml (2 U/Ml) Bag) Confirm Administered Dose 3,000 units IV .STK-MED ONE Stop: 12/03/22 18:14 Last Admin: 12/03/22 20:10 Dose: Not Given Documented By: TITUS Norepinephrine Bitartrate (Levophed/D5w) 4 mg in 250 mls @ 104.438 mls/hr IV .Q2H24M [facility]; Protocol Stop: 12/04/22 05:59 Last Titration: 12/04/22 07:02 Dose: 0 mcg/kg/min, 0 mls/hr Documented By: Titration: 12/04/22 06:12 Dose: 0.35 mcg/kg/min, 73.1 mls/hr Documented By: Admin: 12/04/22 04:04 Dose: 0.54 mcg/kg/min, 112.8 mls/hr Documented By: CF Co-signed By: AMB Titration: 12/04/22 04:04 Dose: 0.54 mcg/kg/min, 112.8 mls/hr Documented By: CF Co-signed By: AMB Titration: 12/04/22 02:15 Dose: 0.54 mcg/kg/min, 112.8 mls/hr Documented By: Titration: 12/04/22 02:10 Dose: 0.54 mcg/kg/min, 112.8 mls/hr Documented By: Titration: 12/04/22 02:05 Dose: 0.52 mcg/kg/min, 108.6 mls/hr Documented By: Titration: 12/04/22 02:00 Dose: 0.5 mcg/kg/min, 104.4 mls/hr Documented By: Admin: 12/04/22 01:55 Dose: 0.48 mcg/kg/min, 100.3 mls/hr Documented By: CF Co-signed By: TMG Titration: 12/04/22 01:43 Dose: 0.46 mcg/kg/min, 96.1 mls/hr Documented By: CF Co-signed By: TMG Titration: 12/03/22 23:30 Dose: 0.46 mcg/kg/min, 96.1 mls/hr Documented By: Titration: 12/03/22 23:23 Dose: 0.44 mcg/kg/min, 91.9 mls/hr Documented By: Titration: 12/03/22 23:18 Dose: 0.42 mcg/kg/min, 87.7 mls/hr Documented By: Titration: 12/03/22 23:13 Dose: 0.4 mcg/kg/min, 83.6 mls/hr Documented By: Titration: 12/03/22 23:08 Dose: 0.38 mcg/kg/min, 79.4 mls/hr Documented By: Titration: 12/03/22 23:03 Dose: 0.34 mcg/kg/min, 71 mls/hr Documented By: CF Co-signed By: TMG Admin: 12/03/22 23:03 Dose: 0.36 mcg/kg/min, 75.2 mls/hr Documented By: CF Co-signed By: TMG Titration: 12/03/22 22:00 Dose: 0.34 mcg/kg/min, 71 mls/hr Documented By: Titration: 12/03/22 21:55 Dose: 0.32 mcg/kg/min, 66.8 mls/hr Documented By: Titration: 12/03/22 21:30 Dose: 0.28 mcg/kg/min, 58.5 mls/hr Documented By: Titration: 12/03/22 21:24 Dose: 0.26 mcg/kg/min, 54.3 mls/hr Documented By: Titration: 12/03/22 21:14 Dose: 0.22 mcg/kg/min, 46 mls/hr Documented By: Titration: 12/03/22 21:09 Dose: 0.2 mcg/kg/min, 41.8 mls/hr Documented By: Titration: 12/03/22 20:45 Dose: 0.22 mcg/kg/min, 46 mls/hr Documented By: Titration: 12/03/22 20:30 Dose: 0.24 mcg/kg/min, 50.1 mls/hr Documented By: Admin: 12/03/22 20:11 Dose: 0.26 mcg/kg/min, 54.3 mls/hr Documented By: JE Co-signed By: SHAY Titration: 12/03/22 20:11 Dose: 0.15 mcg/kg/min, 31.3 mls/hr Documented By: JE Co-signed By: SHAY Titration: 12/03/22 18:36 Dose: 0.15 mcg/kg/min, 31.3 mls/hr Documented By: Titration: 12/03/22 18:28 Dose: 0.12 mcg/kg/min, 25.1 mls/hr Documented By: Titration: 12/03/22 18:10 Dose: 0.09 mcg/kg/min, 18.8 mls/hr Documented By: Titration: 12/03/22 18:05 Dose: 0.07 mcg/kg/min, 14.6 mls/hr Documented By: JPJalyn Admin: 12/03/22 17:55 Dose: 0.05 mcg/kg/min, 10.4 mls/hr Documented By: CHIRAG Co-signed By: ERNESTO Propofol (Diprivan) 1,000 mg in 100 mls @ 6.684 mls/hr IV .[id number] [facility]; Protocol Stop: 12/06/22 17:59 Last Admin: 12/03/22 20:09 Dose: Not Given Documented By: CF Piperacillin Sod/Tazobactam Sod (Zosyn) 4.5 gm in 100 mls @ 200 mls/hr IV NOW ONE Stop: 12/03/22 18:23 Last Infusion: 12/03/22 20:06 Dose: 0 mls/hr Documented By: Admin: 12/03/22 19:36 Dose: 200 mls/hr Documented By: JE Sodium Chloride (Nss) 1,000 mls @ 999 mls/hr IV .Q1H1M ONE Stop: 12/03/22 19:01 Last Infusion: 12/03/22 20:00 Dose: 0 mls/hr Documented By: Admin: 12/03/22 18:08 Dose: 999 mls/hr Documented By: CHIRAG Meropenem 500 mg/ Syringe 10 mls @ 2 mls/min IV Q6H [facility]; Protocol Stop: 12/10/22 19:59 Last Admin: 12/06/22 07:19 Dose: 2 mls/min Documented By: Admin: 12/06/22 02:00 Dose: 2 mls/min Documented By: Admin: 12/05/22 19:56 Dose: 2 mls/min Documented By: Admin: 12/05/22 13:19 Dose: 2 mls/min Documented By: Admin: 12/05/22 08:31 Dose: 2 mls/min Documented By: Admin: 12/05/22 02:36 Dose: 2 mls/min Documented By: Admin: 12/04/22 20:12 Dose: 2 mls/min Documented By: Admin: 12/04/22 12:53 Dose: 2 mls/min Documented By: Admin: 12/04/22 07:22 Dose: 2 mls/min Documented By: Admin: 12/04/22 02:00 Dose: 2 mls/min Documented By: Admin: 12/03/22 21:06 Dose: 2 mls/min Documented By: JORDAN Parenteral Electrolytes (Plasma-Lyte A Ph 7.4) 1,000 mls @ 999 mls/hr IV .Q1H1M ONE Stop: 12/03/22 21:05 Last Infusion: 12/03/22 21:31 Dose: 0 mls/hr Documented By: Admin: 12/03/22 20:30 Dose: 999 mls/hr Documented By: JORDAN Fentanyl Citrate (Fentanyl Citrate) 2,500 mcg in 250 mls @ 2.5 mls/hr IV .Q96H [facility]; Protocol Stop: 12/17/22 20:55 Last Titration: 12/05/22 09:40 Dose: 0 mcg/hr, 0 mls/hr Documented By: ES Co-signed By: KGY Titration: 12/05/22 07:16 Dose: 25 mcg/hr, 2.5 mls/hr Documented By: CF Co-signed By: ES Titration: 12/05/22 06:49 Dose: 25 mcg/hr, 2.5 mls/hr Documented By: CF Co-signed By: AMB Titration: 12/05/22 06:40 Dose: 0 mcg/hr, 0 mls/hr Documented By: CF Co-signed By: AMB Titration: 12/04/22 19:02 Dose: 25 mcg/hr, 2.5 mls/hr Documented By: CF Co-signed By: ALLAN Titration: 12/04/22 09:56 Dose: 25 mcg/hr, 2.5 mls/hr Documented By: ALLNA Co-signed By: DMB Titration: 12/04/22 06:58 Dose: 0 mcg/hr, 0 mls/hr Documented By: CF Co-signed By: ALLAN Titration: 12/04/22 06:27 Dose: 0 mcg/hr, 0 mls/hr Documented By: CF Co-signed By: TMG Titration: 12/03/22 23:54 Dose: 50 mcg/hr, 5 mls/hr Documented By: CF Co-signed By: TMG Admin: 12/03/22 20:30 Dose: 25 mcg/hr, 2.5 mls/hr Documented By: VK Co-signed By: [facility] Parenteral Electrolytes (Plasma-Lyte A Ph 7.4) 500 mls @ 999 mls/hr IV .Q31M ONE Stop: 12/03/22 21:47 Last Infusion: 12/03/22 21:48 Dose: 0 mls/hr Documented By: Admin: 12/03/22 21:17 Dose: 999 mls/hr Documented By: ML Azithromycin 500 mg/ Dextrose 255 mls @ 125 mls/hr IV ONE ONE Stop: 12/04/22 03:32 Last Infusion: 12/04/22 06:21 Dose: 0 mls/hr Documented By: Admin: 12/04/22 01:55 Dose: 125 mls/hr Documented By: ITTUS Parenteral Electrolytes (Plasma-Lyte A Ph 7.4) 500 mls @ 999 mls/hr IV .Q31M ONE Stop: 12/04/22 02:00 Last Infusion: 12/04/22 03:18 Dose: 0 mls/hr Documented By: Admin: 12/04/22 01:56 Dose: 999 mls/hr Documented By: TITUS Potassium Phosphate 15 mmol/ (Sodium Chloride) 255 mls @ 100 mls/hr IV ONE ONE Stop: 12/04/22 09:32 Last Infusion: 12/04/22 10:44 Dose: 0 mls/hr Documented By: Admin: 12/04/22 06:59 Dose: 100 mls/hr Documented By: TITUS Parenteral Electrolytes (Plasma-Lyte A Ph 7.4) 500 mls @ 999 mls/hr IV .Q31M ONE Stop: 12/04/22 07:20 Last Infusion: 12/04/22 10:44 Dose: 0 mls/hr Documented By: Admin: 12/04/22 07:19 Dose: 999 mls/hr Documented By: ALLAN Albumin Human (Albumin 25%) 25 gm in 100 mls @ 50 mls/hr IV Q2H ROYA Stop: 12/04/22 13:14 Last Infusion: 12/04/22 11:58 Dose: 0 mls/hr Documented By: Admin: 12/04/22 10:36 Dose: 50 mls/hr Documented By: Infusion: 12/04/22 10:36 Dose: 50 mls/hr Documented By: Admin: 12/04/22 09:57 Dose: 50 mls/hr Documented By: ALLAN Lactated Ringer's (Lr) 2,000 mls @ 999 mls/hr IV .Q2H1M ONE Stop: 12/04/22 11:14 Last Infusion: 12/04/22 11:58 Dose: 0 mls/hr Documented By: Admin: 12/04/22 09:56 Dose: 999 mls/hr Documented By: ALLAN Calcium Chloride 1,000 mg/ (Dextrose) 60 mls @ 240 mls/hr IV NOW STA Stop: 12/04/22 10:23 Last Admin: 12/04/22 10:29 Dose: Not Given Documented By: ALLAN Potassium Chloride (K Fabian / Wtr) 20 meq in 100 mls @ 50 mls/hr IV Q2H ROYA Stop: 12/04/22 22:45 Last Infusion: 12/04/22 22:54 Dose: 0 mls/hr Documented By: Admin: 12/04/22 20:38 Dose: 50 mls/hr Documented By: Infusion: 12/04/22 20:38 Dose: 50 mls/hr Documented By: Admin: 12/04/22 18:50 Dose: 50 mls/hr Documented By: Infusion: 12/04/22 18:50 Dose: 50 mls/hr Documented By: Admin: 12/04/22 16:57 Dose: 50 mls/hr Documented By: Infusion: 12/04/22 16:57 Dose: 50 mls/hr Documented By: Admin: 12/04/22 15:29 Dose: 50 mls/hr Documented By: ALLAN Magnesium Sulfate/Dextrose (Magnesium Sulfate / D5w) 1 gm in 100 mls @ 50 mls/hr IV Q2H ROYA Stop: 12/04/22 22:59 Last Infusion: 12/04/22 22:09 Dose: 0 mls/hr Documented By: Admin: 12/04/22 20:09 Dose: 50 mls/hr Documented By: Infusion: 12/04/22 20:09 Dose: 50 mls/hr Documented By: Admin: 12/04/22 18:22 Dose: 50 mls/hr Documented By: Infusion: 12/04/22 18:22 Dose: 50 mls/hr Documented By: Admin: 12/04/22 16:29 Dose: 50 mls/hr Documented By: Infusion: 12/04/22 16:29 Dose: 50 mls/hr Documented By: Admin: 12/04/22 14:55 Dose: 50 mls/hr Documented By: ALLAN Propofol (Diprivan) 1,000 mg in 100 mls @ 0 mls/hr IV .Q0M ROYA; Protocol Stop: 12/08/22 08:59 Last Titration: 12/06/22 10:48 Dose: 0 mcg/kg/min, 0 mls/hr Documented By: Titration: 12/06/22 07:19 Dose: 0 mcg/kg/min, 0 mls/hr Documented By: Titration: 12/06/22 06:51 Dose: 25 mcg/kg/min, 8.3 mls/hr Documented By: ES Co-signed By: GG Admin: 12/06/22 06:02 Dose: 25 mcg/kg/min, 8.3 mls/hr Documented By: GG Co-signed By: JT Titration: 12/06/22 06:02 Dose: 25 mcg/kg/min, 8.3 mls/hr Documented By: GG Co-signed By: JT Titration: 12/06/22 05:35 Dose: 25 mcg/kg/min, 8.3 mls/hr Documented By: Titration: 12/06/22 05:11 Dose: 0 mcg/kg/min, 0 mls/hr Documented By: Titration: 12/06/22 03:06 Dose: 25 mcg/kg/min, 8.3 mls/hr Documented By: Titration: 12/06/22 02:58 Dose: 20 mcg/kg/min, 6.6 mls/hr Documented By: Titration: 12/06/22 02:20 Dose: 15 mcg/kg/min, 5 mls/hr Documented By: Titration: 12/06/22 01:09 Dose: 20 mcg/kg/min, 6.6 mls/hr Documented By: Titration: 12/05/22 23:36 Dose: 25 mcg/kg/min, 8.3 mls/hr Documented By: Titration: 12/05/22 23:23 Dose: 20 mcg/kg/min, 6.6 mls/hr Documented By: Titration: 12/05/22 23:13 Dose: 15 mcg/kg/min, 5 mls/hr Documented By: Titration: 12/05/22 22:50 Dose: 10 mcg/kg/min, 3.3 mls/hr Documented By: Titration: 12/05/22 18:55 Dose: 5 mcg/kg/min, 1.7 mls/hr Documented By: JT Co-signed By: ES Titration: 12/05/22 11:07 Dose: 5 mcg/kg/min, 1.7 mls/hr Documented By: Admin: 12/05/22 09:40 Dose: 10 mcg/kg/min, 3.3 mls/hr Documented By: FABIOLA Co-signed By: JANICE Calcium Chloride 1,000 mg/ (Dextrose) 60 mls @ 240 mls/hr IV NOW ONE Stop: 12/05/22 09:44 Last Infusion: 12/05/22 11:07 Dose: 0 mls/hr Documented By: Admin: 12/05/22 10:51 Dose: 240 mls/hr Documented By: FABIOLA Parenteral Electrolytes (Plasma-Lyte A Ph 7.4) 500 mls @ 999 mls/hr IV .Q31M ONE Stop: 12/06/22 02:49 Last Infusion: 12/06/22 03:02 Dose: 0 mls/hr Documented By: Admin: 12/06/22 02:31 Dose: 999 mls/hr Documented By: JEANA Potassium Chloride (K Fabian / Wtr) 20 meq in 100 mls @ 50 mls/hr IV Q2H ROYA Stop: 12/06/22 10:29 Last Infusion: 12/06/22 10:15 Dose: 0 mls/hr Documented By: Admin: 12/06/22 08:29 Dose: 50 mls/hr Documented By: Infusion: 12/06/22 08:29 Dose: 50 mls/hr Documented By: Admin: 12/06/22 06:46 Dose: 50 mls/hr Documented By: JEANA Ioversol (Optiray 320 500ml) 112 ml IV ONCE ONE Stop: 12/03/22 18:53 Last Admin: 12/03/22 18:53 Dose: 112 ml Documented By: YAMILE Midazolam HCl (Midazolam Hcl 1 Mg/Ml 2ml Vial) Confirm Administered Dose 2 mg .ROUTE .STK-MED ONE Stop: 12/03/22 18:14 Last Admin: 12/03/22 20:10 Dose: Not Given Documented By: TITUS Midodrine (Midodrine Hcl 2.5 Mg Tab) 2.5 mg PO TID@0800,1200,1700 ROYA Stop: 01/03/23 07:59 Last Admin: 12/05/22 16:46 Dose: 2.5 mg Documented By: Admin: 12/05/22 10:58 Dose: 2.5 mg Documented By: Admin: 12/05/22 08:31 Dose: 2.5 mg Documented By: Admin: 12/04/22 16:57 Dose: 2.5 mg Documented By: Admin: 12/04/22 12:53 Dose: 2.5 mg Documented By: Admin: 12/04/22 07:22 Dose: 2.5 mg Documented By: ALLAN Misravindra (Rapid Sequence Induction Bag) Confirm Administered Dose 1 each N/A .STK-MED ONE Stop: 12/03/22 17:35 Last Admin: 12/03/22 20:09 Dose: Not Given Documented By: TITUS Tracey (Icu Protocol For Hyperglycemia) 1 each N/A ACHS ROYA Stop: 12/05/22 20:59 Last Admin: 12/05/22 10:56 Dose: Not Given Documented By: Admin: 12/05/22 08:15 Dose: Not Given Documented By: Admin: 12/04/22 20:39 Dose: Not Given Documented By: Admin: 12/04/22 15:49 Dose: 1 each Documented By: Admin: 12/04/22 10:41 Dose: 1 each Documented By: Admin: 12/04/22 10:40 Dose: 1 each Documented By: Admin: 12/03/22 21:05 Dose: Not Given Documented By: TITUS Tracey (Patient's Height &/Or Weight Needed) 1 each N/A Q2H ROYA Stop: 01/02/23 20:14 Last Admin: 12/03/22 21:05 Dose: 1 each Documented By: TITUS Nicardipine HCl (Nicardipine Hcl Inj 2.5 Mg/Ml 10 Ml Amp) Confirm Administered Dose 25 mg .ROUTE .STK-MED ONE Stop: 12/03/22 18:14 Last Admin: 12/03/22 20:10 Dose: Not Given Documented By: TITUS Nitroglycerin/Dextrose (Nitroglycerin/D5w 100mcg/Ml 20ml Syr) Confirm Administered Dose 2,000 mcg .ROUTE .STK-MED ONE Stop: 12/03/22 18:28 Last Admin: 12/03/22 20:11 Dose: Not Given Documented By: TITUS Norepinephrine Bitartrate (Norepinephrine/D5w 4 Mg/250 Ml) Confirm Administered Dose 4 mg IV .STK-MED ONE Stop: 12/03/22 17:52 Last Admin: 12/03/22 18:09 Dose: Not Given Documented By: CHIRAG Sodium Bicarbonate (Sodium Bicarb 8.4% Inj 50 Meq/50 Ml Syr) Confirm Administered Dose 50 meq IV .STK-MED ONE Stop: 12/04/22 08:09 Last Admin: 12/04/22 09:55 Dose: 50 meq Documented By: ALLAN Sodium Bicarbonate (Sodium Bicarb 8.4% Inj 50 Meq/50 Ml Syr) 50 meq IV NOW STA Stop: 12/04/22 10:10 Last Admin: 12/04/22 10:29 Dose: Not Given Documented By: ALLAN Description This is a 21 electrode EEG with a single channel dedicated to limited EKG. The electrodes were placed in accordance with the International 10-20 system. The predominant background rhythm consist primarily polymorphic 6 Hz theta slowing, with intermittent 2-1/2 to 3 Hz delta. Photic stimulation is unremarkable. Hyperventilation not performed. There are intermittent triphasic waves. There is a symmetric frontal beta rhythm. There is no focal slowing. There is intermittent movement artifact. There are no epileptiform discharges. Interpretation Abnormal awake/drowsy EEG with evidence of a nonspecific encephalopathy of moderate severity. There are no epileptiform abnormalities. [facility] EEG Procedure Codes Indication for Procedure (1) Encephalopathy: Neurology Neurology: 96990 EEG include record awake & drowsy
[2022-12-06] MEDS: NUTREN LIQD 2.0 1,000 ML BAG PEG SCH (12:35)
[2022-12-06] MEDS: TUBE FEEDING WATER FLUSH PEG SCH ×4 (12:35→23:32)
[2022-12-06] MEDS: CEFEPIME 2,000 MG in SYRINGE 0 ML IV SCH ×2 (12:43→21:44)
--- NOTE | 2022-12-06 15:12 | Hospitalist Progress Note ---
Date of Service December 06, 2022 Assessment & Plan (1) Acute respiratory distress: Plan: 77-year-old male with past med significant for hyperlipidemia, hx of hypernatremia, recurrent aspiration pneumonia, COPD, vocal cord leukoplakia, dysphagia, history of severe epistaxis s/p sphenopalatine artery embolization, history of CAD, left bundle branch, hypertension, , severe protein energy malnutrition, sensorineural hearing loss, iron deficiency anemia, s/p PEG tube, s/p aortic valve replacement, s/p CABG, history of nasopharyngeal cancer s/p chemoradiation, recent history of COPD exacerbation secondary to Pseudomonas currently admitted to the ICU after ROSC achieved after cardiac arrest in the setting of acute respiratory distress and septic shock. Acute respiratory distress Acute on chronic respiratory failure with hypoxia and hypercapnia Acute COPD exacerbation Presented with shortness of breath and noted to be in acute respiratory failure secondary to COPD exacerbation and possible aspiration pneumonia Subsequently complained to have chest pain and required cardiopulmonary resuscitation as below Required intubation and placement in ICU Has been on Antibiotics IV meropenem Nebulized bronchodilator and steroid as below Appreciate senior painter input and recommendation Remains intubated and sedated Remains on conditional code and awaiting EEG to further evaluate management plan Discussed with the family members Septic shock Recurrent aspiration pneumonia Complicated by COPD exacerbation Currently on pressors Levophed and vasopressin-trying to wean off pressors as of this morning 12/06/2022 IV hydrocortisone Continue home midodrine Close monitoring in the ICU Appreciate critical care assistance Pressors have been taken off and blood pressure is maintaining Cardiac arrest with ROSC Postcardiac arrest History of CABG and bioprosthetic aortic valve replacement Presented with respiratory failure and following decompensation of the respiratory status chest pain and cardiac arrest was noted Required CPR and vasopressors with return of ROSC on 12/03 Seen by interventional cardiology for EKG changes thought mostly from septic shock Follow echocardiogram- showed LVH, grade 1 diastolic dysfunction, moderately dilated IVC, no wall motion abnormalities CTA chest- with no noted PE Appreciate cardiology input and recommendation Heart rate remains stable and blood pressure is holding without pressor resents History of chronic aspiration History of nasopharyngeal cancer s/p chemoradiation s/p PEG tube Malnutrition Has PEG tube hold tube feeds at this time, currently NPO in the ICU History of severe epistaxis s/p sphenopalatine artery embolization Diet: NPO currently, has PEG tube DVT prophylaxis: Heparin subcu Disposition: Currently in ICU CODE STATUS: Currently Conditional Code, no cpr but yes to intubation and mech vent Admission and Anticipated Discharge Date Admission Date: December 03, 2022 Subjective 12/06/2022 The patient was seen and examined in ICU in presence of the family members He remains intubated and critical Pressors have been taken away and the blood pressure is maintaining No acute distress at rest Will have EEG and further management depending on EEG results Review of Systems Review of Systems: Unobtainable due to endotracheal tube Physical Exam Physical Exam: Lying in bed, intubated and without any acute distress Constitutional: + acute distress; + not well nourished Eyes: normal visual [place] by confrontation Neck: trachea midline, no thyromegaly Respiratory: no respiratory distress Auscultation: + diminished lung sounds and + crackles (Occasional crackles at the bases) Cardiovascular: Rate/Rhythm: regular rate and regular rhythm Heart Sounds: normal S1 and normal S2; no murmur Extremities: + edema (Trace edema bilaterally) Gastrointestinal (Abdomen): Inspection/Auscultation: normal bowel sounds; abdomen not distended Percussion/Palpation: abdomen soft Neurologic: Remains sedated on mechanical ventilator Results & Data Results & Data Vital Signs (Past 12 Hours) Vital Signs Temp Pulse Resp BP Pulse Ox O2 Del Method FiO2 12/06/22 14:00 36.6 C 81 15 96 12/06/22 14:00 129/71 12/06/22 13:00 36.6 C 85 15 96 12/06/22 13:00 136/79 12/06/22 12:00 36.6 C 81 15 96 12/06/22 12:00 147/79 H 12/06/22 12:00 40 12/06/22 11:00 36.6 C 79 22 97 12/06/22 11:00 136/73 12/06/22 10:00 36.6 C 82 15 95 12/06/22 10:00 132/78 12/06/22 09:00 36.6 C 85 17 96 12/06/22 09:00 145/76 H 12/06/22 08:30 135/74 12/06/22 08:30 36.7 C 85 16 96 12/06/22 08:00 36.8 C 85 15 97 Mechanical Vent 40 12/06/22 08:00 146/77 H 12/06/22 07:15 36.9 C 74 14 94 12/06/22 07:15 139/70 12/06/22 07:00 36.9 C 70 28 H 94 12/06/22 08:00 40 12/06/22 08:00 Mechanical Vent 40 12/06/22 07:25 12 40 12/06/22 07:15 68 28 H 94 40 12/06/22 05:00 37.1 C 77 28 H 139/76 95 12/06/22 04:00 37.1 C 80 29 H 153/79 H 95 Mechanical Vent 12/06/22 04:00 40 12/06/22 03:00 36.9 C 81 28 H 138/82 96 Mechanical Vent Laboratory Results Short CBC 12/06/22 Range/Units 04:18 WBC 8.82 (4.8-10.8) K/ul Hgb 9.6 L (14.0-18.0) g/dl Hct 28.6 L (42.0-52.0) % Plt Count 80 L (130-400) K/uL BMP 12/06/22 04:18 Sodium 136 Potassium 3.6 Chloride 100 Carbon Dioxide 29 BUN 23 Creatinine 0.55 L Glucose 81 Calcium 8.3 L Medications Administered Current Inpatient Medications Albuterol (Albut/Ipratrop 3mg/0.5mg Neb 3 Ml Vial) 3 ml INH Q4 PRN; Protocol PRN Reason: Shortness Of Breath Stop: 01/02/23 20:55 Last Admin: 12/05/22 22:11 Dose: 3 ml Budesonide (Budesonide 0.25 Mg/2 Ml Vial (Pulmicort)) 0.25 mg NEB BIDR [facility] Stop: 01/03/23 19:59 Last Admin: 12/06/22 07:15 Dose: 0.25 mg Fentanyl Citrate (Fentanyl Citrate Pf 100 Mcg/2 Ml Vial) 50 mcg IV Q2H PRN PRN Reason: maintain rass -1 Stop: 12/20/22 09:41 Formoterol Fumarate (Formoterol 20 Mcg/2 Ml Vial) 20 mcg NEB BIDR [facility] Stop: 01/02/23 22:29 Last Admin: 12/06/22 07:15 Dose: 20 mcg Parenteral Electrolytes (Plasma-Lyte A Ph 7.4) 1,000 mls @ 110 mls/hr IV .Q9H6M [facility] Stop: 01/02/23 21:14 Last Admin: 12/06/22 06:37 Dose: 110 mls/hr Vasopressin 20 units/ Sodium (Chloride) 101 mls @ 0 mls/hr IV .Q0M ROYA Stop: 01/02/23 21:59 Last Infusion: 12/06/22 07:20 Dose: 0 unit/min, 0 mls/hr Acetaminophen (Ofirmev) 1,000 mg in 100 mls @ 400 mls/hr IV Q8H PRN PRN Reason: temp >38, pain Stop: 12/06/22 23:50 Norepinephrine Bitartrate (Levophed/D5w) 16 mg in 500 mls @ 0 mls/hr IV .Q0M ROYA; Protocol Stop: 01/03/23 05:59 Last Titration: 12/06/22 10:48 Dose: Infused Hydrocortisone Sodium (Succinate 50 mg/ Syringe) 1 mls @ 4 mls/min IV Q6H ROYA Stop: 12/07/22 08:29 Last Admin: 12/06/22 12:43 Dose: 4 mls/min Pantoprazole Sodium 40 mg/ (Syringe) 10 mls @ 5 mls/min IV DAILY@1100 [facility] Stop: 01/03/23 10:59 Last Admin: 12/06/22 10:29 Dose: 5 mls/min Cefepime HCl 2,000 mg/ Syringe 20 mls @ 5 mls/min IV Q8H [facility] Stop: 12/13/22 13:59 Last Admin: 12/06/22 12:43 Dose: 5 mls/min Midodrine (Midodrine Hcl 2.5 Mg Tab) 5 mg PO TID@0800,1200,1700 [facility] Stop: 01/05/23 07:59 Last Admin: 12/06/22 12:35 Dose: 5 mg Miscellaneous (Icu Electrolyte Replacement Protocol) 1 each N/A BID@06,18 [facility]; Protocol Stop: 12/11/22 05:59 Last Admin: 12/06/22 11:27 Dose: Not Given Multivitamins/Minerals (Multi Vit W/Minerals Liquid 15 Ml Udp) 15 ml PEG QAM [facility] Stop: 01/06/23 08:59 Nutritional Formula (Nutren Liqd 2.0 1,000 Ml Bag) 1,000 ml PEG .See Protocol ROYA; Protocol Stop: 01/05/23 11:59 Last Admin: 12/06/22 12:35 Dose: 1,000 ml Sterile Water (Tube Feeding Water Flush) 30 ml PEG Q4H ROYA Stop: 01/05/23 11:59 Last Admin: 12/06/22 12:35 Dose: 30 ml
[2022-12-06] MEDS: MAGNESIUM SULFATE / D5W 1 GM/100 ML BAG IV SCH ×2 (19:19→20:54)
[2022-12-06] MEDS ORDERED: METOPROLOL TARTRATE 1 MG/ML VIAL IV STA (22:36)
[2022-12-06] MEDS: fentaNYL citrate PF 100 MCG/2 ML VIAL IV PRN (22:56)
[2022-12-06 23:07] LABS: iSTAT Art Bld Gas pCO2 Correct 42 mmHg (35-46); iSTAT Arterial Blood Gas HCO3 28 meg/L (19-24); iSTAT Arterial Blood Gas pCO2 42 mmHg (35-46); iSTAT Arterial Blood Gas pH 7.43 (7.35-7.45); iSTAT Arterial Blood Gas pO2 65 mmHg (80-95); iSTAT Arterial Blood Gas pO2 C 66; iSTAT Carbon Dioxide 29 mmol/L (24-31); iSTAT FiO2 40 %; iSTAT Hematocrit 31 % (42-52); iSTAT Hemoglobin 10.5 g/dl (14.0-18.0); iSTAT Potassium 3.2 mmol/L (3.3-5.0); iSTAT Site Art Line; iSTAT Sodium 137 mmol/L (135-144)
[2022-12-06] MEDS: Double Conc; 16mg in 500mL IV SCH (23:29)
[2022-12-06 23:33] LABS: BUN Creatinine Ratio 44.8 (10-20); Calcium 8.1 mg/dl (8.6-10.3); Creatinine Clr Calc Pharmacy 94.4 ml/min; Est GFR (African American) 113.2 ml/min; Est GFR (Non-African American) 97.7 ml/min; Potassium 3.2 mmol/L (3.5-5.1)
[2022-12-06] MEDS ORDERED: POTASSIUM CHLORIDE 20 MEQ/15 ML UDC PO STA (23:35)
[2022-12-06] MEDS ORDERED: POTASSIUM CHLORIDE / WTR 20 MEQ/100 ML PLCT IV ONE (23:45)
--- NOTE | 2022-12-07 00:36 | Communication Note ---
Date of Service: December 07, 2022 Patient with noted axis change on ECG that was intermittent at first and became more sustained. Has previous history of LBB but this appears to have been when he had his CABG/and also with his AVR. Note of change to LBB with left axis shift with no negative effect on hemodynamics initially. Magnesium replaced and Potassium being replaced, Metoprolol 2.5 mg given with no effect on rhythm or hemodynamics, fentanyl was administered as he is very dyschronous with vent. This did revert back to normal axis and rhythm without STEMI appearance. This w as short lived < 1 hour effect and reverted back to LBB/aberrant rhythm. I then requested change vent to spont- he is doing well on CPAP with adequate MV with RR and VT, CO2 has not increased. Following change he reverted back to normal axis appearance rhythm. He is on low dose of Levophed to maintain MAPS >65. As this is intermittent and when he reverts back to his normal rythm there is no STEMI noted this is likely related to hypokalemia and/or stress of work of breathing. He is mildly more aware with raising of eyebrows to voice as well as blinking and more aware of ETT in mouth. Will check a HsCTNI however with this information if it were elevated would discuss with son prior to further plans/interventions. Rm ALEXANDER (ACNP-)
[2022-12-07 00:38] LABS: Troponin I High Sensitivity 34.2 pg/ml (0-20)
[2022-12-07] MEDS: PLASMA-LYTE A 1,000 ML IV SCH ×3 (01:22→19:23)
[2022-12-07 02:36] LABS: iSTAT Art Bld Gas pCO2 Correct 37 mmHg (35-46); iSTAT Art Bld Gas pH Corrected 7.503 (7.35-7.45); iSTAT Arterial Blood Gas HCO3 29 meg/L (19-24); iSTAT Arterial Blood Gas pCO2 37 mmHg (35-46); iSTAT Arterial Blood Gas pH 7.51 (7.35-7.45); iSTAT Arterial Blood Gas pO2 77 mmHg (80-95); iSTAT Arterial Blood Gas pO2 C 79; iSTAT Carbon Dioxide 30 mmol/L (24-31); iSTAT FiO2 40 %; iSTAT Hematocrit 29 % (42-52); iSTAT Hemoglobin 9.9 g/dl (14.0-18.0); iSTAT Potassium 3.7 mmol/L (3.3-5.0); iSTAT Site Art Line; iSTAT Sodium 137 mmol/L (135-144)
[2022-12-07] MEDS: TUBE FEEDING WATER FLUSH PEG SCH ×5 (03:04→19:49)
[2022-12-07] MEDS: HYDROCORTISONE SOD 50 MG in SYRINGE 0 ML IV SCH (03:05)
[2022-12-07 04:36] LABS: Albumin Level 2.6 gm/dl (3.4-5.0); BUN Creatinine Ratio 42.9 (10-20); Bilirubin,Total 0.5 mg/dl (0.2-1.0); Calcium 7.8 mg/dl (8.6-10.3); Creatinine Clr Calc Pharmacy 97.8 ml/min; Est GFR (African American) 114.8 ml/min; Est GFR (Non-African American) 99.1 ml/min; Globulin 2.7 gm/dl (2.5-4.0); Magnesium 2.4 mg/dl (1.7-2.4); Phosphorus 1.7 mg/dl (2.5-4.9); Potassium 3.5 mmol/L (3.5-5.1); Total Protein 5.3 gm/dl (6.0-8.3)
[2022-12-07 04:48] LABS: Basophils # (auto) 0.01 K/uL (0.00-0.20); Basophils % (auto) 0.1 %; Hematocrit (blood only) 29.8 % (42.0-52.0); Hemoglobin 10.1 g/dl (14.0-18.0); Immature Granulocytes # (auto) 0.05 K/uL (0.01-0.20); Immature Granulocytes % (auto) 0.4 %; Lymphocytes % (auto) 2.3 %; Mean Corpuscular Hemoglobin 31.2 pg (25.0-34.0); Mean Corpuscular Hgb Conc 33.9 g/dL (32.0-36.0); Mean Platelet Volume 11.8 fL (9.4-12.4); Monocytes # (auto) 0.52 K/uL (0.11-0.59); Monocytes % (auto) 3.9 %; Neutrophils # (auto) 12.42 K/uL (1.40-6.50); Neutrophils % (auto) 93.3 %; Platelet Count 85 K/uL (130-400); RDW Coefficient of Variation 15.1 % (11.5-14.5); RDW Standard Deviation 50.5 fL (36.4-46.3); Red Blood Count 3.24 M/uL (4.70-6.10)
[2022-12-07] MEDS ORDERED: POTASSIUM PHOS 3 MMOL/1 ML INFUSION IV STA (05:11)
[2022-12-07] MEDS ORDERED: STAT IV/IM STA (05:12)
[2022-12-07] MEDS: ICU ELECTROLYTE REPLACEMENT PROTOCOL SCH ×2 (05:23→14:36)
[2022-12-07] MEDS: CALCIUM GLUCONATE 10% 1,000 MG in SODIUM CHLOR 0.9% MINI-B 50 ML IV SCH ×2 (05:45→06:02)
[2022-12-07] MEDS: CEFEPIME 2,000 MG in SYRINGE 0 ML IV SCH ×3 (05:45→19:49)
[2022-12-07] MEDS ORDERED: POTASSIUM PHOSPHATE 18 MMOL in SODIUM CHLORIDE 0.9% 500 ML IV ONE (06:15)
[2022-12-07] MEDS: FORMOTEROL 20 MCG/2 ML VIAL NEB SCH ×2 (07:16→19:41)
[2022-12-07] MEDS: BUDESONIDE 0.25 MG/2 ML VIAL (PULMICORT) NEB SCH ×2 (07:16→19:41)
--- NOTE | 2022-12-07 07:28 | Critical Care Progress Note ---
Date of Service December 07, 2022 Assessment & Plan (1) Acute on chronic respiratory failure with hypoxia and hypercapnia: (2) Cardiac arrest: (3) Acute exacerbation of chronic obstructive pulmonary disease: (4) Septic shock: (5) Recurrent aspiration pneumonia: (6) CAD (coronary artery disease): Plan Reason Critically Ill: 77 YOM admitted to [facility] for progressive hypercarbic/hypoxic respiratory resulting in short course of cardiac arrest which appears to have been PEA and intubation with mechanical ventilation. Currently in shock likely septic from aspiration pneumonia requiring high dose vasopressors to maintain MAP. The patient has a history of chronic aspiration and resistant Pseudomonas colonization with bronchiectasis. Recommendations: Neuro -status postarrest. At risk for anoxic encephalopathy as well as metabolic encephalopathy. Clinically consistent with deep encephalopathy, ordered EEG today. Prognosis remains guarded. Cardiac - shock state: Resolved. -Wide-complex aberrancy: Resolved -EKG with premature atrial contractions: Check troponin, not consistent with acute ST elevation SC suspect mediated secondary to general critical illness Respiratory -acute on chronic hypoxemic and hypercarbic respiratory failure. Frequent aspiration, pseudomonal colonization -Discussed risks and benefits of extubation. Plan to continue pressure support ventilation GI -history of chronic aspiration with laryngeal cancer. PEG tube in place. Tube feeding proceed to goal RENAL/LYTES -mild hyponatremia: Resolved. - Sanchez to gravity- continue while intubated and sedated for accurate assessment of urinary output ENDO - glycemic control per protocol. Continue stress dose steroids for additional 24 hours. HEME -history of chronic anemia. Continue to follow at this point in time. No evidence of acute blood loss. Thrombocytopenia with the 50% decrease in platelet counts over the last 24 hours. Hold heparin and check PF4 antibody ID -Pseudomonas bronchiectasis. Effective day #5 switching from meropenem to cefepime received 3 days of meropenem anticipate 10 days total effective therapy LINES/IV ACCESS - CVL, Arterial line, ETT, OGT, Sanchez Catheter Continue use of these lines DVT PROPHYLAXIS - SCDS, holding heparin given thrombocytopenia CODE STATUS: Limited: Patient has baseline characteristics that are at high risk for poor outcome given cardiac arrest. Physiologic parameters continue to normalize however there is not significant improvement in his baseline mental status. Will discuss with the patient's son regarding goals of care, no heroic efforts in event of additional arrest. DISPO: ICU I have personally spent 50 minutes of critical care time in the direct management of this patient. This is a life/limb threatening event. This includes time spent evaluating patient, direct bedside care, chart review, placing orders, interpretation of diagnostic studies, discussion with consultants, patient, and/or family members regarding treatment decisions, as well as other required patient management activities. This time is exclusive of all separately billable procedures, and teaching time and separate from and in addition to any other critical care service time. Admission and Anticipated Discharge Date Admission Date: December 03, 2022 Subjective Overnight patient experienced episodes of wide-complex aberrancy. This improved with optimizing electrolytes, beta-blockade and arguably analgesia. Patient's spontaneous movements have improved and he was able to tolerate spontaneous mechanical ventilation for approximately 2 hours overnight. Required short course of vasoactives after administration of beta reggie which was given for wide complex rhythm. Review of Systems Review of Systems: Unobtainable due to endotracheal tube Physical Exam Physical Exam: General: Glascow Coma Scale: Eyes: 3, Verbal 1T, Motor 4: Withdraws lower extremities no movement of upper extremities, Total 8T Skin: Warm, dry, Head: Atraumatic Ears, nose, mouth and throat: airway patent Cardiovascular: Normal peripheral perfusion Respiratory: Coarse sounds bilaterally Gastrointestinal: Feeding tube present Musculoskeletal: No deformity Results & Data Results & Data Vital Signs (Past 12 Hours) Vital Signs Temp Pulse Resp BP Pulse Ox O2 Del Method FiO2 12/07/22 05:45 37.3 C 79 19 96 12/07/22 05:30 37.3 C 79 16 96 12/07/22 05:15 37.3 C 80 18 96 12/07/22 05:00 37.3 C 79 16 96 12/07/22 05:00 128/75 12/07/22 04:45 37.3 C 79 20 95 12/07/22 04:30 37.3 C 80 16 96 12/07/22 04:15 37.3 C 79 20 95 12/07/22 04:00 37.3 C 81 16 95 12/07/22 04:00 124/71 12/07/22 03:45 37.3 C 80 15 96 12/07/22 03:30 37.3 C 80 14 96 12/07/22 03:15 37.3 C 81 13 95 12/07/22 03:00 37.2 C 80 14 95 12/07/22 03:00 124/73 12/07/22 02:45 37.2 C 83 14 95 12/07/22 02:30 37.2 C 83 15 96 12/07/22 02:15 37.3 C 82 13 95 12/07/22 02:00 37.3 C 84 15 95 12/07/22 02:00 122/72 12/07/22 01:45 37.3 C 85 15 95 12/07/22 01:30 37.2 C 87 14 95 12/07/22 01:15 37.2 C 88 14 95 12/07/22 01:00 37.2 C 90 13 95 12/07/22 00:45 37.1 C 92 H 14 96 12/07/22 00:30 37.1 C 92 H 16 95 12/07/22 00:15 37.1 C 93 H 14 95 12/07/22 00:00 37.1 C 93 H 11 L 95 12/06/22 23:45 37.0 C 96 H 13 95 12/07/22 04:00 40 12/07/22 04:00 80 113/49 L 12/07/22 02:31 83 20 95 40 12/06/22 23:40 93 H 14 94 40 12/06/22 23:52 Mechanical Vent 40 12/06/22 23:52 94 H 121/53 L 12/06/22 23:52 94 H 12/06/22 23:30 37.0 C 97 H 13 94 12/06/22 23:15 37.1 C 93 H 13 92 12/06/22 23:00 96 H 82/51 L 12/06/22 23:01 37.1 C 81 14 92 12/06/22 23:01 113/62 12/06/22 23:00 37.1 C 82 14 94 12/06/22 22:47 92 H 154/71 H 12/06/22 22:01 37.2 C 90 21 96 12/06/22 22:00 37.2 C 88 17 168/78 H 95 12/06/22 21:00 37.2 C 84 17 123/73 96 12/06/22 20:00 37.1 C 82 18 128/74 95 12/06/22 22:11 100 H 28 H 94 40 12/06/22 20:00 40 12/06/22 20:43 83 26 H 96 40 12/06/22 19:40 Mechanical Vent 40 Critical Care Results & Data Vital Signs (Past 12 Hours) Vital Signs Temp Pulse Resp BP Pulse Ox O2 Del Method FiO2 12/07/22 11:00 37.3 C 84 19 96 12/07/22 11:00 150/85 H 12/07/22 10:00 37.3 C 79 19 95 12/07/22 10:00 127/73 12/07/22 09:44 84 18 94 40 12/07/22 09:00 37.3 C 82 17 96 12/07/22 09:00 139/78 12/07/22 08:00 37.2 C 82 17 95 40 12/07/22 08:00 140/74 12/07/22 08:00 40 12/07/22 08:00 Mechanical Vent 40 12/07/22 07:00 37.3 C 81 18 96 12/07/22 07:00 142/76 H 12/07/22 07:37 83 23 96 40 12/07/22 05:45 37.3 C 79 19 96 12/07/22 05:30 37.3 C 79 16 96 12/07/22 05:15 37.3 C 80 18 96 12/07/22 05:00 37.3 C 79 16 96 12/07/22 05:00 128/75 12/07/22 04:45 37.3 C 79 20 95 12/07/22 04:30 37.3 C 80 16 96 12/07/22 04:15 37.3 C 79 20 95 12/07/22 04:00 37.3 C 81 16 95 12/07/22 04:00 124/71 12/07/22 03:45 37.3 C 80 15 96 12/07/22 03:30 37.3 C 80 14 96 12/07/22 03:15 37.3 C 81 13 95 12/07/22 03:00 37.2 C 80 14 95 12/07/22 03:00 124/73 12/07/22 02:45 37.2 C 83 14 95 12/07/22 02:30 37.2 C 83 15 96 12/07/22 02:15 37.3 C 82 13 95 12/07/22 02:00 37.3 C 84 15 95 12/07/22 02:00 122/72 12/07/22 01:45 37.3 C 85 15 95 12/07/22 01:30 37.2 C 87 14 95 12/07/22 01:15 37.2 C 88 14 95 12/07/22 01:00 37.2 C 90 13 95 12/07/22 00:45 37.1 C 92 H 14 96 12/07/22 00:30 37.1 C 92 H 16 95 12/07/22 00:15 37.1 C 93 H 14 95 12/07/22 00:00 37.1 C 93 H 11 L 95 12/07/22 04:00 40 12/07/22 04:00 80 113/49 L 12/07/22 02:31 83 20 95 40 Lab & Micro Results (Past 24 Hours) RBC 3.24 M/uL (4.70-6.10) L 12/07/22 WBC 13.30 K/ul (4.8-10.8) H 12/07/22 Hgb 10.1 g/dl (14.0-18.0) L 12/07/22 Hct 29.8 % (42.0-52.0) L 12/07/22 MCV 92.0 fL (80.0-100.0) 12/07/22 MCH 31.2 pg (25.0-34.0) 12/07/22 MCHC 33.9 g/dL (32.0-36.0) 12/07/22 RDW Standard Deviation 50.5 fL (36.4-46.3) H 12/07/22 RDW Coefficient of Variation 15.1 % (11.5-14.5) H 12/07/22 Plt Count 85 K/uL (130-400) L 12/07/22 MPV 11.8 fL (9.4-12.4) 12/07/22 Neutrophils (%) (Auto) 93.3 % 12/07/22 Lymphocytes (%) (Auto) 2.3 % 12/07/22 Monocytes # (Auto) 0.52 K/uL (0.11-0.59) 12/07/22 Eosinophils # (Auto) 0.00 K/uL (0.00-0.50) 12/07/22 Immature Granulocyte % (Auto) 0.4 % 12/07/22 Neutrophils # (Auto) 12.42 K/uL (1.40-6.50) H 12/07/22 Lymphocytes # (Auto) 0.30 K/uL (1.20-3.40) L 12/07/22 Monocytes # (Auto) 0.52 K/uL (0.11-0.59) 12/07/22 Eosinophils # (Auto) 0.00 K/uL (0.00-0.50) 12/07/22 Basophils # (Auto) 0.01 K/uL (0.00-0.20) 12/07/22 Immature Granulocyte # (Auto) 0.05 K/uL (0.01-0.20) 3 Na 137 mmol/L (136-145) 12/07/22 K 3.5 mmol/L (3.5-5.1) 12/07/22 Cl 103 mmol/L (98-107) 12/07/22 CO2 28 mmol/L (21-32) 12/07/22 Anion Gap 6 (3-11) 12/07/22 BUN 24 mg/dl (6-23) H 12/07/22 Creatinine 0.56 mg/dl (0.6-1.4) L 12/07/22 Estimated GFR ( Amer) 114.8 ml/min 12/07/22 Estimated GFR (Non-Af Amer) 99.1 ml/min 12/07/22 BUN/Creatinine Ratio 42.9 (10-20) H 12/07/22 Glu 126 mg/dl (70-99(Fasting)) H 12/07/22 Ca 7.8 mg/dl (8.6-10.3) L 12/07/22 Phosphorus Level 1.7 mg/dl (2.5-4.9) L 12/07/22 Total Bilirubin 0.5 mg/dl (0.2-1.0) 12/07/22 AST 47 U/L (13-39) H 12/07/22 ALT 20 U/L (7-52) 12/07/22 Alkaline Phosphatase 90 U/L (34-104) 12/07/22 TP 5.3 gm/dl (6.0-8.3) L 12/07/22 Albumin 2.6 gm/dl (3.4-5.0) L 12/07/22 Globulin 2.7 gm/dl (2.5-4.0) 12/07/22 Albumin/Globulin Ratio 1.0 (0.9-2) 12/07/22 Mg 2.4 mg/dl (1.7-2.4) 12/07/22 03:55 Calcium Level 7.8 mg/dl (8.6-10.3) L 12/07/22 03:55 Reed Test NA 12/07/22 02:19 Microbiology 12/03/22 20:03 Gram Stain - Final Sputum,Vent Suction Sputum Culture - Final Pseudomonas aeruginosa Diagnostic Findings (Past 24 Hours) Chest X-Ray 12/07/22 07:00 XR chest 1V portable HISTORY: Respiratory failure. COMPARISON: Chest 12/06/2022. FINDINGS: Endotracheal tube terminates approximately 3.2 cm from the steven. This remains unchanged. There are poststernotomy changes. No pneumothorax. Small right and trace left pleural effusions are noted. The cardiac silhouette is normal in size. There is diffuse interstitial thickening and a patchy right basilar density. This has slightly progressed in the interval and may represent worsening pulmonary edema or superimposed pneumonia. IMPRESSION: 1. Satisfactory support line placement. 2. Diffuse interstitial thickening with a small right pleural effusion and patchy right basilar density. This has slightly progressed and may represent worsening pulmonary edema or a superimposed pneumonia. ACT 112: Negative or not required by law. Electronically signed by: Ritesh Quevedo M.D. 12/07/2022 7:58 AM I & O Totals 24 Hours 12/06/22 12/07/22 12/08/22 06:59 06:59 06:59 Intake Total 4551.202 / 4551.202 3241.272 / 3241.272 1177.833 / 1177.833 Output Total 2460 / 2460 1555 / 1555 250 / 250 Balance 2091.202 / 2091.202 1686.272 / 1686.272 927.833 / 927.833 Cumulative 12/03/22 17:11 thru 12/07/22 10:00 Intake Total 86472.469 Output Total 8471 Balance 07030.469 RT Ventilator Mngmt (Last Documented) Ventilator Ordered Settings Ventilator Support Mode CPAP 12/07/22 09:44 Respiratory Rate 19 12/07/22 11:00 Ventilator Tidal Volume 380 12/07/22 08:00 Setting Minute Ventilation 9.2 12/07/22 09:44 Ventilator Positive Pressure 5 12/07/22 09:44 Support Setting Positive End Expiratory 5 12/07/22 09:44 Pressure Fraction of Inspired Oxygen 40 12/07/22 09:44 Machine Comment hi lo suction wasn't on 12/07/22 07:37 Ventilator - PT Measurements Respiratory Rate 19 Exhaled Tidal Volume 570 Minute Ventilation 9.2 Peak Inspiratory Airway 14 Pressure Plateau Pressure 17 Respiratory Cycle Inspiratory: 1:2.3 Expiratory Ratio Inspiratory Phase Time 1.0 End-Tidal CO2 26 Static Lung Compliance 31.67 Dynamic Lung Compliance 63.33 Normal Static Lung Compliance 49.00 Patient Measurements Comment back to full vent post ABG per [employer] request Coding Level of Care Code 94778 CRITICAL CARE 1ST 30-74M Diagnoses Acute on chronic respiratory failure with hypoxia and hypercapnia J96.21; J96.22 Cardiac arrest I46.9 Acute exacerbation of chronic obstructive pulmonary disease J44.1 Septic shock A41.9; R65.21 Recurrent aspiration pneumonia J69.0 CAD (coronary artery disease) I25.10
[2022-12-07] MEDS: Double Conc; 16mg in 500mL IV SCH (07:41)
--- NOTE | 2022-12-07 07:59 | XRay Report ---
XR chest 1V portable HISTORY: Respiratory failure. COMPARISON: Chest 12/06/2022. FINDINGS: Endotracheal tube terminates approximately 3.2 cm from the steven. This remains unchanged. There are poststernotomy changes. No pneumothorax. Small right and trace left pleural effusions are n oted. The cardiac silhouette is normal in size. There is diffuse interstitial thickening and a patchy right basilar density. This has slightly progressed in the interval and may represent worsening pulm onary edema or superimposed pneumonia. IMPRESSION: 1. Satisfactory support line placement. 2. Diffuse interstitial thickening with a small right pleural effusion and patchy right basilar densi ty. This has slightly progressed and may represent worsening pulmonary edema or a superimposed pneumo jemima. ACT 112: Negative or not required by law. Electronically signed by: Ritesh Quevedo M.D. 12/07/2022 7:58 AM
--- NOTE | 2022-12-07 08:02 | Electrocardiogram Report ---
Test Reason : Blood Pressure : / mmHG Vent. Rate : 099 BPM Atrial Rate : 099 BPM P-R Int : 172 ms QRS Dur : 138 ms QT Int : 422 ms P-R-T Axes : 075 -65 100 degrees QTc Int : 541 ms Sinus rhythm with Fusion complexes Left axis deviation Left bundle branch block Abnormal ECG When compared with ECG of 03-DEC-2022 18:34, Fusion complexes are now Present Left bundle branch block is now Present Confirmed by Figueroa Correa ([id number]) on 12/07/2022 8:01:56 AM Referred By: REFERRED SELF Confirmed By:Davonte Correa
[2022-12-07] MEDS: MIDODRINE HCL 2.5 MG TAB PO SCH ×3 (08:25→14:36)
[2022-12-07] MEDS: MULTI VIT W/MINERALS LIQUID 15 ML UDP PEG SCH (08:25)
[2022-12-07] MEDS: PANTOprazole 40 MG in SYRINGE 0 ML IV SCH (09:58)
[2022-12-07] MEDS ORDERED: POTASSIUM CHLORIDE 20 MEQ/15 ML UDC PO ONE (10:00)
--- NOTE | 2022-12-07 13:58 | Hospitalist Progress Note ---
Date of Service December 07, 2022 Assessment & Plan (1) Acute respiratory distress: Plan: 77-year-old male with past med significant for hyperlipidemia, hx of hypernatremia, recurrent aspiration pneumonia, COPD, vocal cord leukoplakia, dysphagia, history of severe epistaxis s/p sphenopalatine artery embolization, history of CAD, left bundle branch, hypertension, , severe protein energy malnutrition, sensorineural hearing loss, iron deficiency anemia, s/p PEG tube, s/p aortic valve replacement, s/p CABG, history of nasopharyngeal cancer s/p chemoradiation, recent history of COPD exacerbation secondary to Pseudomonas currently admitted to the ICU after ROSC achieved after cardiac arrest in the setting of acute respiratory distress and septic shock. Acute respiratory distress Acute on chronic respiratory failure with hypoxia and hypercapnia Acute COPD exacerbation Presented with shortness of breath and noted to be in acute respiratory failure secondary to COPD exacerbation and possible aspiration pneumonia Subsequently complained to have chest pain and required cardiopulmonary resuscitation as below Required intubation and placement in ICU Has been on Antibiotics IV meropenem Nebulized bronchodilator and steroid as below Appreciate bottle inspector input and recommendation Remains intubated and sedated Remains on conditional code and awaiting EEG to further evaluate management plan Discussed with the family members Remains stable but critical EEG showed evidence of normal specific encephalopathy of moderate severity Discussed with the bottle inspector-likely planned extubation sometime later after discussion with the family members Septic shock Recurrent aspiration pneumonia Complicated by COPD exacerbation Currently on pressors Levophed and vasopressin-trying to wean off pressors as of this morning 12/06/2022 IV hydrocortisone Continue home midodrine Close monitoring in the ICU Appreciate critical care assistance Pressors have been taken off and blood pressure is maintaining Still requiring low-dose Levophed to maintain blood pressure Cardiac arrest with ROSC Postcardiac arrest History of CABG and bioprosthetic aortic valve replacement Presented with respiratory failure and following decompensation of the respiratory status chest pain and cardiac arrest was noted Required CPR and vasopressors with return of ROSC on 12/03 Seen by interventional cardiology for EKG changes thought mostly from septic shock Follow echocardiogram- showed LVH, grade 1 diastolic dysfunction, moderately dilated IVC, no wall motion abnormalities CTA chest- with no noted PE Appreciate cardiology input and recommendation Heart rate remains stable and blood pressure is holding without pressor resents History of chronic aspiration History of nasopharyngeal cancer s/p chemoradiation s/p PEG tube Malnutrition Has PEG tube hold tube feeds at this time, currently NPO in the ICU History of severe epistaxis s/p sphenopalatine artery embolization Diet: NPO currently, has PEG tube DVT prophylaxis: Heparin subcu Disposition: Currently in ICU CODE STATUS: Currently Conditional Code, no cpr but yes to intubation and mech vent Discussed with the family members and they are agreeable with the current management Admission and Anticipated Discharge Date Admission Date: December 03, 2022 Subjective 12/06/2022 The patient was seen and examined in ICU in presence of the family members He remains intubated and critical Pressors have been taken away and the blood pressure is maintaining No acute distress at rest Will have EEG and further management depending on EEG results 12/07/2022 The patient was seen and examined in ICU in presence of family member He has been stable but critical Remains sedated on vent Review of Systems Review of Systems: Unobtainable due to endotracheal tube Physical Exam Physical Exam: Lying in bed, intubated and without any acute distress Constitutional: + acute distress; + not well nourished Eyes: normal visual [place] by confrontation Neck: trachea midline, no thyromegaly Respiratory: no respiratory distress Auscultation: + diminished lung sounds and + crackles (Occasional crackles at the bases) Cardiovascular: Rate/Rhythm: regular rate and regular rhythm Heart Sounds: normal S1 and normal S2; no murmur Extremities: + edema (Trace edema bilaterally) Gastrointestinal (Abdomen): Inspection/Auscultation: normal bowel sounds; abdomen not distended Percussion/Palpation: abdomen soft Neurologic: Sedated on vent Results & Data Results & Data Vital Signs (Past 12 Hours) Vital Signs Temp Pulse Resp BP Pulse Ox O2 Del Method FiO2 12/07/22 13:00 37.6 C H 80 23 96 12/07/22 13:00 140/78 12/07/22 12:00 37.5 C 82 20 96 12/07/22 12:00 147/82 H 12/07/22 12:00 40 12/07/22 11:00 37.3 C 84 19 96 12/07/22 11:00 150/85 H 12/07/22 10:00 37.3 C 79 19 95 12/07/22 10:00 127/73 12/07/22 09:44 84 18 94 40 12/07/22 09:00 37.3 C 82 17 96 12/07/22 09:00 139/78 12/07/22 08:00 37.2 C 82 17 95 40 12/07/22 08:00 140/74 12/07/22 08:00 40 12/07/22 08:00 Mechanical Vent 40 12/07/22 07:00 37.3 C 81 18 96 12/07/22 07:00 142/76 H 12/07/22 07:37 83 23 96 40 12/07/22 05:45 37.3 C 79 19 96 12/07/22 05:30 37.3 C 79 16 96 12/07/22 05:15 37.3 C 80 18 96 12/07/22 05:00 37.3 C 79 16 96 12/07/22 05:00 128/75 12/07/22 04:45 37.3 C 79 20 95 12/07/22 04:30 37.3 C 80 16 96 12/07/22 04:15 37.3 C 79 20 95 12/07/22 04:00 37.3 C 81 16 95 12/07/22 04:00 124/71 12/07/22 03:45 37.3 C 80 15 96 12/07/22 03:30 37.3 C 80 14 96 12/07/22 03:15 37.3 C 81 13 95 12/07/22 03:00 37.2 C 80 14 95 12/07/22 03:00 124/73 12/07/22 02:45 37.2 C 83 14 95 12/07/22 02:30 37.2 C 83 15 96 12/07/22 02:15 37.3 C 82 13 95 12/07/22 02:00 37.3 C 84 15 95 12/07/22 02:00 122/72 12/07/22 04:00 40 12/07/22 04:00 80 113/49 L 12/07/22 02:31 83 20 95 40 Laboratory Results Short CBC 12/07/22 Range/Units 03:55 WBC 13.30 H (4.8-10.8) K/ul Hgb 10.1 L (14.0-18.0) g/dl Hct 29.8 L (42.0-52.0) % Plt Count 85 L (130-400) K/uL BMP 12/06/22 12/07/22 23:00 03:55 Sodium 137 137 Potassium 3.2 L 3.5 Chloride 101 103 Carbon Dioxide 28 28 BUN 26 H 24 H Creatinine 0.58 L 0.56 L Glucose 123 H 126 H Calcium 8.1 L 7.8 L Liver Function 12/07/22 Range/Units 03:55 Total Bilirubin 0.5 (0.2-1.0) mg/dl AST 47 H (13-39) U/L ALT 20 (7-52) U/L Alkaline Phosphatase 90 (34-104) U/L Albumin 2.6 L (3.4-5.0) gm/dl Medications Administered Current Inpatient Medications Albuterol (Albut/Ipratrop 3mg/0.5mg Neb 3 Ml Vial) 3 ml INH Q4 PRN; Protocol PRN Reason: Shortness Of Breath Stop: 01/02/23 20:55 Last Admin: 12/05/22 22:11 Dose: 3 ml Budesonide (Budesonide 0.25 Mg/2 Ml Vial (Pulmicort)) 0.25 mg NEB BIDR [facility] Stop: 01/03/23 19:59 Last Admin: 12/07/22 07:16 Dose: 0.25 mg Fentanyl Citrate (Fentanyl Citrate Pf 100 Mcg/2 Ml Vial) 50 mcg IV Q2H PRN PRN Reason: maintain rass -1 Stop: 12/20/22 09:41 Last Admin: 12/06/22 22:56 Dose: 50 mcg Formoterol Fumarate (Formoterol 20 Mcg/2 Ml Vial) 20 mcg NEB BIDR [facility] Stop: 01/02/23 22:29 Last Admin: 12/07/22 07:16 Dose: 20 mcg Parenteral Electrolytes (Plasma-Lyte A Ph 7.4) 1,000 mls @ 110 mls/hr IV .Q9H6M [facility] Stop: 01/02/23 21:14 Last Admin: 12/07/22 09:59 Dose: 110 mls/hr Vasopressin 20 units/ Sodium (Chloride) 101 mls @ 0 mls/hr IV .Q0M [facility] Stop: 01/02/23 21:59 Last Infusion: 12/06/22 07:20 Dose: 0 unit/min, 0 mls/hr Norepinephrine Bitartrate (Levophed/D5w) 16 mg in 500 mls @ 0 mls/hr IV .Q0M [facility]; Protocol Stop: 01/03/23 05:59 Last Admin: 12/07/22 07:41 Dose: Not Given Pantoprazole Sodium 40 mg/ (Syringe) 10 mls @ 5 mls/min IV DAILY@1100 [facility] Stop: 01/03/23 10:59 Last Admin: 12/07/22 09:58 Dose: 5 mls/min Cefepime HCl 2,000 mg/ Syringe 20 mls @ 5 mls/min IV Q8H [facility] Stop: 12/13/22 13:59 Last Admin: 12/07/22 05:45 Dose: 5 mls/min Midodrine (Midodrine Hcl 2.5 Mg Tab) 5 mg PO TID@0800,1200,1700 [facility] Stop: 01/05/23 07:59 Last Admin: 12/07/22 11:00 Dose: 5 mg Miscellaneous (Icu Electrolyte Replacement Protocol) 1 each N/A BID@06,18 [facility]; Protocol Stop: 12/11/22 05:59 Last Admin: 12/07/22 05:23 Dose: Not Given Multivitamins/Minerals (Multi Vit W/Minerals Liquid 15 Ml Udp) 15 ml PEG QAM [facility] Stop: 01/06/23 08:59 Last Admin: 12/07/22 08:25 Dose: 15 ml Nutritional Formula (Nutren Liqd 2.0 1,000 Ml Bag) 1,000 ml PEG .See Protocol ROYA; Protocol Stop: 01/05/23 11:59 Last Admin: 12/06/22 12:35 Dose: 1,000 ml Sterile Water (Tube Feeding Water Flush) 30 ml PEG Q4H [facility] Stop: 01/05/23 11:59 Last Admin: 12/07/22 09:58 Dose: 30 ml
[2022-12-08] MEDS: TUBE FEEDING WATER FLUSH PEG SCH ×3 (00:15→08:19)
[2022-12-08] MEDS: NUTREN LIQD 2.0 1,000 ML BAG PEG SCH (03:53)
[2022-12-08] MEDS: PLASMA-LYTE A 1,000 ML IV SCH (04:25)
[2022-12-08 05:31] LABS: Calcium 7.5 mg/dl (8.6-10.3); Creatinine Clr Calc Pharmacy 124.9 ml/min; Est GFR (African American) 126.8 ml/min; Est GFR (Non-African American) 109.4 ml/min; Potassium 3.5 mmol/L (3.5-5.1)
[2022-12-08 05:38] LABS: Phosphorus 1.1 mg/dl (2.5-4.9)
[2022-12-08] MEDS ORDERED: POTASSIUM PHOS 3 MMOL/1 ML INFUSION IV STA (05:43)
[2022-12-08] MEDS: ICU ELECTROLYTE REPLACEMENT PROTOCOL SCH (05:49)
[2022-12-08] MEDS ORDERED: POTASSIUM CHLORIDE 20 MEQ/15 ML UDC PO STA (06:00)
[2022-12-08] MEDS: CEFEPIME 2,000 MG in SYRINGE 0 ML IV SCH (06:08)
[2022-12-08] MEDS: MAGNESIUM SULFATE / D5W 1 GM/100 ML BAG IV SCH ×2 (06:08→08:16)
[2022-12-08] MEDS ORDERED: POTASSIUM PHOSPHATE 24 MMOL in SODIUM CHLORIDE 0.9% 500 ML IV ONE (06:15)
--- NOTE | 2022-12-08 07:17 | Critical Care Progress Note ---
Date of Service December 08, 2022 Assessment & Plan (1) Acute on chronic respiratory failure with hypoxia and hypercapnia: (2) Cardiac arrest: (3) Acute exacerbation of chronic obstructive pulmonary disease: (4) Septic shock: (5) Recurrent aspiration pneumonia: (6) CAD (coronary artery disease): Plan Reason Critically Ill: 77 YOM admitted to [facility] for progressive hypercarbic/hypoxic respiratory resulting in short course of cardiac arrest which appears to have been PEA and intubation with mechanical ventilation. Currently in shock likely septic from aspiration pneumonia requiring high dose vasopressors to maintain MAP. The patient has a history of chronic aspiration and resistant Pseudomonas colonization with bronchiectasis. Recommendations: Neuro -status postarrest. Encephalopathy: Presumptively hypoxic Cardiac - shock state: Resolved. -Wide-complex aberrancy: Resolved -EKG with premature atrial contractions: Check troponin, not consistent with acute ST elevation HI suspect mediated secondary to general critical illness Respiratory -acute on chronic hypoxemic and hypercarbic respiratory failure. Frequent aspiration, pseudomonal colonization -Transitioning to comfort care and proceeding with terminal extubation GI -history of chronic aspiration with laryngeal cancer. PEG tube in place. Discontinue tube feeds RENAL/LYTES -mild hyponatremia: Resolved. Hypophosphatemia: Repleting from overnight orders - Sanchez to gravity- HEME -history of chronic anemia. PF4 antibody assay below reference range ID -Pseudomonas bronchiectasis. Discontinuing anti-infectives LINES/IV ACCESS - CVL, Arterial line, ETT, OGT, Sanchez Catheter DVT PROPHYLAXIS - SCDS, holding heparin given thrombocytopenia CODE STATUS: DNR, transition to comfort care DISPO: Comfort care: I anticipate the patient will cease to breathe within the next 72 hours. Stable for downgrade out of ICU, currently undergoing expectant management Admission and Anticipated Discharge Date Admission Date: December 03, 2022 Subjective No overnight events, patient became acutely hypotensive this morning without clear etiology, labs and ABG had been reviewed. From discussion with son at the bedside as we were discussing goals of care previously. Decision was made to not institute vasoactive medications and proceed with terminal extubation and comfort care. Physical Exam Physical Exam: General: Glascow Coma Scale: 1, Verbal 1T, Motor 4 of bilateral lower extremities upper extremities he is unresponsive, Total 6T Pupils are round and sluggishly reactive to light, no significant startle with loud clapping: Noxious auditory stimuli Skin: Warm, dry, Head: Atraumatic Ears, nose, mouth and throat: airway patent Cardiovascular: Normal peripheral perfusion Respiratory: Coarse sounds bilaterally Gastrointestinal: Feeding tube present Musculoskeletal: No deformity Results & Data Results & Data Vital Signs (Past 12 Hours) Vital Signs Temp Pulse Pulse Resp BP Pulse Ox O2 Del Method 12/08/22 06:01 126/84 12/08/22 06:01 36.8 C 72 20 98 12/08/22 06:00 36.8 C 72 20 98 12/08/22 05:01 194/103 H 12/08/22 05:00 37.0 C 79 20 98 12/08/22 04:02 37.1 C 76 19 97 12/08/22 04:01 157/83 H 12/08/22 04:00 37.1 C 80 22 98 12/08/22 04:00 12/08/22 04:00 75 161/64 H 12/08/22 03:10 75 20 97 12/08/22 03:00 37.1 C 73 18 97 12/08/22 03:00 157/83 H 12/08/22 02:00 37.1 C 77 16 97 12/08/22 02:00 147/82 H 12/08/22 01:00 37.1 C 79 20 97 12/08/22 01:00 155/88 H 12/08/22 00:00 37.1 C 78 19 98 12/08/22 00:00 170/93 H 12/07/22 23:00 37.1 C 74 18 98 12/07/22 23:00 162/83 H 12/08/22 00:00 12/08/22 00:00 75 174/68 H 12/08/22 00:00 72 12/07/22 22:40 37.1 C 79 20 98 12/07/22 22:40 173/90 H 12/07/22 22:00 37.2 C 76 20 98 12/07/22 22:00 161/84 H 12/07/22 21:00 37.2 C 75 21 97 12/07/22 21:00 156/80 H 12/07/22 22:32 79 21 98 12/07/22 21:09 CPAP, Mechanical Vent 12/07/22 20:00 37.2 C 78 20 96 12/07/22 20:00 148/74 H 12/07/22 20:00 12/07/22 20:00 77 177/65 H 12/07/22 19:43 75 21 96 Mechanical Vent 12/07/22 19:43 73 21 96 FiO2 12/08/22 06:01 12/08/22 06:01 12/08/22 06:00 12/08/22 05:01 12/08/22 05:00 12/08/22 04:02 12/08/22 04:01 12/08/22 04:00 12/08/22 04:00 40 12/08/22 04:00 12/08/22 03:10 40 12/08/22 03:00 12/08/22 03:00 12/08/22 02:00 12/08/22 02:00 12/08/22 01:00 12/08/22 01:00 12/08/22 00:00 12/08/22 00:00 12/07/22 23:00 12/07/22 23:00 12/08/22 00:00 40 12/08/22 00:00 12/08/22 00:00 12/07/22 22:40 12/07/22 22:40 12/07/22 22:00 12/07/22 22:00 12/07/22 21:00 12/07/22 21:00 12/07/22 22:32 40 12/07/22 21:09 40 12/07/22 20:00 12/07/22 20:00 12/07/22 20:00 40 12/07/22 20:00 12/07/22 19:43 40 12/07/22 19:43 40 Critical Care Results & Data Vital Signs (Past 12 Hours) Vital Signs Temp Pulse Pulse Resp BP Pulse Ox O2 Del Method 12/08/22 06:01 126/84 12/08/22 06:01 36.8 C 72 20 98 12/08/22 06:00 36.8 C 72 20 98 12/08/22 05:01 194/103 H 12/08/22 05:00 37.0 C 79 20 98 12/08/22 04:02 37.1 C 76 19 97 12/08/22 04:01 157/83 H 12/08/22 04:00 37.1 C 80 22 98 12/08/22 04:00 12/08/22 04:00 75 161/64 H 12/08/22 03:10 75 20 97 12/08/22 03:00 37.1 C 73 18 97 12/08/22 03:00 157/83 H 12/08/22 02:00 37.1 C 77 16 97 12/08/22 02:00 147/82 H 12/08/22 01:00 37.1 C 79 20 97 12/08/22 01:00 155/88 H 12/08/22 00:00 37.1 C 78 19 98 12/08/22 00:00 170/93 H 12/07/22 23:00 37.1 C 74 18 98 12/07/22 23:00 162/83 H 12/08/22 00:00 12/08/22 00:00 75 174/68 H 12/08/22 00:00 72 12/07/22 22:40 37.1 C 79 20 98 12/07/22 22:40 173/90 H 12/07/22 22:00 37.2 C 76 20 98 12/07/22 22:00 161/84 H 12/07/22 21:00 37.2 C 75 21 97 12/07/22 21:00 156/80 H 12/07/22 22:32 79 21 98 12/07/22 21:09 CPAP, Mechanical Vent 12/07/22 20:00 37.2 C 78 20 96 12/07/22 20:00 148/74 H 12/07/22 20:00 12/07/22 20:00 77 177/65 H 12/07/22 19:43 75 21 96 Mechanical Vent 12/07/22 19:43 73 21 96 FiO2 12/08/22 06:01 12/08/22 06:01 12/08/22 06:00 12/08/22 05:01 12/08/22 05:00 12/08/22 04:02 12/08/22 04:01 12/08/22 04:00 12/08/22 04:00 40 12/08/22 04:00 12/08/22 03:10 40 12/08/22 03:00 12/08/22 03:00 12/08/22 02:00 12/08/22 02:00 12/08/22 01:00 12/08/22 01:00 12/08/22 00:00 12/08/22 00:00 12/07/22 23:00 12/07/22 23:00 12/08/22 00:00 40 12/08/22 00:00 12/08/22 00:00 12/07/22 22:40 12/07/22 22:40 12/07/22 22:00 12/07/22 22:00 12/07/22 21:00 12/07/22 21:00 12/07/22 22:32 40 12/07/22 21:09 40 12/07/22 20:00 12/07/22 20:00 12/07/22 20:00 40 12/07/22 20:00 12/07/22 19:43 40 12/07/22 19:43 40 Lab & Micro Results (Past 24 Hours) No Data to Display Na 138 mmol/L (136-145) 12/08/22 K 3.5 mmol/L (3.5-5.1) 12/08/22 Cl 104 mmol/L (98-107) 12/08/22 CO2 31 mmol/L (21-32) 12/08/22 Anion Gap 3 (3-11) 12/08/22 BUN 22 mg/dl (6-23) 12/08/22 Creatinine 0.44 mg/dl (0.6-1.4) L 12/08/22 Estimated GFR ( Amer) 126.8 ml/min 12/08/22 Estimated GFR (Non-Af Amer) 109.4 ml/min 12/08/22 BUN/Creatinine Ratio 50.0 (10-20) H 12/08/22 Glu 108 mg/dl (70-99(Fasting)) H 12/08/22 Ca 7.5 mg/dl (8.6-10.3) L 12/08/22 Phosphorus Level 1.1 mg/dl (2.5-4.9) L* 12/08/22 Mg 2.0 mg/dl (1.7-2.4) 12/08/22 04:51 Calcium Level 7.5 mg/dl (8.6-10.3) L 12/08/22 04:51 Reed Test NA 12/08/22 08:05 Diagnostic Findings (Past 24 Hours) Chest X-Ray 12/07/22 07:00 XR chest 1V portable HISTORY: Respiratory failure. COMPARISON: Chest 12/06/2022. FINDINGS: Endotracheal tube terminates approximately 3.2 cm from the steven. This remains unchanged. There are poststernotomy changes. No pneumothorax. Small right and trace left pleural effusions are noted. The cardiac silhouette is normal in size. There is diffuse interstitial thickening and a patchy right basilar density. This has slightly progressed in the interval and may represent worsening pulmonary edema or superimposed pneumonia. IMPRESSION: 1. Satisfactory support line placement. 2. Diffuse interstitial thickening with a small right pleural effusion and patchy right basilar density. This has slightly progressed and may represent worsening pulmonary edema or a superimposed pneumonia. ACT 112: Negative or not required by law. Electronically signed by: Ritesh Quevedo M.D. 12/07/2022 7:58 AM I & O Totals 24 Hours 12/07/22 12/08/22 12/09/22 06:59 06:59 06:59 Intake Total 3241.272 / 3241.272 4587.500 / 4587.500 Output Total 1555 / 1555 1732 / 1732 Balance 1686.272 / 7257.171 0353.500 / 2855.500 Cumulative 12/03/22 17:11 thru 12/08/22 06:00 Intake Total 98873.136 Output Total 9953 Balance 77046.136 RT Ventilator Mngmt (Last Documented) Ventilator Ordered Settings Ventilator Support Mode CPAP 12/08/22 04:00 Respiratory Rate 20 12/08/22 06:01 Ventilator Tidal Volume 380 12/07/22 08:00 Setting Minute Ventilation 9 12/08/22 03:10 Ventilator Positive Pressure 5 12/08/22 04:00 Support Setting Positive End Expiratory 5 12/08/22 04:00 Pressure Fraction of Inspired Oxygen 40 12/08/22 04:00 Machine Comment hi lo suction wasn't on 12/07/22 07:37 Ventilator - PT Measurements Respiratory Rate 20 Exhaled Tidal Volume 498 Minute Ventilation 9 Peak Inspiratory Airway 11 Pressure Plateau Pressure 17 Respiratory Cycle Inspiratory: 1:2.3 Expiratory Ratio Inspiratory Phase Time 1.0 End-Tidal CO2 28 Static Lung Compliance 31.67 Dynamic Lung Compliance 83.00 Normal Static Lung Compliance 49.00 Patient Measurements Comment back to full vent post ABG per [facility] request Coding Level of Care Code 50567 SUB INP/OBS CARE 350MIN Diagnoses Acute on chronic respiratory failure with hypoxia and hypercapnia J96.21; J96.22 Cardiac arrest I46.9 Acute exacerbation of chronic obstructive pulmonary disease J44.1 Septic shock A41.9; R65.21 Recurrent aspiration pneumonia J69.0 CAD (coronary artery disease) I25.10
[2022-12-08] MEDS: BUDESONIDE 0.25 MG/2 ML VIAL (PULMICORT) NEB SCH (07:58)
[2022-12-08] MEDS: FORMOTEROL 20 MCG/2 ML VIAL NEB SCH (07:59)
[2022-12-08] MEDS: fentaNYL citrate PF 100 MCG/2 ML VIAL IV PRN (08:16)
[2022-12-08] MEDS: MIDODRINE HCL 2.5 MG TAB PO SCH (08:18)
[2022-12-08] MEDS: MULTI VIT W/MINERALS LIQUID 15 ML UDP PEG SCH (08:20)
[2022-12-08 08:26] LABS: iSTAT Art Bld Gas pCO2 Correct 42 mmHg (35-46); iSTAT Art Bld Gas pH Corrected 7.468 (7.35-7.45); iSTAT Arterial Blood Gas HCO3 30 meg/L (19-24); iSTAT Arterial Blood Gas pCO2 42 mmHg (35-46); iSTAT Arterial Blood Gas pH 7.47 (7.35-7.45); iSTAT Arterial Blood Gas pO2 75 mmHg (80-95); iSTAT Arterial Blood Gas pO2 C 74; iSTAT Carbon Dioxide 31 mmol/L (24-31); iSTAT FiO2 40 %; iSTAT Hematocrit 33 % (42-52); iSTAT Hemoglobin 11.2 g/dl (14.0-18.0); iSTAT Potassium 4.2 mmol/L (3.3-5.0); iSTAT Site Art Line; iSTAT Sodium 139 mmol/L (135-144)
--- NOTE | 2022-12-08 08:59 | Electrocardiogram Report ---
Test Reason : Blood Pressure : / mmHG Vent. Rate : 080 BPM Atrial Rate : 080 BPM P-R Int : 154 ms QRS Dur : 086 ms QT Int : 384 ms P-R-T Axes : 053 052 056 degrees QTc Int : 442 ms Sinus rhythm with Premature atrial complexes Low voltage QRS Borderline ECG When compared with ECG of 06-DEC-2022 22:40, Fusion complexes are no longer Present Premature atrial complexes are now Present Left bundle branch block is no longer Present Confirmed by Figueroa Correa ([id number]) on 12/08/2022 8:59:21 AM Referred By: REFERRED SELF Confirmed By:Davonte Correa
[2022-12-08] MEDS ORDERED: STAT IV Infusion **Titration per Protocol STA ×2 (09:23→09:28)
[2022-12-08] MEDS ORDERED: NOREPINEPHRINE/D5W 4 MG/250 ML IV ONE (09:26)
[2022-12-08] MEDS ORDERED: ONDANSETRON INJ 2 MG/ML 2 ML VIAL IV PRN (09:28)
[2022-12-08] MEDS ORDERED: ONDANSETRON 4 MG OD TAB SL PRN (09:28)
[2022-12-08] MEDS ORDERED: LORazepam 0.5 MG TAB PO PRN (09:28)
[2022-12-08] MEDS ORDERED: LORazepam 2 MG/1 ML VIAL IV PRN (09:28)
[2022-12-08] MEDS ORDERED: MoRPHine SULF/NSS 1MG/ML 100MG/100ML IV ONE (09:28)
[2022-12-08] MEDS ORDERED: MoRPHine BOLUS from BAG IV PRN (09:28)
[2022-12-08] MEDS: MoRPHine SULF/NSS 100 MG/100 ML BAG IV SCH (09:38)
[2022-12-08] MEDS: NOREPINEPHRINE/D5W 4 MG/250 ML PLCT IV SCH (09:45)
[2022-12-08] MEDS: SCOPOLAMINE 1 MG TDSY TD SCH (11:23)
[2022-12-08] MEDS: GLYCOPYRROLATE 0.2 MG/ML VIAL IV PRN ×2 (11:24→15:36)
[2022-12-08] MEDS: CHECK SCOPOLAMINE PATCH PLACEMENT SCH (15:37)
[2022-12-08] MEDS ORDERED: FUROSEMIDE 40 MG/4 ML VIAL IV ONE (16:06)
--- NOTE | 2022-12-08 17:12 | Hospitalist Progress Note ---
Date of Service December 08, 2022 Assessment & Plan (1) Acute respiratory distress: Plan: per Dr. Cartagena's notes with addendum: 77-year-old male with past med significant for hyperlipidemia, hx of hypernatremia, recurrent aspiration pneumonia, COPD, vocal cord leukoplakia, dysphagia, history of severe epistaxis s/p sphenopalatine artery embolization, history of CAD, left bundle branch, hypertension, , severe protein energy malnutrition, sensorineural hearing loss, iron deficiency anemia, s/p PEG tube, s/p aortic valve replacement, s/p CABG, history of nasopharyngeal cancer s/p chemoradiation, recent history of COPD exacerbation secondary to Pseudomonas c urrently admitted to the ICU after ROSC achieved after cardiac arrest in the setting of acute respiratory distress and septic shock. Acute respiratory distress Acute on chronic respiratory failure with hypoxia and hypercapnia Acute COPD exacerbation Presented with shortness of breath and noted to be in acute respiratory failure secondary to COPD exacerbation and possible aspiration pneumonia Subsequently complained to have chest pain and required cardiopulmonary resuscitation as below Required intubation and placement in ICU Has been on Antibiotics IV meropenem Nebulized bronchodilator and steroid as below Appreciate pressurised container filler input and recommendation Remains intubated and sedated Remains on conditional code and awaiting EEG to further evaluate management plan Discussed with the family members Remains stable but critical EEG showed evidence of normal specific encephalopathy of moderate severity Discussed with the pressurised container filler-likely planned extubation sometime later after discussion with the family members 12/08 extubated transitioned to comfort measures continue Morphine drip Lasix IV ordered for volume overload, comfort Septic shock Recurrent aspiration pneumonia Complicated by COPD exacerbation Currently on pressors Levophed and vasopressin-trying to wean off pressors as of this morning 12/06/2022 IV hydrocortisone required Levophed Cardiac arrest with ROSC Postcardiac arrest History of CABG and bioprosthetic aortic valve replacement Presented with respiratory failure and following decompensation of the respiratory status chest pain and cardiac arrest was noted Required CPR and vasopressors with return of ROSC on 12/03 Seen by interventional cardiology for EKG changes thought mostly from septic shock Follow echocardiogram- showed LVH, grade 1 diastolic dysfunction, moderately dilated IVC, no wall motion abnormalities CTA chest- with no noted PE History of chronic aspiration History of nasopharyngeal cancer s/p chemoradiation s/p PEG tube Malnutrition Has PEG tube History of severe epistaxis s/p sphenopalatine artery embolization Diet: NPO currently, has PEG tube DVT prophylaxis: Heparin subcu Disposition: Currently in ICU CODE STATUS: DNR Admission and Anticipated Discharge Date Admission Date: December 03, 2022 Subjective ff up for comfort measures, s/p cardiac arrest, etc seen resting in bed, comfortable lethargic (+) audible crackles but no signs of distress, pain friends at bedside Review of Systems Review of Systems: Unobtainable due to reduced consciousness Physical Exam Physical Exam: General-not in distress Lungs- (+) crackles Heart- normal rate, regular rhythm; no murmurs Extremities- no pretibial edema, no calf tenderness Neuro- lethargic Results & Data Results & Data Vital Signs (Past 12 Hours) Vital Signs Temp Pulse Resp BP Pulse Ox O2 Del Method O2 Flow Rate 12/08/22 15:00 36.5 C 68 11 L 95 12/08/22 14:00 36.4 C L 68 16 94 12/08/22 13:01 36.4 C L 74 15 98 12/08/22 13:01 141/70 H 12/08/22 13:00 36.4 C L 70 24 96 12/08/22 12:01 36.6 C 74 13 97 12/08/22 12:01 69/48 L 12/08/22 12:00 36.6 C 72 14 96 12/08/22 11:00 36.6 C 70 17 94 12/08/22 11:00 159/78 H 12/08/22 10:00 36.7 C 66 14 100 Oxymask 2 12/08/22 10:00 104/54 L 12/08/22 09:24 76/52 L 12/08/22 09:24 36.8 C 59 L 13 97 12/08/22 09:00 36.8 C 68 14 98 12/08/22 09:00 99/59 L 12/08/22 08:00 36.9 C 74 16 98 12/08/22 08:00 154/97 H 12/08/22 07:00 36.8 C 72 21 98 CPAP 12/08/22 08:00 74 12/08/22 08:00 12/08/22 08:27 80 21 99 12/08/22 06:01 126/84 12/08/22 06:01 36.8 C 72 20 98 12/08/22 06:00 36.8 C 72 20 98 FiO2 12/08/22 15:00 12/08/22 14:00 12/08/22 13:01 12/08/22 13:01 12/08/22 13:00 12/08/22 12:01 12/08/22 12:01 12/08/22 12:00 12/08/22 11:00 12/08/22 11:00 12/08/22 10:00 12/08/22 10:00 12/08/22 09:24 12/08/22 09:24 12/08/22 09:00 12/08/22 09:00 12/08/22 08:00 12/08/22 08:00 12/08/22 07:00 40 12/08/22 08:00 12/08/22 08:00 40 12/08/22 08:27 40 12/08/22 06:01 12/08/22 06:01 12/08/22 06:00 all noted and reviewed including below
[2022-12-09] MEDS: CHECK SCOPOLAMINE PATCH PLACEMENT SCH ×3 (00:16→16:43)
[2022-12-09] MEDS: NOREPINEPHRINE/D5W 4 MG/250 ML PLCT IV SCH (05:00)
--- NOTE | 2022-12-09 17:29 | Hospitalist Progress Note ---
Date of Service December 09, 2022 Assessment & Plan (1) Acute respiratory distress: Plan: per Dr. Cartagena's notes with addendum: 77-year-old male with past med significant for hyperlipidemia, hx of hypernatremia, recurrent aspiration pneumonia, COPD, vocal cord leukoplakia, dysphagia, history of severe epistaxis s/p sphenopalatine artery embolization, history of CAD, left bundle branch, hypertension, , severe protein energy malnutrition, sensorineural hearing loss, iron deficiency anemia, s/p PEG tube, s/p aortic valve replacement, s/p CABG, history of nasopharyngeal cancer s/p chemoradiation, recent history of COPD exacerbation secondary to Pseudomonas c urrently admitted to the ICU after ROSC achieved after cardiac arrest in the setting of acute respiratory distress and septic shock. Acute respiratory distress Acute on chronic respiratory failure with hypoxia and hypercapnia Acute COPD exacerbation Presented with shortness of breath and noted to be in acute respiratory failure secondary to COPD exacerbation and possible aspiration pneumonia Subsequently complained to have chest pain and required cardiopulmonary resuscitation as below Required intubation and placement in ICU Has been on Antibiotics IV meropenem Nebulized bronchodilator and steroid as below Appreciate associate professor of theology input and recommendation Remains intubated and sedated Remains on conditional code and awaiting EEG to further evaluate management plan Discussed with the family members Remains stable but critical EEG showed evidence of normal specific encephalopathy of moderate severity Discussed with the associate professor of theology-likely planned extubation sometime later after discussion with the family members 12/08 extubated transitioned to comfort measures continue Morphine drip Lasix IV ordered for volume overload, comfort 12/09 additional lasix 20mg IV continue Morphine drip Septic shock Recurrent aspiration pneumonia Complicated by COPD exacerbation Currently on pressors Levophed and vasopressin-trying to wean off pressors as of this morning 12/06/2022 IV hydrocortisone required Levophed Cardiac arrest with ROSC Postcardiac arrest History of CABG and bioprosthetic aortic valve replacement Presented with respiratory failure and following decompensation of the respiratory status chest pain and cardiac arrest was noted Required CPR and vasopressors with return of ROSC on 12/03 Seen by interventional cardiology for EKG changes thought mostly from septic shock Follow echocardiogram- showed LVH, grade 1 diastolic dysfunction, moderately dilated IVC, no wall motion abnormalities CTA chest- with no noted PE History of chronic aspiration History of nasopharyngeal cancer s/p chemoradiation s/p PEG tube Malnutrition Has PEG tube History of severe epistaxis s/p sphenopalatine artery embolization Diet: NPO currently, has PEG tube DVT prophylaxis: Heparin subcu Disposition: Currently in ICU CODE STATUS: DNR Admission and Anticipated Discharge Date Admission Date: December 03, 2022 Subjective ff up for comfort measures, etc appears comfortable not in distress very faint audible crackles no signs of pain son and friend at the bedside no other new symptoms Review of Systems Review of Systems: all noted and negative except for above Physical Exam Physical Exam: General-not in distress Lungs- (+) mild crackles Heart- normal rate, rhyhtm Extremities- no pretibial edema, no calf tenderness Neuro- lethargic Results & Data Results & Data Vital Signs (Past 12 Hours) Vital Signs O2 Del Method O2 Flow Rate 12/09/22 10:00 Oxymask 2
[2022-12-09] MEDS: MoRPHine SULF/NSS 100 MG/100 ML BAG IV SCH ×2 (18:28→21:55)
[2022-12-10] MEDS: NOREPINEPHRINE/D5W 4 MG/250 ML PLCT IV SCH (00:40)
[2022-12-10] MEDS: CHECK SCOPOLAMINE PATCH PLACEMENT SCH ×3 (00:47→17:35)
[2022-12-10] MEDS: GLYCOPYRROLATE 0.2 MG/ML VIAL IV PRN ×3 (00:50→20:54)
--- NOTE | 2022-12-10 17:00 | Hospitalist Progress Note ---
Date of Service December 10, 2022 Assessment & Plan (1) Acute respiratory distress: Plan: per Dr. Cartagena's notes with addendum: 77-year-old male with past med significant for hyperlipidemia, hx of hypernatremia, recurrent aspiration pneumonia, COPD, vocal cord leukoplakia, dysphagia, history of severe epistaxis s/p sphenopalatine artery embolization, history of CAD, left bundle branch, hypertension, , severe protein energy malnutrition, sensorineural hearing loss, iron deficiency anemia, s/p PEG tube, s/p aortic valve replacement, s/p CABG, history of nasopharyngeal cancer s/p chemoradiation, recent history of COPD exacerbation secondary to Pseudomonas c urrently admitted to the ICU after ROSC achieved after cardiac arrest in the setting of acute respiratory distress and septic shock. Acute respiratory distress Acute on chronic respiratory failure with hypoxia and hypercapnia Acute COPD exacerbation Presented with shortness of breath and noted to be in acute respiratory failure secondary to COPD exacerbation and possible aspiration pneumonia Subsequently complained to have chest pain and required cardiopulmonary resuscitation as below Required intubation and placement in ICU Has been on Antibiotics IV meropenem Nebulized bronchodilator and steroid as below Appreciate display card writer input and recommendation Remains intubated and sedated Remains on conditional code and awaiting EEG to further evaluate management plan Discussed with the family members Remains stable but critical EEG showed evidence of normal specific encephalopathy of moderate severity Discussed with the display card writer-likely planned extubation sometime later after discussion with the family members 12/08 extubated transitioned to comfort measures continue Morphine drip Lasix IV ordered for volume overload, comfort 12/09 additional lasix 20mg IV continue Morphine drip 12/10 appears comfortable continue Morphine drip Septic shock Recurrent aspiration pneumonia Complicated by COPD exacerbation Currently on pressors Levophed and vasopressin-trying to wean off pressors as of this morning 12/06/2022 IV hydrocortisone required Levophed Cardiac arrest with ROSC Postcardiac arrest History of CABG and bioprosthetic aortic valve replacement Presented with respiratory failure and following decompensation of the respiratory status chest pain and cardiac arrest was noted Required CPR and vasopressors with return of ROSC on 12/03 Seen by interventional cardiology for EKG changes thought mostly from septic shock Follow echocardiogram- showed LVH, grade 1 diastolic dysfunction, moderately dilated IVC, no wall motion abnormalities CTA chest- with no noted PE History of chronic aspiration History of nasopharyngeal cancer s/p chemoradiation s/p PEG tube Malnutrition Has PEG tube History of severe epistaxis s/p sphenopalatine artery embolization Diet: NPO currently, has PEG tube DVT prophylaxis: Heparin subcu Disposition: Currently in ICU CODE STATUS: DNR Admission and Anticipated Discharge Date Admission Date: December 03, 2022 Subjective ff up for comfort measures status only seen with friend Tyler at bedside patient comfortable, not in distress no signs of pain no other symptoms Review of Systems Review of Systems: Unobtainable due to reduced consciousness Physical Exam Physical Exam: not in distress (+) mild crackles (+) generalized edema Results & Data Results & Data Vital Signs (Past 12 Hours) Vital Signs O2 Del Method O2 Flow Rate 12/10/22 08:00 Oxymask 2
[2022-12-10] MEDS: MoRPHine SULF/NSS 100 MG/100 ML BAG IV SCH (20:29)
[2022-12-11] MEDS: CHECK SCOPOLAMINE PATCH PLACEMENT SCH ×2 (00:34→08:12)
[2022-12-11] MEDS: GLYCOPYRROLATE 0.2 MG/ML VIAL IV PRN ×2 (01:10→05:04)
[2022-12-11] MEDS: SCOPOLAMINE 1 MG TDSY TD SCH (12:06)
--- NOTE | 2022-12-11 13:19 | Hospitalist Progress Note ---
Date of Service December 11, 2022 Assessment & Plan (1) Acute respiratory distress: Plan: per Dr. Cartagena's notes with addendum: 77-year-old male with past med significant for hyperlipidemia, hx of hypernatremia, recurrent aspiration pneumonia, COPD, vocal cord leukoplakia, dysphagia, history of severe epistaxis s/p sphenopalatine artery embolization, history of CAD, left bundle branch, hypertension, , severe protein energy malnutrition, sensorineural hearing loss, iron deficiency anemia, s/p PEG tube, s/p aortic valve replacement, s/p CABG, history of nasopharyngeal cancer s/p chemoradiation, recent history of COPD exacerbation secondary to Pseudomonas c urrently admitted to the ICU after ROSC achieved after cardiac arrest in the setting of acute respiratory distress and septic shock. Acute respiratory distress Acute on chronic respiratory failure with hypoxia and hypercapnia Acute COPD exacerbation Presented with shortness of breath and noted to be in acute respiratory failure secondary to COPD exacerbation and possible aspiration pneumonia Subsequently complained to have chest pain and required cardiopulmonary resuscitation as below Required intubation and placement in ICU Has been on Antibiotics IV meropenem Nebulized bronchodilator and steroid as below Appreciate welding rod coater input and recommendation Remains intubated and sedated Remains on conditional code and awaiting EEG to further evaluate management plan Discussed with the family members Remains stable but critical EEG showed evidence of normal specific encephalopathy of moderate severity Discussed with the welding rod coater-likely planned extubation sometime later after discussion with the family members 12/08 extubated transitioned to comfort measures continue Morphine drip Lasix IV ordered for volume overload, comfort 12/09 additional lasix 20mg IV continue Morphine drip 12/10 appears comfortable continue Morphine drip 12/12 patient pronounced at 12 noon offered condolences to son Anthony and friend Tyler Septic shock Recurrent aspiration pneumonia Complicated by COPD exacerbation Currently on pressors Levophed and vasopressin-trying to wean off pressors as of this morning 12/06/2022 IV hydrocortisone required Levophed Cardiac arrest with ROSC Postcardiac arrest History of CABG and bioprosthetic aortic valve replacement Presented with respiratory failure and following decompensation of the respiratory status chest pain and cardiac arrest was noted Required CPR and vasopressors with return of ROSC on 12/03 Seen by interventional cardiology for EKG changes thought mostly from septic shock Follow echocardiogram- showed LVH, grade 1 diastolic dysfunction, moderately dilated IVC, no wall motion abnormalities CTA chest- with no noted PE History of chronic aspiration History of nasopharyngeal cancer s/p chemoradiation s/p PEG tube Malnutrition Has PEG tube History of severe epistaxis s/p sphenopalatine artery embolization Admission and Anticipated Discharge Date Admission Date: December 03, 2022 Subjective ff up for comfort measures, etc comfortable no signs of distress, pain Review of Systems Review of Systems: Unobtainable due to reduced consciousness Physical Exam Physical Exam: not in distress (+) mild crackles (+) generalized e chelsy Results & Data Results & Data Vital Signs (Past 12 Hours) Vital Signs O2 Del Method O2 Flow Rate 12/11/22 07:15 Oxymask 2
--- NOTE | 2022-12-11 17:06 | Discharge Summary ---
Discharge Summary Date of Service December 11, 2022 Notes For Next Care Provider Medication Changes From Visit patient Admission HPI Per Admitting Provider 77-year-old male with past med significant for hyperlipidemia, hx of hypernatremia, recurrent aspiration pneumonia, COPD, vocal cord leukoplakia, dysphagia, history of severe epistaxis s/p sphenopalatine artery embolization, history of CAD, left bundle branch, hypertension, , severe protein energy malnutrition, sensorineural hearing loss, iron deficiency anemia, s/p PEG tube, s/p aortic valve replacement, s/p CABG, history of nasopharyngeal cancer s/p chemoradiation, recent history of COPD exacerbation secondary to Pseudomonas, recently in the hospital for acute respiratory failure secondary to aspiration pneumonia was brought in for respiratory distress. Currently s/p intubated. Was in septic shock patient and had a cardiac arrest with no pulse . After CPR and vasopressors ROSC was obtained. Heart alert was also called because of EKG changes and seen by interventional cardiology and thought to be mostly from sepsis. As per son patient was apparently doing fine. Ambulating ok. But in afternoon he suddenly became sob and was gurgling. He tried to cough up stuff but was not improving and EMS was called and brought in here. Patient was DNR last admissions but son now thinks his Father in current situation may want to be full code. PMH as mentioned above. PSH. colonoscopy, CABG, EGD, right shoulder reconstruction, nasal endoscopy, tonsillectomy, cataract surgery, replacement of aortic valve with bioprosthetic aortic valve, surgical removal of erupted tooth. Social history. 1 pack a day for 50 years seems. Quit in 2013 no alcohol use. No drug use. Currently lives with his son Family history. Mother had arthritis. Father had liver cancer Admission Exam Per Admitting Provider General- s/p intubated Head- atraumatic Eyes- eyes non reactive to light Neck- no JVD, Lungs- clear to auscultation bibasilar crackles, no wheezing Heart- regular rhythm; no murmur, no gallop. Abdomen- normal bowel sounds, soft, no distension. PEG tube site no erythema or drainage seen Extremities- no edema or erythema seen. Neuro- s/p intubation. Skin- warm & dry Principal Dx & Hospital Course #1 = Principal Diagnosis (1) Acute respiratory distress: per Dr. Cartagena's notes with addendum: 77-year-old male with past med significant for hyperlipidemia, hx of hypernatremia, recurrent aspiration pneumonia, COPD, vocal cord leukoplakia, dysphagia, history of severe epistaxis s/p sphenopalatine artery embolization, history of CAD, left bundle branch, hypertension, , severe protein energy malnutrition, sensorineural hearing loss, iron deficiency anemia, s/p PEG tube, s/p aortic valve replacement, s/p CABG, history of nasopharyngeal cancer s/p chemoradiation, recent history of COPD exacerbation secondary to Pseudomonas currently admitted to the ICU after ROSC achieved after cardiac arrest in the setting of acute respiratory distress and septic shock. Acute respiratory distress Acute on chronic respiratory failure with hypoxia and hypercapnia Acute COPD exacerbation Presented with shortness of breath and noted to be in acute respiratory failure secondary to COPD exacerbation and possible aspiration pneumonia Subsequently complained to have chest pain and required cardiopulmonary resuscitation as below Required intubation and placement in ICU Has been on Antibiotics IV meropenem Nebulized bronchodilator and steroid as below Appreciate chief wharfinger input and recommendation Remains intubated and sedated Remains on conditional code and awaiting EEG to further evaluate management plan Discussed with the family members Remains stable but critical EEG showed evidence of normal specific encephalopathy of moderate severity Discussed with the chief wharfinger-likely planned extubation sometime later after discussion with the family members 12/08 extubated transitioned to comfort measures continue Morphine drip Lasix IV ordered for volume overload, comfort 12/09 additional lasix 20mg IV continue Morphine drip 12/10 appears comfortable continue Morphine drip 12/12 patient pronounced at 12 noon offered condolences to son Anthony and friend Tyler Septic shock Recurrent aspiration pneumonia Complicated by COPD exacerbation Currently on pressors Levophed and vasopressin-trying to wean off pressors as of this morning 12/06/2022 IV hydrocortisone required Levophed Cardiac arrest with ROSC Postcardiac arrest History of CABG and bioprosthetic aortic valve replacement Presented with respiratory failure and following decompensation of the respiratory status chest pain and cardiac arrest was noted Required CPR and vasopressors with return of ROSC on 12/03 Seen by interventional cardiology for EKG changes thought mostly from septic shock Follow echocardiogram- showed LVH, grade 1 diastolic dysfunction, moderately dilated IVC, no wall motion abnormalities CTA chest- with no noted PE History of chronic aspiration History of nasopharyngeal cancer s/p chemoradiation s/p PEG tube Malnutrition Has PEG tube History of severe epistaxis s/p sphenopalatine artery embolization Discharge Exam patient Updated Medication List Medication Instructions Recorded Confirmed Type atorvastatin 40 mg tablet 40 mg feeding tube QPM 09/18/18 12/03/22 History nitroglycerin 0.4 mg sublingual 0.4 mg sublingual UD PRN Chest Pain 09/18/18 12/03/22 History tablet albuterol sulfate 90 mcg/actuation 2 inh inhalation Q6H PRN shortness 05/06/20 10/25/22 Rx aerosol inhaler (ProAir HFA) of breath or wheezing #8.5 grams nutritional supplements 0.08 1 ea feeding tube DIRECTED 02/19/21 10/26/22 History gram-2 kcal/mL liquid for tube feed (Nutren 2.0) ipratropium 0.5 mg-albuterol 3 mg 3 ml inhalation Q6H PRN Shortness 09/05/22 12/03/22 History (2.5 mg base)/3 mL nebulization Of Breath soln lorazepam 0.5 mg tablet 0.5 mg feeding tube HS PRN Anxiety 10/18/22 12/03/22 History midodrine 2.5 mg tablet 2.5 mg PO TID@0800,1200,1700 #90 11/05/22 12/03/22 Rx tabs Hospital Stay Data Consultations 12/03/22 18:42 Consult Wood Box Maker Stat 12/03/22 18:59 ED Decision to Admit Stat Procedures Performed Operation Date: 12/03/22 18:30 Actual Procedures p Cardiac Heart Alert - Blake Avelar MD, PhD Diagnostic Imagining Performed 12/03/22 18:14 CL Cath Imgs for PACS use only Stat 12/03/22 18:33 CT angio chest PE protocol Stat 12/04/22 08:30 CT head/brain wo con Routine 12/05/22 08:53 MRI Brain [MR brain wo/w con] Routine Total Time Total Time Spent Total Time Spent (In Minutes): <30 minutes
== END 2022-12-11 13:15 | disposition expired | DRG 870 ==
LOC: ED 17:23 → SUATTDRO 19:09 → 1E 19:09 → 3E 12-08 18:18